=== PATIENT | male | born 1935 | race Two or more races ===

== ENCOUNTER 2019-06-05 06:30 | Emergency (ER) | payer BC ==
[~2019-06-05] VITALS: Ht 167.6 cm; Wt 81.6 kg
[2019-06-05 06:33] VITALS: BP 151/67
--- NOTE | 2019-06-05 06:33 | NUR ---
ED Nurse Note: Patient brought in by RA from [facility] c/o lower back pain S/P ground level fall from bed. Patient is moaning in pain. As per EMS, pt is taking eliquis 2.5mg BID. Denies LOC/ KO. Not in any distress.
--- NOTE | 2019-06-05 06:39 | NUR ---
ED Nurse Note: ERMD at bedside.
--- NOTE | 2019-06-05 06:41 | NUR ---
ED Nurse Note: IV line established. Blood and urine specimen collected and sent to lab.
[2019-06-05] MEDS ORDERED: MYRBETRIQ25 MG PO (06:42)
[2019-06-05] MEDS ORDERED: ZOCOR40 MG ORAL (06:42)
[2019-06-05] MEDS ORDERED: FOLGARD TABLET1 EAC1 PO (06:42)
[2019-06-05] MEDS ORDERED: ELIQUIS2.5 MG PO (06:42)
[2019-06-05] MEDS ORDERED: BUPROPION XL150 MG ORAL (06:42)
[2019-06-05] MEDS ORDERED: TRAZODONE HCL50 MG ORAL (06:42)
[2019-06-05] MEDS ORDERED: ESCITALOPRAM OX10 MG ORAL (06:42)
[2019-06-05] MEDS ORDERED: NIFEDIPINE ER90 M2 ORAL (06:42)
[2019-06-05] MEDS ORDERED: HYDRALAZINE HCL50 MG ORAL (06:42)
[2019-06-05] MEDS ORDERED: HYDRALAZINE HC100 MG ORAL (06:42)
[2019-06-05] MEDS ORDERED: Morphine Sulfate 2mg/ml Inj(IV/IM USE ONLY) IVP ONE (06:45)
[2019-06-05] MEDS ORDERED: Morphine Sulfate 4mg/ml Inj (IV USE ONLY) IVP ONE (07:00)
--- NOTE | 2019-06-05 07:09 | NUR ---
ED Nurse Note: Patient resting in bed, no s/s of acute distress.
--- NOTE | 2019-06-05 07:09 | NUR ---
HAND-OFF: Report given to Oumar GOULD. Endorsed plan of care.
[2019-06-05 07:12] LABS: BASOPHILS % (AUTO) 1.1 % (0.0-2.0); EOSINOPHILS % (AUTO) 1.8 % (0.0-3.0); HEMATOCRIT 31.2 % (42.0-52.0); HEMOGLOBIN 10.8 G/DL (14.2-18.0); LYMPHOCYTES % (AUTO) 12.8 % (20.0-45.0); MEAN CORPUSCULAR VOLUME 88 FL (80-99); MONOCYTES % (AUTO) 8.9 % (1.0-10.0); NEUTROPHILS % (AUTO) 75.4 % (45.0-75.0); PLATELET COUNT 189 K/UL (150-450); RED BLOOD COUNT 3.56 M/UL (4.70-6.10); RED CELL DISTRIBUTION WIDTH 12.3 % (11.6-14.8); WHITE BLOOD COUNT 6.8 K/UL (4.8-10.8)
[2019-06-05 07:15] LABS: ANION GAP 11 mmol/L (5-15); BLOOD UREA NITROGEN 39 mg/dL (7-18); CALCIUM 9.6 MG/DL (8.5-10.1); CARBON DIOXIDE 26 MMOL/L (21-32); CHLORIDE 107 MMOL/L (98-107); CREATININE 2.1 MG/DL (0.55-1.30); POTASSIUM 3.7 MMOL/L (3.5-5.1); SODIUM 143 MMOL/L (136-145)
[2019-06-05 07:18] LABS: INR 0.9 (0.9-1.1)
[2019-06-05 07:20] LABS: ALANINE AMINOTRANSFERASE 24 U/L (12-78); ALBUMIN 3.5 G/DL (3.4-5.0); ALBUMIN/GLOBULIN RATIO 1.2 (1.0-2.7); ALKALINE PHOSPHATASE 84 U/L (46-116); ASPARTATE AMINO TRANSFERASE 19 U/L (15-37); BILIRUBIN,TOTAL 0.5 MG/DL (0.2-1.0)
--- NOTE | 2019-06-05 08:11 | NUR ---
ED Nurse Note: Patient taken to CT
--- NOTE | 2019-06-05 08:40 | NUR ---
ED Nurse Note: Patient returned from CT
[2019-06-05 08:45] VITALS: BP 143/74
--- NOTE | 2019-06-05 09:12 | Diagnostic Imaging Report ---
EXAM: CT Lumbar Spine Without Intravenous Contrast CLINICAL HISTORY: FALL TECHNIQUE: Axial computed tomography images of the lumbar spine without intravenous contrast. CTDI is 21 mGy and DLP is 713 mGy-cm. One or more of the following dose reduction techniques were used: automated exposure control, adjustment of the mA and/or kV according to patient size, use of iterative reconstruction technique. COMPARISON: No relevant prior studies available. FINDINGS: Vertebrae: There is mild cortical lucency in the anterior vertebral body of T12 with mild loss of vertebral body height, suspicious for an acute 10% compression fracture of the inferior endplate. No additional fractures or malalignment is identified. If note is made of moderate sigmoid diverticulosis without diverticulitis. Discs/spinal canal/neural foramina: No acute findings. No spinal canal stenosis. Soft tissues: Unremarkable. IMPRESSION: Findings suspicious for an acute 10% inferior endplate compression fracture of T12. If indicated MRI may be useful for confirmation. No additional fractures malalignment or spinal stenosis identified.
--- NOTE | 2019-06-05 09:14 | Diagnostic Imaging Report ---
EXAM: CT Head Without Intravenous Contrast CLINICAL HISTORY: FALL TECHNIQUE: Axial computed tomography images of the head/brain without intravenous contrast. CTDI is 60 to mGy and DLP is 1394 mGy-cm. One or more of the following dose reduction techniques were used: automated exposure control, adjustment of the mA and/or kV according to patient size, use of iterative reconstruction technique. COMPARISON: No relevant prior studies available. FINDINGS: Brain: There is a chronic lacunar infarct in left basal ganglia. No acute infarcts identified. No hemorrhage. No significant white matter disease. Ventricles: Unremarkable. No ventriculomegaly. Bones/joints: Unremarkable. No acute fracture. Soft tissues: Unremarkable. Sinuses: Unremarkable as visualized. No acute sinusitis. Mastoid air cells: Unremarkable as visualized. No mastoid effusion. IMPRESSION: No acute findings in the head/brain.
--- NOTE | 2019-06-05 09:17 | Diagnostic Imaging Report ---
EXAM: CT Pelvis Without Intravenous Contrast CLINICAL HISTORY: FALL TECHNIQUE: Axial computed tomography images of the pelvis without intravenous contrast. CTDI is 7 to mGy and DLP is 540 mGy-cm. One or more of the following dose reduction techniques were used: automated exposure control, adjustment of the mA and/or kV according to patient size, use of iterative reconstruction technique. COMPARISON: No relevant prior studies available. FINDINGS: Bowel: Incidental note is made of mild sigmoid diverticulosis without diverticulitis. There is also mild constipation. No obstruction. Appendix: No findings to suggest acute appendicitis. Intraperitoneal space: Unremarkable. No free air. No significant fluid collection. Bladder: Unremarkable. No stones. Reproductive: Unremarkable as visualized. Bones/joints: No acute fracture. No dislocation. Soft tissues: Unremarkable. Lymph nodes: Unremarkable. No enlarged lymph nodes. IMPRESSION: 1. No evidence of pelvic fracture. 2. Mild constipation
--- NOTE | 2019-06-05 09:25 | NUR ---
ED Nurse Note: Dr. Smith at bedside
--- NOTE | 2019-06-05 09:36 | Emergency Room Report ---
History of Present Illness General Chief Complaint: Multiple Trauma/Fall Source: Patient, Medical Record Present Illness HPI 83-year-old male presents ED for evaluation. Brought in by EMS from senior care facility. Had a ground-level fall this morning. Landed on his back. Complaining of back and hip pain. Denies hitting his head or LOC. Is on Eliquis. Pain is 10 out of 10, sharp, nonradiating. No other aggravating relieving factors. Denies any other associated symptoms Allergies: Coded Allergies: No Known Allergies (Unverified , 06/05/19) Patient History Past Medical History: HTN Past Surgical History: none Pertinent Family History: none Social History: Denies: smoking, alcohol use, drug use Immunizations: UTD Reviewed Nursing Documentation: PMH: Agreed; PSxH: Agreed Nursing Documentation-PMH Hx Hypertension: Yes Review of Systems All Other Systems: negative except mentioned in HPI Physical Exam Vital Signs Date Time Temp Pulse Resp B/P (MAP) Pulse Ox O2 Delivery O2 Flow Rate FiO2 06/05/19 06:26 98.1 98 18 151/67 (95) 96 Room Air Sp02 EP Interpretation: reviewed, normal General Appearance: no apparent distress, alert, GCS 15, non-toxic Head: normocephalic, atraumatic Eyes: bilateral eye normal inspection, bilateral eye PERRL ENT: hearing grossly normal, normal pharynx, no angioedema, normal voice Neck: full range of motion, supple/symm/no masses Respiratory: chest non-tender, lungs clear, normal breath sounds, speaking full sentences Cardiovascular #1: regular rate, rhythm, no edema Cardiovascular #2: 2+ carotid (R), 2+ carotid (L), 2+ radial (R), 2+ radial (L) , 2+ dorsalis pedis (R), 2+ dorsalis pedis (L) Gastrointestinal: normal bowel sounds, non tender, soft, non-distended, no guarding, no rebound Rectal: deferred Genitourinary: normal inspection, vertebral tenderness Musculoskeletal: back normal, normal range of motion, gait/station normal, non- tender Neurologic: alert, motor strength/tone normal, oriented x3, sensory intact, responsive, speech normal Psychiatric: judgement/insight normal, memory normal, mood/affect normal, no suicidal/homicidal ideation Reflexes: 3+ bicep (R), 3+ bicep (L), 3+ tricep (R), 3+ tricep (L), 3+ knee (R) , 3+ knee (L) Skin: no rash Lymphatic: no adenopathy Medical Decision Making Diagnostic Impression: Primary Impression: Compression fracture of T12 vertebra Qualified Codes: S22.080A - Wedge compression fracture of t11-T12 vertebra, initial encounter for closed fracture Additional Impression: Fall Qualified Codes: W19.XXXA - Unspecified fall, initial encounter ER Course Hospital Course 83-year-old male presents with back pain status post fall Differential diagnosis includes-appendicitis, cholecystitis, small bowel obstruction, gastritis, Clinical course Patient placed on stretcher. After initial history and physical I ordered labs , pain medications and CTs Labs - no leukocytosis, BUN/Cr elevated, LFTs normal CT head and pelvis no acute process CT L-spine T12 copression fracture On reassessment symptoms improved. Pain resolved. Discussed findings with patient. I offered option for admission but patient states he would prefer to be discharged back to senior care facility. 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 Safe for discharge with close outpatient follow-up I feel this is a highly complex case requiring extensive working including EKG/ Rhythm strip, Xray/CT/US, Blood/urine lab work, repeat exams while in ED, and administration of strong opiates/narcotics for pain control, admission to hospital or close patient follow up. Diagnosis - compression fracture of T12, fall Stable and discharged to SNF. Followup with PMD/ortho. Return to ED if symptoms recur or worsen Labs Test 06/05/19 06:43 White Blood Count 6.8 K/UL (4.8-10.8) Red Blood Count 3.56 M/UL (4.70-6.10) Hemoglobin 10.8 G/DL (14.2-18.0) Hematocrit 31.2 % (42.0-52.0) Mean Corpuscular Volume 88 FL (80-99) Mean Corpuscular Hemoglobin 30.2 PG (27.0-31.0) Mean Corpuscular Hemoglobin Concent 34.5 G/DL (32.0-36.0) Red Cell Distribution Width 12.3 % (11.6-14.8) Platelet Count 189 K/UL (150-450) Mean Platelet Volume 6.7 FL (6.5-10.1) Neutrophils (%) (Auto) 75.4 % (45.0-75.0) Lymphocytes (%) (Auto) 12.8 % (20.0-45.0) Monocytes (%) (Auto) 8.9 % (1.0-10.0) Eosinophils (%) (Auto) 1.8 % (0.0-3.0) Basophils (%) (Auto) 1.1 % (0.0-2.0) Prothrombin Time 9.4 SEC (9.30-11.50) Prothromb Time International Ratio 0.9 (0.9-1.1) Activated Partial Thromboplast Time 27 SEC (23-33) Sodium Level 143 MMOL/L (136-145) Potassium Level 3.7 MMOL/L (3.5-5.1) Chloride Level 107 MMOL/L (98-107) Carbon Dioxide Level 26 MMOL/L (21-32) Anion Gap 11 mmol/L (5-15) Blood Urea Nitrogen 39 mg/dL (7-18) Creatinine 2.1 MG/DL (0.55-1.30) Estimat Glomerular Filtration Rate mL/min (>60) Glucose Level 90 MG/DL (74-106) Calcium Level 9.6 MG/DL (8.5-10.1) Total Bilirubin 0.5 MG/DL (0.2-1.0) Aspartate Amino Transf (AST/SGOT) 19 U/L (15-37) Alanine Aminotransferase (ALT/SGPT) 24 U/L (12-78) Alkaline Phosphatase 84 U/L (46-116) Total Protein 6.4 G/DL (6.4-8.2) Albumin 3.5 G/DL (3.4-5.0) Globulin 2.9 g/dL Albumin/Globulin Ratio 1.2 (1.0-2.7) CT/MRI/US Diagnostic Results CT/MRI/US Diagnostic Results #1: Imaging Test Ordered: CT head Impression No acute process CT/MRI/US Diagnostic Results #2: Imaging Test Ordered: CT L-spine Impression Vertebrae: There is mild cortical lucency in the anterior vertebral body of T12 with mild loss of vertebral body height, suspicious for an acute 10% compression fracture of the inferior endplate. No additional fractures or malalignment is identified. If note is made of moderate sigmoid diverticulosis without diverticulitis. Discs/spinal canal/neural foramina: No acute findings. No spinal canal stenosis. Soft tissues: Unremarkable. CT/MRI/US Diagnostic Results #3: Imaging Test Ordered: CT pelvis Impression No acute process Last Vital Signs Date Time Temp Pulse Resp B/P (MAP) Pulse Ox O2 Delivery O2 Flow Rate FiO2 06/05/19 08:45 98.0 77 18 143/74 100 Room Air Status: improved Disposition: XFER SNF Condition: Stable Scripts Lidocaine Patch* (Lidoderm Patch*) 1 Each Adh..patch 1 PATCH TOPIC DAILY, #7 PATCH 0 Refills Patch(es) may remain in place for up to 12 hours in any 24-hour period. Prov: Epi Smith MD 06/05/19 Acetaminophen With Codeine (T#3) (TYLENOL #3 TAB*) Y Tab 1 TAB ORAL Q8H PRN for For Pain for 3 Days, #12 TAB Prov: Epi Smith MD 06/05/19 Referrals: NON PHYSICIAN (PCP) Epi Smith MD Jun 05, 2019 09:36
[2019-06-05] MEDS ORDERED: LIDODERM700 M1 TOPIC (11:21)
[2019-06-05] MEDS ORDERED: ACETAMINOPHEN-1 EAC1 ORAL (11:21)
[2019-06-05 11:25] VITALS: BP 138/78
== END 2019-06-05 11:25 ==
LOC: EDBD 06:30 → EMR 07:32
DX: S22.080A Wedge compression fracture of T11-T12 vertebra, initial encounter for closed fracture (principal); W19.XXXA Unspecified fall, initial encounter; Y92.9 Unspecified place or not applicable; I10 Essential (primary) hypertension; Z79.01 Long term (current) use of anticoagulants
CPT/HCPCS: 36415; 70450; 72131; 72192; 80053; 85025; 85610; 85730; 96374; 99284; J2270

== ENCOUNTER 2019-08-06 01:50 | Inpatient (IN) | payer BC ==
[~2019-08-06] VITALS: Ht 167.6 cm; Wt 41.3 kg
[2019-08-06] VITALS (8 sets, daily range): BP systolic 137–155; BP diastolic 49–99
[~2019-08-06 01:50] MED LIST: ACETAMINOPHEN-1 EAC1 ORAL; BUPROPION XL150 MG ORAL; ELIQUIS2.5 MG PO; ESCITALOPRAM OX10 MG ORAL; FOLGARD TABLET1 EAC1 PO; HYDRALAZINE HC100 MG ORAL; HYDRALAZINE HCL50 MG ORAL; LIDODERM700 M1 TOPIC; MYRBETRIQ25 MG PO; NIFEDIPINE ER90 M2 ORAL; TRAZODONE HCL50 MG ORAL; ZOCOR40 MG ORAL
[2019-08-06] MEDS ORDERED: LORazepam Inj 2mg/ml 1ml IV ONE (02:00)
--- NOTE | 2019-08-06 02:00 | NUR ---
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 Pt appears anxious and restless at this time. Pt is aaox1 which is his baseline per EMS and breathing is labored. Pt placed on shelter monitor. Will continue to monitor.
--- NOTE | 2019-08-06 02:00 | NUR ---
ED Nurse Note: Per [facility] it is unknown if he hit his head, but no loss of consciousness was reported. Pt has abrasion to top of head and multiple bruises throughout extremities. Pt is able to move all extremities and has no complaints and does not grimace in pain.
--- NOTE | 2019-08-06 02:03 | Emergency Room Report ---
History of Present Illness General Chief Complaint: Multiple Trauma/Fall Source: Medical Record, EMS Present Illness HPI Disclaimer: Please note that this report is being documented using DRAGON technology. This can lead to erroneous entry secondary to incorrect interpretation by the dictating instrument. HPI: 83-year-old Portuguese-speaking male with a history of dementia, hypertension , hyperlipidemia and frequent falls presents for evaluation after a fall at his nursing facility. Apparently he has been having worsening falls over the past few weeks which are worse at night. EMS is unsure of the exact circumstances of today's fall. Unknown if there is head injury though there appears to be an abrasion over the top of his scalp. The patient is oriented to self only and can provide no significant history. He has no complaints. He has bruising over his upper extremities bilaterally but moving all extremities. He does not know why he is in the emergency department and has no complaints at this time. PMH: Dementia, hypertension, hyperlipidemia, frequent falls, CAD, strokes PSH: Reviewed documentation Allergies: Reviewed documentation Social Hx: Cannot obtain from patient COVID-19 risk:Contact w/high r: No COVID-19 risk:Travel to affect: No Has patient experienced spencer: No Allergies: Coded Allergies: No Known Allergies (Unverified , 06/05/19) Nursing Documentation-PMH Past Medical History: No History, Except For Hx Hypertension: Yes Review of Systems All Other Systems: limited - Due to dementia Physical Exam Vital Signs Date Time Temp Pulse Resp B/P (MAP) Pulse Ox O2 Delivery O2 Flow Rate FiO2 08/06/19 01:52 98.4 66 18 140/58 (85) 98 Room Air General: Awake, speaking nonsensically. Intermittent periods where he is lucid. No complaints. HEENT: Normocephalic, abrasion over the top of the scalp without hematoma or laceration. No tenderness or soft tissue swelling over the facial bones. EOMI. PERRLA. No septal hematoma. No malocclusion Neck: Supple, trachea midline. Arrives without cervical collar Chest Wall: No tenderness, no deformity, no crepitus CV: RRR. S1 and S2 normal. No murmur appreciated Resp: Normal work of breathing. No cough, wheezing or crackles appreciated Abd: Soft, nontender, nondistended Skin: Intact. Surgical scars over the torso are clean dry and intact. There are extensive bruising over the upper and lower extremities bilaterally. No skin breakdown MSK: Normal tone and bulk. No obvious deformity. Moving all extremities. No tenderness on palpation even over the areas of ecchymosis. Neuro: Awake, oriented to self only. Mostly nonsensical speech. Periods of lucency where he answers questions appropriately. Cannot provide any history. Medical Decision Making Diagnostic Impression: Primary Impression: Dehydration Additional Impressions: Falls frequently Anemia UTI (urinary tract infection) ER Course 83-year-old male presents for evaluation of frequent falls from a [facility] facility. He had 2 falls this evening unknown whether or not there was head injury. Patient appears to be on Eliquis according to his medication list. He is awake though oriented to self only. This may be his baseline as reported by EMS; will contact nursing facility for further history. Will obtain screening labs and send patient for noncontrast CT scan of the head. The injuries to the upper extremities appear old and are at different stages of healing. He does not appear to have any pain on palpation or manipulation of the extremities over the ecchymotic regions. Can advance work-up as needed. Patient is DNR with limited interventions only Laboratory Tests Test 08/06/19 02:00 08/06/19 02:55 White Blood Count 15.3 K/UL (4.8-10.8) H Red Blood Count 2.85 M/UL (4.70-6.10) L Hemoglobin 8.6 G/DL (14.2-18.0) L Hematocrit 25.1 % (42.0-52.0) L Mean Corpuscular Volume 88 FL (80-99) Mean Corpuscular Hemoglobin 30.2 PG (27.0-31.0) Mean Corpuscular Hemoglobin Concent 34.1 G/DL (32.0-36.0) Red Cell Distribution Width 13.9 % (11.6-14.8) Platelet Count 205 K/UL (150-450) Mean Platelet Volume 6.4 FL (6.5-10.1) L Neutrophils (%) (Auto) % (45.0-75.0) Lymphocytes (%) (Auto) % (20.0-45.0) Monocytes (%) (Auto) % (1.0-10.0) Eosinophils (%) (Auto) % (0.0-3.0) Basophils (%) (Auto) % (0.0-2.0) Differential Total Cells Counted 100 Neutrophils % (Manual) 93 % (45-75) H Lymphocytes % (Manual) 3 % (20-45) L Monocytes % (Manual) 4 % (1-10) Eosinophils % (Manual) 0 % (0-3) Basophils % (Manual) 0 % (0-2) Band Neutrophils 0 % (0-8) Platelet Estimate Adequate Platelet Morphology Normal Hypochromasia 2+ Anisocytosis 1+ Sodium Level 138 MMOL/L (136-145) Potassium Level 4.8 MMOL/L (3.5-5.1) Chloride Level 107 MMOL/L (98-107) Carbon Dioxide Level 19 MMOL/L (21-32) L Anion Gap 12 mmol/L (5-15) Blood Urea Nitrogen 54 mg/dL (7-18) H Creatinine 2.8 MG/DL (0.55-1.30) H Estimated Glomerular Filtration Rate 21.7 mL/min (>60) Glucose Level 115 MG/DL (74-106) H Calcium Level 9.4 MG/DL (8.5-10.1) Urine Color Pale yellow Urine Appearance Slightly cloudy Urine pH 5 (4.5-8.0) Urine Specific Badger 1.020 (1.005-1.035) Urine Protein 3+ (NEGATIVE) H Urine Glucose (UA) Negative (NEGATIVE) Urine Ketones 1+ (NEGATIVE) H Urine Blood 5+ (NEGATIVE) H Urine Nitrite Negative (NEGATIVE) Urine Bilirubin Negative (NEGATIVE) Urine Urobilinogen Normal MG/DL (0.0-1.0) Urine Leukocyte Esterase 1+ (NEGATIVE) H Urine RBC Tntc /HPF (0 - 0) H Urine WBC 5-10 /HPF (0 - 0) H Urine Squamous Epithelial Cells Occasional /LPF Urine Bacteria Occasional /HPF (NONE) Microbiology Date/Time Source Procedure Growth Status 08/06/19 04:45 Nasal Nares - Final Complete 08/06/19 04:45 Nasal Nares - Final Complete EKG Diagnostic Results EKG Time: 04:00 Rate: normal Rhythm: other - Atrial fibrillation ST Segments: no acute changes Other Impression Atrial fibrillation with wide QRS. No ST segment elevation noted. T wave inversions in the precordial leads. Rhythm Strip Diag. Results Rhythm Strip Time: 04:00 EP Interpretation: yes Rate: 70s Rhythm: no PVC's Chest X-Ray Diagnostic Results Chest X-Ray Diagnostic Results : Chest X-Ray Ordered: Yes # of Views/Limited/Complete: 1 View Indication: Other - URI EP Interpretation: Yes Interpretation: no consolidation, no effusion, no pneumothorax, other - Increased vascularity bilaterally Impression: No acute disease Electronically Signed by: Electronically signed by Dr. Checo Pierre CT/MRI/US Diagnostic Results CT/MRI/US Diagnostic Results : Impression Final Report EXAM: CT Head Without Intravenous Contrast CLINICAL HISTORY: INJ TECHNIQUE: Axial computed tomography images of the head/brain without intravenous contrast. CTDI is 53 mGy and DLP is 1179 mGy-cm. One or more of the following dose reduction techniques were used: automated exposure control, adjustment of the mA and/or kV according to patient size, use of iterative reconstruction technique. COMPARISON: 06/05/2019 FINDINGS: Brain: No hemorrhage, herniation, or mass effect. Chronic microvascular ischemic changes. Old lacunar infarct in the left periventricular white matter. Ventricles: No hydrocephalus. Age related cerebral volume loss. Bones/joints: Unremarkable. Soft tissues: Unremarkable. Sinuses: Unremarkable. Mastoid air cells: Clear. IMPRESSION: No acute hemorrhage, hydrocephalus, or mass effect. Radiologist: Alan Pa MD Electronically Signed: 08/06/19 02:42 Study ready at 02:41 and initial results transmitted at 02:42 Reevaluation Time: 03:50 Last Vital Signs Date Time Temp Pulse Resp B/P (MAP) Pulse Ox O2 Delivery O2 Flow Rate FiO2 08/06/19 01:52 98.4 66 18 140/58 (85) 98 Room Air Reevaluation Impression CT of the head does not show evidence of an acute injury or mass. Findings are consistent with chronic microvascular disease and an old lacunar infarct consistent with the patient's history. Labs show an elevation in his baseline creatinine and BUN consistent with mild dehydration. He will receive IV fluids. Discussed these findings with his PMD Dr. Reyes, who states he was also recently treated for an upper respiratory tract infection. Chest x-ray was obtained showing some increased vascularity bilaterally. Will start antibiotics for possible early urinary tract infection or occult pulmonary infection. Flu swab is pending. Patient is in stable condition. Will admit to Dr. Keller at his PMDs request Disposition: ADMITTED INPATIENT Condition: Serious Checo Pierre MD Aug 06, 2019 02:03
[2019-08-06 02:20] LABS: ANION GAP 12 mmol/L (5-15); BLOOD UREA NITROGEN 54 mg/dL (7-18); CALCIUM 9.4 MG/DL (8.5-10.1); CARBON DIOXIDE 19 MMOL/L (21-32); CHLORIDE 107 MMOL/L (98-107); CREATININE 2.8 MG/DL (0.55-1.30); POTASSIUM 4.8 MMOL/L (3.5-5.1); SODIUM 138 MMOL/L (136-145)
--- NOTE | 2019-08-06 02:20 | NUR ---
ED Nurse Note: Pt taken to CT.
[2019-08-06] MEDS ORDERED: VOLTAREN100 G1 TP (02:23)
[2019-08-06] MEDS ORDERED: LISINOPRIL20 MG ORAL (02:23)
[2019-08-06] MEDS ORDERED: PERIGUARD OINT100 GM TP (02:23)
[2019-08-06] MEDS ORDERED: CALCIUM 600 +1 EAC2 PO (02:23)
[2019-08-06] MEDS ORDERED: FLONASE1 SPRAYS NASAL (02:23)
[2019-08-06] MEDS ORDERED: SALONPAS PATCH1 EAC1 TP (02:23)
[2019-08-06] MEDS ORDERED: SENNA8.6 M2 PO (02:23)
[2019-08-06] MEDS ORDERED: VITAMIN B-12500 MC3 SL (02:23)
[2019-08-06] MEDS ORDERED: ADVAIR 500-501 EACH INH (02:23)
[2019-08-06] MEDS ORDERED: SERTRALINE HCL25 MG ORAL (02:23)
[2019-08-06] MEDS ORDERED: FUROSEMIDE20 M1 ORAL (02:23)
[2019-08-06] MEDS ORDERED: FAMOTIDINE20 MG ORAL (02:23)
[2019-08-06] MEDS ORDERED: ACETAMINOPHEN500 M3 ORAL (02:23)
[2019-08-06] MEDS ORDERED: ALBUTEROL2.5 MG/3 M INH (02:23)
[2019-08-06] MEDS ORDERED: ZOFRAN4 M3 ORAL (02:23)
[2019-08-06] MEDS ORDERED: STOOL SOFTENER250 MG PO (02:23)
[2019-08-06] MEDS ORDERED: MULTIVITAMINS1 EAC8 ORAL (02:23)
[2019-08-06] MEDS ORDERED: ASPIR 8181 MG ORAL (02:23)
[2019-08-06 02:39] LABS: HEMATOCRIT 25.1 % (42.0-52.0); HEMOGLOBIN 8.6 G/DL (14.2-18.0); MEAN CORPUSCULAR VOLUME 88 FL (80-99); PLATELET COUNT 205 K/UL (150-450); RED BLOOD COUNT 2.85 M/UL (4.70-6.10); RED CELL DISTRIBUTION WIDTH 13.9 % (11.6-14.8); WHITE BLOOD COUNT 15.3 K/UL (4.8-10.8)
--- NOTE | 2019-08-06 02:43 | Diagnostic Imaging Report ---
EXAM: CT Head Without Intravenous Contrast CLINICAL HISTORY: INJ TECHNIQUE: Axial computed tomography images of the head/brain without intravenous contrast. CTDI is 53 mGy and DLP is 1179 mGy-cm. One or more of the following dose reduction techniques were used: automated exposure control, adjustment of the mA and/or kV according to patient size, use of iterative reconstruction technique. COMPARISON: 06/05/2019 FINDINGS: Brain: No hemorrhage, herniation, or mass effect. Chronic microvascular ischemic changes. Old lacunar infarct in the left periventricular white matter. Ventricles: No hydrocephalus. Age related cerebral volume loss. Bones/joints: Unremarkable. Soft tissues: Unremarkable. Sinuses: Unremarkable. Mastoid air cells: Clear. IMPRESSION: No acute hemorrhage, hydrocephalus, or mass effect.
--- NOTE | 2019-08-06 02:50 | NUR ---
ED Nurse Note: Pt returned from CT.
--- NOTE | 2019-08-06 03:00 | NUR ---
ED Nurse Note: Pt is sleeping at this time and appears comfortable and not restless s/p receiving ativan per ERMD order. No acute distress noted. Will continue to monitor patient.
[2019-08-06 03:04] LABS: APPEARANCE,URINE SLIGHTLY CLOUDY; BILIRUBIN, URINE NEGATIVE (NEGATIVE); COLOR,URINE PALE YELLOW; GLUCOSE, URINE (UA) NEGATIVE (NEGATIVE); KETONES,URINE 1+ (NEGATIVE); LEUKOCYTE ESTERASE ,URINE 1+ (NEGATIVE); NITRITE,URINE NEGATIVE (NEGATIVE); PH,URINE 5 (4.5-8.0); PROTEIN,URINE 3+ (NEGATIVE); UROBILINOGEN,URINE NORMAL MG/DL (0.0-1.0)
--- NOTE | 2019-08-06 04:18 | Diagnostic Imaging Report ---
EXAM: XR Chest, 1 View CLINICAL HISTORY: Cough. TECHNIQUE: Frontal view of the chest. COMPARISON: None. FINDINGS: Lungs: Probable early pulmonary edema mid lower lung zones bilaterally. Subsegmental atelectasis at the left lung base. Pleural space: Small right pleural effusion. No pneumothorax. Heart: Cardiomegaly. Mediastinum: Unremarkable. Bones/joints: Sternotomy wires are noted in place and are intact. Osteopenia. IMPRESSION: Findings most suggestive of incipient congestive heart failure. Clinical correlation is advised.
[2019-08-06] MEDS ORDERED: cefTRIAXone 1 GM in NS 55 ML IVPB ONE (04:30)
--- NOTE | 2019-08-06 05:00 | NUR ---
ED Nurse Note: No acute distress noted. VSS. Pt is sleeping at this time with no signs of pain or being uncomfortable. No respiratory distress. Will continue to monitor pt.
--- NOTE | 2019-08-06 06:15 | NUR ---
ED Nurse Note: Report given to LUIS FERNANDO Lei.
--- NOTE | 2019-08-06 06:40 | NUR ---
ED Nurse Note: Pt is stable for transport to tele unit per ERMD. Pt is sleeping at this time with stable vital signs. No acute distress noted. Pt transported to unit via gurney, connected to monitor with 2 RNs. Pt belongings sent to floor with pt.
--- NOTE | 2019-08-06 06:45 | NUR ---
ED Nurse Note: Upon transferring pt to bed from [facility] on tele unit pt was woken up and became restless and agitated with labored breathing similar to presentation upon ED arrival. Pt placed on 2L oxygen via nc and oxygen saturation was 97%. Pt BP was 149/58. Pt was arousable to name. Pt appeared more relaxed after oxygen placement. No sign of acute distress upon leaving the floor after transferring pt. ERMD aware of pt status for entire duration of pt in ED and determined stable.
--- NOTE | 2019-08-06 08:05 | NUR ---
NURSE NOTES: Spoke to Dr. Jade, he ordered to change physician to Dr. Echavarria, order were fax and spoke james ER admitting.
[2019-08-06] MEDS ORDERED: Albuterol ud Inhalation HHN PRN (08:15)
[2019-08-06] MEDS ORDERED: Acetaminophen 500mg (ES) tab ORAL SCH (08:15)
[2019-08-06 08:54] LABS: HEMATOCRIT 25.3 % (42.0-52.0); HEMOGLOBIN 8.3 G/DL (14.2-18.0); MEAN CORPUSCULAR VOLUME 89 FL (80-99); PLATELET COUNT 146 K/UL (150-450); RED BLOOD COUNT 2.85 M/UL (4.70-6.10); RED CELL DISTRIBUTION WIDTH 14.3 % (11.6-14.8); WHITE BLOOD COUNT 9.5 K/UL (4.8-10.8)
[2019-08-06] MEDS ORDERED: Eliquis 2.5mg tablet ORAL SCH (09:00)
[2019-08-06 09:18] LABS: ANION GAP 13 mmol/L (5-15); BLOOD UREA NITROGEN 57 mg/dL (7-18); CALCIUM 8.9 MG/DL (8.5-10.1); CARBON DIOXIDE 20 MMOL/L (21-32); CHLORIDE 111 MMOL/L (98-107); CREATININE 2.6 MG/DL (0.55-1.30); POTASSIUM 4.2 MMOL/L (3.5-5.1); SODIUM 144 MMOL/L (136-145)
[2019-08-06 09:34] LABS: ALANINE AMINOTRANSFERASE 51 U/L (12-78); ALBUMIN 3.2 G/DL (3.4-5.0); ALBUMIN/GLOBULIN RATIO 1.2 (1.0-2.7); ALKALINE PHOSPHATASE 92 U/L (46-116); ASPARTATE AMINO TRANSFERASE 65 U/L (15-37); BILIRUBIN,TOTAL 0.4 MG/DL (0.2-1.0); CHOLESTEROL 94 MG/DL (< 200); CREATINE KINASE 497 U/L (26-308); FERRITIN 140 NG/ML (8-388); GAMMA GLUTAMYL TRANSPEPTIDASE 78 U/L (5-85); HDL CHOLESTEROL 56 MG/DL (40-60); PHOSPHORUS 4.8 MG/DL (2.5-4.9); TRIGLYCERIDES 38 MG/DL (30-150)
[2019-08-06 09:54] LABS: % IRON SATURATION 9 % (15-50); IRON 24 ug/dL (50-175); TOTAL IRON BINDING CAPACITY 281 ug/dL (250-450)
[2019-08-06] MEDS: D5NS 1,000 ML IV SCH (09:54)
[2019-08-06] MEDS: Pantoprazole Inj IVP SCH ×2 (09:54→21:32)
[2019-08-06] MEDS: Docusate 250mg cap ORAL SCH (09:54)
[2019-08-06] MEDS: Aspirin EC 81mg tab ORAL SCH (09:54)
--- NOTE | 2019-08-06 11:29 | Consultation ---
DATE OF CONSULTATION: 08/06/2019 PULMONARY CONSULTATION CONSULTING PHYSICIAN: Kimani Hahn M.D. HISTORY OF PRESENT ILLNESS: This is an 83-year-old male with history of hypertension, dementia, hyperlipidemia, who came to the hospital after a fall. He was noted to have a small abrasion on top of the scalp. The patient cannot provide a history. I have been asked to provide pulmonary consultation. PAST MEDICAL HISTORY: Dementia, hypertension, hyperlipidemia, frequent falls, CAD, CVA. PREVIOUS SURGERIES: None. ALLERGIES: None. HOME MEDICATIONS: Reviewed and reconciled in the chart. REVIEW OF SYSTEMS: Not obtainable. PHYSICAL EXAMINATION: GENERAL: Reveals a elderly male with small abrasion on his scalp. VITAL SIGNS: Blood pressure 140/60, heart rate is 84, respirations 18, O2 saturation 100% on room air. HEENT: Unremarkable. LUNGS: Clear breath sounds bilaterally. ABDOMEN: Soft. EXTREMITIES: There is no edema. NEUROLOGIC: Nonfocal. LABORATORY DATA: Lab testing shows normal CBC now with a hemoglobin 8.3, yesterday white count was 15.3. Chemistry is notable for creatinine 2.6. CK 497. Urinalysis shows hematuria. IMAGING STUDIES: The patient underwent a chest x-ray, which showed evidence for mild CHF with atelectasis, left lung base. IMPRESSION: 1. Pleural effusion, right side. 2. Atelectasis. 3. Pulmonary edema, questionable. 4. Hypertension. 5. Hyperlipidemia. 6. . DISCUSSION: Currently, the patient is saturating well on room air. We will not advocate any further diuresis. . We will follow as senior online marketing manager. Kimani Hahn M.D. DR: MERARY JOB#: [id number] CC:
--- NOTE | 2019-08-06 12:19 | Consultation ---
Consult Note Consult Note Mr. Marinelli is a patient in the [facility] that that I was called to assume the primary care . It appears that the patient was being taken care of by in the past so I assume the role of stitch bonding machine tender on this patient 83-year-old Swiss-speaking male with a history of dementia, hypertension, hyperlipidemia and frequent falls presents for evaluation after a fall at his nursing facility. Apparently he has been having worsening falls over the past few weeks which are worse at night. EMS is unsure of the exact circumstances of today's fall. Unknown if there is head injury though there appears to be an abrasion over the top of his scalp. The patient is oriented to self only and can provide no significant history. He has no complaints. He has bruising over his upper extremities bilaterally but moving all extremities. He does not know why he is in the emergency department and has no complaints at this time. PMH: Dementia, hypertension, hyperlipidemia, frequent falls, CAD, strokes Allergies: Reviewed documentation Social Hx: Cannot obtain from patient COVID-19 risk:Contact w/high r: No COVID-19 risk:Travel to affect: No Has patient experienced spencer: No Allergies: Coded Allergies: No Known Allergies (Unverified , 06/05/19) Patient examined. Discussed with RN. Patient is not a historian. Rashawn reviewed. . Assessment/Plan Frequent falls Acute renal failure with underlying dehydration Anemia, underlying etiology unclear UTI (urinary tract infection) Toxic metabolic encephalopathy We will keep n.p.o. until mental status improves ST evaluation Low IV hydration 2D echocardiogram Kidney ultrasound Monitor renal parameters Avoid nephrotoxic's Antibiotics for UTI Continue per consultants Juan Jade MD Aug 06, 2019 12:19
--- NOTE | 2019-08-06 13:15 | NUR ---
NURSE NOTES: Patient noted with Zero output on his condom catheter. Bladder distended and patient frowned when palpated. Patient encouraged to void but having difficulty,initially passed small amount of reddish urine with small clot then turned to tea colored with total of 5o cc urine output. Bladder scan performed and noted 330 ML or residual. Call out to Dr. Jade, awaiting call back. will follow
--- NOTE | 2019-08-06 13:26 | NUR ---
NURSE NOTES: Noted reddish urine with clots and turned to dark yellow, bladder scan was done and noted 330 ml of urine retention. Spoke to Dr. Jade and ordered to insert doshi catheter.
--- NOTE | 2019-08-06 13:47 | NUR ---
NURSE NOTES: Received report from LUIS FERNANDO Gautam. Patient is alert and oriented x 1. Patient is on nasal cannula with no respiratory distress noted. Patient has IV on right AC G-20 saline lock, that is patent and intact. Safety measures in place, bed in locked and lowest position, bed alarm is on, side rails up x 2. Will call Dr. Jade for admission orders. Addendum: 08/06/19 at 1351 by Gin Perez RN Late entry, patient received at 0730
--- NOTE | 2019-08-06 14:00 | NUR ---
NURSE NOTES: Trevino catheter was inserted, no resistance noted during the insertion. Drained dark yellow urine, well tolerated. Will continue to monitor urine output.
[2019-08-06] MEDS: HydrALAZINE 50mg tab ORAL SCH ×2 (14:30→21:30)
--- NOTE | 2019-08-06 15:55 | NUR ---
NURSE NOTES: Patient's urine output is still bloody, Dr. Echavarria made aware and received order to irrigate doshi catheter. 100 cc of sterile water used to irrigate patient's catheter, still draining bloody urine but no blood clots was noted.
--- NOTE | 2019-08-06 16:49 | NUR ---
NURSE NOTES: Received order from Dr. Echavarria to hold eliquis, and may do venous duplex scan. If venous duplex is negative, may have SCD's for DVT prophylaxis.
--- NOTE | 2019-08-06 19:32 | NUR ---
Received report from Gin Grover RN. Pt is in stable condition. Will continue to monitor.
[2019-08-06] MEDS: Sennosides 8.6mg tab ORAL SCH (21:30)
[2019-08-06] MEDS: Acetaminophen 500mg (ES) tab ORAL PRN (21:31)
[2019-08-06] MEDS: Tamsulosin 0.4mg cap ORAL SCH (21:31)
[2019-08-06] MEDS: TraZODone 50mg tab ORAL SCH (21:32)
[2019-08-06] MEDS ORDERED: Morphine Sulfate 2mg/ml Inj(IV/IM USE ONLY) IVP PRN (22:30)
[2019-08-07] VITALS: BP 155/69
[2019-08-07] MEDS: LORazepam Inj 2mg/ml 1ml IV PRN ×2 (01:07→20:01)
[2019-08-07 03:28] LABS: HEMATOCRIT 23.6 % (42.0-52.0); HEMOGLOBIN 7.9 G/DL (14.2-18.0); MEAN CORPUSCULAR VOLUME 89 FL (80-99); PLATELET COUNT 147 K/UL (150-450); RED BLOOD COUNT 2.65 M/UL (4.70-6.10); RED CELL DISTRIBUTION WIDTH 13.8 % (11.6-14.8); WHITE BLOOD COUNT 9.5 K/UL (4.8-10.8)
[2019-08-07 04:00] VITALS: BP 189/88
[2019-08-07] MEDS: D5NS 1,000 ML IV SCH ×2 (04:31→23:21)
[2019-08-07] MEDS: cefTRIAXone 1 GM in D5W 55 ML IVPB SCH (04:39)
[2019-08-07] MEDS: HydrALAZINE 50mg tab ORAL SCH ×4 (06:00→20:41)
--- NOTE | 2019-08-07 06:30 | NUR ---
NURSE NOTES: Pt BP is 192/90, pt is unable to tolerate PO meds (Hydralazine @ 0600), Pt given hydralzine via PIV as ordered. MD aware of pt intolerance to PO meds. Will continue to monitor.
[2019-08-07 07:11] LABS: BASOPHILS % (AUTO) 0.6 % (0.0-2.0); EOSINOPHILS % (AUTO) 0.3 % (0.0-3.0); HEMATOCRIT 24.4 % (42.0-52.0); LYMPHOCYTES % (AUTO) 4.5 % (20.0-45.0); MEAN CORPUSCULAR VOLUME 89 FL (80-99); MONOCYTES % (AUTO) 10.1 % (1.0-10.0); NEUTROPHILS % (AUTO) 84.5 % (45.0-75.0); PLATELET COUNT 144 K/UL (150-450); RED BLOOD COUNT 2.74 M/UL (4.70-6.10); RED CELL DISTRIBUTION WIDTH 14.1 % (11.6-14.8); WHITE BLOOD COUNT 9.3 K/UL (4.8-10.8)
--- NOTE | 2019-08-07 07:41 | NUR ---
NURSE NOTES: Received report from LUIS FERNANDO Oliver. Patient is asleep, alert and oriented x 1-2 Connected to nasal cannula at 2 Lpm with no respiratory distress noted at this time. Iv site on right AC G-20 saline lock, and IV site on right FA g-20 WITH RUNNING IVF of d5NS @ 50cc/hour. Patient resting comfortably on bed, patient is bed bound, safety measures in placed. Side rails up x 2, bed in locked and lowest position. Will continue plan of care.
--- NOTE | 2019-08-07 07:48 | NUR ---
HAND-OFF: Report given to Yi Francis RN. Pt in stable condition.
[2019-08-07 08:00] VITALS: BP 161/61
[2019-08-07] MEDS: Docusate 250mg cap ORAL SCH (09:00)
[2019-08-07] MEDS: Aspirin EC 81mg tab ORAL SCH (09:00)
[2019-08-07] MEDS: Pantoprazole Inj IVP SCH ×2 (09:13→20:42)
--- NOTE | 2019-08-07 10:42 | Pulmonology Progress Note ---
Assessment/Plan Assessment/Plan IMPRESSION: 1. Pleural effusion, right side. 2. Atelectasis. 3. Pulmonary edema, questionable. 4. Hypertension. 5. Hyperlipidemia. DISCUSSION: Currently, the patient is saturating well on room air or low flow O2. I will not advocate any further diuresis. I will follow as sonography technician. Kimani Hahn M.D. Subjective Interval Events: None new Constitutional: Reports: no symptoms HEENT: Repors: no symptoms Respiratory: Reports: no symptoms Cardiovascular: Reports: no symptoms Gastrointestinal/Abdominal: Reports: no symptoms Allergies: Coded Allergies: No Known Allergies (Unverified , 06/05/19) Objective Last 24 Hour Vital Signs Date Time Temp Pulse Resp B/P (MAP) Pulse Ox O2 Delivery O2 Flow Rate FiO2 08/07/19 09:00 2.0 08/07/19 09:00 Nasal Cannula 2.0 08/07/19 08:00 98.4 74 17 161/61 (94) 95 08/07/19 08:00 66 08/07/19 07:45 69 20 97 Nasal Cannula 2.0 28 08/07/19 07:40 97 Nasal Cannula 2.0 28 08/07/19 06:56 192/98 08/07/19 04:39 189/100 08/07/19 04:00 2.0 08/07/19 04:00 98.2 67 18 189/88 (121) 97 08/07/19 04:00 79 08/07/19 00:00 64 08/07/19 00:00 2.0 08/07/19 00:00 98.2 67 18 155/69 (97) 97 08/06/19 21:30 153/99 08/06/19 21:00 Room Air 08/06/19 20:18 97 Nasal Cannula 2.0 28 08/06/19 20:18 68 18 97 Nasal Cannula 2.0 28 08/06/19 20:00 96.6 67 18 153/99 (117) 97 08/06/19 20:00 2.0 08/06/19 20:00 65 08/06/19 17:41 71 150/68 08/06/19 16:00 62 08/06/19 16:00 2.0 08/06/19 16:00 97.4 71 18 150/68 (95) 97 08/06/19 15:00 150/68 (95) 08/06/19 14:30 174/89 08/06/19 13:06 Nasal Cannula 2.0 08/06/19 12:00 2.0 08/06/19 12:00 59 08/06/19 12:00 96.1 67 20 151/58 (89) 98 Intake and Output 08/06/19 08/07/19 19:00 07:00 Intake Total 1400 ml Output Total 1800 ml 800 ml Balance -400 ml -800 ml Intake Oral 1400 ml Output Urine Total 1800 ml 800 ml # Voids 3 # Bowel Movements 1 General Appearance: no acute distress HEENT: normocephalic Respiratory/Chest: chest wall non-tender Cardiovascular: normal peripheral pulses Abdomen: normal bowel sounds Microbiology Date/Time Source Procedure Growth Status 08/06/19 04:45 Nasal Nares - Final Complete 08/06/19 04:45 Nasal Nares - Final Complete 08/06/19 04:00 Rectum Received Laboratory Tests 08/06/19 13:50: Urine Random Sodium 79 08/07/19 02:50: White Blood Count 9.5, Red Blood Count 2.65L, Hemoglobin 7.9L, Hematocrit 23.6L , Mean Corpuscular Volume 89, Mean Corpuscular Hemoglobin 29.7, Mean Corpuscular Hemoglobin Concent 33.4, Red Cell Distribution Width 13.8, Platelet Count 147L, Mean Platelet Volume 6.3L, Neutrophils (%) (Auto) , Lymphocytes (%) (Auto) , Monocytes (%) (Auto) , Eosinophils (%) (Auto) , Basophils (%) (Auto) , Differential Total Cells Counted 100, Neutrophils % (Manual) 84H, Lymphocytes % (Manual) 8L, Monocytes % (Manual) 8, Eosinophils % (Manual) 0, Basophils % ( Manual) 0, Band Neutrophils 0, Platelet Estimate DecreasedL, Platelet Morphology Normal, Hypochromasia 1+ 08/07/19 05:50: White Blood Count 9.3, Red Blood Count 2.74L, Hemoglobin 8.0L, Hematocrit 24.4L , Mean Corpuscular Volume 89, Mean Corpuscular Hemoglobin 29.1, Mean Corpuscular Hemoglobin Concent 32.7, Red Cell Distribution Width 14.1, Platelet Count 144L, Mean Platelet Volume 6.1L, Neutrophils (%) (Auto) 84.5H, Lymphocytes (%) (Auto) 4.5L, Monocytes (%) (Auto) 10.1H, Eosinophils (%) (Auto) 0.3, Basophils (%) (Auto) 0.6 Current Medications Medications (Trade) Dose Ordered Sig/Kristine Route PRN Reason Start Time Stop Time Status Last Admin Dose Admin Acetaminophen (Tylenol) 500 mg Q6H PRN ORAL Mild Pain/Temp > 100.5 08/06/19 08:56 09/05/19 08:55 08/06/19 21:31 Albuterol Sulfate (Proventil) 2.5 mg Q4H PRN HHN Shortness of Breath 08/06/19 08:15 08/11/19 08:14 Aspirin (Ecotrin) 81 mg DAILY ORAL 08/06/19 09:00 09/20/19 08:59 08/06/19 09:54 Ceftriaxone Sodium 1 gm/ Dextrose 55 ml @ 110 mls/hr Q24H IVPB 08/07/19 05:00 08/14/19 04:59 08/07/19 04:39 Dextrose/Sodium Chloride 1,000 ml @ 50 mls/hr Q20H IV 08/06/19 08:15 09/05/19 08:14 08/07/19 04:31 Docusate Sodium (Colace) 250 mg DAILY ORAL 08/06/19 09:00 09/05/19 08:59 08/06/19 09:54 Escitalopram Oxalate (Lexapro) 5 mg DAILY ORAL 08/06/19 09:00 09/05/19 08:59 08/06/19 09:54 Hydralazine HCl (Apresoline) 10 mg Q4H PRN IV BP over 160 systolic 08/06/19 12:30 11/04/19 12:29 08/07/19 04:39 Hydralazine HCl (Apresoline) 50 mg EVERY 8 HOURS ORAL 08/06/19 14:00 11/04/19 13:59 08/07/19 06:56 Iron Sucrose 100 mg/Sodium Chloride 55 ml @ 200 mls/hr BEDTIME IV 08/06/19 21:00 08/15/19 21:17 08/06/19 21:46 Lorazepam (Ativan 2mg/ml 1ml) 1 mg Q4H PRN IV For Anxiety or agitation 08/06/19 22:30 08/13/19 22:29 08/07/19 01:07 Morphine Sulfate (Morphine Sulfate) 1 mg Q4HR PRN IVP Pain 08/06/19 22:30 08/13/19 22:29 08/06/19 23:01 Nifedipine (Procardia XL) 30 mg BID ORAL 08/06/19 18:00 09/05/19 17:59 08/06/19 17:41 Pantoprazole (Protonix) 40 mg EVERY 12 HOURS IVP 08/06/19 09:00 09/05/19 08:59 08/07/19 09:13 Sennosides (Senokot) 8.6 mg BEDTIME ORAL 08/06/19 21:00 09/05/19 20:59 08/06/19 21:30 Tamsulosin HCl (Flomax) 0.4 mg BEDTIME ORAL 08/06/19 21:00 09/05/19 20:59 08/06/19 21:31 Trazodone HCl (Desyrel) 50 mg BEDTIME ORAL 08/06/19 21:00 09/05/19 20:59 08/06/19 21:32 Kimani Hahn MD Aug 07, 2019 10:42
[2019-08-07] MEDS: Acetaminophen 500mg (ES) tab ORAL PRN (10:47)
--- NOTE | 2019-08-07 11:37 | Nephrology Progress Note ---
Assessment/Plan Problem List: (1) Renal failure (ARF), acute on chronic (2) Falls frequently (3) UTI (urinary tract infection) Assessment: and hematuria (4) Anemia (5) Dehydration (6) Encephalopathy due to metabolic factor or toxin Assessment Frequent falls Acute renal failure with underlying dehydration Anemia, underlying etiology unclear UTI (urinary tract infection) Toxic metabolic encephalopathy Plan We will keep n.p.o. until mental status improves ST evaluation Low IV hydration 2D echocardiogram Kidney ultrasound Monitor renal parameters Avoid nephrotoxic's Antibiotics for UTI Continue per consultants Subjective ROS Limited/Unobtainable: Yes Objective Objective Last 24 Hour Vital Signs Date Time Temp Pulse Resp B/P (MAP) Pulse Ox O2 Delivery O2 Flow Rate FiO2 08/07/19 09:00 2.0 08/07/19 09:00 Nasal Cannula 2.0 08/07/19 08:00 98.4 74 17 161/61 (94) 95 08/07/19 08:00 66 08/07/19 07:45 69 20 97 Nasal Cannula 2.0 28 08/07/19 07:40 97 Nasal Cannula 2.0 28 08/07/19 06:56 192/98 08/07/19 04:39 189/100 08/07/19 04:00 2.0 08/07/19 04:00 98.2 67 18 189/88 (121) 97 08/07/19 04:00 79 08/07/19 00:00 64 08/07/19 00:00 2.0 08/07/19 00:00 98.2 67 18 155/69 (97) 97 08/06/19 21:30 153/99 08/06/19 21:00 Room Air 08/06/19 20:18 97 Nasal Cannula 2.0 28 08/06/19 20:18 68 18 97 Nasal Cannula 2.0 28 08/06/19 20:00 96.6 67 18 153/99 (117) 97 08/06/19 20:00 2.0 08/06/19 20:00 65 08/06/19 17:41 71 150/68 08/06/19 16:00 62 08/06/19 16:00 2.0 08/06/19 16:00 97.4 71 18 150/68 (95) 97 08/06/19 15:00 150/68 (95) 08/06/19 14:30 174/89 3/21/20 13:06 Nasal Cannula 2.0 08/06/19 12:00 2.0 08/06/19 12:00 59 08/06/19 12:00 96.1 67 20 151/58 (89) 98 Intake and Output 08/06/19 08/07/19 19:00 07:00 Intake Total 1400 ml Output Total 1800 ml 800 ml Balance -400 ml -800 ml Intake Oral 1400 ml Output Urine Total 1800 ml 800 ml # Voids 3 # Bowel Movements 1 Current Medications Medications (Trade) Dose Ordered Sig/Kristine Route PRN Reason Start Time Stop Time Status Last Admin Dose Admin Acetaminophen (Tylenol) 500 mg Q6H PRN ORAL Mild Pain/Temp > 100.5 08/06/19 08:56 09/05/19 08:55 08/07/19 10:47 Albuterol Sulfate (Proventil) 2.5 mg Q4H PRN HHN Shortness of Breath 08/06/19 08:15 08/11/19 08:14 Aspirin (Ecotrin) 81 mg DAILY ORAL 08/06/19 09:00 09/20/19 08:59 08/06/19 09:54 Ceftriaxone Sodium 1 gm/ Dextrose 55 ml @ 110 mls/hr Q24H IVPB 08/07/19 05:00 08/14/19 04:59 08/07/19 04:39 Dextrose/Sodium Chloride 1,000 ml @ 50 mls/hr Q20H IV 08/06/19 08:15 09/05/19 08:14 08/07/19 04:31 Docusate Sodium (Colace) 250 mg DAILY ORAL 08/06/19 09:00 09/05/19 08:59 08/06/19 09:54 Escitalopram Oxalate (Lexapro) 5 mg DAILY ORAL 08/06/19 09:00 09/05/19 08:59 08/06/19 09:54 Hydralazine HCl (Apresoline) 10 mg Q4H PRN IV BP over 160 systolic 08/06/19 12:30 11/04/19 12:29 08/07/19 04:39 Hydralazine HCl (Apresoline) 50 mg EVERY 8 HOURS ORAL 08/06/19 14:00 11/04/19 13:59 08/07/19 06:56 Iron Sucrose 100 mg/Sodium Chloride 55 ml @ 200 mls/hr BEDTIME IV 08/06/19 21:00 08/15/19 21:17 08/06/19 21:46 Lorazepam (Ativan 2mg/ml 1ml) 1 mg Q4H PRN IV For Anxiety or agitation 08/06/19 22:30 08/13/19 22:29 08/07/19 01:07 Morphine Sulfate (Morphine Sulfate) 1 mg Q4HR PRN IVP Pain 08/06/19 22:30 08/13/19 22:29 08/06/19 23:01 Nifedipine (Procardia XL) 30 mg BID ORAL 08/06/19 18:00 09/05/19 17:59 08/06/19 17:41 Pantoprazole (Protonix) 40 mg EVERY 12 HOURS IVP 08/06/19 09:00 09/05/19 08:59 08/07/19 09:13 Sennosides (Senokot) 8.6 mg BEDTIME ORAL 08/06/19 21:00 09/05/19 20:59 08/06/19 21:30 Tamsulosin HCl (Flomax) 0.4 mg BEDTIME ORAL 08/06/19 21:00 09/05/19 20:59 08/06/19 21:31 Trazodone HCl (Desyrel) 50 mg BEDTIME ORAL 08/06/19 21:00 09/05/19 20:59 08/06/19 21:32 Laboratory Tests 08/06/19 13:50: Urine Random Sodium 79 08/07/19 02:50: White Blood Count 9.5, Red Blood Count 2.65L, Hemoglobin 7.9L, Hematocrit 23.6L , Mean Corpuscular Volume 89, Mean Corpuscular Hemoglobin 29.7, Mean Corpuscular Hemoglobin Concent 33.4, Red Cell Distribution Width 13.8, Platelet Count 147L, Mean Platelet Volume 6.3L, Neutrophils (%) (Auto) , Lymphocytes (%) (Auto) , Monocytes (%) (Auto) , Eosinophils (%) (Auto) , Basophils (%) (Auto) , Differential Total Cells Counted 100, Neutrophils % (Manual) 84H, Lymphocytes % (Manual) 8L, Monocytes % (Manual) 8, Eosinophils % (Manual) 0, Basophils % ( Manual) 0, Band Neutrophils 0, Platelet Estimate DecreasedL, Platelet Morphology Normal, Hypochromasia 1+ 08/07/19 05:50: White Blood Count 9.3, Red Blood Count 2.74L, Hemoglobin 8.0L, Hematocrit 24.4L , Mean Corpuscular Volume 89, Mean Corpuscular Hemoglobin 29.1, Mean Corpuscular Hemoglobin Concent 32.7, Red Cell Distribution Width 14.1, Platelet Count 144L, Mean Platelet Volume 6.1L, Neutrophils (%) (Auto) 84.5H, Lymphocytes (%) (Auto) 4.5L, Monocytes (%) (Auto) 10.1H, Eosinophils (%) (Auto) 0.3, Basophils (%) (Auto) 0.6 Height (Feet): 5 Height (Inches): 6.00 Weight (Pounds): 160 General Appearance: no apparent distress, lethargic, confused Cardiovascular: normal rate Respiratory/Chest: decreased breath sounds Abdomen: soft Juan Jade MD Aug 07, 2019 11:37
[2019-08-07 12:00] VITALS: BP 145/55
--- NOTE | 2019-08-07 12:30 | History and Physical Report ---
DATE OF ADMISSION: 08/06/2019 CHIEF COMPLAINT: Fall, acute renal failure, encephalopathy. HISTORY OF PRESENT ILLNESS: The patient is an 83-year-old male, known to me from the senior living facility. He previously resided at [facility] and was discharged from the [facility] and transferred to an assisted living. He apparently sustained a fall while at the assisted living, was transferred to the emergency room. On evaluation there, his head CT was negative for any type of bleed or stroke. He had evidence of acute renal failure and was hypertensive. His UA showed too numerous to count rbc's. He was also noted to be anemic. The patient is now admitted for further evaluation and care. PAST MEDICAL HISTORY: As above. PAST SURGICAL HISTORY: Unknown. CURRENT MEDICATIONS: Reconciled and reviewed. ALLERGIES: None. FAMILY HISTORY: None. SOCIAL HISTORY: There is no known history of tobacco, ethanol, or drugs. REVIEW OF SYSTEMS: From the patient is unobtainable as he is confused. PHYSICAL EXAMINATION: VITAL SIGNS: Temperature 96.4, pulse 67, respirations 20, and blood pressure 143/61. GENERAL: The patient is well-developed, no apparent distress. He is somewhat somnolent and withdrawn. He has opened his eyes, but is mostly nonverbal. HEENT: His pupils are equal, round, and reactive to light. Oropharynx clear. NECK: Supple. No adenopathy noted. No jugular venous distention. HEART: Regular rate and rhythm. LUNGS: Clear. ABDOMEN: Soft, nontender, nondistended. EXTREMITIES: Without clubbing, cyanosis, or edema. NEUROLOGIC: The patient is unable to comply with the neurologic exam. He does move his upper extremities and he does respond, but does not answer any questions. LABORATORY DATA: Sodium 138, potassium 4.8, BUN 54, creatinine 2.8. White count was 15, hemoglobin 8.6. UA showed too numerous to count rbc's. CT head was negative. Chest x-ray showed CHF. ASSESSMENT: This is an elderly male with a history of dementia, hypertension, hypertensive heart disease, admitted with acute renal failure and a possible fall versus syncopal episode. PLAN: 1. Cautious hydration. 2. Monitor volume status closely. 3. Empiric antibiotic therapy. 4. possible pneumonia. 5. Consider renal ultrasound if renal function does not improve. 6. We will try to obtain records from the assisted living. Iggy Echavarria M.D. DR: SALBADOR JOB#: [id number] CC:
--- NOTE | 2019-08-07 14:00 | NUR ---
NURSE NOTES: Patient kept on pulling his catheter out, also catheter has been draining bloody urine with blood clots. Secured order to Dr. Echavarria for restrains on both wrist.
--- NOTE | 2019-08-07 14:10 | NUR ---
NURSE NOTES: Drained almost 300 ml of bloody urine, bladder irrigation was done. Patient was pale looking, BP of 145/55. Informed Dr. Echavarria, ordered stat CBC. Will follow up.
--- NOTE | 2019-08-07 14:20 | NUR ---
NURSE NOTES: Trevino catheter was changed, bladder irrigation was done. Informed Dr. Echavarria, received an order for consult to Dr. Calzada. Urology cart prepared to omar.
[2019-08-07 15:00] LABS: HEMATOCRIT 23.3 % (42.0-52.0); HEMOGLOBIN 7.5 G/DL (14.2-18.0); MEAN CORPUSCULAR VOLUME 90 FL (80-99); PLATELET COUNT 168 K/UL (150-450); RED BLOOD COUNT 2.59 M/UL (4.70-6.10); RED CELL DISTRIBUTION WIDTH 14.3 % (11.6-14.8)
--- NOTE | 2019-08-07 15:05 | NUR ---
NURSE NOTES: Doshi catheter was replaced by Dr. Calzada, using [id number]-20. Ordered doshi catheter irrigation every 2 hours and PRN. Still drainging bloody urine with blood clots. Relayed CBC result to Dr. Echavarria.
[2019-08-07] MEDS ORDERED: Morphine Sulfate 2mg/ml Inj(IV/IM USE ONLY) IVP PRN (15:45)
[2019-08-07 16:00] VITALS: BP 161/78
--- NOTE | 2019-08-07 16:00 | NUR ---
NURSE NOTES: Hemoglobin level was 7.5 from 8.0. Received an order from Dr. Echavarria to trab Addendum: 08/07/19 at 1726 by Gin Perez RN transfuse 1 unit PRBC, called Nilda Vitor to get a consent for transfusion, he's patient's next of kin but just left a message and informed him about the procedure. Will follow-up.
--- NOTE | 2019-08-07 16:28 | NUR ---
NURSE NOTES: Spoke with Lucy of [facility] regarding patients POA Vitor Munguia. Per staff they only have one number of Mr. Munguia which is the same as the one we have on file. She Advised to call caregiver Brandt Rueda . Spoke with Brandt stated Mr. Munguia is out of town he said he will contact him and have him call [facility] as soon as possible. Mr. Rueda aware we needed POA for blood transfusion consent. Will follow.
--- NOTE | 2019-08-07 16:59 | NUR ---
NURSE NOTES: Dr. Salas on the floor doing rounds made aware patient unable to contact POA regarding Blood transfusion consent. stated may obtain consent from Patients caregiver.
--- NOTE | 2019-08-07 18:00 | NUR ---
NURSE NOTES: Patient is agitated and complaining of pain. Morphine 0.5 mg was given at 1530. Scanned the medication but wasn't able to scan it. Called pharmacy and spoke to Tricia to inform her about what happened.
[2019-08-07] MEDS: Morphine Sulfate 2mg/ml Inj(IV/IM USE ONLY) IVP PRN (18:06)
--- NOTE | 2019-08-07 18:45 | Consultation ---
DATE OF CONSULTATION: 08/07/2019 CONSULTING PHYSICIAN: Miki Calzada M.D. REFERRING PHYSICIAN: Iggy Echavarria M.D. REASON FOR CONSULTATION: For evaluation of hematuria. HISTORY OF PRESENT ILLNESS: This is an 83-year-old male who is a resident of a detention facility. He was admitted to the hospital because of fall and was noted to have acute kidney injury, encephalopathy. Trevino catheter was placed at the time of admission. Apparently, the patient was confused and he pulled on the catheter and gross hematuria was noted. Urology evaluation has been requested. I am not able to get any history from the patient. Most of the history was obtained from the chart. PAST MEDICAL HISTORY: Significant for above. Also history of coronary artery disease and hypertension and GERD. PAST SURGICAL HISTORY: Unknown. CURRENT MEDICATIONS: Here in the hospital, the patient is on Rocephin, lorazepam, Desyrel, Flomax, Senokot, Procardia, hydralazine, Naprosyn, Protonix, Colace, Lexapro, Proventil. Apparently, he was on Eliquis and Ecotrin, which has been stopped. ALLERGIES: No known drug allergies. SOCIAL HISTORY: Again, the patient lives in a [facility]. Smoking history is unknown. REVIEW OF SYSTEMS: Unable to obtain. FAMILY HISTORY: Unable to obtain. PHYSICAL EXAMINATION: GENERAL: Elderly male, confused. VITAL SIGNS: Temperature is 97.5, blood pressure is 160/88, pulse is 70, respirations are 18. HEENT: Normocephalic. NECK: Supple. ABDOMEN: Soft. GENITOURINARY: Reveals normal phallus. His Trevino is in place with grossly bloody urine. EXTREMITIES: No clubbing or cyanosis. LABORATORY DATA: Admission UA showed too numerous to count rbc's, 5 to 10 wbc's, 2+ protein. White count is 11.0, hemoglobin 7.5, platelets 168. BUN is 57, creatinine 2.6. I believe his baseline creatinine is closer to 2. DIAGNOSTIC IMAGING STUDIES: Reviewed. I do not see any renal imaging. IMPRESSION: 1. Gross hematuria, presumably secondary to Trevino trauma. 2. BPH. 3. Urinary retention. 4. Neurogenic bladder. 5. Pyuria. 6. Proteinuria. 7. Renal insufficiency, which appears to be acute on chronic. 8. Rule out urethral stricture. PLAN AND DISCUSSION: The patient was evaluated at the bedside. It appeared that the existing Trevino catheter was not in the bladder. I attempted to irrigate it, it was unsuccessful. I did attempt to push it back into the bladder and there was resistance and I believe it may have been held up at possibly stricture possibly of the prostatic median lobe. The catheter was removed. The urethra was gently dilated and I was able to pass a 20-Croatian coude catheter into the bladder. There was return of blood-tinged urine. I then hand irrigated the catheter with 500 mL of normal saline. The urine slowly cleared. There were minimal clots. I did not see any active bleeding. The above was discussed with the nursing staff. For now, I would leave the Trevino catheter indwelling. The nursing staff will hand irrigate it every few hours and p.r.n. as needed. Anticoagulation has already been held and he is to continue with Flomax as ordered. I will also add finasteride 5 mg daily. We will also check a renal ultrasound and the patient's renal function will need to be monitored. He is to also continue with antibiotics as ordered. Any other recommendations will be forthcoming. Thank you for this consultation. Miki Calzada M.D. DR: ROBERT JOB#: [id number] CC: Rodrigo Quezada M.D. ; FAX#: [phone]
--- NOTE | 2019-08-07 18:50 | NUR ---
NURSE NOTES: Started blood transfusion, verify the order with LUIS FERNANDO [place]. Hooked normal saline for flushing, monitored for adverse reaction. Will continue to monitor.
--- NOTE | 2019-08-07 19:26 | NUR ---
HAND-OFF: Report given to Danielle Mcmanus RN. Blood transfusion is going on, Patient is restless, plan of care endorsed.
--- NOTE | 2019-08-07 19:53 | NUR ---
Dr Echavarria was paged regarding patient's IRON for this evening. Iniquired whether or not he wants it given. Patient is receiving 1 unit PRBC at this time. Awaiting callback.
[2019-08-07 20:00] VITALS: BP 130/52
[2019-08-07] MEDS: Sennosides 8.6mg tab ORAL SCH (20:41)
[2019-08-07] MEDS: Tamsulosin 0.4mg cap ORAL SCH (20:42)
[2019-08-07] MEDS: TraZODone 50mg tab ORAL SCH (20:42)
--- NOTE | 2019-08-07 20:46 | NUR ---
Dr Echavarria ordered do not give Iron dose this evening.
--- NOTE | 2019-08-07 22:34 | NUR ---
ONE UNIT Blood finished transfusing at 21:50, no adverse reactions. Vital signs stable at 142/59, T 98.4, HR 65. RR 16. SpO2 97%. Blood bag was returned to the laboratory blood bank.
[2019-08-08] VITALS: BP 141/63
--- NOTE | 2019-08-08 02:44 | Progress Note ---
DATE: 08/07/2019 CARDIOLOGY PROGRESS NOTE SUBJECTIVE: The patient remains confused. Blood pressure parameters are increasing. He remains on IV fluid hydration. He has not been out of bed. Monitor reveals the possibility of atrial fibrillation, but more likely junctional rhythm with bifascicular block. PHYSICAL EXAMINATION: VITAL SIGNS: Blood pressure 161/78, heart rate 74, respiratory rate 18, and afebrile. LUNGS: Clear. CARDIAC: Regular rhythm and rate. Normal S1 and S2. A 1/6 systolic murmur at apex. ABDOMEN: Soft and nontender. EXTREMITIES: No edema. LABORATORY DATA: White count 11 and hemoglobin 7.5. Potassium 4.2, BUN 57, and creatinine 2.6. LDL cholesterol 29 and total cholesterol 94. TSH 1.4. B12 and folate normal. IMPRESSION: 1. Acute renal failure. 2. Hypovolemia and dehydration. 3. Recurring falls. 4. Valvular cardiomyopathy. 5. Acute on chronic diastolic congestive heart failure. 6. Junctional cardiac rhythm and paroxysmal atrial fibrillation. 7. 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 9. Hypertensive heart disease with labile blood pressure. PLAN: 1. EP evaluation. 2. Possible indication or assessment for pacemaker in view of advanced conduction system disease and recurring falls. 3. Dr. Reyes will assess. 4. Continue cautious hydration. 5. Continue titration of antihypertensives. 6. Monitoring orthostatics. 7. Avoid tight blood pressure control. Gamaliel Salas M.D. DR: TOLU JOB#: [id number] CC:
--- NOTE | 2019-08-08 03:15 | Consultation ---
DATE OF CONSULTATION: 08/06/2019 CARDIOLOGY CONSULTATION CONSULTING PHYSICIAN: Gamaliel Salas M.D. REQUESTING PHYSICIAN: Iggy Echavarria M.D. REASON FOR CONSULTATION: Abnormal electrocardiogram and cardiac rhythm in the setting of recurring falls. HISTORY OF PRESENT ILLNESS: This is an 83-year-old male with underlying dementia and valvular heart disease who has been having frequent falls over the past few weeks, presented following a fall earlier this morning. The patient has limited historical data available, but the patient was noted to have an abrasion at the top of his scalp. The patient has some bruising over his upper extremities. He is confused and only oriented to person, unable to give any other data. PAST MEDICAL HISTORY: 1. Cerebrovascular disease with dementia. 2. 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 3. Hyperlipidemia. 4. Paroxysmal atrial fibrillation. 5. Depressive disorder. 6. Coronary artery disease. 7. History of mitral valve repair. 8. Osteoarthritis. 9. Prostatic hypertrophy. 10. Cerebrovascular accident with cerebral artery occlusion. 11. Macular degeneration. 12. History of intestinal intussusception. 13. Compression fracture. 14. History of radius fracture. 15. Tachy-leilani syndrome. ALLERGIES: Include lactose. MEDICATIONS: Prior to admission, reviewed and reconciled. FAMILY HISTORY: Noncontributory. SOCIAL HISTORY: No record of smoking, alcohol, or substance abuse. Advanced directives, DNR. PHYSICAL EXAMINATION: VITAL SIGNS: Blood pressure 140/60, pulse 66, respirations 18, and afebrile. HEENT: Conjunctivae are pink. Oropharynx clear. NECK: Supple. No jugular venous distention. LUNGS: Clear breath sounds. CARDIAC: Regular rhythm and rate. Normal S1 and S2. A 1/6 systolic murmur at apex. ABDOMEN: Soft and nontender. EXTREMITIES: Without edema. LABORATORY DATA: White count 15, hemoglobin 8.6, and platelets 205,000. Sodium 138, potassium 4.8, bicarb 19, BUN 54, and creatinine 2.8. Urinalysis, too numerous to count red cells and 5 to [address] scan of the brain with no acute process. Chest x-ray with no acute process. EKG reveals a junctional rhythm with right bundle and left anterior superior hemiblock and occasional atrial premature beats. IMPRESSION: Recurring falls, likely multifactorial. The possibility of arrhythmias must be considered in view of his underlying structural heart disease. Other considerations include orthostasis and dehydration, mechanical etiology such as osteoarthritis and spinal stenosis and cerebrovascular limitations due to prior stroke. RECOMMENDATIONS: 1. Echocardiogram. 2. Cardiac monitoring. 3. Titrate cardiovascular regimen to optimize blood pressure parameters. 4. Hydrate cautiously. 5. No diuretics. 6. Check orthostatics. 7. Avoid anticoagulation in view of high risk of falls in this patient despite risk of cardioembolic events as well. 8. We will follow closely with you during this hospital course. Gamaliel Salas M.D. DR: Jg JOB#: [id number] CC:
[2019-08-08 04:00] VITALS: BP 148/60
[2019-08-08] MEDS: cefTRIAXone 1 GM in D5W 55 ML IVPB SCH (04:20)
[2019-08-08] MEDS: HydrALAZINE 50mg tab ORAL SCH ×3 (05:04→20:22)
[2019-08-08] MEDS: LORazepam Inj 2mg/ml 1ml IV PRN ×3 (05:06→19:32)
--- NOTE | 2019-08-08 06:49 | NUR ---
Patient running A Flutter on Telelmetry reading. EKG was done on patient and it showed Sinus Rhythm. Will endorse to tell the Physician this morning.
--- NOTE | 2019-08-08 07:05 | NUR ---
NURSE NOTES: Received report from Fortino/LUIS FERNANDO, Patient is awake, Lying semi-hampton's on bed, resting comfortably. On room 2L nasal canula, No acute distress/SOB noted. Breathing unlabored and even. French speaking, IV on Right FA And Right AC, intact, no bleeding or infiltration noted, D5NS running @50cc/hr. Trevino draining well to gravity. Bed in low position and locked, Bed alarm engaged, Side rails up x3, Call light within reach. Encouraged to use call light when needed. Will continue plan of care.
[2019-08-08 08:00] VITALS: BP 164/84
--- NOTE | 2019-08-08 08:59 | General Progress Note ---
Assessment/Plan Problem List: (1) CHF (congestive heart failure) ICD Codes: I50.9 - Heart failure, unspecified SNOMED: 06490846 (2) Renal failure (ARF), acute on chronic ICD Codes: N17.9 - Acute kidney failure, unspecified; N18.9 - Chronic kidney disease, unspecified SNOMED: 547553229 (3) Encephalopathy due to metabolic factor or toxin SNOMED: 655930472 (4) Gross hematuria ICD Codes: R31.0 - Gross hematuria SNOMED: 948860604 (5) Falls frequently ICD Codes: R29.6 - Repeated falls SNOMED: 090701858 (6) Dehydration ICD Codes: E86.0 - Dehydration SNOMED: 62846704 (7) UTI (urinary tract infection) ICD Codes: N39.0 - Urinary tract infection, site not specified SNOMED: 88133845 (8) Anemia ICD Codes: D64.9 - Anemia, unspecified SNOMED: 077039260 Status: stable, not improved Assessment/Plan: cont current rx repeat cxr o2 resp care iv abx anxiolytics IVF with caution doshi restraints for safety Subjective ROS Limited/Unobtainable: No Constitutional: Reports: malaise, weakness HEENT: Reports: no symptoms Cardiovascular: Reports: no symptoms Respiratory: Reports: cough, shortness of breath Gastrointestinal/Abdominal: Reports: no symptoms Genitourinary: Reports: no symptoms Neurologic/Psychiatric: Reports: anxiety Endocrine: Reports: no symptoms Hematologic/Lymphatic: Reports: anemia Allergies: Coded Allergies: No Known Allergies (Unverified , 06/05/19) Subjective no events. more alert. remains anxious and agitated, trying to get out of bed. no fevers or chills. on o2 and ivf. doshi replaced by . no bleeding Objective Last 24 Hour Vital Signs Date Time Temp Pulse Resp B/P (MAP) Pulse Ox O2 Delivery O2 Flow Rate FiO2 08/08/19 08:00 97.3 67 20 164/84 (110) 99 08/08/19 08:00 2.0 08/08/19 05:04 148/60 08/08/19 04:00 2.0 08/08/19 04:00 98.4 62 20 148/60 (89) 98 08/08/19 04:00 73 3/23/20 00:00 98.6 62 20 141/63 (89) 98 08/08/19 00:00 70 08/07/19 21:00 Nasal Cannula 2.0 08/07/19 20:41 161/78 08/07/19 20:00 2.0 08/07/19 20:00 98.5 80 20 130/52 (78) 98 08/07/19 19:54 78 18 98 Nasal Cannula 2.0 28 08/07/19 19:54 98 Nasal Cannula 2.0 28 08/07/19 18:07 74 161/78 08/07/19 16:00 2.0 08/07/19 16:00 98.1 80 20 161/78 (105) 98 08/07/19 16:00 74 08/07/19 14:46 160/88 08/07/19 12:00 97.5 70 18 145/55 (85) 96 08/07/19 12:00 2.0 08/07/19 12:00 67 08/07/19 09:00 2.0 08/07/19 09:00 Nasal Cannula 2.0 Intake and Output 08/07/19 08/08/19 19:00 07:00 Intake Total 50 ml Output Total 650 ml 500 ml Balance -600 ml -500 ml Intake Oral 50 ml Output Urine Total 650 ml 500 ml # Voids 1 Laboratory Tests 08/07/19 14:30: White Blood Count 11.0H, Red Blood Count 2.59L, Hemoglobin 7.5L, Hematocrit 23.3L, Mean Corpuscular Volume 90, Mean Corpuscular Hemoglobin 29.2, Mean Corpuscular Hemoglobin Concent 32.5, Red Cell Distribution Width 14.3, Platelet Count 168, Mean Platelet Volume 7.2, Neutrophils (%) (Auto) , Lymphocytes (%) ( Auto) , Monocytes (%) (Auto) , Eosinophils (%) (Auto) , Basophils (%) (Auto) , Differential Total Cells Counted 100, Neutrophils % (Manual) 84H, Lymphocytes % (Manual) 10L, Monocytes % (Manual) 6, Eosinophils % (Manual) 0, Basophils % ( Manual) 0, Band Neutrophils 0, Platelet Estimate Adequate, Platelet Morphology Normal, Red Blood Cell Morphology Normal Height (Feet): 5 Height (Inches): 6.00 Weight (Pounds): 160 General Appearance: WD/WN, alert, confused Neck: normal alignment, supple, normal inspection Cardiovascular: normal rate, regular rhythm Respiratory/Chest: chest wall non-tender, lungs clear, normal breath sounds, no respiratory distress, no accessory muscle use Abdomen: normal bowel sounds, non tender, soft, no organomegaly, no mass Edema: no edema noted Arm (L), no edema noted Arm (R), no edema noted Leg (L), no edema noted Leg (R), no edema noted Pedal (L), no edema noted Pedal (R), no edema noted Generalized Neurologic: alert, responsive, disoriented Iggy Echavarria MD Aug 08, 2019 08:59
--- NOTE | 2019-08-08 09:11 | Urology Progress Note ---
Assessment/Plan Status: stable, not improved Assessment/Plan: 1. Gross hematuria, presumably secondary to Doshi trauma. 2. BPH. 3. Urinary retention. 4. Neurogenic bladder. 5. Pyuria. 6. Proteinuria. 7. Renal insufficiency, which appears to be acute on chronic. 8. Rule out urethral stricture. monitor clinically maintain doshi, placed 08/06 hand irrigated and do PRN, minimal clots cont flomax and proscar abx as ordered off anticoagulation restraints cysto at some point voiding trial later d/w nursing staff Subjective Allergies: Coded Allergies: No Known Allergies (Unverified , 06/05/19) Subjective all noted, confused, nurses hand irrigated doshi Objective Last 24 Hour Vital Signs Date Time Temp Pulse Resp B/P (MAP) Pulse Ox O2 Delivery O2 Flow Rate FiO2 08/08/19 08:00 97.3 67 20 164/84 (110) 99 08/08/19 08:00 2.0 08/08/19 05:04 148/60 08/08/19 04:00 2.0 08/08/19 04:00 98.4 62 20 148/60 (89) 98 08/08/19 04:00 73 08/08/19 00:00 98.6 62 20 141/63 (89) 98 08/08/19 00:00 70 08/07/19 21:00 Nasal Cannula 2.0 08/07/19 20:41 161/78 08/07/19 20:00 2.0 08/07/19 20:00 98.5 80 20 130/52 (78) 98 08/07/19 19:54 78 18 98 Nasal Cannula 2.0 28 08/07/19 19:54 98 Nasal Cannula 2.0 28 08/07/19 18:07 74 161/78 08/07/19 16:00 2.0 08/07/19 16:00 98.1 80 20 161/78 (105) 98 08/07/19 16:00 74 08/07/19 14:46 160/88 08/07/19 12:00 97.5 70 18 145/55 (85) 96 08/07/19 12:00 2.0 08/07/19 12:00 67 Intake and Output 08/07/19 08/08/19 19:00 07:00 Intake Total 50 ml Output Total 650 ml 500 ml Balance -600 ml -500 ml Intake Oral 50 ml Output Urine Total 650 ml 500 ml # Voids 1 Microbiology Date/Time Source Procedure Growth Status 08/06/19 04:45 Nasal Nares - Final Complete 08/06/19 04:45 Nasal Nares - Final Complete 08/06/19 04:45 Rectum VRE Culture - Final NO VANCOMYCIN RESISTANT ENTEROCOCCUS ... Complete Current Medications Medications (Trade) Dose Ordered Sig/Kristine Route PRN Reason Start Time Stop Time Status Last Admin Dose Admin Acetaminophen (Tylenol) 500 mg Q6H PRN ORAL Mild Pain/Temp > 100.5 08/06/19 08:56 09/05/19 08:55 08/07/19 10:47 Albuterol Sulfate (Proventil) 2.5 mg Q4H PRN HHN Shortness of Breath 08/06/19 08:15 08/11/19 08:14 Ceftriaxone Sodium 1 gm/ Dextrose 55 ml @ 110 mls/hr Q24H IVPB 08/07/19 05:00 08/14/19 04:59 08/08/19 04:20 Dextrose/Sodium Chloride 1,000 ml @ 50 mls/hr Q20H IV 08/06/19 08:15 09/05/19 08:14 08/07/19 23:21 Docusate Sodium (Colace) 250 mg DAILY ORAL 08/06/19 09:00 09/05/19 08:59 08/06/19 09:54 Escitalopram Oxalate (Lexapro) 5 mg DAILY ORAL 08/06/19 09:00 09/05/19 08:59 08/06/19 09:54 Finasteride (Proscar) 5 mg DAILY ORAL 08/07/19 15:45 11/05/19 15:44 08/07/19 16:33 Hydralazine HCl (Apresoline) 10 mg Q4H PRN IV BP over 160 systolic 08/06/19 12:30 11/04/19 12:29 08/07/19 04:39 Hydralazine HCl (Apresoline) 50 mg EVERY 8 HOURS ORAL 08/06/19 14:00 11/04/19 13:59 08/08/19 05:04 Iron Sucrose 100 mg/Sodium Chloride 55 ml @ 200 mls/hr BEDTIME IV 08/06/19 21:00 3/30/20 21:17 08/06/19 21:46 Lorazepam (Ativan 2mg/ml 1ml) 1 mg Q4H PRN IV For Anxiety or agitation 08/06/19 22:30 08/13/19 22:29 08/08/19 05:06 Morphine Sulfate (Morphine Sulfate) 0.5 mg Q4HR PRN IVP Severe Pain (Pain Scale 7-10) 08/07/19 15:45 08/14/19 15:44 08/07/19 18:06 Nifedipine (Procardia XL) 30 mg BID ORAL 08/06/19 18:00 09/05/19 17:59 08/07/19 18:07 Pantoprazole (Protonix) 40 mg EVERY 12 HOURS IVP 08/06/19 09:00 09/05/19 08:59 08/07/19 20:42 Sennosides (Senokot) 8.6 mg BEDTIME ORAL 08/06/19 21:00 09/05/19 20:59 08/07/19 20:41 Tamsulosin HCl (Flomax) 0.4 mg BEDTIME ORAL 08/06/19 21:00 09/05/19 20:59 08/07/19 20:42 Trazodone HCl (Desyrel) 50 mg BEDTIME ORAL 08/06/19 21:00 09/05/19 20:59 08/07/19 20:42 Laboratory Tests 08/07/19 14:30: White Blood Count 11.0H, Red Blood Count 2.59L, Hemoglobin 7.5L, Hematocrit 23.3L, Mean Corpuscular Volume 90, Mean Corpuscular Hemoglobin 29.2, Mean Corpuscular Hemoglobin Concent 32.5, Red Cell Distribution Width 14.3, Platelet Count 168, Mean Platelet Volume 7.2, Neutrophils (%) (Auto) , Lymphocytes (%) ( Auto) , Monocytes (%) (Auto) , Eosinophils (%) (Auto) , Basophils (%) (Auto) , Differential Total Cells Counted 100, Neutrophils % (Manual) 84H, Lymphocytes % (Manual) 10L, Monocytes % (Manual) 6, Eosinophils % (Manual) 0, Basophils % ( Manual) 0, Band Neutrophils 0, Platelet Estimate Adequate, Platelet Morphology Normal, Red Blood Cell Morphology Normal Height (Feet): 5 Height (Inches): 6.00 Weight (Pounds): 160 Objective exam stable abdomen soft, doshi indwelling, urine denia/blood tinged Miki Calzada MD Aug 08, 2019 09:11
[2019-08-08] MEDS: Pantoprazole Inj IVP SCH ×2 (09:43→20:22)
[2019-08-08] MEDS: Docusate 250mg cap ORAL SCH (09:43)
--- NOTE | 2019-08-08 10:02 | NUR ---
*-* INSURANCE *-* ALL CLINICALS AND REVIEWS HAVE BEEN FAXED TO: [facility] FAX CLINICALS TO [phone]
--- NOTE | 2019-08-08 10:17 | Pulmonology Progress Note ---
Assessment/Plan Assessment/Plan IMPRESSION: 1. Pleural effusion, right side. 2. Atelectasis. 3. Pulmonary edema, questionable. 4. Hypertension. 5. Hyperlipidemia. DISCUSSION: Currently, the patient is saturating well on room air or low flow O2. I will not advocate any further diuresis. I will follow as breakfast manager. Kimani Hahn M.D. Subjective Interval Events: None new Constitutional: Reports: no symptoms HEENT: Repors: no symptoms Respiratory: Reports: no symptoms Gastrointestinal/Abdominal: Reports: no symptoms Allergies: Coded Allergies: No Known Allergies (Unverified , 06/05/19) Objective Last 24 Hour Vital Signs Date Time Temp Pulse Resp B/P (MAP) Pulse Ox O2 Delivery O2 Flow Rate FiO2 08/08/19 09:42 67 164/84 08/08/19 08:00 97.3 67 20 164/84 (110) 99 08/08/19 08:00 2.0 08/08/19 07:00 67 18 99 Nasal Cannula 2.0 28 08/08/19 07:00 99 Nasal Cannula 2.0 28 08/08/19 05:04 148/60 08/08/19 04:00 2.0 08/08/19 04:00 98.4 62 20 148/60 (89) 98 08/08/19 04:00 73 08/08/19 00:00 98.6 62 20 141/63 (89) 98 08/08/19 00:00 70 08/07/19 21:00 Nasal Cannula 2.0 08/07/19 20:41 161/78 08/07/19 20:00 2.0 08/07/19 20:00 98.5 80 20 130/52 (78) 98 08/07/19 19:54 78 18 98 Nasal Cannula 2.0 28 08/07/19 19:54 98 Nasal Cannula 2.0 28 08/07/19 18:07 74 161/78 08/07/19 16:00 2.0 08/07/19 16:00 98.1 80 20 161/78 (105) 98 08/07/19 16:00 74 08/07/19 14:46 160/88 08/07/19 12:00 97.5 70 18 145/55 (85) 96 08/07/19 12:00 2.0 08/07/19 12:00 67 Intake and Output 08/07/19 08/08/19 19:00 07:00 Intake Total 50 ml Output Total 650 ml 500 ml Balance -600 ml -500 ml Intake Oral 50 ml Output Urine Total 650 ml 500 ml # Voids 1 General Appearance: no acute distress HEENT: normocephalic Respiratory/Chest: chest wall non-tender Cardiovascular: normal peripheral pulses Microbiology Date/Time Source Procedure Growth Status 08/06/19 04:45 Nasal Nares - Final Complete 08/06/19 04:45 Nasal Nares - Final Complete 08/06/19 04:00 Nasal Nares MRSA Culture - Final NO METHICILLIN RESISTANT STAPH AUREUS... Complete 08/06/19 04:45 Rectum VRE Culture - Final NO VANCOMYCIN RESISTANT ENTEROCOCCUS ... Complete 08/06/19 04:00 Rectum - Final NO CARBAPENEM-RESISTANT ENTEROBACTERI... Complete Laboratory Tests 08/07/19 14:30: White Blood Count 11.0H, Red Blood Count 2.59L, Hemoglobin 7.5L, Hematocrit 23.3L, Mean Corpuscular Volume 90, Mean Corpuscular Hemoglobin 29.2, Mean Corpuscular Hemoglobin Concent 32.5, Red Cell Distribution Width 14.3, Platelet Count 168, Mean Platelet Volume 7.2, Neutrophils (%) (Auto) , Lymphocytes (%) ( Auto) , Monocytes (%) (Auto) , Eosinophils (%) (Auto) , Basophils (%) (Auto) , Differential Total Cells Counted 100, Neutrophils % (Manual) 84H, Lymphocytes % (Manual) 10L, Monocytes % (Manual) 6, Eosinophils % (Manual) 0, Basophils % ( Manual) 0, Band Neutrophils 0, Platelet Estimate Adequate, Platelet Morphology Normal, Red Blood Cell Morphology Normal Current Medications Medications (Trade) Dose Ordered Sig/Kristine Route PRN Reason Start Time Stop Time Status Last Admin Dose Admin Acetaminophen (Tylenol) 500 mg Q6H PRN ORAL Mild Pain/Temp > 100.5 08/06/19 08:56 09/05/19 08:55 08/07/19 10:47 Albuterol Sulfate (Proventil) 2.5 mg Q4H PRN HHN Shortness of Breath 08/06/19 08:15 08/11/19 08:14 Ceftriaxone Sodium 1 gm/ Dextrose 55 ml @ 110 mls/hr Q24H IVPB 08/07/19 05:00 08/14/19 04:59 08/08/19 04:20 Dextrose/Sodium Chloride 1,000 ml @ 50 mls/hr Q20H IV 08/06/19 08:15 09/05/19 08:14 08/07/19 23:21 Docusate Sodium (Colace) 250 mg DAILY ORAL 08/06/19 09:00 09/05/19 08:59 08/08/19 09:43 Escitalopram Oxalate (Lexapro) 5 mg DAILY ORAL 08/06/19 09:00 09/05/19 08:59 08/08/19 09:43 Finasteride (Proscar) 5 mg DAILY ORAL 08/07/19 15:45 11/05/19 15:44 08/08/19 09:44 Hydralazine HCl (Apresoline) 10 mg Q4H PRN IV BP over 160 systolic 08/06/19 12:30 11/04/19 12:29 08/07/19 04:39 Hydralazine HCl (Apresoline) 50 mg EVERY 8 HOURS ORAL 08/06/19 14:00 11/04/19 13:59 08/08/19 05:04 Iron Sucrose 100 mg/Sodium Chloride 55 ml @ 200 mls/hr BEDTIME IV 08/06/19 21:00 08/15/19 21:17 08/06/19 21:46 Lorazepam (Ativan 2mg/ml 1ml) 1 mg Q4H PRN IV For Anxiety or agitation 08/06/19 22:30 08/13/19 22:29 08/08/19 09:44 Morphine Sulfate (Morphine Sulfate) 0.5 mg Q4HR PRN IVP Severe Pain (Pain Scale 7-10) 08/07/19 15:45 08/14/19 15:44 08/07/19 18:06 Nifedipine (Procardia XL) 30 mg BID ORAL 08/06/19 18:00 09/05/19 17:59 08/08/19 09:42 Pantoprazole (Protonix) 40 mg EVERY 12 HOURS IVP 08/06/19 09:00 09/05/19 08:59 08/08/19 09:43 Sennosides (Senokot) 8.6 mg BEDTIME ORAL 08/06/19 21:00 09/05/19 20:59 08/07/19 20:41 Tamsulosin HCl (Flomax) 0.4 mg BEDTIME ORAL 08/06/19 21:00 09/05/19 20:59 08/07/19 20:42 Trazodone HCl (Desyrel) 50 mg BEDTIME ORAL 08/06/19 21:00 09/05/19 20:59 08/07/19 20:42 Kimani Hahn MD Aug 08, 2019 10:17
--- NOTE | 2019-08-08 11:07 | NUR ---
NOTES: REFERRED FOR SWALLOWING EVALUATION BY DR DENISE (PRIMARY DR TRISTAN), SEE FULL REPORT IN CARE ACTIVITY SECTION. DYSPHAGIA RISK FACTORS FOR THIS 83 Y.O.JAPANESE-SPEAKING MALE: ACUTE ISSUES: S/P FALL MULTIPLE TRAUMA, AMS (ENCEPHALOPATHY CONFUSED), HAS ABRASION TOP OF SCALP HEAD INJURY CT HEAD NEGATIVE BUT OLD CVA, DEHYDRATION, UTI, RENAL FAILURE, ANEMIA, OTHER RELEVANT MEDS: MORPHINE AND ATIVAN (TRYING TO GET OUT OF BED, PULLING OUT HEART AND LINES), ALBUTEROL (SOB). POSSIBLE PNA BUT LUNGS AND CXR CLEAR EXCEPT CHF AND SUBSEGMENTAL ATELECTASIS LEFT LUNG BASE. RESP RATE 18-20, FI02 28%, SPO2 98-99, 02 2 LITERS NC. 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 POLST - NO TUBE FEEDINGS AND DNR. AT SNF THEN WENT TO ASSISTED LIVING (? DIET TYPE/TEXTURE). HAS SAS BI DEVELOPER IN [facility], AND LEFT MESSAGE REGARDING TEMPORARY TUBE FEEDINGS. NOW NPO EXCEPT MEDS AND ICE CHIPS SINCE ADMIT (DAY 2-3 NPO). PER CARLA GOULD, THE PATIENT HAD DIFFICULTY SWALLOWING CRUSHED MEDS WITH APPLESAUCE. WHEN RN USED AN AUTO GLASS WORKER, THE PT DID SWALLOW W/O OVERT ASPIRATION. PATIENT WAS JUST GIVEN ATIVAN FOR AGITATION AND PULLING LINES/HEART. NOT ALERT FOR PO TRIALS. PATIENT HAS GOOD DENTITION AND SOME ABILITY TO PROTRUDE TONGUE BUT DIFFICULTY FOLLOWING ORAL COMMANDS. NO NEED FOR ORAL SUCTION. ABLE TO SPEAK SOME WORDS IN JAPANESE BUT HAS POOR SPEECH INTELLIGIBILITY. INITIAL IMPRESSIONS: HIGH RISK FOR POOR INTAKE DUE TO REDUCED ALERTNESS (GIVEN ATIVAN) AND SIGNIFICANT BEHAVIORAL DEFICITS (AGITATION) HIGH RISK FOR DYSPHAGIA AND SILENT ASPIRATION NO APPARENT S/S OF ASPIRATION WITH CRUSHED MEDS AND APPLESAUCE WITH RN BUT HAS SILENT ASPIRATION RISK. RECOMMENDATIONS: KEEP NPO (INCLUDES NO MEDS) CONSIDER NONORAL FEEDINGS (12 MONGOLIAN NGT) IF PATIENT'S SAS BI DEVELOPER AGREES TO TEMPORARY TUBE FEEDINGS (LEFT MESSAGE WITH SAS BI DEVELOPER) CONTINUE WITH ORAL CARE CONSIDER MODIFIED BARIUM SWALLOW STUDY (MBSS) IP OR OP IF D/C TO FURTHER ASSESS SWALLOW SKILLS, DETERMINE SILENT ASPIRATION/ETIOLOGY, AND TRIAL TX TECHNIQUES SKILLED DYSPHAGIA MANAGEMENT AND TX AND COG-COM EVAL/TX WILL REASSESS WHEN MORE ALERT EDUCATED AND TRAINED RNCARLA, IN POSTED ORAL CARE AND ASPIRATION PRECAUTIONS WHEN TUBE FEEDINGS ARE RUNNING. LEFT MESSAGE WITH DR DENISE
[2019-08-08 11:14] LABS: BASOPHILS % (AUTO) 0.5 % (0.0-2.0); EOSINOPHILS % (AUTO) 0.9 % (0.0-3.0); HEMATOCRIT 25.1 % (42.0-52.0); HEMOGLOBIN 8.4 G/DL (14.2-18.0); LYMPHOCYTES % (AUTO) 5.1 % (20.0-45.0); MEAN CORPUSCULAR VOLUME 88 FL (80-99); MONOCYTES % (AUTO) 9.7 % (1.0-10.0); NEUTROPHILS % (AUTO) 83.8 % (45.0-75.0); PLATELET COUNT 131 K/UL (150-450); RED BLOOD COUNT 2.86 M/UL (4.70-6.10); RED CELL DISTRIBUTION WIDTH 13.7 % (11.6-14.8)
[2019-08-08 11:42] LABS: ALANINE AMINOTRANSFERASE 41 U/L (12-78); ALBUMIN 2.7 G/DL (3.4-5.0); ALKALINE PHOSPHATASE 84 U/L (46-116); ANION GAP 14 mmol/L (5-15); ASPARTATE AMINO TRANSFERASE 33 U/L (15-37); BILIRUBIN,TOTAL 0.4 MG/DL (0.2-1.0); BLOOD UREA NITROGEN 38 mg/dL (7-18); CALCIUM 8.9 MG/DL (8.5-10.1); CARBON DIOXIDE 18 MMOL/L (21-32); CHLORIDE 116 MMOL/L (98-107); CREATININE 2.1 MG/DL (0.55-1.30); POTASSIUM 3.2 MMOL/L (3.5-5.1); SODIUM 148 MMOL/L (136-145)
[2019-08-08 12:00] VITALS: BP 175/65
--- NOTE | 2019-08-08 13:18 | Nephrology Progress Note ---
Assessment/Plan Problem List: (1) Renal failure (ARF), acute on chronic Assessment: Serum creatinine gradually decreasing (2) Falls frequently (3) UTI (urinary tract infection) Assessment: and hematuria (4) Anemia (5) Dehydration (6) Encephalopathy due to metabolic factor or toxin Assessment Frequent falls Acute renal failure with underlying dehydration Anemia, underlying etiology unclear UTI (urinary tract infection) Toxic metabolic encephalopathy Plan We will keep n.p.o. until mental status improves& ST evaluation results Low IV hydration 2D echocardiogram ejection fraction 60% Kidney ultrasound pending results Monitor renal parameters Avoid nephrotoxics Antibiotics for UTI Continue per consultants Subjective ROS Limited/Unobtainable: Yes Objective Objective Last 24 Hour Vital Signs Date Time Temp Pulse Resp B/P (MAP) Pulse Ox O2 Delivery O2 Flow Rate FiO2 08/08/19 09:42 67 164/84 08/08/19 09:00 Nasal Cannula 2.0 08/08/19 08:00 97.3 67 20 164/84 (110) 99 08/08/19 08:00 2.0 08/08/19 08:00 68 08/08/19 07:00 67 18 99 Nasal Cannula 2.0 28 08/08/19 07:00 99 Nasal Cannula 2.0 28 08/08/19 05:04 148/60 08/08/19 04:00 2.0 08/08/19 04:00 98.4 62 20 148/60 (89) 98 08/08/19 04:00 73 08/08/19 00:00 98.6 62 20 141/63 (89) 98 08/08/19 00:00 70 08/07/19 21:00 Nasal Cannula 2.0 08/07/19 20:41 161/78 08/07/19 20:00 2.0 08/07/19 20:00 98.5 80 20 130/52 (78) 98 08/07/19 19:54 78 18 98 Nasal Cannula 2.0 28 08/07/19 19:54 98 Nasal Cannula 2.0 28 08/07/19 18:07 74 161/78 08/07/19 16:00 2.0 08/07/19 16:00 98.1 80 20 161/78 (105) 98 08/07/19 16:00 74 08/07/19 14:46 160/88 Intake and Output 08/07/19 08/08/19 19:00 07:00 Intake Total 50 ml Output Total 650 ml 500 ml Balance -600 ml -500 ml Intake Oral 50 ml Output Urine Total 650 ml 500 ml # Voids 1 Current Medications Medications (Trade) Dose Ordered Sig/Kristine Route PRN Reason Start Time Stop Time Status Last Admin Dose Admin Acetaminophen (Tylenol) 500 mg Q6H PRN ORAL Mild Pain/Temp > 100.5 08/06/19 08:56 09/05/19 08:55 08/07/19 10:47 Albuterol Sulfate (Proventil) 2.5 mg Q4H PRN HHN Shortness of Breath 08/06/19 08:15 08/11/19 08:14 Ceftriaxone Sodium 1 gm/ Dextrose 55 ml @ 110 mls/hr Q24H IVPB 08/07/19 05:00 08/14/19 04:59 08/08/19 04:20 Dextrose/Sodium Chloride 1,000 ml @ 50 mls/hr Q20H IV 08/06/19 08:15 09/05/19 08:14 08/07/19 23:21 Docusate Sodium (Colace) 250 mg DAILY ORAL 08/06/19 09:00 09/05/19 08:59 08/08/19 09:43 Escitalopram Oxalate (Lexapro) 5 mg DAILY ORAL 08/06/19 09:00 09/05/19 08:59 08/08/19 09:43 Finasteride (Proscar) 5 mg DAILY ORAL 08/07/19 15:45 11/05/19 15:44 08/08/19 09:44 Hydralazine HCl (Apresoline) 10 mg Q4H PRN IV BP over 160 systolic 08/06/19 12:30 11/04/19 12:29 08/07/19 04:39 Hydralazine HCl (Apresoline) 50 mg EVERY 8 HOURS ORAL 08/06/19 14:00 11/04/19 13:59 08/08/19 05:04 Iron Sucrose 100 mg/Sodium Chloride 55 ml @ 200 mls/hr BEDTIME IV 08/06/19 21:00 08/15/19 21:17 08/06/19 21:46 Lorazepam (Ativan 2mg/ml 1ml) 1 mg Q4H PRN IV For Anxiety or agitation 08/06/19 22:30 08/13/19 22:29 08/08/19 09:44 Morphine Sulfate (Morphine Sulfate) 0.5 mg Q4HR PRN IVP Severe Pain (Pain Scale 7-10) 08/07/19 15:45 08/14/19 15:44 08/07/19 18:06 Nifedipine (Procardia XL) 30 mg BID ORAL 08/06/19 18:00 09/05/19 17:59 08/08/19 09:42 Pantoprazole (Protonix) 40 mg EVERY 12 HOURS IVP 08/06/19 09:00 09/05/19 08:59 08/08/19 09:43 Sennosides (Senokot) 8.6 mg BEDTIME ORAL 08/06/19 21:00 09/05/19 20:59 08/07/19 20:41 Tamsulosin HCl (Flomax) 0.4 mg BEDTIME ORAL 08/06/19 21:00 09/05/19 20:59 08/07/19 20:42 Trazodone HCl (Desyrel) 50 mg BEDTIME ORAL 08/06/19 21:00 09/05/19 20:59 08/07/19 20:42 Laboratory Tests 08/07/19 14:30: White Blood Count 11.0H, Red Blood Count 2.59L, Hemoglobin 7.5L, Hematocrit 23.3L, Mean Corpuscular Volume 90, Mean Corpuscular Hemoglobin 29.2, Mean Corpuscular Hemoglobin Concent 32.5, Red Cell Distribution Width 14.3, Platelet Count 168, Mean Platelet Volume 7.2, Neutrophils (%) (Auto) , Lymphocytes (%) ( Auto) , Monocytes (%) (Auto) , Eosinophils (%) (Auto) , Basophils (%) (Auto) , Differential Total Cells Counted 100, Neutrophils % (Manual) 84H, Lymphocytes % (Manual) 10L, Monocytes % (Manual) 6, Eosinophils % (Manual) 0, Basophils % ( Manual) 0, Band Neutrophils 0, Platelet Estimate Adequate, Platelet Morphology Normal, Red Blood Cell Morphology Normal 08/08/19 11:00: White Blood Count 9.0, Red Blood Count 2.86L, Hemoglobin 8.4L, Hematocrit 25.1L , Mean Corpuscular Volume 88, Mean Corpuscular Hemoglobin 29.4, Mean Corpuscular Hemoglobin Concent 33.5, Red Cell Distribution Width 13.7, Platelet Count 131L, Mean Platelet Volume 6.4L, Neutrophils (%) (Auto) 83.8H, Lymphocytes (%) (Auto) 5.1L, Monocytes (%) (Auto) 9.7, Eosinophils (%) (Auto) 0.9, Basophils (%) (Auto) 0.5, Sodium Level 148H, Potassium Level 3.2L, Chloride Level 116H, Carbon Dioxide Level 18L, Anion Gap 14, Blood Urea Nitrogen 38H, Creatinine 2.1H, Estimat Glomerular Filtration Rate 30.2, Glucose Level 108H, Calcium Level 8.9, Total Bilirubin 0.4, Aspartate Amino Transf (AST/ SGOT) 33, Alanine Aminotransferase (ALT/SGPT) 41, Alkaline Phosphatase 84, Pro-B -Type Natriuretic Peptide 94402A, Total Protein 5.3L, Albumin 2.7L, Globulin 2.6 , Albumin/Globulin Ratio 1.0 Height (Feet): 5 Height (Inches): 6.00 Weight (Pounds): 160 General Appearance: no apparent distress, lethargic Respiratory/Chest: decreased breath sounds Abdomen: soft Juan Jade MD Aug 08, 2019 13:18
--- NOTE | 2019-08-08 13:37 | Diagnostic Imaging Report ---
Indication: Dyspnea Comparison: 08/06/2019 A single view chest radiograph was obtained. Findings: Interstitial opacities with prominent pulmonary vascularity and mild cardiomegaly are noted. Hazy opacities partially obscuring the diaphragm demonstrated bilaterally. IMPRESSION: Suspicion of CHF although findings appear unchanged. Suspicion of small bilateral pleural effusions
--- NOTE | 2019-08-08 13:52 | NUR ---
RADIOLOGY DEPT., CHEST X-RAY DONE.-P.DYE
--- NOTE | 2019-08-08 14:44 | NUR ---
CASE MANAGEMENT:REVIEW 83 YR OLD MALE BIBA FROM [facility] CC; S/P FALL SI: DEHYDRATION. UTI. FREQUENT FALLS 98.4 66 18 140/58 98% ON RA WBC+15.3 H/H-8.6/25.1 BUN+54 CR+2.8 IS: 1L NS BOLUS IV ATIVAN CHEST XRAY CT HEAD : TO TELEMETRY 08/07/19 SI:H/H-7.5/23.3 IS: TRANSFUSE 1 UNIT PRBC'S : TELEMETRY DCP: [facility] 08/08/19 SI: RT SIDED PLEURAL EFFUSION AC/CHR RENAL FAILURE. HEMATURIA~ ANEMIA 97.3 67 20 164/84 99% ON 2L/NC H/H-8.4/25.1 PLT-131 NA+148 BUN+38 CR+2.1 IS: IV ROCEPHIN Q24 IV VENOFER QHS IVF@50/HR FLOMAX PO QHS PROCARDIA PO BID HYDRALAZINE PO Q8HRS IV PROTONIX Q12 IV ATIVAN Q4HRS PRN : TELEMETRY STATUS DCP: [facility]
--- NOTE | 2019-08-08 15:32 | NUR ---
NURSE NOTES:WOUND CARE NOTES:Pt presented on admission with multiple skin breakdown. Contusions R upper back and R flank. Non-blanching erythema with fluctuance L sacrum. Non-blanching erythema without fluctuance or induration marbella cleft and R buttocks. Pt has F/C in-situ and moderate amt of sanguineus exudate noted from meatus. Primary nurse in attendance and is aware. Both heels are boggy with non-blanching erythema.L Lower extremity slightly edematous and oleg pink in colour. No elevation in skin noted. No other skin concerns noted. Tx.Plan: Apply Moisture Barrier Paste to Sacrum,R and L Buttocks. Cover with Optifoam drsg. Changee very 3 days and prn Apply Cavilon Skin Barrier to Both heels. Cover each heel with Optifoam drsg. Change every 7 days and prn. Reposition at least every 2hours or as tolerated. Off-load heels with pillow.
[2019-08-08 15:51] VITALS: BP 149/56
--- NOTE | 2019-08-08 19:05 | NUR ---
HAND-OFF: Report given to Fortino/RN, Patient is in stable condition. Endorsed plan of care.
[2019-08-08] MEDS: D5NS 1,000 ML IV SCH (19:40)
--- NOTE | 2019-08-08 19:45 | Consultation ---
Consult Note Consult Note Cardiac EP Pt seen, examined and chart reviewed. Full note dictated #[id number] Luci Reyes MD Aug 08, 2019 19:45
[2019-08-08 20:00] VITALS: BP 154/64
[2019-08-08] MEDS: Tamsulosin 0.4mg cap ORAL SCH (20:22)
[2019-08-08] MEDS: Sennosides 8.6mg tab ORAL SCH (20:22)
[2019-08-08] MEDS: TraZODone 50mg tab ORAL SCH (20:22)
--- NOTE | 2019-08-08 21:15 | Consultation ---
DATE OF CONSULTATION: 08/08/2019 CARDIAC ELECTROPHYSIOLOGY CONSULTATION CONSULTING PHYSICIAN: Luci Reyes M.D. REASON FOR CONSULT: Abnormal cardiac rhythm in a patient with history of recurrent falls. HISTORY OF PRESENT ILLNESS: History is obtained primarily from the chart and treating providers as the patient is a limited historian due to dementia. The patient is an 83-year-old man with a history of valvular heart disease, previous mitral valve replacement (details currently unavailable), and dementia who was transferred from the convalescent facility following a fall on 08/06/2019. Details of the episode are not currently available, but per the notes he has been having frequent falls over the past few weeks. His past medical history is significant for hypertension. He suffered abrasions to his scalp and bruising of the upper extremities. A head CT done on admission did not show any intracranial bleed, hydrocephalus, or mass effect. He was admitted for further treatment. MEDICATIONS: Morphine p.r.n., Proscar 5 mg daily, ceftriaxone 1 g IV q.24 hours, Ativan p.r.n., trazodone 50 mg at bedtime, Flomax 0.4 mg at bedtime, nifedipine 30 mg p.o. b.i.d., hydralazine 50 mg q.8 hours and 10 mg IV q.4 hours p.r.n., pantoprazole 40 mg IV q.12 hours, Colace 250 mg daily, Lexapro 5 mg daily, Tylenol q.6 hours p.r.n., albuterol nebulizer p.r.n. ALLERGIES: No known drug allergies. PAST MEDICAL HISTORY: As noted above. Also history of hypertension, labile, history of hyperlipidemia, paroxysmal atrial fibrillation, coronary artery disease, osteoarthritis, and dementia. SOCIAL HISTORY: Per the chart, the patient has no history of tobacco, alcohol, or drug abuse. REVIEW OF SYSTEMS: Not obtainable from the patient or chart. PHYSICAL EXAMINATION: VITAL SIGNS: Blood pressure is 149/56, earlier today, 175/65, pulse 71 and regular, respirations 20, afebrile. GENERAL: Alert, elderly male, who was confused. Oriented to person only. HEENT: Normocephalic and atraumatic. Pupils are equal, round, and reactive to light. Oral mucosa are dry. NECK: Supple. There is elevation of the jugular venous pressure to the angle of the jaw. Carotid pulses are 2+ bilaterally. LUNGS: Bilateral rhonchi at bases. HEART: Regular S1 and S2 with a 2/6 systolic murmur at the lower left sternal border. No S3. ABDOMEN: Soft, nontender, and nondistended. No palpable mass. EXTREMITIES: No cyanosis, clubbing, or edema. LABORATORY DATA: Hemoglobin 8.4, hematocrit 25, white blood count 9000, platelets 131,000. Chemistries - sodium 148, potassium 3.2, chloride 116, bicarbonate 18, BUN 38, creatinine 2.1, glucose 108. TSH 1.4. IMAGING STUDIES: Chest x-ray shows borderline cardiomegaly, increased markings at the right lung base, possible early infiltrate. EKG shows a regular rhythm at 68 beats per minute with a right bundle-branch block without discernible P waves (EKG from 08/08/2019 4:07 a.m.). Telemetry strips from today at 16:12 show a regular rhythm with a bundle branch QRS configuration and possible P waves with a prolonged IL interval of 0.24. Echo (preliminary report) shows normal left ventricular systolic function with EF 60% to 65%. Mitral inflow pattern indicating restrictive pattern and elevated left atrial pressure. Moderate to severe tricuspid regurgitation and severe pulmonary hypertension with peak RV systolic pressure 93 mmHg. ASSESSMENT AND RECOMMENDATIONS: The patient is an 83-year-old man with a history of mitral valve disease, status post mitral valve repair versus replacement, paroxysmal atrial fibrillation, labile hypertension, hyperlipidemia, and dementia who was admitted following a fall versus syncope. He is being treated for acute on chronic diastolic heart failure and labile hypertension as per Dr. Salas. His cardiac rhythm appears to be junctional at times and sinus rhythm with first-degree AV block at times. There has been no bradycardia noted. The cause of his recurrent falls is uncertain. I would recommend continued telemetry monitoring. We would consider insert of a loop recorder to monitor the patient's rhythm long-term given the history of recurrent falls, which may be due to bradyarrhythmia or, less likely, tachyarrhythmia. We would also check orthostatic vital signs given his labile blood pressure, to rule out orthostatic hypotension contributing to his falls. Neurology evaluation can also be considered to assess gait and potential neurologic cause for his recurrent falls. Thank you for allowing me to see the patient in electrophysiology consultation. I will discuss these findings and recommendations further with you. Luci Reyes M.D. DR: MILENA JOB#: [id number] CC: JAISON
--- NOTE | 2019-08-08 22:26 | NUR ---
Dr Reyes was here to see the patient at start of shift. She has new order for Orthostatic Vital signs once per shift. I have added it to the nursing intervention.
[2019-08-09] VITALS (7 sets, daily range): BP systolic 138–171; BP diastolic 58–79
--- NOTE | 2019-08-09 03:44 | Progress Note ---
DATE: 08/08/2019 CARDIOLOGY PROGRESS NOTE SUBJECTIVE: EP consultation appreciated, concern over bradyarrhythmias due to underlying structural heart disease was noted. Plans for long-term monitoring of cardiac rhythm will be considered either by event recorder . Anxious and agitated at times. No shortness of breath noted. OBJECTIVE: VITAL SIGNS: Blood pressure is 130/52 to 164/84, heart rate 60 to 73, no pauses. The patient is afebrile, respiratory rate 18 to 20, oxygen saturation adequate. LUNGS: Diminished breath sounds. CARDIAC: Regular rhythm and rate. Normal S1 and S2. ABDOMEN: Soft. EXTREMITIES: No edema. LABORATORY DATA: White count 9 and hemoglobin 8.4. Sodium 148, potassium 3.2, BUN 38, and creatinine 2.1. Pro-natriuretic peptide 14,000. Echocardiogram revealed normal ejection fraction with moderate to severe tricuspid regurgitation, severe pulmonary hypertension. IMPRESSION: 1. Recurring falls. 2. Junctional rhythm, rule out bradyarrhythmias. 3. Valvular cardiomyopathy. 4. Severe pulmonary hypertension. 5. Labile hypertension. 6. Acute on chronic diastolic congestive heart failure. 7. Dehydration. 8. Hypernatremia. PLAN: 1. Free water replacement. 2. Titrate antihypertensive. 3. Reassess for diuresis once metabolic parameters corrected. 4. Avoid beta-eligio. Gamaliel Salas M.D. DR: ANDRE JOB#: [id number] CC:
[2019-08-09] MEDS: cefTRIAXone 1 GM in D5W 55 ML IVPB SCH (04:47)
[2019-08-09] MEDS: HydrALAZINE 50mg tab ORAL SCH ×3 (05:07→22:10)
[2019-08-09 07:21] LABS: BASOPHILS % (AUTO) 0.5 % (0.0-2.0); EOSINOPHILS % (AUTO) 2.3 % (0.0-3.0); HEMATOCRIT 23.5 % (42.0-52.0); HEMOGLOBIN 8.2 G/DL (14.2-18.0); LYMPHOCYTES % (AUTO) 5.9 % (20.0-45.0); MEAN CORPUSCULAR VOLUME 87 FL (80-99); MONOCYTES % (AUTO) 8.8 % (1.0-10.0); NEUTROPHILS % (AUTO) 82.5 % (45.0-75.0); PLATELET COUNT 138 K/UL (150-450); RED CELL DISTRIBUTION WIDTH 14.1 % (11.6-14.8); WHITE BLOOD COUNT 8.2 K/UL (4.8-10.8)
[2019-08-09 07:30] LABS: ALANINE AMINOTRANSFERASE 35 U/L (12-78); ALBUMIN 2.6 G/DL (3.4-5.0); ALKALINE PHOSPHATASE 89 U/L (46-116); ANION GAP 14 mmol/L (5-15); ASPARTATE AMINO TRANSFERASE 25 U/L (15-37); BILIRUBIN,TOTAL 0.4 MG/DL (0.2-1.0); BLOOD UREA NITROGEN 28 mg/dL (7-18); CARBON DIOXIDE 20 MMOL/L (21-32); CHLORIDE 117 MMOL/L (98-107); CREATININE 1.9 MG/DL (0.55-1.30); PHOSPHORUS 2.7 MG/DL (2.5-4.9); SODIUM 150 MMOL/L (136-145)
--- NOTE | 2019-08-09 07:32 | NUR ---
NURSE NOTES: Received report from Fortino/LUIS FERNANDO, Patient is awake, Lying semi-hampton's on bed, resting comfortably. On room 2L nasal canula, No acute distress/SOB noted. Breathing unlabored and even. Colombian speaking, IV on Right FA And Right hand, intact, no bleeding or infiltration noted, D5NS running @50cc/hr. Trevino draining well to gravity. Bed in low position and locked, Bed alarm engaged, Side rails up x3, Call light within reach. Encouraged to use call light when needed. Will continue plan of care.
--- NOTE | 2019-08-09 08:12 | NUR ---
NURSE NOTES: Patient is unable to stand up for Orthostatic V.S.
[2019-08-09] MEDS: Pantoprazole Inj IVP SCH ×2 (09:02→20:26)
[2019-08-09] MEDS: LORazepam Inj 2mg/ml 1ml IV PRN ×3 (09:02→20:43)
[2019-08-09] MEDS: Docusate 250mg cap ORAL SCH (09:03)
--- NOTE | 2019-08-09 09:19 | Pulmonology Progress Note ---
Assessment/Plan Assessment/Plan IMPRESSION: 1. Pleural effusion, right side. 2. Atelectasis. 3. Pulmonary edema, questionable. 4. Hypertension. 5. Hyperlipidemia. DISCUSSION: Currently, the patient is saturating well on room air or low flow O2. I will follow as meal temperer. Kimani Hahn M.D. Subjective Interval Events: None new Constitutional: Reports: no symptoms HEENT: Repors: no symptoms Respiratory: Reports: no symptoms Cardiovascular: Reports: no symptoms Gastrointestinal/Abdominal: Reports: no symptoms Genitourinary: Reports: no symptoms Allergies: Coded Allergies: No Known Allergies (Unverified , 06/05/19) Objective Last 24 Hour Vital Signs Date Time Temp Pulse Resp B/P (MAP) Pulse Ox O2 Delivery O2 Flow Rate FiO2 08/09/19 09:03 76 138/79 08/09/19 08:05 76 08/09/19 08:00 64 08/09/19 08:00 96.8 76 20 138/79 (98) 98 08/09/19 08:00 2.0 08/09/19 07:02 77 16 97 Nasal Cannula 2.0 28 08/09/19 07:02 97 Nasal Cannula 2.0 28 08/09/19 05:07 171/69 08/09/19 04:00 65 08/09/19 04:00 2.0 08/09/19 04:00 98.2 70 20 171/69 (103) 98 08/09/19 03:48 96 Nasal Cannula 2.0 28 08/09/19 03:48 75 16 96 Nasal Cannula 2.0 28 08/09/19 00:00 98.2 63 20 162/77 (105) 98 08/08/19 21:00 Nasal Cannula 2.0 08/08/19 20:22 156/79 08/08/19 20:00 97.7 74 20 154/64 (94) 98 08/08/19 20:00 2.0 08/08/19 20:00 68 08/08/19 17:22 75 149/56 08/08/19 16:00 75 08/08/19 16:00 2.0 08/08/19 15:54 2.0 08/08/19 15:51 96.4 71 20 149/56 (87) 98 08/08/19 13:56 175/65 08/08/19 13:53 175/65 08/08/19 12:00 97.2 65 20 175/65 (101) 98 08/08/19 12:00 2.0 08/08/19 12:00 65 08/08/19 09:42 67 164/84 Intake and Output 08/08/19 08/09/19 19:00 07:00 Output Total 700 ml 1200 ml Balance -700 ml -1200 ml Output Urine Total 700 ml 1200 ml General Appearance: no acute distress HEENT: normocephalic Respiratory/Chest: chest wall non-tender Cardiovascular: normal peripheral pulses Abdomen: normal bowel sounds Laboratory Tests 08/08/19 11:00: White Blood Count 9.0, Red Blood Count 2.86L, Hemoglobin 8.4L, Hematocrit 25.1L , Mean Corpuscular Volume 88, Mean Corpuscular Hemoglobin 29.4, Mean Corpuscular Hemoglobin Concent 33.5, Red Cell Distribution Width 13.7, Platelet Count 131L, Mean Platelet Volume 6.4L, Neutrophils (%) (Auto) 83.8H, Lymphocytes (%) (Auto) 5.1L, Monocytes (%) (Auto) 9.7, Eosinophils (%) (Auto) 0.9, Basophils (%) (Auto) 0.5, Sodium Level 148H, Potassium Level 3.2L, Chloride Level 116H, Carbon Dioxide Level 18L, Anion Gap 14, Blood Urea Nitrogen 38H, Creatinine 2.1H, Estimat Glomerular Filtration Rate 30.2, Glucose Level 108H, Calcium Level 8.9, Total Bilirubin 0.4, Aspartate Amino Transf (AST/ SGOT) 33, Alanine Aminotransferase (ALT/SGPT) 41, Alkaline Phosphatase 84, Pro-B -Type Natriuretic Peptide 15566P, Total Protein 5.3L, Albumin 2.7L, Globulin 2.6 , Albumin/Globulin Ratio 1.0 08/09/19 06:08: White Blood Count 8.2, Red Blood Count 2.70L, Hemoglobin 8.2L, Hematocrit 23.5L , Mean Corpuscular Volume 87, Mean Corpuscular Hemoglobin 30.2, Mean Corpuscular Hemoglobin Concent 34.8, Red Cell Distribution Width 14.1, Platelet Count 138L, Mean Platelet Volume 7.4, Neutrophils (%) (Auto) 82.5H, Lymphocytes (%) (Auto) 5.9L, Monocytes (%) (Auto) 8.8, Eosinophils (%) (Auto) 2.3, Basophils (%) (Auto) 0.5, Sodium Level 150H, Potassium Level 3.0L, Chloride Level 117H, Carbon Dioxide Level 20L, Anion Gap 14, Blood Urea Nitrogen 28H, Creatinine 1.9H, Estimat Glomerular Filtration Rate 33.9, Glucose Level 117H, Calcium Level 9.0, Total Bilirubin 0.4, Aspartate Amino Transf (AST/SGOT) 25, Alanine Aminotransferase (ALT/SGPT) 35, Alkaline Phosphatase 89, Pro-B-Type Natriuretic Peptide 85874O, Total Protein 5.3L, Albumin 2.6L, Globulin 2.7, Albumin/Globulin Ratio 1.0, Phosphorus Level 2.7, Magnesium Level 2.0, C- Reactive Protein, Quantitative 5.1H Current Medications Medications (Trade) Dose Ordered Sig/Kristine Route PRN Reason Start Time Stop Time Status Last Admin Dose Admin Acetaminophen (Tylenol) 500 mg Q6H PRN ORAL Mild Pain/Temp > 100.5 08/06/19 08:56 09/05/19 08:55 08/07/19 10:47 Albuterol Sulfate (Proventil) 2.5 mg Q4H PRN HHN Shortness of Breath 08/06/19 08:15 08/11/19 08:14 Ceftriaxone Sodium 1 gm/ Dextrose 55 ml @ 110 mls/hr Q24H IVPB 08/07/19 05:00 08/14/19 04:59 08/09/19 04:47 Dextrose 1,000 ml @ 75 mls/hr [id number] IV 08/09/19 09:00 09/08/19 08:59 08/09/19 09:03 Docusate Sodium (Colace) 250 mg DAILY ORAL 08/06/19 09:00 09/05/19 08:59 08/09/19 09:03 Escitalopram Oxalate (Lexapro) 5 mg DAILY ORAL 08/06/19 09:00 09/05/19 08:59 08/09/19 09:03 Finasteride (Proscar) 5 mg DAILY ORAL 08/07/19 15:45 11/05/19 15:44 08/09/19 09:03 Hydralazine HCl (Apresoline) 10 mg Q4H PRN IV BP over 160 systolic 08/06/19 12:30 11/04/19 12:29 08/08/19 13:56 Hydralazine HCl (Apresoline) 50 mg EVERY 8 HOURS ORAL 08/06/19 14:00 11/04/19 13:59 08/09/19 05:07 Iron Sucrose 100 mg/Sodium Chloride 55 ml @ 200 mls/hr BEDTIME IV 08/06/19 21:00 08/15/19 21:17 08/08/19 20:17 Lorazepam (Ativan 2mg/ml 1ml) 1 mg Q4H PRN IV For Anxiety or agitation 08/06/19 22:30 08/13/19 22:29 08/09/19 09:02 Morphine Sulfate (Morphine Sulfate) 0.5 mg Q4HR PRN IVP Severe Pain (Pain Scale 7-10) 08/07/19 15:45 08/14/19 15:44 08/07/19 18:06 Nifedipine (Procardia XL) 30 mg BID ORAL 08/06/19 18:00 09/05/19 17:59 08/09/19 09:03 Pantoprazole (Protonix) 40 mg EVERY 12 HOURS IVP 08/06/19 09:00 09/05/19 08:59 08/09/19 09:02 Sennosides (Senokot) 8.6 mg BEDTIME ORAL 08/06/19 21:00 09/05/19 20:59 08/08/19 20:22 Tamsulosin HCl (Flomax) 0.4 mg BEDTIME ORAL 08/06/19 21:00 09/05/19 20:59 08/08/19 20:22 Trazodone HCl (Desyrel) 50 mg BEDTIME ORAL 08/06/19 21:00 09/05/19 20:59 08/08/19 20:22 Kimani Hahn MD Aug 09, 2019 09:19
--- NOTE | 2019-08-09 10:31 | NUR ---
ST NOTES: UPDATES: [facility] - NO TUBE FEEDINGS AND DNR PER PATIENT. PER HIS URBAN SOCIOLOGIST FRIEND, URBAN SOCIOLOGIST CANNOT MAKE DECISIONS FOR HIM. HE SAID HIS PARTNER LATE LAST YEAR AND HE HAS BEEN AGITATED FOR 3 MONTHS (TAKING DIFFERENT PSYCH MEDS). PER DR HUDSON, DR MARTIN, PSYCHIATRIST TO SEE PATIENT. AT SNF THEN WENT TO ASSISTED LIVING (ON REGULAR TEXTURE DIET AND THIN LIQUIDS W/O SWALLOWING PROBLEMS PER URBAN SOCIOLOGIST). S: MORE ALERT BUT WILL CLOSE EYES WHEN NOT STIMULATED. SPEECH IS VERY DIFFICULT TO UNDERSTAND BUT WILL SAY SOME SHORT PHRASES THAT ARE OFF TOPIC. SPEECH RATE IS RAPID, VOICE LOUDNESS IS LOW AND ARTICULATION IS IMPRECISE MOST OF THE TIME. 10% INTELLIGIBLE. SPEAKS COMORAN AND SOME NEPALESE. NEUROLOGY DIRECTOR SPOKE TO HIM IN COMORAN. O/A: REASSESS OROMOTOR SKILLS: ONLY ABLE TO PROTRUDE TONGUE TO LOWER LIP AND WOULD FOLLOW ANY MORE ORAL COMMANDS. NEEDS ORAL AND DENTAL CARE, HAS WHITE COATING ON TONGUE AND PLAQUE ON HIS TEETH. REASSESS PO INTAKE: GIVEN THIN LIQUIDS VIA STRAW SEQUENTIAL SIPS, PATIENT TOOK A FEW SIPS AND HELD LIQUID IN HIS MOUTH FOR 10 SECONDS AND SPIT IT OUT AND COUGHED (FAILED 3 OZ BILL WATER SWALLOW SCREEN). GIVEN NECTAR THICK LIQUID TSP LEVEL, HE SWISHED IT IN HIS MOUTH AND SPIT IT OUT. GIVEN SIP OF NECTAR THICK LIQUID VIA CUP AND ONE SIP WITH STRAW, CUED TO SWALLOW (AND NOT SWITCH/SIP), SWALLOWED WITHIN 2 SECONDS, NO ORAL RESIDUE NO OVERT ASPIRATION. GIVEN PUREED, CHEWED ON BOLUS UNNECESSARILY FOR 6-8 SECONDS AND SWALLOWED W/O ORAL RESIDUE NOR OVERT ASPIRATION. (HOLD ON MASTICATED SOLID TRIALS SINCE HE TAKES TOO LONG WITH PUREED/APPLESAUCE). HAS SILENT ASPIRATION RISK DUE TO H/O DEMENTIA/CVA AND NEEDS TO BE FED HAS RISK FOR POOR INTAKE DUE TO COGNITIVE-BEHAVIORAL DEFICITS. PLAN: COMPLETE MODIFIED BARIUM SWALLOW STUDY MBSS TO FURTHER ASSESS SWALLOW, DETERMINE SILENT ASPIRATION RISK/ETIOLOGY, AND ATTEMPT TRIAL TREATMENT TECHNIQUES. PER DR HUDSON / CAMELIA RAMSEY WITH RECOMMENDATIONS OF DIET TYPE/TEXTURE AND MODIFIED BARIUM SWALLOW STUDY. SINCE [facility] STATES NO TUBE FEEDINGS, INITIATE LIQUIFIED PUREED LIKE NECTAR THICK SOUP CONSISTENCY WITH POSTED ASPIRATION AND REFLUX PRECAUTIONS AND ONE TO ONE FEEDING (TSP ONLY FOR SOUP AND SIP VIA CUP/STRAW WITH LIQUID). EDUCATED/TRAINED RN/INSIDE SALES RECRUITER IN ORAL CARE (BRUSH TEETH/TONGUE) AND ASPIRATION AND REFLUX PRECAUTIONS WITH MEALS. PER RD, THEY HAVE NOT ASSESSED PATIENT YET (CHECK THEIR NOTES IN NOTES OR CARE ACTIVITY SECTION FOR DIET TYPE AND HIGH CALORIE SUPPLEMENT)
--- NOTE | 2019-08-09 12:26 | Urology Progress Note ---
Assessment/Plan Status: stable, not improved Assessment/Plan: 1. Gross hematuria, presumably secondary to Doshi trauma. 2. BPH. 3. Urinary retention. 4. Neurogenic bladder. 5. Pyuria. 6. Proteinuria. 7. Renal insufficiency, which appears to be acute on chronic. 8. Rule out urethral stricture. monitor clinically maintain doshi, placed 08/06 hand irrigated and do PRN, minimal clots cont flomax and proscar abx as ordered off anticoagulation restraints cysto at some point voiding trial later d/w nursing staff Subjective Allergies: Coded Allergies: No Known Allergies (Unverified , 06/05/19) Subjective all noted, confused, nurses hand irrigated doshi Objective Last 24 Hour Vital Signs Date Time Temp Pulse Resp B/P (MAP) Pulse Ox O2 Delivery O2 Flow Rate FiO2 08/09/19 12:00 2.0 08/09/19 12:00 96.7 65 20 158/67 (97) 95 08/09/19 09:03 76 138/79 08/09/19 09:00 Nasal Cannula 2.0 08/09/19 08:05 76 08/09/19 08:00 64 08/09/19 08:00 96.8 76 20 138/79 (98) 98 08/09/19 08:00 2.0 08/09/19 08:00 71 08/09/19 07:02 77 16 97 Nasal Cannula 2.0 28 08/09/19 07:02 97 Nasal Cannula 2.0 28 08/09/19 05:07 171/69 08/09/19 04:00 65 08/09/19 04:00 2.0 08/09/19 04:00 98.2 70 20 171/69 (103) 98 08/09/19 03:48 96 Nasal Cannula 2.0 28 08/09/19 03:48 75 16 96 Nasal Cannula 2.0 28 08/09/19 00:00 98.2 63 20 162/77 (105) 98 08/08/19 21:00 Nasal Cannula 2.0 08/08/19 20:22 156/79 08/08/19 20:00 97.7 74 20 154/64 (94) 98 08/08/19 20:00 2.0 08/08/19 20:00 68 08/08/19 17:22 75 149/56 08/08/19 16:00 75 08/08/19 16:00 2.0 08/08/19 15:54 2.0 08/08/19 15:51 96.4 71 20 149/56 (87) 98 08/08/19 13:56 175/65 08/08/19 13:53 175/65 Intake and Output 08/08/19 08/09/19 19:00 07:00 Output Total 700 ml 1200 ml Balance -700 ml -1200 ml Output Urine Total 700 ml 1200 ml Microbiology Date/Time Source Procedure Growth Status 08/06/19 04:45 Nasal Nares - Final Complete 08/06/19 04:45 Nasal Nares - Final Complete 08/06/19 04:45 Rectum VRE Culture - Final NO VANCOMYCIN RESISTANT ENTEROCOCCUS ... Complete Current Medications Medications (Trade) Dose Ordered Sig/Kristine Route PRN Reason Start Time Stop Time Status Last Admin Dose Admin Acetaminophen (Tylenol) 500 mg Q6H PRN ORAL Mild Pain/Temp > 100.5 08/06/19 08:56 09/05/19 08:55 08/07/19 10:47 Albuterol Sulfate (Proventil) 2.5 mg Q4H PRN HHN Shortness of Breath 08/06/19 08:15 08/11/19 08:14 Ceftriaxone Sodium 1 gm/ Dextrose 55 ml @ 110 mls/hr Q24H IVPB 08/07/19 05:00 08/14/19 04:59 08/09/19 04:47 Dextrose 1,000 ml @ 75 mls/hr [id number] IV 08/09/19 09:00 09/08/19 08:59 08/09/19 09:03 Docusate Sodium (Colace) 250 mg DAILY ORAL 08/06/19 09:00 09/05/19 08:59 08/09/19 09:03 Escitalopram Oxalate (Lexapro) 5 mg DAILY ORAL 08/06/19 09:00 09/05/19 08:59 08/09/19 09:03 Finasteride (Proscar) 5 mg DAILY ORAL 08/07/19 15:45 11/05/19 15:44 08/09/19 09:03 Hydralazine HCl (Apresoline) 10 mg Q4H PRN IV BP over 160 systolic 08/06/19 12:30 11/04/19 12:29 08/08/19 13:56 Hydralazine HCl (Apresoline) 50 mg EVERY 8 HOURS ORAL 08/06/19 14:00 11/04/19 13:59 08/09/19 05:07 Iron Sucrose 100 mg/Sodium Chloride 55 ml @ 200 mls/hr BEDTIME IV 08/06/19 21:00 08/15/19 21:17 08/08/19 20:17 Lorazepam (Ativan 2mg/ml 1ml) 1 mg Q4H PRN IV For Anxiety or agitation 08/06/19 22:30 08/13/19 22:29 08/09/19 09:02 Morphine Sulfate (Morphine Sulfate) 0.5 mg Q4HR PRN IVP Severe Pain (Pain Scale 7-10) 08/07/19 15:45 08/14/19 15:44 08/07/19 18:06 Nifedipine (Procardia XL) 30 mg BID ORAL 08/06/19 18:00 09/05/19 17:59 08/09/19 09:03 Pantoprazole (Protonix) 40 mg EVERY 12 HOURS IVP 08/06/19 09:00 09/05/19 08:59 08/09/19 09:02 Sennosides (Senokot) 8.6 mg BEDTIME ORAL 08/06/19 21:00 09/05/19 20:59 08/08/19 20:22 Tamsulosin HCl (Flomax) 0.4 mg BEDTIME ORAL 08/06/19 21:00 09/05/19 20:59 08/08/19 20:22 Trazodone HCl (Desyrel) 50 mg BEDTIME ORAL 08/06/19 21:00 09/05/19 20:59 08/08/19 20:22 Laboratory Tests 08/09/19 06:08: White Blood Count 8.2, Red Blood Count 2.70L, Hemoglobin 8.2L, Hematocrit 23.5L , Mean Corpuscular Volume 87, Mean Corpuscular Hemoglobin 30.2, Mean Corpuscular Hemoglobin Concent 34.8, Red Cell Distribution Width 14.1, Platelet Count 138L, Mean Platelet Volume 7.4, Neutrophils (%) (Auto) 82.5H, Lymphocytes (%) (Auto) 5.9L, Monocytes (%) (Auto) 8.8, Eosinophils (%) (Auto) 2.3, Basophils (%) (Auto) 0.5, Sodium Level 150H, Potassium Level 3.0L, Chloride Level 117H, Carbon Dioxide Level 20L, Anion Gap 14, Blood Urea Nitrogen 28H, Creatinine 1.9H, Estimat Glomerular Filtration Rate 33.9, Glucose Level 117H, Calcium Level 9.0, Phosphorus Level 2.7, Magnesium Level 2.0, Total Bilirubin 0.4, Aspartate Amino Transf (AST/SGOT) 25, Alanine Aminotransferase (ALT/SGPT) 35, Alkaline Phosphatase 89, C-Reactive Protein, Quantitative 5.1H, Pro-B-Type Natriuretic Peptide 87955D, Total Protein 5.3L, Albumin 2.6L, Globulin 2.7, Albumin/Globulin Ratio 1.0 Height (Feet): 5 Height (Inches): 6.00 Weight (Pounds): 160 Objective exam stable abdomen soft, doshi indwelling, urine denia/blood tinged Miki Calzada MD Aug 09, 2019 12:26
--- NOTE | 2019-08-09 13:39 | Nephrology Progress Note ---
Assessment/Plan Problem List: (1) Renal failure (ARF), acute on chronic Assessment: Serum creatinine gradually decreasing (2) Falls frequently (3) UTI (urinary tract infection) Assessment: and hematuria (4) Anemia (5) Dehydration (6) Encephalopathy due to metabolic factor or toxin Assessment Frequent falls Acute renal failure with underlying dehydration Anemia, underlying etiology unclear UTI (urinary tract infection) Toxic metabolic encephalopathy Plan ST evaluation suggest tube feeding however patient's DPOA is against any tube feeding Correct electrolytes as needed Transfusion as needed Low IV hydration 2D echocardiogram ejection fraction 60% Kidney ultrasound pending results Monitor renal parameters Avoid nephrotoxics Antibiotics for UTI Continue per consultants Subjective ROS Limited/Unobtainable: No Constitutional: Reports: malaise, weakness, other - Nonverbal Objective Objective Last 24 Hour Vital Signs Date Time Temp Pulse Resp B/P (MAP) Pulse Ox O2 Delivery O2 Flow Rate FiO2 08/09/19 13:33 158/67 08/09/19 12:00 73 08/09/19 12:00 2.0 08/09/19 12:00 96.7 65 20 158/67 (97) 95 08/09/19 09:03 76 138/79 08/09/19 09:00 Nasal Cannula 2.0 08/09/19 08:05 76 08/09/19 08:00 64 08/09/19 08:00 96.8 76 20 138/79 (98) 98 08/09/19 08:00 2.0 08/09/19 08:00 71 08/09/19 07:02 77 16 97 Nasal Cannula 2.0 28 08/09/19 07:02 97 Nasal Cannula 2.0 28 08/09/19 05:07 171/69 08/09/19 04:00 65 08/09/19 04:00 2.0 08/09/19 04:00 98.2 70 20 171/69 (103) 98 08/09/19 03:48 96 Nasal Cannula 2.0 28 08/09/19 03:48 75 16 96 Nasal Cannula 2.0 28 08/09/19 00:00 98.2 63 20 162/77 (105) 98 08/08/19 21:00 Nasal Cannula 2.0 08/08/19 20:22 156/79 08/08/19 20:00 97.7 74 20 154/64 (94) 98 08/08/19 20:00 2.0 08/08/19 20:00 68 08/08/19 17:22 75 149/56 08/08/19 16:00 75 08/08/19 16:00 2.0 08/08/19 15:54 2.0 08/08/19 15:51 96.4 71 20 149/56 (87) 98 08/08/19 13:56 175/65 08/08/19 13:53 175/65 Intake and Output 08/08/19 08/09/19 19:00 07:00 Output Total 700 ml 1200 ml Balance -700 ml -1200 ml Output Urine Total 700 ml 1200 ml Current Medications Medications (Trade) Dose Ordered Sig/Kristine Route PRN Reason Start Time Stop Time Status Last Admin Dose Admin Acetaminophen (Tylenol) 500 mg Q6H PRN ORAL Mild Pain/Temp > 100.5 08/06/19 08:56 09/05/19 08:55 08/07/19 10:47 Albuterol Sulfate (Proventil) 2.5 mg Q4H PRN HHN Shortness of Breath 08/06/19 08:15 08/11/19 08:14 Ceftriaxone Sodium 1 gm/ Dextrose 55 ml @ 110 mls/hr Q24H IVPB 08/07/19 05:00 08/14/19 04:59 08/09/19 04:47 Dextrose 1,000 ml @ 75 mls/hr [id number] IV 08/09/19 09:00 09/08/19 08:59 08/09/19 09:03 Docusate Sodium (Colace) 250 mg DAILY ORAL 08/06/19 09:00 09/05/19 08:59 08/09/19 09:03 Escitalopram Oxalate (Lexapro) 5 mg DAILY ORAL 08/06/19 09:00 09/05/19 08:59 08/09/19 09:03 Finasteride (Proscar) 5 mg DAILY ORAL 08/07/19 15:45 11/05/19 15:44 08/09/19 09:03 Hydralazine HCl (Apresoline) 10 mg Q4H PRN IV BP over 160 systolic 08/06/19 12:30 11/04/19 12:29 08/08/19 13:56 Hydralazine HCl (Apresoline) 50 mg EVERY 8 HOURS ORAL 08/06/19 14:00 11/04/19 13:59 08/09/19 13:33 Iron Sucrose 100 mg/Sodium Chloride 55 ml @ 200 mls/hr BEDTIME IV 08/06/19 21:00 08/15/19 21:17 08/08/19 20:17 Lorazepam (Ativan 2mg/ml 1ml) 1 mg Q4H PRN IV For Anxiety or agitation 08/06/19 22:30 08/13/19 22:29 08/09/19 09:02 Morphine Sulfate (Morphine Sulfate) 0.5 mg Q4HR PRN IVP Severe Pain (Pain Scale 7-10) 08/07/19 15:45 08/14/19 15:44 08/07/19 18:06 Nifedipine (Procardia XL) 30 mg BID ORAL 08/06/19 18:00 09/05/19 17:59 08/09/19 09:03 Pantoprazole (Protonix) 40 mg EVERY 12 HOURS IVP 08/06/19 09:00 09/05/19 08:59 08/09/19 09:02 Sennosides (Senokot) 8.6 mg BEDTIME ORAL 08/06/19 21:00 09/05/19 20:59 08/08/19 20:22 Tamsulosin HCl (Flomax) 0.4 mg BEDTIME ORAL 08/06/19 21:00 09/05/19 20:59 08/08/19 20:22 Trazodone HCl (Desyrel) 50 mg BEDTIME ORAL 08/06/19 21:00 09/05/19 20:59 08/08/19 20:22 Laboratory Tests 08/09/19 06:08: White Blood Count 8.2, Red Blood Count 2.70L, Hemoglobin 8.2L, Hematocrit 23.5L , Mean Corpuscular Volume 87, Mean Corpuscular Hemoglobin 30.2, Mean Corpuscular Hemoglobin Concent 34.8, Red Cell Distribution Width 14.1, Platelet Count 138L, Mean Platelet Volume 7.4, Neutrophils (%) (Auto) 82.5H, Lymphocytes (%) (Auto) 5.9L, Monocytes (%) (Auto) 8.8, Eosinophils (%) (Auto) 2.3, Basophils (%) (Auto) 0.5, Sodium Level 150H, Potassium Level 3.0L, Chloride Level 117H, Carbon Dioxide Level 20L, Anion Gap 14, Blood Urea Nitrogen 28H, Creatinine 1.9H, Estimat Glomerular Filtration Rate 33.9, Glucose Level 117H, Calcium Level 9.0, Phosphorus Level 2.7, Magnesium Level 2.0, Total Bilirubin 0.4, Aspartate Amino Transf (AST/SGOT) 25, Alanine Aminotransferase (ALT/SGPT) 35, Alkaline Phosphatase 89, C-Reactive Protein, Quantitative 5.1H, Pro-B-Type Natriuretic Peptide 16740M, Total Protein 5.3L, Albumin 2.6L, Globulin 2.7, Albumin/Globulin Ratio 1.0 Height (Feet): 5 Height (Inches): 6.00 Weight (Pounds): 160 General Appearance: no apparent distress, other - Awake but not verbal Cardiovascular: normal rate Respiratory/Chest: decreased breath sounds Abdomen: soft Juan Jade MD Aug 09, 2019 13:39
--- NOTE | 2019-08-09 14:13 | NUR ---
CASE MANAGEMENT:REVIEW 08/09/19 SI: PLEURAL EFFUSION. GROSS HEMATURIA AC/CHR RENAL FAILURE. UTI. DEHYDRATION 96.7 65 20 158/67 95% ON 2L/NC H/H-8.2/23.5 NA+150 K-3.0 BUN+28 CR+1.9 IS: IVF@75/HR IV ROCEPHIN Q24 IV VENOFER QHS FLOMAX PO QHS HYDRALAZINE PO Q8HRS IV PROTONIX Q12 LEXAPRO PO QD : TELEMETRY STATUS DCP: FROM [facility]
--- NOTE | 2019-08-09 19:15 | NUR ---
NURSE NOTES: Received patient from Alisia RN. Patient in bed, on 2L NC, no signs of respiratory distress. Right forearm 24 gauge iv intact, patent, D5W infusing at 75ml/hr, in signs of infiltration, dressing dry and intact. Trevino catheter intact, patent, yellow output. Small amount of dried blood on tip of penis. Bed in low position, locked, bed alarm on, call light within reach, bilateral wrist restraints on for pulling at lines.
--- NOTE | 2019-08-09 19:20 | NUR ---
HAND-OFF: Report given to Aramis/RN, Patient is in stable condition. Endorsed plan of care.
--- NOTE | 2019-08-09 19:53 | NUR ---
NURSE NOTES: Spoke with caregiver and updated her on status of patient.
--- NOTE | 2019-08-09 20:00 | NUR ---
NURSE NOTES: irrigated doshi with sterile saline 50ml, no hematuria observed.
[2019-08-09] MEDS: Tamsulosin 0.4mg cap ORAL SCH (20:26)
[2019-08-09] MEDS: Sennosides 8.6mg tab ORAL SCH (20:26)
[2019-08-09] MEDS: TraZODone 50mg tab ORAL SCH (20:26)
--- NOTE | 2019-08-09 22:56 | NUR ---
NURSE NOTES: Irrigated doshi as ordered. Patient mumbling incoherently, when asked if he was in pain, patient stated "No."
--- NOTE | 2019-08-09 23:30 | Consultation ---
DATE OF CONSULTATION: 08/09/2019 CONSULTING PHYSICIAN: Loco Luu M.D. HISTORY OF PRESENT ILLNESS: This is an 83-year-old male with a history of depression and anxiety, who has been admitted to the hospital from [facility] after being treating the patient outside of the hospital at [facility] for depression. The patient is here for medical stabilization due to acute renal failure and encephalopathy. The patient is more confused than baseline. The patient has been agitated. Outside of the hospital, he has been on Lexapro and trazodone and been fairly stable. The patient has advance directives. He is unable to understand, process, or communicate rationally. He has waxing and waning consciousness, episodes of agitation, and on bilateral soft restraints. The patient lacks capacity to make decisions and has not been eating adequately. PAST PSYCHIATRIC HISTORY: Depression, anxiety, cognitive impairment. PAST MEDICAL HISTORY: Significant for anemia, CHF. ALLERGIES: No known drug allergies. SUBSTANCE ABUSE HISTORY: No known history of illicit drug use or alcohol. MENTAL STATUS EXAMINATION: The patient is opening eyes upon verbal stimuli. He is confused, disoriented, answers the questions, attempting to come out of bed, and is difficult to redirect. Mood is agitated. Affect is flat. Thought process is disorganized. Thought content, no suicidal or homicidal ideation. Positive for delusions. Insight and judgment is impaired. Cognition is impaired. memory, concentration, attention. ASSESSMENT: Fults I Acute encephalopathy. Major depressive disorder. Fults II Deferred. Fults III Altered mental status. Fults IV Low. Fults V 20. PLAN: 1. We will start the patient on Zyprexa 2.5 in the morning, 5 mg at bedtime. Discontinue the Lexapro. 2. Discontinue the trazodone. 3. The patient lacks capacity to make decision. The power of real estate associate attorney should be in place. Loco Luu M.D. DR: TONYA JOB#: [id number] CC:
--- NOTE | 2019-08-09 23:57 | NUR ---
NURSE NOTES: Patient saturating at 85-90 %. LOC at baseline. Breathing treatment administered. Saturation at 96% on 4L NC.
[2019-08-10] VITALS: BP 149/57
[2019-08-10] MEDS: LORazepam Inj 2mg/ml 1ml IV PRN (00:39)
--- NOTE | 2019-08-10 00:41 | NUR ---
NURSE NOTES: Patient still anxious, mumbling loudly, incoherently. Administered another dose of ativan 1mg ivp prn.
--- NOTE | 2019-08-10 01:40 | NUR ---
NURSE NOTES: Patient appears more calm. Titrated down to 2L NC, o2sat at 93%. Trevino catheter irrigated.
--- NOTE | 2019-08-10 02:41 | NUR ---
NURSE NOTES: Patient stopped talking, asleep, o2sat 97% on 2L NC.
--- NOTE | 2019-08-10 03:30 | Progress Note ---
DATE: 08/09/2019 CARDIOLOGY PROGRESS NOTE SUBJECTIVE: Monitored rhythm junctional. No pauses. No bradyarrhythmias. Blood pressure labile ____ high normal range predominantly. LUNGS: Clear. CARDIAC: ____. Normal S1 and S2. ABDOMEN: Soft. EXTREMITIES: No edema. LABORATORY DATA: White count 8.2, hemoglobin 8.2, and platelets 138,000. Sodium 150, potassium 3, bicarbonate 20, BUN 28, and creatinine 1.9. Pro-natriuretic peptide 14,000. Echocardiogram with normal ejection fraction and severe pulmonary hypertension. IMPRESSION: 1. Valvular cardiomyopathy. 2. Severe pulmonary hypertension. 3. Junctional heart rhythm. 4. History of mitral valve repair. 5. Frequent falls. 6. Concern remains over associated bradyarrhythmia. 7. Dehydration. 8. Hypernatremia. 9. Hypokalemia. 10. Metabolic acidosis. 11. Acute on chronic renal failure, improved. PLAN: 1. No diuretics. 2. Continue antimicrobials. 3. Cautious hydration with hypotonic fluids. 4. Iron replacement. 5. Titrate antihypertensives. 6. Replace potassium. 7. Recheck magnesium. 8. Outpatient Zio Patch to assess for arrhythmias. Gamaliel Salas M.D. DR: ANDRE JOB#: [id number] CC:
[2019-08-10 04:00] VITALS: BP 144/73
[2019-08-10] MEDS: cefTRIAXone 1 GM in D5W 55 ML IVPB SCH (05:23)
[2019-08-10] MEDS: HydrALAZINE 50mg tab ORAL SCH ×3 (05:23→21:31)
[2019-08-10 07:00] LABS: ALANINE AMINOTRANSFERASE 35 U/L (12-78); ALBUMIN 2.6 G/DL (3.4-5.0); ALKALINE PHOSPHATASE 88 U/L (46-116); ANION GAP 13 mmol/L (5-15); ASPARTATE AMINO TRANSFERASE 24 U/L (15-37); BILIRUBIN,TOTAL 0.5 MG/DL (0.2-1.0); BLOOD UREA NITROGEN 23 mg/dL (7-18); CALCIUM 8.9 MG/DL (8.5-10.1); CARBON DIOXIDE 19 MMOL/L (21-32); CHLORIDE 114 MMOL/L (98-107); CREATININE 1.8 MG/DL (0.55-1.30); POTASSIUM 3.2 MMOL/L (3.5-5.1); SODIUM 146 MMOL/L (136-145)
--- NOTE | 2019-08-10 07:29 | NUR ---
HAND-OFF: Report given to Chata GOULD.
[2019-08-10 08:00] VITALS: BP 140/70
--- NOTE | 2019-08-10 08:55 | NUR ---
RD ASSESSMENT & RECOMMENDATIONS SEE CARE ACTIVITY FOR COMPLETE ASSESSMENT DAILY ESTIMATED NEEDS: Needs based on Wound, 66.8kg 28-33 kcals/kg 9429-1285 total kcals 1.25-1.5 g protein/kg 84-100 g total protein 25-30 mL/kg 7134-4761 total fluid mLs NUTRITION DIAGNOSIS: Swallowing difficulty r/t dysphagia and ams as evidenced by s/p MARKETING SALES CONSULTANT eval, poor cognition, pt now on liquify puree texture diet w/ NTL. CURRENT DIET: Liquify puree NTL Regular PO DIET RECOMMENDATIONS: Maintain Regular diet, texture per MARKETING SALES CONSULTANT ADDITIONAL RECOMMENDATIONS: 1) Add Ensure TID w/ meals 2) Maintain calibrated bed scale wts EMR wt: 160# vs Bed scale wt: 147# 3) Monitor hydration status, maintain D5 as able 4) Wound care: Add ALEJANDRA BID as tolerated + Vit C 250mg daily
--- NOTE | 2019-08-10 09:15 | Urology Progress Note ---
Assessment/Plan Status: stable, not improved Assessment/Plan: 1. Gross hematuria, presumably secondary to Doshi trauma. 2. BPH. 3. Urinary retention. 4. Neurogenic bladder. 5. Pyuria. 6. Proteinuria. 7. Renal insufficiency, which appears to be acute on chronic. 8. Rule out urethral stricture. monitor clinically maintain doshi, placed 08/06 hand irrigated and do PRN, minimal clots cont flomax and proscar abx as ordered off anticoagulation, resume soon? restraints cysto at some point voiding trial later d/w nursing staff Subjective Allergies: Coded Allergies: No Known Allergies (Unverified , 06/05/19) Subjective all noted, confused, nurses hand irrigated doshi Objective Last 24 Hour Vital Signs Date Time Temp Pulse Resp B/P (MAP) Pulse Ox O2 Delivery O2 Flow Rate FiO2 08/10/19 05:23 144/73 08/10/19 04:00 66 08/10/19 04:00 97.5 70 20 144/73 (96) 95 08/10/19 04:00 2.0 08/10/19 00:00 66 08/10/19 00:00 4.0 08/10/19 00:00 98.2 64 20 149/57 (87) 90 08/09/19 22:10 145/61 08/09/19 22:05 70 145/61 (89) 08/09/19 21:00 Nasal Cannula 2.0 08/09/19 20:32 97.9 68 20 147/58 (87) 93 08/09/19 20:00 2.0 08/09/19 20:00 63 08/09/19 19:55 98 Nasal Cannula 2.0 28 08/09/19 19:55 72 16 98 Nasal Cannula 2.0 28 08/09/19 17:31 64 159/65 08/09/19 16:00 96.3 64 20 159/65 (96) 93 08/09/19 16:00 2.0 08/09/19 16:00 73 08/09/19 13:33 158/67 08/09/19 12:00 73 08/09/19 12:00 2.0 08/09/19 12:00 96.7 65 20 158/67 (97) 95 Intake and Output 08/09/19 08/10/19 19:00 07:00 Intake Total 440 ml 240 ml Output Total 650 ml 650 ml Balance -210 ml -410 ml Intake Oral 440 ml 240 ml Output Urine Total 650 ml 650 ml # Voids 2 # Bowel Movements 1 Microbiology Date/Time Source Procedure Growth Status 08/06/19 04:45 Nasal Nares - Final Complete 08/06/19 04:45 Nasal Nares - Final Complete 08/06/19 04:45 Rectum VRE Culture - Final NO VANCOMYCIN RESISTANT ENTEROCOCCUS ... Complete Current Medications Medications (Trade) Dose Ordered Sig/Kristine Route PRN Reason Start Time Stop Time Status Last Admin Dose Admin Acetaminophen (Tylenol) 500 mg Q6H PRN ORAL Mild Pain/Temp > 100.5 08/06/19 08:56 09/05/19 08:55 08/07/19 10:47 Albuterol Sulfate (Proventil) 2.5 mg Q4H PRN HHN Shortness of Breath 08/06/19 08:15 08/11/19 08:14 08/09/19 23:53 Ceftriaxone Sodium 1 gm/ Dextrose 55 ml @ 110 mls/hr Q24H IVPB 08/07/19 05:00 08/14/19 04:59 08/10/19 05:23 Dextrose 1,000 ml @ 75 mls/hr [id number] IV 08/09/19 09:00 09/08/19 08:59 08/09/19 22:18 Docusate Sodium (Colace) 250 mg DAILY ORAL 08/06/19 09:00 09/05/19 08:59 08/09/19 09:03 Finasteride (Proscar) 5 mg DAILY ORAL 08/07/19 15:45 11/05/19 15:44 08/09/19 09:03 Hydralazine HCl (Apresoline) 10 mg Q4H PRN IV BP over 160 systolic 08/06/19 12:30 11/04/19 12:29 08/08/19 13:56 Hydralazine HCl (Apresoline) 50 mg EVERY 8 HOURS ORAL 08/06/19 14:00 11/04/19 13:59 08/10/19 05:23 Iron Sucrose 100 mg/Sodium Chloride 55 ml @ 200 mls/hr BEDTIME IV 08/06/19 21:00 08/15/19 21:17 08/09/19 20:14 Lorazepam (Ativan 2mg/ml 1ml) 1 mg Q4H PRN IV For Anxiety or agitation 08/06/19 22:30 08/13/19 22:29 08/10/19 00:39 Morphine Sulfate (Morphine Sulfate) 0.5 mg Q4HR PRN IVP Severe Pain (Pain Scale 7-10) 08/07/19 15:45 08/14/19 15:44 08/07/19 18:06 Nifedipine (Procardia XL) 30 mg BID ORAL 08/06/19 18:00 09/05/19 17:59 08/09/19 17:31 Olanzapine (ZyPREXA) 2.5 mg DAILY ORAL 08/10/19 09:00 09/24/19 08:59 Olanzapine (ZyPREXA) 5 mg QHS ORAL 08/10/19 21:00 09/24/19 20:59 Pantoprazole (Protonix) 40 mg EVERY 12 HOURS IVP 08/06/19 09:00 09/05/19 08:59 08/09/19 20:26 Sennosides (Senokot) 8.6 mg BEDTIME ORAL 08/06/19 21:00 09/05/19 20:59 08/09/19 20:26 Tamsulosin HCl (Flomax) 0.4 mg BEDTIME ORAL 08/06/19 21:00 09/05/19 20:59 08/09/19 20:26 Laboratory Tests 08/10/19 04:28: Sodium Level 146H, Potassium Level 3.2L, Chloride Level 114H, Carbon Dioxide Level 19L, Anion Gap 13, Blood Urea Nitrogen 23H, Creatinine 1.8H, Estimat Glomerular Filtration Rate 36.1, Glucose Level 125H, Calcium Level 8.9, Total Bilirubin 0.5, Aspartate Amino Transf (AST/SGOT) 24, Alanine Aminotransferase ( ALT/SGPT) 35, Alkaline Phosphatase 88, Total Protein 5.3L, Albumin 2.6L, Globulin 2.7, Albumin/Globulin Ratio 1.0 Height (Feet): 5 Height (Inches): 6.00 Weight (Pounds): 147 Objective exam stable abdomen soft, doshi indwelling, urine denia/blood tinged Miki Calzada MD Aug 10, 2019 09:15
[2019-08-10] MEDS ORDERED: Varibar Nectar 240ml MC PRN (10:15)
[2019-08-10] MEDS ORDERED: Varibar Pudding 230ml MC PRN (10:15)
[2019-08-10] MEDS ORDERED: Varibar Honey 250ml MC PRN (10:15)
--- NOTE | 2019-08-10 10:16 | Pulmonology Progress Note ---
Assessment/Plan Assessment/Plan IMPRESSION: 1. Pleural effusion, right side. 2. Atelectasis. 3. Pulmonary edema, questionable. 4. Hypertension. 5. Hyperlipidemia. DISCUSSION: Currently, the patient is saturating well on room air or low flow O2. 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 no new recommendations Kimani Hahn M.D. Subjective Interval Events: none reported new Constitutional: Reports: no symptoms HEENT: Repors: no symptoms Respiratory: Reports: no symptoms Cardiovascular: Reports: no symptoms Gastrointestinal/Abdominal: Reports: no symptoms Allergies: Coded Allergies: No Known Allergies (Unverified , 06/05/19) Objective Last 24 Hour Vital Signs Date Time Temp Pulse Resp B/P (MAP) Pulse Ox O2 Delivery O2 Flow Rate FiO2 08/10/19 09:31 2.0 08/10/19 09:00 Nasal Cannula 2.0 08/10/19 08:00 97.5 70 20 140/70 (93) 95 08/10/19 08:00 67 08/10/19 05:23 144/73 08/10/19 04:00 66 08/10/19 04:00 97.5 70 20 144/73 (96) 95 08/10/19 04:00 2.0 08/10/19 00:00 66 08/10/19 00:00 4.0 08/10/19 00:00 98.2 64 20 149/57 (87) 90 08/09/19 22:10 145/61 08/09/19 22:05 70 145/61 (89) 08/09/19 21:00 Nasal Cannula 2.0 08/09/19 20:32 97.9 68 20 147/58 (87) 93 08/09/19 20:00 2.0 08/09/19 20:00 63 08/09/19 19:55 98 Nasal Cannula 2.0 28 08/09/19 19:55 72 16 98 Nasal Cannula 2.0 28 08/09/19 17:31 64 159/65 08/09/19 16:00 96.3 64 20 159/65 (96) 93 3/24/20 16:00 2.0 08/09/19 16:00 73 08/09/19 13:33 158/67 08/09/19 12:00 73 08/09/19 12:00 2.0 08/09/19 12:00 96.7 65 20 158/67 (97) 95 Intake and Output 08/09/19 08/10/19 19:00 07:00 Intake Total 440 ml 240 ml Output Total 650 ml 650 ml Balance -210 ml -410 ml Intake Oral 440 ml 240 ml Output Urine Total 650 ml 650 ml # Voids 2 # Bowel Movements 1 General Appearance: no acute distress HEENT: normocephalic Respiratory/Chest: chest wall non-tender Cardiovascular: normal peripheral pulses Abdomen: normal bowel sounds Laboratory Tests 08/10/19 04:28: Sodium Level 146H, Potassium Level 3.2L, Chloride Level 114H, Carbon Dioxide Level 19L, Anion Gap 13, Blood Urea Nitrogen 23H, Creatinine 1.8H, Estimat Glomerular Filtration Rate 36.1, Glucose Level 125H, Calcium Level 8.9, Total Bilirubin 0.5, Aspartate Amino Transf (AST/SGOT) 24, Alanine Aminotransferase ( ALT/SGPT) 35, Alkaline Phosphatase 88, Total Protein 5.3L, Albumin 2.6L, Globulin 2.7, Albumin/Globulin Ratio 1.0 Current Medications Medications (Trade) Dose Ordered Sig/Kristine Route PRN Reason Start Time Stop Time Status Last Admin Dose Admin Acetaminophen (Tylenol) 500 mg Q6H PRN ORAL Mild Pain/Temp > 100.5 08/06/19 08:56 09/05/19 08:55 08/07/19 10:47 Albuterol Sulfate (Proventil) 2.5 mg Q4H PRN HHN Shortness of Breath 08/06/19 08:15 08/11/19 08:14 08/09/19 23:53 Barium Sulfate (Varibar Honey) 250 ml NOW PRN MC RAD 08/10/19 10:15 08/13/19 10:06 Barium Sulfate (Varibar [place]) 240 ml NOW PRN MC RAD 08/10/19 10:15 08/13/19 10:06 Barium Sulfate (Varibar Pudding) 230 ml NOW PRN MC RAD 08/10/19 10:15 08/13/19 10:06 Ceftriaxone Sodium 1 gm/ Dextrose 55 ml @ 110 mls/hr Q24H IVPB 08/07/19 05:00 08/14/19 04:59 08/10/19 05:23 Dextrose 1,000 ml @ 75 mls/hr [id number] IV 08/09/19 09:00 09/08/19 08:59 08/09/19 22:18 Docusate Sodium (Colace) 250 mg DAILY ORAL 08/06/19 09:00 09/05/19 08:59 08/09/19 09:03 Finasteride (Proscar) 5 mg DAILY ORAL 08/07/19 15:45 11/05/19 15:44 08/09/19 09:03 Hydralazine HCl (Apresoline) 10 mg Q4H PRN IV BP over 160 systolic 08/06/19 12:30 11/04/19 12:29 08/08/19 13:56 Hydralazine HCl (Apresoline) 50 mg EVERY 8 HOURS ORAL 08/06/19 14:00 11/04/19 13:59 08/10/19 05:23 Iron Sucrose 100 mg/Sodium Chloride 55 ml @ 200 mls/hr BEDTIME IV 08/06/19 21:00 08/15/19 21:17 08/09/19 20:14 Lorazepam (Ativan 2mg/ml 1ml) 1 mg Q4H PRN IV For Anxiety or agitation 08/06/19 22:30 08/13/19 22:29 08/10/19 00:39 Morphine Sulfate (Morphine Sulfate) 0.5 mg Q4HR PRN IVP Severe Pain (Pain Scale 7-10) 08/07/19 15:45 08/14/19 15:44 08/07/19 18:06 Nifedipine (Procardia XL) 30 mg BID ORAL 08/06/19 18:00 09/05/19 17:59 08/09/19 17:31 Olanzapine (ZyPREXA) 2.5 mg DAILY ORAL 08/10/19 09:00 09/24/19 08:59 Olanzapine (ZyPREXA) 5 mg QHS ORAL 08/10/19 21:00 09/24/19 20:59 Pantoprazole (Protonix) 40 mg EVERY 12 HOURS IVP 08/06/19 09:00 09/05/19 08:59 08/09/19 20:26 Sennosides (Senokot) 8.6 mg BEDTIME ORAL 08/06/19 21:00 09/05/19 20:59 08/09/19 20:26 Tamsulosin HCl (Flomax) 0.4 mg BEDTIME ORAL 08/06/19 21:00 09/05/19 20:59 08/09/19 20:26 Kimani Hahn MD Aug 10, 2019 10:16
[2019-08-10] MEDS: Pantoprazole Inj IVP SCH ×2 (10:36→21:00)
[2019-08-10] MEDS: OLANZapine 2.5mg tab ORAL SCH (10:36)
[2019-08-10] MEDS: Docusate 250mg cap ORAL SCH (10:36)
[2019-08-10 12:00] VITALS: BP 145/51
--- NOTE | 2019-08-10 12:08 | NUR ---
CASE MANAGEMENT:REVIEW 08/10/19 SI: AC/CHR RENAL FAILURE. UTI. DEHYDRATION JUNCTIONAL HEART RHYTHM 97.5 70 20 140/70 95% ON 2L/NC BUN+23 CR+1.8 GLUCOSE+125 IS: ZYPREXA PO QHS IVF@75/HR IV ROCEPHIN Q24 IV VENOFER QHS FLOMAX PO QHS PROCARDIA XL PO BID HYDRALAZINE PO Q8HRS IV PROTONIX Q12 : TELEMETRY STATUS DCP: FROM [facility]
--- NOTE | 2019-08-10 12:23 | NUR ---
ST NOTE (VIDEO) COMPLETED MODIFIED BARIUM SWALLOW STUDY (MBSS), SEE FULL REPORT TO FOLLOW. 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 THIN LIQUIDS - NO ASPIRATION WITH TSP AND CUP (SIP) AUDIBLE TRACE ASPIRATION WITH SEQUENTIAL SIPS VIA STRAW AND WITH CHIN TUCK. NECTAR THICK LIQUIDS (TSP/CUP/SEQUENTIAL SIPS), HONEY THICK LIQUIDS (TSP), PUDDING (TSP), AND MASTICATED SOLIDS (1/2 BUTTER COOKIE AND 3 CC PUDDING) - NO ASPIRATION NOR SIGNIFICANT LARYNGEAL PENETRATION HIGH ASPIRATION/PENETRATION RISKS AND REDUCED SWALLOW EFFICIENCY DUE TO THE FOLLOWING COMPONENTS/DEFICITS: Oral Impairment oral sensory awareness/sensation (chews honey thick liquid and pudding) Lip Closure Tongue Control Bolus prep/mastication Bolus sanchez/lingual motion Oral residue and sensation Init. pharyngeal swallow Pharyngeal Impairment Laryngeal elevation (LE) Ant. hyoid excursion Epiglottic movement Late and incomplete laryngeal vestibule closure Pharyngeal stripping wave Pharyngoesophageal segment opening Tongue base retraction Pharyngeal residue Decreased pharyngeal sensation ESOPHAGEAL PHASE - GROSSLY FUNCTIONAL BUT LIMITED IN LATERAL VIEW TRIAL TX: BENEFITS INCONSISTENTLY WITH CHIN TUCK BUT REQUIRED MAX TACTILE CUES, EXTRA SWALLOW (OP RESIDUE), ONE SMALL SIP AT A TIME, MORE TIME, ALTERNATE SOLIDS WITH LIQUIDS. RECOMMENDATIONS: CONTINUE WITH CURRENT PUREED AND NECTAR THICK LIQUIDS USING UPDATED AND POSTED ASPIRATION AND REFLUX PRECAUTIONS WITH ONE TO ONE FEEDING. EDUCATED/TRAINED RN IN UPDATED PRECAUTION.
[2019-08-10] MEDS: Morphine Sulfate 2mg/ml Inj(IV/IM USE ONLY) IVP PRN (13:35)
--- NOTE | 2019-08-10 14:04 | NUR ---
*-* INSURANCE *-* ALL CLINICALS AND REVIEWS HAVE BEEN FAXED TO: [facility] FAX CLINICALS TO [phone]
--- NOTE | 2019-08-10 14:09 | Nephrology Progress Note ---
Assessment/Plan Problem List: (1) Renal failure (ARF), acute on chronic Assessment: Serum creatinine gradually decreasing (2) Falls frequently (3) UTI (urinary tract infection) Assessment: and hematuria (4) Anemia (5) Dehydration (6) Encephalopathy due to metabolic factor or toxin Assessment Frequent falls Acute renal failure with underlying dehydration Anemia, underlying etiology unclear UTI (urinary tract infection) Toxic metabolic encephalopathy Plan Clinically improving ST evaluation noted and discussed with speech therapist Correct electrolytes as needed Transfusion as needed Low IV hydration 2D echocardiogram ejection fraction 60% Kidney ultrasound pending results Monitor renal parameters Avoid nephrotoxics Antibiotics for UTI Continue per consultants Subjective ROS Limited/Unobtainable: No Constitutional: Reports: malaise, other - Appears more responsive and less agitated Objective Objective Last 24 Hour Vital Signs Date Time Temp Pulse Resp B/P (MAP) Pulse Ox O2 Delivery O2 Flow Rate FiO2 08/10/19 13:34 145/51 08/10/19 12:00 66 08/10/19 12:00 2.0 08/10/19 12:00 98.1 65 18 145/51 (82) 98 08/10/19 10:36 67 140/70 08/10/19 09:31 2.0 08/10/19 09:00 Nasal Cannula 2.0 08/10/19 08:00 97.5 70 20 140/70 (93) 95 08/10/19 08:00 67 08/10/19 07:00 67 16 95 Nasal Cannula 2.0 28 08/10/19 07:00 95 Nasal Cannula 2.0 28 08/10/19 05:23 144/73 08/10/19 04:00 66 08/10/19 04:00 97.5 70 20 144/73 (96) 95 08/10/19 04:00 2.0 08/10/19 00:00 66 08/10/19 00:00 4.0 08/10/19 00:00 98.2 64 20 149/57 (87) 90 08/09/19 22:10 145/61 08/09/19 22:05 70 145/61 (89) 08/09/19 21:00 Nasal Cannula 2.0 08/09/19 20:32 97.9 68 20 147/58 (87) 93 08/09/19 20:00 2.0 08/09/19 20:00 63 08/09/19 19:55 98 Nasal Cannula 2.0 28 08/09/19 19:55 72 16 98 Nasal Cannula 2.0 28 08/09/19 17:31 64 159/65 08/09/19 16:00 96.3 64 20 159/65 (96) 93 08/09/19 16:00 2.0 08/09/19 16:00 73 Intake and Output 08/09/19 08/10/19 19:00 07:00 Intake Total 440 ml 240 ml Output Total 650 ml 650 ml Balance -210 ml -410 ml Intake Oral 440 ml 240 ml Output Urine Total 650 ml 650 ml # Voids 2 # Bowel Movements 1 Laboratory Tests 08/10/19 04:28: Sodium Level 146H, Potassium Level 3.2L, Chloride Level 114H, Carbon Dioxide Level 19L, Anion Gap 13, Blood Urea Nitrogen 23H, Creatinine 1.8H, Estimat Glomerular Filtration Rate 36.1, Glucose Level 125H, Calcium Level 8.9, Total Bilirubin 0.5, Aspartate Amino Transf (AST/SGOT) 24, Alanine Aminotransferase ( ALT/SGPT) 35, Alkaline Phosphatase 88, Total Protein 5.3L, Albumin 2.6L, Globulin 2.7, Albumin/Globulin Ratio 1.0 Height (Feet): 5 Height (Inches): 6.00 Weight (Pounds): 147 General Appearance: no apparent distress Cardiovascular: normal rate Respiratory/Chest: decreased breath sounds Abdomen: soft Juan Jade MD Aug 10, 2019 14:09
--- NOTE | 2019-08-10 14:15 | General Progress Note ---
Assessment/Plan Problem List: (1) CHF (congestive heart failure) ICD Codes: I50.9 - Heart failure, unspecified SNOMED: 21392849 (2) Renal failure (ARF), acute on chronic ICD Codes: N17.9 - Acute kidney failure, unspecified; N18.9 - Chronic kidney disease, unspecified SNOMED: 904081511 (3) Encephalopathy due to metabolic factor or toxin SNOMED: 432791803 (4) Gross hematuria ICD Codes: R31.0 - Gross hematuria SNOMED: 382076674 (5) Falls frequently ICD Codes: R29.6 - Repeated falls SNOMED: 543723691 (6) Dehydration ICD Codes: E86.0 - Dehydration SNOMED: 04717955 (7) UTI (urinary tract infection) ICD Codes: N39.0 - Urinary tract infection, site not specified SNOMED: 95157592 (8) Anemia ICD Codes: D64.9 - Anemia, unspecified SNOMED: 000993697 Status: stable, not improved Assessment/Plan: cont current rx monitor cxr o2 resp care iv abx anxiolytics IVF with caution monitor renal fxn and lytes doshi restraints for safety Subjective ROS Limited/Unobtainable: No Constitutional: Reports: malaise, weakness HEENT: Reports: no symptoms Cardiovascular: Reports: no symptoms Respiratory: Reports: cough, shortness of breath Gastrointestinal/Abdominal: Reports: no symptoms Genitourinary: Reports: no symptoms Neurologic/Psychiatric: Reports: anxiety, emotional problems Endocrine: Reports: no symptoms Hematologic/Lymphatic: Reports: anemia Allergies: Coded Allergies: No Known Allergies (Unverified , 06/05/19) All Systems: reviewed and negative except above Subjective no events. more alert. remains anxious and agitated, trying to get out of bed. no fevers or chills. on o2 and hypotonic ivf. Na trending down no bleeding. h/h stable Objective Last 24 Hour Vital Signs Date Time Temp Pulse Resp B/P (MAP) Pulse Ox O2 Delivery O2 Flow Rate FiO2 08/10/19 14:07 98.1 08/10/19 13:34 145/51 08/10/19 12:00 66 08/10/19 12:00 2.0 08/10/19 12:00 98.1 65 18 145/51 (82) 98 08/10/19 10:36 67 140/70 08/10/19 09:31 2.0 08/10/19 09:00 Nasal Cannula 2.0 08/10/19 08:00 97.5 70 20 140/70 (93) 95 08/10/19 08:00 67 08/10/19 07:00 67 16 95 Nasal Cannula 2.0 28 08/10/19 07:00 95 Nasal Cannula 2.0 28 08/10/19 05:23 144/73 08/10/19 04:00 66 08/10/19 04:00 97.5 70 20 144/73 (96) 95 08/10/19 04:00 2.0 08/10/19 00:00 66 08/10/19 00:00 4.0 08/10/19 00:00 98.2 64 20 149/57 (87) 90 08/09/19 22:10 145/61 08/09/19 22:05 70 145/61 (89) 08/09/19 21:00 Nasal Cannula 2.0 08/09/19 20:32 97.9 68 20 147/58 (87) 93 08/09/19 20:00 2.0 08/09/19 20:00 63 08/09/19 19:55 98 Nasal Cannula 2.0 28 08/09/19 19:55 72 16 98 Nasal Cannula 2.0 28 08/09/19 17:31 64 159/65 08/09/19 16:00 96.3 64 20 159/65 (96) 93 08/09/19 16:00 2.0 08/09/19 16:00 73 Intake and Output 08/09/19 08/10/19 19:00 07:00 Intake Total 440 ml 240 ml Output Total 650 ml 650 ml Balance -210 ml -410 ml Intake Oral 440 ml 240 ml Output Urine Total 650 ml 650 ml # Voids 2 # Bowel Movements 1 Laboratory Tests 08/10/19 04:28: Sodium Level 146H, Potassium Level 3.2L, Chloride Level 114H, Carbon Dioxide Level 19L, Anion Gap 13, Blood Urea Nitrogen 23H, Creatinine 1.8H, Estimat Glomerular Filtration Rate 36.1, Glucose Level 125H, Calcium Level 8.9, Total Bilirubin 0.5, Aspartate Amino Transf (AST/SGOT) 24, Alanine Aminotransferase ( ALT/SGPT) 35, Alkaline Phosphatase 88, Total Protein 5.3L, Albumin 2.6L, Globulin 2.7, Albumin/Globulin Ratio 1.0 Height (Feet): 5 Height (Inches): 6.00 Weight (Pounds): 147 General Appearance: WD/WN, alert, confused Neck: supple Cardiovascular: regular rhythm Respiratory/Chest: rhonchi - bilaterally Abdomen: normal bowel sounds, non tender, soft, no organomegaly, no mass Edema: no edema noted Arm (L), no edema noted Arm (R), no edema noted Leg (L), no edema noted Leg (R), no edema noted Pedal (L), no edema noted Pedal (R), no edema noted 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
[2019-08-10 15:58] VITALS: BP 152/75
--- NOTE | 2019-08-10 19:20 | NUR ---
HAND-OFF: Report given to Wolfgang GOULD.
--- NOTE | 2019-08-10 19:22 | NUR ---
NURSE NOTES: Received pt from LUIS FERNANDO araujo. Pt is awake and resting in bed in no acute distress, with HOB elevated. Pt iv site intact and patent. Bed locked in lowest position, bed alarm on, call light within reach. Fall precautions active. Restraints on with 2 finger length space. Trevino catheter intact and patent. Will continue with plan of care.
[2019-08-10 20:00] VITALS: BP 157/60
[2019-08-10] MEDS: Tamsulosin 0.4mg cap ORAL SCH (21:00)
[2019-08-10] MEDS: Sennosides 8.6mg tab ORAL SCH (21:00)
--- NOTE | 2019-08-10 21:45 | Progress Note ---
DATE: 08/10/2019 SUBJECTIVE: The patient is able to answer the questions. The patient is confused and disoriented, in restraints. The patient was less agitated last night and was able to sleep. MENTAL STATUS EXAMINATION: The patient is asleep, arousable, confused, disoriented. Mood is anxious. Affect is flat. Thought process is concrete. Thought content, no suicidal or homicidal ideation. Cognition is impaired. ASSESSMENT: Acute encephalopathy. PLAN: Continue current psychotropic medications. Loco Luu M.D. DR: LETY JOB#: [id number] CC:
[2019-08-11] VITALS (7 sets, daily range): BP systolic 133–185; BP diastolic 57–87
--- NOTE | 2019-08-11 04:00 | Progress Note ---
DATE: 08/10/2019 CARDIOLOGY PROGRESS NOTE SUBJECTIVE: The patient still has episodes of agitation, anxiety, and confusion. He remains on nasal oxygen and IV fluids. Monitor reveals junctional rhythm. No pauses. PHYSICAL EXAMINATION: VITAL SIGNS: Blood pressure 157/60, heart rate 70, and respiratory rate 16. LUNGS: Bilateral breath sounds. No wheezes. CARDIAC: Regular rhythm and rate. Normal S1 and S2. A 1/6 systolic murmur at apex. ABDOMEN: Soft. EXTREMITIES: No edema. LABORATORY DATA: White count 8.2 and hemoglobin 8.2. Sodium 146, potassium 3.2, bicarb 19, BUN 23, and creatinine 1.8. IMPRESSION: 1. Valvular heart disease. 2. Mitral valve repair. 3. Junctional rhythm. 4. Conduction system disease with bifascicular block. 5. Hypokalemia. 6. Metabolic acidosis. 7. Acute renal failure, improved. 8. Dehydration. 9. Hypernatremia. 10. Moderate protein-calorie malnutrition. 11. Anemia. 12. Dementia with agitation. PLAN: 1. Continue cardiac monitoring. 2. Outpatient Zio Patch to assess for advanced conduction system disease that may be associated with the patient's falls. 3. Potassium replacement. 4. Check magnesium. 5. Hypotonic IV fluid hydration. 6. Iron replacement. 7. Monitor for further drop in hemoglobin and consider transfusion. 8. Titrate antihypertensive regimen based on clinical parameters. 9. Psychotropic therapy and psych followup. Gamaliel Salas M.D. DR: TOLU JOB#: [id number] CC:
[2019-08-11] MEDS: cefTRIAXone 1 GM in D5W 55 ML IVPB SCH (05:14)
[2019-08-11] MEDS: HydrALAZINE 50mg tab ORAL SCH ×3 (06:00→21:53)
--- NOTE | 2019-08-11 07:05 | NUR ---
HAND-OFF: Report given to LUIS FERNANDO Juárez.
--- NOTE | 2019-08-11 07:22 | NUR ---
NURSE NOTES: Received report from LUIS FERNANDO Magallanes. Pt awake, A/O x1, on 2L oxygen (97% O2 sat). No s/sx of acute distress. Pt on B soft wrist restraints, pulses are present. IV site intact and asymptomatic, running IVF at 75ml/hr. Bed on lowest position, call light within reach. Will continue plan of care.
--- NOTE | 2019-08-11 07:32 | General Progress Note ---
Assessment/Plan Problem List: (1) CHF (congestive heart failure) ICD Codes: I50.9 - Heart failure, unspecified SNOMED: 76630034 (2) Renal failure (ARF), acute on chronic ICD Codes: N17.9 - Acute kidney failure, unspecified; N18.9 - Chronic kidney disease, unspecified SNOMED: 694304538 (3) Encephalopathy due to metabolic factor or toxin SNOMED: 271613043 (4) Gross hematuria ICD Codes: R31.0 - Gross hematuria SNOMED: 413688748 (5) Falls frequently ICD Codes: R29.6 - Repeated falls SNOMED: 647427341 (6) Dehydration ICD Codes: E86.0 - Dehydration SNOMED: 92711498 (7) UTI (urinary tract infection) ICD Codes: N39.0 - Urinary tract infection, site not specified SNOMED: 44910107 (8) Anemia ICD Codes: D64.9 - Anemia, unspecified SNOMED: 097690625 Status: stable, progressing, not improved Assessment/Plan: cont current rx repeat cxr resp rx and o2 iv abx to cover for pna anxiolytics monitor renal fxn and lytes doshi restraints for safety Subjective ROS Limited/Unobtainable: No Constitutional: Reports: malaise, weakness HEENT: Reports: no symptoms Cardiovascular: Reports: no symptoms Respiratory: Reports: cough, shortness of breath Gastrointestinal/Abdominal: Reports: no symptoms Genitourinary: Reports: no symptoms Neurologic/Psychiatric: Reports: anxiety, emotional problems Endocrine: Reports: no symptoms Hematologic/Lymphatic: Reports: no symptoms Allergies: Coded Allergies: No Known Allergies (Unverified , 06/05/19) All Systems: reviewed and negative except above Subjective more hypoxic last night. desaturating on nasal cannula. placed on venti mask. alert. confused. mumbling. Objective Last 24 Hour Vital Signs Date Time Temp Pulse Resp B/P (MAP) Pulse Ox O2 Delivery O2 Flow Rate FiO2 08/11/19 06:00 175/84 08/11/19 04:59 154/87 (109) 08/11/19 04:00 2.0 08/11/19 04:00 54 08/11/19 04:00 97.7 54 16 185/75 (111) 100 08/11/19 03:37 182/75 08/11/19 00:00 72 08/11/19 00:00 99.7 72 16 142/80 (100) 99 08/10/19 21:31 159/63 08/10/19 21:00 Nasal Cannula 2.0 08/10/19 20:03 66 18 96 Venturi Mask 8.0 40 08/10/19 20:03 96 Venturi Mask 8.0 40 08/10/19 20:00 97.7 70 16 157/60 (92) 96 08/10/19 20:00 70 08/10/19 20:00 2.0 08/10/19 18:08 78 152/75 08/10/19 16:00 78 08/10/19 15:58 97.5 77 18 152/75 (100) 99 08/10/19 15:40 2.0 08/10/19 14:07 98.1 08/10/19 13:34 145/51 08/10/19 12:00 66 08/10/19 12:00 2.0 08/10/19 12:00 98.1 65 18 145/51 (82) 98 08/10/19 10:36 67 140/70 08/10/19 09:31 2.0 08/10/19 09:00 Nasal Cannula 2.0 08/10/19 08:00 97.5 70 20 140/70 (93) 95 08/10/19 08:00 67 Intake and Output 08/10/19 08/11/19 19:00 07:00 Intake Total 120 ml Output Total 2000 ml Balance -1880 ml Intake Oral 120 ml Output Urine Total 2000 ml # Voids 3 Height (Feet): 5 Height (Inches): 6.00 Weight (Pounds): 147 Objective General Appearance: WD/WN, alert, confused Neck: supple Cardiovascular: regular rhythm Respiratory/Chest: rhonchi - bilaterally Abdomen: normal bowel sounds, non tender, soft, no organomegaly, no mass Edema: no edema noted Arm (L), no edema noted Arm (R), no edema noted Leg (L), no edema noted Leg (R), no edema noted Pedal (L), no edema noted Pedal (R), no edema noted 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
--- NOTE | 2019-08-11 08:08 | Urology Progress Note ---
Assessment/Plan Status: stable, progressing, not improved Assessment/Plan: 1. Gross hematuria, presumably secondary to Doshi trauma. 2. BPH. 3. Urinary retention. 4. Neurogenic bladder. 5. Pyuria. 6. Proteinuria. 7. Renal insufficiency, which appears to be acute on chronic. 8. Rule out urethral stricture. monitor clinically maintain doshi, placed 08/06 hand irrigated and do PRN, minimal clots cont flomax and proscar abx as ordered off anticoagulation, resume soon? restraints cysto at some point voiding trial later, once pt more clinically stable d/w nursing staff Subjective Allergies: Coded Allergies: No Known Allergies (Unverified , 06/05/19) Subjective all noted, confused, nurses hand irrigated doshi Objective Last 24 Hour Vital Signs Date Time Temp Pulse Resp B/P (MAP) Pulse Ox O2 Delivery O2 Flow Rate FiO2 08/11/19 06:00 175/84 08/11/19 04:59 154/87 (109) 08/11/19 04:00 2.0 08/11/19 04:00 54 08/11/19 04:00 97.7 54 16 185/75 (111) 100 08/11/19 03:37 182/75 08/11/19 00:00 72 08/11/19 00:00 99.7 72 16 142/80 (100) 99 08/10/19 21:31 159/63 08/10/19 21:00 Nasal Cannula 2.0 08/10/19 20:03 66 18 96 Venturi Mask 8.0 40 08/10/19 20:03 96 Venturi Mask 8.0 40 08/10/19 20:00 97.7 70 16 157/60 (92) 96 08/10/19 20:00 70 08/10/19 20:00 2.0 08/10/19 18:08 78 152/75 08/10/19 16:00 78 08/10/19 15:58 97.5 77 18 152/75 (100) 99 08/10/19 15:40 2.0 08/10/19 14:07 98.1 08/10/19 13:34 145/51 08/10/19 12:00 66 08/10/19 12:00 2.0 08/10/19 12:00 98.1 65 18 145/51 (82) 98 08/10/19 10:36 67 140/70 08/10/19 09:31 2.0 08/10/19 09:00 Nasal Cannula 2.0 Intake and Output 08/10/19 08/11/19 19:00 07:00 Intake Total 120 ml Output Total 2000 ml Balance -1880 ml Intake Oral 120 ml Output Urine Total 2000 ml # Voids 3 Microbiology Date/Time Source Procedure Growth Status 08/06/19 04:45 Nasal Nares - Final Complete 08/06/19 04:45 Nasal Nares - Final Complete 08/06/19 04:45 Rectum VRE Culture - Final NO VANCOMYCIN RESISTANT ENTEROCOCCUS ... Complete Current Medications Medications (Trade) Dose Ordered Sig/Kristine Route PRN Reason Start Time Stop Time Status Last Admin Dose Admin Acetaminophen (Tylenol) 500 mg Q6H PRN ORAL Mild Pain/Temp > 100.5 08/06/19 08:56 09/05/19 08:55 08/07/19 10:47 Albuterol Sulfate (Proventil) 2.5 mg Q4H PRN HHN Shortness of Breath 08/06/19 08:15 08/11/19 08:14 08/09/19 23:53 Barium Sulfate (Varibar Honey) 250 ml NOW PRN MC RAD 08/10/19 10:15 08/13/19 10:06 Barium Sulfate (Varibar Pudding) 230 ml NOW PRN MC RAD 08/10/19 10:15 08/13/19 10:06 Ceftriaxone Sodium 1 gm/ Dextrose 55 ml @ 110 mls/hr Q24H IVPB 08/07/19 05:00 08/14/19 04:59 08/11/19 05:14 Dextrose 1,000 ml @ 75 mls/hr [id number] IV 08/09/19 09:00 09/08/19 08:59 08/11/19 01:00 Docusate Sodium (Colace) 250 mg DAILY ORAL 08/06/19 09:00 09/05/19 08:59 08/10/19 10:36 Finasteride (Proscar) 5 mg DAILY ORAL 08/07/19 15:45 11/05/19 15:44 08/10/19 10:36 Hydralazine HCl (Apresoline) 10 mg Q4H PRN IV BP over 160 systolic 08/06/19 12:30 11/04/19 12:29 08/11/19 03:37 Hydralazine HCl (Apresoline) 50 mg EVERY 8 HOURS ORAL 08/06/19 14:00 11/04/19 13:59 08/11/19 06:00 Iron Sucrose 100 mg/Sodium Chloride 55 ml @ 200 mls/hr BEDTIME IV 08/06/19 21:00 08/15/19 21:17 08/10/19 21:00 Lorazepam (Ativan 2mg/ml 1ml) 1 mg Q4H PRN IV For Anxiety or agitation 08/06/19 22:30 08/13/19 22:29 08/10/19 00:39 Morphine Sulfate (Morphine Sulfate) 0.5 mg Q4HR PRN IVP Severe Pain (Pain Scale 7-10) 08/07/19 15:45 08/14/19 15:44 08/10/19 13:35 Nifedipine (Procardia XL) 30 mg BID ORAL 08/06/19 18:00 09/05/19 17:59 08/10/19 18:08 Olanzapine (ZyPREXA) 2.5 mg DAILY ORAL 08/10/19 09:00 09/24/19 08:59 08/10/19 10:36 Olanzapine (ZyPREXA) 5 mg QHS ORAL 08/10/19 21:00 09/24/19 20:59 08/10/19 21:00 Pantoprazole (Protonix) 40 mg EVERY 12 HOURS IVP 08/06/19 09:00 09/05/19 08:59 08/10/19 21:00 Sennosides (Senokot) 8.6 mg BEDTIME ORAL 08/06/19 21:00 09/05/19 20:59 08/10/19 21:00 Tamsulosin HCl (Flomax) 0.4 mg BEDTIME ORAL 08/06/19 21:00 09/05/19 20:59 08/10/19 21:00 Height (Feet): 5 Height (Inches): 6.00 Weight (Pounds): 147 Objective exam stable abdomen soft, doshi indwelling, urine denia/blood tinged Miki Calzada MD Aug 11, 2019 08:08
[2019-08-11] MEDS: Pantoprazole Inj IVP SCH ×2 (09:18→20:48)
[2019-08-11] MEDS: OLANZapine 2.5mg tab ORAL SCH (09:18)
[2019-08-11] MEDS: Docusate 250mg cap ORAL SCH (09:18)
--- NOTE | 2019-08-11 09:31 | NUR ---
RADIOLOGY DEPT., CHEST X-RAY DONE.-P.DYE
[2019-08-11 09:36] LABS: BASOPHILS % (AUTO) 0.6 % (0.0-2.0); EOSINOPHILS % (AUTO) 1.8 % (0.0-3.0); HEMATOCRIT 25.2 % (42.0-52.0); HEMOGLOBIN 8.5 G/DL (14.2-18.0); LYMPHOCYTES % (AUTO) 5.4 % (20.0-45.0); MEAN CORPUSCULAR VOLUME 88 FL (80-99); MONOCYTES % (AUTO) 7.5 % (1.0-10.0); NEUTROPHILS % (AUTO) 84.8 % (45.0-75.0); PLATELET COUNT 153 K/UL (150-450); RED BLOOD COUNT 2.86 M/UL (4.70-6.10); WHITE BLOOD COUNT 8.4 K/UL (4.8-10.8)
[2019-08-11 09:39] LABS: ALANINE AMINOTRANSFERASE 28 U/L (12-78); ALBUMIN 2.5 G/DL (3.4-5.0); ALBUMIN/GLOBULIN RATIO 0.9 (1.0-2.7); ALKALINE PHOSPHATASE 95 U/L (46-116); ANION GAP 14 mmol/L (5-15); ASPARTATE AMINO TRANSFERASE 25 U/L (15-37); BILIRUBIN,TOTAL 0.5 MG/DL (0.2-1.0); BLOOD UREA NITROGEN 21 mg/dL (7-18); CALCIUM 8.2 MG/DL (8.5-10.1); CARBON DIOXIDE 19 MMOL/L (21-32); CHLORIDE 110 MMOL/L (98-107); CREATININE 1.7 MG/DL (0.55-1.30); POTASSIUM 3.2 MMOL/L (3.5-5.1); SODIUM 143 MMOL/L (136-145)
--- NOTE | 2019-08-11 09:54 | Pulmonology Progress Note ---
Assessment/Plan Assessment/Plan IMPRESSION: 1. Pleural effusions, small bilateral. 2. Atelectasis. 3. Pulmonary edema, questionable. 4. Hypertension. 5. Hyperlipidemia. DISCUSSION: Currently, the patient is saturating well on room air or low flow O2. 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 no new recommendations Kimani Hahn M.D. Subjective Interval Events: CXR better; no new complaints Constitutional: Reports: no symptoms HEENT: Repors: no symptoms Respiratory: Reports: no symptoms Cardiovascular: Reports: no symptoms Gastrointestinal/Abdominal: Reports: no symptoms Genitourinary: Reports: no symptoms Neurologic: Reports: no symptoms Allergies: Coded Allergies: No Known Allergies (Unverified , 06/05/19) Objective Last 24 Hour Vital Signs Date Time Temp Pulse Resp B/P (MAP) Pulse Ox O2 Delivery O2 Flow Rate FiO2 08/11/19 09:18 90 181/57 08/11/19 08:30 Venturi Mask 2.0 08/11/19 08:00 2.0 08/11/19 08:00 97.3 90 20 181/57 (98) 100 08/11/19 06:00 175/84 08/11/19 04:59 154/87 (109) 08/11/19 04:00 2.0 08/11/19 04:00 54 08/11/19 04:00 97.7 54 16 185/75 (111) 100 08/11/19 03:37 182/75 08/11/19 00:00 72 08/11/19 00:00 99.7 72 16 142/80 (100) 99 08/10/19 21:31 159/63 08/10/19 21:00 Nasal Cannula 2.0 08/10/19 20:03 66 18 96 Venturi Mask 8.0 40 08/10/19 20:03 96 Venturi Mask 8.0 40 08/10/19 20:00 97.7 70 16 157/60 (92) 96 08/10/19 20:00 70 08/10/19 20:00 2.0 08/10/19 18:08 78 152/75 08/10/19 16:00 78 08/10/19 15:58 97.5 77 18 152/75 (100) 99 08/10/19 15:40 2.0 08/10/19 14:07 98.1 08/10/19 13:34 145/51 08/10/19 12:00 66 08/10/19 12:00 2.0 08/10/19 12:00 98.1 65 18 145/51 (82) 98 08/10/19 10:36 67 140/70 Intake and Output 08/10/19 08/11/19 19:00 07:00 Intake Total 120 ml Output Total 2000 ml Balance -1880 ml Intake Oral 120 ml Output Urine Total 2000 ml # Voids 3 General Appearance: no acute distress HEENT: normocephalic Respiratory/Chest: chest wall non-tender Cardiovascular: normal peripheral pulses Abdomen: normal bowel sounds Laboratory Tests 08/11/19 08:35: White Blood Count 8.4, Red Blood Count 2.86L, Hemoglobin 8.5L, Hematocrit 25.2L , Mean Corpuscular Volume 88, Mean Corpuscular Hemoglobin 29.6, Mean Corpuscular Hemoglobin Concent 33.7, Red Cell Distribution Width 14.0, Platelet Count 153, Mean Platelet Volume 5.9L, Neutrophils (%) (Auto) 84.8H, Lymphocytes (%) (Auto) 5.4L, Monocytes (%) (Auto) 7.5, Eosinophils (%) (Auto) 1.8, Basophils (%) (Auto) 0.6, Sodium Level 143, Potassium Level 3.2L, Chloride Level 110H, Carbon Dioxide Level 19L, Anion Gap 14, Blood Urea Nitrogen 21H, Creatinine 1.7H, Estimat Glomerular Filtration Rate 38.6, Glucose Level 143H, Calcium Level 8.2L, Total Bilirubin 0.5, Aspartate Amino Transf (AST/SGOT) 25, Alanine Aminotransferase (ALT/SGPT) 28, Alkaline Phosphatase 95, Pro-B-Type Natriuretic Peptide 59980R, Total Protein 5.4L, Albumin 2.5L, Globulin 2.9, Albumin/Globulin Ratio 0.9L Current Medications Medications (Trade) Dose Ordered Sig/Kristine Route PRN Reason Start Time Stop Time Status Last Admin Dose Admin Acetaminophen (Tylenol) 500 mg Q6H PRN ORAL Mild Pain/Temp > 100.5 08/06/19 08:56 09/05/19 08:55 08/07/19 10:47 Barium Sulfate (Varibar Honey) 250 ml NOW PRN RAD 08/10/19 10:15 08/13/19 10:06 Barium Sulfate (Varibar Pudding) 230 ml NOW PRN RAD 08/10/19 10:15 08/13/19 10:06 Ceftriaxone Sodium 1 gm/ Dextrose 55 ml @ 110 mls/hr Q24H IVPB 08/07/19 05:00 08/14/19 04:59 08/11/19 05:14 Dextrose 1,000 ml @ 75 mls/hr [id number] IV 08/09/19 09:00 09/08/19 08:59 08/11/19 01:00 Docusate Sodium (Colace) 250 mg DAILY ORAL 08/06/19 09:00 09/05/19 08:59 08/11/19 09:18 Finasteride (Proscar) 5 mg DAILY ORAL 08/07/19 15:45 11/05/19 15:44 08/11/19 09:19 Hydralazine HCl (Apresoline) 10 mg Q4H PRN IV BP over 160 systolic 08/06/19 12:30 11/04/19 12:29 08/11/19 03:37 Hydralazine HCl (Apresoline) 50 mg EVERY 8 HOURS ORAL 08/06/19 14:00 11/04/19 13:59 08/11/19 06:00 Iron Sucrose 100 mg/Sodium Chloride 55 ml @ 200 mls/hr BEDTIME IV 08/06/19 21:00 08/15/19 21:17 08/10/19 21:00 Lorazepam (Ativan 2mg/ml 1ml) 1 mg Q4H PRN IV For Anxiety or agitation 08/06/19 22:30 08/13/19 22:29 08/10/19 00:39 Morphine Sulfate (Morphine Sulfate) 0.5 mg Q4HR PRN IVP Severe Pain (Pain Scale 7-10) 08/07/19 15:45 08/14/19 15:44 08/10/19 13:35 Nifedipine (Procardia XL) 30 mg BID ORAL 08/06/19 18:00 09/05/19 17:59 08/11/19 09:18 Olanzapine (ZyPREXA) 2.5 mg DAILY ORAL 08/10/19 09:00 09/24/19 08:59 08/11/19 09:18 Olanzapine (ZyPREXA) 5 mg QHS ORAL 08/10/19 21:00 09/24/19 20:59 08/10/19 21:00 Pantoprazole (Protonix) 40 mg EVERY 12 HOURS IVP 08/06/19 09:00 09/05/19 08:59 08/11/19 09:18 Sennosides (Senokot) 8.6 mg BEDTIME ORAL 08/06/19 21:00 09/05/19 20:59 08/10/19 21:00 Tamsulosin HCl (Flomax) 0.4 mg BEDTIME ORAL 08/06/19 21:00 09/05/19 20:59 08/10/19 21:00 Kimani Hahn MD Aug 11, 2019 09:54
--- NOTE | 2019-08-11 10:33 | Diagnostic Imaging Report ---
Indication: Dyspnea Comparison: 08/08/2019 A single view chest radiograph was obtained. Findings: There are bilateral pleural effusions present. Hazy opacities noted centrally in the perihilar regions. Pulmonary vascularity is prominent. The heart is enlarged. IMPRESSION: Slightly worse congestive heart failure. Bilateral pleural effusions
--- NOTE | 2019-08-11 10:52 | NUR ---
ST NOTES: SWALLOW STATUS: PATIENT IS ALERT BUT NOT ENOUGH FOR PO TRIALS. PER RNCORY, HE DESATURATED TO THE 80S LAST NIGHT AND NOW REQUIRES THE VENTURI-MASK 2 LITERS OF 02. PO INTAKE IS SLOWER AND HE NEEDS TO REST IF SOB (AT REST 20 BPM BUT MUST NOT GO ABOVE 24 BPM TO AVOID ASPIRATION RISK). GOALS MET FOR NEW STAFF (LUIS FERNANDO RAY) EDUCATED/TRAINED IN POSTED ASPIRATION AND REFLUX PRECAUTIONS. GOALS FOR INTAKE NOT CONSISTENTLY MET 0/60/100% DUE TO BREATHING ISSUES AND FATIGUE. REVIEWED MBSS IMAGES WITH RN AND COMPLETED REPORT. SEE LINK BELOW. PLAN: F/UP WITH PLAN OF CARE IN MBSS REPORT CONTINUE WITH LIQUFIED PUREED LIKE NECTAR THICK SOUP CONSISTENCY WITH UPDATED AND POSTED ASPIRATION/REFLUX PRECAUTIONS.
--- NOTE | 2019-08-11 10:56 | NUR ---
CASE MANAGEMENT:REVIEW 08/11/19 SI: AC/CHR RENAL FAILURE. UTI. DEHYDRATION JUNCTIONAL HEART RHYTHM EPISODES OF AGITATION 97.3 90 20 181/57 100% ON VENTURI MASK IS: ZYPREXA PO QHS IVF@75/HR IV ROCEPHIN Q24 IV VENOFER QHS FLOMAX PO QHS PROCARDIA XL PO BID HYDRALAZINE PO Q8HRS IV PROTONIX Q12 : TELEMETRY STATUS DCP: FROM [facility] PLAN: TITRATE OXYGEN OUTPATIENT ZIO PATCH TO ASSESS FOR ADVANCED CONDUCTION SYSTEM DISEASE
--- NOTE | 2019-08-11 11:31 | NUR ---
*-*INSURANCE*-* ALL AVAILABLE CLINICAL AND REVIEWS HAVE BEEN FAXED TO: DEE SALGUERO F: [phone]
--- NOTE | 2019-08-11 13:00 | NUR ---
NURSE NOTES: Reported potassium 3.[address] Echavarria also made aware.
--- NOTE | 2019-08-11 14:54 | Nephrology Progress Note ---
Assessment/Plan Problem List: (1) Renal failure (ARF), acute on chronic Assessment: Serum creatinine gradually decreasing (2) Falls frequently (3) UTI (urinary tract infection) Assessment: and hematuria (4) Anemia (5) Dehydration (6) Encephalopathy due to metabolic factor or toxin Assessment Frequent falls Acute renal failure with underlying dehydration Anemia, underlying etiology unclear UTI (urinary tract infection) Toxic metabolic encephalopathy Plan Clinically improving Speech therapy evaluation noted and discussed with speech therapist Correct electrolytes as needed Transfusion as needed Low IV hydration 2D echocardiogram ejection fraction 60% Kidney ultrasound pending results Monitor renal parameters Avoid nephrotoxics Antibiotics for UTI Continue per consultants Subjective ROS Limited/Unobtainable: No Constitutional: Reports: malaise, weakness Objective Objective Last 24 Hour Vital Signs Date Time Temp Pulse Resp B/P (MAP) Pulse Ox O2 Delivery O2 Flow Rate FiO2 08/11/19 13:24 142/59 08/11/19 12:00 97.7 70 18 142/59 (86) 93 08/11/19 12:00 2.0 08/11/19 11:46 70 08/11/19 09:18 90 181/57 08/11/19 08:30 Venturi Mask 2.0 08/11/19 08:00 2.0 08/11/19 08:00 97.3 90 20 181/57 (98) 100 08/11/19 07:53 91 08/11/19 06:00 175/84 08/11/19 04:59 154/87 (109) 08/11/19 04:00 2.0 08/11/19 04:00 54 08/11/19 04:00 97.7 54 16 185/75 (111) 100 08/11/19 03:37 182/75 08/11/19 00:00 72 08/11/19 00:00 99.7 72 16 142/80 (100) 99 08/10/19 21:31 159/63 08/10/19 21:00 Nasal Cannula 2.0 08/10/19 20:03 66 18 96 Venturi Mask 8.0 40 08/10/19 20:03 96 Venturi Mask 8.0 40 08/10/19 20:00 97.7 70 16 157/60 (92) 96 08/10/19 20:00 70 08/10/19 20:00 2.0 08/10/19 18:08 78 152/75 3/25/20 16:00 78 08/10/19 15:58 97.5 77 18 152/75 (100) 99 08/10/19 15:40 2.0 Intake and Output 08/10/19 08/11/19 19:00 07:00 Intake Total 120 ml Output Total 2000 ml Balance -1880 ml Intake Oral 120 ml Output Urine Total 2000 ml # Voids 3 Current Medications Medications (Trade) Dose Ordered Sig/Kristine Route PRN Reason Start Time Stop Time Status Last Admin Dose Admin Acetaminophen (Tylenol) 500 mg Q6H PRN ORAL Mild Pain/Temp > 100.5 08/06/19 08:56 09/05/19 08:55 08/07/19 10:47 Barium Sulfate (Varibar Honey) 250 ml NOW PRN RAD 08/10/19 10:15 08/13/19 10:06 Barium Sulfate (Varibar Pudding) 230 ml NOW PRN RAD 08/10/19 10:15 08/13/19 10:06 Ceftriaxone Sodium 1 gm/ Dextrose 55 ml @ 110 mls/hr Q24H IVPB 08/07/19 05:00 08/14/19 04:59 08/11/19 05:14 Docusate Sodium (Colace) 250 mg DAILY ORAL 08/06/19 09:00 09/05/19 08:59 08/11/19 09:18 Finasteride (Proscar) 5 mg DAILY ORAL 08/07/19 15:45 11/05/19 15:44 08/11/19 09:19 Furosemide (Lasix) 40 mg ONCE IV 08/11/19 13:30 08/11/19 15:00 08/11/19 13:36 Hydralazine HCl (Apresoline) 10 mg Q4H PRN IV BP over 160 systolic 08/06/19 12:30 11/04/19 12:29 08/11/19 03:37 Hydralazine HCl (Apresoline) 50 mg EVERY 8 HOURS ORAL 08/06/19 14:00 11/04/19 13:59 08/11/19 13:24 Iron Sucrose 100 mg/Sodium Chloride 55 ml @ 200 mls/hr BEDTIME IV 08/06/19 21:00 08/15/19 21:17 08/10/19 21:00 Lorazepam (Ativan 2mg/ml 1ml) 1 mg Q4H PRN IV For Anxiety or agitation 08/06/19 22:30 08/13/19 22:29 08/10/19 00:39 Morphine Sulfate (Morphine Sulfate) 0.5 mg Q4HR PRN IVP Severe Pain (Pain Scale 7-10) 08/07/19 15:45 08/14/19 15:44 08/10/19 13:35 Nifedipine (Procardia XL) 30 mg BID ORAL 08/06/19 18:00 09/05/19 17:59 08/11/19 09:18 Olanzapine (ZyPREXA) 2.5 mg DAILY ORAL 08/10/19 09:00 09/24/19 08:59 08/11/19 09:18 Olanzapine (ZyPREXA) 5 mg QHS ORAL 08/10/19 21:00 09/24/19 20:59 08/10/19 21:00 Pantoprazole (Protonix) 40 mg EVERY 12 HOURS IVP 08/06/19 09:00 09/05/19 08:59 08/11/19 09:18 Potassium Chloride (K-Dur) 30 meq ONCE ORAL 08/11/19 13:40 08/11/19 15:00 08/11/19 13:55 Sennosides (Senokot) 8.6 mg BEDTIME ORAL 08/06/19 21:00 09/05/19 20:59 08/10/19 21:00 Tamsulosin HCl (Flomax) 0.4 mg BEDTIME ORAL 08/06/19 21:00 09/05/19 20:59 08/10/19 21:00 Laboratory Tests 08/11/19 08:35: White Blood Count 8.4, Red Blood Count 2.86L, Hemoglobin 8.5L, Hematocrit 25.2L , Mean Corpuscular Volume 88, Mean Corpuscular Hemoglobin 29.6, Mean Corpuscular Hemoglobin Concent 33.7, Red Cell Distribution Width 14.0, Platelet Count 153, Mean Platelet Volume 5.9L, Neutrophils (%) (Auto) 84.8H, Lymphocytes (%) (Auto) 5.4L, Monocytes (%) (Auto) 7.5, Eosinophils (%) (Auto) 1.8, Basophils (%) (Auto) 0.6, Sodium Level 143, Potassium Level 3.2L, Chloride Level 110H, Carbon Dioxide Level 19L, Anion Gap 14, Blood Urea Nitrogen 21H, Creatinine 1.7H, Estimat Glomerular Filtration Rate 38.6, Glucose Level 143H, Calcium Level 8.2L, Total Bilirubin 0.5, Aspartate Amino Transf (AST/SGOT) 25, Alanine Aminotransferase (ALT/SGPT) 28, Alkaline Phosphatase 95, Pro-B-Type Natriuretic Peptide [id number], Total Protein 5.4L, Albumin 2.5L, Globulin 2.9, Albumin/Globulin Ratio 0.9L 08/11/19 12:30: Arterial Blood pH 7.506H, Arterial Blood Partial Pressure CO2 26.1L, Arterial Blood Partial Pressure O2 62.6L, Arterial Blood HCO3 20.2L, Arterial Blood Oxygen Saturation 92.1L, Arterial Blood Base Excess -2.2L, Solo Test Positive Height (Feet): 5 Height (Inches): 6.00 Weight (Pounds): 147 General Appearance: no apparent distress Cardiovascular: normal rate Respiratory/Chest: decreased breath sounds Objective No change Juan Jade MD Aug 11, 2019 14:54
--- NOTE | 2019-08-11 16:17 | NUR ---
INSURANCE CORRECTED FAX NUMBER F: [phone] REF# [id number] RECEIVED CALL FROM RANDA WITH [employer] STATING SHE HAD NOT RECIVED ANY CLINICALS AND THERE WAS A POSSIBILITY OF DENYING THIS STAY THIS [employer]ER FAXED ALL REVIEWS AND CLINICALS TO [employer]OVE FAX NUMBER. ALSO PROVIDED DR HUDSON'S NUMBER FOR [facility]
--- NOTE | 2019-08-11 19:20 | NUR ---
NURSE NOTES: Received pt and report from LUIS FERNANDO Ward. Observed pt resting in bed with both eyes open and watching television. Pt is A/O x1. front desk monitor is in placed. IV site intact, asymptomatic, and patent. Pt is on bilateral soft wrist restraints; pulses and sensations are present, no swelling noted, skin is intact. Bed is in the lowest position and locked. Call light and bedside table is within reach. No signs/symptoms of acute distress noted at this time. Will continue plan of care. Addendum: 08/12/19 at 0912 by Jayla Bo Mai, RN Received pt and report from LUIS FERNANDO Juárez
--- NOTE | 2019-08-11 19:31 | NUR ---
HAND-OFF: Report given to LUIS FERNANDO Sandoval. Pt in stable condition, endorsed plan of care.
[2019-08-11] MEDS: Tamsulosin 0.4mg cap ORAL SCH (20:48)
[2019-08-11] MEDS: Sennosides 8.6mg tab ORAL SCH (20:48)
[2019-08-11] MEDS ORDERED: TraZODone HCl 25 mg tablet ORAL SCH (21:00)
[2019-08-12] VITALS (7 sets, daily range): BP systolic 147–180; BP diastolic 63–80
--- NOTE | 2019-08-12 | NUR ---
NURSE NOTES: Spoke to Dr. Salas regarding downtime for [employer] from [phone]. Dr. Salas rescheduled time for Nitro bid and KDUR.
[2019-08-12] MEDS: HydrALAZINE 50mg tab ORAL SCH ×3 (06:44→22:43)
[2019-08-12 06:59] LABS: BASOPHILS % (AUTO) 0.8 % (0.0-2.0); EOSINOPHILS % (AUTO) 2.3 % (0.0-3.0); HEMATOCRIT 28.3 % (42.0-52.0); HEMOGLOBIN 9.6 G/DL (14.2-18.0); MEAN CORPUSCULAR VOLUME 88 FL (80-99); MONOCYTES % (AUTO) 8.4 % (1.0-10.0); NEUTROPHILS % (AUTO) 81.6 % (45.0-75.0); PLATELET COUNT 194 K/UL (150-450); RED CELL DISTRIBUTION WIDTH 14.7 % (11.6-14.8); WHITE BLOOD COUNT 9.4 K/UL (4.8-10.8)
[2019-08-12] MEDS: Nitroglycerin 2% oint pkt TOPIC SCH ×3 (07:24→16:31)
[2019-08-12 07:38] LABS: ALANINE AMINOTRANSFERASE 24 U/L (12-78); ALBUMIN/GLOBULIN RATIO 0.9 (1.0-2.7); ALKALINE PHOSPHATASE 108 U/L (46-116); ANION GAP 10 mmol/L (5-15); ASPARTATE AMINO TRANSFERASE 35 U/L (15-37); BILIRUBIN,TOTAL 0.7 MG/DL (0.2-1.0); BLOOD UREA NITROGEN 24 mg/dL (7-18); CALCIUM 9.5 MG/DL (8.5-10.1); CARBON DIOXIDE 26 MMOL/L (21-32); CHLORIDE 105 MMOL/L (98-107); PHOSPHORUS 2.5 MG/DL (2.5-4.9); POTASSIUM 3.1 MMOL/L (3.5-5.1); SODIUM 141 MMOL/L (136-145)
--- NOTE | 2019-08-12 08:00 | NUR ---
HAND-OFF: Report given to LUIS FERNANDO Loving. Plan of care endorsed.
--- NOTE | 2019-08-12 08:13 | Progress Note ---
DATE: 08/11/2019 SUBJECTIVE: The patient has been hypoxic on nasal cannula and desaturating. Now, he is on a Ventimask with better saturations noted. He remains confused. Monitored rhythm, junctional with no pauses or bradyarrhythmias. OBJECTIVE: VITAL SIGNS: Blood pressure labile 145/51 to 185/75, heart rate 54 to 80, respiratory rate 18 to 20. No fevers. LUNGS: Bilateral breath sounds with rhonchi. CARDIAC: Regular rhythm and rate. Normal S1, S2 with no new murmur. ABDOMEN: Soft. EXTREMITIES: No edema. LABORATORY DATA: White count 8.4, hemoglobin 8.5. ABG, 7.51, 26, 63. Sodium 143, potassium 3.2, bicarb 19, BUN 21, creatinine 1.7. Pro-natriuretic peptide 16,000. Chest x-ray reveals increased congestive heart failure and bilateral pleural effusions. IMPRESSION: 1. Acute on chronic systolic and diastolic congestive heart failure. 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 3. Junctional cardiac rhythm. 4. Valvular cardiomyopathy with regurgitation. 5. Dementia with agitation. 6. Hypoxia. 7. Pleural effusions. PLAN: 1. Additional diuresis, oxygenation. 2. Potassium replacement. 3. Cardiac monitoring. 4. Respiratory hygiene. 5. Aspiration precautions. 6. Remains high risk. Gamaliel Salas M.D. DR: BHARAT JOB#: [id number] CC:
[2019-08-12] MEDS: Docusate 250mg cap ORAL SCH (08:31)
[2019-08-12] MEDS: OLANZapine 2.5mg tab ORAL SCH (08:31)
[2019-08-12] MEDS: Pantoprazole Inj IVP SCH ×2 (08:32→22:28)
--- NOTE | 2019-08-12 09:14 | Urology Progress Note ---
Assessment/Plan Status: stable, progressing, not improved Assessment/Plan: 1. Gross hematuria, presumably secondary to Doshi trauma. 2. BPH. 3. Urinary retention. 4. Neurogenic bladder. 5. Pyuria. 6. Proteinuria. 7. Renal insufficiency, which appears to be acute on chronic. 8. Rule out urethral stricture. monitor clinically maintain doshi, placed 08/06 hand irrigated and do PRN, minimal clots cont flomax and proscar abx as ordered off anticoagulation, resume soon? restraints cysto at some point voiding trial later, once pt more clinically stable d/w nursing staff Subjective Allergies: Coded Allergies: No Known Allergies (Unverified , 06/05/19) Subjective all noted, confused, nurses hand irrigated doshi Objective Last 24 Hour Vital Signs Date Time Temp Pulse Resp B/P (MAP) Pulse Ox O2 Delivery O2 Flow Rate FiO2 08/12/19 08:36 176/68 08/12/19 08:31 90 176/68 08/12/19 08:00 96.8 79 20 176/68 (104) 96 90 08/12/19 07:24 158/69 08/12/19 06:44 161/74 08/12/19 06:00 76 161/74 (103) 08/12/19 04:00 2.0 08/12/19 04:00 97.2 70 20 180/80 (113) 98 08/12/19 04:00 67 08/12/19 00:00 98.1 75 20 158/73 (101) 96 08/12/19 00:00 2.0 08/12/19 00:00 61 08/11/19 21:53 152/65 08/11/19 21:00 Nasal Cannula 2.0 08/11/19 20:00 84 08/11/19 20:00 99.3 78 20 148/64 (92) 95 08/11/19 17:24 102 133/78 08/11/19 16:00 6.0 08/11/19 16:00 73 08/11/19 16:00 97.0 102 20 133/78 (96) 94 08/11/19 13:24 142/59 08/11/19 12:00 97.7 70 18 142/59 (86) 93 08/11/19 12:00 6.0 08/11/19 11:46 70 08/11/19 09:18 90 181/57 Intake and Output 08/11/19 08/12/19 19:00 07:00 Intake Total 120 ml 120 ml Output Total 1000 ml 1500 ml Balance -880 ml -1380 ml Intake Oral 120 ml 120 ml Output Urine Total 1000 ml 1500 ml Microbiology Date/Time Source Procedure Growth Status 08/06/19 04:45 Nasal Nares - Final Complete 08/06/19 04:45 Nasal Nares - Final Complete 08/06/19 04:45 Rectum VRE Culture - Final NO VANCOMYCIN RESISTANT ENTEROCOCCUS ... Complete Current Medications Medications (Trade) Dose Ordered Sig/Kristine Route PRN Reason Start Time Stop Time Status Last Admin Dose Admin Acetaminophen (Tylenol) 500 mg Q6H PRN ORAL Mild Pain/Temp > 100.5 08/06/19 08:56 09/05/19 08:55 08/07/19 10:47 Barium Sulfate (Varibar Honey) 250 ml NOW PRN MC RAD 08/10/19 10:15 08/13/19 10:06 Barium Sulfate (Varibar Pudding) 230 ml NOW PRN MC RAD 08/10/19 10:15 08/13/19 10:06 Ceftriaxone Sodium 1 gm/ Dextrose 55 ml @ 110 mls/hr Q24H IVPB 08/07/19 05:00 08/14/19 04:59 08/11/19 05:14 Docusate Sodium (Colace) 250 mg DAILY ORAL 08/06/19 09:00 09/05/19 08:59 08/12/19 08:31 Finasteride (Proscar) 5 mg DAILY ORAL 08/07/19 15:45 11/05/19 15:44 08/12/19 08:31 Furosemide (Lasix) 40 mg DAILY IV 08/12/19 02:25 09/11/19 02:24 Hydralazine HCl (Apresoline) 10 mg Q4H PRN IV BP over 160 systolic 08/06/19 12:30 11/04/19 12:29 08/12/19 08:36 Hydralazine HCl (Apresoline) 50 mg EVERY 8 HOURS ORAL 08/06/19 14:00 11/04/19 13:59 08/12/19 06:44 Iron Sucrose 100 mg/Sodium Chloride 55 ml @ 200 mls/hr BEDTIME IV 08/06/19 21:00 08/15/19 21:17 08/11/19 20:48 Lorazepam (Ativan 2mg/ml 1ml) 1 mg Q4H PRN IV For Anxiety or agitation 08/06/19 22:30 08/13/19 22:29 08/10/19 00:39 Morphine Sulfate (Morphine Sulfate) 0.5 mg Q4HR PRN IVP Severe Pain (Pain Scale 7-10) 08/07/19 15:45 08/14/19 15:44 08/10/19 13:35 Nifedipine (Procardia XL) 30 mg BID ORAL 08/06/19 18:00 09/05/19 17:59 08/12/19 08:31 Nitroglycerin (Nitro-Bid) 1 inch Q6HR@0600,1200,1800 TOPIC 08/12/19 07:00 09/11/19 06:59 08/12/19 07:24 Olanzapine (ZyPREXA) 2.5 mg DAILY ORAL 08/10/19 09:00 09/24/19 08:59 08/12/19 08:31 Olanzapine (ZyPREXA) 5 mg QHS ORAL 08/10/19 21:00 09/24/19 20:59 08/11/19 20:48 Pantoprazole (Protonix) 40 mg EVERY 12 HOURS IVP 08/06/19 09:00 09/05/19 08:59 08/12/19 08:32 Potassium Chloride (K-Dur) 20 meq DAILY ORAL 08/12/19 12:00 11/10/19 11:59 Sennosides (Senokot) 8.6 mg BEDTIME ORAL 08/06/19 21:00 09/05/19 20:59 08/11/19 20:48 Tamsulosin HCl (Flomax) 0.4 mg BEDTIME ORAL 08/06/19 21:00 09/05/19 20:59 08/11/19 20:48 Laboratory Tests 08/11/19 12:30: Arterial Blood pH 7.506H, Arterial Blood Partial Pressure CO2 26.1L, Arterial Blood Partial Pressure O2 62.6L, Arterial Blood HCO3 20.2L, Arterial Blood Oxygen Saturation 92.1L, Arterial Blood Base Excess -2.2L, Solo Test Positive 08/12/19 06:22: White Blood Count 9.4, Red Blood Count 3.20L, Hemoglobin 9.6L, Hematocrit 28.3L , Mean Corpuscular Volume 88, Mean Corpuscular Hemoglobin 30.0, Mean Corpuscular Hemoglobin Concent 33.9, Red Cell Distribution Width 14.7, Platelet Count 194, Mean Platelet Volume 6.1L, Neutrophils (%) (Auto) 81.6H, Lymphocytes (%) (Auto) 7.0L, Monocytes (%) (Auto) 8.4, Eosinophils (%) (Auto) 2.3, Basophils (%) (Auto) 0.8, Sodium Level 141, Potassium Level 3.1L, Chloride Level 105, Carbon Dioxide Level 26, Anion Gap 10, Blood Urea Nitrogen 24H, Creatinine 2.0H, Estimat Glomerular Filtration Rate 32.0, Glucose Level 97, Calcium Level 9.5, Phosphorus Level 2.5, Magnesium Level 1.8, Total Bilirubin 0.7, Aspartate Amino Transf (AST/SGOT) 35, Alanine Aminotransferase (ALT/SGPT) 24, Alkaline Phosphatase 108, C-Reactive Protein, Quantitative 5.3H, Pro-B-Type Natriuretic Peptide 64813O, Total Protein 6.2L, Albumin 3.0L, Globulin 3.2, Albumin/Globulin Ratio 0.9L Height (Feet): 5 Height (Inches): 6.00 Weight (Pounds): 147 Objective exam stable abdomen soft, doshi indwelling, urine denia/blood tinged Bamshad,Miki Perry MD Aug 12, 2019 09:14
--- NOTE | 2019-08-12 09:17 | NUR ---
NURSE NOTES: [facility] was down from [id number]. Any scheduled or PRN medications between those time were given by Raji paper charting. Raji package in pt's chart.
--- NOTE | 2019-08-12 09:32 | General Progress Note ---
Assessment/Plan Problem List: (1) CHF (congestive heart failure) ICD Codes: I50.9 - Heart failure, unspecified SNOMED: 72692932 (2) Renal failure (ARF), acute on chronic ICD Codes: N17.9 - Acute kidney failure, unspecified; N18.9 - Chronic kidney disease, unspecified SNOMED: 722623375 (3) Encephalopathy due to metabolic factor or toxin SNOMED: 151052990 (4) Gross hematuria ICD Codes: R31.0 - Gross hematuria SNOMED: 178964121 (5) Falls frequently ICD Codes: R29.6 - Repeated falls SNOMED: 709063811 (6) Dehydration ICD Codes: E86.0 - Dehydration SNOMED: 31124323 (7) UTI (urinary tract infection) ICD Codes: N39.0 - Urinary tract infection, site not specified SNOMED: 04537979 (8) Anemia ICD Codes: D64.9 - Anemia, unspecified SNOMED: 220495800 Status: stable, progressing, not improved Assessment/Plan: cont current rx monitor cxr resp rx and o2 iv abx to cover for pna diuresis monitor renal fxn and lytes replace k added catapress patch anxiolytics doshi restraints for safety Subjective ROS Limited/Unobtainable: No Constitutional: Reports: malaise, weakness HEENT: Reports: no symptoms Cardiovascular: Reports: chest pain Respiratory: Reports: shortness of breath, sputum Gastrointestinal/Abdominal: Reports: poor appetite, poor fluid intake Genitourinary: Reports: no symptoms Neurologic/Psychiatric: Reports: anxiety, depressed Endocrine: Reports: no symptoms Allergies: Coded Allergies: No Known Allergies (Unverified , 06/05/19) All Systems: reviewed and negative except above Subjective decreased sob today. on nasal cannula. occasional desaturates. low k noted. BP remains high. d/w staff Objective Last 24 Hour Vital Signs Date Time Temp Pulse Resp B/P (MAP) Pulse Ox O2 Delivery O2 Flow Rate FiO2 08/12/19 08:36 176/68 08/12/19 08:31 90 176/68 08/12/19 08:00 96.8 79 20 176/68 (104) 96 90 08/12/19 07:24 158/69 08/12/19 06:44 161/74 08/12/19 06:00 76 161/74 (103) 08/12/19 04:00 2.0 08/12/19 04:00 97.2 70 20 180/80 (113) 98 08/12/19 04:00 67 08/12/19 00:00 98.1 75 20 158/73 (101) 96 08/12/19 00:00 2.0 08/12/19 00:00 61 08/11/19 21:53 152/65 08/11/19 21:00 Nasal Cannula 2.0 08/11/19 20:00 84 08/11/19 20:00 99.3 78 20 148/64 (92) 95 08/11/19 17:24 102 133/78 08/11/19 16:00 6.0 08/11/19 16:00 73 08/11/19 16:00 97.0 102 20 133/78 (96) 94 08/11/19 13:24 142/59 08/11/19 12:00 97.7 70 18 142/59 (86) 93 08/11/19 12:00 6.0 08/11/19 11:46 70 Intake and Output 08/11/19 08/12/19 19:00 07:00 Intake Total 120 ml 120 ml Output Total 1000 ml 1500 ml Balance -880 ml -1380 ml Intake Oral 120 ml 120 ml Output Urine Total 1000 ml 1500 ml Laboratory Tests 08/11/19 12:30: Arterial Blood pH 7.506H, Arterial Blood Partial Pressure CO2 26.1L, Arterial Blood Partial Pressure O2 62.6L, Arterial Blood HCO3 20.2L, Arterial Blood Oxygen Saturation 92.1L, Arterial Blood Base Excess -2.2L, Solo Test Positive 08/12/19 06:22: White Blood Count 9.4, Red Blood Count 3.20L, Hemoglobin 9.6L, Hematocrit 28.3L , Mean Corpuscular Volume 88, Mean Corpuscular Hemoglobin 30.0, Mean Corpuscular Hemoglobin Concent 33.9, Red Cell Distribution Width 14.7, Platelet Count 194, Mean Platelet Volume 6.1L, Neutrophils (%) (Auto) 81.6H, Lymphocytes (%) (Auto) 7.0L, Monocytes (%) (Auto) 8.4, Eosinophils (%) (Auto) 2.3, Basophils (%) (Auto) 0.8, Sodium Level 141, Potassium Level 3.1L, Chloride Level 105, Carbon Dioxide Level 26, Anion Gap 10, Blood Urea Nitrogen 24H, Creatinine 2.0H, Estimat Glomerular Filtration Rate 32.0, Glucose Level 97, Calcium Level 9.5, Phosphorus Level 2.5, Magnesium Level 1.8, Total Bilirubin 0.7, Aspartate Amino Transf (AST/SGOT) 35, Alanine Aminotransferase (ALT/SGPT) 24, Alkaline Phosphatase 108, C-Reactive Protein, Quantitative 5.3H, Pro-B-Type Natriuretic Peptide 44719J, Total Protein 6.2L, Albumin 3.0L, Globulin 3.2, Albumin/Globulin Ratio 0.9L Height (Feet): 5 Height (Inches): 6.00 Weight (Pounds): 147 Objective General Appearance: WD/WN, alert, confused Neck: supple Cardiovascular: regular rhythm Respiratory/Chest: rhonchi - bilaterally Abdomen: normal bowel sounds, non tender, soft, no organomegaly, no mass Edema: no edema noted Arm (L), no edema noted Arm (R), no edema noted Leg (L), no edema noted Leg (R), no edema noted Pedal (L), no edema noted Pedal (R), no edema noted Generalized Neurologic: latin teacher II-XII grossly normal, alert, responsive Iggy Echavarria MD Aug 12, 2019 09:32
--- NOTE | 2019-08-12 10:25 | Pulmonology Progress Note ---
Assessment/Plan Assessment/Plan IMPRESSION: 1. Pleural effusions, small bilateral. 2. Atelectasis. 3. Pulmonary edema, questionable. 4. Hypertension. 5. Hyperlipidemia. DISCUSSION: Currently, the patient is saturating well on room air or low flow O2. I will follow as conference concierge. no new recommendations Kimani Hahn M.D. Subjective Interval Events: none new reported Constitutional: Reports: no symptoms HEENT: Repors: no symptoms Respiratory: Reports: no symptoms Cardiovascular: Reports: no symptoms Gastrointestinal/Abdominal: Reports: no symptoms Genitourinary: Reports: no symptoms Allergies: Coded Allergies: No Known Allergies (Unverified , 06/05/19) Objective Last 24 Hour Vital Signs Date Time Temp Pulse Resp B/P (MAP) Pulse Ox O2 Delivery O2 Flow Rate FiO2 08/12/19 09:00 2.0 08/12/19 09:00 Nasal Cannula 2.0 08/12/19 08:36 176/68 08/12/19 08:31 90 176/68 08/12/19 08:00 96.8 79 20 176/68 (104) 96 90 08/12/19 08:00 81 08/12/19 07:24 158/69 08/12/19 06:44 161/74 08/12/19 06:00 76 161/74 (103) 08/12/19 04:00 2.0 08/12/19 04:00 97.2 70 20 180/80 (113) 98 08/12/19 04:00 67 08/12/19 00:00 98.1 75 20 158/73 (101) 96 08/12/19 00:00 2.0 08/12/19 00:00 61 08/11/19 21:53 152/65 08/11/19 21:00 Nasal Cannula 2.0 08/11/19 20:00 84 08/11/19 20:00 99.3 78 20 148/64 (92) 95 08/11/19 17:24 102 133/78 08/11/19 16:00 6.0 08/11/19 16:00 73 08/11/19 16:00 97.0 102 20 133/78 (96) 94 08/11/19 13:24 142/59 08/11/19 12:00 97.7 70 18 142/59 (86) 93 08/11/19 12:00 6.0 08/11/19 11:46 70 Intake and Output 08/11/19 08/12/19 19:00 07:00 Intake Total 120 ml 120 ml Output Total 1000 ml 1500 ml Balance -880 ml -1380 ml Intake Oral 120 ml 120 ml Output Urine Total 1000 ml 1500 ml General Appearance: no acute distress HEENT: normocephalic Respiratory/Chest: chest wall non-tender Cardiovascular: normal peripheral pulses Abdomen: normal bowel sounds Laboratory Tests 08/11/19 12:30: Arterial Blood pH 7.506H, Arterial Blood Partial Pressure CO2 26.1L, Arterial Blood Partial Pressure O2 62.6L, Arterial Blood HCO3 20.2L, Arterial Blood Oxygen Saturation 92.1L, Arterial Blood Base Excess -2.2L, Solo Test Positive 08/12/19 06:22: White Blood Count 9.4, Red Blood Count 3.20L, Hemoglobin 9.6L, Hematocrit 28.3L , Mean Corpuscular Volume 88, Mean Corpuscular Hemoglobin 30.0, Mean Corpuscular Hemoglobin Concent 33.9, Red Cell Distribution Width 14.7, Platelet Count 194, Mean Platelet Volume 6.1L, Neutrophils (%) (Auto) 81.6H, Lymphocytes (%) (Auto) 7.0L, Monocytes (%) (Auto) 8.4, Eosinophils (%) (Auto) 2.3, Basophils (%) (Auto) 0.8, Sodium Level 141, Potassium Level 3.1L, Chloride Level 105, Carbon Dioxide Level 26, Anion Gap 10, Blood Urea Nitrogen 24H, Creatinine 2.0H, Estimat Glomerular Filtration Rate 32.0, Glucose Level 97, Calcium Level 9.5, Phosphorus Level 2.5, Magnesium Level 1.8, Total Bilirubin 0.7, Aspartate Amino Transf (AST/SGOT) 35, Alanine Aminotransferase (ALT/SGPT) 24, Alkaline Phosphatase 108, C-Reactive Protein, Quantitative 5.3H, Pro-B-Type Natriuretic Peptide 11849L, Total Protein 6.2L, Albumin 3.0L, Globulin 3.2, Albumin/Globulin Ratio 0.9L Current Medications Medications (Trade) Dose Ordered Sig/Kristine Route PRN Reason Start Time Stop Time Status Last Admin Dose Admin Acetaminophen (Tylenol) 500 mg Q6H PRN ORAL Mild Pain/Temp > 100.5 08/06/19 08:56 09/05/19 08:55 08/07/19 10:47 Barium Sulfate (Varibar Honey) 250 ml NOW PRN MC RAD 08/10/19 10:15 08/13/19 10:06 Barium Sulfate (Varibar Pudding) 230 ml NOW PRN MC RAD 08/10/19 10:15 08/13/19 10:06 Ceftriaxone Sodium 1 gm/ Dextrose 55 ml @ 110 mls/hr Q24H IVPB 08/07/19 05:00 08/14/19 04:59 08/11/19 05:14 Clonidine HCl (Catapres TTS-1) 1 patch QWEEK TDERMAL 08/12/19 10:00 11/10/19 09:59 Docusate Sodium (Colace) 250 mg DAILY ORAL 08/06/19 09:00 09/05/19 08:59 08/12/19 08:31 Finasteride (Proscar) 5 mg DAILY ORAL 08/07/19 15:45 11/05/19 15:44 08/12/19 08:31 Furosemide (Lasix) 40 mg DAILY IV 08/12/19 02:25 09/11/19 02:24 Hydralazine HCl (Apresoline) 10 mg Q4H PRN IV BP over 160 systolic 08/06/19 12:30 11/04/19 12:29 08/12/19 08:36 Hydralazine HCl (Apresoline) 50 mg EVERY 8 HOURS ORAL 08/06/19 14:00 11/04/19 13:59 08/12/19 06:44 Iron Sucrose 100 mg/Sodium Chloride 55 ml @ 200 mls/hr BEDTIME IV 08/06/19 21:00 08/15/19 21:17 08/11/19 20:48 Lorazepam (Ativan 2mg/ml 1ml) 1 mg Q4H PRN IV For Anxiety or agitation 08/06/19 22:30 08/13/19 22:29 08/10/19 00:39 Morphine Sulfate (Morphine Sulfate) 0.5 mg Q4HR PRN IVP Severe Pain (Pain Scale 7-10) 08/07/19 15:45 08/14/19 15:44 08/10/19 13:35 Nifedipine (Procardia XL) 30 mg BID ORAL 08/06/19 18:00 09/05/19 17:59 08/12/19 08:31 Nitroglycerin (Nitro-Bid) 1 inch Q6HR@0600,1200,1800 TOPIC 08/12/19 07:00 09/11/19 06:59 08/12/19 07:24 Olanzapine (ZyPREXA) 2.5 mg DAILY ORAL 08/10/19 09:00 09/24/19 08:59 08/12/19 08:31 Olanzapine (ZyPREXA) 5 mg QHS ORAL 08/10/19 21:00 09/24/19 20:59 08/11/19 20:48 Pantoprazole (Protonix) 40 mg EVERY 12 HOURS IVP 08/06/19 09:00 09/05/19 08:59 08/12/19 08:32 Potassium Chloride (K-Dur) 20 meq BID ORAL 08/12/19 10:15 11/10/19 11:59 Potassium Chloride (K-Dur) 40 meq ONCE ORAL 08/12/19 09:30 08/12/19 10:30 Sennosides (Senokot) 8.6 mg BEDTIME ORAL 08/06/19 21:00 09/05/19 20:59 08/11/19 20:48 Tamsulosin HCl (Flomax) 0.4 mg BEDTIME ORAL 08/06/19 21:00 09/05/19 20:59 08/11/19 20:48 Kimani Hahn MD Aug 12, 2019 10:25
--- NOTE | 2019-08-12 10:50 | NUR ---
CASE MANAGEMENT:REVIEW 08/12/19 SI: AC/CHR RENAL FAILURE. UTI. DEHYDRATION JUNCTIONAL HEART RHYTHM EPISODES OF AGITATION..BP REMAINS HIGH 97.2 70 20 180/80 98% ON 2L/NC H/H-9.6/28.3 K-3.1 BUN+24 CR+2.0 IS: K-DUR PO BID CLONIDINE PATCH QWEEK NITRO-BID 1" Q6HRS IV LASIX QD ZYPREXA PO QHS IV ROCEPHIN Q24 IV VENOFER QHS FLOMAX PO QHS PROCARDIA XL PO BID IV PROTONIX Q12 : TELEMETRY STATUS DCP: FROM [facility] PLAN: TITRATE OXYGEN OUTPATIENT ZIO PATCH TO ASSESS FOR ADVANCED CONDUCTION SYSTEM DISEASE RESTRAINTS FOR SAFETY CONTROL BLOOD PRESSURE
--- NOTE | 2019-08-12 13:14 | Psych Consult Progress Note ---
Psychiatry Progress Note Psychiatry Progress Note Subjective this is the late entry due to system being down last night 08/11/2019 Medications Current Medications Medications (Trade) Dose Ordered Sig/Kristine Route PRN Reason Start Time Stop Time Status Last Admin Dose Admin Acetaminophen (Tylenol) 500 mg Q6H PRN ORAL Mild Pain/Temp > 100.5 08/06/19 08:56 09/05/19 08:55 08/07/19 10:47 Barium Sulfate (Varibar Honey) 250 ml NOW PRN MC RAD 08/10/19 10:15 08/13/19 10:06 Barium Sulfate (Varibar Pudding) 230 ml NOW PRN MC RAD 08/10/19 10:15 08/13/19 10:06 Ceftriaxone Sodium 1 gm/ Dextrose 55 ml @ 110 mls/hr Q24H IVPB 08/07/19 05:00 08/14/19 04:59 08/11/19 05:14 Clonidine HCl (Catapres TTS-1) 1 patch QWEEK TDERMAL 08/12/19 10:00 11/10/19 09:59 08/12/19 11:07 Docusate Sodium (Colace) 250 mg DAILY ORAL 08/06/19 09:00 09/05/19 08:59 08/12/19 08:31 Finasteride (Proscar) 5 mg DAILY ORAL 08/07/19 15:45 11/05/19 15:44 08/12/19 08:31 Furosemide (Lasix) 40 mg DAILY IV 08/12/19 02:25 09/11/19 02:24 08/12/19 09:00 Hydralazine HCl (Apresoline) 10 mg Q4H PRN IV BP over 160 systolic 08/06/19 12:30 11/04/19 12:29 08/12/19 08:36 Hydralazine HCl (Apresoline) 50 mg EVERY 8 HOURS ORAL 08/06/19 14:00 11/04/19 13:59 08/12/19 06:44 Iron Sucrose 100 mg/Sodium Chloride 55 ml @ 200 mls/hr BEDTIME IV 08/06/19 21:00 08/15/19 21:17 08/11/19 20:48 Lorazepam (Ativan 2mg/ml 1ml) 1 mg Q4H PRN IV For Anxiety or agitation 08/06/19 22:30 08/13/19 22:29 08/10/19 00:39 Morphine Sulfate (Morphine Sulfate) 0.5 mg Q4HR PRN IVP Severe Pain (Pain Scale 7-10) 08/07/19 15:45 08/14/19 15:44 08/10/19 13:35 Nifedipine (Procardia XL) 30 mg BID ORAL 08/06/19 18:00 09/05/19 17:59 08/12/19 08:31 Nitroglycerin (Nitro-Bid) 1 inch Q6HR@0600,1200,1800 TOPIC 08/12/19 07:00 09/11/19 06:59 08/12/19 10:48 Olanzapine (ZyPREXA) 2.5 mg DAILY ORAL 08/10/19 09:00 09/24/19 08:59 08/12/19 08:31 Olanzapine (ZyPREXA) 5 mg QHS ORAL 08/10/19 21:00 09/24/19 20:59 08/11/19 20:48 Pantoprazole (Protonix) 40 mg EVERY 12 HOURS IVP 08/06/19 09:00 09/05/19 08:59 08/12/19 08:32 Potassium Chloride (K-Dur) 20 meq BID ORAL 08/12/19 10:15 11/10/19 11:59 08/12/19 10:49 Sennosides (Senokot) 8.6 mg BEDTIME ORAL 08/06/19 21:00 09/05/19 20:59 08/11/19 20:48 Tamsulosin HCl (Flomax) 0.4 mg BEDTIME ORAL 08/06/19 21:00 09/05/19 20:59 08/11/19 20:48 Neurological/Psychiatric: Reports: anxiety, depressed, emotional problems Allergies: Coded Allergies: No Known Allergies (Unverified , 06/05/19) Objective Data Height (Feet): 5 Height (Inches): 6.00 Weight (Pounds): 147 General Appearance: alert, moderate distress, agitated Behavior Mannerisms: poor eye contact Additional Comments: confused, Mood is anxious. Affect is flat. Thought process is concrete. Thought content, no suicidal or homicidal ideation. Cognition is impaired. ASSESSMENT: Acute encephalopathy. PLAN: Continue current psychotropic medications. d/w pattern puncher/Plan Status: stable, progressing, not improved Loco Luu MD Aug 12, 2019 13:14
--- NOTE | 2019-08-12 13:58 | Nephrology Progress Note ---
Assessment/Plan Problem List: (1) Renal failure (ARF), acute on chronic Assessment: Serum creatinine started rising again (2) Falls frequently (3) UTI (urinary tract infection) Assessment: and hematuria (4) Anemia (5) Dehydration (6) Encephalopathy due to metabolic factor or toxin Assessment Frequent falls Acute renal failure with underlying dehydration Anemia, underlying etiology unclear UTI (urinary tract infection) Toxic metabolic encephalopathy Plan Clinically improved Serum creatinine rising as the patient receiving Lasix Speech therapy evaluation noted and discussed with speech therapist Correct electrolytes as needed Transfusion as needed Low IV hydration 2D echocardiogram ejection fraction 60% Kidney ultrasound pending results Monitor renal parameters Avoid nephrotoxics Antibiotics for UTI Continue per consultants Subjective ROS Limited/Unobtainable: No Constitutional: Reports: malaise, weakness Objective Objective Last 24 Hour Vital Signs Date Time Temp Pulse Resp B/P (MAP) Pulse Ox O2 Delivery O2 Flow Rate FiO2 08/12/19 12:00 2.0 08/12/19 11:27 98.2 80 20 152/73 (99) 96 90 08/12/19 11:07 171/76 08/12/19 10:48 176/68 08/12/19 09:00 2.0 08/12/19 09:00 Nasal Cannula 2.0 08/12/19 08:36 176/68 08/12/19 08:31 90 176/68 08/12/19 08:00 96.8 79 20 176/68 (104) 96 90 08/12/19 08:00 81 08/12/19 07:24 158/69 08/12/19 06:44 161/74 08/12/19 06:00 76 161/74 (103) 08/12/19 04:00 2.0 08/12/19 04:00 97.2 70 20 180/80 (113) 98 08/12/19 04:00 67 08/12/19 00:00 98.1 75 20 158/73 (101) 96 08/12/19 00:00 2.0 08/12/19 00:00 61 08/11/19 21:53 152/65 08/11/19 21:00 Nasal Cannula 2.0 08/11/19 20:00 84 08/11/19 20:00 99.3 78 20 148/64 (92) 95 08/11/19 17:24 102 133/78 08/11/19 16:00 6.0 08/11/19 16:00 73 08/11/19 16:00 97.0 102 20 133/78 (96) 94 Intake and Output 08/11/19 08/12/19 19:00 07:00 Intake Total 120 ml 120 ml Output Total 1000 ml 1500 ml Balance -880 ml -1380 ml Intake Oral 120 ml 120 ml Output Urine Total 1000 ml 1500 ml Current Medications Medications (Trade) Dose Ordered Sig/Kristine Route PRN Reason Start Time Stop Time Status Last Admin Dose Admin Acetaminophen (Tylenol) 500 mg Q6H PRN ORAL Mild Pain/Temp > 100.5 08/06/19 08:56 09/05/19 08:55 08/07/19 10:47 Barium Sulfate (Varibar Honey) 250 ml NOW PRN MC RAD 08/10/19 10:15 08/13/19 10:06 Barium Sulfate (Varibar Pudding) 230 ml NOW PRN RAD 08/10/19 10:15 08/13/19 10:06 Ceftriaxone Sodium 1 gm/ Dextrose 55 ml @ 110 mls/hr Q24H IVPB 08/07/19 05:00 08/14/19 04:59 08/11/19 05:14 Clonidine HCl (Catapres TTS-1) 1 patch QWEEK TDERMAL 08/12/19 10:00 11/10/19 09:59 08/12/19 11:07 Docusate Sodium (Colace) 250 mg DAILY ORAL 08/06/19 09:00 09/05/19 08:59 08/12/19 08:31 Finasteride (Proscar) 5 mg DAILY ORAL 08/07/19 15:45 11/05/19 15:44 08/12/19 08:31 Furosemide (Lasix) 40 mg DAILY IV 08/12/19 02:25 09/11/19 02:24 08/12/19 09:00 Hydralazine HCl (Apresoline) 10 mg Q4H PRN IV BP over 160 systolic 08/06/19 12:30 11/04/19 12:29 08/12/19 08:36 Hydralazine HCl (Apresoline) 50 mg EVERY 8 HOURS ORAL 08/06/19 14:00 11/04/19 13:59 08/12/19 06:44 Iron Sucrose 100 mg/Sodium Chloride 55 ml @ 200 mls/hr BEDTIME IV 08/06/19 21:00 08/15/19 21:17 08/11/19 20:48 Lorazepam (Ativan 2mg/ml 1ml) 1 mg Q4H PRN IV For Anxiety or agitation 08/06/19 22:30 08/13/19 22:29 08/10/19 00:39 Morphine Sulfate (Morphine Sulfate) 0.5 mg Q4HR PRN IVP Severe Pain (Pain Scale 7-10) 08/07/19 15:45 08/14/19 15:44 08/10/19 13:35 Nifedipine (Procardia XL) 30 mg BID ORAL 08/06/19 18:00 09/05/19 17:59 08/12/19 08:31 Nitroglycerin (Nitro-Bid) 1 inch Q6HR@0600,1200,1800 TOPIC 08/12/19 07:00 09/11/19 06:59 08/12/19 10:48 Olanzapine (ZyPREXA) 2.5 mg DAILY ORAL 08/10/19 09:00 09/24/19 08:59 08/12/19 08:31 Olanzapine (ZyPREXA) 5 mg QHS ORAL 08/10/19 21:00 09/24/19 20:59 08/11/19 20:48 Pantoprazole (Protonix) 40 mg EVERY 12 HOURS IVP 08/06/19 09:00 09/05/19 08:59 08/12/19 08:32 Potassium Chloride (K-Dur) 20 meq BID ORAL 08/12/19 10:15 11/10/19 11:59 08/12/19 10:49 Sennosides (Senokot) 8.6 mg BEDTIME ORAL 08/06/19 21:00 09/05/19 20:59 08/11/19 20:48 Tamsulosin HCl (Flomax) 0.4 mg BEDTIME ORAL 08/06/19 21:00 09/05/19 20:59 08/11/19 20:48 Laboratory Tests 08/12/19 06:22: White Blood Count 9.4, Red Blood Count 3.20L, Hemoglobin 9.6L, Hematocrit 28.3L , Mean Corpuscular Volume 88, Mean Corpuscular Hemoglobin 30.0, Mean Corpuscular Hemoglobin Concent 33.9, Red Cell Distribution Width 14.7, Platelet Count 194, Mean Platelet Volume 6.1L, Neutrophils (%) (Auto) 81.6H, Lymphocytes (%) (Auto) 7.0L, Monocytes (%) (Auto) 8.4, Eosinophils (%) (Auto) 2.3, Basophils (%) (Auto) 0.8, Sodium Level 141, Potassium Level 3.1L, Chloride Level 105, Carbon Dioxide Level 26, Anion Gap 10, Blood Urea Nitrogen 24H, Creatinine 2.0H, Estimat Glomerular Filtration Rate 32.0, Glucose Level 97, Calcium Level 9.5, Phosphorus Level 2.5, Magnesium Level 1.8, Total Bilirubin 0.7, Aspartate Amino Transf (AST/SGOT) 35, Alanine Aminotransferase (ALT/SGPT) 24, Alkaline Phosphatase 108, C-Reactive Protein, Quantitative 5.3H, Pro-B-Type Natriuretic Peptide 78137O, Total Protein 6.2L, Albumin 3.0L, Globulin 3.2, Albumin/Globulin Ratio 0.9L Height (Feet): 5 Height (Inches): 6.00 Weight (Pounds): 147 General Appearance: no apparent distress Cardiovascular: normal rate Respiratory/Chest: decreased breath sounds Abdomen: soft Objective No change Juan Jade MD Aug 12, 2019 13:58
--- NOTE | 2019-08-12 14:10 | NUR ---
INSURANCE DENIAL [facility] IS DENYING THIS ENTIRE STAY DR HUDSON CALLED THEIR LOGGING CREW SUPERVISOR, DR CHAN T: [phone] FOR A PEER TO PEER PER DR HUDSON, LOGGING CREW SUPERVISOR STILL DENIED THIS HOSPITAL STAY WE WILL CONTINUE TO FAX CLINCALS DAILY CASE REF #[id number]
[2019-08-12] MEDS: LORazepam Inj 2mg/ml 1ml IV PRN (14:26)
--- NOTE | 2019-08-12 14:33 | NUR ---
*-*INSURANCE*-* CORRECTED FAX NUMBER DEE SALGUERO F: [phone] REF# [id number]
--- NOTE | 2019-08-12 15:42 | NUR ---
NURSE NOTES:WOUND CARE FOLLOW-UP NOTES:Pressure injury Sacrum,R and L gluteal cheeks resolving. Affected areas less erythematous. No areas of induration or fluctuance noted. R heel boggy with non-blanching erythema. L heel is boggy but now blanchable. Contusions R upper back and R flank as previously documented. No new skin concerns noted. Wound Tx. are effective and continued as ordered. All wound prevention protocols continued as care-planned.
--- NOTE | 2019-08-12 16:12 | Diagnostic Imaging Report ---
Indication: Dysphasia Technique: Fluoroscopic imaging provided for swallow evaluation performed by the speech pathology service. Patient was given various consistencies of barium and fluoroscopic imaging during swallow was performed in a lateral projection. Total fluoroscopy time: 307 seconds Total fluoroscopy dose: 7.11 mGy Total number fluoroscopic runs obtained: 13 IMPRESSION: Fluoroscopic imaging provided for swallow evaluation performed by the speech pathology service. Please see complete report from speech pathology for details.
--- NOTE | 2019-08-12 16:40 | NUR ---
PATIENT REFUSED TO TAKE HIS PO MEDICATIONS AT THIS TIME
--- NOTE | 2019-08-12 19:15 | NUR ---
NURSE NOTES: Received report from LUIS FERNANDO Loving. Patient is asleep lying semi-hampton's; resting comfortably. Arousable to shaking. No signs of acute distress or pain noted at this time. On 3L nasal cannula. AOx1; unable to make needs known. Checked IV site; patent and flushed. No erythema, bleeding, or infiltration noted. Trevino catheter draining well to gravity. Bed at lowest position, brakes on, siderails up x3. Call light within reach. Will continue to monitor.
[2019-08-12] MEDS: Sennosides 8.6mg tab ORAL SCH (22:28)
[2019-08-12] MEDS: Tamsulosin 0.4mg cap ORAL SCH (22:28)
[2019-08-12] MEDS: cefTRIAXone 1 GM in D5W 55 ML IVPB SCH (22:29)
--- NOTE | 2019-08-12 22:45 | Progress Note ---
DATE: 08/12/2019 CARDIOLOGY PROGRESS NOTE SUBJECTIVE: The patient has less shortness of breath. He occasionally desaturates on a nasal cannula. Blood pressure parameters remain high and labile at times. Monitored rhythm, junctional. PHYSICAL EXAMINATION: VITAL SIGNS: Blood pressure 173/66, heart rate 58, and respiratory rate 20. LUNGS: Few rhonchi. CARDIAC: Regular rhythm and rate. Normal S1 and S2. A 1/6 systolic murmur at apex. ABDOMEN: Soft. EXTREMITIES: Trace edema. LABORATORY AND DIAGNOSTIC DATA: Chest x-ray yesterday reveals increasing pleural effusions and congestive heart failure. His diuresis was advanced yesterday. White count 9.4 and hemoglobin 9.6. Potassium 3.1, BUN 24, and creatinine 2. Pro-natriuretic peptide 19,000. Magnesium 1.8. IMPRESSION: 1. Acute on chronic diastolic congestive heart failure. 2. Pleural effusions. 3. Acute on chronic renal failure. 4. Junctional rhythm. 5. Valvular cardiomyopathy. 6. Mitral valve regurgitation. 7. Toxic and metabolic encephalopathies. 8. Cardiac dysrhythmia. 9. . 10. Hypertensive heart disease with labile blood pressure. PLAN: 1. Diuresis with caution. 2. Monitor cardiorenal status and volume parameters. 3. Advance antihypertensives and antimicrobials. 4. Respiratory hygiene. 5. Cardiac monitoring. 6. No role for antiarrhythmics or pacer at this time. 7. We will follow. Gamaliel Salas M.D. DR: TOLU JOB#: [id number] CC:
--- NOTE | 2019-08-12 23:04 | Psych Consult Progress Note ---
Psychiatry Progress Note Psychiatry Progress Note Subjective the pt refuses some meds confused and episodes of agitation he still desats and not stable Medications Current Medications Medications (Trade) Dose Ordered Sig/Kristine Route PRN Reason Start Time Stop Time Status Last Admin Dose Admin Acetaminophen (Tylenol) 500 mg Q6H PRN ORAL Mild Pain/Temp > 100.5 08/06/19 08:56 09/05/19 08:55 08/07/19 10:47 Barium Sulfate (Varibar Honey) 250 ml NOW PRN MC RAD 08/10/19 10:15 08/13/19 10:06 Barium Sulfate (Varibar Pudding) 230 ml NOW PRN MC RAD 08/10/19 10:15 08/13/19 10:06 Ceftriaxone Sodium 1 gm/ Dextrose 55 ml @ 110 mls/hr Q24H IVPB 08/07/19 05:00 08/14/19 04:59 08/11/19 05:14 Clonidine HCl (Catapres TTS-1) 1 patch QWEEK TDERMAL 08/12/19 10:00 11/10/19 09:59 08/12/19 11:07 Docusate Sodium (Colace) 250 mg DAILY ORAL 08/06/19 09:00 09/05/19 08:59 08/12/19 08:31 Finasteride (Proscar) 5 mg DAILY ORAL 08/07/19 15:45 11/05/19 15:44 08/12/19 08:31 Furosemide (Lasix) 40 mg DAILY IV 08/12/19 02:25 09/11/19 02:24 08/12/19 09:00 Hydralazine HCl (Apresoline) 10 mg Q4H PRN IV BP over 160 systolic 08/06/19 12:30 11/04/19 12:29 08/12/19 14:33 Hydralazine HCl (Apresoline) 50 mg EVERY 8 HOURS ORAL 08/06/19 14:00 11/04/19 13:59 08/12/19 22:43 Iron Sucrose 100 mg/Sodium Chloride 55 ml @ 200 mls/hr BEDTIME IV 08/06/19 21:00 08/15/19 21:17 08/12/19 22:28 Lorazepam (Ativan 2mg/ml 1ml) 1 mg Q4H PRN IV For Anxiety or agitation 08/06/19 22:30 08/13/19 22:29 08/12/19 14:26 Morphine Sulfate (Morphine Sulfate) 0.5 mg Q4HR PRN IVP Severe Pain (Pain Scale 7-10) 08/07/19 15:45 08/14/19 15:44 08/10/19 13:35 Nifedipine (Procardia XL) 30 mg BID ORAL 08/06/19 18:00 09/05/19 17:59 08/12/19 08:31 Nitroglycerin (Nitro-Bid) 1 inch Q6HR@0600,1200,1800 TOPIC 08/12/19 07:00 09/11/19 06:59 08/12/19 16:31 Olanzapine (ZyPREXA) 2.5 mg DAILY ORAL 08/10/19 09:00 09/24/19 08:59 08/12/19 08:31 Olanzapine (ZyPREXA) 5 mg QHS ORAL 08/10/19 21:00 09/24/19 20:59 08/12/19 22:48 Pantoprazole (Protonix) 40 mg EVERY 12 HOURS IVP 08/06/19 09:00 09/05/19 08:59 08/12/19 22:28 Potassium Chloride (K-Dur) 20 meq BID ORAL 08/12/19 10:15 11/10/19 11:59 08/12/19 10:49 Sennosides (Senokot) 8.6 mg BEDTIME ORAL 08/06/19 21:00 09/05/19 20:59 08/12/19 22:28 Tamsulosin HCl (Flomax) 0.4 mg BEDTIME ORAL 08/06/19 21:00 09/05/19 20:59 08/12/19 22:28 Neurological/Psychiatric: Reports: anxiety, emotional problems Allergies: Coded Allergies: No Known Allergies (Unverified , 06/05/19) Objective Data Height (Feet): 5 Height (Inches): 6.00 Weight (Pounds): 147 General Appearance: WD/WN, no apparent distress, confused, agitated Appearance: no abnormalities noted Behavior Mannerisms: good eye contact Mental Status Exam - Affect: blunted Speech: clear Mental Status Exam - Thought P: confusion Assessment/Plan Problem List: (1) Encephalopathy due to metabolic factor or toxin SNOMED: [id number] Status: stable, progressing, not improved Assessment/Plan: no medication changes cont Loco Flores rn, MD Aug 12, 2019 23:04
[2019-08-13] VITALS: BP 157/76
[2019-08-13 04:00] VITALS: BP 166/66
[2019-08-13] MEDS: cefTRIAXone 1 GM in D5W 55 ML IVPB SCH (05:40)
[2019-08-13] MEDS: HydrALAZINE 50mg tab ORAL SCH ×3 (05:41→21:12)
[2019-08-13] MEDS: Nitroglycerin 2% oint pkt TOPIC SCH ×3 (05:41→18:00)
--- NOTE | 2019-08-13 06:00 | NUR ---
NURSE NOTES: Administered 0500 Rocephin 1gm IV dose as ordered. Per 7a-7p shift RN, 0500 dose of Rocephin 1gm IV medication was administered by 7p-7a RN on 08/12/2019.
--- NOTE | 2019-08-13 07:10 | NUR ---
HAND-OFF: Report given to LUIS FERNANDO Barbour. Patient is asleep lying semi-hampton's; resting comfortably. On 3L nasal cannula. Trevino catheter draining well to gravity. In stable condition.
[2019-08-13 07:33] LABS: BASOPHILS % (AUTO) 0.7 % (0.0-2.0); EOSINOPHILS % (AUTO) 3.7 % (0.0-3.0); HEMATOCRIT 25.9 % (42.0-52.0); HEMOGLOBIN 8.6 G/DL (14.2-18.0); LYMPHOCYTES % (AUTO) 6.9 % (20.0-45.0); MEAN CORPUSCULAR VOLUME 89 FL (80-99); MONOCYTES % (AUTO) 8.5 % (1.0-10.0); NEUTROPHILS % (AUTO) 80.2 % (45.0-75.0); PLATELET COUNT 205 K/UL (150-450); RED BLOOD COUNT 2.92 M/UL (4.70-6.10); RED CELL DISTRIBUTION WIDTH 14.6 % (11.6-14.8); WHITE BLOOD COUNT 8.7 K/UL (4.8-10.8)
[2019-08-13 07:51] LABS: ALANINE AMINOTRANSFERASE 20 U/L (12-78); ALBUMIN 2.4 G/DL (3.4-5.0); ALBUMIN/GLOBULIN RATIO 0.8 (1.0-2.7); ALKALINE PHOSPHATASE 93 U/L (46-116); ANION GAP 10 mmol/L (5-15); ASPARTATE AMINO TRANSFERASE 25 U/L (15-37); BILIRUBIN,TOTAL 0.6 MG/DL (0.2-1.0); BLOOD UREA NITROGEN 26 mg/dL (7-18); CALCIUM 8.9 MG/DL (8.5-10.1); CARBON DIOXIDE 27 MMOL/L (21-32); CHLORIDE 107 MMOL/L (98-107); CREATININE 2.1 MG/DL (0.55-1.30); POTASSIUM 3.2 MMOL/L (3.5-5.1); SODIUM 144 MMOL/L (136-145)
[2019-08-13 08:00] VITALS: BP 178/65
[2019-08-13] MEDS: Pantoprazole Inj IVP SCH ×2 (08:26→21:13)
[2019-08-13] MEDS: OLANZapine 2.5mg tab ORAL SCH (08:26)
[2019-08-13] MEDS: Docusate 250mg cap ORAL SCH (08:26)
--- NOTE | 2019-08-13 09:46 | Pulmonology Progress Note ---
Assessment/Plan Assessment/Plan IMPRESSION: 1. Pleural effusions, small bilateral. 2. Atelectasis. 3. Pulmonary edema, questionable. 4. Hypertension. 5. Hyperlipidemia. DISCUSSION: Currently, the patient is saturating well on room air or low flow O2. 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 no new recommendations Kimani Hahn M.D. Subjective Interval Events: None new Constitutional: Reports: no symptoms HEENT: Repors: no symptoms Respiratory: Reports: no symptoms Cardiovascular: Reports: no symptoms Gastrointestinal/Abdominal: Reports: no symptoms Allergies: Coded Allergies: No Known Allergies (Unverified , 06/05/19) Objective Last 24 Hour Vital Signs Date Time Temp Pulse Resp B/P (MAP) Pulse Ox O2 Delivery O2 Flow Rate FiO2 08/13/19 09:00 Nasal Cannula 3.0 08/13/19 08:26 178/65 08/13/19 08:26 61 178/65 08/13/19 08:00 61 08/13/19 08:00 98.1 61 19 178/65 (102) 100 08/13/19 08:00 3.0 08/13/19 07:00 67 18 98 Nasal Cannula 3.0 32 08/13/19 07:00 98 Nasal Cannula 3.0 32 08/13/19 05:41 166/66 08/13/19 05:41 166/66 08/13/19 04:00 98.7 67 19 166/66 (99) 100 08/13/19 04:00 61 08/13/19 04:00 3.0 08/13/19 00:00 98.8 69 19 157/76 (103) 98 08/13/19 00:00 3.0 08/13/19 00:00 58 08/12/19 22:43 147/63 08/12/19 21:00 Nasal Cannula 3.0 08/12/19 20:00 3.0 08/12/19 20:00 98.8 79 17 147/63 (91) 98 08/12/19 20:00 65 08/12/19 19:24 72 18 99 Nasal Cannula 3.0 32 08/12/19 19:24 99 Nasal Cannula 3.0 32 08/12/19 16:31 173/66 08/12/19 16:00 2.0 08/12/19 16:00 63 08/12/19 15:41 98.8 60 20 173/66 (101) 98 90 08/12/19 14:33 173/66 08/12/19 12:00 2.0 08/12/19 12:00 58 08/12/19 11:27 98.2 80 20 152/73 (99) 96 90 08/12/19 11:07 171/76 08/12/19 10:48 176/68 Intake and Output 08/12/19 08/13/19 19:00 07:00 Intake Total 110 ml Output Total 2700 ml 750 ml Balance -2700 ml -640 ml IV Total 110 ml Output Urine Total 2700 ml 750 ml General Appearance: no acute distress HEENT: normocephalic Respiratory/Chest: chest wall non-tender Cardiovascular: normal peripheral pulses Abdomen: normal bowel sounds Laboratory Tests 08/13/19 06:00: White Blood Count 8.7, Red Blood Count 2.92L, Hemoglobin 8.6L, Hematocrit 25.9L , Mean Corpuscular Volume 89, Mean Corpuscular Hemoglobin 29.5, Mean Corpuscular Hemoglobin Concent 33.2, Red Cell Distribution Width 14.6, Platelet Count 205, Mean Platelet Volume 6.1L, Neutrophils (%) (Auto) 80.2H, Lymphocytes (%) (Auto) 6.9L, Monocytes (%) (Auto) 8.5, Eosinophils (%) (Auto) 3.7H, Basophils (%) (Auto) 0.7, Sodium Level 144, Potassium Level 3.2L, Chloride Level 107, Carbon Dioxide Level 27, Anion Gap 10, Blood Urea Nitrogen 26H, Creatinine 2.1H, Estimat Glomerular Filtration Rate 30.2, Glucose Level 78, Calcium Level 8.9, Total Bilirubin 0.6, Aspartate Amino Transf (AST/SGOT) 25, Alanine Aminotransferase (ALT/SGPT) 20, Alkaline Phosphatase 93, Total Protein 5.3L, Albumin 2.4L, Globulin 2.9, Albumin/Globulin Ratio 0.8L Current Medications Medications (Trade) Dose Ordered Sig/Kristine Route PRN Reason Start Time Stop Time Status Last Admin Dose Admin Acetaminophen (Tylenol) 500 mg Q6H PRN ORAL Mild Pain/Temp > 100.5 08/06/19 08:56 09/05/19 08:55 08/07/19 10:47 Barium Sulfate (Varibar Honey) 250 ml NOW PRN MC RAD 08/10/19 10:15 08/13/19 10:06 Barium Sulfate (Varibar Pudding) 230 ml NOW PRN RAD 08/10/19 10:15 08/13/19 10:06 Ceftriaxone Sodium 1 gm/ Dextrose 55 ml @ 110 mls/hr Q24H IVPB 08/07/19 05:00 08/14/19 04:59 08/13/19 05:40 Clonidine HCl (Catapres TTS-1) 1 patch QWEEK TDERMAL 08/12/19 10:00 11/10/19 09:59 08/12/19 11:07 Docusate Sodium (Colace) 250 mg DAILY ORAL 08/06/19 09:00 09/05/19 08:59 08/13/19 08:26 Finasteride (Proscar) 5 mg DAILY ORAL 08/07/19 15:45 11/05/19 15:44 08/13/19 08:26 Furosemide (Lasix) 40 mg DAILY IV 08/12/19 02:25 09/11/19 02:24 08/13/19 08:26 Hydralazine HCl (Apresoline) 10 mg Q4H PRN IV BP over 160 systolic 08/06/19 12:30 11/04/19 12:29 08/13/19 08:26 Hydralazine HCl (Apresoline) 50 mg EVERY 8 HOURS ORAL 08/06/19 14:00 11/04/19 13:59 08/13/19 05:41 Iron Sucrose 100 mg/Sodium Chloride 55 ml @ 200 mls/hr BEDTIME IV 08/06/19 21:00 08/15/19 21:17 08/12/19 22:28 Lorazepam (Ativan 2mg/ml 1ml) 1 mg Q4H PRN IV For Anxiety or agitation 08/06/19 22:30 08/13/19 22:29 08/12/19 14:26 Morphine Sulfate (Morphine Sulfate) 0.5 mg Q4HR PRN IVP Severe Pain (Pain Scale 7-10) 08/07/19 15:45 08/14/19 15:44 08/10/19 13:35 Nifedipine (Procardia XL) 30 mg BID ORAL 08/06/19 18:00 09/05/19 17:59 08/13/19 08:26 Nitroglycerin (Nitro-Bid) 1 inch Q6HR@0600,1200,1800 TOPIC 08/12/19 07:00 09/11/19 06:59 08/13/19 05:41 Olanzapine (ZyPREXA) 2.5 mg DAILY ORAL 08/10/19 09:00 09/24/19 08:59 08/13/19 08:26 Olanzapine (ZyPREXA) 5 mg QHS ORAL 08/10/19 21:00 09/24/19 20:59 08/12/19 22:48 Pantoprazole (Protonix) 40 mg EVERY 12 HOURS IVP 08/06/19 09:00 09/05/19 08:59 08/13/19 08:26 Potassium Chloride 100 ml @ 100 mls/hr Q1HR IVPB 08/13/19 10:00 08/13/19 12:59 Potassium Chloride (K-Dur) 20 meq BID ORAL 08/12/19 10:15 11/10/19 11:59 08/13/19 09:09 Sennosides (Senokot) 8.6 mg BEDTIME ORAL 08/06/19 21:00 09/05/19 20:59 08/12/19 22:28 Sodium Chloride 300 ml @ 100 mls/hr Q3H IV 08/13/19 10:00 08/13/19 12:59 Tamsulosin HCl (Flomax) 0.4 mg BEDTIME ORAL 08/06/19 21:00 09/05/19 20:59 08/12/19 22:28 Kimani Hahn MD Aug 13, 2019 09:46
--- NOTE | 2019-08-13 09:55 | Urology Progress Note ---
Assessment/Plan Status: stable, progressing, not improved Assessment/Plan: 1. Gross hematuria, presumably secondary to Doshi trauma. 2. BPH. 3. Urinary retention. 4. Neurogenic bladder. 5. Pyuria. 6. Proteinuria. 7. Renal insufficiency, which appears to be acute on chronic. 8. Rule out urethral stricture. monitor clinically maintain doshi, placed 08/06 hand irrigated and do PRN, no clots cont flomax and proscar abx as ordered off anticoagulation, resume soon? restraints cysto at some point voiding trial later, once pt more clinically stable d/w nursing staff Subjective Allergies: Coded Allergies: No Known Allergies (Unverified , 06/05/19) Subjective all noted, confused Objective Last 24 Hour Vital Signs Date Time Temp Pulse Resp B/P (MAP) Pulse Ox O2 Delivery O2 Flow Rate FiO2 08/13/19 09:00 Nasal Cannula 3.0 08/13/19 08:26 178/65 08/13/19 08:26 61 178/65 08/13/19 08:00 61 08/13/19 08:00 98.1 61 19 178/65 (102) 100 08/13/19 08:00 3.0 08/13/19 07:00 67 18 98 Nasal Cannula 3.0 32 08/13/19 07:00 98 Nasal Cannula 3.0 32 08/13/19 05:41 166/66 08/13/19 05:41 166/66 08/13/19 04:00 98.7 67 19 166/66 (99) 100 08/13/19 04:00 61 08/13/19 04:00 3.0 08/13/19 00:00 98.8 69 19 157/76 (103) 98 08/13/19 00:00 3.0 08/13/19 00:00 58 08/12/19 22:43 147/63 08/12/19 21:00 Nasal Cannula 3.0 08/12/19 20:00 3.0 08/12/19 20:00 98.8 79 17 147/63 (91) 98 08/12/19 20:00 65 08/12/19 19:24 72 18 99 Nasal Cannula 3.0 32 08/12/19 19:24 99 Nasal Cannula 3.0 32 08/12/19 16:31 173/66 3/27/20 16:00 2.0 08/12/19 16:00 63 08/12/19 15:41 98.8 60 20 173/66 (101) 98 90 08/12/19 14:33 173/66 08/12/19 12:00 2.0 08/12/19 12:00 58 08/12/19 11:27 98.2 80 20 152/73 (99) 96 90 08/12/19 11:07 171/76 08/12/19 10:48 176/68 Intake and Output 08/12/19 08/13/19 19:00 07:00 Intake Total 110 ml Output Total 2700 ml 750 ml Balance -2700 ml -640 ml IV Total 110 ml Output Urine Total 2700 ml 750 ml Microbiology Date/Time Source Procedure Growth Status 08/06/19 04:45 Nasal Nares - Final Complete 08/06/19 04:45 Nasal Nares - Final Complete 08/06/19 04:45 Rectum VRE Culture - Final NO VANCOMYCIN RESISTANT ENTEROCOCCUS ... Complete Current Medications Medications (Trade) Dose Ordered Sig/Kristine Route PRN Reason Start Time Stop Time Status Last Admin Dose Admin Acetaminophen (Tylenol) 500 mg Q6H PRN ORAL Mild Pain/Temp > 100.5 08/06/19 08:56 09/05/19 08:55 08/07/19 10:47 Barium Sulfate (Varibar Honey) 250 ml NOW PRN MC RAD 08/10/19 10:15 08/13/19 10:06 Barium Sulfate (Varibar Pudding) 230 ml NOW PRN MC RAD 08/10/19 10:15 08/13/19 10:06 Ceftriaxone Sodium 1 gm/ Dextrose 55 ml @ 110 mls/hr Q24H IVPB 08/07/19 05:00 08/14/19 04:59 08/13/19 05:40 Clonidine HCl (Catapres TTS-1) 1 patch QWEEK TDERMAL 08/12/19 10:00 11/10/19 09:59 08/12/19 11:07 Docusate Sodium (Colace) 250 mg DAILY ORAL 08/06/19 09:00 09/05/19 08:59 08/13/19 08:26 Finasteride (Proscar) 5 mg DAILY ORAL 08/07/19 15:45 11/05/19 15:44 08/13/19 08:26 Furosemide (Lasix) 40 mg DAILY IV 08/12/19 02:25 09/11/19 02:24 08/13/19 08:26 Hydralazine HCl (Apresoline) 10 mg Q4H PRN IV BP over 160 systolic 08/06/19 12:30 11/04/19 12:29 08/13/19 08:26 Hydralazine HCl (Apresoline) 50 mg EVERY 8 HOURS ORAL 08/06/19 14:00 11/04/19 13:59 08/13/19 05:41 Iron Sucrose 100 mg/Sodium Chloride 55 ml @ 200 mls/hr BEDTIME IV 08/06/19 21:00 08/15/19 21:17 08/12/19 22:28 Lorazepam (Ativan 2mg/ml 1ml) 1 mg Q4H PRN IV For Anxiety or agitation 08/06/19 22:30 08/13/19 22:29 08/12/19 14:26 Morphine Sulfate (Morphine Sulfate) 0.5 mg Q4HR PRN IVP Severe Pain (Pain Scale 7-10) 08/07/19 15:45 08/14/19 15:44 08/10/19 13:35 Nifedipine (Procardia XL) 30 mg BID ORAL 08/06/19 18:00 09/05/19 17:59 08/13/19 08:26 Nitroglycerin (Nitro-Bid) 1 inch Q6HR@0600,1200,1800 TOPIC 08/12/19 07:00 09/11/19 06:59 08/13/19 05:41 Olanzapine (ZyPREXA) 2.5 mg DAILY ORAL 08/10/19 09:00 09/24/19 08:59 08/13/19 08:26 Olanzapine (ZyPREXA) 5 mg QHS ORAL 08/10/19 21:00 09/24/19 20:59 08/12/19 22:48 Pantoprazole (Protonix) 40 mg EVERY 12 HOURS IVP 08/06/19 09:00 09/05/19 08:59 08/13/19 08:26 Potassium Chloride 100 ml @ 100 mls/hr Q1HR IVPB 08/13/19 10:00 08/13/19 12:59 Potassium Chloride (K-Dur) 20 meq BID ORAL 3/27/20 10:15 11/10/19 11:59 08/13/19 09:09 Sennosides (Senokot) 8.6 mg BEDTIME ORAL 08/06/19 21:00 09/05/19 20:59 08/12/19 22:28 Sodium Chloride 300 ml @ 100 mls/hr Q3H IV 08/13/19 10:00 08/13/19 12:59 Tamsulosin HCl (Flomax) 0.4 mg BEDTIME ORAL 08/06/19 21:00 09/05/19 20:59 08/12/19 22:28 Laboratory Tests 08/13/19 06:00: White Blood Count 8.7, Red Blood Count 2.92L, Hemoglobin 8.6L, Hematocrit 25.9L , Mean Corpuscular Volume 89, Mean Corpuscular Hemoglobin 29.5, Mean Corpuscular Hemoglobin Concent 33.2, Red Cell Distribution Width 14.6, Platelet Count 205, Mean Platelet Volume 6.1L, Neutrophils (%) (Auto) 80.2H, Lymphocytes (%) (Auto) 6.9L, Monocytes (%) (Auto) 8.5, Eosinophils (%) (Auto) 3.7H, Basophils (%) (Auto) 0.7, Sodium Level 144, Potassium Level 3.2L, Chloride Level 107, Carbon Dioxide Level 27, Anion Gap 10, Blood Urea Nitrogen 26H, Creatinine 2.1H, Estimat Glomerular Filtration Rate 30.2, Glucose Level 78, Calcium Level 8.9, Total Bilirubin 0.6, Aspartate Amino Transf (AST/SGOT) 25, Alanine Aminotransferase (ALT/SGPT) 20, Alkaline Phosphatase 93, Total Protein 5.3L, Albumin 2.4L, Globulin 2.9, Albumin/Globulin Ratio 0.8L Height (Feet): 5 Height (Inches): 6.00 Weight (Pounds): 147 Objective exam stable abdomen soft, doshi indwelling, urine denia/blood tinged Bamshad,Miki Perry MD Aug 13, 2019 09:55
[2019-08-13] MEDS ORDERED: Sodium Chloride for KCL Premix X 3hrs IV SCH (10:00)
[2019-08-13 12:00] VITALS: BP 130/54
--- NOTE | 2019-08-13 12:14 | General Progress Note ---
Assessment/Plan Problem List: (1) CHF (congestive heart failure) ICD Codes: I50.9 - Heart failure, unspecified SNOMED: 70627315 (2) Renal failure (ARF), acute on chronic ICD Codes: N17.9 - Acute kidney failure, unspecified; N18.9 - Chronic kidney disease, unspecified SNOMED: 077384770 (3) Encephalopathy due to metabolic factor or toxin SNOMED: 650468618 (4) Gross hematuria ICD Codes: R31.0 - Gross hematuria SNOMED: 224544784 (5) Falls frequently ICD Codes: R29.6 - Repeated falls SNOMED: 140907831 (6) Dehydration ICD Codes: E86.0 - Dehydration SNOMED: 47255860 (7) UTI (urinary tract infection) ICD Codes: N39.0 - Urinary tract infection, site not specified SNOMED: 61068271 (8) Anemia ICD Codes: D64.9 - Anemia, unspecified SNOMED: 527340311 Status: stable, progressing, not improved Assessment/Plan: cont current rx monitor cxr resp rx and o2 iv abx to cover for pna diuresis monitor renal fxn and lytes added catapress patch anxiolytics doshi restraints for safety Subjective ROS Limited/Unobtainable: Yes Constitutional: Reports: malaise, weakness HEENT: Reports: no symptoms Cardiovascular: Reports: no symptoms Respiratory: Reports: cough, shortness of breath Gastrointestinal/Abdominal: Reports: difficulty swallowing Genitourinary: Reports: no symptoms Neurologic/Psychiatric: Reports: pre-existing deficit Endocrine: Reports: no symptoms Hematologic/Lymphatic: Reports: anemia Allergies: Coded Allergies: No Known Allergies (Unverified , 06/05/19) All Systems: reviewed and negative except above Subjective There have been no overnight events. Patient's breathing is stabilized and he is now on 3 L of nasal cannula. He remains confused and at times is mumbling incomprehensibly. He is on IV antibiotics and IV diuretic treatment. Chest x- ray 2 days ago showed worsening congestive heart failure. Objective Last 24 Hour Vital Signs Date Time Temp Pulse Resp B/P (MAP) Pulse Ox O2 Delivery O2 Flow Rate FiO2 08/13/19 09:00 Nasal Cannula 3.0 08/13/19 08:26 178/65 08/13/19 08:26 61 178/65 3/28/20 08:00 61 08/13/19 08:00 98.1 61 19 178/65 (102) 100 08/13/19 08:00 3.0 08/13/19 07:00 67 18 98 Nasal Cannula 3.0 32 08/13/19 07:00 98 Nasal Cannula 3.0 32 08/13/19 05:41 166/66 08/13/19 05:41 166/66 08/13/19 04:00 98.7 67 19 166/66 (99) 100 08/13/19 04:00 61 08/13/19 04:00 3.0 08/13/19 00:00 98.8 69 19 157/76 (103) 98 08/13/19 00:00 3.0 08/13/19 00:00 58 08/12/19 22:43 147/63 08/12/19 21:00 Nasal Cannula 3.0 08/12/19 20:00 3.0 08/12/19 20:00 98.8 79 17 147/63 (91) 98 08/12/19 20:00 65 08/12/19 19:24 72 18 99 Nasal Cannula 3.0 32 08/12/19 19:24 99 Nasal Cannula 3.0 32 08/12/19 16:31 173/66 08/12/19 16:00 2.0 08/12/19 16:00 63 08/12/19 15:41 98.8 60 20 173/66 (101) 98 90 08/12/19 14:33 173/66 Intake and Output 08/12/19 08/13/19 19:00 07:00 Intake Total 110 ml Output Total 2700 ml 750 ml Balance -2700 ml -640 ml IV Total 110 ml Output Urine Total 2700 ml 750 ml Laboratory Tests 08/13/19 06:00: White Blood Count 8.7, Red Blood Count 2.92L, Hemoglobin 8.6L, Hematocrit 25.9L , Mean Corpuscular Volume 89, Mean Corpuscular Hemoglobin 29.5, Mean Corpuscular Hemoglobin Concent 33.2, Red Cell Distribution Width 14.6, Platelet Count 205, Mean Platelet Volume 6.1L, Neutrophils (%) (Auto) 80.2H, Lymphocytes (%) (Auto) 6.9L, Monocytes (%) (Auto) 8.5, Eosinophils (%) (Auto) 3.7H, Basophils (%) (Auto) 0.7, Sodium Level 144, Potassium Level 3.2L, Chloride Level 107, Carbon Dioxide Level 27, Anion Gap 10, Blood Urea Nitrogen 26H, Creatinine 2.1H, Estimat Glomerular Filtration Rate 30.2, Glucose Level 78, Calcium Level 8.9, Total Bilirubin 0.6, Aspartate Amino Transf (AST/SGOT) 25, Alanine Aminotransferase (ALT/SGPT) 20, Alkaline Phosphatase 93, Total Protein 5.3L, Albumin 2.4L, Globulin 2.9, Albumin/Globulin Ratio 0.8L Height (Feet): 5 Height (Inches): 6.00 Weight (Pounds): 147 Objective General Appearance: WD/WN, alert, confused Neck: supple Cardiovascular: regular rhythm Respiratory/Chest: rhonchi - bilaterally Abdomen: normal bowel sounds, non tender, soft, no organomegaly, no mass Edema: no edema noted Arm (L), no edema noted Arm (R), no edema noted Leg (L), no edema noted Leg (R), no edema noted Pedal (L), no edema noted Pedal (R), no edema noted Generalized Neurologic: dopeman II-XII grossly normal, alert, responsive Iggy Echavarria MD Aug 13, 2019 12:14
[2019-08-13] MEDS: Morphine Sulfate 2mg/ml Inj(IV/IM USE ONLY) IVP PRN (12:16)
[2019-08-13] MEDS: LORazepam Inj 2mg/ml 1ml IV PRN (14:19)
--- NOTE | 2019-08-13 14:49 | Nephrology Progress Note ---
Assessment/Plan Problem List: (1) Renal failure (ARF), acute on chronic Assessment: Serum creatinine started rising again (2) Falls frequently (3) UTI (urinary tract infection) Assessment: and hematuria (4) Anemia (5) Dehydration (6) Encephalopathy due to metabolic factor or toxin Assessment Frequent falls Acute renal failure with underlying dehydration Anemia, underlying etiology unclear UTI (urinary tract infection) Toxic metabolic encephalopathy Plan Serum creatinine rising as the patient receiving Lasix Speech therapy evaluation noted and discussed with speech therapist Correct electrolytes as needed Transfusion as needed Low IV hydration 2D echocardiogram ejection fraction 60% Kidney ultrasound pending results Monitor renal parameters Avoid nephrotoxics Antibiotics for UTI Continue per consultants Subjective ROS Limited/Unobtainable: No Constitutional: Reports: malaise Objective Objective Last 24 Hour Vital Signs Date Time Temp Pulse Resp B/P (MAP) Pulse Ox O2 Delivery O2 Flow Rate FiO2 08/13/19 14:05 136/54 08/13/19 12:15 136/54 08/13/19 12:00 74 08/13/19 12:00 96.8 76 20 130/54 (79) 98 08/13/19 09:00 Nasal Cannula 3.0 08/13/19 08:26 178/65 08/13/19 08:26 61 178/65 08/13/19 08:00 61 08/13/19 08:00 98.1 61 19 178/65 (102) 100 08/13/19 08:00 3.0 08/13/19 07:00 67 18 98 Nasal Cannula 3.0 32 08/13/19 07:00 98 Nasal Cannula 3.0 32 08/13/19 05:41 166/66 08/13/19 05:41 166/66 08/13/19 04:00 98.7 67 19 166/66 (99) 100 08/13/19 04:00 61 08/13/19 04:00 3.0 08/13/19 00:00 98.8 69 19 157/76 (103) 98 08/13/19 00:00 3.0 08/13/19 00:00 58 08/12/19 22:43 147/63 08/12/19 21:00 Nasal Cannula 3.0 08/12/19 20:00 3.0 08/12/19 20:00 98.8 79 17 147/63 (91) 98 08/12/19 20:00 65 08/12/19 19:24 72 18 99 Nasal Cannula 3.0 32 08/12/19 19:24 99 Nasal Cannula 3.0 32 08/12/19 16:31 173/66 08/12/19 16:00 2.0 08/12/19 16:00 63 08/12/19 15:41 98.8 60 20 173/66 (101) 98 90 Intake and Output 08/12/19 08/13/19 19:00 07:00 Intake Total 110 ml Output Total 2700 ml 750 ml Balance -2700 ml -640 ml IV Total 110 ml Output Urine Total 2700 ml 750 ml Laboratory Tests 08/13/19 06:00: White Blood Count 8.7, Red Blood Count 2.92L, Hemoglobin 8.6L, Hematocrit 25.9L , Mean Corpuscular Volume 89, Mean Corpuscular Hemoglobin 29.5, Mean Corpuscular Hemoglobin Concent 33.2, Red Cell Distribution Width 14.6, Platelet Count 205, Mean Platelet Volume 6.1L, Neutrophils (%) (Auto) 80.2H, Lymphocytes (%) (Auto) 6.9L, Monocytes (%) (Auto) 8.5, Eosinophils (%) (Auto) 3.7H, Basophils (%) (Auto) 0.7, Sodium Level 144, Potassium Level 3.2L, Chloride Level 107, Carbon Dioxide Level 27, Anion Gap 10, Blood Urea Nitrogen 26H, Creatinine 2.1H, Estimat Glomerular Filtration Rate 30.2, Glucose Level 78, Calcium Level 8.9, Total Bilirubin 0.6, Aspartate Amino Transf (AST/SGOT) 25, Alanine Aminotransferase (ALT/SGPT) 20, Alkaline Phosphatase 93, Total Protein 5.3L, Albumin 2.4L, Globulin 2.9, Albumin/Globulin Ratio 0.8L Height (Feet): 5 Height (Inches): 6.00 Weight (Pounds): 147 General Appearance: agitated - mild Cardiovascular: normal rate Respiratory/Chest: decreased breath sounds Abdomen: soft Objective No change Juan Jade MD Aug 13, 2019 14:49
[2019-08-13 15:18] VITALS: BP 148/59
--- NOTE | 2019-08-13 19:35 | NUR ---
NURSE NOTES: Received report from LUIS FERNANDO Brown. Patient is awake lying semi-hampton's; resting comfortably. No signs of acute distress noted; denies pain at this time. On 3L nasal cannula. AOx1; able to make needs known to a limited degree. Primarily [place] speaking. Checked IV site; patent and flushed. No erythema, bleeding, or infiltration noted. Trevino catheter draining well to gravity. Bed at lowest position, brakes on, siderails up x3. Call light within reach. Will continue to monitor.
[2019-08-13 20:00] VITALS: BP 186/64
[2019-08-13] MEDS: Sennosides 8.6mg tab ORAL SCH (21:12)
[2019-08-13] MEDS: Tamsulosin 0.4mg cap ORAL SCH (21:12)
[2019-08-14] VITALS: BP 188/62
--- NOTE | 2019-08-14 03:00 | Progress Note ---
DATE: 08/13/2019 CARDIOLOGY PROGRESS NOTE SUBJECTIVE: The patient is saturating well on room air. No respiratory distress. Blood pressure parameters are still increasing and labile. Agitation is . OBJECTIVE: VITAL SIGNS: Blood pressure 186/64, pulse 67, respirations 20, and afebrile. Monitored rhythm junctional. LUNGS: Bilateral breath sounds. CARDIAC: Regular rhythm and rate. Normal S1, S2. ABDOMEN: Soft. EXTREMITIES: No edema. LABORATORY DATA: White count 8.7, hemoglobin 8.6. Potassium 3.2, BUN 26, creatinine 2.1. IMPRESSION: 1. Sddfd-[id number] renal failure with increase in creatinine following diuresis. 2. Recurring falls, likely multifactorial. 3. Conduction system disease with junctional rhythm. 4. Valvular cardiomyopathy with mitral valve repair. 5. Hypertensive heart disease with rising blood pressure range. PLAN: 1. Maintenance dose diuretic. 2. Currently, no role for pacemaker. 3. Outpatient Zio patch should be considered. 4. Advance antihypertensive and anti-failure regimen. Gamaliel Salas M.D. DR: BENITA JOB#: [id number] CC:
[2019-08-14 04:00] VITALS: BP 160/62
--- NOTE | 2019-08-14 04:00 | Progress Note ---
DATE: 08/06/2019 SUBJECTIVE: The patient is in bed. No acute distress noted. He is more manageable, less agitation. No new events. MENTAL STATUS EXAM: The patient is oriented to times and self. Mood is neutral to anxious. Affect is flat. Thought process, there is paucity of thought content. Thought content, no suicidal ideation. ASSESSMENT: Dementia with behavior disturbance. PLAN: 1. Zyprexa 2.5 mg and 5 mg at bedtime 2. Discussed with the nurse. Loco Luu M.D. DR: Twyla JOB#: [id number] CC: JAISON
--- NOTE | 2019-08-14 04:19 | NUR ---
NURSE NOTES: Patient is awake lying semi-hampton's, restless and mumbling words relentlessly, but in no acute distress or pain noted at this time. Trevino catheter draining well to gravity.
[2019-08-14] MEDS: HydrALAZINE 50mg tab ORAL SCH ×2 (06:31→14:00)
[2019-08-14] MEDS: Nitroglycerin 2% oint pkt TOPIC SCH ×3 (06:31→18:19)
--- NOTE | 2019-08-14 07:16 | NUR ---
HAND-OFF: Report given to LUIS FERNANDO Brown. Patient is awake lying semi-hampton's, still restless. In stable condition otherwise. Trevino catheter draining well to gravity.
[2019-08-14] MEDS ORDERED: Pneumococcal Vaccine 25mcg/0.5ml IM ONE (07:45)
[2019-08-14 07:59] VITALS: BP 178/64
[2019-08-14] MEDS: Docusate 250mg cap ORAL SCH (08:21)
[2019-08-14] MEDS: OLANZapine 2.5mg tab ORAL SCH (08:22)
[2019-08-14] MEDS: Pantoprazole Inj IVP SCH ×2 (08:23→22:52)
[2019-08-14 08:28] LABS: ALANINE AMINOTRANSFERASE 21 U/L (12-78); ALBUMIN 2.5 G/DL (3.4-5.0); ALBUMIN/GLOBULIN RATIO 0.8 (1.0-2.7); ALKALINE PHOSPHATASE 95 U/L (46-116); ANION GAP 14 mmol/L (5-15); ASPARTATE AMINO TRANSFERASE 27 U/L (15-37); BILIRUBIN,TOTAL 0.6 MG/DL (0.2-1.0); BLOOD UREA NITROGEN 30 mg/dL (7-18); CALCIUM 9.5 MG/DL (8.5-10.1); CARBON DIOXIDE 25 MMOL/L (21-32); CHLORIDE 107 MMOL/L (98-107); CREATININE 2.1 MG/DL (0.55-1.30); POTASSIUM 3.7 MMOL/L (3.5-5.1); SODIUM 146 MMOL/L (136-145)
[2019-08-14] MEDS: LORazepam Inj 2mg/ml 1ml IV PRN (09:54)
--- NOTE | 2019-08-14 11:00 | Nephrology Progress Note ---
Assessment/Plan Problem List: (1) Renal failure (ARF), acute on chronic Assessment: Serum creatinine started rising again (2) Falls frequently (3) UTI (urinary tract infection) Assessment: and hematuria (4) Anemia (5) Dehydration (6) Encephalopathy due to metabolic factor or toxin Assessment Frequent falls Acute renal failure with underlying dehydration Anemia, underlying etiology unclear UTI (urinary tract infection) Toxic metabolic encephalopathy Plan Serum creatinine rising as the patient receiving Lasix Speech therapy evaluation noted and discussed with speech therapist Correct electrolytes as needed Transfusion as needed Low IV hydration 2D echocardiogram ejection fraction 60% Kidney ultrasound pending results Monitor renal parameters Avoid nephrotoxics Antibiotics for UTI Continue per consultants Subjective ROS Limited/Unobtainable: No Constitutional: Reports: malaise, weakness Objective Objective Last 24 Hour Vital Signs Date Time Temp Pulse Resp B/P (MAP) Pulse Ox O2 Delivery O2 Flow Rate FiO2 08/14/19 08:22 65 178/64 08/14/19 07:59 97.9 65 20 178/64 (102) 96 08/14/19 07:00 96 Nasal Cannula 2.0 28 08/14/19 07:00 65 18 96 Nasal Cannula 2.0 28 08/14/19 06:31 160/62 08/14/19 06:31 160/62 08/14/19 04:00 97.0 78 22 160/62 (94) 100 08/14/19 04:00 68 08/14/19 01:40 188/62 08/14/19 00:00 97.5 70 19 188/62 (104) 97 08/14/19 00:00 62 08/13/19 21:12 186/64 08/13/19 21:00 Nasal Cannula 2.0 08/13/19 20:00 97.5 67 20 186/64 (104) 91 08/13/19 20:00 69 08/13/19 18:00 148/59 08/13/19 18:00 59 148/59 08/13/19 16:00 59 08/13/19 15:18 97.9 63 20 148/59 (88) 98 08/13/19 14:05 136/54 08/13/19 12:15 136/54 08/13/19 12:00 74 08/13/19 12:00 96.8 76 20 130/54 (79) 98 Intake and Output 08/13/19 08/14/19 19:00 07:00 Intake Total 170 ml 295 ml Output Total 500 ml 1200 ml Balance -330 ml -905 ml Intake Oral 170 ml 240 ml IV Total 55 ml Output Urine Total 500 ml 1200 ml Laboratory Tests 08/14/19 06:25: Sodium Level 146H, Potassium Level 3.7, Chloride Level 107, Carbon Dioxide Level 25, Anion Gap 14, Blood Urea Nitrogen 30H, Creatinine 2.1H, Estimat Glomerular Filtration Rate 30.2, Glucose Level 72L, Calcium Level 9.5, Total Bilirubin 0.6, Aspartate Amino Transf (AST/SGOT) 27, Alanine Aminotransferase ( ALT/SGPT) 21, Alkaline Phosphatase 95, Total Protein 5.5L, Albumin 2.5L, Globulin 3.0, Albumin/Globulin Ratio 0.8L Height (Feet): 5 Height (Inches): 6.00 Weight (Pounds): 160 General Appearance: no apparent distress, confused Respiratory/Chest: decreased breath sounds Abdomen: soft Objective No change Juan Jade MD Aug 14, 2019 11:00
--- NOTE | 2019-08-14 11:21 | Urology Progress Note ---
Assessment/Plan Status: stable, progressing, not improved Assessment/Plan: 1. Gross hematuria, presumably secondary to Doshi trauma. 2. BPH. 3. Urinary retention. 4. Neurogenic bladder. 5. Pyuria. 6. Proteinuria. 7. Renal insufficiency, which appears to be acute on chronic. 8. Rule out urethral stricture. monitor clinically maintain doshi, placed 08/06 hand irrigated and do PRN, no clots cont flomax and proscar s/p abx off anticoagulation, resume soon? restraints cysto at some point voiding trial later, once pt more clinically stable Subjective Allergies: Coded Allergies: No Known Allergies (Unverified , 06/05/19) Subjective all noted, confused Objective Last 24 Hour Vital Signs Date Time Temp Pulse Resp B/P (MAP) Pulse Ox O2 Delivery O2 Flow Rate FiO2 08/14/19 09:00 Nasal Cannula 2.0 08/14/19 08:22 65 178/64 08/14/19 08:00 66 08/14/19 07:59 97.9 65 20 178/64 (102) 96 08/14/19 07:00 96 Nasal Cannula 2.0 28 08/14/19 07:00 65 18 96 Nasal Cannula 2.0 28 08/14/19 06:31 160/62 08/14/19 06:31 160/62 08/14/19 04:00 97.0 78 22 160/62 (94) 100 08/14/19 04:00 68 08/14/19 01:40 188/62 08/14/19 00:00 97.5 70 19 188/62 (104) 97 08/14/19 00:00 62 08/13/19 21:12 186/64 08/13/19 21:00 Nasal Cannula 2.0 08/13/19 20:00 97.5 67 20 186/64 (104) 91 08/13/19 20:00 69 08/13/19 18:00 148/59 08/13/19 18:00 59 148/59 08/13/19 16:00 59 08/13/19 15:18 97.9 63 20 148/59 (88) 98 08/13/19 14:05 136/54 08/13/19 12:15 136/54 08/13/19 12:00 74 08/13/19 12:00 96.8 76 20 130/54 (79) 98 Intake and Output 08/13/19 08/14/19 19:00 07:00 Intake Total 170 ml 295 ml Output Total 500 ml 1200 ml Balance -330 ml -905 ml Intake Oral 170 ml 240 ml IV Total 55 ml Output Urine Total 500 ml 1200 ml Microbiology Date/Time Source Procedure Growth Status 08/06/19 04:45 Nasal Nares - Final Complete 08/06/19 04:45 Nasal Nares - Final Complete 08/06/19 04:45 Rectum VRE Culture - Final NO VANCOMYCIN RESISTANT ENTEROCOCCUS ... Complete Current Medications Medications (Trade) Dose Ordered Sig/Kristine Route PRN Reason Start Time Stop Time Status Last Admin Dose Admin Acetaminophen (Tylenol) 500 mg Q6H PRN ORAL Mild Pain/Temp > 100.5 08/06/19 08:56 09/05/19 08:55 08/07/19 10:47 Clonidine HCl (Catapres TTS-1) 1 patch QWEEK TDERMAL 08/12/19 10:00 11/10/19 09:59 08/12/19 11:07 Docusate Sodium (Colace) 250 mg DAILY ORAL 08/06/19 09:00 09/05/19 08:59 08/14/19 08:21 Finasteride (Proscar) 5 mg DAILY ORAL 08/07/19 15:45 11/05/19 15:44 08/14/19 08:22 Furosemide (Lasix) 40 mg DAILY IV 08/12/19 02:25 09/11/19 02:24 08/14/19 08:23 Hydralazine HCl (Apresoline) 10 mg Q4H PRN IV BP over 160 systolic 08/06/19 12:30 11/04/19 12:29 08/14/19 01:40 Hydralazine HCl (Apresoline) 50 mg EVERY 8 HOURS ORAL 08/06/19 14:00 11/04/19 13:59 08/14/19 06:31 Iron Sucrose 100 mg/Sodium Chloride 55 ml @ 200 mls/hr BEDTIME IV 08/06/19 21:00 08/15/19 21:17 08/13/19 21:13 Lorazepam (Ativan 2mg/ml 1ml) 1 mg Q4H PRN IV For Anxiety or agitation 08/14/19 07:15 08/21/19 07:14 08/14/19 09:54 Morphine Sulfate (Morphine Sulfate) 0.5 mg Q4HR PRN IVP Severe Pain (Pain Scale 7-10) 08/07/19 15:45 08/14/19 15:44 08/13/19 12:16 Nifedipine (Procardia XL) 30 mg BID ORAL 08/06/19 18:00 09/05/19 17:59 08/14/19 08:22 Nitroglycerin (Nitro-Bid) 1 inch Q6HR@0600,1200,1800 TOPIC 08/12/19 07:00 09/11/19 06:59 08/14/19 06:31 Olanzapine (ZyPREXA) 2.5 mg DAILY ORAL 08/10/19 09:00 09/24/19 08:59 08/14/19 08:22 Olanzapine (ZyPREXA) 5 mg QHS ORAL 08/10/19 21:00 09/24/19 20:59 08/13/19 21:12 Pantoprazole (Protonix) 40 mg EVERY 12 HOURS IVP 08/06/19 09:00 09/05/19 08:59 08/14/19 08:23 Potassium Chloride (K-Dur) 20 meq BID ORAL 08/12/19 10:15 11/10/19 11:59 08/14/19 08:22 Sennosides (Senokot) 8.6 mg BEDTIME ORAL 08/06/19 21:00 09/05/19 20:59 08/13/19 21:12 Tamsulosin HCl (Flomax) 0.4 mg BEDTIME ORAL 08/06/19 21:00 09/05/19 20:59 08/13/19 21:12 Laboratory Tests 08/14/19 06:25: Sodium Level 146H, Potassium Level 3.7, Chloride Level 107, Carbon Dioxide Level 25, Anion Gap 14, Blood Urea Nitrogen 30H, Creatinine 2.1H, Estimat Glomerular Filtration Rate 30.2, Glucose Level 72L, Calcium Level 9.5, Total Bilirubin 0.6, Aspartate Amino Transf (AST/SGOT) 27, Alanine Aminotransferase ( ALT/SGPT) 21, Alkaline Phosphatase 95, Total Protein 5.5L, Albumin 2.5L, Globulin 3.0, Albumin/Globulin Ratio 0.8L Height (Feet): 5 Height (Inches): 6.00 Weight (Pounds): 160 Objective exam stable abdomen soft, doshi indwelling, urine denia/blood tinged Miki Calzada MD Aug 14, 2019 11:21
--- NOTE | 2019-08-14 11:57 | Pulmonology Progress Note ---
Assessment/Plan Assessment/Plan IMPRESSION: 1. Pleural effusions, small bilateral. 2. Atelectasis. 3. Pulmonary edema, questionable. 4. Hypertension. 5. Hyperlipidemia. DISCUSSION: Currently, the patient is saturating well on room air or low flow O2. I will follow as manager financial. no new recommendations Kimani Hahn M.D. Subjective Interval Events: None new Constitutional: Reports: no symptoms HEENT: Repors: no symptoms Respiratory: Reports: no symptoms Cardiovascular: Reports: no symptoms Gastrointestinal/Abdominal: Reports: no symptoms Allergies: Coded Allergies: No Known Allergies (Unverified , 06/05/19) Objective Last 24 Hour Vital Signs Date Time Temp Pulse Resp B/P (MAP) Pulse Ox O2 Delivery O2 Flow Rate FiO2 08/14/19 09:00 Nasal Cannula 2.0 08/14/19 08:22 65 178/64 08/14/19 08:00 66 08/14/19 07:59 97.9 65 20 178/64 (102) 96 08/14/19 07:00 96 Nasal Cannula 2.0 28 08/14/19 07:00 65 18 96 Nasal Cannula 2.0 28 08/14/19 06:31 160/62 08/14/19 06:31 160/62 08/14/19 04:00 97.0 78 22 160/62 (94) 100 08/14/19 04:00 68 08/14/19 01:40 188/62 08/14/19 00:00 97.5 70 19 188/62 (104) 97 08/14/19 00:00 62 08/13/19 21:12 186/64 08/13/19 21:00 Nasal Cannula 2.0 08/13/19 20:00 97.5 67 20 186/64 (104) 91 08/13/19 20:00 69 08/13/19 18:00 148/59 08/13/19 18:00 59 148/59 08/13/19 16:00 59 08/13/19 15:18 97.9 63 20 148/59 (88) 98 08/13/19 14:05 136/54 08/13/19 12:15 136/54 08/13/19 12:00 74 08/13/19 12:00 96.8 76 20 130/54 (79) 98 Intake and Output 08/13/19 08/14/19 19:00 07:00 Intake Total 170 ml 295 ml Output Total 500 ml 1200 ml Balance -330 ml -905 ml Intake Oral 170 ml 240 ml IV Total 55 ml Output Urine Total 500 ml 1200 ml General Appearance: no acute distress HEENT: normocephalic Respiratory/Chest: chest wall non-tender Cardiovascular: normal peripheral pulses Laboratory Tests 08/14/19 06:25: Sodium Level 146H, Potassium Level 3.7, Chloride Level 107, Carbon Dioxide Level 25, Anion Gap 14, Blood Urea Nitrogen 30H, Creatinine 2.1H, Estimat Glomerular Filtration Rate 30.2, Glucose Level 72L, Calcium Level 9.5, Total Bilirubin 0.6, Aspartate Amino Transf (AST/SGOT) 27, Alanine Aminotransferase ( ALT/SGPT) 21, Alkaline Phosphatase 95, Total Protein 5.5L, Albumin 2.5L, Globulin 3.0, Albumin/Globulin Ratio 0.8L Current Medications Medications (Trade) Dose Ordered Sig/Kristine Route PRN Reason Start Time Stop Time Status Last Admin Dose Admin Acetaminophen (Tylenol) 500 mg Q6H PRN ORAL Mild Pain/Temp > 100.5 08/06/19 08:56 09/05/19 08:55 08/07/19 10:47 Clonidine HCl (Catapres TTS-1) 1 patch QWEEK TDERMAL 08/12/19 10:00 11/10/19 09:59 08/12/19 11:07 Docusate Sodium (Colace) 250 mg DAILY ORAL 08/06/19 09:00 09/05/19 08:59 08/14/19 08:21 Finasteride (Proscar) 5 mg DAILY ORAL 08/07/19 15:45 11/05/19 15:44 08/14/19 08:22 Furosemide (Lasix) 40 mg DAILY IV 08/12/19 02:25 09/11/19 02:24 08/14/19 08:23 Hydralazine HCl (Apresoline) 10 mg Q4H PRN IV BP over 160 systolic 08/06/19 12:30 11/04/19 12:29 08/14/19 01:40 Hydralazine HCl (Apresoline) 50 mg EVERY 8 HOURS ORAL 08/06/19 14:00 11/04/19 13:59 08/14/19 06:31 Iron Sucrose 100 mg/Sodium Chloride 55 ml @ 200 mls/hr BEDTIME IV 08/06/19 21:00 08/15/19 21:17 08/13/19 21:13 Lorazepam (Ativan 2mg/ml 1ml) 1 mg Q4H PRN IV For Anxiety or agitation 08/14/19 07:15 08/21/19 07:14 08/14/19 09:54 Morphine Sulfate (Morphine Sulfate) 0.5 mg Q4HR PRN IVP Severe Pain (Pain Scale 7-10) 08/07/19 15:45 08/14/19 15:44 08/13/19 12:16 Nifedipine (Procardia XL) 30 mg BID ORAL 08/06/19 18:00 09/05/19 17:59 08/14/19 08:22 Nitroglycerin (Nitro-Bid) 1 inch Q6HR@0600,1200,1800 TOPIC 08/12/19 07:00 09/11/19 06:59 08/14/19 06:31 Olanzapine (ZyPREXA) 2.5 mg DAILY ORAL 08/10/19 09:00 09/24/19 08:59 08/14/19 08:22 Olanzapine (ZyPREXA) 5 mg QHS ORAL 08/10/19 21:00 09/24/19 20:59 08/13/19 21:12 Pantoprazole (Protonix) 40 mg EVERY 12 HOURS IVP 08/06/19 09:00 09/05/19 08:59 08/14/19 08:23 Potassium Chloride (K-Dur) 20 meq BID ORAL 08/12/19 10:15 11/10/19 11:59 08/14/19 08:22 Sennosides (Senokot) 8.6 mg BEDTIME ORAL 08/06/19 21:00 09/05/19 20:59 08/13/19 21:12 Tamsulosin HCl (Flomax) 0.4 mg BEDTIME ORAL 08/06/19 21:00 09/05/19 20:59 08/13/19 21:12 Kimani Hahn MD Aug 14, 2019 11:57
[2019-08-14 12:00] VITALS: BP 127/53
--- NOTE | 2019-08-14 12:35 | General Progress Note ---
Assessment/Plan Problem List: (1) CHF (congestive heart failure) ICD Codes: I50.9 - Heart failure, unspecified SNOMED: 34955227 (2) Renal failure (ARF), acute on chronic ICD Codes: N17.9 - Acute kidney failure, unspecified; N18.9 - Chronic kidney disease, unspecified SNOMED: 636222244 (3) Encephalopathy due to metabolic factor or toxin SNOMED: 682804621 (4) Gross hematuria ICD Codes: R31.0 - Gross hematuria SNOMED: 789871513 (5) Falls frequently ICD Codes: R29.6 - Repeated falls SNOMED: 367541419 (6) Dehydration ICD Codes: E86.0 - Dehydration SNOMED: 05855494 (7) UTI (urinary tract infection) ICD Codes: N39.0 - Urinary tract infection, site not specified SNOMED: 89851367 (8) Anemia ICD Codes: D64.9 - Anemia, unspecified SNOMED: 042908527 Status: stable, progressing, not improved Assessment/Plan: cont current rx monitor cxr resp rx and o2 abx diuresis monitor renal fxn and lytes bp rx anxiolytics doshi restraints for safety dc planning Subjective ROS Limited/Unobtainable: No Constitutional: Reports: malaise, weakness HEENT: Reports: no symptoms Cardiovascular: Reports: no symptoms Respiratory: Reports: cough, shortness of breath Gastrointestinal/Abdominal: Reports: poor appetite Genitourinary: Reports: no symptoms Neurologic/Psychiatric: Reports: anxiety, emotional problems, pre-existing deficit Endocrine: Reports: no symptoms Hematologic/Lymphatic: Reports: anemia Allergies: Coded Allergies: No Known Allergies (Unverified , 06/05/19) All Systems: reviewed and negative except above Subjective There were no overnight events. Patient's oxygen saturations are better. He is currently on 1 L nasal cannula. There are no reports of any congestion fevers or chills. He remains restrained because he tries to pull out his IV line and get out of bed. The patient remains confused and is frequently mumbling incomprehensible words. Objective Last 24 Hour Vital Signs Date Time Temp Pulse Resp B/P (MAP) Pulse Ox O2 Delivery O2 Flow Rate FiO2 08/14/19 12:00 97.3 65 20 127/53 (77) 08/14/19 09:00 Nasal Cannula 2.0 08/14/19 08:22 65 178/64 08/14/19 08:00 66 08/14/19 07:59 97.9 65 20 178/64 (102) 96 08/14/19 07:00 96 Nasal Cannula 2.0 28 08/14/19 07:00 65 18 96 Nasal Cannula 2.0 28 08/14/19 06:31 160/62 08/14/19 06:31 160/62 08/14/19 04:00 97.0 78 22 160/62 (94) 100 08/14/19 04:00 68 08/14/19 01:40 188/62 08/14/19 00:00 97.5 70 19 188/62 (104) 97 08/14/19 00:00 62 08/13/19 21:12 186/64 08/13/19 21:00 Nasal Cannula 2.0 08/13/19 20:00 97.5 67 20 186/64 (104) 91 08/13/19 20:00 69 08/13/19 18:00 148/59 08/13/19 18:00 59 148/59 08/13/19 16:00 59 08/13/19 15:18 97.9 63 20 148/59 (88) 98 08/13/19 14:05 136/54 Intake and Output 08/13/19 08/14/19 19:00 07:00 Intake Total 170 ml 295 ml Output Total 500 ml 1200 ml Balance -330 ml -905 ml Intake Oral 170 ml 240 ml IV Total 55 ml Output Urine Total 500 ml 1200 ml Laboratory Tests 08/14/19 06:25: Sodium Level 146H, Potassium Level 3.7, Chloride Level 107, Carbon Dioxide Level 25, Anion Gap 14, Blood Urea Nitrogen 30H, Creatinine 2.1H, Estimat Glomerular Filtration Rate 30.2, Glucose Level 72L, Calcium Level 9.5, Total Bilirubin 0.6, Aspartate Amino Transf (AST/SGOT) 27, Alanine Aminotransferase ( ALT/SGPT) 21, Alkaline Phosphatase 95, Total Protein 5.5L, Albumin 2.5L, Globulin 3.0, Albumin/Globulin Ratio 0.8L Height (Feet): 5 Height (Inches): 6.00 Weight (Pounds): 160 Objective General Appearance: WD/WN, alert, confused Neck: supple Cardiovascular: regular rhythm Respiratory/Chest: rhonchi - bilaterally Abdomen: normal bowel sounds, non tender, soft, no organomegaly, no mass Edema: no edema noted Arm (L), no edema noted Arm (R), no edema noted Leg (L), no edema noted Leg (R), no edema noted Pedal (L), no edema noted Pedal (R), no edema noted Generalized Neurologic: bin piler II-XII grossly normal, alert, responsive Iggy Echavarria MD Aug 14, 2019 12:35
[2019-08-14 16:00] VITALS: BP 151/58
[2019-08-14] MEDS ORDERED: D5W 275ml ONE (17:43)
[2019-08-14] MEDS ORDERED: Tubing IV Secondary IV ONE (17:43)
[2019-08-14] MEDS ORDERED: NS 275ml ONE (17:43)
--- NOTE | 2019-08-14 19:28 | NUR ---
NURSE NOTES: Received report from LUIS FERNANDO Brown. Patient is awake lying semi-hampton's; resting comfortably. No signs of acute distress noted; denies pain at this time. On 2L nasal cannula. AOx1; able to make needs known to a limited degree. Primarily Mongolian speaking. Checked IV site; patent and flushed. No erythema, bleeding, or infiltration noted. Trevino catheter draining well to gravity. Bed at lowest position, brakes on, siderails up x3. Call light within reach. Will continue to monitor.
[2019-08-14 20:00] VITALS: BP 150/63
[2019-08-14] MEDS: Sennosides 8.6mg tab ORAL SCH (22:51)
[2019-08-14] MEDS: Tamsulosin 0.4mg cap ORAL SCH (22:55)
--- NOTE | 2019-08-14 22:59 | Progress Note ---
DATE: 08/14/2019 CARDIOLOGY PROGRESS NOTE SUBJECTIVE: The patient remains on nasal oxygen. Confused and agitated at times. Blood pressure remains labile. Monitored rhythm junctional. No pauses. OBJECTIVE: VITAL SIGNS: Blood pressure 178/64, pulse 65, respirations 18 to 22. He is afebrile. LUNGS: Good breath sounds. No wheezing. HEART: Regular rhythm and rate. Normal S1, S2. A 1/6 systolic murmur at apex. ABDOMEN: Soft. EXTREMITIES: No edema. LABORATORY DATA: Sodium is 146, potassium 3.7, bicarb 25, BUN 30, and creatinine 2.1. Albumin 2.5. IMPRESSION: 1. Dehydration. 2. Hypernatremia. 3. Free water deficit. 4. Junctional rhythm. 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 6. No witnessed bradycardic episodes on cardiac monitoring for almost 5 days. 7. Pulmonary hypertension. 8. Degenerative valve disease. 9. Hypertension, labile. PLAN: 1. Free water replacement. 2. Continue titration of antihypertensives. 3. Discontinue clonidine due to potential for bradyarrhythmias. Gamaliel Salas M.D. DR: CATE JOB#: [id number] CC:
[2019-08-14] MEDS ORDERED: HydrALAZINE 50mg tab ORAL SCH (23:00)
--- NOTE | 2019-08-14 23:08 | NUR ---
NURSE NOTES: 2100 medications given at 2146.
[2019-08-15] VITALS: BP 154/61
[2019-08-15 04:00] VITALS: BP 148/73
--- NOTE | 2019-08-15 04:54 | NUR ---
NURSE NOTES: Patient is asleep lying semi-hampton's, resting comfortably. No signs of acute distress or pain noted at this time. Trevino catheter draining well to gravity.
[2019-08-15] MEDS: Nitroglycerin 2% oint pkt TOPIC SCH ×3 (06:29→17:44)
[2019-08-15] MEDS: HydrALAZINE 50mg tab ORAL SCH ×3 (06:29→22:00)
--- NOTE | 2019-08-15 07:33 | NUR ---
HAND-OFF: Report given to LUIS FERNANDO Brown. Patient is awake lying semi-hampton's; restless. In stable condition otherwise. Trevino catheter draining to gravity.
--- NOTE | 2019-08-15 07:52 | General Progress Note ---
Assessment/Plan Problem List: (1) CHF (congestive heart failure) ICD Codes: I50.9 - Heart failure, unspecified SNOMED: 40816341 (2) Renal failure (ARF), acute on chronic ICD Codes: N17.9 - Acute kidney failure, unspecified; N18.9 - Chronic kidney disease, unspecified SNOMED: 117043509 (3) Encephalopathy due to metabolic factor or toxin SNOMED: 550219043 (4) Gross hematuria ICD Codes: R31.0 - Gross hematuria SNOMED: 988397444 (5) Falls frequently ICD Codes: R29.6 - Repeated falls SNOMED: 164817422 (6) Dehydration ICD Codes: E86.0 - Dehydration SNOMED: 22156508 (7) UTI (urinary tract infection) ICD Codes: N39.0 - Urinary tract infection, site not specified SNOMED: 86123007 (8) Anemia ICD Codes: D64.9 - Anemia, unspecified SNOMED: 979606917 Status: stable, progressing, not improved Assessment/Plan: cont current rx monitor cxr resp rx and o2 abx monitor renal fxn and lytes bp rx anxiolytics doshi restraints for safety dc planning Subjective ROS Limited/Unobtainable: No Constitutional: Reports: malaise, weakness HEENT: Reports: no symptoms Cardiovascular: Reports: no symptoms Respiratory: Reports: shortness of breath Gastrointestinal/Abdominal: Reports: no symptoms Genitourinary: Reports: no symptoms Neurologic/Psychiatric: Reports: anxiety, emotional problems, pre-existing deficit Endocrine: Reports: no symptoms Hematologic/Lymphatic: Reports: no symptoms Allergies: Coded Allergies: No Known Allergies (Unverified , 06/05/19) All Systems: reviewed and negative except above Subjective There were no overnight events. Patient's oxygen saturations are better. He is currently on 1 L nasal cannula. There are no reports of any congestion fevers or chills. He remains restrained. The patient remains confused. Objective Last 24 Hour Vital Signs Date Time Temp Pulse Resp B/P (MAP) Pulse Ox O2 Delivery O2 Flow Rate FiO2 08/15/19 06:29 148/73 08/15/19 06:29 148/73 08/15/19 04:00 97.6 58 18 148/73 (98) 96 08/15/19 04:00 59 08/15/19 00:00 61 08/15/19 00:00 97.0 61 18 154/61 (92) 96 08/14/19 23:07 150/63 08/14/19 21:00 Nasal Cannula 1.0 08/14/19 20:00 96.6 66 16 150/63 (92) 98 08/14/19 20:00 70 08/14/19 18:19 151/58 08/14/19 18:19 69 151/58 08/14/19 16:00 69 08/14/19 16:00 98.1 66 20 151/58 (89) 96 08/14/19 14:00 127/53 08/14/19 12:00 97.3 65 20 127/53 (77) 08/14/19 12:00 127/53 08/14/19 12:00 64 08/14/19 09:00 Nasal Cannula 2.0 08/14/19 08:22 65 178/64 08/14/19 08:00 66 08/14/19 07:59 97.9 65 20 178/64 (102) 96 Intake and Output 08/14/19 08/15/19 19:00 07:00 Intake Total 300 ml 55 ml Output Total 750 ml 900 ml Balance -450 ml -845 ml Intake Oral 300 ml IV Total 55 ml Output Urine Total 750 ml 900 ml # Voids 2 Height (Feet): 5 Height (Inches): 6.00 Weight (Pounds): 160 Objective General Appearance: WD/WN, alert, confused Neck: supple Cardiovascular: regular rhythm Respiratory/Chest: rhonchi - bilaterally Abdomen: normal bowel sounds, non tender, soft, no organomegaly, no mass Edema: no edema noted Arm (L), no edema noted Arm (R), no edema noted Leg (L), no edema noted Leg (R), no edema noted Pedal (L), no edema noted Pedal (R), no edema noted Generalized Neurologic: chrome plater II-XII grossly normal, alert, responsive Iggy Echavarria MD Aug 15, 2019 07:52
[2019-08-15 08:00] VITALS: BP 184/69
--- NOTE | 2019-08-15 08:27 | Urology Progress Note ---
Assessment/Plan Status: stable, progressing, not improved Assessment/Plan: 1. Gross hematuria, presumably secondary to Doshi trauma. 2. BPH. 3. Urinary retention. 4. Neurogenic bladder. 5. Pyuria. 6. Proteinuria. 7. Renal insufficiency, which appears to be acute on chronic. 8. Rule out urethral stricture. monitor clinically maintain doshi, placed 08/06 hand irrigated and do PRN, no clots cont flomax and proscar s/p abx off anticoagulation, resume soon? restraints cysto at some point voiding trial later, once pt more clinically stable d/w Dr. Echavarria Subjective Allergies: Coded Allergies: No Known Allergies (Unverified , 06/05/19) Subjective all noted, confused Objective Last 24 Hour Vital Signs Date Time Temp Pulse Resp B/P (MAP) Pulse Ox O2 Delivery O2 Flow Rate FiO2 08/15/19 08:00 98.4 59 20 184/69 (107) 95 08/15/19 06:29 148/73 08/15/19 06:29 148/73 08/15/19 04:00 97.6 58 18 148/73 (98) 96 08/15/19 04:00 59 08/15/19 00:00 61 08/15/19 00:00 97.0 61 18 154/61 (92) 96 08/14/19 23:07 150/63 08/14/19 21:00 Nasal Cannula 1.0 08/14/19 20:00 96.6 66 16 150/63 (92) 98 08/14/19 20:00 70 08/14/19 18:19 151/58 08/14/19 18:19 69 151/58 08/14/19 16:00 69 08/14/19 16:00 98.1 66 20 151/58 (89) 96 08/14/19 14:00 127/53 08/14/19 12:00 97.3 65 20 127/53 (77) 08/14/19 12:00 127/53 08/14/19 12:00 64 08/14/19 09:00 Nasal Cannula 2.0 Intake and Output 08/14/19 08/15/19 19:00 07:00 Intake Total 300 ml 55 ml Output Total 750 ml 900 ml Balance -450 ml -845 ml Intake Oral 300 ml IV Total 55 ml Output Urine Total 750 ml 900 ml # Voids 2 Microbiology Date/Time Source Procedure Growth Status 08/06/19 04:45 Nasal Nares - Final Complete 08/06/19 04:45 Nasal Nares - Final Complete 08/06/19 04:45 Rectum VRE Culture - Final NO VANCOMYCIN RESISTANT ENTEROCOCCUS ... Complete Current Medications Medications (Trade) Dose Ordered Sig/Kristine Route PRN Reason Start Time Stop Time Status Last Admin Dose Admin Acetaminophen (Tylenol) 500 mg Q6H PRN ORAL Mild Pain/Temp > 100.5 08/06/19 08:56 09/05/19 08:55 08/07/19 10:47 Docusate Sodium (Colace) 250 mg DAILY ORAL 08/06/19 09:00 09/05/19 08:59 08/14/19 08:21 Finasteride (Proscar) 5 mg DAILY ORAL 08/07/19 15:45 11/05/19 15:44 08/14/19 08:22 Furosemide (Lasix) 40 mg DAILY IV 08/12/19 02:25 09/11/19 02:24 08/14/19 08:23 Hydralazine HCl (Apresoline) 10 mg Q4H PRN IV BP over 160 systolic 08/06/19 12:30 11/04/19 12:29 08/14/19 01:40 Hydralazine HCl (Apresoline) 75 mg EVERY 8 HOURS ORAL 08/15/19 06:00 11/13/19 05:59 08/15/19 06:29 Iron Sucrose 100 mg/Sodium Chloride 55 ml @ 200 mls/hr BEDTIME IV 08/06/19 21:00 08/15/19 21:17 08/14/19 22:50 Lorazepam (Ativan 2mg/ml 1ml) 1 mg Q4H PRN IV For Anxiety or agitation 08/14/19 07:15 08/21/19 07:14 08/14/19 09:54 Nifedipine (Procardia XL) 30 mg BID ORAL 08/06/19 18:00 09/05/19 17:59 08/14/19 18:19 Nitroglycerin (Nitro-Bid) 1 inch Q6HR@0600,1200,1800 TOPIC 08/12/19 07:00 09/11/19 06:59 08/15/19 06:29 Olanzapine (ZyPREXA) 2.5 mg DAILY ORAL 08/10/19 09:00 09/24/19 08:59 08/14/19 08:22 Olanzapine (ZyPREXA) 5 mg QHS ORAL 08/10/19 21:00 09/24/19 20:59 08/14/19 22:54 Pantoprazole (Protonix) 40 mg EVERY 12 HOURS IVP 08/06/19 09:00 09/05/19 08:59 08/14/19 22:52 Potassium Chloride (K-Dur) 20 meq BID ORAL 08/12/19 10:15 11/10/19 11:59 08/14/19 18:19 Sennosides (Senokot) 8.6 mg BEDTIME ORAL 08/06/19 21:00 09/05/19 20:59 08/14/19 22:51 Tamsulosin HCl (Flomax) 0.4 mg BEDTIME ORAL 08/06/19 21:00 09/05/19 20:59 08/14/19 22:55 Height (Feet): 5 Height (Inches): 6.00 Weight (Pounds): 160 Objective exam stable abdomen soft, doshi indwelling, urine denia/blood tinged Bamshad,Miki Perry MD Aug 15, 2019 08:26
[2019-08-15] MEDS: Docusate 250mg cap ORAL SCH (08:48)
[2019-08-15] MEDS: OLANZapine 2.5mg tab ORAL SCH (08:48)
[2019-08-15] MEDS: Pantoprazole Inj IVP SCH ×2 (08:48→21:58)
[2019-08-15 09:01] LABS: BASOPHILS % (AUTO) 0.8 % (0.0-2.0); EOSINOPHILS % (AUTO) 4.6 % (0.0-3.0); HEMATOCRIT 26.9 % (42.0-52.0); LYMPHOCYTES % (AUTO) 9.5 % (20.0-45.0); MEAN CORPUSCULAR VOLUME 88 FL (80-99); MONOCYTES % (AUTO) 11.7 % (1.0-10.0); NEUTROPHILS % (AUTO) 73.4 % (45.0-75.0); PLATELET COUNT 238 K/UL (150-450); RED BLOOD COUNT 3.05 M/UL (4.70-6.10); RED CELL DISTRIBUTION WIDTH 15.1 % (11.6-14.8); WHITE BLOOD COUNT 6.5 K/UL (4.8-10.8)
[2019-08-15 09:37] LABS: ALANINE AMINOTRANSFERASE 20 U/L (12-78); ALBUMIN 2.5 G/DL (3.4-5.0); ALBUMIN/GLOBULIN RATIO 0.8 (1.0-2.7); ALKALINE PHOSPHATASE 98 U/L (46-116); ANION GAP 11 mmol/L (5-15); ASPARTATE AMINO TRANSFERASE 27 U/L (15-37); BILIRUBIN,TOTAL 0.7 MG/DL (0.2-1.0); BLOOD UREA NITROGEN 27 mg/dL (7-18); CALCIUM 9.1 MG/DL (8.5-10.1); CARBON DIOXIDE 27 MMOL/L (21-32); CHLORIDE 106 MMOL/L (98-107); CREATININE 2.2 MG/DL (0.55-1.30); POTASSIUM 3.5 MMOL/L (3.5-5.1); SODIUM 144 MMOL/L (136-145)
--- NOTE | 2019-08-15 11:06 | Pulmonology Progress Note ---
Assessment/Plan Assessment/Plan IMPRESSION: 1. Pleural effusions, small bilateral. 2. Atelectasis. 3. Pulmonary edema, questionable. 4. Hypertension. 5. Hyperlipidemia. DISCUSSION: Currently, the patient is saturating well on room air or low flow O2. I will follow as validation software facilitator. no new recommendations Kimani Hahn M.D. Subjective Interval Events: None new Constitutional: Reports: no symptoms HEENT: Repors: no symptoms Respiratory: Reports: no symptoms Cardiovascular: Reports: no symptoms Allergies: Coded Allergies: No Known Allergies (Unverified , 06/05/19) Objective Last 24 Hour Vital Signs Date Time Temp Pulse Resp B/P (MAP) Pulse Ox O2 Delivery O2 Flow Rate FiO2 08/15/19 08:48 59 184/69 08/15/19 08:00 98.4 59 20 184/69 (107) 95 08/15/19 06:29 148/73 08/15/19 06:29 148/73 08/15/19 04:00 97.6 58 18 148/73 (98) 96 08/15/19 04:00 59 08/15/19 00:00 61 08/15/19 00:00 97.0 61 18 154/61 (92) 96 08/14/19 23:07 150/63 08/14/19 21:00 Nasal Cannula 1.0 08/14/19 20:00 96.6 66 16 150/63 (92) 98 08/14/19 20:00 70 08/14/19 18:19 151/58 08/14/19 18:19 69 151/58 08/14/19 16:00 69 08/14/19 16:00 98.1 66 20 151/58 (89) 96 08/14/19 14:00 127/53 08/14/19 12:00 97.3 65 20 127/53 (77) 08/14/19 12:00 127/53 08/14/19 12:00 64 Intake and Output 08/14/19 08/15/19 19:00 07:00 Intake Total 300 ml 55 ml Output Total 750 ml 900 ml Balance -450 ml -845 ml Intake Oral 300 ml IV Total 55 ml Output Urine Total 750 ml 900 ml # Voids 2 General Appearance: no acute distress HEENT: normocephalic Respiratory/Chest: chest wall non-tender, lungs clear Cardiovascular: normal peripheral pulses Abdomen: normal bowel sounds Laboratory Tests 08/15/19 08:30: White Blood Count 6.5, Red Blood Count 3.05L, Hemoglobin 9.0L, Hematocrit 26.9L , Mean Corpuscular Volume 88, Mean Corpuscular Hemoglobin 29.5, Mean Corpuscular Hemoglobin Concent 33.4, Red Cell Distribution Width 15.1H, Platelet Count 238, Mean Platelet Volume 5.4L, Neutrophils (%) (Auto) 73.4, Lymphocytes (%) (Auto) 9.5L, Monocytes (%) (Auto) 11.7H, Eosinophils (%) (Auto) 4.6H, Basophils (%) (Auto) 0.8, Sodium Level 144, Potassium Level 3.5, Chloride Level 106, Carbon Dioxide Level 27, Anion Gap 11, Blood Urea Nitrogen 27H, Creatinine 2.2H, Estimat Glomerular Filtration Rate 28.7, Glucose Level 107H, Calcium Level 9.1, Total Bilirubin 0.7, Aspartate Amino Transf (AST/SGOT) 27, Alanine Aminotransferase (ALT/SGPT) 20, Alkaline Phosphatase 98, Total Protein 5.5L, Albumin 2.5L, Globulin 3.0, Albumin/Globulin Ratio 0.8L Current Medications Medications (Trade) Dose Ordered Sig/Kristine Route PRN Reason Start Time Stop Time Status Last Admin Dose Admin Acetaminophen (Tylenol) 500 mg Q6H PRN ORAL Mild Pain/Temp > 100.5 08/06/19 08:56 09/05/19 08:55 08/07/19 10:47 Docusate Sodium (Colace) 250 mg DAILY ORAL 08/06/19 09:00 09/05/19 08:59 08/15/19 08:48 Finasteride (Proscar) 5 mg DAILY ORAL 08/07/19 15:45 11/05/19 15:44 08/15/19 08:47 Furosemide (Lasix) 40 mg DAILY IV 08/12/19 02:25 09/11/19 02:24 08/15/19 08:48 Hydralazine HCl (Apresoline) 10 mg Q4H PRN IV BP over 160 systolic 08/06/19 12:30 11/04/19 12:29 08/14/19 01:40 Hydralazine HCl (Apresoline) 75 mg EVERY 8 HOURS ORAL 08/15/19 06:00 11/13/19 05:59 08/15/19 06:29 Iron Sucrose 100 mg/Sodium Chloride 55 ml @ 200 mls/hr BEDTIME IV 08/06/19 21:00 08/15/19 21:17 08/14/19 22:50 Lorazepam (Ativan 2mg/ml 1ml) 1 mg Q4H PRN IV For Anxiety or agitation 08/14/19 07:15 08/21/19 07:14 08/14/19 09:54 Nifedipine (Procardia XL) 30 mg BID ORAL 08/06/19 18:00 09/05/19 17:59 08/15/19 08:48 Nitroglycerin (Nitro-Bid) 1 inch Q6HR@0600,1200,1800 TOPIC 08/12/19 07:00 09/11/19 06:59 08/15/19 06:29 Olanzapine (ZyPREXA) 2.5 mg DAILY ORAL 08/10/19 09:00 09/24/19 08:59 08/15/19 08:48 Olanzapine (ZyPREXA) 5 mg QHS ORAL 08/10/19 21:00 09/24/19 20:59 08/14/19 22:54 Pantoprazole (Protonix) 40 mg EVERY 12 HOURS IVP 08/06/19 09:00 09/05/19 08:59 08/15/19 08:48 Potassium Chloride (K-Dur) 20 meq BID ORAL 08/12/19 10:15 11/10/19 11:59 08/15/19 08:47 Sennosides (Senokot) 8.6 mg BEDTIME ORAL 08/06/19 21:00 09/05/19 20:59 08/14/19 22:51 Tamsulosin HCl (Flomax) 0.4 mg BEDTIME ORAL 08/06/19 21:00 09/05/19 20:59 08/14/19 22:55 Kimani Hahn MD Aug 15, 2019 11:05
--- NOTE | 2019-08-15 11:15 | NUR ---
*-*DISCHARGE PLANNING*-* PATIENT HAS BEEN REFERRED BACK TO: [facility] P: [phone] F: [phone] WATING FOR ACCEPTANCE
--- NOTE | 2019-08-15 11:23 | Nephrology Progress Note ---
Assessment/Plan Problem List: (1) Renal failure (ARF), acute on chronic Assessment: Serum creatinine started rising again (2) Falls frequently (3) UTI (urinary tract infection) Assessment: and hematuria (4) Anemia (5) Dehydration (6) Encephalopathy due to metabolic factor or toxin Assessment Frequent falls Acute renal failure with underlying dehydration Anemia, underlying etiology unclear UTI (urinary tract infection) Toxic metabolic encephalopathy Plan Serum creatinine rising as the patient receiving Lasix Speech therapy evaluation noted and discussed with speech therapist Correct electrolytes as needed Transfusion as needed Low IV hydration 2D echocardiogram ejection fraction 60% Kidney ultrasound pending results Monitor renal parameters Avoid nephrotoxics Antibiotics for UTI Continue per consultants Subjective ROS Limited/Unobtainable: No Objective Objective Last 24 Hour Vital Signs Date Time Temp Pulse Resp B/P (MAP) Pulse Ox O2 Delivery O2 Flow Rate FiO2 08/15/19 08:48 59 184/69 08/15/19 08:00 98.4 59 20 184/69 (107) 95 08/15/19 06:29 148/73 08/15/19 06:29 148/73 08/15/19 04:00 97.6 58 18 148/73 (98) 96 08/15/19 04:00 59 08/15/19 00:00 61 08/15/19 00:00 97.0 61 18 154/61 (92) 96 08/14/19 23:07 150/63 08/14/19 21:00 Nasal Cannula 1.0 08/14/19 20:00 96.6 66 16 150/63 (92) 98 08/14/19 20:00 70 08/14/19 18:19 151/58 08/14/19 18:19 69 151/58 08/14/19 16:00 69 08/14/19 16:00 98.1 66 20 151/58 (89) 96 08/14/19 14:00 127/53 08/14/19 12:00 97.3 65 20 127/53 (77) 08/14/19 12:00 127/53 08/14/19 12:00 64 Intake and Output 08/14/19 08/15/19 19:00 07:00 Intake Total 300 ml 55 ml Output Total 750 ml 900 ml Balance -450 ml -845 ml Intake Oral 300 ml IV Total 55 ml Output Urine Total 750 ml 900 ml # Voids 2 Laboratory Tests 08/15/19 08:30: White Blood Count 6.5, Red Blood Count 3.05L, Hemoglobin 9.0L, Hematocrit 26.9L , Mean Corpuscular Volume 88, Mean Corpuscular Hemoglobin 29.5, Mean Corpuscular Hemoglobin Concent 33.4, Red Cell Distribution Width 15.1H, Platelet Count 238, Mean Platelet Volume 5.4L, Neutrophils (%) (Auto) 73.4, Lymphocytes (%) (Auto) 9.5L, Monocytes (%) (Auto) 11.7H, Eosinophils (%) (Auto) 4.6H, Basophils (%) (Auto) 0.8, Sodium Level 144, Potassium Level 3.5, Chloride Level 106, Carbon Dioxide Level 27, Anion Gap 11, Blood Urea Nitrogen 27H, Creatinine 2.2H, Estimat Glomerular Filtration Rate 28.7, Glucose Level 107H, Calcium Level 9.1, Total Bilirubin 0.7, Aspartate Amino Transf (AST/SGOT) 27, Alanine Aminotransferase (ALT/SGPT) 20, Alkaline Phosphatase 98, Total Protein 5.5L, Albumin 2.5L, Globulin 3.0, Albumin/Globulin Ratio 0.8L Height (Feet): 5 Height (Inches): 6.00 Weight (Pounds): 160 General Appearance: no apparent distress, confused Cardiovascular: bradycardia Respiratory/Chest: decreased breath sounds Abdomen: soft Objective No change Juan Jade MD Aug 15, 2019 11:23
[2019-08-15 12:00] VITALS: BP 148/81
--- NOTE | 2019-08-15 13:26 | NUR ---
WEEKLY SWALLOW/SPEECH SUMMARY: PATIENT SEEN FOR DYSPHAGIA, SEE SWALLOW EVAL AND MODIFIED BARIUM SWALLOW STUDY (MBSS) REPORTS. PATIENT ALERT BUT CONFUSED. TALKING WHEN ALONE AND WITH CAREER DEVELOPMENT MANAGER PRESENT. REPEATING AGUA IN [facility]HARIC FOR WATER AND SAYING "JEVON". GIVEN NECTAR THICK LIQUIDS (NTL) VIA TSP, SWALLOWS W/IN 2 SECONDS AND SWALLOWS W/O OVERT ASPIRATION. WHEN GIVEN SIP VIA CUP OF NTL, THE PATIENT TOOK 2 SECONDS TO SWALLOW AND COUGHED AFTER THE SWALLOW. WILL CHANGE HIM TO TSP ONLY FOR NOW. PATIENT CONSISTENTLY CUED NOT TO TALK AND HE FOLLOWED DIRECTIONS MOST OF THE TIME. EDUCATED/TRAINED RN (BOBBY IN POSTED PRECAUTIONS) PLAN: CONTINUE WITH PLAN OF CARE IN MBSS REPORT CONTINUE WITH LIQUIFIED PUREED LIKE NECTAR THICK SOUP CONSISTENCY TSP ONLY AND POSTED ASPIRATION PRECAUTIONS.
--- NOTE | 2019-08-15 13:42 | NUR ---
DISCHARGE PLANNING UPDATE PATIENT UNABLE TO RETURN TO [facility] ASSISTED LIVING DR TRISTAN OCONNOR PATIENT REFERRED TO SNF SIDE OF [facility] THIS TELEPHOTO ENGINEER SPOKE WITH TRISTA AT [facility] ~ SNF AND PER TRISTA THEY DO NOT HAVE ANY BEDS AVAILABLE
--- NOTE | 2019-08-15 14:00 | NUR ---
CASE MANAGEMENT:REVIEW 08/15/19 SI: AC/CHR RENAL FAILURE. UTI. DEHYDRATION JUNCTIONAL HEART RHYTHM 98.4 59 20 184/69 95% ON 1L/NC IS: HYDRALAZINE PO Q8 K-DUR PO BID NITRO BID 1" Q6HRS IV LASIX QD ZYPREXA PO QHS IV LASIX QD IV VENOFER QHS FLOMAX PO QHS PROCARDIA XL PO BID IV PROTONIX Q12 : TELEMETRY STATUS DCP: FROM [facility] INSURANCE DENIAL [facility] IS DENYING THIS ENTIRE STAY DR HUDSON SPOKE WITH [facility]ANDELIER MAKER, DR CHAN T: [phone] FOR A PEER TO PEER PER DR HUDSON, [facility] STILL DENIED THIS HOSPITAL STAY WE WILL CONTINUE TO FAX CLINCALS DAILY AND PROVIDE SAFE AND APPROPRIATE CARE FOR THIS PATIENT CASE REF #[id number] PLAN: PATIENT IS FROM [facility] BUT CANNOT RETURN AT THIS TIME PATIENT REQUIRES SNF PLACEMENT. WILL NEED [facility] APPROVAL FOR SNF PLACEMENT. LEFT M FOR NCM JOSE ALEJANDRO T: [phone] MAINTAIN HEART CATH FOR URINARY RETENTION
[2019-08-15] MEDS: LORazepam Inj 2mg/ml 1ml IV PRN (14:06)
--- NOTE | 2019-08-15 14:16 | NUR ---
*-*INSURANCE*-* UPDATED CLINICALS AND REVIEWS HAVE BEEN FAXED TO: [facility] F: [phone] REF# [id number]
--- NOTE | 2019-08-15 14:20 | NUR ---
*-*DISCHARGE PLANNING*-* SPOKE WITH TRISTA AT [facility] ~ SNF AND PER TRISTA THEY DO NOT HAVE ANY BEDS AVAILABLE Addendum: 08/15/19 at 1425 by ELIDA BERG *-*DISCHARGE PLANNING*-* PATIENT HAS BEEN RE[facility]ED [facility]: [facility] P: [phone] F: [phone] WAITING FOR ACCEPTANCE
[2019-08-15 16:00] VITALS: BP 157/71
[2019-08-15 20:00] VITALS: BP 158/55
[2019-08-15] MEDS: Tamsulosin 0.4mg cap ORAL SCH (22:00)
[2019-08-15] MEDS: Sennosides 8.6mg tab ORAL SCH (22:01)
--- NOTE | 2019-08-15 23:12 | NUR ---
NURSE NOTES: Received patient in bed, transfer from telemetry floor, patient is transported via bed, no acute distress noted or reported, patient has bilateral wrist restraints on, IV site is clean dry, intact. Patient has a Trevino catheter 16 fr draining bright red colored urine, MD is aware. Patient is alert x1, confused and disoriented, call light is within reach, bed lowered, locked, alarm is on, belongings list verified. Will continue to monitor for comfort and safety.
--- NOTE | 2019-08-15 23:12 | NUR ---
NURSE NOTES: [facility] 210[facility] ([facility] PATIENT WAS TRANSFERRED VIA BED SAFELY. NO ACUTE DISTRESS, WITH BILATERAL SOFT RESTRAINTS. F/C IN PLACE DRAINING RED TINGED URINE, WILLARD AWARE PER ENDORSEMENT TO ME FROM KHANH ROSALES. I ENDORSED TO ADOLFO GOULD THERE IS AN ORDER FOR REMOVAL AT [address] LAMAR. ENDORSED THE REPORT AND PLAN OF CARE TO ADOLFO GOULD.
--- NOTE | 2019-08-15 23:20 | NUR ---
ALL ORDERS HAVE BEEN TRANSFERRED TO MED/SURG STATUS.
--- NOTE | 2019-08-15 23:29 | Progress Note ---
DATE: 08/15/2019 SUBJECTIVE: The patient is in bed. No behavior issues noted. The patient is responding to internal stimuli. No combative behaviors. He is having a prolonged conversation with his sister in Greenlandic. The patient is confused and disoriented. MENTAL STATUS EXAMINATION: The patient is alert, awake, and disoriented. Mood is neutral. Affect is flat. Thought process, there is a paucity of thought content. Thought content, no suicidal or homicidal ideation. Cognition is impaired. Insight and judgment is impaired. ASSESSMENT: 1. Dementia. 2. Psychotic disorder. PLAN: 1. We will DC the Zyprexa. 2. Start the patient on risperidone. 3. Continue to follow and readjust the medications. Loco Luu M.D. DR: MELLISA JOB#: [id number] CC: JAISON
[2019-08-16] VITALS: BP 144/50
[2019-08-16] MEDS ORDERED: LORazepam Inj 2mg/ml 1ml IV PRN (03:15)
--- NOTE | 2019-08-16 03:15 | Progress Note ---
DATE: 08/15/2019 CARDIOLOGY PROGRESS NOTE SUBJECTIVE: The patient remains confused with agitation at times. Oxygen requirements are decreasing. He has required restraints for safety due to fall risk. Monitored rhythm remains with junctional rhythm. No pauses or bradycardic episodes. OBJECTIVE: VITAL SIGNS: Blood pressure 148/73, pulse 58, respirations 18, and afebrile. LUNGS: Bilateral breath sounds. No wheezing. HEART: Regular rhythm and rate. Normal S1, S2. There is 1/6 systolic apical murmur. ABDOMEN: Soft. EXTREMITIES: No edema. LABORATORY DATA: White count is 6, hemoglobin 9. Sodium 144, potassium 3.5, bicarb 27, BUN 27, creatinine 2.2. Albumin 2.5. 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 3. Acute on chronic diastolic congestive heart failure. 4. Acute renal failure with dehydration and hypernatremia, improved. 5. Anemia of chronic kidney disease. 6. Recurring falls, multifactorial. 7. No signs of advanced conduction system disease and bradyarrhythmia at this time. PLAN: 1. Maintain adequate free water intake. 2. Titrate antihypertensives. 3. Maintenance dose diuretic therapy at this time. 4. Consider decreasing regimen. Gamaliel Salas M.D. DR: BENITA JOB#: [id number] CC:
[2019-08-16 04:00] VITALS: BP 160/56
[2019-08-16] MEDS: Nitroglycerin 2% oint pkt TOPIC SCH ×3 (05:56→18:15)
[2019-08-16] MEDS: HydrALAZINE 50mg tab ORAL SCH ×3 (05:56→21:22)
--- NOTE | 2019-08-16 07:16 | NUR ---
HAND-OFF: Report given to Jake GOULD.Endorsed that Trevino catether was removed per MD order.
--- NOTE | 2019-08-16 07:17 | NUR ---
NURSE NOTES: Report received from Marcy GOULD. Patient is currently asleep laying supine in bed. Endorsed that patient is confused at baseline and alert and oriented x 1. Patient noted to have bilateral soft wrist restraints due to patient pulling at lines and being combative. No edema noted in hands bilaterally. Pulses present bilaterally. No order renewal needed at this time. Endorsed that doshi catheter was removed earlier this morning per MD orders. Will check for patient to void. 22 baldomero IV noted in right forearm. Patient noted to be a high fall risk due to confusion, unsteady gait, and history of falls. animal assistant made aware. Bed locked, in lowest position, and alarmed, will continue to follow plan of care.
[2019-08-16 08:00] VITALS: BP 174/54
--- NOTE | 2019-08-16 08:24 | NUR ---
NURSE NOTES: Preformed bladder scan per orders of Doctor Elsi. Patient noted to be incontinent or urine. Urine appears to be a light pink yellow color. Bladder scan showed 0 cc.
[2019-08-16] MEDS: Pantoprazole Inj IVP SCH ×2 (08:30→20:32)
[2019-08-16] MEDS: Docusate 250mg cap ORAL SCH (08:32)
--- NOTE | 2019-08-16 09:51 | NUR ---
*-*DISCHARGE PLANNING*-* PATIENT HAS BEEN REFERRED TO [facility] P: [phone]. SPOKE WITH [facility] WHO STATED , THEY ARE NOT ABLE TO ACCEPT PATIENT UPON DISCHARGE.
--- NOTE | 2019-08-16 09:53 | NUR ---
*-*DISCHARGE PLANNING*-* PAT[facility] P: [phone] F: [phone] & [facility] P: [phone] F: [phone] CLINICALS FAXED--[facility] FOR ACCEPTANCE
--- NOTE | 2019-08-16 10:17 | NUR ---
P.T Note: P.T evaluation completed and treatment initiated. Please refer to P.T evaluation for full report. Pt received in supine. Alert, O x to self and place, confused however follows simple one step commands thru verbal and external cues. No c/o pain nor indication of discomfort. Pt is significantly weak and deconditioned. Pt currently require MAX A X 1 to turn/roll and complete supine to/from sitting. Pt was able to sit at the EOB with BUE holding onto the bed rails with marked trunk deviation towards the L side. Pt was able to initiate sit to/from standing however not able to fully stand despite MAX A x 1 due to weakness. Pt will benefit from skilled P.T services to improve his strength, balance and activity tolerance to increases his mobility independence and safety towards return to PLOF. Recommend SNF for further rehab intervention. Thank you for this referral.
--- NOTE | 2019-08-16 10:38 | NUR ---
*-*DISCHARGE PLANNING*-* SPOKE WITH KARL FROM [facility], WHO STATED THEY CANNOT ACCEPT PATIENT. FACILITY NOT CONTRACTED WITH [facility]. CASE MANGER NOTIFIED.
--- NOTE | 2019-08-16 10:47 | Pulmonology Progress Note ---
Assessment/Plan Assessment/Plan IMPRESSION: 1. Pleural effusions, small bilateral. 2. Atelectasis. 3. Pulmonary edema, questionable. 4. Hypertension. 5. Hyperlipidemia. DISCUSSION: Currently, the patient is saturating well on room air or low flow O2. I will follow as ware carrier. no new recommendations Kimani Hahn M.D. Subjective Interval Events: None new Constitutional: Reports: no symptoms HEENT: Repors: no symptoms Respiratory: Reports: no symptoms Cardiovascular: Reports: no symptoms Gastrointestinal/Abdominal: Reports: no symptoms Allergies: Coded Allergies: No Known Allergies (Unverified , 06/05/19) Objective Last 24 Hour Vital Signs Date Time Temp Pulse Resp B/P (MAP) Pulse Ox O2 Delivery O2 Flow Rate FiO2 08/16/19 09:00 Nasal Cannula 2.0 08/16/19 08:31 53 179/55 08/16/19 08:00 97.8 53 18 174/54 (94) 99 08/16/19 05:56 160/75 08/16/19 05:56 160/75 08/16/19 04:00 97.9 57 22 160/56 (90) 95 08/16/19 00:00 97.7 59 24 144/50 (81) 96 08/15/19 22:00 158/55 08/15/19 21:00 Nasal Cannula 2.0 08/15/19 20:00 98.0 61 20 158/55 (89) 96 08/15/19 17:44 184/69 08/15/19 17:44 59 164/69 08/15/19 16:00 98.4 68 20 157/71 (99) 96 08/15/19 14:05 184/69 08/15/19 12:00 184/69 08/15/19 12:00 97.6 65 18 148/81 (103) 97 Intake and Output 08/15/19 08/16/19 19:00 07:00 Intake Total 240 ml Output Total 800 ml Balance -560 ml Intake Oral 240 ml Output Urine Total 800 ml # Voids 1 General Appearance: no acute distress HEENT: normocephalic Respiratory/Chest: chest wall non-tender, lungs clear Cardiovascular: normal peripheral pulses Abdomen: normal bowel sounds Current Medications Medications (Trade) Dose Ordered Sig/Kristine Route PRN Reason Start Time Stop Time Status Last Admin Dose Admin Acetaminophen (Tylenol) 500 mg Q6H PRN ORAL Mild Pain/Temp > 100.5 08/16/19 03:00 09/05/19 08:55 Docusate Sodium (Colace) 250 mg DAILY ORAL 08/16/19 09:00 09/05/19 08:59 08/16/19 08:32 Finasteride (Proscar) 5 mg DAILY ORAL 08/16/19 09:00 11/05/19 15:44 08/16/19 08:31 Furosemide (Lasix) 20 mg DAILY ORAL 08/16/19 09:00 09/15/19 08:59 08/16/19 08:30 Hydralazine HCl (Apresoline) 75 mg EVERY 8 HOURS ORAL 08/16/19 06:00 11/13/19 05:59 08/16/19 05:56 Lorazepam (Ativan 2mg/ml 1ml) 1 mg Q4H PRN IV For Anxiety or agitation 08/16/19 03:15 08/21/19 07:14 Nifedipine (Procardia XL) 30 mg BID ORAL 08/16/19 09:00 09/05/19 17:59 08/16/19 08:31 Nitroglycerin (Nitro-Bid) 1 inch Q6HR@0600,1200,1800 TOPIC 08/16/19 06:00 09/11/19 06:59 08/16/19 05:56 Pantoprazole (Protonix) 40 mg EVERY 12 HOURS IVP 08/16/19 09:00 09/05/19 08:59 08/16/19 08:30 Potassium Chloride (K-Dur) 20 meq DAILY ORAL 08/16/19 09:00 11/14/19 08:59 08/16/19 08:32 Risperidone (RisperDAL) 2 mg BEDTIME ORAL 08/16/19 21:00 09/29/19 20:59 Sennosides (Senokot) 8.6 mg BEDTIME ORAL 08/16/19 21:00 09/05/19 20:59 Tamsulosin HCl (Flomax) 0.4 mg BEDTIME ORAL 08/16/19 21:00 09/05/19 20:59 Kimani Hahn MD Aug 16, 2019 10:47
--- NOTE | 2019-08-16 11:08 | Nephrology Progress Note ---
Assessment/Plan Problem List: (1) Renal failure (ARF), acute on chronic Assessment: Serum creatinine started rising again (2) Falls frequently (3) UTI (urinary tract infection) Assessment: and hematuria (4) Anemia (5) Dehydration (6) Encephalopathy due to metabolic factor or toxin Assessment Frequent falls Acute renal failure with underlying dehydration Anemia, underlying etiology unclear UTI (urinary tract infection) Toxic metabolic encephalopathy Plan No lab drawn today Speech therapy evaluation noted and discussed with speech therapist Correct electrolytes as needed Transfusion as needed Low IV hydration 2D echocardiogram ejection fraction 60% Kidney ultrasound pending results Monitor renal parameters Avoid nephrotoxics Antibiotics for UTI Continue per consultants Subjective ROS Limited/Unobtainable: No Constitutional: Reports: malaise Objective Objective Last 24 Hour Vital Signs Date Time Temp Pulse Resp B/P (MAP) Pulse Ox O2 Delivery O2 Flow Rate FiO2 08/16/19 09:00 Nasal Cannula 2.0 08/16/19 08:31 53 179/55 08/16/19 08:00 97.8 53 18 174/54 (94) 99 08/16/19 05:56 160/75 08/16/19 05:56 160/75 08/16/19 04:00 97.9 57 22 160/56 (90) 95 08/16/19 00:00 97.7 59 24 144/50 (81) 96 08/15/19 22:00 158/55 08/15/19 21:00 Nasal Cannula 2.0 08/15/19 20:00 98.0 61 20 158/55 (89) 96 08/15/19 17:44 184/69 08/15/19 17:44 59 164/69 08/15/19 16:00 98.4 68 20 157/71 (99) 96 08/15/19 14:05 184/69 08/15/19 12:00 184/69 08/15/19 12:00 97.6 65 18 148/81 (103) 97 Intake and Output 08/15/19 08/16/19 19:00 07:00 Intake Total 240 ml Output Total 800 ml Balance -560 ml Intake Oral 240 ml Output Urine Total 800 ml # Voids 1 No labs drawn today Height (Feet): 5 Height (Inches): 6.00 Weight (Pounds): 160 General Appearance: no apparent distress, confused Cardiovascular: bradycardia Respiratory/Chest: decreased breath sounds Abdomen: soft Objective No change Fouladian,Juan MD Aug 16, 2019 11:08
--- NOTE | 2019-08-16 11:51 | NUR ---
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 CURRENT DIET: Liquify puree NTL Regular PO DIET RECOMMENDATIONS: Maintain Regular diet, texture per WE[employer] PUBLISHER ADDITIONAL RECOMMENDATIONS: 1) Add Ensure TID w/ meals 2) Maintain calibrated bed scale wts EMR wt: 160# vs Bed scale wt: 147#-> bed now reads 109.8# 3) Monitor hydration status, rec D5 w/ variable intake and to prevent hypoglycemia 4) Wound care: Add ALEJANDRA BID as tolerated + Vit C 250mg daily
[2019-08-16 12:00] VITALS: BP 128/50
--- NOTE | 2019-08-16 13:01 | Urology Progress Note ---
Assessment/Plan Status: stable, progressing, not improved Assessment/Plan: 1. Gross hematuria, presumably secondary to Doshi trauma. 2. BPH. 3. Urinary retention. 4. Neurogenic bladder. 5. Pyuria. 6. Proteinuria. 7. Renal insufficiency, which appears to be acute on chronic. 8. Rule out urethral stricture. monitor clinically doshi removed cont flomax and proscar s/p abx off anticoagulation, resume soon? restraints cysto at some point monitor PVR and reinsert doshi PRN d/w Dr. Echavarria Subjective Allergies: Coded Allergies: No Known Allergies (Unverified , 06/05/19) Subjective all noted, confused, doshi removed AM, voided a bit Objective Last 24 Hour Vital Signs Date Time Temp Pulse Resp B/P (MAP) Pulse Ox O2 Delivery O2 Flow Rate FiO2 08/16/19 12:00 98.0 63 18 128/50 (76) 96 08/16/19 11:45 179/55 08/16/19 09:00 Nasal Cannula 2.0 08/16/19 08:31 53 179/55 08/16/19 08:00 97.8 53 18 174/54 (94) 99 08/16/19 05:56 160/75 08/16/19 05:56 160/75 08/16/19 04:00 97.9 57 22 160/56 (90) 95 08/16/19 00:00 97.7 59 24 144/50 (81) 96 08/15/19 22:00 158/55 08/15/19 21:00 Nasal Cannula 2.0 08/15/19 20:00 98.0 61 20 158/55 (89) 96 08/15/19 17:44 184/69 08/15/19 17:44 59 164/69 08/15/19 16:00 98.4 68 20 157/71 (99) 96 08/15/19 14:05 184/69 Intake and Output 08/15/19 08/16/19 19:00 07:00 Intake Total 240 ml Output Total 800 ml Balance -560 ml Intake Oral 240 ml Output Urine Total 800 ml # Voids 1 Microbiology Date/Time Source Procedure Growth Status 08/06/19 04:45 Nasal Nares - Final Complete 08/06/19 04:45 Nasal Nares - Final Complete 08/06/19 04:45 Rectum VRE Culture - Final NO VANCOMYCIN RESISTANT ENTEROCOCCUS ... Complete Current Medications Medications (Trade) Dose Ordered Sig/Kristine Route PRN Reason Start Time Stop Time Status Last Admin Dose Admin Acetaminophen (Tylenol) 500 mg Q6H PRN ORAL Mild Pain/Temp > 100.5 08/16/19 03:00 09/05/19 08:55 Docusate Sodium (Colace) 250 mg DAILY ORAL 08/16/19 09:00 09/05/19 08:59 08/16/19 08:32 Finasteride (Proscar) 5 mg DAILY ORAL 08/16/19 09:00 11/05/19 15:44 08/16/19 08:31 Furosemide (Lasix) 20 mg DAILY ORAL 08/16/19 09:00 09/15/19 08:59 08/16/19 08:30 Hydralazine HCl (Apresoline) 75 mg EVERY 8 HOURS ORAL 08/16/19 06:00 11/13/19 05:59 08/16/19 05:56 Lorazepam (Ativan 2mg/ml 1ml) 1 mg Q4H PRN IV For Anxiety or agitation 08/16/19 03:15 08/21/19 07:14 Nifedipine (Procardia XL) 30 mg BID ORAL 08/16/19 09:00 09/05/19 17:59 08/16/19 08:31 Nitroglycerin (Nitro-Bid) 1 inch Q6HR@0600,1200,1800 TOPIC 08/16/19 06:00 09/11/19 06:59 08/16/19 11:45 Pantoprazole (Protonix) 40 mg EVERY 12 HOURS IVP 08/16/19 09:00 09/05/19 08:59 08/16/19 08:30 Potassium Chloride (K-Dur) 20 meq DAILY ORAL 08/16/19 09:00 11/14/19 08:59 08/16/19 08:32 Risperidone (RisperDAL) 2 mg BEDTIME ORAL 08/16/19 21:00 09/29/19 20:59 Sennosides (Senokot) 8.6 mg BEDTIME ORAL 08/16/19 21:00 09/05/19 20:59 Tamsulosin HCl (Flomax) 0.4 mg BEDTIME ORAL 08/16/19 21:00 09/05/19 20:59 Height (Feet): 5 Height (Inches): 6.00 Weight (Pounds): 160 Objective exam stable abdomen soft, doshi indwelling, urine denia/blood tinged Miki Calzada MD Aug 16, 2019 13:01
--- NOTE | 2019-08-16 13:12 | NUR ---
*-*DISCHARGE PLANNING*-* SPOKE WITH JULIA FROM [facility] P: [phone], WHO STATED THEY HAVE NO MALE BEDS AVAILABLE AT THIS TIME. AEROPHYSICS ENGINEER AWARE AND DISCHARGE PLAN IF TO FOLLOW PATIENT UPON DISCHARGE.
--- NOTE | 2019-08-16 13:31 | NUR ---
SWALLOW STATUS: PATIENT IS ALERT BUT CONFUSED. HE IS TALKING CONTINUOUSLY IN [place] MORE THAN [place] EVEN WITH FOOD/LIQUID IN HIS MOUTH WHICH CAUSES HIM TO HAVE A HIGHER RISK FOR ASPIRATION. GIVEN TSP NECTAR THICK LIQUIDS, TOLERATES W/O OVERT ASPIRATION WHEN IT IS ON THE THICKER SIDE. WHEN GIVEN GLUCERNA (NECTAR THICK BUT SLIGHTLY THINNER), THE PATIENT WILL COUGH AFTER THE SWALLOW. HIS OROPHARYNGEAL TRANSIT TIMES VARY FROM 2 TO 5 SECONDS SO HIS UZMA'S APPLE NEEDS TO BE PALPATED TO KNOW WHEN HE SWALLOWS. HE IS RESPONSIVE TO CUES TO SWALLOW IN [place] AND ALSO NEEDS CUES TO OPEN HIS MOUTH. GOALS NOT MET FOR INTAKE SINCE IT IS HIGHLY VARIABLE (AND CONSISTENTLY VERY SLOW) REFUSED TO 25/50/90% EDUCATED/TRAINED ELECTRICAL INSTRUMENT TECHNICIAN BEN IN POSTED ASPIRATION PRECAUTIONS AND SWALLOWING STRATEGIES. PLAN DOWNGRADE HIS DIET TO LIQUIFIED PUREED LIKE HONEY THICK SOUP AND GIVE ONLY HONEY THICK LIQUIDS FOR NOW TSP AT A TIME USING POSTED PRECAUTIONS AND ONE TO ONE FEEDING. PUSH GLUCERNA HIGH CALORIE SUPPLEMENTS IF POOR INTAKE OF MEALS CONTINUE WITH PLAN OF CARE IN MOD BARIUM SWALLOW STUDY REPORT
--- NOTE | 2019-08-16 14:04 | NUR ---
*-*INSURANCE*-* UPDATED CLINICALS AND REVIEWS HAVE BEEN FAXED TO: [facility] F: [phone] REF# [id number]
--- NOTE | 2019-08-16 14:05 | NUR ---
*-*INSURANCE*-* DISCHARGE SUMMARY CLINICALS AND REVIEWS HAVE BEEN FAXED TO: [facility] F: [phone] REF# [id number] Addendum: 08/16/19 at 1406 by CHERYL FITZGERALD CM NO DISCHARGE SUMMARY IN THE SYSTEM TO FAX
--- NOTE | 2019-08-16 15:04 | NUR ---
*-*DISCHARGE PLANNING*-* PATIENT IS FROM [facility] BUT UNABLE TO RETURN D/T NO LONGER BEING INDEPENDENT. PATIENT REFERRED TO [facility] SN[facility]~ SPOKE WITH [facility], NO BED AVAILABLE. PATIENT REFERRED TO [facility]~ SPOKE WITH [facility], THEY ARE UNABLE TO ACCEPT. PATIENT REFERRED TO [facility]~ SPOKE WITH JULIA, NO BEDS AVAILABLE. PATIENT REFERRED TO [facility]~ SPOKE WITH ED, NO BEDS AVAILABLE MANAGER NURSING LIV UPDATED OF THE ABOVE
--- NOTE | 2019-08-16 15:13 | General Progress Note ---
Assessment/Plan Problem List: (1) CHF (congestive heart failure) ICD Codes: I50.9 - Heart failure, unspecified SNOMED: 62425212 (2) Renal failure (ARF), acute on chronic ICD Codes: N17.9 - Acute kidney failure, unspecified; N18.9 - Chronic kidney disease, unspecified SNOMED: 080550744 (3) Encephalopathy due to metabolic factor or toxin SNOMED: 536533371 (4) Gross hematuria ICD Codes: R31.0 - Gross hematuria SNOMED: 638597187 (5) Falls frequently ICD Codes: R29.6 - Repeated falls SNOMED: 999855993 (6) Dehydration ICD Codes: E86.0 - Dehydration SNOMED: 05561634 (7) UTI (urinary tract infection) ICD Codes: N39.0 - Urinary tract infection, site not specified SNOMED: 06549657 (8) Anemia ICD Codes: D64.9 - Anemia, unspecified SNOMED: 563686008 Status: stable, progressing, not improved Assessment/Plan: cont current rx monitor cxr resp rx and o2 abx monitor renal fxn and lytes repeat labs tomorrow bp rx anxiolytics doshi restraints for safety dc planning Subjective ROS Limited/Unobtainable: Yes Constitutional: Reports: malaise, weakness HEENT: Reports: no symptoms Cardiovascular: Reports: no symptoms Respiratory: Reports: no symptoms Gastrointestinal/Abdominal: Reports: difficulty swallowing, poor appetite, poor fluid intake Genitourinary: Reports: no symptoms Neurologic/Psychiatric: Reports: anxiety, pre-existing deficit Endocrine: Reports: no symptoms Hematologic/Lymphatic: Reports: anemia Allergies: Coded Allergies: No Known Allergies (Unverified , 06/05/19) All Systems: reviewed and negative except above Subjective There were no overnight events. Patient's oxygen saturations are better. He is currently on 1 L nasal cannula. There are no reports of any congestion fevers or chills. He remains restrained. The patient remains confused. There were no labs noted today. Patient despite confusion remains mostly cooperative with care. Staff has been unable to remove restraints because patient continues to try to get out of bed and pull out his IV lines. Objective Last 24 Hour Vital Signs Date Time Temp Pulse Resp B/P (MAP) Pulse Ox O2 Delivery O2 Flow Rate FiO2 08/16/19 13:32 128/50 08/16/19 12:00 98.0 63 18 128/50 (76) 96 08/16/19 11:45 179/55 08/16/19 09:00 Nasal Cannula 2.0 08/16/19 08:31 53 179/55 08/16/19 08:00 97.8 53 18 174/54 (94) 99 08/16/19 05:56 160/75 08/16/19 05:56 160/75 08/16/19 04:00 97.9 57 22 160/56 (90) 95 08/16/19 00:00 97.7 59 24 144/50 (81) 96 08/15/19 22:00 158/55 08/15/19 21:00 Nasal Cannula 2.0 08/15/19 20:00 98.0 61 20 158/55 (89) 96 08/15/19 17:44 184/69 08/15/19 17:44 59 164/69 08/15/19 16:00 98.4 68 20 157/71 (99) 96 Intake and Output 08/15/19 08/16/19 19:00 07:00 Intake Total 240 ml Output Total 800 ml Balance -560 ml Intake Oral 240 ml Output Urine Total 800 ml # Voids 1 Height (Feet): 5 Height (Inches): 6.00 Weight (Pounds): 160 Objective General Appearance: WD/WN, alert, confused Neck: supple Cardiovascular: regular rhythm Respiratory/Chest: rhonchi - bilaterally Abdomen: normal bowel sounds, non tender, soft, no organomegaly, no mass Edema: no edema noted Arm (L), no edema noted Arm (R), no edema noted Leg (L), no edema noted Leg (R), no edema noted Pedal (L), no edema noted Pedal (R), no edema noted Generalized Neurologic: ekg monitor II-XII grossly normal, alert, responsive Iggy Echavarria MD Aug 16, 2019 15:13
--- NOTE | 2019-08-16 15:17 | NUR ---
CASE MANAGEMENT: REVIEW SI;AC/CHR RENAL FAILURE. ENCEPHALOPATHY. GROSS HEMATURIA. UTI. CHF. 98.0 53 18 179/55 96% 2L NC NO LABS IS;LASIX PO QD K-DUR PO QD HYDRALAZINE PO Q8 HRS NITRO-BID TOP Q6 HRS PROCARDIA PO BID MED SURG STATUS DCP;SNF PLACEMENT UPON ACCEPTANCE FROM [facility] (UNABLE TO RETURN TO ASSISTED LIVING LEVEL OF CARE)
[2019-08-16 16:00] VITALS: BP 134/60
--- NOTE | 2019-08-16 19:20 | NUR ---
HAND-OFF: Report given to Rigoberto GOULD. Addendum: 08/16/19 at 1922 by Jake Bedolla RN Wrong patient. Report given to Ted GOULD. Endorsed that patient is a high fall risk due to confusion and weakness. Endorsed that patient is currently on restraints and that an order renewal is required tomorrow. Patient in stable condition at this time.
--- NOTE | 2019-08-16 19:31 | NUR ---
NURSE NOTES: Patient awake but drowsy. Alert to name only. Breathing unlabored on 1L O2 via NC. Denies pain or discomfort. Speaks Greenlandic. IV noted on right forearm intact and saline locked. Bilateral soft restraints noted intact for patient safety with pulses present, skin intact, and warm to touch. Bed placed at the lowest with HOB elevated, alarm on, brake on, and siderails up for safety. Call light placed within reach. Will continue to monitor.
[2019-08-16 20:00] VITALS: BP 168/78
[2019-08-16] MEDS: Sennosides 8.6mg tab ORAL SCH (20:32)
[2019-08-16] MEDS: Tamsulosin 0.4mg cap ORAL SCH (20:32)
--- NOTE | 2019-08-16 23:29 | Progress Note ---
DATE: 08/16/2019 CARDIOLOGY PROGRESS NOTE SUBJECTIVE: The patient still has some episodes of agitation and unsafe behavior. He is trying to get out of bed and requires restraints as a result. He has not had any distress from the respiratory standpoint noted. OBJECTIVE: VITAL SIGNS: Blood pressure ranging from 144/51 to 174/54, heart rate 53 to 68, respiratory rate 20, and afebrile. LUNGS: Bilateral breath sounds. No wheezing. CARDIAC: Regular rhythm and rate. Normal S1 and S2. A 1/6 systolic murmur at lower left sternal border. ABDOMEN: Soft. EXTREMITIES: No edema. LABORATORY DATA: No new labs today. IMPRESSION: 1. Junctional rhythm, no significant bradyarrhythmia. 2. Hypertensive heart disease. 3. Acute on chronic kidney injury. 4. Severe pulmonary hypertension. 5. Frequent falls. 6. Toxic and metabolic encephalopathies. 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 10. Hypertensive heart disease with high normal blood pressure range. PLAN: 1. No indication for pacemaker. 2. Orthostatic risk precludes tighten blood pressure control and over diuresis. 3. Maintenance dose diuretic therapy being titrated. 4. Antihypertensive regimen being titrated. 5. We will recheck laboratory studies to assess electrolytes. 6. Multiple comorbidities and advanced age make this is a very high risk patient. Gamaliel Salas M.D. DR: ANDRE JOB#: [id number] CC:
[2019-08-17] VITALS: BP 147/67
--- NOTE | 2019-08-17 | Progress Note ---
DATE: 08/06/2019 SUBJECTIVE: The patient is a Yi speaking male. The patient is is calm and more cooperative. Able to say his name. He is less agitated and more manageable. The patient is awaiting for placement. MENTAL STATUS EXAMINATION: Alert and oriented times self. Mood is neutral. Affect is flat. Thought process is concrete. Thought content, no suicidal or homicidal ideation noted. Cognition is intact. Insight and judgment fair. ASSESSMENT: Stable. PLAN: 1. We will continue current medications. 2. Provide the patient with reality orientation and supportive therapy. Loco Luu M.D. DR: EDWIN JOB#: [id number] CC:
[2019-08-17 04:00] VITALS: BP 159/77
[2019-08-17] MEDS: Nitroglycerin 2% oint pkt TOPIC SCH ×3 (05:23→17:47)
[2019-08-17] MEDS: HydrALAZINE 50mg tab ORAL SCH ×3 (05:23→21:10)
--- NOTE | 2019-08-17 06:34 | NUR ---
NURSE NOTES: Provided proper incontinence care throughout the shift. Provided oral care. No bowel movement during the shift. Will continue to monitor.
[2019-08-17 06:38] LABS: BASOPHILS % (AUTO) 1.3 % (0.0-2.0); EOSINOPHILS % (AUTO) 3.9 % (0.0-3.0); HEMATOCRIT 30.7 % (42.0-52.0); HEMOGLOBIN 10.1 G/DL (14.2-18.0); LYMPHOCYTES % (AUTO) 11.2 % (20.0-45.0); MEAN CORPUSCULAR VOLUME 91 FL (80-99); MONOCYTES % (AUTO) 9.8 % (1.0-10.0); NEUTROPHILS % (AUTO) 73.8 % (45.0-75.0); PLATELET COUNT 240 K/UL (150-450); RED BLOOD COUNT 3.39 M/UL (4.70-6.10); RED CELL DISTRIBUTION WIDTH 15.2 % (11.6-14.8); WHITE BLOOD COUNT 5.6 K/UL (4.8-10.8)
[2019-08-17 07:27] LABS: ALANINE AMINOTRANSFERASE 20 U/L (12-78); ALBUMIN/GLOBULIN RATIO 0.9 (1.0-2.7); ALKALINE PHOSPHATASE 115 U/L (46-116); ANION GAP 9 mmol/L (5-15); ASPARTATE AMINO TRANSFERASE 26 U/L (15-37); BILIRUBIN,TOTAL 0.6 MG/DL (0.2-1.0); BLOOD UREA NITROGEN 31 mg/dL (7-18); CALCIUM 9.8 MG/DL (8.5-10.1); CARBON DIOXIDE 29 MMOL/L (21-32); CHLORIDE 109 MMOL/L (98-107); CREATININE 2.4 MG/DL (0.55-1.30); POTASSIUM 3.8 MMOL/L (3.5-5.1); SODIUM 147 MMOL/L (136-145)
--- NOTE | 2019-08-17 07:30 | NUR ---
HAND-OFF: Report given to LUIS FERNANDO Ribeiro. Plan of care endorsed.
--- NOTE | 2019-08-17 07:42 | NUR ---
NURSE NOTES: Received patient in bed asleep. O2 via nasal cannula in place. IV lines intact. Bilateral soft wrist restraints on, peripheral pulses palpable, no skin issues notes on site, skin warm to touch. HOB elevated. Bed locked in lowest position. Call light within reach. Will continue plan of care.
[2019-08-17 08:00] VITALS: BP 162/66
--- NOTE | 2019-08-17 08:46 | Pulmonology Progress Note ---
Assessment/Plan Assessment/Plan IMPRESSION: 1. Pleural effusions, small bilateral. 2. Atelectasis. 3. Pulmonary edema, questionable. 4. Hypertension. 5. Hyperlipidemia. DISCUSSION: The patient is saturating well on room air or low flow O2. 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 no new recommendations Kimani Hahn M.D. Subjective Interval Events: None new Constitutional: Reports: no symptoms HEENT: Repors: no symptoms Respiratory: Reports: no symptoms Cardiovascular: Reports: no symptoms Allergies: Coded Allergies: No Known Allergies (Unverified , 06/05/19) Objective Last 24 Hour Vital Signs Date Time Temp Pulse Resp B/P (MAP) Pulse Ox O2 Delivery O2 Flow Rate FiO2 08/17/19 05:23 174/69 08/17/19 05:23 174/69 08/17/19 04:00 98.2 69 20 159/77 (104) 97 08/17/19 00:00 97.9 68 20 147/67 (93) 96 08/16/19 21:22 147/53 08/16/19 21:00 Nasal Cannula 1.0 08/16/19 20:00 98.0 73 21 168/78 (108) 97 08/16/19 18:15 134/60 08/16/19 18:15 60 134/60 08/16/19 16:00 98.0 60 18 134/60 (84) 96 08/16/19 13:32 128/50 08/16/19 12:00 98.0 63 18 128/50 (76) 96 08/16/19 11:45 179/55 08/16/19 09:00 Nasal Cannula 2.0 Intake and Output 08/16/19 08/17/19 19:00 07:00 Intake Total 640 ml Balance 640 ml Intake Oral 640 ml # Voids 6 4 General Appearance: no acute distress HEENT: normocephalic Respiratory/Chest: chest wall non-tender Cardiovascular: normal peripheral pulses Abdomen: normal bowel sounds Laboratory Tests 08/17/19 05:43: White Blood Count 5.6, Red Blood Count 3.39L, Hemoglobin 10.1L, Hematocrit 30.7L , Mean Corpuscular Volume 91, Mean Corpuscular Hemoglobin 29.9, Mean Corpuscular Hemoglobin Concent 33.0, Red Cell Distribution Width 15.2H, Platelet Count 240, Mean Platelet Volume 6.0L, Neutrophils (%) (Auto) 73.8, Lymphocytes (%) (Auto) 11.2L, Monocytes (%) (Auto) 9.8, Eosinophils (%) (Auto) 3.9H, Basophils (%) (Auto) 1.3, Sodium Level 147H, Potassium Level 3.8, Chloride Level 109H, Carbon Dioxide Level 29, Anion Gap 9, Blood Urea Nitrogen 31H, Creatinine 2.4H, Estimat Glomerular Filtration Rate 25.9, Glucose Level 109H, Calcium Level 9.8, Magnesium Level 2.2, Total Bilirubin 0.6, Aspartate Amino Transf (AST/SGOT) 26, Alanine Aminotransferase (ALT/SGPT) 20, Alkaline Phosphatase 115, Pro-B-Type Natriuretic Peptide 5982H, Total Protein 6.3L, Albumin 3.0L, Globulin 3.3, Albumin/Globulin Ratio 0.9L Current Medications Medications (Trade) Dose Ordered Sig/Kristine Route PRN Reason Start Time Stop Time Status Last Admin Dose Admin Acetaminophen (Tylenol) 500 mg Q6H PRN ORAL Mild Pain/Temp > 100.5 08/16/19 03:00 09/05/19 08:55 Docusate Sodium (Colace) 250 mg DAILY ORAL 08/16/19 09:00 09/05/19 08:59 08/16/19 08:32 Finasteride (Proscar) 5 mg DAILY ORAL 08/16/19 09:00 11/05/19 15:44 08/16/19 08:31 Furosemide (Lasix) 20 mg DAILY ORAL 08/16/19 09:00 09/15/19 08:59 08/16/19 08:30 Hydralazine HCl (Apresoline) 75 mg EVERY 8 HOURS ORAL 08/16/19 06:00 11/13/19 05:59 08/17/19 05:23 Lorazepam (Ativan 2mg/ml 1ml) 1 mg Q4H PRN IV For Anxiety or agitation 08/16/19 03:15 08/21/19 07:14 08/16/19 15:55 Nifedipine (Procardia XL) 30 mg BID ORAL 08/16/19 09:00 09/05/19 17:59 08/16/19 18:15 Nitroglycerin (Nitro-Bid) 1 inch Q6HR@0600,1200,1800 TOPIC 08/16/19 06:00 09/11/19 06:59 08/17/19 05:23 Pantoprazole (Protonix) 40 mg EVERY 12 HOURS IVP 08/16/19 09:00 09/05/19 08:59 08/16/19 20:32 Potassium Chloride (K-Dur) 20 meq DAILY ORAL 08/16/19 09:00 11/14/19 08:59 08/16/19 08:32 Risperidone (RisperDAL) 2 mg BEDTIME ORAL 08/16/19 21:00 09/29/19 20:59 08/16/19 20:32 Sennosides (Senokot) 8.6 mg BEDTIME ORAL 08/16/19 21:00 09/05/19 20:59 08/16/19 20:32 Tamsulosin HCl (Flomax) 0.4 mg BEDTIME ORAL 08/16/19 21:00 09/05/19 20:59 08/16/19 20:32 Kimani Hahn MD Aug 17, 2019 08:46
[2019-08-17] MEDS: Docusate 250mg cap ORAL SCH (09:05)
[2019-08-17] MEDS: Pantoprazole Inj IVP SCH ×2 (09:05→21:09)
--- NOTE | 2019-08-17 09:27 | General Progress Note ---
Assessment/Plan Problem List: (1) CHF (congestive heart failure) ICD Codes: I50.9 - Heart failure, unspecified SNOMED: 36188596 (2) Renal failure (ARF), acute on chronic ICD Codes: N17.9 - Acute kidney failure, unspecified; N18.9 - Chronic kidney disease, unspecified SNOMED: 312445857 (3) Encephalopathy due to metabolic factor or toxin SNOMED: 344358643 (4) Gross hematuria ICD Codes: R31.0 - Gross hematuria SNOMED: 581574981 (5) Falls frequently ICD Codes: R29.6 - Repeated falls SNOMED: 118860299 (6) Dehydration ICD Codes: E86.0 - Dehydration SNOMED: 22838086 (7) UTI (urinary tract infection) ICD Codes: N39.0 - Urinary tract infection, site not specified SNOMED: 06514347 (8) Anemia ICD Codes: D64.9 - Anemia, unspecified SNOMED: 428647359 Status: stable, progressing, not improved Assessment/Plan: We will try to remove restraints. Psychiatric follow-up regarding patient's anxiolytics. Will discontinue patient's Lasix as his creatinine is worsening. Nurses have been asked to encourage patient to drink more fluids. Repeat labs in the morning. Monitor sodium level and creatinine. Discharge planning in progress. According to case therapist placement is been difficult to find. Subjective ROS Limited/Unobtainable: No Constitutional: Reports: malaise, weakness HEENT: Reports: no symptoms Cardiovascular: Reports: no symptoms Respiratory: Reports: no symptoms Gastrointestinal/Abdominal: Reports: difficulty swallowing, poor fluid intake Genitourinary: Reports: no symptoms Neurologic/Psychiatric: Reports: anxiety, pre-existing deficit Endocrine: Reports: no symptoms Hematologic/Lymphatic: Reports: no symptoms Allergies: Coded Allergies: No Known Allergies (Unverified , 06/05/19) All Systems: reviewed and negative except above Subjective There have been no overnight events. Patient remains confused and anxious. He requires restraints as he continues to try to get out of bed and pull out his IVs. P.o. intake has been very labile. Labs are noted for worsening creatinine today. Also his sodium is trending up. Objective Last 24 Hour Vital Signs Date Time Temp Pulse Resp B/P (MAP) Pulse Ox O2 Delivery O2 Flow Rate FiO2 08/17/19 09:05 67 162/66 08/17/19 08:00 97.1 67 19 162/66 (98) 98 08/17/19 05:23 174/69 08/17/19 05:23 174/69 08/17/19 04:00 98.2 69 20 159/77 (104) 97 08/17/19 00:00 97.9 68 20 147/67 (93) 96 08/16/19 21:22 147/53 08/16/19 21:00 Nasal Cannula 1.0 08/16/19 20:00 98.0 73 21 168/78 (108) 97 08/16/19 18:15 134/60 08/16/19 18:15 60 134/60 08/16/19 16:00 98.0 60 18 134/60 (84) 96 08/16/19 13:32 128/50 08/16/19 12:00 98.0 63 18 128/50 (76) 96 08/16/19 11:45 179/55 Intake and Output 08/16/19 08/17/19 18:59 06:59 Intake Total 640 ml Balance 640 ml Intake Oral 640 ml # Voids 6 4 Laboratory Tests 08/17/19 05:43: White Blood Count 5.6, Red Blood Count 3.39L, Hemoglobin 10.1L, Hematocrit 30.7L , Mean Corpuscular Volume 91, Mean Corpuscular Hemoglobin 29.9, Mean Corpuscular Hemoglobin Concent 33.0, Red Cell Distribution Width 15.2H, Platelet Count 240, Mean Platelet Volume 6.0L, Neutrophils (%) (Auto) 73.8, Lymphocytes (%) (Auto) 11.2L, Monocytes (%) (Auto) 9.8, Eosinophils (%) (Auto) 3.9H, Basophils (%) (Auto) 1.3, Sodium Level 147H, Potassium Level 3.8, Chloride Level 109H, Carbon Dioxide Level 29, Anion Gap 9, Blood Urea Nitrogen 31H, Creatinine 2.4H, Estimat Glomerular Filtration Rate 25.9, Glucose Level 109H, Calcium Level 9.8, Magnesium Level 2.2, Total Bilirubin 0.6, Aspartate Amino Transf (AST/SGOT) 26, Alanine Aminotransferase (ALT/SGPT) 20, Alkaline Phosphatase 115, Pro-B-Type Natriuretic Peptide 5982H, Total Protein 6.3L, Albumin 3.0L, Globulin 3.3, Albumin/Globulin Ratio 0.9L Height (Feet): 5 Height (Inches): 6.00 Weight (Pounds): 110 Objective General Appearance: WD/WN, alert, confused Neck: supple Cardiovascular: regular rhythm Respiratory/Chest: rhonchi - bilaterally Abdomen: normal bowel sounds, non tender, soft, no organomegaly, no mass Edema: no edema noted Arm (L), no edema noted Arm (R), no edema noted Leg (L), no edema noted Leg (R), no edema noted Pedal (L), no edema noted Pedal (R), no edema noted 

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
--- NOTE | 2019-08-17 11:39 | NUR ---
*-*INSURANCE*-* UPDATED CLINICALS AND REVIEWS HAVE BEEN FAXED TO: DEE SALGUERO F: [phone] REF# [id number]
--- NOTE | 2019-08-17 11:40 | Nephrology Progress Note ---
Assessment/Plan Problem List: (1) Renal failure (ARF), acute on chronic Assessment: Serum creatinine started rising again (2) Falls frequently (3) UTI (urinary tract infection) Assessment: and hematuria (4) Anemia (5) Dehydration (6) Encephalopathy due to metabolic factor or toxin Assessment Frequent falls Acute renal failure with underlying dehydration Anemia, underlying etiology unclear UTI (urinary tract infection) Toxic metabolic encephalopathy Plan Today's labs reviewed Speech therapy evaluation noted and discussed with speech therapist Correct electrolytes as needed Transfusion as needed Low IV hydration 2D echocardiogram ejection fraction 60% Kidney ultrasound pending results Monitor renal parameters Avoid nephrotoxics Antibiotics for UTI Continue per consultants Subjective ROS Limited/Unobtainable: Yes Objective Objective Last 24 Hour Vital Signs Date Time Temp Pulse Resp B/P (MAP) Pulse Ox O2 Delivery O2 Flow Rate FiO2 08/17/19 09:05 67 162/66 08/17/19 09:00 Nasal Cannula 1.0 08/17/19 08:00 97.1 67 19 162/66 (98) 98 08/17/19 05:23 174/69 08/17/19 05:23 174/69 08/17/19 04:00 98.2 69 20 159/77 (104) 97 08/17/19 00:00 97.9 68 20 147/67 (93) 96 08/16/19 21:22 147/53 08/16/19 21:00 Nasal Cannula 1.0 08/16/19 20:00 98.0 73 21 168/78 (108) 97 08/16/19 18:15 134/60 08/16/19 18:15 60 134/60 08/16/19 16:00 98.0 60 18 134/60 (84) 96 08/16/19 13:32 128/50 08/16/19 12:00 98.0 63 18 128/50 (76) 96 08/16/19 11:45 179/55 Intake and Output 08/16/19 08/17/19 19:00 07:00 Intake Total 640 ml Balance 640 ml Intake Oral 640 ml # Voids 6 4 Laboratory Tests 08/17/19 05:43: White Blood Count 5.6, Red Blood Count 3.39L, Hemoglobin 10.1L, Hematocrit 30.7L , Mean Corpuscular Volume 91, Mean Corpuscular Hemoglobin 29.9, Mean Corpuscular Hemoglobin Concent 33.0, Red Cell Distribution Width 15.2H, Platelet Count 240, Mean Platelet Volume 6.0L, Neutrophils (%) (Auto) 73.8, Lymphocytes (%) (Auto) 11.2L, Monocytes (%) (Auto) 9.8, Eosinophils (%) (Auto) 3.9H, Basophils (%) (Auto) 1.3, Sodium Level 147H, Potassium Level 3.8, Chloride Level 109H, Carbon Dioxide Level 29, Anion Gap 9, Blood Urea Nitrogen 31H, Creatinine 2.4H, Estimat Glomerular Filtration Rate 25.9, Glucose Level 109H, Calcium Level 9.8, Magnesium Level 2.2, Total Bilirubin 0.6, Aspartate Amino Transf (AST/SGOT) 26, Alanine Aminotransferase (ALT/SGPT) 20, Alkaline Phosphatase 115, Pro-B-Type Natriuretic Peptide 5982H, Total Protein 6.3L, Albumin 3.0L, Globulin 3.3, Albumin/Globulin Ratio 0.9L Height (Feet): 5 Height (Inches): 6.00 Weight (Pounds): 110 General Appearance: confused, mild distress Cardiovascular: normal rate Respiratory/Chest: decreased breath sounds Abdomen: soft Genitourinary/Rectal: other - Trevino is out Objective No change Juan Jade MD Aug 17, 2019 11:39
--- NOTE | 2019-08-17 11:54 | NUR ---
CASE MANAGEMENT:REVIEW SI;AC/CHR RENAL FAILURE. CHF. UTI. ANEMIA. ENCEPHALOPATHY. 98.1 69 20 174/69 96% 1L NC NA 147 BUN 31 CR 2.4 BNP 5982 ALB 3.0 IS;LASIX PO QD NITRO-BID TOP Q6 HRS K-DUR PO QD PROTONIX IV BID FLOMAX PO HANSON RISPERDAL PO HS PROSCAR PO QD MED SURG STATUS DCP;SNF PLACEMENT UPON ACCEPTANCE
[2019-08-17 12:00] VITALS: BP 125/52
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
[2019-08-17 16:00] VITALS: BP 152/60
--- NOTE | 2019-08-17 16:02 | NUR ---
*-*INSURANCE*-* UPDATED CLINICALS AND REVIEWS HAVE BEEN FAXED TO: DEE SALGUERO F: [phone] REF# [id number]
--- NOTE | 2019-08-17 19:20 | NUR ---
NURSE NOTES: Received patient in bed. Awake, Alert x1. Denies pain at this time. Bilateral soft wrist restraints in place, hands are warm and normal color for ethnicity. IV site in Right wrist and Left wrist intact. Patient is a high fall risk, TRAFFIC CONTROLLER CABLE and CN informed. Patient placed close to nurses station, Patient oriented to room and use of call light with return demonstration. Bed alarm on high sensitivity, bed at the lowest position, bed locked, call light in reach.
--- NOTE | 2019-08-17 19:30 | NUR ---
HAND-OFF: Report given to
[2019-08-17 20:00] VITALS: BP 124/57
--- NOTE | 2019-08-17 20:00 | NUR ---
NURSE NOTES: Dr. Luu ordered to d/c restraints and monitor for pulling of the IV. Addendum: 08/18/19 at 0412 by Jef Hanna RN Obtained order to d/c restraints from Dr. Luu at 199908/17/2019.
--- NOTE | 2019-08-17 20:00 | NUR ---
NURSE NOTES: Received patient in no apparent distress. A&OX1, confusion. NC 1L on. IV sites are patent and intact. Bed in lowest position. Call light within reach. Will continue to monitor.
[2019-08-17] MEDS: Tamsulosin 0.4mg cap ORAL SCH (21:09)
[2019-08-17] MEDS: Sennosides 8.6mg tab ORAL SCH (21:09)
--- NOTE | 2019-08-17 22:00 | Progress Note ---
DATE: 08/17/2019 CARDIOLOGY PROGRESS NOTE SUBJECTIVE: The patient has confusion, anxiety and requires restraints for safety. This has limited his discharge options at this time. Blood pressure parameters labile. Mood is felt to be partly responsible for these blood pressure readings. PHYSICAL EXAMINATION: VITAL SIGNS: Blood pressure 162/66, pulse 67, respiratory rate 19, and afebrile. LUNGS: Clear. CARDIAC: Regular rhythm and rate. Normal S1 and S2 with a 2/6 early systolic murmur at lower left sternal border. ABDOMEN: Soft and nontender. EXTREMITIES: No edema. LABORATORY DATA: White count 5.6, hemoglobin 10.1. Pro-natriuretic peptide has decreased to 5900. BUN 31 and creatinine 2.4. Sodium 147, potassium 3.8, bicarb 29. IMPRESSION: 1. Acute on chronic diastolic congestive heart failure. 2. Pulmonary hypertension. 3. Mod-severe mitral insufficiency 4. Acute on chronic renal failure. 5. Dehydration. 6. Hyponatremia. 7. Junctional rhythm. 8. Conduction system disease of the heart. 9. Valvular cardiomyopathy with mitral valve replacement. PLAN: 1. The patient will need to remain with high range BUN and creatinine due to propensity for heart failure. In addition blood pressure parameters needs to be kept on the higher side due to aortic valve stenosis which is undertaking especially with his advanced age. 2. Hold additional diuresis today. Free water replacement. 3. Attempt to manage mood disorder. 4. Optimize blood pressure parameters. Gamaliel Salas M.D. DR: Lexii JOB#: [id number] CC: JAISON
--- NOTE | 2019-08-17 23:26 | Psych Consult Progress Note ---
Psychiatry Progress Note Psychiatry Progress Note Subjective the pt is calmer today still has agitation Medications Current Medications Medications (Trade) Dose Ordered Sig/Kristine Route PRN Reason Start Time Stop Time Status Last Admin Dose Admin Acetaminophen (Tylenol) 500 mg Q6H PRN ORAL Mild Pain/Temp > 100.5 08/16/19 03:00 09/05/19 08:55 Docusate Sodium (Colace) 250 mg DAILY ORAL 08/16/19 09:00 09/05/19 08:59 08/17/19 09:05 Finasteride (Proscar) 5 mg DAILY ORAL 08/16/19 09:00 11/05/19 15:44 08/17/19 09:05 Hydralazine HCl (Apresoline) 75 mg EVERY 8 HOURS ORAL 08/16/19 06:00 11/13/19 05:59 08/17/19 21:10 Lorazepam (Ativan 2mg/ml 1ml) 1 mg Q4H PRN IV For Anxiety or agitation 08/16/19 03:15 08/21/19 07:14 08/16/19 15:55 Nifedipine (Procardia XL) 30 mg BID ORAL 08/16/19 09:00 09/05/19 17:59 08/17/19 17:47 Nitroglycerin (Nitro-Bid) 1 inch Q6HR@0600,1200,1800 TOPIC 08/16/19 06:00 09/11/19 06:59 08/17/19 17:47 Pantoprazole (Protonix) 40 mg EVERY 12 HOURS IVP 08/16/19 09:00 09/05/19 08:59 08/17/19 21:09 Risperidone (RisperDAL) 2 mg BEDTIME ORAL 08/16/19 21:00 09/29/19 20:59 08/17/19 21:10 Sennosides (Senokot) 8.6 mg BEDTIME ORAL 08/16/19 21:00 09/05/19 20:59 08/17/19 21:09 Tamsulosin HCl (Flomax) 0.4 mg BEDTIME ORAL 08/16/19 21:00 09/05/19 20:59 08/17/19 21:09 Neurological/Psychiatric: Reports: anxiety, depressed, emotional problems Allergies: Coded Allergies: No Known Allergies (Unverified , 06/05/19) Objective Data Height (Feet): 5 Height (Inches): 6.00 Weight (Pounds): 110 General Appearance: WD/WN, alert, confused, agitated Appearance: no abnormalities noted Behavior Mannerisms: poor eye contact Mental Status Exam - Affect: constricted Mental Status Exam - Mood: agitated Speech: clear Mental Status Exam - Suicidal: not present Additional Comments: alert, awake, and disoriented. Mood is neutral. Affect is flat. Thought process, there is a paucity of thought content. Thought content, no suicidal or homicidal ideation. Cognition is impaired. Insight and judgment is impaired. Assessment/Plan Problem List: (1) Encephalopathy due to metabolic factor or toxin SNOMED: 371517225 Status: stable, progressing, not improved Assessment/Plan: ASSESSMENT: 1. Dementia. 2. Psychotic disorder. PLAN: 1. lexapro 2. risperidone. 3. Continue to follow and readjust the medications. Loco Luu MD Aug 17, 2019 23:26
[2019-08-18] VITALS: BP 149/59
--- NOTE | 2019-08-18 | NUR ---
NURSE NOTES: Nitro-Bid on the right chest was removed and wiped.
[2019-08-18 04:00] VITALS: BP 156/67
[2019-08-18] MEDS: Nitroglycerin 2% oint pkt TOPIC SCH ×3 (05:51→18:07)
[2019-08-18] MEDS: HydrALAZINE 50mg tab ORAL SCH ×3 (05:52→21:04)
[2019-08-18 06:28] LABS: ANION GAP 11 mmol/L (5-15); BLOOD UREA NITROGEN 37 mg/dL (7-18); CALCIUM 9.7 MG/DL (8.5-10.1); CARBON DIOXIDE 26 MMOL/L (21-32); CHLORIDE 113 MMOL/L (98-107); CREATININE 2.6 MG/DL (0.55-1.30); POTASSIUM 3.8 MMOL/L (3.5-5.1); SODIUM 150 MMOL/L (136-145)
--- NOTE | 2019-08-18 07:42 | NUR ---
HAND-OFF: Report given to Gema GOULD.
--- NOTE | 2019-08-18 07:50 | NUR ---
NURSE NOTES: Received patient in bed asleep. O2 via nasal cannula in place. No SOB or acute distress. IV lines intact. HOB elevated. Bed locked in lowest position, alarm on. Call light within reach. Will continue frequent rounding and plan of care.
[2019-08-18 08:00] VITALS: BP 166/61
[2019-08-18] MEDS: Docusate 250mg cap ORAL SCH (08:28)
[2019-08-18] MEDS: Pantoprazole Inj IVP SCH (08:29)
--- NOTE | 2019-08-18 09:23 | General Progress Note ---
Assessment/Plan Problem List: (1) CHF (congestive heart failure) ICD Codes: I50.9 - Heart failure, unspecified SNOMED: 22009302 (2) Renal failure (ARF), acute on chronic ICD Codes: N17.9 - Acute kidney failure, unspecified; N18.9 - Chronic kidney disease, unspecified SNOMED: 750580494 (3) Encephalopathy due to metabolic factor or toxin SNOMED: 778377828 (4) Gross hematuria ICD Codes: R31.0 - Gross hematuria SNOMED: 149752266 (5) Falls frequently ICD Codes: R29.6 - Repeated falls SNOMED: 385305066 (6) Dehydration ICD Codes: E86.0 - Dehydration SNOMED: 44005822 (7) UTI (urinary tract infection) ICD Codes: N39.0 - Urinary tract infection, site not specified SNOMED: 36234200 (8) Anemia ICD Codes: D64.9 - Anemia, unspecified SNOMED: 480972073 Status: stable, progressing, not improved Assessment/Plan: We will try to remove restraints. Psychiatric follow-up regarding patient's anxiolytics. add hypotonic ivf. Nurses have been asked to encourage patient to drink more fluids. Repeat labs in the morning. Monitor sodium level and creatinine. Discharge planning in progress. According to disability case manager placement is been difficult to find. Subjective ROS Limited/Unobtainable: No Constitutional: Reports: malaise, weakness HEENT: Reports: no symptoms Cardiovascular: Reports: no symptoms Respiratory: Reports: cough Gastrointestinal/Abdominal: Reports: difficulty swallowing Genitourinary: Reports: no symptoms Neurologic/Psychiatric: Reports: anxiety, pre-existing deficit Endocrine: Reports: no symptoms Hematologic/Lymphatic: Reports: anemia Allergies: Coded Allergies: No Known Allergies (Unverified , 06/05/19) All Systems: reviewed and negative except above Subjective Patient remained stable. He is awake but confused. This appears to be his baseline. His blood pressure remains high and his sodium level is still trending up. P.o. intake remains poor. Patient continues on bilateral wrist restraints. He continues to try to get out of bed unassisted and is a high fall risk. Objective Last 24 Hour Vital Signs Date Time Temp Pulse Resp B/P (MAP) Pulse Ox O2 Delivery O2 Flow Rate FiO2 08/18/19 08:28 73 166/61 08/18/19 08:00 97.6 73 20 166/61 (96) 97 08/18/19 05:52 156/67 08/18/19 05:51 156/67 08/18/19 04:00 98.9 91 20 156/67 (96) 95 08/18/19 00:00 98.5 91 20 149/59 (89) 97 08/17/19 21:10 124/57 08/17/19 21:00 Nasal Cannula 1.0 08/17/19 20:00 98.4 79 20 124/57 (79) 96 08/17/19 17:47 152/60 08/17/19 17:47 90 152/60 08/17/19 16:00 97.8 90 20 152/60 (90) 98 08/17/19 13:50 125/52 08/17/19 12:48 125/52 08/17/19 12:00 97.8 80 19 125/52 (76) 96 Intake and Output 08/17/19 08/18/19 19:00 07:00 Intake Total 240 ml 60 ml Balance 240 ml 60 ml Intake Oral 240 ml 60 ml # Voids 3 2 # Bowel Movements 1 Laboratory Tests 08/18/19 04:44: Sodium Level 150H, Potassium Level 3.8, Chloride Level 113H, Carbon Dioxide Level 26, Anion Gap 11, Blood Urea Nitrogen 37H, Creatinine 2.6H, Estimat Glomerular Filtration Rate 23.6, Glucose Level 100, Calcium Level 9.7 Height (Feet): 5 Height (Inches): 6.00 Weight (Pounds): 110 Objective General Appearance: WD/WN, alert, confused Neck: supple Cardiovascular: regular rhythm Respiratory/Chest: rhonchi - bilaterally Abdomen: normal bowel sounds, non tender, soft, no organomegaly, no mass Edema: no edema noted Arm (L), no edema noted Arm (R), no edema noted Leg (L), no edema noted Leg (R), no edema noted Pedal (L), no edema noted Pedal (R), no edema noted Generalized Neurologic: artificial foliage arranger II-XII grossly normal, alert, responsive Iggy Echavarria MD Aug 18, 2019 09:23
--- NOTE | 2019-08-18 09:26 | NUR ---
AUTHORIZATION MANAGER NOTE CALL RECEIVED FROM RALPH WITH JL SALGUERO IN RE TO PRIOR AUTHORIZATION. PATIENTS INSURANCE REQUESTING A PEER TO PEER WITH REQUEST FOR DR HUDSON TO CALL [phone] REF# [id number]. DR HUDSON INFORMED. Addendum: 08/18/19 at 1041 by LIV SOSA LVN LVN DR HUDSON INFORMED THIS CM THAT PHONE NUMBER PROVIDED IS FOR CUSTOMER SERVICE. CALL BACK MADE TO [phone]. S/W YARELIS WHO PROVIDED ALTERNATE NUMBER FOR PEER TO PEER OF [phone]. DR HUDSON REQUESTS FOR DEE SALGUERO MD TO CALL HIM. YARELIS INFORMED. CONFIRMED THAT INSURANCE MD WILL CONTACT DR HUDSON AT 1300 PM FOR PEER TO PEER. DR HUDSON INFORMED.
--- NOTE | 2019-08-18 10:47 | NUR ---
NURSE NOTES: IV left wrist removed. Inserted IV right forearm 22g, asymptomatic, intact, and patent, running D5 at 100cc/hr. Will continue to monitor. Addendum: 08/19/19 at 0300 by Yossi Maldonado RN Entered with incorrect time. Correct time of note = 2247 hours.
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
--- NOTE | 2019-08-18 11:08 | NUR ---
*-*INSURANCE*-* UPDATED CLINICALS AND REVIEWS HAVE BEEN FAXED TO: DEE SALGUERO F: [phone] REF# [id number]
--- NOTE | 2019-08-18 11:53 | Pulmonology Progress Note ---
Assessment/Plan Assessment/Plan IMPRESSION: 1. Pleural effusions, small bilateral. 2. Atelectasis. 3. Pulmonary edema, questionable. 4. Hypertension. 5. Hyperlipidemia. DISCUSSION: The patient is saturating well on room air or low flow O2. I will follow as cell liner. no new recommendations Kimani Hahn M.D. Subjective Interval Events: None new Constitutional: Reports: no symptoms HEENT: Repors: no symptoms Respiratory: Reports: no symptoms Cardiovascular: Reports: no symptoms Allergies: Coded Allergies: No Known Allergies (Unverified , 06/05/19) Objective Last 24 Hour Vital Signs Date Time Temp Pulse Resp B/P (MAP) Pulse Ox O2 Delivery O2 Flow Rate FiO2 08/18/19 08:28 73 166/61 08/18/19 08:00 97.6 73 20 166/61 (96) 97 08/18/19 05:52 156/67 08/18/19 05:51 156/67 08/18/19 04:00 98.9 91 20 156/67 (96) 95 08/18/19 00:00 98.5 91 20 149/59 (89) 97 08/17/19 21:10 124/57 08/17/19 21:00 Nasal Cannula 1.0 08/17/19 20:00 98.4 79 20 124/57 (79) 96 08/17/19 17:47 152/60 08/17/19 17:47 90 152/60 08/17/19 16:00 97.8 90 20 152/60 (90) 98 08/17/19 13:50 125/52 08/17/19 12:48 125/52 08/17/19 12:00 97.8 80 19 125/52 (76) 96 Intake and Output 08/17/19 08/18/19 19:00 07:00 Intake Total 240 ml 60 ml Balance 240 ml 60 ml Intake Oral 240 ml 60 ml # Voids 3 2 # Bowel Movements 1 General Appearance: no acute distress HEENT: normocephalic Respiratory/Chest: chest wall non-tender, lungs clear Cardiovascular: normal peripheral pulses Abdomen: normal bowel sounds Laboratory Tests 08/18/19 04:44: Sodium Level 150H, Potassium Level 3.8, Chloride Level 113H, Carbon Dioxide Level 26, Anion Gap 11, Blood Urea Nitrogen 37H, Creatinine 2.6H, Estimat Glomerular Filtration Rate 23.6, Glucose Level 100, Calcium Level 9.7 Current Medications Medications (Trade) Dose Ordered Sig/Kristine Route PRN Reason Start Time Stop Time Status Last Admin Dose Admin Acetaminophen (Tylenol) 500 mg Q6H PRN ORAL Mild Pain/Temp > 100.5 08/16/19 03:00 09/05/19 08:55 Dextrose 1,000 ml @ 75 mls/hr [id number] IV 08/18/19 09:30 09/17/19 09:29 08/18/19 09:39 Docusate Sodium (Colace) 250 mg DAILY ORAL 08/16/19 09:00 09/05/19 08:59 08/18/19 08:28 Escitalopram Oxalate (Lexapro) 10 mg DAILY ORAL 08/18/19 09:00 09/17/19 08:59 08/18/19 08:28 Finasteride (Proscar) 5 mg DAILY ORAL 08/16/19 09:00 11/05/19 15:44 08/18/19 08:28 Hydralazine HCl (Apresoline) 75 mg EVERY 8 HOURS ORAL 08/16/19 06:00 11/13/19 05:59 08/18/19 05:52 Lorazepam (Ativan 2mg/ml 1ml) 1 mg Q4H PRN IV For Anxiety or agitation 08/16/19 03:15 08/21/19 07:14 08/16/19 15:55 Lorazepam (Ativan) 0.5 mg TIDPRN ORAL 08/17/19 23:30 08/24/19 23:29 UNV Nifedipine (Procardia XL) 30 mg BID ORAL 08/16/19 09:00 09/05/19 17:59 08/18/19 08:28 Nitroglycerin (Nitro-Bid) 1 inch Q6HR@0600,1200,1800 TOPIC 08/16/19 06:00 09/11/19 06:59 08/18/19 05:51 Pantoprazole (Protonix) 40 mg EVERY 12 HOURS IVP 08/16/19 09:00 09/05/19 08:59 08/18/19 08:29 Risperidone (RisperDAL) 2 mg BEDTIME ORAL 08/16/19 21:00 09/29/19 20:59 08/17/19 21:10 Sennosides (Senokot) 8.6 mg BEDTIME ORAL 08/16/19 21:00 09/05/19 20:59 08/17/19 21:09 Tamsulosin HCl (Flomax) 0.4 mg BEDTIME ORAL 08/16/19 21:00 09/05/19 20:59 08/17/19 21:09 Kimani Hahn MD Aug 18, 2019 11:53
[2019-08-18 12:00] VITALS: BP 128/70
--- NOTE | 2019-08-18 12:15 | NUR ---
NURSE NOTES: Patient back on floor, asleep. EGD findings showed gastritis as endorsed by Tarah GOULD. Addendum: 08/18/19 at 1556 by Gema Rm RN Wrong charting. Meant for another patient.
--- NOTE | 2019-08-18 12:36 | NUR ---
CASE MANAGEMENT:REVIEW SI;PLEURAL EFFUSIONS. PULMONARY EDEMA. HTN. AC/CHR RENAL FAILURE. ENCEPHALOPATHY. UTI. ANEMIA. 98.9 61 20 166/61 95% 2L NC NA 150 BUN 37 CR 2.6 IS;IVF D5 @ 75 ML/HR PROTONIX IV Q12 HRS JUDRALAZINE PO Q8 HRS FLOMAX PO HS PROSCAR PO QD MED SURG STATUS DCP;SNF PLACEMENT UPON ACCEPTANCE FROM [facility] (UNABLE TO RETURN TO ASSISTED LIVING LEVEL OF CARE)
--- NOTE | 2019-08-18 12:48 | NUR ---
RD ASSESSMENT & RECOMMENDATIONS SEE CARE ACTIVITY FOR COMPLETE ASSESSMENT DAILY ESTIMATED NEEDS: Needs based on Wound, 66.8kg 28-33 kcals/kg 3301-6098 total kcals 1.25-1.5 g protein/kg 84-100 g total protein 25-30 mL/kg 8122-5551 total fluid mLs NUTRITION DIAGNOSIS: Swallowing difficulty r/t dysphagia and ams as evidenced by s/p CYCLE CONSULTANT eval, poor cognition, pt on liquify puree texture diet w/ HTL, poor po intake. CURRENT DIET: Liquify puree HTL Regular PO DIET RECOMMENDATIONS: Maintain Regular diet, texture per CYCLE CONSULTANT ADDITIONAL RECOMMENDATIONS: 1) Add Ensure TID w/ meals 2) Maintain calibrated bed scale wts EMR wt: 160# vs Bed scale wt: 147#-> bed now reads 109.8# 3) Monitor hydration status, rec D5 w/ variable intake and to prevent hypoglycemia 4) Wound care: Add ALEJANDRA BID as tolerated + Vit C 250mg daily
[2019-08-18] MEDS: LORazepam 0.5mg tab ORAL SCH ×2 (13:00→18:06)
--- NOTE | 2019-08-18 13:17 | Nephrology Progress Note ---
Assessment/Plan Problem List: (1) Renal failure (ARF), acute on chronic Assessment: Serum creatinine started rising again (2) Falls frequently (3) UTI (urinary tract infection) Assessment: and hematuria (4) Anemia (5) Dehydration (6) Encephalopathy due to metabolic factor or toxin Assessment Frequent falls Acute renal failure with underlying dehydration Anemia, underlying etiology unclear UTI (urinary tract infection) Toxic metabolic encephalopathy Plan Today's labs reviewed serum creatinine rising Increase Flomax to twice daily Correct electrolytes as needed Transfusion as needed Low IV hydration 2D echocardiogram ejection fraction 60% Kidney ultrasound pending results Monitor renal parameters Avoid nephrotoxics Antibiotics for UTI Continue per consultants Subjective ROS Limited/Unobtainable: No Constitutional: Reports: malaise, weakness, other - Sedated Objective Objective Last 24 Hour Vital Signs Date Time Temp Pulse Resp B/P (MAP) Pulse Ox O2 Delivery O2 Flow Rate FiO2 08/18/19 12:00 98.1 67 19 128/70 (89) 97 08/18/19 09:00 Nasal Cannula 1.0 08/18/19 08:28 73 166/61 08/18/19 08:00 97.6 73 20 166/61 (96) 97 08/18/19 05:52 156/67 08/18/19 05:51 156/67 08/18/19 04:00 98.9 91 20 156/67 (96) 95 08/18/19 00:00 98.5 91 20 149/59 (89) 97 08/17/19 21:10 124/57 08/17/19 21:00 Nasal Cannula 1.0 08/17/19 20:00 98.4 79 20 124/57 (79) 96 08/17/19 17:47 152/60 08/17/19 17:47 90 152/60 08/17/19 16:00 97.8 90 20 152/60 (90) 98 08/17/19 13:50 125/52 Intake and Output 08/17/19 08/18/19 19:00 07:00 Intake Total 240 ml 60 ml Balance 240 ml 60 ml Intake Oral 240 ml 60 ml # Voids 3 2 # Bowel Movements 1 Laboratory Tests 08/18/19 04:44: Sodium Level 150H, Potassium Level 3.8, Chloride Level 113H, Carbon Dioxide Level 26, Anion Gap 11, Blood Urea Nitrogen 37H, Creatinine 2.6H, Estimat Glomerular Filtration Rate 23.6, Glucose Level 100, Calcium Level 9.7 Height (Feet): 5 Height (Inches): 6.00 Weight (Pounds): 110 General Appearance: no apparent distress, lethargic Cardiovascular: normal rate Respiratory/Chest: decreased breath sounds Abdomen: soft Objective No change Juan Jade MD Aug 18, 2019 13:17
--- NOTE | 2019-08-18 15:57 | NUR ---
NURSE NOTES: Patient observed to be calm and cooperative today. No untoward behaviors observed.
[2019-08-18 16:00] VITALS: BP 138/54
[2019-08-18] MEDS: Tamsulosin 0.4mg cap ORAL SCH (18:06)
--- NOTE | 2019-08-18 18:15 | Progress Note ---
DATE: 08/18/2019 CARDIOLOGY PROGRESS NOTE SUBJECTIVE: The patient is awake, confused. Blood pressure parameters are high at times, but overall improved today. Intake remains poor. He remains a fall risk. PHYSICAL EXAMINATION: VITAL SIGNS: Blood pressure 128/70, earlier 166/61; heart rate 67; respiratory rate 19; afebrile. LUNGS: Clear. CARDIAC: Regular. Normal S1, S2. 2/6 early systolic murmur at lower left sternal border. ABDOMEN: Soft, nontender. EXTREMITIES: No edema. LABORATORY DATA: Sodium 150, potassium 3.8, bicarb 26, BUN 37, creatinine 2.6. IMPRESSION: 1. Metabolic encephalopathy. 2. Junctional rhythm. 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 4. Mitral valve replacement and valvular cardiomyopathy. 5. Acute on chronic diastolic congestive heart failure, clinically compensated. 6. Dehydration. 7. Hypernatremia. 8. Hyperchloremia. 9. Acute on chronic renal failure. 10. Severe pulmonary hypertension. PLAN: 1. The patient needs additional IV fluids. 2. Diuresis should be held. 3. Antihypertensives have been titrated. Gamaliel Salas M.D. DR: BHARAT JOB#: [id number] CC:
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
--- NOTE | 2019-08-18 19:18 | Psych Consult Progress Note ---
Psychiatry Progress Note Psychiatry Progress Note Subjective the pt is more cooperative and calmer. the pt is confused off restraints. Medications Current Medications Medications (Trade) Dose Ordered Sig/Kristine Route PRN Reason Start Time Stop Time Status Last Admin Dose Admin Acetaminophen (Tylenol) 500 mg Q6H PRN ORAL Mild Pain/Temp > 100.5 08/16/19 03:00 09/05/19 08:55 Dextrose 1,000 ml @ 100 mls/hr Q10H IV 08/18/19 17:45 09/17/19 17:44 08/18/19 18:06 Docusate Sodium (Colace) 250 mg DAILY ORAL 08/16/19 09:00 09/05/19 08:59 08/18/19 08:28 Escitalopram Oxalate (Lexapro) 10 mg DAILY ORAL 08/18/19 09:00 09/17/19 08:59 08/18/19 08:28 Finasteride (Proscar) 5 mg DAILY ORAL 08/16/19 09:00 11/05/19 15:44 08/18/19 08:28 Hydralazine HCl (Apresoline) 75 mg EVERY 8 HOURS ORAL 08/16/19 06:00 11/13/19 05:59 08/18/19 13:19 Lorazepam (Ativan 2mg/ml 1ml) 1 mg Q4H PRN IV For Anxiety or agitation 08/16/19 03:15 08/21/19 07:14 08/16/19 15:55 Lorazepam (Ativan) 0.5 mg TID ORAL 08/18/19 13:00 08/25/19 12:59 08/18/19 18:06 Nifedipine (Procardia XL) 30 mg BID ORAL 08/16/19 09:00 09/05/19 17:59 08/18/19 18:07 Nitroglycerin (Nitro-Bid) 1 inch Q6HR@0600,1200,1800 TOPIC 08/16/19 06:00 09/11/19 06:59 08/18/19 18:07 Pantoprazole (Protonix) 40 mg DAILY IVP 08/19/19 09:00 09/05/19 08:59 Risperidone (RisperDAL) 2 mg BEDTIME ORAL 08/16/19 21:00 09/29/19 20:59 08/17/19 21:10 Sennosides (Senokot) 8.6 mg BEDTIME ORAL 08/16/19 21:00 09/05/19 20:59 08/17/19 21:09 Tamsulosin HCl (Flomax) 0.4 mg BID ORAL 08/18/19 18:00 09/05/19 20:59 08/18/19 18:06 Allergies: Coded Allergies: No Known Allergies (Unverified , 06/05/19) Objective Data Height (Feet): 5 Height (Inches): 6.00 Weight (Pounds): 110 General Appearance: WD/WN, no apparent distress, alert, confused Appearance: no abnormalities noted Behavior Mannerisms: poor eye contact Mental Status Exam - Affect: blunted Mental Status Exam - Mood: anxious Speech: clear Mental Status Exam - Thought P: confusion, disorganized Mental Status Exam - Suicidal: not present Assessment/Plan Problem List: (1) Encephalopathy due to metabolic factor or toxin Assessment & Plan: 2. Psychotic disorder. SNOMED: 198792553 Status: stable, progressing, not improved Assessment/Plan: PLAN: 1. lexapro 2. risperidone. 3. Continue to follow and readjust the medications. Loco Luu MD Aug 18, 2019 19:18
--- NOTE | 2019-08-18 19:37 | NUR ---
HAND-OFF: Report given to yolanda. Endorsed high fall risk status.
--- NOTE | 2019-08-18 19:40 | NUR ---
NURSE NOTES: Pt. received from LUIS FERNANDO Ribeiro. Pt. sleeping in bed, with 1L NC, no indications of respiratory distress, no indications of pain. IV left wrist 22g, intact, running D5 at 100cc/hr. Bed is low and locked, side rails x3 up, bed alarm active, and call light in reach. Pt. endorsed as fall risk, safety measures in place and will continue to monitor.
[2019-08-18 20:00] VITALS: BP 131/58
[2019-08-18] MEDS: Sennosides 8.6mg tab ORAL SCH (21:04)
[2019-08-18] MEDS: Acetaminophen 500mg (ES) tab ORAL PRN (22:28)
[2019-08-19] VITALS: BP 131/62
[2019-08-19 04:00] VITALS: BP 130/50
--- NOTE | 2019-08-19 05:00 | NUR ---
NURSE NOTES: Pt. provided perineal care and beddings changed. Pt. cooperative with reassurance, non-violent at this time. Pt. removing NC throughout night and constantly reapplied. Will continue to monitor.
[2019-08-19] MEDS ORDERED: Milk of Magnesia 30ml Ud ORAL PRN (05:45)
[2019-08-19] MEDS: HydrALAZINE 50mg tab ORAL SCH ×4 (06:09→22:00)
[2019-08-19] MEDS: Nitroglycerin 2% oint pkt TOPIC SCH ×3 (06:09→18:01)
--- NOTE | 2019-08-19 07:15 | NUR ---
HAND-OFF: Report given to LUIS FERNANDO Saldana.
[2019-08-19 07:19] LABS: ANION GAP 7 mmol/L (5-15); BLOOD UREA NITROGEN 32 mg/dL (7-18); CALCIUM 9.4 MG/DL (8.5-10.1); CARBON DIOXIDE 28 MMOL/L (21-32); CHLORIDE 108 MMOL/L (98-107); CREATININE 2.4 MG/DL (0.55-1.30); POTASSIUM 3.2 MMOL/L (3.5-5.1); SODIUM 143 MMOL/L (136-145)
--- NOTE | 2019-08-19 07:20 | NUR ---
NURSE NOTES: Received report from LUIS FERNANDO Sy. Patient in bed, A&Ox1. On room air, no signs of distress or labored breathing. IV intact, patent, and infusing IV fluids. Bed in lowest position with side rails up x3. Will continue with plan of care.
[2019-08-19 07:24] LABS: BASOPHILS % (AUTO) 0.6 % (0.0-2.0); EOSINOPHILS % (AUTO) 4.5 % (0.0-3.0); HEMATOCRIT 28.5 % (42.0-52.0); HEMOGLOBIN 9.4 G/DL (14.2-18.0); MEAN CORPUSCULAR VOLUME 90 FL (80-99); MONOCYTES % (AUTO) 7.9 % (1.0-10.0); NEUTROPHILS % (AUTO) 79.1 % (45.0-75.0); PLATELET COUNT 223 K/UL (150-450); RED BLOOD COUNT 3.18 M/UL (4.70-6.10); RED CELL DISTRIBUTION WIDTH 14.9 % (11.6-14.8); WHITE BLOOD COUNT 6.6 K/UL (4.8-10.8)
--- NOTE | 2019-08-19 07:30 | General Progress Note ---
Assessment/Plan Problem List: (1) CHF (congestive heart failure) ICD Codes: I50.9 - Heart failure, unspecified SNOMED: 03354126 (2) Renal failure (ARF), acute on chronic ICD Codes: N17.9 - Acute kidney failure, unspecified; N18.9 - Chronic kidney disease, unspecified SNOMED: 142898056 (3) Encephalopathy due to metabolic factor or toxin SNOMED: 212881652 (4) Gross hematuria ICD Codes: R31.0 - Gross hematuria SNOMED: 379946018 (5) Falls frequently ICD Codes: R29.6 - Repeated falls SNOMED: 555319823 (6) Dehydration ICD Codes: E86.0 - Dehydration SNOMED: 65388287 (7) UTI (urinary tract infection) ICD Codes: N39.0 - Urinary tract infection, site not specified SNOMED: 76552725 (8) Anemia ICD Codes: D64.9 - Anemia, unspecified SNOMED: 971064110 Status: stable, progressing, not improved Assessment/Plan: off restraints. cardiac rx check room air o2 sat pt/ot dc planning to snf once bed found at accepting snf Subjective ROS Limited/Unobtainable: No Constitutional: Reports: malaise, weakness HEENT: Reports: no symptoms Cardiovascular: Reports: no symptoms Respiratory: Reports: no symptoms Gastrointestinal/Abdominal: Reports: no symptoms Genitourinary: Reports: no symptoms Neurologic/Psychiatric: Reports: anxiety, emotional problems Endocrine: Reports: no symptoms Hematologic/Lymphatic: Reports: no symptoms Allergies: Coded Allergies: No Known Allergies (Unverified , 06/05/19) All Systems: reviewed and negative except above Subjective no events. better this morning. more cooperative with care. pulls of o2. Rn is going to check room air o2 sat. restraints removed. answers simple questions and follows commands. Objective Last 24 Hour Vital Signs Date Time Temp Pulse Resp B/P (MAP) Pulse Ox O2 Delivery O2 Flow Rate FiO2 08/19/19 06:09 130/60 08/19/19 06:09 130/60 08/19/19 04:00 98.5 71 18 130/50 (76) 95 08/19/19 00:00 98.7 75 18 131/62 (85) 95 08/18/19 21:04 131/58 08/18/19 21:00 Nasal Cannula 1.0 08/18/19 20:00 98.4 70 18 131/58 (82) 95 08/18/19 18:07 138/54 08/18/19 18:07 83 138/54 08/18/19 16:00 98.0 83 20 138/54 (82) 97 08/18/19 13:19 128/70 08/18/19 13:19 128/70 08/18/19 12:00 98.1 67 19 128/70 (89) 97 08/18/19 09:00 Nasal Cannula 1.0 08/18/19 08:28 73 166/61 08/18/19 08:00 97.6 73 20 166/61 (96) 97 Intake and Output 08/18/19 08/19/19 19:00 07:00 Intake Total 360 ml 725 ml Balance 360 ml 725 ml Intake Oral 360 ml IV Total 725 ml # Voids 3 2 # Bowel Movements 1 Laboratory Tests 08/19/19 06:20: White Blood Count [Pending], Red Blood Count [Pending], Hemoglobin [Pending], Hematocrit [Pending], Mean Corpuscular Volume [Pending], Mean Corpuscular Hemoglobin [Pending], Mean Corpuscular Hemoglobin Concent [Pending], Red Cell Distribution Width [Pending], Platelet Count [Pending], Mean Platelet Volume [ Pending], Neutrophils (%) (Auto) [Pending], Lymphocytes (%) (Auto) [Pending], Monocytes (%) (Auto) [Pending], Eosinophils (%) (Auto) [Pending], Basophils (%) (Auto) [Pending], Sodium Level 143, Potassium Level 3.2L, Chloride Level 108H, Carbon Dioxide Level 28, Anion Gap 7, Blood Urea Nitrogen 32H, Creatinine 2.4H, Estimat Glomerular Filtration Rate 25.9, Glucose Level 141H, Calcium Level 9.4, Magnesium Level [Pending] Height (Feet): 5 Height (Inches): 6.00 Weight (Pounds): 110 Objective General Appearance: WD/WN, alert, confused Neck: supple Cardiovascular: regular rhythm Respiratory/Chest: rhonchi - bilaterally Abdomen: normal bowel sounds, non tender, soft, no organomegaly, no mass Edema: no edema noted Arm (L), no edema noted Arm (R), no edema noted Leg (L), no edema noted Leg (R), no edema noted Pedal (L), no edema noted Pedal (R), no edema noted Generalized Neurologic: brake lining finisher II-XII grossly normal, alert, responsive Iggy Echavarria MD Aug 19, 2019 07:30
[2019-08-19 08:00] VITALS: BP 162/59
[2019-08-19] MEDS: Tamsulosin 0.4mg cap ORAL SCH ×3 (09:00→18:00)
[2019-08-19] MEDS: LORazepam 0.5mg tab ORAL SCH ×4 (09:00→17:55)
[2019-08-19] MEDS: Docusate 250mg cap ORAL SCH ×2 (09:00→09:07)
[2019-08-19] MEDS: Pantoprazole Inj IVP SCH (09:10)
--- NOTE | 2019-08-19 09:30 | NUR ---
NURSE NOTES: Patient refused to take morning medications. RN attempted to educate to no avail. Patient became combative. Charge nurse aware.
--- NOTE | 2019-08-19 09:56 | NUR ---
OPTICAL INSTRUMENT ASSEMBLER NOTE VOICEMAIL RECEIVED FROM SUSAN AT [facility] WITH REQUEST TO CALL BACK IN RE TO PLACEMENT CALL MADE TO SUSAN AT [phone]. NO ANSWER. LEFT VM. Addendum: 08/19/19 at 1505 by LIV SOSA LVN LVN CALL BACK RECEIVED FROM SUSAN AT [facility]. PER SUSAN, WILL FAX LIST OF CONTRACTED SNF'S TO REFER PATIENT. WILL FOLLOW UP.
--- NOTE | 2019-08-19 10:22 | Nephrology Progress Note ---
Assessment/Plan Problem List: (1) Renal failure (ARF), acute on chronic Assessment: Serum creatinine started rising again (2) Falls frequently (3) UTI (urinary tract infection) Assessment: and hematuria (4) Anemia (5) Dehydration (6) Encephalopathy due to metabolic factor or toxin Assessment Frequent falls Acute renal failure with underlying dehydration Anemia, underlying etiology unclear UTI (urinary tract infection) Toxic metabolic encephalopathy Plan Today's labs reviewed serum creatinine stabilizing Potassium supplement Increase Flomax to twice daily Correct electrolytes as needed Transfusion as needed Low IV hydration 2D echocardiogram ejection fraction 60% Kidney ultrasound pending results Monitor renal parameters Avoid nephrotoxics Antibiotics for UTI Continue per consultants Subjective ROS Limited/Unobtainable: No Constitutional: Reports: malaise, weakness Objective Objective Last 24 Hour Vital Signs Date Time Temp Pulse Resp B/P (MAP) Pulse Ox O2 Delivery O2 Flow Rate FiO2 08/19/19 08:00 98.0 55 17 162/59 (93) 98 08/19/19 06:09 130/60 08/19/19 06:09 130/60 08/19/19 04:00 98.5 71 18 130/50 (76) 95 08/19/19 00:00 98.7 75 18 131/62 (85) 95 08/18/19 21:04 131/58 08/18/19 21:00 Nasal Cannula 1.0 08/18/19 20:00 98.4 70 18 131/58 (82) 95 08/18/19 18:07 138/54 08/18/19 18:07 83 138/54 08/18/19 16:00 98.0 83 20 138/54 (82) 97 08/18/19 13:19 128/70 08/18/19 13:19 128/70 08/18/19 12:00 98.1 67 19 128/70 (89) 97 Intake and Output 08/18/19 08/19/19 19:00 07:00 Intake Total 360 ml 725 ml Balance 360 ml 725 ml Intake Oral 360 ml IV Total 725 ml # Voids 3 2 # Bowel Movements 1 Laboratory Tests 08/19/19 06:20: White Blood Count 6.6, Red Blood Count 3.18L, Hemoglobin 9.4L, Hematocrit 28.5L , Mean Corpuscular Volume 90, Mean Corpuscular Hemoglobin 29.7, Mean Corpuscular Hemoglobin Concent 33.1, Red Cell Distribution Width 14.9H, Platelet Count 223, Mean Platelet Volume 5.8L, Neutrophils (%) (Auto) 79.1H, Lymphocytes (%) (Auto) 8.0L, Monocytes (%) (Auto) 7.9, Eosinophils (%) (Auto) 4.5H, Basophils (%) (Auto) 0.6, Sodium Level 143, Potassium Level 3.2L, Chloride Level 108H, Carbon Dioxide Level 28, Anion Gap 7, Blood Urea Nitrogen 32H, Creatinine 2.4H, Estimat Glomerular Filtration Rate 25.9, Glucose Level 141H, Calcium Level 9.4, Magnesium Level 2.1 Height (Feet): 5 Height (Inches): 6.00 Weight (Pounds): 110 General Appearance: no apparent distress, lethargic Cardiovascular: normal rate Respiratory/Chest: decreased breath sounds Abdomen: soft, distended Objective No change Juan Jade MD Aug 19, 2019 10:22
--- NOTE | 2019-08-19 10:23 | Pulmonology Progress Note ---
Assessment/Plan Assessment/Plan IMPRESSION: 1. Pleural effusions, small bilateral. 2. Atelectasis. 3. Pulmonary edema, questionable. 4. Hypertension. 5. Hyperlipidemia. DISCUSSION: The patient is saturating well on room air or low flow O2. 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 no new recommendations Kimani Hahn M.D. Subjective Interval Events: None new Constitutional: Reports: no symptoms HEENT: Repors: no symptoms Respiratory: Reports: no symptoms Cardiovascular: Reports: no symptoms Allergies: Coded Allergies: No Known Allergies (Unverified , 06/05/19) Objective Last 24 Hour Vital Signs Date Time Temp Pulse Resp B/P (MAP) Pulse Ox O2 Delivery O2 Flow Rate FiO2 08/19/19 08:00 98.0 55 17 162/59 (93) 98 08/19/19 06:09 130/60 08/19/19 06:09 130/60 08/19/19 04:00 98.5 71 18 130/50 (76) 95 08/19/19 00:00 98.7 75 18 131/62 (85) 95 08/18/19 21:04 131/58 08/18/19 21:00 Nasal Cannula 1.0 08/18/19 20:00 98.4 70 18 131/58 (82) 95 08/18/19 18:07 138/54 08/18/19 18:07 83 138/54 08/18/19 16:00 98.0 83 20 138/54 (82) 97 08/18/19 13:19 128/70 08/18/19 13:19 128/70 08/18/19 12:00 98.1 67 19 128/70 (89) 97 Intake and Output 08/18/19 08/19/19 19:00 07:00 Intake Total 360 ml 725 ml Balance 360 ml 725 ml Intake Oral 360 ml IV Total 725 ml # Voids 3 2 # Bowel Movements 1 General Appearance: no acute distress HEENT: normocephalic Respiratory/Chest: chest wall non-tender Cardiovascular: normal peripheral pulses Laboratory Tests 08/19/19 06:20: White Blood Count 6.6, Red Blood Count 3.18L, Hemoglobin 9.4L, Hematocrit 28.5L , Mean Corpuscular Volume 90, Mean Corpuscular Hemoglobin 29.7, Mean Corpuscular Hemoglobin Concent 33.1, Red Cell Distribution Width 14.9H, Platelet Count 223, Mean Platelet Volume 5.8L, Neutrophils (%) (Auto) 79.1H, Lymphocytes (%) (Auto) 8.0L, Monocytes (%) (Auto) 7.9, Eosinophils (%) (Auto) 4.5H, Basophils (%) (Auto) 0.6, Sodium Level 143, Potassium Level 3.2L, Chloride Level 108H, Carbon Dioxide Level 28, Anion Gap 7, Blood Urea Nitrogen 32H, Creatinine 2.4H, Estimat Glomerular Filtration Rate 25.9, Glucose Level 141H, Calcium Level 9.4, Magnesium Level 2.1 Current Medications Medications (Trade) Dose Ordered Sig/Kristine Route PRN Reason Start Time Stop Time Status Last Admin Dose Admin Acetaminophen (Tylenol) 500 mg Q6H PRN ORAL Mild Pain/Temp > 100.5 08/16/19 03:00 09/05/19 08:55 08/18/19 22:28 Dextrose 1,000 ml @ 100 mls/hr Q10H IV 08/18/19 17:45 09/17/19 17:44 08/19/19 04:03 Docusate Sodium (Colace) 250 mg DAILY ORAL 08/16/19 09:00 09/05/19 08:59 08/18/19 08:28 Escitalopram Oxalate (Lexapro) 10 mg DAILY ORAL 08/18/19 09:00 09/17/19 08:59 08/18/19 08:28 Finasteride (Proscar) 5 mg DAILY ORAL 08/16/19 09:00 11/05/19 15:44 08/18/19 08:28 Hydralazine HCl (Apresoline) 75 mg EVERY 8 HOURS ORAL 08/16/19 06:00 11/13/19 05:59 08/19/19 06:09 Lorazepam (Ativan 2mg/ml 1ml) 1 mg Q4H PRN IV For Anxiety or agitation 08/16/19 03:15 08/21/19 07:14 08/16/19 15:55 Lorazepam (Ativan) 0.5 mg TID ORAL 08/18/19 13:00 08/25/19 12:59 08/18/19 18:06 Magnesium Hydroxide (Mom) 30 ml TIDPRN PRN ORAL Constipation 08/19/19 05:45 09/18/19 05:44 Nifedipine (Procardia XL) 30 mg BID ORAL 08/16/19 09:00 09/05/19 17:59 08/18/19 18:07 Nitroglycerin (Nitro-Bid) 1 inch Q6HR@0600,1200,1800 TOPIC 08/16/19 06:00 09/11/19 06:59 08/19/19 06:09 Pantoprazole (Protonix) 40 mg DAILY IVP 08/19/19 09:00 09/05/19 08:59 08/19/19 09:10 Potassium Chloride 100 ml @ 100 mls/hr Q1HR IVPB 08/19/19 10:15 08/19/19 11:59 Risperidone (RisperDAL) 2 mg BEDTIME ORAL 08/16/19 21:00 09/29/19 20:59 08/18/19 21:04 Sennosides (Senokot) 8.6 mg BEDTIME ORAL 08/16/19 21:00 09/05/19 20:59 08/18/19 21:04 Tamsulosin HCl (Flomax) 0.4 mg BID ORAL 08/18/19 18:00 09/05/19 20:59 08/18/19 18:06 Kimani Hahn MD Aug 19, 2019 10:23
--- NOTE | 2019-08-19 11:29 | NUR ---
*-*INSURANCE*-* UPDATED CLINICALS AND REVIEWS HAVE BEEN FAXED TO: D[facility] F: [phone] REF# [id number]
[2019-08-19 12:00] VITALS: BP 157/61
--- NOTE | 2019-08-19 13:39 | Urology Progress Note ---
Assessment/Plan Status: stable, progressing, not improved Assessment/Plan: 1. Gross hematuria, presumably secondary to Doshi trauma. 2. BPH. 3. Urinary retention. 4. Neurogenic bladder. 5. Pyuria. 6. Proteinuria. 7. Renal insufficiency, which appears to be acute on chronic. 8. Rule out urethral stricture. monitor clinically doshi removed cont flomax and proscar s/p abx off anticoagulation, resume soon? restraints PRN cysto at some point monitor PVR and reinsert doshi PRN Subjective Allergies: Coded Allergies: No Known Allergies (Unverified , 06/05/19) Subjective all noted, confused, doshi out, incontinent, urine reported clearing pt refused some meds Objective Last 24 Hour Vital Signs Date Time Temp Pulse Resp B/P (MAP) Pulse Ox O2 Delivery O2 Flow Rate FiO2 08/19/19 11:46 162/59 08/19/19 09:00 Room Air 08/19/19 08:00 98.0 55 17 162/59 (93) 98 08/19/19 06:09 130/60 08/19/19 06:09 130/60 08/19/19 04:00 98.5 71 18 130/50 (76) 95 08/19/19 00:00 98.7 75 18 131/62 (85) 95 08/18/19 21:04 131/58 08/18/19 21:00 Nasal Cannula 1.0 08/18/19 20:00 98.4 70 18 131/58 (82) 95 08/18/19 18:07 138/54 08/18/19 18:07 83 138/54 08/18/19 16:00 98.0 83 20 138/54 (82) 97 Intake and Output 08/18/19 08/19/19 19:00 07:00 Intake Total 360 ml 825 ml Balance 360 ml 825 ml Intake Oral 360 ml IV Total 825 ml # Voids 3 2 # Bowel Movements 1 Microbiology Date/Time Source Procedure Growth Status 08/06/19 04:45 Nasal Nares - Final Complete 08/06/19 04:45 Nasal Nares - Final Complete 08/06/19 04:45 Rectum VRE Culture - Final NO VANCOMYCIN RESISTANT ENTEROCOCCUS ... Complete Current Medications Medications (Trade) Dose Ordered Sig/Kristine Route PRN Reason Start Time Stop Time Status Last Admin Dose Admin Acetaminophen (Tylenol) 500 mg Q6H PRN ORAL Mild Pain/Temp > 100.5 08/16/19 03:00 09/05/19 08:55 08/18/19 22:28 Dextrose 1,000 ml @ 100 mls/hr Q10H IV 08/18/19 17:45 09/17/19 17:44 08/19/19 04:03 Docusate Sodium (Colace) 250 mg DAILY ORAL 08/16/19 09:00 09/05/19 08:59 08/18/19 08:28 Escitalopram Oxalate (Lexapro) 10 mg DAILY ORAL 08/18/19 09:00 09/17/19 08:59 08/18/19 08:28 Finasteride (Proscar) 5 mg DAILY ORAL 08/16/19 09:00 11/05/19 15:44 08/18/19 08:28 Hydralazine HCl (Apresoline) 75 mg EVERY 8 HOURS ORAL 08/16/19 06:00 11/13/19 05:59 08/19/19 06:09 Lorazepam (Ativan 2mg/ml 1ml) 1 mg Q4H PRN IV For Anxiety or agitation 08/16/19 03:15 08/21/19 07:14 08/16/19 15:55 Lorazepam (Ativan) 0.5 mg TID ORAL 08/18/19 13:00 08/25/19 12:59 08/18/19 18:06 Magnesium Hydroxide (Mom) 30 ml TIDPRN PRN ORAL Constipation 08/19/19 05:45 09/18/19 05:44 Nifedipine (Procardia XL) 30 mg BID ORAL 08/16/19 09:00 09/05/19 17:59 08/18/19 18:07 Nitroglycerin (Nitro-Bid) 1 inch Q6HR@0600,1200,1800 TOPIC 08/16/19 06:00 09/11/19 06:59 08/19/19 11:46 Pantoprazole (Protonix) 40 mg DAILY IVP 08/19/19 09:00 09/05/19 08:59 08/19/19 09:10 Risperidone (RisperDAL) 2 mg BEDTIME ORAL 08/16/19 21:00 09/29/19 20:59 08/18/19 21:04 Sennosides (Senokot) 8.6 mg BEDTIME ORAL 08/16/19 21:00 09/05/19 20:59 08/18/19 21:04 Tamsulosin HCl (Flomax) 0.4 mg BID ORAL 08/18/19 18:00 09/05/19 20:59 08/18/19 18:06 Laboratory Tests 08/19/19 06:20: White Blood Count 6.6, Red Blood Count 3.18L, Hemoglobin 9.4L, Hematocrit 28.5L , Mean Corpuscular Volume 90, Mean Corpuscular Hemoglobin 29.7, Mean Corpuscular Hemoglobin Concent 33.1, Red Cell Distribution Width 14.9H, Platelet Count 223, Mean Platelet Volume 5.8L, Neutrophils (%) (Auto) 79.1H, Lymphocytes (%) (Auto) 8.0L, Monocytes (%) (Auto) 7.9, Eosinophils (%) (Auto) 4.5H, Basophils (%) (Auto) 0.6, Sodium Level 143, Potassium Level 3.2L, Chloride Level 108H, Carbon Dioxide Level 28, Anion Gap 7, Blood Urea Nitrogen 32H, Creatinine 2.4H, Estimat Glomerular Filtration Rate 25.9, Glucose Level 141H, Calcium Level 9.4, Magnesium Level 2.1 Height (Feet): 5 Height (Inches): 6.00 Weight (Pounds): 110 Objective exam stable abdomen soft MumtazshMiki morrow MD Aug 19, 2019 13:39
--- NOTE | 2019-08-19 14:15 | NUR ---
P.T. NOTES S/P: APPROACHED PATIENT IN THE PM. OK W/RN TO WORK W/PATIENT TODAY. HOWEVER PATIENT DECLINED P.T. TX. PATIENT STATED, IN PERSIAN, "NO, NADA." PATIENT DEFIANTLY REFUSING P.T. SERVICE @ THIS TIME. NOTIFIED RN. OF PATIENT'S STATUS. WILL F/U NEXT TX. TIME AND CONT WITH P.T. PLAN. RSABADO.
--- NOTE | 2019-08-19 15:12 | NUR ---
CASE MANAGEMENT:REVIEW SI;AC/CHR RENAL FAILURE. ENCEPHALOPATHY. UTI. ANEMIA. 98.7 55 18 162/59 95% ON RA H/H 9.4/28.5 K+ 3.2 BUN 32 CR 2.4 IS;K-CL IV ATIVAN PO TID RISPERDAL PO HS FLOMAX PO BID PROTONIX IV QD MED SURG STATUS DCP;FROM [facility] NURSING HOME PLAN;SNF PLACEMENT SUSAN @ [facility] AWARE OF SNF NEED PATIENT HAS BEEN REFERRED TO; [facility]
[2019-08-19 16:00] VITALS: BP 165/65
--- NOTE | 2019-08-19 19:05 | NUR ---
NURSE NOTES: Pt. received from LUIS FERNANDO Saldana. Pt. sleeping in bed, on room air, breathing is even and unlabored, no indications of pain at this time. IV right FA 22g, intact, with D5W 100cc/hr. Bed is low and locked, side rails x3 up, bed alarm active, and call light in reach. Pt. endorsed as fall risk, safety measures in place and will continue to monitor.
--- NOTE | 2019-08-19 19:09 | NUR ---
HAND-OFF: Report given to LUIS FERNANDO Sy.
[2019-08-19 20:00] VITALS: BP 150/56
[2019-08-19] MEDS: Sennosides 8.6mg tab ORAL SCH ×2 (21:19→21:30)
--- NOTE | 2019-08-19 21:30 | NUR ---
NURSE NOTES: Attempted to administer 2100 and 2200 medications crushed in apple sauce. Pt. pocketing and eventually spitting medication out, refusing to take. Pt. is non-compliant and non-combative at this time. Attempted to educate the pt. but pt. is confused, AAOx1 to self, and unable to verbalize understanding despite education on risks. Charge nurse is aware, will continue to monitor.
--- NOTE | 2019-08-19 21:42 | Psych Consult Progress Note ---
Psychiatry Progress Note Psychiatry Progress Note Medications Current Medications Medications (Trade) Dose Ordered Sig/Kristine Route PRN Reason Start Time Stop Time Status Last Admin Dose Admin Acetaminophen (Tylenol) 500 mg Q6H PRN ORAL Mild Pain/Temp > 100.5 08/16/19 03:00 09/05/19 08:55 08/18/19 22:28 Dextrose 1,000 ml @ 100 mls/hr Q10H IV 08/18/19 17:45 09/17/19 17:44 08/19/19 14:35 Docusate Sodium (Colace) 250 mg DAILY ORAL 08/16/19 09:00 09/05/19 08:59 08/18/19 08:28 Escitalopram Oxalate (Lexapro) 10 mg DAILY ORAL 08/18/19 09:00 09/17/19 08:59 08/18/19 08:28 Finasteride (Proscar) 5 mg DAILY ORAL 08/16/19 09:00 11/05/19 15:44 08/18/19 08:28 Hydralazine HCl (Apresoline) 75 mg EVERY 8 HOURS ORAL 08/16/19 06:00 11/13/19 05:59 08/19/19 21:20 Lorazepam (Ativan 2mg/ml 1ml) 1 mg Q4H PRN IV For Anxiety or agitation 08/16/19 03:15 08/21/19 07:14 08/16/19 15:55 Lorazepam (Ativan) 0.5 mg TID ORAL 08/18/19 13:00 08/25/19 12:59 08/18/19 18:06 Magnesium Hydroxide (Mom) 30 ml TIDPRN PRN ORAL Constipation 08/19/19 05:45 09/18/19 05:44 Nifedipine (Procardia XL) 30 mg BID ORAL 08/16/19 09:00 09/05/19 17:59 08/19/19 18:00 Nitroglycerin (Nitro-Bid) 1 inch Q6HR@0600,1200,1800 TOPIC 08/16/19 06:00 09/11/19 06:59 08/19/19 18:01 Pantoprazole (Protonix) 40 mg DAILY IVP 08/19/19 09:00 09/05/19 08:59 08/19/19 09:10 Risperidone (RisperDAL) 2 mg BEDTIME ORAL 08/16/19 21:00 09/29/19 20:59 08/19/19 21:18 Sennosides (Senokot) 8.6 mg BEDTIME ORAL 08/16/19 21:00 09/05/19 20:59 08/19/19 21:19 Tamsulosin HCl (Flomax) 0.4 mg BID ORAL 08/18/19 18:00 09/05/19 20:59 08/19/19 18:00 Allergies: Coded Allergies: No Known Allergies (Unverified , 06/05/19) Objective Data Height (Feet): 5 Height (Inches): 6.00 Weight (Pounds): 110 Assessment/Plan Problem List: (1) Encephalopathy due to metabolic factor or toxin Assessment & Plan: 2. Psychotic disorder. SNOMED: 177854887 Status: stable, progressing, not improved Assessment/Plan: PLAN: 1. lexapro 2. risperidone. 3. Continue to follow and readjust the medications. Loco Luu MD Aug 19, 2019 21:42
[2019-08-20] VITALS (7 sets, daily range): BP systolic 122–168; BP diastolic 45–93
--- NOTE | 2019-08-20 02:14 | Progress Note ---
DATE: 08/19/2019 CARDIOLOGY PROGRESS NOTE SUBJECTIVE: The patient is still more cooperative with care. Following commands and accepting therapies from staff. Monitored rhythm junctional. No bradycardic episodes. OBJECTIVE: VITAL SIGNS: Blood pressure 130/60, pulse 70, respiratory rate 18. LUNGS: Clear. CARDIAC: Regular rhythm and rate. Normal S1 and S2 with a 1/6 systolic apical murmur. ABDOMEN: Soft. EXTREMITIES: No edema. LABORATORY DATA: White count 6.6 and hemoglobin 9.4. Potassium 3.2, BUN 32, creatinine 2.4, and magnesium 2.1. IMPRESSION: 1. Hypokalemia. 2. Acute on chronic diastolic congestive heart failure. 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 4. Pulmonary hypertension. 5. Status post mitral valve replacement. 6. Metabolic encephalopathy. 7. Recovered dehydration and hypernatremia. PLANS: 1. Discontinue IV fluids. 2. Hold diuretics. 3. Maintain antihypertensives. 4. Replace potassium as needed. Gamaliel Salas M.D. DR: ANDRE JOB#: [id number] CC:
--- NOTE | 2019-08-20 03:50 | NUR ---
NURSE NOTES: Pt.'s wound dressings changed: sacral, bilateral heels. Wound pictures taken, pt. tolerated well and able to assist in positioning. Will continue to monitor.
[2019-08-20] MEDS: HydrALAZINE 50mg tab ORAL SCH ×3 (06:16→21:03)
[2019-08-20] MEDS: Nitroglycerin 2% oint pkt TOPIC SCH ×3 (06:16→18:00)
--- NOTE | 2019-08-20 07:28 | NUR ---
NURSE NOTES: Received report from LUIS FERNANDO Sy. Patient sleeping. IV intact, patent, and saline locked. Bed in lowest position with call light in reach. Side rails up x3. Will continue with plan of care.
--- NOTE | 2019-08-20 07:30 | NUR ---
HAND-OFF: Report given to LUIS FERNANDO Saldana.
[2019-08-20] MEDS: LORazepam 0.5mg tab ORAL SCH ×3 (09:00→18:00)
[2019-08-20] MEDS: Docusate 250mg cap ORAL SCH (10:08)
[2019-08-20] MEDS: Tamsulosin 0.4mg cap ORAL SCH ×2 (10:08→18:00)
[2019-08-20] MEDS: Pantoprazole Inj IVP SCH (10:08)
[2019-08-20] MEDS ORDERED: Tubing IV Secondary IV ONE ×2 (10:15→10:34)
--- NOTE | 2019-08-20 10:23 | Nephrology Progress Note ---
Assessment/Plan Problem List: (1) Renal failure (ARF), acute on chronic Assessment: Serum creatinine started rising again (2) Falls frequently (3) UTI (urinary tract infection) Assessment: and hematuria (4) Anemia (5) Dehydration (6) Encephalopathy due to metabolic factor or toxin Assessment Frequent falls Acute renal failure with underlying dehydration Anemia, underlying etiology unclear UTI (urinary tract infection) Toxic metabolic encephalopathy Plan Will check lab tomorrow Increase Flomax to twice daily Correct electrolytes as needed Transfusion as needed Low IV hydration 2D echocardiogram ejection fraction 60% Kidney ultrasound pending results Monitor renal parameters Avoid nephrotoxics Antibiotics for UTI Continue per consultants Subjective ROS Limited/Unobtainable: No Constitutional: Reports: malaise Objective Objective Last 24 Hour Vital Signs Date Time Temp Pulse Resp B/P (MAP) Pulse Ox O2 Delivery O2 Flow Rate FiO2 08/20/19 10:08 65 168/93 08/20/19 08:00 97.8 65 17 168/93 (118) 98 08/20/19 06:16 149/54 08/20/19 06:16 149/54 08/20/19 04:00 98.6 90 20 149/54 (85) 94 08/20/19 00:00 98.4 86 20 130/80 (97) 94 08/19/19 21:00 Room Air 08/19/19 20:00 98.0 83 18 150/56 (87) 95 08/19/19 18:01 165/65 08/19/19 18:00 79 165/65 08/19/19 16:00 98.7 79 18 165/65 (98) 96 08/19/19 14:35 157/61 08/19/19 12:00 98.3 65 19 157/61 (93) 97 08/19/19 11:46 162/59 Intake and Output 08/19/19 08/20/19 19:00 07:00 Intake Total 900 ml 700 ml Balance 900 ml 700 ml IV Total 900 ml 500 ml Other 200 ml # Voids 2 # Bowel Movements 1 No labs drawn today Height (Feet): 5 Height (Inches): 6.00 Weight (Pounds): 110 General Appearance: no apparent distress Respiratory/Chest: decreased breath sounds Abdomen: soft Objective No change Juan Jade MD Aug 20, 2019 10:23
--- NOTE | 2019-08-20 11:24 | General Progress Note ---
Assessment/Plan Problem List: (1) CHF (congestive heart failure) ICD Codes: I50.9 - Heart failure, unspecified SNOMED: 04572800 (2) Renal failure (ARF), acute on chronic ICD Codes: N17.9 - Acute kidney failure, unspecified; N18.9 - Chronic kidney disease, unspecified SNOMED: 392184313 (3) Encephalopathy due to metabolic factor or toxin SNOMED: 168871212 (4) Gross hematuria ICD Codes: R31.0 - Gross hematuria SNOMED: 268758806 (5) Falls frequently ICD Codes: R29.6 - Repeated falls SNOMED: 401141252 (6) Dehydration ICD Codes: E86.0 - Dehydration SNOMED: 46064444 (7) UTI (urinary tract infection) ICD Codes: N39.0 - Urinary tract infection, site not specified SNOMED: 23355461 (8) Anemia ICD Codes: D64.9 - Anemia, unspecified SNOMED: 733327679 Status: stable, progressing, not improved Assessment/Plan: off restraints. cardiac rx check room air o2 sat pt/ot dc planning to snf once bed found at accepting snf Subjective ROS Limited/Unobtainable: No Constitutional: Reports: malaise, weakness HEENT: Reports: no symptoms Cardiovascular: Reports: no symptoms Respiratory: Reports: no symptoms Gastrointestinal/Abdominal: Reports: no symptoms Neurologic/Psychiatric: Reports: anxiety Endocrine: Reports: no symptoms Hematologic/Lymphatic: Reports: anemia Allergies: Coded Allergies: No Known Allergies (Unverified , 06/05/19) All Systems: reviewed and negative except above Subjective no events. better this morning. more cooperative with care. pulls of o2. Rn is going to check room air o2 sat. restraints removed. Objective Last 24 Hour Vital Signs Date Time Temp Pulse Resp B/P (MAP) Pulse Ox O2 Delivery O2 Flow Rate FiO2 08/20/19 10:08 65 168/93 08/20/19 08:00 97.8 65 17 168/93 (118) 98 08/20/19 06:16 149/54 08/20/19 06:16 149/54 08/20/19 04:00 98.6 90 20 149/54 (85) 94 08/20/19 00:00 98.4 86 20 130/80 (97) 94 08/19/19 21:00 Room Air 08/19/19 20:00 98.0 83 18 150/56 (87) 95 08/19/19 18:01 165/65 08/19/19 18:00 79 165/65 08/19/19 16:00 98.7 79 18 165/65 (98) 96 08/19/19 14:35 157/61 08/19/19 12:00 98.3 65 19 157/61 (93) 97 08/19/19 11:46 162/59 Intake and Output 08/19/19 08/20/19 19:00 07:00 Intake Total 900 ml 700 ml Balance 900 ml 700 ml IV Total 900 ml 500 ml Other 200 ml # Voids 2 # Bowel Movements 1 Height (Feet): 5 Height (Inches): 6.00 Weight (Pounds): 110 Objective General Appearance: WD/WN, alert, confused Neck: supple Cardiovascular: regular rhythm Respiratory/Chest: rhonchi - bilaterally Abdomen: normal bowel sounds, non tender, soft, no organomegaly, no mass Edema: no edema noted Arm (L), no edema noted Arm (R), no edema noted Leg (L), no edema noted Leg (R), no edema noted Pedal (L), no edema noted Pedal (R), no edema noted Generalized Neurologic: beam dyer recessed vat II-XII grossly normal, alert, responsive Iggy Echavarria MD Aug 20, 2019 11:24
--- NOTE | 2019-08-20 11:45 | Urology Progress Note ---
Assessment/Plan Status: stable, progressing, not improved Assessment/Plan: 1. Gross hematuria, presumably secondary to Doshi trauma. 2. BPH. 3. Urinary retention. 4. Neurogenic bladder. 5. Pyuria. 6. Proteinuria. 7. Renal insufficiency, which appears to be acute on chronic. 8. Rule out urethral stricture. monitor clinically doshi removed cont flomax and proscar s/p abx off anticoagulation, resume soon? restraints PRN cysto at some point monitor PVR and reinsert doshi PRN Subjective Allergies: Coded Allergies: No Known Allergies (Unverified , 06/05/19) Subjective all noted, confused, doshi out, incontinent, urine reported clearing Objective Last 24 Hour Vital Signs Date Time Temp Pulse Resp B/P (MAP) Pulse Ox O2 Delivery O2 Flow Rate FiO2 08/20/19 10:08 65 168/93 08/20/19 09:00 Room Air 08/20/19 08:00 97.8 65 17 168/93 (118) 98 08/20/19 06:16 149/54 08/20/19 06:16 149/54 08/20/19 04:00 98.6 90 20 149/54 (85) 94 08/20/19 00:00 98.4 86 20 130/80 (97) 94 08/19/19 21:00 Room Air 08/19/19 20:00 98.0 83 18 150/56 (87) 95 08/19/19 18:01 165/65 08/19/19 18:00 79 165/65 08/19/19 16:00 98.7 79 18 165/65 (98) 96 08/19/19 14:35 157/61 08/19/19 12:00 98.3 65 19 157/61 (93) 97 08/19/19 11:46 162/59 Intake and Output 08/19/19 08/20/19 19:00 07:00 Intake Total 900 ml 700 ml Balance 900 ml 700 ml IV Total 900 ml 500 ml Other 200 ml # Voids 2 # Bowel Movements 1 Microbiology Date/Time Source Procedure Growth Status 08/06/19 04:45 Nasal Nares - Final Complete 08/06/19 04:45 Nasal Nares - Final Complete 08/06/19 04:45 Rectum VRE Culture - Final NO VANCOMYCIN RESISTANT ENTEROCOCCUS ... Complete Current Medications Medications (Trade) Dose Ordered Sig/Kristine Route PRN Reason Start Time Stop Time Status Last Admin Dose Admin Acetaminophen (Tylenol) 500 mg Q6H PRN ORAL Mild Pain/Temp > 100.5 08/16/19 03:00 09/05/19 08:55 08/18/19 22:28 Docusate Sodium (Colace) 250 mg DAILY ORAL 08/16/19 09:00 09/05/19 08:59 08/20/19 10:08 Escitalopram Oxalate (Lexapro) 10 mg DAILY ORAL 08/18/19 09:00 09/17/19 08:59 08/20/19 10:08 Finasteride (Proscar) 5 mg DAILY ORAL 08/16/19 09:00 11/05/19 15:44 08/20/19 10:08 Hydralazine HCl (Apresoline) 75 mg EVERY 8 HOURS ORAL 08/16/19 06:00 11/13/19 05:59 08/20/19 06:16 Lorazepam (Ativan 2mg/ml 1ml) 1 mg Q4H PRN IV For Anxiety or agitation 08/16/19 03:15 08/21/19 07:14 08/16/19 15:55 Lorazepam (Ativan) 0.5 mg TID ORAL 08/18/19 13:00 08/25/19 12:59 08/18/19 18:06 Magnesium Hydroxide (Mom) 30 ml TIDPRN PRN ORAL Constipation 08/19/19 05:45 09/18/19 05:44 Nifedipine (Procardia XL) 30 mg BID ORAL 08/16/19 09:00 09/05/19 17:59 08/20/19 10:08 Nitroglycerin (Nitro-Bid) 1 inch Q6HR@0600,1200,1800 TOPIC 08/16/19 06:00 09/11/19 06:59 08/20/19 06:16 Pantoprazole (Protonix) 40 mg DAILY IVP 08/19/19 09:00 09/05/19 08:59 08/20/19 10:08 Risperidone (RisperDAL) 2 mg BEDTIME ORAL 08/16/19 21:00 09/29/19 20:59 08/18/19 21:04 Sennosides (Senokot) 8.6 mg BEDTIME ORAL 08/16/19 21:00 09/05/19 20:59 08/18/19 21:04 Tamsulosin HCl (Flomax) 0.4 mg BID ORAL 08/18/19 18:00 09/05/19 20:59 08/20/19 10:08 Height (Feet): 5 Height (Inches): 6.00 Weight (Pounds): 110 Objective exam stable abdomen soft Miki Calzada MD Aug 20, 2019 11:45
--- NOTE | 2019-08-20 11:59 | Pulmonology Progress Note ---
Assessment/Plan Assessment/Plan IMPRESSION: 1. Pleural effusions, small bilateral. 2. Atelectasis. 3. Pulmonary edema, questionable. 4. Hypertension. 5. Hyperlipidemia. DISCUSSION: The patient is saturating well on room air or low flow O2. 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 no new recommendations Kimani Hahn M.D. Subjective Interval Events: None new Constitutional: Reports: no symptoms HEENT: Repors: no symptoms Respiratory: Reports: no symptoms Cardiovascular: Reports: no symptoms Gastrointestinal/Abdominal: Reports: no symptoms Genitourinary: Reports: no symptoms Allergies: Coded Allergies: No Known Allergies (Unverified , 06/05/19) Objective Last 24 Hour Vital Signs Date Time Temp Pulse Resp B/P (MAP) Pulse Ox O2 Delivery O2 Flow Rate FiO2 08/20/19 10:08 65 168/93 08/20/19 09:00 Room Air 08/20/19 08:00 97.8 65 17 168/93 (118) 98 08/20/19 06:16 149/54 08/20/19 06:16 149/54 08/20/19 04:00 98.6 90 20 149/54 (85) 94 08/20/19 00:00 98.4 86 20 130/80 (97) 94 08/19/19 21:00 Room Air 08/19/19 20:00 98.0 83 18 150/56 (87) 95 08/19/19 18:01 165/65 08/19/19 18:00 79 165/65 08/19/19 16:00 98.7 79 18 165/65 (98) 96 08/19/19 14:35 157/61 08/19/19 12:00 98.3 65 19 157/61 (93) 97 Intake and Output 08/19/19 08/20/19 19:00 07:00 Intake Total 900 ml 700 ml Balance 900 ml 700 ml IV Total 900 ml 500 ml Other 200 ml # Voids 2 # Bowel Movements 1 General Appearance: no acute distress HEENT: normocephalic Respiratory/Chest: chest wall non-tender Cardiovascular: normal peripheral pulses, normal rate Abdomen: normal bowel sounds Current Medications Medications (Trade) Dose Ordered Sig/Kristine Route PRN Reason Start Time Stop Time Status Last Admin Dose Admin Acetaminophen (Tylenol) 500 mg Q6H PRN ORAL Mild Pain/Temp > 100.5 08/16/19 03:00 09/05/19 08:55 08/18/19 22:28 Docusate Sodium (Colace) 250 mg DAILY ORAL 08/16/19 09:00 09/05/19 08:59 08/20/19 10:08 Escitalopram Oxalate (Lexapro) 10 mg DAILY ORAL 08/18/19 09:00 09/17/19 08:59 08/20/19 10:08 Finasteride (Proscar) 5 mg DAILY ORAL 08/16/19 09:00 11/05/19 15:44 08/20/19 10:08 Hydralazine HCl (Apresoline) 75 mg EVERY 8 HOURS ORAL 08/16/19 06:00 11/13/19 05:59 08/20/19 06:16 Lorazepam (Ativan 2mg/ml 1ml) 1 mg Q4H PRN IV For Anxiety or agitation 08/16/19 03:15 08/21/19 07:14 08/16/19 15:55 Lorazepam (Ativan) 0.5 mg TID ORAL 08/18/19 13:00 08/25/19 12:59 08/18/19 18:06 Magnesium Hydroxide (Mom) 30 ml TIDPRN PRN ORAL Constipation 08/19/19 05:45 09/18/19 05:44 Nifedipine (Procardia XL) 30 mg BID ORAL 08/16/19 09:00 09/05/19 17:59 08/20/19 10:08 Nitroglycerin (Nitro-Bid) 1 inch Q6HR@0600,1200,1800 TOPIC 08/16/19 06:00 09/11/19 06:59 08/20/19 06:16 Pantoprazole (Protonix) 40 mg DAILY IVP 08/19/19 09:00 09/05/19 08:59 08/20/19 10:08 Risperidone (RisperDAL) 2 mg BEDTIME ORAL 08/16/19 21:00 09/29/19 20:59 08/18/19 21:04 Sennosides (Senokot) 8.6 mg BEDTIME ORAL 08/16/19 21:00 09/05/19 20:59 08/18/19 21:04 Tamsulosin HCl (Flomax) 0.4 mg BID ORAL 08/18/19 18:00 09/05/19 20:59 08/20/19 10:08 Kimani Hahn MD Aug 20, 2019 11:59
--- NOTE | 2019-08-20 19:20 | NUR ---
HAND-OFF: Report given to LUIS FERNANDO Beavers. Rounds done.
--- NOTE | 2019-08-20 19:30 | NUR ---
NURSE NOTES: Received report from LUIS FERNANDO Saldana. AAO x 1, on room air. Pt confused and fall risk. IV site intact and patent. Fall and aspiration precaution maintained. No acute distress noted. Bed locked, lowest position, alarm on, side rails up, call light within reach. Will continue to monitor.
--- NOTE | 2019-08-20 20:30 | Progress Note ---
DATE: 08/20/2019 CARDIOLOGY PROGRESS NOTE SUBJECTIVE: The patient is more cooperative with care. Restraints have been removed. No respiratory distress. OBJECTIVE: VITAL SIGNS: Blood pressure 168/93, heart rate 65, respiratory rate 17, and afebrile. LUNGS: Bilateral breath sounds. CARDIAC: Regular rhythm and rate. Normal S1, S2. A 1/6 systolic murmur at apex. ABDOMEN: Soft, nontender. EXTREMITIES: No edema. IMPRESSION: 1. Metabolic and toxic encephalopathy. 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 4. Acute on chronic diastolic congestive heart failure. 5. Junctional rhythm with no signs of bradyarrhythmias. 6. Hypertensive heart disease. 7. Severe pulmonary hypertension. PLAN: 1. Recheck laboratory studies. 2. Off IV fluids and diuretics for now. 3. Titrate cardiovascular regimen based on clinical parameters. 4. May need to advance antihypertensive regimen further. We will follow. Gamaliel Salas M.D. DR: Jose JOB#: [id number] CC:
[2019-08-20] MEDS: Sennosides 8.6mg tab ORAL SCH (21:04)
[2019-08-21] VITALS (7 sets, daily range): BP systolic 103–158; BP diastolic 40–65
[2019-08-21] MEDS: HydrALAZINE 50mg tab ORAL SCH ×3 (05:05→21:13)
[2019-08-21] MEDS: Nitroglycerin 2% oint pkt TOPIC SCH ×3 (05:05→17:59)
[2019-08-21 07:05] LABS: BASOPHILS % (AUTO) 0.8 % (0.0-2.0); EOSINOPHILS % (AUTO) 4.2 % (0.0-3.0); HEMOGLOBIN 9.9 G/DL (14.2-18.0); LYMPHOCYTES % (AUTO) 9.5 % (20.0-45.0); MEAN CORPUSCULAR VOLUME 89 FL (80-99); MONOCYTES % (AUTO) 7.1 % (1.0-10.0); NEUTROPHILS % (AUTO) 78.4 % (45.0-75.0); PLATELET COUNT 240 K/UL (150-450); RED BLOOD COUNT 3.36 M/UL (4.70-6.10); WHITE BLOOD COUNT 5.7 K/UL (4.8-10.8)
--- NOTE | 2019-08-21 07:13 | NUR ---
HAND-OFF: Report given to LUIS FERNANDO Saldana.
--- NOTE | 2019-08-21 07:22 | NUR ---
NURSE NOTES: Received report from LUIS FERNANDO Beavers. Patient sleeping. On room air, no signs of distress or labored breathing. IV intact, patent, and saline locked. Bed in lowest position with side rails up x3 and bed alarm on. Will continue with plan of care.
[2019-08-21 08:15] LABS: ALANINE AMINOTRANSFERASE 24 U/L (12-78); ALBUMIN 2.6 G/DL (3.4-5.0); ALBUMIN/GLOBULIN RATIO 0.8 (1.0-2.7); ALKALINE PHOSPHATASE 122 U/L (46-116); ANION GAP 9 mmol/L (5-15); ASPARTATE AMINO TRANSFERASE 27 U/L (15-37); BILIRUBIN,TOTAL 0.4 MG/DL (0.2-1.0); BLOOD UREA NITROGEN 31 mg/dL (7-18); CALCIUM 9.5 MG/DL (8.5-10.1); CARBON DIOXIDE 25 MMOL/L (21-32); CHLORIDE 106 MMOL/L (98-107); CREATININE 2.2 MG/DL (0.55-1.30); PHOSPHORUS 2.9 MG/DL (2.5-4.9); POTASSIUM 3.8 MMOL/L (3.5-5.1); SODIUM 140 MMOL/L (136-145)
[2019-08-21] MEDS: LORazepam 0.5mg tab ORAL SCH ×3 (09:00→17:59)
[2019-08-21] MEDS: Docusate 250mg cap ORAL SCH (09:00)
--- NOTE | 2019-08-21 09:04 | General Progress Note ---
Assessment/Plan Problem List: (1) CHF (congestive heart failure) ICD Codes: I50.9 - Heart failure, unspecified SNOMED: 79829845 (2) Renal failure (ARF), acute on chronic ICD Codes: N17.9 - Acute kidney failure, unspecified; N18.9 - Chronic kidney disease, unspecified SNOMED: 386493577 (3) Encephalopathy due to metabolic factor or toxin SNOMED: 585559873 (4) Gross hematuria ICD Codes: R31.0 - Gross hematuria SNOMED: 061249074 (5) Falls frequently ICD Codes: R29.6 - Repeated falls SNOMED: 936307437 (6) Dehydration ICD Codes: E86.0 - Dehydration SNOMED: 62340691 (7) UTI (urinary tract infection) ICD Codes: N39.0 - Urinary tract infection, site not specified SNOMED: 20822328 (8) Anemia ICD Codes: D64.9 - Anemia, unspecified SNOMED: 867556159 Status: stable, progressing, not improved Assessment/Plan: off restraints. cardiac rx check room air o2 sat pt/ot dc planning to snf once bed found at accepting snf Subjective ROS Limited/Unobtainable: No Constitutional: Reports: malaise, weakness HEENT: Reports: no symptoms Cardiovascular: Reports: no symptoms Respiratory: Reports: no symptoms Gastrointestinal/Abdominal: Reports: no symptoms Genitourinary: Reports: no symptoms Neurologic/Psychiatric: Reports: no symptoms Endocrine: Reports: no symptoms Hematologic/Lymphatic: Reports: no symptoms Allergies: Coded Allergies: No Known Allergies (Unverified , 06/05/19) All Systems: reviewed and negative except above Subjective no events. overall less confused. no cp/sob. more alert. more cooperative. still confused. seems at baseline. labs reviewed Objective Last 24 Hour Vital Signs Date Time Temp Pulse Resp B/P (MAP) Pulse Ox O2 Delivery O2 Flow Rate FiO2 08/21/19 05:05 103/65 08/21/19 05:05 103/65 08/21/19 03:51 97.1 66 20 103/65 (78) 95 08/20/19 23:57 97.5 69 20 132/51 (78) 92 08/20/19 21:03 135/75 08/20/19 21:00 Room Air 08/20/19 20:00 97.0 62 18 122/45 (70) 99 4/4/20 18:00 131/63 08/20/19 18:00 79 131/63 08/20/19 16:00 98.4 79 18 131/63 (85) 99 08/20/19 12:58 134/59 08/20/19 12:00 97.6 73 17 134/59 (84) 98 08/20/19 10:08 65 168/93 Intake and Output 08/20/19 08/21/19 19:00 07:00 # Voids 2 2 # Bowel Movements 4 Laboratory Tests 08/21/19 05:55: White Blood Count 5.7, Red Blood Count 3.36L, Hemoglobin 9.9L, Hematocrit 30.0L , Mean Corpuscular Volume 89, Mean Corpuscular Hemoglobin 29.6, Mean Corpuscular Hemoglobin Concent 33.2, Red Cell Distribution Width 14.0, Platelet Count 240, Mean Platelet Volume 7.2, Neutrophils (%) (Auto) 78.4H, Lymphocytes ( %) (Auto) 9.5L, Monocytes (%) (Auto) 7.1, Eosinophils (%) (Auto) 4.2H, Basophils (%) (Auto) 0.8, Sodium Level 140, Potassium Level 3.8, Chloride Level 106, Carbon Dioxide Level 25, Anion Gap 9, Blood Urea Nitrogen 31H, Creatinine 2.2H, Estimat Glomerular Filtration Rate 28.7, Glucose Level 100, Calcium Level 9.5, Phosphorus Level 2.9, Magnesium Level 2.1, Total Bilirubin 0.4, Aspartate Amino Transf (AST/SGOT) 27, Alanine Aminotransferase (ALT/SGPT) 24, Alkaline Phosphatase 122H, C-Reactive Protein, Quantitative 1.7H, Pro-B-Type Natriuretic Peptide 4850H, Total Protein 5.7L, Albumin 2.6L, Globulin 3.1, Albumin/Globulin Ratio 0.8L Height (Feet): 5 Height (Inches): 6.00 Weight (Pounds): 110 Objective General Appearance: WD/WN, alert, confused Neck: supple Cardiovascular: regular rhythm Respiratory/Chest: rhonchi - bilaterally Abdomen: normal bowel sounds, non tender, soft, no organomegaly, no mass Edema: no edema noted Arm (L), no edema noted Arm (R), no edema noted Leg (L), no edema noted Leg (R), no edema noted Pedal (L), no edema noted Pedal (R), no edema noted 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
--- NOTE | 2019-08-21 09:49 | Urology Progress Note ---
Assessment/Plan Status: stable, progressing, not improved Assessment/Plan: 1. Gross hematuria, presumably secondary to Doshi trauma. 2. BPH. 3. Urinary retention. 4. Neurogenic bladder. 5. Pyuria. 6. Proteinuria. 7. Renal insufficiency, which appears to be acute on chronic. 8. Rule out urethral stricture. monitor clinically doshi removed cont flomax and proscar s/p abx off anticoagulation, resume soon? restraints PRN cysto at some point monitor PVR and reinsert doshi PRN renal imaging Subjective Allergies: Coded Allergies: No Known Allergies (Unverified , 06/05/19) Subjective all noted, confused, doshi out, incontinent, urine reported clearing Objective Last 24 Hour Vital Signs Date Time Temp Pulse Resp B/P (MAP) Pulse Ox O2 Delivery O2 Flow Rate FiO2 08/21/19 05:05 103/65 08/21/19 05:05 103/65 08/21/19 03:51 97.1 66 20 103/65 (78) 95 08/20/19 23:57 97.5 69 20 132/51 (78) 92 08/20/19 21:03 135/75 08/20/19 21:00 Room Air 08/20/19 20:00 97.0 62 18 122/45 (70) 99 08/20/19 18:00 131/63 08/20/19 18:00 79 131/63 08/20/19 16:00 98.4 79 18 131/63 (85) 99 08/20/19 12:58 134/59 08/20/19 12:00 97.6 73 17 134/59 (84) 98 08/20/19 10:08 65 168/93 Intake and Output 08/20/19 08/21/19 19:00 07:00 # Voids 2 2 # Bowel Movements 4 Microbiology Date/Time Source Procedure Growth Status 08/06/19 04:45 Nasal Nares - Final Complete 08/06/19 04:45 Nasal Nares - Final Complete 08/06/19 04:45 Rectum VRE Culture - Final NO VANCOMYCIN RESISTANT ENTEROCOCCUS ... Complete Current Medications Medications (Trade) Dose Ordered Sig/Kristine Route PRN Reason Start Time Stop Time Status Last Admin Dose Admin Acetaminophen (Tylenol) 500 mg Q6H PRN ORAL Mild Pain/Temp > 100.5 08/16/19 03:00 09/05/19 08:55 08/18/19 22:28 Docusate Sodium (Colace) 250 mg DAILY ORAL 08/16/19 09:00 09/05/19 08:59 08/20/19 10:08 Escitalopram Oxalate (Lexapro) 10 mg DAILY ORAL 08/18/19 09:00 09/17/19 08:59 08/20/19 10:08 Finasteride (Proscar) 5 mg DAILY ORAL 08/16/19 09:00 11/05/19 15:44 08/20/19 10:08 Hydralazine HCl (Apresoline) 75 mg EVERY 8 HOURS ORAL 08/16/19 06:00 11/13/19 05:59 08/20/19 21:03 Lorazepam (Ativan) 0.5 mg TID ORAL 08/18/19 13:00 08/25/19 12:59 08/20/19 18:00 Magnesium Hydroxide (Mom) 30 ml TIDPRN PRN ORAL Constipation 08/19/19 05:45 09/18/19 05:44 Nifedipine (Procardia XL) 30 mg BID ORAL 08/16/19 09:00 09/05/19 17:59 08/20/19 18:00 Nitroglycerin (Nitro-Bid) 1 inch Q6HR@0600,1200,1800 TOPIC 08/16/19 06:00 09/11/19 06:59 08/20/19 18:00 Pantoprazole (Protonix) 40 mg DAILY IVP 08/19/19 09:00 09/05/19 08:59 08/20/19 10:08 Risperidone (RisperDAL) 2 mg BEDTIME ORAL 08/16/19 21:00 09/29/19 20:59 08/20/19 21:04 Sennosides (Senokot) 8.6 mg BEDTIME ORAL 08/16/19 21:00 09/05/19 20:59 08/20/19 21:04 Tamsulosin HCl (Flomax) 0.4 mg BID ORAL 08/18/19 18:00 09/05/19 20:59 08/20/19 18:00 Laboratory Tests 08/21/19 05:55: White Blood Count 5.7, Red Blood Count 3.36L, Hemoglobin 9.9L, Hematocrit 30.0L , Mean Corpuscular Volume 89, Mean Corpuscular Hemoglobin 29.6, Mean Corpuscular Hemoglobin Concent 33.2, Red Cell Distribution Width 14.0, Platelet Count 240, Mean Platelet Volume 7.2, Neutrophils (%) (Auto) 78.4H, Lymphocytes ( %) (Auto) 9.5L, Monocytes (%) (Auto) 7.1, Eosinophils (%) (Auto) 4.2H, Basophils (%) (Auto) 0.8, Sodium Level 140, Potassium Level 3.8, Chloride Level 106, Carbon Dioxide Level 25, Anion Gap 9, Blood Urea Nitrogen 31H, Creatinine 2.2H, Estimat Glomerular Filtration Rate 28.7, Glucose Level 100, Calcium Level 9.5, Phosphorus Level 2.9, Magnesium Level 2.1, Total Bilirubin 0.4, Aspartate Amino Transf (AST/SGOT) 27, Alanine Aminotransferase (ALT/SGPT) 24, Alkaline Phosphatase 122H, C-Reactive Protein, Quantitative 1.7H, Pro-B-Type Natriuretic Peptide 4850H, Total Protein 5.7L, Albumin 2.6L, Globulin 3.1, Albumin/Globulin Ratio 0.8L Height (Feet): 5 Height (Inches): 6.00 Weight (Pounds): 110 Objective exam stable abdomen soft Bamshad,Miki Perry MD Aug 21, 2019 09:49
[2019-08-21] MEDS: Tamsulosin 0.4mg cap ORAL SCH ×2 (10:20→17:59)
[2019-08-21] MEDS: Pantoprazole Inj IVP SCH (10:20)
--- NOTE | 2019-08-21 10:23 | Nephrology Progress Note ---
Assessment/Plan Problem List: (1) Renal failure (ARF), acute on chronic Assessment: Serum creatinine stabilizing (2) Falls frequently (3) UTI (urinary tract infection) Assessment: and hematuria (4) Anemia (5) Dehydration (6) Encephalopathy due to metabolic factor or toxin Assessment Frequent falls Acute renal failure with underlying dehydration Anemia, underlying etiology unclear UTI (urinary tract infection) Toxic metabolic encephalopathy Plan Labs reviewed Increase Flomax to twice daily Correct electrolytes as needed Transfusion as needed Low IV hydration 2D echocardiogram ejection fraction 60% Kidney ultrasound pending results Monitor renal parameters Avoid nephrotoxics Antibiotics for UTI Continue per consultants Subjective ROS Limited/Unobtainable: No Constitutional: Reports: malaise, weakness Objective Objective Last 24 Hour Vital Signs Date Time Temp Pulse Resp B/P (MAP) Pulse Ox O2 Delivery O2 Flow Rate FiO2 08/21/19 10:21 85 158/61 08/21/19 10:10 99 08/21/19 08:00 97.0 85 20 158/61 (93) 90 08/21/19 05:05 103/65 08/21/19 05:05 103/65 08/21/19 03:51 97.1 66 20 103/65 (78) 95 08/20/19 23:57 97.5 69 20 132/51 (78) 92 08/20/19 21:03 135/75 08/20/19 21:00 Room Air 08/20/19 20:00 97.0 62 18 122/45 (70) 99 08/20/19 18:00 131/63 08/20/19 18:00 79 131/63 08/20/19 16:00 98.4 79 18 131/63 (85) 99 08/20/19 12:58 134/59 08/20/19 12:00 97.6 73 17 134/59 (84) 98 Intake and Output 08/20/19 08/21/19 19:00 07:00 # Voids 2 2 # Bowel Movements 4 Laboratory Tests 08/21/19 05:55: White Blood Count 5.7, Red Blood Count 3.36L, Hemoglobin 9.9L, Hematocrit 30.0L , Mean Corpuscular Volume 89, Mean Corpuscular Hemoglobin 29.6, Mean Corpuscular Hemoglobin Concent 33.2, Red Cell Distribution Width 14.0, Platelet Count 240, Mean Platelet Volume 7.2, Neutrophils (%) (Auto) 78.4H, Lymphocytes ( %) (Auto) 9.5L, Monocytes (%) (Auto) 7.1, Eosinophils (%) (Auto) 4.2H, Basophils (%) (Auto) 0.8, Sodium Level 140, Potassium Level 3.8, Chloride Level 106, Carbon Dioxide Level 25, Anion Gap 9, Blood Urea Nitrogen 31H, Creatinine 2.2H, Estimat Glomerular Filtration Rate 28.7, Glucose Level 100, Calcium Level 9.5, Phosphorus Level 2.9, Magnesium Level 2.1, Total Bilirubin 0.4, Aspartate Amino Transf (AST/SGOT) 27, Alanine Aminotransferase (ALT/SGPT) 24, Alkaline Phosphatase 122H, C-Reactive Protein, Quantitative 1.7H, Pro-B-Type Natriuretic Peptide 4850H, Total Protein 5.7L, Albumin 2.6L, Globulin 3.1, Albumin/Globulin Ratio 0.8L Height (Feet): 5 Height (Inches): 6.00 Weight (Pounds): 110 Cardiovascular: normal rate Respiratory/Chest: decreased breath sounds Abdomen: soft Objective No change Juan Jade MD Aug 21, 2019 10:23
--- NOTE | 2019-08-21 11:49 | Pulmonology Progress Note ---
Assessment/Plan Assessment/Plan IMPRESSION: 1. Pleural effusions, small bilateral. 2. Atelectasis. 3. Pulmonary edema, questionable. 4. Hypertension. 5. Hyperlipidemia. DISCUSSION: The patient is saturating well on room air or low flow O2. 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 no new recommendations Kimani Hahn M.D. Subjective Interval Events: None new Constitutional: Reports: no symptoms HEENT: Repors: no symptoms Respiratory: Reports: no symptoms Cardiovascular: Reports: no symptoms Gastrointestinal/Abdominal: Reports: no symptoms Allergies: Coded Allergies: No Known Allergies (Unverified , 06/05/19) Objective Last 24 Hour Vital Signs Date Time Temp Pulse Resp B/P (MAP) Pulse Ox O2 Delivery O2 Flow Rate FiO2 08/21/19 10:21 85 158/61 08/21/19 10:10 99 08/21/19 08:00 97.0 85 20 158/61 (93) 90 08/21/19 05:05 103/65 08/21/19 05:05 103/65 08/21/19 03:51 97.1 66 20 103/65 (78) 95 08/20/19 23:57 97.5 69 20 132/51 (78) 92 08/20/19 21:03 135/75 08/20/19 21:00 Room Air 08/20/19 20:00 97.0 62 18 122/45 (70) 99 08/20/19 18:00 131/63 08/20/19 18:00 79 131/63 08/20/19 16:00 98.4 79 18 131/63 (85) 99 08/20/19 12:58 134/59 08/20/19 12:00 97.6 73 17 134/59 (84) 98 Intake and Output 08/20/19 08/21/19 19:00 07:00 # Voids 2 2 # Bowel Movements 4 General Appearance: no acute distress HEENT: normocephalic Respiratory/Chest: chest wall non-tender Cardiovascular: normal peripheral pulses Abdomen: normal bowel sounds Laboratory Tests 08/21/19 05:55: White Blood Count 5.7, Red Blood Count 3.36L, Hemoglobin 9.9L, Hematocrit 30.0L , Mean Corpuscular Volume 89, Mean Corpuscular Hemoglobin 29.6, Mean Corpuscular Hemoglobin Concent 33.2, Red Cell Distribution Width 14.0, Platelet Count 240, Mean Platelet Volume 7.2, Neutrophils (%) (Auto) 78.4H, Lymphocytes ( %) (Auto) 9.5L, Monocytes (%) (Auto) 7.1, Eosinophils (%) (Auto) 4.2H, Basophils (%) (Auto) 0.8, Sodium Level 140, Potassium Level 3.8, Chloride Level 106, Carbon Dioxide Level 25, Anion Gap 9, Blood Urea Nitrogen 31H, Creatinine 2.2H, Estimat Glomerular Filtration Rate 28.7, Glucose Level 100, Calcium Level 9.5, Phosphorus Level 2.9, Magnesium Level 2.1, Total Bilirubin 0.4, Aspartate Amino Transf (AST/SGOT) 27, Alanine Aminotransferase (ALT/SGPT) 24, Alkaline Phosphatase 122H, C-Reactive Protein, Quantitative 1.7H, Pro-B-Type Natriuretic Peptide 4850H, Total Protein 5.7L, Albumin 2.6L, Globulin 3.1, Albumin/Globulin Ratio 0.8L Current Medications Medications (Trade) Dose Ordered Sig/Kristine Route PRN Reason Start Time Stop Time Status Last Admin Dose Admin Acetaminophen (Tylenol) 500 mg Q6H PRN ORAL Mild Pain/Temp > 100.5 08/16/19 03:00 09/05/19 08:55 08/18/19 22:28 Docusate Sodium (Colace) 250 mg DAILY ORAL 08/16/19 09:00 09/05/19 08:59 08/20/19 10:08 Escitalopram Oxalate (Lexapro) 10 mg DAILY ORAL 08/18/19 09:00 09/17/19 08:59 08/21/19 10:21 Finasteride (Proscar) 5 mg DAILY ORAL 08/16/19 09:00 11/05/19 15:44 08/21/19 10:21 Hydralazine HCl (Apresoline) 75 mg EVERY 8 HOURS ORAL 08/16/19 06:00 11/13/19 05:59 08/20/19 21:03 Lorazepam (Ativan) 0.5 mg TID ORAL 08/18/19 13:00 08/25/19 12:59 08/20/19 18:00 Magnesium Hydroxide (Mom) 30 ml TIDPRN PRN ORAL Constipation 08/19/19 05:45 09/18/19 05:44 Nifedipine (Procardia XL) 30 mg BID ORAL 08/16/19 09:00 09/05/19 17:59 08/21/19 10:21 Nitroglycerin (Nitro-Bid) 1 inch Q6HR@0600,1200,1800 TOPIC 08/16/19 06:00 09/11/19 06:59 08/20/19 18:00 Pantoprazole (Protonix) 40 mg DAILY IVP 08/19/19 09:00 09/05/19 08:59 08/21/19 10:20 Risperidone (RisperDAL) 2 mg BEDTIME ORAL 08/16/19 21:00 09/29/19 20:59 08/20/19 21:04 Sennosides (Senokot) 8.6 mg BEDTIME ORAL 08/16/19 21:00 09/05/19 20:59 08/20/19 21:04 Tamsulosin HCl (Flomax) 0.4 mg BID ORAL 08/18/19 18:00 09/05/19 20:59 08/21/19 10:20 Kimani Hahn MD Aug 21, 2019 11:49
--- NOTE | 2019-08-21 14:22 | NUR ---
NURSE NOTES: Spoke with Valerie of [facility] concerning discharge of patient. Valerie stated any admissions back to facility would be handled by Arabella from case management on Thursday. Charge nurse aware.
--- NOTE | 2019-08-21 16:55 | NUR ---
TRANSFER TO FLOOR: Patient transferred to [facility]. Report given to LUIS FERNANDO Luna. Rounds done, patient stable.
--- NOTE | 2019-08-21 17:01 | NUR ---
NURSE NOTES: Patient arrived to unit at 1650 via bed from [facility]. Received report from Shana RN. Patient is alert to self only on arrival, no acute distress noted, patient does not appear to be in any pain. RFA IV intact, locked. SCD's on. Condom catheter in place. Patient's belongings accounted for. Fall and aspiration precautions maintained. Side rails upx3, bed low and locked, bed alarm armed, call light within reach.
--- NOTE | 2019-08-21 19:32 | NUR ---
HAND-OFF: Report given to Ave GOULD.
--- NOTE | 2019-08-21 19:34 | NUR ---
NURSE NOTES: Report received from LUIS FERNANDO Luna. Patient is in bed asleep and comfortable. Bed is in low and locked position. Bed alarm on and side rails up x3. Fall precautions implemented. Will continue to monitor.
[2019-08-21] MEDS: Sennosides 8.6mg tab ORAL SCH (21:03)
--- NOTE | 2019-08-21 21:23 | NUR ---
NURSE NOTES: BP was initially low around 103/58. Rechecked in right arm and it was around 150 SBP. Rechecked in L arm BP was 141/45. HR 70. Patient does not show any distress. Repositioned patient and linens changed. Will monitor throughout shift.
[2019-08-22] VITALS: BP 156/60
--- NOTE | 2019-08-22 01:30 | Progress Note ---
DATE: 08/21/2019 SUBJECTIVE: Patient is doing better, calm, manageable. Patient is not having any behavior issues. MENTAL STATUS EXAMINATION: Alert, oriented times self. Mood is neutral. Affect is flat. Thought process, there is a paucity of thought content. Thought content, no suicidal or homicidal ideation. Cognition is impaired. Insight and judgment impaired. ASSESSMENT: 1. Major depressive disorder. 2. Anxiety disorder. PLAN: 1. Continue Lexapro. 2. Continue the Ativan 0.5 t.i.d. 3. Risperidone 2 mg at bedtime. 4. Continue to follow and readjust the medications. Loco Luu M.D. DR: TONYA JOB#: [id number] CC:
--- NOTE | 2019-08-22 03:15 | Progress Note ---
DATE: 08/21/2019 ADDENDUM OBJECTIVE: VITAL SIGNS: Blood pressure 103/65, pulse 66, respirations 20, afebrile, more alert, interactive, less confusion, compliant with medications. Oxygen saturation on room air is 92% to 99%. LUNGS: Bilateral breath sounds. Regular rhythm and rate. Normal S1, S2. A 1/6 systolic murmur at base. ABDOMEN: Soft. EXTREMITIES: No edema. IMPRESSION: 1. Valvular cardiomyopathy, junctional cardiac rhythm. No symptomatic bradycardias. 2. Severe pulmonary hypertension due to chronic heart failure. PLAN: 1. Continue on current cardiovascular regimen with an optimal afterload reduction. 2. Avoid tighter blood pressure control due to risk of orthostasis and falls, no current indication for pacemaker. 3. Elevated natriuretic peptide assays due to chronically elevated right heart pressures. No additional diuresis is needed at this time. Gamaliel Salas M.D. DR: JANY JOB#: [id number] CC:
[2019-08-22 04:00] VITALS: BP 130/47
[2019-08-22] MEDS: Nitroglycerin 2% oint pkt TOPIC SCH ×3 (05:07→18:00)
[2019-08-22] MEDS: HydrALAZINE 50mg tab ORAL SCH ×3 (05:08→21:55)
--- NOTE | 2019-08-22 07:44 | NUR ---
HAND-OFF: Report given to LUIS FERNANDO Llamas. Patient stable..
--- NOTE | 2019-08-22 07:45 | NUR ---
NURSE NOTES: Patient is in bed awake and talking to himself. Stable. Breathing is even and unlabored. Patient appears agitated but shows no s/s of distress. Patient is in bed in locked and lowest position with bed alarm on and call light within reach. All safety precautions provided. WIll continue to monitor.
[2019-08-22] MEDS: Tamsulosin 0.4mg cap ORAL SCH ×3 (08:13→17:47)
[2019-08-22] MEDS: Pantoprazole Inj IVP SCH ×2 (08:13→09:00)
[2019-08-22] MEDS: Docusate 250mg cap ORAL SCH ×2 (08:13→09:00)
[2019-08-22] MEDS: LORazepam 0.5mg tab ORAL SCH (08:14)
[2019-08-22] MEDS: LORazepam Inj 2mg/ml 1ml IM SCH ×4 (09:00→21:00)
--- NOTE | 2019-08-22 10:10 | Urology Progress Note ---
Assessment/Plan Status: stable, progressing, not improved Assessment/Plan: 1. Gross hematuria, presumably secondary to Doshi trauma. 2. BPH. 3. Urinary retention. 4. Neurogenic bladder. 5. Pyuria. 6. Proteinuria. 7. Renal insufficiency, which appears to be acute on chronic. 8. Rule out urethral stricture. monitor clinically doshi removed cont flomax and proscar s/p abx off anticoagulation, resume soon? restraints PRN cysto at some point monitor PVR and reinsert doshi PRN renal imaging Subjective Allergies: Coded Allergies: No Known Allergies (Unverified , 06/05/19) Subjective all noted, confused, doshi out, incontinent, urine reported clearing Objective Last 24 Hour Vital Signs Date Time Temp Pulse Resp B/P (MAP) Pulse Ox O2 Delivery O2 Flow Rate FiO2 08/22/19 05:08 133/50 08/22/19 05:07 133/50 08/22/19 04:00 98.9 65 18 130/47 (74) 97 08/22/19 00:00 99.5 76 17 156/60 (92) 94 08/21/19 21:13 141/45 08/21/19 21:00 Room Air 08/21/19 20:00 98.1 77 17 103/58 (73) 96 08/21/19 17:59 146/50 08/21/19 17:59 86 146/50 08/21/19 17:14 86 146/50 (82) 08/21/19 16:00 97.7 74 19 133/49 (77) 96 08/21/19 13:16 118/40 08/21/19 12:45 97.2 63 18 118/40 (66) 97 08/21/19 12:00 118/40 08/21/19 10:21 85 158/61 Intake and Output 08/21/19 08/22/19 19:00 07:00 Output Total 250 ml Balance -250 ml Output Urine Total 250 ml Microbiology Date/Time Source Procedure Growth Status 08/06/19 04:45 Nasal Nares - Final Complete 08/06/19 04:45 Nasal Nares - Final Complete 08/06/19 04:45 Rectum VRE Culture - Final NO VANCOMYCIN RESISTANT ENTEROCOCCUS ... Complete Current Medications Medications (Trade) Dose Ordered Sig/Kristine Route PRN Reason Start Time Stop Time Status Last Admin Dose Admin Acetaminophen (Tylenol) 500 mg Q6H PRN ORAL Mild Pain/Temp > 100.5 08/16/19 03:00 09/05/19 08:55 08/18/19 22:28 Docusate Sodium (Colace) 250 mg DAILY ORAL 08/16/19 09:00 09/05/19 08:59 08/22/19 08:13 Escitalopram Oxalate (Lexapro) 10 mg DAILY ORAL 08/18/19 09:00 09/17/19 08:59 08/22/19 08:13 Finasteride (Proscar) 5 mg DAILY ORAL 08/16/19 09:00 11/05/19 15:44 08/22/19 08:13 Hydralazine HCl (Apresoline) 75 mg EVERY 8 HOURS ORAL 08/16/19 06:00 11/13/19 05:59 08/22/19 05:08 Lorazepam (Ativan 2mg/ml 1ml) 0.5 mg QID IM 08/22/19 09:00 08/29/19 08:59 Magnesium Hydroxide (Mom) 30 ml TIDPRN PRN ORAL Constipation 08/19/19 05:45 09/18/19 05:44 Nifedipine (Procardia XL) 30 mg BID ORAL 08/16/19 09:00 09/05/19 17:59 08/21/19 17:59 Nitroglycerin (Nitro-Bid) 1 inch Q6HR@0600,1200,1800 TOPIC 08/16/19 06:00 09/11/19 06:59 08/22/19 05:07 Pantoprazole (Protonix) 40 mg DAILY IVP 08/19/19 09:00 09/05/19 08:59 08/22/19 08:13 Risperidone (RisperDAL) 2 mg BEDTIME ORAL 08/16/19 21:00 09/29/19 20:59 08/21/19 21:03 Sennosides (Senokot) 8.6 mg BEDTIME ORAL 08/16/19 21:00 09/05/19 20:59 08/21/19 21:03 Tamsulosin HCl (Flomax) 0.4 mg BID ORAL 08/18/19 18:00 09/05/19 20:59 08/22/19 08:13 Height (Feet): 5 Height (Inches): 6.00 Weight (Pounds): 110 Objective exam stable abdomen soft Miki Calzada MD Aug 22, 2019 10:10
--- NOTE | 2019-08-22 10:22 | Nephrology Progress Note ---
Assessment/Plan Problem List: (1) Renal failure (ARF), acute on chronic Assessment: Serum creatinine stabilizing (2) Falls frequently (3) UTI (urinary tract infection) Assessment: and hematuria (4) Anemia (5) Dehydration (6) Encephalopathy due to metabolic factor or toxin Assessment Frequent falls Acute renal failure with underlying dehydration Anemia, underlying etiology unclear UTI (urinary tract infection) Toxic metabolic encephalopathy Plan Will order labs for tomorrow Increase Flomax to twice daily Correct electrolytes as needed Transfusion as needed 2D echocardiogram ejection fraction 60% Kidney ultrasound pending results Monitor renal parameters Avoid nephrotoxics Antibiotics for UTI Continue per consultants Subjective ROS Limited/Unobtainable: No Constitutional: Reports: malaise, weakness Objective Objective Last 24 Hour Vital Signs Date Time Temp Pulse Resp B/P (MAP) Pulse Ox O2 Delivery O2 Flow Rate FiO2 08/22/19 05:08 133/50 08/22/19 05:07 133/50 08/22/19 04:00 98.9 65 18 130/47 (74) 97 08/22/19 00:00 99.5 76 17 156/60 (92) 94 08/21/19 21:13 141/45 08/21/19 21:00 Room Air 08/21/19 20:00 98.1 77 17 103/58 (73) 96 08/21/19 17:59 146/50 08/21/19 17:59 86 146/50 08/21/19 17:14 86 146/50 (82) 08/21/19 16:00 97.7 74 19 133/49 (77) 96 08/21/19 13:16 118/40 08/21/19 12:45 97.2 63 18 118/40 (66) 97 08/21/19 12:00 118/40 Intake and Output 08/21/19 08/22/19 19:00 07:00 Output Total 250 ml Balance -250 ml Output Urine Total 250 ml No blood work for today Height (Feet): 5 Height (Inches): 6.00 Weight (Pounds): 110 General Appearance: no apparent distress Objective No change Juan Jade MD Aug 22, 2019 10:22
--- NOTE | 2019-08-22 10:52 | NUR ---
CASE MANAGEMENT:REVIEW 08/20/19 SI: AC/CHR RENAL FAILURE. ENCEPHALOPATHY. UTI. ANEMIA. SMALL LINDA PLEURAL EFFUSION . PULMONARY EDEMA 97.8 65 17 163/93 98% ON RA IS:K-CL IV HYDRALAZINE PO Q8HR ATIVAN PO TID RISPERDAL PO HS FLOMAX PO BID PROTONIX IV QD \: 3MED SURG STATUS DCP: FROM [facility] CASE MANAGEMENT:REVIEW 08/21/19 SI: AC/CHR RENAL FAILURE. ENCEPHALOPATHY. UTI. ANEMIA. 97.0 85 20 158/61 90% ON RA H/H 9.9/30.0 BUN 31 CREAT 2.2 ALKP 122 BNP 4850 IS:K-CL IV HYDRALAZINE PO Q8HR ATIVAN PO TID RISPERDAL PO HS FLOMAX PO BID PROTONIX IV QD \: 3MED SURG STATUS CASE MANAGEMENT:REVIEW 08/22/19 SI: AC/CHR RENAL FAILURE. ENCEPHALOPATHY. UTI. ANEMIA. 99.5 76 17 156/60 94% ON RA IS:K-CL IV HYDRALAZINE PO Q8HR ATIVAN PO TID RISPERDAL PO HS FLOMAX PO BID PROTONIX IV QD \: 3MED SURG STATUS DCP: FROM [facility] PLAN: PLACEMENT NEEDED PATIENT HAS BEEN REFERRED TO: FOLLOW UP ON [facility] SPOKE WITH SUSAN FROM [facility] [employer] SHE WILL FAX CONTRACTED FACILITY LIST
--- NOTE | 2019-08-22 10:56 | Pulmonology Progress Note ---
Assessment/Plan Assessment/Plan IMPRESSION: 1. Pleural effusions, small bilateral. 2. Atelectasis. 3. Pulmonary edema, questionable. 4. Hypertension. 5. Hyperlipidemia. DISCUSSION: The patient is saturating well on room air or low flow O2. 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 no new recommendations Kimani Hahn M.D. Subjective Interval Events: None new Constitutional: Reports: no symptoms HEENT: Repors: no symptoms Respiratory: Reports: no symptoms Cardiovascular: Reports: no symptoms Gastrointestinal/Abdominal: Reports: no symptoms Allergies: Coded Allergies: No Known Allergies (Unverified , 06/05/19) Objective Last 24 Hour Vital Signs Date Time Temp Pulse Resp B/P (MAP) Pulse Ox O2 Delivery O2 Flow Rate FiO2 08/22/19 05:08 133/50 08/22/19 05:07 133/50 08/22/19 04:00 98.9 65 18 130/47 (74) 97 08/22/19 00:00 99.5 76 17 156/60 (92) 94 08/21/19 21:13 141/45 08/21/19 21:00 Room Air 08/21/19 20:00 98.1 77 17 103/58 (73) 96 08/21/19 17:59 146/50 08/21/19 17:59 86 146/50 08/21/19 17:14 86 146/50 (82) 08/21/19 16:00 97.7 74 19 133/49 (77) 96 08/21/19 13:16 118/40 08/21/19 12:45 97.2 63 18 118/40 (66) 97 08/21/19 12:00 118/40 Intake and Output 08/21/19 08/22/19 19:00 07:00 Output Total 250 ml Balance -250 ml Output Urine Total 250 ml General Appearance: no acute distress HEENT: normocephalic Respiratory/Chest: chest wall non-tender, lungs clear Cardiovascular: normal peripheral pulses Abdomen: normal bowel sounds Current Medications Medications (Trade) Dose Ordered Sig/Kristine Route PRN Reason Start Time Stop Time Status Last Admin Dose Admin Acetaminophen (Tylenol) 500 mg Q6H PRN ORAL Mild Pain/Temp > 100.5 08/16/19 03:00 09/05/19 08:55 08/18/19 22:28 Docusate Sodium (Colace) 250 mg DAILY ORAL 08/16/19 09:00 09/05/19 08:59 08/22/19 08:13 Escitalopram Oxalate (Lexapro) 10 mg DAILY ORAL 08/18/19 09:00 09/17/19 08:59 08/22/19 08:13 Finasteride (Proscar) 5 mg DAILY ORAL 08/16/19 09:00 11/05/19 15:44 08/22/19 08:13 Hydralazine HCl (Apresoline) 75 mg EVERY 8 HOURS ORAL 08/16/19 06:00 11/13/19 05:59 08/22/19 05:08 Lorazepam (Ativan 2mg/ml 1ml) 0.5 mg QID IM 08/22/19 09:00 08/29/19 08:59 Magnesium Hydroxide (Mom) 30 ml TIDPRN PRN ORAL Constipation 08/19/19 05:45 09/18/19 05:44 Nifedipine (Procardia XL) 30 mg BID ORAL 08/16/19 09:00 09/05/19 17:59 08/21/19 17:59 Nitroglycerin (Nitro-Bid) 1 inch Q6HR@0600,1200,1800 TOPIC 08/16/19 06:00 09/11/19 06:59 08/22/19 05:07 Pantoprazole (Protonix) 40 mg DAILY IVP 08/19/19 09:00 09/05/19 08:59 08/22/19 08:13 Risperidone (RisperDAL) 2 mg BEDTIME ORAL 08/16/19 21:00 09/29/19 20:59 08/21/19 21:03 Sennosides (Senokot) 8.6 mg BEDTIME ORAL 08/16/19 21:00 09/05/19 20:59 08/21/19 21:03 Tamsulosin HCl (Flomax) 0.4 mg BID ORAL 08/18/19 18:00 09/05/19 20:59 08/22/19 08:13 Kimani Hahn MD Aug 22, 2019 10:56
--- NOTE | 2019-08-22 11:08 | General Progress Note ---
Assessment/Plan Problem List: (1) CHF (congestive heart failure) ICD Codes: I50.9 - Heart failure, unspecified SNOMED: 21593540 (2) Renal failure (ARF), acute on chronic ICD Codes: N17.9 - Acute kidney failure, unspecified; N18.9 - Chronic kidney disease, unspecified SNOMED: 735890723 (3) Encephalopathy due to metabolic factor or toxin SNOMED: 503489290 (4) Gross hematuria ICD Codes: R31.0 - Gross hematuria SNOMED: 105518710 (5) Falls frequently ICD Codes: R29.6 - Repeated falls SNOMED: 668786342 (6) Dehydration ICD Codes: E86.0 - Dehydration SNOMED: 47421703 (7) UTI (urinary tract infection) ICD Codes: N39.0 - Urinary tract infection, site not specified SNOMED: 94173943 (8) Anemia ICD Codes: D64.9 - Anemia, unspecified SNOMED: 408475921 Status: stable, progressing, not improved Assessment/Plan: off restraints. cardiac rx check room air o2 sat pt/ot dc planning to snf once bed found at accepting snf Subjective ROS Limited/Unobtainable: Yes Constitutional: Reports: malaise, weakness HEENT: Reports: no symptoms Cardiovascular: Reports: no symptoms Respiratory: Reports: no symptoms Gastrointestinal/Abdominal: Reports: no symptoms Genitourinary: Reports: no symptoms Neurologic/Psychiatric: Reports: anxiety Endocrine: Reports: no symptoms Hematologic/Lymphatic: Reports: no symptoms Allergies: Coded Allergies: No Known Allergies (Unverified , 06/05/19) All Systems: reviewed and negative except above Subjective no events. overall less confused. no cp/sob. more alert. more cooperative. still confused. seems at baseline. labs reviewed Objective Last 24 Hour Vital Signs Date Time Temp Pulse Resp B/P (MAP) Pulse Ox O2 Delivery O2 Flow Rate FiO2 08/22/19 09:00 Room Air 08/22/19 05:08 133/50 08/22/19 05:07 133/50 08/22/19 04:00 98.9 65 18 130/47 (74) 97 08/22/19 00:00 99.5 76 17 156/60 (92) 94 08/21/19 21:13 141/45 08/21/19 21:00 Room Air 08/21/19 20:00 98.1 77 17 103/58 (73) 96 08/21/19 17:59 146/50 08/21/19 17:59 86 146/50 08/21/19 17:14 86 146/50 (82) 08/21/19 16:00 97.7 74 19 133/49 (77) 96 08/21/19 13:16 118/40 08/21/19 12:45 97.2 63 18 118/40 (66) 97 08/21/19 12:00 118/40 Intake and Output 08/21/19 08/22/19 19:00 07:00 Output Total 250 ml Balance -250 ml Output Urine Total 250 ml Height (Feet): 5 Height (Inches): 6.00 Weight (Pounds): 110 Objective General Appearance: WD/WN, alert, confused Neck: supple Cardiovascular: regular rhythm Respiratory/Chest: rhonchi - bilaterally Abdomen: normal bowel sounds, non tender, soft, no organomegaly, no mass Edema: no edema noted Arm (L), no edema noted Arm (R), no edema noted Leg (L), no edema noted Leg (R), no edema noted Pedal (L), no edema noted Pedal (R), no edema noted Generalized 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
--- NOTE | 2019-08-22 11:31 | NUR ---
CASE MANAGEMENT NOTE SPOKE TO SUSAN FROM [facility] [phone] SUSAN IS SENDING A CONTRACTED FACILITY LIST PLACEMENT NEEDED PATIENT REQUIRING SKILLED NEED
--- NOTE | 2019-08-22 12:52 | NUR ---
*-*INSURANCE*-* UPDATED CLINICALS AND REVIEWS HAVE BEEN FAXED TO: DEE SALGUERO F: [phone] REF# [id number]
--- NOTE | 2019-08-22 13:23 | NUR ---
RD ASSESSMENT & RECOMMENDATIONS SEE CARE ACTIVITY FOR COMPLETE ASSESSMENT DAILY ESTIMATED NEEDS: Needs based on Wound, 66.8kg 28-33 kcals/kg 2475-7711 total kcals 1.25-1.5 g protein/kg 84-100 g total protein 25-30 mL/kg 1561-6538 total fluid mLs NUTRITION DIAGNOSIS: Swallowing difficulty r/t dysphagia and ams as evidenced by s/p NEEDLEMAKER eval, poor cognition, pt on liquify puree texture diet w/ HTL, poor po intake. CURRENT DIET: Liquify puree NTL Regular PO DIET RECOMMENDATIONS: Maintain Regular diet, texture per NEEDLEMAKER ADDITIONAL RECOMMENDATIONS: 1) Add Ensure TID w/ meals 2) Maintain calibrated bed scale wts EMR wt: 160# vs Bed scale wt: 147#-> bed now reads 109.8# 3) Monitor hydration status, rec D5 w/ poor- variable intake and to prevent hypoglycemia 4) Wound care: Add ALEJANDRA BID as tolerated + Vit C 250mg daily
--- NOTE | 2019-08-22 13:51 | NUR ---
ST NOTES: WEEKLY SWALLOW/SPEECH THERAPY SUMMARY: PATIENT SEEN FOR DYSPHAGIA, SEE SWALLOW EVAL AND MOD BARIUM SWALLOW STUDY (MBSS) REPORTS. GOALS MET FOR NEW STAFF (LUIS FERNANDO DORANTES) EDUCATED/TRAINED IN POSTED ASPIRATION PRECAUTIONS. GOALS NOT MET IN PRIOR DAYS (REFUSED X5 OR 25%) BUT TOOK 90% OF LIQUIFIED PUREED LIKE NECTAR THICK SOUP DIET W/O OVERT ASPIRATION PER RN. PER RN, WHEN THE PATIENT TOOK HIS CRUSHED MEDS WITH APPLESAUCE, HE CRACKED THE PLASTIC SPOON INTO 4 PIECES. CONSIDER METAL OR COATED SPOON INSTEAD OF PLASTIC. WHEN SUPERVISOR COLD ROLLING GAVE PATIENT PO TRIALS WITH PUREED TSP SHE ASKED HIM NOT TO BREAK PLASTIC SPOON AND HE COMPLIED. SWALLOWED AFTER 8 SECONDS (CHEWED BOLUS UNNECESSARILY LIKELY ORAL AWARENESS/SENSATION PROBLEMS) AND COUGHED AFTER THE SWALLOW. NO ORAL RESIDUE. GIVEN NECTAR THICK LIQUIDS TSP AND CUP, SWALLOWED AFTER 6 SECONDS WITH FAIR HYOLARYNGEAL EXCURSION, NO ORAL RESIDUE NO OVERT ASPIRATION. PLAN: CONTINUE WITH CURRENT DIET/LIQUIDS WITH POSTED ASPIRATION PRECAUTIONS SINCE TOO SLOW WITH PUREED BOLUSES. SEND AND ENCOURAGE INTAKE OF HIGH CALORIE SUPPLEMENTS SINCE INTAKE FOR MEALS IS INCONSISTENT. Addendum: 08/22/19 at 1412 by RAFAEL ALVARADO SUPERVISOR COLD ROLLING ADDENDUM: PER RN, PATIENT IS NOT GETTING ENSURE ENLIVE (REC BY SAMIR) SO ST CALLED KITCHEN TO SEND SINCE PT HAD POOR INTAKE MANY TIMES. WILL ALSO UPGRADE TO NECTAR THICK LIQUIDS.
--- NOTE | 2019-08-22 15:27 | NUR ---
*-*DISCHARGE PLANNING*-* PATIENT HAS BEEN REFERRED TO: [facility] P: [phone] [facility] P: [phone] [facility] P: [phone] [facility] P: [phone] ~~~~~~~~~~WATING FOR ACCEPTANCE~~~
--- NOTE | 2019-08-22 19:46 | NUR ---
HAND-OFF: Report given to Kellee GOULD. patient is stable.
--- NOTE | 2019-08-22 19:47 | NUR ---
NURSE NOTES: Received report from LUIS FERNANDO Llamas. Patient in bed, agitated. Bed in low position, locked, side rails up x3, fall precautions implemented. Bed alarm on. No IV access, aware per AM RN report. will continue to monitor.
[2019-08-22 20:00] VITALS: BP 159/50
[2019-08-22] MEDS: Sennosides 8.6mg tab ORAL SCH (21:50)
[2019-08-22 21:55] VITALS: BP 107/72
--- NOTE | 2019-08-22 22:39 | Psych Consult Progress Note ---
Psychiatry Progress Note Psychiatry Progress Note Subjective the pt was anxious today Medications Current Medications Medications (Trade) Dose Ordered Sig/Kristine Route PRN Reason Start Time Stop Time Status Last Admin Dose Admin Acetaminophen (Tylenol) 500 mg Q6H PRN ORAL Mild Pain/Temp > 100.5 08/16/19 03:00 09/05/19 08:55 08/18/19 22:28 Docusate Sodium (Colace) 250 mg DAILY ORAL 08/16/19 09:00 09/05/19 08:59 08/20/19 10:08 Escitalopram Oxalate (Lexapro) 10 mg DAILY ORAL 08/18/19 09:00 09/17/19 08:59 08/21/19 10:21 Finasteride (Proscar) 5 mg DAILY ORAL 08/16/19 09:00 11/05/19 15:44 08/21/19 10:21 Hydralazine HCl (Apresoline) 75 mg EVERY 8 HOURS ORAL 08/16/19 06:00 11/13/19 05:59 08/22/19 21:55 Lorazepam (Ativan 2mg/ml 1ml) 0.5 mg QID IM 08/22/19 09:00 08/29/19 08:59 08/22/19 19:52 Magnesium Hydroxide (Mom) 30 ml TIDPRN PRN ORAL Constipation 08/19/19 05:45 09/18/19 05:44 Nifedipine (Procardia XL) 30 mg BID ORAL 08/16/19 09:00 09/05/19 17:59 08/21/19 17:59 Nitroglycerin (Nitro-Bid) 1 inch Q6HR@0600,1200,1800 TOPIC 08/16/19 06:00 09/11/19 06:59 08/22/19 05:07 Pantoprazole (Protonix) 40 mg DAILY IVP 08/19/19 09:00 09/05/19 08:59 08/21/19 10:20 Risperidone (RisperDAL) 2 mg BEDTIME ORAL 08/16/19 21:00 09/29/19 20:59 08/22/19 21:50 Sennosides (Senokot) 8.6 mg BEDTIME ORAL 08/16/19 21:00 09/05/19 20:59 08/22/19 21:50 Tamsulosin HCl (Flomax) 0.4 mg BID ORAL 08/18/19 18:00 09/05/19 20:59 08/22/19 17:47 Neurological/Psychiatric: Reports: anxiety, depressed, emotional problems Allergies: Coded Allergies: No Known Allergies (Unverified , 06/05/19) Objective Data Height (Feet): 5 Height (Inches): 6.00 Weight (Pounds): 110 General Appearance: alert Additional Comments: alert, awake, and disoriented. Mood is neutral. Affect is flat. Thought process, there is a paucity of thought content. Thought content, no suicidal or homicidal ideation. Cognition is impaired. Insight and judgment is impaired. ASSESSMENT: 1. Dementia. 2. Psychotic disorder. PLAN: 1. risperidone. 3. Continue to follow and readjust the medications. Assessment/Plan Problem List: (1) Encephalopathy due to metabolic factor or toxin Assessment & Plan: 2. Psychotic disorder. SNOMED: 815093977 Status: stable, progressing, not improved Assessment/Plan: PLAN: 1. lexapro 2. risperidone. 3. Continue to follow and readjust the medications. Loco Luu MD Aug 22, 2019 22:39
--- NOTE | 2019-08-23 03:15 | Progress Note ---
DATE: 08/22/2019 CARDIOLOGY PROGRESS NOTE SUBJECTIVE: Confusion is decreased. Patient is more alert, interactive. PHYSICAL EXAMINATION: VITAL SIGNS: Blood pressure 133/50, heart rate 65, respirations 18. LUNGS: Clear with good breath sounds. CARDIAC: Regular rhythm and rate. Normal S1, S2. A 1/6 systolic murmur at apex. ABDOMEN: Soft, nontender. EXTREMITIES: No edema. IMPRESSION: 1. Valvular cardiomyopathy. 2. Mitral regurgitation, status post valve replacement. 3. Junctional rhythm. 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 5. Severe pulmonary hypertension. 6. Acute on chronic diastolic congestive heart failure, now compensated. PLAN: Stable from cardiovascular standpoint on current medication regimen. Await disposition to long-term facility. Gamaliel Salas M.D. DR: LUISA JOB#: [id number] CC:
[2019-08-23] MEDS: HydrALAZINE 50mg tab ORAL SCH ×3 (06:00→22:26)
--- NOTE | 2019-08-23 06:00 | NUR ---
NURSE NOTES: Patient slept soundly most of the night. Was incontinent of urine x2, condom cath replaced x2. Patient alert to name only, speaks Bahamian with nurse fairly clearly. Bed in low position, locked, side rails up x3, bed alarm on. Will continue to monitor.
[2019-08-23 06:34] LABS: BASOPHILS % (AUTO) 1.1 % (0.0-2.0); HEMATOCRIT 28.1 % (42.0-52.0); HEMOGLOBIN 9.5 G/DL (14.2-18.0); LYMPHOCYTES % (AUTO) 14.1 % (20.0-45.0); MEAN CORPUSCULAR VOLUME 88 FL (80-99); MONOCYTES % (AUTO) 9.8 % (1.0-10.0); NEUTROPHILS % (AUTO) 70.1 % (45.0-75.0); PLATELET COUNT 221 K/UL (150-450); RED BLOOD COUNT 3.18 M/UL (4.70-6.10); RED CELL DISTRIBUTION WIDTH 14.4 % (11.6-14.8); WHITE BLOOD COUNT 4.7 K/UL (4.8-10.8)
[2019-08-23] MEDS: Nitroglycerin 2% oint pkt TOPIC SCH ×3 (06:35→17:32)
[2019-08-23 06:59] LABS: ALANINE AMINOTRANSFERASE 30 U/L (12-78); ALBUMIN 2.5 G/DL (3.4-5.0); ALBUMIN/GLOBULIN RATIO 0.8 (1.0-2.7); ALKALINE PHOSPHATASE 128 U/L (46-116); ANION GAP 8 mmol/L (5-15); ASPARTATE AMINO TRANSFERASE 34 U/L (15-37); BILIRUBIN,TOTAL 0.3 MG/DL (0.2-1.0); BLOOD UREA NITROGEN 34 mg/dL (7-18); CALCIUM 9.8 MG/DL (8.5-10.1); CARBON DIOXIDE 26 MMOL/L (21-32); CHLORIDE 108 MMOL/L (98-107); CREATININE 1.9 MG/DL (0.55-1.30); PHOSPHORUS 2.7 MG/DL (2.5-4.9); POTASSIUM 3.4 MMOL/L (3.5-5.1); SODIUM 142 MMOL/L (136-145)
--- NOTE | 2019-08-23 07:30 | NUR ---
NURSE NOTES: Patient is in bed asleep. Stable. No visible signs of distress noted. Breathing is even and unlabored. Patient is in bed in locked and lowest position with call light within reach. All safety measures provided. Bed alarm on. Will continue to monitor.
--- NOTE | 2019-08-23 07:35 | NUR ---
HAND-OFF: Report given to LUIS FERNANDO Llamas and LUIS FERNANDO Roberts. Patient sleeping.
--- NOTE | 2019-08-23 07:48 | NUR ---
NURSE NOTES: Pt is in bed, sleeping. Breathing on room air, no respiratory distress noted. No s/s of pain or discomfort noted. Fall precaution in place. Bed in low and locked position, Bed alarm is on, and side rails two up. call light within reach. will do frequent rounds and continue to monitor the pt.
[2019-08-23 08:00] VITALS: BP 145/52
--- NOTE | 2019-08-23 08:56 | Urology Progress Note ---
Assessment/Plan Status: stable, progressing, not improved Assessment/Plan: 1. Gross hematuria, presumably secondary to Doshi trauma. 2. BPH. 3. Urinary retention. 4. Neurogenic bladder. 5. Pyuria. 6. Proteinuria. 7. Renal insufficiency, which appears to be acute on chronic. 8. Rule out urethral stricture. monitor clinically doshi removed cont flomax and proscar s/p abx off anticoagulation, resume soon? restraints PRN cysto at some point monitor PVR and reinsert dosih PRN renal imaging Subjective Allergies: Coded Allergies: No Known Allergies (Unverified , 06/05/19) Subjective all noted, confused, doshi out, incontinent, urine reported clearing Objective Last 24 Hour Vital Signs Date Time Temp Pulse Resp B/P (MAP) Pulse Ox O2 Delivery O2 Flow Rate FiO2 08/23/19 08:00 97.8 63 18 145/52 (83) 100 08/23/19 06:35 144/54 08/23/19 06:00 144/52 08/22/19 21:55 107/72 08/22/19 21:55 60 107/72 (84) 08/22/19 21:00 Room Air 08/22/19 20:00 97.4 59 18 159/50 (86) 98 08/22/19 09:00 Room Air Intake and Output 08/22/19 08/23/19 19:00 07:00 Intake Total 120 ml Output Total 400 ml Balance -280 ml Intake Oral 120 ml Output Urine Total 400 ml # Voids 2 Microbiology Date/Time Source Procedure Growth Status 08/06/19 04:45 Nasal Nares - Final Complete 08/06/19 04:45 Nasal Nares - Final Complete 08/06/19 04:45 Rectum VRE Culture - Final NO VANCOMYCIN RESISTANT ENTEROCOCCUS ... Complete Current Medications Medications (Trade) Dose Ordered Sig/Kristine Route PRN Reason Start Time Stop Time Status Last Admin Dose Admin Acetaminophen (Tylenol) 500 mg Q6H PRN ORAL Mild Pain/Temp > 100.5 08/16/19 03:00 09/05/19 08:55 08/18/19 22:28 Docusate Sodium (Colace) 250 mg DAILY ORAL 08/16/19 09:00 09/05/19 08:59 08/20/19 10:08 Escitalopram Oxalate (Lexapro) 10 mg DAILY ORAL 08/18/19 09:00 09/17/19 08:59 08/21/19 10:21 Finasteride (Proscar) 5 mg DAILY ORAL 08/16/19 09:00 11/05/19 15:44 08/21/19 10:21 Hydralazine HCl (Apresoline) 75 mg EVERY 8 HOURS ORAL 08/16/19 06:00 11/13/19 05:59 08/22/19 21:55 Lorazepam (Ativan 2mg/ml 1ml) 0.5 mg QID IM 08/22/19 09:00 08/29/19 08:59 08/22/19 19:52 Magnesium Hydroxide (Mom) 30 ml TIDPRN PRN ORAL Constipation 08/19/19 05:45 09/18/19 05:44 Nifedipine (Procardia XL) 30 mg BID ORAL 08/16/19 09:00 09/05/19 17:59 08/21/19 17:59 Nitroglycerin (Nitro-Bid) 1 inch Q6HR@0600,1200,1800 TOPIC 08/16/19 06:00 09/11/19 06:59 08/23/19 06:35 Pantoprazole (Protonix) 40 mg DAILY IVP 08/19/19 09:00 09/05/19 08:59 08/21/19 10:20 Risperidone (RisperDAL) 2 mg BEDTIME ORAL 08/16/19 21:00 09/29/19 20:59 08/22/19 21:50 Sennosides (Senokot) 8.6 mg BEDTIME ORAL 08/16/19 21:00 09/05/19 20:59 08/22/19 21:50 Tamsulosin HCl (Flomax) 0.4 mg BID ORAL 08/18/19 18:00 09/05/19 20:59 08/22/19 17:47 Laboratory Tests 08/23/19 04:55: White Blood Count 4.7L, Red Blood Count 3.18L, Hemoglobin 9.5L, Hematocrit 28.1L , Mean Corpuscular Volume 88, Mean Corpuscular Hemoglobin 29.9, Mean Corpuscular Hemoglobin Concent 33.8, Red Cell Distribution Width 14.4, Platelet Count 221, Mean Platelet Volume 7.0, Neutrophils (%) (Auto) 70.1, Lymphocytes (% ) (Auto) 14.1L, Monocytes (%) (Auto) 9.8, Eosinophils (%) (Auto) 5.0H, Basophils (%) (Auto) 1.1, Sodium Level 142, Potassium Level 3.4L, Chloride Level 108H, Carbon Dioxide Level 26, Anion Gap 8, Blood Urea Nitrogen 34H, Creatinine 1.9H, Estimat Glomerular Filtration Rate 33.9, Glucose Level 103, Calcium Level 9.8, Phosphorus Level 2.7, Magnesium Level 2.2, Total Bilirubin 0.3, Aspartate Amino Transf (AST/SGOT) 34, Alanine Aminotransferase (ALT/SGPT) 30, Alkaline Phosphatase 128H, Total Protein 5.7L, Albumin 2.5L, Globulin 3.2, Albumin/Globulin Ratio 0.8L Height (Feet): 5 Height (Inches): 6.00 Weight (Pounds): 110 Objective exam stable abdomen soft MumtazshMiki morrow MD Aug 23, 2019 08:56
[2019-08-23] MEDS: Pantoprazole Inj IVP SCH ×2 (09:00→09:08)
[2019-08-23] MEDS: Tamsulosin 0.4mg cap ORAL SCH ×2 (09:07→17:32)
[2019-08-23] MEDS: Docusate 250mg cap ORAL SCH (09:08)
[2019-08-23] MEDS: LORazepam Inj 2mg/ml 1ml IM SCH ×4 (09:08→21:53)
--- NOTE | 2019-08-23 10:39 | Pulmonology Progress Note ---
Assessment/Plan Assessment/Plan IMPRESSION: 1. Pleural effusions, small bilateral. 2. Atelectasis. 3. Pulmonary edema, questionable. 4. Hypertension. 5. Hyperlipidemia. DISCUSSION: The patient is saturating well on room air or low flow O2. 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 No new recommendations Kimani Hahn M.D. Subjective Interval Events: None new Constitutional: Reports: no symptoms HEENT: Repors: no symptoms Respiratory: Reports: no symptoms Cardiovascular: Reports: no symptoms Allergies: Coded Allergies: No Known Allergies (Unverified , 06/05/19) Objective Last 24 Hour Vital Signs Date Time Temp Pulse Resp B/P (MAP) Pulse Ox O2 Delivery O2 Flow Rate FiO2 08/23/19 09:07 63 145/52 08/23/19 09:00 Room Air 08/23/19 08:00 97.8 63 18 145/52 (83) 100 08/23/19 06:35 144/54 08/23/19 06:00 144/52 08/22/19 21:55 107/72 08/22/19 21:55 60 107/72 (84) 08/22/19 21:00 Room Air 08/22/19 20:00 97.4 59 18 159/50 (86) 98 Intake and Output 08/22/19 08/23/19 19:00 07:00 Intake Total 120 ml Output Total 400 ml Balance -280 ml Intake Oral 120 ml Output Urine Total 400 ml # Voids 2 General Appearance: no acute distress HEENT: normocephalic Respiratory/Chest: chest wall non-tender, normal breath sounds Cardiovascular: normal peripheral pulses Abdomen: normal bowel sounds Laboratory Tests 08/23/19 04:55: White Blood Count 4.7L, Red Blood Count 3.18L, Hemoglobin 9.5L, Hematocrit 28.1L , Mean Corpuscular Volume 88, Mean Corpuscular Hemoglobin 29.9, Mean Corpuscular Hemoglobin Concent 33.8, Red Cell Distribution Width 14.4, Platelet Count 221, Mean Platelet Volume 7.0, Neutrophils (%) (Auto) 70.1, Lymphocytes (% ) (Auto) 14.1L, Monocytes (%) (Auto) 9.8, Eosinophils (%) (Auto) 5.0H, Basophils (%) (Auto) 1.1, Sodium Level 142, Potassium Level 3.4L, Chloride Level 108H, Carbon Dioxide Level 26, Anion Gap 8, Blood Urea Nitrogen 34H, Creatinine 1.9H, Estimat Glomerular Filtration Rate 33.9, Glucose Level 103, Calcium Level 9.8, Phosphorus Level 2.7, Magnesium Level 2.2, Total Bilirubin 0.3, Aspartate Amino Transf (AST/SGOT) 34, Alanine Aminotransferase (ALT/SGPT) 30, Alkaline Phosphatase 128H, Total Protein 5.7L, Albumin 2.5L, Globulin 3.2, Albumin/Globulin Ratio 0.8L Current Medications Medications (Trade) Dose Ordered Sig/Kristine Route PRN Reason Start Time Stop Time Status Last Admin Dose Admin Acetaminophen (Tylenol) 500 mg Q6H PRN ORAL Mild Pain/Temp > 100.5 08/16/19 03:00 09/05/19 08:55 08/18/19 22:28 Docusate Sodium (Colace) 250 mg DAILY ORAL 08/16/19 09:00 09/05/19 08:59 08/23/19 09:08 Escitalopram Oxalate (Lexapro) 10 mg DAILY ORAL 08/18/19 09:00 09/17/19 08:59 08/23/19 09:07 Finasteride (Proscar) 5 mg DAILY ORAL 08/16/19 09:00 11/05/19 15:44 08/23/19 09:08 Hydralazine HCl (Apresoline) 75 mg EVERY 8 HOURS ORAL 08/16/19 06:00 11/13/19 05:59 08/22/19 21:55 Lorazepam (Ativan 2mg/ml 1ml) 0.5 mg QID IM 08/22/19 09:00 08/29/19 08:59 08/23/19 09:08 Magnesium Hydroxide (Mom) 30 ml TIDPRN PRN ORAL Constipation 08/19/19 05:45 09/18/19 05:44 Nifedipine (Procardia XL) 30 mg BID ORAL 08/16/19 09:00 09/05/19 17:59 08/23/19 09:07 Nitroglycerin (Nitro-Bid) 1 inch Q6HR@0600,1200,1800 TOPIC 08/16/19 06:00 09/11/19 06:59 08/23/19 06:35 Pantoprazole (Protonix) 40 mg DAILY IVP 08/19/19 09:00 09/05/19 08:59 08/21/19 10:20 Risperidone (RisperDAL) 2 mg BEDTIME ORAL 08/16/19 21:00 09/29/19 20:59 08/22/19 21:50 Sennosides (Senokot) 8.6 mg BEDTIME ORAL 08/16/19 21:00 09/05/19 20:59 08/22/19 21:50 Tamsulosin HCl (Flomax) 0.4 mg BID ORAL 08/18/19 18:00 09/05/19 20:59 08/23/19 09:07 Kimani Hahn MD Aug 23, 2019 10:39
[2019-08-23 12:40] VITALS: BP 127/41
--- NOTE | 2019-08-23 12:52 | NUR ---
*-*INSURANCE*-* UPDATED CLINICALS AND REVIEWS HAVE BEEN FAXED TO: [facility] F: [phone] REF# [id number]
--- NOTE | 2019-08-23 12:56 | NUR ---
*-*DISCHARGE PLANNING*-* CLINICALS HAVE BEEN FAXED TO: [facility] P: [phone] NO BEDS AVAILABLE [facility] P: [phone] UNABLE TO SERVICE PATIENT [facility] P: [phone] UNABLE TO ACCEPT PATIENT [facility] P: [phone] NO BEDS AVAILABLE ~~~~~ALL ABOVE ARE UNABLE TO SERVICE THE PATIENT~~~~~~~~~~~~~~~~~
--- NOTE | 2019-08-23 13:03 | Nephrology Progress Note ---
Assessment/Plan Problem List: (1) Renal failure (ARF), acute on chronic Assessment: Serum creatinine stabilizing (2) Falls frequently (3) UTI (urinary tract infection) Assessment: and hematuria (4) Anemia (5) Dehydration (6) Encephalopathy due to metabolic factor or toxin Assessment Frequent falls Acute renal failure with underlying dehydration Anemia, underlying etiology unclear UTI (urinary tract infection) Toxic metabolic encephalopathy Plan Oral potassium supplement today Will order labs for tomorrow Increase Flomax to twice daily Correct electrolytes as needed Transfusion as needed 2D echocardiogram ejection fraction 60% Kidney ultrasound pending results Monitor renal parameters Avoid nephrotoxics Antibiotics for UTI Continue per consultants Subjective ROS Limited/Unobtainable: No Constitutional: Reports: malaise Objective Objective Last 24 Hour Vital Signs Date Time Temp Pulse Resp B/P (MAP) Pulse Ox O2 Delivery O2 Flow Rate FiO2 08/23/19 09:07 63 145/52 08/23/19 09:00 Room Air 08/23/19 08:00 97.8 63 18 145/52 (83) 100 08/23/19 06:35 144/54 08/23/19 06:00 144/52 08/22/19 21:55 107/72 08/22/19 21:55 60 107/72 (84) 08/22/19 21:00 Room Air 08/22/19 20:00 97.4 59 18 159/50 (86) 98 Intake and Output 08/22/19 08/23/19 19:00 07:00 Intake Total 120 ml Output Total 400 ml Balance -280 ml Intake Oral 120 ml Output Urine Total 400 ml # Voids 2 Current Medications Medications (Trade) Dose Ordered Sig/Kristine Route PRN Reason Start Time Stop Time Status Last Admin Dose Admin Acetaminophen (Tylenol) 500 mg Q6H PRN ORAL Mild Pain/Temp > 100.5 08/16/19 03:00 09/05/19 08:55 08/18/19 22:28 Docusate Sodium (Colace) 250 mg DAILY ORAL 08/16/19 09:00 09/05/19 08:59 08/23/19 09:08 Escitalopram Oxalate (Lexapro) 10 mg DAILY ORAL 08/18/19 09:00 09/17/19 08:59 08/23/19 09:07 Finasteride (Proscar) 5 mg DAILY ORAL 08/16/19 09:00 11/05/19 15:44 08/23/19 09:08 Hydralazine HCl (Apresoline) 75 mg EVERY 8 HOURS ORAL 08/16/19 06:00 11/13/19 05:59 08/22/19 21:55 Lorazepam (Ativan 2mg/ml 1ml) 0.5 mg QID IM 08/22/19 09:00 08/29/19 08:59 08/23/19 12:51 Magnesium Hydroxide (Mom) 30 ml TIDPRN PRN ORAL Constipation 08/19/19 05:45 09/18/19 05:44 Nifedipine (Procardia XL) 30 mg BID ORAL 08/16/19 09:00 09/05/19 17:59 08/23/19 09:07 Nitroglycerin (Nitro-Bid) 1 inch Q6HR@0600,1200,1800 TOPIC 08/16/19 06:00 09/11/19 06:59 08/23/19 06:35 Pantoprazole (Protonix) 40 mg DAILY IVP 08/19/19 09:00 09/05/19 08:59 08/21/19 10:20 Potassium Chloride (K-Dur) 20 meq TWICE A DAY ORAL 08/23/19 13:00 11/21/19 12:59 UNV Risperidone (RisperDAL) 2 mg BEDTIME ORAL 08/16/19 21:00 09/29/19 20:59 08/22/19 21:50 Sennosides (Senokot) 8.6 mg BEDTIME ORAL 08/16/19 21:00 09/05/19 20:59 08/22/19 21:50 Tamsulosin HCl (Flomax) 0.4 mg BID ORAL 08/18/19 18:00 09/05/19 20:59 08/23/19 09:07 Laboratory Tests 08/23/19 04:55: White Blood Count 4.7L, Red Blood Count 3.18L, Hemoglobin 9.5L, Hematocrit 28.1L , Mean Corpuscular Volume 88, Mean Corpuscular Hemoglobin 29.9, Mean Corpuscular Hemoglobin Concent 33.8, Red Cell Distribution Width 14.4, Platelet Count 221, Mean Platelet Volume 7.0, Neutrophils (%) (Auto) 70.1, Lymphocytes (% ) (Auto) 14.1L, Monocytes (%) (Auto) 9.8, Eosinophils (%) (Auto) 5.0H, Basophils (%) (Auto) 1.1, Sodium Level 142, Potassium Level 3.4L, Chloride Level 108H, Carbon Dioxide Level 26, Anion Gap 8, Blood Urea Nitrogen 34H, Creatinine 1.9H, Estimat Glomerular Filtration Rate 33.9, Glucose Level 103, Calcium Level 9.8, Phosphorus Level 2.7, Magnesium Level 2.2, Total Bilirubin 0.3, Aspartate Amino Transf (AST/SGOT) 34, Alanine Aminotransferase (ALT/SGPT) 30, Alkaline Phosphatase 128H, Total Protein 5.7L, Albumin 2.5L, Globulin 3.2, Albumin/Globulin Ratio 0.8L Height (Feet): 5 Height (Inches): 6.00 Weight (Pounds): 110 General Appearance: no apparent distress Cardiovascular: normal rate Respiratory/Chest: decreased breath sounds Abdomen: soft Objective No change Juan Jade MD Aug 23, 2019 13:03
--- NOTE | 2019-08-23 13:46 | NUR ---
CASE MANAGEMENT:REVIEW 08/23/19 SI: PULMONARY EDEMA . BILATERAL PLEURAL EFFUSION. AC/CHR RENAL FAILURE. ENCEPHALOPATHY. UTI. ANEMIA. GROSS HEMATURIA 97.4 68 18 127/41 97% ON RA H/H 9.5/28.1 K+ 3.4 CL-108 BUN 34 CREAT 1.9 ALKP 128 IS:PROSCAR PO QD PROCARDIA XL PO BID FLOMAX PO BID NITRO-BID RISPERDAL PO QHS SENOKOT PO QHS HYDRALAZINE PO Q8HR IV PROTONIX QS \: 3MED SURG STATUS [facility]: [facility] PLACEMENT NEEDED PATIENT HAS BEEN REFERRED TO: ALL HAVE DECLINED: [facility] SAUD DAVIS FROM [facility] [employer] SHE WILL FAX CONTRACTED FACILITY LIST
--- NOTE | 2019-08-23 15:57 | General Progress Note ---
Assessment/Plan Problem List: (1) CHF (congestive heart failure) ICD Codes: I50.9 - Heart failure, unspecified SNOMED: 66456130 (2) Renal failure (ARF), acute on chronic ICD Codes: N17.9 - Acute kidney failure, unspecified; N18.9 - Chronic kidney disease, unspecified SNOMED: 604296002 (3) Encephalopathy due to metabolic factor or toxin SNOMED: 369702451 (4) Gross hematuria ICD Codes: R31.0 - Gross hematuria SNOMED: 374713351 (5) Falls frequently ICD Codes: R29.6 - Repeated falls SNOMED: 207656057 (6) Dehydration ICD Codes: E86.0 - Dehydration SNOMED: 67741690 (7) UTI (urinary tract infection) ICD Codes: N39.0 - Urinary tract infection, site not specified SNOMED: 62888783 (8) Anemia ICD Codes: D64.9 - Anemia, unspecified SNOMED: 145574163 Status: stable, progressing, not improved Assessment/Plan: off restraints. cardiac rx check room air o2 sat pt/ot dc planning to snf once bed found at accepting snf Subjective ROS Limited/Unobtainable: Yes Constitutional: Reports: malaise, weakness HEENT: Reports: no symptoms Cardiovascular: Reports: no symptoms Respiratory: Reports: no symptoms Gastrointestinal/Abdominal: Reports: no symptoms Genitourinary: Reports: no symptoms Neurologic/Psychiatric: Reports: pre-existing deficit Endocrine: Reports: no symptoms Hematologic/Lymphatic: Reports: no symptoms Allergies: Coded Allergies: No Known Allergies (Unverified , 06/05/19) All Systems: reviewed and negative except above Subjective no events. overall less confused. no cp/sob. more alert. more cooperative. still confused. seems at baseline. labs reviewed Objective Last 24 Hour Vital Signs Date Time Temp Pulse Resp B/P (MAP) Pulse Ox O2 Delivery O2 Flow Rate FiO2 08/23/19 14:00 109/54 08/23/19 12:40 97.4 68 18 127/41 (69) 97 08/23/19 12:00 109/54 08/23/19 09:07 63 145/52 08/23/19 09:00 Room Air 08/23/19 08:00 97.8 63 18 145/52 (83) 100 08/23/19 06:35 144/54 08/23/19 06:00 144/52 08/22/19 21:55 107/72 08/22/19 21:55 60 107/72 (84) 08/22/19 21:00 Room Air 08/22/19 20:00 97.4 59 18 159/50 (86) 98 Intake and Output 08/22/19 08/23/19 19:00 07:00 Intake Total 120 ml Output Total 400 ml Balance -280 ml Intake Oral 120 ml Output Urine Total 400 ml # Voids 2 Laboratory Tests 08/23/19 04:55: White Blood Count 4.7L, Red Blood Count 3.18L, Hemoglobin 9.5L, Hematocrit 28.1L , Mean Corpuscular Volume 88, Mean Corpuscular Hemoglobin 29.9, Mean Corpuscular Hemoglobin Concent 33.8, Red Cell Distribution Width 14.4, Platelet Count 221, Mean Platelet Volume 7.0, Neutrophils (%) (Auto) 70.1, Lymphocytes (% ) (Auto) 14.1L, Monocytes (%) (Auto) 9.8, Eosinophils (%) (Auto) 5.0H, Basophils (%) (Auto) 1.1, Sodium Level 142, Potassium Level 3.4L, Chloride Level 108H, Carbon Dioxide Level 26, Anion Gap 8, Blood Urea Nitrogen 34H, Creatinine 1.9H, Estimat Glomerular Filtration Rate 33.9, Glucose Level 103, Calcium Level 9.8, Phosphorus Level 2.7, Magnesium Level 2.2, Total Bilirubin 0.3, Aspartate Amino Transf (AST/SGOT) 34, Alanine Aminotransferase (ALT/SGPT) 30, Alkaline Phosphatase 128H, Total Protein 5.7L, Albumin 2.5L, Globulin 3.2, Albumin/Globulin Ratio 0.8L Height (Feet): 5 Height (Inches): 6.00 Weight (Pounds): 110 Objective General Appearance: WD/WN, alert, confused Neck: supple Cardiovascular: regular rhythm Respiratory/Chest: rhonchi - bilaterally Abdomen: normal bowel sounds, non tender, soft, no organomegaly, no mass Edema: no edema noted Arm (L), no edema noted Arm (R), no edema noted Leg (L), no edema noted Leg (R), no edema noted Pedal (L), no edema noted Pedal (R), no edema noted Generalized Neurologic: patient account representative II-XII grossly normal, alert, responsive Iggy Echavarria MD Aug 23, 2019 15:57
[2019-08-23 16:15] VITALS: BP 133/54
--- NOTE | 2019-08-23 19:25 | NUR ---
HAND-OFF: Report given to LUIS FERNANDO Ma.Endorsed about high fall status to oncoming shift. fall precaution is in place.
--- NOTE | 2019-08-23 19:25 | NUR ---
NURSE NOTES: Received report from LUIS FENRANDO Llamas. Pt is sleeping, lying supine; comfortably resting. Pt is calm and comfortable. No signs of acute distress noted. AOx1; able to make needs known. No IV site noted; MD aware and is ok. No erythema, bleeding, or infiltration noted. Bed at lowest position. Brakes on. Siderails up x2. Call light within reach. Will continue to monitor.
[2019-08-23 20:00] VITALS: BP 108/46
[2019-08-23] MEDS: Sennosides 8.6mg tab ORAL SCH (20:31)
--- NOTE | 2019-08-23 23:04 | Psych Consult Progress Note ---
Psychiatry Progress Note Psychiatry Progress Note Subjective the pt is improved still confused more oriented knows his name Medications Current Medications Medications (Trade) Dose Ordered Sig/Kristine Route PRN Reason Start Time Stop Time Status Last Admin Dose Admin Acetaminophen (Tylenol) 500 mg Q6H PRN ORAL Mild Pain/Temp > 100.5 08/16/19 03:00 09/05/19 08:55 08/18/19 22:28 Docusate Sodium (Colace) 250 mg DAILY ORAL 08/16/19 09:00 09/05/19 08:59 08/23/19 09:08 Escitalopram Oxalate (Lexapro) 10 mg DAILY ORAL 08/18/19 09:00 09/17/19 08:59 08/23/19 09:07 Finasteride (Proscar) 5 mg DAILY ORAL 08/16/19 09:00 11/05/19 15:44 08/23/19 09:08 Hydralazine HCl (Apresoline) 75 mg EVERY 8 HOURS ORAL 08/16/19 06:00 11/13/19 05:59 08/23/19 22:26 Lorazepam (Ativan 2mg/ml 1ml) 0.5 mg QID IM 08/22/19 09:00 08/29/19 08:59 08/23/19 21:53 Magnesium Hydroxide (Mom) 30 ml TIDPRN PRN ORAL Constipation 08/19/19 05:45 09/18/19 05:44 Nifedipine (Procardia XL) 30 mg BID ORAL 08/16/19 09:00 09/05/19 17:59 08/23/19 17:32 Nitroglycerin (Nitro-Bid) 1 inch Q6HR@0600,1200,1800 TOPIC 08/16/19 06:00 09/11/19 06:59 08/23/19 17:32 Pantoprazole (Protonix) 40 mg DAILY IVP 08/19/19 09:00 09/05/19 08:59 08/21/19 10:20 Potassium Chloride (K-Dur) 20 meq TWICE A DAY ORAL 08/23/19 13:02 11/21/19 13:01 08/23/19 17:31 Risperidone (RisperDAL) 2 mg BEDTIME ORAL 08/16/19 21:00 09/29/19 20:59 08/23/19 20:31 Sennosides (Senokot) 8.6 mg BEDTIME ORAL 08/16/19 21:00 09/05/19 20:59 08/23/19 20:31 Tamsulosin HCl (Flomax) 0.4 mg BID ORAL 08/18/19 18:00 09/05/19 20:59 08/23/19 17:32 Allergies: Coded Allergies: No Known Allergies (Unverified , 06/05/19) Objective Data Height (Feet): 5 Height (Inches): 6.00 Weight (Pounds): 110 General Appearance: WD/WN, no apparent distress, alert, confused Appearance: no abnormalities noted Behavior Mannerisms: good eye contact Mental Status Exam - Thought P: confusion, disorganized Mental Status Exam - Suicidal: not present Assessment/Plan Problem List: (1) Encephalopathy due to metabolic factor or toxin Assessment & Plan: 2. Psychotic disorder. SNOMED: 179814323 Status: stable, progressing, not improved Assessment/Plan: PLAN: 1. lexapro 2. risperidone. 3. dec Loco Wilson MD Aug 23, 2019 23:04
[2019-08-24] VITALS: BP 132/51
--- NOTE | 2019-08-24 01:14 | Progress Note ---
DATE: 08/23/2019 CARDIOLOGY PROGRESS NOTE SUBJECTIVE: The patient continues to improve with regard to behavioral issues. He is cooperative with staff. Less confused and agitated. PHYSICAL EXAMINATION: VITAL SIGNS: Blood pressure 127/41, heart rate 68, respirations 18. LUNGS: Bilateral breath sounds. CARDIAC: Regular rhythm and rate. Normal S1, S2. A 1/6 systolic murmur at base. ABDOMEN: Soft. EXTREMITIES: No edema. LABORATORY DATA: White count 4.7, hemoglobin 9.5. Potassium 3.4, BUN 34, creatinine 1.9, albumin 2.5. IMPRESSION: 1. Valvular cardiomyopathy. 2. Mitral regurgitation with valve replacement. 3. Junctional rhythm that is stable. 4. 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 5. Severe pulmonary hypertension. 6. Acute on chronic diastolic congestive heart failure, clinically compensated. 7. Acute on chronic renal failure, improved. 8. Hypokalemia. PLAN: 1. Continue to hold diuretics. 2. Replace potassium. 3. Monitor volume status and cardiorenal function. 4. Optimize medications while the patient await disposition to a longterm facility. 5. Check magnesium level. Gamaliel Salas M.D. DR: LUISA JOB#: [id number] CC:
[2019-08-24 04:00] VITALS: BP 150/57
[2019-08-24 05:23] LABS: EOSINOPHILS % (AUTO) 5.9 % (0.0-3.0); HEMATOCRIT 28.3 % (42.0-52.0); HEMOGLOBIN 9.4 G/DL (14.2-18.0); LYMPHOCYTES % (AUTO) 15.7 % (20.0-45.0); MEAN CORPUSCULAR VOLUME 88 FL (80-99); MONOCYTES % (AUTO) 9.6 % (1.0-10.0); NEUTROPHILS % (AUTO) 67.8 % (45.0-75.0); PLATELET COUNT 233 K/UL (150-450); RED BLOOD COUNT 3.22 M/UL (4.70-6.10); WHITE BLOOD COUNT 4.6 K/UL (4.8-10.8)
[2019-08-24] MEDS: Nitroglycerin 2% oint pkt TOPIC SCH ×3 (05:35→18:01)
[2019-08-24] MEDS: HydrALAZINE 50mg tab ORAL SCH ×3 (05:35→21:43)
[2019-08-24 05:53] LABS: ALANINE AMINOTRANSFERASE 26 U/L (12-78); ALBUMIN 2.7 G/DL (3.4-5.0); ALBUMIN/GLOBULIN RATIO 0.9 (1.0-2.7); ALKALINE PHOSPHATASE 124 U/L (46-116); ANION GAP 8 mmol/L (5-15); ASPARTATE AMINO TRANSFERASE 28 U/L (15-37); BILIRUBIN,TOTAL 0.4 MG/DL (0.2-1.0); BLOOD UREA NITROGEN 32 mg/dL (7-18); CALCIUM 9.6 MG/DL (8.5-10.1); CARBON DIOXIDE 26 MMOL/L (21-32); CHLORIDE 110 MMOL/L (98-107); CREATININE 1.8 MG/DL (0.55-1.30); POTASSIUM 3.7 MMOL/L (3.5-5.1); SODIUM 144 MMOL/L (136-145)
--- NOTE | 2019-08-24 07:08 | NUR ---
HAND-OFF: Report given to LUIS FERNANDO Roberts. Pt is sleeping and in stable condition. Plan of care endorsed.
--- NOTE | 2019-08-24 07:20 | NUR ---
NURSE NOTES: Pt is in bed, asleep. Breathing on room air, no respiratory distress noted. No s/s of pain or discomfort noted. Fall precaution in place. Bed in low and locked position, Bed alarm is on, and side rails two up. call light within reach. will do frequent rounds and continue to monitor the pt.
[2019-08-24 08:30] VITALS: BP 154/58
[2019-08-24] MEDS: LORazepam Inj 2mg/ml 1ml IM SCH ×3 (09:00→18:01)
[2019-08-24] MEDS: Pantoprazole Inj IVP SCH (09:00)
--- NOTE | 2019-08-24 09:08 | NUR ---
CASE MANAGEMENT:Discharge CM REACHED OUT TO [facility] ADMISSIONS DEPARTMENT PATIENT WAS PREVIOUSLY DENIED DUE TO NO BEDS CM INFORMED DR. TRISTAN MOORE WILL FOLLOW UP WITH ADMISSIONS DEPARTMENT Addendum: 08/24/19 at 0914 by MARCUS OBRIEN LVN NO INSTRUCTIONS GIVEN TO CM FROM TO REFER TO OTHER FACILITIES AT THIS TIME Addendum: 08/24/19 at 0940 by MARCUS OBRIEN LVN CM SPOKE WITH SHARON FROM ADMISSIONS DEPATMENT FACILITY MUST ISOLATE PATIENTS THAT ARE RETURNING BACK TO FACILITIES PATIENT MEMORY CARE ROOM IS NOT A PRIVATE ROOM PATIENT IS NOW REQUIRING SKILLED NEED NEW PLACEMENT IS NEEDED FOR DISCHARGE CONTRACTED FACILITY LIST OBTAINED FROM SUSAN MOORE T:[phone]
[2019-08-24] MEDS: Docusate 250mg cap ORAL SCH (09:26)
[2019-08-24] MEDS: Tamsulosin 0.4mg cap ORAL SCH ×2 (09:26→18:00)
--- NOTE | 2019-08-24 09:40 | NUR ---
CASE MANAGEMENT:REVIEW 08/24/19 SI: METABOLIC VS TOXIC ENCEPHALOPATHY PULMONARY EDEMA . BILATERAL PLEURAL EFFUSION. AC/CHR RENAL FAILURE. UTI. ANEMIA. GROSS HEMATURIA 97.5 66 20 154/58 97% ON RA BNP 4133 H/H 9.4/28.3 WBC 4.6 K+ 3.4 CL-110 BUN 32 CREAT 1.8 URIC ACID 7.6 ALKP 124 T. PROTEIN 5.8 ALBUMIN 2.7 IS:PROSCAR PO QD K-DUR PO BID PROCARDIA XL PO BID FLOMAX PO BID NITRO-BID SENOKOT PO QHS HYDRALAZINE PO Q8HR IV PROTONIX QS RISPERDAL PO QHS \: 3MED SURG STATUS DCP: PATIENT IS REQUIRING SKILLED NEED AT THIS TIME; NO BED AVAILABLE TO ACCOMMODATE DUE TO COVID-19 CRISIS; FACILITY REQUIRES THAT RETURNING PATIENT BE ISOLATED FOR 14 DAY PRIOR WHEN RETURN, BUT AGAIN AT THIS TIME NO AVAILABLE BEDS AT [facility]. CM WILL INFORM MD AND REFER PER MD REQUEST PLAN: DC CRITICAL POWER TECHNICIAN REFERRING PATIENT TO CONTRACTED FACILITIES MONITOR LABS MED ADJUSTMENT PER NEPHRO: KIDNEY US PENDING RESULTS
--- NOTE | 2019-08-24 10:33 | NUR ---
NURSE NOTES: Hold scheduled scheduled Lorazem Im @ 0900, pt is sedated.
--- NOTE | 2019-08-24 11:00 | Pulmonology Progress Note ---
Assessment/Plan Assessment/Plan IMPRESSION: 1. Pleural effusions, small bilateral. 2. Atelectasis. 3. Pulmonary edema, questionable. 4. Hypertension. 5. Hyperlipidemia. DISCUSSION: The patient is saturating well on room air or low flow O2. I will follow as chief lock operator. No new recommendations Kimani Hahn M.D. Subjective Interval Events: None new Constitutional: Reports: no symptoms HEENT: Repors: no symptoms Respiratory: Reports: no symptoms Cardiovascular: Reports: no symptoms Gastrointestinal/Abdominal: Reports: no symptoms Allergies: Coded Allergies: No Known Allergies (Unverified , 06/05/19) Objective Last 24 Hour Vital Signs Date Time Temp Pulse Resp B/P (MAP) Pulse Ox O2 Delivery O2 Flow Rate FiO2 08/24/19 09:26 66 154/58 08/24/19 09:00 Room Air 08/24/19 08:30 97.5 66 20 154/58 (90) 97 08/24/19 05:35 150/57 08/24/19 05:35 150/57 08/24/19 04:00 96.5 64 20 150/57 (88) 98 08/24/19 00:00 96.9 70 18 132/51 (78) 97 08/23/19 22:26 132/51 08/23/19 21:00 Room Air 08/23/19 20:00 96.9 73 20 108/46 (66) 99 08/23/19 17:32 142/53 08/23/19 17:32 62 142/53 08/23/19 16:15 97.6 62 18 133/54 (80) 97 08/23/19 14:00 109/54 08/23/19 12:40 97.4 68 18 127/41 (69) 97 08/23/19 12:00 109/54 Intake and Output 08/23/19 08/24/19 19:00 07:00 Intake Total 100 ml Output Total 125 ml Balance -25 ml Intake Oral 100 ml Output Urine Total 125 ml # Voids 4 General Appearance: no acute distress HEENT: normocephalic Respiratory/Chest: chest wall non-tender, lungs clear Cardiovascular: normal peripheral pulses Abdomen: normal bowel sounds Laboratory Tests 08/24/19 05:05: White Blood Count 4.6L, Red Blood Count 3.22L, Hemoglobin 9.4L, Hematocrit 28.3L , Mean Corpuscular Volume 88, Mean Corpuscular Hemoglobin 29.4, Mean Corpuscular Hemoglobin Concent 33.4, Red Cell Distribution Width 14.0, Platelet Count 233, Mean Platelet Volume 5.6L, Neutrophils (%) (Auto) 67.8, Lymphocytes ( %) (Auto) 15.7L, Monocytes (%) (Auto) 9.6, Eosinophils (%) (Auto) 5.9H, Basophils (%) (Auto) 1.0, Sodium Level 144, Potassium Level 3.7, Chloride Level 110H, Carbon Dioxide Level 26, Anion Gap 8, Blood Urea Nitrogen 32H, Creatinine 1.8H, Estimat Glomerular Filtration Rate 36.1, Glucose Level 106, Uric Acid 7.6H , Calcium Level 9.6, Magnesium Level 2.1, Total Bilirubin 0.4, Aspartate Amino Transf (AST/SGOT) 28, Alanine Aminotransferase (ALT/SGPT) 26, Alkaline Phosphatase 124H, Pro-B-Type Natriuretic Peptide 4133H, Total Protein 5.8L, Albumin 2.7L, Globulin 3.1, Albumin/Globulin Ratio 0.9L Current Medications Medications (Trade) Dose Ordered Sig/Kristine Route PRN Reason Start Time Stop Time Status Last Admin Dose Admin Acetaminophen (Tylenol) 500 mg Q6H PRN ORAL Mild Pain/Temp > 100.5 08/16/19 03:00 09/05/19 08:55 08/18/19 22:28 Docusate Sodium (Colace) 250 mg DAILY ORAL 08/16/19 09:00 09/05/19 08:59 08/24/19 09:26 Escitalopram Oxalate (Lexapro) 10 mg DAILY ORAL 08/18/19 09:00 09/17/19 08:59 08/24/19 09:26 Finasteride (Proscar) 5 mg DAILY ORAL 08/16/19 09:00 11/05/19 15:44 08/24/19 09:26 Hydralazine HCl (Apresoline) 75 mg EVERY 8 HOURS ORAL 08/16/19 06:00 11/13/19 05:59 08/24/19 05:35 Lorazepam (Ativan 2mg/ml 1ml) 0.5 mg TID IM 08/24/19 09:00 08/31/19 08:59 Magnesium Hydroxide (Mom) 30 ml TIDPRN PRN ORAL Constipation 08/19/19 05:45 09/18/19 05:44 Nifedipine (Procardia XL) 30 mg BID ORAL 08/16/19 09:00 09/05/19 17:59 08/24/19 09:26 Nitroglycerin (Nitro-Bid) 1 inch Q6HR@0600,1200,1800 TOPIC 08/16/19 06:00 09/11/19 06:59 08/24/19 05:35 Pantoprazole (Protonix) 40 mg DAILY IVP 08/19/19 09:00 09/05/19 08:59 08/21/19 10:20 Potassium Chloride (K-Dur) 20 meq TWICE A DAY ORAL 08/23/19 13:02 11/21/19 13:01 08/24/19 09:26 Risperidone (RisperDAL) 2 mg BEDTIME ORAL 08/16/19 21:00 09/29/19 20:59 08/23/19 20:31 Sennosides (Senokot) 8.6 mg BEDTIME ORAL 08/16/19 21:00 09/05/19 20:59 08/23/19 20:31 Tamsulosin HCl (Flomax) 0.4 mg BID ORAL 08/18/19 18:00 09/05/19 20:59 08/24/19 09:26 Kimani Hahn MD Aug 24, 2019 11:00
--- NOTE | 2019-08-24 11:06 | Urology Progress Note ---
Assessment/Plan Status: stable, progressing, not improved Assessment/Plan: 1. Gross hematuria, presumably secondary to Doshi trauma. 2. BPH. 3. Urinary retention. 4. Neurogenic bladder. 5. Pyuria. 6. Proteinuria. 7. Renal insufficiency, which appears to be acute on chronic. 8. Rule out urethral stricture. monitor clinically doshi removed cont flomax and proscar s/p abx off anticoagulation, resume? restraints PRN cysto at some point monitor PVR and reinsert doshi PRN renal imaging Subjective Allergies: Coded Allergies: No Known Allergies (Unverified , 06/05/19) Subjective all noted, confused, doshi out, incontinent, condom cath Objective Last 24 Hour Vital Signs Date Time Temp Pulse Resp B/P (MAP) Pulse Ox O2 Delivery O2 Flow Rate FiO2 08/24/19 09:26 66 154/58 08/24/19 09:00 Room Air 08/24/19 08:30 97.5 66 20 154/58 (90) 97 08/24/19 05:35 150/57 08/24/19 05:35 150/57 08/24/19 04:00 96.5 64 20 150/57 (88) 98 08/24/19 00:00 96.9 70 18 132/51 (78) 97 08/23/19 22:26 132/51 08/23/19 21:00 Room Air 08/23/19 20:00 96.9 73 20 108/46 (66) 99 08/23/19 17:32 142/53 08/23/19 17:32 62 142/53 08/23/19 16:15 97.6 62 18 133/54 (80) 97 08/23/19 14:00 109/54 08/23/19 12:40 97.4 68 18 127/41 (69) 97 08/23/19 12:00 109/54 Intake and Output 08/23/19 08/24/19 19:00 07:00 Intake Total 100 ml Output Total 125 ml Balance -25 ml Intake Oral 100 ml Output Urine Total 125 ml # Voids 4 Microbiology Date/Time Source Procedure Growth Status 08/06/19 04:45 Nasal Nares - Final Complete 08/06/19 04:45 Nasal Nares - Final Complete 08/06/19 04:45 Rectum VRE Culture - Final NO VANCOMYCIN RESISTANT ENTEROCOCCUS ... Complete Current Medications Medications (Trade) Dose Ordered Sig/Kristine Route PRN Reason Start Time Stop Time Status Last Admin Dose Admin Acetaminophen (Tylenol) 500 mg Q6H PRN ORAL Mild Pain/Temp > 100.5 08/16/19 03:00 09/05/19 08:55 08/18/19 22:28 Docusate Sodium (Colace) 250 mg DAILY ORAL 08/16/19 09:00 09/05/19 08:59 08/24/19 09:26 Escitalopram Oxalate (Lexapro) 10 mg DAILY ORAL 08/18/19 09:00 09/17/19 08:59 08/24/19 09:26 Finasteride (Proscar) 5 mg DAILY ORAL 08/16/19 09:00 11/05/19 15:44 08/24/19 09:26 Hydralazine HCl (Apresoline) 75 mg EVERY 8 HOURS ORAL 08/16/19 06:00 11/13/19 05:59 08/24/19 05:35 Lorazepam (Ativan 2mg/ml 1ml) 0.5 mg TID IM 08/24/19 09:00 08/31/19 08:59 Magnesium Hydroxide (Mom) 30 ml TIDPRN PRN ORAL Constipation 08/19/19 05:45 09/18/19 05:44 Nifedipine (Procardia XL) 30 mg BID ORAL 08/16/19 09:00 09/05/19 17:59 08/24/19 09:26 Nitroglycerin (Nitro-Bid) 1 inch Q6HR@0600,1200,1800 TOPIC 08/16/19 06:00 09/11/19 06:59 08/24/19 05:35 Pantoprazole (Protonix) 40 mg DAILY IVP 08/19/19 09:00 09/05/19 08:59 08/21/19 10:20 Potassium Chloride (K-Dur) 20 meq TWICE A DAY ORAL 08/23/19 13:02 11/21/19 13:01 08/24/19 09:26 Risperidone (RisperDAL) 2 mg BEDTIME ORAL 08/16/19 21:00 09/29/19 20:59 08/23/19 20:31 Sennosides (Senokot) 8.6 mg BEDTIME ORAL 08/16/19 21:00 09/05/19 20:59 08/23/19 20:31 Tamsulosin HCl (Flomax) 0.4 mg BID ORAL 08/18/19 18:00 09/05/19 20:59 08/24/19 09:26 Laboratory Tests 08/24/19 05:05: White Blood Count 4.6L, Red Blood Count 3.22L, Hemoglobin 9.4L, Hematocrit 28.3L , Mean Corpuscular Volume 88, Mean Corpuscular Hemoglobin 29.4, Mean Corpuscular Hemoglobin Concent 33.4, Red Cell Distribution Width 14.0, Platelet Count 233, Mean Platelet Volume 5.6L, Neutrophils (%) (Auto) 67.8, Lymphocytes ( %) (Auto) 15.7L, Monocytes (%) (Auto) 9.6, Eosinophils (%) (Auto) 5.9H, Basophils (%) (Auto) 1.0, Sodium Level 144, Potassium Level 3.7, Chloride Level 110H, Carbon Dioxide Level 26, Anion Gap 8, Blood Urea Nitrogen 32H, Creatinine 1.8H, Estimat Glomerular Filtration Rate 36.1, Glucose Level 106, Uric Acid 7.6H , Calcium Level 9.6, Magnesium Level 2.1, Total Bilirubin 0.4, Aspartate Amino Transf (AST/SGOT) 28, Alanine Aminotransferase (ALT/SGPT) 26, Alkaline Phosphatase 124H, Pro-B-Type Natriuretic Peptide 4133H, Total Protein 5.8L, Albumin 2.7L, Globulin 3.1, Albumin/Globulin Ratio 0.9L Height (Feet): 5 Height (Inches): 6.00 Weight (Pounds): 105 Objective exam stable abdomen soft urine grossly yellow Bamshad,Miki Perry MD Aug 24, 2019 11:06
--- NOTE | 2019-08-24 11:22 | Nephrology Progress Note ---
Assessment/Plan Problem List: (1) Renal failure (ARF), acute on chronic Assessment: Serum creatinine stabilizing (2) Falls frequently (3) UTI (urinary tract infection) Assessment: and hematuria (4) Anemia (5) Dehydration (6) Encephalopathy due to metabolic factor or toxin Assessment Frequent falls Acute renal failure with underlying dehydration Anemia, underlying etiology unclear UTI (urinary tract infection) Toxic metabolic encephalopathy Plan P.o. intake variable Oral potassium supplement today previously: Increase Flomax to twice daily Correct electrolytes as needed Transfusion as needed 2D echocardiogram ejection fraction 60% Kidney ultrasound pending results Monitor renal parameters Avoid nephrotoxics Antibiotics for UTI Continue per consultants Subjective ROS Limited/Unobtainable: No Constitutional: Reports: malaise, weakness Objective Objective Last 24 Hour Vital Signs Date Time Temp Pulse Resp B/P (MAP) Pulse Ox O2 Delivery O2 Flow Rate FiO2 08/24/19 09:26 66 154/58 08/24/19 09:00 Room Air 08/24/19 08:30 97.5 66 20 154/58 (90) 97 08/24/19 05:35 150/57 08/24/19 05:35 150/57 08/24/19 04:00 96.5 64 20 150/57 (88) 98 08/24/19 00:00 96.9 70 18 132/51 (78) 97 08/23/19 22:26 132/51 08/23/19 21:00 Room Air 08/23/19 20:00 96.9 73 20 108/46 (66) 99 08/23/19 17:32 142/53 08/23/19 17:32 62 142/53 08/23/19 16:15 97.6 62 18 133/54 (80) 97 08/23/19 14:00 109/54 08/23/19 12:40 97.4 68 18 127/41 (69) 97 08/23/19 12:00 109/54 Intake and Output 08/23/19 08/24/19 19:00 07:00 Intake Total 100 ml Output Total 125 ml Balance -25 ml Intake Oral 100 ml Output Urine Total 125 ml # Voids 4 Laboratory Tests 08/24/19 05:05: White Blood Count 4.6L, Red Blood Count 3.22L, Hemoglobin 9.4L, Hematocrit 28.3L , Mean Corpuscular Volume 88, Mean Corpuscular Hemoglobin 29.4, Mean Corpuscular Hemoglobin Concent 33.4, Red Cell Distribution Width 14.0, Platelet Count 233, Mean Platelet Volume 5.6L, Neutrophils (%) (Auto) 67.8, Lymphocytes ( %) (Auto) 15.7L, Monocytes (%) (Auto) 9.6, Eosinophils (%) (Auto) 5.9H, Basophils (%) (Auto) 1.0, Sodium Level 144, Potassium Level 3.7, Chloride Level 110H, Carbon Dioxide Level 26, Anion Gap 8, Blood Urea Nitrogen 32H, Creatinine 1.8H, Estimat Glomerular Filtration Rate 36.1, Glucose Level 106, Uric Acid 7.6H , Calcium Level 9.6, Magnesium Level 2.1, Total Bilirubin 0.4, Aspartate Amino Transf (AST/SGOT) 28, Alanine Aminotransferase (ALT/SGPT) 26, Alkaline Phosphatase 124H, Pro-B-Type Natriuretic Peptide 4133H, Total Protein 5.8L, Albumin 2.7L, Globulin 3.1, Albumin/Globulin Ratio 0.9L Height (Feet): 5 Height (Inches): 6.00 Weight (Pounds): 105 General Appearance: no apparent distress Objective No change Juan Jade MD Aug 24, 2019 11:22
[2019-08-24 11:52] VITALS: BP 104/62
--- NOTE | 2019-08-24 13:12 | NUR ---
P.T Weekly Progress Notes: late entry 08/23/19 Pt being seen this past of skilled P.T services. Tx consisted of ADL/functional mobility training,thera ex, NMRE for balance and gait training. Pt has been more awake and participative this last few P.T sessions. Pt currently requires MIN-MOD A x 1 for bed mobilities and MIN-MAX A x 1 for transfer depending on activity tolerance and participation level. Pt was able to ambulate 4-5 tiny steps with MOD A X 1 using the FWW the from the last P.T session. Will continue with POC and progression of activity. Recommend SNF for further rehab intervention at [facility].
--- NOTE | 2019-08-24 14:16 | NUR ---
ST NOTES: SWALLOW STATUS D/C PLAN UPDATES PER FOREST PATHOLOGY ASSOCIATE PROFESSOR: DCP: PATIENT IS REQUIRING SKILLED NEED AT THIS TIME; NO BED AVAILABLE TO ACCOMMODATE DUE TO COVID-19 CRISIS; FACILITY REQUIRES THAT RETURNING PATIENT BE ISOLATED FOR 14 DAY PRIOR WHEN RETURN, BUT AGAIN AT THIS TIME NO AVAILABLE BEDS AT [facility]. SEEN FOR DYSPHAGIA, NOT ALERT FOR PO TRIALS. PER RN, PATIENT INTAKE IS VARIABLY POOR 25% BUT NO OVERT S/S OF ASPIRATION. GOALS FOR INTAKE NOT CONSISTENTLY MET IT FLUCTUATES BETWEEN 25/50/100% ON THE LIQUIFIED PUREED LIKE NECTAR THICK LIQUID SOUP DIET TSP ONLY. PER RN, ENSURE ENLIVE, HIGH CALORIE SUPPLEMENT IS NOT BEING SENT UP. ST CALLED THE KITCHEN AND ASKED THEM TO SEND UP ENSURE TID. NEW STAFF (LUIS FERNANDO LINDSEY) EDUCATED/TRAINED IN POSTED PRECAUTIONS. PLAN: F/UP WITH PLAN OF CARE IN SWALLOW EVAL AND MBSS (VIDEO) REPORTS
--- NOTE | 2019-08-24 14:17 | NUR ---
*-*DISCHARGE PLANNING*-* PATIENT HAS BEEN REFERRED TO: [facility] P:[phone] F:[phone] [facility] P: [phone] F: [phone] [facility] P: [phone] F: [phone] [facility] P: [phone] F: [phone] [facility] P: [phone] F: [phone] [facility] P: [phone] F: [phone] [facility] P: [phone] F: [phone] [facility] P: [phone] F: [phone] [facility] P: [phone] F: [phone] [facility] P: [phone] F: [phone] ~~~~CLINICALS FAXED
--- NOTE | 2019-08-24 15:21 | NUR ---
NURSE NOTES: pt ate 25%. breakfast,50% lunch and drink ensure 100%.
--- NOTE | 2019-08-24 15:35 | NUR ---
*-*INSURANCE*-* UPDATED CLINICALS AND REVIEWS HAVE BEEN FAXED TO: DEE SAL[facility] F: [phone] REF# [id number]
[2019-08-24 16:11] VITALS: BP 110/61
--- NOTE | 2019-08-24 19:24 | NUR ---
NURSE NOTES: Received report from LUIS FERNANDO Esposito. Pt is awake, lying semi-hampton's; comfortably resting. No signs of acute distress noted. Pt is a little agitated, dishelved, and a little drowsy. Pt found dirty and unkempt with condom catheter out and gown unworn. AOx1; unable to make needs known. No IV site noted; MD aware and okay with it. No erythema, bleeding, or infiltration noted. Bed at lowest position. Brakes on. Siderails up x3. Call light within reach. Will continue to monitor.
--- NOTE | 2019-08-24 19:36 | NUR ---
HAND-OFF: Report given to LUIS FERNANDO Ma.Endorsed about high fall status to oncoming shift. fall precaution is in place.
--- NOTE | 2019-08-24 19:58 | General Progress Note ---
Assessment/Plan Problem List: (1) CHF (congestive heart failure) ICD Codes: I50.9 - Heart failure, unspecified SNOMED: 46648845 (2) Renal failure (ARF), acute on chronic ICD Codes: N17.9 - Acute kidney failure, unspecified; N18.9 - Chronic kidney disease, unspecified SNOMED: 735781868 (3) Encephalopathy due to metabolic factor or toxin SNOMED: 953115510 (4) Gross hematuria ICD Codes: R31.0 - Gross hematuria SNOMED: 367247111 (5) Falls frequently ICD Codes: R29.6 - Repeated falls SNOMED: 946405371 (6) Dehydration ICD Codes: E86.0 - Dehydration SNOMED: 89865176 (7) UTI (urinary tract infection) ICD Codes: N39.0 - Urinary tract infection, site not specified SNOMED: 07625833 (8) Anemia ICD Codes: D64.9 - Anemia, unspecified SNOMED: 865017935 Status: stable, progressing, not improved Assessment/Plan: off restraints. cardiac rx check room air o2 sat pt/ot dc planning to snf once bed found at accepting snf Subjective ROS Limited/Unobtainable: Yes Constitutional: Reports: malaise, weakness HEENT: Reports: no symptoms Cardiovascular: Reports: no symptoms Respiratory: Reports: cough Gastrointestinal/Abdominal: Reports: no symptoms Genitourinary: Reports: no symptoms Neurologic/Psychiatric: Reports: no symptoms Endocrine: Reports: no symptoms Hematologic/Lymphatic: Reports: no symptoms Allergies: Coded Allergies: No Known Allergies (Unverified , 06/05/19) All Systems: reviewed and negative except above Subjective There have been no significant overnight changes. Patient remains confused and is mumbling incomprehensibly. He is been cooperative with care and noncombative. Case management has had a difficult time finding placement. Objective Last 24 Hour Vital Signs Date Time Temp Pulse Resp B/P (MAP) Pulse Ox O2 Delivery O2 Flow Rate FiO2 08/24/19 18:01 133/62 08/24/19 18:01 63 133/62 08/24/19 16:11 97.2 65 20 110/61 (77) 97 08/24/19 14:00 101/56 08/24/19 12:00 100/63 08/24/19 11:52 97.8 70 20 104/62 (76) 96 08/24/19 09:26 66 154/58 08/24/19 09:00 Room Air 08/24/19 08:30 97.5 66 20 154/58 (90) 97 08/24/19 05:35 150/57 08/24/19 05:35 150/57 08/24/19 04:00 96.5 64 20 150/57 (88) 98 08/24/19 00:00 96.9 70 18 132/51 (78) 97 08/23/19 22:26 132/51 08/23/19 21:00 Room Air 08/23/19 20:00 96.9 73 20 108/46 (66) 99 Intake and Output 08/23/19 08/24/19 19:00 07:00 Intake Total 100 ml Output Total 125 ml Balance -25 ml Intake Oral 100 ml Output Urine Total 125 ml # Voids 4 Laboratory Tests 08/24/19 05:05: White Blood Count 4.6L, Red Blood Count 3.22L, Hemoglobin 9.4L, Hematocrit 28.3L , Mean Corpuscular Volume 88, Mean Corpuscular Hemoglobin 29.4, Mean Corpuscular Hemoglobin Concent 33.4, Red Cell Distribution Width 14.0, Platelet Count 233, Mean Platelet Volume 5.6L, Neutrophils (%) (Auto) 67.8, Lymphocytes ( %) (Auto) 15.7L, Monocytes (%) (Auto) 9.6, Eosinophils (%) (Auto) 5.9H, Basophils (%) (Auto) 1.0, Sodium Level 144, Potassium Level 3.7, Chloride Level 110H, Carbon Dioxide Level 26, Anion Gap 8, Blood Urea Nitrogen 32H, Creatinine 1.8H, Estimat Glomerular Filtration Rate 36.1, Glucose Level 106, Uric Acid 7.6H , Calcium Level 9.6, Magnesium Level 2.1, Total Bilirubin 0.4, Aspartate Amino Transf (AST/SGOT) 28, Alanine Aminotransferase (ALT/SGPT) 26, Alkaline Phosphatase 124H, Pro-B-Type Natriuretic Peptide 4133H, Total Protein 5.8L, Albumin 2.7L, Globulin 3.1, Albumin/Globulin Ratio 0.9L Height (Feet): 5 Height (Inches): 6.00 Weight (Pounds): 105 Objective General Appearance: WD/WN, alert, confused Neck: supple Cardiovascular: regular rhythm Respiratory/Chest: rhonchi - bilaterally Abdomen: normal bowel sounds, non tender, soft, no organomegaly, no mass Edema: no edema noted Arm (L), no edema noted Arm (R), no edema noted Leg (L), no edema noted Leg (R), no edema noted Pedal (L), no edema noted Pedal (R), no edema noted Generalized Neurologic: bridge tender II-XII grossly normal, alert, responsive Iggy Echavarria MD Aug 24, 2019 19:58
[2019-08-24 20:00] VITALS: BP 118/57
[2019-08-24] MEDS: Sennosides 8.6mg tab ORAL SCH (21:43)
--- NOTE | 2019-08-24 22:32 | Psych Consult Progress Note ---
Psychiatry Progress Note Psychiatry Progress Note Medications Current Medications Medications (Trade) Dose Ordered Sig/Kristine Route PRN Reason Start Time Stop Time Status Last Admin Dose Admin Acetaminophen (Tylenol) 500 mg Q6H PRN ORAL Mild Pain/Temp > 100.5 08/16/19 03:00 09/05/19 08:55 08/18/19 22:28 Docusate Sodium (Colace) 250 mg DAILY ORAL 08/16/19 09:00 09/05/19 08:59 08/24/19 09:26 Escitalopram Oxalate (Lexapro) 10 mg DAILY ORAL 08/18/19 09:00 09/17/19 08:59 08/24/19 09:26 Finasteride (Proscar) 5 mg DAILY ORAL 08/16/19 09:00 11/05/19 15:44 08/24/19 09:26 Hydralazine HCl (Apresoline) 75 mg EVERY 8 HOURS ORAL 08/16/19 06:00 11/13/19 05:59 08/24/19 21:43 Lorazepam (Ativan 2mg/ml 1ml) 0.5 mg TID IM 08/24/19 09:00 08/31/19 08:59 08/24/19 18:01 Magnesium Hydroxide (Mom) 30 ml TIDPRN PRN ORAL Constipation 08/19/19 05:45 09/18/19 05:44 Nifedipine (Procardia XL) 30 mg BID ORAL 08/16/19 09:00 09/05/19 17:59 08/24/19 18:01 Nitroglycerin (Nitro-Bid) 1 inch Q6HR@0600,1200,1800 TOPIC 08/16/19 06:00 09/11/19 06:59 08/24/19 18:01 Pantoprazole (Protonix) 40 mg DAILY IVP 08/19/19 09:00 09/05/19 08:59 08/21/19 10:20 Potassium Chloride (K-Dur) 20 meq TWICE A DAY ORAL 08/23/19 13:02 11/21/19 13:01 08/24/19 18:02 Risperidone (RisperDAL) 2 mg BEDTIME ORAL 08/16/19 21:00 09/29/19 20:59 08/24/19 21:43 Sennosides (Senokot) 8.6 mg BEDTIME ORAL 08/16/19 21:00 09/05/19 20:59 08/24/19 21:43 Tamsulosin HCl (Flomax) 0.4 mg BID ORAL 08/18/19 18:00 09/05/19 20:59 08/24/19 18:00 Allergies: Coded Allergies: No Known Allergies (Unverified , 06/05/19) Objective Data Height (Feet): 5 Height (Inches): 6.00 Weight (Pounds): 105 Assessment/Plan Problem List: (1) Encephalopathy due to metabolic factor or toxin Assessment & Plan: 2. Psychotic disorder. SNOMED: 850260958 Status: stable, progressing, not improved Assessment/Plan: PLAN: 1. lexapro 2. risperidone. 3. dec Loco Wilson MD Aug 24, 2019 22:32
[2019-08-25] VITALS: BP 98/55
--- NOTE | 2019-08-25 02:45 | Progress Note ---
DATE: 08/24/2019 CARDIOLOGY PROGRESS NOTE SUBJECTIVE: Patient remains confused. PHYSICAL EXAMINATION: VITAL SIGNS: Blood pressure 110/50, heart rate 65, respirations 20, afebrile, oxygen saturation adequate on room air. LUNGS: Good breath sounds. CARDIAC: Regular rhythm and rate. Normal S1, S2. A 2/6 systolic murmur at apex. ABDOMEN: Soft, nontender. EXTREMITIES: With trace edema. LABORATORY DATA: White count 4.6, hemoglobin 9.4. Natriuretic peptide 4100. BUN 32, creatinine 1.8. IMPRESSION: 1. Hemodynamically improved with acute on chronic diastolic congestive heart failure, better compensated and renal function stabilizing. 2. Patient has advanced valvular heart disease with severe pulmonary hypertension and underlying conduction system disease with junctional rhythm. PLAN: 1. Continue current cardiovascular regimen. 2. Recheck chest x-ray. 3. Reassess maintenance dose diuretic. 4. Discharge planning. Gamaliel Salas M.D. DR: LUISA JOB#: [id number] CC:
[2019-08-25 04:00] VITALS: BP 171/60
[2019-08-25] MEDS: HydrALAZINE 50mg tab ORAL SCH ×3 (05:53→21:21)
[2019-08-25] MEDS: Nitroglycerin 2% oint pkt TOPIC SCH ×3 (05:53→17:31)
--- NOTE | 2019-08-25 07:05 | NUR ---
HAND-OFF: Report given to LUIS FERNANDO Roberts. Pt is sleeping and in stable condition. Plan of care endorsed.
--- NOTE | 2019-08-25 07:19 | NUR ---
NURSE NOTES: Pt is in bed, asleep. No s/s of pain or discomfort noted. Fall precaution in place. Bed in low and locked position, Bed alarm is on, and side rails two up. call light within reach. will do frequent rounds and continue to monitor the pt.
[2019-08-25 08:33] VITALS: BP 155/57
--- NOTE | 2019-08-25 08:40 | Urology Progress Note ---
Assessment/Plan Status: stable, progressing, not improved Assessment/Plan: 1. Gross hematuria, presumably secondary to Doshi trauma. 2. BPH. 3. Urinary retention. 4. Neurogenic bladder. 5. Pyuria. 6. Proteinuria. 7. Renal insufficiency, which appears to be acute on chronic. 8. Rule out urethral stricture. monitor clinically doshi removed cont flomax and proscar s/p abx off anticoagulation, resume? restraints PRN cysto at some point monitor PVR and reinsert doshi PRN renal imaging Subjective Allergies: Coded Allergies: No Known Allergies (Unverified , 06/05/19) Subjective all noted, confused, doshi out, incontinent, condom cath Objective Last 24 Hour Vital Signs Date Time Temp Pulse Resp B/P (MAP) Pulse Ox O2 Delivery O2 Flow Rate FiO2 08/25/19 08:33 97.2 64 18 155/57 (89) 99 08/25/19 05:53 171/60 08/25/19 05:53 171/60 08/25/19 04:00 96.7 77 20 171/60 (97) 95 08/25/19 00:00 97.9 83 18 98/55 (69) 98 08/24/19 21:43 138/72 08/24/19 21:00 Room Air 08/24/19 20:00 98.2 82 16 118/57 (77) 97 08/24/19 18:01 133/62 08/24/19 18:01 63 133/62 08/24/19 16:11 97.2 65 20 110/61 (77) 97 08/24/19 14:00 101/56 08/24/19 12:00 100/63 08/24/19 11:52 97.8 70 20 104/62 (76) 96 08/24/19 09:26 66 154/58 08/24/19 09:00 Room Air Intake and Output 08/24/19 08/25/19 19:00 07:00 Intake Total 420 ml 474 ml Output Total 450 ml 100 ml Balance -30 ml 374 ml Intake Oral 420 ml 474 ml Output Urine Total 450 ml 100 ml Microbiology Date/Time Source Procedure Growth Status 08/06/19 04:45 Nasal Nares - Final Complete 08/06/19 04:45 Nasal Nares - Final Complete 08/06/19 04:45 Rectum VRE Culture - Final NO VANCOMYCIN RESISTANT ENTEROCOCCUS ... Complete Current Medications Medications (Trade) Dose Ordered Sig/Kristine Route PRN Reason Start Time Stop Time Status Last Admin Dose Admin Acetaminophen (Tylenol) 500 mg Q6H PRN ORAL Mild Pain/Temp > 100.5 08/16/19 03:00 09/05/19 08:55 08/18/19 22:28 Docusate Sodium (Colace) 250 mg DAILY ORAL 08/16/19 09:00 09/05/19 08:59 08/24/19 09:26 Escitalopram Oxalate (Lexapro) 10 mg DAILY ORAL 08/18/19 09:00 09/17/19 08:59 08/24/19 09:26 Finasteride (Proscar) 5 mg DAILY ORAL 08/16/19 09:00 11/05/19 15:44 08/24/19 09:26 Hydralazine HCl (Apresoline) 75 mg EVERY 8 HOURS ORAL 08/16/19 06:00 11/13/19 05:59 08/25/19 05:53 Lorazepam (Ativan 2mg/ml 1ml) 0.5 mg TID IM 08/24/19 09:00 08/31/19 08:59 08/24/19 18:01 Magnesium Hydroxide (Mom) 30 ml TIDPRN PRN ORAL Constipation 08/19/19 05:45 09/18/19 05:44 Nifedipine (Procardia XL) 30 mg BID ORAL 08/16/19 09:00 09/05/19 17:59 08/24/19 18:01 Nitroglycerin (Nitro-Bid) 1 inch Q6HR@0600,1200,1800 TOPIC 08/16/19 06:00 09/11/19 06:59 08/25/19 05:53 Pantoprazole (Protonix) 40 mg DAILY IVP 08/19/19 09:00 09/05/19 08:59 08/21/19 10:20 Potassium Chloride (K-Dur) 20 meq TWICE A DAY ORAL 08/23/19 13:02 11/21/19 13:01 08/24/19 18:02 Risperidone (RisperDAL) 2 mg BEDTIME ORAL 08/16/19 21:00 09/29/19 20:59 08/24/19 21:43 Sennosides (Senokot) 8.6 mg BEDTIME ORAL 08/16/19 21:00 09/05/19 20:59 08/24/19 21:43 Tamsulosin HCl (Flomax) 0.4 mg BID ORAL 08/18/19 18:00 09/05/19 20:59 08/24/19 18:00 Height (Feet): 5 Height (Inches): 6.00 Weight (Pounds): 105 Objective exam stable abdomen soft urine grossly yellow Bamshad,Miki Perry MD Aug 25, 2019 08:40
[2019-08-25] MEDS: Pantoprazole Inj IVP SCH (09:00)
[2019-08-25] MEDS: Docusate 250mg cap ORAL SCH (09:01)
[2019-08-25] MEDS: Tamsulosin 0.4mg cap ORAL SCH ×2 (09:02→17:30)
[2019-08-25] MEDS: LORazepam Inj 2mg/ml 1ml IM SCH ×3 (09:02→18:00)
--- NOTE | 2019-08-25 09:17 | Diagnostic Imaging Report ---
Indication: Chest pain Technique: One view of the chest Comparison: 08/11/2019 Findings: Previously demonstrated bilateral pleural effusions are no longer evident. There is questionable hazy airspace disease in the left perihilar region and right infrahilar region. Heart size is normal. Impression: Since 08/11/2019, interim improvement of previously demonstrated bilateral parenchymal disease, with some residual Previously demonstrated pleural effusions have markedly improved or resolved
--- NOTE | 2019-08-25 10:22 | General Progress Note ---
Assessment/Plan Problem List: (1) CHF (congestive heart failure) ICD Codes: I50.9 - Heart failure, unspecified SNOMED: 63784307 (2) Renal failure (ARF), acute on chronic ICD Codes: N17.9 - Acute kidney failure, unspecified; N18.9 - Chronic kidney disease, unspecified SNOMED: 782934179 (3) Encephalopathy due to metabolic factor or toxin SNOMED: 540023407 (4) Gross hematuria ICD Codes: R31.0 - Gross hematuria SNOMED: 799949925 (5) Falls frequently ICD Codes: R29.6 - Repeated falls SNOMED: 226198549 (6) Dehydration ICD Codes: E86.0 - Dehydration SNOMED: 33629634 (7) UTI (urinary tract infection) ICD Codes: N39.0 - Urinary tract infection, site not specified SNOMED: 10893999 (8) Anemia ICD Codes: D64.9 - Anemia, unspecified SNOMED: 232162010 Status: stable, progressing, not improved Assessment/Plan: off restraints. cardiac rx check room air o2 sat pt/ot high risk for falls. hold anticoag for now dc planning to snf once bed found at accepting snf Subjective ROS Limited/Unobtainable: No Constitutional: Reports: malaise, weakness HEENT: Reports: no symptoms Cardiovascular: Reports: no symptoms Respiratory: Reports: no symptoms Gastrointestinal/Abdominal: Reports: no symptoms Genitourinary: Reports: no symptoms Neurologic/Psychiatric: Reports: anxiety, emotional problems Endocrine: Reports: no symptoms Hematologic/Lymphatic: Reports: no symptoms Allergies: Coded Allergies: No Known Allergies (Unverified , 06/05/19) All Systems: reviewed and negative except above Subjective There have been no significant overnight changes. Patient remains confused and is mumbling incomprehensibly. lying sideways in the bed. He is been cooperative with care and noncombative. Case management has had a difficult time finding placement. Objective Last 24 Hour Vital Signs Date Time Temp Pulse Resp B/P (MAP) Pulse Ox O2 Delivery O2 Flow Rate FiO2 08/25/19 09:01 64 155/57 08/25/19 08:33 97.2 64 18 155/57 (89) 99 08/25/19 05:53 171/60 08/25/19 05:53 171/60 08/25/19 04:00 96.7 77 20 171/60 (97) 95 08/25/19 00:00 97.9 83 18 98/55 (69) 98 08/24/19 21:43 138/72 08/24/19 21:00 Room Air 08/24/19 20:00 98.2 82 16 118/57 (77) 97 08/24/19 18:01 133/62 08/24/19 18:01 63 133/62 08/24/19 16:11 97.2 65 20 110/61 (77) 97 08/24/19 14:00 101/56 08/24/19 12:00 100/63 08/24/19 11:52 97.8 70 20 104/62 (76) 96 Intake and Output 08/24/19 08/25/19 19:00 07:00 Intake Total 420 ml 474 ml Output Total 450 ml 100 ml Balance -30 ml 374 ml Intake Oral 420 ml 474 ml Output Urine Total 450 ml 100 ml Height (Feet): 5 Height (Inches): 6.00 Weight (Pounds): 105 Objective General Appearance: WD/WN, alert, confused Neck: supple Cardiovascular: regular rhythm Respiratory/Chest: rhonchi - bilaterally Abdomen: normal bowel sounds, non tender, soft, no organomegaly, no mass Edema: no edema noted Arm (L), no edema noted Arm (R), no edema noted Leg (L), no edema noted Leg (R), no edema noted Pedal (L), no edema noted Pedal (R), no edema noted Generalized Neurologic: tie up worker II-XII grossly normal, alert, responsive Iggy Echavarria MD Aug 25, 2019 10:22
--- NOTE | 2019-08-25 10:31 | Pulmonology Progress Note ---
Assessment/Plan Assessment/Plan IMPRESSION: 1. Pleural effusions, small bilateral. 2. Atelectasis. 3. Pulmonary edema, questionable. 4. Hypertension. 5. Hyperlipidemia. DISCUSSION: The patient is saturating well on room air or low flow O2. I will follow as cathodic protection technician. No new recommendations Kimani Hahn M.D. Subjective Interval Events: None new Constitutional: Reports: no symptoms HEENT: Repors: no symptoms Respiratory: Reports: no symptoms Cardiovascular: Reports: no symptoms Allergies: Coded Allergies: No Known Allergies (Unverified , 06/05/19) Objective Last 24 Hour Vital Signs Date Time Temp Pulse Resp B/P (MAP) Pulse Ox O2 Delivery O2 Flow Rate FiO2 08/25/19 09:01 64 155/57 08/25/19 08:33 97.2 64 18 155/57 (89) 99 08/25/19 05:53 171/60 08/25/19 05:53 171/60 08/25/19 04:00 96.7 77 20 171/60 (97) 95 08/25/19 00:00 97.9 83 18 98/55 (69) 98 08/24/19 21:43 138/72 08/24/19 21:00 Room Air 08/24/19 20:00 98.2 82 16 118/57 (77) 97 08/24/19 18:01 133/62 08/24/19 18:01 63 133/62 08/24/19 16:11 97.2 65 20 110/61 (77) 97 08/24/19 14:00 101/56 08/24/19 12:00 100/63 08/24/19 11:52 97.8 70 20 104/62 (76) 96 Intake and Output 08/24/19 08/25/19 19:00 07:00 Intake Total 420 ml 474 ml Output Total 450 ml 100 ml Balance -30 ml 374 ml Intake Oral 420 ml 474 ml Output Urine Total 450 ml 100 ml General Appearance: no acute distress HEENT: normocephalic Respiratory/Chest: chest wall non-tender, lungs clear Cardiovascular: normal peripheral pulses Abdomen: normal bowel sounds Current Medications Medications (Trade) Dose Ordered Sig/Kristine Route PRN Reason Start Time Stop Time Status Last Admin Dose Admin Acetaminophen (Tylenol) 500 mg Q6H PRN ORAL Mild Pain/Temp > 100.5 08/16/19 03:00 09/05/19 08:55 08/18/19 22:28 Docusate Sodium (Colace) 250 mg DAILY ORAL 08/16/19 09:00 09/05/19 08:59 08/25/19 09:01 Escitalopram Oxalate (Lexapro) 10 mg DAILY ORAL 08/18/19 09:00 09/17/19 08:59 08/25/19 09:01 Finasteride (Proscar) 5 mg DAILY ORAL 08/16/19 09:00 11/05/19 15:44 08/25/19 09:01 Hydralazine HCl (Apresoline) 75 mg EVERY 8 HOURS ORAL 08/16/19 06:00 11/13/19 05:59 08/25/19 05:53 Lorazepam (Ativan 2mg/ml 1ml) 0.5 mg TID IM 08/24/19 09:00 08/31/19 08:59 08/25/19 09:02 Magnesium Hydroxide (Mom) 30 ml TIDPRN PRN ORAL Constipation 08/19/19 05:45 09/18/19 05:44 Nifedipine (Procardia XL) 30 mg BID ORAL 08/16/19 09:00 09/05/19 17:59 08/25/19 09:01 Nitroglycerin (Nitro-Bid) 1 inch Q6HR@0600,1200,1800 TOPIC 08/16/19 06:00 09/11/19 06:59 08/25/19 05:53 Pantoprazole (Protonix) 40 mg DAILY IVP 08/19/19 09:00 09/05/19 08:59 08/21/19 10:20 Potassium Chloride (K-Dur) 20 meq TWICE A DAY ORAL 08/23/19 13:02 11/21/19 13:01 08/25/19 09:01 Risperidone (RisperDAL) 2 mg BEDTIME ORAL 08/16/19 21:00 09/29/19 20:59 08/24/19 21:43 Sennosides (Senokot) 8.6 mg BEDTIME ORAL 08/16/19 21:00 09/05/19 20:59 08/24/19 21:43 Tamsulosin HCl (Flomax) 0.4 mg BID ORAL 08/18/19 18:00 09/05/19 20:59 08/25/19 09:02 Kimani Hahn MD Aug 25, 2019 10:31
--- NOTE | 2019-08-25 11:10 | NUR ---
*-*DISCHARGE PLANNING*-* PATIENT HAS BEEN REFERRED TO: [facility] P:[phone] ~~s/w AYESHA, STATED NO BED AVAILABLE [facility] P: [phone] ~~S/W KINGSLEY, STATED NO BEDS AT THIS TIME [facility] P: [phone] S/W NATIVIDAD, IN A MEETING AND TO CALL BACK AROUND 11:50AM [facility] P: [phone] S/W ANUP, NOT ACCEPTING BEDS DUE TO COVID 19 AT THEIR FACILITY [facility] P: [phone] S/W MARCIAL, NO BEDS AVAILABLE [facility] P: [phone] PLACED MULTIPLE CALLS AND LEFT VOICEMAIL [facility] P: [phone] S/W HIRO, CANNOT ACCOMMODATE PATIENT DUE TO THE BEHAVIOR [facility] P: [phone] S/W JULIA NO BED [facility] P: [phone] PLACED 5 CALLS, NO ANSWER [facility] P: [phone] S/W NICA, NO BED AT THE MOMENT ~~~~~~~~~~~~~~INCOME TAX CONSULTANT WILL CONTINUE TO REFER PATIENT TO LIST OF 10 SNF's~~~~~~~~~~~~
[2019-08-25 12:10] VITALS: BP 97/57
--- NOTE | 2019-08-25 13:54 | Nephrology Progress Note ---
Assessment/Plan Problem List: (1) Renal failure (ARF), acute on chronic Assessment: Serum creatinine stabilizing (2) Falls frequently (3) UTI (urinary tract infection) Assessment: and hematuria (4) Anemia (5) Dehydration (6) Encephalopathy due to metabolic factor or toxin Assessment Frequent falls Acute renal failure with underlying dehydration Anemia, underlying etiology unclear UTI (urinary tract infection) Toxic metabolic encephalopathy Plan P.o. intake variable Oral potassium supplement today Check labs tomorrow Discharge planning in process previously: Increase Flomax to twice daily Correct electrolytes as needed Transfusion as needed 2D echocardiogram ejection fraction 60% Kidney ultrasound pending results Monitor renal parameters Avoid nephrotoxics Antibiotics for UTI Continue per consultants Subjective ROS Limited/Unobtainable: No Constitutional: Reports: malaise Objective Objective Last 24 Hour Vital Signs Date Time Temp Pulse Resp B/P (MAP) Pulse Ox O2 Delivery O2 Flow Rate FiO2 08/25/19 12:10 97.0 73 20 97/57 (70) 97 08/25/19 12:00 97/57 08/25/19 09:01 64 155/57 08/25/19 09:00 Room Air 08/25/19 08:33 97.2 64 18 155/57 (89) 99 08/25/19 05:53 171/60 08/25/19 05:53 171/60 08/25/19 04:00 96.7 77 20 171/60 (97) 95 08/25/19 00:00 97.9 83 18 98/55 (69) 98 08/24/19 21:43 138/72 08/24/19 21:00 Room Air 08/24/19 20:00 98.2 82 16 118/57 (77) 97 08/24/19 18:01 133/62 08/24/19 18:01 63 133/62 08/24/19 16:11 97.2 65 20 110/61 (77) 97 08/24/19 14:00 101/56 Intake and Output 08/24/19 08/25/19 19:00 07:00 Intake Total 420 ml 474 ml Output Total 450 ml 100 ml Balance -30 ml 374 ml Intake Oral 420 ml 474 ml Output Urine Total 450 ml 100 ml No labs drawn today Height (Feet): 5 Height (Inches): 6.00 Weight (Pounds): 105 General Appearance: no apparent distress Cardiovascular: normal rate Respiratory/Chest: lungs clear Abdomen: soft Objective No change Juan Jade MD Aug 25, 2019 13:54
--- NOTE | 2019-08-25 14:29 | NUR ---
NURSE NOTES:Hold scheduled Hydralazine 50mg PO @ 0200 due to BP 96/61.
--- NOTE | 2019-08-25 14:30 | NUR ---
*-*DISCHARGE PLANNING*-* PATIENT HAS BEEN REFERRED TO: [facility] P:[phone] [facility] P: [phone] [facility] P: [phone] [facility] P: [phone] [facility] P:[phone] [facility] P: [phone] [facility] P: [phone] [facility] P: [phone] [facility] P: [phone] [facility] P: [phone] Addendum: 08/25/19 at 1656 by ELIDA BERG CM *-*DISCHARGE PLANNING*-* [facility] P: S/W SABINE, NOT ACCEPTING PATIENTS AT THE MOMENT [facility] P: [phone] S/W RANDA UNABLE TO ACCEPT PATIENT [facility] P: [phone] S/W KERWIN, NO BEDS AVAILABLE [facility] P: [phone] S/W RUTH, NO BEDS AVAILABLE AT THIS TIME [facility] P:[phone] S/W KRISTOFER FROM ADMINISTRATION, WHO SAID TO CALL BACK IN 10 MINS, PLACED ANOTHER CALL 10 MINS LATER AND KRISTOFER IS NO LONGER IN THE BUILDING. [facility] P: [phone] S/W KRISTOFER, NOT TAKING ANY PATIENT AT THE MOMENT [facility] P: [phone] S/W HORACIO, NO BEDS AVAILABLE AT THIS TIME [facility] P: [phone] NO RESPONSE [facility] P: [phone] PLACED MULTIPLE CALLS, NO ANSWER [facility] P: [phone] S/W RONY, NOT ACCEPTING PATIENTS AT THIS TIME
--- NOTE | 2019-08-25 14:41 | NUR ---
*-*INSURANCE*-* UPDATED CLINICALS AND REVIEWS HAVE BEEN FAXED TO: DEE SALGUERO F: [phone] REF# [id number]
--- NOTE | 2019-08-25 14:45 | NUR ---
ST NOTES: SWALLOW STATUS: PATIENT SEEN FOR DYSPHAGIA, NOT ALERT FOR TRIAL TX NOR PO TRIALS AND UPGRADES. PER RNJOANA, INTAKE IS VARIABLE BUT SLOW AND WOULD BENEFIT FROM STAYING ON THE LIQUIFIED PUREED LIKE NECTAR THICK SOUP CONSISTENCY. THE PATIENT IS RECEPTIVE AND MORE SUCCESSFUL WITH TAKING HIGH CALORIE SUPPLEMENTS (ENSURE ENLIVE). RN EDUCATED/TRAINED IN POSTED ASPIRATION PRECAUTIONS. GOALS FOR INTAKE ARE NOT CONSISTENTLY MET FOR MEALS 25 MOSTLY AND SOMETIMES 50%; HOWEVER, STAFF IS TRYING TO ENCOURAGE INTAKE OF HIS HIGH CALORIE DRINKS. PLAN: CONTINUE WITH PLAN OF CARE IN SWALLOW EVAL AND MOD BARIUM SWALLOW STUDY REPORTS. PER RN, THE PATIENT MAY D/C SOON THERE IS A BED AT A PARTICULAR SNF
--- NOTE | 2019-08-25 15:37 | NUR ---
CASE MANAGEMENT:REVIEW 08/25/19 SI: METABOLIC VS TOXIC ENCEPHALOPATHY PULMONARY EDEMA . BILATERAL PLEURAL EFFUSION. AC/CHR RENAL FAILURE. UTI. ANEMIA. GROSS HEMATURIA 97.0 73 20 97/57 97% ON RA IS:PROSCAR PO QD K-DUR PO BID PROCARDIA XL PO BID FLOMAX PO BID NITRO-BID SENOKOT PO QHS HYDRALAZINE PO Q8HR IV PROTONIX QS RISPERDAL PO QHS CHEST [id number] demonstrated pleural effusions have markedly improved \: 3MED SURG STATUS DCP: PATIENT IS REQUIRING SKILLED NEED AT THIS TIME; NO BED AVAILABLE TO ACCOMMODATE DUE TO COVID-19 CRISIS; FACILITY REQUIRES THAT RETURNING PATIENT BE ISOLATED FOR 14 DAY PRIOR WHEN RETURN, BUT AGAIN AT THIS TIME NO AVAILABLE BEDS AT [facility]. PLAN: DC SCRAP SORTER REFERRING PATIENT TO CONTRACTED FACILITIES
[2019-08-25 16:00] VITALS: BP 128/52
--- NOTE | 2019-08-25 19:20 | NUR ---
NURSE NOTES: Received report from Laureen GOULD. Rounding is done with outgoing nurse. Patient is in bed, aseep. No s/s of pain or any discomfort noted at this time. Fall precaution in place. No IV site noted and aware. Bed is on alarm, lacked, and lowest position. Call light within reach. Will continue to monitor.
--- NOTE | 2019-08-25 19:45 | NUR ---
HAND-OFF: Report given to LUIS FERNANDO Rosas.Endorsed about high fall status to oncoming shift. fall precaution is in place.
[2019-08-25 20:00] VITALS: BP 129/41
[2019-08-25] MEDS: Sennosides 8.6mg tab ORAL SCH (21:20)
--- NOTE | 2019-08-25 22:59 | Progress Note ---
DATE: 08/25/2019 SUBJECTIVE: Patient was responding to internal stimuli, more agitated today. Off restraints. Patient is awaiting placement. MENTAL STATUS EXAMINATION: Patient is alert, oriented to self. Mood is anxious. Affect is flat. Thought process is concrete. Thought content, no suicidal or homicidal ideation. Cognition is impaired. Insight and judgment is impaired. ASSESSMENT: Psychotic disorder. PLAN: 1. Continue the Ativan. 2. Risperidone 1 mg in the morning and 2 mg at bedtime. 3. Discussed with the nurse. Loco Luu M.D. DR: TONYA JOB#: [id number] CC:
[2019-08-26] VITALS: BP 113/54
--- NOTE | 2019-08-26 02:30 | Progress Note ---
DATE: 08/25/2019 SUBJECTIVE: Confused. Still requiring close care to avoid fall risk. PHYSICAL EXAMINATION: VITAL SIGNS: Blood pressure 155/57, heart rate 64, respiratory rate 18. He is afebrile. LUNGS: Clear. CARDIAC: Regular. Normal S1, S2. 1/6 systolic murmur. ABDOMEN: Soft. There is no edema. LABORATORY AND DIAGNOSTIC DATA: Chest x-ray today revealed near resolution of pleural effusions and marked improvement in parenchymal disease. IMPRESSION: 1. Junctional rhythm. 2. Conduction system disease. 3. Valvular heart disease. 4. Pulmonary hypertension. PLAN: No need for diuresis. The patient has improved with regard to cardiovascular parameters and renal functions. Off diuretics. We will continue to fine-tune cardiovascular regimen, pending placement. Gamaliel Salas M.D. DR: Meagan JOB#: [id number] CC:
[2019-08-26 04:00] VITALS: BP 148/60
[2019-08-26] MEDS: Nitroglycerin 2% oint pkt TOPIC SCH ×3 (05:05→17:15)
[2019-08-26] MEDS: HydrALAZINE 50mg tab ORAL SCH ×3 (05:06→22:36)
[2019-08-26 06:50] LABS: BASOPHILS % (AUTO) 0.9 % (0.0-2.0); EOSINOPHILS % (AUTO) 4.4 % (0.0-3.0); HEMATOCRIT 28.7 % (42.0-52.0); HEMOGLOBIN 9.4 G/DL (14.2-18.0); LYMPHOCYTES % (AUTO) 13.9 % (20.0-45.0); MEAN CORPUSCULAR VOLUME 89 FL (80-99); MONOCYTES % (AUTO) 11.5 % (1.0-10.0); NEUTROPHILS % (AUTO) 69.3 % (45.0-75.0); PLATELET COUNT 235 K/UL (150-450); RED CELL DISTRIBUTION WIDTH 14.2 % (11.6-14.8); WHITE BLOOD COUNT 3.7 K/UL (4.8-10.8)
--- NOTE | 2019-08-26 07:29 | NUR ---
HAND-OFF: Report given to Muriel GOULD. Patient in stable condition.
--- NOTE | 2019-08-26 07:30 | NUR ---
NURSE NOTES: Patient is in bed awake and restless. Unable to follow commands. Patient is repeating words and not making sense. Stable. No distress noted, breathing is even and unlabored. All safety measures provided. Patient is in bed in locked and lowest position with call light within reach and bed alarm on with side rails up. Will continue to monitor.
[2019-08-26 07:40] LABS: ALANINE AMINOTRANSFERASE 26 U/L (12-78); ALBUMIN 2.7 G/DL (3.4-5.0); ALBUMIN/GLOBULIN RATIO 0.9 (1.0-2.7); ALKALINE PHOSPHATASE 128 U/L (46-116); ANION GAP 8 mmol/L (5-15); ASPARTATE AMINO TRANSFERASE 28 U/L (15-37); BILIRUBIN,TOTAL 0.3 MG/DL (0.2-1.0); BLOOD UREA NITROGEN 34 mg/dL (7-18); CALCIUM 10.1 MG/DL (8.5-10.1); CARBON DIOXIDE 26 MMOL/L (21-32); CHLORIDE 114 MMOL/L (98-107); PHOSPHORUS 2.4 MG/DL (2.5-4.9); POTASSIUM 4.1 MMOL/L (3.5-5.1); SODIUM 148 MMOL/L (136-145)
[2019-08-26 08:00] VITALS: BP 120/53
--- NOTE | 2019-08-26 08:00 | NUR ---
NURSE NOTES: Patient was fed breakfast, 50% breakfast eaten, no difficulty swallowing noted.
[2019-08-26] MEDS: Docusate 250mg cap ORAL SCH (08:20)
[2019-08-26] MEDS: LORazepam Inj 2mg/ml 1ml IM SCH ×3 (08:20→17:15)
[2019-08-26] MEDS: Tamsulosin 0.4mg cap ORAL SCH ×2 (08:21→17:15)
--- NOTE | 2019-08-26 08:52 | Urology Progress Note ---
Assessment/Plan Status: stable, progressing, not improved Assessment/Plan: 1. Gross hematuria, presumably secondary to Doshi trauma. 2. BPH. 3. Urinary retention. 4. Neurogenic bladder. 5. Pyuria. 6. Proteinuria. 7. Renal insufficiency, which appears to be acute on chronic. 8. Rule out urethral stricture. monitor clinically doshi removed cont flomax and proscar s/p abx off anticoagulation, resume? restraints PRN cysto at some point monitor PVR and reinsert doshi PRN renal imaging? Subjective Allergies: Coded Allergies: No Known Allergies (Unverified , 06/05/19) Subjective all noted, confused, doshi out, incontinent, condom cath Objective Last 24 Hour Vital Signs Date Time Temp Pulse Resp B/P (MAP) Pulse Ox O2 Delivery O2 Flow Rate FiO2 08/26/19 08:20 66 120/53 08/26/19 08:05 Room Air 08/26/19 08:00 97.6 66 120/53 (75) 97 08/26/19 05:06 134/61 08/26/19 05:05 134/61 08/26/19 04:00 97.4 79 19 148/60 (89) 96 08/26/19 00:00 96.8 64 18 113/54 (73) 98 08/25/19 21:21 111/53 08/25/19 21:00 Room Air 08/25/19 20:00 97.4 64 18 129/41 (70) 97 08/25/19 17:31 131/56 08/25/19 17:30 69 131/56 08/25/19 16:00 97.4 72 18 128/52 (77) 97 08/25/19 14:00 96/61 08/25/19 12:10 97.0 73 20 97/57 (70) 97 08/25/19 12:00 97/57 08/25/19 09:01 64 155/57 08/25/19 09:00 Room Air Intake and Output 08/25/19 08/26/19 19:00 07:00 Intake Total 540 ml 200 ml Output Total 4 ml 1 ml Balance 536 ml 199 ml Intake Oral 540 ml 200 ml Output Urine Total 4 ml 1 ml Microbiology Date/Time Source Procedure Growth Status 08/06/19 04:45 Nasal Nares - Final Complete 08/06/19 04:45 Nasal Nares - Final Complete 08/06/19 04:45 Rectum VRE Culture - Final NO VANCOMYCIN RESISTANT ENTEROCOCCUS ... Complete Current Medications Medications (Trade) Dose Ordered Sig/Kristine Route PRN Reason Start Time Stop Time Status Last Admin Dose Admin Acetaminophen (Tylenol) 500 mg Q6H PRN ORAL Mild Pain/Temp > 100.5 08/16/19 03:00 09/05/19 08:55 08/18/19 22:28 Docusate Sodium (Colace) 250 mg DAILY ORAL 08/16/19 09:00 09/05/19 08:59 08/26/19 08:20 Escitalopram Oxalate (Lexapro) 10 mg DAILY ORAL 08/18/19 09:00 09/17/19 08:59 08/26/19 08:20 Finasteride (Proscar) 5 mg DAILY ORAL 08/16/19 09:00 11/05/19 15:44 08/26/19 08:20 Hydralazine HCl (Apresoline) 50 mg EVERY 8 HOURS ORAL 08/26/19 06:00 11/24/19 05:59 08/26/19 05:06 Lorazepam (Ativan 2mg/ml 1ml) 0.5 mg TID IM 08/24/19 09:00 08/31/19 08:59 08/26/19 08:20 Magnesium Hydroxide (Mom) 30 ml TIDPRN PRN ORAL Constipation 08/19/19 05:45 09/18/19 05:44 Nifedipine (Procardia XL) 30 mg BID ORAL 08/16/19 09:00 09/05/19 17:59 08/26/19 08:20 Nitroglycerin (Nitro-Bid) 1 inch Q6HR@0600,1200,1800 TOPIC 08/16/19 06:00 09/11/19 06:59 08/26/19 05:05 Pantoprazole (Protonix) 40 mg DAILY ORAL 08/26/19 09:00 09/25/19 08:59 08/26/19 08:20 Potassium Chloride (K-Dur) 20 meq TWICE A DAY ORAL 08/23/19 13:02 11/21/19 13:01 08/26/19 08:21 Risperidone (RisperDAL) 1 mg DAILY ORAL 08/25/19 16:00 10/09/19 15:59 08/26/19 08:20 Risperidone (RisperDAL) 2 mg BEDTIME ORAL 08/16/19 21:00 09/29/19 20:59 08/25/19 21:20 Sennosides (Senokot) 8.6 mg BEDTIME ORAL 08/16/19 21:00 09/05/19 20:59 08/25/19 21:20 Tamsulosin HCl (Flomax) 0.4 mg BID ORAL 08/18/19 18:00 09/05/19 20:59 08/26/19 08:21 Laboratory Tests 08/26/19 04:50: White Blood Count 3.7L, Red Blood Count 3.20L, Hemoglobin 9.4L, Hematocrit 28.7L , Mean Corpuscular Volume 89, Mean Corpuscular Hemoglobin 29.3, Mean Corpuscular Hemoglobin Concent 32.7, Red Cell Distribution Width 14.2, Platelet Count 235, Mean Platelet Volume 6.5, Neutrophils (%) (Auto) 69.3, Lymphocytes (% ) (Auto) 13.9L, Monocytes (%) (Auto) 11.5H, Eosinophils (%) (Auto) 4.4H, Basophils (%) (Auto) 0.9, Sodium Level 148H, Potassium Level 4.1, Chloride Level 114H, Carbon Dioxide Level 26, Anion Gap 8, Blood Urea Nitrogen 34H, Creatinine 2.0H, Estimat Glomerular Filtration Rate 32.0, Glucose Level 116H, Calcium Level 10.1, Phosphorus Level 2.4L, Magnesium Level 2.2, Total Bilirubin 0.3, Aspartate Amino Transf (AST/SGOT) 28, Alanine Aminotransferase (ALT/SGPT) 26, Alkaline Phosphatase 128H, Pro-B-Type Natriuretic Peptide 4479H, Total Protein 5.8L, Albumin 2.7L, Globulin 3.1, Albumin/Globulin Ratio 0.9L Height (Feet): 5 Height (Inches): 6.00 Weight (Pounds): 105 Objective exam stable abdomen soft urine grossly yellow Bamshad,Miki Perry MD Aug 26, 2019 08:52
--- NOTE | 2019-08-26 09:27 | NUR ---
CASE MANAGEMENT:REVIEW 08/26/19 SI:FREQUENT FALLS . METABOLIC VS TOXIC ENCEPHALOPATHY . PULMONARY EDEMA . BILATERAL PLEURAL EFFUSION. AC/CHR RENAL FAILURE. UTI. ANEMIA. GROSS HEMATURIA 97.4 79 19 148/60 96% ON RA BNP 4479 WBC 3.7 H/H 9.4/28.7 NA+ 148 CL-114 BUN 34 CREAT 2.0 PHOS 2.4 ALKP 128 IS:PROSCAR PO QD K-DUR PO BID PROCARDIA XL PO BID FLOMAX PO BID NITRO-BID SENOKOT PO QHS HYDRALAZINE PO Q8HR IV PROTONIX QD RISPERDAL PO QHS NITRO-BID \: 3MED SURG STATUS DCP: PATIENT IS REQUIRING SKILLED NEED AT THIS TIME; NO BED AVAILABLE TO ACCOMMODATE DUE TO COVID-19 CRISIS; FACILITY REQUIRES THAT RETURNING PATIENT BE ISOLATED FOR 14 DAY PRIOR WHEN RETURN, BUT AGAIN AT THIS TIME NO AVAILABLE BEDS AT [facility]. PLAN: DC ROOM SERVICE RUNNER REFERRING PATIENT TO CONTRACTED FACILITIES WBC DECREASING CONFUSED INCONTINENT- CONDOM CATH
--- NOTE | 2019-08-26 09:39 | NUR ---
CASE MANAGEMENT NOTE [facility] [phone] PLACEMENT NEEDED PATIENT REQUIRING SKILLED NEED UNABLE TO PLACE DUE TO PANDEMIC
--- NOTE | 2019-08-26 10:36 | NUR ---
*-*DISCHARGE PLANNING*-* PATIENT HAS BEEN REFERRED TO: [facility] P: [phone] [facility] P: [phone] [facility] P: [phone] [facility] [place] P: [phone] [facility]: [phone] [facility] P: [phone] [facility] P: [phone] [facility] P: [phone] [facility] P: [phone] [facility] P: [phone] [facility] P: [phone] ~~~~CLINICALS FAXED~~~~~~~~~~~~
--- NOTE | 2019-08-26 10:42 | General Progress Note ---
Assessment/Plan Problem List: (1) CHF (congestive heart failure) ICD Codes: I50.9 - Heart failure, unspecified SNOMED: 12132656 (2) Renal failure (ARF), acute on chronic ICD Codes: N17.9 - Acute kidney failure, unspecified; N18.9 - Chronic kidney disease, unspecified SNOMED: 788746560 (3) Encephalopathy due to metabolic factor or toxin SNOMED: 844479133 (4) Gross hematuria ICD Codes: R31.0 - Gross hematuria SNOMED: 913056914 (5) Falls frequently ICD Codes: R29.6 - Repeated falls SNOMED: 188534337 (6) Dehydration ICD Codes: E86.0 - Dehydration SNOMED: 93879182 (7) UTI (urinary tract infection) ICD Codes: N39.0 - Urinary tract infection, site not specified SNOMED: 62327450 (8) Anemia ICD Codes: D64.9 - Anemia, unspecified SNOMED: 859947234 Status: stable, progressing, not improved Assessment/Plan: off restraints. cardiac rx check room air o2 sat pt/ot high risk for falls. hold anticoag for now monitor Na. encourage fluids dc planning to snf once bed found at accepting snf Subjective ROS Limited/Unobtainable: No Constitutional: Reports: malaise, weakness HEENT: Reports: no symptoms Cardiovascular: Reports: no symptoms Respiratory: Reports: no symptoms Gastrointestinal/Abdominal: Reports: no symptoms Genitourinary: Reports: no symptoms Neurologic/Psychiatric: Reports: anxiety, emotional problems, pre-existing deficit Endocrine: Reports: no symptoms Hematologic/Lymphatic: Reports: no symptoms Allergies: Coded Allergies: No Known Allergies (Unverified , 06/05/19) All Systems: reviewed and negative except above Subjective There have been no significant overnight changes. Patient remains confused and is mumbling incomprehensibly. lying sideways in the bed. He is been cooperative with care and noncombative. pulled out iv. Na up. Case management has had a difficult time finding placement. Objective Last 24 Hour Vital Signs Date Time Temp Pulse Resp B/P (MAP) Pulse Ox O2 Delivery O2 Flow Rate FiO2 08/26/19 08:20 66 120/53 08/26/19 08:05 Room Air 08/26/19 08:00 97.6 66 120/53 (75) 97 08/26/19 05:06 134/61 08/26/19 05:05 134/61 08/26/19 04:00 97.4 79 19 148/60 (89) 96 08/26/19 00:00 96.8 64 18 113/54 (73) 98 08/25/19 21:21 111/53 08/25/19 21:00 Room Air 08/25/19 20:00 97.4 64 18 129/41 (70) 97 08/25/19 17:31 131/56 08/25/19 17:30 69 131/56 08/25/19 16:00 97.4 72 18 128/52 (77) 97 08/25/19 14:00 96/61 08/25/19 12:10 97.0 73 20 97/57 (70) 97 08/25/19 12:00 97/57 Intake and Output 08/25/19 08/26/19 19:00 07:00 Intake Total 540 ml 200 ml Output Total 4 ml 1 ml Balance 536 ml 199 ml Intake Oral 540 ml 200 ml Output Urine Total 4 ml 1 ml Laboratory Tests 08/26/19 04:50: White Blood Count 3.7L, Red Blood Count 3.20L, Hemoglobin 9.4L, Hematocrit 28.7L , Mean Corpuscular Volume 89, Mean Corpuscular Hemoglobin 29.3, Mean Corpuscular Hemoglobin Concent 32.7, Red Cell Distribution Width 14.2, Platelet Count 235, Mean Platelet Volume 6.5, Neutrophils (%) (Auto) 69.3, Lymphocytes (% ) (Auto) 13.9L, Monocytes (%) (Auto) 11.5H, Eosinophils (%) (Auto) 4.4H, Basophils (%) (Auto) 0.9, Sodium Level 148H, Potassium Level 4.1, Chloride Level 114H, Carbon Dioxide Level 26, Anion Gap 8, Blood Urea Nitrogen 34H, Creatinine 2.0H, Estimat Glomerular Filtration Rate 32.0, Glucose Level 116H, Calcium Level 10.1, Phosphorus Level 2.4L, Magnesium Level 2.2, Total Bilirubin 0.3, Aspartate Amino Transf (AST/SGOT) 28, Alanine Aminotransferase (ALT/SGPT) 26, Alkaline Phosphatase 128H, Pro-B-Type Natriuretic Peptide 4479H, Total Protein 5.8L, Albumin 2.7L, Globulin 3.1, Albumin/Globulin Ratio 0.9L Height (Feet): 5 Height (Inches): 6.00 Weight (Pounds): 105 Objective General Appearance: WD/WN, alert, confused Neck: supple Cardiovascular: regular rhythm Respiratory/Chest: rhonchi - bilaterally Abdomen: normal bowel sounds, non tender, soft, no organomegaly, no mass Edema: no edema noted Arm (L), no edema noted Arm (R), no edema noted Leg (L), no edema noted Leg (R), no edema noted Pedal (L), no edema noted Pedal (R), no edema noted Generalized 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
--- NOTE | 2019-08-26 11:02 | Pulmonology Progress Note ---
Assessment/Plan Assessment/Plan IMPRESSION: 1. Pleural effusions, small bilateral. 2. Atelectasis. 3. Pulmonary edema, questionable. 4. Hypertension. 5. Hyperlipidemia. DISCUSSION: The patient is saturating well on room air or low flow O2. I will follow as air traffic controller center. No new recommendations Kimani Hahn M.D. Subjective Interval Events: None new Constitutional: Reports: no symptoms HEENT: Repors: no symptoms Respiratory: Reports: no symptoms Cardiovascular: Reports: no symptoms Gastrointestinal/Abdominal: Reports: no symptoms Allergies: Coded Allergies: No Known Allergies (Unverified , 06/05/19) Objective Last 24 Hour Vital Signs Date Time Temp Pulse Resp B/P (MAP) Pulse Ox O2 Delivery O2 Flow Rate FiO2 08/26/19 08:20 66 120/53 08/26/19 08:05 Room Air 08/26/19 08:00 97.6 66 120/53 (75) 97 08/26/19 05:06 134/61 08/26/19 05:05 134/61 08/26/19 04:00 97.4 79 19 148/60 (89) 96 08/26/19 00:00 96.8 64 18 113/54 (73) 98 08/25/19 21:21 111/53 08/25/19 21:00 Room Air 08/25/19 20:00 97.4 64 18 129/41 (70) 97 08/25/19 17:31 131/56 08/25/19 17:30 69 131/56 08/25/19 16:00 97.4 72 18 128/52 (77) 97 08/25/19 14:00 96/61 08/25/19 12:10 97.0 73 20 97/57 (70) 97 08/25/19 12:00 97/57 Intake and Output 08/25/19 08/26/19 19:00 07:00 Intake Total 540 ml 200 ml Output Total 4 ml 1 ml Balance 536 ml 199 ml Intake Oral 540 ml 200 ml Output Urine Total 4 ml 1 ml General Appearance: no acute distress HEENT: normocephalic Respiratory/Chest: chest wall non-tender Cardiovascular: normal peripheral pulses Abdomen: normal bowel sounds Laboratory Tests 08/26/19 04:50: White Blood Count 3.7L, Red Blood Count 3.20L, Hemoglobin 9.4L, Hematocrit 28.7L , Mean Corpuscular Volume 89, Mean Corpuscular Hemoglobin 29.3, Mean Corpuscular Hemoglobin Concent 32.7, Red Cell Distribution Width 14.2, Platelet Count 235, Mean Platelet Volume 6.5, Neutrophils (%) (Auto) 69.3, Lymphocytes (% ) (Auto) 13.9L, Monocytes (%) (Auto) 11.5H, Eosinophils (%) (Auto) 4.4H, Basophils (%) (Auto) 0.9, Sodium Level 148H, Potassium Level 4.1, Chloride Level 114H, Carbon Dioxide Level 26, Anion Gap 8, Blood Urea Nitrogen 34H, Creatinine 2.0H, Estimat Glomerular Filtration Rate 32.0, Glucose Level 116H, Calcium Level 10.1, Phosphorus Level 2.4L, Magnesium Level 2.2, Total Bilirubin 0.3, Aspartate Amino Transf (AST/SGOT) 28, Alanine Aminotransferase (ALT/SGPT) 26, Alkaline Phosphatase 128H, Pro-B-Type Natriuretic Peptide 4479H, Total Protein 5.8L, Albumin 2.7L, Globulin 3.1, Albumin/Globulin Ratio 0.9L Current Medications Medications (Trade) Dose Ordered Sig/Kristine Route PRN Reason Start Time Stop Time Status Last Admin Dose Admin Acetaminophen (Tylenol) 500 mg Q6H PRN ORAL Mild Pain/Temp > 100.5 08/16/19 03:00 09/05/19 08:55 08/18/19 22:28 Docusate Sodium (Colace) 250 mg DAILY ORAL 08/16/19 09:00 09/05/19 08:59 08/26/19 08:20 Escitalopram Oxalate (Lexapro) 10 mg DAILY ORAL 08/18/19 09:00 09/17/19 08:59 08/26/19 08:20 Finasteride (Proscar) 5 mg DAILY ORAL 08/16/19 09:00 11/05/19 15:44 08/26/19 08:20 Hydralazine HCl (Apresoline) 50 mg EVERY 8 HOURS ORAL 08/26/19 06:00 11/24/19 05:59 08/26/19 05:06 Lorazepam (Ativan 2mg/ml 1ml) 0.5 mg TID IM 08/24/19 09:00 08/31/19 08:59 08/26/19 08:20 Magnesium Hydroxide (Mom) 30 ml TIDPRN PRN ORAL Constipation 08/19/19 05:45 09/18/19 05:44 Nifedipine (Procardia XL) 30 mg BID ORAL 08/16/19 09:00 09/05/19 17:59 08/26/19 08:20 Nitroglycerin (Nitro-Bid) 1 inch Q6HR@0600,1200,1800 TOPIC 08/16/19 06:00 09/11/19 06:59 08/26/19 05:05 Pantoprazole (Protonix) 40 mg DAILY ORAL 08/26/19 09:00 09/25/19 08:59 08/26/19 08:20 Potassium Chloride (K-Dur) 20 meq TWICE A DAY ORAL 08/23/19 13:02 11/21/19 13:01 08/26/19 08:21 Risperidone (RisperDAL) 1 mg DAILY ORAL 08/25/19 16:00 10/09/19 15:59 08/26/19 08:20 Risperidone (RisperDAL) 2 mg BEDTIME ORAL 08/16/19 21:00 09/29/19 20:59 08/25/19 21:20 Sennosides (Senokot) 8.6 mg BEDTIME ORAL 08/16/19 21:00 09/05/19 20:59 08/25/19 21:20 Tamsulosin HCl (Flomax) 0.4 mg BID ORAL 08/18/19 18:00 09/05/19 20:59 08/26/19 08:21 Kimani Hahn MD Aug 26, 2019 11:02
--- NOTE | 2019-08-26 11:56 | Nephrology Progress Note ---
Assessment/Plan Problem List: (1) Renal failure (ARF), acute on chronic Assessment: Serum creatinine stabilizing (2) Falls frequently (3) UTI (urinary tract infection) Assessment: and hematuria (4) Anemia (5) Dehydration (6) Encephalopathy due to metabolic factor or toxin Assessment Frequent falls Acute renal failure with underlying dehydration Anemia, underlying etiology unclear UTI (urinary tract infection) Toxic metabolic encephalopathy Plan P.o. intake variable Oral potassium supplement today Check labs tomorrow Discharge planning in process previously: Increase Flomax to twice daily Correct electrolytes as needed Transfusion as needed 2D echocardiogram ejection fraction 60% Kidney ultrasound pending results Monitor renal parameters Avoid nephrotoxics Antibiotics for UTI Continue per consultants Subjective ROS Limited/Unobtainable: No Constitutional: Reports: malaise, weakness Objective Objective Last 24 Hour Vital Signs Date Time Temp Pulse Resp B/P (MAP) Pulse Ox O2 Delivery O2 Flow Rate FiO2 08/26/19 08:20 66 120/53 08/26/19 08:05 Room Air 08/26/19 08:00 97.6 66 120/53 (75) 97 08/26/19 05:06 134/61 08/26/19 05:05 134/61 08/26/19 04:00 97.4 79 19 148/60 (89) 96 08/26/19 00:00 96.8 64 18 113/54 (73) 98 08/25/19 21:21 111/53 08/25/19 21:00 Room Air 08/25/19 20:00 97.4 64 18 129/41 (70) 97 08/25/19 17:31 131/56 08/25/19 17:30 69 131/56 08/25/19 16:00 97.4 72 18 128/52 (77) 97 08/25/19 14:00 96/61 08/25/19 12:10 97.0 73 20 97/57 (70) 97 08/25/19 12:00 97/57 Intake and Output 08/25/19 08/26/19 19:00 07:00 Intake Total 540 ml 200 ml Output Total 4 ml 1 ml Balance 536 ml 199 ml Intake Oral 540 ml 200 ml Output Urine Total 4 ml 1 ml Laboratory Tests 08/26/19 04:50: White Blood Count 3.7L, Red Blood Count 3.20L, Hemoglobin 9.4L, Hematocrit 28.7L , Mean Corpuscular Volume 89, Mean Corpuscular Hemoglobin 29.3, Mean Corpuscular Hemoglobin Concent 32.7, Red Cell Distribution Width 14.2, Platelet Count 235, Mean Platelet Volume 6.5, Neutrophils (%) (Auto) 69.3, Lymphocytes (% ) (Auto) 13.9L, Monocytes (%) (Auto) 11.5H, Eosinophils (%) (Auto) 4.4H, Basophils (%) (Auto) 0.9, Sodium Level 148H, Potassium Level 4.1, Chloride Level 114H, Carbon Dioxide Level 26, Anion Gap 8, Blood Urea Nitrogen 34H, Creatinine 2.0H, Estimat Glomerular Filtration Rate 32.0, Glucose Level 116H, Calcium Level 10.1, Phosphorus Level 2.4L, Magnesium Level 2.2, Total Bilirubin 0.3, Aspartate Amino Transf (AST/SGOT) 28, Alanine Aminotransferase (ALT/SGPT) 26, Alkaline Phosphatase 128H, Pro-B-Type Natriuretic Peptide 4479H, Total Protein 5.8L, Albumin 2.7L, Globulin 3.1, Albumin/Globulin Ratio 0.9L Height (Feet): 5 Height (Inches): 6.00 Weight (Pounds): 105 General Appearance: no apparent distress Cardiovascular: normal rate Respiratory/Chest: decreased breath sounds Abdomen: soft Objective No change Juan Jade MD Aug 26, 2019 11:56
[2019-08-26 12:00] VITALS: BP 133/54
--- NOTE | 2019-08-26 12:49 | NUR ---
*-*INSURANCE*-* UPDATED CLINICALS AND REVIEWS HAVE BEEN FAXED TO: DEE SALGUERO F: [phone] REF# [id number]
--- NOTE | 2019-08-26 13:08 | NUR ---
P.T Note: P.T evaluation completed and tx initiated. Please refer to P.T evaluation for full report. Pt is alert, O x 4 , no c/o pain however presented generalized weakness compromising his balance and safety in performing his ADL/ functional mobilities. Pt able to perform bed mobilities w/o physical assist however needed MIN/CGA X 1 to transfer from OOB to chair/recliner. Pt ambulated with very unsteady gait for 100 ft and required the use of FWW, CGA x 1 and constant redirections for safe maneuvering of FWW during transitional movement/directional shifting. Skilled P.T service is warranted to improved strength and and mobility independence towards return to PLOF. Addendum: 08/26/19 at 1318 by CONY JAMESON PT PLEASE DISREGARD ABOVE P.T NOTES: WRONG PATIENT/WRONG ENTRY!
--- NOTE | 2019-08-26 14:39 | NUR ---
DISCHARGE PLANNING: RECEIVED A MESSAGE FROM RAMÍREZ RICHMOND ( AND KAREN) OF PATIENT MR. RICHMOND RECEIVED CM MESSAGE REGARDING PLACEMENT MR RICHMOND EXPLAINED THAT THE FACILITY CONFIRMED THAT PATIENT BED IS STILL SECURE CALL [facility] TO CONFIRM; BUT NO ANSWER Addendum: 08/26/19 at 1536 by MARCUS OBRIEN LVN SECURE BED WILL BE DETERMINED BY FACILITY ON THURSDAY CM WILL CONTACT [facility] THURSDAY
--- NOTE | 2019-08-26 19:19 | NUR ---
HAND-OFF: Report given to Kellee GOULD. patient is stable.
--- NOTE | 2019-08-26 19:20 | NUR ---
NURSE NOTES: Received report from LUIS FERNANDO Llamas. Condition stable, sleeping in bed. Bed in low position, locked, side rails up x3 and alarm on. Call light within reach. Patient in room close to nurses' station. Fall precautions implemented. No IV access, aware per AM nurse report.
[2019-08-26 20:00] VITALS: BP 127/55
--- NOTE | 2019-08-26 20:00 | NUR ---
NURSE NOTES: Attempted to start IV, unable to do so. Placed dressing.
[2019-08-26] MEDS: Sennosides 8.6mg tab ORAL SCH (20:19)
--- NOTE | 2019-08-26 20:48 | Psych Consult Progress Note ---
Psychiatry Progress Note Psychiatry Progress Note Medications Current Medications Medications (Trade) Dose Ordered Sig/Kristine Route PRN Reason Start Time Stop Time Status Last Admin Dose Admin Acetaminophen (Tylenol) 500 mg Q6H PRN ORAL Mild Pain/Temp > 100.5 08/16/19 03:00 09/05/19 08:55 08/18/19 22:28 Docusate Sodium (Colace) 250 mg DAILY ORAL 08/16/19 09:00 09/05/19 08:59 08/26/19 08:20 Escitalopram Oxalate (Lexapro) 10 mg DAILY ORAL 08/18/19 09:00 09/17/19 08:59 08/26/19 08:20 Finasteride (Proscar) 5 mg DAILY ORAL 08/16/19 09:00 11/05/19 15:44 08/26/19 08:20 Hydralazine HCl (Apresoline) 50 mg EVERY 8 HOURS ORAL 08/26/19 06:00 11/24/19 05:59 08/26/19 05:06 Lorazepam (Ativan 2mg/ml 1ml) 0.5 mg TID IM 08/24/19 09:00 08/31/19 08:59 08/26/19 17:15 Magnesium Hydroxide (Mom) 30 ml TIDPRN PRN ORAL Constipation 08/19/19 05:45 09/18/19 05:44 Nifedipine (Procardia XL) 30 mg BID ORAL 08/16/19 09:00 09/05/19 17:59 08/26/19 17:16 Nitroglycerin (Nitro-Bid) 1 inch Q6HR@0600,1200,1800 TOPIC 08/16/19 06:00 09/11/19 06:59 08/26/19 17:15 Pantoprazole (Protonix) 40 mg DAILY ORAL 08/26/19 09:00 09/25/19 08:59 08/26/19 08:20 Potassium Chloride (K-Dur) 20 meq TWICE A DAY ORAL 08/23/19 13:02 11/21/19 13:01 08/26/19 17:15 Risperidone (RisperDAL) 1 mg DAILY ORAL 08/25/19 16:00 10/09/19 15:59 08/26/19 08:20 Risperidone (RisperDAL) 2 mg BEDTIME ORAL 08/16/19 21:00 09/29/19 20:59 08/26/19 20:19 Sennosides (Senokot) 8.6 mg BEDTIME ORAL 08/16/19 21:00 09/05/19 20:59 08/26/19 20:19 Sodium Chloride 1,000 ml @ 100 mls/hr Q10H IV 08/26/19 19:00 09/25/19 18:59 Tamsulosin HCl (Flomax) 0.4 mg BID ORAL 08/18/19 18:00 09/05/19 20:59 08/26/19 17:15 Allergies: Coded Allergies: No Known Allergies (Unverified , 06/05/19) Objective Data Height (Feet): 5 Height (Inches): 6.00 Weight (Pounds): 105 Assessment/Plan Problem List: (1) Encephalopathy due to metabolic factor or toxin Assessment & Plan: 2. Psychotic disorder. SNOMED: 185197046 Status: stable, progressing, not improved Assessment/Plan: PLAN: 1. lexapro 2. risperidone. 3. dec Loco Wilson MD Aug 26, 2019 20:48
[2019-08-26 22:00] VITALS: BP 145/56
--- NOTE | 2019-08-26 22:00 | NUR ---
NURSE NOTES: IV access obtained by LUIS FERNANDO Mcguire on RFA, gauge #22. IVF started as ordered.
[2019-08-27] VITALS: BP 144/55
--- NOTE | 2019-08-27 01:00 | Progress Note ---
DATE: 08/26/2019 SUBJECTIVE: The patient remains confused but in no distress. Cooperative with staff. PHYSICAL EXAMINATION: VITAL SIGNS: Blood pressure 120/53, pulse 66, respiratory rate 18. LUNGS: Good breath sounds. No wheezing. CARDIAC: Regular rhythm and rate. Normal S1 and S2 with a 1/6 systolic apical murmur. ABDOMEN: Soft. EXTREMITIES: Trace edema. LABORATORY AND DIAGNOSTIC DATA: White count 3.7, hemoglobin 9.4. BUN 34, creatinine 2, sodium 148, potassium 4.1. Pro natriuretic peptide remains unchanged at 4400. IMPRESSION: 1. Dehydration. 2. Hypernatremia. 3. Hyperchloremia. 4. Chronic kidney disease, creatinine now at baseline. 5. Acute on chronic diastolic congestive heart failure, clinically compensated. 6. valvular cardiomyopathy. 7. Severe pulmonary hypertension. 8. Status post mitral valve replacement. PLAN: 1. Free water replacement by IV route. 2. Maintain and titrate current anti-failure and antihypertensive regimen. 3. Taper psych therapy as able. 4. Discharge planning. Gamaliel Salas M.D. DR: Lexii JOB#: [id number] CC:
--- NOTE | 2019-08-27 02:48 | NUR ---
NURSE NOTES: Sleeping quietly.
[2019-08-27 05:00] VITALS: BP 145/76
[2019-08-27] MEDS: Nitroglycerin 2% oint pkt TOPIC SCH ×3 (05:38→17:03)
[2019-08-27] MEDS: HydrALAZINE 50mg tab ORAL SCH ×4 (05:38→22:00)
--- NOTE | 2019-08-27 05:56 | NUR ---
RD ASSESSMENT & RECOMMENDATIONS SEE CARE ACTIVITY FOR COMPLETE ASSESSMENT DAILY ESTIMATED NEEDS: Needs based on Wound, 66.8kg 28-33 kcals/kg 6757-2039 total kcals 1.25-1.5 g protein/kg 84-100 g total protein 25-30 mL/kg 9044-9781 total fluid mLs NUTRITION DIAGNOSIS: Swallowing difficulty r/t dysphagia and ams as evidenced by s/p [employer] eval, poor cognition, pt on liquify puree texture diet w/ HTL, w/ variable intake. CURRENT DIET: Liquify puree NTL Regular PO DIET RECOMMENDATIONS: Maintain Regular diet, texture per [employer] ADDITIONAL RECOMMENDATIONS: 1) Ensure Enlive TID w/ meals (350kcal/20g prot per bottle) 2) Maintain calibrated bed scale wts EMR wt: 160# vs Bed scale wt: 147#-> bed now reads 109.8# 3) Monitor hydration status, rec D5 w/ poor- variable intake and to prevent hypoglycemia, Na elevated 4) Wound care: MVI 1 tab QD + Vit C 250mg QD 5) Monitor lytes, replete as needed (low Phos)
[2019-08-27 07:03] LABS: BASOPHILS % (AUTO) 0.7 % (0.0-2.0); EOSINOPHILS % (AUTO) 3.6 % (0.0-3.0); HEMATOCRIT 28.9 % (42.0-52.0); HEMOGLOBIN 9.6 G/DL (14.2-18.0); LYMPHOCYTES % (AUTO) 9.8 % (20.0-45.0); MEAN CORPUSCULAR VOLUME 89 FL (80-99); MONOCYTES % (AUTO) 6.6 % (1.0-10.0); NEUTROPHILS % (AUTO) 79.3 % (45.0-75.0); PLATELET COUNT 210 K/UL (150-450); RED BLOOD COUNT 3.24 M/UL (4.70-6.10); RED CELL DISTRIBUTION WIDTH 14.3 % (11.6-14.8); WHITE BLOOD COUNT 5.6 K/UL (4.8-10.8)
--- NOTE | 2019-08-27 07:20 | NUR ---
HAND-OFF: Report given to LUIS FERNANDO Llamas. Patient sleeping quietly.
--- NOTE | 2019-08-27 07:30 | NUR ---
NURSE NOTES: Patient is in bed awake and restless. Mumbling incomprehensible words repeatedly. Patient in bed in locked and lowest position with call light within reach and call light within reach. All safety measures provided. Will continue to monitor.
[2019-08-27] MEDS: Docusate 250mg cap ORAL SCH (09:00)
[2019-08-27] MEDS: LORazepam Inj 2mg/ml 1ml IM SCH ×4 (09:00→17:03)
[2019-08-27 09:30] LABS: ALANINE AMINOTRANSFERASE 26 U/L (12-78); ALBUMIN 2.8 G/DL (3.4-5.0); ALBUMIN/GLOBULIN RATIO 0.8 (1.0-2.7); ALKALINE PHOSPHATASE 133 U/L (46-116); ANION GAP 9 mmol/L (5-15); ASPARTATE AMINO TRANSFERASE 28 U/L (15-37); BILIRUBIN,TOTAL 0.3 MG/DL (0.2-1.0); BLOOD UREA NITROGEN 33 mg/dL (7-18); CALCIUM 10.4 MG/DL (8.5-10.1); CARBON DIOXIDE 23 MMOL/L (21-32); CHLORIDE 111 MMOL/L (98-107); CREATININE 1.8 MG/DL (0.55-1.30); POTASSIUM 4.9 MMOL/L (3.5-5.1); SODIUM 143 MMOL/L (136-145)
--- NOTE | 2019-08-27 10:41 | Urology Progress Note ---
Assessment/Plan Status: stable, progressing, not improved Assessment/Plan: 1. Gross hematuria hx, presumably secondary to Doshi trauma, resolved. 2. BPH. 3. Urinary retention. 4. Neurogenic bladder. 5. Pyuria. 6. Proteinuria. 7. Renal insufficiency, which appears to be acute on chronic. 8. Rule out urethral stricture. monitor clinically doshi out, voiding/incontinent cont flomax and proscar s/p abx off anticoagulation, resume? restraints PRN cysto at some point monitor PVR and reinsert doshi PRN renal imaging? Subjective Allergies: Coded Allergies: No Known Allergies (Unverified , 06/05/19) Subjective all noted, confused, doshi out, incontinent, condom cath Objective Last 24 Hour Vital Signs Date Time Temp Pulse Resp B/P (MAP) Pulse Ox O2 Delivery O2 Flow Rate FiO2 08/27/19 08:53 Room Air 08/27/19 05:38 145/76 08/27/19 05:38 145/76 08/27/19 05:00 97.2 86 20 145/76 (99) 97 08/27/19 00:00 97.2 64 18 144/55 (84) 98 08/26/19 22:36 145/58 08/26/19 22:00 62 145/56 (85) 08/26/19 21:00 Room Air 08/26/19 20:00 97.0 72 16 127/55 (79) 97 08/26/19 17:16 79 180/66 08/26/19 17:15 180/66 08/26/19 12:39 133/54 08/26/19 12:00 97.3 66 133/54 (80) 95 Intake and Output 08/26/19 08/27/19 19:00 07:00 Intake Total 920 ml Balance 920 ml Intake Oral 120 ml IV Total 800 ml # Voids 3 1 Microbiology Date/Time Source Procedure Growth Status 08/06/19 04:45 Nasal Nares - Final Complete 08/06/19 04:45 Nasal Nares - Final Complete 08/06/19 04:45 Rectum VRE Culture - Final NO VANCOMYCIN RESISTANT ENTEROCOCCUS ... Complete Current Medications Medications (Trade) Dose Ordered Sig/Kristine Route PRN Reason Start Time Stop Time Status Last Admin Dose Admin Acetaminophen (Tylenol) 500 mg Q6H PRN ORAL Mild Pain/Temp > 100.5 08/16/19 03:00 09/05/19 08:55 08/18/19 22:28 Docusate Sodium (Colace) 250 mg DAILY ORAL 08/16/19 09:00 09/05/19 08:59 08/26/19 08:20 Escitalopram Oxalate (Lexapro) 10 mg DAILY ORAL 08/18/19 09:00 09/17/19 08:59 08/26/19 08:20 Finasteride (Proscar) 5 mg DAILY ORAL 08/16/19 09:00 11/05/19 15:44 08/26/19 08:20 Hydralazine HCl (Apresoline) 50 mg EVERY 8 HOURS ORAL 08/26/19 06:00 11/24/19 05:59 08/27/19 05:38 Lorazepam (Ativan 2mg/ml 1ml) 0.5 mg TID IM 08/24/19 09:00 08/31/19 08:59 08/26/19 17:15 Magnesium Hydroxide (Mom) 30 ml TIDPRN PRN ORAL Constipation 08/19/19 05:45 09/18/19 05:44 Nifedipine (Procardia XL) 30 mg BID ORAL 08/16/19 09:00 09/05/19 17:59 08/26/19 17:16 Nitroglycerin (Nitro-Bid) 1 inch Q6HR@0600,1200,1800 TOPIC 08/16/19 06:00 09/11/19 06:59 08/27/19 05:38 Pantoprazole (Protonix) 40 mg DAILY ORAL 08/26/19 09:00 09/25/19 08:59 08/26/19 08:20 Potassium Chloride (K-Dur) 20 meq TWICE A DAY ORAL 08/23/19 13:02 11/21/19 13:01 08/26/19 17:15 Risperidone (RisperDAL) 1 mg DAILY ORAL 08/25/19 16:00 10/09/19 15:59 08/26/19 08:20 Risperidone (RisperDAL) 2 mg BEDTIME ORAL 08/16/19 21:00 09/29/19 20:59 08/26/19 20:19 Sennosides (Senokot) 8.6 mg BEDTIME ORAL 08/16/19 21:00 09/05/19 20:59 08/26/19 20:19 Sodium Chloride 1,000 ml @ 100 mls/hr Q10H IV 08/26/19 19:00 09/25/19 18:59 08/26/19 22:00 Tamsulosin HCl (Flomax) 0.4 mg BID ORAL 08/18/19 18:00 09/05/19 20:59 08/26/19 17:15 Laboratory Tests 08/27/19 04:50: White Blood Count 5.6#, Red Blood Count 3.24L, Hemoglobin 9.6L, Hematocrit 28.9L , Mean Corpuscular Volume 89, Mean Corpuscular Hemoglobin 29.6, Mean Corpuscular Hemoglobin Concent 33.2, Red Cell Distribution Width 14.3, Platelet Count 210, Mean Platelet Volume 6.0L, Neutrophils (%) (Auto) 79.3H, Lymphocytes (%) (Auto) 9.8L, Monocytes (%) (Auto) 6.6, Eosinophils (%) (Auto) 3.6H, Basophils (%) (Auto) 0.7, Sodium Level 143, Potassium Level 4.9, Chloride Level 111H, Carbon Dioxide Level 23, Anion Gap 9, Blood Urea Nitrogen 33H, Creatinine 1.8H, Estimat Glomerular Filtration Rate 36.1, Glucose Level 87, Calcium Level 10.4H, Magnesium Level 2.1, Total Bilirubin 0.3, Aspartate Amino Transf (AST/ SGOT) 28, Alanine Aminotransferase (ALT/SGPT) 26, Alkaline Phosphatase 133H, Total Protein 6.1L, Albumin 2.8L, Globulin 3.3, Albumin/Globulin Ratio 0.8L Height (Feet): 5 Height (Inches): 6.00 Weight (Pounds): 105 Objective exam stable abdomen soft urine grossly yellow Bamshad,Miki Perry MD Aug 27, 2019 10:41
[2019-08-27] MEDS: Tamsulosin 0.4mg cap ORAL SCH ×2 (10:57→17:04)
--- NOTE | 2019-08-27 11:47 | Pulmonology Progress Note ---
Assessment/Plan Assessment/Plan IMPRESSION: 1. Pleural effusions, small bilateral. 2. Atelectasis. 3. Pulmonary edema, questionable. 4. Hypertension. 5. Hyperlipidemia. DISCUSSION: The patient is saturating well on room air or low flow O2. I will follow as traffic controller cable. No new recommendations Kimani Hahn M.D. Subjective Interval Events: None new Constitutional: Reports: no symptoms HEENT: Repors: no symptoms Respiratory: Reports: no symptoms Cardiovascular: Reports: no symptoms Gastrointestinal/Abdominal: Reports: no symptoms Allergies: Coded Allergies: No Known Allergies (Unverified , 06/05/19) Objective Last 24 Hour Vital Signs Date Time Temp Pulse Resp B/P (MAP) Pulse Ox O2 Delivery O2 Flow Rate FiO2 08/27/19 08:53 Room Air 08/27/19 05:38 145/76 08/27/19 05:38 145/76 08/27/19 05:00 97.2 86 20 145/76 (99) 97 08/27/19 00:00 97.2 64 18 144/55 (84) 98 08/26/19 22:36 145/58 08/26/19 22:00 62 145/56 (85) 08/26/19 21:00 Room Air 08/26/19 20:00 97.0 72 16 127/55 (79) 97 08/26/19 17:16 79 180/66 08/26/19 17:15 180/66 08/26/19 12:39 133/54 08/26/19 12:00 97.3 66 133/54 (80) 95 Intake and Output 08/26/19 08/27/19 19:00 07:00 Intake Total 920 ml Balance 920 ml Intake Oral 120 ml IV Total 800 ml # Voids 3 1 General Appearance: no acute distress HEENT: normocephalic Respiratory/Chest: chest wall non-tender Cardiovascular: normal peripheral pulses Abdomen: normal bowel sounds Laboratory Tests 08/27/19 04:50: White Blood Count 5.6#, Red Blood Count 3.24L, Hemoglobin 9.6L, Hematocrit 28.9L , Mean Corpuscular Volume 89, Mean Corpuscular Hemoglobin 29.6, Mean Corpuscular Hemoglobin Concent 33.2, Red Cell Distribution Width 14.3, Platelet Count 210, Mean Platelet Volume 6.0L, Neutrophils (%) (Auto) 79.3H, Lymphocytes (%) (Auto) 9.8L, Monocytes (%) (Auto) 6.6, Eosinophils (%) (Auto) 3.6H, Basophils (%) (Auto) 0.7, Sodium Level 143, Potassium Level 4.9, Chloride Level 111H, Carbon Dioxide Level 23, Anion Gap 9, Blood Urea Nitrogen 33H, Creatinine 1.8H, Estimat Glomerular Filtration Rate 36.1, Glucose Level 87, Calcium Level 10.4H, Magnesium Level 2.1, Total Bilirubin 0.3, Aspartate Amino Transf (AST/ SGOT) 28, Alanine Aminotransferase (ALT/SGPT) 26, Alkaline Phosphatase 133H, Total Protein 6.1L, Albumin 2.8L, Globulin 3.3, Albumin/Globulin Ratio 0.8L Current Medications Medications (Trade) Dose Ordered Sig/Kristine Route PRN Reason Start Time Stop Time Status Last Admin Dose Admin Acetaminophen (Tylenol) 500 mg Q6H PRN ORAL Mild Pain/Temp > 100.5 08/16/19 03:00 09/05/19 08:55 08/18/19 22:28 Docusate Sodium (Colace) 250 mg DAILY ORAL 08/16/19 09:00 09/05/19 08:59 08/26/19 08:20 Escitalopram Oxalate (Lexapro) 10 mg DAILY ORAL 08/18/19 09:00 09/17/19 08:59 08/27/19 10:56 Finasteride (Proscar) 5 mg DAILY ORAL 08/16/19 09:00 11/05/19 15:44 08/27/19 10:57 Hydralazine HCl (Apresoline) 50 mg EVERY 8 HOURS ORAL 08/26/19 06:00 11/24/19 05:59 08/27/19 05:38 Lorazepam (Ativan 2mg/ml 1ml) 0.5 mg TID IM 08/24/19 09:00 08/31/19 08:59 08/26/19 17:15 Magnesium Hydroxide (Mom) 30 ml TIDPRN PRN ORAL Constipation 08/19/19 05:45 09/18/19 05:44 Nifedipine (Procardia XL) 30 mg BID ORAL 08/16/19 09:00 09/05/19 17:59 08/26/19 17:16 Nitroglycerin (Nitro-Bid) 1 inch Q6HR@0600,1200,1800 TOPIC 08/16/19 06:00 09/11/19 06:59 08/27/19 05:38 Pantoprazole (Protonix) 40 mg DAILY ORAL 08/26/19 09:00 09/25/19 08:59 08/27/19 10:57 Potassium Chloride (K-Dur) 20 meq TWICE A DAY ORAL 08/23/19 13:02 11/21/19 13:01 08/27/19 10:57 Risperidone (RisperDAL) 1 mg DAILY ORAL 08/25/19 16:00 10/09/19 15:59 08/27/19 10:56 Risperidone (RisperDAL) 2 mg BEDTIME ORAL 08/16/19 21:00 09/29/19 20:59 08/26/19 20:19 Sennosides (Senokot) 8.6 mg BEDTIME ORAL 08/16/19 21:00 09/05/19 20:59 08/26/19 20:19 Sodium Chloride 1,000 ml @ 100 mls/hr Q10H IV 08/26/19 19:00 09/25/19 18:59 08/26/19 22:00 Tamsulosin HCl (Flomax) 0.4 mg BID ORAL 08/18/19 18:00 09/05/19 20:59 08/27/19 10:57 Kimani Hahn MD Aug 27, 2019 11:47
--- NOTE | 2019-08-27 11:55 | Nephrology Progress Note ---
Assessment/Plan Problem List: (1) Renal failure (ARF), acute on chronic Assessment: Serum creatinine stabilizing (2) Falls frequently (3) UTI (urinary tract infection) Assessment: and hematuria (4) Anemia (5) Dehydration (6) Encephalopathy due to metabolic factor or toxin Assessment Frequent falls Acute renal failure with underlying dehydration Anemia, underlying etiology unclear UTI (urinary tract infection) Toxic metabolic encephalopathy Plan P.o. intake variable Oral potassium supplement today Check labs tomorrow Discharge planning in process previously: Increase Flomax to twice daily Correct electrolytes as needed Transfusion as needed 2D echocardiogram ejection fraction 60% Kidney ultrasound pending results Monitor renal parameters Avoid nephrotoxics Antibiotics for UTI Continue per consultants Subjective ROS Limited/Unobtainable: No Constitutional: Reports: malaise, weakness Objective Objective Last 24 Hour Vital Signs Date Time Temp Pulse Resp B/P (MAP) Pulse Ox O2 Delivery O2 Flow Rate FiO2 08/27/19 08:53 Room Air 08/27/19 05:38 145/76 08/27/19 05:38 145/76 08/27/19 05:00 97.2 86 20 145/76 (99) 97 08/27/19 00:00 97.2 64 18 144/55 (84) 98 08/26/19 22:36 145/58 08/26/19 22:00 62 145/56 (85) 08/26/19 21:00 Room Air 08/26/19 20:00 97.0 72 16 127/55 (79) 97 08/26/19 17:16 79 180/66 08/26/19 17:15 180/66 08/26/19 12:39 133/54 08/26/19 12:00 97.3 66 133/54 (80) 95 Intake and Output 08/26/19 08/27/19 19:00 07:00 Intake Total 920 ml Balance 920 ml Intake Oral 120 ml IV Total 800 ml # Voids 3 1 Current Medications Medications (Trade) Dose Ordered Sig/Kristine Route PRN Reason Start Time Stop Time Status Last Admin Dose Admin Acetaminophen (Tylenol) 500 mg Q6H PRN ORAL Mild Pain/Temp > 100.5 08/16/19 03:00 09/05/19 08:55 08/18/19 22:28 Docusate Sodium (Colace) 250 mg DAILY ORAL 08/16/19 09:00 09/05/19 08:59 08/26/19 08:20 Escitalopram Oxalate (Lexapro) 10 mg DAILY ORAL 08/18/19 09:00 09/17/19 08:59 08/27/19 10:56 Finasteride (Proscar) 5 mg DAILY ORAL 08/16/19 09:00 11/05/19 15:44 08/27/19 10:57 Hydralazine HCl (Apresoline) 50 mg EVERY 8 HOURS ORAL 08/26/19 06:00 11/24/19 05:59 08/27/19 05:38 Lorazepam (Ativan 2mg/ml 1ml) 0.5 mg TID IM 08/24/19 09:00 08/31/19 08:59 08/26/19 17:15 Magnesium Hydroxide (Mom) 30 ml TIDPRN PRN ORAL Constipation 08/19/19 05:45 09/18/19 05:44 Nifedipine (Procardia XL) 30 mg BID ORAL 08/16/19 09:00 09/05/19 17:59 08/26/19 17:16 Nitroglycerin (Nitro-Bid) 1 inch Q6HR@0600,1200,1800 TOPIC 08/16/19 06:00 09/11/19 06:59 08/27/19 05:38 Pantoprazole (Protonix) 40 mg DAILY ORAL 08/26/19 09:00 09/25/19 08:59 08/27/19 10:57 Potassium Chloride (K-Dur) 20 meq TWICE A DAY ORAL 08/23/19 13:02 11/21/19 13:01 08/27/19 10:57 Risperidone (RisperDAL) 1 mg DAILY ORAL 08/25/19 16:00 10/09/19 15:59 08/27/19 10:56 Risperidone (RisperDAL) 2 mg BEDTIME ORAL 08/16/19 21:00 09/29/19 20:59 08/26/19 20:19 Sennosides (Senokot) 8.6 mg BEDTIME ORAL 08/16/19 21:00 09/05/19 20:59 08/26/19 20:19 Sodium Chloride 1,000 ml @ 100 mls/hr Q10H IV 08/26/19 19:00 09/25/19 18:59 08/26/19 22:00 Tamsulosin HCl (Flomax) 0.4 mg BID ORAL 08/18/19 18:00 09/05/19 20:59 08/27/19 10:57 Laboratory Tests 08/27/19 04:50: White Blood Count 5.6#, Red Blood Count 3.24L, Hemoglobin 9.6L, Hematocrit 28.9L , Mean Corpuscular Volume 89, Mean Corpuscular Hemoglobin 29.6, Mean Corpuscular Hemoglobin Concent 33.2, Red Cell Distribution Width 14.3, Platelet Count 210, Mean Platelet Volume 6.0L, Neutrophils (%) (Auto) 79.3H, Lymphocytes (%) (Auto) 9.8L, Monocytes (%) (Auto) 6.6, Eosinophils (%) (Auto) 3.6H, Basophils (%) (Auto) 0.7, Sodium Level 143, Potassium Level 4.9, Chloride Level 111H, Carbon Dioxide Level 23, Anion Gap 9, Blood Urea Nitrogen 33H, Creatinine 1.8H, Estimat Glomerular Filtration Rate 36.1, Glucose Level 87, Calcium Level 10.4H, Magnesium Level 2.1, Total Bilirubin 0.3, Aspartate Amino Transf (AST/ SGOT) 28, Alanine Aminotransferase (ALT/SGPT) 26, Alkaline Phosphatase 133H, Total Protein 6.1L, Albumin 2.8L, Globulin 3.3, Albumin/Globulin Ratio 0.8L Height (Feet): 5 Height (Inches): 6.00 Weight (Pounds): 105 General Appearance: no apparent distress Objective No change Juan Jade MD Aug 27, 2019 11:55
--- NOTE | 2019-08-27 12:14 | General Progress Note ---
Assessment/Plan Problem List: (1) CHF (congestive heart failure) ICD Codes: I50.9 - Heart failure, unspecified SNOMED: 49832330 (2) Renal failure (ARF), acute on chronic ICD Codes: N17.9 - Acute kidney failure, unspecified; N18.9 - Chronic kidney disease, unspecified SNOMED: 818821700 (3) Encephalopathy due to metabolic factor or toxin SNOMED: 123746559 (4) Gross hematuria ICD Codes: R31.0 - Gross hematuria SNOMED: 677265055 (5) Falls frequently ICD Codes: R29.6 - Repeated falls SNOMED: 150780347 (6) Dehydration ICD Codes: E86.0 - Dehydration SNOMED: 99751559 (7) UTI (urinary tract infection) ICD Codes: N39.0 - Urinary tract infection, site not specified SNOMED: 80025816 (8) Anemia ICD Codes: D64.9 - Anemia, unspecified SNOMED: 132968143 Status: stable, progressing, not improved Assessment/Plan: off restraints. cardiac rx check room air o2 sat pt/ot high risk for falls. hold anticoag for now monitor Na. encourage fluids dc planning to snf once bed found at accepting snf Subjective ROS Limited/Unobtainable: No Constitutional: Reports: malaise, weakness HEENT: Reports: no symptoms Cardiovascular: Reports: no symptoms Respiratory: Reports: no symptoms Gastrointestinal/Abdominal: Reports: no symptoms Genitourinary: Reports: no symptoms Neurologic/Psychiatric: Reports: anxiety, emotional problems, pre-existing deficit Endocrine: Reports: no symptoms Hematologic/Lymphatic: Reports: anemia Allergies: Coded Allergies: No Known Allergies (Unverified , 06/05/19) All Systems: reviewed and negative except above Subjective There have been no significant overnight changes. Patient remains confused and is mumbling incomprehensibly. has not been cooperative. pulled out iv. Na up. Case management has had a difficult time finding placement. Objective Last 24 Hour Vital Signs Date Time Temp Pulse Resp B/P (MAP) Pulse Ox O2 Delivery O2 Flow Rate FiO2 08/27/19 08:53 Room Air 08/27/19 05:38 145/76 08/27/19 05:38 145/76 08/27/19 05:00 97.2 86 20 145/76 (99) 97 08/27/19 00:00 97.2 64 18 144/55 (84) 98 08/26/19 22:36 145/58 08/26/19 22:00 62 145/56 (85) 08/26/19 21:00 Room Air 08/26/19 20:00 97.0 72 16 127/55 (79) 97 08/26/19 17:16 79 180/66 08/26/19 17:15 180/66 08/26/19 12:39 133/54 Intake and Output 08/26/19 08/27/19 19:00 07:00 Intake Total 920 ml Balance 920 ml Intake Oral 120 ml IV Total 800 ml # Voids 3 1 Laboratory Tests 08/27/19 04:50: White Blood Count 5.6#, Red Blood Count 3.24L, Hemoglobin 9.6L, Hematocrit 28.9L , Mean Corpuscular Volume 89, Mean Corpuscular Hemoglobin 29.6, Mean Corpuscular Hemoglobin Concent 33.2, Red Cell Distribution Width 14.3, Platelet Count 210, Mean Platelet Volume 6.0L, Neutrophils (%) (Auto) 79.3H, Lymphocytes (%) (Auto) 9.8L, Monocytes (%) (Auto) 6.6, Eosinophils (%) (Auto) 3.6H, Basophils (%) (Auto) 0.7, Sodium Level 143, Potassium Level 4.9, Chloride Level 111H, Carbon Dioxide Level 23, Anion Gap 9, Blood Urea Nitrogen 33H, Creatinine 1.8H, Estimat Glomerular Filtration Rate 36.1, Glucose Level 87, Calcium Level 10.4H, Magnesium Level 2.1, Total Bilirubin 0.3, Aspartate Amino Transf (AST/ SGOT) 28, Alanine Aminotransferase (ALT/SGPT) 26, Alkaline Phosphatase 133H, Total Protein 6.1L, Albumin 2.8L, Globulin 3.3, Albumin/Globulin Ratio 0.8L 08/27/19 06:56: Phosphorus Level [Pending] Height (Feet): 5 Height (Inches): 6.00 Weight (Pounds): 105 Objective General Appearance: WD/WN, alert, confused Neck: supple Cardiovascular: regular rhythm Respiratory/Chest: rhonchi - bilaterally Abdomen: normal bowel sounds, non tender, soft, no organomegaly, no mass Edema: no edema noted Arm (L), no edema noted Arm (R), no edema noted Leg (L), no edema noted Leg (R), no edema noted Pedal (L), no edema noted Pedal (R), no edema noted 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
[2019-08-27 13:47] VITALS: BP 193/79
[2019-08-27 16:00] VITALS: BP 139/79
[2019-08-27] MEDS ORDERED: 1/2 NS 1000ml IV ONE (16:49)
--- NOTE | 2019-08-27 19:05 | NUR ---
NURSE NOTES: Received report from LUIS FERNANDO Llamas. Pt is sleeping, comfortably resting. No signs of acute distress noted. Pt is calm and comfortable. Easily arousable. AOx1; confused. Checked IV site, line, and rate; patent and running. No erythema, bleeding, or infiltration noted. Condom cath noted; patent and draining. Bed at lowest position. Bed alarm on. Brakes on. Siderails up x3. Call light within reach. Will continue to monitor. Addendum: 08/29/19 at 0400 by Jeremie Remy RN *Not easily arousable. But responds to light and strong pain stimulus.
--- NOTE | 2019-08-27 19:32 | NUR ---
HAND-OFF: Report given to Guerline GOULD. patient is stable.
[2019-08-27] MEDS: Sennosides 8.6mg tab ORAL SCH ×2 (21:00→21:53)
--- NOTE | 2019-08-27 23:44 | Psych Consult Progress Note ---
Psychiatry Progress Note Psychiatry Progress Note Subjective he is better still restless in the mornings. dec AH Medications Current Medications Medications (Trade) Dose Ordered Sig/Kristine Route PRN Reason Start Time Stop Time Status Last Admin Dose Admin Acetaminophen (Tylenol) 500 mg Q6H PRN ORAL Mild Pain/Temp > 100.5 08/16/19 03:00 09/05/19 08:55 08/18/19 22:28 Docusate Sodium (Colace) 250 mg DAILY ORAL 08/16/19 09:00 09/05/19 08:59 08/26/19 08:20 Escitalopram Oxalate (Lexapro) 10 mg DAILY ORAL 08/18/19 09:00 09/17/19 08:59 08/27/19 10:56 Finasteride (Proscar) 5 mg DAILY ORAL 08/16/19 09:00 11/05/19 15:44 08/27/19 10:57 Hydralazine HCl (Apresoline) 50 mg EVERY 8 HOURS ORAL 08/26/19 06:00 11/24/19 05:59 08/27/19 05:38 Lorazepam (Ativan 2mg/ml 1ml) 0.5 mg TID IM 08/24/19 09:00 08/31/19 08:59 08/27/19 17:03 Magnesium Hydroxide (Mom) 30 ml TIDPRN PRN ORAL Constipation 08/19/19 05:45 09/18/19 05:44 Nifedipine (Procardia XL) 30 mg BID ORAL 08/16/19 09:00 09/05/19 17:59 08/27/19 17:03 Nitroglycerin (Nitro-Bid) 1 inch Q6HR@0600,1200,1800 TOPIC 08/16/19 06:00 09/11/19 06:59 08/27/19 17:03 Pantoprazole (Protonix) 40 mg DAILY ORAL 08/26/19 09:00 09/25/19 08:59 08/27/19 10:57 Potassium Chloride (K-Dur) 20 meq TWICE A DAY ORAL 08/23/19 13:02 11/21/19 13:01 08/27/19 17:04 Risperidone (RisperDAL) 1 mg DAILY ORAL 08/25/19 16:00 10/09/19 15:59 08/27/19 10:56 Risperidone (RisperDAL) 2 mg BEDTIME ORAL 08/16/19 21:00 09/29/19 20:59 08/27/19 21:52 Sennosides (Senokot) 8.6 mg BEDTIME ORAL 08/16/19 21:00 09/05/19 20:59 08/26/19 20:19 Sodium Chloride 1,000 ml @ 100 mls/hr Q10H IV 08/26/19 19:00 09/25/19 18:59 08/27/19 17:04 Tamsulosin HCl (Flomax) 0.4 mg BID ORAL 08/18/19 18:00 09/05/19 20:59 08/27/19 17:04 Allergies: Coded Allergies: No Known Allergies (Unverified , 06/05/19) Objective Data Height (Feet): 5 Height (Inches): 6.00 Weight (Pounds): 105 General Appearance: no apparent distress, alert, confused Behavior Mannerisms: poor eye contact Mental Status Exam - Affect: constricted Mental Status Exam - Thought C: delusions (specify) Perceptual Disturbances: auditory Mental Status Exam - Suicidal: not present Assessment/Plan Problem List: (1) Encephalopathy due to metabolic factor or toxin Assessment & Plan: 2. Psychotic disorder. SNOMED: 950455745 Status: stable, progressing, not improved Assessment/Plan: PLAN: 1. lexapro 2. risperidone. 3. dec Loco Wilson MD Aug 27, 2019 23:44
[2019-08-28] VITALS (8 sets, daily range): BP systolic 141–193; BP diastolic 53–79
[2019-08-28] MEDS: Acetaminophen 500mg (ES) tab ORAL PRN (01:40)
--- NOTE | 2019-08-28 02:00 | NUR ---
NURSE NOTES: Pt has a fever of 100.6 but pt is very drowsy and unable to take PO medication at this time. RN gave ice packs instead and removed his blanket to cool pt down. Will continue to monitor.
--- NOTE | 2019-08-28 03:15 | Progress Note ---
DATE: 08/27/2019 CARDIOLOGY PROGRESS NOTE SUBJECTIVE: The patient is confused, but more cooperative. At times, he is pulling out IVs and refusing medications. OBJECTIVE: VITAL SIGNS: Blood pressure 145/76, pulse 86, respirations 20, afebrile. No loss of consciousness noted. LUNGS: Bilateral breath sounds. No rales. CARDIAC: Irregular rhythm and rate. Normal S1, S2. A 1/6 systolic murmur at apex. ABDOMEN: Soft. EXTREMITIES: No edema. LABORATORY DATA: White count 5.6, hemoglobin 9.6. Sodium is 143, potassium 4.9, bicarb 23. BUN 33, creatinine 1.8. Phosphorus 2.4. Magnesium 2.1. Albumin 2.8. IMPRESSION: 1. Junctional bradycardic rhythm, stable. 2. Hemodynamically significant bradycardia. 3. 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 4. Severe pulmonary hypertension. 5. Hypophosphatemia. 6. Hypovolemia and dehydration. 7. Dehydration and hypernatremia, corrected. PLAN: 1. Taper intravenous fluids to maintenance dose. 2. Continue current antihypertensives with titration. 3. Phosphorus replacement. Gamaliel Salas M.D. DR: JANY JOB#: [id number] CC:
[2019-08-28] MEDS: HydrALAZINE 50mg tab ORAL SCH ×2 (05:00→14:00)
[2019-08-28] MEDS: Nitroglycerin 2% oint pkt TOPIC SCH ×2 (05:00→12:37)
--- NOTE | 2019-08-28 06:40 | NUR ---
NURSE NOTES: MD made aware that pt was heavily sedated the entire night and that pt was not able to take PO medications for fever and blood pressure. Received new orders from MD. Orders read back and carried out. See orders for details.
--- NOTE | 2019-08-28 07:30 | NUR ---
NURSE NOTES: WALKING ROUNDS DONE WITH NIGHT RN. PATIENT AWAKE IN BED. FOLLOWING SIMPLE COMMANDS. SPEAKING MOH[place]K AND BURMESE. REPOSITIONED IN BED. DISCUSSED PLAN OF CARE FOR THE DAY. UNABLE TO VERBALIZED UNDERSTANDING. NEEDS MET AT THIS TIME. BED IN LOW AND LOCKED POSITION. CALL LIGHT WITHIN REACH. BED ALARM ACTIVATED.
--- NOTE | 2019-08-28 07:54 | NUR ---
HAND-OFF: Report given to LUIS FERNANDO Way. Pt is sleeping and in stable condition. Plan of care endorsed.
--- NOTE | 2019-08-28 08:04 | Diagnostic Imaging Report ---
EXAM: CT Head Without Intravenous Contrast CLINICAL HISTORY: ALOC TECHNIQUE: Axial computed tomography images of the head/brain without intravenous contrast. CTDI is 53.4 mGy and DLP is 1125.7 mGy-cm. One or more of the following dose reduction techniques were used: automated exposure control, adjustment of the mA and/or kV according to patient size, use of iterative reconstruction technique. Coronal reformatted images were created and reviewed. COMPARISON: CT Head 08/06/19 FINDINGS: Brain: Left medial temporal volume loss. 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 Chronic small vessel ischemic change. No hemorrhage. No mass effect or edema. No evolving territorial infarction. Ventricles: Unremarkable. No ventriculomegaly. Bones/joints: Unremarkable. No acute fracture. Soft tissues: Unremarkable. Sinuses: Mild mucosal thickening of the ethmoid air cells. No acute sinusitis. Mastoid air cells: Unremarkable as visualized. No mastoid effusion. Orbits: Bilateral lens replacements. IMPRESSION: Left medial temporal volume loss. 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 Chronic small vessel ischemic change. No acute intracranial abnormality.
--- NOTE | 2019-08-28 08:20 | NUR ---
NURSE NOTES: PATIENT RETURNED FROM CT SCAN VIA BED; ASLEEP. BED PLACED IN LOW AND LOCKED POSITION. CALL LIGHT WITHIN REACH. BED ALARM RE-ACTIVATED.
[2019-08-28 08:43] LABS: BASOPHILS % (AUTO) 0.6 % (0.0-2.0); EOSINOPHILS % (AUTO) 0.1 % (0.0-3.0); HEMATOCRIT 27.8 % (42.0-52.0); HEMOGLOBIN 9.4 G/DL (14.2-18.0); LYMPHOCYTES % (AUTO) 7.6 % (20.0-45.0); MEAN CORPUSCULAR VOLUME 89 FL (80-99); NEUTROPHILS % (AUTO) 83.7 % (45.0-75.0); PLATELET COUNT 193 K/UL (150-450); RED BLOOD COUNT 3.13 M/UL (4.70-6.10); RED CELL DISTRIBUTION WIDTH 14.3 % (11.6-14.8); WHITE BLOOD COUNT 7.1 K/UL (4.8-10.8)
[2019-08-28 08:57] LABS: ANION GAP 10 mmol/L (5-15); BLOOD UREA NITROGEN 30 mg/dL (7-18); CALCIUM 9.9 MG/DL (8.5-10.1); CARBON DIOXIDE 21 MMOL/L (21-32); CHLORIDE 106 MMOL/L (98-107); CREATININE 1.7 MG/DL (0.55-1.30); POTASSIUM 4.5 MMOL/L (3.5-5.1); SODIUM 137 MMOL/L (136-145)
[2019-08-28] MEDS: Tamsulosin 0.4mg cap ORAL SCH ×2 (09:00→18:00)
[2019-08-28] MEDS: Docusate 250mg cap ORAL SCH (09:00)
[2019-08-28 09:01] LABS: ALANINE AMINOTRANSFERASE 21 U/L (12-78); ALBUMIN 2.6 G/DL (3.4-5.0); ALBUMIN/GLOBULIN RATIO 0.8 (1.0-2.7); ALKALINE PHOSPHATASE 127 U/L (46-116); ASPARTATE AMINO TRANSFERASE 25 U/L (15-37); BILIRUBIN,TOTAL 0.4 MG/DL (0.2-1.0)
--- NOTE | 2019-08-28 09:08 | General Progress Note ---
Assessment/Plan Problem List: (1) CHF (congestive heart failure) ICD Codes: I50.9 - Heart failure, unspecified SNOMED: 45453160 (2) Renal failure (ARF), acute on chronic ICD Codes: N17.9 - Acute kidney failure, unspecified; N18.9 - Chronic kidney disease, unspecified SNOMED: 284776134 (3) Encephalopathy due to metabolic factor or toxin SNOMED: 465150004 (4) Gross hematuria ICD Codes: R31.0 - Gross hematuria SNOMED: 806187612 (5) Falls frequently ICD Codes: R29.6 - Repeated falls SNOMED: 440359823 (6) Dehydration ICD Codes: E86.0 - Dehydration SNOMED: 85630850 (7) UTI (urinary tract infection) ICD Codes: N39.0 - Urinary tract infection, site not specified SNOMED: 03050547 (8) Anemia ICD Codes: D64.9 - Anemia, unspecified SNOMED: 108091590 Status: stable, progressing, not improved Assessment/Plan: off restraints. cardiac rx check room air o2 sat pt/ot dc ativan high risk for falls. hold anticoag for now monitor Na. encourage fluids dc planning to snf once bed found at accepting snf Subjective ROS Limited/Unobtainable: Yes Constitutional: Reports: malaise, weakness HEENT: Reports: no symptoms Cardiovascular: Reports: no symptoms Respiratory: Reports: no symptoms Gastrointestinal/Abdominal: Reports: poor appetite Genitourinary: Reports: no symptoms Neurologic/Psychiatric: Reports: anxiety, pre-existing deficit Endocrine: Reports: no symptoms Hematologic/Lymphatic: Reports: anemia Allergies: Coded Allergies: No Known Allergies (Unverified , 06/05/19) All Systems: reviewed and negative except above Subjective poorly responsive this am. unable to arouse earlier. Did receive ativan last night. head ct neg. opens eyes Objective Last 24 Hour Vital Signs Date Time Temp Pulse Resp B/P (MAP) Pulse Ox O2 Delivery O2 Flow Rate FiO2 08/28/19 08:00 99.3 75 18 168/53 (91) 97 08/28/19 06:30 168/69 (102) 08/28/19 05:00 180/70 08/28/19 05:00 180/70 08/28/19 04:00 98.8 89 20 180/60 (100) 96 08/28/19 00:00 100.6 87 18 160/67 (98) 97 08/27/19 22:00 122/69 08/27/19 21:00 Room Air 08/27/19 17:03 139/79 08/27/19 17:03 94 139/79 08/27/19 16:00 97.9 94 19 139/79 (99) 98 Intake and Output 08/27/19 08/28/19 19:00 07:00 Intake Total 50 ml Output Total 850 ml Balance -800 ml Intake Oral 50 ml Output Urine Total 850 ml Laboratory Tests 08/28/19 08:30: White Blood Count 7.1, Red Blood Count 3.13L, Hemoglobin 9.4L, Hematocrit 27.8L , Mean Corpuscular Volume 89, Mean Corpuscular Hemoglobin 30.2, Mean Corpuscular Hemoglobin Concent 34.0, Red Cell Distribution Width 14.3, Platelet Count 193, Mean Platelet Volume 6.3L, Neutrophils (%) (Auto) 83.7H, Lymphocytes (%) (Auto) 7.6L, Monocytes (%) (Auto) 8.0, Eosinophils (%) (Auto) 0.1, Basophils (%) (Auto) 0.6, Sodium Level [Pending], Potassium Level [Pending], Chloride Level [Pending], Carbon Dioxide Level [Pending], Blood Urea Nitrogen [ Pending], Creatinine [Pending], Estimat Glomerular Filtration Rate [Pending], Glucose Level [Pending], Calcium Level [Pending], Total Bilirubin [Pending], Aspartate Amino Transf (AST/SGOT) [Pending], Alanine Aminotransferase (ALT/SGPT ) [Pending], Alkaline Phosphatase [Pending], Total Protein [Pending], Albumin [ Pending], Globulin [Pending] Height (Feet): 5 Height (Inches): 6.00 Weight (Pounds): 105 Objective General Appearance: WD/WN, alert, confused Neck: supple Cardiovascular: regular rhythm Respiratory/Chest: rhonchi - bilaterally Abdomen: normal bowel sounds, non tender, soft, no organomegaly, no mass Edema: no edema noted Arm (L), no edema noted Arm (R), no edema noted Leg (L), no edema noted Leg (R), no edema noted Pedal (L), no edema noted Pedal (R), no edema noted 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
--- NOTE | 2019-08-28 10:17 | Urology Progress Note ---
Assessment/Plan Status: stable, progressing, not improved Assessment/Plan: 1. Gross hematuria hx, presumably secondary to Doshi trauma, resolved. 2. BPH. 3. Urinary retention. 4. Neurogenic bladder. 5. Pyuria. 6. Proteinuria. 7. Renal insufficiency, which appears to be acute on chronic. 8. Rule out urethral stricture. monitor clinically doshi out, voiding/incontinent cont flomax and proscar s/p abx off anticoagulation, resume? restraints PRN cysto at some point monitor PVR and reinsert doshi PRN renal imaging? Subjective Allergies: Coded Allergies: No Known Allergies (Unverified , 06/05/19) Subjective all noted, confused, doshi out, incontinent, condom cath Objective Last 24 Hour Vital Signs Date Time Temp Pulse Resp B/P (MAP) Pulse Ox O2 Delivery O2 Flow Rate FiO2 08/28/19 08:00 99.3 75 18 168/53 (91) 97 08/28/19 06:30 168/69 (102) 08/28/19 05:00 180/70 08/28/19 05:00 180/70 08/28/19 04:00 98.8 89 20 180/60 (100) 96 08/28/19 00:00 100.6 87 18 160/67 (98) 97 08/27/19 22:00 122/69 08/27/19 21:00 Room Air 08/27/19 17:03 139/79 08/27/19 17:03 94 139/79 08/27/19 16:00 97.9 94 19 139/79 (99) 98 Intake and Output 08/27/19 08/28/19 19:00 07:00 Intake Total 50 ml Output Total 850 ml Balance -800 ml Intake Oral 50 ml Output Urine Total 850 ml Microbiology Date/Time Source Procedure Growth Status 08/06/19 04:45 Nasal Nares - Final Complete 08/06/19 04:45 Nasal Nares - Final Complete 08/06/19 04:45 Rectum VRE Culture - Final NO VANCOMYCIN RESISTANT ENTEROCOCCUS ... Complete Current Medications Medications (Trade) Dose Ordered Sig/Kristine Route PRN Reason Start Time Stop Time Status Last Admin Dose Admin Acetaminophen (Tylenol) 500 mg Q6H PRN ORAL Mild Pain/Temp > 100.5 08/16/19 03:00 09/05/19 08:55 08/18/19 22:28 Docusate Sodium (Colace) 250 mg DAILY ORAL 08/16/19 09:00 09/05/19 08:59 08/26/19 08:20 Escitalopram Oxalate (Lexapro) 10 mg DAILY ORAL 08/18/19 09:00 09/17/19 08:59 08/27/19 10:56 Finasteride (Proscar) 5 mg DAILY ORAL 08/16/19 09:00 11/05/19 15:44 08/27/19 10:57 Hydralazine HCl (Apresoline) 50 mg EVERY 8 HOURS ORAL 08/26/19 06:00 11/24/19 05:59 08/28/19 05:00 Magnesium Hydroxide (Mom) 30 ml TIDPRN PRN ORAL Constipation 08/19/19 05:45 09/18/19 05:44 Nifedipine (Procardia XL) 30 mg BID ORAL 08/16/19 09:00 09/05/19 17:59 08/27/19 17:03 Nitroglycerin (Nitro-Bid) 1 inch Q6HR@0600,1200,1800 TOPIC 08/16/19 06:00 09/11/19 06:59 08/28/19 05:00 Pantoprazole (Protonix) 40 mg DAILY ORAL 08/26/19 09:00 09/25/19 08:59 08/27/19 10:57 Risperidone (RisperDAL) 1 mg DAILY ORAL 08/25/19 16:00 10/09/19 15:59 08/27/19 10:56 Risperidone (RisperDAL) 2 mg BEDTIME ORAL 08/16/19 21:00 09/29/19 20:59 08/26/19 20:19 Sennosides (Senokot) 8.6 mg BEDTIME ORAL 08/16/19 21:00 09/05/19 20:59 08/26/19 20:19 Sodium Chloride 1,000 ml @ 50 mls/hr Q20H IV 08/28/19 00:30 09/27/19 00:29 08/28/19 01:40 Tamsulosin HCl (Flomax) 0.4 mg BID ORAL 08/18/19 18:00 09/05/19 20:59 08/27/19 17:04 Laboratory Tests 08/28/19 08:30: White Blood Count 7.1, Red Blood Count 3.13L, Hemoglobin 9.4L, Hematocrit 27.8L , Mean Corpuscular Volume 89, Mean Corpuscular Hemoglobin 30.2, Mean Corpuscular Hemoglobin Concent 34.0, Red Cell Distribution Width 14.3, Platelet Count 193, Mean Platelet Volume 6.3L, Neutrophils (%) (Auto) 83.7H, Lymphocytes (%) (Auto) 7.6L, Monocytes (%) (Auto) 8.0, Eosinophils (%) (Auto) 0.1, Basophils (%) (Auto) 0.6, Sodium Level 137, Potassium Level 4.5, Chloride Level 106, Carbon Dioxide Level 21, Anion Gap 10, Blood Urea Nitrogen 30H, Creatinine 1.7H, Estimat Glomerular Filtration Rate 38.6, Glucose Level 92, Calcium Level 9.9, Total Bilirubin 0.4, Aspartate Amino Transf (AST/SGOT) 25, Alanine Aminotransferase (ALT/SGPT) 21, Alkaline Phosphatase 127H, Total Protein 5.9L, Albumin 2.6L, Globulin 3.3, Albumin/Globulin Ratio 0.8L Height (Feet): 5 Height (Inches): 6.00 Weight (Pounds): 105 Objective exam stable abdomen soft urine grossly yellow Bamshad,Miki Perry MD Aug 28, 2019 10:17
--- NOTE | 2019-08-28 10:50 | Pulmonology Progress Note ---
Assessment/Plan Assessment/Plan IMPRESSION: 1. Pleural effusions, small bilateral. 2. Atelectasis. 3. Pulmonary edema, questionable. 4. Hypertension. 5. Hyperlipidemia. DISCUSSION: The patient is saturating well on room air or low flow O2. I will follow as balance assembler. No new recommendations Kimani Hahn M.D. Subjective Interval Events: None new Constitutional: Reports: no symptoms HEENT: Repors: no symptoms Respiratory: Reports: no symptoms Cardiovascular: Reports: no symptoms Gastrointestinal/Abdominal: Reports: no symptoms Allergies: Coded Allergies: No Known Allergies (Unverified , 06/05/19) Objective Last 24 Hour Vital Signs Date Time Temp Pulse Resp B/P (MAP) Pulse Ox O2 Delivery O2 Flow Rate FiO2 08/28/19 08:00 99.3 75 18 168/53 (91) 97 08/28/19 06:30 168/69 (102) 08/28/19 05:00 180/70 08/28/19 05:00 180/70 08/28/19 04:00 98.8 89 20 180/60 (100) 96 08/28/19 00:00 100.6 87 18 160/67 (98) 97 08/27/19 22:00 122/69 08/27/19 21:00 Room Air 08/27/19 17:03 139/79 08/27/19 17:03 94 139/79 08/27/19 16:00 97.9 94 19 139/79 (99) 98 Intake and Output 08/27/19 08/28/19 19:00 07:00 Intake Total 50 ml Output Total 850 ml Balance -800 ml Intake Oral 50 ml Output Urine Total 850 ml General Appearance: no acute distress HEENT: normocephalic Respiratory/Chest: chest wall non-tender Cardiovascular: normal peripheral pulses Abdomen: normal bowel sounds Laboratory Tests 08/28/19 08:30: White Blood Count 7.1, Red Blood Count 3.13L, Hemoglobin 9.4L, Hematocrit 27.8L , Mean Corpuscular Volume 89, Mean Corpuscular Hemoglobin 30.2, Mean Corpuscular Hemoglobin Concent 34.0, Red Cell Distribution Width 14.3, Platelet Count 193, Mean Platelet Volume 6.3L, Neutrophils (%) (Auto) 83.7H, Lymphocytes (%) (Auto) 7.6L, Monocytes (%) (Auto) 8.0, Eosinophils (%) (Auto) 0.1, Basophils (%) (Auto) 0.6, Sodium Level 137, Potassium Level 4.5, Chloride Level 106, Carbon Dioxide Level 21, Anion Gap 10, Blood Urea Nitrogen 30H, Creatinine 1.7H, Estimat Glomerular Filtration Rate 38.6, Glucose Level 92, Calcium Level 9.9, Total Bilirubin 0.4, Aspartate Amino Transf (AST/SGOT) 25, Alanine Aminotransferase (ALT/SGPT) 21, Alkaline Phosphatase 127H, Total Protein 5.9L, Albumin 2.6L, Globulin 3.3, Albumin/Globulin Ratio 0.8L Current Medications Medications (Trade) Dose Ordered Sig/Kristine Route PRN Reason Start Time Stop Time Status Last Admin Dose Admin Acetaminophen (Tylenol) 500 mg Q6H PRN ORAL Mild Pain/Temp > 100.5 08/16/19 03:00 09/05/19 08:55 08/18/19 22:28 Docusate Sodium (Colace) 250 mg DAILY ORAL 08/16/19 09:00 09/05/19 08:59 08/26/19 08:20 Escitalopram Oxalate (Lexapro) 10 mg DAILY ORAL 08/18/19 09:00 09/17/19 08:59 08/27/19 10:56 Finasteride (Proscar) 5 mg DAILY ORAL 08/16/19 09:00 11/05/19 15:44 08/27/19 10:57 Hydralazine HCl (Apresoline) 50 mg EVERY 8 HOURS ORAL 08/26/19 06:00 11/24/19 05:59 08/28/19 05:00 Magnesium Hydroxide (Mom) 30 ml TIDPRN PRN ORAL Constipation 08/19/19 05:45 09/18/19 05:44 Nifedipine (Procardia XL) 30 mg BID ORAL 08/16/19 09:00 09/05/19 17:59 08/27/19 17:03 Nitroglycerin (Nitro-Bid) 1 inch Q6HR@0600,1200,1800 TOPIC 08/16/19 06:00 09/11/19 06:59 08/28/19 05:00 Pantoprazole (Protonix) 40 mg DAILY ORAL 08/26/19 09:00 09/25/19 08:59 08/27/19 10:57 Risperidone (RisperDAL) 1 mg DAILY ORAL 08/25/19 16:00 10/09/19 15:59 08/27/19 10:56 Risperidone (RisperDAL) 2 mg BEDTIME ORAL 08/16/19 21:00 09/29/19 20:59 08/26/19 20:19 Sennosides (Senokot) 8.6 mg BEDTIME ORAL 08/16/19 21:00 09/05/19 20:59 08/26/19 20:19 Sodium Chloride 1,000 ml @ 50 mls/hr Q20H IV 08/28/19 00:30 09/27/19 00:29 08/28/19 01:40 Tamsulosin HCl (Flomax) 0.4 mg BID ORAL 08/18/19 18:00 09/05/19 20:59 08/27/19 17:04 Kimani Hahn MD Aug 28, 2019 10:49
--- NOTE | 2019-08-28 12:45 | NUR ---
NURSE NOTES: PLACED CALL TO DR. HUDSON CONCERNING PT.'S VITALS AND MENTAL STATUS.T 100.4-AXILLARY/BP 186/57 /HR 64 SPO2 98% RA RR 21. PATIENT MORE AROUSABLE THAN EARLIER THIS A.M. ABLE TO ANSWER SIMPLE QUESTIONS SUCH "ARE YOU SLEEPY?" RESPONDED YES. UNABLE TO GIVE AM MEDS VIA PO. NEW ORDERS RECEIVED. WILL RE-EVALUATE BP AFTER NITRO PASTE GIVEN SCHEDULED. BED IN LOW AND LOCKED POSITION. REPOSITIONED Q2H. BED ALARM REMAINS ACTIVATED. CALL LIGHT WITHIN REACH.
[2019-08-28 12:53] LABS: APPEARANCE,URINE CLEAR; BILIRUBIN, URINE NEGATIVE (NEGATIVE); COLOR,URINE PALE YELLOW; GLUCOSE, URINE (UA) NEGATIVE (NEGATIVE); KETONES,URINE 1+ (NEGATIVE); LEUKOCYTE ESTERASE ,URINE NEGATIVE (NEGATIVE); NITRITE,URINE NEGATIVE (NEGATIVE); PH,URINE 6.5 (4.5-8.0); PROTEIN,URINE 3+ (NEGATIVE); UROBILINOGEN,URINE NORMAL MG/DL (0.0-1.0)
--- NOTE | 2019-08-28 13:15 | Nephrology Progress Note ---
Assessment/Plan Problem List: (1) Renal failure (ARF), acute on chronic Assessment: Serum creatinine stabilizing (2) Falls frequently (3) UTI (urinary tract infection) Assessment: and hematuria (4) Anemia (5) Dehydration (6) Encephalopathy due to metabolic factor or toxin Assessment Frequent falls Acute renal failure with underlying dehydration Anemia, underlying etiology unclear UTI (urinary tract infection) Toxic metabolic encephalopathy Plan P.o. intake variable Oral potassium supplement today Check labs tomorrow Discharge planning in process previously: Increase Flomax to twice daily Correct electrolytes as needed Transfusion as needed 2D echocardiogram ejection fraction 60% Kidney ultrasound pending results Monitor renal parameters Avoid nephrotoxics Antibiotics for UTI Continue per consultants Subjective ROS Limited/Unobtainable: No Constitutional: Reports: malaise, weakness Objective Objective Last 24 Hour Vital Signs Date Time Temp Pulse Resp B/P (MAP) Pulse Ox O2 Delivery O2 Flow Rate FiO2 08/28/19 12:37 186/57 08/28/19 12:00 100.4 64 21 186/57 (100) 98 08/28/19 09:00 Room Air 08/28/19 08:00 99.3 75 18 168/53 (91) 97 08/28/19 06:30 168/69 (102) 08/28/19 05:00 180/70 08/28/19 05:00 180/70 08/28/19 04:00 98.8 89 20 180/60 (100) 96 08/28/19 00:00 100.6 87 18 160/67 (98) 97 08/27/19 22:00 122/69 08/27/19 21:00 Room Air 08/27/19 17:03 139/79 08/27/19 17:03 94 139/79 08/27/19 16:00 97.9 94 19 139/79 (99) 98 Intake and Output 08/27/19 08/28/19 19:00 07:00 Intake Total 50 ml Output Total 850 ml Balance -800 ml Intake Oral 50 ml Output Urine Total 850 ml Laboratory Tests 08/28/19 08:30: White Blood Count 7.1, Red Blood Count 3.13L, Hemoglobin 9.4L, Hematocrit 27.8L , Mean Corpuscular Volume 89, Mean Corpuscular Hemoglobin 30.2, Mean Corpuscular Hemoglobin Concent 34.0, Red Cell Distribution Width 14.3, Platelet Count 193, Mean Platelet Volume 6.3L, Neutrophils (%) (Auto) 83.7H, Lymphocytes (%) (Auto) 7.6L, Monocytes (%) (Auto) 8.0, Eosinophils (%) (Auto) 0.1, Basophils (%) (Auto) 0.6, Sodium Level 137, Potassium Level 4.5, Chloride Level 106, Carbon Dioxide Level 21, Anion Gap 10, Blood Urea Nitrogen 30H, Creatinine 1.7H, Estimat Glomerular Filtration Rate 38.6, Glucose Level 92, Calcium Level 9.9, Total Bilirubin 0.4, Aspartate Amino Transf (AST/SGOT) 25, Alanine Aminotransferase (ALT/SGPT) 21, Alkaline Phosphatase 127H, Total Protein 5.9L, Albumin 2.6L, Globulin 3.3, Albumin/Globulin Ratio 0.8L 08/28/19 12:31: Urine Color [Pending], Urine Appearance [Pending], Urine pH [Pending], Urine Specific Abbott [Pending], Urine Protein [Pending], Urine Glucose (UA) [Pending ], Urine Ketones [Pending], Urine Blood [Pending], Urine Nitrite [Pending], Urine Bilirubin [Pending], Urine Urobilinogen [Pending], Urine Leukocyte Esterase [Pending], Urine RBC [Pending], Urine WBC [Pending], Urine Squamous Epithelial Cells [Pending], Urine Bacteria [Pending] Height (Feet): 5 Height (Inches): 6.00 Weight (Pounds): 105 General Appearance: no apparent distress Objective No change Juan Jade MD Aug 28, 2019 13:15
--- NOTE | 2019-08-28 13:26 | Diagnostic Imaging Report ---
EXAM: XR Chest, 1 View CLINICAL HISTORY: FATIGUE TECHNIQUE: Frontal view of the chest. COMPARISON: Chest radiograph on 08/25/2019 FINDINGS: Hardware: None. Lungs/pleura: Slightly increased patchy opacity throughout the lung, most prominent throughout the left mid and lower lung and right lower lung. Possible trace bilateral pleural effusions. Heart/mediastinum: Stable borderline size of the cardiac silhouette. Atherosclerotic calcifications of the aorta. Median sternotomy changes. Soft tissues: Unremarkable. Bones: No acute fracture. Degenerative changes of the acromioclavicular joints and spine. Upper abdomen: Normal. IMPRESSION: Slightly increased patchy opacity throughout the lung, most prominent throughout the left mid and lower lung and right lower lung which may represent infectious/inflammatory process and/or pulmonary edema. Possible trace bilateral pleural effusions.
--- NOTE | 2019-08-28 13:47 | NUR ---
NURSE NOTES: VTIALS RE-CHECKED: T 100.4 AX BP 193/79 HR 84 RR 18 SPO2 97% RA. PT. MORE AROUSABLE BUT UNABLE TO TAKE PO. DR. HUDSON NOTIFIED. TRANSFER ORDERED PLACED. CHARGE NURSE NOTIFIED; NURSING CARDROOM PLASTIC CARD GRADER NOTIFIED. PATIENT WILL BE TRANSFERRED TO TELEMETRY. AWAITING ROOM #.
--- NOTE | 2019-08-28 14:48 | NUR ---
PT Note Was advised by RN to hold physical therapy today due to change in condition. Will check again in AM.
--- NOTE | 2019-08-28 17:45 | NUR ---
NURSE NOTES: PATIENT TRANSFERRED TO TELEMETRY VIA BED. PATIENT AOX1. RAMBLING WORDS. REPORT GIVEN TO LIEN GOULD. BELONGINGS ACCOUNTED FOR.
[2019-08-28] MEDS ORDERED: Acetaminophen 500mg (ES) tab ORAL PRN (18:30)
--- NOTE | 2019-08-28 19:50 | NUR ---
NURSE NOTES: Received pt and report from LUIS FERNANDO Caputo. Observed pt resting in bed with both eyes closed; arousable to voice and light shake. Pt is A/Ox1. radiation monitor is in placed; pt is A. Fib. IV site intact, asymptomatic, and patent. Bed is in the lowest position and locked. Call light and bedside table is within reach. No signs/symptoms of acute distress noted at this time. Will continue plan of care.
--- NOTE | 2019-08-28 20:04 | NUR ---
HAND-OFF: Report given to Salena Rosas RN. Patient in supine position, awake but eyes closed, talking in Icelandic, confused, pulling on EKG 5-lead wires, on room air, condom cath in place, side rails up x 3, bed in lowest position, call light within reach, right wrist 22 gauge IV patent, wrapped with Kerlix. Addendum: 08/28/19 at 2018 by FAYE FERRER RN Error: Report given to Lori Garnica RN.
[2019-08-28] MEDS: Sennosides 8.6mg tab ORAL SCH (21:14)
[2019-08-29] VITALS: BP 152/57
[2019-08-29 04:00] VITALS: BP 144/79
--- NOTE | 2019-08-29 04:45 | Progress Note ---
DATE: 08/28/2019 CARDIOLOGY PROGRESS NOTE SUBJECTIVE: The patient remains poorly responsive. Lorazepam was given for agitation at times. OBJECTIVE: VITAL SIGNS: Blood pressure 168/53, pulse 75, respirations 18, temperature max 100.6. LUNGS: Bilateral breath sounds. No wheezing. CARDIAC: Regular rhythm and rate. Normal S1 and S2. 2/6 systolic murmur at apex. ABDOMEN: Soft. EXTREMITIES: No edema. LABORATORY DATA: Chest x-ray, patchy opacity in all lung [place]. White count 7 and hemoglobin 9.4. Potassium 4.5, BUN 30, and creatinine 1.7. Albumin 2.6. 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 3. Asymptomatic junctional rhythm. 4. Hypertensive heart disease with labile blood pressure. 5. Dehydration and hypernatremia corrected. 6. Hypovolemia, improved. PLAN: 1. Discontinue intravenous fluids. 2. Encourage oral intake. 3. Consider advancing antihypertensive therapy if clinical blood pressure parameters remain elevated. Gamaliel Salas M.D. DR: ANDRE JOB#: [id number] CC:
[2019-08-29] MEDS: Nitroglycerin 2% oint pkt TOPIC SCH ×3 (05:29→18:00)
[2019-08-29] MEDS ORDERED: Milk of Magnesia 30ml Ud ORAL PRN (05:45)
[2019-08-29 08:00] VITALS: BP 161/69
--- NOTE | 2019-08-29 08:00 | NUR ---
NURSE NOTES: Received report from LUIS FERNANDO Brizuela. Observed pt sleeping in bed, breathing even and unlabored in RA. No s/sx of acute distress/pain. Bed on lowest position, call light within reach. Will continue plan of care.
--- NOTE | 2019-08-29 08:02 | General Progress Note ---
Assessment/Plan Problem List: (1) CHF (congestive heart failure) ICD Codes: I50.9 - Heart failure, unspecified SNOMED: 57065511 (2) Renal failure (ARF), acute on chronic ICD Codes: N17.9 - Acute kidney failure, unspecified; N18.9 - Chronic kidney disease, unspecified SNOMED: 181973196 (3) Encephalopathy due to metabolic factor or toxin SNOMED: 399043285 (4) Gross hematuria ICD Codes: R31.0 - Gross hematuria SNOMED: 847689417 (5) Falls frequently ICD Codes: R29.6 - Repeated falls SNOMED: 406845088 (6) Dehydration ICD Codes: E86.0 - Dehydration SNOMED: 10349226 (7) UTI (urinary tract infection) ICD Codes: N39.0 - Urinary tract infection, site not specified SNOMED: 08936140 (8) Anemia ICD Codes: D64.9 - Anemia, unspecified SNOMED: 938052138 Status: stable, progressing, not improved Assessment/Plan: off restraints. cardiac rx check room air o2 sat pt/ot dc ativan high risk for falls. hold anticoag for now monitor Na. encourage fluids dc planning to snf once bed found at accepting snf Subjective ROS Limited/Unobtainable: No Constitutional: Reports: malaise, weakness HEENT: Reports: no symptoms Cardiovascular: Reports: no symptoms Respiratory: Reports: no symptoms Gastrointestinal/Abdominal: Reports: difficulty swallowing Genitourinary: Reports: no symptoms Neurologic/Psychiatric: Reports: depressed Endocrine: Reports: no symptoms Hematologic/Lymphatic: Reports: anemia Allergies: Coded Allergies: No Known Allergies (Unverified , 06/05/19) All Systems: reviewed and negative except above Subjective transferred to [facility] pt was too lethargic to take oral bp meds. IV could not be given on the floor. more alert today. anxiolytics held Objective Last 24 Hour Vital Signs Date Time Temp Pulse Resp B/P (MAP) Pulse Ox O2 Delivery O2 Flow Rate FiO2 08/29/19 05:29 154/59 08/29/19 04:00 97.7 90 19 144/79 (100) 97 08/29/19 04:00 74 08/29/19 00:00 97.4 84 20 152/57 (88) 98 08/29/19 00:00 89 08/28/19 21:00 Room Air 08/28/19 20:00 97.1 91 19 141/66 (91) 97 08/28/19 20:00 87 08/28/19 18:28 193/77 08/28/19 18:00 85 182/79 08/28/19 16:00 100.6 85 18 182/79 (113) 94 08/28/19 13:45 101.0 84 18 193/79 (117) 97 08/28/19 12:37 186/57 08/28/19 12:00 100.4 64 21 186/57 (100) 98 08/28/19 09:00 Room Air Intake and Output 08/28/19 08/29/19 19:00 07:00 Intake Total 350 ml Output Total 300 ml 375 ml Balance 50 ml -375 ml IV Total 350 ml Output Urine Total 300 ml 375 ml Laboratory Tests 08/28/19 08:30: White Blood Count 7.1, Red Blood Count 3.13L, Hemoglobin 9.4L, Hematocrit 27.8L , Mean Corpuscular Volume 89, Mean Corpuscular Hemoglobin 30.2, Mean Corpuscular Hemoglobin Concent 34.0, Red Cell Distribution Width 14.3, Platelet Count 193, Mean Platelet Volume 6.3L, Neutrophils (%) (Auto) 83.7H, Lymphocytes (%) (Auto) 7.6L, Monocytes (%) (Auto) 8.0, Eosinophils (%) (Auto) 0.1, Basophils (%) (Auto) 0.6, Sodium Level 137, Potassium Level 4.5, Chloride Level 106, Carbon Dioxide Level 21, Anion Gap 10, Blood Urea Nitrogen 30H, Creatinine 1.7H, Estimat Glomerular Filtration Rate 38.6, Glucose Level 92, Calcium Level 9.9, Total Bilirubin 0.4, Aspartate Amino Transf (AST/SGOT) 25, Alanine Aminotransferase (ALT/SGPT) 21, Alkaline Phosphatase 127H, Total Protein 5.9L, Albumin 2.6L, Globulin 3.3, Albumin/Globulin Ratio 0.8L 08/28/19 12:31: Urine Color Pale yellow, Urine Appearance Clear, Urine pH 6.5, Urine Specific Ruffin 1.010, Urine Protein 3+H, Urine Glucose (UA) Negative, Urine Ketones 1+H , Urine Blood Negative, Urine Nitrite Negative, Urine Bilirubin Negative, Urine Urobilinogen Normal, Urine Leukocyte Esterase Negative, Urine RBC 0, Urine WBC 0 -2, Urine Squamous Epithelial Cells Occasional, Urine Bacteria Occasional Height (Feet): 5 Height (Inches): 6.00 Weight (Pounds): 105 Objective General Appearance: WD/WN, alert, confused Neck: supple Cardiovascular: regular rhythm Respiratory/Chest: rhonchi - bilaterally Abdomen: normal bowel sounds, non tender, soft, no organomegaly, no mass Edema: no edema noted Arm (L), no edema noted Arm (R), no edema noted Leg (L), no edema noted Leg (R), no edema noted Pedal (L), no edema noted Pedal (R), no edema noted 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
--- NOTE | 2019-08-29 08:20 | NUR ---
HAND-OFF: Report given to LUIS FERNANDO Brizuela. Plan of care endorsed.
[2019-08-29] MEDS: Docusate 250mg cap ORAL SCH (08:47)
[2019-08-29] MEDS: Tamsulosin 0.4mg cap ORAL SCH ×2 (08:48→18:00)
--- NOTE | 2019-08-29 08:51 | Urology Progress Note ---
Assessment/Plan Status: stable, progressing, not improved Assessment/Plan: 1. Gross hematuria hx, presumably secondary to Doshi trauma, resolved. 2. BPH. 3. Urinary retention. 4. Neurogenic bladder. 5. Pyuria. 6. Proteinuria. 7. Renal insufficiency, which appears to be acute on chronic. 8. Rule out urethral stricture. monitor clinically doshi out, voiding/incontinent cont flomax and proscar s/p abx off anticoagulation, resume? restraints PRN cysto at some point monitor PVR and reinsert doshi PRN renal imaging? Subjective Allergies: Coded Allergies: No Known Allergies (Unverified , 06/05/19) Subjective all noted, confused, doshi out, incontinent, condom cath Objective Last 24 Hour Vital Signs Date Time Temp Pulse Resp B/P (MAP) Pulse Ox O2 Delivery O2 Flow Rate FiO2 08/29/19 08:00 97.3 53 18 161/69 (99) 97 08/29/19 05:29 154/59 08/29/19 04:00 97.7 90 19 144/79 (100) 97 08/29/19 04:00 74 08/29/19 00:00 97.4 84 20 152/57 (88) 98 08/29/19 00:00 89 08/28/19 21:00 Room Air 08/28/19 20:00 97.1 91 19 141/66 (91) 97 08/28/19 20:00 87 08/28/19 18:28 193/77 08/28/19 18:00 85 182/79 08/28/19 16:00 100.6 85 18 182/79 (113) 94 08/28/19 13:45 101.0 84 18 193/79 (117) 97 08/28/19 12:37 186/57 08/28/19 12:00 100.4 64 21 186/57 (100) 98 08/28/19 09:00 Room Air Intake and Output 08/28/19 08/29/19 19:00 07:00 Intake Total 350 ml Output Total 300 ml 375 ml Balance 50 ml -375 ml IV Total 350 ml Output Urine Total 300 ml 375 ml Microbiology Date/Time Source Procedure Growth Status 08/06/19 04:45 Nasal Nares - Final Complete 08/06/19 04:45 Nasal Nares - Final Complete 08/28/19 12:31 Indwelling Cath Urine Culture - Preliminary Gram Negative Bacillus 1 Resulted 08/06/19 04:45 Rectum VRE Culture - Final NO VANCOMYCIN RESISTANT ENTEROCOCCUS ... Complete Current Medications Medications (Trade) Dose Ordered Sig/Kristine Route PRN Reason Start Time Stop Time Status Last Admin Dose Admin Acetaminophen (Tylenol) 500 mg Q6H PRN ORAL MILD/TEMP 08/28/19 18:30 09/05/19 18:29 Docusate Sodium (Colace) 250 mg DAILY ORAL 08/29/19 09:00 09/05/19 08:59 Escitalopram Oxalate (Lexapro) 10 mg DAILY ORAL 08/29/19 09:00 09/17/19 08:59 Finasteride (Proscar) 5 mg DAILY ORAL 08/29/19 09:00 11/05/19 15:44 Hydralazine HCl (Apresoline) 10 mg Q8H PRN IV For High Blood Pressure 08/28/19 18:15 11/26/19 18:14 08/28/19 18:28 Magnesium Hydroxide (Mom) 30 ml TIDPRN PRN ORAL Constipation 08/29/19 05:45 09/18/19 05:44 Nifedipine (Procardia XL) 30 mg BID ORAL 08/29/19 09:00 09/05/19 17:59 Nitroglycerin (Nitro-Bid) 1 inch Q6HR@0600,1200,1800 TOPIC 08/29/19 06:00 09/11/19 06:59 08/29/19 05:29 Pantoprazole (Protonix) 40 mg DAILY ORAL 08/29/19 09:00 09/25/19 08:59 Risperidone (RisperDAL) 1 mg DAILY ORAL 08/29/19 09:00 10/09/19 15:59 Risperidone (RisperDAL) 2 mg BEDTIME ORAL 08/28/19 21:00 09/29/19 20:59 08/28/19 21:14 Sennosides (Senokot) 8.6 mg BEDTIME ORAL 08/28/19 21:00 09/05/19 20:59 08/28/19 21:14 Tamsulosin HCl (Flomax) 0.4 mg BID ORAL 08/29/19 09:00 09/05/19 20:59 Laboratory Tests 08/28/19 12:31: Urine Color Pale yellow, Urine Appearance Clear, Urine pH 6.5, Urine Specific [place] 1.010, Urine Protein 3+H, Urine Glucose (UA) Negative, Urine Ketones 1+H , Urine Blood Negative, Urine Nitrite Negative, Urine Bilirubin Negative, Urine Urobilinogen Normal, Urine Leukocyte Esterase Negative, Urine RBC 0, Urine WBC 0 -2, Urine Squamous Epithelial Cells Occasional, Urine Bacteria Occasional Height (Feet): 5 Height (Inches): 6.00 Weight (Pounds): 105 Objective exam stable abdomen soft urine grossly yellow Bamshad,Miki Perry MD Aug 29, 2019 08:50
--- NOTE | 2019-08-29 10:33 | Pulmonology Progress Note ---
Assessment/Plan Assessment/Plan IMPRESSION: 1. Pleural effusions, small bilateral. 2. Atelectasis. 3. Pulmonary edema, questionable. 4. Hypertension. 5. Hyperlipidemia. DISCUSSION: The patient is saturating well on room air or low flow O2. 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 No new recommendations Kimani Hahn M.D. Subjective Interval Events: None new Constitutional: Reports: no symptoms HEENT: Repors: no symptoms Respiratory: Reports: no symptoms Cardiovascular: Reports: no symptoms Allergies: Coded Allergies: No Known Allergies (Unverified , 06/05/19) Objective Last 24 Hour Vital Signs Date Time Temp Pulse Resp B/P (MAP) Pulse Ox O2 Delivery O2 Flow Rate FiO2 08/29/19 08:48 69 161/69 08/29/19 08:00 97.3 69 18 161/69 (99) 97 08/29/19 05:29 154/59 08/29/19 04:00 97.7 90 19 144/79 (100) 97 08/29/19 04:00 74 08/29/19 00:00 97.4 84 20 152/57 (88) 98 08/29/19 00:00 89 08/28/19 21:00 Room Air 08/28/19 20:00 97.1 91 19 141/66 (91) 97 08/28/19 20:00 87 08/28/19 18:28 193/77 08/28/19 18:00 85 182/79 08/28/19 16:00 100.6 85 18 182/79 (113) 94 08/28/19 13:45 101.0 84 18 193/79 (117) 97 08/28/19 12:37 186/57 08/28/19 12:00 100.4 64 21 186/57 (100) 98 Intake and Output 08/28/19 08/29/19 19:00 07:00 Intake Total 350 ml Output Total 300 ml 375 ml Balance 50 ml -375 ml IV Total 350 ml Output Urine Total 300 ml 375 ml General Appearance: no acute distress HEENT: normocephalic Respiratory/Chest: chest wall non-tender Cardiovascular: normal peripheral pulses Microbiology Date/Time Source Procedure Growth Status 08/28/19 12:31 Indwelling Cath Urine Culture - Preliminary Gram Negative Bacillus 1 Resulted Laboratory Tests 08/28/19 12:31: Urine Color Pale yellow, Urine Appearance Clear, Urine pH 6.5, Urine Specific [place] 1.010, Urine Protein 3+H, Urine Glucose (UA) Negative, Urine Ketones 1+H , Urine Blood Negative, Urine Nitrite Negative, Urine Bilirubin Negative, Urine Urobilinogen Normal, Urine Leukocyte Esterase Negative, Urine RBC 0, Urine WBC 0 -2, Urine Squamous Epithelial Cells Occasional, Urine Bacteria Occasional Current Medications Medications (Trade) Dose Ordered Sig/Kristine Route PRN Reason Start Time Stop Time Status Last Admin Dose Admin Acetaminophen (Tylenol) 500 mg Q6H PRN ORAL MILD/TEMP 08/28/19 18:30 09/05/19 18:29 Docusate Sodium (Colace) 250 mg DAILY ORAL 08/29/19 09:00 09/05/19 08:59 08/29/19 08:47 Escitalopram Oxalate (Lexapro) 10 mg DAILY ORAL 08/29/19 09:00 09/17/19 08:59 08/29/19 08:48 Finasteride (Proscar) 5 mg DAILY ORAL 08/29/19 09:00 11/05/19 15:44 08/29/19 08:47 Hydralazine HCl (Apresoline) 10 mg Q8H PRN IV For High Blood Pressure 08/28/19 18:15 11/26/19 18:14 08/28/19 18:28 Magnesium Hydroxide (Mom) 30 ml TIDPRN PRN ORAL Constipation 08/29/19 05:45 09/18/19 05:44 Nifedipine (Procardia XL) 30 mg BID ORAL 08/29/19 09:00 09/05/19 17:59 08/29/19 08:48 Nitroglycerin (Nitro-Bid) 1 inch Q6HR@0600,1200,1800 TOPIC 08/29/19 06:00 09/11/19 06:59 08/29/19 05:29 Pantoprazole (Protonix) 40 mg DAILY ORAL 08/29/19 09:00 09/25/19 08:59 08/29/19 08:48 Risperidone (RisperDAL) 1 mg DAILY ORAL 08/29/19 09:00 10/09/19 15:59 08/29/19 08:49 Risperidone (RisperDAL) 2 mg BEDTIME ORAL 08/28/19 21:00 09/29/19 20:59 08/28/19 21:14 Sennosides (Senokot) 8.6 mg BEDTIME ORAL 08/28/19 21:00 09/05/19 20:59 08/28/19 21:14 Tamsulosin HCl (Flomax) 0.4 mg BID ORAL 08/29/19 09:00 09/05/19 20:59 08/29/19 08:48 Kimani Hahn MD Aug 29, 2019 10:33
[2019-08-29 12:00] VITALS: BP 127/55
--- NOTE | 2019-08-29 13:10 | NUR ---
CASE MANAGEMENT:REVIEW 08/27/19 SI:FREQUENT FALLS . METABOLIC VS TOXIC ENCEPHALOPATHY . PULMONARY EDEMA . BILATERAL PLEURAL EFFUSION. AC/CHR RENAL FAILURE. UTI. ANEMIA. GROSS HEMATURIA 101.0 84 18 193/79 97% ON RA H/H 9.6/28.9 CL-111 BUN 33 CREAT 1.8 CA+ 10.4 ALKP 133 PHOS 2.4 IS:PROSCAR PO QD K-DUR PO BID FLOMAX PO BID NITRO-BID SENOKOT PO QHS NORVASC PO QD HYDRALAZINE PO Q8HR/PRN IV PROTONIX QD RISPERDAL PO QHS/QD NITRO-BID Q6HR \: 3E MED SURG UNIT DCP: PATIENT IS REQUIRING SKILLED NEED AT THIS TIME; NO BED AVAILABLE TO ACCOMMODATE DUE TO COVID-19 CRISIS; FACILITY REQUIRES THAT RETURNING PATIENT BE ISOLATED FOR 14 DAY PRIOR WHEN RETURN, BUT AGAIN AT THIS TIME NO AVAILABLE BEDS AT [facility]. 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 METABOLIC VS TOXIC ENCEPHALOPATHY . PULMONARY EDEMA . BILATERAL PLEURAL EFFUSION. AC/CHR RENAL FAILURE. UTI. ANEMIA. GROSS HEMATURIA 101.3 84 193/79 97% ON RA H/H 9.4/27.8 BUN 30 CREAT 1.7 CA+ 10.4 ALKP 127 IS:PROSCAR PO QD K-DUR PO BID FLOMAX PO BID NITRO-BID SENOKOT PO QHS NORVASC PO QD HYDRALAZINE PO Q8HR/PRN IV PROTONIX QD RISPERDAL PO QHS/QD NITRO-BID Q6HR \: TRANSFER TO [facility] FOR HIGH BLOOD PRESSURE DCP: [facility] PLAN: CONTROL BP CONTROL FEVERS CASE MANAGEMENT:REVIEW 08/29/19 SI:FREQUENT FALLS . METABOLIC VS TOXIC ENCEPHALOPATHY . PULMONARY EDEMA . BILATERAL PLEURAL EFFUSION. AC/CHR RENAL FAILURE. UTI. ANEMIA. GROSS HEMATURIA 97.3 69 18 161/69 97% ON RA IS:PROSCAR PO QD K-DUR PO BID FLOMAX PO BID NITRO-BID SENOKOT PO QHS NORVASC PO QD HYDRALAZINE PO Q8HR/PRN IV PROTONIX QD RISPERDAL PO QHS/QD NITRO-BID Q6HR \: TRANSFER TO [facility] FOR HIGH BLOOD PRESSURE DCP: [facility] WHEN MEDICALLY CLEARED PLAN: CONTROL BP CONTROL FEVERS START ON OXYGEN THERAPY DC IVF AND ENCOURAGE ORAL INTAKE
--- NOTE | 2019-08-29 13:24 | NUR ---
DISCHARGE SWALLOW/SPEECH THERAPY SUMMARY: PATIENT NOW ON 3 . SEEN FOR DYSPHAGIA, SEE SWALLOW EVALUATION AND MODIFIED BARIUM SWALLOW STUDY (MBSS) REPORT. GOALS FOR INTAKE HIGHLY VARIABLE (0/10/25/100%) WITH LIQUIFIED PUREED LIKE NECTAR THICK SOUP DIET NO THIN LIQUIDS TSP LEVEL WITH OTHER ASPIRATION PRECAUTIONS. GOALS MET FOR NEW STAFF (LUIS FERNANDO RAY, NO [employer] CAPTAIN AVAILABLE) EDUCATED/TRAINED IN POSTED PRECAUTIONS. PO TRIALS GIVEN WITH HIGH CALORIE SUPPLEMENT (NECTAR THICK LIQUIDS) VIA TSP. SWALLOWS AFTER 3 SECONDS WITH FAIR HYOLARYNGEAL EXCURSION, NO ORAL RESIDUE NOR OVERT ASPIRATION 10/10 TIMES. GIVEN SIP OF NECTAR THICK LIQUIDS SIP VIA CUP, AFTER SWISHING THE LIQUID IN HIS MOUTH OR CHEWING IT UNNECESSARILY, HE SWALLOWS AFTER 6 SECONDS WITH FAIR HYOLARYNGEAL EXCURSION, NO ORAL RESIDUE NOR OVERT ASPIRATION (5/5 TIMES). GETS SOB FROM BASELINE OF 18-20 BPM TO 24 OR 26 BPM. AFTER 2 MIN REST, BACK TO BASELINE OF 20 BPM. HIGHER RESP RATE ABOVE 24 BPM MAKES HIM AT HIGHER RISK OF ASPIRATION. PATIENT ALSO AT RISK FOR INHALING INSTEAD OF EXHALING WITH SWALLOWING WHEN RESP RATE IS RAPID AND INCOORDINATED. PATIENT WAS CUED NOT TO TALK THROUGHOUT PO TRIALS. HE WILL TALK SAYING INTELLIGIBLE AND SOME UNINTELLIGIBLE WORDS EVEN WHEN NO ONE IS IN THE ROOM. POOR FOLLOWING COMMANDS AND ANSWERING SIMPLE YES/NO QUESTIONS WHICH MAKES HIM A POOR CANDIDATE FOR DYSPHAGIA TX. PLAN: CONTINUE WITH CURRENT DIET/LIQUIDS USING POSTED PRECAUTIONS. CONTINUE WITH PLAN OF CARE IN MODIFIED BARIUM SWALLOW STUDY REPORT
--- NOTE | 2019-08-29 13:25 | Nephrology Progress Note ---
Assessment/Plan Problem List: (1) Renal failure (ARF), acute on chronic Assessment: Serum creatinine stabilizing (2) Falls frequently (3) UTI (urinary tract infection) Assessment: and hematuria (4) Anemia (5) Dehydration (6) Encephalopathy due to metabolic factor or toxin Assessment Frequent falls Acute renal failure with underlying dehydration Anemia, underlying etiology unclear UTI (urinary tract infection) Toxic metabolic encephalopathy Plan P.o. intake variable Oral potassium supplement today Check labs tomorrow Discharge planning in process previously: Increase Flomax to twice daily Correct electrolytes as needed Transfusion as needed 2D echocardiogram ejection fraction 60% Kidney ultrasound pending results Monitor renal parameters Avoid nephrotoxics Antibiotics for UTI Continue per consultants Subjective ROS Limited/Unobtainable: No Constitutional: Reports: malaise Objective Objective Last 24 Hour Vital Signs Date Time Temp Pulse Resp B/P (MAP) Pulse Ox O2 Delivery O2 Flow Rate FiO2 08/29/19 12:46 127/55 08/29/19 12:45 72 127/55 08/29/19 12:00 97.0 72 20 127/55 (79) 96 08/29/19 09:00 Room Air 08/29/19 08:48 69 161/69 08/29/19 08:00 97.3 69 18 161/69 (99) 97 08/29/19 07:43 68 08/29/19 05:29 154/59 08/29/19 04:00 97.7 90 19 144/79 (100) 97 08/29/19 04:00 74 08/29/19 00:00 97.4 84 20 152/57 (88) 98 08/29/19 00:00 89 08/28/19 21:00 Room Air 08/28/19 20:00 97.1 91 19 141/66 (91) 97 08/28/19 20:00 87 08/28/19 18:28 193/77 08/28/19 18:00 85 182/79 08/28/19 16:00 100.6 85 18 182/79 (113) 94 08/28/19 13:45 101.0 84 18 193/79 (117) 97 Intake and Output 08/28/19 08/29/19 19:00 07:00 Intake Total 350 ml Output Total 300 ml 375 ml Balance 50 ml -375 ml IV Total 350 ml Output Urine Total 300 ml 375 ml no labs drawn today Height (Feet): 5 Height (Inches): 6.00 Weight (Pounds): 105 General Appearance: no apparent distress, lethargic Cardiovascular: normal rate Respiratory/Chest: decreased breath sounds Abdomen: soft Objective No change Juan Jade MD Aug 29, 2019 13:25
--- NOTE | 2019-08-29 13:49 | NUR ---
*-*INSURANCE*-* UPDATED CLINICALS AND REVIEWS HAVE BEEN FAXED TO: DEE SALGUERO F: [phone] REF# [id number]
[2019-08-29 16:00] VITALS: BP 124/61
--- NOTE | 2019-08-29 19:35 | NUR ---
NURSE NOTES: Observed pt sleeping in bed, breathing even and unlabored on RA. No s/sx of acute distress/pain. Bed in lowest position, call light within reach. Will continue plan of care.
[2019-08-29 20:00] VITALS: BP 123/54
--- NOTE | 2019-08-29 20:27 | NUR ---
HAND-OFF: Report given to LUIS FERNANDO Brady. Pt in stable condition, endorsed plan of care.
[2019-08-29] MEDS: Sennosides 8.6mg tab ORAL SCH (21:00)
[2019-08-30] VITALS: BP 152/54
[2019-08-30 04:33] VITALS: BP 143/72
--- NOTE | 2019-08-30 06:14 | Progress Note ---
DATE: 08/29/2019 SUBJECTIVE: The patient is doing better, calmer, more manageable, in bed. No behavior issues noted. MENTAL STATUS EXAMINATION: The patient is alert and oriented times self and place. Mood is neutral. Affect is flat. Thought process is concrete. Thought content, no suicidal or homicidal ideation. ASSESSMENT: Stable. PLAN: We will continue current medications. Loco Luu M.D. DR: Ingrid JOB#: [id number] CC:
[2019-08-30] MEDS: Nitroglycerin 2% oint pkt TOPIC SCH ×3 (06:29→17:25)
--- NOTE | 2019-08-30 07:32 | NUR ---
HAND-OFF: Report given to Yi Herndon RN.
--- NOTE | 2019-08-30 08:20 | NUR ---
NURSE NOTES: Received patient from Joaquim Nunez. Patient is resting comfortably in bed. NO signs and symptoms of pain or distress. VSS. Fall/Aspuartaion precautions in place. condom cath intact draining denia urine. Call gaona within patients reach will follow.
[2019-08-30 08:24] VITALS: BP 138/59
--- NOTE | 2019-08-30 08:26 | Urology Progress Note ---
Assessment/Plan Status: stable, progressing, not improved Assessment/Plan: 1. Gross hematuria hx, presumably secondary to Doshi trauma, resolved. 2. BPH. 3. Urinary retention. 4. Neurogenic bladder. 5. Pyuria. 6. Proteinuria. 7. Renal insufficiency, which appears to be acute on chronic. 8. Rule out urethral stricture. monitor clinically doshi out, voiding/incontinent cont flomax and proscar s/p abx off anticoagulation, resume? restraints PRN cysto at some point monitor PVR and reinsert doshi PRN renal imaging? Subjective Allergies: Coded Allergies: No Known Allergies (Unverified , 06/05/19) Subjective all noted, confused, doshi out, incontinent, condom cath Objective Last 24 Hour Vital Signs Date Time Temp Pulse Resp B/P (MAP) Pulse Ox O2 Delivery O2 Flow Rate FiO2 08/30/19 08:24 97.8 67 20 138/59 (85) 97 08/30/19 06:29 143/72 08/30/19 04:33 99.3 81 24 143/72 (95) 97 08/30/19 03:41 78 08/30/19 00:00 99.6 79 26 152/54 (86) 96 08/29/19 23:30 73 08/29/19 21:00 Room Air 08/29/19 20:00 99.7 77 16 123/54 (77) 96 08/29/19 20:00 71 08/29/19 18:00 124/61 08/29/19 16:00 99.3 79 18 124/61 (82) 97 08/29/19 15:08 76 08/29/19 12:46 127/55 08/29/19 12:45 72 127/55 08/29/19 12:00 66 08/29/19 12:00 97.0 72 20 127/55 (79) 96 08/29/19 09:00 Room Air 08/29/19 08:48 69 161/69 Intake and Output 08/29/19 08/30/19 19:00 07:00 Intake Total 360 ml Balance 360 ml Intake Oral 360 ml # Voids 3 Microbiology Date/Time Source Procedure Growth Status 08/06/19 04:45 Nasal Nares - Final Complete 08/06/19 04:45 Nasal Nares - Final Complete 08/28/19 12:31 Indwelling Cath Urine Culture - Preliminary Pseudomonas Aeruginosa Gram Negative Bacillus 1 Resulted 08/06/19 04:45 Rectum VRE Culture - Final NO VANCOMYCIN RESISTANT ENTEROCOCCUS ... Complete Current Medications Medications (Trade) Dose Ordered Sig/Kristine Route PRN Reason Start Time Stop Time Status Last Admin Dose Admin Acetaminophen (Tylenol) 500 mg Q6H PRN ORAL MILD/TEMP 08/28/19 18:30 09/05/19 18:29 Amlodipine Besylate (Norvasc) 10 mg DAILY ORAL 08/29/19 11:45 09/28/19 11:44 08/29/19 12:45 Docusate Sodium (Colace) 250 mg DAILY ORAL 08/29/19 09:00 09/05/19 08:59 08/29/19 08:47 Escitalopram Oxalate (Lexapro) 10 mg DAILY ORAL 08/29/19 09:00 09/17/19 08:59 08/29/19 08:48 Finasteride (Proscar) 5 mg DAILY ORAL 08/29/19 09:00 11/05/19 15:44 08/29/19 08:47 Hydralazine HCl (Apresoline) 10 mg Q8H PRN IV For High Blood Pressure 08/28/19 18:15 11/26/19 18:14 08/28/19 18:28 Magnesium Hydroxide (Mom) 30 ml TIDPRN PRN ORAL Constipation 08/29/19 05:45 09/18/19 05:44 Nitroglycerin (Nitro-Bid) 1 inch Q6HR@0600,1200,1800 TOPIC 08/29/19 06:00 09/11/19 06:59 08/30/19 06:29 Pantoprazole (Protonix) 40 mg DAILY ORAL 08/29/19 09:00 09/25/19 08:59 08/29/19 08:48 Risperidone (RisperDAL) 1 mg DAILY ORAL 08/29/19 09:00 10/09/19 15:59 08/29/19 08:49 Risperidone (RisperDAL) 2 mg BEDTIME ORAL 08/28/19 21:00 09/29/19 20:59 08/28/19 21:14 Sennosides (Senokot) 8.6 mg BEDTIME ORAL 08/28/19 21:00 09/05/19 20:59 08/28/19 21:14 Tamsulosin HCl (Flomax) 0.4 mg BID ORAL 08/29/19 09:00 09/05/19 20:59 08/29/19 18:00 Height (Feet): 5 Height (Inches): 6.00 Weight (Pounds): 105 Objective exam stable abdomen soft urine grossly yellow Bamshad,Miki Perry MD Aug 30, 2019 08:26
--- NOTE | 2019-08-30 08:44 | NUR ---
CASE MANAGEMENT:REVIEW 08/30/19 SI:FREQUENT FALLS . METABOLIC VS TOXIC ENCEPHALOPATHY . PULMONARY EDEMA . BILATERAL PLEURAL EFFUSION. AC/CHR RENAL FAILURE. UTI. ANEMIA. GROSS HEMATURIA 99.6 79 26 152/54 96% ON RA IS:PROSCAR PO QD K-DUR PO BID FLOMAX PO BID NITRO-BID [place] PO QHS NORVASC PO QD IV PROTONIX QD RISPERDAL PO QHS/QD NITRO-BID Q6HR HYDRALAZINE PO Q8HR/PRN \: TRANSFER TO [facility] FOR HIGH BLOOD PRESSURE DCP: [facility] WHEN MEDICALLY CLEARED PLAN: CONTROL BP CONTROL FEVERS START ON OXYGEN THERAPY DC IVF AND ENCOURAGE ORAL INTAKE COVID-19 TEST- PENDING
[2019-08-30] MEDS: Tamsulosin 0.4mg cap ORAL SCH ×2 (08:47→17:25)
[2019-08-30] MEDS: Docusate 250mg cap ORAL SCH (08:47)
--- NOTE | 2019-08-30 09:16 | NUR ---
PT Note Patient has been transferred to telemetry. Will need a new order to resume physical therapy.
--- NOTE | 2019-08-30 10:06 | NUR ---
HAND-OFF: Report given to Joaquim Heller. PLan of care endorsed.
--- NOTE | 2019-08-30 10:45 | Progress Note ---
DATE: 08/29/2019 CARDIOLOGY PROGRESS NOTE SUBJECTIVE: The patient has not been able to take oral medications. IV therapy has been given. He remains lethargic, has been recommended for a pureed diet. Medications have been adjusted to be able to be crushed. Monitored rhythm junctional. OBJECTIVE: VITAL SIGNS: Blood pressure 124/61 with heart rate 79 and respiratory rate 18, T-max is 99.7. LUNGS: Bilateral breath sounds. Few rhonchi. CARDIAC: Regular rhythm and rate. Normal S1, S2. A 1/6 systolic murmur at lower left sternal border. ABDOMEN: Soft. EXTREMITIES: No edema. IMPRESSION: 1. Metabolic and toxic encephalopathies. 2. Junctional rhythm. 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 4. No clinical signs of acute congestive heart failure. 5. Hypertensive heart disease with labile blood pressures, now improved. 6. Dysphagia. PLAN: As outlined above. Therapeutic regimen has been adjusted and we will continue to be titrated to optimize hemodynamic parameters. Gamaliel Salas M.D. DR: SONJA JOB#: [id number] CC:
--- NOTE | 2019-08-30 11:31 | Pulmonology Progress Note ---
Assessment/Plan Assessment/Plan IMPRESSION: 1. Pleural effusions, small bilateral. 2. Atelectasis. 3. Pulmonary edema, questionable. 4. Hypertension. 5. Hyperlipidemia. DISCUSSION: The patient is saturating well on room air or low flow O2. I will follow as backer up. No new recommendations Kimani Hahn M.D. Subjective Interval Events: None new Constitutional: Reports: no symptoms HEENT: Repors: no symptoms Respiratory: Reports: no symptoms Cardiovascular: Reports: no symptoms Gastrointestinal/Abdominal: Reports: no symptoms Allergies: Coded Allergies: No Known Allergies (Unverified , 06/05/19) Objective Last 24 Hour Vital Signs Date Time Temp Pulse Resp B/P (MAP) Pulse Ox O2 Delivery O2 Flow Rate FiO2 08/30/19 09:00 Room Air 08/30/19 08:46 67 138/59 08/30/19 08:24 97.8 67 20 138/59 (85) 97 08/30/19 08:00 65 08/30/19 06:29 143/72 08/30/19 04:33 99.3 81 24 143/72 (95) 97 08/30/19 03:41 78 08/30/19 00:00 99.6 79 26 152/54 (86) 96 08/29/19 23:30 73 08/29/19 21:00 Room Air 08/29/19 20:00 99.7 77 16 123/54 (77) 96 08/29/19 20:00 71 08/29/19 18:00 124/61 08/29/19 16:00 99.3 79 18 124/61 (82) 97 08/29/19 15:08 76 08/29/19 12:46 127/55 08/29/19 12:45 72 127/55 08/29/19 12:00 66 08/29/19 12:00 97.0 72 20 127/55 (79) 96 Intake and Output 08/29/19 08/30/19 19:00 07:00 Intake Total 360 ml Balance 360 ml Intake Oral 360 ml # Voids 3 General Appearance: no acute distress HEENT: normocephalic Respiratory/Chest: chest wall non-tender, lungs clear Cardiovascular: normal peripheral pulses Abdomen: normal bowel sounds Microbiology Date/Time Source Procedure Growth Status 08/28/19 12:31 Indwelling Cath Urine Culture - Preliminary Pseudomonas Aeruginosa Gram Negative Bacillus 1 Resulted Current Medications Medications (Trade) Dose Ordered Sig/Kristine Route PRN Reason Start Time Stop Time Status Last Admin Dose Admin Acetaminophen (Tylenol) 500 mg Q6H PRN ORAL MILD/TEMP 08/28/19 18:30 09/05/19 18:29 Amlodipine Besylate (Norvasc) 10 mg DAILY ORAL 08/29/19 11:45 09/28/19 11:44 08/30/19 08:46 Docusate Sodium (Colace) 250 mg DAILY ORAL 08/29/19 09:00 09/05/19 08:59 08/30/19 08:47 Escitalopram Oxalate (Lexapro) 10 mg DAILY ORAL 08/29/19 09:00 09/17/19 08:59 08/30/19 08:46 Finasteride (Proscar) 5 mg DAILY ORAL 08/29/19 09:00 11/05/19 15:44 08/30/19 08:46 Hydralazine HCl (Apresoline) 10 mg Q8H PRN IV For High Blood Pressure 08/28/19 18:15 11/26/19 18:14 08/28/19 18:28 Magnesium Hydroxide (Mom) 30 ml TIDPRN PRN ORAL Constipation 08/29/19 05:45 09/18/19 05:44 Nitroglycerin (Nitro-Bid) 1 inch Q6HR@0600,1200,1800 TOPIC 08/29/19 06:00 09/11/19 06:59 08/30/19 06:29 Pantoprazole (Protonix) 40 mg DAILY ORAL 08/29/19 09:00 09/25/19 08:59 08/30/19 08:46 Risperidone (RisperDAL) 1 mg DAILY ORAL 08/29/19 09:00 10/09/19 15:59 08/30/19 08:47 Risperidone (RisperDAL) 2 mg BEDTIME ORAL 08/28/19 21:00 09/29/19 20:59 08/28/19 21:14 Sennosides (Senokot) 8.6 mg BEDTIME ORAL 08/28/19 21:00 09/05/19 20:59 08/28/19 21:14 Tamsulosin HCl (Flomax) 0.4 mg BID ORAL 08/29/19 09:00 09/05/19 20:59 08/30/19 08:47 Kimani Hahn MD Aug 30, 2019 11:31
[2019-08-30 12:00] VITALS: BP 120/53
--- NOTE | 2019-08-30 12:02 | NUR ---
*-*INSURANCE*-* UPDATED CLINICALS AND REVIEWS HAVE BEEN FAXED TO: DEE SALGUERO F: [phone] REF# [id number]
--- NOTE | 2019-08-30 12:27 | General Progress Note ---
Assessment/Plan Problem List: (1) CHF (congestive heart failure) ICD Codes: I50.9 - Heart failure, unspecified SNOMED: 97294458 (2) Renal failure (ARF), acute on chronic ICD Codes: N17.9 - Acute kidney failure, unspecified; N18.9 - Chronic kidney disease, unspecified SNOMED: 764610860 (3) Encephalopathy due to metabolic factor or toxin SNOMED: 707149079 (4) Gross hematuria ICD Codes: R31.0 - Gross hematuria SNOMED: 611589559 (5) Falls frequently ICD Codes: R29.6 - Repeated falls SNOMED: 614851242 (6) Dehydration ICD Codes: E86.0 - Dehydration SNOMED: 59117250 (7) UTI (urinary tract infection) ICD Codes: N39.0 - Urinary tract infection, site not specified SNOMED: 93241769 (8) Anemia ICD Codes: D64.9 - Anemia, unspecified SNOMED: 605014270 Status: stable, progressing, not improved Assessment/Plan: off restraints. cardiac rx prn anxiolytics- try to avoid due to excessive sedation pt/ot high risk for falls. hold anticoag for now monitor Na. encourage fluids dc planning to snf once bed found at accepting snf Subjective ROS Limited/Unobtainable: No Constitutional: Reports: malaise, weakness HEENT: Reports: no symptoms Cardiovascular: Reports: no symptoms Respiratory: Reports: cough Gastrointestinal/Abdominal: Reports: no symptoms Genitourinary: Reports: no symptoms Neurologic/Psychiatric: Reports: anxiety, emotional problems Endocrine: Reports: no symptoms Hematologic/Lymphatic: Reports: no symptoms Allergies: Coded Allergies: No Known Allergies (Unverified , 06/05/19) All Systems: reviewed and negative except above Subjective no events. stable. bp better controlled. no sob. very confused at baseline. no nausea or vomiting. no falls. Objective Last 24 Hour Vital Signs Date Time Temp Pulse Resp B/P (MAP) Pulse Ox O2 Delivery O2 Flow Rate FiO2 08/30/19 11:47 142/61 08/30/19 09:00 Room Air 08/30/19 08:46 67 138/59 08/30/19 08:24 97.8 67 20 138/59 (85) 97 08/30/19 08:00 65 08/30/19 06:29 143/72 08/30/19 04:33 99.3 81 24 143/72 (95) 97 08/30/19 03:41 78 08/30/19 00:00 99.6 79 26 152/54 (86) 96 08/29/19 23:30 73 08/29/19 21:00 Room Air 08/29/19 20:00 99.7 77 16 123/54 (77) 96 08/29/19 20:00 71 08/29/19 18:00 124/61 08/29/19 16:00 99.3 79 18 124/61 (82) 97 08/29/19 15:08 76 08/29/19 12:46 127/55 08/29/19 12:45 72 127/55 Intake and Output 08/29/19 08/30/19 19:00 07:00 Intake Total 360 ml Balance 360 ml Intake Oral 360 ml # Voids 3 Height (Feet): 5 Height (Inches): 6.00 Weight (Pounds): 105 Objective General Appearance: WD/WN, alert, confused Neck: supple Cardiovascular: regular rhythm Respiratory/Chest: rhonchi - bilaterally Abdomen: normal bowel sounds, non tender, soft, no organomegaly, no mass Edema: no edema noted Arm (L), no edema noted Arm (R), no edema noted Leg (L), no edema noted Leg (R), no edema noted Pedal (L), no edema noted Pedal (R), no edema noted Generalized Neurologic: director peoplesoft II-XII grossly normal, alert, responsive Iggy Echavarria MD Aug 30, 2019 12:27
[2019-08-30 15:32] VITALS: BP 118/58
--- NOTE | 2019-08-30 16:56 | NUR ---
DISCHARGE SWALLOW AND SPEECH THERAPY SUMMARY: PATIENT SEEN FOR DYSPHAGIA, SEE SWALLOW STUDY AND MOD BARIUM SWALLOW STUDY. GOALS MET FOR STAFF (LUIS FERNANDO LIGHT AND KIM SANTOS) EDUCATED/TRAINED IN ASP PRECAUTIONS. PER DANIELLE ALVAREZ, PT NOW COUGHS WITH NECTAR THICK LIQUIDS TSP LEVEL AND HOLD LIQUID IN HIS MOUTH. ST GIVE PT PO TRIALS OF HONEY THICK LIQUIDS TSP AMOUNTS, CHEWED BOLUS UNNECESSARILY FOR 10 SECONDS OR MORE (LIKELY DUE TO ORAL AWARENESS/SENSATION DEFICITS), SWALLOWED WITH FAIR HYOLARYNGEAL EXCURSION, NO ORAL RESIDUE NO OVERT ASPIRATION (10/10 TIMES). PT NEEDED CONSISTENT CUES NOT TO TALK DURING PO INTAKE. HIS SPEECH IS REPETITIVE AND DIFFICULT TO UNDERSTAND. HE ALSO IS CONFUSED AND TALKS WHEN NO ONE IS IN THE ROOM. GOALS NOT MET FOR INTAKE 10-25% ON THE LIQUIFIED PUREED LIKE NECTAR THICK SOUP CONSISTENCY WITH NECTAR THICK LIQUIDS FOR ORAL GRAT AND QUALITY OF LIFE PURPOSES. PER POLST BY PT AND CONFIRMED BY HIS COREMAKING SUPERVISOR FRIEND, THE PATIENT DOES NOT WANT TUBE FEEDINGS. PLAN: WILL D/C FROM SKILLED ST SERVICES AT THIS TIME. CONTINUE WITH PO INTAKE BUT WILL DOWNGRADE TO LIQUIFIED PUREED HONEY THICK SOUP CONSISTENCY (TSP ONLY) WITH HONEY THICK LIQUIDS AND FOLLOWING POSTED ASPIRATION PRECAUTIONS AND ONE TO ONE FEEDING. ENCOURAGE INTAKE OF HIGH CALORIE SUPPLEMENT. CONTINUE WITH ORAL CARE IF PT IS RECEPTIVE. D/W LUIS FERNANDO AND KIM
--- NOTE | 2019-08-30 18:51 | Nephrology Progress Note ---
Assessment/Plan Problem List: (1) Renal failure (ARF), acute on chronic Assessment: Serum creatinine stabilizing (2) Falls frequently (3) UTI (urinary tract infection) Assessment: and hematuria (4) Anemia (5) Dehydration (6) Encephalopathy due to metabolic factor or toxin Assessment Frequent falls Acute renal failure with underlying dehydration Anemia, underlying etiology unclear UTI (urinary tract infection) Toxic metabolic encephalopathy Plan No labs drawn today P.o. intake variable Oral potassium supplement as needed Check labs tomorrow Discharge planning in process previously: Increase Flomax to twice daily Correct electrolytes as needed Transfusion as needed 2D echocardiogram ejection fraction 60% Kidney ultrasound pending results Monitor renal parameters Avoid nephrotoxics Antibiotics for UTI Continue per consultants Subjective ROS Limited/Unobtainable: No Constitutional: Reports: malaise, weakness Objective Objective Last 24 Hour Vital Signs Date Time Temp Pulse Resp B/P (MAP) Pulse Ox O2 Delivery O2 Flow Rate FiO2 08/30/19 17:25 118/58 08/30/19 16:00 57 08/30/19 15:32 97.9 68 20 118/58 (78) 97 08/30/19 12:00 68 08/30/19 12:00 97.9 71 20 120/53 (75) 97 08/30/19 11:47 142/61 08/30/19 09:00 Room Air 08/30/19 08:46 67 138/59 08/30/19 08:24 97.8 67 20 138/59 (85) 97 08/30/19 08:00 65 08/30/19 06:29 143/72 08/30/19 04:33 99.3 81 24 143/72 (95) 97 08/30/19 03:41 78 08/30/19 00:00 99.6 79 26 152/54 (86) 96 08/29/19 23:30 73 08/29/19 21:00 Room Air 08/29/19 20:00 99.7 77 16 123/54 (77) 96 08/29/19 20:00 71 Intake and Output 08/29/19 08/30/19 19:00 07:00 Intake Total 360 ml Balance 360 ml Intake Oral 360 ml # Voids 3 Current Medications Medications (Trade) Dose Ordered Sig/Kristine Route PRN Reason Start Time Stop Time Status Last Admin Dose Admin Acetaminophen (Tylenol) 500 mg Q6H PRN ORAL MILD/TEMP 08/28/19 18:30 09/05/19 18:29 Amlodipine Besylate (Norvasc) 10 mg DAILY ORAL 08/29/19 11:45 09/28/19 11:44 08/30/19 08:46 Docusate Sodium (Colace) 250 mg DAILY ORAL 08/29/19 09:00 09/05/19 08:59 08/30/19 08:47 Escitalopram Oxalate (Lexapro) 10 mg DAILY ORAL 08/29/19 09:00 09/17/19 08:59 08/30/19 08:46 Finasteride (Proscar) 5 mg DAILY ORAL 08/29/19 09:00 11/05/19 15:44 08/30/19 08:46 Hydralazine HCl (Apresoline) 10 mg Q8H PRN IV For High Blood Pressure 08/28/19 18:15 11/26/19 18:14 08/28/19 18:28 Magnesium Hydroxide (Mom) 30 ml TIDPRN PRN ORAL Constipation 08/29/19 05:45 09/18/19 05:44 Nitroglycerin (Nitro-Bid) 1 inch Q6HR@0600,1200,1800 TOPIC 08/29/19 06:00 09/11/19 06:59 08/30/19 17:25 Pantoprazole (Protonix) 40 mg DAILY ORAL 08/29/19 09:00 09/25/19 08:59 08/30/19 08:46 Risperidone (RisperDAL) 1 mg DAILY ORAL 08/29/19 09:00 10/09/19 15:59 08/30/19 08:47 Risperidone (RisperDAL) 2 mg BEDTIME ORAL 08/28/19 21:00 09/29/19 20:59 08/28/19 21:14 Sennosides (Senokot) 8.6 mg BEDTIME ORAL 08/28/19 21:00 09/05/19 20:59 08/28/19 21:14 Tamsulosin HCl (Flomax) 0.4 mg BID ORAL 08/29/19 09:00 09/05/19 20:59 08/30/19 17:25 Height (Feet): 5 Height (Inches): 6.00 Weight (Pounds): 105 General Appearance: no apparent distress, lethargic Objective No change Juan Jade MD Aug 30, 2019 18:51
[2019-08-30 20:00] VITALS: BP 149/69
--- NOTE | 2019-08-30 20:07 | NUR ---
HAND-OFF: Report given to LUIS FERNANDO Bess.
[2019-08-31] VITALS (7 sets, daily range): BP systolic 120–151; BP diastolic 54–69
[2019-08-31] MEDS: Sennosides 8.6mg tab ORAL SCH ×2 (00:26→21:44)
[2019-08-31] MEDS ORDERED: Cefepime HCl 1 GM in D5W 55 ML IVPB SCH (03:00)
[2019-08-31] MEDS: Nitroglycerin 2% oint pkt TOPIC SCH ×3 (06:00→18:04)
[2019-08-31 06:17] LABS: BASOPHILS % (AUTO) 0.4 % (0.0-2.0); EOSINOPHILS % (AUTO) 1.2 % (0.0-3.0); HEMATOCRIT 26.4 % (42.0-52.0); HEMOGLOBIN 9.2 G/DL (14.2-18.0); LYMPHOCYTES % (AUTO) 14.7 % (20.0-45.0); MEAN CORPUSCULAR VOLUME 86 FL (80-99); MONOCYTES % (AUTO) 9.2 % (1.0-10.0); NEUTROPHILS % (AUTO) 74.6 % (45.0-75.0); PLATELET COUNT 170 K/UL (150-450); RED BLOOD COUNT 3.07 M/UL (4.70-6.10); RED CELL DISTRIBUTION WIDTH 13.4 % (11.6-14.8); WHITE BLOOD COUNT 4.2 K/UL (4.8-10.8)
[2019-08-31 07:00] LABS: ALANINE AMINOTRANSFERASE 30 U/L (12-78); ALBUMIN 2.2 G/DL (3.4-5.0); ALBUMIN/GLOBULIN RATIO 0.6 (1.0-2.7); ALKALINE PHOSPHATASE 112 U/L (46-116); ANION GAP 13 mmol/L (5-15); ASPARTATE AMINO TRANSFERASE 36 U/L (15-37); BILIRUBIN,TOTAL 0.4 MG/DL (0.2-1.0); BLOOD UREA NITROGEN 37 mg/dL (7-18); CALCIUM 9.8 MG/DL (8.5-10.1); CARBON DIOXIDE 22 MMOL/L (21-32); CHLORIDE 111 MMOL/L (98-107); CREATININE 1.8 MG/DL (0.55-1.30); PHOSPHORUS 2.4 MG/DL (2.5-4.9); POTASSIUM 3.6 MMOL/L (3.5-5.1); SODIUM 146 MMOL/L (136-145)
--- NOTE | 2019-08-31 07:00 | Progress Note ---
DATE: 08/30/2019 CARDIOLOGY PROGRESS NOTE SUBJECTIVE: The patient has no distress, confusion is intermittent. Blood pressure parameters significantly improved. Heart rate in the 60 and 70 range. No significant bradycardia or pauses noted for over two weeks of hospitalization and monitoring earlier in the hospital today. OBJECTIVE: LUNGS: Bilateral breath sounds. No wheezes. HEART: Regular rhythm and rate. Normal S1, S2. ABDOMEN: Soft. EXTREMITIES: No edema. LABORATORY DATA: Labs pending. Urine is positive for Pseudomonas. IMPRESSION: 1. Encephalopathy. 2. Pseudomonas urinary tract infection. 3. Hypertensive heart disease. 4. Chronic diastolic congestive heart failure. 5. Pulmonary hypertension. 6. Valvular cardiomyopathy. 7. Junctional cardiac rhythm of no hemodynamic consequences . PLAN: 1. Maintain current cardiovascular regimen. 2. IV antimicrobials added for urinary infection. Gamaliel Salas M.D. DR: Lexii JOB#: [id number] CC:
--- NOTE | 2019-08-31 07:28 | NUR ---
NURSE NOTES: Received patient from LUIS FERNANDO Rodgers. Patient is resting comfortably in bed. No signs and symptoms of pain or distress noted. Fall/Aspiration precautions in place. condom cath intact draining denia urine. Call light is within reach. Will continue with the plan of care.
[2019-08-31] MEDS: Tamsulosin 0.4mg cap ORAL SCH ×2 (08:04→18:04)
[2019-08-31] MEDS: Docusate 250mg cap ORAL SCH (08:05)
--- NOTE | 2019-08-31 09:21 | NUR ---
CASE MANAGEMENT:REVIEW 08/31/19 SI:FREQUENT FALLS . METABOLIC VS TOXIC ENCEPHALOPATHY . BILATERAL PLEURAL EFFUSION. PULMONARY EDEMA . AC/CHR RENAL FAILURE. UTI. ANEMIA. GROSS HEMATURIA 97.3 57 20 120/54 98% ON RA H/H 9.2/26.4 WBC 4.2 NA+146 CL-111 BUN 37 CREAT 1.8 PHOS 2.4 C REC PROT 7.7 BNP 4283 ALB 2.2 IS:CEFEPIME Q24HR PROSCAR PO QD K-DUR PO BID FLOMAX PO BID NITRO-BID [place] PO QHS NORVASC PO QD IV PROTONIX QD RISPERDAL PO QHS/QD NITRO-BID Q6HR HYDRALAZINE PO Q8HR/PRN \:2E TELE UNIT DCP: [facility] PLAN: COVID-19 TEST- PENDING START ON IV ABX WBC DECREASE SLIGHT IMPROVEMENT IN URINE CULTURE SPEECH THERAPY/SWALLOWING TRAINING COMPLETE START ON REG DIET
--- NOTE | 2019-08-31 09:25 | Urology Progress Note ---
Assessment/Plan Status: stable, progressing, not improved Assessment/Plan: 1. Gross hematuria hx, presumably secondary to Doshi trauma, resolved. 2. BPH. 3. Urinary retention. 4. Neurogenic bladder. 5. Pyuria. 6. Proteinuria. 7. Renal insufficiency, which appears to be acute on chronic. 8. Rule out urethral stricture. monitor clinically doshi out, voiding/incontinent cont flomax and proscar on abx off anticoagulation, resume? restraints PRN cysto at some point monitor PVR and reinsert doshi PRN renal imaging? Subjective Allergies: Coded Allergies: No Known Allergies (Unverified , 06/05/19) Subjective all noted, confused, doshi out, incontinent, condom cath Objective Last 24 Hour Vital Signs Date Time Temp Pulse Resp B/P (MAP) Pulse Ox O2 Delivery O2 Flow Rate FiO2 08/31/19 08:06 57 120/54 08/31/19 08:00 97.3 57 20 120/54 (76) 98 08/31/19 08:00 57 08/31/19 07:13 97.3 62 21 149/69 (95) 100 08/31/19 06:00 122/54 08/31/19 04:00 97.9 58 19 122/54 (76) 100 08/31/19 04:00 59 08/31/19 00:00 67 08/31/19 00:00 98.2 62 24 151/62 (91) 100 08/30/19 21:00 Room Air 08/30/19 20:00 97.3 62 21 149/69 (95) 100 08/30/19 20:00 65 08/30/19 17:25 118/58 08/30/19 16:00 57 08/30/19 15:32 97.9 68 20 118/58 (78) 97 08/30/19 12:00 68 08/30/19 12:00 97.9 71 20 120/53 (75) 97 08/30/19 11:47 142/61 Intake and Output 08/30/19 08/31/19 19:00 07:00 Intake Total 680 ml 520 ml Output Total 1150 ml 650 ml Balance -470 ml -130 ml Intake Oral 680 ml 320 ml Other 200 ml Output Urine Total 1150 ml 650 ml # Voids 1 1 # Bowel Movements 1 1 Microbiology Date/Time Source Procedure Growth Status 08/06/19 04:45 Nasal Nares - Final Complete 08/06/19 04:45 Nasal Nares - Final Complete 08/28/19 12:31 Indwelling Cath Urine Culture - Final Pseudomonas Aeruginosa Raoultella Planticola Complete 08/06/19 04:45 Rectum VRE Culture - Final NO VANCOMYCIN RESISTANT ENTEROCOCCUS ... Complete Current Medications Medications (Trade) Dose Ordered Sig/Kristine Route PRN Reason Start Time Stop Time Status Last Admin Dose Admin Acetaminophen (Tylenol) 500 mg Q6H PRN ORAL MILD/TEMP 08/28/19 18:30 09/05/19 18:29 Amlodipine Besylate (Norvasc) 10 mg DAILY ORAL 08/29/19 11:45 09/28/19 11:44 08/31/19 08:06 Cefepime HCl 1 gm/ Dextrose 55 ml @ 110 mls/hr Q24H IVPB 08/31/19 03:00 09/07/19 02:59 08/31/19 03:00 Docusate Sodium (Colace) 250 mg DAILY ORAL 08/29/19 09:00 09/05/19 08:59 08/31/19 08:05 Escitalopram Oxalate (Lexapro) 10 mg DAILY ORAL 08/29/19 09:00 09/17/19 08:59 08/31/19 08:05 Finasteride (Proscar) 5 mg DAILY ORAL 08/29/19 09:00 11/05/19 15:44 08/31/19 08:04 Hydralazine HCl (Apresoline) 10 mg Q8H PRN IV For High Blood Pressure 08/28/19 18:15 11/26/19 18:14 08/28/19 18:28 Magnesium Hydroxide (Mom) 30 ml TIDPRN PRN ORAL Constipation 08/29/19 05:45 09/18/19 05:44 Nitroglycerin (Nitro-Bid) 1 inch Q6HR@0600,1200,1800 TOPIC 08/29/19 06:00 09/11/19 06:59 08/31/19 06:00 Pantoprazole (Protonix) 40 mg DAILY ORAL 08/29/19 09:00 09/25/19 08:59 08/31/19 08:05 Risperidone (RisperDAL) 1 mg DAILY ORAL 08/29/19 09:00 10/09/19 15:59 08/31/19 08:05 Risperidone (RisperDAL) 2 mg BEDTIME ORAL 08/28/19 21:00 09/29/19 20:59 08/31/19 00:26 Sennosides (Senokot) 8.6 mg BEDTIME ORAL 08/28/19 21:00 09/05/19 20:59 08/31/19 00:26 Tamsulosin HCl (Flomax) 0.4 mg BID ORAL 08/29/19 09:00 09/05/19 20:59 08/31/19 08:04 Laboratory Tests 08/31/19 05:20: White Blood Count 4.2L, Red Blood Count 3.07L, Hemoglobin 9.2L, Hematocrit 26.4L , Mean Corpuscular Volume 86, Mean Corpuscular Hemoglobin 30.0, Mean Corpuscular Hemoglobin Concent 34.8, Red Cell Distribution Width 13.4, Platelet Count 170, Mean Platelet Volume 6.2L, Neutrophils (%) (Auto) 74.6, Lymphocytes ( %) (Auto) 14.7L, Monocytes (%) (Auto) 9.2, Eosinophils (%) (Auto) 1.2, Basophils (%) (Auto) 0.4, Sodium Level 146H, Potassium Level 3.6, Chloride Level 111H, Carbon Dioxide Level 22, Anion Gap 13, Blood Urea Nitrogen 37H, Creatinine 1.8H, Estimat Glomerular Filtration Rate 36.1, Glucose Level 104, Uric Acid 6.9, Calcium Level 9.8, Phosphorus Level 2.4L, Magnesium Level 2.3, Total Bilirubin 0.4, Aspartate Amino Transf (AST/SGOT) 36, Alanine Aminotransferase (ALT/SGPT) 30, Alkaline Phosphatase 112, C-Reactive Protein, Quantitative 7.7H, Pro-B-Type Natriuretic Peptide 4283H, Total Protein 5.6L, Albumin 2.2L, Globulin 3.4, Albumin/Globulin Ratio 0.6L Height (Feet): 5 Height (Inches): 6.00 Weight (Pounds): 107 Objective exam stable abdomen soft urine grossly yellow Bamshad,Miki Perry MD Aug 31, 2019 09:25
--- NOTE | 2019-08-31 11:11 | NUR ---
*-*INSURANCE*-* UPDATED CLINICALS AND REVIEWS FROM THE [facility] HAVE BEEN RE-FAXED TO: [facility] F: [phone] REF# [id number]
--- NOTE | 2019-08-31 11:14 | Pulmonology Progress Note ---
Assessment/Plan Assessment/Plan IMPRESSION: 1. Pleural effusions, small bilateral. 2. Atelectasis. 3. Pulmonary edema, questionable. 4. Hypertension. 5. Hyperlipidemia. DISCUSSION: The patient is saturating well on room air or low flow O2. I will follow as measuring machine tender. No new recommendations Kimani Hahn M.D. Subjective Interval Events: None new Constitutional: Reports: no symptoms HEENT: Repors: no symptoms Respiratory: Reports: no symptoms Cardiovascular: Reports: no symptoms Gastrointestinal/Abdominal: Reports: no symptoms Allergies: Coded Allergies: No Known Allergies (Unverified , 06/05/19) Objective Last 24 Hour Vital Signs Date Time Temp Pulse Resp B/P (MAP) Pulse Ox O2 Delivery O2 Flow Rate FiO2 08/31/19 09:00 Room Air 08/31/19 08:06 57 120/54 08/31/19 08:00 97.3 57 20 120/54 (76) 98 08/31/19 08:00 57 08/31/19 07:13 97.3 62 21 149/69 (95) 100 08/31/19 06:00 122/54 08/31/19 04:00 97.9 58 19 122/54 (76) 100 08/31/19 04:00 59 08/31/19 00:00 67 08/31/19 00:00 98.2 62 24 151/62 (91) 100 08/30/19 21:00 Room Air 08/30/19 20:00 97.3 62 21 149/69 (95) 100 08/30/19 20:00 65 08/30/19 17:25 118/58 08/30/19 16:00 57 08/30/19 15:32 97.9 68 20 118/58 (78) 97 08/30/19 12:00 68 08/30/19 12:00 97.9 71 20 120/53 (75) 97 08/30/19 11:47 142/61 Intake and Output 08/30/19 08/31/19 19:00 07:00 Intake Total 680 ml 520 ml Output Total 1150 ml 650 ml Balance -470 ml -130 ml Intake Oral 680 ml 320 ml Other 200 ml Output Urine Total 1150 ml 650 ml # Voids 1 1 # Bowel Movements 1 1 General Appearance: no acute distress HEENT: normocephalic Respiratory/Chest: chest wall non-tender Cardiovascular: normal peripheral pulses Abdomen: normal bowel sounds Microbiology Date/Time Source Procedure Growth Status 08/28/19 12:31 Indwelling Cath Urine Culture - Final Pseudomonas Aeruginosa Raoultella Planticola Complete Laboratory Tests 08/31/19 05:20: White Blood Count 4.2L, Red Blood Count 3.07L, Hemoglobin 9.2L, Hematocrit 26.4L , Mean Corpuscular Volume 86, Mean Corpuscular Hemoglobin 30.0, Mean Corpuscular Hemoglobin Concent 34.8, Red Cell Distribution Width 13.4, Platelet Count 170, Mean Platelet Volume 6.2L, Neutrophils (%) (Auto) 74.6, Lymphocytes ( %) (Auto) 14.7L, Monocytes (%) (Auto) 9.2, Eosinophils (%) (Auto) 1.2, Basophils (%) (Auto) 0.4, Sodium Level 146H, Potassium Level 3.6, Chloride Level 111H, Carbon Dioxide Level 22, Anion Gap 13, Blood Urea Nitrogen 37H, Creatinine 1.8H, Estimat Glomerular Filtration Rate 36.1, Glucose Level 104, Uric Acid 6.9, Calcium Level 9.8, Phosphorus Level 2.4L, Magnesium Level 2.3, Total Bilirubin 0.4, Aspartate Amino Transf (AST/SGOT) 36, Alanine Aminotransferase (ALT/SGPT) 30, Alkaline Phosphatase 112, C-Reactive Protein, Quantitative 7.7H, Pro-B-Type Natriuretic Peptide 4283H, Total Protein 5.6L, Albumin 2.2L, Globulin 3.4, Albumin/Globulin Ratio 0.6L Current Medications Medications (Trade) Dose Ordered Sig/Kristine Route PRN Reason Start Time Stop Time Status Last Admin Dose Admin Acetaminophen (Tylenol) 500 mg Q6H PRN ORAL MILD/TEMP 08/28/19 18:30 09/05/19 18:29 Amlodipine Besylate (Norvasc) 10 mg DAILY ORAL 08/29/19 11:45 09/28/19 11:44 08/31/19 08:06 Cefepime HCl 1 gm/ Dextrose 55 ml @ 110 mls/hr Q24H IVPB 08/31/19 03:00 09/07/19 02:59 08/31/19 03:00 Docusate Sodium (Colace) 250 mg DAILY ORAL 08/29/19 09:00 09/05/19 08:59 08/31/19 08:05 Escitalopram Oxalate (Lexapro) 10 mg DAILY ORAL 08/29/19 09:00 09/17/19 08:59 08/31/19 08:05 Finasteride (Proscar) 5 mg DAILY ORAL 08/29/19 09:00 11/05/19 15:44 08/31/19 08:04 Hydralazine HCl (Apresoline) 10 mg Q8H PRN IV For High Blood Pressure 08/28/19 18:15 11/26/19 18:14 08/28/19 18:28 Magnesium Hydroxide (Mom) 30 ml TIDPRN PRN ORAL Constipation 08/29/19 05:45 09/18/19 05:44 Nitroglycerin (Nitro-Bid) 1 inch Q6HR@0600,1200,1800 TOPIC 08/29/19 06:00 09/11/19 06:59 08/31/19 06:00 Pantoprazole (Protonix) 40 mg DAILY ORAL 08/29/19 09:00 09/25/19 08:59 08/31/19 08:05 Risperidone (RisperDAL) 1 mg DAILY ORAL 08/29/19 09:00 10/09/19 15:59 08/31/19 08:05 Risperidone (RisperDAL) 2 mg BEDTIME ORAL 08/28/19 21:00 09/29/19 20:59 08/31/19 00:26 Sennosides (Senokot) 8.6 mg BEDTIME ORAL 08/28/19 21:00 09/05/19 20:59 08/31/19 00:26 Tamsulosin HCl (Flomax) 0.4 mg BID ORAL 08/29/19 09:00 09/05/19 20:59 08/31/19 08:04 Kimani Hahn MD Aug 31, 2019 11:14
--- NOTE | 2019-08-31 11:53 | Nephrology Progress Note ---
Assessment/Plan Problem List: (1) Renal failure (ARF), acute on chronic Assessment: Serum creatinine stabilizing (2) Falls frequently (3) UTI (urinary tract infection) Assessment: and hematuria (4) Anemia (5) Dehydration (6) Encephalopathy due to metabolic factor or toxin Assessment Frequent falls Acute renal failure with underlying dehydration Anemia, underlying etiology unclear UTI (urinary tract infection) Toxic metabolic encephalopathy Plan P.o. intake variable Oral potassium supplement as needed Discharge planning in process previously: Increase Flomax to twice daily Correct electrolytes as needed Transfusion as needed 2D echocardiogram ejection fraction 60% Kidney ultrasound pending results Monitor renal parameters Avoid nephrotoxics Antibiotics for UTI Continue per consultants Subjective ROS Limited/Unobtainable: No Constitutional: Reports: malaise, weakness Objective Objective Last 24 Hour Vital Signs Date Time Temp Pulse Resp B/P (MAP) Pulse Ox O2 Delivery O2 Flow Rate FiO2 08/31/19 09:00 Room Air 08/31/19 08:06 57 120/54 08/31/19 08:00 97.3 57 20 120/54 (76) 98 08/31/19 08:00 57 08/31/19 07:13 97.3 62 21 149/69 (95) 100 08/31/19 06:00 122/54 08/31/19 04:00 97.9 58 19 122/54 (76) 100 08/31/19 04:00 59 08/31/19 00:00 67 08/31/19 00:00 98.2 62 24 151/62 (91) 100 08/30/19 21:00 Room Air 08/30/19 20:00 97.3 62 21 149/69 (95) 100 08/30/19 20:00 65 08/30/19 17:25 118/58 08/30/19 16:00 57 08/30/19 15:32 97.9 68 20 118/58 (78) 97 08/30/19 12:00 68 08/30/19 12:00 97.9 71 20 120/53 (75) 97 Intake and Output 08/30/19 08/31/19 19:00 07:00 Intake Total 680 ml 520 ml Output Total 1150 ml 650 ml Balance -470 ml -130 ml Intake Oral 680 ml 320 ml Other 200 ml Output Urine Total 1150 ml 650 ml # Voids 1 1 # Bowel Movements 1 1 Laboratory Tests 08/31/19 05:20: White Blood Count 4.2L, Red Blood Count 3.07L, Hemoglobin 9.2L, Hematocrit 26.4L , Mean Corpuscular Volume 86, Mean Corpuscular Hemoglobin 30.0, Mean Corpuscular Hemoglobin Concent 34.8, Red Cell Distribution Width 13.4, Platelet Count 170, Mean Platelet Volume 6.2L, Neutrophils (%) (Auto) 74.6, Lymphocytes ( %) (Auto) 14.7L, Monocytes (%) (Auto) 9.2, Eosinophils (%) (Auto) 1.2, Basophils (%) (Auto) 0.4, Sodium Level 146H, Potassium Level 3.6, Chloride Level 111H, Carbon Dioxide Level 22, Anion Gap 13, Blood Urea Nitrogen 37H, Creatinine 1.8H, Estimat Glomerular Filtration Rate 36.1, Glucose Level 104, Uric Acid 6.9, Calcium Level 9.8, Phosphorus Level 2.4L, Magnesium Level 2.3, Total Bilirubin 0.4, Aspartate Amino Transf (AST/SGOT) 36, Alanine Aminotransferase (ALT/SGPT) 30, Alkaline Phosphatase 112, C-Reactive Protein, Quantitative 7.7H, Pro-B-Type Natriuretic Peptide 4283H, Total Protein 5.6L, Albumin 2.2L, Globulin 3.4, Albumin/Globulin Ratio 0.6L Height (Feet): 5 Height (Inches): 6.00 Weight (Pounds): 107 General Appearance: no apparent distress, lethargic Cardiovascular: bradycardia Respiratory/Chest: decreased breath sounds Abdomen: soft Objective No change Juan Jade MD Aug 31, 2019 11:53
[2019-08-31] MEDS ORDERED: Phospha 250 Neutral tab ORAL SCH (12:30)
--- NOTE | 2019-08-31 13:06 | General Progress Note ---
Assessment/Plan Problem List: (1) CHF (congestive heart failure) ICD Codes: I50.9 - Heart failure, unspecified SNOMED: 31530050 (2) Renal failure (ARF), acute on chronic ICD Codes: N17.9 - Acute kidney failure, unspecified; N18.9 - Chronic kidney disease, unspecified SNOMED: 309657918 (3) Encephalopathy due to metabolic factor or toxin SNOMED: 813485719 (4) Gross hematuria ICD Codes: R31.0 - Gross hematuria SNOMED: 105651746 (5) Falls frequently ICD Codes: R29.6 - Repeated falls SNOMED: 265841369 (6) Dehydration ICD Codes: E86.0 - Dehydration SNOMED: 36255831 (7) UTI (urinary tract infection) ICD Codes: N39.0 - Urinary tract infection, site not specified SNOMED: 30157478 (8) Anemia ICD Codes: D64.9 - Anemia, unspecified SNOMED: 301041719 Status: stable, progressing, not improved Assessment/Plan: Antibiotics adjusted. Levaquin added. Fluids. Repeat BMP tomorrow. Monitor sodium level. Anxiolytics as needed. Continue blood pressure treatment. Avoid aggressive blood pressure control due to fall risk. DVT and stress ulcer prophylaxis. Discharge planning to nursing home facility. Subjective ROS Limited/Unobtainable: Yes Constitutional: Reports: malaise, weakness HEENT: Reports: no symptoms Cardiovascular: Reports: no symptoms Respiratory: Reports: cough, shortness of breath Gastrointestinal/Abdominal: Reports: no symptoms Genitourinary: Reports: no symptoms Neurologic/Psychiatric: Reports: pre-existing deficit Endocrine: Reports: no symptoms Hematologic/Lymphatic: Reports: no symptoms Allergies: Coded Allergies: No Known Allergies (Unverified , 06/05/19) All Systems: reviewed and negative except above Subjective There have been no overnight events. Patient remains confused but is mostly cooperative with care. Urine cultures none. Labs reviewed. Sodium level trending up. P.o. intake remains labile. No falls noted. Blood pressure is much better controlled. Objective Last 24 Hour Vital Signs Date Time Temp Pulse Resp B/P (MAP) Pulse Ox O2 Delivery O2 Flow Rate FiO2 08/31/19 09:00 Room Air 08/31/19 08:06 57 120/54 08/31/19 08:00 97.3 57 20 120/54 (76) 98 08/31/19 08:00 57 08/31/19 07:13 97.3 62 21 149/69 (95) 100 08/31/19 06:00 122/54 08/31/19 04:00 97.9 58 19 122/54 (76) 100 08/31/19 04:00 59 08/31/19 00:00 67 08/31/19 00:00 98.2 62 24 151/62 (91) 100 08/30/19 21:00 Room Air 08/30/19 20:00 97.3 62 21 149/69 (95) 100 08/30/19 20:00 65 08/30/19 17:25 118/58 08/30/19 16:00 57 08/30/19 15:32 97.9 68 20 118/58 (78) 97 Intake and Output 08/30/19 08/31/19 19:00 07:00 Intake Total 680 ml 520 ml Output Total 1150 ml 650 ml Balance -470 ml -130 ml Intake Oral 680 ml 320 ml Other 200 ml Output Urine Total 1150 ml 650 ml # Voids 1 1 # Bowel Movements 1 1 Laboratory Tests 08/31/19 05:20: White Blood Count 4.2L, Red Blood Count 3.07L, Hemoglobin 9.2L, Hematocrit 26.4L , Mean Corpuscular Volume 86, Mean Corpuscular Hemoglobin 30.0, Mean Corpuscular Hemoglobin Concent 34.8, Red Cell Distribution Width 13.4, Platelet Count 170, Mean Platelet Volume 6.2L, Neutrophils (%) (Auto) 74.6, Lymphocytes ( %) (Auto) 14.7L, Monocytes (%) (Auto) 9.2, Eosinophils (%) (Auto) 1.2, Basophils (%) (Auto) 0.4, Sodium Level 146H, Potassium Level 3.6, Chloride Level 111H, Carbon Dioxide Level 22, Anion Gap 13, Blood Urea Nitrogen 37H, Creatinine 1.8H, Estimat Glomerular Filtration Rate 36.1, Glucose Level 104, Uric Acid 6.9, Calcium Level 9.8, Phosphorus Level 2.4L, Magnesium Level 2.3, Total Bilirubin 0.4, Aspartate Amino Transf (AST/SGOT) 36, Alanine Aminotransferase (ALT/SGPT) 30, Alkaline Phosphatase 112, C-Reactive Protein, Quantitative 7.7H, Pro-B-Type Natriuretic Peptide 4283H, Total Protein 5.6L, Albumin 2.2L, Globulin 3.4, Albumin/Globulin Ratio 0.6L Height (Feet): 5 Height (Inches): 6.00 Weight (Pounds): 107 Objective General Appearance: WD/WN, alert, confused Neck: supple Cardiovascular: regular rhythm Respiratory/Chest: rhonchi - bilaterally Abdomen: normal bowel sounds, non tender, soft, no organomegaly, no mass Edema: no edema noted Arm (L), no edema noted Arm (R), no edema noted Leg (L), no edema noted Leg (R), no edema noted Pedal (L), no edema noted Pedal (R), no edema noted Generalized Neurologic: quick service technician II-XII grossly normal, alert, responsive Iggy Echavarria MD Aug 31, 2019 13:06
[2019-08-31] MEDS ORDERED: Levofloxacin 500mg tab ORAL SCH (13:15)
--- NOTE | 2019-08-31 15:09 | NUR ---
P.T Weekly Progress Notes: S: Pt denied c/o pain O: Order to resume P.T received. Pt seen seen bedside. Pt is alert , confused however was able to state his name, place but not current time. Pt able to follow simple commands appropriately. Pt currently require MOD A X 1 on Bed Mobilities, Pt able to initiate sit to/from stand transition however not able to fully stand despite MAX A. Pt able to sit unassisted provided that BUE support are holding onto the bed rails. A: Pt is limited by generalized weakness and poor activity tolerance affecting overall functional mobility performance. P: Pt will continue to benefit from skilled P.T services to increase his strength, activity tolerance and balance to increase mobility independence and safety. Recommend SNF for further rehab intervention.
--- NOTE | 2019-08-31 15:28 | Diagnostic Imaging Report ---
Indication: Shortness of breath Technique: XRAY Chest 1v Comparison: 08/28/2019 Findings: Heart size and mediastinal contours are stable. Again there is evidence of prior surgery with median sternotomy. Atherosclerotic calcifications again noted in the aorta. Perihilar airspace opacities are again noted, slightly increased in the medial left base compared to prior. No significant pleural effusion. No pneumothorax. Osseous structures stable. Impression: Persistent perihilar opacities, slightly increased in the medial left base compared to prior exam.
--- NOTE | 2019-08-31 19:28 | NUR ---
HAND-OFF: Report given to LUIS FERNANDO Rodgers. Patient is in stable condition.
--- NOTE | 2019-08-31 19:30 | NUR ---
Report received from Janette Nurse. CXR done, results pending. LenoreT worked with pt today. Cont. to turn Q 2h
--- NOTE | 2019-08-31 22:24 | NUR ---
Lab test positive for Covid 19. Implementing Covid 19 protocols per hospital policy.
--- NOTE | 2019-08-31 23:15 | NUR ---
Message left with Dr. Echavarria concerning positive Covid results. Standing by for possible orders.
--- NOTE | 2019-08-31 23:28 | Psych Consult Progress Note ---
Psychiatry Progress Note Psychiatry Progress Note Subjective the pt is more manageable and has had no agitation. confused. Medications Current Medications Medications (Trade) Dose Ordered Sig/Kristine Route PRN Reason Start Time Stop Time Status Last Admin Dose Admin Acetaminophen (Tylenol) 500 mg Q6H PRN ORAL MILD/TEMP 08/28/19 18:30 09/05/19 18:29 Amlodipine Besylate (Norvasc) 10 mg DAILY ORAL 08/29/19 11:45 09/28/19 11:44 08/31/19 08:06 Docusate Sodium (Colace) 250 mg DAILY ORAL 08/29/19 09:00 09/05/19 08:59 08/31/19 08:05 Escitalopram Oxalate (Lexapro) 10 mg DAILY ORAL 08/29/19 09:00 09/17/19 08:59 08/31/19 08:05 Finasteride (Proscar) 5 mg DAILY ORAL 08/29/19 09:00 11/05/19 15:44 08/31/19 08:04 Hydralazine HCl (Apresoline) 10 mg Q8H PRN IV For High Blood Pressure 08/28/19 18:15 11/26/19 18:14 08/28/19 18:28 Levofloxacin (Levaquin) 250 mg DAILY ORAL 09/01/19 09:00 09/08/19 08:59 Magnesium Hydroxide (Mom) 30 ml TIDPRN PRN ORAL Constipation 08/29/19 05:45 09/18/19 05:44 Nitroglycerin (Nitro-Bid) 1 inch Q6HR@0600,1200,1800 TOPIC 08/29/19 06:00 09/11/19 06:59 08/31/19 18:04 Pantoprazole (Protonix) 40 mg DAILY ORAL 08/29/19 09:00 09/25/19 08:59 08/31/19 08:05 Risperidone (RisperDAL) 1 mg DAILY ORAL 08/29/19 09:00 10/09/19 15:59 08/31/19 08:05 Risperidone (RisperDAL) 2 mg BEDTIME ORAL 08/28/19 21:00 09/29/19 20:59 08/31/19 21:44 Sennosides (Senokot) 8.6 mg BEDTIME ORAL 08/28/19 21:00 09/05/19 20:59 08/31/19 21:44 Tamsulosin HCl (Flomax) 0.4 mg BID ORAL 08/29/19 09:00 09/05/19 20:59 08/31/19 18:04 Allergies: Coded Allergies: No Known Allergies (Unverified , 06/05/19) Objective Data Height (Feet): 5 Height (Inches): 6.00 Weight (Pounds): 107 General Appearance: WD/WN, no apparent distress, alert, confused Additional Comments: Alert, confused, disoriented. Mood is neutral. Affect is flat. Thought process, there is a paucity of thought content. Cognition is impaired. Assessment/Plan Problem List: (1) Encephalopathy due to metabolic factor or toxin Assessment & Plan: 2. Psychotic disorder. SNOMED: 382867908 Status: stable, progressing, not improved Assessment/Plan: PLAN: 1. lexapro 2. risperidone. 3. Loco Ortiz rn, MD Aug 31, 2019 23:28
[2019-09-01] VITALS: BP 149/67
[2019-09-01 04:00] VITALS: BP 137/56
[2019-09-01] MEDS: Nitroglycerin 2% oint pkt TOPIC SCH ×3 (06:00→17:39)
[2019-09-01 06:50] LABS: ANION GAP 13 mmol/L (5-15); BLOOD UREA NITROGEN 34 mg/dL (7-18); CALCIUM 9.2 MG/DL (8.5-10.1); CARBON DIOXIDE 22 MMOL/L (21-32); CHLORIDE 113 MMOL/L (98-107); CREATININE 1.8 MG/DL (0.55-1.30); POTASSIUM 3.4 MMOL/L (3.5-5.1); SODIUM 148 MMOL/L (136-145)
--- NOTE | 2019-09-01 07:00 | Progress Note ---
DATE: 08/31/2019 CARDIOLOGY PROGRESS NOTE SUBJECTIVE: The patient continues to have some congestion. Chest x-ray revealed increasing left lobe opacity. Viral swab is now positive for COVID-19. Oxygen saturation is adequate on room air. PHYSICAL EXAMINATION: LUNGS: Few rhonchi. CARDIAC: Regular rhythm and rate. Normal S1, S2. A 1/6 systolic apical murmur. EXTREMITIES: No edema. IMPRESSION: 1. COVID-19 pneumonia. 2. Urinary tract infection with Pseudomonas. 3. 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 PLAN: Consider hydroxychloroquine therapy alone. Avoid adding azithromycin to decrease risk of cardiac toxicity. We will discuss with the primary care physician. Isolation precautions are in place. Would use alternate to quinolone as well. Maintain current anti-failure regimen without change. Gamaliel Salas M.D. DR: SONJA JOB#: [id number] CC:
--- NOTE | 2019-09-01 07:50 | NUR ---
NURSE NOTES: Received patient from LUIS FERNANDO Rodgers. Patient is resting comfortably in bed. No signs and symptoms of pain or distress noted. Fall/Aspiration precautions in place. condom cath intact draining denia urine. Patient is positive for covi9-19, all precautions taken. Call light is within reach. Will continue with the plan of care.
[2019-09-01 08:00] VITALS: BP 144/61
[2019-09-01] MEDS ORDERED: Hydroxychloroquine Fact Sheet MISC ONE (08:00)
[2019-09-01 08:07] LABS: ALANINE AMINOTRANSFERASE 36 U/L (12-78); ALBUMIN 2.2 G/DL (3.4-5.0); ALKALINE PHOSPHATASE 112 U/L (46-116); ASPARTATE AMINO TRANSFERASE 41 U/L (15-37); BILIRUBIN,DIRECT 0.1 MG/DL (0.0-0.3); BILIRUBIN,TOTAL 0.2 MG/DL (0.2-1.0); PHOSPHORUS 2.6 MG/DL (2.5-4.9)
[2019-09-01] MEDS: Docusate 250mg cap ORAL SCH (08:22)
[2019-09-01] MEDS: Hydroxychloroquine 400mg tab ORAL SCH ×2 (08:22→17:39)
[2019-09-01] MEDS: Tamsulosin 0.4mg cap ORAL SCH ×2 (08:23→17:39)
--- NOTE | 2019-09-01 08:37 | Urology Progress Note ---
Assessment/Plan Status: stable, progressing, not improved Assessment/Plan: 1. Gross hematuria hx, presumably secondary to Doshi trauma, resolved. 2. BPH. 3. Urinary retention. 4. Neurogenic bladder. 5. Pyuria. 6. Proteinuria. 7. Renal insufficiency, which appears to be acute on chronic. 8. Rule out urethral stricture. monitor clinically doshi out, voiding/incontinent cont flomax and proscar on abx off anticoagulation, resume? restraints PRN cysto at some point monitor PVR and reinsert doshi PRN renal imaging? COVID (+) Subjective Allergies: Coded Allergies: No Known Allergies (Unverified , 06/05/19) Subjective all noted, confused, doshi out, incontinent, condom cath Objective Last 24 Hour Vital Signs Date Time Temp Pulse Resp B/P (MAP) Pulse Ox O2 Delivery O2 Flow Rate FiO2 09/01/19 08:27 61 144/61 09/01/19 06:00 137/56 09/01/19 04:00 97.5 55 18 137/56 (83) 97 09/01/19 04:00 55 09/01/19 00:00 97.7 65 149/67 (94) 09/01/19 00:00 68 08/31/19 21:00 Room Air 08/31/19 20:00 97.4 63 18 147/58 (87) 97 08/31/19 18:04 130/56 08/31/19 16:00 97.9 67 20 130/56 (80) 96 08/31/19 16:00 67 08/31/19 14:00 129/59 08/31/19 12:00 59 08/31/19 12:00 97.7 59 20 129/59 (82) 96 08/31/19 09:00 Room Air Intake and Output 08/31/19 09/01/19 19:00 07:00 Intake Total 710 ml Output Total 400 ml 375 ml Balance 310 ml -375 ml Intake Oral 710 ml Output Urine Total 400 ml 375 ml # Voids 2 # Bowel Movements 1 Microbiology Date/Time Source Procedure Growth Status 08/30/19 11:03 Nasopharynx Coronavirus COVID-19 PCR ([facility]) - Final Complete 08/28/19 12:31 Indwelling Cath Urine Culture - Final Pseudomonas Aeruginosa Raoultella Planticola Complete 08/06/19 04:45 Rectum VRE Culture - Final NO VANCOMYCIN RESISTANT ENTEROCOCCUS ... Complete Current Medications Medications (Trade) Dose Ordered Sig/Kristine Route PRN Reason Start Time Stop Time Status Last Admin Dose Admin Acetaminophen (Tylenol) 500 mg Q6H PRN ORAL MILD/TEMP 08/28/19 18:30 09/05/19 18:29 Amlodipine Besylate (Norvasc) 10 mg DAILY ORAL 08/29/19 11:45 09/28/19 11:44 09/01/19 08:27 Dextrose 1,000 ml @ 100 mls/hr Q10H IV 09/01/19 07:45 09/01/19 17:44 09/01/19 07:49 Docusate Sodium (Colace) 250 mg DAILY ORAL 08/29/19 09:00 09/05/19 08:59 09/01/19 08:22 Escitalopram Oxalate (Lexapro) 10 mg DAILY ORAL 08/29/19 09:00 09/17/19 08:59 09/01/19 08:21 Finasteride (Proscar) 5 mg DAILY ORAL 08/29/19 09:00 11/05/19 15:44 09/01/19 08:22 Hydralazine HCl (Apresoline) 10 mg Q8H PRN IV For High Blood Pressure 08/28/19 18:15 11/26/19 18:14 08/28/19 18:28 Hydroxychloroquine Sulfate (Plaquenil) 200 mg BID ORAL 09/02/19 09:00 09/05/19 18:01 Hydroxychloroquine Sulfate (Plaquenil) 400 mg BID ORAL 09/01/19 09:00 09/01/19 18:01 09/01/19 08:22 Levofloxacin (Levaquin) 250 mg DAILY ORAL 09/01/19 09:00 09/08/19 08:59 09/01/19 08:21 Magnesium Hydroxide (Mom) 30 ml TIDPRN PRN ORAL Constipation 08/29/19 05:45 09/18/19 05:44 Nitroglycerin (Nitro-Bid) 1 inch Q6HR@0600,1200,1800 TOPIC 08/29/19 06:00 09/11/19 06:59 09/01/19 06:00 Pantoprazole (Protonix) 40 mg DAILY ORAL 08/29/19 09:00 09/25/19 08:59 09/01/19 08:22 Risperidone (RisperDAL) 1 mg DAILY ORAL 08/29/19 09:00 10/09/19 15:59 09/01/19 08:21 Risperidone (RisperDAL) 2 mg BEDTIME ORAL 08/28/19 21:00 09/29/19 20:59 08/31/19 21:44 Sennosides (Senokot) 8.6 mg BEDTIME ORAL 08/28/19 21:00 09/05/19 20:59 08/31/19 21:44 Tamsulosin HCl (Flomax) 0.4 mg BID ORAL 08/29/19 09:00 09/05/19 20:59 09/01/19 08:23 Laboratory Tests 09/01/19 06:10: Sodium Level 148H, Potassium Level 3.4L, Chloride Level 113H, Carbon Dioxide Level 22, Anion Gap 13, Blood Urea Nitrogen 34H, Creatinine 1.8H, Estimat Glomerular Filtration Rate 36.1, Glucose Level 104, Calcium Level 9.2, Phosphorus Level 2.6, Magnesium Level 2.0, Total Bilirubin 0.2, Direct Bilirubin 0.1, Aspartate Amino Transf (AST/SGOT) 41H, Alanine Aminotransferase ( ALT/SGPT) 36, Alkaline Phosphatase 112, Total Protein 5.7L, Albumin 2.2L Height (Feet): 5 Height (Inches): 6.00 Weight (Pounds): 107 Objective exam stable abdomen soft urine grossly yellow Bamshad,Miki Perry MD Sep 01, 2019 08:37
--- NOTE | 2019-09-01 08:46 | NUR ---
CASE MANAGEMENT:REVIEW 09/01/19 SI:NOW COVID-19 (+) . METABOLIC VS TOXIC ENCEPHALOPATHY . BILATERAL PLEURAL EFFUSION. PULMONARY EDEMA . AC/CHR RENAL FAILURE. UTI PSEUDOMONAS A 97.5 55 18 137/56 97% ON RA NA+ 148 K+3.4 CL-113 BUN 34 CREAT 1.8 T.PROTEIN 5.7 ALBUMIN 2.2 IS:IV D5@100ML/HR X1 PLAQUENIL PO BID LEVAQUIN PO QD PROSCAR PO QD FLOMAX PO BID [place] PO QHS NORVASC PO QD PROTONIX PO QD RISPERDAL PO QD NITRO-BID Q6HR HYDRALAZINE PO Q8HR/PRN 08/31/19 CHEST X-RAY- slightly increased in the medial left base compared to prior \:2E TELE UNIT DCP: [facility] PLAN: SPEECH THERAPY/SWALLOWING TRAINING COMPLETE START ON REG DIET STOP IV ABX SWITCH TO LEVAQUIN PO DQ START ON PLAQUENIL PO BID COVID-19 TEST (+)
--- NOTE | 2019-09-01 09:55 | Nephrology Progress Note ---
Assessment/Plan Problem List: (1) Renal failure (ARF), acute on chronic Assessment: Serum creatinine stabilizing (2) Falls frequently (3) UTI (urinary tract infection) Assessment: and hematuria (4) Anemia (5) Dehydration (6) Encephalopathy due to metabolic factor or toxin Assessment Frequent falls Acute renal failure with underlying dehydration Anemia, underlying etiology unclear UTI (urinary tract infection) Toxic metabolic encephalopathy Plan Patient not called COVID-19 positive Start D5W for hypernatremia P.o. intake variable Oral potassium supplement as needed Discharge planning in process previously: Increase Flomax to twice daily Correct electrolytes as needed Transfusion as needed 2D echocardiogram ejection fraction 60% Kidney ultrasound pending results Monitor renal parameters Avoid nephrotoxics Antibiotics for UTI Continue per consultants Subjective ROS Limited/Unobtainable: No Constitutional: Reports: malaise Objective Objective Last 24 Hour Vital Signs Date Time Temp Pulse Resp B/P (MAP) Pulse Ox O2 Delivery O2 Flow Rate FiO2 09/01/19 09:00 Room Air 09/01/19 08:27 61 144/61 09/01/19 08:00 98.1 71 18 144/61 (88) 98 09/01/19 08:00 71 09/01/19 06:00 137/56 09/01/19 04:00 97.5 55 18 137/56 (83) 97 09/01/19 04:00 55 09/01/19 00:00 97.7 65 149/67 (94) 09/01/19 00:00 68 08/31/19 21:00 Room Air 08/31/19 20:00 97.4 63 18 147/58 (87) 97 08/31/19 18:04 130/56 08/31/19 16:00 97.9 67 20 130/56 (80) 96 08/31/19 16:00 67 08/31/19 14:00 129/59 08/31/19 12:00 59 08/31/19 12:00 97.7 59 20 129/59 (82) 96 Intake and Output 08/31/19 09/01/19 19:00 07:00 Intake Total 710 ml Output Total 400 ml 375 ml Balance 310 ml -375 ml Intake Oral 710 ml Output Urine Total 400 ml 375 ml # Voids 2 # Bowel Movements 1 Laboratory Tests 09/01/19 06:10: Sodium Level 148H, Potassium Level 3.4L, Chloride Level 113H, Carbon Dioxide Level 22, Anion Gap 13, Blood Urea Nitrogen 34H, Creatinine 1.8H, Estimat Glomerular Filtration Rate 36.1, Glucose Level 104, Calcium Level 9.2, Phosphorus Level 2.6, Magnesium Level 2.0, Total Bilirubin 0.2, Direct Bilirubin 0.1, Aspartate Amino Transf (AST/SGOT) 41H, Alanine Aminotransferase ( ALT/SGPT) 36, Alkaline Phosphatase 112, Total Protein 5.7L, Albumin 2.2L Height (Feet): 5 Height (Inches): 6.00 Weight (Pounds): 107 General Appearance: no apparent distress Objective No change Juan Jade MD Sep 01, 2019 09:55
--- NOTE | 2019-09-01 11:06 | Pulmonology Progress Note ---
Assessment/Plan Assessment/Plan IMPRESSION: 1. Pleural effusions, small bilateral. 2. Atelectasis. 3. Pulmonary edema, questionable. 4. Hypertension. 5. Hyperlipidemia. 6. positive COVID 19 7. UTI DISCUSSION: The patient is saturating well on room air or low flow O2. I will follow as child therapist. No new recommendations Kimani Hahn M.D. Subjective Interval Events: None new; now COVID 19 + Constitutional: Reports: no symptoms HEENT: Repors: no symptoms Respiratory: Reports: no symptoms Cardiovascular: Reports: no symptoms Gastrointestinal/Abdominal: Reports: no symptoms Allergies: Coded Allergies: No Known Allergies (Unverified , 06/05/19) Objective Last 24 Hour Vital Signs Date Time Temp Pulse Resp B/P (MAP) Pulse Ox O2 Delivery O2 Flow Rate FiO2 09/01/19 09:00 Room Air 09/01/19 08:27 61 144/61 09/01/19 08:00 98.1 71 18 144/61 (88) 98 09/01/19 08:00 71 09/01/19 06:00 137/56 09/01/19 04:00 97.5 55 18 137/56 (83) 97 09/01/19 04:00 55 09/01/19 00:00 97.7 65 149/67 (94) 09/01/19 00:00 68 08/31/19 21:00 Room Air 08/31/19 20:00 97.4 63 18 147/58 (87) 97 08/31/19 18:04 130/56 08/31/19 16:00 97.9 67 20 130/56 (80) 96 08/31/19 16:00 67 08/31/19 14:00 129/59 08/31/19 12:00 59 08/31/19 12:00 97.7 59 20 129/59 (82) 96 Intake and Output 08/31/19 09/01/19 19:00 07:00 Intake Total 710 ml Output Total 400 ml 375 ml Balance 310 ml -375 ml Intake Oral 710 ml Output Urine Total 400 ml 375 ml # Voids 2 # Bowel Movements 1 General Appearance: no acute distress HEENT: normocephalic Respiratory/Chest: chest wall non-tender, lungs clear Cardiovascular: normal peripheral pulses, regular rhythm Abdomen: normal bowel sounds Microbiology Date/Time Source Procedure Growth Status 08/30/19 11:03 Nasopharynx Coronavirus COVID-19 PCR ([facility]) - Final Complete Laboratory Tests 09/01/19 06:10: Sodium Level 148H, Potassium Level 3.4L, Chloride Level 113H, Carbon Dioxide Level 22, Anion Gap 13, Blood Urea Nitrogen 34H, Creatinine 1.8H, Estimat Glomerular Filtration Rate 36.1, Glucose Level 104, Calcium Level 9.2, Phosphorus Level 2.6, Magnesium Level 2.0, Total Bilirubin 0.2, Direct Bilirubin 0.1, Aspartate Amino Transf (AST/SGOT) 41H, Alanine Aminotransferase ( ALT/SGPT) 36, Alkaline Phosphatase 112, Total Protein 5.7L, Albumin 2.2L Current Medications Medications (Trade) Dose Ordered Sig/Kristine Route PRN Reason Start Time Stop Time Status Last Admin Dose Admin Acetaminophen (Tylenol) 500 mg Q6H PRN ORAL MILD/TEMP 08/28/19 18:30 09/05/19 18:29 Amlodipine Besylate (Norvasc) 10 mg DAILY ORAL 08/29/19 11:45 09/28/19 11:44 09/01/19 08:27 Dextrose 1,000 ml @ 100 mls/hr Q10H IV 09/01/19 07:45 09/01/19 17:44 09/01/19 07:49 Docusate Sodium (Colace) 250 mg DAILY ORAL 08/29/19 09:00 09/05/19 08:59 09/01/19 08:22 Escitalopram Oxalate (Lexapro) 10 mg DAILY ORAL 08/29/19 09:00 09/17/19 08:59 09/01/19 08:21 Finasteride (Proscar) 5 mg DAILY ORAL 08/29/19 09:00 11/05/19 15:44 09/01/19 08:22 Hydralazine HCl (Apresoline) 10 mg Q8H PRN IV For High Blood Pressure 08/28/19 18:15 11/26/19 18:14 08/28/19 18:28 Hydroxychloroquine Sulfate (Plaquenil) 200 mg BID ORAL 09/02/19 09:00 09/05/19 18:01 Hydroxychloroquine Sulfate (Plaquenil) 400 mg BID ORAL 09/01/19 09:00 09/01/19 18:01 09/01/19 08:22 Levofloxacin (Levaquin) 250 mg DAILY ORAL 09/01/19 09:00 09/08/19 08:59 09/01/19 08:21 Magnesium Hydroxide (Mom) 30 ml TIDPRN PRN ORAL Constipation 08/29/19 05:45 09/18/19 05:44 Nitroglycerin (Nitro-Bid) 1 inch Q6HR@0600,1200,1800 TOPIC 08/29/19 06:00 09/11/19 06:59 09/01/19 06:00 Pantoprazole (Protonix) 40 mg DAILY ORAL 08/29/19 09:00 09/25/19 08:59 09/01/19 08:22 Risperidone (RisperDAL) 1 mg DAILY ORAL 08/29/19 09:00 10/09/19 15:59 09/01/19 08:21 Risperidone (RisperDAL) 2 mg BEDTIME ORAL 08/28/19 21:00 09/29/19 20:59 08/31/19 21:44 Sennosides (Senokot) 8.6 mg BEDTIME ORAL 08/28/19 21:00 09/05/19 20:59 08/31/19 21:44 Tamsulosin HCl (Flomax) 0.4 mg BID ORAL 08/29/19 09:00 09/05/19 20:59 09/01/19 08:23 Kimani Hahn MD Sep 01, 2019 11:06
--- NOTE | 2019-09-01 11:39 | NUR ---
*-*INSURANCE*-* UPDATED CLINICALS AND REVIEWS FROM THE [facility] HAVE BEEN RE-FAXED TO: DEE [facility] F: [phone] REF# [id number] Addendum: 09/02/19 at 1010 by CHERYL FITZGERALD *-* INSURANCE AUTH *-* RECIEVED A CALL FROM [employer] WITH AUTH: AUTHORIZED 08/05-08/30/2019 AUTH# [id number] CM:ELIDIA P: [phone]
[2019-09-01 12:00] VITALS: BP 143/53
--- NOTE | 2019-09-01 13:09 | NUR ---
P.T Note: It is not imperative or essential to see pt in this setting at this time as pt is COVID (+) however recommend P.T follow up when cleared at DC planning to assess needs. Thank you. Addendum: 09/01/19 at 1432 by CONY JAMESON PT THE ABOVE P.T NOTE IS A WRONG ENTRY. PLEASE DISREGARD. WILL CONTINUE TO SEE PATIENT 3-5X/WK FOR STRENGTHENING UNTIL DC. THANK YOU.
--- NOTE | 2019-09-01 13:44 | General Progress Note ---
Assessment/Plan Problem List: (1) CHF (congestive heart failure) ICD Codes: I50.9 - Heart failure, unspecified SNOMED: 84397357 (2) Renal failure (ARF), acute on chronic ICD Codes: N17.9 - Acute kidney failure, unspecified; N18.9 - Chronic kidney disease, unspecified SNOMED: 806084989 (3) Encephalopathy due to metabolic factor or toxin SNOMED: 036917789 (4) Gross hematuria ICD Codes: R31.0 - Gross hematuria SNOMED: 858004277 (5) Falls frequently ICD Codes: R29.6 - Repeated falls SNOMED: 702773661 (6) Dehydration ICD Codes: E86.0 - Dehydration SNOMED: 05202649 (7) UTI (urinary tract infection) ICD Codes: N39.0 - Urinary tract infection, site not specified SNOMED: 49913128 (8) Anemia ICD Codes: D64.9 - Anemia, unspecified SNOMED: 973853362 Status: stable, progressing, not improved Assessment/Plan: Antibiotics adjusted. Levaquin added. id follow up re:covid 19 + test Fluids. Repeat BMP tomorrow. Monitor sodium level. Anxiolytics as needed. Continue blood pressure treatment. Avoid aggressive blood pressure control due to fall risk. DVT and stress ulcer prophylaxis. [facility] to [facility]. Subjective ROS Limited/Unobtainable: No Constitutional: Reports: malaise, weakness HEENT: Reports: no symptoms Cardiovascular: Reports: no symptoms Respiratory: Reports: no symptoms Gastrointestinal/Abdominal: Reports: no symptoms Genitourinary: Reports: no symptoms Neurologic/Psychiatric: Reports: pre-existing deficit Endocrine: Reports: no symptoms Hematologic/Lymphatic: Reports: no symptoms Allergies: Coded Allergies: No Known Allergies (Unverified , 06/05/19) All Systems: reviewed and negative except above Subjective There have been no overnight events. Patient remains confused but is mostly cooperative with care. Urine cultures none. Labs reviewed. Sodium level trending up. P.o. intake remains labile. No falls noted. Blood pressure is much better controlled. covid 19 positive. Objective Last 24 Hour Vital Signs Date Time Temp Pulse Resp B/P (MAP) Pulse Ox O2 Delivery O2 Flow Rate FiO2 09/01/19 13:26 143/53 09/01/19 12:00 97.9 71 20 143/53 (83) 99 09/01/19 12:00 71 09/01/19 09:00 Room Air 09/01/19 08:27 61 144/61 09/01/19 08:00 98.1 71 18 144/61 (88) 98 09/01/19 08:00 71 09/01/19 06:00 137/56 09/01/19 04:00 97.5 55 18 137/56 (83) 97 09/01/19 04:00 55 09/01/19 00:00 97.7 65 149/67 (94) 09/01/19 00:00 68 08/31/19 21:00 Room Air 08/31/19 20:00 97.4 63 18 147/58 (87) 97 08/31/19 18:04 130/56 08/31/19 16:00 97.9 67 20 130/56 (80) 96 08/31/19 16:00 67 08/31/19 14:00 129/59 Intake and Output 08/31/19 09/01/19 19:00 07:00 Intake Total 710 ml Output Total 400 ml 375 ml Balance 310 ml -375 ml Intake Oral 710 ml Output Urine Total 400 ml 375 ml # Voids 2 # Bowel Movements 1 Laboratory Tests 09/01/19 06:10: Sodium Level 148H, Potassium Level 3.4L, Chloride Level 113H, Carbon Dioxide Level 22, Anion Gap 13, Blood Urea Nitrogen 34H, Creatinine 1.8H, Estimat Glomerular Filtration Rate 36.1, Glucose Level 104, Calcium Level 9.2, Phosphorus Level 2.6, Magnesium Level 2.0, Total Bilirubin 0.2, Direct Bilirubin 0.1, Aspartate Amino Transf (AST/SGOT) 41H, Alanine Aminotransferase ( ALT/SGPT) 36, Alkaline Phosphatase 112, Total Protein 5.7L, Albumin 2.2L Height (Feet): 5 Height (Inches): 6.00 Weight (Pounds): 107 Objective General Appearance: WD/WN, alert, confused Neck: supple Cardiovascular: regular rhythm Respiratory/Chest: rhonchi - bilaterally Abdomen: normal bowel sounds, non tender, soft, no organomegaly, no mass Edema: no edema noted Arm (L), no edema noted Arm (R), no edema noted Leg (L), no edema noted Leg (R), no edema noted Pedal (L), no edema noted Pedal (R), no edema noted Generalized Neurologic: can washer II-XII grossly normal, alert, responsive Iggy Echavarria MD Sep 01, 2019 13:44
[2019-09-01 16:00] VITALS: BP 134/60
--- NOTE | 2019-09-01 16:20 | NUR ---
NURSE NOTES: THE SECOND COVID-19 SPECIMEN COLLECTED AND SENT TO LAB
--- NOTE | 2019-09-01 19:16 | NUR ---
HAND-OFF: Report given to LUIS FERNANDO Magallanes.
--- NOTE | 2019-09-01 19:17 | NUR ---
Received pt from Joaquim Gonzalez. Pt is awake and resting in bed in no acute distress with HOB elevated tolerating RA with no distress. IV site intact. Bed locked in lowest position bed alarm on, call light within reach. Will continue with plan of care.
[2019-09-01 20:00] VITALS: BP 120/43
[2019-09-01] MEDS: Sennosides 8.6mg tab ORAL SCH (21:37)
[2019-09-02] VITALS: BP 123/46
[2019-09-02] MEDS: D5W w/KCl 20mEq 1,000 ML IV SCH ×3 (01:00→18:03)
[2019-09-02 04:00] VITALS: BP 137/59
[2019-09-02] MEDS: Nitroglycerin 2% oint pkt TOPIC SCH ×3 (06:12→17:52)
[2019-09-02 06:52] LABS: HEMATOCRIT 25.8 % (42.0-52.0); HEMOGLOBIN 8.7 G/DL (14.2-18.0); MEAN CORPUSCULAR VOLUME 86 FL (80-99); PLATELET COUNT 150 K/UL (150-450); RED BLOOD COUNT 2.99 M/UL (4.70-6.10); WHITE BLOOD COUNT 3.3 K/UL (4.8-10.8)
--- NOTE | 2019-09-02 07:03 | NUR ---
NURSE NOTES: Received patient from LUIS FERNANDO Magallanes. Patient is resting comfortably in bed. No signs and symptoms of pain or distress noted. Fall/Aspiration precautions in place. condom cath intact draining denia urine. Patient is positive for covid-19, all precautions taken. Call light is within reach. Will continue with the plan of care.
--- NOTE | 2019-09-02 07:09 | NUR ---
HAND-OFF: Report given to LUIS FERNANDO Gonzalez. Pt is resting in bed in no acute distress with HOB elevated. Bed locked in lowest positio bed alarm [facility] specialist light within reach. Endorsed plan of care.
[2019-09-02 07:15] LABS: ANION GAP 9 mmol/L (5-15); BLOOD UREA NITROGEN 30 mg/dL (7-18); CALCIUM 9.4 MG/DL (8.5-10.1); CARBON DIOXIDE 23 MMOL/L (21-32); CHLORIDE 107 MMOL/L (98-107); CREATININE 1.9 MG/DL (0.55-1.30); POTASSIUM 3.5 MMOL/L (3.5-5.1); SODIUM 139 MMOL/L (136-145)
[2019-09-02 08:00] VITALS: BP 121/96
--- NOTE | 2019-09-02 08:21 | NUR ---
RD ASSESSMENT & RECOMMENDATIONS SEE CARE ACTIVITY FOR COMPLETE ASSESSMENT DAILY ESTIMATED NEEDS: Needs based on Wound, 66.8kg 28-33 kcals/kg 4187-1357 total kcals 1.25-1.5 g protein/kg 84-100 g total protein 25-30 mL/kg 6013-8860 total fluid mLs NUTRITION DIAGNOSIS: Swallowing difficulty r/t dysphagia and ams as evidenced by s/p [facility] eval, poor cognition, pt on liquify puree texture diet w/ HTL, w/ variable intake. CURRENT DIET: Liquify puree HTL Regular PO DIET RECOMMENDATIONS: Maintain Regular diet, texture per [facility] ADDITIONAL RECOMMENDATIONS: 1) Ensure Enlive TID w/ meals (350kcal/20g prot per bottle) 2) Maintain calibrated bed scale wts EMR wt: 160# vs Bed scale wt: 147#-> bed now reads 109.8# 3) Consider D5 IVF (vs 1/2 NS running currently)- Na elevated to prevent hypoglycemia given poor/variable PO 4) Wound care: MVI 1 tab QD + Vit C 250mg QD+ Jacob BID 5) Monitor lytes, replete as needed
--- NOTE | 2019-09-02 08:44 | Progress Note ---
DATE: 09/01/2019 SUBJECTIVE: The patient was noted to be COVI positive yesterday. No hypoxia. OBJECTIVE: VITAL SIGNS: Blood pressure 143/53, pulse 71, respirations 20. LUNGS: Bilateral breath sounds, rhonchi. CARDIAC: Regular rhythm and rate. Normal S., S.. ABDOMEN: Soft. EXTREMITIES: Trace edema. Monitor unchanged. LABORATORY DATA: Sodium 148, potassium 3.4, BUN 34, creatinine 1.8, and albumin 2.2. IMPRESSION: 1. COVI-19 pneumonia, dehydration, hyponatremia, hypokalemia. 2. Acute kidney injury. 3. Severe protein-calorie malnutrition. 4. Valvular cardiomyopathy. 5. Pulmonary hypertension. 6. Acute and chronic diastolic congestive heart failure. PLAN: 1. Monitor cardiovascular parameters on hydroxychloroquine, replace potassium, monitor and replace free water. 2. Respiratory hygiene. 3. Remains at high risk due to multiorgan system failure and underlying cardiomyopathy. Gamaliel Salas M.D. DR: MAXIMINO JOB#: [id number] CC:
--- NOTE | 2019-09-02 08:44 | Progress Note ---
DATE: 09/01/2019 SUBJECTIVE: The patient is doing better, calm and manageable. Less agitated today. MENTAL STATUS EXAMINATION: Awake. Disoriented. Mood is neutral to anxious. Affect is flat. Thought process concrete PLAN: Continue to follow and readjust the medications. Loco Luu M.D. DR: Tonya JOB#: [id number] CC: JAISON
[2019-09-02] MEDS: Docusate 250mg cap ORAL SCH (08:49)
[2019-09-02] MEDS: Tamsulosin 0.4mg cap ORAL SCH ×2 (08:49→17:52)
--- NOTE | 2019-09-02 10:16 | Nephrology Progress Note ---
Assessment/Plan Problem List: (1) Renal failure (ARF), acute on chronic Assessment: Serum creatinine stabilizing (2) Falls frequently (3) UTI (urinary tract infection) Assessment: and hematuria (4) Anemia (5) Dehydration (6) Encephalopathy due to metabolic factor or toxin Assessment Frequent falls Acute renal failure with underlying dehydration Anemia, underlying etiology unclear UTI (urinary tract infection) Toxic metabolic encephalopathy Plan Patient now COVID-19 positive Start D5W for hypernatremia P.o. intake variable Oral potassium supplement as needed Discharge planning in process previously: Increase Flomax to twice daily Correct electrolytes as needed Transfusion as needed 2D echocardiogram ejection fraction 60% Kidney ultrasound pending results Monitor renal parameters Avoid nephrotoxics Antibiotics for UTI Continue per consultants Subjective ROS Limited/Unobtainable: No Constitutional: Reports: malaise, weakness Objective Objective Last 24 Hour Vital Signs Date Time Temp Pulse Resp B/P (MAP) Pulse Ox O2 Delivery O2 Flow Rate FiO2 09/02/19 08:51 52 121/96 09/02/19 08:41 Room Air 09/02/19 08:00 57 09/02/19 08:00 97.9 52 20 121/96 (104) 97 09/02/19 06:12 121/73 09/02/19 04:00 53 09/02/19 04:00 97.7 53 19 137/59 (85) 97 09/02/19 00:00 59 09/02/19 00:00 98.1 58 17 123/46 (71) 98 09/01/19 21:00 Room Air 09/01/19 20:00 98.2 62 18 120/43 (68) 97 09/01/19 20:00 62 09/01/19 17:39 134/60 09/01/19 16:00 71 09/01/19 16:00 97.6 71 20 134/60 (84) 97 09/01/19 13:26 143/53 09/01/19 12:00 97.9 71 20 143/53 (83) 99 09/01/19 12:00 71 Intake and Output 09/01/19 09/02/19 19:00 07:00 Intake Total 324 ml Output Total 400 ml Balance -76 ml Intake Oral 324 ml Output Urine Total 400 ml # Voids 1 2 # Bowel Movements 1 1 Laboratory Tests 09/02/19 06:02: White Blood Count 3.3L, Red Blood Count 2.99L, Hemoglobin 8.7L, Hematocrit 25.8L , Mean Corpuscular Volume 86, Mean Corpuscular Hemoglobin 29.0, Mean Corpuscular Hemoglobin Concent 33.6, Red Cell Distribution Width 13.0, Platelet Count 150, Mean Platelet Volume 6.3L, Neutrophils (%) (Auto) , Lymphocytes (%) ( Auto) , Monocytes (%) (Auto) , Eosinophils (%) (Auto) , Basophils (%) (Auto) , Differential Total Cells Counted 100, Neutrophils % (Manual) 69, Lymphocytes % ( Manual) 23, Monocytes % (Manual) 7, Eosinophils % (Manual) 0, Basophils % ( Manual) 1, Band Neutrophils 0, Platelet Estimate Adequate, Platelet Morphology Normal, Red Blood Cell Morphology Normal, Sodium Level 139, Potassium Level 3.5 , Chloride Level 107, Carbon Dioxide Level 23, Anion Gap 9, Blood Urea Nitrogen 30H, Creatinine 1.9H, Estimat Glomerular Filtration Rate 33.9, Glucose Level 99 , Calcium Level 9.4, Magnesium Level 1.9 Height (Feet): 5 Height (Inches): 6.00 Weight (Pounds): 107 General Appearance: no apparent distress Objective No change Juan Jade MD Sep 02, 2019 10:16
--- NOTE | 2019-09-02 10:24 | NUR ---
*-*INSURANCE*-* UPDATED CLINICALS AND REVIEWS HAVE BEEN FACXED TO: DEE ARAGON:GLENIS P: [phone] F: [phone] REF# [id number]
--- NOTE | 2019-09-02 10:27 | Pulmonology Progress Note ---
Assessment/Plan Assessment/Plan IMPRESSION: 1. Pleural effusions, small bilateral. 2. Atelectasis. 3. Pulmonary edema, questionable. 4. Hypertension. 5. Hyperlipidemia. 6. positive COVID 19 7. UTI DISCUSSION: The patient is saturating well on room air today. 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 No new recommendations Kimani Hahn M.D. Subjective Interval Events: None new Constitutional: Reports: no symptoms HEENT: Repors: no symptoms Respiratory: Reports: no symptoms Cardiovascular: Reports: no symptoms Gastrointestinal/Abdominal: Reports: no symptoms Genitourinary: Reports: no symptoms Allergies: Coded Allergies: No Known Allergies (Unverified , 06/05/19) Objective Last 24 Hour Vital Signs Date Time Temp Pulse Resp B/P (MAP) Pulse Ox O2 Delivery O2 Flow Rate FiO2 09/02/19 08:51 52 121/96 09/02/19 08:41 Room Air 09/02/19 08:00 57 09/02/19 08:00 97.9 52 20 121/96 (104) 97 09/02/19 06:12 121/73 09/02/19 04:00 53 09/02/19 04:00 97.7 53 19 137/59 (85) 97 09/02/19 00:00 59 09/02/19 00:00 98.1 58 17 123/46 (71) 98 09/01/19 21:00 Room Air 09/01/19 20:00 98.2 62 18 120/43 (68) 97 09/01/19 20:00 62 09/01/19 17:39 134/60 09/01/19 16:00 71 09/01/19 16:00 97.6 71 20 134/60 (84) 97 09/01/19 13:26 143/53 09/01/19 12:00 97.9 71 20 143/53 (83) 99 09/01/19 12:00 71 Intake and Output 09/01/19 09/02/19 19:00 07:00 Intake Total 324 ml Output Total 400 ml Balance -76 ml Intake Oral 324 ml Output Urine Total 400 ml # Voids 1 2 # Bowel Movements 1 1 General Appearance: no acute distress HEENT: normocephalic Respiratory/Chest: chest wall non-tender Cardiovascular: normal peripheral pulses Abdomen: normal bowel sounds Microbiology Date/Time Source Procedure Growth Status 08/30/19 11:03 Nasopharynx Coronavirus COVID-19 PCR ([facility]) - Final Complete Laboratory Tests 09/02/19 06:02: White Blood Count 3.3L, Red Blood Count 2.99L, Hemoglobin 8.7L, Hematocrit 25.8L , Mean Corpuscular Volume 86, Mean Corpuscular Hemoglobin 29.0, Mean Corpuscular Hemoglobin Concent 33.6, Red Cell Distribution Width 13.0, Platelet Count 150, Mean Platelet Volume 6.3L, Neutrophils (%) (Auto) , Lymphocytes (%) ( Auto) , Monocytes (%) (Auto) , Eosinophils (%) (Auto) , Basophils (%) (Auto) , Differential Total Cells Counted 100, Neutrophils % (Manual) 69, Lymphocytes % ( Manual) 23, Monocytes % (Manual) 7, Eosinophils % (Manual) 0, Basophils % ( Manual) 1, Band Neutrophils 0, Platelet Estimate Adequate, Platelet Morphology Normal, Red Blood Cell Morphology Normal, Sodium Level 139, Potassium Level 3.5 , Chloride Level 107, Carbon Dioxide Level 23, Anion Gap 9, Blood Urea Nitrogen 30H, Creatinine 1.9H, Estimat Glomerular Filtration Rate 33.9, Glucose Level 99 , Calcium Level 9.4, Magnesium Level 1.9 Current Medications Medications (Trade) Dose Ordered Sig/Kristine Route PRN Reason Start Time Stop Time Status Last Admin Dose Admin Acetaminophen (Tylenol) 500 mg Q6H PRN ORAL MILD/TEMP 08/28/19 18:30 09/05/19 18:29 Amlodipine Besylate (Norvasc) 10 mg DAILY ORAL 08/29/19 11:45 09/28/19 11:44 09/02/19 08:51 Dextrose/ Electrolytes 1,000 ml @ 100 mls/hr Q10H IV 09/02/19 01:00 10/02/19 00:59 09/02/19 01:00 Docusate Sodium (Colace) 250 mg DAILY ORAL 08/29/19 09:00 09/05/19 08:59 09/02/19 08:49 Escitalopram Oxalate (Lexapro) 10 mg DAILY ORAL 08/29/19 09:00 09/17/19 08:59 09/02/19 08:49 Finasteride (Proscar) 5 mg DAILY ORAL 08/29/19 09:00 11/05/19 15:44 09/02/19 08:50 Hydralazine HCl (Apresoline) 10 mg Q8H PRN IV For High Blood Pressure 08/28/19 18:15 11/26/19 18:14 08/28/19 18:28 Hydroxychloroquine Sulfate (Plaquenil) 200 mg BID ORAL 09/02/19 09:00 09/05/19 18:01 09/02/19 08:50 Levofloxacin (Levaquin) 250 mg DAILY ORAL 09/01/19 09:00 09/08/19 08:59 09/02/19 08:50 Magnesium Hydroxide (Mom) 30 ml TIDPRN PRN ORAL Constipation 08/29/19 05:45 09/18/19 05:44 Nitroglycerin (Nitro-Bid) 1 inch Q6HR@0600,1200,1800 TOPIC 08/29/19 06:00 09/11/19 06:59 09/02/19 06:12 Pantoprazole (Protonix) 40 mg DAILY ORAL 08/29/19 09:00 09/25/19 08:59 09/02/19 08:49 Risperidone (RisperDAL) 1 mg DAILY ORAL 08/29/19 09:00 10/09/19 15:59 09/02/19 08:50 Risperidone (RisperDAL) 2 mg BEDTIME ORAL 08/28/19 21:00 09/29/19 20:59 09/01/19 21:37 Sennosides (Senokot) 8.6 mg BEDTIME ORAL 08/28/19 21:00 09/05/19 20:59 09/01/19 21:37 Tamsulosin HCl (Flomax) 0.4 mg BID ORAL 08/29/19 09:00 09/05/19 20:59 09/02/19 08:49 Kimani Hahn MD Sep 02, 2019 10:27
--- NOTE | 2019-09-02 11:16 | NUR ---
CASE MANAGEMENT:REVIEW 09/02/19 SI:NOW COVID-19 (+) . METABOLIC VS TOXIC ENCEPHALOPATHY . BILATERAL PLEURAL EFFUSION. PULMONARY EDEMA . AC/CHR RENAL FAILURE. UTI PSEUDOMONAS A 97.9 52 20 121/96 97% ON RA WBC 3.3 H/H 8.7/25.8 BUN 30 CREAT 1.9 IS:IV D5@100ML/HR X1 PLAQUENIL PO BID X8 DOSES LEVAQUIN PO QD PROSCAR PO QD FLOMAX PO BID [place] PO QHS NORVASC PO QD PROTONIX PO QD RISPERDAL PO QD NITRO-BID Q6HR HYDRALAZINE PO Q8HR/PRN \:2E TELE UNIT DCP: [facility] PLAN: SPEECH THERAPY/SWALLOWING TRAINING COMPLETE START ON REG DIET COVID-19 TEST (+) SECOND COVID-19 -PENDING CONTINUE PT THERAPY - DETERMINE IF PATIENT WILL RETURN SKILLED OR INDEPENDENTLY
[2019-09-02 12:00] VITALS: BP 112/63
--- NOTE | 2019-09-02 13:39 | General Progress Note ---
Assessment/Plan Problem List: (1) CHF (congestive heart failure) ICD Codes: I50.9 - Heart failure, unspecified SNOMED: 34218627 (2) Renal failure (ARF), acute on chronic ICD Codes: N17.9 - Acute kidney failure, unspecified; N18.9 - Chronic kidney disease, unspecified SNOMED: 692547119 (3) Encephalopathy due to metabolic factor or toxin SNOMED: 621901142 (4) Gross hematuria ICD Codes: R31.0 - Gross hematuria SNOMED: 764515081 (5) Falls frequently ICD Codes: R29.6 - Repeated falls SNOMED: 874060155 (6) Dehydration ICD Codes: E86.0 - Dehydration SNOMED: 92476107 (7) UTI (urinary tract infection) ICD Codes: N39.0 - Urinary tract infection, site not specified SNOMED: 18680070 (8) Anemia ICD Codes: D64.9 - Anemia, unspecified SNOMED: 920335814 Status: stable, progressing, not improved Assessment/Plan: o2 as needed id follow up re:covid 19 + test Fluids. Repeat BMP tomorrow. Monitor sodium level. Anxiolytics as needed. Continue blood pressure treatment. Avoid aggressive blood pressure control due to fall risk. DVT and stress ulcer prophylaxis. [facility] for now Subjective ROS Limited/Unobtainable: Yes Constitutional: Reports: malaise, weakness HEENT: Reports: no symptoms Cardiovascular: Reports: no symptoms Respiratory: Reports: cough Gastrointestinal/Abdominal: Reports: no symptoms Genitourinary: Reports: no symptoms Neurologic/Psychiatric: Reports: pre-existing deficit Endocrine: Reports: no symptoms Hematologic/Lymphatic: Reports: anemia Allergies: Coded Allergies: No Known Allergies (Unverified , 06/05/19) All Systems: reviewed and negative except above Subjective There have been no significant overnight changes. Noted to be COVID 19+ minimal cough. No fevers or chills. No chest pain or shortness of breath. Remains confused and agitated at baseline. Discussed with ID and nephrology. Objective Last 24 Hour Vital Signs Date Time Temp Pulse Resp B/P (MAP) Pulse Ox O2 Delivery O2 Flow Rate FiO2 09/02/19 12:00 112/63 09/02/19 12:00 68 09/02/19 12:00 97.7 68 20 112/63 (79) 97 09/02/19 08:51 52 121/96 09/02/19 08:41 Room Air 09/02/19 08:00 57 09/02/19 08:00 97.9 52 20 121/96 (104) 97 09/02/19 06:12 121/73 09/02/19 04:00 53 09/02/19 04:00 97.7 53 19 137/59 (85) 97 09/02/19 00:00 59 09/02/19 00:00 98.1 58 17 123/46 (71) 98 09/01/19 21:00 Room Air 09/01/19 20:00 98.2 62 18 120/43 (68) 97 09/01/19 20:00 62 09/01/19 17:39 134/60 09/01/19 16:00 71 09/01/19 16:00 97.6 71 20 134/60 (84) 97 Intake and Output 09/01/19 09/02/19 19:00 07:00 Intake Total 324 ml Output Total 400 ml Balance -76 ml Intake Oral 324 ml Output Urine Total 400 ml # Voids 1 2 # Bowel Movements 1 1 Laboratory Tests 09/02/19 06:02: White Blood Count 3.3L, Red Blood Count 2.99L, Hemoglobin 8.7L, Hematocrit 25.8L , Mean Corpuscular Volume 86, Mean Corpuscular Hemoglobin 29.0, Mean Corpuscular Hemoglobin Concent 33.6, Red Cell Distribution Width 13.0, Platelet Count 150, Mean Platelet Volume 6.3L, Neutrophils (%) (Auto) , Lymphocytes (%) ( Auto) , Monocytes (%) (Auto) , Eosinophils (%) (Auto) , Basophils (%) (Auto) , Differential Total Cells Counted 100, Neutrophils % (Manual) 69, Lymphocytes % ( Manual) 23, Monocytes % (Manual) 7, Eosinophils % (Manual) 0, Basophils % ( Manual) 1, Band Neutrophils 0, Platelet Estimate Adequate, Platelet Morphology Normal, Red Blood Cell Morphology Normal, Sodium Level 139, Potassium Level 3.5 , Chloride Level 107, Carbon Dioxide Level 23, Anion Gap 9, Blood Urea Nitrogen 30H, Creatinine 1.9H, Estimat Glomerular Filtration Rate 33.9, Glucose Level 99 , Calcium Level 9.4, Magnesium Level 1.9 Height (Feet): 5 Height (Inches): 6.00 Weight (Pounds): 107 Objective General Appearance: WD/WN, alert, confused Neck: supple Cardiovascular: regular rhythm Respiratory/Chest: rhonchi - bilaterally Abdomen: normal bowel sounds, non tender, soft, no organomegaly, no mass Edema: no edema noted Arm (L), no edema noted Arm (R), no edema noted Leg (L), no edema noted Leg (R), no edema noted Pedal (L), no edema noted Pedal (R), no edema noted 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
--- NOTE | 2019-09-02 13:45 | Consultation ---
DATE OF CONSULTATION: 09/02/2019 INFECTIOUS DISEASES CONSULTATION CONSULTING PHYSICIAN: Gonzalez Stephens M.D. REFERRING PHYSICIAN: Iggy Echavarria M.D. REASON FOR CONSULTATION: COVID-19 pneumonia. HISTORY OF PRESENTING ILLNESS: This is an 83-year-old gentleman, who was transferred from a senior care facility with hypertension and acute renal failure. He was now found to have COVID-19 pneumonia and an Infectious Diseases consultation has been obtained for antibiotics. PAST MEDICAL HISTORY: 1. Hypertension. 2. Renal failure. SOCIAL HISTORY: Unknown. FAMILY HISTORY: Unknown. REVIEW OF SYSTEMS: Unable to obtain currently. MEDICATIONS: As an inpatient, he is on hydroxychloroquine, Levaquin, amlodipine, docusate, Lexapro, Proscar, Protonix, Risperdal, Flomax, nitroglycerin, milk of magnesia, senna, Tylenol, hydralazine. ALLERGIES: No known drug allergies. PHYSICAL EXAMINATION: VITAL SIGNS: Temperature of 97.9, T-max of 98.2, pulse of 52, respiratory rate 20, blood pressure 121/96, O2 saturation of 97%. Examination deferred due to COVID-19. LABORATORY AND DIAGNOSTIC DATA: White count 3.3, hemoglobin 8.7, hematocrit 25.8, MCV 86, platelet count 150,000, neutrophils of 69%. Sodium 139, potassium 3.5, chloride 107, bicarb 23, BUN 30, creatinine 1.9, glucose 99, calcium 9.4. Total bilirubin 0.2. AST 41, ALT 36, alkaline phosphatase 112. Total protein 5.7, albumin 2.2. UA is showing 0 to 2 white cells. On , COVID-19 swab was positive. Urine cultures from 08/28/2019 growing Pseudomonas and Raoultella; Pseudomonas is Levaquin susceptible, Raoultella is Levaquin susceptible, both are piperacillin, tazobactam susceptible. Chest x-ray showing persistent perihilar opacities, slightly increased in the medial left base. ASSESSMENT: This is an 83-year-old gentleman with history of hypertension and renal failure, who came in and was found to have: 1. COVID-19 pneumonia. 2. Pseudomonas and Raoultella urinary tract infection. 3. Renal failure. PLAN: 1. Continue hydroxychloroquine three more days. 2. Continue Levaquin four more days. 3. Continue isolation. 4. We will follow the patient clinically. I would like to thank, Dr. Echavarria for this consultation. Willarduntluis antonio Stephens M.D. DR: IZA JOB#: [id number] CC: Iggy Echavarria M.D.
[2019-09-02 16:00] VITALS: BP 123/63
--- NOTE | 2019-09-02 18:22 | Urology Progress Note ---
Assessment/Plan Status: stable, progressing, not improved Assessment/Plan: 1. Gross hematuria hx, presumably secondary to Doshi trauma, resolved. 2. BPH. 3. Urinary retention. 4. Neurogenic bladder. 5. Pyuria. 6. Proteinuria. 7. Renal insufficiency, which appears to be acute on chronic. 8. Rule out urethral stricture. monitor clinically doshi out, voiding/incontinent cont flomax and proscar on abx off anticoagulation, resume? restraints PRN cysto at some point monitor PVR and reinsert doshi PRN renal imaging? COVID (+) Subjective Allergies: Coded Allergies: No Known Allergies (Unverified , 06/05/19) Subjective all noted, confused, doshi out, incontinent, condom cath Objective Last 24 Hour Vital Signs Date Time Temp Pulse Resp B/P (MAP) Pulse Ox O2 Delivery O2 Flow Rate FiO2 09/02/19 17:52 123/63 09/02/19 16:00 98.1 67 20 123/63 (83) 97 09/02/19 16:00 67 09/02/19 12:00 112/63 09/02/19 12:00 68 09/02/19 12:00 97.7 68 20 112/63 (79) 97 09/02/19 08:51 52 121/96 09/02/19 08:41 Room Air 09/02/19 08:00 57 09/02/19 08:00 97.9 52 20 121/96 (104) 97 09/02/19 06:12 121/73 09/02/19 04:00 53 09/02/19 04:00 97.7 53 19 137/59 (85) 97 09/02/19 00:00 59 09/02/19 00:00 98.1 58 17 123/46 (71) 98 09/01/19 21:00 Room Air 09/01/19 20:00 98.2 62 18 120/43 (68) 97 09/01/19 20:00 62 Intake and Output 09/01/19 09/02/19 19:00 07:00 Intake Total 324 ml Output Total 400 ml Balance -76 ml Intake Oral 324 ml Output Urine Total 400 ml # Voids 1 2 # Bowel Movements 1 1 Microbiology Date/Time Source Procedure Growth Status 08/30/19 11:03 Nasopharynx Coronavirus COVID-19 PCR (JOSÉ LUIS) - Final Complete 08/28/19 12:31 Indwelling Cath Urine Culture - Final Pseudomonas Aeruginosa Raoultella Planticola Complete 08/06/19 04:45 Rectum VRE Culture - Final NO VANCOMYCIN RESISTANT ENTEROCOCCUS ... Complete Current Medications Medications (Trade) Dose Ordered Sig/Kristine Route PRN Reason Start Time Stop Time Status Last Admin Dose Admin Acetaminophen (Tylenol) 500 mg Q6H PRN ORAL MILD/TEMP 08/28/19 18:30 09/05/19 18:29 Amlodipine Besylate (Norvasc) 10 mg DAILY ORAL 09/03/19 09:00 09/28/19 08:59 Dextrose/ Electrolytes 1,000 ml @ 100 mls/hr Q10H IV 09/02/19 01:00 10/02/19 00:59 09/02/19 18:03 Docusate Sodium (Colace) 250 mg DAILY ORAL 08/29/19 09:00 09/05/19 08:59 09/02/19 08:49 Escitalopram Oxalate (Lexapro) 10 mg DAILY ORAL 08/29/19 09:00 09/17/19 08:59 09/02/19 08:49 Finasteride (Proscar) 5 mg DAILY ORAL 08/29/19 09:00 11/05/19 15:44 09/02/19 08:50 Hydralazine HCl (Apresoline) 10 mg Q8H PRN IV For High Blood Pressure 08/28/19 18:15 11/26/19 18:14 08/28/19 18:28 Hydroxychloroquine Sulfate (Plaquenil) 200 mg BID ORAL 09/02/19 09:00 09/05/19 18:01 09/02/19 17:51 Levofloxacin (Levaquin) 250 mg DAILY ORAL 09/01/19 09:00 09/08/19 08:59 09/02/19 08:50 Magnesium Hydroxide (Mom) 30 ml TIDPRN PRN ORAL Constipation 08/29/19 05:45 09/18/19 05:44 Nitroglycerin (Nitro-Bid) 1 inch Q6HR@0600,1200,1800 TOPIC 08/29/19 06:00 09/11/19 06:59 09/02/19 17:52 Pantoprazole (Protonix) 40 mg DAILY ORAL 08/29/19 09:00 09/25/19 08:59 09/02/19 08:49 Risperidone (RisperDAL) 1 mg DAILY ORAL 08/29/19 09:00 10/09/19 15:59 09/02/19 08:50 Risperidone (RisperDAL) 2 mg BEDTIME ORAL 08/28/19 21:00 09/29/19 20:59 09/01/19 21:37 Sennosides (Senokot) 8.6 mg BEDTIME ORAL 08/28/19 21:00 09/05/19 20:59 09/01/19 21:37 Tamsulosin HCl (Flomax) 0.4 mg BID ORAL 08/29/19 09:00 09/05/19 20:59 09/02/19 17:52 Laboratory Tests 09/02/19 06:02: White Blood Count 3.3L, Red Blood Count 2.99L, Hemoglobin 8.7L, Hematocrit 25.8L , Mean Corpuscular Volume 86, Mean Corpuscular Hemoglobin 29.0, Mean Corpuscular Hemoglobin Concent 33.6, Red Cell Distribution Width 13.0, Platelet Count 150, Mean Platelet Volume 6.3L, Neutrophils (%) (Auto) , Lymphocytes (%) ( Auto) , Monocytes (%) (Auto) , Eosinophils (%) (Auto) , Basophils (%) (Auto) , Differential Total Cells Counted 100, Neutrophils % (Manual) 69, Lymphocytes % ( Manual) 23, Monocytes % (Manual) 7, Eosinophils % (Manual) 0, Basophils % ( Manual) 1, Band Neutrophils 0, Platelet Estimate Adequate, Platelet Morphology Normal, Red Blood Cell Morphology Normal, Sodium Level 139, Potassium Level 3.5 , Chloride Level 107, Carbon Dioxide Level 23, Anion Gap 9, Blood Urea Nitrogen 30H, Creatinine 1.9H, Estimat Glomerular Filtration Rate 33.9, Glucose Level 99 , Calcium Level 9.4, Magnesium Level 1.9 Height (Feet): 5 Height (Inches): 6.00 Weight (Pounds): 107 Objective exam stable abdomen soft urine grossly yellow Bamshad,Miki Perry MD Sep 02, 2019 18:22
--- NOTE | 2019-09-02 19:12 | NUR ---
HAND-OFF: Report given to Niru.Endorsed the plan of care. Patient is in stable condition.
[2019-09-02 20:00] VITALS: BP 141/61
--- NOTE | 2019-09-02 20:00 | NUR ---
NURSE NOTES: RECEIVED PATIENT LYING IN BED, AWAKE, ALERT/ORIENTED TO SELF, REALITY ORIENTATION DURING ASSESSMENT, REQUIRE FREQUENT INTERVENTIONS , DROPLET ISOLATION ONGOING - NO SIGNS AND SYMPTOMS OF ACUTE CARDIO RESPIRATORY DISTRESS/SHORTNESS OF BREATH, NO EDEMA NOTED, CONTINUE ON SUPERVISOR CAB. TOLERATING IV FLUIDS D5W 20K AT 100ML/HR, NO REDNESS/SWELLING NOTED TO SITE. ABDOMEN SOFT/NON DISTENDED/BOWEL SOUNDS AUDIBLE, NO REPORT OF N/V/D. REPOSITIONED FOR COMFORT/PRESSURE RELIEF, TOLERATED WELL. BED IN LOWEST POSITION FOR SAFETY, SIDE RAILS UP X3, BED ALARM ACTIVATED. FREQUENT ROUNDING FOR SAFETY/NEEDS. CONTINUE WITH CURRENT PLAN OF CARE. NAD.
[2019-09-02] MEDS: Sennosides 8.6mg tab ORAL SCH (20:27)
[2019-09-03] VITALS: BP 149/68
[2019-09-03 04:00] VITALS: BP 142/53
[2019-09-03] MEDS: D5W w/KCl 20mEq 1,000 ML IV SCH (05:00)
--- NOTE | 2019-09-03 05:00 | Progress Note ---
DATE: 09/02/2019 CARDIOLOGY PROGRESS NOTE SUBJECTIVE: The patient is COVID-19 positive and was started on hydroxychloroquine. QTc interval remains less than 500 milliseconds. Monitor with junctional rhythm. OBJECTIVE: VITAL SIGNS: Blood pressure 112/63, heart rate 68, respiratory rate 20. LUNGS: Bilateral breath sounds. Rhonchi. CARDIAC: Regular rhythm and rate. Normal S1, S2. A 1/6 systolic apical murmur. ABDOMEN: Soft. EXTREMITIES: No edema. LABORATORY DATA: White count 3.3, hemoglobin 8.7, platelets 150,000. Sodium 139, potassium 3.5, bicarb 23, BUN 30, creatinine 1.9. Magnesium 1.9. IMPRESSION: 1. COVID-19 pneumonia. 2. Pulmonary hypertension. 3. Valvular cardiomyopathy. 4. Acute on chronic diastolic congestive heart failure. 5. Junctional rhythm with bradyarrhythmia. 6. Hypertensive heart disease. 7. 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 PLAN: 1. Continue current cardiovascular regimen. 2. Monitor QTc interval. 3. Potassium replacement. 4. Free water replacement. 5. Protein supplement as tolerated. 6. Nasal oxygen. 7. Follow up chest radiograph. 8. Monitor hemoglobin. Transfuse as needed. Rodrigo Frost JOB#: [id number] CC:
[2019-09-03] MEDS: Nitroglycerin 2% oint pkt TOPIC SCH ×3 (05:49→17:18)
--- NOTE | 2019-09-03 05:53 | NUR ---
NURSE NOTES: RESTED WELL, NO SIGNIFICANT CHANGE OF CONDITION NOTED THROUGHOUT THE NIGHT. SAFETY MAINTAINED. NAD.
--- NOTE | 2019-09-03 07:26 | NUR ---
HAND-OFF: Report given to LUIS FERNANDO [place].
[2019-09-03 08:00] VITALS: BP 102/63
--- NOTE | 2019-09-03 08:00 | NUR ---
NURSE NOTES: Received patient from Philippe Lei. Patient is awake, Tamazight speaking. Able to respond to simple questions appropriately. PEREZ with weakness. No complain of pain or discomfort at this time. VSS. Fall and aspiration precautions in place. Call gaona within patients reached and encouraged to use when assistance needed. Droplet precautions in placed and will maintain all throughout this shift. Will assumed care and attend to patients needs. Will continue plan of care.
[2019-09-03] MEDS: Docusate 250mg cap ORAL SCH (08:46)
[2019-09-03] MEDS: Tamsulosin 0.4mg cap ORAL SCH ×2 (08:47→17:18)
--- NOTE | 2019-09-03 10:14 | Infectious Diseases Prog Note ---
Assessment/Plan Assessment/Plan antibiotics : hydroxychloroquine A 1. COVID 19 pneumonia test + on 4.14.20, 4.16.20 2. Pseudomonas and Raoultella urinary tract infection. 3. Renal failure. 4. hypertension 5. cardiomyopathy P 1. Continue hydroxychloroquine 2 more days. 2. Continue Levaquin 3 more days. 3. Continue isolation Subjective ROS Limited/Unobtainable: Yes Allergies: Coded Allergies: No Known Allergies (Unverified , 06/05/19) Objective Vital Signs Last 24 Hour Vital Signs Date Time Temp Pulse Resp B/P (MAP) Pulse Ox O2 Delivery O2 Flow Rate FiO2 09/03/19 08:00 60 09/03/19 08:00 98.3 108 20 102/63 (76) 97 09/03/19 05:49 142/67 09/03/19 04:00 45 09/03/19 04:00 98.1 75 20 142/53 (82) 95 09/03/19 04:00 Room Air 09/03/19 00:00 54 09/03/19 00:00 Room Air 09/03/19 00:00 98.3 54 20 149/68 (95) 99 09/02/19 21:00 Room Air 09/02/19 20:00 97.9 58 20 141/61 (87) 99 09/02/19 20:00 59 09/02/19 17:52 123/63 09/02/19 16:00 98.1 67 20 123/63 (83) 97 09/02/19 16:00 67 09/02/19 12:00 112/63 09/02/19 12:00 68 09/02/19 12:00 97.7 68 20 112/63 (79) 97 Height (Feet): 5 Height (Inches): 6.00 Weight (Pounds): 107 Microbiology Date/Time Source Procedure Growth Status 09/01/19 16:15 Nasopharynx Coronavirus COVID-19 PCR (JOSÉ LUIS) - Final Complete Current Medications Medications (Trade) Dose Ordered Sig/Kristine Route PRN Reason Start Time Stop Time Status Last Admin Dose Admin Acetaminophen (Tylenol) 500 mg Q6H PRN ORAL MILD/TEMP 08/28/19 18:30 09/05/19 18:29 Amlodipine Besylate (Norvasc) 10 mg DAILY ORAL 09/03/19 09:00 5/13/20 08:59 Dextrose/ Electrolytes 1,000 ml @ 100 mls/hr Q10H IV 09/02/19 01:00 10/02/19 00:59 09/03/19 05:00 Docusate Sodium (Colace) 250 mg DAILY ORAL 08/29/19 09:00 09/05/19 08:59 09/03/19 08:46 Escitalopram Oxalate (Lexapro) 10 mg DAILY ORAL 08/29/19 09:00 09/17/19 08:59 09/03/19 08:48 Finasteride (Proscar) 5 mg DAILY ORAL 08/29/19 09:00 11/05/19 15:44 09/03/19 08:47 Hydralazine HCl (Apresoline) 10 mg Q8H PRN IV For High Blood Pressure 08/28/19 18:15 11/26/19 18:14 08/28/19 18:28 Hydroxychloroquine Sulfate (Plaquenil) 200 mg BID ORAL 09/02/19 09:00 09/05/19 18:01 09/03/19 08:47 Levofloxacin (Levaquin) 250 mg DAILY ORAL 09/01/19 09:00 09/08/19 08:59 09/03/19 08:48 Magnesium Hydroxide (Mom) 30 ml TIDPRN PRN ORAL Constipation 08/29/19 05:45 09/18/19 05:44 Nitroglycerin (Nitro-Bid) 1 inch Q6HR@0600,1200,1800 TOPIC 08/29/19 06:00 09/11/19 06:59 09/03/19 05:49 Pantoprazole (Protonix) 40 mg DAILY ORAL 08/29/19 09:00 09/25/19 08:59 09/03/19 08:47 Risperidone (RisperDAL) 1 mg DAILY ORAL 08/29/19 09:00 10/09/19 15:59 09/03/19 08:48 Risperidone (RisperDAL) 2 mg BEDTIME ORAL 08/28/19 21:00 09/29/19 20:59 09/02/19 20:27 Sennosides (Senokot) 8.6 mg BEDTIME ORAL 08/28/19 21:00 09/05/19 20:59 09/02/19 20:27 Tamsulosin HCl (Flomax) 0.4 mg BID ORAL 08/29/19 09:00 09/05/19 20:59 09/03/19 08:47 Gonzalez Stephens MD Sep 03, 2019 10:14
--- NOTE | 2019-09-03 10:18 | NUR ---
NURSE NOTES: Dr. Stephens made aware patients 2nd Covid swab is positive. no new orders received.
--- NOTE | 2019-09-03 10:48 | Urology Progress Note ---
Assessment/Plan Status: stable, progressing, not improved Assessment/Plan: 1. Gross hematuria hx, presumably secondary to Doshi trauma, resolved. 2. BPH. 3. Urinary retention. 4. Neurogenic bladder. 5. Pyuria. 6. Proteinuria. 7. Renal insufficiency, which appears to be acute on chronic. 8. Rule out urethral stricture. monitor clinically doshi out, voiding/incontinent cont flomax and proscar on abx off anticoagulation, resume? restraints PRN cysto at some point monitor PVR and reinsert doshi PRN renal imaging? COVID (+) Subjective Allergies: Coded Allergies: No Known Allergies (Unverified , 06/05/19) Subjective all noted, confused, doshi out, incontinent, condom cath Objective Last 24 Hour Vital Signs Date Time Temp Pulse Resp B/P (MAP) Pulse Ox O2 Delivery O2 Flow Rate FiO2 09/03/19 09:00 Room Air 09/03/19 08:00 60 09/03/19 08:00 98.3 108 20 102/63 (76) 97 09/03/19 05:49 142/67 09/03/19 04:00 45 09/03/19 04:00 98.1 75 20 142/53 (82) 95 09/03/19 04:00 Room Air 09/03/19 00:00 54 09/03/19 00:00 Room Air 09/03/19 00:00 98.3 54 20 149/68 (95) 99 09/02/19 21:00 Room Air 09/02/19 20:00 97.9 58 20 141/61 (87) 99 09/02/19 20:00 59 09/02/19 17:52 123/63 09/02/19 16:00 98.1 67 20 123/63 (83) 97 09/02/19 16:00 67 09/02/19 12:00 112/63 09/02/19 12:00 68 09/02/19 12:00 97.7 68 20 112/63 (79) 97 Intake and Output 09/02/19 09/03/19 19:00 07:00 Intake Total 1120 ml Output Total 200 ml Balance 920 ml Intake Oral 120 ml IV Total 1000 ml Output Urine Total 200 ml # Voids 3 Microbiology Date/Time Source Procedure Growth Status 09/01/19 16:15 Nasopharynx Coronavirus COVID-19 PCR (JOSÉ LUIS) - Final Complete 08/28/19 12:31 Indwelling Cath Urine Culture - Final Pseudomonas Aeruginosa Raoultella Planticola Complete 08/06/19 04:45 Rectum VRE Culture - Final NO VANCOMYCIN RESISTANT ENTEROCOCCUS ... Complete Current Medications Medications (Trade) Dose Ordered Sig/Kristine Route PRN Reason Start Time Stop Time Status Last Admin Dose Admin Acetaminophen (Tylenol) 500 mg Q6H PRN ORAL MILD/TEMP 08/28/19 18:30 09/05/19 18:29 Amlodipine Besylate (Norvasc) 10 mg DAILY ORAL 09/03/19 09:00 09/28/19 08:59 Dextrose/ Electrolytes 1,000 ml @ 100 mls/hr Q10H IV 09/02/19 01:00 10/02/19 00:59 09/03/19 05:00 Docusate Sodium (Colace) 250 mg DAILY ORAL 08/29/19 09:00 09/05/19 08:59 09/03/19 08:46 Escitalopram Oxalate (Lexapro) 10 mg DAILY ORAL 08/29/19 09:00 09/17/19 08:59 09/03/19 08:48 Finasteride (Proscar) 5 mg DAILY ORAL 08/29/19 09:00 11/05/19 15:44 09/03/19 08:47 Hydralazine HCl (Apresoline) 10 mg Q8H PRN IV For High Blood Pressure 08/28/19 18:15 11/26/19 18:14 08/28/19 18:28 Hydroxychloroquine Sulfate (Plaquenil) 200 mg BID ORAL 09/02/19 09:00 09/05/19 18:01 09/03/19 08:47 Levofloxacin (Levaquin) 250 mg DAILY ORAL 09/01/19 09:00 09/08/19 08:59 09/03/19 08:48 Magnesium Hydroxide (Mom) 30 ml TIDPRN PRN ORAL Constipation 08/29/19 05:45 09/18/19 05:44 Nitroglycerin (Nitro-Bid) 1 inch Q6HR@0600,1200,1800 TOPIC 08/29/19 06:00 09/11/19 06:59 09/03/19 05:49 Pantoprazole (Protonix) 40 mg DAILY ORAL 08/29/19 09:00 09/25/19 08:59 09/03/19 08:47 Risperidone (RisperDAL) 1 mg DAILY ORAL 08/29/19 09:00 10/09/19 15:59 09/03/19 08:48 Risperidone (RisperDAL) 2 mg BEDTIME ORAL 08/28/19 21:00 09/29/19 20:59 09/02/19 20:27 Sennosides (Senokot) 8.6 mg BEDTIME ORAL 08/28/19 21:00 09/05/19 20:59 09/02/19 20:27 Tamsulosin HCl (Flomax) 0.4 mg BID ORAL 08/29/19 09:00 09/05/19 20:59 09/03/19 08:47 Height (Feet): 5 Height (Inches): 6.00 Weight (Pounds): 107 Objective exam stable abdomen soft urine grossly yellow Bamshad,Miki Perry MD Sep 03, 2019 10:48
[2019-09-03 11:34] VITALS: BP 141/58
--- NOTE | 2019-09-03 12:04 | Nephrology Progress Note ---
Assessment/Plan Problem List: (1) Renal failure (ARF), acute on chronic Assessment: Serum creatinine stabilizing (2) Falls frequently (3) UTI (urinary tract infection) Assessment: and hematuria (4) Anemia (5) Dehydration (6) Encephalopathy due to metabolic factor or toxin Assessment Frequent falls Acute renal failure with underlying dehydration Anemia, underlying etiology unclear UTI (urinary tract infection) Toxic metabolic encephalopathy Plan Patient now COVID-19 positive Start D5W for hypernatremia P.o. intake variable Oral potassium supplement as needed Discharge planning in process previously: Increase Flomax to twice daily Correct electrolytes as needed Transfusion as needed 2D echocardiogram ejection fraction 60% Kidney ultrasound pending results Monitor renal parameters Avoid nephrotoxics Antibiotics for UTI Continue per consultants Subjective ROS Limited/Unobtainable: No Constitutional: Reports: malaise, weakness Objective Objective Last 24 Hour Vital Signs Date Time Temp Pulse Resp B/P (MAP) Pulse Ox O2 Delivery O2 Flow Rate FiO2 09/03/19 11:34 97.3 62 18 141/58 (85) 98 09/03/19 09:00 Room Air 09/03/19 08:00 60 09/03/19 08:00 98.3 108 20 102/63 (76) 97 09/03/19 05:49 142/67 09/03/19 04:00 45 09/03/19 04:00 98.1 75 20 142/53 (82) 95 09/03/19 04:00 Room Air 09/03/19 00:00 54 09/03/19 00:00 Room Air 09/03/19 00:00 98.3 54 20 149/68 (95) 99 09/02/19 21:00 Room Air 09/02/19 20:00 97.9 58 20 141/61 (87) 99 09/02/19 20:00 59 09/02/19 17:52 123/63 09/02/19 16:00 98.1 67 20 123/63 (83) 97 09/02/19 16:00 67 Intake and Output 09/02/19 09/03/19 19:00 07:00 Intake Total 1120 ml Output Total 200 ml Balance 920 ml Intake Oral 120 ml IV Total 1000 ml Output Urine Total 200 ml # Voids 3 No labs drawn today Height (Feet): 5 Height (Inches): 6.00 Weight (Pounds): 107 General Appearance: no apparent distress Objective No change Juan Jade MD Sep 03, 2019 12:04
--- NOTE | 2019-09-03 12:36 | Pulmonology Progress Note ---
Assessment/Plan Assessment/Plan IMPRESSION: 1. Pleural effusions, small bilateral. 2. Atelectasis. 3. Pulmonary edema, questionable. 4. Hypertension. 5. Hyperlipidemia. 6. positive COVID 19 7. UTI DISCUSSION: The patient is saturating well on room air I will follow as personal service representative. No new recommendations Kimani Hahn M.D. Subjective Interval Events: None new Constitutional: Reports: no symptoms HEENT: Repors: no symptoms Respiratory: Reports: no symptoms Cardiovascular: Reports: no symptoms Gastrointestinal/Abdominal: Reports: no symptoms Genitourinary: Reports: no symptoms Allergies: Coded Allergies: No Known Allergies (Unverified , 06/05/19) Objective Last 24 Hour Vital Signs Date Time Temp Pulse Resp B/P (MAP) Pulse Ox O2 Delivery O2 Flow Rate FiO2 09/03/19 12:11 141/58 09/03/19 11:34 97.3 62 18 141/58 (85) 98 09/03/19 09:00 Room Air 09/03/19 08:00 60 09/03/19 08:00 98.3 108 20 102/63 (76) 97 09/03/19 05:49 142/67 09/03/19 04:00 45 09/03/19 04:00 98.1 75 20 142/53 (82) 95 09/03/19 04:00 Room Air 09/03/19 00:00 54 09/03/19 00:00 Room Air 09/03/19 00:00 98.3 54 20 149/68 (95) 99 09/02/19 21:00 Room Air 09/02/19 20:00 97.9 58 20 141/61 (87) 99 09/02/19 20:00 59 09/02/19 17:52 123/63 09/02/19 16:00 98.1 67 20 123/63 (83) 97 09/02/19 16:00 67 Intake and Output 09/02/19 09/03/19 19:00 07:00 Intake Total 1120 ml Output Total 200 ml Balance 920 ml Intake Oral 120 ml IV Total 1000 ml Output Urine Total 200 ml # Voids 3 General Appearance: no acute distress HEENT: normocephalic Respiratory/Chest: chest wall non-tender Cardiovascular: normal peripheral pulses Abdomen: normal bowel sounds Microbiology Date/Time Source Procedure Growth Status 09/01/19 16:15 Nasopharynx Coronavirus COVID-19 PCR (JOSÉ LUIS) - Final Complete Current Medications Medications (Trade) Dose Ordered Sig/Kristine Route PRN Reason Start Time Stop Time Status Last Admin Dose Admin Acetaminophen (Tylenol) 500 mg Q6H PRN ORAL MILD/TEMP 08/28/19 18:30 09/05/19 18:29 Amlodipine Besylate (Norvasc) 10 mg DAILY ORAL 09/03/19 09:00 09/28/19 08:59 Dextrose/ Electrolytes 1,000 ml @ 100 mls/hr Q10H IV 09/02/19 01:00 10/02/19 00:59 09/03/19 05:00 Docusate Sodium (Colace) 250 mg DAILY ORAL 08/29/19 09:00 09/05/19 08:59 09/03/19 08:46 Escitalopram Oxalate (Lexapro) 10 mg DAILY ORAL 08/29/19 09:00 09/17/19 08:59 09/03/19 08:48 Finasteride (Proscar) 5 mg DAILY ORAL 08/29/19 09:00 11/05/19 15:44 09/03/19 08:47 Hydralazine HCl (Apresoline) 10 mg Q8H PRN IV For High Blood Pressure 08/28/19 18:15 11/26/19 18:14 08/28/19 18:28 Hydroxychloroquine Sulfate (Plaquenil) 200 mg BID ORAL 09/02/19 09:00 09/05/19 18:01 09/03/19 08:47 Levofloxacin (Levaquin) 250 mg DAILY ORAL 09/01/19 09:00 09/08/19 08:59 09/03/19 08:48 Magnesium Hydroxide (Mom) 30 ml TIDPRN PRN ORAL Constipation 08/29/19 05:45 09/18/19 05:44 Nitroglycerin (Nitro-Bid) 1 inch Q6HR@0600,1200,1800 TOPIC 08/29/19 06:00 09/11/19 06:59 09/03/19 12:11 Pantoprazole (Protonix) 40 mg DAILY ORAL 08/29/19 09:00 09/25/19 08:59 09/03/19 08:47 Risperidone (RisperDAL) 1 mg DAILY ORAL 08/29/19 09:00 10/09/19 15:59 09/03/19 08:48 Risperidone (RisperDAL) 2 mg BEDTIME ORAL 08/28/19 21:00 09/29/19 20:59 09/02/19 20:27 Sennosides (Senokot) 8.6 mg BEDTIME ORAL 08/28/19 21:00 09/05/19 20:59 09/02/19 20:27 Tamsulosin HCl (Flomax) 0.4 mg BID ORAL 08/29/19 09:00 09/05/19 20:59 09/03/19 08:47 Kimani Hahn MD Sep 03, 2019 12:36
--- NOTE | 2019-09-03 13:02 | General Progress Note ---
Assessment/Plan Problem List: (1) CHF (congestive heart failure) ICD Codes: I50.9 - Heart failure, unspecified SNOMED: 98022965 (2) Renal failure (ARF), acute on chronic ICD Codes: N17.9 - Acute kidney failure, unspecified; N18.9 - Chronic kidney disease, unspecified SNOMED: 822129003 (3) Encephalopathy due to metabolic factor or toxin SNOMED: 804369435 (4) Gross hematuria ICD Codes: R31.0 - Gross hematuria SNOMED: 877043211 (5) Falls frequently ICD Codes: R29.6 - Repeated falls SNOMED: 128329649 (6) Dehydration ICD Codes: E86.0 - Dehydration SNOMED: 20084320 (7) UTI (urinary tract infection) ICD Codes: N39.0 - Urinary tract infection, site not specified SNOMED: 45005982 (8) Anemia ICD Codes: D64.9 - Anemia, unspecified SNOMED: 368104284 Status: stable, progressing, not improved Assessment/Plan: o2 as needed Hydroxychloroquine treatment per ID recommendations for COVID-19 Fluids. monitor labs Anxiolytics as needed. Continue blood pressure treatment. Avoid aggressive blood pressure control due to fall risk. DVT and stress ulcer prophylaxis. Discharge planning to custodial facility on hold for now Subjective ROS Limited/Unobtainable: Yes Constitutional: Reports: malaise, weakness HEENT: Reports: no symptoms Cardiovascular: Reports: no symptoms Respiratory: Reports: cough Gastrointestinal/Abdominal: Reports: poor appetite, poor fluid intake Genitourinary: Reports: no symptoms Neurologic/Psychiatric: Reports: depressed Endocrine: Reports: no symptoms Hematologic/Lymphatic: Reports: no symptoms Allergies: Coded Allergies: No Known Allergies (Unverified , 06/05/19) All Systems: reviewed and negative except above Subjective There have been no overnight events. Patient remains confused. Currently on treatment with hydroxychloroquine. Poor p.o. intake. No fevers noted. Labs reviewed. Objective Last 24 Hour Vital Signs Date Time Temp Pulse Resp B/P (MAP) Pulse Ox O2 Delivery O2 Flow Rate FiO2 09/03/19 12:11 141/58 09/03/19 11:34 97.3 62 18 141/58 (85) 98 09/03/19 09:00 Room Air 09/03/19 08:00 60 09/03/19 08:00 98.3 108 20 102/63 (76) 97 09/03/19 05:49 142/67 09/03/19 04:00 45 09/03/19 04:00 98.1 75 20 142/53 (82) 95 09/03/19 04:00 Room Air 09/03/19 00:00 54 09/03/19 00:00 Room Air 09/03/19 00:00 98.3 54 20 149/68 (95) 99 09/02/19 21:00 Room Air 09/02/19 20:00 97.9 58 20 141/61 (87) 99 09/02/19 20:00 59 09/02/19 17:52 123/63 09/02/19 16:00 98.1 67 20 123/63 (83) 97 09/02/19 16:00 67 Intake and Output 09/02/19 09/03/19 19:00 07:00 Intake Total 1120 ml Output Total 200 ml Balance 920 ml Intake Oral 120 ml IV Total 1000 ml Output Urine Total 200 ml # Voids 3 Height (Feet): 5 Height (Inches): 6.00 Weight (Pounds): 107 Objective General Appearance: WD/WN, alert, confused Neck: supple Cardiovascular: regular rhythm Respiratory/Chest: rhonchi - bilaterally Abdomen: normal bowel sounds, non tender, soft, no organomegaly, no mass Edema: no edema noted Arm (L), no edema noted Arm (R), no edema noted Leg (L), no edema noted Leg (R), no edema noted Pedal (L), no edema noted Pedal (R), no edema noted Generalized Neurologic: jackspooler II-XII grossly normal, alert, responsive Iggy Echavarria MD Sep 03, 2019 13:02
[2019-09-03 16:00] VITALS: BP 131/54
--- NOTE | 2019-09-03 19:18 | NUR ---
HAND-OFF: Report given to Joaquim Vieyra. Patient stable plain of care endorsed.
--- NOTE | 2019-09-03 19:50 | NUR ---
NURSE NOTES: Received pt from LUIS FERNANDO [place]. Pt awake, alert, and talkative. Bed in lowest position. Call light within reach. Will continue to monitor.
[2019-09-03 20:00] VITALS: BP 131/49
[2019-09-03] MEDS: Sennosides 8.6mg tab ORAL SCH (21:00)
[2019-09-04] VITALS (7 sets, daily range): BP systolic 95–185; BP diastolic 39–75
--- NOTE | 2019-09-04 01:59 | Progress Note ---
DATE: 09/03/2019 SUBJECTIVE: The patient is COVID-19, in bed, has episodes of cough, manageable, has anxiety. MENTAL STATUS EXAMINATION: Confused and disoriented. Mood is anxious. Affect is flat. Thought process is concrete. Thought content, no suicidal or homicidal ideation. Cognition is impaired. Insight and judgment, impaired. ASSESSMENT: 1. Dementia with behavior disturbance. 2. Psychotic disorder. 3. COVID-19, on hydroxychloroquine for COVID treatment, therefore, we will discontinue all psychotropic medications including Lexapro and risperidone as it may increase the risk of QT prolongation. 4. We will consider benzodiazepine if the behavior is returned. 5. Discussed with the primary team. Loco Luu M.D. DR: Ingrid JOB#: [id number] CC:
--- NOTE | 2019-09-04 04:29 | Progress Note ---
DATE: 09/03/2019 SUBJECTIVE: The patient is on day 2 of hydroxychloroquine therapy with COVID-19 pneumonia noted. Monitored rhythm, junctional. OBJECTIVE: VITALS: Blood pressure 141/58, pulse 62, respirations 18. No QTc prolongation noted today. LUNGS: Bilateral breath sounds. Rhonchi rare. CARDIAC: Regular rhythm and rate. Normal S1, S2. ABDOMEN: Soft. EXTREMITIES: Trace edema. Moderate confusion. IMPRESSION: 1. COVID-19 pneumonia. 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 4. Hypertensive heart disease. 5. Valvular cardiomyopathy. 6. Severe pulmonary hypertension. 7. Dementia with agitation and psychosis. PLAN: 1. Discussed with psychiatrist. Discontinuation of Risperdal planned while on hydroxychloroquine due to increased risk of cardiac arrhythmias and QT prolongation. 2. May need p.r.n. doses of benzodiazepines for agitation. We will continue to monitor closely both clinical and telemetry observation and adjustment of therapies accordingly. Gamaliel Salas M.D. DR: Tyree JOB#: [id number] CC:
[2019-09-04] MEDS: Nitroglycerin 2% oint pkt TOPIC SCH ×3 (06:00→17:19)
--- NOTE | 2019-09-04 07:48 | NUR ---
HAND-OFF: Report given to LUIS FERNANDO [place]. Pt stable.
--- NOTE | 2019-09-04 08:05 | NUR ---
NURSE NOTES: Received patient from Joaquim Vieyra. Patient is awake, confused but verbally responsive. Open eyes to voice follow simple commands. No complain of pain or discomfort at this time. Right forearm 22 gauge IV saline lock. Fall/Aspirations precautions in place. Call gaona within patients reached. Condom catheter draining yellow urine. Contact/droplet precautions in place. Will continue plan of care.
[2019-09-04] MEDS: Docusate 250mg cap ORAL SCH (09:07)
[2019-09-04] MEDS: Tamsulosin 0.4mg cap ORAL SCH ×2 (09:07→17:18)
--- NOTE | 2019-09-04 09:11 | Nephrology Progress Note ---
Assessment/Plan Problem List: (1) Renal failure (ARF), acute on chronic Assessment: Serum creatinine stabilizing (2) Falls frequently (3) UTI (urinary tract infection) Assessment: and hematuria (4) Anemia (5) Dehydration (6) Encephalopathy due to metabolic factor or toxin Assessment Frequent falls Acute renal failure with underlying dehydration Anemia, underlying etiology unclear UTI (urinary tract infection) Toxic metabolic encephalopathy Plan Patient now COVID-19 positive Start D5W for hypernatremia P.o. intake variable Oral potassium supplement as needed Discharge planning in process previously: Increase Flomax to twice daily Correct electrolytes as needed Transfusion as needed 2D echocardiogram ejection fraction 60% Kidney ultrasound pending results Monitor renal parameters Avoid nephrotoxics Antibiotics for UTI Continue per consultants Subjective ROS Limited/Unobtainable: No Constitutional: Reports: malaise, weakness Objective Objective Last 24 Hour Vital Signs Date Time Temp Pulse Resp B/P (MAP) Pulse Ox O2 Delivery O2 Flow Rate FiO2 09/04/19 08:00 97.8 59 18 128/55 (79) 96 09/04/19 06:00 147/53 09/04/19 05:45 147/53 (84) 09/04/19 04:00 47 09/04/19 04:00 98.2 72 18 185/72 (109) 96 09/04/19 00:00 48 09/04/19 00:00 97.6 51 16 95/39 (57) 96 09/03/19 21:00 Room Air 09/03/19 20:00 97.9 57 18 131/49 (76) 97 09/03/19 17:18 131/54 09/03/19 16:00 97.6 79 20 131/54 (79) 98 09/03/19 16:00 71 09/03/19 12:11 141/58 09/03/19 12:00 56 09/03/19 11:34 97.3 62 18 141/58 (85) 98 Intake and Output 09/03/19 09/04/19 19:00 07:00 Output Total 700 ml Balance -700 ml Output Urine Total 700 ml Today's labs pending Height (Feet): 5 Height (Inches): 6.00 Weight (Pounds): 107 General Appearance: no apparent distress Respiratory/Chest: decreased breath sounds Abdomen: soft Objective No change Juan Jade MD Sep 04, 2019 09:11
--- NOTE | 2019-09-04 09:43 | General Progress Note ---
Assessment/Plan Problem List: (1) CHF (congestive heart failure) ICD Codes: I50.9 - Heart failure, unspecified SNOMED: 30531281 (2) Renal failure (ARF), acute on chronic ICD Codes: N17.9 - Acute kidney failure, unspecified; N18.9 - Chronic kidney disease, unspecified SNOMED: 355173664 (3) Encephalopathy due to metabolic factor or toxin SNOMED: 044225652 (4) Gross hematuria ICD Codes: R31.0 - Gross hematuria SNOMED: 526026323 (5) Falls frequently ICD Codes: R29.6 - Repeated falls SNOMED: 681991402 (6) Dehydration ICD Codes: E86.0 - Dehydration SNOMED: 86400107 (7) UTI (urinary tract infection) ICD Codes: N39.0 - Urinary tract infection, site not specified SNOMED: 08324100 (8) Anemia ICD Codes: D64.9 - Anemia, unspecified SNOMED: 723646172 Status: stable, progressing, not improved Assessment/Plan: o2 as needed. currently stable on room air. Hydroxychloroquine treatment per ID recommendations for COVID-19 Fluids. monitor labs Anxiolytics as needed. Continue blood pressure treatment. DVT and stress ulcer prophylaxis. [facility] on [facility] for now Subjective ROS Limited/Unobtainable: Yes Constitutional: Reports: malaise, weakness HEENT: Reports: no symptoms Cardiovascular: Reports: no symptoms Respiratory: Reports: no symptoms Gastrointestinal/Abdominal: Reports: poor appetite, poor fluid intake Genitourinary: Reports: no symptoms Neurologic/Psychiatric: Reports: anxiety, emotional problems, pre-existing deficit Endocrine: Reports: no symptoms Hematologic/Lymphatic: Reports: anemia Allergies: Coded Allergies: No Known Allergies (Unverified , 06/05/19) All Systems: reviewed and negative except above Subjective There have been no overnight events. Patient remains confused at baseline. Currently on treatment with hydroxychloroquine. o2 sats stable on room air. Poor p.o. intake. No fevers noted. Labs pending Objective Last 24 Hour Vital Signs Date Time Temp Pulse Resp B/P (MAP) Pulse Ox O2 Delivery O2 Flow Rate FiO2 09/04/19 09:00 59 128/55 09/04/19 08:00 97.8 59 18 128/55 (79) 96 4/19/20 06:00 147/53 09/04/19 05:45 147/53 (84) 09/04/19 04:00 47 09/04/19 04:00 98.2 72 18 185/72 (109) 96 09/04/19 00:00 48 09/04/19 00:00 97.6 51 16 95/39 (57) 96 09/03/19 21:00 Room Air 09/03/19 20:00 97.9 57 18 131/49 (76) 97 09/03/19 17:18 131/54 09/03/19 16:00 97.6 79 20 131/54 (79) 98 09/03/19 16:00 71 09/03/19 12:11 141/58 09/03/19 12:00 56 09/03/19 11:34 97.3 62 18 141/58 (85) 98 Intake and Output 09/03/19 09/04/19 19:00 07:00 Output Total 700 ml Balance -700 ml Output Urine Total 700 ml Height (Feet): 5 Height (Inches): 6.00 Weight (Pounds): 107 Objective General Appearance: WD/WN, alert, confused Neck: supple Cardiovascular: regular rhythm Respiratory/Chest: rhonchi - bilaterally Abdomen: normal bowel sounds, non tender, soft, no organomegaly, no mass Edema: no edema noted Arm (L), no edema noted Arm (R), no edema noted Leg (L), no edema noted Leg (R), no edema noted Pedal (L), no edema noted Pedal (R), no edema noted Generalized Neurologic: institute scientist II-XII grossly normal, alert, responsive Iggy Echavarria MD Sep 04, 2019 09:43
--- NOTE | 2019-09-04 10:12 | Pulmonology Progress Note ---
Assessment/Plan Assessment/Plan IMPRESSION: 1. Pleural effusions, small bilateral. 2. Atelectasis. 3. Pulmonary edema, questionable. 4. Hypertension. 5. Hyperlipidemia. 6. positive COVID 19 7. UTI DISCUSSION: The patient is saturating well on room air I will follow as siebel solution architect. No new recommendations Kimani Hahn M.D. Subjective Interval Events: None new Constitutional: Reports: no symptoms HEENT: Repors: no symptoms Respiratory: Reports: no symptoms Cardiovascular: Reports: no symptoms Allergies: Coded Allergies: No Known Allergies (Unverified , 06/05/19) Objective Last 24 Hour Vital Signs Date Time Temp Pulse Resp B/P (MAP) Pulse Ox O2 Delivery O2 Flow Rate FiO2 09/04/19 09:00 59 128/55 09/04/19 08:00 97.8 59 18 128/55 (79) 96 09/04/19 06:00 147/53 09/04/19 05:45 147/53 (84) 09/04/19 04:00 47 09/04/19 04:00 98.2 72 18 185/72 (109) 96 09/04/19 00:00 48 09/04/19 00:00 97.6 51 16 95/39 (57) 96 09/03/19 21:00 Room Air 09/03/19 20:00 97.9 57 18 131/49 (76) 97 09/03/19 17:18 131/54 09/03/19 16:00 97.6 79 20 131/54 (79) 98 09/03/19 16:00 71 09/03/19 12:11 141/58 09/03/19 12:00 56 09/03/19 11:34 97.3 62 18 141/58 (85) 98 Intake and Output 09/03/19 09/04/19 19:00 07:00 Output Total 700 ml Balance -700 ml Output Urine Total 700 ml General Appearance: no acute distress HEENT: normocephalic Respiratory/Chest: chest wall non-tender Cardiovascular: normal peripheral pulses Abdomen: normal bowel sounds Microbiology Date/Time Source Procedure Growth Status 09/01/19 16:15 Nasopharynx Coronavirus COVID-19 PCR ([facility]) - Final Complete Current Medications Medications (Trade) Dose Ordered Sig/Kristine Route PRN Reason Start Time Stop Time Status Last Admin Dose Admin Acetaminophen (Tylenol) 500 mg Q6H PRN ORAL MILD/TEMP 08/28/19 18:30 09/05/19 18:29 Amlodipine Besylate (Norvasc) 10 mg DAILY ORAL 09/03/19 09:00 09/28/19 08:59 Docusate Sodium (Colace) 250 mg DAILY ORAL 08/29/19 09:00 09/05/19 08:59 09/04/19 09:07 Finasteride (Proscar) 5 mg DAILY ORAL 08/29/19 09:00 11/05/19 15:44 09/04/19 09:07 Hydralazine HCl (Apresoline) 10 mg Q8H PRN IV For High Blood Pressure 08/28/19 18:15 11/26/19 18:14 08/28/19 18:28 Hydroxychloroquine Sulfate (Plaquenil) 200 mg BID ORAL 09/02/19 09:00 09/05/19 18:01 09/04/19 09:08 Levofloxacin (Levaquin) 250 mg DAILY ORAL 09/01/19 09:00 09/08/19 08:59 09/04/19 09:07 Magnesium Hydroxide (Mom) 30 ml TIDPRN PRN ORAL Constipation 08/29/19 05:45 09/18/19 05:44 Nitroglycerin (Nitro-Bid) 1 inch Q6HR@0600,1200,1800 TOPIC 08/29/19 06:00 09/11/19 06:59 09/04/19 06:00 Pantoprazole (Protonix) 40 mg DAILY ORAL 08/29/19 09:00 09/25/19 08:59 09/04/19 09:07 Sennosides (Senokot) 8.6 mg BEDTIME ORAL 08/28/19 21:00 09/05/19 20:59 09/02/19 20:27 Tamsulosin HCl (Flomax) 0.4 mg BID ORAL 08/29/19 09:00 09/05/19 20:59 09/04/19 09:07 Kimani Hahn MD Sep 04, 2019 10:12
--- NOTE | 2019-09-04 10:38 | Urology Progress Note ---
Assessment/Plan Status: stable, progressing, not improved Assessment/Plan: 1. Gross hematuria hx, presumably secondary to Doshi trauma, resolved. 2. BPH. 3. Urinary retention. 4. Neurogenic bladder. 5. Pyuria. 6. Proteinuria. 7. Renal insufficiency, which appears to be acute on chronic. 8. Rule out urethral stricture. monitor clinically doshi out, voiding/incontinent cont flomax and proscar on abx off anticoagulation, resume? restraints PRN cysto at some point monitor PVR and reinsert doshi PRN renal imaging? COVID (+) Subjective Allergies: Coded Allergies: No Known Allergies (Unverified , 06/05/19) Subjective all noted, confused, doshi out, incontinent, condom cath Objective Last 24 Hour Vital Signs Date Time Temp Pulse Resp B/P (MAP) Pulse Ox O2 Delivery O2 Flow Rate FiO2 09/04/19 09:00 59 128/55 09/04/19 09:00 Room Air 09/04/19 08:00 50 09/04/19 08:00 97.8 59 18 128/55 (79) 96 09/04/19 06:00 147/53 09/04/19 05:45 147/53 (84) 09/04/19 04:00 47 09/04/19 04:00 98.2 72 18 185/72 (109) 96 09/04/19 00:00 48 09/04/19 00:00 97.6 51 16 95/39 (57) 96 09/03/19 21:00 Room Air 09/03/19 20:00 97.9 57 18 131/49 (76) 97 09/03/19 17:18 131/54 09/03/19 16:00 97.6 79 20 131/54 (79) 98 09/03/19 16:00 71 09/03/19 12:11 141/58 09/03/19 12:00 56 09/03/19 11:34 97.3 62 18 141/58 (85) 98 Intake and Output 09/03/19 09/04/19 19:00 07:00 Output Total 700 ml Balance -700 ml Output Urine Total 700 ml Microbiology Date/Time Source Procedure Growth Status 09/01/19 16:15 Nasopharynx Coronavirus COVID-19 PCR ([facility]) - Final Complete 08/28/19 12:31 Indwelling Cath Urine Culture - Final Pseudomonas Aeruginosa Raoultella Planticola Complete 08/06/19 04:45 Rectum VRE Culture - Final NO VANCOMYCIN RESISTANT ENTEROCOCCUS ... Complete Current Medications Medications (Trade) Dose Ordered Sig/Kristine Route PRN Reason Start Time Stop Time Status Last Admin Dose Admin Acetaminophen (Tylenol) 500 mg Q6H PRN ORAL MILD/TEMP 08/28/19 18:30 09/05/19 18:29 Amlodipine Besylate (Norvasc) 10 mg DAILY ORAL 09/03/19 09:00 09/28/19 08:59 Docusate Sodium (Colace) 250 mg DAILY ORAL 08/29/19 09:00 09/05/19 08:59 09/04/19 09:07 Finasteride (Proscar) 5 mg DAILY ORAL 08/29/19 09:00 11/05/19 15:44 09/04/19 09:07 Hydralazine HCl (Apresoline) 10 mg Q8H PRN IV For High Blood Pressure 08/28/19 18:15 11/26/19 18:14 08/28/19 18:28 Hydroxychloroquine Sulfate (Plaquenil) 200 mg BID ORAL 09/02/19 09:00 09/05/19 18:01 09/04/19 09:08 Levofloxacin (Levaquin) 250 mg DAILY ORAL 09/01/19 09:00 09/08/19 08:59 09/04/19 09:07 Magnesium Hydroxide (Mom) 30 ml TIDPRN PRN ORAL Constipation 08/29/19 05:45 09/18/19 05:44 Nitroglycerin (Nitro-Bid) 1 inch Q6HR@0600,1200,1800 TOPIC 08/29/19 06:00 09/11/19 06:59 09/04/19 06:00 Pantoprazole (Protonix) 40 mg DAILY ORAL 08/29/19 09:00 09/25/19 08:59 09/04/19 09:07 Sennosides (Senokot) 8.6 mg BEDTIME ORAL 08/28/19 21:00 09/05/19 20:59 09/02/19 20:27 Tamsulosin HCl (Flomax) 0.4 mg BID ORAL 08/29/19 09:00 09/05/19 20:59 09/04/19 09:07 Laboratory Tests 09/04/19 09:57: Sodium Level [Pending], Potassium Level [Pending], Chloride Level [Pending], Carbon Dioxide Level [Pending], Blood Urea Nitrogen [Pending], Creatinine [ Pending], Estimat Glomerular Filtration Rate [Pending], Glucose Level [Pending] , Calcium Level [Pending] Height (Feet): 5 Height (Inches): 6.00 Weight (Pounds): 107 Objective exam stable abdomen soft urine grossly yellow Miki Calzada MD Sep 04, 2019 10:38
[2019-09-04 10:50] LABS: ANION GAP 11 mmol/L (5-15); BLOOD UREA NITROGEN 24 mg/dL (7-18); CALCIUM 9.4 MG/DL (8.5-10.1); CARBON DIOXIDE 22 MMOL/L (21-32); CHLORIDE 110 MMOL/L (98-107); CREATININE 1.8 MG/DL (0.55-1.30); SODIUM 143 MMOL/L (136-145)
--- NOTE | 2019-09-04 19:15 | NUR ---
NURSE NOTES: Received report from LUIS FERNANDO [place]. Patient is awake, lying in semi hampton's; resting comfortably. A/Ox1. Primarily Macedonian speaking. Denies pain at this time. No signs of acute distress noted. Checked IV site and flushed. No erythema, bleeding or infiltration noted. Bed at lowest position, brakes on, bed alarm on, siderailsx3. Call light within reach. Will continue to monitor.
--- NOTE | 2019-09-04 19:34 | NUR ---
HAND-OFF: Report given to Joaquim Castillo. Plan of care endorsed.
[2019-09-04] MEDS: Sennosides 8.6mg tab ORAL SCH (20:16)
[2019-09-05] VITALS: BP 158/61
--- NOTE | 2019-09-05 01:22 | NUR ---
NURSE NOTES: Resting throughout the night. No significant change of condition noted. Will continue to monitor.
--- NOTE | 2019-09-05 02:30 | Progress Note ---
SUBJECTIVE: The patient in isolation for COVID-19. The patient has anxiety, however, manageable. All the psychotropic medications have been stopped due to acute interaction with the hydroxychloroquine manageable. MENTAL STATUS EXAMINATION: Awake, confused. Mood is anxious. Affect is flat. Thought process, there is a paucity of thought content. Thought content, no suicidal ideation. Cognition is impaired. ASSESSMENT: Stable. PLAN: Continue to monitor symptoms. Loco Luu M.D. DR: JOSE DE JESUS JOB#: [id number] CC:
[2019-09-05 04:00] VITALS: BP 129/89
[2019-09-05] MEDS: Nitroglycerin 2% oint pkt TOPIC SCH ×3 (05:34→18:12)
[2019-09-05 06:13] LABS: HEMATOCRIT 26.2 % (42.0-52.0); HEMOGLOBIN 8.9 G/DL (14.2-18.0); MEAN CORPUSCULAR VOLUME 85 FL (80-99); PLATELET COUNT 151 K/UL (150-450); RED CELL DISTRIBUTION WIDTH 12.4 % (11.6-14.8); WHITE BLOOD COUNT 3.4 K/UL (4.8-10.8)
[2019-09-05 06:30] LABS: ALANINE AMINOTRANSFERASE 38 U/L (12-78); ALBUMIN 2.3 G/DL (3.4-5.0); ALBUMIN/GLOBULIN RATIO 0.7 (1.0-2.7); ALKALINE PHOSPHATASE 121 U/L (46-116); ANION GAP 11 mmol/L (5-15); ASPARTATE AMINO TRANSFERASE 39 U/L (15-37); BILIRUBIN,TOTAL 0.2 MG/DL (0.2-1.0); BLOOD UREA NITROGEN 22 mg/dL (7-18); CALCIUM 9.4 MG/DL (8.5-10.1); CARBON DIOXIDE 22 MMOL/L (21-32); CHLORIDE 111 MMOL/L (98-107); CREATININE 1.7 MG/DL (0.55-1.30); PHOSPHORUS 2.2 MG/DL (2.5-4.9); POTASSIUM 3.7 MMOL/L (3.5-5.1); SODIUM 144 MMOL/L (136-145)
--- NOTE | 2019-09-05 06:45 | Progress Note ---
DATE: 09/04/2019 CARDIOLOGY PROGRESS NOTE SUBJECTIVE: The patient remains on hydroxychloroquine therapy. He is not hypoxic. He has poor oral intake. Monitored rhythm, with episodes of bradycardia and junctional rhythm. OBJECTIVE: VITAL SIGNS: Blood pressure 128/55, heart rate 69, respiratory rate 18. LUNGS: Bilateral breath sounds. CARDIAC: Regular rhythm and rate. Normal S1, S2. ABDOMEN: Soft. EXTREMITIES: Trace edema. LABORATORY DATA: Sodium 143, potassium 4, bicarb 22, BUN 24, creatinine 1.8. IMPRESSION: 1. COVID-19 pneumonia. 2. Bradyarrhythmia. 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 4. Severe pulmonary hypertension. 5. Mitral valve regurgitation and cardiomyopathy. PLAN: 1. Monitor QTc interval. 2. Cautious use of hydroxychloroquine. 3. Recheck chest radiograph. 4. Cautious use of amlodipine. 5. Recheck thyroid function. Gamaliel Salas M.D. DR: Jose JOB#: [id number] CC:
--- NOTE | 2019-09-05 07:00 | NUR ---
HAND-OFF: Report given to LUIS FERNANDO Nunn. Plan of care endorsed.
--- NOTE | 2019-09-05 07:10 | NUR ---
NURSE NOTES: handoff received from LUIS FERNANDO Castillo. Patient received awake and alert and resting in bed, no acute signs of distress noted. Patient has IV site clean dry and intact, saline locked. Bed in the low and locked position with call light within reach. Patient on contact and droplet precaution for Covid. Patient on room air. will continue to monitor patient.
--- NOTE | 2019-09-05 07:20 | NUR ---
NURSE NOTES: Handoff received from Anna GOULD. Patient received trying to get out of bed, No tele monitor on as PM shift stated he keeps pulling it off. Patient is agitated and confused and will not listen to verbal intervention to stay in bed. Patient is on room air, IV site clean dry and intact, no fluids running as PM shift stated he keeps pulling out IV. Addendum: 09/05/19 at 0757 by Edouard Adame RN CHARTED ON WRONG PATIENT
--- NOTE | 2019-09-05 07:50 | NUR ---
NURSE NOTES: contacted Dr Macias as patient constantly trying to get out of bed and not keeping tele monitor off. ordered transfer to [facility], discontinue IV fluids ordered 20mg IV solumedrol daily and PT/OT order. PT order already placed previously. Addendum: 09/05/19 at 0757 by Edouard Adame RN CHARTED ON WRONG PATIENT
[2019-09-05 08:00] VITALS: BP 157/83
[2019-09-05] MEDS: Tamsulosin 0.4mg cap ORAL SCH ×2 (08:56→18:12)
[2019-09-05] MEDS ORDERED: Solu-MEDROL 40mg Inj IVP SCH (09:00)
--- NOTE | 2019-09-05 09:00 | General Progress Note ---
Assessment/Plan Problem List: (1) CHF (congestive heart failure) ICD Codes: I50.9 - Heart failure, unspecified SNOMED: 89710493 (2) Renal failure (ARF), acute on chronic ICD Codes: N17.9 - Acute kidney failure, unspecified; N18.9 - Chronic kidney disease, unspecified SNOMED: 620363962 (3) Encephalopathy due to metabolic factor or toxin SNOMED: 116913916 (4) Gross hematuria ICD Codes: R31.0 - Gross hematuria SNOMED: 308913542 (5) Falls frequently ICD Codes: R29.6 - Repeated falls SNOMED: 054344371 (6) Dehydration ICD Codes: E86.0 - Dehydration SNOMED: 77400377 (7) UTI (urinary tract infection) ICD Codes: N39.0 - Urinary tract infection, site not specified SNOMED: 69888256 (8) Anemia ICD Codes: D64.9 - Anemia, unspecified SNOMED: 566244992 Status: stable, progressing, not improved Assessment/Plan: o2 as needed. currently stable on room air. fall precautions. Hydroxychloroquine treatment per ID recommendations for COVID-19 Fluids dcd. encourage pos. monitor labs Anxiolytics as needed. Continue blood pressure treatment. DVT and stress ulcer prophylaxis. Discharge planning to custodial facility on hold for now Subjective ROS Limited/Unobtainable: No Constitutional: Reports: malaise, weakness HEENT: Reports: no symptoms Cardiovascular: Reports: no symptoms Respiratory: Reports: no symptoms Gastrointestinal/Abdominal: Reports: no symptoms Genitourinary: Reports: no symptoms Neurologic/Psychiatric: Reports: anxiety, emotional problems, pre-existing deficit Endocrine: Reports: no symptoms Hematologic/Lymphatic: Reports: no symptoms Allergies: Coded Allergies: No Known Allergies (Unverified , 06/05/19) All Systems: reviewed and negative except above Subjective There have been no overnight events. Patient remains confused at baseline. per staff getting out of bed unassisted. Currently on treatment with hydroxychloroquine. o2 sats stable on room air. Poor p.o. intake. No fevers noted. Objective Last 24 Hour Vital Signs Date Time Temp Pulse Resp B/P (MAP) Pulse Ox O2 Delivery O2 Flow Rate FiO2 09/05/19 08:00 97.8 78 18 157/83 (107) 98 4/20/20 05:34 129/89 09/05/19 04:00 97.8 66 19 129/89 (102) 99 09/05/19 04:00 68 09/05/19 00:00 70 09/05/19 00:00 97.6 62 20 158/61 (93) 98 09/04/19 21:00 Room Air 09/04/19 20:39 165/75 09/04/19 20:00 66 09/04/19 20:00 97.0 71 18 165/75 (105) 97 09/04/19 17:19 124/65 09/04/19 16:00 98.3 76 18 124/65 (84) 97 09/04/19 16:00 73 09/04/19 12:52 125/70 09/04/19 12:00 97.9 61 17 125/70 (88) 97 09/04/19 12:00 81 09/04/19 09:00 59 128/55 09/04/19 09:00 Room Air Intake and Output 09/04/19 09/05/19 19:00 07:00 Intake Total 600 ml Balance 600 ml Intake Oral 600 ml # Voids 3 2 # Bowel Movements 1 Laboratory Tests 09/04/19 09:57: Sodium Level 143, Potassium Level 4.0, Chloride Level 110H, Carbon Dioxide Level 22, Anion Gap 11, Blood Urea Nitrogen 24H, Creatinine 1.8H, Estimat Glomerular Filtration Rate 36.1, Glucose Level 96, Calcium Level 9.4 09/05/19 05:30: Sodium Level 144, Potassium Level 3.7, Chloride Level 111H, Carbon Dioxide Level 22, Anion Gap 11, Blood Urea Nitrogen 22H, Creatinine 1.7H, Estimat Glomerular Filtration Rate 38.6, Glucose Level 89, Calcium Level 9.4, White Blood Count 3.4L, Red Blood Count 3.10L, Hemoglobin 8.9L, Hematocrit 26.2L, Mean Corpuscular Volume 85, Mean Corpuscular Hemoglobin 28.8, Mean Corpuscular Hemoglobin Concent 34.1, Red Cell Distribution Width 12.4, Platelet Count 151, Mean Platelet Volume 6.2L, Neutrophils (%) (Auto) , Lymphocytes (%) (Auto) , Monocytes (%) (Auto) , Eosinophils (%) (Auto) , Basophils (%) (Auto) , Differential Total Cells Counted 100, Neutrophils % (Manual) 81H, Lymphocytes % (Manual) 11L, Monocytes % (Manual) 7, Eosinophils % (Manual) 1, Basophils % ( Manual) 0, Band Neutrophils 0, Platelet Estimate Adequate, Platelet Morphology Normal, Hypochromasia 2+, Anisocytosis 1+, D-Dimer 4.02H, Uric Acid 5.6, Phosphorus Level 2.2L, Magnesium Level 1.8, Total Bilirubin 0.2, Aspartate Amino Transf (AST/SGOT) 39H, Alanine Aminotransferase (ALT/SGPT) 38, Alkaline Phosphatase 121H, Lactate Dehydrogenase 171, Pro-B-Type Natriuretic Peptide 5915H, Total Protein 5.7L, Albumin 2.3L, Globulin 3.4, Albumin/Globulin Ratio 0.7L, Thyroid Stimulating Hormone (TSH) 1.985 Height (Feet): 5 Height (Inches): 6.00 Weight (Pounds): 107 Objective General Appearance: WD/WN, alert, confused Neck: supple Cardiovascular: regular rhythm Respiratory/Chest: rhonchi - bilaterally Abdomen: normal bowel sounds, non tender, soft, no organomegaly, no mass Edema: no edema noted Arm (L), no edema noted Arm (R), no edema noted Leg (L), no edema noted Leg (R), no edema noted Pedal (L), no edema noted Pedal (R), no edema noted Generalized Neurologic: 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
[2019-09-05] MEDS: Phospha 250 Neutral tab ORAL SCH ×3 (09:14→18:11)
--- NOTE | 2019-09-05 10:21 | Pulmonology Progress Note ---
Assessment/Plan Assessment/Plan IMPRESSION: 1. Pleural effusions, small bilateral. 2. Atelectasis. 3. Pulmonary edema, questionable. 4. Hypertension. 5. Hyperlipidemia. 6. positive COVID 19 7. UTI DISCUSSION: The patient is saturating well on room air I will follow as geographic information system surveyor. No new recommendations Kimani Hahn M.D. Subjective Interval Events: None new Constitutional: Reports: no symptoms HEENT: Repors: no symptoms Respiratory: Reports: no symptoms Allergies: Coded Allergies: No Known Allergies (Unverified , 06/05/19) Objective Last 24 Hour Vital Signs Date Time Temp Pulse Resp B/P (MAP) Pulse Ox O2 Delivery O2 Flow Rate FiO2 09/05/19 09:00 Room Air 09/05/19 08:56 78 157/83 09/05/19 08:00 97.8 78 18 157/83 (107) 98 09/05/19 05:34 129/89 09/05/19 04:00 97.8 66 19 129/89 (102) 99 09/05/19 04:00 68 09/05/19 00:00 70 09/05/19 00:00 97.6 62 20 158/61 (93) 98 09/04/19 21:00 Room Air 09/04/19 20:39 165/75 09/04/19 20:00 66 09/04/19 20:00 97.0 71 18 165/75 (105) 97 09/04/19 17:19 124/65 09/04/19 16:00 98.3 76 18 124/65 (84) 97 09/04/19 16:00 73 09/04/19 12:52 125/70 09/04/19 12:00 97.9 61 17 125/70 (88) 97 09/04/19 12:00 81 Intake and Output 09/04/19 09/05/19 19:00 07:00 Intake Total 600 ml Balance 600 ml Intake Oral 600 ml # Voids 3 2 # Bowel Movements 1 General Appearance: no acute distress HEENT: normocephalic Respiratory/Chest: chest wall non-tender Cardiovascular: normal peripheral pulses Laboratory Tests 09/05/19 05:30: White Blood Count 3.4L, Red Blood Count 3.10L, Hemoglobin 8.9L, Hematocrit 26.2L , Mean Corpuscular Volume 85, Mean Corpuscular Hemoglobin 28.8, Mean Corpuscular Hemoglobin Concent 34.1, Red Cell Distribution Width 12.4, Platelet Count 151, Mean Platelet Volume 6.2L, Neutrophils (%) (Auto) , Lymphocytes (%) ( Auto) , Monocytes (%) (Auto) , Eosinophils (%) (Auto) , Basophils (%) (Auto) , Differential Total Cells Counted 100, Neutrophils % (Manual) 81H, Lymphocytes % (Manual) 11L, Monocytes % (Manual) 7, Eosinophils % (Manual) 1, Basophils % ( Manual) 0, Band Neutrophils 0, Platelet Estimate Adequate, Platelet Morphology Normal, Hypochromasia 2+, Anisocytosis 1+, D-Dimer 4.02H, Sodium Level 144, Potassium Level 3.7, Chloride Level 111H, Carbon Dioxide Level 22, Anion Gap 11 , Blood Urea Nitrogen 22H, Creatinine 1.7H, Estimat Glomerular Filtration Rate 38.6, Glucose Level 89, Uric Acid 5.6, Calcium Level 9.4, Phosphorus Level 2.2L , Magnesium Level 1.8, Total Bilirubin 0.2, Aspartate Amino Transf (AST/SGOT) 39H, Alanine Aminotransferase (ALT/SGPT) 38, Alkaline Phosphatase 121H, Lactate Dehydrogenase 171, Pro-B-Type Natriuretic Peptide 5915H, Total Protein 5.7L, Albumin 2.3L, Globulin 3.4, Albumin/Globulin Ratio 0.7L, Thyroid Stimulating Hormone (TSH) 1.985 Current Medications Medications (Trade) Dose Ordered Sig/Kristine Route PRN Reason Start Time Stop Time Status Last Admin Dose Admin Acetaminophen (Tylenol) 500 mg Q6H PRN ORAL MILD/TEMP 08/28/19 18:30 09/05/19 18:29 Amlodipine Besylate (Norvasc) 10 mg DAILY ORAL 09/03/19 09:00 09/28/19 08:59 09/05/19 08:56 Finasteride (Proscar) 5 mg DAILY ORAL 08/29/19 09:00 11/05/19 15:44 09/05/19 08:56 Hydralazine HCl (Apresoline) 10 mg Q8H PRN IV For High Blood Pressure 08/28/19 18:15 11/26/19 18:14 09/04/19 20:39 Hydroxychloroquine Sulfate (Plaquenil) 200 mg BID ORAL 09/02/19 09:00 09/05/19 18:01 09/05/19 08:55 Levofloxacin (Levaquin) 250 mg DAILY ORAL 09/01/19 09:00 09/08/19 08:59 09/05/19 08:55 Magnesium Hydroxide (Mom) 30 ml TIDPRN PRN ORAL Constipation 08/29/19 05:45 09/18/19 05:44 Nitroglycerin (Nitro-Bid) 1 inch Q6HR@0600,1200,1800 TOPIC 08/29/19 06:00 09/11/19 06:59 09/05/19 05:34 Pantoprazole (Protonix) 40 mg DAILY ORAL 08/29/19 09:00 09/25/19 08:59 09/05/19 08:55 Phosphorus (Phospha 250 Neutral) 250 mg THREE TIMES A DAY ORAL 09/05/19 09:00 10/05/19 08:59 09/05/19 09:14 Sennosides (Senokot) 8.6 mg BEDTIME ORAL 08/28/19 21:00 09/05/19 20:59 09/04/19 20:16 Tamsulosin HCl (Flomax) 0.4 mg BID ORAL 08/29/19 09:00 09/05/19 20:59 09/05/19 08:56 Kimani Hahn MD Sep 05, 2019 10:21
--- NOTE | 2019-09-05 10:33 | Infectious Diseases Prog Note ---
Assessment/Plan Assessment/Plan antibiotics : hydroxychloroquine A 1. COVID 19 pneumonia test + on 08.29.20, 4.16.20 2. Pseudomonas and Raoultella urinary tract infection. 3. Renal failure. 4. hypertension 5. cardiomyopathy P 1. d/c hydroxychloroquine 2. Continue Levaquin 1 more day 3. Continue isolation Subjective Constitutional: Denies: fever, chills Respiratory: Denies: shortness of breath, dry cough Gastrointestinal/Abdominal: Denies: nausea, vomiting, diarrhea Musculoskeletal: Denies: pain Allergies: Coded Allergies: No Known Allergies (Unverified , 06/05/19) Objective Vital Signs Last 24 Hour Vital Signs Date Time Temp Pulse Resp B/P (MAP) Pulse Ox O2 Delivery O2 Flow Rate FiO2 09/05/19 09:00 Room Air 09/05/19 08:56 78 157/83 09/05/19 08:00 97.8 78 18 157/83 (107) 98 09/05/19 05:34 129/89 09/05/19 04:00 97.8 66 19 129/89 (102) 99 09/05/19 04:00 68 09/05/19 00:00 70 09/05/19 00:00 97.6 62 20 158/61 (93) 98 09/04/19 21:00 Room Air 09/04/19 20:39 165/75 09/04/19 20:00 66 09/04/19 20:00 97.0 71 18 165/75 (105) 97 09/04/19 17:19 124/65 09/04/19 16:00 98.3 76 18 124/65 (84) 97 09/04/19 16:00 73 09/04/19 12:52 125/70 09/04/19 12:00 97.9 61 17 125/70 (88) 97 09/04/19 12:00 81 Height (Feet): 5 Height (Inches): 6.00 Weight (Pounds): 107 Laboratory Tests Test 09/05/19 05:30 White Blood Count 3.4 K/UL (4.8-10.8) L Red Blood Count 3.10 M/UL (4.70-6.10) L Hemoglobin 8.9 G/DL (14.2-18.0) L Hematocrit 26.2 % (42.0-52.0) L Mean Corpuscular Volume 85 FL (80-99) Mean Corpuscular Hemoglobin 28.8 PG (27.0-31.0) Mean Corpuscular Hemoglobin Concent 34.1 G/DL (32.0-36.0) Red Cell Distribution Width 12.4 % (11.6-14.8) Platelet Count 151 K/UL (150-450) Mean Platelet Volume 6.2 FL (6.5-10.1) L Neutrophils (%) (Auto) % (45.0-75.0) Lymphocytes (%) (Auto) % (20.0-45.0) Monocytes (%) (Auto) % (1.0-10.0) Eosinophils (%) (Auto) % (0.0-3.0) Basophils (%) (Auto) % (0.0-2.0) Differential Total Cells Counted 100 Neutrophils % (Manual) 81 % (45-75) H Lymphocytes % (Manual) 11 % (20-45) L Monocytes % (Manual) 7 % (1-10) Eosinophils % (Manual) 1 % (0-3) Basophils % (Manual) 0 % (0-2) Band Neutrophils 0 % (0-8) Platelet Estimate Adequate Platelet Morphology Normal Hypochromasia 2+ Anisocytosis 1+ D-Dimer 4.02 mg/L FEU (0.00-0.49) H Sodium Level 144 MMOL/L (136-145) Potassium Level 3.7 MMOL/L (3.5-5.1) Chloride Level 111 MMOL/L (98-107) H Carbon Dioxide Level 22 MMOL/L (21-32) Anion Gap 11 mmol/L (5-15) Blood Urea Nitrogen 22 mg/dL (7-18) H Creatinine 1.7 MG/DL (0.55-1.30) H Estimat Glomerular Filtration Rate 38.6 mL/min (>60) Glucose Level 89 MG/DL (74-106) Uric Acid 5.6 MG/DL (2.6-7.2) Calcium Level 9.4 MG/DL (8.5-10.1) Phosphorus Level 2.2 MG/DL (2.5-4.9) L Magnesium Level 1.8 MG/DL (1.8-2.4) Total Bilirubin 0.2 MG/DL (0.2-1.0) Aspartate Amino Transf (AST/SGOT) 39 U/L (15-37) H Alanine Aminotransferase (ALT/SGPT) 38 U/L (12-78) Alkaline Phosphatase 121 U/L (46-116) H Lactate Dehydrogenase 171 U/L (81-234) Pro-B-Type Natriuretic Peptide 5915 pg/mL (0-125) H Total Protein 5.7 G/DL (6.4-8.2) L Albumin 2.3 G/DL (3.4-5.0) L Globulin 3.4 g/dL Albumin/Globulin Ratio 0.7 (1.0-2.7) L Thyroid Stimulating Hormone (TSH) 1.985 uiU/mL (0.358-3.740) Current Medications Medications (Trade) Dose Ordered Sig/Kristine Route PRN Reason Start Time Stop Time Status Last Admin Dose Admin Acetaminophen (Tylenol) 500 mg Q6H PRN ORAL MILD/TEMP 08/28/19 18:30 09/05/19 18:29 Amlodipine Besylate (Norvasc) 10 mg DAILY ORAL 09/03/19 09:00 09/28/19 08:59 09/05/19 08:56 Finasteride (Proscar) 5 mg DAILY ORAL 08/29/19 09:00 11/05/19 15:44 09/05/19 08:56 Hydralazine HCl (Apresoline) 10 mg Q8H PRN IV For High Blood Pressure 08/28/19 18:15 11/26/19 18:14 09/04/19 20:39 Hydroxychloroquine Sulfate (Plaquenil) 200 mg BID ORAL 09/02/19 09:00 09/05/19 18:01 09/05/19 08:55 Levofloxacin (Levaquin) 250 mg DAILY ORAL 09/01/19 09:00 09/08/19 08:59 09/05/19 08:55 Magnesium Hydroxide (Mom) 30 ml TIDPRN PRN ORAL Constipation 08/29/19 05:45 09/18/19 05:44 Nitroglycerin (Nitro-Bid) 1 inch Q6HR@0600,1200,1800 TOPIC 08/29/19 06:00 09/11/19 06:59 09/05/19 05:34 Pantoprazole (Protonix) 40 mg DAILY ORAL 08/29/19 09:00 09/25/19 08:59 09/05/19 08:55 Phosphorus (Phospha 250 Neutral) 250 mg THREE TIMES A DAY ORAL 09/05/19 09:00 10/05/19 08:59 09/05/19 09:14 Sennosides (Senokot) 8.6 mg BEDTIME ORAL 08/28/19 21:00 09/05/19 20:59 09/04/19 20:16 Tamsulosin HCl (Flomax) 0.4 mg BID ORAL 08/29/19 09:00 09/05/19 20:59 09/05/19 08:56 Gonzalez Stephens MD Sep 05, 2019 10:33
--- NOTE | 2019-09-05 11:03 | NUR ---
CASE MANAGEMENT:REVIEW 09/03/19 SI:NOW COVID-19 (+) . METABOLIC VS TOXIC ENCEPHALOPATHY . BILATERAL PLEURAL EFFUSION. PULMONARY EDEMA . AC/CHR RENAL FAILURE. UTI PSEUDOMONAS A 98.3 108 20 102/63 97% ON RA IS:PLAQUENIL PO BID X8 DOSES LEVAQUIN PO QD PHOSPHA NEUTRAL PO TID PROSCAR PO QD FLOMAX PO BID NORVASC PO QD PROTONIX PO QD RISPERDAL PO QD NITRO-BID Q6HR [place] PO QHS HYDRALAZINE PO Q8HR/PRN \:2E TELE UNIT DCP: [facility] PLAN: COVID-19 TEST (+) SECOND COVID-19 -(+) CONTINUE PT THERAPY - DETERMINE IF PATIENT WILL RETURN SKILLED OR INDEPENDENTLY CASE MANAGEMENT:REVIEW 09/04/19 SI:NOW COVID-19 (+)(+) . METABOLIC VS TOXIC ENCEPHALOPATHY . BILATERAL PLEURAL EFFUSION. PULMONARY EDEMA . AC/CHR RENAL FAILURE. UTI PSEUDOMONAS A 97.0 71 18 165/75 97% ON RA BUN 24 CREAT 1.8 IS:PLAQUENIL PO BID X8 DOSES LEVAQUIN PO QD PHOSPHA NEUTRAL PO TID PROSCAR PO QD FLOMAX PO BID NORVASC PO QD PROTONIX PO QD RISPERDAL PO QD NITRO-BID Q6HR [place] PO QHS HYDRALAZINE PO Q8HR/PRN \:2E TELE UNIT DCP: [facility] PLAN: CONTINUE PT THERAPY - DETERMINE IF PATIENT WILL RETURN SKILLED OR INDEPENDENTLY CASE MANAGEMENT:REVIEW 09/05/19 SI:NOW COVID-19 (+)(+) . METABOLIC VS TOXIC ENCEPHALOPATHY . BILATERAL PLEURAL EFFUSION. PULMONARY EDEMA . AC/CHR RENAL FAILURE. UTI PSEUDOMONAS A 97.8 78 18 157/83 93% ON RA D-DIMER 4.02 WBC 3.4 H/H 8.9/26.2 PHOS 2.2 BNP 5915 BUN/CREAT 22/1.7 ALBUMIN 2.3 IS:PLAQUENIL PO BID X8 DOSES LEVAQUIN PO QD PHOSPHA NEUTRAL PO TID PROSCAR PO QD FLOMAX PO BID NORVASC PO QD PROTONIX PO QD RISPERDAL PO QD NITRO-BID Q6HR [place] PO QHS HYDRALAZINE PO Q8HR/PRN \:2E TELE UNIT DCP: [facility] PLAN: CONTINUE PT THERAPY - Pt continues to require hand over hand techniques for proper hand placement and sequencing to improve ease of mobility. Patient had difficulty clearing his buttocks off the bed.
--- NOTE | 2019-09-05 11:50 | Nephrology Progress Note ---
Assessment/Plan Problem List: (1) Renal failure (ARF), acute on chronic Assessment: Serum creatinine stabilizing (2) Falls frequently (3) UTI (urinary tract infection) Assessment: and hematuria (4) Anemia (5) Dehydration (6) Encephalopathy due to metabolic factor or toxin Assessment Frequent falls Acute renal failure with underlying dehydration Anemia, underlying etiology unclear UTI (urinary tract infection) Toxic metabolic encephalopathy Plan Patient now COVID-19 positive Start D5W for hypernatremia P.o. intake variable Oral potassium supplement as needed Discharge planning in process previously: Increase Flomax to twice daily Correct electrolytes as needed Transfusion as needed 2D echocardiogram ejection fraction 60% Kidney ultrasound pending results Monitor renal parameters Avoid nephrotoxics Antibiotics for UTI Continue per consultants Subjective ROS Limited/Unobtainable: No Constitutional: Reports: malaise, weakness Objective Objective Last 24 Hour Vital Signs Date Time Temp Pulse Resp B/P (MAP) Pulse Ox O2 Delivery O2 Flow Rate FiO2 09/05/19 09:00 Room Air 09/05/19 08:56 78 157/83 09/05/19 08:00 68 09/05/19 08:00 97.8 78 18 157/83 (107) 98 09/05/19 05:34 129/89 09/05/19 04:00 97.8 66 19 129/89 (102) 99 09/05/19 04:00 68 09/05/19 00:00 70 09/05/19 00:00 97.6 62 20 158/61 (93) 98 09/04/19 21:00 Room Air 09/04/19 20:39 165/75 09/04/19 20:00 66 09/04/19 20:00 97.0 71 18 165/75 (105) 97 09/04/19 17:19 124/65 09/04/19 16:00 98.3 76 18 124/65 (84) 97 09/04/19 16:00 73 09/04/19 12:52 125/70 09/04/19 12:00 97.9 61 17 125/70 (88) 97 09/04/19 12:00 81 Intake and Output 09/04/19 09/05/19 19:00 07:00 Intake Total 600 ml Balance 600 ml Intake Oral 600 ml # Voids 3 2 # Bowel Movements 1 Laboratory Tests 09/05/19 05:30: White Blood Count 3.4L, Red Blood Count 3.10L, Hemoglobin 8.9L, Hematocrit 26.2L , Mean Corpuscular Volume 85, Mean Corpuscular Hemoglobin 28.8, Mean Corpuscular Hemoglobin Concent 34.1, Red Cell Distribution Width 12.4, Platelet Count 151, Mean Platelet Volume 6.2L, Neutrophils (%) (Auto) , Lymphocytes (%) ( Auto) , Monocytes (%) (Auto) , Eosinophils (%) (Auto) , Basophils (%) (Auto) , Differential Total Cells Counted 100, Neutrophils % (Manual) 81H, Lymphocytes % (Manual) 11L, Monocytes % (Manual) 7, Eosinophils % (Manual) 1, Basophils % ( Manual) 0, Band Neutrophils 0, Platelet Estimate Adequate, Platelet Morphology Normal, Hypochromasia 2+, Anisocytosis 1+, D-Dimer 4.02H, Sodium Level 144, Potassium Level 3.7, Chloride Level 111H, Carbon Dioxide Level 22, Anion Gap 11 , Blood Urea Nitrogen 22H, Creatinine 1.7H, Estimat Glomerular Filtration Rate 38.6, Glucose Level 89, Uric Acid 5.6, Calcium Level 9.4, Phosphorus Level 2.2L , Magnesium Level 1.8, Total Bilirubin 0.2, Aspartate Amino Transf (AST/SGOT) 39H, Alanine Aminotransferase (ALT/SGPT) 38, Alkaline Phosphatase 121H, Lactate Dehydrogenase 171, Pro-B-Type Natriuretic Peptide 5915H, Total Protein 5.7L, Albumin 2.3L, Globulin 3.4, Albumin/Globulin Ratio 0.7L, Thyroid Stimulating Hormone (TSH) 1.985 Height (Feet): 5 Height (Inches): 6.00 Weight (Pounds): 107 General Appearance: no apparent distress Cardiovascular: normal rate Respiratory/Chest: decreased breath sounds Abdomen: soft Objective No change Juan Jade MD Sep 05, 2019 11:50
[2019-09-05 12:00] VITALS: BP 154/71
--- NOTE | 2019-09-05 13:28 | Urology Progress Note ---
Assessment/Plan Status: stable, progressing, not improved Assessment/Plan: 1. Gross hematuria hx, presumably secondary to Doshi trauma, resolved. 2. BPH. 3. Urinary retention. 4. Neurogenic bladder. 5. Pyuria?UTI/colonized. 6. Proteinuria. 7. Renal insufficiency, which appears to be acute on chronic. 8. Rule out urethral stricture. monitor clinically doshi out, voiding/incontinent cont flomax and proscar on abx off anticoagulation, resume? restraints PRN cysto at some point monitor PVR and reinsert doshi PRN renal imaging? COVID (+) Subjective Allergies: Coded Allergies: No Known Allergies (Unverified , 06/05/19) Subjective all noted, confused, doshi out, incontinent, condom cath Objective Last 24 Hour Vital Signs Date Time Temp Pulse Resp B/P (MAP) Pulse Ox O2 Delivery O2 Flow Rate FiO2 09/05/19 12:46 154/71 09/05/19 12:00 98.2 66 20 154/71 (98) 95 09/05/19 09:00 Room Air 09/05/19 08:56 78 157/83 09/05/19 08:00 68 09/05/19 08:00 97.8 78 18 157/83 (107) 98 09/05/19 05:34 129/89 09/05/19 04:00 97.8 66 19 129/89 (102) 99 09/05/19 04:00 68 09/05/19 00:00 70 09/05/19 00:00 97.6 62 20 158/61 (93) 98 09/04/19 21:00 Room Air 09/04/19 20:39 165/75 09/04/19 20:00 66 09/04/19 20:00 97.0 71 18 165/75 (105) 97 09/04/19 17:19 124/65 09/04/19 16:00 98.3 76 18 124/65 (84) 97 09/04/19 16:00 73 Intake and Output 09/04/19 09/05/19 19:00 07:00 Intake Total 600 ml Balance 600 ml Intake Oral 600 ml # Voids 3 2 # Bowel Movements 1 Microbiology Date/Time Source Procedure Growth Status 09/01/19 16:15 Nasopharynx Coronavirus COVID-19 PCR (JOS[facility] LU[facility]) - Final Complete 08/28/19 12:31 Indwelling Cath Urine Culture - Final Pseudomonas Aeruginosa Raoultella [place] Complete 08/06/19 04:45 Rectum VRE Culture - Final NO VANCOMYCIN RESISTANT ENTEROCOCCUS ... Complete Current Medications Medications (Trade) Dose Ordered Sig/Kristine Route PRN Reason Start Time Stop Time Status Last Admin Dose Admin Acetaminophen (Tylenol) 500 mg Q6H PRN ORAL MILD/TEMP 08/28/19 18:30 09/05/19 18:29 Amlodipine Besylate (Norvasc) 10 mg DAILY ORAL 09/03/19 09:00 09/28/19 08:59 09/05/19 08:56 Finasteride (Proscar) 5 mg DAILY ORAL 08/29/19 09:00 11/05/19 15:44 09/05/19 08:56 Hydralazine HCl (Apresoline) 10 mg Q8H PRN IV For High Blood Pressure 08/28/19 18:15 11/26/19 18:14 09/04/19 20:39 Hydroxychloroquine Sulfate (Plaquenil) 200 mg BID ORAL 09/02/19 09:00 09/05/19 18:01 09/05/19 08:55 Levofloxacin (Levaquin) 250 mg DAILY ORAL 09/01/19 09:00 09/08/19 08:59 09/05/19 08:55 Magnesium Hydroxide (Mom) 30 ml TIDPRN PRN ORAL Constipation 08/29/19 05:45 09/18/19 05:44 Nitroglycerin (Nitro-Bid) 1 inch Q6HR@0600,1200,1800 TOPIC 08/29/19 06:00 09/11/19 06:59 09/05/19 12:46 Pantoprazole (Protonix) 40 mg DAILY ORAL 08/29/19 09:00 09/25/19 08:59 09/05/19 08:55 Phosphorus (Phospha 250 Neutral) 250 mg THREE TIMES A DAY ORAL 09/05/19 09:00 10/05/19 08:59 09/05/19 12:47 Sennosides (Senokot) 8.6 mg BEDTIME ORAL 08/28/19 21:00 09/05/19 20:59 09/04/19 20:16 Tamsulosin HCl (Flomax) 0.4 mg BID ORAL 08/29/19 09:00 09/05/19 20:59 09/05/19 08:56 Laboratory Tests 09/05/19 05:30: White Blood Count 3.4L, Red Blood Count 3.10L, Hemoglobin 8.9L, Hematocrit 26.2L , Mean Corpuscular Volume 85, Mean Corpuscular Hemoglobin 28.8, Mean Corpuscular Hemoglobin Concent 34.1, Red Cell Distribution Width 12.4, Platelet Count 151, Mean Platelet Volume 6.2L, Neutrophils (%) (Auto) , Lymphocytes (%) ( Auto) , Monocytes (%) (Auto) , Eosinophils (%) (Auto) , Basophils (%) (Auto) , Differential Total Cells Counted 100, Neutrophils % (Manual) 81H, Lymphocytes % (Manual) 11L, Monocytes % (Manual) 7, Eosinophils % (Manual) 1, Basophils % ( Manual) 0, Band Neutrophils 0, Platelet Estimate Adequate, Platelet Morphology Normal, Hypochromasia 2+, Anisocytosis 1+, D-Dimer 4.02H, Sodium Level 144, Potassium Level 3.7, Chloride Level 111H, Carbon Dioxide Level 22, Anion Gap 11 , Blood Urea Nitrogen 22H, Creatinine 1.7H, Estimat Glomerular Filtration Rate 38.6, Glucose Level 89, Uric Acid 5.6, Calcium Level 9.4, Phosphorus Level 2.2L , Magnesium Level 1.8, Total Bilirubin 0.2, Aspartate Amino Transf (AST/SGOT) 39H, Alanine Aminotransferase (ALT/SGPT) 38, Alkaline Phosphatase 121H, Lactate Dehydrogenase 171, Pro-B-Type Natriuretic Peptide 5915H, Total Protein 5.7L, Albumin 2.3L, Globulin 3.4, Albumin/Globulin Ratio 0.7L, Thyroid Stimulating Hormone (TSH) 1.985 Height (Feet): 5 Height (Inches): 6.00 Weight (Pounds): 107 Objective exam stable abdomen soft urine grossly yellow Bamshad,Miik Perry MD Sep 05, 2019 13:28
--- NOTE | 2019-09-05 14:52 | NUR ---
*-*INSURANCE*-* UPDATED CLINICALS AND REVIEWS HAVE BEEN FACXED TO: DEE ARAGON:GLENIS P: [phone] F: [phone] REF# [id number]
[2019-09-05 16:00] VITALS: BP 157/89
--- NOTE | 2019-09-05 19:33 | NUR ---
HAND-OFF: Report given to LUIS FERNANDO danielle.Endorsed that patient has a sacral DTI and that there are no current wound care orders yet. Wound care consult placed and optifoam placed on sacrum.
--- NOTE | 2019-09-05 19:50 | NUR ---
NURSE NOTES: Received pt from LUIS FERNANDO Nunn. Pt awake, alert, and talkative. Bed in lowest position. Call light within reach. Will continue to monitor.
[2019-09-05 20:00] VITALS: BP 173/69
[2019-09-06] VITALS: BP 177/73
--- NOTE | 2019-09-06 03:30 | Progress Note ---
DATE: 08/06/2019 HISTORY OF PRESENT ILLNESS: The patient is agitated constantly coming out of the bed and is removing the monitors. Difficult to manage. Poor cognition. All the psychotropic medication have been discontinued due to the patient being on hydroxychloroquine, strong medication that would not affect on her QT prolongation with the mood stabilizers or Ativan. We will start the patient on Depakote to manage her behavior issues. will discuss with the cardiology on the case. Loco Luu M.D. DR: Yulissa JOB#: [id number] CC: JAISON
[2019-09-06 04:00] VITALS: BP 159/62
[2019-09-06] MEDS: Nitroglycerin 2% oint pkt TOPIC SCH ×3 (05:24→17:12)
--- NOTE | 2019-09-06 07:00 | NUR ---
NURSE NOTES: handoff received from LUIS FERNANDO Vieyra. Patient received awake and alert and resting in bed, no acute signs of distress noted. Patient has IV site clean dry and intact, saline locked. Bed in the low and locked position with call light within reach. Patient on contact and droplet precaution for Covid. Patient on room air. Patient has condom cath patient and draining. will continue to monitor patient.
--- NOTE | 2019-09-06 07:11 | NUR ---
HAND-OFF: Report given to LUIS FERNANDO Nunn. Pt stable.
[2019-09-06 08:00] VITALS: BP 145/70
--- NOTE | 2019-09-06 08:45 | Progress Note ---
DATE: 09/05/2019 CARDIOLOGY PROGRESS NOTE SUBJECTIVE: The patient has completed treatment with hydroxychloroquine today x5 days. No cardiac toxicity or complications noted. Monitored rhythm junctional with episodes of atrial fibrillation. OBJECTIVE: VITAL SIGNS: Blood pressure 157/89, pulse 61, respirations 20. LUNGS: Coarse breath sounds, rhonchi. CARDIAC: Regular rhythm and rate. Normal S1, S2. ABDOMEN: Soft. EXTREMITIES: Trace edema. No change in review of systems from initial assessment. LABORATORY DATA: White count 3.4, hemoglobin 8.9. Sodium 144, potassium 3.7, bicarb 22, BUN 22, creatinine 1.7, phosphorus 2.2. Pro-natriuretic peptide is 5900. IMPRESSION: 1. COVID-19 pneumonia, status post hydroxychloroquine therapy with no cardiac toxicity. 2. Hypertensive heart disease with elevated blood pressure. 3. Valvular cardiomyopathy. 4. 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 PLAN: Advance antihypertensive therapy. Periodic diuresis based on clinical parameters. Cardiac monitoring. Await clearance of COVID-19. Gamaliel Salas M.D. DR: SONJA JOB#: [id number] CC:
--- NOTE | 2019-09-06 08:57 | NUR ---
CASE MANAGEMENT:REVIEW 09/06/19 SI:CONTROLLED RATE JUNCTIONAL RHYTHM 80'S/ ATRIAL FIBRILLATION COVID-19 (+)(+) . METABOLIC VS TOXIC ENCEPHALOPATHY . BILATERAL PLEURAL EFFUSION. PULMONARY EDEMA . AC/CHR RENAL FAILURE. UTI PSEUDOMONAS A 97.9 65 18 177/73 97% ON RA IS:LEVAQUIN PO QD PHOSPHA NEUTRAL PO TID PROSCAR PO QD FLOMAX PO BID NORVASC PO QD PROTONIX PO QD DEPAKOTE PO BID NITRO-BID Q6HR HYDRALAZINE PO TID \:2E TELE UNIT DCP: [facility] PLAN: D-DIMER ELEVATION 09/04 CONTINUE PT THERAPY IV HYDROXYCHLOROQUINE START ON DEPAKOTE DC PLANNING
[2019-09-06] MEDS: Phospha 250 Neutral tab ORAL SCH ×3 (09:15→17:12)
[2019-09-06] MEDS: HydrALAZINE 25mg tab ORAL SCH ×3 (09:16→17:12)
--- NOTE | 2019-09-06 09:17 | NUR ---
DISCHARGE PLANNING: PATIENT UPDATED INFORMATION SENT TO [facility] T:[phone] F:[phone] SPOKE TO ARGIN ABOUT BED STATUS; CURRENTLY NO BEDS
--- NOTE | 2019-09-06 09:31 | NUR ---
RD ASSESSMENT & RECOMMENDATIONS SEE CARE ACTIVITY FOR COMPLETE ASSESSMENT DAILY ESTIMATED NEEDS: Needs based on Wound, 66.8kg 28-33 kcals/kg 5811-2001 total kcals 1.25-1.5 g protein/kg 84-100 g total protein 25-30 mL/kg 1124-2531 total fluid mLs NUTRITION DIAGNOSIS: Swallowing difficulty r/t dysphagia and ams as evidenced by s/p [employer] eval, poor cognition, pt on liquify puree texture diet w/ HTL, now with improved intake. CURRENT DIET: Liquify puree HTL Regular PO DIET RECOMMENDATIONS: Maintain Regular diet, texture per [employer] ADDITIONAL RECOMMENDATIONS: 1) Ensure Enlive TID w/ meals (350kcal/20g prot per bottle) 2) Maintain calibrated bed scale wts EMR wt: 160# vs Bed scale wt: 147#-> bed now reads 109.8# 3) Consider D5 IVF (vs 1/2 NS running currently)- Na elevated to prevent hypoglycemia given poor/variable PO 4) Wound care: MVI 1 tab QD + Vit C 250mg QD+ Jacob BID 5) Monitor lytes, replete as needed
--- NOTE | 2019-09-06 10:34 | General Progress Note ---
Assessment/Plan Problem List: (1) CHF (congestive heart failure) ICD Codes: I50.9 - Heart failure, unspecified SNOMED: 23093832 (2) Renal failure (ARF), acute on chronic ICD Codes: N17.9 - Acute kidney failure, unspecified; N18.9 - Chronic kidney disease, unspecified SNOMED: 977433360 (3) Encephalopathy due to metabolic factor or toxin SNOMED: 743681663 (4) Gross hematuria ICD Codes: R31.0 - Gross hematuria SNOMED: 352731778 (5) Falls frequently ICD Codes: R29.6 - Repeated falls SNOMED: 551591821 (6) Dehydration ICD Codes: E86.0 - Dehydration SNOMED: 44894743 (7) UTI (urinary tract infection) ICD Codes: N39.0 - Urinary tract infection, site not specified SNOMED: 64000305 (8) Anemia ICD Codes: D64.9 - Anemia, unspecified SNOMED: 963007394 Status: stable, progressing, not improved Assessment/Plan: o2 as needed. currently stable on room air. fall precautions. Encourage pos. monitor labs. IVF as needed Anxiolytics as needed. Continue blood pressure treatment. DVT and stress ulcer prophylaxis. [facility] for now. will need 2 neg covid tests. Subjective ROS Limited/Unobtainable: No Constitutional: Reports: malaise, weakness HEENT: Reports: no symptoms Cardiovascular: Reports: no symptoms Respiratory: Reports: cough, shortness of breath Gastrointestinal/Abdominal: Reports: poor appetite, poor fluid intake Genitourinary: Reports: no symptoms Neurologic/Psychiatric: Reports: anxiety, emotional problems, pre-existing deficit Endocrine: Reports: no symptoms Hematologic/Lymphatic: Reports: anemia Allergies: Coded Allergies: No Known Allergies (Unverified , 06/05/19) All Systems: reviewed and negative except above Subjective There have been no overnight events. Patient remains confused at baseline. per staff getting out of bed unassisted. completed treatment with hydroxychloroquine. o2 sats stable on room air. Poor p.o. intake. No fevers noted. Objective Last 24 Hour Vital Signs Date Time Temp Pulse Resp B/P (MAP) Pulse Ox O2 Delivery O2 Flow Rate FiO2 09/06/19 09:16 145/70 09/06/19 09:16 77 145/70 09/06/19 09:00 Room Air 09/06/19 08:00 96.9 77 18 145/70 (95) 98 09/06/19 05:24 159/62 09/06/19 04:00 83 09/06/19 04:00 97.9 65 18 159/62 (94) 97 09/06/19 00:00 66 09/06/19 00:00 97.2 70 18 177/73 (107) 98 09/05/19 23:35 173/69 09/05/19 21:00 Room Air 09/05/19 20:00 97.5 69 19 173/69 (103) 100 09/05/19 20:00 69 09/05/19 18:12 157/89 09/05/19 16:00 61 09/05/19 16:00 97.7 68 20 157/89 (111) 96 09/05/19 12:46 154/71 09/05/19 12:00 98.2 66 20 154/71 (98) 95 09/05/19 12:00 69 Intake and Output 09/05/19 09/06/19 19:00 07:00 Intake Total 960 ml Balance 960 ml Intake Oral 960 ml # Voids 2 2 # Bowel Movements 2 Height (Feet): 5 Height (Inches): 6.00 Weight (Pounds): 107 Objective General Appearance: WD/WN, alert, confused Neck: supple Cardiovascular: regular rhythm Respiratory/Chest: rhonchi - bilaterally Abdomen: normal bowel sounds, non tender, soft, no organomegaly, no mass Edema: no edema noted Arm (L), no edema noted Arm (R), no edema noted Leg (L), no edema noted Leg (R), no edema noted Pedal (L), no edema noted Pedal (R), no edema noted Generalized Neurologic: periodontal assistant II-XII grossly normal, alert, responsive Iggy Echavarria MD Sep 06, 2019 10:34
--- NOTE | 2019-09-06 10:49 | Infectious Diseases Prog Note ---
Assessment/Plan Assessment/Plan antibiotics : levoquin A 1. COVID 19 pneumonia test + on 4.14.20, 4.16.20 2. Pseudomonas and Raoultella urinary tract infection s/p rx 3. Renal failure. 4. hypertension 5. cardiomyopathy P 1. d/c Levaquin 2. will follow up cultures 3. Continue isolation Subjective ROS Limited/Unobtainable: Yes Allergies: Coded Allergies: No Known Allergies (Unverified , 06/05/19) Objective Vital Signs Last 24 Hour Vital Signs Date Time Temp Pulse Resp B/P (MAP) Pulse Ox O2 Delivery O2 Flow Rate FiO2 09/06/19 09:16 145/70 09/06/19 09:16 77 145/70 09/06/19 09:00 Room Air 09/06/19 08:00 96.9 77 18 145/70 (95) 98 09/06/19 05:24 159/62 09/06/19 04:00 83 09/06/19 04:00 97.9 65 18 159/62 (94) 97 09/06/19 00:00 66 09/06/19 00:00 97.2 70 18 177/73 (107) 98 09/05/19 23:35 173/69 09/05/19 21:00 Room Air 09/05/19 20:00 97.5 69 19 173/69 (103) 100 09/05/19 20:00 69 09/05/19 18:12 157/89 09/05/19 16:00 61 09/05/19 16:00 97.7 68 20 157/89 (111) 96 09/05/19 12:46 154/71 09/05/19 12:00 98.2 66 20 154/71 (98) 95 09/05/19 12:00 69 Height (Feet): 5 Height (Inches): 6.00 Weight (Pounds): 107 Current Medications Medications (Trade) Dose Ordered Sig/Kristine Route PRN Reason Start Time Stop Time Status Last Admin Dose Admin Amlodipine Besylate (Norvasc) 10 mg DAILY ORAL 09/03/19 09:00 09/28/19 08:59 09/06/19 09:16 Divalproex Sodium (Depakote) 250 mg EVERY 12 HOURS ORAL 09/06/19 09:00 10/21/19 08:59 09/06/19 09:16 Finasteride (Proscar) 5 mg DAILY ORAL 08/29/19 09:00 11/05/19 15:44 09/06/19 09:16 Hydralazine HCl (Apresoline) 10 mg Q8H PRN IV For High Blood Pressure 08/28/19 18:15 11/26/19 18:14 09/05/19 23:35 Hydralazine HCl (Apresoline) 25 mg TID ORAL 09/06/19 09:00 12/05/19 08:59 09/06/19 09:16 Levofloxacin (Levaquin) 250 mg DAILY ORAL 09/01/19 09:00 09/08/19 08:59 09/06/19 09:16 Magnesium Hydroxide (Mom) 30 ml TIDPRN PRN ORAL Constipation 08/29/19 05:45 09/18/19 05:44 Nitroglycerin (Nitro-Bid) 1 inch Q6HR@0600,1200,1800 TOPIC 08/29/19 06:00 09/11/19 06:59 09/06/19 05:24 Pantoprazole (Protonix) 40 mg DAILY ORAL 08/29/19 09:00 09/25/19 08:59 09/06/19 09:16 Phosphorus (Phospha 250 Neutral) 250 mg THREE TIMES A DAY ORAL 09/05/19 09:00 10/05/19 08:59 09/06/19 09:15 Gonzalez Stephens MD Sep 06, 2019 10:49
--- NOTE | 2019-09-06 10:58 | Nephrology Progress Note ---
Assessment/Plan Problem List: (1) Renal failure (ARF), acute on chronic Assessment: Serum creatinine stabilizing (2) Falls frequently (3) UTI (urinary tract infection) Assessment: and hematuria (4) Anemia (5) Dehydration (6) Encephalopathy due to metabolic factor or toxin Assessment Frequent falls Acute renal failure with underlying dehydration Anemia, underlying etiology unclear UTI (urinary tract infection) Toxic metabolic encephalopathy Plan Patient now COVID-19 positive Start D5W for hypernatremia P.o. intake variable Oral potassium supplement as needed Discharge planning in process previously: Increase Flomax to twice daily Correct electrolytes as needed Transfusion as needed 2D echocardiogram ejection fraction 60% Kidney ultrasound pending results Monitor renal parameters Avoid nephrotoxics Antibiotics for UTI Continue per consultants Subjective ROS Limited/Unobtainable: No Objective Objective Last 24 Hour Vital Signs Date Time Temp Pulse Resp B/P (MAP) Pulse Ox O2 Delivery O2 Flow Rate FiO2 09/06/19 09:16 145/70 09/06/19 09:16 77 145/70 09/06/19 09:00 Room Air 09/06/19 08:00 96.9 77 18 145/70 (95) 98 09/06/19 08:00 83 09/06/19 05:24 159/62 09/06/19 04:00 83 09/06/19 04:00 97.9 65 18 159/62 (94) 97 09/06/19 00:00 66 09/06/19 00:00 97.2 70 18 177/73 (107) 98 09/05/19 23:35 173/69 09/05/19 21:00 Room Air 09/05/19 20:00 97.5 69 19 173/69 (103) 100 09/05/19 20:00 69 09/05/19 18:12 157/89 09/05/19 16:00 61 09/05/19 16:00 97.7 68 20 157/89 (111) 96 09/05/19 12:46 154/71 09/05/19 12:00 98.2 66 20 154/71 (98) 95 09/05/19 12:00 69 Intake and Output 09/05/19 09/06/19 19:00 07:00 Intake Total 960 ml Balance 960 ml Intake Oral 960 ml # Voids 2 2 # Bowel Movements 2 No labs drawn today Height (Feet): 5 Height (Inches): 6.00 Weight (Pounds): 107 General Appearance: no apparent distress Cardiovascular: normal rate Respiratory/Chest: decreased breath sounds Abdomen: soft Objective No change Juan Jade MD Sep 06, 2019 10:58
--- NOTE | 2019-09-06 11:04 | Pulmonology Progress Note ---
Assessment/Plan Assessment/Plan IMPRESSION: 1. Pleural effusions, small bilateral. 2. Atelectasis. 3. Pulmonary edema, questionable. 4. Hypertension. 5. Hyperlipidemia. 6. positive COVID 19 7. UTI DISCUSSION: The patient is saturating well on room air I will follow as trainman. No new recommendations Kimani Hahn M.D. Subjective Interval Events: None new reported Constitutional: Reports: no symptoms HEENT: Repors: no symptoms Respiratory: Reports: no symptoms Cardiovascular: Reports: no symptoms Gastrointestinal/Abdominal: Reports: no symptoms Genitourinary: Reports: no symptoms Allergies: Coded Allergies: No Known Allergies (Unverified , 06/05/19) Objective Last 24 Hour Vital Signs Date Time Temp Pulse Resp B/P (MAP) Pulse Ox O2 Delivery O2 Flow Rate FiO2 09/06/19 09:16 145/70 09/06/19 09:16 77 145/70 09/06/19 09:00 Room Air 09/06/19 08:00 96.9 77 18 145/70 (95) 98 09/06/19 08:00 83 09/06/19 05:24 159/62 09/06/19 04:00 83 09/06/19 04:00 97.9 65 18 159/62 (94) 97 09/06/19 00:00 66 09/06/19 00:00 97.2 70 18 177/73 (107) 98 09/05/19 23:35 173/69 09/05/19 21:00 Room Air 09/05/19 20:00 97.5 69 19 173/69 (103) 100 09/05/19 20:00 69 09/05/19 18:12 157/89 09/05/19 16:00 61 09/05/19 16:00 97.7 68 20 157/89 (111) 96 09/05/19 12:46 154/71 09/05/19 12:00 98.2 66 20 154/71 (98) 95 09/05/19 12:00 69 Intake and Output 09/05/19 09/06/19 19:00 07:00 Intake Total 960 ml Balance 960 ml Intake Oral 960 ml # Voids 2 2 # Bowel Movements 2 General Appearance: no acute distress HEENT: normocephalic Respiratory/Chest: chest wall non-tender, lungs clear Cardiovascular: normal peripheral pulses Abdomen: normal bowel sounds Current Medications Medications (Trade) Dose Ordered Sig/Kristine Route PRN Reason Start Time Stop Time Status Last Admin Dose Admin Amlodipine Besylate (Norvasc) 10 mg DAILY ORAL 09/03/19 09:00 09/28/19 08:59 09/06/19 09:16 Divalproex Sodium (Depakote) 250 mg EVERY 12 HOURS ORAL 09/06/19 09:00 10/21/19 08:59 09/06/19 09:16 Finasteride (Proscar) 5 mg DAILY ORAL 08/29/19 09:00 11/05/19 15:44 09/06/19 09:16 Hydralazine HCl (Apresoline) 10 mg Q8H PRN IV For High Blood Pressure 08/28/19 18:15 11/26/19 18:14 09/05/19 23:35 Hydralazine HCl (Apresoline) 25 mg TID ORAL 09/06/19 09:00 12/05/19 08:59 09/06/19 09:16 Magnesium Hydroxide (Mom) 30 ml TIDPRN PRN ORAL Constipation 08/29/19 05:45 09/18/19 05:44 Nitroglycerin (Nitro-Bid) 1 inch Q6HR@0600,1200,1800 TOPIC 08/29/19 06:00 09/11/19 06:59 09/06/19 05:24 Pantoprazole (Protonix) 40 mg DAILY ORAL 08/29/19 09:00 09/25/19 08:59 09/06/19 09:16 Phosphorus (Phospha 250 Neutral) 250 mg THREE TIMES A DAY ORAL 09/05/19 09:00 10/05/19 08:59 09/06/19 09:15 Kimani Hahn MD Sep 06, 2019 11:04
--- NOTE | 2019-09-06 11:16 | Urology Progress Note ---
Assessment/Plan Status: stable, progressing, not improved Assessment/Plan: 1. Gross hematuria hx, presumably secondary to Doshi trauma, resolved. 2. BPH. 3. Urinary retention. 4. Neurogenic bladder. 5. Pyuria?UTI/colonized. 6. Proteinuria. 7. Renal insufficiency, which appears to be acute on chronic. 8. Rule out urethral stricture. monitor clinically doshi out, voiding/incontinent on proscar flomax was held? resume s/p abx off anticoagulation, resume? restraints PRN cysto at some point monitor PVR and reinsert doshi PRN renal imaging? COVID (+) Subjective Allergies: Coded Allergies: No Known Allergies (Unverified , 06/05/19) Subjective all noted, confused, doshi out, incontinent, condom cath Objective Last 24 Hour Vital Signs Date Time Temp Pulse Resp B/P (MAP) Pulse Ox O2 Delivery O2 Flow Rate FiO2 09/06/19 09:16 145/70 09/06/19 09:16 77 145/70 09/06/19 09:00 Room Air 09/06/19 08:00 96.9 77 18 145/70 (95) 98 09/06/19 08:00 83 09/06/19 05:24 159/62 09/06/19 04:00 83 09/06/19 04:00 97.9 65 18 159/62 (94) 97 09/06/19 00:00 66 09/06/19 00:00 97.2 70 18 177/73 (107) 98 09/05/19 23:35 173/69 09/05/19 21:00 Room Air 09/05/19 20:00 97.5 69 19 173/69 (103) 100 09/05/19 20:00 69 09/05/19 18:12 157/89 09/05/19 16:00 61 09/05/19 16:00 97.7 68 20 157/89 (111) 96 09/05/19 12:46 154/71 09/05/19 12:00 98.2 66 20 154/71 (98) 95 09/05/19 12:00 69 Intake and Output 09/05/19 09/06/19 19:00 07:00 Intake Total 960 ml Balance 960 ml Intake Oral 960 ml # Voids 2 2 # Bowel Movements 2 Microbiology Date/Time Source Procedure Growth Status 09/01/19 16:15 Nasopharynx Coronavirus COVID-19 PCR (JOSÉ LUIS) - Final Complete 08/28/19 12:31 Indwelling Cath Urine Culture - Final Pseudomonas Aeruginosa Raoultella [place] Complete 08/06/19 04:45 Rectum VRE Culture - Final NO VANCOMYCIN RESISTANT ENTEROCOCCUS ... Complete Current Medications Medications (Trade) Dose Ordered Sig/Kristine Route PRN Reason Start Time Stop Time Status Last Admin Dose Admin Amlodipine Besylate (Norvasc) 10 mg DAILY ORAL 09/03/19 09:00 09/28/19 08:59 09/06/19 09:16 Divalproex Sodium (Depakote) 250 mg EVERY 12 HOURS ORAL 09/06/19 09:00 10/21/19 08:59 09/06/19 09:16 Finasteride (Proscar) 5 mg DAILY ORAL 08/29/19 09:00 11/05/19 15:44 09/06/19 09:16 Hydralazine HCl (Apresoline) 10 mg Q8H PRN IV For High Blood Pressure 08/28/19 18:15 11/26/19 18:14 09/05/19 23:35 Hydralazine HCl (Apresoline) 25 mg TID ORAL 09/06/19 09:00 12/05/19 08:59 09/06/19 09:16 Magnesium Hydroxide (Mom) 30 ml TIDPRN PRN ORAL Constipation 08/29/19 05:45 09/18/19 05:44 Nitroglycerin (Nitro-Bid) 1 inch Q6HR@0600,1200,1800 TOPIC 08/29/19 06:00 09/11/19 06:59 09/06/19 05:24 Pantoprazole (Protonix) 40 mg DAILY ORAL 08/29/19 09:00 09/25/19 08:59 09/06/19 09:16 Phosphorus (Phospha 250 Neutral) 250 mg THREE TIMES A DAY ORAL 09/05/19 09:00 10/05/19 08:59 09/06/19 09:15 Height (Feet): 5 Height (Inches): 6.00 Weight (Pounds): 107 Objective exam stable abdomen soft urine grossly yellow MumtazshMiki morrow MD Sep 06, 2019 11:16
[2019-09-06 12:00] VITALS: BP 148/72
--- NOTE | 2019-09-06 14:20 | NUR ---
NURSE NOTES: Placed optifoam on bilateral heels twice, patient moving around in bed, optifoam and socks keep coming off the patient. Patient confused and unable to understand importance of optifoam to prevent skin breakdown/ pressure injuries. Sacral Optifoam remains in place.
--- NOTE | 2019-09-06 15:36 | NUR ---
NURSE NOTES:WOUND CARE FOLLOW-UP NOTES:Pt presented on admission with multiple pressure injuries which were resolving. 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 Base of injury is purple with maroon borders . Surrounding non-blanching erythema to R and Gluteal cheeks. Scrotum is erythematous. R and L heels are boggy but each area blanchable. Tx.Plan:Apply Moisture Barrier Paste to Sacrum. Cover with Optifoam drsg. Change every 3 days and prn. Apply Moisture Barrier Paste to bilat groin and scrotum with each incontinence care. Apply Cavilon Skin Barrier to both heels. Cover each heel with Optifoam drsg. Change every 7 days and prn. Reposition at least every 2hours or as tolerated. Off-load heels with pillow. APM/MEI Mattress overlay.
[2019-09-06 16:00] VITALS: BP 140/74
--- NOTE | 2019-09-06 19:28 | NUR ---
HAND-OFF: Report given to LUIS FERNANDO Vieyra..
--- NOTE | 2019-09-06 19:50 | NUR ---
NURSE NOTES: Received pt from LUIS FERNANDO Nunn. Pt awake, alert, and talkative. Bed in lowest position. Call light within reach. Will continue to monitor.
[2019-09-06 20:00] VITALS: BP 157/83
[2019-09-06] MEDS: Tamsulosin 0.4mg cap ORAL SCH (21:06)
--- NOTE | 2019-09-06 22:44 | NUR ---
NURSE NOTES: Called and left a message with Dr. Luu regarding pts order for depakote. She requested that the order be changed to a regular depakote so that it can be crushed. Will input order and will continue to monitor.
--- NOTE | 2019-09-06 22:59 | Progress Note ---
DATE: 09/06/2019 SUBJECTIVE: The patient is calmer, more manageable today, less agitated on Depakote. The patient was talkative today. MENTAL STATUS EXAMINATION: Confused, disoriented. Mood is less anxious. Affect is flat. Thought process is concrete. Thought content, no suicidal or homicidal ideation. Cognition is intact. Insight and judgment is non-existent. ASSESSMENT: Dementia with behavior disturbance. PLAN: Continue the Depakote. Loco Luu M.D. DR: Sherin JOB#: [id number] CC:
[2019-09-07] VITALS: BP 154/71
[2019-09-07 04:00] VITALS: BP 149/83
[2019-09-07] MEDS: Nitroglycerin 2% oint pkt TOPIC SCH ×3 (06:24→17:05)
--- NOTE | 2019-09-07 07:30 | Progress Note ---
DATE: 09/06/2019 CARDIOLOGY PROGRESS NOTE SUBJECTIVE: The patient remains confused, respiratory hygiene, status post hydroxychloroquine therapy for COVID-19 pneumonia. PHYSICAL EXAMINATION: VITAL SIGNS: Blood pressure 145/70, pulse 77, respirations 18. Monitor atrial fibrillation. LUNGS: Bilateral breath sounds. Few rhonchi. CARDIAC: Irregularly irregular rhythm. Normal S1, S2. ABDOMEN: Soft. EXTREMITIES: Trace edema. IMPRESSION: 1. COVID-19 pneumonia. 2. Paroxysmal atrial fibrillation. 3. Severe pulmonary hypertension. 4. Valvular cardiomyopathy. 5. Hypertensive heart disease. 6. Sinus node disease with bradycardia. PLAN: Restart Eliquis for cardioembolic prophylaxis. Continue titration of anti-failure and antihypertensive regimen. Monitor electrolytes and correct accordingly. Continue cardiac monitoring. Gamaliel Salas M.D. DR: SONJA JOB#: [id number] CC:
--- NOTE | 2019-09-07 07:44 | NUR ---
NURSE NOTES: Received patient from LUIS FERNANDO Vieyra. Patient is resting comfortably in bed. No signs and symptoms of pain or distress noted. Fall/Aspiration precautions in place. Patient is positive for covi9-19, all precautions taken. Call light is within reach. Will continue with the plan of care.
[2019-09-07 08:00] VITALS: BP 144/65
--- NOTE | 2019-09-07 08:26 | NUR ---
HAND-OFF: Report given to LUIS FERNANDO Heller. Pt stable.
[2019-09-07] MEDS: HydrALAZINE 25mg tab ORAL SCH ×3 (08:35→17:05)
[2019-09-07] MEDS: Phospha 250 Neutral tab ORAL SCH ×3 (08:35→17:05)
[2019-09-07] MEDS: Eliquis 2.5mg tablet ORAL SCH ×2 (08:36→20:27)
--- NOTE | 2019-09-07 09:01 | NUR ---
CASE MANAGEMENT:REVIEW 09/07/19 SI:CONTROLLED RATE JUNCTIONAL RHYTHM / ATRIAL FIBRILLATION COVID-19 (+)(+) . METABOLIC VS TOXIC ENCEPHALOPATHY . BILATERAL PLEURAL EFFUSION. PULMONARY EDEMA . AC/CHR RENAL FAILURE. UTI PSEUDOMONAS A 97.9 94 18 149/83 97% ON RA IS:LEVAQUIN PO QD PHOSPHA NEUTRAL PO TID PROSCAR PO QD FLOMAX PO BID NORVASC PO QD PROTONIX PO QD DEPAKOTE PO BID NITRO-BID Q6HR HYDRALAZINE PO TID \:2E TELE UNIT DCP: [facility] Plan: Patient participates in ADLs Patient demonstrates appropriate motor behavior Patient verbalizes/ understanding of causative factors when known Physical therapy treatment continue
--- NOTE | 2019-09-07 09:43 | General Progress Note ---
Assessment/Plan Problem List: (1) CHF (congestive heart failure) ICD Codes: I50.9 - Heart failure, unspecified SNOMED: 90148765 (2) Renal failure (ARF), acute on chronic ICD Codes: N17.9 - Acute kidney failure, unspecified; N18.9 - Chronic kidney disease, unspecified SNOMED: 402017094 (3) Encephalopathy due to metabolic factor or toxin SNOMED: 300286912 (4) Gross hematuria ICD Codes: R31.0 - Gross hematuria SNOMED: 044277182 (5) Falls frequently ICD Codes: R29.6 - Repeated falls SNOMED: 899329262 (6) Dehydration ICD Codes: E86.0 - Dehydration SNOMED: 49151117 (7) UTI (urinary tract infection) ICD Codes: N39.0 - Urinary tract infection, site not specified SNOMED: 42930253 (8) Anemia ICD Codes: D64.9 - Anemia, unspecified SNOMED: 567587642 Status: stable, progressing, not improved Assessment/Plan: o2 as needed. currently stable on room air. fall precautions. repeat cxr Encourage pos. monitor labs. IVF as needed Anxiolytics as needed. Continue blood pressure treatment. DVT and stress ulcer prophylaxis. Discharge planning to [facility] facility on hold for now. will need 2 neg covid tests. Subjective ROS Limited/Unobtainable: Yes Constitutional: Reports: malaise, weakness HEENT: Reports: no symptoms Cardiovascular: Reports: no symptoms Respiratory: Reports: no symptoms Gastrointestinal/Abdominal: Reports: no symptoms Genitourinary: Reports: no symptoms Neurologic/Psychiatric: Reports: anxiety, emotional problems, pre-existing deficit Endocrine: Reports: no symptoms Hematologic/Lymphatic: Reports: anemia Allergies: Coded Allergies: No Known Allergies (Unverified , 06/05/19) All Systems: reviewed and negative except above Subjective There have been no overnight events. Patient remains confused at baseline. per staff getting out of bed unassisted. completed treatment with hydroxychloroquine. o2 sats stable on room air. Poor p.o. intake. No fevers noted. no recent cxr. Objective Last 24 Hour Vital Signs Date Time Temp Pulse Resp B/P (MAP) Pulse Ox O2 Delivery O2 Flow Rate FiO2 09/07/19 08:36 96 144/65 09/07/19 08:35 144/65 09/07/19 06:24 149/83 09/07/19 04:00 94 09/07/19 04:00 97.9 68 18 149/83 (105) 97 09/07/19 00:00 98.2 66 18 154/71 (98) 97 09/07/19 00:00 87 09/06/19 21:00 Room Air 09/06/19 20:00 97.8 78 18 157/83 (107) 98 09/06/19 17:12 140/74 09/06/19 17:12 140/74 09/06/19 16:00 98.0 72 17 140/74 (96) 99 09/06/19 14:00 79 09/06/19 13:25 148/72 09/06/19 13:24 148/72 09/06/19 12:00 83 09/06/19 12:00 97.1 74 18 148/72 (97) 98 Intake and Output 09/06/19 09/07/19 19:00 07:00 Intake Total 840 ml Output Total 350 ml Balance 840 ml -350 ml Intake Oral 840 ml Output Urine Total 350 ml # Voids 3 # Bowel Movements 1 Height (Feet): 5 Height (Inches): 6.00 Weight (Pounds): 107 Objective General Appearance: WD/WN, alert, confused Neck: supple Cardiovascular: regular rhythm Respiratory/Chest: rhonchi - bilaterally Abdomen: normal bowel sounds, non tender, soft, no organomegaly, no mass Edema: no edema noted Arm (L), no edema noted Arm (R), no edema noted Leg (L), no edema noted Leg (R), no edema noted Pedal (L), no edema noted Pedal (R), no edema noted Generalized 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
--- NOTE | 2019-09-07 09:57 | Infectious Diseases Prog Note ---
Assessment/Plan Assessment/Plan antibiotics : none A 1. COVID 19 pneumonia test + on 4.14.20, 4.16.20 2. Pseudomonas and Raoultella urinary tract infection s/p rx 3. Renal failure. 4. hypertension 5. cardiomyopathy P 1. observe off antibiotics 2. will follow up cultures 3. Continue isolation Subjective Constitutional: Denies: fever, chills Respiratory: Denies: shortness of breath, dry cough Gastrointestinal/Abdominal: Denies: nausea, vomiting, diarrhea Musculoskeletal: Denies: pain Allergies: Coded Allergies: No Known Allergies (Unverified , 06/05/19) Objective Vital Signs Last 24 Hour Vital Signs Date Time Temp Pulse Resp B/P (MAP) Pulse Ox O2 Delivery O2 Flow Rate FiO2 09/07/19 08:36 96 144/65 09/07/19 08:35 144/65 09/07/19 06:24 149/83 09/07/19 04:00 94 09/07/19 04:00 97.9 68 18 149/83 (105) 97 09/07/19 00:00 98.2 66 18 154/71 (98) 97 09/07/19 00:00 87 09/06/19 21:00 Room Air 09/06/19 20:00 97.8 78 18 157/83 (107) 98 09/06/19 17:12 140/74 09/06/19 17:12 140/74 09/06/19 16:00 98.0 72 17 140/74 (96) 99 09/06/19 14:00 79 09/06/19 13:25 148/72 09/06/19 13:24 148/72 09/06/19 12:00 83 09/06/19 12:00 97.1 74 18 148/72 (97) 98 Height (Feet): 5 Height (Inches): 6.00 Weight (Pounds): 107 Current Medications Medications (Trade) Dose Ordered Sig/Kristine Route PRN Reason Start Time Stop Time Status Last Admin Dose Admin Amlodipine Besylate (Norvasc) 10 mg DAILY ORAL 09/03/19 09:00 09/28/19 08:59 09/07/19 08:36 Apixaban (Eliquis) 2.5 mg BID@0900,2100 ORAL 09/07/19 09:00 12/06/19 08:59 09/07/19 08:36 Divalproex Sodium (Depakote) 250 mg EVERY 12 HOURS ORAL 09/06/19 09:00 10/21/19 08:59 09/07/19 08:37 Finasteride (Proscar) 5 mg DAILY ORAL 08/29/19 09:00 11/05/19 15:44 09/07/19 08:36 Hydralazine HCl (Apresoline) 10 mg Q8H PRN IV For High Blood Pressure 08/28/19 18:15 11/26/19 18:14 09/05/19 23:35 Hydralazine HCl (Apresoline) 25 mg TID ORAL 09/06/19 09:00 12/05/19 08:59 09/07/19 08:35 Magnesium Hydroxide (Mom) 30 ml TIDPRN PRN ORAL Constipation 08/29/19 05:45 09/18/19 05:44 Nitroglycerin (Nitro-Bid) 1 inch Q6HR@0600,1200,1800 TOPIC 08/29/19 06:00 09/11/19 06:59 09/07/19 06:24 Pantoprazole (Protonix) 40 mg DAILY ORAL 08/29/19 09:00 09/25/19 08:59 09/07/19 08:35 Phosphorus (Phospha 250 Neutral) 250 mg THREE TIMES A DAY ORAL 09/05/19 09:00 10/05/19 08:59 09/07/19 08:35 Tamsulosin HCl (Flomax) 0.4 mg BEDTIME ORAL 09/06/19 21:00 10/06/19 20:59 09/06/19 21:06 Gonzalez Stephens MD Sep 07, 2019 09:57
--- NOTE | 2019-09-07 10:36 | Pulmonology Progress Note ---
Assessment/Plan Assessment/Plan IMPRESSION: 1. Pleural effusions, small bilateral. 2. Atelectasis. 3. Pulmonary edema, questionable. 4. Hypertension. 5. Hyperlipidemia. 6. positive COVID 19 7. 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 No new recommendations Kimani Hahn M.D. Subjective ROS Limited/Unobtainable: Yes Interval Events: None new reported Constitutional: Denies: fever, chills HEENT: Repors: no symptoms Respiratory: Reports: no symptoms Cardiovascular: Reports: no symptoms Gastrointestinal/Abdominal: Denies: nausea, vomiting, diarrhea Genitourinary: Reports: no symptoms Neurologic: Reports: no symptoms Musculoskeletal: Denies: pain Allergies: Coded Allergies: No Known Allergies (Unverified , 06/05/19) All Systems: reviewed and negative except above Objective Last 24 Hour Vital Signs Date Time Temp Pulse Resp B/P (MAP) Pulse Ox O2 Delivery O2 Flow Rate FiO2 09/07/19 09:00 Room Air 09/07/19 08:36 96 144/65 09/07/19 08:35 144/65 09/07/19 08:00 97.4 76 20 144/65 (91) 95 09/07/19 08:00 76 09/07/19 06:24 149/83 09/07/19 04:00 94 09/07/19 04:00 97.9 68 18 149/83 (105) 97 09/07/19 00:00 98.2 66 18 154/71 (98) 97 09/07/19 00:00 87 09/06/19 21:00 Room Air 09/06/19 20:00 97.8 78 18 157/83 (107) 98 09/06/19 17:12 140/74 09/06/19 17:12 140/74 09/06/19 16:00 98.0 72 17 140/74 (96) 99 09/06/19 14:00 79 09/06/19 13:25 148/72 09/06/19 13:24 148/72 09/06/19 12:00 83 09/06/19 12:00 97.1 74 18 148/72 (97) 98 Intake and Output 09/06/19 09/07/19 19:00 07:00 Intake Total 840 ml Output Total 350 ml Balance 840 ml -350 ml Intake Oral 840 ml Output Urine Total 350 ml # Voids 3 # Bowel Movements 1 General Appearance: no acute distress HEENT: normocephalic Respiratory/Chest: chest wall non-tender, lungs clear Cardiovascular: normal peripheral pulses Abdomen: normal bowel sounds Current Medications Medications (Trade) Dose Ordered Sig/Kristine Route PRN Reason Start Time Stop Time Status Last Admin Dose Admin Amlodipine Besylate (Norvasc) 10 mg DAILY ORAL 09/03/19 09:00 09/28/19 08:59 09/07/19 08:36 Apixaban (Eliquis) 2.5 mg BID@0900,2100 ORAL 09/07/19 09:00 12/06/19 08:59 09/07/19 08:36 Divalproex Sodium (Depakote) 250 mg EVERY 12 HOURS ORAL 09/06/19 09:00 10/21/19 08:59 09/07/19 08:37 Finasteride (Proscar) 5 mg DAILY ORAL 08/29/19 09:00 11/05/19 15:44 09/07/19 08:36 Hydralazine HCl (Apresoline) 10 mg Q8H PRN IV For High Blood Pressure 08/28/19 18:15 11/26/19 18:14 09/05/19 23:35 Hydralazine HCl (Apresoline) 25 mg TID ORAL 09/06/19 09:00 12/05/19 08:59 09/07/19 08:35 Magnesium Hydroxide (Mom) 30 ml TIDPRN PRN ORAL Constipation 08/29/19 05:45 09/18/19 05:44 Nitroglycerin (Nitro-Bid) 1 inch Q6HR@0600,1200,1800 TOPIC 08/29/19 06:00 09/11/19 06:59 09/07/19 06:24 Pantoprazole (Protonix) 40 mg DAILY ORAL 08/29/19 09:00 09/25/19 08:59 09/07/19 08:35 Phosphorus (Phospha 250 Neutral) 250 mg THREE TIMES A DAY ORAL 09/05/19 09:00 10/05/19 08:59 09/07/19 08:35 Tamsulosin HCl (Flomax) 0.4 mg BEDTIME ORAL 09/06/19 21:00 10/06/19 20:59 09/06/19 21:06 Kimani Hahn MD Sep 07, 2019 10:36
--- NOTE | 2019-09-07 10:55 | NUR ---
RADIOLOGY DEPT., CHEST X-RAY DONE.-P.DYE
--- NOTE | 2019-09-07 11:31 | Urology Progress Note ---
Assessment/Plan Status: stable, progressing, not improved Assessment/Plan: 1. Gross hematuria hx, presumably secondary to Doshi trauma, resolved. 2. BPH. 3. Urinary retention. 4. Neurogenic bladder. 5. Pyuria?UTI/colonized. 6. Proteinuria. 7. Renal insufficiency, which appears to be acute on chronic. 8. Rule out urethral stricture. monitor clinically doshi out, voiding/incontinent on proscar flomax was held? resume s/p abx off anticoagulation, resume? restraints PRN cysto at some point monitor PVR and reinsert doshi PRN renal imaging? COVID (+) Subjective Allergies: Coded Allergies: No Known Allergies (Unverified , 06/05/19) Subjective all noted, confused, doshi out, incontinent, condom cath Objective Last 24 Hour Vital Signs Date Time Temp Pulse Resp B/P (MAP) Pulse Ox O2 Delivery O2 Flow Rate FiO2 09/07/19 09:00 Room Air 09/07/19 08:36 96 144/65 09/07/19 08:35 144/65 09/07/19 08:00 97.4 76 20 144/65 (91) 95 09/07/19 08:00 76 09/07/19 06:24 149/83 09/07/19 04:00 94 09/07/19 04:00 97.9 68 18 149/83 (105) 97 09/07/19 00:00 98.2 66 18 154/71 (98) 97 09/07/19 00:00 87 09/06/19 21:00 Room Air 09/06/19 20:00 97.8 78 18 157/83 (107) 98 09/06/19 17:12 140/74 09/06/19 17:12 140/74 09/06/19 16:00 98.0 72 17 140/74 (96) 99 09/06/19 14:00 79 09/06/19 13:25 148/72 09/06/19 13:24 148/72 09/06/19 12:00 83 09/06/19 12:00 97.1 74 18 148/72 (97) 98 Intake and Output 09/06/19 09/07/19 19:00 07:00 Intake Total 840 ml Output Total 350 ml Balance 840 ml -350 ml Intake Oral 840 ml Output Urine Total 350 ml # Voids 3 # Bowel Movements 1 Microbiology Date/Time Source Procedure Growth Status 09/01/19 16:15 Nasopharynx Coronavirus COVID-19 PCR ([facility]) - Final Complete 08/28/19 12:31 Indwelling Cath Urine Culture - Final Pseudomonas Aeruginosa Raoultella Planticola Complete 08/06/19 04:45 Rectum VRE Culture - Final NO VANCOMYCIN RESISTANT ENTEROCOCCUS ... Complete Current Medications Medications (Trade) Dose Ordered Sig/Kristine Route PRN Reason Start Time Stop Time Status Last Admin Dose Admin Amlodipine Besylate (Norvasc) 10 mg DAILY ORAL 09/03/19 09:00 09/28/19 08:59 09/07/19 08:36 Apixaban (Eliquis) 2.5 mg BID@0900,2100 ORAL 09/07/19 09:00 12/06/19 08:59 09/07/19 08:36 Divalproex Sodium (Depakote) 250 mg EVERY 12 HOURS ORAL 09/06/19 09:00 10/21/19 08:59 09/07/19 08:37 Finasteride (Proscar) 5 mg DAILY ORAL 08/29/19 09:00 11/05/19 15:44 09/07/19 08:36 Hydralazine HCl (Apresoline) 10 mg Q8H PRN IV For High Blood Pressure 08/28/19 18:15 11/26/19 18:14 09/05/19 23:35 Hydralazine HCl (Apresoline) 25 mg TID ORAL 09/06/19 09:00 12/05/19 08:59 09/07/19 08:35 Magnesium Hydroxide (Mom) 30 ml TIDPRN PRN ORAL Constipation 08/29/19 05:45 09/18/19 05:44 Nitroglycerin (Nitro-Bid) 1 inch Q6HR@0600,1200,1800 TOPIC 08/29/19 06:00 09/11/19 06:59 09/07/19 06:24 Pantoprazole (Protonix) 40 mg DAILY ORAL 08/29/19 09:00 09/25/19 08:59 09/07/19 08:35 Phosphorus (Phospha 250 Neutral) 250 mg THREE TIMES A DAY ORAL 09/05/19 09:00 10/05/19 08:59 09/07/19 08:35 Tamsulosin HCl (Flomax) 0.4 mg BEDTIME ORAL 09/06/19 21:00 10/06/19 20:59 09/06/19 21:06 Height (Feet): 5 Height (Inches): 6.00 Weight (Pounds): 107 Objective exam stable abdomen soft urine grossly yellow MumtazshMiki morrow MD Sep 07, 2019 11:31
--- NOTE | 2019-09-07 11:59 | Diagnostic Imaging Report ---
Indication: Cough Technique: One view of the chest Comparison: 08/11/2019 Findings: There is hazy right infrahilar infiltrate. Nodular parenchymal opacities are seen in the left lung base. Previously demonstrated pleural effusions are no longer evident. Previously demonstrated bilateral perihilar infiltrates are no longer evident. The heart size is normal. Impression: Hazy right infrahilar infiltrate and nodular left basilar opacities. Findings may represent pneumonia versus pulmonary edema. Previously demonstrated perihilar edema and bilateral pleural effusions are no longer evident
[2019-09-07 12:00] VITALS: BP 135/60
--- NOTE | 2019-09-07 12:14 | NUR ---
*-*INSURANCE*-* UPDATED CLINICALS AND REVIEWS HAVE BEEN FACXED TO: DEE ARAGON:GLENIS P: [phone] F: [phone] REF# [id number]
--- NOTE | 2019-09-07 13:07 | Nephrology Progress Note ---
Assessment/Plan Problem List: (1) Renal failure (ARF), acute on chronic Assessment: Serum creatinine stabilizing (2) Falls frequently (3) UTI (urinary tract infection) Assessment: and hematuria (4) Anemia (5) Dehydration (6) Encephalopathy due to metabolic factor or toxin Assessment Frequent falls Acute renal failure with underlying dehydration Anemia, underlying etiology unclear UTI (urinary tract infection) Toxic metabolic encephalopathy Plan Patient now COVID-19 positive Start D5W for hypernatremia as needed P.o. intake variable Oral potassium supplement as needed Discharge planning in process previously: Increase Flomax to twice daily Correct electrolytes as needed Transfusion as needed 2D echocardiogram ejection fraction 60% Kidney ultrasound pending results Monitor renal parameters Avoid nephrotoxics Antibiotics for UTI Continue per consultants Subjective ROS Limited/Unobtainable: No Constitutional: Reports: malaise, weakness Objective Objective Last 24 Hour Vital Signs Date Time Temp Pulse Resp B/P (MAP) Pulse Ox O2 Delivery O2 Flow Rate FiO2 09/07/19 12:43 135/60 09/07/19 12:42 135/60 09/07/19 09:00 Room Air 09/07/19 08:36 96 144/65 09/07/19 08:35 144/65 09/07/19 08:00 97.4 76 20 144/65 (91) 95 09/07/19 08:00 76 09/07/19 06:24 149/83 09/07/19 04:00 94 09/07/19 04:00 97.9 68 18 149/83 (105) 97 09/07/19 00:00 98.2 66 18 154/71 (98) 97 09/07/19 00:00 87 09/06/19 21:00 Room Air 09/06/19 20:00 97.8 78 18 157/83 (107) 98 09/06/19 17:12 140/74 09/06/19 17:12 140/74 09/06/19 16:00 98.0 72 17 140/74 (96) 99 09/06/19 14:00 79 09/06/19 13:25 148/72 09/06/19 13:24 148/72 Intake and Output 09/06/19 09/07/19 19:00 07:00 Intake Total 840 ml Output Total 350 ml Balance 840 ml -350 ml Intake Oral 840 ml Output Urine Total 350 ml # Voids 3 # Bowel Movements 1 Height (Feet): 5 Height (Inches): 6.00 Weight (Pounds): 107 General Appearance: no apparent distress Respiratory/Chest: decreased breath sounds Abdomen: soft Objective No change Juan Jade MD Sep 07, 2019 13:07
[2019-09-07 16:37] VITALS: BP 140/64
--- NOTE | 2019-09-07 19:31 | NUR ---
HAND-OFF: Report given to Azalia GOULD. Patient is in stable condition.
[2019-09-07 20:00] VITALS: BP 175/63
--- NOTE | 2019-09-07 20:14 | NUR ---
NURSE NOTES: cHANGED DEPAKOTE 250 TO VALPROIC ACID LIQUID 250 PER PHARMACY AND [facility] ORDER SINCE TAB CANT BE CRUSHED. WILL CONTINUE TO MONITOR
[2019-09-07] MEDS: Valproic Acid 250mg/5ml Liquid NG SCH (20:27)
[2019-09-07] MEDS: Tamsulosin 0.4mg cap ORAL SCH (20:28)
[2019-09-08] VITALS: BP 170/70
--- NOTE | 2019-09-08 00:29 | Progress Note ---
DATE: 09/07/2019 SUBJECTIVE: The patient is doing well and saturating well. Decreased agitation, confused, manageable on Depakote, more talkative. MENTAL STATUS EXAMINATION: Alert, confused, disoriented. Mood is neutral. No behavior issues. Affect is flat. Thought process is concrete. Thought content, there is a paucity of thought content. Cognition is impaired. Insight and judgment, impaired. ASSESSMENT: Dementia with behavior disturbance. PLAN: 1. Continue the low dose of Depakote. 2. Discussed with the nurse. Loco Luu M.D. DR: SHRUTHI JOB#: [id number] CC:
[2019-09-08 04:00] VITALS: BP 156/67
--- NOTE | 2019-09-08 05:00 | Progress Note ---
DATE: 09/07/2019 CARDIOLOGY PROGRESS NOTE SUBJECTIVE: The patient remains with atrial fibrillation, rate controlled. PHYSICAL EXAMINATION: VITAL SIGNS: Blood pressure 135/60, pulse 76, respirations 20. LUNGS: Bilateral breath sounds. Rhonchi. CARDIAC: Irregularly irregular rhythm. Normal S1, S2. ABDOMEN: Soft. EXTREMITIES: No edema. IMPRESSION: 1. COVID-19 pneumonia. 2. Pleural effusions. 3. Acute and chronic diastolic congestive heart failure. 4. Valvular cardiomyopathy. 5. Pulmonary hypertension. 6. Paroxysmal atrial fibrillation. 7. Episodes of junctional rhythm. 8. Hypertensive heart disease. 9. Status post hydroxychloroquine therapy with no complications. PLAN: Full anticoagulation. Titrate anti-failure regimen. Respiratory therapy. Await clearance of COVID-19 for discharge. Gamaliel Salas M.D. DR: SONJA JOB#: [id number] CC:
[2019-09-08] MEDS: Nitroglycerin 2% oint pkt TOPIC SCH ×3 (06:00→17:37)
[2019-09-08 07:24] LABS: EOSINOPHILS % (AUTO) 0.5 % (0.0-3.0); HEMATOCRIT 27.2 % (42.0-52.0); HEMOGLOBIN 9.4 G/DL (14.2-18.0); LYMPHOCYTES % (AUTO) 12.7 % (20.0-45.0); MEAN CORPUSCULAR VOLUME 85 FL (80-99); MONOCYTES % (AUTO) 9.8 % (1.0-10.0); PLATELET COUNT 173 K/UL (150-450); RED BLOOD COUNT 3.21 M/UL (4.70-6.10); RED CELL DISTRIBUTION WIDTH 12.7 % (11.6-14.8); WHITE BLOOD COUNT 4.8 K/UL (4.8-10.8)
--- NOTE | 2019-09-08 07:26 | NUR ---
HAND-OFF: Report given to LUIS FERNANDO [place]. Pt stable.
[2019-09-08 07:54] LABS: ALANINE AMINOTRANSFERASE 32 U/L (12-78); ALBUMIN 2.4 G/DL (3.4-5.0); ALBUMIN/GLOBULIN RATIO 0.7 (1.0-2.7); ALKALINE PHOSPHATASE 116 U/L (46-116); ANION GAP 13 mmol/L (5-15); ASPARTATE AMINO TRANSFERASE 37 U/L (15-37); BILIRUBIN,TOTAL 0.4 MG/DL (0.2-1.0); BLOOD UREA NITROGEN 26 mg/dL (7-18); CALCIUM 9.4 MG/DL (8.5-10.1); CARBON DIOXIDE 23 MMOL/L (21-32); CHLORIDE 107 MMOL/L (98-107); CREATININE 1.7 MG/DL (0.55-1.30); PHOSPHORUS 3.8 MG/DL (2.5-4.9); POTASSIUM 3.2 MMOL/L (3.5-5.1); SODIUM 143 MMOL/L (136-145)
[2019-09-08 08:00] VITALS: BP 130/78
--- NOTE | 2019-09-08 08:00 | NUR ---
NURSE NOTES: Received patient Joaquim Vieyra. Patiet is awake, confused. Follow simple commands. able to move all extremities well. NO complain of pain or discomfort at this time. Fall/Aspiration precautions in place. encouraged to use call gaona for assistance. Will continue latanya of care.
--- NOTE | 2019-09-08 08:42 | General Progress Note ---
Assessment/Plan Problem List: (1) CHF (congestive heart failure) ICD Codes: I50.9 - Heart failure, unspecified SNOMED: 40615471 (2) Renal failure (ARF), acute on chronic ICD Codes: N17.9 - Acute kidney failure, unspecified; N18.9 - Chronic kidney disease, unspecified SNOMED: 977053135 (3) Encephalopathy due to metabolic factor or toxin SNOMED: 955314030 (4) Gross hematuria ICD Codes: R31.0 - Gross hematuria SNOMED: 440984681 (5) Falls frequently ICD Codes: R29.6 - Repeated falls SNOMED: 532053665 (6) Dehydration ICD Codes: E86.0 - Dehydration SNOMED: 55232639 (7) UTI (urinary tract infection) ICD Codes: N39.0 - Urinary tract infection, site not specified SNOMED: 88338770 (8) Anemia ICD Codes: D64.9 - Anemia, unspecified SNOMED: 196827735 Status: stable, progressing, not improved Assessment/Plan: o2 as needed. currently stable on room air. fall precautions. repeat cxr reviewed- +infiltrates and nodular opacities Encourage pos. monitor labs. IVF as needed Anxiolytics as needed. Continue blood pressure treatment. DVT and stress ulcer prophylaxis. [facility] on [facility] for now. will need 2 neg covid tests. Subjective ROS Limited/Unobtainable: Yes Constitutional: Reports: malaise, weakness HEENT: Reports: no symptoms Cardiovascular: Reports: no symptoms Respiratory: Reports: no symptoms Gastrointestinal/Abdominal: Reports: poor appetite, poor fluid intake Genitourinary: Reports: no symptoms Neurologic/Psychiatric: Reports: anxiety, emotional problems, pre-existing deficit Endocrine: Reports: no symptoms Hematologic/Lymphatic: Reports: anemia Allergies: Coded Allergies: No Known Allergies (Unverified , 06/05/19) All Systems: reviewed and negative except above Subjective There have been no overnight events. Patient remains confused at baseline. per staff getting out of bed unassisted. completed treatment with hydroxychloroquine. o2 sats stable on room air. Poor p.o. intake. No fevers noted. no recent cxr. psych and cards noted. Objective Last 24 Hour Vital Signs Date Time Temp Pulse Resp B/P (MAP) Pulse Ox O2 Delivery O2 Flow Rate FiO2 09/08/19 08:00 96.8 102 19 130/78 (95) 96 09/08/19 06:00 170/70 09/08/19 04:00 98.1 81 22 156/67 (96) 96 09/08/19 04:00 76 09/08/19 00:00 76 09/08/19 00:00 98.1 84 21 170/70 (103) 95 09/07/19 23:21 175/63 09/07/19 21:00 Room Air 09/07/19 20:00 80 09/07/19 20:00 98.2 79 23 175/63 (100) 95 09/07/19 17:05 140/64 09/07/19 17:05 140/64 09/07/19 16:37 97.7 86 18 140/64 (89) 95 09/07/19 16:00 68 09/07/19 12:43 135/60 09/07/19 12:42 135/60 09/07/19 12:00 97.5 79 18 135/60 (85) 96 09/07/19 12:00 79 09/07/19 09:00 Room Air Intake and Output 09/07/19 09/08/19 19:00 07:00 Intake Total 360 ml Balance 360 ml Intake Oral 360 ml # Voids 3 3 Laboratory Tests 09/08/19 06:09: White Blood Count 4.8, Red Blood Count 3.21L, Hemoglobin 9.4L, Hematocrit 27.2L , Mean Corpuscular Volume 85, Mean Corpuscular Hemoglobin 29.3, Mean Corpuscular Hemoglobin Concent 34.6, Red Cell Distribution Width 12.7, Platelet Count 173, Mean Platelet Volume 6.3L, Neutrophils (%) (Auto) 76.0H, Lymphocytes (%) (Auto) 12.7L, Monocytes (%) (Auto) 9.8, Eosinophils (%) (Auto) 0.5, Basophils (%) (Auto) 1.0, Sodium Level 143, Potassium Level 3.2L, Chloride Level 107, Carbon Dioxide Level 23, Anion Gap 13, Blood Urea Nitrogen 26H, Creatinine 1.7H, Estimat Glomerular Filtration Rate 38.6, Glucose Level 71L, Calcium Level 9.4, Phosphorus Level 3.8, Magnesium Level 1.8, Total Bilirubin 0.4, Aspartate Amino Transf (AST/SGOT) 37, Alanine Aminotransferase (ALT/SGPT) 32, Alkaline Phosphatase 116, C-Reactive Protein, Quantitative 7.2H, Pro-B-Type Natriuretic Peptide 9950H, Total Protein 6.0L, Albumin 2.4L, Globulin 3.6, Albumin/Globulin Ratio 0.7L Height (Feet): 5 Height (Inches): 6.00 Weight (Pounds): 107 Objective General Appearance: WD/WN, alert, confused Neck: supple Cardiovascular: regular rhythm Respiratory/Chest: rhonchi - bilaterally Abdomen: normal bowel sounds, non tender, soft, no organomegaly, no mass Edema: no edema noted Arm (L), no edema noted Arm (R), no edema noted Leg (L), no edema noted Leg (R), no edema noted Pedal (L), no edema noted Pedal (R), no edema noted Generalized Neurologic: surgery aid II-XII grossly normal, alert, responsive Iggy Echavarria MD Sep 08, 2019 08:42
[2019-09-08] MEDS: Eliquis 2.5mg tablet ORAL SCH ×2 (08:50→20:57)
[2019-09-08] MEDS: HydrALAZINE 25mg tab ORAL SCH ×3 (08:50→17:37)
[2019-09-08] MEDS: Phospha 250 Neutral tab ORAL SCH (08:50)
[2019-09-08] MEDS: Valproic Acid 250mg/5ml Liquid NG SCH ×2 (08:50→20:57)
--- NOTE | 2019-09-08 11:13 | Urology Progress Note ---
Assessment/Plan Status: stable, progressing, not improved Assessment/Plan: 1. Gross hematuria hx, presumably secondary to Doshi trauma, resolved. 2. BPH. 3. Urinary retention. 4. Neurogenic bladder. 5. Pyuria?UTI/colonized. 6. Proteinuria. 7. Renal insufficiency, which appears to be acute on chronic. 8. Rule out urethral stricture. monitor clinically doshi out, voiding/incontinent on proscar flomax was held? resume s/p abx off anticoagulation, resume? restraints PRN cysto at some point monitor PVR and reinsert doshi PRN renal imaging? COVID (+) Subjective Allergies: Coded Allergies: No Known Allergies (Unverified , 06/05/19) Subjective all noted, confused, doshi out, incontinent, condom cath Objective Last 24 Hour Vital Signs Date Time Temp Pulse Resp B/P (MAP) Pulse Ox O2 Delivery O2 Flow Rate FiO2 09/08/19 09:00 Room Air 09/08/19 08:50 130/78 09/08/19 08:50 102 130/78 09/08/19 08:00 96.8 102 19 130/78 (95) 96 09/08/19 08:00 70 09/08/19 06:00 170/70 09/08/19 04:00 98.1 81 22 156/67 (96) 96 09/08/19 04:00 76 09/08/19 00:00 76 09/08/19 00:00 98.1 84 21 170/70 (103) 95 09/07/19 23:21 175/63 09/07/19 21:00 Room Air 09/07/19 20:00 80 09/07/19 20:00 98.2 79 23 175/63 (100) 95 09/07/19 17:05 140/64 09/07/19 17:05 140/64 09/07/19 16:37 97.7 86 18 140/64 (89) 95 09/07/19 16:00 68 09/07/19 12:43 135/60 09/07/19 12:42 135/60 09/07/19 12:00 97.5 79 18 135/60 (85) 96 09/07/19 12:00 79 Intake and Output 09/07/19 09/08/19 19:00 07:00 Intake Total 360 ml Balance 360 ml Intake Oral 360 ml # Voids 3 3 Microbiology Date/Time Source Procedure Growth Status 09/01/19 16:15 Nasopharynx Coronavirus COVID-19 PCR ([facility]) - Final Complete 08/28/19 12:31 Indwelling Cath Urine Culture - Final Pseudomonas Aeruginosa Raoultella Planticola Complete 08/06/19 04:45 Rectum VRE Culture - Final NO VANCOMYCIN RESISTANT ENTEROCOCCUS ... Complete Current Medications Medications (Trade) Dose Ordered Sig/Kristine Route PRN Reason Start Time Stop Time Status Last Admin Dose Admin Amlodipine Besylate (Norvasc) 10 mg DAILY ORAL 09/03/19 09:00 09/28/19 08:59 09/08/19 08:50 Apixaban (Eliquis) 2.5 mg BID@0900,2100 ORAL 09/07/19 09:00 12/06/19 08:59 09/08/19 08:50 Finasteride (Proscar) 5 mg DAILY ORAL 08/29/19 09:00 11/05/19 15:44 09/08/19 08:50 Hydralazine HCl (Apresoline) 10 mg Q8H PRN IV For High Blood Pressure 08/28/19 18:15 11/26/19 18:14 09/07/19 23:21 Hydralazine HCl (Apresoline) 25 mg TID ORAL 09/06/19 09:00 12/05/19 08:59 09/08/19 08:50 Magnesium Hydroxide (Mom) 30 ml TIDPRN PRN ORAL Constipation 08/29/19 05:45 09/18/19 05:44 Nitroglycerin (Nitro-Bid) 1 inch Q6HR@0600,1200,1800 TOPIC 08/29/19 06:00 09/11/19 06:59 09/08/19 06:00 Pantoprazole (Protonix) 40 mg DAILY ORAL 08/29/19 09:00 09/25/19 08:59 09/08/19 08:50 Phosphorus (Phospha 250 Neutral) 250 mg THREE TIMES A DAY ORAL 09/05/19 09:00 10/05/19 08:59 09/08/19 08:50 Tamsulosin HCl (Flomax) 0.4 mg BEDTIME ORAL 09/06/19 21:00 10/06/19 20:59 09/07/19 20:28 Valproic Acid (Depakene) 250 mg EVERY 12 HOURS NG 09/07/19 21:00 10/22/19 20:59 09/08/19 08:50 Laboratory Tests 09/08/19 06:09: White Blood Count 4.8, Red Blood Count 3.21L, Hemoglobin 9.4L, Hematocrit 27.2L , Mean Corpuscular Volume 85, Mean Corpuscular Hemoglobin 29.3, Mean Corpuscular Hemoglobin Concent 34.6, Red Cell Distribution Width 12.7, Platelet Count 173, Mean Platelet Volume 6.3L, Neutrophils (%) (Auto) 76.0H, Lymphocytes (%) (Auto) 12.7L, Monocytes (%) (Auto) 9.8, Eosinophils (%) (Auto) 0.5, Basophils (%) (Auto) 1.0, Sodium Level 143, Potassium Level 3.2L, Chloride Level 107, Carbon Dioxide Level 23, Anion Gap 13, Blood Urea Nitrogen 26H, Creatinine 1.7H, Estimat Glomerular Filtration Rate 38.6, Glucose Level 71L, Calcium Level 9.4, Phosphorus Level 3.8, Magnesium Level 1.8, Total Bilirubin 0.4, Aspartate Amino Transf (AST/SGOT) 37, Alanine Aminotransferase (ALT/SGPT) 32, Alkaline Phosphatase 116, C-Reactive Protein, Quantitative 7.2H, Pro-B-Type Natriuretic Peptide 9950H, Total Protein 6.0L, Albumin 2.4L, Globulin 3.6, Albumin/Globulin Ratio 0.7L Height (Feet): 5 Height (Inches): 6.00 Weight (Pounds): 107 Objective exam stable abdomen soft urine grossly yellow Bamshad,Miki Perry MD Sep 08, 2019 11:13
--- NOTE | 2019-09-08 11:46 | Infectious Diseases Prog Note ---
Assessment/Plan Assessment/Plan A 1. COVID 19 pneumonia test + on 4.14.20, 4.16.20 2. Pseudomonas and Raoultella urinary tract infection s/p rx 3. Renal failure. 4. hypertension 5. cardiomyopathy P 1. observe off antibiotics 2. will follow up cultures 3. Continue isolation Subjective ROS Limited/Unobtainable: Yes Constitutional: Denies: fever Allergies: Coded Allergies: No Known Allergies (Unverified , 06/05/19) Objective Vital Signs Last 24 Hour Vital Signs Date Time Temp Pulse Resp B/P (MAP) Pulse Ox O2 Delivery O2 Flow Rate FiO2 09/08/19 09:00 Room Air 09/08/19 08:50 130/78 09/08/19 08:50 102 130/78 09/08/19 08:00 96.8 102 19 130/78 (95) 96 09/08/19 08:00 70 09/08/19 06:00 170/70 09/08/19 04:00 98.1 81 22 156/67 (96) 96 09/08/19 04:00 76 09/08/19 00:00 76 09/08/19 00:00 98.1 84 21 170/70 (103) 95 09/07/19 23:21 175/63 09/07/19 21:00 Room Air 09/07/19 20:00 80 09/07/19 20:00 98.2 79 23 175/63 (100) 95 09/07/19 17:05 140/64 09/07/19 17:05 140/64 09/07/19 16:37 97.7 86 18 140/64 (89) 95 09/07/19 16:00 68 09/07/19 12:43 135/60 09/07/19 12:42 135/60 09/07/19 12:00 97.5 79 18 135/60 (85) 96 09/07/19 12:00 79 Height (Feet): 5 Height (Inches): 6.00 Weight (Pounds): 107 General Appearance: no acute distress HEENT: mucous membranes moist Respiratory/Chest: other - on room air Cardiovascular: tachycardia Abdomen: soft, non tender Extremities: no edema Neurologic/Psychiatric: other - sleeping Laboratory Tests Test 09/08/19 06:09 White Blood Count 4.8 K/UL (4.8-10.8) Red Blood Count 3.21 M/UL (4.70-6.10) L Hemoglobin 9.4 G/DL (14.2-18.0) L Hematocrit 27.2 % (42.0-52.0) L Mean Corpuscular Volume 85 FL (80-99) Mean Corpuscular Hemoglobin 29.3 PG (27.0-31.0) Mean Corpuscular Hemoglobin Concent 34.6 G/DL (32.0-36.0) Red Cell Distribution Width 12.7 % (11.6-14.8) Platelet Count 173 K/UL (150-450) Mean Platelet Volume 6.3 FL (6.5-10.1) L Neutrophils (%) (Auto) 76.0 % (45.0-75.0) H Lymphocytes (%) (Auto) 12.7 % (20.0-45.0) L Monocytes (%) (Auto) 9.8 % (1.0-10.0) Eosinophils (%) (Auto) 0.5 % (0.0-3.0) Basophils (%) (Auto) 1.0 % (0.0-2.0) Sodium Level 143 MMOL/L (136-145) Potassium Level 3.2 MMOL/L (3.5-5.1) L Chloride Level 107 MMOL/L (98-107) Carbon Dioxide Level 23 MMOL/L (21-32) Anion Gap 13 mmol/L (5-15) Blood Urea Nitrogen 26 mg/dL (7-18) H Creatinine 1.7 MG/DL (0.55-1.30) H Estimat Glomerular Filtration Rate 38.6 mL/min (>60) Glucose Level 71 MG/DL (74-106) L Calcium Level 9.4 MG/DL (8.5-10.1) Phosphorus Level 3.8 MG/DL (2.5-4.9) Magnesium Level 1.8 MG/DL (1.8-2.4) Total Bilirubin 0.4 MG/DL (0.2-1.0) Aspartate Amino Transf (AST/SGOT) 37 U/L (15-37) Alanine Aminotransferase (ALT/SGPT) 32 U/L (12-78) Alkaline Phosphatase 116 U/L (46-116) C-Reactive Protein, Quantitative 7.2 mg/dL (0.00-0.90) H Pro-B-Type Natriuretic Peptide 9950 pg/mL (0-125) H Total Protein 6.0 G/DL (6.4-8.2) L Albumin 2.4 G/DL (3.4-5.0) L Globulin 3.6 g/dL Albumin/Globulin Ratio 0.7 (1.0-2.7) L Current Medications Medications (Trade) Dose Ordered Sig/Kristine Route PRN Reason Start Time Stop Time Status Last Admin Dose Admin Amlodipine Besylate (Norvasc) 10 mg DAILY ORAL 09/03/19 09:00 09/28/19 08:59 09/08/19 08:50 Apixaban (Eliquis) 2.5 mg BID@0900,2100 ORAL 09/07/19 09:00 12/06/19 08:59 09/08/19 08:50 Finasteride (Proscar) 5 mg DAILY ORAL 08/29/19 09:00 11/05/19 15:44 09/08/19 08:50 Hydralazine HCl (Apresoline) 10 mg Q8H PRN IV For High Blood Pressure 08/28/19 18:15 11/26/19 18:14 09/07/19 23:21 Hydralazine HCl (Apresoline) 25 mg TID ORAL 09/06/19 09:00 12/05/19 08:59 09/08/19 08:50 Magnesium Hydroxide (Mom) 30 ml TIDPRN PRN ORAL Constipation 08/29/19 05:45 09/18/19 05:44 Nitroglycerin (Nitro-Bid) 1 inch Q6HR@0600,1200,1800 TOPIC 08/29/19 06:00 09/11/19 06:59 09/08/19 06:00 Pantoprazole (Protonix) 40 mg DAILY ORAL 08/29/19 09:00 09/25/19 08:59 09/08/19 08:50 Phosphorus (Phospha 250 Neutral) 250 mg THREE TIMES A DAY ORAL 09/05/19 09:00 10/05/19 08:59 09/08/19 08:50 Tamsulosin HCl (Flomax) 0.4 mg BEDTIME ORAL 09/06/19 21:00 10/06/19 20:59 09/07/19 20:28 Valproic Acid (Depakene) 250 mg EVERY 12 HOURS NG 09/07/19 21:00 10/22/19 20:59 09/08/19 08:50 Cr Mauro MD Sep 08, 2019 11:45
--- NOTE | 2019-09-08 11:46 | Nephrology Progress Note ---
Assessment/Plan Problem List: (1) Renal failure (ARF), acute on chronic Assessment: Serum creatinine stabilizing (2) Falls frequently (3) UTI (urinary tract infection) Assessment: and hematuria (4) Anemia (5) Dehydration (6) Encephalopathy due to metabolic factor or toxin Assessment Frequent falls Acute renal failure with underlying dehydration Anemia, underlying etiology unclear UTI (urinary tract infection) Toxic metabolic encephalopathy Plan Patient now COVID-19 positive Start D5W for hypernatremia as needed P.o. intake variable Oral potassium supplement as needed Discharge planning in process previously: Increase Flomax to twice daily Correct electrolytes as needed Transfusion as needed 2D echocardiogram ejection fraction 60% Kidney ultrasound pending results Monitor renal parameters Avoid nephrotoxics Antibiotics for UTI Continue per consultants Subjective ROS Limited/Unobtainable: No Constitutional: Reports: malaise, weakness Objective Objective Last 24 Hour Vital Signs Date Time Temp Pulse Resp B/P (MAP) Pulse Ox O2 Delivery O2 Flow Rate FiO2 09/08/19 09:00 Room Air 09/08/19 08:50 130/78 09/08/19 08:50 102 130/78 09/08/19 08:00 96.8 102 19 130/78 (95) 96 09/08/19 08:00 70 09/08/19 06:00 170/70 09/08/19 04:00 98.1 81 22 156/67 (96) 96 09/08/19 04:00 76 09/08/19 00:00 76 09/08/19 00:00 98.1 84 21 170/70 (103) 95 09/07/19 23:21 175/63 09/07/19 21:00 Room Air 09/07/19 20:00 80 09/07/19 20:00 98.2 79 23 175/63 (100) 95 09/07/19 17:05 140/64 09/07/19 17:05 140/64 09/07/19 16:37 97.7 86 18 140/64 (89) 95 09/07/19 16:00 68 09/07/19 12:43 135/60 09/07/19 12:42 135/60 09/07/19 12:00 97.5 79 18 135/60 (85) 96 09/07/19 12:00 79 Intake and Output 09/07/19 09/08/19 19:00 07:00 Intake Total 360 ml Balance 360 ml Intake Oral 360 ml # Voids 3 3 Laboratory Tests 09/08/19 06:09: White Blood Count 4.8, Red Blood Count 3.21L, Hemoglobin 9.4L, Hematocrit 27.2L , Mean Corpuscular Volume 85, Mean Corpuscular Hemoglobin 29.3, Mean Corpuscular Hemoglobin Concent 34.6, Red Cell Distribution Width 12.7, Platelet Count 173, Mean Platelet Volume 6.3L, Neutrophils (%) (Auto) 76.0H, Lymphocytes (%) (Auto) 12.7L, Monocytes (%) (Auto) 9.8, Eosinophils (%) (Auto) 0.5, Basophils (%) (Auto) 1.0, Sodium Level 143, Potassium Level 3.2L, Chloride Level 107, Carbon Dioxide Level 23, Anion Gap 13, Blood Urea Nitrogen 26H, Creatinine 1.7H, Estimat Glomerular Filtration Rate 38.6, Glucose Level 71L, Calcium Level 9.4, Phosphorus Level 3.8, Magnesium Level 1.8, Total Bilirubin 0.4, Aspartate Amino Transf (AST/SGOT) 37, Alanine Aminotransferase (ALT/SGPT) 32, Alkaline Phosphatase 116, C-Reactive Protein, Quantitative 7.2H, Pro-B-Type Natriuretic Peptide 9950H, Total Protein 6.0L, Albumin 2.4L, Globulin 3.6, Albumin/Globulin Ratio 0.7L Height (Feet): 5 Height (Inches): 6.00 Weight (Pounds): 107 General Appearance: no apparent distress, lethargic Respiratory/Chest: decreased breath sounds Abdomen: soft Objective No change Juan Jade MD Sep 08, 2019 11:46
[2019-09-08 11:58] VITALS: BP 129/56
--- NOTE | 2019-09-08 13:27 | NUR ---
*-*INSURANCE*-* UPDATED CLINICALS AND REVIEWS HAVE BEEN FACXED TO: DEE ARAGON:GLENIS P: [phone] F: [phone] REF# [id number]
--- NOTE | 2019-09-08 13:40 | Pulmonology Progress Note ---
Assessment/Plan Assessment/Plan IMPRESSION: 1. Pleural effusions, small bilateral. 2. Atelectasis. 3. Pulmonary edema, questionable. 4. Hypertension. 5. Hyperlipidemia. 6. positive COVID 19 7. UTI DISCUSSION: The patient is saturating well on room air I will follow as helpdesk analyst. No new recommendations Kimani Hahn M.D. Subjective ROS Limited/Unobtainable: No Interval Events: None new reported Constitutional: Denies: fever HEENT: Repors: no symptoms Respiratory: Reports: no symptoms Cardiovascular: Reports: no symptoms Gastrointestinal/Abdominal: Denies: nausea, vomiting, diarrhea Genitourinary: Reports: no symptoms Neurologic: Reports: no symptoms Musculoskeletal: Denies: pain Allergies: Coded Allergies: No Known Allergies (Unverified , 06/05/19) All Systems: reviewed and negative except above Objective Last 24 Hour Vital Signs Date Time Temp Pulse Resp B/P (MAP) Pulse Ox O2 Delivery O2 Flow Rate FiO2 09/08/19 13:22 129/56 09/08/19 12:00 129/56 09/08/19 11:58 97.6 77 20 129/56 (80) 98 09/08/19 09:00 Room Air 09/08/19 08:50 130/78 09/08/19 08:50 102 130/78 09/08/19 08:00 96.8 102 19 130/78 (95) 96 09/08/19 08:00 70 09/08/19 06:00 170/70 09/08/19 04:00 98.1 81 22 156/67 (96) 96 09/08/19 04:00 76 09/08/19 00:00 76 09/08/19 00:00 98.1 84 21 170/70 (103) 95 09/07/19 23:21 175/63 09/07/19 21:00 Room Air 09/07/19 20:00 80 09/07/19 20:00 98.2 79 23 175/63 (100) 95 09/07/19 17:05 140/64 09/07/19 17:05 140/64 09/07/19 16:37 97.7 86 18 140/64 (89) 95 09/07/19 16:00 68 Intake and Output 09/07/19 09/08/19 19:00 07:00 Intake Total 360 ml Balance 360 ml Intake Oral 360 ml # Voids 3 3 General Appearance: no acute distress HEENT: mucous membranes moist Respiratory/Chest: chest wall non-tender, lungs clear Cardiovascular: normal peripheral pulses Abdomen: soft, non tender Extremities: no edema Neurologic/Psychiatric: other - sleeping Laboratory Tests 09/08/19 06:09: White Blood Count 4.8, Red Blood Count 3.21L, Hemoglobin 9.4L, Hematocrit 27.2L , Mean Corpuscular Volume 85, Mean Corpuscular Hemoglobin 29.3, Mean Corpuscular Hemoglobin Concent 34.6, Red Cell Distribution Width 12.7, Platelet Count 173, Mean Platelet Volume 6.3L, Neutrophils (%) (Auto) 76.0H, Lymphocytes (%) (Auto) 12.7L, Monocytes (%) (Auto) 9.8, Eosinophils (%) (Auto) 0.5, Basophils (%) (Auto) 1.0, Sodium Level 143, Potassium Level 3.2L, Chloride Level 107, Carbon Dioxide Level 23, Anion Gap 13, Blood Urea Nitrogen 26H, Creatinine 1.7H, Estimat Glomerular Filtration Rate 38.6, Glucose Level 71L, Calcium Level 9.4, Phosphorus Level 3.8, Magnesium Level 1.8, Total Bilirubin 0.4, Aspartate Amino Transf (AST/SGOT) 37, Alanine Aminotransferase (ALT/SGPT) 32, Alkaline Phosphatase 116, C-Reactive Protein, Quantitative 7.2H, Pro-B-Type Natriuretic Peptide 9950H, Total Protein 6.0L, Albumin 2.4L, Globulin 3.6, Albumin/Globulin Ratio 0.7L Current Medications Medications (Trade) Dose Ordered Sig/Kristine Route PRN Reason Start Time Stop Time Status Last Admin Dose Admin Amlodipine Besylate (Norvasc) 10 mg DAILY ORAL 09/03/19 09:00 09/28/19 08:59 09/08/19 08:50 Apixaban (Eliquis) 2.5 mg BID@0900,2100 ORAL 09/07/19 09:00 12/06/19 08:59 09/08/19 08:50 Finasteride (Proscar) 5 mg DAILY ORAL 08/29/19 09:00 11/05/19 15:44 09/08/19 08:50 Hydralazine HCl (Apresoline) 10 mg Q8H PRN IV For High Blood Pressure 08/28/19 18:15 11/26/19 18:14 09/07/19 23:21 Hydralazine HCl (Apresoline) 25 mg TID ORAL 09/06/19 09:00 12/05/19 08:59 09/08/19 13:22 Magnesium Hydroxide (Mom) 30 ml TIDPRN PRN ORAL Constipation 08/29/19 05:45 09/18/19 05:44 Nitroglycerin (Nitro-Bid) 1 inch Q6HR@0600,1200,1800 TOPIC 08/29/19 06:00 09/11/19 06:59 09/08/19 12:00 Pantoprazole (Protonix) 40 mg DAILY ORAL 08/29/19 09:00 09/25/19 08:59 09/08/19 08:50 Potassium Chloride (K-Dur) 20 meq TWICE A DAY ORAL 09/08/19 11:45 12/07/19 11:44 09/08/19 12:01 Tamsulosin HCl (Flomax) 0.4 mg BEDTIME ORAL 09/06/19 21:00 10/06/19 20:59 09/07/19 20:28 Valproic Acid (Depakene) 250 mg EVERY 12 HOURS NG 09/07/19 21:00 10/22/19 20:59 09/08/19 08:50 Kimani Hahn MD Sep 08, 2019 13:40
[2019-09-08 16:00] VITALS: BP 112/63
--- NOTE | 2019-09-08 19:33 | NUR ---
HAND-OFF: Report given to Joaquim Magallanes. Plan of care endorsed.
--- NOTE | 2019-09-08 19:34 | NUR ---
NURSE NOTES: received pt from LUIS FERNANDO [place]. Pt is awake and confused. Pt with HOB elevated. Pt with no c/o acute distress or pain. Iv site intact. Bed locked in lowest position, bed alarm on. Will continue with plan of care.
[2019-09-08 20:00] VITALS: BP 129/41
[2019-09-08] MEDS: Tamsulosin 0.4mg cap ORAL SCH (20:56)
[2019-09-09] VITALS: BP 133/66
[2019-09-09 04:00] VITALS: BP 139/68
--- NOTE | 2019-09-09 04:45 | Progress Note ---
DATE: 09/08/2019 SUBJECTIVE: The patient in bed, no acute distress noted. The patient was agitated earlier today. ASSESSMENT: Dementia with behavior disturbance. PLAN: Valproic acid 250 mg twice a day. Loco Luu M.D. DR: Ingrid JOB#: [id number] CC:
[2019-09-09] MEDS: Nitroglycerin 2% oint pkt TOPIC SCH ×2 (06:10→12:30)
--- NOTE | 2019-09-09 07:28 | NUR ---
HAND-OFF: Report given to LUIS FERNANDO Nunez. Pt is resting in bed with HOB elevated to high fowlers. iv site intact. Bed locked in lowest position bed alarm personal health coach light within reach. Endorsed plan of care.
[2019-09-09 07:58] VITALS: BP 119/81
--- NOTE | 2019-09-09 08:11 | NUR ---
NURSE NOTES: Pt in room, in low position, no sheet on, confused but acknowledges that he wants breakfast, Ox1 name only, iv intact, vitals WNL, pt on room air, no s/s of distress or sob noted, last CV swab taken on and waiting on results. No pain noted or verbalized. Hungarian speaker
--- NOTE | 2019-09-09 08:14 | General Progress Note ---
Assessment/Plan Problem List: (1) CHF (congestive heart failure) ICD Codes: I50.9 - Heart failure, unspecified SNOMED: 23915859 (2) Renal failure (ARF), acute on chronic ICD Codes: N17.9 - Acute kidney failure, unspecified; N18.9 - Chronic kidney disease, unspecified SNOMED: 056453345 (3) Encephalopathy due to metabolic factor or toxin SNOMED: 951314413 (4) Gross hematuria ICD Codes: R31.0 - Gross hematuria SNOMED: 913730742 (5) Falls frequently ICD Codes: R29.6 - Repeated falls SNOMED: 506796334 (6) Dehydration ICD Codes: E86.0 - Dehydration SNOMED: 00279335 (7) UTI (urinary tract infection) ICD Codes: N39.0 - Urinary tract infection, site not specified SNOMED: 40803062 (8) Anemia ICD Codes: D64.9 - Anemia, unspecified SNOMED: 169703419 Status: stable, progressing, not improved Assessment/Plan: o2 as needed. currently stable on room air. fall precautions. monitor cxr Encourage pos. monitor labs. IVF as needed Anxiolytics as needed. Continue blood pressure treatment. DVT and stress ulcer prophylaxis. monitor labs/lytes replace as needed. [facility] on [facility] for now. will need 2 neg covid tests. Subjective ROS Limited/Unobtainable: Yes Constitutional: Reports: malaise, weakness HEENT: Reports: no symptoms Cardiovascular: Reports: no symptoms Respiratory: Reports: no symptoms Gastrointestinal/Abdominal: Reports: poor appetite, poor fluid intake Genitourinary: Reports: no symptoms Neurologic/Psychiatric: Reports: anxiety, pre-existing deficit Endocrine: Reports: no symptoms Hematologic/Lymphatic: Reports: no symptoms Allergies: Coded Allergies: No Known Allergies (Unverified , 06/05/19) All Systems: reviewed and negative except above Subjective There have been no overnight events. Patient remains confused at baseline. per staff getting out of bed unassisted. completed treatment with hydroxychloroquine. o2 sats stable on room air. Poor p.o. intake. No fevers noted. no recent cxr. psych and cards noted. still covid pcr positive. Objective Last 24 Hour Vital Signs Date Time Temp Pulse Resp B/P (MAP) Pulse Ox O2 Delivery O2 Flow Rate FiO2 09/09/19 07:58 98.1 74 19 119/81 (94) 98 09/09/19 07:42 Room Air 09/09/19 06:10 135/62 09/09/19 04:00 97.4 72 18 139/68 (91) 97 09/09/19 00:00 97.8 73 18 133/66 (88) 98 09/08/19 21:00 Room Air 09/08/19 20:00 97.6 78 18 129/41 (70) 97 09/08/19 17:37 112/63 09/08/19 17:37 112/63 09/08/19 16:00 98.6 81 19 112/63 (79) 96 09/08/19 13:22 129/56 09/08/19 12:00 129/56 09/08/19 12:00 76 09/08/19 11:58 97.6 77 20 129/56 (80) 98 09/08/19 09:00 Room Air 09/08/19 08:50 130/78 09/08/19 08:50 102 130/78 Intake and Output 09/08/19 09/09/19 19:00 07:00 Output Total 400 ml Balance -400 ml Output Urine Total 400 ml # Voids 2 4 Height (Feet): 5 Height (Inches): 6.00 Weight (Pounds): 107 Objective General Appearance: WD/WN, alert, confused Neck: supple Cardiovascular: regular rhythm Respiratory/Chest: rhonchi - bilaterally Abdomen: normal bowel sounds, non tender, soft, no organomegaly, no mass Edema: no edema noted Arm (L), no edema noted Arm (R), no edema noted Leg (L), no edema noted Leg (R), no edema noted Pedal (L), no edema noted Pedal (R), no edema noted 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
[2019-09-09] MEDS: HydrALAZINE 25mg tab ORAL SCH ×3 (08:38→18:55)
[2019-09-09] MEDS: Eliquis 2.5mg tablet ORAL SCH ×2 (08:39→20:35)
[2019-09-09] MEDS: Valproic Acid 250mg/5ml Liquid NG SCH ×2 (08:40→20:35)
--- NOTE | 2019-09-09 09:15 | Progress Note ---
DATE: 09/09/2019 CARDIOLOGY PROGRESS NOTE SUBJECTIVE: The patient is confused, gets out of bed without assist and wonders. No respiratory distress on room air and saturating 96%. PHYSICAL EXAMINATION: VITAL SIGNS: Blood pressure 130/78 to 170/70, pulse 76 to 102, afebrile, respiratory rate 19 to 22. Monitor atrial fibrillation, rate is controlled. LUNGS: Few rhonchi. HEART: . ABDOMEN: Soft. EXTREMITIES: No edema. LABORATORY DATA: White count 4.8, hemoglobin 9.4. Sodium 143, potassium 3.2, BUN 26, creatinine 1.7, bicarb 23. Pro-natriuretic peptide has increased to 9900. Albumin 2.4. IMPRESSION: 1. Paroxysmal atrial fibrillation. 2. Valvular cardiomyopathy. 3. Pulmonary hypertension. 4. Acute on chronic diastolic congestive heart failure. 5. COVID-19 pneumonia status post treatment with hydroxychloroquine. 6. Hypertensive heart disease. PLAN: 1. COVID-19 swab. 2. Continue full anticoagulation for cardioembolic prophylaxis. 3. Optimize anti-failure regimen. 4. Replace potassium. 5. Followup electrolytes. Gamaliel Salas M.D. DR: Lexii JOB#: [id number] CC:
--- NOTE | 2019-09-09 10:37 | NUR ---
*-*INSURANCE*-* UPDATED CLINICALS AND REVIEWS HAVE BEEN FACXED TO: DEE ARAGON:GLENIS P: [phone] F: [phone] REF# [id number]
--- NOTE | 2019-09-09 10:43 | Urology Progress Note ---
Assessment/Plan Status: stable, progressing, not improved Assessment/Plan: 1. Gross hematuria hx, presumably secondary to Doshi trauma, resolved. 2. BPH. 3. Urinary retention. 4. Neurogenic bladder. 5. Pyuria?UTI/colonized. 6. Proteinuria. 7. Renal insufficiency, which appears to be acute on chronic. 8. Rule out urethral stricture. monitor clinically doshi out, voiding/incontinent on proscar flomax was held? resume s/p abx off anticoagulation, resume? restraints PRN cysto at some point monitor PVR and reinsert doshi PRN renal imaging? COVID (+) Subjective Allergies: Coded Allergies: No Known Allergies (Unverified , 06/05/19) Subjective all noted, confused, doshi out, incontinent, condom cath Objective Last 24 Hour Vital Signs Date Time Temp Pulse Resp B/P (MAP) Pulse Ox O2 Delivery O2 Flow Rate FiO2 09/09/19 08:39 74 119/81 09/09/19 08:38 119/81 09/09/19 07:58 98.1 74 19 119/81 (94) 98 09/09/19 07:42 Room Air 09/09/19 06:10 135/62 09/09/19 04:00 97.4 72 18 139/68 (91) 97 09/09/19 00:00 97.8 73 18 133/66 (88) 98 09/08/19 21:00 Room Air 09/08/19 20:00 97.6 78 18 129/41 (70) 97 09/08/19 17:37 112/63 09/08/19 17:37 112/63 09/08/19 16:00 98.6 81 19 112/63 (79) 96 09/08/19 13:22 129/56 09/08/19 12:00 129/56 09/08/19 12:00 76 09/08/19 11:58 97.6 77 20 129/56 (80) 98 Intake and Output 09/08/19 09/09/19 19:00 07:00 Output Total 400 ml Balance -400 ml Output Urine Total 400 ml # Voids 2 4 Microbiology Date/Time Source Procedure Growth Status 09/01/19 16:15 Nasopharynx Coronavirus COVID-19 PCR ([facility]) - Final Complete 08/28/19 12:31 Indwelling Cath Urine Culture - Final Pseudomonas Aeruginosa Raoultella Pl[place] Complete 08/06/19 04:45 Rectum VRE Culture - Final NO VANCOMYCIN RESISTANT ENTEROCOCCUS ... Complete Current Medications Medications (Trade) Dose Ordered Sig/Kristine Route PRN Reason Start Time Stop Time Status Last Admin Dose Admin Amlodipine Besylate (Norvasc) 10 mg DAILY ORAL 09/03/19 09:00 09/28/19 08:59 09/09/19 08:39 Apixaban (Eliquis) 2.5 mg BID@0900,2100 ORAL 09/07/19 09:00 12/06/19 08:59 09/09/19 08:39 Escitalopram Oxalate (Lexapro) 5 mg DAILY ORAL 09/09/19 09:00 10/09/19 08:59 09/09/19 08:38 Finasteride (Proscar) 5 mg DAILY ORAL 08/29/19 09:00 11/05/19 15:44 09/09/19 08:39 Hydralazine HCl (Apresoline) 25 mg TID ORAL 09/06/19 09:00 12/05/19 08:59 09/09/19 08:38 Magnesium Hydroxide (Mom) 30 ml TIDPRN PRN ORAL Constipation 08/29/19 05:45 09/18/19 05:44 Nitroglycerin (Nitro-Bid) 1 inch Q6HR@0600,1200,1800 TOPIC 08/29/19 06:00 09/11/19 06:59 09/09/19 06:10 Pantoprazole (Protonix) 40 mg DAILY ORAL 08/29/19 09:00 09/25/19 08:59 09/09/19 08:38 Potassium Chloride (K-Dur) 20 meq TWICE A DAY ORAL 09/08/19 11:45 12/07/19 11:44 09/09/19 08:40 Tamsulosin HCl (Flomax) 0.4 mg BEDTIME ORAL 09/06/19 21:00 10/06/19 20:59 09/08/19 20:56 Trazodone HCl (Desyrel) 25 mg BEDTIME ORAL 09/09/19 21:00 10/09/19 20:59 Valproic Acid (Depakene) 250 mg EVERY 12 HOURS NG 09/07/19 21:00 10/22/19 20:59 09/09/19 08:40 Height (Feet): 5 Height (Inches): 6.00 Weight (Pounds): 107 Objective exam stable abdomen soft urine grossly yellow Mumtazshodalys,Miki Perry MD Sep 09, 2019 10:43
--- NOTE | 2019-09-09 10:46 | Infectious Diseases Prog Note ---
Assessment/Plan Assessment/Plan antibiotics : none A 1. COVID 19 pneumonia test + on 4.14.20, 4.16.20 2. Pseudomonas and Raoultella urinary tract infection s/p rx 3. Renal failure. 4. hypertension 5. cardiomyopathy P 1. observe off antibiotics 2. will follow up cultures 3. Continue isolation Subjective ROS Limited/Unobtainable: Yes Allergies: Coded Allergies: No Known Allergies (Unverified , 06/05/19) Objective Vital Signs Last 24 Hour Vital Signs Date Time Temp Pulse Resp B/P (MAP) Pulse Ox O2 Delivery O2 Flow Rate FiO2 09/09/19 08:39 74 119/81 09/09/19 08:38 119/81 09/09/19 07:58 98.1 74 19 119/81 (94) 98 09/09/19 07:42 Room Air 09/09/19 06:10 135/62 09/09/19 04:00 97.4 72 18 139/68 (91) 97 09/09/19 00:00 97.8 73 18 133/66 (88) 98 09/08/19 21:00 Room Air 09/08/19 20:00 97.6 78 18 129/41 (70) 97 09/08/19 17:37 112/63 09/08/19 17:37 112/63 09/08/19 16:00 98.6 81 19 112/63 (79) 96 09/08/19 13:22 129/56 09/08/19 12:00 129/56 09/08/19 12:00 76 09/08/19 11:58 97.6 77 20 129/56 (80) 98 Height (Feet): 5 Height (Inches): 6.00 Weight (Pounds): 107 Current Medications Medications (Trade) Dose Ordered Sig/Kristine Route PRN Reason Start Time Stop Time Status Last Admin Dose Admin Amlodipine Besylate (Norvasc) 10 mg DAILY ORAL 09/03/19 09:00 09/28/19 08:59 09/09/19 08:39 Apixaban (Eliquis) 2.5 mg BID@0900,2100 ORAL 09/07/19 09:00 12/06/19 08:59 09/09/19 08:39 Escitalopram Oxalate (Lexapro) 5 mg DAILY ORAL 09/09/19 09:00 10/09/19 08:59 09/09/19 08:38 Finasteride (Proscar) 5 mg DAILY ORAL 08/29/19 09:00 11/05/19 15:44 09/09/19 08:39 Hydralazine HCl (Apresoline) 25 mg TID ORAL 09/06/19 09:00 12/05/19 08:59 09/09/19 08:38 Magnesium Hydroxide (Mom) 30 ml TIDPRN PRN ORAL Constipation 08/29/19 05:45 09/18/19 05:44 Nitroglycerin (Nitro-Bid) 1 inch Q6HR@0600,1200,1800 TOPIC 08/29/19 06:00 09/11/19 06:59 09/09/19 06:10 Pantoprazole (Protonix) 40 mg DAILY ORAL 08/29/19 09:00 09/25/19 08:59 09/09/19 08:38 Potassium Chloride (K-Dur) 20 meq TWICE A DAY ORAL 09/08/19 11:45 12/07/19 11:44 09/09/19 08:40 Tamsulosin HCl (Flomax) 0.4 mg BEDTIME ORAL 09/06/19 21:00 10/06/19 20:59 09/08/19 20:56 Trazodone HCl (Desyrel) 25 mg BEDTIME ORAL 09/09/19 21:00 10/09/19 20:59 Valproic Acid (Depakene) 250 mg EVERY 12 HOURS NG 09/07/19 21:00 10/22/19 20:59 09/09/19 08:40 Gonzalez Stephens MD Sep 09, 2019 10:46
--- NOTE | 2019-09-09 11:07 | Pulmonology Progress Note ---
Assessment/Plan Assessment/Plan IMPRESSION: 1. Pleural effusions, small bilateral. 2. Atelectasis. 3. Pulmonary edema, questionable. 4. Hypertension. 5. Hyperlipidemia. 6. positive COVID 19 7. 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 No new recommendations Kimani Hahn M.D. Subjective ROS Limited/Unobtainable: Yes Interval Events: None new reported Constitutional: Denies: fever HEENT: Repors: no symptoms Respiratory: Reports: no symptoms Cardiovascular: Reports: no symptoms Gastrointestinal/Abdominal: Denies: nausea, vomiting, diarrhea Genitourinary: Reports: no symptoms Neurologic: Reports: no symptoms Musculoskeletal: Denies: pain Allergies: Coded Allergies: No Known Allergies (Unverified , 06/05/19) All Systems: reviewed and negative except above Objective Last 24 Hour Vital Signs Date Time Temp Pulse Resp B/P (MAP) Pulse Ox O2 Delivery O2 Flow Rate FiO2 09/09/19 08:39 74 119/81 09/09/19 08:38 119/81 09/09/19 07:58 98.1 74 19 119/81 (94) 98 09/09/19 07:42 Room Air 09/09/19 06:10 135/62 09/09/19 04:00 97.4 72 18 139/68 (91) 97 09/09/19 00:00 97.8 73 18 133/66 (88) 98 09/08/19 21:00 Room Air 09/08/19 20:00 97.6 78 18 129/41 (70) 97 09/08/19 17:37 112/63 09/08/19 17:37 112/63 09/08/19 16:00 98.6 81 19 112/63 (79) 96 09/08/19 13:22 129/56 09/08/19 12:00 129/56 09/08/19 12:00 76 09/08/19 11:58 97.6 77 20 129/56 (80) 98 Intake and Output 09/08/19 09/09/19 19:00 07:00 Output Total 400 ml Balance -400 ml Output Urine Total 400 ml # Voids 2 4 General Appearance: no acute distress HEENT: mucous membranes moist Respiratory/Chest: chest wall non-tender, lungs clear Cardiovascular: normal peripheral pulses Abdomen: soft, non tender Extremities: no edema Neurologic/Psychiatric: other - sleeping Current Medications Medications (Trade) Dose Ordered Sig/Kristine Route PRN Reason Start Time Stop Time Status Last Admin Dose Admin Amlodipine Besylate (Norvasc) 10 mg DAILY ORAL 09/03/19 09:00 09/28/19 08:59 09/09/19 08:39 Apixaban (Eliquis) 2.5 mg BID@0900,2100 ORAL 09/07/19 09:00 12/06/19 08:59 09/09/19 08:39 Escitalopram Oxalate (Lexapro) 5 mg DAILY ORAL 09/09/19 09:00 10/09/19 08:59 09/09/19 08:38 Finasteride (Proscar) 5 mg DAILY ORAL 08/29/19 09:00 11/05/19 15:44 09/09/19 08:39 Hydralazine HCl (Apresoline) 25 mg TID ORAL 09/06/19 09:00 12/05/19 08:59 09/09/19 08:38 Magnesium Hydroxide (Mom) 30 ml TIDPRN PRN ORAL Constipation 08/29/19 05:45 09/18/19 05:44 Nitroglycerin (Nitro-Bid) 1 inch Q6HR@0600,1200,1800 TOPIC 08/29/19 06:00 09/11/19 06:59 09/09/19 06:10 Pantoprazole (Protonix) 40 mg DAILY ORAL 08/29/19 09:00 09/25/19 08:59 09/09/19 08:38 Potassium Chloride (K-Dur) 20 meq TWICE A DAY ORAL 09/08/19 11:45 12/07/19 11:44 09/09/19 08:40 Tamsulosin HCl (Flomax) 0.4 mg BEDTIME ORAL 09/06/19 21:00 10/06/19 20:59 09/08/19 20:56 Trazodone HCl (Desyrel) 25 mg BEDTIME ORAL 09/09/19 21:00 10/09/19 20:59 Valproic Acid (Depakene) 250 mg EVERY 12 HOURS NG 09/07/19 21:00 10/22/19 20:59 09/09/19 08:40 Kimani Hahn MD Sep 09, 2019 11:07
--- NOTE | 2019-09-09 11:50 | Nephrology Progress Note ---
Assessment/Plan Problem List: (1) Renal failure (ARF), acute on chronic Assessment: Serum creatinine stabilizing (2) Falls frequently (3) UTI (urinary tract infection) Assessment: and hematuria (4) Anemia (5) Dehydration (6) Encephalopathy due to metabolic factor or toxin Assessment Frequent falls Acute renal failure with underlying dehydration Anemia, underlying etiology unclear UTI (urinary tract infection) Toxic metabolic encephalopathy Plan Patient now COVID-19 positive Start D5W for hypernatremia as needed P.o. intake variable Oral potassium supplement as needed Discharge planning in process previously: Increase Flomax to twice daily Correct electrolytes as needed Transfusion as needed 2D echocardiogram ejection fraction 60% Kidney ultrasound pending results Monitor renal parameters Avoid nephrotoxics Antibiotics for UTI Continue per consultants Subjective ROS Limited/Unobtainable: No Constitutional: Reports: malaise, weakness Objective Objective Last 24 Hour Vital Signs Date Time Temp Pulse Resp B/P (MAP) Pulse Ox O2 Delivery O2 Flow Rate FiO2 09/09/19 08:39 74 119/81 09/09/19 08:38 119/81 09/09/19 07:58 98.1 74 19 119/81 (94) 98 09/09/19 07:42 Room Air 09/09/19 06:10 135/62 09/09/19 04:00 97.4 72 18 139/68 (91) 97 09/09/19 00:00 97.8 73 18 133/66 (88) 98 09/08/19 21:00 Room Air 09/08/19 20:00 97.6 78 18 129/41 (70) 97 09/08/19 17:37 112/63 09/08/19 17:37 112/63 09/08/19 16:00 98.6 81 19 112/63 (79) 96 09/08/19 13:22 129/56 09/08/19 12:00 129/56 09/08/19 12:00 76 09/08/19 11:58 97.6 77 20 129/56 (80) 98 Intake and Output 09/08/19 09/09/19 19:00 07:00 Output Total 400 ml Balance -400 ml Output Urine Total 400 ml # Voids 2 4 Height (Feet): 5 Height (Inches): 6.00 Weight (Pounds): 107 General Appearance: no apparent distress Respiratory/Chest: decreased breath sounds Abdomen: soft Objective No change Fouladian,Juan MD Sep 09, 2019 11:50
--- NOTE | 2019-09-09 11:56 | NUR ---
CASE MANAGEMENT:REVIEW 09/09/19 SI: COVID 19 PNEUMONIA 98.1 74 19 119/81 98% ON RA H/H-9.4/27.2 K-3.2 BUN+26 CR+1.7 BNP+9950 IS: LEXAPRO PO QD K-DUR PO BID DEPAKENE PO Q12 ELIQUIS PO BID FLOMAX PO QHS HYDRALAZINE PO TID NORVASC PO QD PROSCAR PO QD PROTONIX PO QD NITRO BID 1" Q6HRS : TELEMETRY STATUS DCP: [facility] PLAN: DOWNGRADE TO MED/SURG F/U ON PENDING COVID 19 RESULTS....RE-TESTED 09/07/19
[2019-09-09 12:00] VITALS: BP 120/67
--- NOTE | 2019-09-09 12:05 | NUR ---
PT notes: still with other discipline; will follow up later if time permits.
--- NOTE | 2019-09-09 12:51 | NUR ---
NURSE NOTES: RECEIVED REPORT AND PATIENT FROM LUIS FERNANDO SALDIVAR IN TELEMETRY. PATIENT A&OX1, CONFUSED. ON ROOM AIR, NO SIGNS OF DISTRESS OR LABORED BREATHING. IV INTACT, PATENT, AND SALINE LOCKED. BED IN LOWEST POSITION WITH HOB ELEVATED. BED ALARM ON. BELONGINGS LIST SIGNED. WILL CONTINUE WITH PLAN OF CARE.
[2019-09-09] MEDS ORDERED: Milk of Magnesia 30ml Ud ORAL PRN (13:00)
--- NOTE | 2019-09-09 13:01 | NUR ---
HAND-OFF: Report given to Rufina GOULD, endorsed pt behavior and fall risk, bed alarm on when transfer was completed. Prior clothing had to be thrown away due to urine contamination.
--- NOTE | 2019-09-09 14:41 | Consultation ---
History of Present Illness General Date patient seen: Sep 09, 2019 Reason for Hospitalization: Multiple Trauma/Fall Present Illness HPI 83M with multiple medical comorbidities presented for above prior and has been admitted for some time now under medical care and management. doing well initially and came in with resolving pressure injuries but recently noted to develop DTI. surgery called to evaluate and assist with care. patient seen, chart reviewed, patient examined. Allergies: Coded Allergies: No Known Allergies (Unverified , 06/05/19) COVID-19 Screening Contact w/high risk pt: No Recent Travel to affected area: No Experienced COVID-19 symptoms?: No Medication History Scheduled Acetaminophen* (Acetaminophen Extra Strength*), 500 MG ORAL Q6H, (Reported) Aspirin* (Aspir 81*), 81 MG ORAL DAILY, (Reported) Bupropion Xl* (Bupropion Xl*), 150 MG ORAL Q24H, (Reported) Diclofenac Sodium (Voltaren), 100 GM TP BID, (Reported) Docusate Sodium (Stool Softener), 250 MG PO DAILY, (Reported) Escitalopram Oxalate (Escitalopram Oxalate*), 5 MG ORAL DAILY, (Reported) Famotidine* (Pepcid 20mg tablet*), 20 MG ORAL TWICE A DAY, (Reported) Fluticasone Propionate (Fluticasone Propionate), 1 SPRAY NASAL DAILY, (Reported) Fluticasone/Salmeterol (Advair 500-50 Diskus), 1 PUFF INH EVERY 12 HOURS, ( Reported) Furosemide* (Lasix*), 20 MG ORAL DAILY, (Reported) Hydralazine Hcl* (Hydralazine Hcl*), 50 MG ORAL EVERY 8 HOURS, (Reported) Hydralazine Hcl* (Hydralazine Hcl*), 150 MG ORAL EVERY 8 HOURS, (Reported) Lidocaine Patch* (Lidoderm Patch*), 1 PATCH TOPIC DAILY Lisinopril (Lisinopril*), 20 MG ORAL DAILY, (Reported) Multivitamin With Minerals (Multivitamins With Minerals*), 1 TAB ORAL DAILY, ( Reported) Nifedipine Er* (Nifedipine Er*), 90 MG ORAL DAILY, (Reported) Sennosides (Senna), 8.6 MG PO BEDTIME, (Reported) Sertraline Hcl* (Sertraline Hcl*), 25 MG ORAL BEDTIME, (Reported) Simvastatin (Zocor), 40 MG ORAL BEDTIME, (Reported) Trazodone Hcl* (Desyrel*), 50 MG ORAL BEDTIME, (Reported) Scheduled PRN Acetaminophen With Codeine (T#3) (Tylenol #3 Tab*), 1 TAB ORAL Q8H PRN for For Pain Albuterol Sulfate* (Albuterol Sulfate Hhn*), 3 ML INH Q4H PRN for Shortness of Breath, (Reported) Ondansetron* (Zofran*), 4 MG ORAL Q6H PRN for Nausea & Vomiting, (Reported) Miscellaneous Medications Apixaban (Eliquis), 2.5 MG PO, (Reported) Calcium Carbonate/Vitamin D3 (Calcium 600 + Vit D 200 Tablet), 1 EACH PO, ( Reported) Cyanocobalamin (Vitamin B-12) (Vitamin B-12), 500 MCG SL, (Reported) Methyl Salicylate/Menthol (Salonpas Patch), 1 EACH TP, (Reported) Mirabegron (Myrbetriq), 25 MG PO, (Reported) Vit A/Vitamin D3/E/Aloe V/Znox (Periguard Ointment), 100 GM TP, (Reported) Vit D3/Folic Acid/B2/B6/B12 (Folgard Tablet), 1,000 UNITS PO, (Reported) Patient History Limited by: age, medical condition History Provided By: Medical Record Healthcare decision maker Resuscitation status Do Not Resuscitate Advanced Directive on File Past Medical/Surgical History Past Medical/Surgical History: (1) Dehydration (2) Anemia (3) UTI (urinary tract infection) (4) Falls frequently (5) Renal failure (ARF), acute on chronic (6) Encephalopathy due to metabolic factor or toxin (7) CHF (congestive heart failure) (8) Gross hematuria (9) Malnutrition (10) Severe protein-calorie malnutrition (11) Deep tissue injury Review of Systems Review of Symptoms General ROS: no weight loss or fever Psychological ROS: no depression or mood changes, no memory loss Ophthalmic ROS: no visual changes or eye irritation ENT ROS: no nasal congestion, hearing loss, dizziness Allergy and Immunology ROS: no allergic symptoms or urticaria Hematological and Lymphatic ROS: no swollen glands, unusual bleeding or bruising Endocrine ROS: no polyuria, polydipsia, weight changes, temperature intolerance Respiratory ROS: no cough, shortness of breath, or wheezing Cardiovascular ROS: no chest pain or dyspnea on exertion Gastrointestinal ROS: denies abdominal pain, bright red blood in stool. Musculoskeletal ROS: no myalgias or arthralgias Neurological ROS: no TIA or stroke symptoms Dermatological ROS: no new or changing skin lesions, rashes or pruritis Physical Exam Physical Exam General appearance: alert, cooperative, no distress, appears stated age Head: Normocephalic, without obvious abnormality, atraumatic Eyes: conjunctivae/corneas clear. PERRL, EOM's intact. Fundi benign Throat: Lips, mucosa, and tongue normal. Teeth and gums normal Neck: supple, symmetrical, trachea midline, no adenopathy, thyroid: not enlarged, symmetric, no tenderness/mass/nodules, no carotid bruit and no JVD Lungs: clear to auscultation bilaterally Heart: regular rate and rhythm, S1, S2 normal, no murmur, click, rub or gallop Abdomen: soft, non-tender. Bowel sounds normal. No masses, no organomegaly Extremities: extremities normal, atraumatic, no cyanosis or edema Pulses: 2+ and symmetric Skin: Skin color, texture, turgor normal. No rashes or lesions Neurologic: Grossly normal Last 24 Hour Vital Signs Date Time Temp Pulse Resp B/P (MAP) Pulse Ox O2 Delivery O2 Flow Rate FiO2 09/09/19 12:30 120/67 09/09/19 12:00 96.7 81 18 120/67 (84) 97 09/09/19 08:39 74 119/81 09/09/19 08:38 119/81 09/09/19 07:58 98.1 74 19 119/81 (94) 98 09/09/19 07:42 Room Air 09/09/19 06:10 135/62 09/09/19 04:00 97.4 72 18 139/68 (91) 97 09/09/19 00:00 97.8 73 18 133/66 (88) 98 09/08/19 21:00 Room Air 09/08/19 20:00 97.6 78 18 129/41 (70) 97 09/08/19 17:37 112/63 09/08/19 17:37 112/63 09/08/19 16:00 98.6 81 19 112/63 (79) 96 Intake and Output 09/08/19 09/09/19 19:00 07:00 Output Total 400 ml Balance -400 ml Output Urine Total 400 ml # Voids 2 4 Height (Feet): 5 Height (Inches): 6.00 Weight (Pounds): 107 Medications Current Medications Medications (Trade) Dose Ordered Sig/Kristine Route PRN Reason Start Time Stop Time Status Last Admin Dose Admin Amlodipine Besylate (Norvasc) 10 mg DAILY ORAL 09/10/19 09:00 09/28/19 08:59 Apixaban (Eliquis) 2.5 mg BID@0900,2100 ORAL 09/09/19 21:00 12/06/19 08:59 Escitalopram Oxalate (Lexapro) 5 mg DAILY ORAL 09/10/19 09:00 10/09/19 08:59 Finasteride (Proscar) 5 mg DAILY ORAL 09/10/19 09:00 11/05/19 15:44 Hydralazine HCl (Apresoline) 25 mg TID ORAL 09/09/19 13:00 12/05/19 08:59 Magnesium Hydroxide (Mom) 30 ml TIDPRN PRN ORAL Constipation 09/09/19 13:00 10/09/19 12:59 Nitroglycerin (Nitro-Bid) 1 inch Q6HR@0600,1200,1800 TOPIC 09/09/19 18:00 09/11/19 06:59 Pantoprazole (Protonix) 40 mg DAILY ORAL 09/10/19 09:00 09/25/19 08:59 Potassium Chloride (K-Dur) 20 meq TWICE A DAY ORAL 09/09/19 18:00 12/07/19 11:44 Tamsulosin HCl (Flomax) 0.4 mg BEDTIME ORAL 09/09/19 21:00 10/06/19 20:59 Trazodone HCl (Desyrel) 25 mg BEDTIME ORAL 09/09/19 21:00 10/09/19 20:59 Valproic Acid (Depakene) 250 mg EVERY 12 HOURS NG 09/09/19 21:00 10/22/19 20:59 Assessment/Plan Problem List: (1) Dehydration ICD Codes: E86.0 - Dehydration SNOMED: 26890732 (2) Anemia ICD Codes: D64.9 - Anemia, unspecified SNOMED: 188656949 (3) UTI (urinary tract infection) ICD Codes: N39.0 - Urinary tract infection, site not specified SNOMED: 60241618 (4) Falls frequently ICD Codes: R29.6 - Repeated falls SNOMED: 745565884 (5) Renal failure (ARF), acute on chronic ICD Codes: N17.9 - Acute kidney failure, unspecified; N18.9 - Chronic kidney disease, unspecified SNOMED: 164408232 (6) Encephalopathy due to metabolic factor or toxin SNOMED: 982936158 (7) CHF (congestive heart failure) ICD Codes: I50.9 - Heart failure, unspecified SNOMED: 29845000 (8) Gross hematuria ICD Codes: R31.0 - Gross hematuria SNOMED: 950782496 (9) Deep tissue injury Assessment & Plan: Pt presented on admission with multiple pressure injuries which were resolving. 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 Base of injury is purple with maroon borders . Surrounding non-blanching erythema to R and Gluteal cheeks. Scrotum is erythematous. R and L heels are boggy but each area blanchable. Tx.Plan: Apply Moisture Barrier Paste to Sacrum. Cover with Optifoam drsg. Change every 3 days and prn. Apply Moisture Barrier Paste to bilat groin and scrotum with each incontinence care. Apply Cavilon Skin Barrier to both heels. Cover each heel with Optifoam drsg. Change every 7 days and prn. Reposition at least every 2hours or as tolerated. Off-load heels with pillow. APM/MEI Mattress overlay. ICD Codes: T14.8XXA - Other injury of unspecified body region, initial encounter SNOMED: 889680150 (10) Malnutrition Assessment & Plan: DAILY ESTIMATED NEEDS: Needs based on Wound, 66.8kg 28-33 kcals/kg 5040-4292 total kcals 1.25-1.5 g protein/kg 84-100 g total protein 25-30 mL/kg 6173-4597 total fluid mLs NUTRITION DIAGNOSIS: Swallowing difficulty r/t dysphagia and ams as evidenced by s/p ANIMAL KEEPER eval, poor cognition, pt on liquify puree texture diet w/ HTL, now with improved intake. CURRENT DIET: Liquify puree HTL Regular PO DIET RECOMMENDATIONS: Maintain Regular diet, texture per ANIMAL KEEPER ADDITIONAL RECOMMENDATIONS: 1) Ensure Enlive TID w/ meals (350kcal/20g prot per bottle) 2) Maintain calibrated bed scale wts EMR wt: 160# vs Bed scale wt: 147#-> bed now reads 109.8# 3) Consider D5 IVF (vs 1/2 NS running currently)- Na elevated to prevent hypoglycemia given poor/variable PO 4) Wound care: MVI 1 tab QD + Vit C 250mg QD+ Jacob BID 5) Monitor lytes, replete as needed ICD Codes: E46 - Unspecified protein-calorie malnutrition SNOMED: 61892549 (11) Severe protein-calorie malnutrition ICD Codes: E43 - Unspecified severe protein-calorie malnutrition SNOMED: 256984173, 048964917, [id number] Sai Aaron Sep 09, 2019 14:41
[2019-09-09 16:00] VITALS: BP 153/84
[2019-09-09] MEDS ORDERED: Nitroglycerin 2% oint pkt TOPIC SCH (18:00)
--- NOTE | 2019-09-09 19:20 | NUR ---
NURSE NOTES: Received report from LUIS FERNANDO Saldana. AAO x1, confused, high fall risk, restless, moving a lot, on room air. IV intact. Isolation maintained. No acute distress noted. Bed locked, lowest position, alarm on, side rails up, call light within reach.
--- NOTE | 2019-09-09 19:58 | NUR ---
HAND-OFF: Report given to LUIS FERNANDO Beavers.
[2019-09-09 20:00] VITALS: BP 146/59
[2019-09-09] MEDS: Tamsulosin 0.4mg cap ORAL SCH (20:35)
[2019-09-09] MEDS: TraZODone HCl 25 mg tablet ORAL SCH (20:35)
[2019-09-09] MEDS ORDERED: TraZODone HCl 25 mg tablet ORAL SCH (21:00)
--- NOTE | 2019-09-09 22:34 | NUR ---
NURSE NOTES: Pt has fever 100F noted. Pt restless, high fall risk, and moving a lot. Received order from Dr. Echavarria Tylenol 650 mg po prn q4hr, ativan 1mg iv q4hr prn anxiety
[2019-09-09] MEDS: Acetaminophen 650mg/20.3ml ORAL PRN (22:42)
[2019-09-09] MEDS: LORazepam Inj 2mg/ml 1ml IV PRN (22:42)
[2019-09-10] VITALS: BP 141/58
[2019-09-10 04:00] VITALS: BP 145/67
[2019-09-10 04:39] LABS: BASOPHILS % (AUTO) 1.3 % (0.0-2.0); HEMATOCRIT 25.8 % (42.0-52.0); HEMOGLOBIN 8.7 G/DL (14.2-18.0); LYMPHOCYTES % (AUTO) 18.3 % (20.0-45.0); MEAN CORPUSCULAR VOLUME 85 FL (80-99); MONOCYTES % (AUTO) 11.2 % (1.0-10.0); NEUTROPHILS % (AUTO) 67.1 % (45.0-75.0); PLATELET COUNT 187 K/UL (150-450); RED BLOOD COUNT 3.03 M/UL (4.70-6.10); RED CELL DISTRIBUTION WIDTH 12.9 % (11.6-14.8); WHITE BLOOD COUNT 3.8 K/UL (4.8-10.8)
--- NOTE | 2019-09-10 04:59 | Progress Note ---
DATE: 09/09/2019 CARDIOLOGY PROGRESS NOTE SUBJECTIVE: No new events, baseline mentation, adequate oxygenation on room air. PHYSICAL EXAMINATION: VITAL SIGNS: Blood pressure 119/81, pulse 74, respiratory rate 19. LUNGS: Good breath sounds. No wheezing. HEART: Irregularly irregular rhythm. Normal S1, S2. A 1/6 systolic apical murmur. ABDOMEN: Soft. EXTREMITIES: No edema. IMPRESSION: 1. COVID-19 pneumonia. 2. Hypokalemia. 3. Paroxysmal atrial fibrillation . 4. Conduction system disease with junctional rhythm. 5. Valvular cardiomyopathy with mitral valve replacement. 6. Severe pulmonary hypertension with elevated natriuretic peptide essay. 7. Moderate to severe protein-calorie malnutrition. PLAN: 1. Isolation precautions. 2. Full anticoagulation. 3. Recheck laboratory studies. 4. Maintenance diuresis. 5. Titrate anti-failure and antihypertensive regimen. Gamaliel Salas M.D. DR: Lexii JOB#: [id number] CC:
[2019-09-10 05:11] LABS: ANION GAP 9 mmol/L (5-15); BLOOD UREA NITROGEN 37 mg/dL (7-18); CALCIUM 9.3 MG/DL (8.5-10.1); CARBON DIOXIDE 27 MMOL/L (21-32); CHLORIDE 112 MMOL/L (98-107); CREATININE 1.9 MG/DL (0.55-1.30); POTASSIUM 3.5 MMOL/L (3.5-5.1); SODIUM 148 MMOL/L (136-145)
--- NOTE | 2019-09-10 07:29 | NUR ---
HAND-OFF: Report given to LUIS FERNANDO Saldana.
--- NOTE | 2019-09-10 07:30 | NUR ---
NURSE NOTES: Received report from LUIS FERNANDO Beavers. Patient in bed. On room air, no signs of distress or labored breathing. IV intact, patent, and saline locked. Bed in lowest position with bed alarm on. Will continue with plan of care.
[2019-09-10 08:00] VITALS: BP 158/68
[2019-09-10 09:23] LABS: ALANINE AMINOTRANSFERASE 51 U/L (12-78); ALBUMIN 2.4 G/DL (3.4-5.0); ALKALINE PHOSPHATASE 111 U/L (46-116); ASPARTATE AMINO TRANSFERASE 71 U/L (15-37); BILIRUBIN,DIRECT 0.1 MG/DL (0.0-0.3); BILIRUBIN,TOTAL 0.3 MG/DL (0.2-1.0); PHOSPHORUS 2.8 MG/DL (2.5-4.9)
--- NOTE | 2019-09-10 09:38 | Nephrology Progress Note ---
Assessment/Plan Problem List: (1) Renal failure (ARF), acute on chronic Assessment: Serum creatinine stabilizing (2) Falls frequently (3) UTI (urinary tract infection) Assessment: and hematuria (4) Anemia (5) Dehydration (6) Encephalopathy due to metabolic factor or toxin Assessment Frequent falls Acute renal failure with underlying dehydration Anemia, underlying etiology unclear UTI (urinary tract infection) Toxic metabolic encephalopathy Plan Serum creatinine overall stable vacillating between 1.7- to 2 Patient now COVID-19 positive Start D5W for hypernatremia as needed P.o. intake variable Oral potassium supplement as needed Discharge planning in process previously: Increase Flomax to twice daily Correct electrolytes as needed Transfusion as needed 2D echocardiogram ejection fraction 60% Kidney ultrasound pending results Monitor renal parameters Avoid nephrotoxics Antibiotics for UTI Continue per consultants Subjective ROS Limited/Unobtainable: No Constitutional: Reports: malaise, weakness Objective Objective Last 24 Hour Vital Signs Date Time Temp Pulse Resp B/P (MAP) Pulse Ox O2 Delivery O2 Flow Rate FiO2 09/10/19 04:00 97.3 67 20 145/67 (93) 94 09/10/19 00:00 98.1 76 20 141/58 (85) 93 09/09/19 23:12 98.1 09/09/19 21:00 Room Air 09/09/19 20:00 100.0 83 22 146/59 (88) 94 09/09/19 18:55 153/84 09/09/19 18:55 153/84 09/09/19 16:00 96.3 75 20 153/84 (107) 96 09/09/19 12:30 120/67 09/09/19 12:00 96.7 81 18 120/67 (84) 97 Intake and Output 09/09/19 09/10/19 19:00 07:00 # Voids 3 3 # Bowel Movements 1 Laboratory Tests 09/10/19 03:40: White Blood Count 3.8L, Red Blood Count 3.03L, Hemoglobin 8.7L, Hematocrit 25.8L , Mean Corpuscular Volume 85, Mean Corpuscular Hemoglobin 28.9, Mean Corpuscular Hemoglobin Concent 33.9, Red Cell Distribution Width 12.9, Platelet Count 187, Mean Platelet Volume 6.4L, Neutrophils (%) (Auto) 67.1, Lymphocytes ( %) (Auto) 18.3L, Monocytes (%) (Auto) 11.2H, Eosinophils (%) (Auto) 2.0, Basophils (%) (Auto) 1.3, Sodium Level 148H, Potassium Level 3.5, Chloride Level 112H, Carbon Dioxide Level 27, Anion Gap 9, Blood Urea Nitrogen 37H, Creatinine 1.9H, Estimat Glomerular Filtration Rate 33.9, Glucose Level 96, Calcium Level 9.3, Phosphorus Level 2.8, Magnesium Level 1.9, Total Bilirubin 0.3, Direct Bilirubin 0.1, Aspartate Amino Transf (AST/SGOT) 71H, Alanine Aminotransferase (ALT/SGPT) 51, Alkaline Phosphatase 111, Pro-B-Type Natriuretic Peptide 9075H, Total Protein 5.8L, Albumin 2.4L Height (Feet): 5 Height (Inches): 6.00 Weight (Pounds): 107 General Appearance: no apparent distress, lethargic Cardiovascular: normal rate Objective No change Juan Jade MD Sep 10, 2019 09:37
[2019-09-10] MEDS: Eliquis 2.5mg tablet ORAL SCH ×2 (10:37→22:03)
[2019-09-10] MEDS: Valproic Acid 250mg/5ml Liquid NG SCH ×2 (10:38→22:03)
[2019-09-10] MEDS: Ascorbic Acid 500mg tab ORAL SCH (10:39)
[2019-09-10] MEDS: Imdur 30mg tab ORAL SCH (10:39)
[2019-09-10] MEDS: HydrALAZINE 25mg tab ORAL SCH ×3 (10:40→17:39)
--- NOTE | 2019-09-10 11:34 | Urology Progress Note ---
Assessment/Plan Status: stable, progressing, not improved Assessment/Plan: 1. Gross hematuria hx, presumably secondary to Doshi trauma, resolved. 2. BPH. 3. Urinary retention. 4. Neurogenic bladder. 5. Pyuria?UTI/colonized. 6. Proteinuria. 7. Renal insufficiency, which appears to be acute on chronic. 8. Rule out urethral stricture. monitor clinically doshi out, voiding/incontinent on proscar and flomax s/p abx restraints PRN cysto at some point monitor PVR and reinsert doshi PRN renal imaging? COVID (+) Eliquis resumed monitor for bleeding Subjective Allergies: Coded Allergies: No Known Allergies (Unverified , 06/05/19) Subjective all noted, confused, doshi out, incontinent, condom cath Objective Last 24 Hour Vital Signs Date Time Temp Pulse Resp B/P (MAP) Pulse Ox O2 Delivery O2 Flow Rate FiO2 09/10/19 10:40 158/68 09/10/19 10:39 158/68 09/10/19 10:39 65 158/68 09/10/19 08:00 97.7 65 20 158/68 (98) 99 09/10/19 04:00 97.3 67 20 145/67 (93) 94 09/10/19 00:00 98.1 76 20 141/58 (85) 93 09/09/19 23:12 98.1 09/09/19 21:00 Room Air 09/09/19 20:00 100.0 83 22 146/59 (88) 94 09/09/19 18:55 153/84 09/09/19 18:55 153/84 09/09/19 16:00 96.3 75 20 153/84 (107) 96 09/09/19 12:30 120/67 09/09/19 12:00 96.7 81 18 120/67 (84) 97 Intake and Output 09/09/19 09/10/19 19:00 07:00 # Voids 3 3 # Bowel Movements 1 Microbiology Date/Time Source Procedure Growth Status 09/07/19 19:00 Nasopharynx Coronavirus COVID-19 PCR (JOSÉ LUIS) - Final Complete 08/28/19 12:31 Indwelling Cath Urine Culture - Final Pseudomonas Aeruginosa Raoultella Planticola Complete 08/06/19 04:45 Rectum VRE Culture - Final NO VANCOMYCIN RESISTANT ENTEROCOCCUS ... Complete Current Medications Medications (Trade) Dose Ordered Sig/Kristine Route PRN Reason Start Time Stop Time Status Last Admin Dose Admin Acetaminophen (Tylenol) 650 mg Q4H PRN ORAL Fever 09/09/19 22:30 10/09/19 22:29 09/09/19 22:42 Amlodipine Besylate (Norvasc) 10 mg DAILY ORAL 09/10/19 09:00 09/28/19 08:59 09/10/19 10:39 Apixaban (Eliquis) 2.5 mg BID@0900,2100 ORAL 09/09/19 21:00 12/06/19 08:59 09/10/19 10:37 Ascorbic Acid (Vitamin C) 250 mg DAILY ORAL 09/10/19 09:00 10/10/19 08:59 09/10/19 10:39 Escitalopram Oxalate (Lexapro) 5 mg DAILY ORAL 09/10/19 09:00 10/09/19 08:59 09/10/19 10:37 Famotidine (Pepcid) 20 mg DAILY ORAL 09/10/19 09:00 12/09/19 08:59 09/10/19 10:37 Finasteride (Proscar) 5 mg DAILY ORAL 09/10/19 09:00 11/05/19 15:44 09/10/19 10:40 Hydralazine HCl (Apresoline) 25 mg TID ORAL 09/09/19 13:00 12/05/19 08:59 09/10/19 10:40 Isosorbide Mononitrate (Imdur) 30 mg DAILY ORAL 09/10/19 09:00 10/10/19 08:59 09/10/19 10:39 Lorazepam (Ativan 2mg/ml 1ml) 1 mg Q4H PRN IV For Anxiety 09/09/19 22:30 09/16/19 22:29 09/09/19 22:42 Magnesium Hydroxide (Mom) 30 ml TIDPRN PRN ORAL Constipation 09/09/19 13:00 10/09/19 12:59 Multivitamins (Multivitamins) 1 tab DAILY ORAL 09/10/19 09:00 10/10/19 08:59 09/10/19 10:38 Potassium Chloride (K-Dur) 20 meq TWICE A DAY ORAL 09/09/19 18:00 12/07/19 11:44 09/10/19 10:40 Tamsulosin HCl (Flomax) 0.4 mg BEDTIME ORAL 09/09/19 21:00 10/06/19 20:59 09/09/19 20:35 Trazodone HCl (Desyrel) 25 mg BEDTIME ORAL 09/09/19 21:00 10/09/19 20:59 09/09/19 20:35 Valproic Acid (Depakene) 250 mg EVERY 12 HOURS NG 09/09/19 21:00 10/22/19 20:59 09/10/19 10:38 Laboratory Tests 09/10/19 03:40: White Blood Count 3.8L, Red Blood Count 3.03L, Hemoglobin 8.7L, Hematocrit 25.8L , Mean Corpuscular Volume 85, Mean Corpuscular Hemoglobin 28.9, Mean Corpuscular Hemoglobin Concent 33.9, Red Cell Distribution Width 12.9, Platelet Count 187, Mean Platelet Volume 6.4L, Neutrophils (%) (Auto) 67.1, Lymphocytes ( %) (Auto) 18.3L, Monocytes (%) (Auto) 11.2H, Eosinophils (%) (Auto) 2.0, Basophils (%) (Auto) 1.3, Sodium Level 148H, Potassium Level 3.5, Chloride Level 112H, Carbon Dioxide Level 27, Anion Gap 9, Blood Urea Nitrogen 37H, Creatinine 1.9H, Estimat Glomerular Filtration Rate 33.9, Glucose Level 96, Calcium Level 9.3, Phosphorus Level 2.8, Magnesium Level 1.9, Total Bilirubin 0.3, Direct Bilirubin 0.1, Aspartate Amino Transf (AST/SGOT) 71H, Alanine Aminotransferase (ALT/SGPT) 51, Alkaline Phosphatase 111, Pro-B-Type Natriuretic Peptide 9075H, Total Protein 5.8L, Albumin 2.4L Height (Feet): 5 Height (Inches): 6.00 Weight (Pounds): 107 Objective exam stable abdomen soft urine grossly yellow Bamshad,Miki Perry MD Sep 10, 2019 11:34
--- NOTE | 2019-09-10 11:41 | General Progress Note ---
Assessment/Plan Problem List: (1) CHF (congestive heart failure) ICD Codes: I50.9 - Heart failure, unspecified SNOMED: 94861868 (2) Renal failure (ARF), acute on chronic ICD Codes: N17.9 - Acute kidney failure, unspecified; N18.9 - Chronic kidney disease, unspecified SNOMED: 802275647 (3) Encephalopathy due to metabolic factor or toxin SNOMED: 133802364 (4) Gross hematuria ICD Codes: R31.0 - Gross hematuria SNOMED: 491890995 (5) Falls frequently ICD Codes: R29.6 - Repeated falls SNOMED: 455470319 (6) Dehydration ICD Codes: E86.0 - Dehydration SNOMED: 02523693 (7) UTI (urinary tract infection) ICD Codes: N39.0 - Urinary tract infection, site not specified SNOMED: 62146874 (8) Anemia ICD Codes: D64.9 - Anemia, unspecified SNOMED: 115684963 Status: stable, progressing, not improved Assessment/Plan: o2 as needed. currently stable on room air. fall precautions. monitor cxr Encourage pos. monitor labs. IVF as needed Anxiolytics as needed. Continue blood pressure treatment. DVT and stress ulcer prophylaxis. monitor labs/lytes replace as needed. Discharge planning to halfway facility on hold for now. will need 2 neg covid tests. Subjective ROS Limited/Unobtainable: Yes Constitutional: Reports: no symptoms HEENT: Reports: no symptoms Cardiovascular: Reports: no symptoms Respiratory: Reports: no symptoms Gastrointestinal/Abdominal: Reports: no symptoms Genitourinary: Reports: no symptoms Neurologic/Psychiatric: Reports: anxiety Endocrine: Reports: no symptoms Hematologic/Lymphatic: Reports: anemia Allergies: Coded Allergies: No Known Allergies (Unverified , 06/05/19) All Systems: reviewed and negative except above Subjective No overnight events. Patient remains intermittently agitated and uncooperative with care. Continues to get out of bed unassisted. Required Ativan for agitation. Was noted to be screaming and anxious last night. COVID-19 PCR on September 06 is still positive. Patient remains asymptomatic without fevers chills or cough. Still with abnormal chest x-ray Objective Last 24 Hour Vital Signs Date Time Temp Pulse Resp B/P (MAP) Pulse Ox O2 Delivery O2 Flow Rate FiO2 09/10/19 10:40 158/68 09/10/19 10:39 158/68 09/10/19 10:39 65 158/68 09/10/19 08:00 97.7 65 20 158/68 (98) 99 09/10/19 04:00 97.3 67 20 145/67 (93) 94 09/10/19 00:00 98.1 76 20 141/58 (85) 93 09/09/19 23:12 98.1 09/09/19 21:00 Room Air 09/09/19 20:00 100.0 83 22 146/59 (88) 94 09/09/19 18:55 153/84 09/09/19 18:55 153/84 09/09/19 16:00 96.3 75 20 153/84 (107) 96 09/09/19 12:30 120/67 09/09/19 12:00 96.7 81 18 120/67 (84) 97 Intake and Output 09/09/19 09/10/19 19:00 07:00 # Voids 3 3 # Bowel Movements 1 Laboratory Tests 09/10/19 03:40: White Blood Count 3.8L, Red Blood Count 3.03L, Hemoglobin 8.7L, Hematocrit 25.8L , Mean Corpuscular Volume 85, Mean Corpuscular Hemoglobin 28.9, Mean Corpuscular Hemoglobin Concent 33.9, Red Cell Distribution Width 12.9, Platelet Count 187, Mean Platelet Volume 6.4L, Neutrophils (%) (Auto) 67.1, Lymphocytes ( %) (Auto) 18.3L, Monocytes (%) (Auto) 11.2H, Eosinophils (%) (Auto) 2.0, Basophils (%) (Auto) 1.3, Sodium Level 148H, Potassium Level 3.5, Chloride Level 112H, Carbon Dioxide Level 27, Anion Gap 9, Blood Urea Nitrogen 37H, Creatinine 1.9H, Estimat Glomerular Filtration Rate 33.9, Glucose Level 96, Calcium Level 9.3, Phosphorus Level 2.8, Magnesium Level 1.9, Total Bilirubin 0.3, Direct Bilirubin 0.1, Aspartate Amino Transf (AST/SGOT) 71H, Alanine Aminotransferase (ALT/SGPT) 51, Alkaline Phosphatase 111, Pro-B-Type Natriuretic Peptide 9075H, Total Protein 5.8L, Albumin 2.4L Height (Feet): 5 Height (Inches): 6.00 Weight (Pounds): 107 Objective General Appearance: WD/WN, alert, confused Neck: supple Cardiovascular: regular rhythm Respiratory/Chest: rhonchi - bilaterally Abdomen: normal bowel sounds, non tender, soft, no organomegaly, no mass Edema: no edema noted Arm (L), no edema noted Arm (R), no edema noted Leg (L), no edema noted Leg (R), no edema noted Pedal (L), no edema noted Pedal (R), no edema noted Generalized Neurologic: air director II-XII grossly normal, alert, responsive Iggy Echavarria MD Sep 10, 2019 11:41
--- NOTE | 2019-09-10 11:43 | Pulmonology Progress Note ---
Assessment/Plan Assessment/Plan IMPRESSION: 1. Pleural effusions, small bilateral. 2. Atelectasis. 3. Pulmonary edema, questionable. 4. Hypertension. 5. Hyperlipidemia. 6. positive COVID 19 7. UTI DISCUSSION: The patient is saturating well on room air I will follow as auricular detoxification specialist. No new recommendations Kimani Hahn M.D. Subjective ROS Limited/Unobtainable: Yes Interval Events: None new reported Constitutional: Denies: fever HEENT: Repors: no symptoms Respiratory: Reports: no symptoms Cardiovascular: Reports: no symptoms Gastrointestinal/Abdominal: Denies: nausea, vomiting, diarrhea Genitourinary: Reports: no symptoms Neurologic: Reports: no symptoms Musculoskeletal: Denies: pain Allergies: Coded Allergies: No Known Allergies (Unverified , 06/05/19) All Systems: reviewed and negative except above Objective Last 24 Hour Vital Signs Date Time Temp Pulse Resp B/P (MAP) Pulse Ox O2 Delivery O2 Flow Rate FiO2 09/10/19 10:40 158/68 09/10/19 10:39 158/68 09/10/19 10:39 65 158/68 09/10/19 08:00 97.7 65 20 158/68 (98) 99 09/10/19 04:00 97.3 67 20 145/67 (93) 94 09/10/19 00:00 98.1 76 20 141/58 (85) 93 09/09/19 23:12 98.1 09/09/19 21:00 Room Air 09/09/19 20:00 100.0 83 22 146/59 (88) 94 09/09/19 18:55 153/84 09/09/19 18:55 153/84 09/09/19 16:00 96.3 75 20 153/84 (107) 96 09/09/19 12:30 120/67 09/09/19 12:00 96.7 81 18 120/67 (84) 97 Intake and Output 09/09/19 09/10/19 19:00 07:00 # Voids 3 3 # Bowel Movements 1 General Appearance: no acute distress HEENT: mucous membranes moist Respiratory/Chest: chest wall non-tender, lungs clear Cardiovascular: normal peripheral pulses Abdomen: soft, non tender Extremities: no edema Neurologic/Psychiatric: other - sleeping Microbiology Date/Time Source Procedure Growth Status 09/07/19 19:00 Nasopharynx Coronavirus COVID-19 PCR ([facility]) - Final Complete Laboratory Tests 09/10/19 03:40: White Blood Count 3.8L, Red Blood Count 3.03L, Hemoglobin 8.7L, Hematocrit 25.8L , Mean Corpuscular Volume 85, Mean Corpuscular Hemoglobin 28.9, Mean Corpuscular Hemoglobin Concent 33.9, Red Cell Distribution Width 12.9, Platelet Count 187, Mean Platelet Volume 6.4L, Neutrophils (%) (Auto) 67.1, Lymphocytes ( %) (Auto) 18.3L, Monocytes (%) (Auto) 11.2H, Eosinophils (%) (Auto) 2.0, Basophils (%) (Auto) 1.3, Sodium Level 148H, Potassium Level 3.5, Chloride Level 112H, Carbon Dioxide Level 27, Anion Gap 9, Blood Urea Nitrogen 37H, Creatinine 1.9H, Estimat Glomerular Filtration Rate 33.9, Glucose Level 96, Calcium Level 9.3, Phosphorus Level 2.8, Magnesium Level 1.9, Total Bilirubin 0.3, Direct Bilirubin 0.1, Aspartate Amino Transf (AST/SGOT) 71H, Alanine Aminotransferase (ALT/SGPT) 51, Alkaline Phosphatase 111, Pro-B-Type Natriuretic Peptide 9075H, Total Protein 5.8L, Albumin 2.4L Current Medications Medications (Trade) Dose Ordered Sig/Kristine Route PRN Reason Start Time Stop Time Status Last Admin Dose Admin Acetaminophen (Tylenol) 650 mg Q4H PRN ORAL Fever 09/09/19 22:30 10/09/19 22:29 09/09/19 22:42 Amlodipine Besylate (Norvasc) 10 mg DAILY ORAL 09/10/19 09:00 09/28/19 08:59 09/10/19 10:39 Apixaban (Eliquis) 2.5 mg BID@0900,2100 ORAL 09/09/19 21:00 12/06/19 08:59 09/10/19 10:37 Ascorbic Acid (Vitamin C) 250 mg DAILY ORAL 09/10/19 09:00 10/10/19 08:59 09/10/19 10:39 Escitalopram Oxalate (Lexapro) 5 mg DAILY ORAL 09/10/19 09:00 10/09/19 08:59 09/10/19 10:37 Famotidine (Pepcid) 20 mg DAILY ORAL 09/10/19 09:00 12/09/19 08:59 09/10/19 10:37 Finasteride (Proscar) 5 mg DAILY ORAL 09/10/19 09:00 11/05/19 15:44 09/10/19 10:40 Hydralazine HCl (Apresoline) 25 mg TID ORAL 09/09/19 13:00 12/05/19 08:59 09/10/19 10:40 Isosorbide Mononitrate (Imdur) 30 mg DAILY ORAL 09/10/19 09:00 10/10/19 08:59 09/10/19 10:39 Lorazepam (Ativan 2mg/ml 1ml) 1 mg Q4H PRN IV For Anxiety 09/09/19 22:30 09/16/19 22:29 09/09/19 22:42 Magnesium Hydroxide (Mom) 30 ml TIDPRN PRN ORAL Constipation 09/09/19 13:00 10/09/19 12:59 Multivitamins (Multivitamins) 1 tab DAILY ORAL 09/10/19 09:00 10/10/19 08:59 09/10/19 10:38 Potassium Chloride (K-Dur) 20 meq TWICE A DAY ORAL 09/09/19 18:00 12/07/19 11:44 09/10/19 10:40 Tamsulosin HCl (Flomax) 0.4 mg BEDTIME ORAL 09/09/19 21:00 10/06/19 20:59 09/09/19 20:35 Trazodone HCl (Desyrel) 25 mg BEDTIME ORAL 09/09/19 21:00 10/09/19 20:59 09/09/19 20:35 Valproic Acid (Depakene) 250 mg EVERY 12 HOURS NG 09/09/19 21:00 10/22/19 20:59 09/10/19 10:38 Kimani Hahn MD Sep 10, 2019 11:43
[2019-09-10 12:00] VITALS: BP 135/60
--- NOTE | 2019-09-10 15:20 | NUR ---
P.T. NOTES S/P: U/A TO TREAT PATIENT SECONDARY TO NO PPE. NO GOWNS AVAILABLE. RN STATED, "WE HAVE A GOWN SHORTAGE. WE ARE RATIONING." WILL F/U NEXT TX. TIME AND CONT WITH P.T. PLAN. RSABADO.
[2019-09-10 16:00] VITALS: BP 127/67
--- NOTE | 2019-09-10 19:41 | Surgery Progress Note ---
Surgery Progress Note Subjective Additional Comments labs reviewed comfortable exam stable Objective Last 24 Hour Vital Signs Date Time Temp Pulse Resp B/P (MAP) Pulse Ox O2 Delivery O2 Flow Rate FiO2 09/10/19 17:39 127/67 09/10/19 16:00 97.7 82 20 127/67 (87) 98 09/10/19 12:00 97.5 83 20 135/60 (85) 96 09/10/19 10:40 158/68 09/10/19 10:39 158/68 09/10/19 10:39 65 158/68 09/10/19 08:00 97.7 65 20 158/68 (98) 99 09/10/19 04:00 97.3 67 20 145/67 (93) 94 09/10/19 00:00 98.1 76 20 141/58 (85) 93 09/09/19 23:12 98.1 09/09/19 21:00 Room Air 09/09/19 20:00 100.0 83 22 146/59 (88) 94 I&O Intake and Output 09/09/19 09/10/19 18:59 06:59 # Voids 3 3 # Bowel Movements 1 Dressing: other Wound: other Drains: other Cardiovascular: RSR Respiratory: decreased breath sounds Abdomen: soft, non-tender, present bowel sounds Extremities: no tenderness, no cyanosis Laboratory Tests Test 09/10/19 03:40 White Blood Count 3.8 K/UL (4.8-10.8) L Red Blood Count 3.03 M/UL (4.70-6.10) L Hemoglobin 8.7 G/DL (14.2-18.0) L Hematocrit 25.8 % (42.0-52.0) L Mean Corpuscular Volume 85 FL (80-99) Mean Corpuscular Hemoglobin 28.9 PG (27.0-31.0) Mean Corpuscular Hemoglobin Concent 33.9 G/DL (32.0-36.0) Red Cell Distribution Width 12.9 % (11.6-14.8) Platelet Count 187 K/UL (150-450) Mean Platelet Volume 6.4 FL (6.5-10.1) L Neutrophils (%) (Auto) 67.1 % (45.0-75.0) Lymphocytes (%) (Auto) 18.3 % (20.0-45.0) L Monocytes (%) (Auto) 11.2 % (1.0-10.0) H Eosinophils (%) (Auto) 2.0 % (0.0-3.0) Basophils (%) (Auto) 1.3 % (0.0-2.0) Sodium Level 148 MMOL/L (136-145) H Potassium Level 3.5 MMOL/L (3.5-5.1) Chloride Level 112 MMOL/L (98-107) H Carbon Dioxide Level 27 MMOL/L (21-32) Anion Gap 9 mmol/L (5-15) Blood Urea Nitrogen 37 mg/dL (7-18) H Creatinine 1.9 MG/DL (0.55-1.30) H Estimat Glomerular Filtration Rate 33.9 mL/min (>60) Glucose Level 96 MG/DL (74-106) Calcium Level 9.3 MG/DL (8.5-10.1) Phosphorus Level 2.8 MG/DL (2.5-4.9) Magnesium Level 1.9 MG/DL (1.8-2.4) Total Bilirubin 0.3 MG/DL (0.2-1.0) Direct Bilirubin 0.1 MG/DL (0.0-0.3) Aspartate Amino Transf (AST/SGOT) 71 U/L (15-37) H Alanine Aminotransferase (ALT/SGPT) 51 U/L (12-78) Alkaline Phosphatase 111 U/L (46-116) Pro-B-Type Natriuretic Peptide 9075 pg/mL (0-125) H Total Protein 5.8 G/DL (6.4-8.2) L Albumin 2.4 G/DL (3.4-5.0) L Plan Problems: (1) Dehydration (2) Anemia (3) UTI (urinary tract infection) (4) Falls frequently (5) Renal failure (ARF), acute on chronic (6) Encephalopathy due to metabolic factor or toxin (7) CHF (congestive heart failure) (8) Gross hematuria (9) Deep tissue injury Assessment & Plan: Pt presented on admission with multiple pressure injuries which were resolving. 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 Base of injury is purple with maroon borders . Surrounding non-blanching erythema to R and Gluteal cheeks. Scrotum is erythematous. R and L heels are boggy but each area blanchable. Tx.Plan: Apply Moisture Barrier Paste to Sacrum. Cover with Optifoam drsg. Change every 3 days and prn. Apply Moisture Barrier Paste to bilat groin and scrotum with each incontinence care. Apply Cavilon Skin Barrier to both heels. Cover each heel with Optifoam drsg. Change every 7 days and prn. Reposition at least every 2hours or as tolerated. Off-load heels with pillow. APM/MEI Mattress overlay. (10) Malnutrition Assessment & Plan: DAILY ESTIMATED NEEDS: Needs based on Wound, 66.8kg 28-33 kcals/kg 6910-6548 total kcals 1.25-1.5 g protein/kg 84-100 g total protein 25-30 mL/kg 5956-6349 total fluid mLs NUTRITION DIAGNOSIS: Swallowing difficulty r/t dysphagia and ams as evidenced by s/p DIRECTOR OF [employer] COUNSELING [employer] eval, poor cognition, pt on liquify puree texture diet w/ HTL, now with improved intake. CURRENT DIET: Liquify puree HTL Regular PO DIET RECOMMENDATIONS: Maintain Regular diet, texture per DIRECTOR OF GROUP COUNSELING [employer]GRAM ADDITIONAL RECOMMENDATIONS: 1) Ensure Enlive TID w/ meals (350kcal/20g prot per bottle) 2) Maintain calibrated bed scale wts EMR wt: 160# vs Bed scale wt: 147#-> bed now reads 109.8# 3) Consider D5 IVF (vs 1/2 NS running currently)- Na elevated to prevent hypoglycemia given poor/variable PO 4) Wound care: MVI 1 tab QD + Vit C 250mg QD+ Jacob BID 5) Monitor lytes, replete as needed (11) Severe protein-calorie malnutrition Sai Aaron Sep 10, 2019 19:41
--- NOTE | 2019-09-10 19:52 | NUR ---
HAND-OFF: Report given to LUIS FERNANDO Villatoro.
--- NOTE | 2019-09-10 19:55 | NUR ---
NURSE NOTES: Patient is in bed, awake and confused. On room air, no signs of distress or SOB. IV intact and patent. Bed locked and in lowest position with bed alarm on. Will continue with plan of care.
[2019-09-10 20:00] VITALS: BP 145/72
--- NOTE | 2019-09-10 21:00 | Progress Note ---
DATE: 09/09/2019 SUBJECTIVE: The patient is in bed. The patient is calmer and manageable, saturating well on room air, no acute distress noted, at times is agitated. MENTAL STATUS EXAMINATION: Alert, more talkative. Mood is neutral. Affect is flat. Thought process, there is a paucity of thought content. Thought content, no suicidal, homicidal ideation. ASSESSMENT: Stable. PLAN: Continue Depakote. Loco Luu M.D. DR: JOSE DE JESUS JOB#: [id number] CC:
[2019-09-10] MEDS: TraZODone HCl 25 mg tablet ORAL SCH (22:03)
[2019-09-10] MEDS: Tamsulosin 0.4mg cap ORAL SCH (22:04)
--- NOTE | 2019-09-10 22:22 | Psych Consult Progress Note ---
Psychiatry Progress Note Psychiatry Progress Note Medications Current Medications Medications (Trade) Dose Ordered Sig/Kristine Route PRN Reason Start Time Stop Time Status Last Admin Dose Admin Acetaminophen (Tylenol) 650 mg Q4H PRN ORAL Fever 09/09/19 22:30 10/09/19 22:29 09/09/19 22:42 Amlodipine Besylate (Norvasc) 10 mg DAILY ORAL 09/10/19 09:00 09/28/19 08:59 09/10/19 10:39 Apixaban (Eliquis) 2.5 mg BID@0900,2100 ORAL 09/09/19 21:00 12/06/19 08:59 09/10/19 22:03 Ascorbic Acid (Vitamin C) 250 mg DAILY ORAL 09/10/19 09:00 10/10/19 08:59 09/10/19 10:39 Escitalopram Oxalate (Lexapro) 5 mg DAILY ORAL 09/10/19 09:00 10/09/19 08:59 09/10/19 10:37 Famotidine (Pepcid) 20 mg DAILY ORAL 09/10/19 09:00 12/09/19 08:59 09/10/19 10:37 Finasteride (Proscar) 5 mg DAILY ORAL 09/10/19 09:00 11/05/19 15:44 09/10/19 10:40 Hydralazine HCl (Apresoline) 25 mg TID ORAL 09/09/19 13:00 12/05/19 08:59 09/10/19 17:39 Isosorbide Mononitrate (Imdur) 30 mg DAILY ORAL 09/10/19 09:00 10/10/19 08:59 09/10/19 10:39 Lorazepam (Ativan 2mg/ml 1ml) 1 mg Q4H PRN IV For Anxiety 09/09/19 22:30 09/16/19 22:29 09/09/19 22:42 Magnesium Hydroxide (Mom) 30 ml TIDPRN PRN ORAL Constipation 09/09/19 13:00 10/09/19 12:59 Multivitamins (Multivitamins) 1 tab DAILY ORAL 09/10/19 09:00 10/10/19 08:59 09/10/19 10:38 Potassium Chloride (K-Dur) 20 meq TWICE A DAY ORAL 09/09/19 18:00 12/07/19 11:44 09/10/19 17:39 Tamsulosin HCl (Flomax) 0.4 mg BEDTIME ORAL 09/09/19 21:00 10/06/19 20:59 09/10/19 22:04 Trazodone HCl (Desyrel) 25 mg BEDTIME ORAL 09/09/19 21:00 10/09/19 20:59 09/10/19 22:03 Valproic Acid (Depakene) 250 mg EVERY 12 HOURS NG 09/09/19 21:00 10/22/19 20:59 09/10/19 22:03 Allergies: Coded Allergies: No Known Allergies (Unverified , 06/05/19) Objective Data Height (Feet): 5 Height (Inches): 6.00 Weight (Pounds): 107 Assessment/Plan Problem List: (1) Encephalopathy due to metabolic factor or toxin Assessment & Plan: 2. Psychotic disorder. SNOMED: 208326797 Status: stable, progressing, not improved Assessment/Plan: PLAN: 1. lexapro 2. risperidone. 3. Loco Ortiz rn, MD Sep 10, 2019 22:22
[2019-09-11] VITALS: BP 129/70
[2019-09-11 04:00] VITALS: BP 152/71
[2019-09-11 08:00] VITALS: BP 141/72
[2019-09-11] MEDS: HydrALAZINE 25mg tab ORAL SCH ×3 (08:30→21:31)
[2019-09-11] MEDS: Ascorbic Acid 500mg tab ORAL SCH (08:30)
[2019-09-11] MEDS: Eliquis 2.5mg tablet ORAL SCH ×2 (08:30→21:31)
[2019-09-11] MEDS: Imdur 30mg tab ORAL SCH (08:31)
[2019-09-11] MEDS: Valproic Acid 250mg/5ml Liquid NG SCH ×2 (08:39→21:34)
--- NOTE | 2019-09-11 10:01 | General Progress Note ---
Assessment/Plan Problem List: (1) CHF (congestive heart failure) ICD Codes: I50.9 - Heart failure, unspecified SNOMED: 20678814 (2) Renal failure (ARF), acute on chronic ICD Codes: N17.9 - Acute kidney failure, unspecified; N18.9 - Chronic kidney disease, unspecified SNOMED: 644664479 (3) Encephalopathy due to metabolic factor or toxin SNOMED: 291358251 (4) Gross hematuria ICD Codes: R31.0 - Gross hematuria SNOMED: 954516719 (5) Falls frequently ICD Codes: R29.6 - Repeated falls SNOMED: 050811842 (6) Dehydration ICD Codes: E86.0 - Dehydration SNOMED: 65476234 (7) UTI (urinary tract infection) ICD Codes: N39.0 - Urinary tract infection, site not specified SNOMED: 80718851 (8) Anemia ICD Codes: D64.9 - Anemia, unspecified SNOMED: 951971638 Status: stable, progressing, not improved Assessment/Plan: o2 as needed. currently stable on room air. fall precautions. monitor cxr Encourage pos. monitor labs. IVF as needed Anxiolytics as needed. Continue blood pressure treatment. DVT and stress ulcer prophylaxis. monitor labs/lytes replace as needed. [facility]. will need 2 neg covid tests. Subjective ROS Limited/Unobtainable: No Constitutional: Reports: malaise, weakness HEENT: Reports: no symptoms Cardiovascular: Reports: no symptoms Respiratory: Reports: no symptoms Gastrointestinal/Abdominal: Reports: no symptoms Genitourinary: Reports: no symptoms Neurologic/Psychiatric: Reports: anxiety, emotional problems, pre-existing deficit Endocrine: Reports: no symptoms Hematologic/Lymphatic: Reports: anemia Allergies: Coded Allergies: No Known Allergies (Unverified , 06/05/19) All Systems: reviewed and negative except above Subjective No overnight events. Patient remains intermittently agitated and uncooperative with care. Continues to get out of bed unassisted. did not require any anxiolytics last night. COVID-19 PCR on September 06 is still positive. Patient remains asymptomatic without fevers chills or cough. Still with abnormal chest x-ray Objective Last 24 Hour Vital Signs Date Time Temp Pulse Resp B/P (MAP) Pulse Ox O2 Delivery O2 Flow Rate FiO2 09/11/19 09:00 Room Air 09/11/19 08:31 141/72 09/11/19 08:30 141/72 09/11/19 08:30 68 141/72 09/11/19 08:00 98.7 91 19 141/72 (95) 98 09/11/19 04:00 97.7 69 24 152/71 (98) 98 09/11/19 00:00 98.1 88 22 129/70 (89) 94 09/10/19 21:00 Room Air 09/10/19 20:00 97.7 93 24 145/72 (96) 93 09/10/19 17:39 127/67 09/10/19 16:00 97.7 82 20 127/67 (87) 98 09/10/19 12:00 97.5 83 20 135/60 (85) 96 09/10/19 10:40 158/68 09/10/19 10:39 158/68 09/10/19 10:39 65 158/68 Intake and Output 09/10/19 09/11/19 19:00 07:00 Intake Total 480 ml Balance 480 ml Intake Oral 480 ml # Voids 4 3 Height (Feet): 5 Height (Inches): 6.00 Weight (Pounds): 107 Objective General Appearance: WD/WN, alert, confused Neck: supple Cardiovascular: regular rhythm Respiratory/Chest: rhonchi - bilaterally Abdomen: normal bowel sounds, non tender, soft, no organomegaly, no mass Edema: no edema noted Arm (L), no edema noted Arm (R), no edema noted Leg (L), no edema noted Leg (R), no edema noted Pedal (L), no edema noted Pedal (R), no edema noted Generalized Neurologic: host/hostess head II-XII grossly normal, alert, responsive Iggy Echavarria MD Sep 11, 2019 10:01
--- NOTE | 2019-09-11 10:09 | Urology Progress Note ---
Assessment/Plan Status: stable, progressing, not improved Assessment/Plan: 1. Gross hematuria hx, presumably secondary to Doshi trauma, resolved. 2. BPH. 3. Urinary retention. 4. Neurogenic bladder. 5. Pyuria?UTI/colonized. 6. Proteinuria. 7. Renal insufficiency, which appears to be acute on chronic. 8. Rule out urethral stricture. monitor clinically doshi out, voiding/incontinent on proscar and flomax s/p abx restraints PRN cysto at some point monitor PVR and reinsert doshi PRN renal imaging? COVID (+) Eliquis resumed monitor for bleeding Subjective Allergies: Coded Allergies: No Known Allergies (Unverified , 06/05/19) Subjective all noted, confused, doshi out, incontinent, condom cath Objective Last 24 Hour Vital Signs Date Time Temp Pulse Resp B/P (MAP) Pulse Ox O2 Delivery O2 Flow Rate FiO2 09/11/19 09:00 Room Air 09/11/19 08:31 141/72 09/11/19 08:30 141/72 09/11/19 08:30 68 141/72 09/11/19 08:00 98.7 91 19 141/72 (95) 98 09/11/19 04:00 97.7 69 24 152/71 (98) 98 09/11/19 00:00 98.1 88 22 129/70 (89) 94 09/10/19 21:00 Room Air 09/10/19 20:00 97.7 93 24 145/72 (96) 93 09/10/19 17:39 127/67 09/10/19 16:00 97.7 82 20 127/67 (87) 98 09/10/19 12:00 97.5 83 20 135/60 (85) 96 09/10/19 10:40 158/68 09/10/19 10:39 158/68 09/10/19 10:39 65 158/68 Intake and Output 09/10/19 09/11/19 19:00 07:00 Intake Total 480 ml Balance 480 ml Intake Oral 480 ml # Voids 4 3 Microbiology Date/Time Source Procedure Growth Status 09/07/19 19:00 Nasopharynx Coronavirus COVID-19 PCR ([facility]OS[facility]) - Final Complete 08/28/19 12:31 Indwelling Cath Urine Culture - Final Pseudomonas Aeruginosa Raoultella Planticola Complete 08/06/19 04:45 Rectum VRE Culture - Final NO VANCOMYCIN RESISTANT ENTEROCOCCUS ... Complete Current Medications Medications (Trade) Dose Ordered Sig/Kristine Route PRN Reason Start Time Stop Time Status Last Admin Dose Admin Acetaminophen (Tylenol) 650 mg Q4H PRN ORAL Fever 09/09/19 22:30 10/09/19 22:29 09/09/19 22:42 Amlodipine Besylate (Norvasc) 10 mg DAILY ORAL 09/10/19 09:00 09/28/19 08:59 09/11/19 08:30 Apixaban (Eliquis) 2.5 mg BID@0900,2100 ORAL 09/09/19 21:00 12/06/19 08:59 09/11/19 08:30 Ascorbic Acid (Vitamin C) 250 mg DAILY ORAL 09/10/19 09:00 10/10/19 08:59 09/11/19 08:30 Escitalopram Oxalate (Lexapro) 5 mg DAILY ORAL 09/10/19 09:00 10/09/19 08:59 09/11/19 08:30 Famotidine (Pepcid) 20 mg DAILY ORAL 09/10/19 09:00 12/09/19 08:59 09/11/19 08:30 Finasteride (Proscar) 5 mg DAILY ORAL 09/10/19 09:00 11/05/19 15:44 09/11/19 08:30 Hydralazine HCl (Apresoline) 25 mg TID ORAL 09/09/19 13:00 12/05/19 08:59 09/11/19 08:30 Isosorbide Mononitrate (Imdur) 30 mg DAILY ORAL 09/10/19 09:00 10/10/19 08:59 09/11/19 08:31 Lorazepam (Ativan 2mg/ml 1ml) 1 mg Q4H PRN IV For Anxiety 09/09/19 22:30 09/16/19 22:29 09/09/19 22:42 Magnesium Hydroxide (Mom) 30 ml TIDPRN PRN ORAL Constipation 09/09/19 13:00 10/09/19 12:59 Multivitamins (Multivitamins) 1 tab DAILY ORAL 09/10/19 09:00 10/10/19 08:59 09/11/19 08:30 Potassium Chloride (K-Dur) 20 meq TWICE A DAY ORAL 09/09/19 18:00 12/07/19 11:44 09/11/19 08:31 Tamsulosin HCl (Flomax) 0.4 mg BEDTIME ORAL 09/09/19 21:00 10/06/19 20:59 09/10/19 22:04 Trazodone HCl (Desyrel) 25 mg BEDTIME ORAL 09/09/19 21:00 10/09/19 20:59 09/10/19 22:03 Valproic Acid (Depakene) 250 mg EVERY 12 HOURS NG 09/09/19 21:00 10/22/19 20:59 09/10/19 22:03 Height (Feet): 5 Height (Inches): 6.00 Weight (Pounds): 107 Objective exam stable abdomen soft urine grossly yellow Bamshad,Miki Perry MD Sep 11, 2019 10:09
[2019-09-11 12:00] VITALS: BP 132/68
--- NOTE | 2019-09-11 12:24 | Pulmonology Progress Note ---
Assessment/Plan Assessment/Plan IMPRESSION: 1. Pleural effusions, small bilateral. 2. Atelectasis. 3. Pulmonary edema, questionable. 4. Hypertension. 5. Hyperlipidemia. 6. positive COVID 19 7. 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 No new recommendations Kimani Hahn M.D. Subjective ROS Limited/Unobtainable: No Interval Events: None new reported Constitutional: Denies: fever HEENT: Repors: no symptoms Respiratory: Reports: no symptoms Cardiovascular: Reports: no symptoms Gastrointestinal/Abdominal: Denies: nausea, vomiting, diarrhea Genitourinary: Reports: no symptoms Neurologic: Reports: no symptoms Musculoskeletal: Denies: pain Allergies: Coded Allergies: No Known Allergies (Unverified , 06/05/19) All Systems: reviewed and negative except above Objective Last 24 Hour Vital Signs Date Time Temp Pulse Resp B/P (MAP) Pulse Ox O2 Delivery O2 Flow Rate FiO2 09/11/19 09:00 Room Air 09/11/19 08:31 141/72 09/11/19 08:30 141/72 09/11/19 08:30 68 141/72 09/11/19 08:00 98.7 91 19 141/72 (95) 98 09/11/19 04:00 97.7 69 24 152/71 (98) 98 09/11/19 00:00 98.1 88 22 129/70 (89) 94 09/10/19 21:00 Room Air 09/10/19 20:00 97.7 93 24 145/72 (96) 93 09/10/19 17:39 127/67 09/10/19 16:00 97.7 82 20 127/67 (87) 98 Intake and Output 09/10/19 09/11/19 19:00 07:00 Intake Total 480 ml Balance 480 ml Intake Oral 480 ml # Voids 4 3 General Appearance: no acute distress HEENT: mucous membranes moist Respiratory/Chest: chest wall non-tender, lungs clear Cardiovascular: normal peripheral pulses Abdomen: soft, non tender Extremities: no edema Neurologic/Psychiatric: other - sleeping Current Medications Medications (Trade) Dose Ordered Sig/Kristine Route PRN Reason Start Time Stop Time Status Last Admin Dose Admin Acetaminophen (Tylenol) 650 mg Q4H PRN ORAL Fever 09/09/19 22:30 10/09/19 22:29 09/09/19 22:42 Amlodipine Besylate (Norvasc) 10 mg DAILY ORAL 09/10/19 09:00 09/28/19 08:59 09/11/19 08:30 Apixaban (Eliquis) 2.5 mg BID@0900,2100 ORAL 09/09/19 21:00 12/06/19 08:59 09/11/19 08:30 Ascorbic Acid (Vitamin C) 250 mg DAILY ORAL 09/10/19 09:00 10/10/19 08:59 09/11/19 08:30 Escitalopram Oxalate (Lexapro) 5 mg DAILY ORAL 09/10/19 09:00 10/09/19 08:59 09/11/19 08:30 Famotidine (Pepcid) 20 mg DAILY ORAL 09/10/19 09:00 12/09/19 08:59 09/11/19 08:30 Finasteride (Proscar) 5 mg DAILY ORAL 09/10/19 09:00 11/05/19 15:44 09/11/19 08:30 Hydralazine HCl (Apresoline) 25 mg TID ORAL 09/09/19 13:00 12/05/19 08:59 09/11/19 08:30 Isosorbide Mononitrate (Imdur) 30 mg DAILY ORAL 09/10/19 09:00 10/10/19 08:59 09/11/19 08:31 Lorazepam (Ativan 2mg/ml 1ml) 1 mg Q4H PRN IV For Anxiety 09/09/19 22:30 09/16/19 22:29 09/09/19 22:42 Magnesium Hydroxide (Mom) 30 ml TIDPRN PRN ORAL Constipation 09/09/19 13:00 10/09/19 12:59 Multivitamins (Multivitamins) 1 tab DAILY ORAL 09/10/19 09:00 10/10/19 08:59 09/11/19 08:30 Potassium Chloride (K-Dur) 20 meq TWICE A DAY ORAL 09/09/19 18:00 12/07/19 11:44 09/11/19 08:31 Tamsulosin HCl (Flomax) 0.4 mg BEDTIME ORAL 09/09/19 21:00 10/06/19 20:59 09/10/19 22:04 Trazodone HCl (Desyrel) 25 mg BEDTIME ORAL 09/09/19 21:00 10/09/19 20:59 09/10/19 22:03 Valproic Acid (Depakene) 250 mg EVERY 12 HOURS NG 09/09/19 21:00 10/22/19 20:59 09/10/19 22:03 Kimani Hahn MD Sep 11, 2019 12:24
--- NOTE | 2019-09-11 13:02 | NUR ---
HAND-OFF: Report given to LUIS FERNANDO Freitas.
--- NOTE | 2019-09-11 13:30 | Infectious Diseases Prog Note ---
Assessment/Plan Assessment/Plan A 1. COVID 19 pneumonia test + on 4.14.20, 4.16.20, 09/06 2. Pseudomonas and Raoultella urinary tract infection s/p rx 3. Renal failure. 4. hypertension 5. cardiomyopathy P 1. observe off antibiotics 2. will follow up COVID test 3. Continue isolation Subjective ROS Limited/Unobtainable: Yes Allergies: Coded Allergies: No Known Allergies (Unverified , 06/05/19) Objective Vital Signs Last 24 Hour Vital Signs Date Time Temp Pulse Resp B/P (MAP) Pulse Ox O2 Delivery O2 Flow Rate FiO2 09/11/19 12:42 132/68 09/11/19 12:00 98.5 78 12 132/68 (89) 95 09/11/19 09:00 Room Air 09/11/19 08:31 141/72 09/11/19 08:30 141/72 09/11/19 08:30 68 141/72 09/11/19 08:00 98.7 91 19 141/72 (95) 98 09/11/19 04:00 97.7 69 24 152/71 (98) 98 09/11/19 00:00 98.1 88 22 129/70 (89) 94 09/10/19 21:00 Room Air 09/10/19 20:00 97.7 93 24 145/72 (96) 93 09/10/19 17:39 127/67 09/10/19 16:00 97.7 82 20 127/67 (87) 98 Height (Feet): 5 Height (Inches): 6.00 Weight (Pounds): 107 General Appearance: no acute distress, cachetic HEENT: mucous membranes moist Cardiovascular: normal rate Abdomen: soft, non tender Extremities: no edema Neurologic/Psychiatric: disoriented Current Medications Medications (Trade) Dose Ordered Sig/Kristine Route PRN Reason Start Time Stop Time Status Last Admin Dose Admin Acetaminophen (Tylenol) 650 mg Q4H PRN ORAL Fever 09/09/19 22:30 10/09/19 22:29 09/09/19 22:42 Amlodipine Besylate (Norvasc) 10 mg DAILY ORAL 09/10/19 09:00 09/28/19 08:59 09/11/19 08:30 Apixaban (Eliquis) 2.5 mg BID@0900,2100 ORAL 09/09/19 21:00 12/06/19 08:59 09/11/19 08:30 Ascorbic Acid (Vitamin C) 250 mg DAILY ORAL 09/10/19 09:00 10/10/19 08:59 09/11/19 08:30 Escitalopram Oxalate (Lexapro) 5 mg DAILY ORAL 09/10/19 09:00 10/09/19 08:59 09/11/19 08:30 Famotidine (Pepcid) 20 mg DAILY ORAL 09/10/19 09:00 12/09/19 08:59 09/11/19 08:30 Finasteride (Proscar) 5 mg DAILY ORAL 09/10/19 09:00 11/05/19 15:44 09/11/19 08:30 Hydralazine HCl (Apresoline) 25 mg TID ORAL 09/09/19 13:00 12/05/19 08:59 09/11/19 12:42 Isosorbide Mononitrate (Imdur) 30 mg DAILY ORAL 09/10/19 09:00 10/10/19 08:59 09/11/19 08:31 Lorazepam (Ativan 2mg/ml 1ml) 1 mg Q4H PRN IV For Anxiety 09/09/19 22:30 09/16/19 22:29 09/09/19 22:42 Magnesium Hydroxide (Mom) 30 ml TIDPRN PRN ORAL Constipation 09/09/19 13:00 10/09/19 12:59 Multivitamins (Multivitamins) 1 tab DAILY ORAL 09/10/19 09:00 10/10/19 08:59 09/11/19 08:30 Potassium Chloride (K-Dur) 20 meq TWICE A DAY ORAL 09/09/19 18:00 12/07/19 11:44 09/11/19 08:31 Tamsulosin HCl (Flomax) 0.4 mg BEDTIME ORAL 09/09/19 21:00 10/06/19 20:59 09/10/19 22:04 Trazodone HCl (Desyrel) 25 mg BEDTIME ORAL 09/09/19 21:00 10/09/19 20:59 09/10/19 22:03 Valproic Acid (Depakene) 250 mg EVERY 12 HOURS NG 09/09/19 21:00 10/22/19 20:59 09/10/19 22:03 Cr Mauro MD Sep 11, 2019 13:30
--- NOTE | 2019-09-11 13:41 | Nephrology Progress Note ---
Assessment/Plan Problem List: (1) Renal failure (ARF), acute on chronic Assessment: Serum creatinine stabilizing (2) Falls frequently (3) UTI (urinary tract infection) Assessment: and hematuria (4) Anemia (5) Dehydration (6) Encephalopathy due to metabolic factor or toxin Assessment Frequent falls Acute renal failure with underlying dehydration Anemia, underlying etiology unclear UTI (urinary tract infection) Toxic metabolic encephalopathy Plan Serum creatinine overall stable vacillating between 1.7- to 2 Patient now COVID-19 positive Start D5W for hypernatremia as needed P.o. intake variable Oral potassium supplement as needed previously: Increase Flomax to twice daily Correct electrolytes as needed Transfusion as needed 2D echocardiogram ejection fraction 60% Kidney ultrasound pending results Monitor renal parameters Avoid nephrotoxics Antibiotics for UTI Continue per consultants Subjective ROS Limited/Unobtainable: No Constitutional: Reports: malaise, weakness Objective Objective Last 24 Hour Vital Signs Date Time Temp Pulse Resp B/P (MAP) Pulse Ox O2 Delivery O2 Flow Rate FiO2 09/11/19 12:42 132/68 09/11/19 12:00 98.5 78 12 132/68 (89) 95 09/11/19 09:00 Room Air 09/11/19 08:31 141/72 09/11/19 08:30 141/72 09/11/19 08:30 68 141/72 09/11/19 08:00 98.7 91 19 141/72 (95) 98 09/11/19 04:00 97.7 69 24 152/71 (98) 98 09/11/19 00:00 98.1 88 22 129/70 (89) 94 09/10/19 21:00 Room Air 09/10/19 20:00 97.7 93 24 145/72 (96) 93 09/10/19 17:39 127/67 09/10/19 16:00 97.7 82 20 127/67 (87) 98 Intake and Output 09/10/19 09/11/19 19:00 07:00 Intake Total 480 ml Balance 480 ml Intake Oral 480 ml # Voids 4 3 Height (Feet): 5 Height (Inches): 6.00 Weight (Pounds): 107 General Appearance: no apparent distress Cardiovascular: normal rate Respiratory/Chest: decreased breath sounds Objective No change Juan Jade MD Sep 11, 2019 13:41
--- NOTE | 2019-09-11 19:10 | NUR ---
NURSE NOTES: RECEIVED REPORT FROM CHARGE NURSE. PATIENT IS AWAKE, AAOX1, ON ROOM AIR, NO ACUTE DISTRESS NOTED. WOUND DRESSINGS INTACT AND DRY. IV ON RIGHT ARM IS INTACT AND PATENT. BED IS LOCKED AND LOW, BED ALARMS NOTED. SIDE RAILS UPX2 AND CALL LIGHT IS WITHIN REACH. WILL CONTINUE TO MONITOR.
--- NOTE | 2019-09-11 19:30 | NUR ---
NURSE NOTES: 1800 WAS NOT GIVEN, CONSULTED WITH PHARMACY AND WAS INFORMED THAT IT WAS OK TO GIVE WITH 2100 MEDS.
[2019-09-11 20:00] VITALS: BP 171/60
--- NOTE | 2019-09-11 21:29 | Progress Note ---
DATE: 09/10/2019 CARDIOLOGY PROGRESS NOTE SUBJECTIVE: The patient with episodes of agitation and confusion. He still has positive COVID-19 swab. Monitor with atrial fibrillation. PHYSICAL EXAMINATION: VITAL SIGNS: Blood pressure 158/68, pulse 65, respiratory rate 20, and afebrile. LUNGS: Bilateral breath sounds. No wheezing. HEART: Irregularly irregular rhythm. Normal S1, S2. ABDOMEN: Soft. EXTREMITIES: No edema. LABORATORY DATA: White count 3.8, hemoglobin 8.7. Sodium 148, potassium 3.5, BUN 37, creatinine 1.9. Pro natriuretic peptide 9000. Albumin 2.4. IMPRESSION: 1. COVID-19 pneumonia. 2. Dehydration. 3. 4. Metabolic encephalopathy. 5. Toxic encephalopathy. 6. Paroxysmal atrial fibrillation. 7. Acute on chronic diastolic congestive heart failure. 8. Mitral valve replacement with regurgitation. 9. Pulmonary hypertension. PLAN: 1. Check laboratory studies as needed. 2. Free water replacement. 3. Encourage fluid intake. 4. Titrate antihypertensives. 5. Anticoagulation for cardioembolic prophylaxis. Gamaliel Salas M.D. DR: Lexii JOB#: [id number] CC:
[2019-09-11] MEDS: TraZODone HCl 25 mg tablet ORAL SCH (21:31)
[2019-09-11] MEDS: Tamsulosin 0.4mg cap ORAL SCH (21:31)
--- NOTE | 2019-09-11 22:00 | Progress Note ---
DATE: 09/11/2019 CARDIOLOGY PROGRESS NOTE SUBJECTIVE: The patient remains with unchanged condition, still with episodes of anxiety and agitation, still on isolation for COVID-19 pneumonia. Monitored rhythm atrial fibrillation, rate controlled. PHYSICAL EXAMINATION: VITAL SIGNS: Blood pressure 132/68, pulse 78, respiratory rate 12, afebrile. LUNGS: Few rhonchi. CARDIAC: Irregularly irregular rhythm. Normal S1 and S2. A 1/6 systolic apical murmur. ABDOMEN: Soft. EXTREMITIES: There is no edema. IMPRESSION: 1. Metabolic and toxic encephalopathy. 2. COVID-19 pneumonia. 3. Mitral valve repair with regurgitation. 4. Pulmonary hypertension. 5. Hypertensive heart disease with improved blood pressure today. 6. Acute on chronic diastolic congestive heart failure. 7. Dehydration. 8. . PLAN: 1. Recheck laboratory studies. 2. Optimize cardiovascular regimen based on clinical parameters. 3. Encourage fluid intake. 4. May need resumption of IV fluids. 5. Await clearance of COVID-19. 6. Continue full anticoagulation for cardioembolic prophylaxis. Gamaliel Salas M.D. DR: Lexii JOB#: [id number] CC:
--- NOTE | 2019-09-11 22:07 | Surgery Progress Note ---
Surgery Progress Note Subjective Additional Comments no acute events labs reviewed micro noted exam stable Objective Last 24 Hour Vital Signs Date Time Temp Pulse Resp B/P (MAP) Pulse Ox O2 Delivery O2 Flow Rate FiO2 09/11/19 21:31 171/60 09/11/19 20:00 97.2 65 22 171/60 (97) 98 09/11/19 12:42 132/68 09/11/19 12:00 98.5 78 12 132/68 (89) 95 09/11/19 09:00 Room Air 09/11/19 08:31 141/72 09/11/19 08:30 141/72 09/11/19 08:30 68 141/72 09/11/19 08:00 98.7 91 19 141/72 (95) 98 09/11/19 04:00 97.7 69 24 152/71 (98) 98 09/11/19 00:00 98.1 88 22 129/70 (89) 94 I&O Intake and Output 09/10/19 09/11/19 19:00 07:00 Intake Total 480 ml Balance 480 ml Intake Oral 480 ml # Voids 4 3 Dressing: other Wound: other Drains: other Cardiovascular: RSR Respiratory: decreased breath sounds Abdomen: soft, non-tender, present bowel sounds Extremities: no tenderness, no cyanosis Plan Problems: (1) Dehydration (2) Anemia (3) UTI (urinary tract infection) (4) Falls frequently (5) Renal failure (ARF), acute on chronic (6) Encephalopathy due to metabolic factor or toxin (7) CHF (congestive heart failure) (8) Gross hematuria (9) Deep tissue injury Assessment & Plan: Pt presented on admission with multiple pressure injuries which were resolving. 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 Base of injury is purple with maroon borders . Surrounding non-blanching erythema to R and Gluteal cheeks. Scrotum is erythematous. R and L heels are boggy but each area blanchable. Tx.Plan: Apply Moisture Barrier Paste to Sacrum. Cover with Optifoam drsg. Change every 3 days and prn. Apply Moisture Barrier Paste to bilat groin and scrotum with each incontinence care. Apply Cavilon Skin Barrier to both heels. Cover each heel with Optifoam drsg. Change every 7 days and prn. Reposition at least every 2hours or as tolerated. Off-load heels with pillow. APM/MEI Mattress overlay. (10) Malnutrition Assessment & Plan: DAILY ESTIMATED NEEDS: Needs based on Wound, 66.8kg 28-33 kcals/kg 0517-4377 total kcals 1.25-1.5 g protein/kg 84-100 g total protein 25-30 mL/kg 7694-3887 total fluid mLs NUTRITION DIAGNOSIS: Swallowing difficulty r/t dysphagia and ams as evidenced by s/p CHILDREN'S MINISTER eval, poor cognition, pt on liquify puree texture diet w/ HTL, now with improved intake. CURRENT DIET: Liquify puree HTL Regular PO DIET RECOMMENDATIONS: Maintain Regular diet, texture per CHILDREN'S MINISTER ADDITIONAL RECOMMENDATIONS: 1) Ensure Enlive TID w/ meals (350kcal/20g prot per bottle) 2) Maintain calibrated bed scale wts EMR wt: 160# vs Bed scale wt: 147#-> bed now reads 109.8# 3) Consider D5 IVF (vs 1/2 NS running currently)- Na elevated to prevent hypoglycemia given poor/variable PO 4) Wound care: MVI 1 tab QD + Vit C 250mg QD+ Jacob BID 5) Monitor lytes, replete as needed (11) Severe protein-calorie malnutrition Sai Aaron Sep 11, 2019 22:07
[2019-09-12] VITALS: BP 163/71
[2019-09-12 04:00] VITALS: BP 158/69
--- NOTE | 2019-09-12 07:36 | NUR ---
HAND-OFF: Report given to LUIS FERNANDO Galeas. Patient is in stable condition. Endorsed plan of care.
[2019-09-12 08:00] VITALS: BP 164/71
[2019-09-12 08:05] LABS: HEMATOCRIT 30.7 % (42.0-52.0); HEMOGLOBIN 10.6 G/DL (14.2-18.0); MEAN CORPUSCULAR VOLUME 86 FL (80-99); PLATELET COUNT 196 K/UL (150-450); RED BLOOD COUNT 3.56 M/UL (4.70-6.10); RED CELL DISTRIBUTION WIDTH 13.1 % (11.6-14.8); WHITE BLOOD COUNT 5.1 K/UL (4.8-10.8)
[2019-09-12 08:22] LABS: ALANINE AMINOTRANSFERASE 33 U/L (12-78); ALBUMIN 2.7 G/DL (3.4-5.0); ALBUMIN/GLOBULIN RATIO 0.7 (1.0-2.7); ALKALINE PHOSPHATASE 109 U/L (46-116); ANION GAP 12 mmol/L (5-15); ASPARTATE AMINO TRANSFERASE 42 U/L (15-37); BILIRUBIN,TOTAL 0.4 MG/DL (0.2-1.0); BLOOD UREA NITROGEN 33 mg/dL (7-18); CALCIUM 10.2 MG/DL (8.5-10.1); CARBON DIOXIDE 24 MMOL/L (21-32); CHLORIDE 116 MMOL/L (98-107); CREATININE 1.9 MG/DL (0.55-1.30); LACTATE DEHYDROGENASE 328 U/L (81-234); PHOSPHORUS 2.5 MG/DL (2.5-4.9); POTASSIUM 4.6 MMOL/L (3.5-5.1); SODIUM 152 MMOL/L (136-145)
--- NOTE | 2019-09-12 08:47 | NUR ---
NURSE NOTES: received report from Samreen,RN. patient in bed. alert. confused. verbally responsive. limited communication d/t impaired cognition. no respiratory distress on room air. no facial grimacing. IV on right fore arm saline lock. intact. contact+droplet isolation d/t positive covid19. bed in the lowest position and locked. call light within reach. will continue to provide plan of care.
[2019-09-12] MEDS: HydrALAZINE 25mg tab ORAL SCH (08:57)
[2019-09-12] MEDS: Ascorbic Acid 500mg tab ORAL SCH (08:57)
[2019-09-12] MEDS: Eliquis 2.5mg tablet ORAL SCH ×2 (08:57→20:43)
[2019-09-12] MEDS: Imdur 30mg tab ORAL SCH (08:57)
[2019-09-12] MEDS: Valproic Acid 250mg/5ml Liquid NG SCH ×2 (08:58→20:43)
--- NOTE | 2019-09-12 09:15 | General Progress Note ---
Assessment/Plan Problem List: (1) CHF (congestive heart failure) ICD Codes: I50.9 - Heart failure, unspecified SNOMED: 09402011 (2) Renal failure (ARF), acute on chronic ICD Codes: N17.9 - Acute kidney failure, unspecified; N18.9 - Chronic kidney disease, unspecified SNOMED: 874072934 (3) Encephalopathy due to metabolic factor or toxin SNOMED: 186744779 (4) Gross hematuria ICD Codes: R31.0 - Gross hematuria SNOMED: 623159366 (5) Falls frequently ICD Codes: R29.6 - Repeated falls SNOMED: 579786881 (6) Dehydration ICD Codes: E86.0 - Dehydration SNOMED: 53842790 (7) UTI (urinary tract infection) ICD Codes: N39.0 - Urinary tract infection, site not specified SNOMED: 43024136 (8) Anemia ICD Codes: D64.9 - Anemia, unspecified SNOMED: 622140603 Status: stable, progressing, not improved Assessment/Plan: o2 as needed. currently stable on room air. fall precautions. monitor cxr Encourage pos. monitor labs. hypotonic ivf resumed due to increased Na. will repeat labs tomorrow Anxiolytics as needed. Continue blood pressure treatment. DVT and stress ulcer prophylaxis. Discharge planning to [facility] facility on hold for now. will need 2 neg covid tests. Subjective ROS Limited/Unobtainable: Yes Constitutional: Reports: malaise, weakness HEENT: Reports: no symptoms Cardiovascular: Reports: no symptoms Respiratory: Reports: no symptoms Gastrointestinal/Abdominal: Reports: poor fluid intake Genitourinary: Reports: no symptoms Neurologic/Psychiatric: Reports: anxiety, emotional problems, pre-existing deficit Endocrine: Reports: no symptoms Hematologic/Lymphatic: Reports: anemia Allergies: Coded Allergies: No Known Allergies (Unverified , 06/05/19) All Systems: reviewed and negative except above Subjective No overnight events. Patient remains intermittently agitated. mostly cooperative with care. Continues to get out of bed unassisted. did not require any anxiolytics last night. COVID-19 PCR on September 06 is still positive. Patient remains asymptomatic without fevers chills or cough. Na trending up. Objective Last 24 Hour Vital Signs Date Time Temp Pulse Resp B/P (MAP) Pulse Ox O2 Delivery O2 Flow Rate FiO2 09/12/19 08:57 164/71 09/12/19 08:57 164/71 09/12/19 08:57 67 164/71 09/12/19 08:00 97.8 67 17 164/71 (102) 98 09/12/19 04:00 97.4 76 22 158/69 (98) 99 09/12/19 00:00 97.8 74 22 163/71 (101) 98 09/11/19 21:31 171/60 09/11/19 21:00 Room Air 09/11/19 20:00 97.2 65 22 171/60 (97) 98 09/11/19 12:42 132/68 09/11/19 12:00 98.5 78 12 132/68 (89) 95 Intake and Output 09/11/19 09/12/19 19:00 07:00 Intake Total 400 ml Balance 400 ml Other 400 ml # Voids 2 Laboratory Tests 09/12/19 05:00: White Blood Count 5.1, Red Blood Count 3.56L, Hemoglobin 10.6L, Hematocrit 30.7L , Mean Corpuscular Volume 86, Mean Corpuscular Hemoglobin 29.7, Mean Corpuscular Hemoglobin Concent 34.4, Red Cell Distribution Width 13.1, Platelet Count 196, Mean Platelet Volume 6.5, Neutrophils (%) (Auto) , Lymphocytes (%) ( Auto) , Monocytes (%) (Auto) , Eosinophils (%) (Auto) , Basophils (%) (Auto) , Neutrophils % (Manual) [Pending], Lymphocytes % (Manual) [Pending], Platelet Estimate [Pending], Platelet Morphology [Pending], Sodium Level 152H, Potassium Level 4.6, Chloride Level 116H, Carbon Dioxide Level 24, Anion Gap 12, Blood Urea Nitrogen 33H, Creatinine 1.9H, Estimat Glomerular Filtration Rate 33.9, Glucose Level 82, Uric Acid 6.5, Calcium Level 10.2H, Phosphorus Level 2.5, Magnesium Level 2.3, Total Bilirubin 0.4, Aspartate Amino Transf (AST/SGOT) 42H , Alanine Aminotransferase (ALT/SGPT) 33, Alkaline Phosphatase 109, Lactate Dehydrogenase 328H, C-Reactive Protein, Quantitative 4.6H, Total Protein 6.8, Albumin 2.7L, Globulin 4.1, Albumin/Globulin Ratio 0.7L Height (Feet): 5 Height (Inches): 6.00 Weight (Pounds): 107 Objective General Appearance: WD/WN, alert, confused Neck: supple Cardiovascular: regular rhythm Respiratory/Chest: rhonchi - bilaterally Abdomen: normal bowel sounds, non tender, soft, no organomegaly, no mass Edema: no edema noted Arm (L), no edema noted Arm (R), no edema noted Leg (L), no edema noted Leg (R), no edema noted Pedal (L), no edema noted Pedal (R), no edema noted Generalized Neurologic: contract associate II-XII grossly normal, alert, responsive Iggy Echavarria MD Sep 12, 2019 09:15
--- NOTE | 2019-09-12 10:36 | NUR ---
RD ASSESSMENT & RECOMMENDATIONS SEE CARE ACTIVITY FOR COMPLETE ASSESSMENT DAILY ESTIMATED NEEDS: Needs based on Wound, 66.8kg 28-33 kcals/kg 8439-2816 total kcals 1.25-1.5 g protein/kg 84-100 g total protein 25-30 mL/kg 5197-6594 total fluid mLs NUTRITION DIAGNOSIS: Swallowing difficulty r/t dysphagia and ams as evidenced by s/p [employer] eval, poor cognition, pt on liquify puree texture diet w/ HTL, now with variable intake. CURRENT DIET: Liquify puree HTL Regular PO DIET RECOMMENDATIONS: Maintain Regular diet, texture per [employer] ADDITIONAL RECOMMENDATIONS: 1) Ensure Enlive TID w/ meals (350kcal/20g prot per bottle) 2) Maintain calibrated bed scale wts EMR wt: 160# vs Bed scale wt: 147#-> bed now reads 109.8# 3) Consider D5 IVF Na, BUN, Creat trending up and to prevent hypoglycemia given poor/variable PO 4) Wound care: MVI 1 tab QD + Vit C 250mg QD+ Jacob BID 5) Monitor lytes, replete as needed 6) Consult RD if non oral feeds are part of POC
[2019-09-12] MEDS: LORazepam Inj 2mg/ml 1ml IV PRN ×2 (11:18→20:43)
--- NOTE | 2019-09-12 11:20 | NUR ---
NURSE NOTES: patient is agitated. ripped off IV. taking off clothing. trying to get out from bed. Administered IV ativan 1mg/0.5ml PRN as ordered.
--- NOTE | 2019-09-12 11:29 | Infectious Diseases Prog Note ---
Assessment/Plan Assessment/Plan antibiotics : none A 1. COVID 19 pneumonia test + on 4.14.20, 4.16.20, 4.22.20 2. Pseudomonas and Raoultella urinary tract infection s/p rx 3. Renal failure. 4. hypertension 5. cardiomyopathy P 1. observe off antibiotics 2. will follow up cultures 3. Continue isolation Subjective ROS Limited/Unobtainable: Yes Allergies: Coded Allergies: No Known Allergies (Unverified , 06/05/19) Objective Vital Signs Last 24 Hour Vital Signs Date Time Temp Pulse Resp B/P (MAP) Pulse Ox O2 Delivery O2 Flow Rate FiO2 09/12/19 09:00 Room Air 09/12/19 08:57 164/71 09/12/19 08:57 164/71 09/12/19 08:57 67 164/71 09/12/19 08:00 97.8 67 17 164/71 (102) 98 09/12/19 04:00 97.4 76 22 158/69 (98) 99 09/12/19 00:00 97.8 74 22 163/71 (101) 98 09/11/19 21:31 171/60 09/11/19 21:00 Room Air 09/11/19 20:00 97.2 65 22 171/60 (97) 98 09/11/19 12:42 132/68 09/11/19 12:00 98.5 78 12 132/68 (89) 95 Height (Feet): 5 Height (Inches): 6.00 Weight (Pounds): 107 Laboratory Tests Test 09/12/19 05:00 White Blood Count 5.1 K/UL (4.8-10.8) Red Blood Count 3.56 M/UL (4.70-6.10) L Hemoglobin 10.6 G/DL (14.2-18.0) L Hematocrit 30.7 % (42.0-52.0) L Mean Corpuscular Volume 86 FL (80-99) Mean Corpuscular Hemoglobin 29.7 PG (27.0-31.0) Mean Corpuscular Hemoglobin Concent 34.4 G/DL (32.0-36.0) Red Cell Distribution Width 13.1 % (11.6-14.8) Platelet Count 196 K/UL (150-450) Mean Platelet Volume 6.5 FL (6.5-10.1) Neutrophils (%) (Auto) % (45.0-75.0) Lymphocytes (%) (Auto) % (20.0-45.0) Monocytes (%) (Auto) % (1.0-10.0) Eosinophils (%) (Auto) % (0.0-3.0) Basophils (%) (Auto) % (0.0-2.0) Differential Total Cells Counted 100 Neutrophils % (Manual) 75 % (45-75) Lymphocytes % (Manual) 21 % (20-45) Monocytes % (Manual) 3 % (1-10) Eosinophils % (Manual) 1 % (0-3) Basophils % (Manual) 0 % (0-2) Band Neutrophils 0 % (0-8) Platelet Estimate Adequate Platelet Morphology Normal Red Blood Cell Morphology Normal Sodium Level 152 MMOL/L (136-145) H Potassium Level 4.6 MMOL/L (3.5-5.1) Chloride Level 116 MMOL/L (98-107) H Carbon Dioxide Level 24 MMOL/L (21-32) Anion Gap 12 mmol/L (5-15) Blood Urea Nitrogen 33 mg/dL (7-18) H Creatinine 1.9 MG/DL (0.55-1.30) H Estimat Glomerular Filtration Rate 33.9 mL/min (>60) Glucose Level 82 MG/DL (74-106) Uric Acid 6.5 MG/DL (2.6-7.2) Calcium Level 10.2 MG/DL (8.5-10.1) H Phosphorus Level 2.5 MG/DL (2.5-4.9) Magnesium Level 2.3 MG/DL (1.8-2.4) Total Bilirubin 0.4 MG/DL (0.2-1.0) Aspartate Amino Transf (AST/SGOT) 42 U/L (15-37) H Alanine Aminotransferase (ALT/SGPT) 33 U/L (12-78) Alkaline Phosphatase 109 U/L (46-116) Lactate Dehydrogenase 328 U/L (81-234) H C-Reactive Protein, Quantitative 4.6 mg/dL (0.00-0.90) H Total Protein 6.8 G/DL (6.4-8.2) Albumin 2.7 G/DL (3.4-5.0) L Globulin 4.1 g/dL Albumin/Globulin Ratio 0.7 (1.0-2.7) L Current Medications Medications (Trade) Dose Ordered Sig/Kristine Route PRN Reason Start Time Stop Time Status Last Admin Dose Admin Acetaminophen (Tylenol) 650 mg Q4H PRN ORAL Fever 09/09/19 22:30 10/09/19 22:29 09/09/19 22:42 Amlodipine Besylate (Norvasc) 10 mg DAILY ORAL 09/10/19 09:00 09/28/19 08:59 09/12/19 08:57 Apixaban (Eliquis) 2.5 mg BID@0900,2100 ORAL 09/09/19 21:00 12/06/19 08:59 09/12/19 08:57 Ascorbic Acid (Vitamin C) 250 mg DAILY ORAL 09/10/19 09:00 10/10/19 08:59 09/12/19 08:57 Dextrose 1,000 ml @ 75 mls/hr [id number] IV 09/12/19 09:15 10/12/19 09:14 09/12/19 09:15 Escitalopram Oxalate (Lexapro) 5 mg DAILY ORAL 09/10/19 09:00 10/09/19 08:59 09/12/19 08:57 Famotidine (Pepcid) 20 mg DAILY ORAL 09/10/19 09:00 12/09/19 08:59 09/12/19 08:57 Finasteride (Proscar) 5 mg DAILY ORAL 09/10/19 09:00 11/05/19 15:44 09/12/19 08:57 Hydralazine HCl (Apresoline) 25 mg TID ORAL 09/09/19 13:00 12/05/19 08:59 09/12/19 08:57 Isosorbide Mononitrate (Imdur) 30 mg DAILY ORAL 09/10/19 09:00 10/10/19 08:59 09/12/19 08:57 Lorazepam (Ativan 2mg/ml 1ml) 1 mg Q4H PRN IV For Anxiety 09/09/19 22:30 09/16/19 22:29 09/12/19 11:18 Magnesium Hydroxide (Mom) 30 ml TIDPRN PRN ORAL Constipation 09/09/19 13:00 10/09/19 12:59 Multivitamins (Multivitamins) 1 tab DAILY ORAL 09/10/19 09:00 10/10/19 08:59 09/12/19 08:57 Tamsulosin HCl (Flomax) 0.4 mg BEDTIME ORAL 09/09/19 21:00 10/06/19 20:59 09/11/19 21:31 Trazodone HCl (Desyrel) 25 mg BEDTIME ORAL 09/09/19 21:00 10/09/19 20:59 09/11/19 21:31 Valproic Acid (Depakene) 250 mg EVERY 12 HOURS NG 09/09/19 21:00 10/22/19 20:59 09/12/19 08:58 Gonzalez Stephens MD Sep 12, 2019 11:29
--- NOTE | 2019-09-12 11:49 | Pulmonology Progress Note ---
Assessment/Plan Assessment/Plan IMPRESSION: 1. Pleural effusions, small bilateral. 2. Atelectasis. 3. Pulmonary edema, questionable. 4. Hypertension. 5. Hyperlipidemia. 6. positive COVID 19 7. 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 No new recommendations Kimani Hahn M.D. Subjective ROS Limited/Unobtainable: Yes Interval Events: None new reported Constitutional: Denies: fever HEENT: Repors: no symptoms Respiratory: Reports: no symptoms Cardiovascular: Reports: no symptoms Gastrointestinal/Abdominal: Denies: nausea, vomiting, diarrhea Genitourinary: Reports: no symptoms Neurologic: Reports: no symptoms Musculoskeletal: Denies: pain Allergies: Coded Allergies: No Known Allergies (Unverified , 06/05/19) All Systems: reviewed and negative except above Objective Last 24 Hour Vital Signs Date Time Temp Pulse Resp B/P (MAP) Pulse Ox O2 Delivery O2 Flow Rate FiO2 09/12/19 09:00 Room Air 09/12/19 08:57 164/71 09/12/19 08:57 164/71 09/12/19 08:57 67 164/71 09/12/19 08:00 97.8 67 17 164/71 (102) 98 09/12/19 04:00 97.4 76 22 158/69 (98) 99 09/12/19 00:00 97.8 74 22 163/71 (101) 98 09/11/19 21:31 171/60 09/11/19 21:00 Room Air 09/11/19 20:00 97.2 65 22 171/60 (97) 98 09/11/19 12:42 132/68 09/11/19 12:00 98.5 78 12 132/68 (89) 95 Intake and Output 09/11/19 09/12/19 19:00 07:00 Intake Total 400 ml Balance 400 ml Other 400 ml # Voids 2 General Appearance: no acute distress, cachetic HEENT: mucous membranes moist Respiratory/Chest: chest wall non-tender, lungs clear Cardiovascular: normal peripheral pulses Abdomen: soft, non tender Extremities: no edema Neurologic/Psychiatric: disoriented Laboratory Tests 09/12/19 05:00: White Blood Count 5.1, Red Blood Count 3.56L, Hemoglobin 10.6L, Hematocrit 30.7L , Mean Corpuscular Volume 86, Mean Corpuscular Hemoglobin 29.7, Mean Corpuscular Hemoglobin Concent 34.4, Red Cell Distribution Width 13.1, Platelet Count 196, Mean Platelet Volume 6.5, Neutrophils (%) (Auto) , Lymphocytes (%) ( Auto) , Monocytes (%) (Auto) , Eosinophils (%) (Auto) , Basophils (%) (Auto) , Differential Total Cells Counted 100, Neutrophils % (Manual) 75, Lymphocytes % ( Manual) 21, Monocytes % (Manual) 3, Eosinophils % (Manual) 1, Basophils % ( Manual) 0, Band Neutrophils 0, Platelet Estimate Adequate, Platelet Morphology Normal, Red Blood Cell Morphology Normal, Sodium Level 152H, Potassium Level 4.6 , Chloride Level 116H, Carbon Dioxide Level 24, Anion Gap 12, Blood Urea Nitrogen 33H, Creatinine 1.9H, Estimat Glomerular Filtration Rate 33.9, Glucose Level 82, Uric Acid 6.5, Calcium Level 10.2H, Phosphorus Level 2.5, Magnesium Level 2.3, Total Bilirubin 0.4, Aspartate Amino Transf (AST/SGOT) 42H, Alanine Aminotransferase (ALT/SGPT) 33, Alkaline Phosphatase 109, Lactate Dehydrogenase 328H, C-Reactive Protein, Quantitative 4.6H, Total Protein 6.8, Albumin 2.7L, Globulin 4.1, Albumin/Globulin Ratio 0.7L Current Medications Medications (Trade) Dose Ordered Sig/Kristine Route PRN Reason Start Time Stop Time Status Last Admin Dose Admin Acetaminophen (Tylenol) 650 mg Q4H PRN ORAL Fever 09/09/19 22:30 10/09/19 22:29 09/09/19 22:42 Amlodipine Besylate (Norvasc) 10 mg DAILY ORAL 09/10/19 09:00 09/28/19 08:59 09/12/19 08:57 Apixaban (Eliquis) 2.5 mg BID@0900,2100 ORAL 09/09/19 21:00 12/06/19 08:59 09/12/19 08:57 Ascorbic Acid (Vitamin C) 250 mg DAILY ORAL 09/10/19 09:00 10/10/19 08:59 09/12/19 08:57 Dextrose 1,000 ml @ 75 mls/hr [id number] IV 09/12/19 09:15 10/12/19 09:14 09/12/19 09:15 Escitalopram Oxalate (Lexapro) 5 mg DAILY ORAL 09/10/19 09:00 10/09/19 08:59 09/12/19 08:57 Famotidine (Pepcid) 20 mg DAILY ORAL 09/10/19 09:00 12/09/19 08:59 09/12/19 08:57 Finasteride (Proscar) 5 mg DAILY ORAL 09/10/19 09:00 11/05/19 15:44 09/12/19 08:57 Hydralazine HCl (Apresoline) 25 mg TID ORAL 09/09/19 13:00 12/05/19 08:59 09/12/19 08:57 Isosorbide Mononitrate (Imdur) 30 mg DAILY ORAL 09/10/19 09:00 10/10/19 08:59 09/12/19 08:57 Lorazepam (Ativan 2mg/ml 1ml) 1 mg Q4H PRN IV For Anxiety 09/09/19 22:30 09/16/19 22:29 09/12/19 11:18 Magnesium Hydroxide (Mom) 30 ml TIDPRN PRN ORAL Constipation 09/09/19 13:00 10/09/19 12:59 Multivitamins (Multivitamins) 1 tab DAILY ORAL 09/10/19 09:00 10/10/19 08:59 09/12/19 08:57 Tamsulosin HCl (Flomax) 0.4 mg BEDTIME ORAL 09/09/19 21:00 10/06/19 20:59 09/11/19 21:31 Trazodone HCl (Desyrel) 25 mg BEDTIME ORAL 09/09/19 21:00 10/09/19 20:59 09/11/19 21:31 Valproic Acid (Depakene) 250 mg EVERY 12 HOURS NG 09/09/19 21:00 10/22/19 20:59 09/12/19 08:58 Kimani Hahn MD Sep 12, 2019 11:49
--- NOTE | 2019-09-12 11:54 | NUR ---
NURSE NOTES: patient is calm now s/p Ativan IVP 1mg. getting IV D5w@75/hr.
--- NOTE | 2019-09-12 11:56 | Nephrology Progress Note ---
Assessment/Plan Problem List: (1) Renal failure (ARF), acute on chronic Assessment: Serum creatinine stabilizing (2) Falls frequently (3) UTI (urinary tract infection) Assessment: and hematuria (4) Anemia (5) Dehydration (6) Encephalopathy due to metabolic factor or toxin (7) Hypercalcemia Assessment Frequent falls Acute renal failure with underlying dehydration Anemia, underlying etiology unclear UTI (urinary tract infection) Toxic metabolic encephalopathy Plan Serum creatinine overall stable vacillating between 1.7- to 2 Watch serum calcium, start calcitonin nasal spray for hypercalcemia Increase hydralazine dose for better blood pressure control Patient now COVID-19 positive Start D5W for hypernatremia as needed P.o. intake variable Oral potassium supplement as needed previously: Increase Flomax to twice daily Correct electrolytes as needed Transfusion as needed 2D echocardiogram ejection fraction 60% Kidney ultrasound pending results Monitor renal parameters Avoid nephrotoxics Antibiotics for UTI Continue per consultants Subjective ROS Limited/Unobtainable: No Constitutional: Reports: malaise, weakness Objective Objective Last 24 Hour Vital Signs Date Time Temp Pulse Resp B/P (MAP) Pulse Ox O2 Delivery O2 Flow Rate FiO2 09/12/19 09:00 Room Air 09/12/19 08:57 164/71 09/12/19 08:57 164/71 09/12/19 08:57 67 164/71 09/12/19 08:00 97.8 67 17 164/71 (102) 98 09/12/19 04:00 97.4 76 22 158/69 (98) 99 09/12/19 00:00 97.8 74 22 163/71 (101) 98 09/11/19 21:31 171/60 09/11/19 21:00 Room Air 09/11/19 20:00 97.2 65 22 171/60 (97) 98 09/11/19 12:42 132/68 09/11/19 12:00 98.5 78 12 132/68 (89) 95 Intake and Output 09/11/19 09/12/19 19:00 07:00 Intake Total 400 ml Balance 400 ml Other 400 ml # Voids 2 Laboratory Tests 09/12/19 05:00: White Blood Count 5.1, Red Blood Count 3.56L, Hemoglobin 10.6L, Hematocrit 30.7L , Mean Corpuscular Volume 86, Mean Corpuscular Hemoglobin 29.7, Mean Corpuscular Hemoglobin Concent 34.4, Red Cell Distribution Width 13.1, Platelet Count 196, Mean Platelet Volume 6.5, Neutrophils (%) (Auto) , Lymphocytes (%) ( Auto) , Monocytes (%) (Auto) , Eosinophils (%) (Auto) , Basophils (%) (Auto) , Differential Total Cells Counted 100, Neutrophils % (Manual) 75, Lymphocytes % ( Manual) 21, Monocytes % (Manual) 3, Eosinophils % (Manual) 1, Basophils % ( Manual) 0, Band Neutrophils 0, Platelet Estimate Adequate, Platelet Morphology Normal, Red Blood Cell Morphology Normal, Sodium Level 152H, Potassium Level 4.6 , Chloride Level 116H, Carbon Dioxide Level 24, Anion Gap 12, Blood Urea Nitrogen 33H, Creatinine 1.9H, Estimat Glomerular Filtration Rate 33.9, Glucose Level 82, Uric Acid 6.5, Calcium Level 10.2H, Phosphorus Level 2.5, Magnesium Level 2.3, Total Bilirubin 0.4, Aspartate Amino Transf (AST/SGOT) 42H, Alanine Aminotransferase (ALT/SGPT) 33, Alkaline Phosphatase 109, Lactate Dehydrogenase 328H, C-Reactive Protein, Quantitative 4.6H, Total Protein 6.8, Albumin 2.7L, Globulin 4.1, Albumin/Globulin Ratio 0.7L Height (Feet): 5 Height (Inches): 6.00 Weight (Pounds): 107 General Appearance: no apparent distress Cardiovascular: normal rate Respiratory/Chest: decreased breath sounds Abdomen: soft Objective No change Juan Jade MD Sep 12, 2019 11:56
[2019-09-12 12:00] VITALS: BP 97/46
[2019-09-12] MEDS: Tamsulosin 0.4mg cap ORAL SCH ×2 (12:08→17:35)
--- NOTE | 2019-09-12 12:09 | Urology Progress Note ---
Assessment/Plan Status: stable, progressing, not improved Assessment/Plan: 1. Gross hematuria hx, presumably secondary to Doshi trauma, resolved. 2. BPH. 3. Urinary retention. 4. Neurogenic bladder. 5. Pyuria?UTI/colonized. 6. Proteinuria. 7. Renal insufficiency, which appears to be acute on chronic. 8. Rule out urethral stricture. monitor clinically doshi out, voiding/incontinent on proscar and flomax s/p abx restraints PRN cysto at some point monitor PVR and reinsert doshi PRN renal imaging? COVID (+) Eliquis resumed monitor for bleeding Subjective Allergies: Coded Allergies: No Known Allergies (Unverified , 06/05/19) Subjective all noted, confused, doshi out, incontinent, condom cath Objective Last 24 Hour Vital Signs Date Time Temp Pulse Resp B/P (MAP) Pulse Ox O2 Delivery O2 Flow Rate FiO2 09/12/19 09:00 Room Air 09/12/19 08:57 164/71 09/12/19 08:57 164/71 09/12/19 08:57 67 164/71 09/12/19 08:00 97.8 67 17 164/71 (102) 98 09/12/19 04:00 97.4 76 22 158/69 (98) 99 09/12/19 00:00 97.8 74 22 163/71 (101) 98 09/11/19 21:31 171/60 09/11/19 21:00 Room Air 09/11/19 20:00 97.2 65 22 171/60 (97) 98 09/11/19 12:42 132/68 Intake and Output 09/11/19 09/12/19 19:00 07:00 Intake Total 400 ml Balance 400 ml Other 400 ml # Voids 2 Microbiology Date/Time Source Procedure Growth Status 09/07/19 19:00 Nasopharynx Coronavirus COVID-19 PCR ([facility]) - Final Complete 08/28/19 12:31 Indwelling Cath Urine Culture - Final Pseudomonas Aeruginosa Raoultella [place] Complete 08/06/19 04:45 Rectum VRE Culture - Final NO VANCOMYCIN RESISTANT ENTEROCOCCUS ... Complete Current Medications Medications (Trade) Dose Ordered Sig/Kristine Route PRN Reason Start Time Stop Time Status Last Admin Dose Admin Acetaminophen (Tylenol) 650 mg Q4H PRN ORAL Fever 09/09/19 22:30 10/09/19 22:29 09/09/19 22:42 Amlodipine Besylate (Norvasc) 10 mg DAILY ORAL 09/10/19 09:00 09/28/19 08:59 09/12/19 08:57 Apixaban (Eliquis) 2.5 mg BID@0900,2100 ORAL 09/09/19 21:00 12/06/19 08:59 09/12/19 08:57 Ascorbic Acid (Vitamin C) 250 mg DAILY ORAL 09/10/19 09:00 10/10/19 08:59 09/12/19 08:57 Calcitonin [place] (Miacalcin) 1 sprays DAILY NASAL 09/12/19 13:00 12/11/19 12:59 Dextrose 1,000 ml @ 75 mls/hr [id number] IV 09/12/19 09:15 10/12/19 09:14 09/12/19 09:15 Escitalopram Oxalate (Lexapro) 5 mg DAILY ORAL 09/10/19 09:00 10/09/19 08:59 09/12/19 08:57 Famotidine (Pepcid) 20 mg DAILY ORAL 09/10/19 09:00 12/09/19 08:59 09/12/19 08:57 Finasteride (Proscar) 5 mg DAILY ORAL 09/10/19 09:00 11/05/19 15:44 09/12/19 08:57 Hydralazine HCl (Apresoline) 50 mg Q8HR ORAL 09/12/19 14:00 12/05/19 08:59 Isosorbide Mononitrate (Imdur) 30 mg DAILY ORAL 09/10/19 09:00 10/10/19 08:59 09/12/19 08:57 Lorazepam (Ativan 2mg/ml 1ml) 1 mg Q4H PRN IV For Anxiety 09/09/19 22:30 09/16/19 22:29 09/12/19 11:18 Magnesium Hydroxide (Mom) 30 ml TIDPRN PRN ORAL Constipation 09/09/19 13:00 10/09/19 12:59 Multivitamins (Multivitamins) 1 tab DAILY ORAL 09/10/19 09:00 10/10/19 08:59 09/12/19 08:57 Tamsulosin HCl (Flomax) 0.4 mg BEDTIME ORAL 09/09/19 21:00 09/12/19 18:00 09/11/19 21:31 Tamsulosin HCl (Flomax) 0.4 mg BID ORAL 09/12/19 12:00 10/06/19 20:59 09/12/19 12:08 Trazodone HCl (Desyrel) 25 mg BEDTIME ORAL 09/09/19 21:00 10/09/19 20:59 09/11/19 21:31 Valproic Acid (Depakene) 250 mg EVERY 12 HOURS NG 09/09/19 21:00 10/22/19 20:59 09/12/19 08:58 Laboratory Tests 09/12/19 05:00: White Blood Count 5.1, Red Blood Count 3.56L, Hemoglobin 10.6L, Hematocrit 30.7L , Mean Corpuscular Volume 86, Mean Corpuscular Hemoglobin 29.7, Mean Corpuscular Hemoglobin Concent 34.4, Red Cell Distribution Width 13.1, Platelet Count 196, Mean Platelet Volume 6.5, Neutrophils (%) (Auto) , Lymphocytes (%) ( Auto) , Monocytes (%) (Auto) , Eosinophils (%) (Auto) , Basophils (%) (Auto) , Differential Total Cells Counted 100, Neutrophils % (Manual) 75, Lymphocytes % ( Manual) 21, Monocytes % (Manual) 3, Eosinophils % (Manual) 1, Basophils % ( Manual) 0, Band Neutrophils 0, Platelet Estimate Adequate, Platelet Morphology Normal, Red Blood Cell Morphology Normal, Sodium Level 152H, Potassium Level 4.6 , Chloride Level 116H, Carbon Dioxide Level 24, Anion Gap 12, Blood Urea Nitrogen 33H, Creatinine 1.9H, Estimat Glomerular Filtration Rate 33.9, Glucose Level 82, Uric Acid 6.5, Calcium Level 10.2H, Phosphorus Level 2.5, Magnesium Level 2.3, Total Bilirubin 0.4, Aspartate Amino Transf (AST/SGOT) 42H, Alanine Aminotransferase (ALT/SGPT) 33, Alkaline Phosphatase 109, Lactate Dehydrogenase 328H, C-Reactive Protein, Quantitative 4.6H, Total Protein 6.8, Albumin 2.7L, Globulin 4.1, Albumin/Globulin Ratio 0.7L Height (Feet): 5 Height (Inches): 6.00 Weight (Pounds): 107 Objective exam stable abdomen soft urine grossly yellow Miki Calzada MD Sep 12, 2019 12:09
[2019-09-12] MEDS ORDERED: HydrALAZINE 25mg tab ORAL SCH (14:00)
--- NOTE | 2019-09-12 15:16 | NUR ---
*-*INSURANCE*-* UPDATED CLINICALS AND REVIEWS HAVE BEEN FACXED TO: DEE ARAGON:GLENIS P: [phone] F: [phone] REF# [id number]
[2019-09-12 16:00] VITALS: BP 98/47
--- NOTE | 2019-09-12 16:39 | Surgery Progress Note ---
Surgery Progress Note Subjective Symptoms: improved, tolerating diet, voiding well, passing flatus Objective Last 24 Hour Vital Signs Date Time Temp Pulse Resp B/P (MAP) Pulse Ox O2 Delivery O2 Flow Rate FiO2 09/12/19 16:00 98.3 64 18 98/47 (64) 99 09/12/19 14:00 97/46 09/12/19 12:00 98.2 69 17 97/46 (63) 98 09/12/19 09:00 Room Air 09/12/19 08:57 164/71 09/12/19 08:57 164/71 09/12/19 08:57 67 164/71 09/12/19 08:00 97.8 67 17 164/71 (102) 98 09/12/19 04:00 97.4 76 22 158/69 (98) 99 09/12/19 00:00 97.8 74 22 163/71 (101) 98 09/11/19 21:31 171/60 09/11/19 21:00 Room Air 09/11/19 20:00 97.2 65 22 171/60 (97) 98 I&O Intake and Output 09/11/19 09/12/19 19:00 07:00 Intake Total 400 ml Balance 400 ml Other 400 ml # Voids 2 Dressing: dry Wound: clean Cardiovascular: RSR Respiratory: clear Abdomen: soft, non-tender, present bowel sounds Extremities: no tenderness, no cyanosis Laboratory Tests Test 09/12/19 05:00 White Blood Count 5.1 K/UL (4.8-10.8) Red Blood Count 3.56 M/UL (4.70-6.10) L Hemoglobin 10.6 G/DL (14.2-18.0) L Hematocrit 30.7 % (42.0-52.0) L Mean Corpuscular Volume 86 FL (80-99) Mean Corpuscular Hemoglobin 29.7 PG (27.0-31.0) Mean Corpuscular Hemoglobin Concent 34.4 G/DL (32.0-36.0) Red Cell Distribution Width 13.1 % (11.6-14.8) Platelet Count 196 K/UL (150-450) Mean Platelet Volume 6.5 FL (6.5-10.1) Neutrophils (%) (Auto) % (45.0-75.0) Lymphocytes (%) (Auto) % (20.0-45.0) Monocytes (%) (Auto) % (1.0-10.0) Eosinophils (%) (Auto) % (0.0-3.0) Basophils (%) (Auto) % (0.0-2.0) Differential Total Cells Counted 100 Neutrophils % (Manual) 75 % (45-75) Lymphocytes % (Manual) 21 % (20-45) Monocytes % (Manual) 3 % (1-10) Eosinophils % (Manual) 1 % (0-3) Basophils % (Manual) 0 % (0-2) Band Neutrophils 0 % (0-8) Platelet Estimate Adequate Platelet Morphology Normal Red Blood Cell Morphology Normal Sodium Level 152 MMOL/L (136-145) H Potassium Level 4.6 MMOL/L (3.5-5.1) Chloride Level 116 MMOL/L (98-107) H Carbon Dioxide Level 24 MMOL/L (21-32) Anion Gap 12 mmol/L (5-15) Blood Urea Nitrogen 33 mg/dL (7-18) H Creatinine 1.9 MG/DL (0.55-1.30) H Estimat Glomerular Filtration Rate 33.9 mL/min (>60) Glucose Level 82 MG/DL (74-106) Uric Acid 6.5 MG/DL (2.6-7.2) Calcium Level 10.2 MG/DL (8.5-10.1) H Phosphorus Level 2.5 MG/DL (2.5-4.9) Magnesium Level 2.3 MG/DL (1.8-2.4) Total Bilirubin 0.4 MG/DL (0.2-1.0) Aspartate Amino Transf (AST/SGOT) 42 U/L (15-37) H Alanine Aminotransferase (ALT/SGPT) 33 U/L (12-78) Alkaline Phosphatase 109 U/L (46-116) Lactate Dehydrogenase 328 U/L (81-234) H C-Reactive Protein, Quantitative 4.6 mg/dL (0.00-0.90) H Total Protein 6.8 G/DL (6.4-8.2) Albumin 2.7 G/DL (3.4-5.0) L Globulin 4.1 g/dL Albumin/Globulin Ratio 0.7 (1.0-2.7) L Plan Problems: (1) Dehydration (2) Anemia (3) UTI (urinary tract infection) (4) Falls frequently (5) Renal failure (ARF), acute on chronic (6) Encephalopathy due to metabolic factor or toxin (7) CHF (congestive heart failure) (8) Gross hematuria (9) Deep tissue injury Assessment & Plan: Pt presented on admission with multiple pressure injuries which were resolving. 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 Base of injury is purple with maroon borders . Surrounding non-blanching erythema to R and Gluteal cheeks. Scrotum is erythematous. R and L heels are boggy but each area blanchable. Tx.Plan: Apply Moisture Barrier Paste to Sacrum. Cover with Optifoam drsg. Change every 3 days and prn. Apply Moisture Barrier Paste to bilat groin and scrotum with each incontinence care. Apply Cavilon Skin Barrier to both heels. Cover each heel with Optifoam drsg. Change every 7 days and prn. Reposition at least every 2hours or as tolerated. Off-load heels with pillow. APM/MEI Mattress overlay. (10) Malnutrition Assessment & Plan: DAILY ESTIMATED NEEDS: Needs based on Wound, 66.8kg 28-33 kcals/kg 1506-4667 total kcals 1.25-1.5 g protein/kg 84-100 g total protein 25-30 mL/kg 1277-0984 total fluid mLs NUTRITION DIAGNOSIS: Swallowing difficulty r/t dysphagia and ams as evidenced by s/p TOP TILE DECORATOR eval, poor cognition, pt on liquify puree texture diet w/ HTL, now with improved intake. CURRENT DIET: Liquify puree HTL Regular PO DIET RECOMMENDATIONS: Maintain Regular diet, texture per TOP TILE DECORATOR ADDITIONAL RECOMMENDATIONS: 1) Ensure Enlive TID w/ meals (350kcal/20g prot per bottle) 2) Maintain calibrated bed scale wts EMR wt: 160# vs Bed scale wt: 147#-> bed now reads 109.8# 3) Consider D5 IVF (vs 1/2 NS running currently)- Na elevated to prevent hypoglycemia given poor/variable PO 4) Wound care: MVI 1 tab QD + Vit C 250mg QD+ Jacob BID 5) Monitor lytes, replete as needed (11) Severe protein-calorie malnutrition Sai Aaron Sep 12, 2019 16:39
--- NOTE | 2019-09-12 19:15 | NUR ---
HAND-OFF: Report given to LUIS FERNANDO Buck.
[2019-09-12 20:00] VITALS: BP 160/59
--- NOTE | 2019-09-12 20:00 | NUR ---
NURSE NOTES: Patient received in bed, perpendicular on the bed. Patient is repositioned and linens changed. Bed is locked in low posiotion, bed alarm on sensitive scale. Patient appears restless and anxious, rolling around the bed and yelling, will medicate for restlessness. Will monitor and continue plan of care.
[2019-09-12] MEDS: TraZODone HCl 25 mg tablet ORAL SCH (20:43)
[2019-09-12] MEDS: HydrALAZINE 50mg tab ORAL SCH (21:28)
[2019-09-13] VITALS: BP 141/60
--- NOTE | 2019-09-13 00:30 | Progress Note ---
DATE: 09/12/2019 SUBJECTIVE: The patient is cooperative with care overall but still has some episodes of agitation, remains COVID-19 PCR positive. He has no fever, chills, cough but oral intake remains poor. Monitor remains atrial fibrillation, rate controlled. OBJECTIVE: VITAL SIGNS: Blood pressure 164/71, heart rate 67, respiratory rate 17, afebrile. LUNGS: No wheezing, good breath sounds. CARDIAC: Irregularly irregular rhythm. A 1/6 systolic murmur at apex. ABDOMEN: Soft. EXTREMITIES: No edema. LABORATORY AND DIAGNOSTIC DATA: White count 5.1, hemoglobin 10.6. Sodium 152, potassium 4.6, chloride 116, BUN 33, creatinine 1.9, bicarb 24, calcium 10.2. Albumin 2.7. IMPRESSION: 1. Dehydration. 2. Hypernatremia. 3. Hyperchloremia. 4. Acute on chronic renal failure. 5. Hypercalcemia. 6. Moderate protein-calorie malnutrition. 7. Metabolic acidosis. 8. COVID-19 pneumonia. 9. Paroxysmal atrial fibrillation. 10. 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 11. Hypertensive heart disease. 12. Chronic diastolic congestive heart failure. PLAN: 1. Check ionized calcium. 2. Continue cardiac monitoring. 3. Hypotonic IV fluids to be increased. 4. Continue cardioembolic prophylaxis with apixaban. 5. May need to advance antihypertensive regimen. Gamaliel Salas M.D. DR: Lexii JOB#: [id number] CC:
--- NOTE | 2019-09-13 01:29 | Progress Note ---
DATE: 09/12/2019 HISTORY OF PRESENT ILLNESS: The patient is in bed. He has episodes of anxiety, on Depakote. Dr. Echavarria has ordered Lexapro and Ativan over the weekend as well as trazodone. The patient is more manageable today. MENTAL STATUS EXAMINATION: Alert and oriented to times and self. Mood is neutral. Affect is flat. Thought process is concrete. Thought content, no suicidal, homicidal ideation. Cognition is impaired. Insight and judgment, fair. ASSESSMENT: 1. Dementia. 2. Acute encephalopathy, improving. PLAN: We will discuss the medication with Dr. Echavarria as now he is on multiple psychotropic medications. Loco Luu M.D. DR: Ingrid JOB#: [id number] CC:
[2019-09-13 04:00] VITALS: BP 151/61
[2019-09-13] MEDS: LORazepam Inj 2mg/ml 1ml IV PRN (04:26)
[2019-09-13] MEDS: HydrALAZINE 50mg tab ORAL SCH ×3 (04:37→21:10)
[2019-09-13 06:40] LABS: BASOPHILS % (AUTO) 1.2 % (0.0-2.0); EOSINOPHILS % (AUTO) 1.8 % (0.0-3.0); HEMATOCRIT 27.3 % (42.0-52.0); HEMOGLOBIN 9.1 G/DL (14.2-18.0); LYMPHOCYTES % (AUTO) 13.5 % (20.0-45.0); MEAN CORPUSCULAR VOLUME 87 FL (80-99); MONOCYTES % (AUTO) 6.4 % (1.0-10.0); NEUTROPHILS % (AUTO) 77.2 % (45.0-75.0); PLATELET COUNT 200 K/UL (150-450); RED BLOOD COUNT 3.13 M/UL (4.70-6.10); WHITE BLOOD COUNT 6.3 K/UL (4.8-10.8)
--- NOTE | 2019-09-13 06:58 | NUR ---
NURSE NOTES: Patient cleaned and dressing changed on sacrum.
[2019-09-13 07:26] LABS: ANION GAP 9 mmol/L (5-15); BLOOD UREA NITROGEN 28 mg/dL (7-18); CALCIUM 9.3 MG/DL (8.5-10.1); CARBON DIOXIDE 26 MMOL/L (21-32); CHLORIDE 114 MMOL/L (98-107); CREATININE 1.8 MG/DL (0.55-1.30); POTASSIUM 3.7 MMOL/L (3.5-5.1); SODIUM 149 MMOL/L (136-145)
[2019-09-13 07:27] LABS: ALANINE AMINOTRANSFERASE 34 U/L (12-78); ALBUMIN 2.4 G/DL (3.4-5.0); ALBUMIN/GLOBULIN RATIO 0.6 (1.0-2.7); ALKALINE PHOSPHATASE 95 U/L (46-116); ANION GAP 8 mmol/L (5-15); ASPARTATE AMINO TRANSFERASE 23 U/L (15-37); BILIRUBIN,TOTAL 0.4 MG/DL (0.2-1.0); BLOOD UREA NITROGEN 28 mg/dL (7-18); CALCIUM 9.1 MG/DL (8.5-10.1); CARBON DIOXIDE 27 MMOL/L (21-32); CHLORIDE 114 MMOL/L (98-107); CREATININE 1.8 MG/DL (0.55-1.30); PHOSPHORUS 2.4 MG/DL (2.5-4.9); POTASSIUM 3.6 MMOL/L (3.5-5.1); SODIUM 149 MMOL/L (136-145)
--- NOTE | 2019-09-13 07:35 | NUR ---
HAND-OFF: Report given to Contreras GOULD. Endorsed high fall risk. Patient asleep and calm at this time.
--- NOTE | 2019-09-13 07:41 | NUR ---
NURSE NOTES: patient is in the bed asleep. respiration even and non-labored. skin is warm and dry to touch. No facial grimace for pain and discomfort. bed in locked position for fall precaution. call light is placed within reach, will continue to monitor.
[2019-09-13 08:00] VITALS: BP 136/49
[2019-09-13] MEDS: Eliquis 2.5mg tablet ORAL SCH ×2 (09:00→21:09)
[2019-09-13] MEDS: Valproic Acid 250mg/5ml Liquid NG SCH ×2 (09:00→21:09)
[2019-09-13] MEDS: Tamsulosin 0.4mg cap ORAL SCH ×2 (09:00→18:00)
[2019-09-13] MEDS: Ascorbic Acid 500mg tab ORAL SCH (09:00)
[2019-09-13] MEDS: Imdur 30mg tab ORAL SCH (09:00)
--- NOTE | 2019-09-13 10:06 | General Progress Note ---
Assessment/Plan Problem List: (1) CHF (congestive heart failure) ICD Codes: I50.9 - Heart failure, unspecified SNOMED: 49878053 (2) Renal failure (ARF), acute on chronic ICD Codes: N17.9 - Acute kidney failure, unspecified; N18.9 - Chronic kidney disease, unspecified SNOMED: 399315875 (3) Encephalopathy due to metabolic factor or toxin SNOMED: 688224698 (4) Gross hematuria ICD Codes: R31.0 - Gross hematuria SNOMED: 277148724 (5) Falls frequently ICD Codes: R29.6 - Repeated falls SNOMED: 808304251 (6) Dehydration ICD Codes: E86.0 - Dehydration SNOMED: 41003723 (7) UTI (urinary tract infection) ICD Codes: N39.0 - Urinary tract infection, site not specified SNOMED: 79691206 (8) Anemia ICD Codes: D64.9 - Anemia, unspecified SNOMED: 552051971 Status: stable, progressing, not improved Assessment/Plan: o2 as needed. currently stable on room air. fall precautions. monitor cxr Encourage pos. monitor labs. hypotonic ivf resumed due to increased Na. will repeat labs tomorrow Anxiolytics as needed. Continue blood pressure treatment. DVT and stress ulcer prophylaxis. Discharge planning to nursing home facility on hold for now. will need 2 neg covid tests. Subjective ROS Limited/Unobtainable: No Constitutional: Reports: malaise, weakness HEENT: Reports: no symptoms Cardiovascular: Reports: no symptoms Respiratory: Reports: cough, shortness of breath Gastrointestinal/Abdominal: Reports: no symptoms Genitourinary: Reports: no symptoms Neurologic/Psychiatric: Reports: anxiety, emotional problems, pre-existing deficit Endocrine: Reports: no symptoms Hematologic/Lymphatic: Reports: no symptoms Allergies: Coded Allergies: No Known Allergies (Unverified , 06/05/19) All Systems: reviewed and negative except above Subjective No overnight events. Patient remains intermittently agitated. mostly cooperative with care. Continues to get out of bed unassisted. did not require any anxiolytics last night. COVID-19 PCR on September 06 is still positive. Patient remains asymptomatic without fevers chills or cough. Na trending up. poor fluid intake. Objective Last 24 Hour Vital Signs Date Time Temp Pulse Resp B/P (MAP) Pulse Ox O2 Delivery O2 Flow Rate FiO2 09/13/19 08:00 98.0 64 16 136/49 (78) 97 09/13/19 04:00 97.8 62 18 151/61 (91) 98 09/13/19 00:00 97.6 66 18 141/60 (87) 98 09/12/19 21:28 160/59 09/12/19 21:00 Room Air 09/12/19 20:00 97.9 71 18 160/59 (92) 100 09/12/19 16:00 98.3 64 18 98/47 (64) 99 09/12/19 14:00 97/46 09/12/19 12:00 98.2 69 17 97/46 (63) 98 Intake and Output 09/12/19 09/13/19 19:00 07:00 Intake Total 675 ml 1200 ml Balance 675 ml 1200 ml Intake Oral 100 ml IV Total 675 ml 1100 ml # Voids 4 Laboratory Tests 09/13/19 03:40: White Blood Count 6.3, Red Blood Count 3.13L, Hemoglobin 9.1L, Hematocrit 27.3L , Mean Corpuscular Volume 87, Mean Corpuscular Hemoglobin 29.1, Mean Corpuscular Hemoglobin Concent 33.3, Red Cell Distribution Width 13.0, Platelet Count 200, Mean Platelet Volume 5.0L, Neutrophils (%) (Auto) 77.2H, Lymphocytes (%) (Auto) 13.5L, Monocytes (%) (Auto) 6.4, Eosinophils (%) (Auto) 1.8, Basophils (%) (Auto) 1.2, Sodium Level 149H, Potassium Level 3.7, Chloride Level 114H, Carbon Dioxide Level 26, Anion Gap 9, Blood Urea Nitrogen 28H, Creatinine 1.8H, Estimat Glomerular Filtration Rate 36.1, Glucose Level 113H, Uric Acid 6.2, Calcium Level 9.3, Ionized Calcium (Measured) 1.26, Phosphorus Level 2.4L, Magnesium Level 2.1, Total Bilirubin 0.4, Aspartate Amino Transf ( AST/SGOT) 23, Alanine Aminotransferase (ALT/SGPT) 34, Alkaline Phosphatase 95, C -Reactive Protein, Quantitative 2.2H, Total Protein 6.1L, Albumin 2.4L, Globulin 3.7, Albumin/Globulin Ratio 0.6L Height (Feet): 5 Height (Inches): 6.00 Weight (Pounds): 107 Objective General Appearance: WD/WN, alert, confused Neck: supple Cardiovascular: regular rhythm Respiratory/Chest: rhonchi - bilaterally Abdomen: normal bowel sounds, non tender, soft, no organomegaly, no mass Edema: no edema noted Arm (L), no edema noted Arm (R), no edema noted Leg (L), no edema noted Leg (R), no edema noted Pedal (L), no edema noted Pedal (R), no edema noted Generalized Neurologic: body technician II-XII grossly normal, alert, responsive Iggy Echavarria MD Sep 13, 2019 10:06
--- NOTE | 2019-09-13 11:01 | Infectious Diseases Prog Note ---
Assessment/Plan Assessment/Plan antibiotics : none A 1. COVID 19 pneumonia test + on 4.14.20, 4.16.20, 4.22.20 2. Pseudomonas and Raoultella urinary tract infection s/p rx 3. Renal failure. 4. hypertension 5. cardiomyopathy P 1. observe off antibiotics 2. will follow up cultures 3. Continue isolation Subjective ROS Limited/Unobtainable: Yes Allergies: Coded Allergies: No Known Allergies (Unverified , 06/05/19) Objective Vital Signs Last 24 Hour Vital Signs Date Time Temp Pulse Resp B/P (MAP) Pulse Ox O2 Delivery O2 Flow Rate FiO2 09/13/19 10:44 136/49 09/13/19 09:00 136/49 09/13/19 09:00 64 136/49 09/13/19 08:00 98.0 64 16 136/49 (78) 97 09/13/19 04:00 97.8 62 18 151/61 (91) 98 09/13/19 00:00 97.6 66 18 141/60 (87) 98 09/12/19 21:28 160/59 09/12/19 21:00 Room Air 09/12/19 20:00 97.9 71 18 160/59 (92) 100 09/12/19 16:00 98.3 64 18 98/47 (64) 99 09/12/19 14:00 97/46 09/12/19 12:00 98.2 69 17 97/46 (63) 98 Height (Feet): 5 Height (Inches): 6.00 Weight (Pounds): 107 Laboratory Tests Test 09/13/19 03:40 White Blood Count 6.3 K/UL (4.8-10.8) Red Blood Count 3.13 M/UL (4.70-6.10) L Hemoglobin 9.1 G/DL (14.2-18.0) L Hematocrit 27.3 % (42.0-52.0) L Mean Corpuscular Volume 87 FL (80-99) Mean Corpuscular Hemoglobin 29.1 PG (27.0-31.0) Mean Corpuscular Hemoglobin Concent 33.3 G/DL (32.0-36.0) Red Cell Distribution Width 13.0 % (11.6-14.8) Platelet Count 200 K/UL (150-450) Mean Platelet Volume 5.0 FL (6.5-10.1) L Neutrophils (%) (Auto) 77.2 % (45.0-75.0) H Lymphocytes (%) (Auto) 13.5 % (20.0-45.0) L Monocytes (%) (Auto) 6.4 % (1.0-10.0) Eosinophils (%) (Auto) 1.8 % (0.0-3.0) Basophils (%) (Auto) 1.2 % (0.0-2.0) Sodium Level 149 MMOL/L (136-145) H Potassium Level 3.7 MMOL/L (3.5-5.1) Chloride Level 114 MMOL/L (98-107) H Carbon Dioxide Level 26 MMOL/L (21-32) Anion Gap 9 mmol/L (5-15) Blood Urea Nitrogen 28 mg/dL (7-18) H Creatinine 1.8 MG/DL (0.55-1.30) H Estimat Glomerular Filtration Rate 36.1 mL/min (>60) Glucose Level 113 MG/DL (74-106) H Uric Acid 6.2 MG/DL (2.6-7.2) Calcium Level 9.3 MG/DL (8.5-10.1) Ionized Calcium (Measured) 1.26 mmol/L (1.10-1.35) Phosphorus Level 2.4 MG/DL (2.5-4.9) L Magnesium Level 2.1 MG/DL (1.8-2.4) Total Bilirubin 0.4 MG/DL (0.2-1.0) Aspartate Amino Transf (AST/SGOT) 23 U/L (15-37) Alanine Aminotransferase (ALT/SGPT) 34 U/L (12-78) Alkaline Phosphatase 95 U/L (46-116) C-Reactive Protein, Quantitative 2.2 mg/dL (0.00-0.90) H Total Protein 6.1 G/DL (6.4-8.2) L Albumin 2.4 G/DL (3.4-5.0) L Globulin 3.7 g/dL Albumin/Globulin Ratio 0.6 (1.0-2.7) L Current Medications Medications (Trade) Dose Ordered Sig/Kristine Route PRN Reason Start Time Stop Time Status Last Admin Dose Admin Acetaminophen (Tylenol) 650 mg Q4H PRN ORAL Fever 09/09/19 22:30 10/09/19 22:29 09/09/19 22:42 Amlodipine Besylate (Norvasc) 10 mg DAILY ORAL 09/10/19 09:00 09/28/19 08:59 09/13/19 09:00 Apixaban (Eliquis) 2.5 mg BID@0900,2100 ORAL 09/09/19 21:00 12/06/19 08:59 09/13/19 09:00 Ascorbic Acid (Vitamin C) 250 mg DAILY ORAL 09/10/19 09:00 10/10/19 08:59 09/13/19 09:00 Calcitonin [place] (Miacalcin) 1 sprays DAILY NASAL 09/12/19 13:00 12/11/19 12:59 09/13/19 09:00 Dextrose 1,000 ml @ 100 mls/hr Q10H IV 09/12/19 21:31 10/12/19 21:30 09/13/19 07:31 Escitalopram Oxalate (Lexapro) 5 mg DAILY ORAL 09/10/19 09:00 10/09/19 08:59 09/13/19 09:00 Famotidine (Pepcid) 20 mg DAILY ORAL 09/10/19 09:00 12/09/19 08:59 09/13/19 09:00 Finasteride (Proscar) 5 mg DAILY ORAL 09/10/19 09:00 11/05/19 15:44 09/13/19 09:00 Hydralazine HCl (Apresoline) 50 mg Q8HR ORAL 09/12/19 22:00 12/11/19 21:59 09/13/19 10:44 Isosorbide Mononitrate (Imdur) 30 mg DAILY ORAL 09/10/19 09:00 10/10/19 08:59 09/13/19 09:00 Lorazepam (Ativan 2mg/ml 1ml) 1 mg Q4H PRN IV For Anxiety 09/09/19 22:30 09/16/19 22:29 09/13/19 04:26 Magnesium Hydroxide (Mom) 30 ml TIDPRN PRN ORAL Constipation 09/09/19 13:00 10/09/19 12:59 Multivitamins (Multivitamins) 1 tab DAILY ORAL 09/10/19 09:00 10/10/19 08:59 09/13/19 09:00 Tamsulosin HCl (Flomax) 0.4 mg BID ORAL 09/12/19 12:00 10/06/19 20:59 09/13/19 09:00 Trazodone HCl (Desyrel) 25 mg BEDTIME ORAL 09/09/19 21:00 10/09/19 20:59 09/12/19 20:43 Valproic Acid (Depakene) 250 mg EVERY 12 HOURS NG 09/09/19 21:00 10/22/19 20:59 09/13/19 09:00 Gonzalez Stephens MD Sep 13, 2019 11:01
--- NOTE | 2019-09-13 11:30 | NUR ---
CASE MANAGEMENT:NOTE CM WILL ATTEMPT TO OBTAIN A BED AT [facility] [place] T:[phone] PATIENT HAS BEEN WITHOUT FEVER FOR THREE DAYS STILL TESTING POSITIVE Addendum: 09/13/19 at 1657 by MARCUS OBRIEN LVN UNABLE TO ACCEPT UNTIL COVID-19 NEGATIVE
--- NOTE | 2019-09-13 11:41 | Pulmonology Progress Note ---
Assessment/Plan Assessment/Plan IMPRESSION: 1. Pleural effusions, small bilateral. 2. Atelectasis. 3. Pulmonary edema, questionable. 4. Hypertension. 5. Hyperlipidemia. 6. positive COVID 19 7. 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 No new recommendations Kimani Hahn M.D. Subjective ROS Limited/Unobtainable: Yes Interval Events: None new reported Constitutional: Denies: fever HEENT: Repors: no symptoms Respiratory: Reports: no symptoms Cardiovascular: Reports: no symptoms Gastrointestinal/Abdominal: Denies: nausea, vomiting, diarrhea Genitourinary: Reports: no symptoms Neurologic: Reports: no symptoms Musculoskeletal: Denies: pain Allergies: Coded Allergies: No Known Allergies (Unverified , 06/05/19) All Systems: reviewed and negative except above Objective Last 24 Hour Vital Signs Date Time Temp Pulse Resp B/P (MAP) Pulse Ox O2 Delivery O2 Flow Rate FiO2 09/13/19 10:44 136/49 09/13/19 09:00 136/49 09/13/19 09:00 64 136/49 09/13/19 08:00 98.0 64 16 136/49 (78) 97 09/13/19 04:00 97.8 62 18 151/61 (91) 98 09/13/19 00:00 97.6 66 18 141/60 (87) 98 09/12/19 21:28 160/59 09/12/19 21:00 Room Air 09/12/19 20:00 97.9 71 18 160/59 (92) 100 09/12/19 16:00 98.3 64 18 98/47 (64) 99 09/12/19 14:00 97/46 09/12/19 12:00 98.2 69 17 97/46 (63) 98 Intake and Output 09/12/19 09/13/19 19:00 07:00 Intake Total 675 ml 1200 ml Balance 675 ml 1200 ml Intake Oral 100 ml IV Total 675 ml 1100 ml # Voids 4 General Appearance: no acute distress, cachetic HEENT: mucous membranes moist Respiratory/Chest: chest wall non-tender, lungs clear Cardiovascular: normal peripheral pulses Abdomen: soft, non tender Extremities: no edema Neurologic/Psychiatric: disoriented Laboratory Tests 09/13/19 03:40: White Blood Count 6.3, Red Blood Count 3.13L, Hemoglobin 9.1L, Hematocrit 27.3L , Mean Corpuscular Volume 87, Mean Corpuscular Hemoglobin 29.1, Mean Corpuscular Hemoglobin Concent 33.3, Red Cell Distribution Width 13.0, Platelet Count 200, Mean Platelet Volume 5.0L, Neutrophils (%) (Auto) 77.2H, Lymphocytes (%) (Auto) 13.5L, Monocytes (%) (Auto) 6.4, Eosinophils (%) (Auto) 1.8, Basophils (%) (Auto) 1.2, Sodium Level 149H, Potassium Level 3.7, Chloride Level 114H, Carbon Dioxide Level 26, Anion Gap 9, Blood Urea Nitrogen 28H, Creatinine 1.8H, Estimat Glomerular Filtration Rate 36.1, Glucose Level 113H, Uric Acid 6.2, Calcium Level 9.3, Ionized Calcium (Measured) 1.26, Phosphorus Level 2.4L, Magnesium Level 2.1, Total Bilirubin 0.4, Aspartate Amino Transf ( AST/SGOT) 23, Alanine Aminotransferase (ALT/SGPT) 34, Alkaline Phosphatase 95, C -Reactive Protein, Quantitative 2.2H, Total Protein 6.1L, Albumin 2.4L, Globulin 3.7, Albumin/Globulin Ratio 0.6L Current Medications Medications (Trade) Dose Ordered Sig/Kristine Route PRN Reason Start Time Stop Time Status Last Admin Dose Admin Acetaminophen (Tylenol) 650 mg Q4H PRN ORAL Fever 09/09/19 22:30 10/09/19 22:29 09/09/19 22:42 Amlodipine Besylate (Norvasc) 10 mg DAILY ORAL 09/10/19 09:00 09/28/19 08:59 09/13/19 09:00 Apixaban (Eliquis) 2.5 mg BID@0900,2100 ORAL 09/09/19 21:00 12/06/19 08:59 09/13/19 09:00 Ascorbic Acid (Vitamin C) 250 mg DAILY ORAL 09/10/19 09:00 10/10/19 08:59 09/13/19 09:00 Calcitonin [place] (Miacalcin) 1 sprays DAILY NASAL 09/12/19 13:00 12/11/19 12:59 09/13/19 09:00 Dextrose 1,000 ml @ 100 mls/hr Q10H IV 09/12/19 21:31 10/12/19 21:30 09/13/19 07:31 Escitalopram Oxalate (Lexapro) 5 mg DAILY ORAL 09/10/19 09:00 10/09/19 08:59 09/13/19 09:00 Famotidine (Pepcid) 20 mg DAILY ORAL 09/10/19 09:00 12/09/19 08:59 09/13/19 09:00 Finasteride (Proscar) 5 mg DAILY ORAL 09/10/19 09:00 11/05/19 15:44 09/13/19 09:00 Hydralazine HCl (Apresoline) 50 mg Q8HR ORAL 09/12/19 22:00 12/11/19 21:59 09/13/19 10:44 Isosorbide Mononitrate (Imdur) 30 mg DAILY ORAL 09/10/19 09:00 10/10/19 08:59 09/13/19 09:00 Lorazepam (Ativan 2mg/ml 1ml) 1 mg Q4H PRN IV For Anxiety 09/09/19 22:30 09/16/19 22:29 09/13/19 04:26 Magnesium Hydroxide (Mom) 30 ml TIDPRN PRN ORAL Constipation 09/09/19 13:00 10/09/19 12:59 Multivitamins (Multivitamins) 1 tab DAILY ORAL 09/10/19 09:00 10/10/19 08:59 09/13/19 09:00 Tamsulosin HCl (Flomax) 0.4 mg BID ORAL 09/12/19 12:00 10/06/19 20:59 09/13/19 09:00 Trazodone HCl (Desyrel) 25 mg BEDTIME ORAL 09/09/19 21:00 10/09/19 20:59 09/12/19 20:43 Valproic Acid (Depakene) 250 mg EVERY 12 HOURS NG 09/09/19 21:00 10/22/19 20:59 09/13/19 09:00 Kimani Hahn MD Sep 13, 2019 11:41
--- NOTE | 2019-09-13 11:55 | NUR ---
*-*INSURANCE*-* UPDATED CLINICALS AND REVIEWS HAVE BEEN FACXED TO: DEE ARAGON:GLENIS P: [phone] F: [phone] REF# [id number]
[2019-09-13 12:00] VITALS: BP 139/45
--- NOTE | 2019-09-13 12:27 | Urology Progress Note ---
Assessment/Plan Status: stable, progressing, not improved Assessment/Plan: 1. Gross hematuria hx, presumably secondary to Doshi trauma, resolved. 2. BPH. 3. Urinary retention. 4. Neurogenic bladder. 5. Pyuria?UTI/colonized. 6. Proteinuria. 7. Renal insufficiency, which appears to be acute on chronic. 8. Rule out urethral stricture. monitor clinically doshi out, voiding/incontinent on proscar and flomax s/p abx restraints PRN cysto at some point monitor PVR and reinsert doshi PRN renal imaging? COVID (+) Eliquis resumed monitor for bleeding Subjective Allergies: Coded Allergies: No Known Allergies (Unverified , 06/05/19) Subjective all noted, confused, doshi out, incontinent, condom cath Objective Last 24 Hour Vital Signs Date Time Temp Pulse Resp B/P (MAP) Pulse Ox O2 Delivery O2 Flow Rate FiO2 09/13/19 12:00 98.3 70 17 139/45 (76) 96 09/13/19 10:44 136/49 09/13/19 09:00 Room Air 09/13/19 09:00 136/49 09/13/19 09:00 64 136/49 09/13/19 08:00 98.0 64 16 136/49 (78) 97 09/13/19 04:00 97.8 62 18 151/61 (91) 98 09/13/19 00:00 97.6 66 18 141/60 (87) 98 09/12/19 21:28 160/59 09/12/19 21:00 Room Air 09/12/19 20:00 97.9 71 18 160/59 (92) 100 09/12/19 16:00 98.3 64 18 98/47 (64) 99 09/12/19 14:00 97/46 Intake and Output 09/12/19 09/13/19 18:59 06:59 Intake Total 675 ml 1200 ml Balance 675 ml 1200 ml Intake Oral 100 ml IV Total 675 ml 1100 ml # Voids 4 Microbiology Date/Time Source Procedure Growth Status 09/07/19 19:00 Nasopharynx Coronavirus COVID-19 PCR ([facility]OS[facility]) - Final Complete 08/28/19 12:31 Indwelling Cath Urine Culture - Final Pseudomonas Aeruginosa Raoultella [place] Complete 08/06/19 04:45 Rectum VRE Culture - Final NO VANCOMYCIN RESISTANT ENTEROCOCCUS ... Complete Current Medications Medications (Trade) Dose Ordered Sig/Kristine Route PRN Reason Start Time Stop Time Status Last Admin Dose Admin Acetaminophen (Tylenol) 650 mg Q4H PRN ORAL Fever 09/09/19 22:30 10/09/19 22:29 09/09/19 22:42 Amlodipine Besylate (Norvasc) 10 mg DAILY ORAL 09/10/19 09:00 09/28/19 08:59 09/13/19 09:00 Apixaban (Eliquis) 2.5 mg BID@0900,2100 ORAL 09/09/19 21:00 12/06/19 08:59 09/13/19 09:00 Ascorbic Acid (Vitamin C) 250 mg DAILY ORAL 09/10/19 09:00 10/10/19 08:59 09/13/19 09:00 Calcitonin [place] (Miacalcin) 1 sprays DAILY NASAL 09/12/19 13:00 12/11/19 12:59 09/13/19 09:00 Dextrose 1,000 ml @ 100 mls/hr Q10H IV 09/12/19 21:31 10/12/19 21:30 09/13/19 07:31 Escitalopram Oxalate (Lexapro) 5 mg DAILY ORAL 09/10/19 09:00 10/09/19 08:59 09/13/19 09:00 Famotidine (Pepcid) 20 mg DAILY ORAL 09/10/19 09:00 12/09/19 08:59 09/13/19 09:00 Finasteride (Proscar) 5 mg DAILY ORAL 09/10/19 09:00 11/05/19 15:44 09/13/19 09:00 Hydralazine HCl (Apresoline) 50 mg Q8HR ORAL 09/12/19 22:00 12/11/19 21:59 09/13/19 10:44 Isosorbide Mononitrate (Imdur) 30 mg DAILY ORAL 09/10/19 09:00 10/10/19 08:59 09/13/19 09:00 Lorazepam (Ativan 2mg/ml 1ml) 1 mg Q4H PRN IV For Anxiety 09/09/19 22:30 09/16/19 22:29 09/13/19 04:26 Magnesium Hydroxide (Mom) 30 ml TIDPRN PRN ORAL Constipation 09/09/19 13:00 10/09/19 12:59 Multivitamins (Multivitamins) 1 tab DAILY ORAL 09/10/19 09:00 10/10/19 08:59 09/13/19 09:00 Tamsulosin HCl (Flomax) 0.4 mg BID ORAL 09/12/19 12:00 10/06/19 20:59 09/13/19 09:00 Trazodone HCl (Desyrel) 25 mg BEDTIME ORAL 09/09/19 21:00 10/09/19 20:59 09/12/19 20:43 Valproic Acid (Depakene) 250 mg EVERY 12 HOURS NG 09/09/19 21:00 10/22/19 20:59 09/13/19 09:00 Laboratory Tests 09/13/19 03:40: White Blood Count 6.3, Red Blood Count 3.13L, Hemoglobin 9.1L, Hematocrit 27.3L , Mean Corpuscular Volume 87, Mean Corpuscular Hemoglobin 29.1, Mean Corpuscular Hemoglobin Concent 33.3, Red Cell Distribution Width 13.0, Platelet Count 200, Mean Platelet Volume 5.0L, Neutrophils (%) (Auto) 77.2H, Lymphocytes (%) (Auto) 13.5L, Monocytes (%) (Auto) 6.4, Eosinophils (%) (Auto) 1.8, Basophils (%) (Auto) 1.2, Sodium Level 149H, Potassium Level 3.7, Chloride Level 114H, Carbon Dioxide Level 26, Anion Gap 9, Blood Urea Nitrogen 28H, Creatinine 1.8H, Estimat Glomerular Filtration Rate 36.1, Glucose Level 113H, Uric Acid 6.2, Calcium Level 9.3, Ionized Calcium (Measured) 1.26, Phosphorus Level 2.4L, Magnesium Level 2.1, Total Bilirubin 0.4, Aspartate Amino Transf ( AST/SGOT) 23, Alanine Aminotransferase (ALT/SGPT) 34, Alkaline Phosphatase 95, C -Reactive Protein, Quantitative 2.2H, Total Protein 6.1L, Albumin 2.4L, Globulin 3.7, Albumin/Globulin Ratio 0.6L Height (Feet): 5 Height (Inches): 6.00 Weight (Pounds): 107 Objective exam stable abdomen soft urine grossly yellow Bamshad,Miki Orlando MD Sep 13, 2019 12:27
--- NOTE | 2019-09-13 12:57 | Surgery Progress Note ---
Surgery Progress Note Subjective Additional Comments labs noted micro reviewed no acute events dnr/dni Objective Last 24 Hour Vital Signs Date Time Temp Pulse Resp B/P (MAP) Pulse Ox O2 Delivery O2 Flow Rate FiO2 09/13/19 12:00 98.3 70 17 139/45 (76) 96 09/13/19 10:44 136/49 09/13/19 09:00 Room Air 09/13/19 09:00 136/49 09/13/19 09:00 64 136/49 09/13/19 08:00 98.0 64 16 136/49 (78) 97 09/13/19 04:00 97.8 62 18 151/61 (91) 98 09/13/19 00:00 97.6 66 18 141/60 (87) 98 09/12/19 21:28 160/59 09/12/19 21:00 Room Air 09/12/19 20:00 97.9 71 18 160/59 (92) 100 09/12/19 16:00 98.3 64 18 98/47 (64) 99 09/12/19 14:00 97/46 I&O Intake and Output 09/12/19 09/13/19 19:00 07:00 Intake Total 675 ml 1200 ml Balance 675 ml 1200 ml Intake Oral 100 ml IV Total 675 ml 1100 ml # Voids 4 Dressing: other Wound: other Drains: other Cardiovascular: RSR Respiratory: decreased breath sounds Abdomen: soft, non-tender, present bowel sounds Extremities: no tenderness, no cyanosis Laboratory Tests Test 09/13/19 03:40 White Blood Count 6.3 K/UL (4.8-10.8) Red Blood Count 3.13 M/UL (4.70-6.10) L Hemoglobin 9.1 G/DL (14.2-18.0) L Hematocrit 27.3 % (42.0-52.0) L Mean Corpuscular Volume 87 FL (80-99) Mean Corpuscular Hemoglobin 29.1 PG (27.0-31.0) Mean Corpuscular Hemoglobin Concent 33.3 G/DL (32.0-36.0) Red Cell Distribution Width 13.0 % (11.6-14.8) Platelet Count 200 K/UL (150-450) Mean Platelet Volume 5.0 FL (6.5-10.1) L Neutrophils (%) (Auto) 77.2 % (45.0-75.0) H Lymphocytes (%) (Auto) 13.5 % (20.0-45.0) L Monocytes (%) (Auto) 6.4 % (1.0-10.0) Eosinophils (%) (Auto) 1.8 % (0.0-3.0) Basophils (%) (Auto) 1.2 % (0.0-2.0) Sodium Level 149 MMOL/L (136-145) H Potassium Level 3.7 MMOL/L (3.5-5.1) Chloride Level 114 MMOL/L (98-107) H Carbon Dioxide Level 26 MMOL/L (21-32) Anion Gap 9 mmol/L (5-15) Blood Urea Nitrogen 28 mg/dL (7-18) H Creatinine 1.8 MG/DL (0.55-1.30) H Estimat Glomerular Filtration Rate 36.1 mL/min (>60) Glucose Level 113 MG/DL (74-106) H Uric Acid 6.2 MG/DL (2.6-7.2) Calcium Level 9.3 MG/DL (8.5-10.1) Ionized Calcium (Measured) 1.26 mmol/L (1.10-1.35) Phosphorus Level 2.4 MG/DL (2.5-4.9) L Magnesium Level 2.1 MG/DL (1.8-2.4) Total Bilirubin 0.4 MG/DL (0.2-1.0) Aspartate Amino Transf (AST/SGOT) 23 U/L (15-37) Alanine Aminotransferase (ALT/SGPT) 34 U/L (12-78) Alkaline Phosphatase 95 U/L (46-116) C-Reactive Protein, Quantitative 2.2 mg/dL (0.00-0.90) H Total Protein 6.1 G/DL (6.4-8.2) L Albumin 2.4 G/DL (3.4-5.0) L Globulin 3.7 g/dL Albumin/Globulin Ratio 0.6 (1.0-2.7) L Plan Problems: (1) Dehydration (2) Anemia (3) UTI (urinary tract infection) (4) Falls frequently (5) Renal failure (ARF), acute on chronic (6) Encephalopathy due to metabolic factor or toxin (7) CHF (congestive heart failure) (8) Gross hematuria (9) Deep tissue injury Assessment & Plan: Pt presented on admission with multiple pressure injuries which were resolving. 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 Base of injury is purple with maroon borders . Surrounding non-blanching erythema to R and Gluteal cheeks. Scrotum is erythematous. R and L heels are boggy but each area blanchable. Tx.Plan: Apply Moisture Barrier Paste to Sacrum. Cover with Optifoam drsg. Change every 3 days and prn. Apply Moisture Barrier Paste to bilat groin and scrotum with each incontinence care. Apply Cavilon Skin Barrier to both heels. Cover each heel with Optifoam drsg. Change every 7 days and prn. Reposition at least every 2hours or as tolerated. Off-load heels with pillow. APM/MEI Mattress overlay. (10) Malnutrition Assessment & Plan: DAILY ESTIMATED NEEDS: Needs based on Wound, 66.8kg 28-33 kcals/kg 3327-2176 total kcals 1.25-1.5 g protein/kg 84-100 g total protein 25-30 mL/kg 4513-4567 total fluid mLs NUTRITION DIAGNOSIS: Swallowing difficulty r/t dysphagia and ams as evidenced by s/p [employer] eval, poor cognition, pt on liquify puree texture diet w/ HTL, now with improved intake. CURRENT DIET: Liquify puree HTL Regular PO DIET RECOMMENDATIONS: Maintain Regular diet, texture per [employer] ADDITIONAL RECOMMENDATIONS: 1) Ensure Enlive TID w/ meals (350kcal/20g prot per bottle) 2) Maintain calibrated bed scale wts EMR wt: 160# vs Bed scale wt: 147#-> bed now reads 109.8# 3) Consider D5 IVF (vs 1/2 NS running currently)- Na elevated to prevent hypoglycemia given poor/variable PO 4) Wound care: MVI 1 tab QD + Vit C 250mg QD+ Jacob BID 5) Monitor lytes, replete as needed (11) Severe protein-calorie malnutrition Sai Aaron Sep 13, 2019 12:57
--- NOTE | 2019-09-13 14:14 | Nephrology Progress Note ---
Assessment/Plan Problem List: (1) Renal failure (ARF), acute on chronic Assessment: Serum creatinine stabilizing (2) Falls frequently (3) UTI (urinary tract infection) Assessment: and hematuria (4) Anemia (5) Dehydration (6) Encephalopathy due to metabolic factor or toxin (7) Hypercalcemia Assessment Frequent falls Acute renal failure with underlying dehydration Anemia, underlying etiology unclear UTI (urinary tract infection) Toxic metabolic encephalopathy Plan Serum creatinine overall stable vacillating between 1.7- to 2 Watch serum calcium, start calcitonin nasal spray for hypercalcemia Increase hydralazine dose for better blood pressure control Patient now COVID-19 positive Start D5W for hypernatremia as needed P.o. intake variable Oral potassium supplement as needed previously: Increase Flomax to twice daily Correct electrolytes as needed Transfusion as needed 2D echocardiogram ejection fraction 60% Kidney ultrasound pending results Monitor renal parameters Avoid nephrotoxics Antibiotics for UTI Continue per consultants Subjective ROS Limited/Unobtainable: No Constitutional: Reports: malaise, weakness Objective Objective Last 24 Hour Vital Signs Date Time Temp Pulse Resp B/P (MAP) Pulse Ox O2 Delivery O2 Flow Rate FiO2 09/13/19 12:00 98.3 70 17 139/45 (76) 96 09/13/19 10:44 136/49 09/13/19 09:00 Room Air 09/13/19 09:00 136/49 09/13/19 09:00 64 136/49 09/13/19 08:00 98.0 64 16 136/49 (78) 97 09/13/19 04:00 97.8 62 18 151/61 (91) 98 09/13/19 00:00 97.6 66 18 141/60 (87) 98 09/12/19 21:28 160/59 09/12/19 21:00 Room Air 09/12/19 20:00 97.9 71 18 160/59 (92) 100 09/12/19 16:00 98.3 64 18 98/47 (64) 99 Intake and Output 09/12/19 09/13/19 19:00 07:00 Intake Total 675 ml 1200 ml Balance 675 ml 1200 ml Intake Oral 100 ml IV Total 675 ml 1100 ml # Voids 4 Current Medications Medications (Trade) Dose Ordered Sig/Kristine Route PRN Reason Start Time Stop Time Status Last Admin Dose Admin Acetaminophen (Tylenol) 650 mg Q4H PRN ORAL Fever 4/24/20 22:30 10/09/19 22:29 09/09/19 22:42 Amlodipine Besylate (Norvasc) 10 mg DAILY ORAL 09/10/19 09:00 09/28/19 08:59 09/13/19 09:00 Apixaban (Eliquis) 2.5 mg BID@0900,2100 ORAL 09/09/19 21:00 12/06/19 08:59 09/13/19 09:00 Ascorbic Acid (Vitamin C) 250 mg DAILY ORAL 09/10/19 09:00 10/10/19 08:59 09/13/19 09:00 Calcitonin [place] (Miacalcin) 1 sprays DAILY NASAL 09/12/19 13:00 12/11/19 12:59 09/13/19 09:00 Dextrose 1,000 ml @ 100 mls/hr Q10H IV 09/12/19 21:31 10/12/19 21:30 09/13/19 07:31 Escitalopram Oxalate (Lexapro) 5 mg DAILY ORAL 09/10/19 09:00 10/09/19 08:59 09/13/19 09:00 Famotidine (Pepcid) 20 mg DAILY ORAL 09/10/19 09:00 12/09/19 08:59 09/13/19 09:00 Finasteride (Proscar) 5 mg DAILY ORAL 09/10/19 09:00 11/05/19 15:44 09/13/19 09:00 Hydralazine HCl (Apresoline) 50 mg Q8HR ORAL 09/12/19 22:00 12/11/19 21:59 09/13/19 10:44 Isosorbide Mononitrate (Imdur) 30 mg DAILY ORAL 09/10/19 09:00 10/10/19 08:59 09/13/19 09:00 Lorazepam (Ativan 2mg/ml 1ml) 1 mg Q4H PRN IV For Anxiety 09/09/19 22:30 09/16/19 22:29 09/13/19 04:26 Magnesium Hydroxide (Mom) 30 ml TIDPRN PRN ORAL Constipation 09/09/19 13:00 10/09/19 12:59 Multivitamins (Multivitamins) 1 tab DAILY ORAL 09/10/19 09:00 10/10/19 08:59 09/13/19 09:00 Tamsulosin HCl (Flomax) 0.4 mg BID ORAL 09/12/19 12:00 10/06/19 20:59 09/13/19 09:00 Trazodone HCl (Desyrel) 25 mg BEDTIME ORAL 09/09/19 21:00 10/09/19 20:59 09/12/19 20:43 Valproic Acid (Depakene) 250 mg EVERY 12 HOURS NG 09/09/19 21:00 10/22/19 20:59 09/13/19 09:00 Laboratory Tests 09/13/19 03:40: White Blood Count 6.3, Red Blood Count 3.13L, Hemoglobin 9.1L, Hematocrit 27.3L , Mean Corpuscular Volume 87, Mean Corpuscular Hemoglobin 29.1, Mean Corpuscular Hemoglobin Concent 33.3, Red Cell Distribution Width 13.0, Platelet Count 200, Mean Platelet Volume 5.0L, Neutrophils (%) (Auto) 77.2H, Lymphocytes (%) (Auto) 13.5L, Monocytes (%) (Auto) 6.4, Eosinophils (%) (Auto) 1.8, Basophils (%) (Auto) 1.2, Sodium Level 149H, Potassium Level 3.7, Chloride Level 114H, Carbon Dioxide Level 26, Anion Gap 9, Blood Urea Nitrogen 28H, Creatinine 1.8H, Estimat Glomerular Filtration Rate 36.1, Glucose Level 113H, Uric Acid 6.2, Calcium Level 9.3, Ionized Calcium (Measured) 1.26, Phosphorus Level 2.4L, Magnesium Level 2.1, Total Bilirubin 0.4, Aspartate Amino Transf ( AST/SGOT) 23, Alanine Aminotransferase (ALT/SGPT) 34, Alkaline Phosphatase 95, C -Reactive Protein, Quantitative 2.2H, Total Protein 6.1L, Albumin 2.4L, Globulin 3.7, Albumin/Globulin Ratio 0.6L Height (Feet): 5 Height (Inches): 6.00 Weight (Pounds): 107 General Appearance: no apparent distress Cardiovascular: normal rate Respiratory/Chest: decreased breath sounds Abdomen: distended Objective No change Juan Jade MD Sep 13, 2019 14:14
[2019-09-13 16:30] VITALS: BP 142/57
--- NOTE | 2019-09-13 16:57 | NUR ---
CASE MANAGEMENT:REVIEW 09/10/19 SI: COVID 19 PNEUMONIA 97.5 83 20 135/60 96% ON RA H/H-9.4/27.2 K-3.2 BUN+26 CR+1.7 BNP+9950 WBC 3.8 H/H 8.7/25.8 AST 71 ALBUMIN 2.4 IS: LEXAPRO PO QD K-DUR PO BID DEPAKENE PO Q12 ELIQUIS PO BID FLOMAX PO QHS HYDRALAZINE PO TID NORVASC PO QD PROSCAR PO QD PROTONIX PO QD NITRO BID 1" Q6HRS : 4E MED SURG STATUS DCP: [facility] CASE MANAGEMENT:REVIEW 09/11/19 SI: COVID 19 PNEUMONIA 98.5 78 12 132/68 95% ON RA ABG: pH 7.506 pCO2 26.1 pO2 62.6 HCO3 20.2 O2 SAT 92.1 IS: LEXAPRO PO QD K-DUR PO BID DEPAKENE PO Q12 ELIQUIS PO BID FLOMAX PO QHS HYDRALAZINE PO TID NORVASC PO QD PROSCAR PO QD PROTONIX PO QD NITRO BID 1" Q6HRS : 4E MED SURG STATUS DCP: [facility] CASE MANAGEMENT:REVIEW 09/12/19 SI: COVID 19 PNEUMONIA 98.2 69 17 97/46 98% ON RA NA+ 152 CL-116 BUN 33 CREAT 1.9 CA+10.2 LDH 328 C-REC PRO 4.6 ALB 2.7 IS: LEXAPRO PO QD K-DUR PO BID DEPAKENE PO Q12 ELIQUIS PO BID FLOMAX PO QHS HYDRALAZINE PO TID NORVASC PO QD PROSCAR PO QD PROTONIX PO QD NITRO BID 1" Q6HRS : 4E MED SURG STATUS DCP: [facility] CASE MANAGEMENT:REVIEW 09/13/19 SI: COVID 19 PNEUMONIA 98.0 64 16 136/49 97% ON RA NA+ 149 CL-114 BUN/CREAT 28/1.8 PHOS 2.4 ALB 2.4 H/H 9.1/27.3 IS: LEXAPRO PO QD K-DUR PO BID DEPAKENE PO Q12 ELIQUIS PO BID FLOMAX PO QHS HYDRALAZINE PO TID NORVASC PO QD PROSCAR PO QD PROTONIX PO QD NITRO BID 1" Q6HRS : 4E MED SURG STATUS DCP: [facility] PLAN: REACHED OUT TO [facility]- UNABLE TO ACCEPT DUE TO (+) COVID-19 REPEAT COVID-19
--- NOTE | 2019-09-13 19:23 | NUR ---
HAND-OFF: Report given to Yossi.
--- NOTE | 2019-09-13 19:28 | NUR ---
NURSE NOTES: Pt. received from LUIS FERNANDO Chairez. Pt. AAOx1, on room air, breathing is even and unlabored, no indications of pain at this time. IV L FA 22g asymptomatic, intact, and patent; D5W at 100cc/hr. Bed is low and locked, side rails x3 up, bed alarm active, and call light in reach. Will continue to monitor.
[2019-09-13 20:00] VITALS: BP 149/49
[2019-09-13] MEDS: TraZODone HCl 25 mg tablet ORAL SCH (21:10)
[2019-09-14] VITALS: BP 160/59
[2019-09-14 04:00] VITALS: BP 93/75
--- NOTE | 2019-09-14 05:14 | Progress Note ---
DATE: 09/13/2019 CARDIOLOGY PROGRESS NOTE SUBJECTIVE: Patient remains episodically agitated, but usually cooperative. He has not been on any additional angiolytic drugs over the past 24 hours. No fevers or chills. No shortness of breath. Monitored rhythm, atrial fibrillation, rate controlled. PHYSICAL EXAMINATION: VITAL SIGNS: Blood pressure 136/49, heart rate 64, respirations 16, afebrile, room air oxygen saturation 97 to 100%. LUNGS: Few rhonchi. CARDIAC: Irregularly irregular rhythm. A 1/6 systolic apical murmur changed. ABDOMEN: Soft. EXTREMITIES: Trace edema. LABORATORY DATA: White count 6.3, hemoglobin 9.1, platelets 200. Sodium 149, potassium 3.7, chloride 114, BUN 28, creatinine 1.8. Ionized calcium is 1.26. IMPRESSION: 1. Dehydration. 2. Hypernatremia. 3. Hyperchloremia. 4. Acute on chronic renal failure, improved. 5. Normal ionized calcium levels. 6. Hypophosphatemia, on replacement. 7. Valvular cardiomyopathy. 8. Mitral regurgitation. 9. Pulmonary hypertension. 10. Atrial fibrillation. 11. 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 12. COVID-19 infection and pneumonia. 13. Hypoxia, resolved. PLAN: 1. Await clearance of virus for discharge. 2. Maintain current cardiovascular regimen without change. 3. Hypotonic IV fluid hydration until free water deficit corrected. Gamaliel Salas M.D. DR: LUISA JOB#: [id number] CC:
[2019-09-14] MEDS: HydrALAZINE 50mg tab ORAL SCH ×3 (06:27→21:22)
--- NOTE | 2019-09-14 07:15 | NUR ---
HAND-OFF: Report given to LUIS FERNANDO Zaidi.
[2019-09-14 08:00] VITALS: BP 151/80
--- NOTE | 2019-09-14 08:08 | NUR ---
NURSE NOTES: Patient alert x2, confused; on room air, no sing of distress and shortness of breath; no sing of chest pain; IV Left For-Arm fluid is running; side rails up x2, breaks engaged, bed at lowest position, bed alarm on; call light within reach; will keep monitoring.
[2019-09-14] MEDS: Eliquis 2.5mg tablet ORAL SCH ×2 (09:17→21:22)
[2019-09-14] MEDS: Tamsulosin 0.4mg cap ORAL SCH ×2 (09:17→17:16)
[2019-09-14] MEDS: Imdur 30mg tab ORAL SCH (09:18)
[2019-09-14] MEDS: Valproic Acid 250mg/5ml Liquid NG SCH ×2 (09:18→21:21)
[2019-09-14] MEDS: Ascorbic Acid 500mg tab ORAL SCH (09:19)
--- NOTE | 2019-09-14 10:07 | Pulmonology Progress Note ---
Assessment/Plan Assessment/Plan IMPRESSION: 1. Pleural effusions, small bilateral. 2. Atelectasis. 3. Pulmonary edema, questionable. 4. Hypertension. 5. Hyperlipidemia. 6. positive COVID 19 7. UTI DISCUSSION: The patient is saturating well on room air I will follow as counter professional. No new recommendations Kimani Hahn M.D. Subjective ROS Limited/Unobtainable: No Interval Events: None new reported Constitutional: Denies: fever HEENT: Repors: no symptoms Respiratory: Reports: no symptoms Cardiovascular: Reports: no symptoms Gastrointestinal/Abdominal: Denies: nausea, vomiting, diarrhea Genitourinary: Reports: no symptoms Neurologic: Reports: no symptoms Musculoskeletal: Denies: pain Allergies: Coded Allergies: No Known Allergies (Unverified , 06/05/19) All Systems: reviewed and negative except above Objective Last 24 Hour Vital Signs Date Time Temp Pulse Resp B/P (MAP) Pulse Ox O2 Delivery O2 Flow Rate FiO2 09/14/19 09:19 66 151/80 09/14/19 09:18 151/80 09/14/19 08:00 98.1 66 20 151/80 (103) 96 09/14/19 06:27 171/70 09/14/19 04:00 98.9 87 20 93/75 (81) 93 09/14/19 00:00 99.6 88 19 160/59 (92) 93 09/13/19 21:10 149/49 09/13/19 21:00 Room Air 09/13/19 20:00 98.3 80 19 149/49 (82) 90 09/13/19 16:30 98.5 72 18 142/57 (85) 98 09/13/19 12:00 98.3 70 17 139/45 (76) 96 09/13/19 10:44 136/49 Intake and Output 09/13/19 09/14/19 19:00 07:00 # Voids 2 2 General Appearance: no acute distress, cachetic HEENT: mucous membranes moist Respiratory/Chest: chest wall non-tender, lungs clear Cardiovascular: normal peripheral pulses Abdomen: soft, non tender Extremities: no edema Neurologic/Psychiatric: disoriented Microbiology Date/Time Source Procedure Growth Status 09/12/19 11:30 Nasopharynx Coronavirus COVID-19 PCR (JOSÉ LUIS) - Final Complete Current Medications Medications (Trade) Dose Ordered Sig/Kristine Route PRN Reason Start Time Stop Time Status Last Admin Dose Admin Acetaminophen (Tylenol) 650 mg Q4H PRN ORAL Fever 09/09/19 22:30 10/09/19 22:29 09/09/19 22:42 Amlodipine Besylate (Norvasc) 10 mg DAILY ORAL 09/10/19 09:00 09/28/19 08:59 09/14/19 09:19 Apixaban (Eliquis) 2.5 mg BID@0900,2100 ORAL 09/09/19 21:00 12/06/19 08:59 09/14/19 09:17 Ascorbic Acid (Vitamin C) 250 mg DAILY ORAL 09/10/19 09:00 10/10/19 08:59 09/14/19 09:19 Calcitonin [place] (Miacalcin) 1 sprays DAILY NASAL 09/12/19 13:00 12/11/19 12:59 09/14/19 09:28 Dextrose 1,000 ml @ 100 mls/hr Q10H IV 09/12/19 21:31 10/12/19 21:30 09/14/19 04:29 Escitalopram Oxalate (Lexapro) 5 mg DAILY ORAL 09/10/19 09:00 10/09/19 08:59 09/14/19 09:18 Famotidine (Pepcid) 20 mg DAILY ORAL 09/10/19 09:00 12/09/19 08:59 09/14/19 09:19 Finasteride (Proscar) 5 mg DAILY ORAL 09/10/19 09:00 11/05/19 15:44 09/14/19 09:17 Hydralazine HCl (Apresoline) 50 mg Q8HR ORAL 09/12/19 22:00 12/11/19 21:59 09/14/19 06:27 Isosorbide Mononitrate (Imdur) 30 mg DAILY ORAL 09/10/19 09:00 10/10/19 08:59 09/14/19 09:18 Lorazepam (Ativan 2mg/ml 1ml) 1 mg Q4H PRN IV For Anxiety 09/09/19 22:30 09/16/19 22:29 09/13/19 04:26 Magnesium Hydroxide (Mom) 30 ml TIDPRN PRN ORAL Constipation 09/09/19 13:00 10/09/19 12:59 Multivitamins (Multivitamins) 1 tab DAILY ORAL 09/10/19 09:00 10/10/19 08:59 09/14/19 09:17 Tamsulosin HCl (Flomax) 0.4 mg BID ORAL 09/12/19 12:00 10/06/19 20:59 09/14/19 09:17 Trazodone HCl (Desyrel) 25 mg BEDTIME ORAL 09/09/19 21:00 10/09/19 20:59 09/13/19 21:10 Valproic Acid (Depakene) 250 mg EVERY 12 HOURS NG 09/09/19 21:00 10/22/19 20:59 09/14/19 09:18 Kimani Hahn MD Sep 14, 2019 10:07
--- NOTE | 2019-09-14 10:34 | Infectious Diseases Prog Note ---
Assessment/Plan Assessment/Plan antibiotics : none A 1. COVID 19 pneumonia test + on 4.14.20, 4.16.20, 4.22.20, 4.27.20 2. Pseudomonas and Raoultella urinary tract infection s/p rx 3. Renal failure. 4. hypertension 5. cardiomyopathy P 1. observe off antibiotics 2. will follow up cultures 3. Continue isolation Subjective ROS Limited/Unobtainable: Yes Allergies: Coded Allergies: No Known Allergies (Unverified , 06/05/19) Objective Vital Signs Last 24 Hour Vital Signs Date Time Temp Pulse Resp B/P (MAP) Pulse Ox O2 Delivery O2 Flow Rate FiO2 09/14/19 09:19 66 151/80 09/14/19 09:18 151/80 09/14/19 08:00 98.1 66 20 151/80 (103) 96 09/14/19 06:27 171/70 09/14/19 04:00 98.9 87 20 93/75 (81) 93 09/14/19 00:00 99.6 88 19 160/59 (92) 93 09/13/19 21:10 149/49 09/13/19 21:00 Room Air 09/13/19 20:00 98.3 80 19 149/49 (82) 90 09/13/19 16:30 98.5 72 18 142/57 (85) 98 09/13/19 12:00 98.3 70 17 139/45 (76) 96 09/13/19 10:44 136/49 Height (Feet): 5 Height (Inches): 6.00 Weight (Pounds): 89 Microbiology Date/Time Source Procedure Growth Status 09/12/19 11:30 Nasopharynx Coronavirus COVID-19 PCR (JOSÉ LUIS) - Final Complete Current Medications Medications (Trade) Dose Ordered Sig/Kristine Route PRN Reason Start Time Stop Time Status Last Admin Dose Admin Acetaminophen (Tylenol) 650 mg Q4H PRN ORAL Fever 09/09/19 22:30 10/09/19 22:29 09/09/19 22:42 Amlodipine Besylate (Norvasc) 10 mg DAILY ORAL 09/10/19 09:00 09/28/19 08:59 09/14/19 09:19 Apixaban (Eliquis) 2.5 mg BID@0900,2100 ORAL 09/09/19 21:00 12/06/19 08:59 09/14/19 09:17 Ascorbic Acid (Vitamin C) 250 mg DAILY ORAL 09/10/19 09:00 10/10/19 08:59 09/14/19 09:19 Calcitonin [place] (Miacalcin) 1 sprays DAILY NASAL 09/12/19 13:00 12/11/19 12:59 09/14/19 09:28 Dextrose 1,000 ml @ 100 mls/hr Q10H IV 09/12/19 21:31 10/12/19 21:30 09/14/19 04:29 Escitalopram Oxalate (Lexapro) 5 mg DAILY ORAL 09/10/19 09:00 10/09/19 08:59 09/14/19 09:18 Famotidine (Pepcid) 20 mg DAILY ORAL 09/10/19 09:00 12/09/19 08:59 09/14/19 09:19 Finasteride (Proscar) 5 mg DAILY ORAL 09/10/19 09:00 11/05/19 15:44 09/14/19 09:17 Hydralazine HCl (Apresoline) 50 mg Q8HR ORAL 09/12/19 22:00 12/11/19 21:59 09/14/19 06:27 Isosorbide Mononitrate (Imdur) 30 mg DAILY ORAL 09/10/19 09:00 10/10/19 08:59 09/14/19 09:18 Lorazepam (Ativan 2mg/ml 1ml) 1 mg Q4H PRN IV For Anxiety 09/09/19 22:30 09/16/19 22:29 09/13/19 04:26 Magnesium Hydroxide (Mom) 30 ml TIDPRN PRN ORAL Constipation 09/09/19 13:00 10/09/19 12:59 Multivitamins (Multivitamins) 1 tab DAILY ORAL 09/10/19 09:00 10/10/19 08:59 09/14/19 09:17 Tamsulosin HCl (Flomax) 0.4 mg BID ORAL 09/12/19 12:00 10/06/19 20:59 09/14/19 09:17 Trazodone HCl (Desyrel) 25 mg BEDTIME ORAL 09/09/19 21:00 10/09/19 20:59 09/13/19 21:10 Valproic Acid (Depakene) 250 mg EVERY 12 HOURS NG 09/09/19 21:00 10/22/19 20:59 09/14/19 09:18 Gonzalez Stephens MD Sep 14, 2019 10:34
--- NOTE | 2019-09-14 11:41 | Urology Progress Note ---
Assessment/Plan Status: stable, progressing, not improved Assessment/Plan: 1. Gross hematuria hx, presumably secondary to Doshi trauma, resolved. 2. BPH. 3. Urinary retention. 4. Neurogenic bladder. 5. Pyuria?UTI/colonized. 6. Proteinuria. 7. Renal insufficiency, which appears to be acute on chronic. 8. Rule out urethral stricture. monitor clinically doshi out, voiding/incontinent on proscar and flomax s/p abx restraints PRN cysto at some point monitor PVR and reinsert doshi PRN renal imaging? COVID (+) Eliquis resumed monitor for bleeding Subjective Allergies: Coded Allergies: No Known Allergies (Unverified , 06/05/19) Subjective all noted, confused, doshi out, incontinent, condom cath Objective Last 24 Hour Vital Signs Date Time Temp Pulse Resp B/P (MAP) Pulse Ox O2 Delivery O2 Flow Rate FiO2 09/14/19 09:19 66 151/80 09/14/19 09:18 151/80 09/14/19 09:00 Room Air 09/14/19 08:00 98.1 66 20 151/80 (103) 96 09/14/19 06:27 171/70 09/14/19 04:00 98.9 87 20 93/75 (81) 93 09/14/19 00:00 99.6 88 19 160/59 (92) 93 09/13/19 21:10 149/49 09/13/19 21:00 Room Air 09/13/19 20:00 98.3 80 19 149/49 (82) 90 09/13/19 16:30 98.5 72 18 142/57 (85) 98 09/13/19 12:00 98.3 70 17 139/45 (76) 96 Intake and Output 09/13/19 09/14/19 19:00 07:00 # Voids 2 2 Microbiology Date/Time Source Procedure Growth Status 09/12/19 11:30 Nasopharynx Coronavirus COVID-19 PCR (JOSÉ LUIS) - Final Complete 08/28/19 12:31 Indwelling Cath Urine Culture - Final Pseudomonas Aeruginosa Raoultella [place] Complete 08/06/19 04:45 Rectum VRE Culture - Final NO VANCOMYCIN RESISTANT ENTEROCOCCUS ... Complete Current Medications Medications (Trade) Dose Ordered Sig/Kristine Route PRN Reason Start Time Stop Time Status Last Admin Dose Admin Acetaminophen (Tylenol) 650 mg Q4H PRN ORAL Fever 09/09/19 22:30 10/09/19 22:29 09/09/19 22:42 Amlodipine Besylate (Norvasc) 10 mg DAILY ORAL 09/10/19 09:00 09/28/19 08:59 09/14/19 09:19 Apixaban (Eliquis) 2.5 mg BID@0900,2100 ORAL 09/09/19 21:00 12/06/19 08:59 09/14/19 09:17 Ascorbic Acid (Vitamin C) 250 mg DAILY ORAL 09/10/19 09:00 10/10/19 08:59 09/14/19 09:19 Calcitonin [place] (Miacalcin) 1 sprays DAILY NASAL 09/12/19 13:00 12/11/19 12:59 09/14/19 09:28 Dextrose 1,000 ml @ 100 mls/hr Q10H IV 09/12/19 21:31 10/12/19 21:30 09/14/19 04:29 Escitalopram Oxalate (Lexapro) 5 mg DAILY ORAL 09/10/19 09:00 10/09/19 08:59 09/14/19 09:18 Famotidine (Pepcid) 20 mg DAILY ORAL 09/10/19 09:00 12/09/19 08:59 09/14/19 09:19 Finasteride (Proscar) 5 mg DAILY ORAL 09/10/19 09:00 11/05/19 15:44 09/14/19 09:17 Hydralazine HCl (Apresoline) 50 mg Q8HR ORAL 09/12/19 22:00 12/11/19 21:59 09/14/19 06:27 Isosorbide Mononitrate (Imdur) 30 mg DAILY ORAL 09/10/19 09:00 10/10/19 08:59 09/14/19 09:18 Lorazepam (Ativan 2mg/ml 1ml) 1 mg Q4H PRN IV For Anxiety 09/09/19 22:30 09/16/19 22:29 09/13/19 04:26 Magnesium Hydroxide (Mom) 30 ml TIDPRN PRN ORAL Constipation 09/09/19 13:00 10/09/19 12:59 Multivitamins (Multivitamins) 1 tab DAILY ORAL 09/10/19 09:00 10/10/19 08:59 09/14/19 09:17 Tamsulosin HCl (Flomax) 0.4 mg BID ORAL 09/12/19 12:00 10/06/19 20:59 09/14/19 09:17 Trazodone HCl (Desyrel) 25 mg BEDTIME ORAL 09/09/19 21:00 10/09/19 20:59 09/13/19 21:10 Valproic Acid (Depakene) 250 mg EVERY 12 HOURS NG 09/09/19 21:00 10/22/19 20:59 09/14/19 09:18 Height (Feet): 5 Height (Inches): 6.00 Weight (Pounds): 89 Objective exam stable abdomen soft urine grossly yellow Bamshad,Miki Perry MD Sep 14, 2019 11:41
[2019-09-14 12:00] VITALS: BP 149/62
--- NOTE | 2019-09-14 14:30 | NUR ---
NURSE NOTES: Per MD Echavarria order, COVID-19 swap done; waiting for result;
--- NOTE | 2019-09-14 14:32 | Surgery Progress Note ---
Surgery Progress Note Subjective Additional Comments doing well comfortable micro reviewed again Objective Last 24 Hour Vital Signs Date Time Temp Pulse Resp B/P (MAP) Pulse Ox O2 Delivery O2 Flow Rate FiO2 09/14/19 12:47 149/62 09/14/19 09:19 66 151/80 09/14/19 09:18 151/80 09/14/19 09:00 Room Air 09/14/19 08:00 98.1 66 20 151/80 (103) 96 09/14/19 06:27 171/70 09/14/19 04:00 98.9 87 20 93/75 (81) 93 09/14/19 00:00 99.6 88 19 160/59 (92) 93 09/13/19 21:10 149/49 09/13/19 21:00 Room Air 09/13/19 20:00 98.3 80 19 149/49 (82) 90 09/13/19 16:30 98.5 72 18 142/57 (85) 98 I&O Intake and Output 09/13/19 09/14/19 19:00 07:00 # Voids 2 2 Dressing: other Wound: other Drains: other Cardiovascular: RSR Respiratory: decreased breath sounds Abdomen: soft, non-tender, present bowel sounds Extremities: no cyanosis Plan Problems: (1) Dehydration (2) Anemia (3) UTI (urinary tract infection) (4) Falls frequently (5) Renal failure (ARF), acute on chronic (6) Encephalopathy due to metabolic factor or toxin (7) CHF (congestive heart failure) (8) Gross hematuria (9) Deep tissue injury Assessment & Plan: Pt presented on admission with multiple pressure injuries which were resolving. 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 Base of injury is purple with maroon borders . Surrounding non-blanching erythema to R and Gluteal cheeks. Scrotum is erythematous. R and L heels are boggy but each area blanchable. Tx.Plan: Apply Moisture Barrier Paste to Sacrum. Cover with Optifoam drsg. Change every 3 days and prn. Apply Moisture Barrier Paste to bilat groin and scrotum with each incontinence care. Apply Cavilon Skin Barrier to both heels. Cover each heel with Optifoam drsg. Change every 7 days and prn. Reposition at least every 2hours or as tolerated. Off-load heels with pillow. APM/MEI Mattress overlay. (10) Malnutrition Assessment & Plan: DAILY ESTIMATED NEEDS: Needs based on Wound, 66.8kg 28-33 kcals/kg 3476-3345 total kcals 1.25-1.5 g protein/kg 84-100 g total protein 25-30 mL/kg 2693-6775 total fluid mLs NUTRITION DIAGNOSIS: Swallowing difficulty r/t dysphagia and ams as evidenced by s/p [employer] eval, poor cognition, pt on liquify puree texture diet w/ HTL, now with improved intake. CURRENT DIET: Liquify puree HTL Regular PO DIET RECOMMENDATIONS: Maintain Regular diet, texture per [employer] ADDITIONAL RECOMMENDATIONS: 1) Ensure Enlive TID w/ meals (350kcal/20g prot per bottle) 2) Maintain calibrated bed scale wts EMR wt: 160# vs Bed scale wt: 147#-> bed now reads 109.8# 3) Consider D5 IVF (vs 1/2 NS running currently)- Na elevated to prevent hypoglycemia given poor/variable PO 4) Wound care: MVI 1 tab QD + Vit C 250mg QD+ Jacob BID 5) Monitor lytes, replete as needed (11) Severe protein-calorie malnutrition Sai Aaron Sep 14, 2019 14:32
--- NOTE | 2019-09-14 15:08 | NUR ---
*-*INSURANCE*-* UPDATED CLINICALS AND REVIEWS HAVE BEEN FACXED TO: DEE ARAGON:GLENIS P: [phone] F: [phone] REF# [id number]
[2019-09-14 16:00] VITALS: BP 146/58
--- NOTE | 2019-09-14 16:50 | General Progress Note ---
Assessment/Plan Problem List: (1) CHF (congestive heart failure) ICD Codes: I50.9 - Heart failure, unspecified SNOMED: 81962239 (2) Renal failure (ARF), acute on chronic ICD Codes: N17.9 - Acute kidney failure, unspecified; N18.9 - Chronic kidney disease, unspecified SNOMED: 847789112 (3) Encephalopathy due to metabolic factor or toxin SNOMED: 030738934 (4) Gross hematuria ICD Codes: R31.0 - Gross hematuria SNOMED: 866397723 (5) Falls frequently ICD Codes: R29.6 - Repeated falls SNOMED: 102421359 (6) Dehydration ICD Codes: E86.0 - Dehydration SNOMED: 57160683 (7) UTI (urinary tract infection) ICD Codes: N39.0 - Urinary tract infection, site not specified SNOMED: 01414642 (8) Anemia ICD Codes: D64.9 - Anemia, unspecified SNOMED: 239577972 Status: stable, progressing, not improved Assessment/Plan: o2 as needed. currently stable on room air. fall precautions. monitor cxr Encourage pos. monitor labs. will repeat labs tomorrow Anxiolytics as needed. Continue blood pressure treatment. DVT and stress ulcer prophylaxis. Discharge planning to [facility] facility on hold for now. will need 2 neg covid tests. Subjective ROS Limited/Unobtainable: Yes Constitutional: Reports: malaise, weakness HEENT: Reports: no symptoms Cardiovascular: Reports: no symptoms Respiratory: Reports: no symptoms Gastrointestinal/Abdominal: Reports: poor fluid intake Genitourinary: Reports: no symptoms Neurologic/Psychiatric: Reports: anxiety, emotional problems, pre-existing deficit Endocrine: Reports: no symptoms Hematologic/Lymphatic: Reports: anemia Allergies: Coded Allergies: No Known Allergies (Unverified , 06/05/19) All Systems: reviewed and negative except above Subjective No overnight events. Patient remains intermittently agitated. mostly cooperative with care. Continues to get out of bed unassisted. did not require any anxiolytics last night. COVID-19 PCR on September 11 is still positive. Patient remains asymptomatic without fevers chills or cough. Na trending up. poor fluid intake. Objective Last 24 Hour Vital Signs Date Time Temp Pulse Resp B/P (MAP) Pulse Ox O2 Delivery O2 Flow Rate FiO2 09/14/19 12:47 149/62 09/14/19 12:00 97.3 80 20 149/62 (91) 96 09/14/19 09:19 66 151/80 09/14/19 09:18 151/80 09/14/19 09:00 Room Air 09/14/19 08:00 98.1 66 20 151/80 (103) 96 09/14/19 06:27 171/70 09/14/19 04:00 98.9 87 20 93/75 (81) 93 09/14/19 00:00 99.6 88 19 160/59 (92) 93 09/13/19 21:10 149/49 09/13/19 21:00 Room Air 09/13/19 20:00 98.3 80 19 149/49 (82) 90 Intake and Output 09/13/19 09/14/19 19:00 07:00 # Voids 2 2 Height (Feet): 5 Height (Inches): 6.00 Weight (Pounds): 89 Objective General Appearance: WD/WN, alert, confused Neck: supple Cardiovascular: regular rhythm Respiratory/Chest: rhonchi - bilaterally Abdomen: normal bowel sounds, non tender, soft, no organomegaly, no mass Edema: no edema noted Arm (L), no edema noted Arm (R), no edema noted Leg (L), no edema noted Leg (R), no edema noted Pedal (L), no edema noted Pedal (R), no edema noted 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
--- NOTE | 2019-09-14 16:51 | NUR ---
CASE MANAGEMENT:REVIEW 09/14/19 SI: COVID 19 PNEUMONIA 99.6 88 19 160/59 93% ON RA COVID-19- IN PROCESS IS: IV D5@100ML/HR LEXAPRO PO QD K-DUR PO BID DEPAKENE PO Q12 ELIQUIS PO BID FLOMAX PO QHS HYDRALAZINE PO TID NORVASC PO QD PROSCAR PO QD PROTONIX PO QD NITRO BID 1" Q6HRS : 4E MED SURG STATUS DCP: [facility] PLAN: REACHED OUT TO [facility]- UNABLE TO ACCEPT DUE TO (+) COVID-19 REPEAT COVID-19
--- NOTE | 2019-09-14 19:28 | NUR ---
HAND-OFF: Report given to LUIS FERNANDO Luna.
--- NOTE | 2019-09-14 19:30 | NUR ---
NURSE NOTES: Received patient in no apparent distress. A&OX1, confused. Noticed patient removed IV. Bed in lowest position. Call light within reach. Will continue to monitor.
[2019-09-14 20:00] VITALS: BP 151/57
[2019-09-14] MEDS: TraZODone HCl 25 mg tablet ORAL SCH (21:22)
[2019-09-15] VITALS: BP 134/51
--- NOTE | 2019-09-15 00:15 | Progress Note ---
DATE: 09/14/2019 SUBJECTIVE: Patient is much calmer. Manageable on . No behavior issues at this time. Has some episodes of anxiety. He is awaiting placement. MENTAL STATUS EXAMINATION: Patient is alert, disoriented. Mood is neutral. Affect is flat. Thought process is concrete. Thought content, no suicidal or homicidal ideation. Cognition is impaired. Insight and judgment is impaired. ASSESSMENT: Stable. PLAN: 1. Continue current care. 2. Discussed with nurse. Loco Luu M.D. DR: TONYA JOB#: [id number] CC:
--- NOTE | 2019-09-15 02:14 | Progress Note ---
DATE: 09/14/2019 CARDIOLOGY PROGRESS NOTE SUBJECTIVE: Patient remains cooperative. Occasionally wants to get out of bed unassisted. As a result, restraints are placed for safety. His most recent COVID-19 PCR on 09/12/2019 was positive. He remains without hypoxia, fever, chills, or cough. His oral intake remains poor. PHYSICAL EXAMINATION: VITAL SIGNS: Blood pressure 151/57, heart rate 72, respirations 20, afebrile. LUNGS: Bilateral breath sounds with no wheezing or rales. CARDIAC: Irregularly irregular rhythm. Normal S1, S2. A 1/6 systolic apical murmur. ABDOMEN: Soft. EXTREMITIES: No edema. LABORATORY DATA: No new laboratories available. IMPRESSION: 1. COVID-19 pneumonia. 2. Valvular cardiomyopathy. 3. Mitral regurgitation. 4. Pulmonary hypertension. 5. Paroxysmal atrial fibrillation. 6. 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 7. Acute on chronic kidney disease, improved. 8. Dehydration. 9. Hypernatremia. 10. Hyperchloremia. 11. Metabolic and toxic encephalopathies. PLAN: 1. Continue anticoagulation for cardioembolic prophylaxis. 2. Encourage oral intake. 3. Hypotonic IV fluids. 4. Recheck laboratory studies. 5. Titrate anti-failure and antihypertensive regimen. 6. Unable to discharge due to ongoing viral shedding. 7. Remains high risk. Gamaliel Salas M.D. DR: LUISA JOB#: [id number] CC:
[2019-09-15 04:00] VITALS: BP 137/55
[2019-09-15] MEDS: HydrALAZINE 50mg tab ORAL SCH ×3 (05:47→21:27)
[2019-09-15 06:47] LABS: ANION GAP 8 mmol/L (5-15); BLOOD UREA NITROGEN 32 mg/dL (7-18); CARBON DIOXIDE 26 MMOL/L (21-32); CHLORIDE 101 MMOL/L (98-107); CREATININE 1.6 MG/DL (0.55-1.30); POTASSIUM 3.5 MMOL/L (3.5-5.1); SODIUM 135 MMOL/L (136-145)
--- NOTE | 2019-09-15 07:19 | NUR ---
HAND-OFF: Report given to Dyan GOULD.
--- NOTE | 2019-09-15 07:20 | NUR ---
NURSE NOTES: Patient awake, non-verbal, confused; on room air, no sing of distress and shortness of breath; IV Left-Upper arm fluid running; dressing on sacral dry and intact; side rails up x2, breaks engaged, bed at lowest position, bed alarm on; call light within reach; will keep monitoring.
[2019-09-15 08:00] VITALS: BP 148/61
--- NOTE | 2019-09-15 08:57 | General Progress Note ---
Assessment/Plan Problem List: (1) CHF (congestive heart failure) ICD Codes: I50.9 - Heart failure, unspecified SNOMED: 58961133 (2) Renal failure (ARF), acute on chronic ICD Codes: N17.9 - Acute kidney failure, unspecified; N18.9 - Chronic kidney disease, unspecified SNOMED: 053808397 (3) Encephalopathy due to metabolic factor or toxin SNOMED: 098303829 (4) Gross hematuria ICD Codes: R31.0 - Gross hematuria SNOMED: 543065794 (5) Falls frequently ICD Codes: R29.6 - Repeated falls SNOMED: 289974251 (6) Dehydration ICD Codes: E86.0 - Dehydration SNOMED: 15154138 (7) UTI (urinary tract infection) ICD Codes: N39.0 - Urinary tract infection, site not specified SNOMED: 24922624 (8) Anemia ICD Codes: D64.9 - Anemia, unspecified SNOMED: 154538371 Status: stable, progressing, not improved Assessment/Plan: o2 as needed. currently stable on room air. fall precautions. monitor cxr Encourage pos. monitor labs. replace k Anxiolytics as needed. Continue blood pressure treatment. DVT and stress ulcer prophylaxis. Discharge planning to assisted facility on hold for now. will need 2 neg covid tests. Subjective ROS Limited/Unobtainable: Yes Constitutional: Reports: malaise, weakness HEENT: Reports: no symptoms Cardiovascular: Reports: no symptoms Respiratory: Reports: no symptoms Gastrointestinal/Abdominal: Reports: poor appetite, poor fluid intake Genitourinary: Reports: no symptoms Neurologic/Psychiatric: Reports: anxiety, emotional problems, pre-existing deficit Endocrine: Reports: no symptoms Hematologic/Lymphatic: Reports: no symptoms Allergies: Coded Allergies: No Known Allergies (Unverified , 06/05/19) All Systems: reviewed and negative except above Subjective No overnight events. Patient remains intermittently agitated. mostly cooperative with care. Continues to get out of bed unassisted. did not require any anxiolytics last night. COVID-19 PCR on September 11 is still positive. Patient remains asymptomatic without fevers chills or cough. Na trending up. poor fluid intake. Objective Last 24 Hour Vital Signs Date Time Temp Pulse Resp B/P (MAP) Pulse Ox O2 Delivery O2 Flow Rate FiO2 09/15/19 08:00 97.8 62 18 148/61 (90) 98 09/15/19 05:47 137/55 09/15/19 04:00 97.9 63 18 137/55 (82) 98 09/15/19 00:00 98.1 72 18 134/51 (78) 94 09/14/19 21:22 151/57 09/14/19 21:00 Room Air 09/14/19 20:00 98.2 72 20 151/57 (88) 97 09/14/19 16:00 97.8 71 20 146/58 (87) 98 09/14/19 12:47 149/62 09/14/19 12:00 97.3 80 20 149/62 (91) 96 09/14/19 09:19 66 151/80 09/14/19 09:18 151/80 09/14/19 09:00 Room Air Intake and Output 09/14/19 09/15/19 19:00 07:00 Intake Total 1080 ml 1100 ml Balance 1080 ml 1100 ml Intake Oral 480 ml IV Total 600 ml 1100 ml # Voids 3 2 Laboratory Tests 09/15/19 04:00: Sodium Level 135L, Potassium Level 3.5, Chloride Level 101, Carbon Dioxide Level 26, Anion Gap 8, Blood Urea Nitrogen 32H, Creatinine 1.6H, Estimat Glomerular Filtration Rate 41.4, Glucose Level 90, Uric Acid 4.7, Calcium Level 10.0, Magnesium Level 2.0, Pro-B-Type Natriuretic Peptide 6139H 09/15/19 04:08: Phosphorus Level [Pending] Height (Feet): 5 Height (Inches): 6.00 Weight (Pounds): 89 Objective General Appearance: WD/WN, alert, confused Neck: supple Cardiovascular: regular rhythm Respiratory/Chest: rhonchi - bilaterally Abdomen: normal bowel sounds, non tender, soft, no organomegaly, no mass Edema: no edema noted Arm (L), no edema noted Arm (R), no edema noted Leg (L), no edema noted Leg (R), no edema noted Pedal (L), no edema noted Pedal (R), no edema noted 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
[2019-09-15] MEDS: Ascorbic Acid 500mg tab ORAL SCH (09:22)
[2019-09-15] MEDS: Valproic Acid 250mg/5ml Liquid NG SCH ×2 (09:22→21:26)
[2019-09-15] MEDS: Imdur 30mg tab ORAL SCH (09:23)
[2019-09-15] MEDS: Eliquis 2.5mg tablet ORAL SCH ×2 (09:23→21:27)
[2019-09-15] MEDS: Tamsulosin 0.4mg cap ORAL SCH ×2 (09:23→17:27)
--- NOTE | 2019-09-15 10:01 | Urology Progress Note ---
Assessment/Plan Status: stable, progressing, not improved Assessment/Plan: 1. Gross hematuria hx, presumably secondary to Doshi trauma, resolved. 2. BPH. 3. Urinary retention. 4. Neurogenic bladder. 5. Pyuria?UTI/colonized. 6. Proteinuria. 7. Renal insufficiency, which appears to be acute on chronic. 8. Rule out urethral stricture. monitor clinically doshi out, voiding/incontinent on proscar and flomax s/p abx restraints PRN cysto at some point monitor PVR and reinsert doshi PRN renal imaging? COVID (+) Eliquis resumed monitor for bleeding Subjective Allergies: Coded Allergies: No Known Allergies (Unverified , 06/05/19) Subjective all noted, confused, doshi out, incontinent, condom cath Objective Last 24 Hour Vital Signs Date Time Temp Pulse Resp B/P (MAP) Pulse Ox O2 Delivery O2 Flow Rate FiO2 09/15/19 09:23 148/61 09/15/19 09:23 62 148/61 09/15/19 08:00 97.8 62 18 148/61 (90) 98 09/15/19 05:47 137/55 09/15/19 04:00 97.9 63 18 137/55 (82) 98 09/15/19 00:00 98.1 72 18 134/51 (78) 94 09/14/19 21:22 151/57 09/14/19 21:00 Room Air 09/14/19 20:00 98.2 72 20 151/57 (88) 97 09/14/19 16:00 97.8 71 20 146/58 (87) 98 09/14/19 12:47 149/62 09/14/19 12:00 97.3 80 20 149/62 (91) 96 Intake and Output 09/14/19 09/15/19 18:59 06:59 Intake Total 1080 ml 1100 ml Balance 1080 ml 1100 ml Intake Oral 480 ml IV Total 600 ml 1100 ml # Voids 3 2 Microbiology Date/Time Source Procedure Growth Status 09/12/19 11:30 Nasopharynx Coronavirus COVID-19 PCR (JOSÉ LUIS) - Final Complete 08/28/19 12:31 Indwelling Cath Urine Culture - Final Pseudomonas Aeruginosa Raoultella Planticola Complete 08/06/19 04:45 Rectum VRE Culture - Final NO VANCOMYCIN RESISTANT ENTEROCOCCUS ... Complete Current Medications Medications (Trade) Dose Ordered Sig/Kristine Route PRN Reason Start Time Stop Time Status Last Admin Dose Admin Acetaminophen (Tylenol) 650 mg Q4H PRN ORAL Fever 09/09/19 22:30 10/09/19 22:29 09/09/19 22:42 Amlodipine Besylate (Norvasc) 10 mg DAILY ORAL 09/10/19 09:00 09/28/19 08:59 09/15/19 09:23 Apixaban (Eliquis) 2.5 mg BID@0900,2100 ORAL 09/09/19 21:00 12/06/19 08:59 09/15/19 09:23 Ascorbic Acid (Vitamin C) 250 mg DAILY ORAL 09/10/19 09:00 10/10/19 08:59 09/15/19 09:22 Calcitonin [place] (Miacalcin) 1 sprays DAILY NASAL 09/12/19 13:00 12/11/19 12:59 09/15/19 09:28 Dextrose 1,000 ml @ 100 mls/hr Q10H IV 09/12/19 21:31 10/12/19 21:30 09/15/19 09:28 Escitalopram Oxalate (Lexapro) 5 mg DAILY ORAL 09/10/19 09:00 10/09/19 08:59 09/15/19 09:22 Famotidine (Pepcid) 20 mg DAILY ORAL 09/10/19 09:00 12/09/19 08:59 09/15/19 09:22 Finasteride (Proscar) 5 mg DAILY ORAL 09/10/19 09:00 11/05/19 15:44 09/15/19 09:22 Hydralazine HCl (Apresoline) 50 mg Q8HR ORAL 09/12/19 22:00 12/11/19 21:59 09/15/19 05:47 Isosorbide Mononitrate (Imdur) 30 mg DAILY ORAL 09/10/19 09:00 10/10/19 08:59 09/15/19 09:23 Lorazepam (Ativan 2mg/ml 1ml) 1 mg Q4H PRN IV For Anxiety 09/09/19 22:30 09/16/19 22:29 09/13/19 04:26 Magnesium Hydroxide (Mom) 30 ml TIDPRN PRN ORAL Constipation 09/09/19 13:00 10/09/19 12:59 Multivitamins (Multivitamins) 1 tab DAILY ORAL 09/10/19 09:00 10/10/19 08:59 09/15/19 09:23 Potassium Chloride (K-Dur) 20 meq ONCE ORAL 09/15/19 09:00 09/15/19 10:00 09/15/19 09:23 Tamsulosin HCl (Flomax) 0.4 mg BID ORAL 09/12/19 12:00 10/06/19 20:59 09/15/19 09:23 Trazodone HCl (Desyrel) 25 mg BEDTIME ORAL 09/09/19 21:00 10/09/19 20:59 09/14/19 21:22 Valproic Acid (Depakene) 250 mg EVERY 12 HOURS NG 09/09/19 21:00 10/22/19 20:59 09/15/19 09:22 Laboratory Tests 09/15/19 04:00: Sodium Level 135L, Potassium Level 3.5, Chloride Level 101, Carbon Dioxide Level 26, Anion Gap 8, Blood Urea Nitrogen 32H, Creatinine 1.6H, Estimat Glomerular Filtration Rate 41.4, Glucose Level 90, Uric Acid 4.7, Calcium Level 10.0, Magnesium Level 2.0, Pro-B-Type Natriuretic Peptide 6139H 09/15/19 04:08: Phosphorus Level 3.0 Height (Feet): 5 Height (Inches): 6.00 Weight (Pounds): 89 Objective exam stable abdomen soft urine grossly yellow Miki Calzada MD Sep 15, 2019 10:01
--- NOTE | 2019-09-15 11:52 | NUR ---
*-*INSURANCE*-* UPDATED CLINICALS AND REVIEWS HAVE BEEN FACXED TO: [facility] ARAGON:GLENIS P: [phone] F: [phone] REF# [id number]
[2019-09-15 12:00] VITALS: BP 139/65
--- NOTE | 2019-09-15 12:15 | Pulmonology Progress Note ---
Assessment/Plan Assessment/Plan IMPRESSION: 1. Pleural effusions, small bilateral. 2. Atelectasis. 3. Pulmonary edema, questionable. 4. Hypertension. 5. Hyperlipidemia. 6. positive COVID 19 7. 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 No new recommendations Kimani Hahn M.D. Subjective ROS Limited/Unobtainable: Yes Interval Events: None new reported Constitutional: Denies: fever HEENT: Repors: no symptoms Respiratory: Reports: no symptoms Cardiovascular: Reports: no symptoms Gastrointestinal/Abdominal: Denies: nausea, vomiting, diarrhea Genitourinary: Reports: no symptoms; Denies: dysuria, hematuria, frequency, nocturia, urgency, other Neurologic: Reports: no symptoms Musculoskeletal: Denies: no symptoms, pain, swelling, stiffness, other Allergies: Coded Allergies: No Known Allergies (Unverified , 06/05/19) All Systems: reviewed and negative except above Objective Last 24 Hour Vital Signs Date Time Temp Pulse Resp B/P (MAP) Pulse Ox O2 Delivery O2 Flow Rate FiO2 09/15/19 09:23 148/61 09/15/19 09:23 62 148/61 09/15/19 09:00 Room Air 09/15/19 08:00 97.8 62 18 148/61 (90) 98 09/15/19 05:47 137/55 09/15/19 04:00 97.9 63 18 137/55 (82) 98 09/15/19 00:00 98.1 72 18 134/51 (78) 94 09/14/19 21:22 151/57 09/14/19 21:00 Room Air 09/14/19 20:00 98.2 72 20 151/57 (88) 97 09/14/19 16:00 97.8 71 20 146/58 (87) 98 09/14/19 12:47 149/62 Intake and Output 09/14/19 09/15/19 19:00 07:00 Intake Total 1080 ml 1100 ml Balance 1080 ml 1100 ml Intake Oral 480 ml IV Total 600 ml 1100 ml # Voids 3 2 General Appearance: no acute distress, cachetic HEENT: mucous membranes moist Respiratory/Chest: chest wall non-tender, lungs clear Cardiovascular: normal peripheral pulses Abdomen: soft, non tender Extremities: no edema Neurologic/Psychiatric: disoriented Laboratory Tests 09/15/19 04:00: Sodium Level 135L, Potassium Level 3.5, Chloride Level 101, Carbon Dioxide Level 26, Anion Gap 8, Blood Urea Nitrogen 32H, Creatinine 1.6H, Estimat Glomerular Filtration Rate 41.4, Glucose Level 90, Uric Acid 4.7, Calcium Level 10.0, Magnesium Level 2.0, Pro-B-Type Natriuretic Peptide 6139H 09/15/19 04:08: Phosphorus Level 3.0 Current Medications Medications (Trade) Dose Ordered Sig/Kristine Route PRN Reason Start Time Stop Time Status Last Admin Dose Admin Acetaminophen (Tylenol) 650 mg Q4H PRN ORAL Fever 09/09/19 22:30 10/09/19 22:29 09/09/19 22:42 Amlodipine Besylate (Norvasc) 10 mg DAILY ORAL 09/10/19 09:00 09/28/19 08:59 09/15/19 09:23 Apixaban (Eliquis) 2.5 mg BID@0900,2100 ORAL 09/09/19 21:00 12/06/19 08:59 09/15/19 09:23 Ascorbic Acid (Vitamin C) 250 mg DAILY ORAL 09/10/19 09:00 10/10/19 08:59 09/15/19 09:22 Calcitonin [place] (Miacalcin) 1 sprays DAILY NASAL 09/12/19 13:00 12/11/19 12:59 09/15/19 09:28 Dextrose 1,000 ml @ 100 mls/hr Q10H IV 09/12/19 21:31 10/12/19 21:30 09/15/19 09:28 Escitalopram Oxalate (Lexapro) 5 mg DAILY ORAL 09/10/19 09:00 10/09/19 08:59 09/15/19 09:22 Famotidine (Pepcid) 20 mg DAILY ORAL 09/10/19 09:00 12/09/19 08:59 09/15/19 09:22 Finasteride (Proscar) 5 mg DAILY ORAL 09/10/19 09:00 11/05/19 15:44 09/15/19 09:22 Hydralazine HCl (Apresoline) 50 mg Q8HR ORAL 09/12/19 22:00 12/11/19 21:59 09/15/19 05:47 Isosorbide Mononitrate (Imdur) 30 mg DAILY ORAL 09/10/19 09:00 10/10/19 08:59 09/15/19 09:23 Lorazepam (Ativan 2mg/ml 1ml) 1 mg Q4H PRN IV For Anxiety 09/09/19 22:30 09/16/19 22:29 09/13/19 04:26 Magnesium Hydroxide (Mom) 30 ml TIDPRN PRN ORAL Constipation 09/09/19 13:00 10/09/19 12:59 Multivitamins (Multivitamins) 1 tab DAILY ORAL 09/10/19 09:00 10/10/19 08:59 09/15/19 09:23 Tamsulosin HCl (Flomax) 0.4 mg BID ORAL 09/12/19 12:00 10/06/19 20:59 09/15/19 09:23 Trazodone HCl (Desyrel) 25 mg BEDTIME ORAL 09/09/19 21:00 10/09/19 20:59 09/14/19 21:22 Valproic Acid (Depakene) 250 mg EVERY 12 HOURS NG 09/09/19 21:00 10/22/19 20:59 09/15/19 09:22 Kimani Hahn MD Sep 15, 2019 12:15
--- NOTE | 2019-09-15 12:41 | Nephrology Progress Note ---
Assessment/Plan Problem List: (1) Renal failure (ARF), acute on chronic Assessment: Serum creatinine stabilizing (2) Falls frequently (3) UTI (urinary tract infection) Assessment: and hematuria (4) Anemia (5) Dehydration (6) Encephalopathy due to metabolic factor or toxin (7) Hypercalcemia Assessment Frequent falls Acute renal failure with underlying dehydration Anemia, underlying etiology unclear UTI (urinary tract infection) Toxic metabolic encephalopathy Plan Serum creatinine overall stable vacillating between 1.7- to 2 Watch serum calcium, start calcitonin nasal spray for hypercalcemia Increase hydralazine dose for better blood pressure control Patient now COVID-19 positive Start D5W for hypernatremia as needed P.o. intake variable Oral potassium supplement as needed previously: Increase Flomax to twice daily Correct electrolytes as needed Transfusion as needed 2D echocardiogram ejection fraction 60% Kidney ultrasound pending results Monitor renal parameters Avoid nephrotoxics Antibiotics for UTI Continue per consultants Subjective ROS Limited/Unobtainable: No Constitutional: Reports: malaise Objective Objective Last 24 Hour Vital Signs Date Time Temp Pulse Resp B/P (MAP) Pulse Ox O2 Delivery O2 Flow Rate FiO2 09/15/19 12:00 98.2 65 18 139/65 (89) 98 09/15/19 09:23 148/61 09/15/19 09:23 62 148/61 09/15/19 09:00 Room Air 09/15/19 08:00 97.8 62 18 148/61 (90) 98 09/15/19 05:47 137/55 09/15/19 04:00 97.9 63 18 137/55 (82) 98 09/15/19 00:00 98.1 72 18 134/51 (78) 94 09/14/19 21:22 151/57 09/14/19 21:00 Room Air 09/14/19 20:00 98.2 72 20 151/57 (88) 97 09/14/19 16:00 97.8 71 20 146/58 (87) 98 09/14/19 12:47 149/62 Intake and Output 09/14/19 09/15/19 19:00 07:00 Intake Total 1080 ml 1100 ml Balance 1080 ml 1100 ml Intake Oral 480 ml IV Total 600 ml 1100 ml # Voids 3 2 Laboratory Tests 09/15/19 04:00: Sodium Level 135L, Potassium Level 3.5, Chloride Level 101, Carbon Dioxide Level 26, Anion Gap 8, Blood Urea Nitrogen 32H, Creatinine 1.6H, Estimat Glomerular Filtration Rate 41.4, Glucose Level 90, Uric Acid 4.7, Calcium Level 10.0, Magnesium Level 2.0, Pro-B-Type Natriuretic Peptide 6139H 09/15/19 04:08: Phosphorus Level 3.0 Height (Feet): 5 Height (Inches): 6.00 Weight (Pounds): 89 General Appearance: no apparent distress Cardiovascular: normal rate Respiratory/Chest: decreased breath sounds Abdomen: distended Objective No change Juan Jade MD Sep 15, 2019 12:41
--- NOTE | 2019-09-15 13:10 | Infectious Diseases Prog Note ---
Assessment/Plan Assessment/Plan A 1. COVID 19 pneumonia test + on 4.14.20, 4.16.20, 09/06 2. Pseudomonas and Raoultella urinary tract infection s/p rx 3. Renal failure. 4. hypertension 5. cardiomyopathy P 1. observe off antibiotics 2. will follow up COVID test 3. Continue isolation Subjective ROS Limited/Unobtainable: Yes Allergies: Coded Allergies: No Known Allergies (Unverified , 06/05/19) Objective Vital Signs Last 24 Hour Vital Signs Date Time Temp Pulse Resp B/P (MAP) Pulse Ox O2 Delivery O2 Flow Rate FiO2 09/15/19 13:00 139/65 09/15/19 12:00 98.2 65 18 139/65 (89) 98 09/15/19 09:23 148/61 09/15/19 09:23 62 148/61 09/15/19 09:00 Room Air 09/15/19 08:00 97.8 62 18 148/61 (90) 98 09/15/19 05:47 137/55 09/15/19 04:00 97.9 63 18 137/55 (82) 98 09/15/19 00:00 98.1 72 18 134/51 (78) 94 09/14/19 21:22 151/57 09/14/19 21:00 Room Air 09/14/19 20:00 98.2 72 20 151/57 (88) 97 09/14/19 16:00 97.8 71 20 146/58 (87) 98 Height (Feet): 5 Height (Inches): 6.00 Weight (Pounds): 89 General Appearance: no acute distress HEENT: mucous membranes moist Respiratory/Chest: lungs clear Cardiovascular: normal rate Abdomen: soft, non tender Extremities: no edema Laboratory Tests Test 09/15/19 04:00 09/15/19 04:08 Sodium Level 135 MMOL/L (136-145) L Potassium Level 3.5 MMOL/L (3.5-5.1) Chloride Level 101 MMOL/L (98-107) Carbon Dioxide Level 26 MMOL/L (21-32) Anion Gap 8 mmol/L (5-15) Blood Urea Nitrogen 32 mg/dL (7-18) H Creatinine 1.6 MG/DL (0.55-1.30) H Estimat Glomerular Filtration Rate 41.4 mL/min (>60) Glucose Level 90 MG/DL (74-106) Uric Acid 4.7 MG/DL (2.6-7.2) Calcium Level 10.0 MG/DL (8.5-10.1) Magnesium Level 2.0 MG/DL (1.8-2.4) Pro-B-Type Natriuretic Peptide 6139 pg/mL (0-125) H Phosphorus Level 3.0 MG/DL (2.5-4.9) Current Medications Medications (Trade) Dose Ordered Sig/Kristine Route PRN Reason Start Time Stop Time Status Last Admin Dose Admin Acetaminophen (Tylenol) 650 mg Q4H PRN ORAL Fever 09/09/19 22:30 10/09/19 22:29 09/09/19 22:42 Amlodipine Besylate (Norvasc) 10 mg DAILY ORAL 09/10/19 09:00 09/28/19 08:59 09/15/19 09:23 Apixaban (Eliquis) 2.5 mg BID@0900,2100 ORAL 09/09/19 21:00 12/06/19 08:59 09/15/19 09:23 Ascorbic Acid (Vitamin C) 250 mg DAILY ORAL 09/10/19 09:00 10/10/19 08:59 09/15/19 09:22 Calcitonin [place] (Miacalcin) 1 sprays DAILY NASAL 09/12/19 13:00 12/11/19 12:59 09/15/19 09:28 Dextrose 1,000 ml @ 100 mls/hr Q10H IV 09/12/19 21:31 10/12/19 21:30 09/15/19 09:28 Escitalopram Oxalate (Lexapro) 5 mg DAILY ORAL 09/10/19 09:00 10/09/19 08:59 09/15/19 09:22 Famotidine (Pepcid) 20 mg DAILY ORAL 09/10/19 09:00 12/09/19 08:59 09/15/19 09:22 Finasteride (Proscar) 5 mg DAILY ORAL 09/10/19 09:00 11/05/19 15:44 09/15/19 09:22 Hydralazine HCl (Apresoline) 50 mg Q8HR ORAL 09/12/19 22:00 12/11/19 21:59 09/15/19 13:00 Isosorbide Mononitrate (Imdur) 30 mg DAILY ORAL 09/10/19 09:00 10/10/19 08:59 09/15/19 09:23 Lorazepam (Ativan 2mg/ml 1ml) 1 mg Q4H PRN IV For Anxiety 09/09/19 22:30 09/16/19 22:29 09/13/19 04:26 Magnesium Hydroxide (Mom) 30 ml TIDPRN PRN ORAL Constipation 09/09/19 13:00 10/09/19 12:59 Multivitamins (Multivitamins) 1 tab DAILY ORAL 09/10/19 09:00 10/10/19 08:59 09/15/19 09:23 Tamsulosin HCl (Flomax) 0.4 mg BID ORAL 09/12/19 12:00 10/06/19 20:59 09/15/19 09:23 Trazodone HCl (Desyrel) 25 mg BEDTIME ORAL 09/09/19 21:00 10/09/19 20:59 09/14/19 21:22 Valproic Acid (Depakene) 250 mg EVERY 12 HOURS NG 09/09/19 21:00 10/22/19 20:59 09/15/19 09:22 Cr Mauro MD Sep 15, 2019 13:10
--- NOTE | 2019-09-15 13:21 | NUR ---
*-*DISCHARGE PLANNING*-* PATIENT HAS BEEN REFERRED TO: [facility] P: [phone] S/W [facility], NOT ACCEPTING, ON BED LOCK & ANKITA CHANDLER P: [phone] S/W [facility], WAITING TO RECEIVE REFERRAL.
--- NOTE | 2019-09-15 14:25 | NUR ---
P.T Weekly Progress Notes: Pt was being seen for skilled P.T services for the past 1 month. Pt responded poorly during the course of therapy. Progressed has been limited by medical and cognitive issues resulting to resistance and poor carry over of instructions to perform mobility tasks. Pt remained MAX A for Bed mobilities and Total Assist for transfer mobilities. Pt was able to sit with MOD support at the EOB however unable stand. Overall poor activity tolerance. Progress has plateaued and pt no longer benefiting from skilled P.TY services at this time. Recommend DC to rn long term care SNF for total care. Addendum: 09/15/19 at 1434 by CONY JAMESON PT P.T Weekly Progress Notes: Pt was being seen for skilled P.T services for the past 1 month. Pt responded poorly during the course of therapy. Progressed has been limited by medical and cognitive issues resulting to resistance and poor carry over of instructions to perform mobility tasks. Pt remained MAX A for Bed mobilities and Total Assist for transfer mobilities. Pt was able to sit with MOD support at the EOB however unable stand. Overall poor activity tolerance. Progress has plateaued and pt no longer benefiting from skilled P.TY services at this time. Recommend DC to rn long term care SNF for total care. DC P.T services.
[2019-09-15 16:00] VITALS: BP 131/60
--- NOTE | 2019-09-15 16:58 | Surgery Progress Note ---
Surgery Progress Note Subjective Additional Comments no acute events labs noted stable Objective Last 24 Hour Vital Signs Date Time Temp Pulse Resp B/P (MAP) Pulse Ox O2 Delivery O2 Flow Rate FiO2 09/15/19 16:00 97.9 60 18 131/60 (83) 97 09/15/19 13:00 139/65 09/15/19 12:00 98.2 65 18 139/65 (89) 98 09/15/19 09:23 148/61 09/15/19 09:23 62 148/61 09/15/19 09:00 Room Air 09/15/19 08:00 97.8 62 18 148/61 (90) 98 09/15/19 05:47 137/55 09/15/19 04:00 97.9 63 18 137/55 (82) 98 09/15/19 00:00 98.1 72 18 134/51 (78) 94 09/14/19 21:22 151/57 09/14/19 21:00 Room Air 09/14/19 20:00 98.2 72 20 151/57 (88) 97 I&O Intake and Output 09/14/19 09/15/19 19:00 07:00 Intake Total 1080 ml 1100 ml Balance 1080 ml 1100 ml Intake Oral 480 ml IV Total 600 ml 1100 ml # Voids 3 2 Dressing: other Wound: other Drains: other Cardiovascular: RSR Respiratory: decreased breath sounds Abdomen: soft, non-tender, present bowel sounds Extremities: no tenderness, no cyanosis Laboratory Tests Test 09/15/19 04:00 09/15/19 04:08 Sodium Level 135 MMOL/L (136-145) L Potassium Level 3.5 MMOL/L (3.5-5.1) Chloride Level 101 MMOL/L (98-107) Carbon Dioxide Level 26 MMOL/L (21-32) Anion Gap 8 mmol/L (5-15) Blood Urea Nitrogen 32 mg/dL (7-18) H Creatinine 1.6 MG/DL (0.55-1.30) H Estimat Glomerular Filtration Rate 41.4 mL/min (>60) Glucose Level 90 MG/DL (74-106) Uric Acid 4.7 MG/DL (2.6-7.2) Calcium Level 10.0 MG/DL (8.5-10.1) Magnesium Level 2.0 MG/DL (1.8-2.4) Pro-B-Type Natriuretic Peptide 6139 pg/mL (0-125) H Phosphorus Level 3.0 MG/DL (2.5-4.9) Plan Problems: (1) Dehydration (2) Anemia (3) UTI (urinary tract infection) (4) Falls frequently (5) Renal failure (ARF), acute on chronic (6) Encephalopathy due to metabolic factor or toxin (7) CHF (congestive heart failure) (8) Gross hematuria (9) Deep tissue injury Assessment & Plan: Pt presented on admission with multiple pressure injuries which were resolving. 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 Base of injury is purple with maroon borders . Surrounding non-blanching erythema to R and Gluteal cheeks. Scrotum is erythematous. R and L heels are boggy but each area blanchable. Tx.Plan: Apply Moisture Barrier Paste to Sacrum. Cover with Optifoam drsg. Change every 3 days and prn. Apply Moisture Barrier Paste to bilat groin and scrotum with each incontinence care. Apply Cavilon Skin Barrier to both heels. Cover each heel with Optifoam drsg. Change every 7 days and prn. Reposition at least every 2hours or as tolerated. Off-load heels with pillow. APM/MEI Mattress overlay. (10) Malnutrition Assessment & Plan: DAILY ESTIMATED NEEDS: Needs based on Wound, 66.8kg 28-33 kcals/kg 4559-5277 total kcals 1.25-1.5 g protein/kg 84-100 g total protein 25-30 mL/kg 4468-6689 total fluid mLs NUTRITION DIAGNOSIS: Swallowing difficulty r/t dysphagia and ams as evidenced by s/p [employer] eval, poor cognition, pt on liquify puree texture diet w/ HTL, now with improved intake. CURRENT DIET: Liquify puree HTL Regular PO DIET RECOMMENDATIONS: Maintain Regular diet, texture per [employer] ADDITIONAL RECOMMENDATIONS: 1) Ensure Enlive TID w/ meals (350kcal/20g prot per bottle) 2) Maintain calibrated bed scale wts EMR wt: 160# vs Bed scale wt: 147#-> bed now reads 109.8# 3) Consider D5 IVF (vs 1/2 NS running currently)- Na elevated to prevent hypoglycemia given poor/variable PO 4) Wound care: MVI 1 tab QD + Vit C 250mg QD+ Jacob BID 5) Monitor lytes, replete as needed (11) Severe protein-calorie malnutrition Sai Aaron Sep 15, 2019 16:57
[2019-09-15] MEDS: LORazepam Inj 2mg/ml 1ml IV PRN (18:23)
--- NOTE | 2019-09-15 19:23 | NUR ---
HAND-OFF: Report given to LUIS FERNANDO Luna.
--- NOTE | 2019-09-15 19:30 | NUR ---
NURSE NOTES: Received patient in no apparent distress. A&OX1, confused. IV site patent and intact. Bed in lowest position. Call light within reach. Will continue to monitor.
[2019-09-15 20:00] VITALS: BP 113/55
[2019-09-15] MEDS: TraZODone HCl 25 mg tablet ORAL SCH (21:27)
[2019-09-16] VITALS: BP 96/63
--- NOTE | 2019-09-16 00:45 | Progress Note ---
DATE: 09/15/2019 SUBJECTIVE: The patient is in bed. No behavior issues noted. Today calmer, manageable. The patient is improving. MENTAL STATUS EXAMINATION: Alert and disoriented. Mood is neutral. Affect is flat. Thought process is concrete. Thought content, no suicidal or homicidal ideation. Cognition is impaired. ASSESSMENT: 1. Dementia. 2. Metabolic encephalopathy, improved. PLAN: Continue Depakote. Loco Luu M.D. DR: Ingrid JOB#: [id number] CC:
[2019-09-16 04:00] VITALS: BP 127/69
--- NOTE | 2019-09-16 04:59 | Progress Note ---
DATE: 09/15/2019 CARDIOLOGY PROGRESS NOTE SUBJECTIVE: No new events. Cooperative with care. No fevers or chills. No cough or shortness of breath. PHYSICAL EXAMINATION: VITAL SIGNS: Blood pressure 148/61, pulse 62, respirations 18, afebrile. LUNGS: Clear breath sounds. CARDIAC: Irregularly irregular. Normal S1, S2. A 1/6 systolic murmur at apex. ABDOMEN: soft. EXTREMITIES: No edema. LABORATORY DATA: Phosphorus is 3, magnesium is 2, potassium 3.5, uric acid 4.7. Pro-natriuretic peptide 6139, decreasing. IMPRESSION: 1. COVID-19 pneumonia. 2. Chronic kidney disease. 3. Hypertensive heart disease. 4. Mitral valve regurgitation, status post repair. 5. Pulmonary hypertension. 6. Paroxysmal atrial fibrillation with underlying conduction system disease. PLAN: 1. We will maintain current cardiovascular regimen. 2. Monitor electrolytes closely. 3. Replace potassium as needed. 4. Await clearance of virus before discharge can be initiated. Gamaliel Salas M.D. DR: KELLY JOB#: [id number] CC:
[2019-09-16] MEDS: HydrALAZINE 50mg tab ORAL SCH ×3 (05:26→21:52)
--- NOTE | 2019-09-16 07:30 | NUR ---
HAND-OFF: Report given to Adal GOULD.
--- NOTE | 2019-09-16 07:33 | NUR ---
NURSE NOTES: received report from LUIS FERNANDO Marcus. patient in bed. disoriented. verbally responsive. no respiratory distress noted.on room air. no pain at this time. IV on MAKENNA running D5w@100/hr. bed in the lowest position and locked. call light within reach. alarm on. contacta and droplet precaution d/t covid positive. pending result anther test on 09/14/19. will continue to provide plan of care.
[2019-09-16 08:00] VITALS: BP 128/58
--- NOTE | 2019-09-16 08:04 | General Progress Note ---
Assessment/Plan Problem List: (1) CHF (congestive heart failure) ICD Codes: I50.9 - Heart failure, unspecified SNOMED: 59154907 (2) Renal failure (ARF), acute on chronic ICD Codes: N17.9 - Acute kidney failure, unspecified; N18.9 - Chronic kidney disease, unspecified SNOMED: 023993226 (3) Encephalopathy due to metabolic factor or toxin SNOMED: 815829375 (4) Gross hematuria ICD Codes: R31.0 - Gross hematuria SNOMED: 472073906 (5) Falls frequently ICD Codes: R29.6 - Repeated falls SNOMED: 811090454 (6) Dehydration ICD Codes: E86.0 - Dehydration SNOMED: 64110609 (7) UTI (urinary tract infection) ICD Codes: N39.0 - Urinary tract infection, site not specified SNOMED: 56621110 (8) Anemia ICD Codes: D64.9 - Anemia, unspecified SNOMED: 558513250 Status: stable, progressing, not improved Assessment/Plan: o2 as needed. currently stable on room air. fall precautions. monitor cxr Encourage pos. monitor labs. decrease ivf repeat bmp today monitor Na Anxiolytics as needed. Continue blood pressure treatment. DVT and stress ulcer prophylaxis. [facility] on [facility] for now. will need 2 neg covid tests. Subjective ROS Limited/Unobtainable: Yes Constitutional: Reports: malaise, weakness HEENT: Reports: no symptoms Cardiovascular: Reports: no symptoms Respiratory: Reports: no symptoms Gastrointestinal/Abdominal: Reports: poor appetite, poor fluid intake Genitourinary: Reports: no symptoms Neurologic/Psychiatric: Reports: anxiety, emotional problems Endocrine: Reports: no symptoms Hematologic/Lymphatic: Reports: anemia Allergies: Coded Allergies: No Known Allergies (Unverified , 06/05/19) All Systems: reviewed and negative except above Subjective no events. remains confused and anxious. on ivf. decreased NA yesterday. no fevers. no cough or sob. poor po intake Objective Last 24 Hour Vital Signs Date Time Temp Pulse Resp B/P (MAP) Pulse Ox O2 Delivery O2 Flow Rate FiO2 09/16/19 05:26 127/69 09/16/19 04:00 97.8 87 20 127/69 (88) 95 09/16/19 00:00 97.5 65 20 96/63 (74) 97 09/15/19 21:27 113/55 09/15/19 21:00 Room Air 09/15/19 20:00 97.7 64 20 113/55 (74) 96 09/15/19 16:00 97.9 60 18 131/60 (83) 97 09/15/19 13:00 139/65 09/15/19 12:00 98.2 65 18 139/65 (89) 98 09/15/19 09:23 148/61 09/15/19 09:23 62 148/61 09/15/19 09:00 Room Air Intake and Output 09/15/19 09/16/19 19:00 07:00 Intake Total 1420 ml 900 ml Output Total 400 ml 900 ml Balance 1020 ml 0 ml Intake Oral 220 ml IV Total 1200 ml 900 ml Output Urine Total 400 ml 900 ml # Voids 1 Height (Feet): 5 Height (Inches): 6.00 Weight (Pounds): 89 Objective General Appearance: WD/WN, alert, confused Neck: supple Cardiovascular: regular rhythm Respiratory/Chest: rhonchi - bilaterally Abdomen: normal bowel sounds, non tender, soft, no organomegaly, no mass Edema: no edema noted Arm (L), no edema noted Arm (R), no edema noted Leg (L), no edema noted Leg (R), no edema noted Pedal (L), no edema noted Pedal (R), no edema noted Generalized Neurologic: evs tech II-XII grossly normal, alert, responsive Iggy Echavarria MD September 16, 2019 08:04
[2019-09-16] MEDS: Ascorbic Acid 500mg tab ORAL SCH (08:42)
[2019-09-16] MEDS: Imdur 30mg tab ORAL SCH (08:42)
[2019-09-16] MEDS: Valproic Acid 250mg/5ml Liquid NG SCH ×2 (08:42→20:46)
[2019-09-16] MEDS: Tamsulosin 0.4mg cap ORAL SCH ×2 (08:43→17:57)
[2019-09-16] MEDS: Eliquis 2.5mg tablet ORAL SCH ×2 (08:43→20:46)
[2019-09-16 09:26] LABS: ANION GAP 8 mmol/L (5-15); BLOOD UREA NITROGEN 26 mg/dL (7-18); CARBON DIOXIDE 24 MMOL/L (21-32); CHLORIDE 97 MMOL/L (98-107); CREATININE 1.3 MG/DL (0.55-1.30); POTASSIUM 3.3 MMOL/L (3.5-5.1); SODIUM 129 MMOL/L (136-145)
--- NOTE | 2019-09-16 09:51 | NUR ---
NURSE NOTES: sodium 129, potassium 3.[address] Echavarria and received order dc fluid d5w@50, Give K-dur 40meq PO once. order noted and carried out.
--- NOTE | 2019-09-16 10:56 | Infectious Diseases Prog Note ---
Assessment/Plan Assessment/Plan antibiotics : none A 1. COVID 19 pneumonia test + on 4.14.20, 4.16.20, 4.22.20, 4.27.20 2. Pseudomonas and Raoultella urinary tract infection s/p rx 3. Renal failure. 4. hypertension 5. cardiomyopathy P 1. observe off antibiotics 2. will follow up cultures 3. Continue isolation Subjective ROS Limited/Unobtainable: Yes Allergies: Coded Allergies: No Known Allergies (Unverified , 06/05/19) Objective Vital Signs Last 24 Hour Vital Signs Date Time Temp Pulse Resp B/P (MAP) Pulse Ox O2 Delivery O2 Flow Rate FiO2 09/16/19 09:00 Room Air 09/16/19 08:43 72 128/58 09/16/19 08:42 128/58 09/16/19 08:00 97.5 72 19 128/58 (81) 100 09/16/19 05:26 127/69 09/16/19 04:00 97.8 87 20 127/69 (88) 95 09/16/19 00:00 97.5 65 20 96/63 (74) 97 09/15/19 21:27 113/55 09/15/19 21:00 Room Air 09/15/19 20:00 97.7 64 20 113/55 (74) 96 09/15/19 16:00 97.9 60 18 131/60 (83) 97 09/15/19 13:00 139/65 09/15/19 12:00 98.2 65 18 139/65 (89) 98 Height (Feet): 5 Height (Inches): 6.00 Weight (Pounds): 89 Laboratory Tests Test 09/16/19 09:05 Sodium Level 129 MMOL/L (136-145) L Potassium Level 3.3 MMOL/L (3.5-5.1) L Chloride Level 97 MMOL/L (98-107) L Carbon Dioxide Level 24 MMOL/L (21-32) Anion Gap 8 mmol/L (5-15) Blood Urea Nitrogen 26 mg/dL (7-18) H Creatinine 1.3 MG/DL (0.55-1.30) Estimat Glomerular Filtration Rate 52.6 mL/min (>60) Glucose Level 129 MG/DL (74-106) H Calcium Level 9.0 MG/DL (8.5-10.1) Current Medications Medications (Trade) Dose Ordered Sig/Kristine Route PRN Reason Start Time Stop Time Status Last Admin Dose Admin Acetaminophen (Tylenol) 650 mg Q4H PRN ORAL Fever 09/09/19 22:30 10/09/19 22:29 09/09/19 22:42 Amlodipine Besylate (Norvasc) 10 mg DAILY ORAL 09/10/19 09:00 09/28/19 08:59 09/16/19 08:43 Apixaban (Eliquis) 2.5 mg BID@0900,2100 ORAL 09/09/19 21:00 12/06/19 08:59 09/16/19 08:43 Ascorbic Acid (Vitamin C) 250 mg DAILY ORAL 09/10/19 09:00 10/10/19 08:59 09/16/19 08:42 Calcitonin [place] (Miacalcin) 1 sprays DAILY NASAL 09/12/19 13:00 12/11/19 12:59 09/16/19 08:43 Escitalopram Oxalate (Lexapro) 5 mg DAILY ORAL 09/10/19 09:00 10/09/19 08:59 09/16/19 08:42 Famotidine (Pepcid) 20 mg DAILY ORAL 09/10/19 09:00 12/09/19 08:59 09/16/19 08:42 Finasteride (Proscar) 5 mg DAILY ORAL 09/10/19 09:00 11/05/19 15:44 09/16/19 08:43 Hydralazine HCl (Apresoline) 50 mg Q8HR ORAL 09/12/19 22:00 12/11/19 21:59 09/16/19 05:26 Isosorbide Mononitrate (Imdur) 30 mg DAILY ORAL 09/10/19 09:00 10/10/19 08:59 09/16/19 08:42 Lorazepam (Ativan 2mg/ml 1ml) 1 mg Q4H PRN IV For Anxiety 09/09/19 22:30 09/16/19 22:29 09/15/19 18:23 Magnesium Hydroxide (Mom) 30 ml TIDPRN PRN ORAL Constipation 09/09/19 13:00 10/09/19 12:59 Multivitamins (Multivitamins) 1 tab DAILY ORAL 09/10/19 09:00 10/10/19 08:59 09/16/19 08:43 Potassium Chloride (K-Dur) 40 meq ONCE ORAL 09/16/19 10:00 09/16/19 11:00 09/16/19 10:09 Tamsulosin HCl (Flomax) 0.4 mg BID ORAL 09/12/19 12:00 10/06/19 20:59 09/16/19 08:43 Trazodone HCl (Desyrel) 25 mg BEDTIME ORAL 09/09/19 21:00 10/09/19 20:59 09/15/19 21:27 Valproic Acid (Depakene) 250 mg EVERY 12 HOURS NG 09/09/19 21:00 10/22/19 20:59 09/16/19 08:42 Gonzalez Stephens MD September 16, 2019 10:56
--- NOTE | 2019-09-16 11:12 | NUR ---
*-*INSURANCE*-* UPDATED CLINICALS AND REVIEWS HAVE BEEN FACXED TO: [facility]EN[facility] P: [phone] F: [phone] REF# [id number]
--- NOTE | 2019-09-16 11:35 | Pulmonology Progress Note ---
Assessment/Plan Assessment/Plan IMPRESSION: 1. Pleural effusions, small bilateral. 2. Atelectasis. 3. Pulmonary edema, questionable. 4. Hypertension. 5. Hyperlipidemia. 6. positive COVID 19 7. UTI DISCUSSION: The patient is saturating well on room air I will follow as roustabout crew. No new recommendations Kimani Hahn M.D. Subjective ROS Limited/Unobtainable: Yes Interval Events: None new reported Constitutional: Denies: fever HEENT: Repors: no symptoms Respiratory: Reports: no symptoms Cardiovascular: Reports: no symptoms Gastrointestinal/Abdominal: Denies: nausea, vomiting, diarrhea Genitourinary: Reports: no symptoms; Denies: dysuria, hematuria, frequency, nocturia, urgency, other Neurologic: Reports: no symptoms Musculoskeletal: Denies: no symptoms, pain, swelling, stiffness, other Allergies: Coded Allergies: No Known Allergies (Unverified , 06/05/19) All Systems: reviewed and negative except above Objective Last 24 Hour Vital Signs Date Time Temp Pulse Resp B/P (MAP) Pulse Ox O2 Delivery O2 Flow Rate FiO2 09/16/19 09:00 Room Air 09/16/19 08:43 72 128/58 09/16/19 08:42 128/58 09/16/19 08:00 97.5 72 19 128/58 (81) 100 09/16/19 05:26 127/69 09/16/19 04:00 97.8 87 20 127/69 (88) 95 09/16/19 00:00 97.5 65 20 96/63 (74) 97 09/15/19 21:27 113/55 09/15/19 21:00 Room Air 09/15/19 20:00 97.7 64 20 113/55 (74) 96 09/15/19 16:00 97.9 60 18 131/60 (83) 97 09/15/19 13:00 139/65 09/15/19 12:00 98.2 65 18 139/65 (89) 98 Intake and Output 09/15/19 09/16/19 19:00 07:00 Intake Total 1420 ml 900 ml Output Total 400 ml 900 ml Balance 1020 ml 0 ml Intake Oral 220 ml IV Total 1200 ml 900 ml Output Urine Total 400 ml 900 ml # Voids 1 General Appearance: no acute distress HEENT: mucous membranes moist Respiratory/Chest: chest wall non-tender, lungs clear Cardiovascular: normal peripheral pulses Abdomen: soft, non tender Extremities: no edema Neurologic/Psychiatric: disoriented Laboratory Tests 09/16/19 09:05: Sodium Level 129L, Potassium Level 3.3L, Chloride Level 97L, Carbon Dioxide Level 24, Anion Gap 8, Blood Urea Nitrogen 26H, Creatinine 1.3, Estimat Glomerular Filtration Rate 52.6, Glucose Level 129H, Calcium Level 9.0 Current Medications Medications (Trade) Dose Ordered Sig/Kristine Route PRN Reason Start Time Stop Time Status Last Admin Dose Admin Acetaminophen (Tylenol) 650 mg Q4H PRN ORAL Fever 09/09/19 22:30 10/09/19 22:29 09/09/19 22:42 Amlodipine Besylate (Norvasc) 10 mg DAILY ORAL 09/10/19 09:00 09/28/19 08:59 09/16/19 08:43 Apixaban (Eliquis) 2.5 mg BID@0900,2100 ORAL 09/09/19 21:00 12/06/19 08:59 09/16/19 08:43 Ascorbic Acid (Vitamin C) 250 mg DAILY ORAL 09/10/19 09:00 10/10/19 08:59 09/16/19 08:42 Calcitonin [place] (Miacalcin) 1 sprays DAILY NASAL 09/12/19 13:00 12/11/19 12:59 09/16/19 08:43 Escitalopram Oxalate (Lexapro) 5 mg DAILY ORAL 09/10/19 09:00 10/09/19 08:59 09/16/19 08:42 Famotidine (Pepcid) 20 mg DAILY ORAL 09/10/19 09:00 12/09/19 08:59 09/16/19 08:42 Finasteride (Proscar) 5 mg DAILY ORAL 09/10/19 09:00 11/05/19 15:44 09/16/19 08:43 Hydralazine HCl (Apresoline) 50 mg Q8HR ORAL 09/12/19 22:00 12/11/19 21:59 09/16/19 05:26 Isosorbide Mononitrate (Imdur) 30 mg DAILY ORAL 09/10/19 09:00 10/10/19 08:59 09/16/19 08:42 Lorazepam (Ativan 2mg/ml 1ml) 1 mg Q4H PRN IV For Anxiety 09/09/19 22:30 09/16/19 22:29 09/15/19 18:23 Magnesium Hydroxide (Mom) 30 ml TIDPRN PRN ORAL Constipation 09/09/19 13:00 10/09/19 12:59 Multivitamins (Multivitamins) 1 tab DAILY ORAL 09/10/19 09:00 10/10/19 08:59 09/16/19 08:43 Tamsulosin HCl (Flomax) 0.4 mg BID ORAL 09/12/19 12:00 10/06/19 20:59 09/16/19 08:43 Trazodone HCl (Desyrel) 25 mg BEDTIME ORAL 09/09/19 21:00 10/09/19 20:59 09/15/19 21:27 Valproic Acid (Depakene) 250 mg EVERY 12 HOURS NG 09/09/19 21:00 10/22/19 20:59 09/16/19 08:42 Kimani Hahn MD September 16, 2019 11:35
--- NOTE | 2019-09-16 11:39 | Surgery Progress Note ---
Surgery Progress Note Subjective Additional Comments no acute events Objective Last 24 Hour Vital Signs Date Time Temp Pulse Resp B/P (MAP) Pulse Ox O2 Delivery O2 Flow Rate FiO2 09/16/19 09:00 Room Air 09/16/19 08:43 72 128/58 09/16/19 08:42 128/58 09/16/19 08:00 97.5 72 19 128/58 (81) 100 09/16/19 05:26 127/69 09/16/19 04:00 97.8 87 20 127/69 (88) 95 09/16/19 00:00 97.5 65 20 96/63 (74) 97 09/15/19 21:27 113/55 09/15/19 21:00 Room Air 09/15/19 20:00 97.7 64 20 113/55 (74) 96 09/15/19 16:00 97.9 60 18 131/60 (83) 97 09/15/19 13:00 139/65 09/15/19 12:00 98.2 65 18 139/65 (89) 98 I&O Intake and Output 09/15/19 09/16/19 19:00 07:00 Intake Total 1420 ml 900 ml Output Total 400 ml 900 ml Balance 1020 ml 0 ml Intake Oral 220 ml IV Total 1200 ml 900 ml Output Urine Total 400 ml 900 ml # Voids 1 Dressing: other Wound: other Drains: other Cardiovascular: RSR Respiratory: decreased breath sounds Abdomen: soft, present bowel sounds, non-distended Extremities: no tenderness, no cyanosis Laboratory Tests Test 09/16/19 09:05 Sodium Level 129 MMOL/L (136-145) L Potassium Level 3.3 MMOL/L (3.5-5.1) L Chloride Level 97 MMOL/L (98-107) L Carbon Dioxide Level 24 MMOL/L (21-32) Anion Gap 8 mmol/L (5-15) Blood Urea Nitrogen 26 mg/dL (7-18) H Creatinine 1.3 MG/DL (0.55-1.30) Estimat Glomerular Filtration Rate 52.6 mL/min (>60) Glucose Level 129 MG/DL (74-106) H Calcium Level 9.0 MG/DL (8.5-10.1) Plan Problems: (1) Dehydration (2) Anemia (3) UTI (urinary tract infection) (4) Falls frequently (5) Renal failure (ARF), acute on chronic (6) Encephalopathy due to metabolic factor or toxin (7) CHF (congestive heart failure) (8) Gross hematuria (9) Deep tissue injury Assessment & Plan: Pt presented on admission with multiple pressure injuries which were resolving. 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 Base of injury is purple with maroon borders . Surrounding non-blanching erythema to R and Gluteal cheeks. Scrotum is erythematous. R and L heels are boggy but each area blanchable. Tx.Plan: Apply Moisture Barrier Paste to Sacrum. Cover with Optifoam drsg. Change every 3 days and prn. Apply Moisture Barrier Paste to bilat groin and scrotum with each incontinence care. Apply Cavilon Skin Barrier to both heels. Cover each heel with Optifoam drsg. Change every 7 days and prn. Reposition at least every 2hours or as tolerated. Off-load heels with pillow. APM/MEI Mattress overlay. (10) Malnutrition Assessment & Plan: DAILY ESTIMATED NEEDS: Needs based on Wound, 66.8kg 28-33 kcals/kg 3595-5923 total kcals 1.25-1.5 g protein/kg 84-100 g total protein 25-30 mL/kg 6528-7550 total fluid mLs NUTRITION DIAGNOSIS: Swallowing difficulty r/t dysphagia and ams as evidenced by s/p MATRIX BATH ATTENDANT eval, poor cognition, pt on liquify puree texture diet w/ HTL, now with improved intake. CURRENT DIET: Liquify puree HTL Regular PO DIET RECOMMENDATIONS: Maintain Regular diet, texture per MATRIX BATH ATTENDANT ADDITIONAL RECOMMENDATIONS: 1) Ensure Enlive TID w/ meals (350kcal/20g prot per bottle) 2) Maintain calibrated bed scale wts EMR wt: 160# vs Bed scale wt: 147#-> bed now reads 109.8# 3) Consider D5 IVF (vs 1/2 NS running currently)- Na elevated to prevent hypoglycemia given poor/variable PO 4) Wound care: MVI 1 tab QD + Vit C 250mg QD+ Jacob BID 5) Monitor lytes, replete as needed (11) Severe protein-calorie malnutrition Sai Aaron September 16, 2019 11:39
[2019-09-16 12:00] VITALS: BP 121/57
--- NOTE | 2019-09-16 12:25 | Nephrology Progress Note ---
Assessment/Plan Problem List: (1) Renal failure (ARF), acute on chronic Assessment: Serum creatinine stabilizing (2) Falls frequently (3) UTI (urinary tract infection) Assessment: and hematuria (4) Anemia (5) Dehydration (6) Encephalopathy due to metabolic factor or toxin (7) Hypercalcemia Assessment Frequent falls Acute renal failure with underlying dehydration Anemia, underlying etiology unclear UTI (urinary tract infection) Toxic metabolic encephalopathy Plan Trial of 3% saline 250 cc for hyponatremia Serum creatinine overall stable, it is down to 1.3 Watch serum calcium, start calcitonin nasal spray for hypercalcemia Increase hydralazine dose for better blood pressure control Patient now COVID-19 positive Start D5W for hypernatremia as needed P.o. intake variable Oral potassium supplement as needed previously: Increase Flomax to twice daily Correct electrolytes as needed Transfusion as needed 2D echocardiogram ejection fraction 60% Kidney ultrasound pending results Monitor renal parameters Avoid nephrotoxics Antibiotics for UTI Continue per consultants Subjective ROS Limited/Unobtainable: No Constitutional: Reports: malaise Objective Objective Last 24 Hour Vital Signs Date Time Temp Pulse Resp B/P (MAP) Pulse Ox O2 Delivery O2 Flow Rate FiO2 09/16/19 09:00 Room Air 09/16/19 08:43 72 128/58 09/16/19 08:42 128/58 09/16/19 08:00 97.5 72 19 128/58 (81) 100 09/16/19 05:26 127/69 09/16/19 04:00 97.8 87 20 127/69 (88) 95 09/16/19 00:00 97.5 65 20 96/63 (74) 97 09/15/19 21:27 113/55 09/15/19 21:00 Room Air 09/15/19 20:00 97.7 64 20 113/55 (74) 96 09/15/19 16:00 97.9 60 18 131/60 (83) 97 09/15/19 13:00 139/65 Intake and Output 09/15/19 09/16/19 19:00 07:00 Intake Total 1420 ml 900 ml Output Total 400 ml 900 ml Balance 1020 ml 0 ml Intake Oral 220 ml IV Total 1200 ml 900 ml Output Urine Total 400 ml 900 ml # Voids 1 Laboratory Tests 09/16/19 09:05: Sodium Level 129L, Potassium Level 3.3L, Chloride Level 97L, Carbon Dioxide Level 24, Anion Gap 8, Blood Urea Nitrogen 26H, Creatinine 1.3, Estimat Glomerular Filtration Rate 52.6, Glucose Level 129H, Calcium Level 9.0 Height (Feet): 5 Height (Inches): 6.00 Weight (Pounds): 89 General Appearance: no apparent distress, lethargic Cardiovascular: normal rate Respiratory/Chest: decreased breath sounds Abdomen: soft Objective No change Juan Jade MD September 16, 2019 12:25
[2019-09-16 13:15] LABS: ALANINE AMINOTRANSFERASE 19 U/L (12-78); ALBUMIN 2.1 G/DL (3.4-5.0); ALKALINE PHOSPHATASE 89 U/L (46-116); ASPARTATE AMINO TRANSFERASE 25 U/L (15-37); BILIRUBIN,DIRECT 0.1 MG/DL (0.0-0.3); BILIRUBIN,TOTAL 0.3 MG/DL (0.2-1.0)
[2019-09-16] MEDS ORDERED: NaCl 3% 500ml 250 ML IV ONE (14:00)
--- NOTE | 2019-09-16 14:15 | NUR ---
CASE MANAGEMENT:REVIEW 09/15/19 SI: COVID 19 PNEUMONIA 98.2 65 18 139/65 98% ON RA H/H 9.1.3 NA+ 129 K+ 3.3 CL-97 BG 129 IS: IV NS@ 30ML/HR LEXAPRO PO QD K-DUR PO X1 DEPAKENE PO BID ELIQUIS PO BID FLOMAX PO QHS NORVASC PO QD IMDUR PO QD HYDRALAZINE PO TID PROSCAR PO QD PROTONIX PO QD NITRO BID 1" Q6HRS : 4E MED SURG STATUS DCP: [facility] SNF PLAN: REACHED OUT TO [facility]- UNABLE TO ACCEPT DUE TO (+) COVID-19 REPEAT COVID-19 -09/13 COVID-19 + (09/12/19)
--- NOTE | 2019-09-16 14:21 | NUR ---
CASE MANAGEMENT:REVIEW 09/15/19 SI: COVID 19 PNEUMONIA 98.2 65 18 139/65 98% ON RA NA+ 135 BUN 32 CREAT 1.6 BNP 6139 IS: IV NS@ 30ML/HR IV D5 BOLUS X1 LEXAPRO PO QD DEPAKENE PO BID ELIQUIS PO BID FLOMAX PO QHS NORVASC PO QD IMDUR PO QD HYDRALAZINE PO TID PROSCAR PO QD PROTONIX PO QD NITRO BID 1" Q6HRS : 4E MED SURG STATUS DCP: [facility] SNF PLAN: REACHED OUT TO [facility]- UNABLE TO ACCEPT DUE TO (+) COVID-19 REPEAT COVID-19 -09/13 COVID-19 + (09/12/19) CASE MANAGEMENT:REVIEW 09/16/19 SI: COVID 19 PNEUMONIA 97.5 72 19 128/58 100% ON RA NA+ 129 K+ 3.3 CL-97 BG 129 IS: K-DUR PO X1 IV D5 @50ML/HR X1 IV NS@ 30ML/HR LEXAPRO PO QD K-DUR PO X1 DEPAKENE PO BID ELIQUIS PO BID FLOMAX PO QHS NORVASC PO QD IMDUR PO QD HYDRALAZINE PO TID PROSCAR PO QD PROTONIX PO QD NITRO BID 1" Q6HRS : 4E MED SURG STATUS DCP: [facility] SNF PLAN: REPEAT COVID-19 -09/13 COVID-19 + (09/12/19) PT DISCHARGE SERVICES-Overall poor activity tolerance. Progress has plateaued and pt no longer benefiting from skilled
--- NOTE | 2019-09-16 14:21 | Urology Progress Note ---
Assessment/Plan Status: stable, progressing, not improved Assessment/Plan: 1. Gross hematuria hx, presumably secondary to Doshi trauma, resolved. 2. BPH. 3. Urinary retention. 4. Neurogenic bladder. 5. Pyuria?UTI/colonized. 6. Proteinuria. 7. Renal insufficiency, which appears to be acute on chronic. 8. Rule out urethral stricture. monitor clinically doshi out, voiding/incontinent on proscar and flomax s/p abx restraints PRN cysto at some point monitor PVR and reinsert doshi PRN renal imaging? COVID (+) Eliquis resumed monitor for bleeding Subjective Allergies: Coded Allergies: No Known Allergies (Unverified , 06/05/19) Subjective all noted, confused, doshi out, incontinent, condom cath Objective Last 24 Hour Vital Signs Date Time Temp Pulse Resp B/P (MAP) Pulse Ox O2 Delivery O2 Flow Rate FiO2 09/16/19 14:14 121/57 09/16/19 12:00 97.9 76 18 121/57 (78) 95 09/16/19 09:00 Room Air 09/16/19 08:43 72 128/58 09/16/19 08:42 128/58 09/16/19 08:00 97.5 72 19 128/58 (81) 100 09/16/19 05:26 127/69 09/16/19 04:00 97.8 87 20 127/69 (88) 95 09/16/19 00:00 97.5 65 20 96/63 (74) 97 09/15/19 21:27 113/55 09/15/19 21:00 Room Air 09/15/19 20:00 97.7 64 20 113/55 (74) 96 09/15/19 16:00 97.9 60 18 131/60 (83) 97 Intake and Output 09/15/19 09/16/19 19:00 07:00 Intake Total 1420 ml 900 ml Output Total 400 ml 900 ml Balance 1020 ml 0 ml Intake Oral 220 ml IV Total 1200 ml 900 ml Output Urine Total 400 ml 900 ml # Voids 1 Microbiology Date/Time Source Procedure Growth Status 09/12/19 11:30 Nasopharynx Coronavirus COVID-19 PCR (JOSÉ LUIS) - Final Complete 08/28/19 12:31 Indwelling Cath Urine Culture - Final Pseudomonas Aeruginosa Raoultella Planticola Complete 08/06/19 04:45 Rectum VRE Culture - Final NO VANCOMYCIN RESISTANT ENTEROCOCCUS ... Complete Current Medications Medications (Trade) Dose Ordered Sig/Kristine Route PRN Reason Start Time Stop Time Status Last Admin Dose Admin Acetaminophen (Tylenol) 650 mg Q4H PRN ORAL Fever 09/09/19 22:30 10/09/19 22:29 09/09/19 22:42 Amlodipine Besylate (Norvasc) 10 mg DAILY ORAL 09/10/19 09:00 09/28/19 08:59 09/16/19 08:43 Apixaban (Eliquis) 2.5 mg BID@0900,2100 ORAL 09/09/19 21:00 12/06/19 08:59 09/16/19 08:43 Ascorbic Acid (Vitamin C) 250 mg DAILY ORAL 09/10/19 09:00 10/10/19 08:59 09/16/19 08:42 Calcitonin [place] (Miacalcin) 1 sprays DAILY NASAL 09/12/19 13:00 12/11/19 12:59 09/16/19 08:43 Escitalopram Oxalate (Lexapro) 5 mg DAILY ORAL 09/10/19 09:00 10/09/19 08:59 09/16/19 08:42 Famotidine (Pepcid) 20 mg DAILY ORAL 09/10/19 09:00 12/09/19 08:59 09/16/19 08:42 Finasteride (Proscar) 5 mg DAILY ORAL 09/10/19 09:00 11/05/19 15:44 09/16/19 08:43 Hydralazine HCl (Apresoline) 50 mg Q8HR ORAL 09/12/19 22:00 12/11/19 21:59 09/16/19 14:14 Isosorbide Mononitrate (Imdur) 30 mg DAILY ORAL 09/10/19 09:00 10/10/19 08:59 09/16/19 08:42 Lorazepam (Ativan 2mg/ml 1ml) 1 mg Q4H PRN IV For Anxiety 09/09/19 22:30 09/16/19 22:29 09/15/19 18:23 Magnesium Hydroxide (Mom) 30 ml TIDPRN PRN ORAL Constipation 09/09/19 13:00 10/09/19 12:59 Multivitamins (Multivitamins) 1 tab DAILY ORAL 09/10/19 09:00 10/10/19 08:59 09/16/19 08:43 Sodium Chloride 250 ml @ 30 mls/hr ONCE ONCE IV 09/16/19 14:00 09/16/19 22:19 09/16/19 14:14 Tamsulosin HCl (Flomax) 0.4 mg BID ORAL 09/12/19 12:00 10/06/19 20:59 09/16/19 08:43 Trazodone HCl (Desyrel) 25 mg BEDTIME ORAL 09/09/19 21:00 10/09/19 20:59 09/15/19 21:27 Valproic Acid (Depakene) 250 mg EVERY 12 HOURS NG 09/09/19 21:00 10/22/19 20:59 09/16/19 08:42 Laboratory Tests 09/16/19 04:05: Phosphorus Level 3.0, Magnesium Level 1.9, Total Bilirubin 0.3, Direct Bilirubin 0.1, Aspartate Amino Transf (AST/SGOT) 25, Alanine Aminotransferase ( ALT/SGPT) 19, Alkaline Phosphatase 89, Total Protein 6.1L, Albumin 2.1L 09/16/19 09:05: Sodium Level 129L, Potassium Level 3.3L, Chloride Level 97L, Carbon Dioxide Level 24, Anion Gap 8, Blood Urea Nitrogen 26H, Creatinine 1.3, Estimat Glomerular Filtration Rate 52.6, Glucose Level 129H, Calcium Level 9.0 Height (Feet): 5 Height (Inches): 6.00 Weight (Pounds): 89 Objective exam stable abdomen soft urine grossly yellow Bamshad,Miki Perry MD September 16, 2019 14:21
[2019-09-16] MEDS: LORazepam Inj 2mg/ml 1ml IV PRN (15:18)
[2019-09-16 16:00] VITALS: BP 133/86
--- NOTE | 2019-09-16 16:31 | NUR ---
*-*DISCHARGE PLANNING*-* PATIENT HAS BEEN REFERRED TO: [facility] P: [phone] S/W ROSIE, WILL CALL BACK AFTER REVIEW [facility] P: [phone] S/W ROSIE, WILL CALL BACK AFTER REVIEW [facility] P:[phone] S/W JABIER, ADMISSIONS NOT AVAILABLE [facility] P: [phone] S/W CLIVE, ADMISSION NOT AVAILABLE Addendum: 09/19/19 at 1222 by ELIDA BERG CM [facility] P: [phone] S/W MALLORY, DECLINED, ONLY ACCEPTING [facility]19 PATIENTS [facility] P: [phone] S/W DOMI, NOT ACCEPTING ANY PATIENTS [facility] P:[phone] S/W JOSE, NOT COVERED W/ PATIENTS INSURANCE [facility] P: [phone] ADMISSION NOT AVAILABLE
--- NOTE | 2019-09-16 19:27 | NUR ---
HAND-OFF: Report given to LUIS FERNANDO yu.
--- NOTE | 2019-09-16 19:30 | NUR ---
NURSE NOTES: Patient in bed, confused, on room air, no SOB noted. With IV access on left upper arm. Safety measures rendered. Will continue plan of care.
[2019-09-16 20:00] VITALS: BP 95/53
[2019-09-16] MEDS: TraZODone HCl 25 mg tablet ORAL SCH (20:46)
--- NOTE | 2019-09-16 23:00 | Progress Note ---
DATE: 09/16/2019 CARDIOLOGY PROGRESS NOTE SUBJECTIVE: The patient is without any change in status. Still without cough, shortness of breath, or hypoxia. He remains afebrile. OBJECTIVE: VITAL SIGNS: Blood pressure 96/53 to 131/60, heart rate in the 60s. NECK: Jugular venous pressure is normal. LUNGS: With clear breath sounds. CARDIAC: Irregularly irregular. Normal S1, S2. A 1/6 systolic murmur at apex. ABDOMEN: Soft. EXTREMITIES: No edema. LABORATORY DATA: Sodium 129, potassium 3.3, bicarb 24, BUN 26, creatinine 1.3. IMPRESSION: 1. Hyponatremia. 2. Chronic kidney disease. 3. Acute on chronic diastolic congestive heart failure. 4. Valvular cardiomyopathy. 5. COVID-19 pneumonia. 6. Metabolic and toxic encephalopathy. PLAN: 1. A 3% saline. 2. Potassium repletion. 3. Reassess for diuresis. 4. Continue anticoagulation for cardioembolic prophylaxis. 5. Continue titration of anti-failure and antihypertensive regimen based on clinical parameters. 6. Await clearance of COVID-19 for discharge. Gamaliel Salas M.D. DR: Jose JOB#: [id number] CC:
[2019-09-17] VITALS: BP 98/50
[2019-09-17 04:00] VITALS: BP 101/67
[2019-09-17] MEDS: HydrALAZINE 50mg tab ORAL SCH ×3 (06:00→22:26)
--- NOTE | 2019-09-17 06:36 | NUR ---
RD ASSESSMENT & RECOMMENDATIONS SEE CARE ACTIVITY FOR COMPLETE ASSESSMENT DAILY ESTIMATED NEEDS: Needs based on Wound, 66.8kg 28-33 kcals/kg 7048-2986 total kcals 1.25-1.5 g protein/kg 84-100 g total protein 25-30 mL/kg 4419-4902 total fluid mLs NUTRITION DIAGNOSIS: Swallowing difficulty r/t dysphagia and ams as evidenced by s/p CAGE FIGHTER eval, poor cognition, pt on liquify puree texture diet w/ HTL, now with poor/variable intake. CURRENT DIET: Liquify puree HTL Regular PO DIET RECOMMENDATIONS: Maintain Regular diet, texture per CAGE FIGHTER ADDITIONAL RECOMMENDATIONS: 1) Ensure Enlive TID w/ meals (350kcal/20g prot per bottle) 2) RECALIBRATE BEDSCALE WT: BIG DISCREPENCY IN WTS initial EMR wt: 160# vs Bed scale wt: 147#-> EMR wt now reads 88.8# 3) CONSIDER APPETITE STIMULANT- prolonged poor PO 4) Rec daily bowel regimen: last recorded BM on 09/08, monitor BM closely 4) Wound care: MVI 1 tab QD + Vit C 250mg QD+ Jacob BID 5) Monitor lytes, replete as needed
--- NOTE | 2019-09-17 07:12 | NUR ---
HAND-OFF: Report given to LUIS FERNANDO Candelaria.
--- NOTE | 2019-09-17 07:46 | NUR ---
NURSE NOTES: Report received from Rigoberto GOULD. Patient seen on rounds, asleep, not in distress, tolerating room air. DNR/DNI. PIV on left upper arm patent and intact. Condom catheter secure and draining well. Dressings on sacrum and bilateral heels intact. Bed low and locked, siderails up x2, zone alarms on 1, will continue to monitor.
[2019-09-17 08:00] VITALS: BP 117/50
--- NOTE | 2019-09-17 08:57 | Pulmonology Progress Note ---
Assessment/Plan Assessment/Plan IMPRESSION: 1. Pleural effusions, small bilateral. 2. Atelectasis. 3. Pulmonary edema, questionable. 4. Hypertension. 5. Hyperlipidemia. 6. positive COVID 19 7. UTI DISCUSSION: The patient is saturating well on room air I will follow as dictating machine typist. No new recommendations Kimani Hahn M.D. Subjective ROS Limited/Unobtainable: No Interval Events: None new reported Constitutional: Denies: fever HEENT: Repors: no symptoms Respiratory: Reports: no symptoms Cardiovascular: Reports: no symptoms Gastrointestinal/Abdominal: Denies: nausea, vomiting, diarrhea Genitourinary: Reports: no symptoms; Denies: dysuria, hematuria, frequency, nocturia, urgency, other Neurologic: Reports: no symptoms Musculoskeletal: Denies: no symptoms, pain, swelling, stiffness, other Allergies: Coded Allergies: No Known Allergies (Unverified , 06/05/19) All Systems: reviewed and negative except above Objective Last 24 Hour Vital Signs Date Time Temp Pulse Resp B/P (MAP) Pulse Ox O2 Delivery O2 Flow Rate FiO2 09/17/19 08:00 98.5 60 18 117/50 (72) 98 09/17/19 06:00 101/67 09/17/19 04:00 97.8 67 20 101/67 (78) 96 09/17/19 00:00 98.2 65 20 98/50 (66) 98 09/16/19 21:52 95/53 09/16/19 21:00 Room Air 09/16/19 20:00 98.0 68 20 95/53 (67) 96 09/16/19 16:00 97.9 74 17 133/86 (102) 96 09/16/19 14:14 121/57 09/16/19 12:00 97.9 76 18 121/57 (78) 95 09/16/19 09:00 Room Air Intake and Output 09/16/19 09/17/19 19:00 07:00 Intake Total 120 ml Output Total 350 ml 420 ml Balance -230 ml -420 ml IV Total 120 ml Output Urine Total 350 ml 420 ml # Voids 1 General Appearance: no acute distress HEENT: mucous membranes moist Respiratory/Chest: chest wall non-tender, lungs clear Cardiovascular: normal peripheral pulses Abdomen: soft, non tender Extremities: no edema Neurologic/Psychiatric: disoriented Laboratory Tests 09/16/19 09:05: Sodium Level 129L, Potassium Level 3.3L, Chloride Level 97L, Carbon Dioxide Level 24, Anion Gap 8, Blood Urea Nitrogen 26H, Creatinine 1.3, Estimat Glomerular Filtration Rate 52.6, Glucose Level 129H, Calcium Level 9.0 Current Medications Medications (Trade) Dose Ordered Sig/Kristine Route PRN Reason Start Time Stop Time Status Last Admin Dose Admin Acetaminophen (Tylenol) 650 mg Q4H PRN ORAL Fever 09/09/19 22:30 10/09/19 22:29 09/09/19 22:42 Amlodipine Besylate (Norvasc) 10 mg DAILY ORAL 09/10/19 09:00 09/28/19 08:59 09/16/19 08:43 Apixaban (Eliquis) 2.5 mg BID@0900,2100 ORAL 09/09/19 21:00 12/06/19 08:59 09/16/19 20:46 Ascorbic Acid (Vitamin C) 250 mg DAILY ORAL 09/10/19 09:00 10/10/19 08:59 09/16/19 08:42 Calcitonin [place] (Miacalcin) 1 sprays DAILY NASAL 09/12/19 13:00 12/11/19 12:59 09/16/19 08:43 Escitalopram Oxalate (Lexapro) 5 mg DAILY ORAL 09/10/19 09:00 10/09/19 08:59 09/16/19 08:42 Famotidine (Pepcid) 20 mg DAILY ORAL 09/10/19 09:00 12/09/19 08:59 09/16/19 08:42 Finasteride (Proscar) 5 mg DAILY ORAL 09/10/19 09:00 11/05/19 15:44 09/16/19 08:43 Hydralazine HCl (Apresoline) 50 mg Q8HR ORAL 09/12/19 22:00 12/11/19 21:59 09/16/19 14:14 Isosorbide Mononitrate (Imdur) 30 mg DAILY ORAL 09/10/19 09:00 10/10/19 08:59 09/16/19 08:42 Magnesium Hydroxide (Mom) 30 ml TIDPRN PRN ORAL Constipation 09/09/19 13:00 10/09/19 12:59 Multivitamins (Multivitamins) 1 tab DAILY ORAL 09/10/19 09:00 10/10/19 08:59 09/16/19 08:43 Tamsulosin HCl (Flomax) 0.4 mg BID ORAL 09/12/19 12:00 10/06/19 20:59 09/16/19 17:57 Trazodone HCl (Desyrel) 25 mg BEDTIME ORAL 09/09/19 21:00 10/09/19 20:59 09/16/19 20:46 Valproic Acid (Depakene) 250 mg EVERY 12 HOURS NG 09/09/19 21:00 10/22/19 20:59 09/16/19 20:46 Kimani Hahn MD September 17, 2019 08:57
[2019-09-17] MEDS: Tamsulosin 0.4mg cap ORAL SCH ×2 (09:15→17:15)
[2019-09-17] MEDS: Ascorbic Acid 500mg tab ORAL SCH (09:15)
[2019-09-17] MEDS: Eliquis 2.5mg tablet ORAL SCH ×2 (09:16→20:46)
[2019-09-17] MEDS: Imdur 30mg tab ORAL SCH (09:16)
[2019-09-17] MEDS: Valproic Acid 250mg/5ml Liquid NG SCH ×2 (09:17→20:46)
--- NOTE | 2019-09-17 10:04 | NUR ---
NURSE NOTES: MD Dr. Echavarria informed of Covid swab results which were negative from 09/13. Received orders to maintain patient on droplet isolation precautions.
--- NOTE | 2019-09-17 10:04 | Urology Progress Note ---
Assessment/Plan Status: stable, progressing, not improved Assessment/Plan: 1. Gross hematuria hx, presumably secondary to Doshi trauma, resolved. 2. BPH. 3. Urinary retention. 4. Neurogenic bladder. 5. Pyuria?UTI/colonized. 6. Proteinuria. 7. Renal insufficiency, which appears to be acute on chronic. 8. Rule out urethral stricture. monitor clinically doshi out, voiding/incontinent on proscar and flomax s/p abx restraints PRN cysto at some point monitor PVR and reinsert doshi PRN renal imaging? COVID (+) hx Eliquis resumed monitor for bleeding Subjective Allergies: Coded Allergies: No Known Allergies (Unverified , 06/05/19) Subjective all noted, confused, doshi out, incontinent, condom cath Objective Last 24 Hour Vital Signs Date Time Temp Pulse Resp B/P (MAP) Pulse Ox O2 Delivery O2 Flow Rate FiO2 09/17/19 09:17 60 117/50 09/17/19 09:16 117/50 09/17/19 08:00 98.5 60 18 117/50 (72) 98 09/17/19 06:00 101/67 09/17/19 04:00 97.8 67 20 101/67 (78) 96 09/17/19 00:00 98.2 65 20 98/50 (66) 98 09/16/19 21:52 95/53 09/16/19 21:00 Room Air 09/16/19 20:00 98.0 68 20 95/53 (67) 96 09/16/19 16:00 97.9 74 17 133/86 (102) 96 09/16/19 14:14 121/57 09/16/19 12:00 97.9 76 18 121/57 (78) 95 Intake and Output 09/16/19 09/17/19 19:00 07:00 Intake Total 120 ml Output Total 350 ml 420 ml Balance -230 ml -420 ml IV Total 120 ml Output Urine Total 350 ml 420 ml # Voids 1 Microbiology Date/Time Source Procedure Growth Status 09/14/19 12:55 Nasopharynx Coronavirus COVID-19 PCR (JOSÉ LUIS) - Final Complete 08/28/19 12:31 Indwelling Cath Urine Culture - Final Pseudomonas Aeruginosa Raoultella Planticola Complete 08/06/19 04:45 Rectum VRE Culture - Final NO VANCOMYCIN RESISTANT ENTEROCOCCUS ... Complete Current Medications Medications (Trade) Dose Ordered Sig/Kristine Route PRN Reason Start Time Stop Time Status Last Admin Dose Admin Acetaminophen (Tylenol) 650 mg Q4H PRN ORAL Fever 09/09/19 22:30 10/09/19 22:29 09/09/19 22:42 Amlodipine Besylate (Norvasc) 10 mg DAILY ORAL 09/10/19 09:00 09/28/19 08:59 09/17/19 09:17 Apixaban (Eliquis) 2.5 mg BID@0900,2100 ORAL 09/09/19 21:00 12/06/19 08:59 09/17/19 09:16 Ascorbic Acid (Vitamin C) 250 mg DAILY ORAL 09/10/19 09:00 10/10/19 08:59 09/17/19 09:15 Calcitonin [place] (Miacalcin) 1 sprays DAILY NASAL 09/12/19 13:00 12/11/19 12:59 09/17/19 09:17 Escitalopram Oxalate (Lexapro) 5 mg DAILY ORAL 09/10/19 09:00 10/09/19 08:59 09/17/19 09:15 Famotidine (Pepcid) 20 mg DAILY ORAL 09/10/19 09:00 12/09/19 08:59 09/17/19 09:15 Finasteride (Proscar) 5 mg DAILY ORAL 09/10/19 09:00 11/05/19 15:44 09/17/19 09:15 Hydralazine HCl (Apresoline) 50 mg Q8HR ORAL 09/12/19 22:00 12/11/19 21:59 09/16/19 14:14 Isosorbide Mononitrate (Imdur) 30 mg DAILY ORAL 09/10/19 09:00 10/10/19 08:59 09/17/19 09:16 Magnesium Hydroxide (Mom) 30 ml TIDPRN PRN ORAL Constipation 09/09/19 13:00 10/09/19 12:59 Multivitamins (Multivitamins) 1 tab DAILY ORAL 09/10/19 09:00 10/10/19 08:59 09/17/19 09:15 Tamsulosin HCl (Flomax) 0.4 mg BID ORAL 09/12/19 12:00 5/21/20 20:59 09/17/19 09:15 Trazodone HCl (Desyrel) 25 mg BEDTIME ORAL 09/09/19 21:00 10/09/19 20:59 09/16/19 20:46 Valproic Acid (Depakene) 250 mg EVERY 12 HOURS NG 09/09/19 21:00 10/22/19 20:59 09/17/19 09:17 Height (Feet): 5 Height (Inches): 6.00 Weight (Pounds): 89 Objective exam stable abdomen soft urine grossly yellow Bamshad,Miki Perry MD September 17, 2019 10:04
--- NOTE | 2019-09-17 10:41 | General Progress Note ---
Assessment/Plan Problem List: (1) CHF (congestive heart failure) ICD Codes: I50.9 - Heart failure, unspecified SNOMED: 88284091 (2) Renal failure (ARF), acute on chronic ICD Codes: N17.9 - Acute kidney failure, unspecified; N18.9 - Chronic kidney disease, unspecified SNOMED: 115454584 (3) Encephalopathy due to metabolic factor or toxin SNOMED: 915494977 (4) Gross hematuria ICD Codes: R31.0 - Gross hematuria SNOMED: 226670965 (5) Falls frequently ICD Codes: R29.6 - Repeated falls SNOMED: 687792968 (6) Dehydration ICD Codes: E86.0 - Dehydration SNOMED: 39125387 (7) UTI (urinary tract infection) ICD Codes: N39.0 - Urinary tract infection, site not specified SNOMED: 06327208 (8) Anemia ICD Codes: D64.9 - Anemia, unspecified SNOMED: 794746036 Status: stable, progressing, not improved Assessment/Plan: o2 as needed. currently stable on room air. fall precautions. monitor cxr Encourage pos. monitor labs. ivf dcd yesterday repeat bmp today monitor Na Anxiolytics as needed. Continue blood pressure treatment. DVT and stress ulcer prophylaxis. [facility] to [facility] on hold for now. will need 2 neg covid tests. Subjective ROS Limited/Unobtainable: Yes Constitutional: Reports: malaise, weakness HEENT: Reports: no symptoms Cardiovascular: Reports: no symptoms Respiratory: Reports: no symptoms Gastrointestinal/Abdominal: Reports: no symptoms Genitourinary: Reports: no symptoms Neurologic/Psychiatric: Reports: anxiety, pre-existing deficit Endocrine: Reports: no symptoms Hematologic/Lymphatic: Reports: no symptoms Allergies: Coded Allergies: No Known Allergies (Unverified , 06/05/19) All Systems: reviewed and negative except above Subjective No overnight events. Remains confused and agitated at times. Sodium down to 29 yesterday. Hypotonic IV fluids discontinued yesterday. COVID-19 PCR negative. No fevers chills or cough noted. P.o. intake remains poor. Objective Last 24 Hour Vital Signs Date Time Temp Pulse Resp B/P (MAP) Pulse Ox O2 Delivery O2 Flow Rate FiO2 09/17/19 09:17 60 117/50 09/17/19 09:16 117/50 09/17/19 09:00 Room Air 09/17/19 08:00 98.5 60 18 117/50 (72) 98 09/17/19 06:00 101/67 09/17/19 04:00 97.8 67 20 101/67 (78) 96 09/17/19 00:00 98.2 65 20 98/50 (66) 98 09/16/19 21:52 95/53 09/16/19 21:00 Room Air 09/16/19 20:00 98.0 68 20 95/53 (67) 96 09/16/19 16:00 97.9 74 17 133/86 (102) 96 09/16/19 14:14 121/57 09/16/19 12:00 97.9 76 18 121/57 (78) 95 Intake and Output 09/16/19 09/17/19 19:00 07:00 Intake Total 120 ml Output Total 350 ml 420 ml Balance -230 ml -420 ml IV Total 120 ml Output Urine Total 350 ml 420 ml # Voids 1 Height (Feet): 5 Height (Inches): 6.00 Weight (Pounds): 89 Objective General Appearance: WD/WN, alert, confused Neck: supple Cardiovascular: regular rhythm Respiratory/Chest: rhonchi - bilaterally Abdomen: normal bowel sounds, non tender, soft, no organomegaly, no mass Edema: no edema noted Arm (L), no edema noted Arm (R), no edema noted Leg (L), no edema noted Leg (R), no edema noted Pedal (L), no edema noted Pedal (R), no edema noted 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
--- NOTE | 2019-09-17 10:56 | Surgery Progress Note ---
Surgery Progress Note Subjective Additional Comments no acute events comfortable appearing labs noted exam stable Objective Last 24 Hour Vital Signs Date Time Temp Pulse Resp B/P (MAP) Pulse Ox O2 Delivery O2 Flow Rate FiO2 09/17/19 09:17 60 117/50 09/17/19 09:16 117/50 09/17/19 09:00 Room Air 09/17/19 08:00 98.5 60 18 117/50 (72) 98 09/17/19 06:00 101/67 09/17/19 04:00 97.8 67 20 101/67 (78) 96 09/17/19 00:00 98.2 65 20 98/50 (66) 98 09/16/19 21:52 95/53 09/16/19 21:00 Room Air 09/16/19 20:00 98.0 68 20 95/53 (67) 96 09/16/19 16:00 97.9 74 17 133/86 (102) 96 09/16/19 14:14 121/57 09/16/19 12:00 97.9 76 18 121/57 (78) 95 I&O Intake and Output 09/16/19 09/17/19 19:00 07:00 Intake Total 120 ml Output Total 350 ml 420 ml Balance -230 ml -420 ml IV Total 120 ml Output Urine Total 350 ml 420 ml # Voids 1 Dressing: other Wound: other Drains: other Cardiovascular: RSR Respiratory: decreased breath sounds Abdomen: soft, non-tender, present bowel sounds Extremities: no cyanosis Plan Problems: (1) Dehydration (2) Anemia (3) UTI (urinary tract infection) (4) Falls frequently (5) Renal failure (ARF), acute on chronic (6) Encephalopathy due to metabolic factor or toxin (7) CHF (congestive heart failure) (8) Gross hematuria (9) Deep tissue injury Assessment & Plan: Pt presented on admission with multiple pressure injuries which were resolving. 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 Base of injury is purple with maroon borders . Surrounding non-blanching erythema to R and Gluteal cheeks. Scrotum is erythematous. R and L heels are boggy but each area blanchable. Tx.Plan: Apply Moisture Barrier Paste to Sacrum. Cover with Optifoam drsg. Change every 3 days and prn. Apply Moisture Barrier Paste to bilat groin and scrotum with each incontinence care. Apply Cavilon Skin Barrier to both heels. Cover each heel with Optifoam drsg. Change every 7 days and prn. Reposition at least every 2hours or as tolerated. Off-load heels with pillow. APM/MEI Mattress overlay. (10) Malnutrition Assessment & Plan: DAILY ESTIMATED NEEDS: Needs based on Wound, 66.8kg 28-33 kcals/kg 8202-4803 total kcals 1.25-1.5 g protein/kg 84-100 g total protein 25-30 mL/kg 4735-9283 total fluid mLs NUTRITION DIAGNOSIS: Swallowing difficulty r/t dysphagia and ams as evidenced by s/p [employer] eval, poor cognition, pt on liquify puree texture diet w/ HTL, now with improved intake. CURRENT DIET: Liquify puree HTL Regular PO DIET RECOMMENDATIONS: Maintain Regular diet, texture per [employer] ADDITIONAL RECOMMENDATIONS: 1) Ensure Enlive TID w/ meals (350kcal/20g prot per bottle) 2) Maintain calibrated bed scale wts EMR wt: 160# vs Bed scale wt: 147#-> bed now reads 109.8# 3) Consider D5 IVF (vs 1/2 NS running currently)- Na elevated to prevent hypoglycemia given poor/variable PO 4) Wound care: MVI 1 tab QD + Vit C 250mg QD+ Jacob BID 5) Monitor lytes, replete as needed (11) Severe protein-calorie malnutrition Additional Comments pending two negative covid for d/c Sai Aaron September 17, 2019 10:56
[2019-09-17 12:00] VITALS: BP 118/59
[2019-09-17 12:32] LABS: ANION GAP 7 mmol/L (5-15); BLOOD UREA NITROGEN 27 mg/dL (7-18); CALCIUM 9.4 MG/DL (8.5-10.1); CARBON DIOXIDE 24 MMOL/L (21-32); CHLORIDE 104 MMOL/L (98-107); CREATININE 1.5 MG/DL (0.55-1.30); POTASSIUM 4.3 MMOL/L (3.5-5.1); SODIUM 134 MMOL/L (136-145)
--- NOTE | 2019-09-17 14:32 | Nephrology Progress Note ---
Assessment/Plan Problem List: (1) Renal failure (ARF), acute on chronic Assessment: Serum creatinine stabilizing (2) Falls frequently (3) UTI (urinary tract infection) Assessment: and hematuria (4) Anemia (5) Dehydration (6) Encephalopathy due to metabolic factor or toxin (7) Hypercalcemia Assessment Frequent falls Acute renal failure with underlying dehydration Anemia, underlying etiology unclear UTI (urinary tract infection) Toxic metabolic encephalopathy Plan Trial of 3% saline 250 cc for hyponatremia raised serum sodium from 1 29-1 34 Serum creatinine overall stable, it is 1.5 today Watch serum calcium, start calcitonin nasal spray for hypercalcemia Increase hydralazine dose for better blood pressure control Patient now COVID-19 positive Start D5W for hypernatremia as needed P.o. intake variable Oral potassium supplement as needed previously: Increase Flomax to twice daily Correct electrolytes as needed Transfusion as needed 2D echocardiogram ejection fraction 60% Kidney ultrasound pending results Monitor renal parameters Avoid nephrotoxics Antibiotics for UTI Continue per consultants Subjective ROS Limited/Unobtainable: No Objective Objective Last 24 Hour Vital Signs Date Time Temp Pulse Resp B/P (MAP) Pulse Ox O2 Delivery O2 Flow Rate FiO2 09/17/19 13:44 118/59 09/17/19 12:00 97.8 63 19 118/59 (78) 98 09/17/19 09:17 60 117/50 09/17/19 09:16 117/50 09/17/19 09:00 Room Air 09/17/19 08:00 98.5 60 18 117/50 (72) 98 09/17/19 06:00 101/67 09/17/19 04:00 97.8 67 20 101/67 (78) 96 09/17/19 00:00 98.2 65 20 98/50 (66) 98 09/16/19 21:52 95/53 09/16/19 21:00 Room Air 09/16/19 20:00 98.0 68 20 95/53 (67) 96 09/16/19 16:00 97.9 74 17 133/86 (102) 96 Intake and Output 09/16/19 09/17/19 19:00 07:00 Intake Total 120 ml Output Total 350 ml 420 ml Balance -230 ml -420 ml IV Total 120 ml Output Urine Total 350 ml 420 ml # Voids 1 Laboratory Tests 09/17/19 11:20: Sodium Level 134L, Potassium Level 4.3, Chloride Level 104, Carbon Dioxide Level 24, Anion Gap 7, Blood Urea Nitrogen 27H, Creatinine 1.5H, Estimat Glomerular Filtration Rate 44.6, Glucose Level 105, Calcium Level 9.4 Height (Feet): 5 Height (Inches): 6.00 Weight (Pounds): 89 General Appearance: no apparent distress, lethargic Objective No change Juan Jade MD September 17, 2019 14:32
[2019-09-17 14:43] LABS: ALANINE AMINOTRANSFERASE 19 U/L (12-78); ALBUMIN 1.9 G/DL (3.4-5.0); ALKALINE PHOSPHATASE 88 U/L (46-116); ASPARTATE AMINO TRANSFERASE 49 U/L (15-37); BILIRUBIN,DIRECT < 0.1 MG/DL (0.0-0.3); BILIRUBIN,TOTAL 0.3 MG/DL (0.2-1.0)
[2019-09-17 16:00] VITALS: BP 118/51
--- NOTE | 2019-09-17 18:16 | NUR ---
NURSE NOTES: Optifoam applied to bilateral heels for pressure injury prevention.
--- NOTE | 2019-09-17 19:32 | NUR ---
HAND-OFF: Report given to Marcy GOULD.
--- NOTE | 2019-09-17 19:46 | NUR ---
NURSE NOTES: Received patient in bed, awake, confused, disoriented, [place] speaking only, on room air, noted with poor appetite, IV site is clean dry and intact, condom cath is on, secured, draining well. Fall risk and aspiration precautions are in place, call light is within reach, bed is lowered, locked, alarm is on, will continue to monitor for comfort and safety.
[2019-09-17 20:00] VITALS: BP 147/75
[2019-09-17] MEDS: TraZODone HCl 25 mg tablet ORAL SCH (20:46)
[2019-09-18] VITALS: BP 137/52
--- NOTE | 2019-09-18 01:00 | Progress Note ---
DATE: 09/17/2019 CARDIOLOGY PROGRESS NOTE SUBJECTIVE: Status improving steadily. PCI, COVID-19 #1 following acute infection is negative. OBJECTIVE: VITAL SIGNS: Afebrile, blood pressure 117/50, pulse 60, respirations 18, and room air oxygen 96% saturation. LUNGS: Good breath sounds. CARDIAC: Irregularly irregular rhythm. Normal S1 and S2. ABDOMEN: Soft. EXTREMITIES: No edema. LABORATORY DATA: Sodium 134, potassium 4.3, BUN 27, creatinine 1.5. Albumin 1.9. Magnesium 2.0. IMPRESSION: 1. Hyponatremia, improved. 2. Acute on chronic kidney injury, persisting. 3. Severe protein-calorie malnutrition, persisting. 4. Valvular cardiomyopathy with mitral valve regurgitation, status post repair, clinically compensated. 5. Acute on chronic diastolic congestive heart failure, clinically compensated. 6. Paroxysmal atrial fibrillation with underlying conduction system disease and rate control at this time. PLAN OF CARE: 1. Continue to observe off additional IV fluids. 2. Monitor volume status and cardiorenal function closely. 3. Titrate antihypertensive and anti-failure drugs based on clinical parameters. 4. Await 2 successive COVID-19 ____ negative before discharge can be initiated. Gamaliel Salas M.D. DR: ANDRE JOB#: [id number] CC:
[2019-09-18 04:00] VITALS: BP 138/54
[2019-09-18] MEDS: HydrALAZINE 50mg tab ORAL SCH ×3 (06:05→21:17)
--- NOTE | 2019-09-18 07:21 | NUR ---
HAND-OFF: Report given to Teagan GOULD.
[2019-09-18 08:00] VITALS: BP 160/55
--- NOTE | 2019-09-18 08:34 | General Progress Note ---
Assessment/Plan Problem List: (1) CHF (congestive heart failure) ICD Codes: I50.9 - Heart failure, unspecified SNOMED: 27567436 (2) Renal failure (ARF), acute on chronic ICD Codes: N17.9 - Acute kidney failure, unspecified; N18.9 - Chronic kidney disease, unspecified SNOMED: 898656313 (3) Encephalopathy due to metabolic factor or toxin SNOMED: 702147277 (4) Gross hematuria ICD Codes: R31.0 - Gross hematuria SNOMED: 883272541 (5) Falls frequently ICD Codes: R29.6 - Repeated falls SNOMED: 854139363 (6) Dehydration ICD Codes: E86.0 - Dehydration SNOMED: 93499868 (7) UTI (urinary tract infection) ICD Codes: N39.0 - Urinary tract infection, site not specified SNOMED: 32356449 (8) Anemia ICD Codes: D64.9 - Anemia, unspecified SNOMED: 165920223 Status: stable, progressing, not improved Assessment/Plan: o2 as needed. currently stable on room air. fall precautions. monitor cxr Encourage pos. monitor labs. monitor bmp and lytes Anxiolytics as needed. Continue blood pressure treatment. DVT and stress ulcer prophylaxis. Discharge planning to detention facility on hold for now. will need 2 neg covid tests. Subjective ROS Limited/Unobtainable: Yes Constitutional: Reports: malaise, weakness HEENT: Reports: no symptoms Cardiovascular: Reports: no symptoms Respiratory: Reports: no symptoms Gastrointestinal/Abdominal: Reports: poor appetite, poor fluid intake Genitourinary: Reports: no symptoms Neurologic/Psychiatric: Reports: anxiety, emotional problems, pre-existing deficit Endocrine: Reports: no symptoms Hematologic/Lymphatic: Reports: anemia Allergies: Coded Allergies: No Known Allergies (Unverified , 06/05/19) All Systems: reviewed and negative except above Subjective No overnight events. Remains confused and agitated at times. COVID-19 PCR negative. No fevers chills or cough noted. P.o. intake remains poor. Objective Last 24 Hour Vital Signs Date Time Temp Pulse Resp B/P (MAP) Pulse Ox O2 Delivery O2 Flow Rate FiO2 09/18/19 06:05 135/78 09/18/19 04:00 98.9 89 20 138/54 (82) 98 5/3/20 00:00 99.0 87 22 137/52 (80) 94 09/17/19 22:26 138/74 09/17/19 21:35 Room Air 09/17/19 20:00 98.7 98 20 147/75 (99) 95 09/17/19 16:00 98.1 59 17 118/51 (73) 98 09/17/19 13:44 118/59 09/17/19 12:00 97.8 63 19 118/59 (78) 98 09/17/19 09:17 60 117/50 09/17/19 09:16 117/50 09/17/19 09:00 Room Air Intake and Output 09/17/19 09/18/19 19:00 07:00 Intake Total 100 ml Balance 100 ml Intake Oral 100 ml Laboratory Tests 09/17/19 11:20: Sodium Level 134L, Potassium Level 4.3, Chloride Level 104, Carbon Dioxide Level 24, Anion Gap 7, Blood Urea Nitrogen 27H, Creatinine 1.5H, Estimat Glomerular Filtration Rate 44.6, Glucose Level 105, Calcium Level 9.4, Phosphorus Level 3.0, Magnesium Level 2.0, Total Bilirubin 0.3, Direct Bilirubin < 0.1, Aspartate Amino Transf (AST/SGOT) 49H, Alanine Aminotransferase (ALT/SGPT) 19, Alkaline Phosphatase 88, Total Protein 5.9L, Albumin 1.9L Height (Feet): 5 Height (Inches): 6.00 Weight (Pounds): 89 Objective General Appearance: WD/WN, alert, confused Neck: supple Cardiovascular: regular rhythm Respiratory/Chest: rhonchi - bilaterally Abdomen: normal bowel sounds, non tender, soft, no organomegaly, no mass Edema: no edema noted Arm (L), no edema noted Arm (R), no edema noted Leg (L), no edema noted Leg (R), no edema noted Pedal (L), no edema noted Pedal (R), no edema noted 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
[2019-09-18] MEDS: Eliquis 2.5mg tablet ORAL SCH ×2 (09:03→21:18)
[2019-09-18] MEDS: Valproic Acid 250mg/5ml Liquid NG SCH ×2 (09:03→21:18)
[2019-09-18] MEDS: Tamsulosin 0.4mg cap ORAL SCH ×2 (09:03→18:00)
[2019-09-18] MEDS: Ascorbic Acid 500mg tab ORAL SCH (09:05)
[2019-09-18] MEDS: Imdur 30mg tab ORAL SCH (09:06)
--- NOTE | 2019-09-18 10:23 | Urology Progress Note ---
Assessment/Plan Status: stable, progressing, not improved Assessment/Plan: 1. Gross hematuria hx, presumably secondary to Doshi trauma, resolved. 2. BPH. 3. Urinary retention. 4. Neurogenic bladder. 5. Pyuria?UTI/colonized. 6. Proteinuria. 7. Renal insufficiency, which appears to be acute on chronic. 8. Rule out urethral stricture. monitor clinically doshi out, voiding/incontinent on proscar and flomax s/p abx restraints PRN cysto at some point monitor PVR and reinsert doshi PRN renal imaging? COVID (+) hx Eliquis resumed monitor for bleeding Subjective Allergies: Coded Allergies: No Known Allergies (Unverified , 06/05/19) Subjective all noted, confused, doshi out, incontinent, condom cath Objective Last 24 Hour Vital Signs Date Time Temp Pulse Resp B/P (MAP) Pulse Ox O2 Delivery O2 Flow Rate FiO2 09/18/19 09:06 160/55 09/18/19 09:05 96 160/55 09/18/19 09:00 Room Air 09/18/19 08:00 99.8 96 20 160/55 (90) 96 09/18/19 06:05 135/78 09/18/19 04:00 98.9 89 20 138/54 (82) 98 09/18/19 00:00 99.0 87 22 137/52 (80) 94 09/17/19 22:26 138/74 09/17/19 21:35 Room Air 09/17/19 20:00 98.7 98 20 147/75 (99) 95 09/17/19 16:00 98.1 59 17 118/51 (73) 98 09/17/19 13:44 118/59 09/17/19 12:00 97.8 63 19 118/59 (78) 98 Intake and Output 09/17/19 09/18/19 19:00 07:00 Intake Total 100 ml Balance 100 ml Intake Oral 100 ml Microbiology Date/Time Source Procedure Growth Status 09/14/19 12:55 Nasopharynx Coronavirus COVID-19 PCR ([facility]) - Final Complete 08/28/19 12:31 Indwelling Cath Urine Culture - Final Pseudomonas Aeruginosa Raoultella [place] Complete 08/06/19 04:45 Rectum VRE Culture - Final NO VANCOMYCIN RESISTANT ENTEROCOCCUS ... Complete Current Medications Medications (Trade) Dose Ordered Sig/Kristine Route PRN Reason Start Time Stop Time Status Last Admin Dose Admin Acetaminophen (Tylenol) 650 mg Q4H PRN ORAL Fever 09/09/19 22:30 10/09/19 22:29 09/09/19 22:42 Amlodipine Besylate (Norvasc) 10 mg DAILY ORAL 09/10/19 09:00 09/28/19 08:59 09/18/19 09:05 Apixaban (Eliquis) 2.5 mg BID@0900,2100 ORAL 09/09/19 21:00 12/06/19 08:59 09/18/19 09:03 Ascorbic Acid (Vitamin C) 250 mg DAILY ORAL 09/10/19 09:00 10/10/19 08:59 09/18/19 09:05 Calcitonin [place] (Miacalcin) 1 sprays DAILY NASAL 09/12/19 13:00 12/11/19 12:59 09/18/19 09:03 Escitalopram Oxalate (Lexapro) 5 mg DAILY ORAL 09/10/19 09:00 10/09/19 08:59 09/18/19 09:04 Famotidine (Pepcid) 20 mg DAILY ORAL 09/10/19 09:00 12/09/19 08:59 09/18/19 09:05 Finasteride (Proscar) 5 mg DAILY ORAL 09/10/19 09:00 11/05/19 15:44 09/18/19 09:05 Hydralazine HCl (Apresoline) 50 mg Q8HR ORAL 09/12/19 22:00 12/11/19 21:59 09/18/19 06:05 Isosorbide Mononitrate (Imdur) 30 mg DAILY ORAL 09/10/19 09:00 10/10/19 08:59 09/18/19 09:06 Magnesium Hydroxide (Mom) 30 ml TIDPRN PRN ORAL Constipation 09/09/19 13:00 10/09/19 12:59 Multivitamins (Multivitamins) 1 tab DAILY ORAL 09/10/19 09:00 10/10/19 08:59 09/18/19 09:06 Tamsulosin HCl (Flomax) 0.4 mg BID ORAL 09/12/19 12:00 10/06/19 20:59 09/18/19 09:03 Trazodone HCl (Desyrel) 25 mg BEDTIME ORAL 09/09/19 21:00 10/09/19 20:59 09/17/19 20:46 Valproic Acid (Depakene) 250 mg EVERY 12 HOURS NG 09/09/19 21:00 10/22/19 20:59 09/18/19 09:03 Laboratory Tests 09/17/19 11:20: Sodium Level 134L, Potassium Level 4.3, Chloride Level 104, Carbon Dioxide Level 24, Anion Gap 7, Blood Urea Nitrogen 27H, Creatinine 1.5H, Estimat Glomerular Filtration Rate 44.6, Glucose Level 105, Calcium Level 9.4, Phosphorus Level 3.0, Magnesium Level 2.0, Total Bilirubin 0.3, Direct Bilirubin < 0.1, Aspartate Amino Transf (AST/SGOT) 49H, Alanine Aminotransferase (ALT/SGPT) 19, Alkaline Phosphatase 88, Total Protein 5.9L, Albumin 1.9L Height (Feet): 5 Height (Inches): 6.00 Weight (Pounds): 89 Objective exam stable abdomen soft urine grossly yellow Bamshad,Miki Perry MD September 18, 2019 10:23
--- NOTE | 2019-09-18 10:52 | Nephrology Progress Note ---
Assessment/Plan Problem List: (1) Renal failure (ARF), acute on chronic Assessment: Serum creatinine stabilizing (2) Falls frequently (3) UTI (urinary tract infection) Assessment: and hematuria (4) Anemia (5) Dehydration (6) Encephalopathy due to metabolic factor or toxin (7) Hypercalcemia Assessment Frequent falls Acute renal failure with underlying dehydration Anemia, underlying etiology unclear UTI (urinary tract infection) Toxic metabolic encephalopathy Plan 1 dose of Aredia for hypercalcemia Trial of 3% saline 250 cc for hyponatremia raised serum sodium from 129- to 134 Serum creatinine overall stable, it is 1.5 today Watch serum calcium, start calcitonin nasal spray for hypercalcemia Increase hydralazine dose for better blood pressure control Patient now COVID-19 positive Start D5W for hypernatremia as needed P.o. intake variable Oral potassium supplement as needed previously: Increase Flomax to twice daily Correct electrolytes as needed Transfusion as needed 2D echocardiogram ejection fraction 60% Kidney ultrasound pending results Monitor renal parameters Avoid nephrotoxics Antibiotics for UTI Continue per consultants Subjective ROS Limited/Unobtainable: No Constitutional: Reports: malaise, weakness Objective Objective Last 24 Hour Vital Signs Date Time Temp Pulse Resp B/P (MAP) Pulse Ox O2 Delivery O2 Flow Rate FiO2 09/18/19 09:06 160/55 09/18/19 09:05 96 160/55 09/18/19 09:00 Room Air 09/18/19 08:00 99.8 96 20 160/55 (90) 96 09/18/19 06:05 135/78 09/18/19 04:00 98.9 89 20 138/54 (82) 98 09/18/19 00:00 99.0 87 22 137/52 (80) 94 09/17/19 22:26 138/74 09/17/19 21:35 Room Air 09/17/19 20:00 98.7 98 20 147/75 (99) 95 09/17/19 16:00 98.1 59 17 118/51 (73) 98 09/17/19 13:44 118/59 09/17/19 12:00 97.8 63 19 118/59 (78) 98 Intake and Output 09/17/19 09/18/19 19:00 07:00 Intake Total 100 ml Balance 100 ml Intake Oral 100 ml Laboratory Tests 09/17/19 11:20: Sodium Level 134L, Potassium Level 4.3, Chloride Level 104, Carbon Dioxide Level 24, Anion Gap 7, Blood Urea Nitrogen 27H, Creatinine 1.5H, Estimat Glomerular Filtration Rate 44.6, Glucose Level 105, Calcium Level 9.4, Phosphorus Level 3.0, Magnesium Level 2.0, Total Bilirubin 0.3, Direct Bilirubin < 0.1, Aspartate Amino Transf (AST/SGOT) 49H, Alanine Aminotransferase (ALT/SGPT) 19, Alkaline Phosphatase 88, Total Protein 5.9L, Albumin 1.9L Height (Feet): 5 Height (Inches): 6.00 Weight (Pounds): 89 General Appearance: no apparent distress, lethargic Cardiovascular: tachycardia Respiratory/Chest: decreased breath sounds Abdomen: soft Objective No change Juan Jade MD September 18, 2019 10:52
[2019-09-18 12:00] VITALS: BP 162/63
[2019-09-18] MEDS ORDERED: Pamidronate Disodium Inj 60 MG in Sodium Chloride 550 ML IVPB SCH (12:00)
--- NOTE | 2019-09-18 13:18 | Infectious Diseases Prog Note ---
Assessment/Plan Assessment/Plan A 1. COVID 19 pneumonia Positive on 4.14.20, 4.16.20, 09/06, 09/11 Negative on 09/13 2. Pseudomonas and Raoultella urinary tract infection s/p rx 3. Renal failure. 4. hypertension 5. cardiomyopathy P 1. CXR 2. will follow up COVID test 3. Continue isolation Subjective ROS Limited/Unobtainable: Yes Constitutional: Reports: fever, anorexia, other - T=100.1 Respiratory: Reports: dry cough Allergies: Coded Allergies: No Known Allergies (Unverified , 06/05/19) Objective Vital Signs Last 24 Hour Vital Signs Date Time Temp Pulse Resp B/P (MAP) Pulse Ox O2 Delivery O2 Flow Rate FiO2 09/18/19 13:12 162/63 09/18/19 12:00 100.1 95 20 162/63 (96) 96 09/18/19 09:06 160/55 09/18/19 09:05 96 160/55 09/18/19 09:00 Room Air 09/18/19 08:00 99.8 96 20 160/55 (90) 96 09/18/19 06:05 135/78 09/18/19 04:00 98.9 89 20 138/54 (82) 98 09/18/19 00:00 99.0 87 22 137/52 (80) 94 09/17/19 22:26 138/74 09/17/19 21:35 Room Air 09/17/19 20:00 98.7 98 20 147/75 (99) 95 09/17/19 16:00 98.1 59 17 118/51 (73) 98 09/17/19 13:44 118/59 Height (Feet): 5 Height (Inches): 6.00 Weight (Pounds): 89 General Appearance: cachetic HEENT: mucous membranes moist Cardiovascular: normal rate Abdomen: soft, non tender Extremities: no edema Current Medications Medications (Trade) Dose Ordered Sig/Kristine Route PRN Reason Start Time Stop Time Status Last Admin Dose Admin Acetaminophen (Tylenol) 650 mg Q4H PRN ORAL Fever 09/09/19 22:30 10/09/19 22:29 09/09/19 22:42 Amlodipine Besylate (Norvasc) 10 mg DAILY ORAL 09/10/19 09:00 09/28/19 08:59 09/18/19 09:05 Apixaban (Eliquis) 2.5 mg BID@0900,2100 ORAL 09/09/19 21:00 12/06/19 08:59 09/18/19 09:03 Ascorbic Acid (Vitamin C) 250 mg DAILY ORAL 09/10/19 09:00 10/10/19 08:59 09/18/19 09:05 Calcitonin [place] (Miacalcin) 1 sprays DAILY NASAL 09/12/19 13:00 12/11/19 12:59 09/18/19 09:03 Escitalopram Oxalate (Lexapro) 5 mg DAILY ORAL 09/10/19 09:00 10/09/19 08:59 09/18/19 09:04 Famotidine (Pepcid) 20 mg DAILY ORAL 09/10/19 09:00 12/09/19 08:59 09/18/19 09:05 Finasteride (Proscar) 5 mg DAILY ORAL 09/10/19 09:00 11/05/19 15:44 09/18/19 09:05 Hydralazine HCl (Apresoline) 50 mg Q8HR ORAL 09/12/19 22:00 12/11/19 21:59 09/18/19 13:12 Isosorbide Mononitrate (Imdur) 30 mg DAILY ORAL 09/10/19 09:00 10/10/19 08:59 09/18/19 09:06 Magnesium Hydroxide (Mom) 30 ml TIDPRN PRN ORAL Constipation 09/09/19 13:00 10/09/19 12:59 09/18/19 13:12 Multivitamins (Multivitamins) 1 tab DAILY ORAL 09/10/19 09:00 10/10/19 08:59 09/18/19 09:06 Pamidronate Disodium 60 mg/ Sodium Chloride 550 ml @ 137.5 mls/ hr ONCE IVPB 09/18/19 12:00 09/18/19 14:00 09/18/19 12:11 Tamsulosin HCl (Flomax) 0.4 mg BID ORAL 09/12/19 12:00 10/06/19 20:59 09/18/19 09:03 Trazodone HCl (Desyrel) 25 mg BEDTIME ORAL 09/09/19 21:00 10/09/19 20:59 09/17/19 20:46 Valproic Acid (Depakene) 250 mg EVERY 12 HOURS NG 09/09/19 21:00 10/22/19 20:59 09/18/19 09:03 Cr Mauro MD September 18, 2019 13:17
--- NOTE | 2019-09-18 16:51 | NUR ---
NURSE NOTES: Patient no BM since 09/09. MOM given today and ineffective. Notified Dr. Echavarria. Received orders to start Dulcolax 1 supp per rectum PRN QD for constipation if MOM not effective. Orders noted and carried out.
[2019-09-18 16:55] VITALS: BP 151/57
--- NOTE | 2019-09-18 17:16 | Pulmonology Progress Note ---
Assessment/Plan Assessment/Plan IMPRESSION: 1. Pleural effusions, small bilateral. 2. Atelectasis. 3. Pulmonary edema, questionable. 4. Hypertension. 5. Hyperlipidemia. 6. positive COVID 19 7. UTI DISCUSSION: The patient is saturating well on room air I will follow as tire wrapper. No new recommendations Kimani Hahn M.D. Subjective ROS Limited/Unobtainable: Yes Interval Events: None new reported Constitutional: Reports: fever, anorexia, other - T=100.1 HEENT: Repors: no symptoms Respiratory: Reports: no symptoms Cardiovascular: Reports: no symptoms Gastrointestinal/Abdominal: Denies: nausea, vomiting, diarrhea Genitourinary: Reports: no symptoms; Denies: dysuria, hematuria, frequency, nocturia, urgency, other Neurologic: Reports: no symptoms Musculoskeletal: Denies: no symptoms, pain, swelling, stiffness, other Allergies: Coded Allergies: No Known Allergies (Unverified , 06/05/19) All Systems: reviewed and negative except above Objective Last 24 Hour Vital Signs Date Time Temp Pulse Resp B/P (MAP) Pulse Ox O2 Delivery O2 Flow Rate FiO2 09/18/19 16:55 99.1 92 20 151/57 (88) 95 09/18/19 13:12 162/63 09/18/19 12:00 100.1 95 20 162/63 (96) 96 09/18/19 09:06 160/55 09/18/19 09:05 96 160/55 09/18/19 09:00 Room Air 09/18/19 08:00 99.8 96 20 160/55 (90) 96 09/18/19 06:05 135/78 09/18/19 04:00 98.9 89 20 138/54 (82) 98 09/18/19 00:00 99.0 87 22 137/52 (80) 94 09/17/19 22:26 138/74 09/17/19 21:35 Room Air 09/17/19 20:00 98.7 98 20 147/75 (99) 95 Intake and Output 09/17/19 09/18/19 19:00 07:00 Intake Total 100 ml Balance 100 ml Intake Oral 100 ml General Appearance: cachetic HEENT: mucous membranes moist Respiratory/Chest: chest wall non-tender, lungs clear Cardiovascular: normal peripheral pulses Abdomen: soft, non tender Extremities: no edema Neurologic/Psychiatric: disoriented Current Medications Medications (Trade) Dose Ordered Sig/Kristine Route PRN Reason Start Time Stop Time Status Last Admin Dose Admin Acetaminophen (Tylenol) 650 mg Q4H PRN ORAL Fever 09/09/19 22:30 10/09/19 22:29 09/09/19 22:42 Amlodipine Besylate (Norvasc) 10 mg DAILY ORAL 09/10/19 09:00 09/28/19 08:59 09/18/19 09:05 Apixaban (Eliquis) 2.5 mg BID@0900,2100 ORAL 09/09/19 21:00 12/06/19 08:59 09/18/19 09:03 Ascorbic Acid (Vitamin C) 250 mg DAILY ORAL 09/10/19 09:00 10/10/19 08:59 09/18/19 09:05 Bisacodyl (Dulcolax) 10 mg DAILYPRN PRN RECTAL Constipation 09/18/19 17:00 12/17/19 16:59 Calcitonin [place] (Miacalcin) 1 sprays DAILY NASAL 09/12/19 13:00 12/11/19 12:59 09/18/19 09:03 Escitalopram Oxalate (Lexapro) 5 mg DAILY ORAL 09/10/19 09:00 10/09/19 08:59 09/18/19 09:04 Famotidine (Pepcid) 20 mg DAILY ORAL 09/10/19 09:00 12/09/19 08:59 09/18/19 09:05 Finasteride (Proscar) 5 mg DAILY ORAL 09/10/19 09:00 11/05/19 15:44 09/18/19 09:05 Hydralazine HCl (Apresoline) 50 mg Q8HR ORAL 09/12/19 22:00 12/11/19 21:59 09/18/19 13:12 Isosorbide Mononitrate (Imdur) 30 mg DAILY ORAL 09/10/19 09:00 10/10/19 08:59 09/18/19 09:06 Magnesium Hydroxide (Mom) 30 ml TIDPRN PRN ORAL Constipation 09/09/19 13:00 10/09/19 12:59 09/18/19 13:12 Multivitamins (Multivitamins) 1 tab DAILY ORAL 09/10/19 09:00 10/10/19 08:59 09/18/19 09:06 Tamsulosin HCl (Flomax) 0.4 mg BID ORAL 09/12/19 12:00 10/06/19 20:59 09/18/19 09:03 Trazodone HCl (Desyrel) 25 mg BEDTIME ORAL 09/09/19 21:00 10/09/19 20:59 09/17/19 20:46 Valproic Acid (Depakene) 250 mg EVERY 12 HOURS NG 09/09/19 21:00 10/22/19 20:59 09/18/19 09:03 Kimani Hahn MD September 18, 2019 17:16
[2019-09-18] MEDS: Acetaminophen 650mg/20.3ml ORAL PRN ×2 (17:31→21:19)
--- NOTE | 2019-09-18 18:43 | NUR ---
NURSE NOTES: Confirmed with Jeff from labs, covid swab specimen from today 09/17 received.
--- NOTE | 2019-09-18 19:42 | NUR ---
HAND-OFF: Report given to LUIS FERNANDO Buck. Addendum: 09/18/19 at 4 by Teagan Bergeron RN Endorsed that Covid swab was collected today.
[2019-09-18 20:00] VITALS: BP 155/61
--- NOTE | 2019-09-18 20:00 | NUR ---
NURSE NOTES: Patient received in bed, contracted in position. in room air, no signs of acute distress, repeatingly yelling "yes" but no acute distress noted. Noted with elevated temp, will re-check and administer tylenol as needed. Cooling measures to be applied. Will continue to monitor.
[2019-09-18] MEDS: TraZODone HCl 25 mg tablet ORAL SCH (21:17)
--- NOTE | 2019-09-18 21:35 | Surgery Progress Note ---
Surgery Progress Note Subjective Additional Comments no acute events labs stable exam unchanged Objective Last 24 Hour Vital Signs Date Time Temp Pulse Resp B/P (MAP) Pulse Ox O2 Delivery O2 Flow Rate FiO2 09/18/19 21:17 155/61 09/18/19 18:01 99.1 09/18/19 16:55 99.9 92 20 151/57 (88) 95 09/18/19 13:12 162/63 09/18/19 12:00 100.1 95 20 162/63 (96) 96 09/18/19 09:06 160/55 09/18/19 09:05 96 160/55 09/18/19 09:00 Room Air 09/18/19 08:00 99.8 96 20 160/55 (90) 96 09/18/19 06:05 135/78 09/18/19 04:00 98.9 89 20 138/54 (82) 98 09/18/19 00:00 99.0 87 22 137/52 (80) 94 09/17/19 22:26 138/74 I&O Intake and Output 09/17/19 09/18/19 19:00 07:00 Intake Total 100 ml Balance 100 ml Intake Oral 100 ml Dressing: other Wound: other Drains: other Cardiovascular: RSR Respiratory: decreased breath sounds Abdomen: soft, non-tender, present bowel sounds Extremities: no cyanosis Plan Problems: (1) Dehydration (2) Anemia (3) UTI (urinary tract infection) (4) Falls frequently (5) Renal failure (ARF), acute on chronic (6) Encephalopathy due to metabolic factor or toxin (7) CHF (congestive heart failure) (8) Gross hematuria (9) Deep tissue injury Assessment & Plan: Pt presented on admission with multiple pressure injuries which were resolving. 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 Base of injury is purple with maroon borders . Surrounding non-blanching erythema to R and Gluteal cheeks. Scrotum is erythematous. R and L heels are boggy but each area blanchable. Tx.Plan: Apply Moisture Barrier Paste to Sacrum. Cover with Optifoam drsg. Change every 3 days and prn. Apply Moisture Barrier Paste to bilat groin and scrotum with each incontinence care. Apply Cavilon Skin Barrier to both heels. Cover each heel with Optifoam drsg. Change every 7 days and prn. Reposition at least every 2hours or as tolerated. Off-load heels with pillow. APM/MEI Mattress overlay. (10) Malnutrition Assessment & Plan: DAILY ESTIMATED NEEDS: Needs based on Wound, 66.8kg 28-33 kcals/kg 9867-1297 total kcals 1.25-1.5 g protein/kg 84-100 g total protein 25-30 mL/kg 9815-4400 total fluid mLs NUTRITION DIAGNOSIS: Swallowing difficulty r/t dysphagia and ams as evidenced by s/p RETREAD MOLD OPERATOR eval, poor cognition, pt on liquify puree texture diet w/ HTL, now with improved intake. CURRENT DIET: Liquify puree HTL Regular PO DIET RECOMMENDATIONS: Maintain Regular diet, texture per RETREAD MOLD OPERATOR ADDITIONAL RECOMMENDATIONS: 1) Ensure Enlive TID w/ meals (350kcal/20g prot per bottle) 2) Maintain calibrated bed scale wts EMR wt: 160# vs Bed scale wt: 147#-> bed now reads 109.8# 3) Consider D5 IVF (vs 1/2 NS running currently)- Na elevated to prevent hypoglycemia given poor/variable PO 4) Wound care: MVI 1 tab QD + Vit C 250mg QD+ Jacob BID 5) Monitor lytes, replete as needed (11) Severe protein-calorie malnutrition Sai Aaron September 18, 2019 21:35
[2019-09-19] VITALS: BP 150/59
[2019-09-19 04:00] VITALS: BP 156/69
[2019-09-19 04:07] LABS: BASOPHILS % (AUTO) 1.8 % (0.0-2.0); HEMATOCRIT 24.9 % (42.0-52.0); HEMOGLOBIN 8.5 G/DL (14.2-18.0); LYMPHOCYTES % (AUTO) 12.5 % (20.0-45.0); MEAN CORPUSCULAR VOLUME 84 FL (80-99); MONOCYTES % (AUTO) 13.9 % (1.0-10.0); NEUTROPHILS % (AUTO) 71.8 % (45.0-75.0); PLATELET COUNT 276 K/UL (150-450); RED BLOOD COUNT 2.95 M/UL (4.70-6.10); RED CELL DISTRIBUTION WIDTH 12.9 % (11.6-14.8); WHITE BLOOD COUNT 8.1 K/UL (4.8-10.8)
[2019-09-19 04:18] LABS: PHOSPHORUS 2.3 MG/DL (2.5-4.9)
[2019-09-19 04:25] LABS: ALBUMIN 1.9 G/DL (3.4-5.0); ALBUMIN/GLOBULIN RATIO 0.4 (1.0-2.7); ALKALINE PHOSPHATASE 89 U/L (46-116); ANION GAP 5 mmol/L (5-15); ASPARTATE AMINO TRANSFERASE 49 U/L (15-37); BILIRUBIN,TOTAL 0.3 MG/DL (0.2-1.0); BLOOD UREA NITROGEN 31 mg/dL (7-18); CALCIUM 9.7 MG/DL (8.5-10.1); CARBON DIOXIDE 27 MMOL/L (21-32); CHLORIDE 110 MMOL/L (98-107); CREATININE 1.7 MG/DL (0.55-1.30); SODIUM 142 MMOL/L (136-145)
[2019-09-19 04:39] LABS: ALANINE AMINOTRANSFERASE 25 U/L (12-78)
[2019-09-19] MEDS: HydrALAZINE 50mg tab ORAL SCH ×3 (05:51→21:10)
--- NOTE | 2019-09-19 07:22 | NUR ---
HAND-OFF: Report given to Teagan GOULD.
--- NOTE | 2019-09-19 07:29 | NUR ---
NURSE NOTES: Report received from Heber GOULD. Patient seen on rounds, asleep, not in distress, tolerating room air. DNR/DNI. Nurse reports fever overnight. PIV on left upper arm patent and intact. Condom catheter secure and draining well. Dressings on sacrum and bilateral heels intact. Bed low and locked, siderails up x2, zone alarms on 1, will continue to monitor.
[2019-09-19 08:00] VITALS: BP 145/59
[2019-09-19] MEDS: Valproic Acid 250mg/5ml Liquid NG SCH ×2 (08:34→21:09)
[2019-09-19] MEDS: Ascorbic Acid 500mg tab ORAL SCH (08:35)
[2019-09-19] MEDS: Eliquis 2.5mg tablet ORAL SCH ×2 (08:36→21:10)
[2019-09-19] MEDS: Tamsulosin 0.4mg cap ORAL SCH ×2 (08:36→18:04)
[2019-09-19] MEDS: Imdur 30mg tab ORAL SCH (08:37)
--- NOTE | 2019-09-19 09:15 | Progress Note ---
DATE: 09/18/2019 SUBJECTIVE: The patient is in bed, in soft restraints for some time, has episodes of agitation. Still requires to be on psychotropic medication. At times, he is agitated and attempts to come out of bed and needs redirection. MENTAL STATUS EXAMINATION: Alert and oriented times self, place. Mood is agitated. Affect is flat. Thought process is concrete. Thought content, no suicidal or homicidal ideation. Cognition is impaired. Insight and judgment is impaired. ASSESSMENT: Dementia with behavior disturbance. PLAN: 1. Depakote 250 b.i.d. 2. Discussed with the nurse. Loco Luu M.D. DR: Sherin JOB#: [id number] CC:
--- NOTE | 2019-09-19 09:24 | Diagnostic Imaging Report ---
Indication: Cough Technique: One view of the chest Comparison: 09/07/2019 Findings: Some reticular opacities at left lung base and right infrahilar region are similar to the prior exam, may represent persistent infiltrate or chronic scarring. Triangular opacity in the cardiac apex on the left may representing overlapping soft tissue shadow. No new infiltrates. Impression: Bilateral basilar reticular opacities, similar to prior exam of 09/07/2019, may reflect residual infiltrate versus chronic scarring. No new infiltrates or significant interim change
--- NOTE | 2019-09-19 10:38 | Nephrology Progress Note ---
Assessment/Plan Problem List: (1) Renal failure (ARF), acute on chronic Assessment: Serum creatinine stabilizing (2) Falls frequently (3) UTI (urinary tract infection) Assessment: and hematuria (4) Anemia (5) Dehydration (6) Encephalopathy due to metabolic factor or toxin (7) Hypercalcemia Assessment Frequent falls Acute renal failure with underlying dehydration Anemia, underlying etiology unclear UTI (urinary tract infection) Toxic metabolic encephalopathy Plan Serum creatinine is creeping up Will try 1 L of half-normal saline 1 dose of Aredia for hypercalcemia was given before We will monitor calcium and phosphorus Previously Trial of 3% saline 250 cc for hyponatremia raised serum sodium from 129- to 134 Serum creatinine overall stable, it is 1.5 today Watch serum calcium, start calcitonin nasal spray for hypercalcemia Increase hydralazine dose for better blood pressure control Patient now COVID-19 positive Start D5W for hypernatremia as needed P.o. intake variable Oral potassium supplement as needed previously: Increase Flomax to twice daily Correct electrolytes as needed Transfusion as needed 2D echocardiogram ejection fraction 60% Kidney ultrasound pending results Monitor renal parameters Avoid nephrotoxics Antibiotics for UTI Continue per consultants Subjective ROS Limited/Unobtainable: No Constitutional: Reports: malaise, weakness Objective Objective Last 24 Hour Vital Signs Date Time Temp Pulse Resp B/P (MAP) Pulse Ox O2 Delivery O2 Flow Rate FiO2 09/19/19 09:00 Room Air 09/19/19 08:37 156/69 09/19/19 08:37 91 156/69 09/19/19 08:00 98.6 94 20 145/59 (87) 94 09/19/19 05:51 156/69 09/19/19 04:00 98.3 91 20 156/69 (98) 94 09/19/19 00:00 98.9 90 20 150/59 (89) 93 09/18/19 21:49 98.9 09/18/19 21:17 155/61 09/18/19 21:00 Room Air 09/18/19 20:00 101.0 94 20 155/61 (92) 97 09/18/19 16:55 99.9 92 20 151/57 (88) 95 09/18/19 13:12 162/63 09/18/19 12:00 100.1 95 20 162/63 (96) 96 Intake and Output 09/18/19 09/19/19 19:00 07:00 Intake Total 550.0 ml 100 ml Output Total 1200 ml 250 ml Balance -650.0 ml -150 ml Intake Oral 100 ml IV Total 550.0 ml Output Urine Total 1200 ml 250 ml # Bowel Movements 1 Laboratory Tests 09/19/19 03:50: White Blood Count 8.1, Red Blood Count 2.95L, Hemoglobin 8.5L, Hematocrit 24.9L , Mean Corpuscular Volume 84, Mean Corpuscular Hemoglobin 28.7, Mean Corpuscular Hemoglobin Concent 34.1, Red Cell Distribution Width 12.9, Platelet Count 276, Mean Platelet Volume 5.1L, Neutrophils (%) (Auto) 71.8, Lymphocytes ( %) (Auto) 12.5L, Monocytes (%) (Auto) 13.9H, Eosinophils (%) (Auto) 0.0, Basophils (%) (Auto) 1.8, Sodium Level 142, Potassium Level 4.0, Chloride Level 110H, Carbon Dioxide Level 27, Anion Gap 5, Blood Urea Nitrogen 31H, Creatinine 1.7H, Estimat Glomerular Filtration Rate 38.6, Glucose Level 108H, Uric Acid 5.9 , Calcium Level 9.7, Phosphorus Level 2.3L, Magnesium Level 2.5H, Total Bilirubin 0.3, Aspartate Amino Transf (AST/SGOT) 49H, Alanine Aminotransferase ( ALT/SGPT) 25, Alkaline Phosphatase 89, Total Protein 6.2L, Albumin 1.9L, Globulin 4.3, Albumin/Globulin Ratio 0.4L Height (Feet): 5 Height (Inches): 6.00 Weight (Pounds): 89 General Appearance: no apparent distress Cardiovascular: tachycardia Respiratory/Chest: decreased breath sounds Abdomen: distended Objective No change Juan Jade MD September 19, 2019 10:38
[2019-09-19] MEDS ORDERED: Phospha 250 Neutral tab ORAL SCH (10:45)
--- NOTE | 2019-09-19 11:09 | Infectious Diseases Prog Note ---
Assessment/Plan Assessment/Plan antibiotics : none A 1. COVID 19 pneumonia test + on 4.14.20, 4.16.20, 4.22.20, 4.27.20 test negative 4.29.20 2. Pseudomonas and Raoultella urinary tract infection s/p rx 3. Renal failure. 4. hypertension 5. cardiomyopathy 6. fever P 1. Ua and urine culture 2. observe off antibiotics 3. will follow up cultures 4. Continue isolation Subjective ROS Limited/Unobtainable: Yes Allergies: Coded Allergies: No Known Allergies (Unverified , 06/05/19) Objective Vital Signs Last 24 Hour Vital Signs Date Time Temp Pulse Resp B/P (MAP) Pulse Ox O2 Delivery O2 Flow Rate FiO2 09/19/19 09:00 Room Air 09/19/19 08:37 156/69 09/19/19 08:37 91 156/69 09/19/19 08:00 98.6 94 20 145/59 (87) 94 09/19/19 05:51 156/69 09/19/19 04:00 98.3 91 20 156/69 (98) 94 09/19/19 00:00 98.9 90 20 150/59 (89) 93 09/18/19 21:49 98.9 09/18/19 21:17 155/61 09/18/19 21:00 Room Air 09/18/19 20:00 101.0 94 20 155/61 (92) 97 09/18/19 16:55 99.9 92 20 151/57 (88) 95 09/18/19 13:12 162/63 09/18/19 12:00 100.1 95 20 162/63 (96) 96 Height (Feet): 5 Height (Inches): 6.00 Weight (Pounds): 89 Laboratory Tests Test 09/19/19 03:50 White Blood Count 8.1 K/UL (4.8-10.8) Red Blood Count 2.95 M/UL (4.70-6.10) L Hemoglobin 8.5 G/DL (14.2-18.0) L Hematocrit 24.9 % (42.0-52.0) L Mean Corpuscular Volume 84 FL (80-99) Mean Corpuscular Hemoglobin 28.7 PG (27.0-31.0) Mean Corpuscular Hemoglobin Concent 34.1 G/DL (32.0-36.0) Red Cell Distribution Width 12.9 % (11.6-14.8) Platelet Count 276 K/UL (150-450) Mean Platelet Volume 5.1 FL (6.5-10.1) L Neutrophils (%) (Auto) 71.8 % (45.0-75.0) Lymphocytes (%) (Auto) 12.5 % (20.0-45.0) L Monocytes (%) (Auto) 13.9 % (1.0-10.0) H Eosinophils (%) (Auto) 0.0 % (0.0-3.0) Basophils (%) (Auto) 1.8 % (0.0-2.0) Sodium Level 142 MMOL/L (136-145) Potassium Level 4.0 MMOL/L (3.5-5.1) Chloride Level 110 MMOL/L (98-107) H Carbon Dioxide Level 27 MMOL/L (21-32) Anion Gap 5 mmol/L (5-15) Blood Urea Nitrogen 31 mg/dL (7-18) H Creatinine 1.7 MG/DL (0.55-1.30) H Estimat Glomerular Filtration Rate 38.6 mL/min (>60) Glucose Level 108 MG/DL (74-106) H Uric Acid 5.9 MG/DL (2.6-7.2) Calcium Level 9.7 MG/DL (8.5-10.1) Phosphorus Level 2.3 MG/DL (2.5-4.9) L Magnesium Level 2.5 MG/DL (1.8-2.4) H Total Bilirubin 0.3 MG/DL (0.2-1.0) Aspartate Amino Transf (AST/SGOT) 49 U/L (15-37) H Alanine Aminotransferase (ALT/SGPT) 25 U/L (12-78) Alkaline Phosphatase 89 U/L (46-116) Total Protein 6.2 G/DL (6.4-8.2) L Albumin 1.9 G/DL (3.4-5.0) L Globulin 4.3 g/dL Albumin/Globulin Ratio 0.4 (1.0-2.7) L Current Medications Medications (Trade) Dose Ordered Sig/Kristine Route PRN Reason Start Time Stop Time Status Last Admin Dose Admin Acetaminophen (Tylenol) 650 mg Q4H PRN ORAL Fever 09/09/19 22:30 10/09/19 22:29 09/18/19 21:19 Amlodipine Besylate (Norvasc) 10 mg DAILY ORAL 09/10/19 09:00 09/28/19 08:59 09/19/19 08:37 Apixaban (Eliquis) 2.5 mg BID@0900,2100 ORAL 09/09/19 21:00 12/06/19 08:59 09/19/19 08:36 Ascorbic Acid (Vitamin C) 250 mg DAILY ORAL 09/10/19 09:00 10/10/19 08:59 09/19/19 08:35 Bisacodyl (Dulcolax) 10 mg DAILYPRN PRN RECTAL Constipation 09/18/19 17:00 12/17/19 16:59 Calcitonin [place] (Miacalcin) 1 sprays DAILY NASAL 09/12/19 13:00 12/11/19 12:59 09/19/19 08:34 Escitalopram Oxalate (Lexapro) 5 mg DAILY ORAL 09/10/19 09:00 10/09/19 08:59 09/19/19 08:36 Famotidine (Pepcid) 20 mg DAILY ORAL 09/10/19 09:00 12/09/19 08:59 09/19/19 08:36 Finasteride (Proscar) 5 mg DAILY ORAL 09/10/19 09:00 11/05/19 15:44 09/19/19 08:36 Hydralazine HCl (Apresoline) 50 mg Q8HR ORAL 09/12/19 22:00 12/11/19 21:59 09/19/19 05:51 Isosorbide Mononitrate (Imdur) 30 mg DAILY ORAL 09/10/19 09:00 10/10/19 08:59 09/19/19 08:37 Multivitamins (Multivitamins) 1 tab DAILY ORAL 09/10/19 09:00 10/10/19 08:59 09/19/19 08:36 Phosphorus (Phospha 250 Neutral) 500 mg ONCE ORAL 09/19/19 10:45 09/19/19 12:00 09/19/19 10:54 Sodium Chloride 1,000 ml @ 100 mls/hr Q10H IV 09/19/19 10:45 09/19/19 20:44 09/19/19 10:52 Tamsulosin HCl (Flomax) 0.4 mg BID ORAL 09/12/19 12:00 10/06/19 20:59 09/19/19 08:36 Trazodone HCl (Desyrel) 25 mg BEDTIME ORAL 09/09/19 21:00 10/09/19 20:59 09/18/19 21:17 Valproic Acid (Depakene) 250 mg EVERY 12 HOURS NG 09/09/19 21:00 10/22/19 20:59 09/19/19 08:34 Gonzalez Stephens MD September 19, 2019 11:09
--- NOTE | 2019-09-19 11:54 | Pulmonology Progress Note ---
Assessment/Plan Assessment/Plan IMPRESSION: 1. Pleural effusions, small bilateral. 2. Atelectasis. 3. Pulmonary edema, questionable. 4. Hypertension. 5. Hyperlipidemia. 6. positive COVID 19 7. 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 No new recommendations Kimani Hahn M.D. Subjective ROS Limited/Unobtainable: Yes Interval Events: None new reported Constitutional: Reports: fever, anorexia, other - T=100.1 HEENT: Repors: no symptoms Respiratory: Reports: no symptoms Cardiovascular: Reports: no symptoms Gastrointestinal/Abdominal: Denies: nausea, vomiting, diarrhea Genitourinary: Reports: no symptoms; Denies: dysuria, hematuria, frequency, nocturia, urgency, other Neurologic: Reports: no symptoms Musculoskeletal: Denies: no symptoms, pain, swelling, stiffness, other Allergies: Coded Allergies: No Known Allergies (Unverified , 06/05/19) All Systems: reviewed and negative except above Objective Last 24 Hour Vital Signs Date Time Temp Pulse Resp B/P (MAP) Pulse Ox O2 Delivery O2 Flow Rate FiO2 09/19/19 09:00 Room Air 09/19/19 08:37 156/69 09/19/19 08:37 91 156/69 09/19/19 08:00 98.6 94 20 145/59 (87) 94 09/19/19 05:51 156/69 09/19/19 04:00 98.3 91 20 156/69 (98) 94 09/19/19 00:00 98.9 90 20 150/59 (89) 93 09/18/19 21:49 98.9 09/18/19 21:17 155/61 09/18/19 21:00 Room Air 09/18/19 20:00 101.0 94 20 155/61 (92) 97 09/18/19 16:55 99.9 92 20 151/57 (88) 95 09/18/19 13:12 162/63 09/18/19 12:00 100.1 95 20 162/63 (96) 96 Intake and Output 09/18/19 09/19/19 19:00 07:00 Intake Total 550.0 ml 100 ml Output Total 1200 ml 250 ml Balance -650.0 ml -150 ml Intake Oral 100 ml IV Total 550.0 ml Output Urine Total 1200 ml 250 ml # Bowel Movements 1 General Appearance: cachetic HEENT: mucous membranes moist Respiratory/Chest: chest wall non-tender, lungs clear Cardiovascular: normal peripheral pulses Abdomen: soft, non tender Extremities: no edema Neurologic/Psychiatric: disoriented Laboratory Tests 09/19/19 03:50: White Blood Count 8.1, Red Blood Count 2.95L, Hemoglobin 8.5L, Hematocrit 24.9L , Mean Corpuscular Volume 84, Mean Corpuscular Hemoglobin 28.7, Mean Corpuscular Hemoglobin Concent 34.1, Red Cell Distribution Width 12.9, Platelet Count 276, Mean Platelet Volume 5.1L, Neutrophils (%) (Auto) 71.8, Lymphocytes ( %) (Auto) 12.5L, Monocytes (%) (Auto) 13.9H, Eosinophils (%) (Auto) 0.0, Basophils (%) (Auto) 1.8, Sodium Level 142, Potassium Level 4.0, Chloride Level 110H, Carbon Dioxide Level 27, Anion Gap 5, Blood Urea Nitrogen 31H, Creatinine 1.7H, Estimat Glomerular Filtration Rate 38.6, Glucose Level 108H, Uric Acid 5.9 , Calcium Level 9.7, Phosphorus Level 2.3L, Magnesium Level 2.5H, Total Bilirubin 0.3, Aspartate Amino Transf (AST/SGOT) 49H, Alanine Aminotransferase ( ALT/SGPT) 25, Alkaline Phosphatase 89, Total Protein 6.2L, Albumin 1.9L, Globulin 4.3, Albumin/Globulin Ratio 0.4L Current Medications Medications (Trade) Dose Ordered Sig/Kristine Route PRN Reason Start Time Stop Time Status Last Admin Dose Admin Acetaminophen (Tylenol) 650 mg Q4H PRN ORAL Fever 09/09/19 22:30 10/09/19 22:29 09/18/19 21:19 Amlodipine Besylate (Norvasc) 10 mg DAILY ORAL 09/10/19 09:00 09/28/19 08:59 09/19/19 08:37 Apixaban (Eliquis) 2.5 mg BID@0900,2100 ORAL 09/09/19 21:00 12/06/19 08:59 09/19/19 08:36 Ascorbic Acid (Vitamin C) 250 mg DAILY ORAL 09/10/19 09:00 10/10/19 08:59 09/19/19 08:35 Bisacodyl (Dulcolax) 10 mg DAILYPRN PRN RECTAL Constipation 09/18/19 17:00 12/17/19 16:59 Calcitonin [place] (Miacalcin) 1 sprays DAILY NASAL 09/12/19 13:00 12/11/19 12:59 09/19/19 08:34 Escitalopram Oxalate (Lexapro) 5 mg DAILY ORAL 09/10/19 09:00 10/09/19 08:59 09/19/19 08:36 Famotidine (Pepcid) 20 mg DAILY ORAL 09/10/19 09:00 12/09/19 08:59 09/19/19 08:36 Finasteride (Proscar) 5 mg DAILY ORAL 09/10/19 09:00 11/05/19 15:44 09/19/19 08:36 Hydralazine HCl (Apresoline) 50 mg Q8HR ORAL 09/12/19 22:00 12/11/19 21:59 09/19/19 05:51 Isosorbide Mononitrate (Imdur) 30 mg DAILY ORAL 09/10/19 09:00 10/10/19 08:59 09/19/19 08:37 Multivitamins (Multivitamins) 1 tab DAILY ORAL 09/10/19 09:00 10/10/19 08:59 09/19/19 08:36 Phosphorus (Phospha 250 Neutral) 500 mg ONCE ORAL 09/19/19 10:45 09/19/19 12:00 09/19/19 10:54 Sodium Chloride 1,000 ml @ 100 mls/hr Q10H IV 09/19/19 10:45 09/19/19 20:44 09/19/19 10:52 Tamsulosin HCl (Flomax) 0.4 mg BID ORAL 09/12/19 12:00 10/06/19 20:59 09/19/19 08:36 Trazodone HCl (Desyrel) 25 mg BEDTIME ORAL 09/09/19 21:00 10/09/19 20:59 09/18/19 21:17 Valproic Acid (Depakene) 250 mg EVERY 12 HOURS NG 09/09/19 21:00 10/22/19 20:59 09/19/19 08:34 Kimani Hahn MD September 19, 2019 11:54
[2019-09-19 12:00] VITALS: BP 117/42
--- NOTE | 2019-09-19 12:22 | NUR ---
*-*DISCHARGE PLANNING*-* PATIENT HAS BEEN REFERRED TO: DIAZ VASQUEZ P: [phone] F: [phone] ~~~~~~~~~~~~~~CLINICALS FAXED~~~~~~~~~~~~~~~
[2019-09-19 12:28] LABS: APPEARANCE,URINE SLIGHTLY CLOUDY; BILIRUBIN, URINE NEGATIVE (NEGATIVE); GLUCOSE, URINE (UA) NEGATIVE (NEGATIVE); KETONES,URINE NEGATIVE (NEGATIVE); LEUKOCYTE ESTERASE ,URINE NEGATIVE (NEGATIVE); NITRITE,URINE NEGATIVE (NEGATIVE); PH,URINE 6 (4.5-8.0); PROTEIN,URINE 3+ (NEGATIVE); UROBILINOGEN,URINE NORMAL MG/DL (0.0-1.0)
[2019-09-19 12:32] LABS: COLOR,URINE YELLOW
--- NOTE | 2019-09-19 12:33 | NUR ---
CASE MANAGEMENT:REVIEW 09/17/19 SI: COVID 19 NEGATIVE X1 . PNEUMONIA 98.5 60 18 117/50 98% ON RA NA+ 134 BUN/CREAT 27/1.5 ALBUMIN 1.9 IS: IV NS@ 30ML/HR LEXAPRO PO QD K-DUR PO X1 DEPAKENE PO BID ELIQUIS PO BID FLOMAX PO QHS NORVASC PO QD IMDUR PO QD HYDRALAZINE PO TID MIACALCIN NASAL QD PROSCAR PO QD PROTONIX PO QD NITRO BID 1" Q6HRS : 4E MED SURG STATUS DCP: [facility] PLAN: REPEAT COVID-19 -09/13 NOT DETECTED COVID-19 + (09/12/19) NO RECORDED FEVERS CASE MANAGEMENT:REVIEW 09/18/19 SI: COVID 19 PNEUMONIA 101.0 94 20 155/61 97% ON RA NO LABS TODAY IS: IV NS@ 30ML/HR LEXAPRO PO QD K-DUR PO X1 DEPAKENE PO BID ELIQUIS PO BID FLOMAX PO QHS NORVASC PO QD IMDUR PO QD HYDRALAZINE PO TID MIACALCIN NASAL QD PROSCAR PO QD PROTONIX PO QD NITRO BID 1" Q6HRS : 4E MED SURG STATUS DCP: [facility] PLAN: REPEAT COVID-19-09/17 REPEAT COVID-19 -09/13 NOT DETECTED COVID-19 + (09/12/19) SPIKING FEVERS AGAIN CONTROL FEVERS UA AND CULTURES ORDERED CASE MANAGEMENT:REVIEW 09/19/19 SI: NOW COVID 19 X1 . SMALL BILATERAL PLEURAL EFFUSION . ATELECTASIS . PNEUMONIA 98.6 94 20 145/59 94% ON RA H/H 8.5/24.9 CL- 110 BUN/CREAT 31/1.7 PHOS 2.3 MG 2.5 ALB 1.9 IS: PHOSPHA NEUTRAL PO X1 IV NS@ 100ML/HR X1 LEXAPRO PO QD DEPAKENE NG BID ELIQUIS PO BID FLOMAX PO BID NORVASC PO QD IMDUR PO QD HYDRALAZINE PO TID MIACALCIN NASAL QD PROSCAR PO QD PROTONIX PO QD NITRO BID 1" Q6HRS CHEST X-RAY- Bilateral basilar reticular opacities, similar to prior exam of 09/07/2019, may reflect residual infiltrate versus chronic scarring. : 4E MED SURG STATUS DCP: [facility] PLAN: CREATININE SLOWLY INCREASING - IVF BOLUS GIVEN OBSERVE ON AND RESTRAINTS AGITATION MEDICATION ADJUSTED REPEAT COVID-19-09/17-PENDING REPEAT COVID-19 -09/13 NOT DETECTED COVID-19 + (09/12/19) SPIKING FEVERS AGAIN CONTROL FEVERS UA- PENDING
--- NOTE | 2019-09-19 14:21 | NUR ---
*-*INSURANCE*-* UPDATED CLINICALS AND REVIEWS HAVE BEEN FACXED TO: DEE ARAGON:GLENIS P: [phone] F: [phone] REF# [id number]
--- NOTE | 2019-09-19 15:01 | Surgery Progress Note ---
Surgery Progress Note Subjective Additional Comments no acute events resting comfortable Objective Last 24 Hour Vital Signs Date Time Temp Pulse Resp B/P (MAP) Pulse Ox O2 Delivery O2 Flow Rate FiO2 09/19/19 13:28 117/42 09/19/19 12:00 97.4 80 18 117/42 (67) 96 09/19/19 09:00 Room Air 09/19/19 08:37 156/69 09/19/19 08:37 91 156/69 09/19/19 08:00 98.6 94 20 145/59 (87) 94 09/19/19 05:51 156/69 09/19/19 04:00 98.3 91 20 156/69 (98) 94 09/19/19 00:00 98.9 90 20 150/59 (89) 93 09/18/19 21:49 98.9 09/18/19 21:17 155/61 09/18/19 21:00 Room Air 09/18/19 20:00 101.0 94 20 155/61 (92) 97 09/18/19 16:55 99.9 92 20 151/57 (88) 95 I&O Intake and Output 09/18/19 09/19/19 19:00 07:00 Intake Total 550.0 ml 100 ml Output Total 1200 ml 250 ml Balance -650.0 ml -150 ml Intake Oral 100 ml IV Total 550.0 ml Output Urine Total 1200 ml 250 ml # Bowel Movements 1 Dressing: other Wound: other Cardiovascular: RSR Respiratory: decreased breath sounds Abdomen: soft, non-tender, present bowel sounds Extremities: no cyanosis Laboratory Tests Test 09/19/19 03:50 09/19/19 11:25 White Blood Count 8.1 K/UL (4.8-10.8) Red Blood Count 2.95 M/UL (4.70-6.10) L Hemoglobin 8.5 G/DL (14.2-18.0) L Hematocrit 24.9 % (42.0-52.0) L Mean Corpuscular Volume 84 FL (80-99) Mean Corpuscular Hemoglobin 28.7 PG (27.0-31.0) Mean Corpuscular Hemoglobin Concent 34.1 G/DL (32.0-36.0) Red Cell Distribution Width 12.9 % (11.6-14.8) Platelet Count 276 K/UL (150-450) Mean Platelet Volume 5.1 FL (6.5-10.1) L Neutrophils (%) (Auto) 71.8 % (45.0-75.0) Lymphocytes (%) (Auto) 12.5 % (20.0-45.0) L Monocytes (%) (Auto) 13.9 % (1.0-10.0) H Eosinophils (%) (Auto) 0.0 % (0.0-3.0) Basophils (%) (Auto) 1.8 % (0.0-2.0) Sodium Level 142 MMOL/L (136-145) Potassium Level 4.0 MMOL/L (3.5-5.1) Chloride Level 110 MMOL/L (98-107) H Carbon Dioxide Level 27 MMOL/L (21-32) Anion Gap 5 mmol/L (5-15) Blood Urea Nitrogen 31 mg/dL (7-18) H Creatinine 1.7 MG/DL (0.55-1.30) H Estimat Glomerular Filtration Rate 38.6 mL/min (>60) Glucose Level 108 MG/DL (74-106) H Uric Acid 5.9 MG/DL (2.6-7.2) Calcium Level 9.7 MG/DL (8.5-10.1) Phosphorus Level 2.3 MG/DL (2.5-4.9) L Magnesium Level 2.5 MG/DL (1.8-2.4) H Total Bilirubin 0.3 MG/DL (0.2-1.0) Aspartate Amino Transf (AST/SGOT) 49 U/L (15-37) H Alanine Aminotransferase (ALT/SGPT) 25 U/L (12-78) Alkaline Phosphatase 89 U/L (46-116) Total Protein 6.2 G/DL (6.4-8.2) L Albumin 1.9 G/DL (3.4-5.0) L Globulin 4.3 g/dL Albumin/Globulin Ratio 0.4 (1.0-2.7) L Urine Color Yellow Urine Appearance Slightly cloudy Urine pH 6 (4.5-8.0) Urine Specific [place] 1.015 (1.005-1.035) Urine Protein 3+ (NEGATIVE) H Urine Glucose (UA) Negative (NEGATIVE) Urine Ketones Negative (NEGATIVE) Urine Blood 1+ (NEGATIVE) H Urine Nitrite Negative (NEGATIVE) Urine Bilirubin Negative (NEGATIVE) Urine Urobilinogen Normal MG/DL (0.0-1.0) Urine Leukocyte Esterase Negative (NEGATIVE) Urine RBC 2-4 /HPF (0 - 0) H Urine WBC 0-2 /HPF (0 - 0) Urine Squamous Epithelial Cells Occasional /LPF Urine Amorphous Sediment Many /LPF (NONE) H Urine Bacteria Occasional /HPF (NONE) Plan Problems: (1) Dehydration (2) Anemia (3) UTI (urinary tract infection) (4) Falls frequently (5) Renal failure (ARF), acute on chronic (6) Encephalopathy due to metabolic factor or toxin (7) CHF (congestive heart failure) (8) Gross hematuria (9) Deep tissue injury Assessment & Plan: Pt presented on admission with multiple pressure injuries which were resolving. 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 Base of injury is purple with maroon borders . Surrounding non-blanching erythema to R and Gluteal cheeks. Scrotum is erythematous. R and L heels are boggy but each area blanchable. Tx.Plan: Apply Moisture Barrier Paste to Sacrum. Cover with Optifoam drsg. Change every 3 days and prn. Apply Moisture Barrier Paste to bilat groin and scrotum with each incontinence care. Apply Cavilon Skin Barrier to both heels. Cover each heel with Optifoam drsg. Change every 7 days and prn. Reposition at least every 2hours or as tolerated. Off-load heels with pillow. APM/MEI Mattress overlay. (10) Malnutrition Assessment & Plan: DAILY ESTIMATED NEEDS: Needs based on Wound, 66.8kg 28-33 kcals/kg 5436-7615 total kcals 1.25-1.5 g protein/kg 84-100 g total protein 25-30 mL/kg 7644-1172 total fluid mLs NUTRITION DIAGNOSIS: Swallowing difficulty r/t dysphagia and ams as evidenced by s/p CAREER DEVELOPER eval, poor cognition, pt on liquify puree texture diet w/ HTL, now with improved intake. CURRENT DIET: Liquify puree HTL Regular PO DIET RECOMMENDATIONS: Maintain Regular diet, texture per CAREER DEVELOPER ADDITIONAL RECOMMENDATIONS: 1) Ensure Enlive TID w/ meals (350kcal/20g prot per bottle) 2) Maintain calibrated bed scale wts EMR wt: 160# vs Bed scale wt: 147#-> bed now reads 109.8# 3) Consider D5 IVF (vs 1/2 NS running currently)- Na elevated to prevent hypoglycemia given poor/variable PO 4) Wound care: MVI 1 tab QD + Vit C 250mg QD+ Jacob BID 5) Monitor lytes, replete as needed (11) Severe protein-calorie malnutrition Sai Aaron September 19, 2019 15:01
--- NOTE | 2019-09-19 15:58 | General Progress Note ---
Assessment/Plan Problem List: (1) CHF (congestive heart failure) ICD Codes: I50.9 - Heart failure, unspecified SNOMED: 90860704 (2) Renal failure (ARF), acute on chronic ICD Codes: N17.9 - Acute kidney failure, unspecified; N18.9 - Chronic kidney disease, unspecified SNOMED: 943620132 (3) Encephalopathy due to metabolic factor or toxin SNOMED: 244358308 (4) Gross hematuria ICD Codes: R31.0 - Gross hematuria SNOMED: 736558266 (5) Falls frequently ICD Codes: R29.6 - Repeated falls SNOMED: 630996764 (6) Dehydration ICD Codes: E86.0 - Dehydration SNOMED: 68791543 (7) UTI (urinary tract infection) ICD Codes: N39.0 - Urinary tract infection, site not specified SNOMED: 33258621 (8) Anemia ICD Codes: D64.9 - Anemia, unspecified SNOMED: 547745181 Status: stable, progressing, not improved Assessment/Plan: o2 as needed. currently stable on room air. fall precautions. monitor cxr Encourage pos. monitor labs. monitor bmp and lytes Anxiolytics as needed. Continue blood pressure treatment. DVT and stress ulcer prophylaxis. Discharge planning to [facility] facility on hold for now. will need 2 neg covid tests. Subjective ROS Limited/Unobtainable: Yes Constitutional: Reports: malaise, weakness HEENT: Reports: no symptoms Cardiovascular: Reports: no symptoms Respiratory: Reports: no symptoms Gastrointestinal/Abdominal: Reports: no symptoms Genitourinary: Reports: no symptoms Neurologic/Psychiatric: Reports: no symptoms Endocrine: Reports: no symptoms Hematologic/Lymphatic: Reports: anemia Allergies: Coded Allergies: No Known Allergies (Unverified , 06/05/19) All Systems: reviewed and negative except above Subjective No overnight events. Remains confused and agitated at times. COVID-19 PCR negative x 1. No fevers chills or cough noted. P.o. intake remains poor. labs reviewed. Objective Last 24 Hour Vital Signs Date Time Temp Pulse Resp B/P (MAP) Pulse Ox O2 Delivery O2 Flow Rate FiO2 09/19/19 13:28 117/42 09/19/19 12:00 97.4 80 18 117/42 (67) 96 09/19/19 09:00 Room Air 09/19/19 08:37 156/69 09/19/19 08:37 91 156/69 09/19/19 08:00 98.6 94 20 145/59 (87) 94 09/19/19 05:51 156/69 09/19/19 04:00 98.3 91 20 156/69 (98) 94 09/19/19 00:00 98.9 90 20 150/59 (89) 93 09/18/19 21:49 98.9 09/18/19 21:17 155/61 09/18/19 21:00 Room Air 09/18/19 20:00 101.0 94 20 155/61 (92) 97 09/18/19 16:55 99.9 92 20 151/57 (88) 95 Intake and Output 09/18/19 09/19/19 19:00 07:00 Intake Total 550.0 ml 100 ml Output Total 1200 ml 250 ml Balance -650.0 ml -150 ml Intake Oral 100 ml IV Total 550.0 ml Output Urine Total 1200 ml 250 ml # Bowel Movements 1 Laboratory Tests 09/19/19 03:50: White Blood Count 8.1, Red Blood Count 2.95L, Hemoglobin 8.5L, Hematocrit 24.9L , Mean Corpuscular Volume 84, Mean Corpuscular Hemoglobin 28.7, Mean Corpuscular Hemoglobin Concent 34.1, Red Cell Distribution Width 12.9, Platelet Count 276, Mean Platelet Volume 5.1L, Neutrophils (%) (Auto) 71.8, Lymphocytes ( %) (Auto) 12.5L, Monocytes (%) (Auto) 13.9H, Eosinophils (%) (Auto) 0.0, Basophils (%) (Auto) 1.8, Sodium Level 142, Potassium Level 4.0, Chloride Level 110H, Carbon Dioxide Level 27, Anion Gap 5, Blood Urea Nitrogen 31H, Creatinine 1.7H, Estimat Glomerular Filtration Rate 38.6, Glucose Level 108H, Uric Acid 5.9 , Calcium Level 9.7, Phosphorus Level 2.3L, Magnesium Level 2.5H, Total Bilirubin 0.3, Aspartate Amino Transf (AST/SGOT) 49H, Alanine Aminotransferase ( ALT/SGPT) 25, Alkaline Phosphatase 89, Total Protein 6.2L, Albumin 1.9L, Globulin 4.3, Albumin/Globulin Ratio 0.4L 09/19/19 11:25: Urine Color Yellow, Urine Appearance Slightly cloudy, Urine pH 6, Urine Specific [place] 1.015, Urine Protein 3+H, Urine Glucose (UA) Negative, Urine Ketones Negative, Urine Blood 1+H, Urine Nitrite Negative, Urine Bilirubin Negative, Urine Urobilinogen Normal, Urine Leukocyte Esterase Negative, Urine RBC 2-4H, Urine WBC 0-2, Urine Squamous Epithelial Cells Occasional, Urine Amorphous Sediment ManyH, Urine Bacteria Occasional Height (Feet): 5 Height (Inches): 6.00 Weight (Pounds): 89 Objective General Appearance: WD/WN, alert, confused Neck: supple Cardiovascular: regular rhythm Respiratory/Chest: rhonchi - bilaterally Abdomen: normal bowel sounds, non tender, soft, no organomegaly, no mass Edema: no edema noted Arm (L), no edema noted Arm (R), no edema noted Leg (L), no edema noted Leg (R), no edema noted Pedal (L), no edema noted Pedal (R), no edema noted Generalized Neurologic: lpn medical assistant II-XII grossly normal, alert, responsive Iggy Echavarria MD September 19, 2019 15:58
[2019-09-19 16:00] VITALS: BP 121/53
--- NOTE | 2019-09-19 16:15 | NUR ---
*-*DISCHARGE PLANNING*-* PATIENT HAS BEEN REFERRED TO: [facility] P: [phone] PLACED MULTIPLE CALLS, THROUGHOUT THE DAY, NO ANSWER, NO RESPONSE
--- NOTE | 2019-09-19 17:40 | Urology Progress Note ---
Assessment/Plan Status: stable, progressing, not improved Assessment/Plan: 1. Gross hematuria hx, presumably secondary to Doshi trauma, resolved. 2. BPH. 3. Urinary retention. 4. Neurogenic bladder. 5. Pyuria?UTI/colonized. 6. Proteinuria. 7. Renal insufficiency, which appears to be acute on chronic. 8. Rule out urethral stricture. monitor clinically doshi out, voiding/incontinent on proscar and flomax s/p abx restraints PRN cysto at some point monitor PVR and reinsert doshi PRN renal imaging? COVID (+) hx Eliquis resumed monitor for bleeding Subjective Allergies: Coded Allergies: No Known Allergies (Unverified , 06/05/19) Subjective all noted, confused, doshi out, incontinent, condom cath Objective Last 24 Hour Vital Signs Date Time Temp Pulse Resp B/P (MAP) Pulse Ox O2 Delivery O2 Flow Rate FiO2 09/19/19 16:00 98.3 75 18 121/53 (75) 96 09/19/19 13:28 117/42 09/19/19 12:00 97.4 80 18 117/42 (67) 96 09/19/19 09:00 Room Air 09/19/19 08:37 156/69 09/19/19 08:37 91 156/69 09/19/19 08:00 98.6 94 20 145/59 (87) 94 09/19/19 05:51 156/69 09/19/19 04:00 98.3 91 20 156/69 (98) 94 09/19/19 00:00 98.9 90 20 150/59 (89) 93 09/18/19 21:49 98.9 09/18/19 21:17 155/61 09/18/19 21:00 Room Air 09/18/19 20:00 101.0 94 20 155/61 (92) 97 Intake and Output 09/18/19 09/19/19 19:00 07:00 Intake Total 550.0 ml 100 ml Output Total 1200 ml 250 ml Balance -650.0 ml -150 ml Intake Oral 100 ml IV Total 550.0 ml Output Urine Total 1200 ml 250 ml # Bowel Movements 1 Microbiology Date/Time Source Procedure Growth Status 09/14/19 12:55 Nasopharynx Coronavirus COVID-19 PCR ([facility]OS[facility]) - Final Complete 08/28/19 12:31 Indwelling Cath Urine Culture - Final Pseudomonas Aeruginosa Raoultella [place] Complete 08/06/19 04:45 Rectum VRE Culture - Final NO VANCOMYCIN RESISTANT ENTEROCOCCUS ... Complete Current Medications Medications (Trade) Dose Ordered Sig/Kristine Route PRN Reason Start Time Stop Time Status Last Admin Dose Admin Acetaminophen (Tylenol) 650 mg Q4H PRN ORAL Fever 09/09/19 22:30 10/09/19 22:29 09/18/19 21:19 Amlodipine Besylate (Norvasc) 10 mg DAILY ORAL 09/10/19 09:00 09/28/19 08:59 09/19/19 08:37 Apixaban (Eliquis) 2.5 mg BID@0900,2100 ORAL 09/09/19 21:00 12/06/19 08:59 09/19/19 08:36 Ascorbic Acid (Vitamin C) 250 mg DAILY ORAL 09/10/19 09:00 10/10/19 08:59 09/19/19 08:35 Bisacodyl (Dulcolax) 10 mg DAILYPRN PRN RECTAL Constipation 09/18/19 17:00 12/17/19 16:59 Calcitonin [place] (Miacalcin) 1 sprays DAILY NASAL 09/12/19 13:00 12/11/19 12:59 09/19/19 08:34 Escitalopram Oxalate (Lexapro) 5 mg DAILY ORAL 09/10/19 09:00 10/09/19 08:59 09/19/19 08:36 Famotidine (Pepcid) 20 mg DAILY ORAL 09/10/19 09:00 12/09/19 08:59 09/19/19 08:36 Finasteride (Proscar) 5 mg DAILY ORAL 09/10/19 09:00 11/05/19 15:44 09/19/19 08:36 Hydralazine HCl (Apresoline) 50 mg Q8HR ORAL 09/12/19 22:00 12/11/19 21:59 09/19/19 05:51 Isosorbide Mononitrate (Imdur) 30 mg DAILY ORAL 09/10/19 09:00 10/10/19 08:59 09/19/19 08:37 Multivitamins (Multivitamins) 1 tab DAILY ORAL 09/10/19 09:00 10/10/19 08:59 09/19/19 08:36 Sodium Chloride 1,000 ml @ 100 mls/hr Q10H IV 09/19/19 10:45 09/19/19 20:44 09/19/19 10:52 Tamsulosin HCl (Flomax) 0.4 mg BID ORAL 09/12/19 12:00 10/06/19 20:59 09/19/19 08:36 Trazodone HCl (Desyrel) 25 mg BEDTIME ORAL 09/09/19 21:00 10/09/19 20:59 09/18/19 21:17 Valproic Acid (Depakene) 250 mg EVERY 12 HOURS NG 09/09/19 21:00 10/22/19 20:59 09/19/19 08:34 Laboratory Tests 09/19/19 03:50: White Blood Count 8.1, Red Blood Count 2.95L, Hemoglobin 8.5L, Hematocrit 24.9L , Mean Corpuscular Volume 84, Mean Corpuscular Hemoglobin 28.7, Mean Corpuscular Hemoglobin Concent 34.1, Red Cell Distribution Width 12.9, Platelet Count 276, Mean Platelet Volume 5.1L, Neutrophils (%) (Auto) 71.8, Lymphocytes ( %) (Auto) 12.5L, Monocytes (%) (Auto) 13.9H, Eosinophils (%) (Auto) 0.0, Basophils (%) (Auto) 1.8, Sodium Level 142, Potassium Level 4.0, Chloride Level 110H, Carbon Dioxide Level 27, Anion Gap 5, Blood Urea Nitrogen 31H, Creatinine 1.7H, Estimat Glomerular Filtration Rate 38.6, Glucose Level 108H, Uric Acid 5.9 , Calcium Level 9.7, Phosphorus Level 2.3L, Magnesium Level 2.5H, Total Bilirubin 0.3, Aspartate Amino Transf (AST/SGOT) 49H, Alanine Aminotransferase ( ALT/SGPT) 25, Alkaline Phosphatase 89, Total Protein 6.2L, Albumin 1.9L, Globulin 4.3, Albumin/Globulin Ratio 0.4L 09/19/19 11:25: Urine Color Yellow, Urine Appearance Slightly cloudy, Urine pH 6, Urine Specific [place] 1.015, Urine Protein 3+H, Urine Glucose (UA) Negative, Urine Ketones Negative, Urine Blood 1+H, Urine Nitrite Negative, Urine Bilirubin Negative, Urine Urobilinogen Normal, Urine Leukocyte Esterase Negative, Urine RBC 2-4H, Urine WBC 0-2, Urine Squamous Epithelial Cells Occasional, Urine Amorphous Sediment ManyH, Urine Bacteria Occasional Height (Feet): 5 Height (Inches): 6.00 Weight (Pounds): 89 Objective exam stable abdomen soft urine grossly yellow Miki Calzada MD September 19, 2019 17:40
--- NOTE | 2019-09-19 19:16 | NUR ---
HAND-OFF: Report given to Rigoberto GOULD.
--- NOTE | 2019-09-19 19:30 | NUR ---
NURSE NOTES: Patient in bed, on room air, no SOB noted, no complaint of pain. Safety measures rendered. Will continue plan of care.
[2019-09-19 20:00] VITALS: BP 116/66
[2019-09-19] MEDS: TraZODone HCl 25 mg tablet ORAL SCH (21:10)
--- NOTE | 2019-09-19 22:29 | Progress Note ---
DATE: 09/18/2019 CARDIOLOGY PROGRESS NOTE LATE ENTRY SUBJECTIVE: The patient is saturating well but having temperatures up to 100.1, oxygen saturation 96% on room air. PHYSICAL EXAMINATION: VITAL SIGNS: Blood pressure 137/52 to 162/63, monitored rhythm, atrial fibrillation. LUNGS: Bilateral breath sounds. Few rhonchi. CARDIAC: Irregularly irregular rhythm. Normal S1 and S2. A 2/6 systolic apical murmur unchanged. ABDOMEN: Soft. EXTREMITIES: No edema. LABORATORY DATA: No new laboratories today. IMPRESSION: 1. COVID-19 pneumonia. 2. Valvular cardiomyopathy. 3. Paroxysmal atrial fibrillation. 4. Recurring fevers. PLAN: 1. Recheck urinalysis. 2. Continue respiratory hygiene. 3. Titrate antihypertensives and anti-failure regimen. 4. Cardioembolic prophylaxis on board with apixaban. 5. Blood cultures to be obtained for the fever spikes above 100.3. Gamaliel Salas M.D. DR: Lexii JOB#: [id number] CC:
--- NOTE | 2019-09-19 22:29 | Progress Note ---
DATE: 09/19/2019 CARDIOLOGY PROGRESS NOTE SUBJECTIVE: The patient has no new complaints. There is no evidence of respiratory distress, oxygen saturations remain adequate on room air. The patient's repeat chest radiograph reveals slight improvement in prior infiltrative process. PHYSICAL EXAMINATION: VITAL SIGNS: temperature 101 max last night at 8 p.m. Blood pressure now 156/69, pulse 91, respiratory rate 20. Monitor, rhythm irregular. LUNGS: Bilateral breath sounds. Few rhonchi. CARDIAC: Irregularly irregular rhythm. Normal S1, S2. ABDOMEN: Soft. EXTREMITIES: No edema. LABORATORY AND DIAGNOSTIC DATA: Urinalysis with 2 to 4 red cells, 0 to 2 white cells. Sodium 142, potassium 4, bicarb 27, BUN 31, creatinine 1.7. Magnesium 2.5 and phosphorus 2.2. Albumin 1.9. White count is 8.1, hemoglobin 8.5. IMPRESSION: 1. COVID-19 pneumonia, recovering. 2. Hypoxia, resolved. 3. Recurring fever last night raises concern, source not clear. 4. Valvular cardiomyopathy . 5. Compensated congestive heart failure. 6. Conduction system disease with paroxysmal atrial fibrillation, rate controlled. PLAN: 1. Fever work up. 2. Continue current cardiovascular regimen. 3. Increased risk for endocarditis. If positive blood cultures, we will need to address further by transesophageal echocardiogram, possibly. 4. Medication regimen reviewed and reconciled, we will follow. Gamaliel Salas M.D. DR: Lexii JOB#: [id number] CC:
[2019-09-20] VITALS: BP 131/62
--- NOTE | 2019-09-20 01:14 | Progress Note ---
DATE: 09/19/2019 SUBJECTIVE: The patient is in bed, confused, disoriented. Continues to have episodes of agitation. Awaiting placement, per nurse he is manageable. MENTAL STATUS EXAMINATION: Alert and disoriented. Mood is neutral. Affect is flat. Thought process is concrete. Thought content, no suicidal or homicidal ideation. Cognition is impaired. Insight and judgment, impaired. ASSESSMENT: Dementia with behavior disturbance. PLAN: DC the citalopram, Depakote 250 mg b.i.d., continue trazodone. Continue to follow and readjust the medications. Loco Luu M.D. DR: Ingrid JOB#: [id number] CC:
[2019-09-20 04:00] VITALS: BP 143/54
[2019-09-20] MEDS: HydrALAZINE 50mg tab ORAL SCH ×3 (05:43→21:01)
[2019-09-20 06:48] LABS: BASOPHILS % (AUTO) 0.9 % (0.0-2.0); EOSINOPHILS % (AUTO) 0.5 % (0.0-3.0); HEMATOCRIT 24.5 % (42.0-52.0); HEMOGLOBIN 8.3 G/DL (14.2-18.0); LYMPHOCYTES % (AUTO) 11.7 % (20.0-45.0); MEAN CORPUSCULAR VOLUME 86 FL (80-99); MONOCYTES % (AUTO) 10.9 % (1.0-10.0); PLATELET COUNT 256 K/UL (150-450); RED BLOOD COUNT 2.85 M/UL (4.70-6.10); WHITE BLOOD COUNT 7.5 K/UL (4.8-10.8)
--- NOTE | 2019-09-20 07:35 | NUR ---
NURSE NOTES: Patient is awake, no acute sign of distress noted. Breathing is unlabored on room air, dressings are intact on LINDA heels and sacrum. IV on right upper arm is patent and running fluids as ordered. Bed is low and locked, side rails up x2, call light is within reach.
[2019-09-20 07:48] LABS: ALANINE AMINOTRANSFERASE 24 U/L (12-78); ALBUMIN 1.9 G/DL (3.4-5.0); ALBUMIN/GLOBULIN RATIO 0.5 (1.0-2.7); ALKALINE PHOSPHATASE 79 U/L (46-116); ANION GAP 8 mmol/L (5-15); ASPARTATE AMINO TRANSFERASE 44 U/L (15-37); BILIRUBIN,TOTAL 0.3 MG/DL (0.2-1.0); BLOOD UREA NITROGEN 36 mg/dL (7-18); CALCIUM 9.7 MG/DL (8.5-10.1); CARBON DIOXIDE 27 MMOL/L (21-32); CHLORIDE 110 MMOL/L (98-107); CREATININE 1.7 MG/DL (0.55-1.30); PHOSPHORUS 2.5 MG/DL (2.5-4.9); POTASSIUM 3.9 MMOL/L (3.5-5.1); SODIUM 145 MMOL/L (136-145)
[2019-09-20 08:00] VITALS: BP 143/58
[2019-09-20] MEDS: Valproic Acid 250mg/5ml Liquid NG SCH ×2 (09:45→21:01)
[2019-09-20] MEDS: Imdur 30mg tab ORAL SCH (09:46)
[2019-09-20] MEDS: Eliquis 2.5mg tablet ORAL SCH ×2 (09:46→21:01)
[2019-09-20] MEDS: Ascorbic Acid 500mg tab ORAL SCH (09:47)
[2019-09-20] MEDS: Tamsulosin 0.4mg cap ORAL SCH ×2 (09:47→18:02)
--- NOTE | 2019-09-20 10:05 | NUR ---
RD ASSESSMENT & RECOMMENDATIONS SEE CARE ACTIVITY FOR COMPLETE ASSESSMENT DAILY ESTIMATED NEEDS: Needs based on Wound, 66.8kg 28-33 kcals/kg 5618-1797 total kcals 1.25-1.5 g protein/kg 84-100 g total protein 25-30 mL/kg 0888-3061 total fluid mLs NUTRITION DIAGNOSIS: Swallowing difficulty r/t dysphagia and ams as evidenced by s/p HEALTH INFORMATION MANAGER eval, poor cognition, pt on liquify puree texture diet w/ HTL, now with poor/variable intake. CURRENT DIET: Liquify puree HTL Regular PO DIET RECOMMENDATIONS: Maintain Regular diet, texture per HEALTH INFORMATION MANAGER ADDITIONAL RECOMMENDATIONS: 1) Ensure Enlive TID w/ meals (350kcal/20g prot per bottle) 2) RECALIBRATE BEDSCALE WT: BIG DISCREPANCY IN WTS initial EMR wt: 160# vs Bed scale wt: 147#-> EMR wt now reads 88.8# 3) CONSIDER APPETITE STIMULANT- prolonged poor PO 4) Rec daily bowel regimen: now w/ bm / 4) Wound care: MVI 1 tab QD + Vit C 250mg QD+ Jacob BID 5) Monitor lytes, hydration status, replete as needed
--- NOTE | 2019-09-20 10:52 | Infectious Diseases Prog Note ---
Assessment/Plan Assessment/Plan antibiotics : none A 1. COVID 19 pneumonia test + on 4.14.20, 4.16.20, 4.22.20, 4.27.20, 5.3.20 test negative 4.29.20 2. Pseudomonas and Raoultella urinary tract infection s/p rx 3. Renal failure. 4. hypertension 5. cardiomyopathy P 1. observe off antibiotics 2. will follow up cultures 3. Continue isolation Subjective ROS Limited/Unobtainable: Yes Allergies: Coded Allergies: No Known Allergies (Unverified , 06/05/19) Objective Vital Signs Last 24 Hour Vital Signs Date Time Temp Pulse Resp B/P (MAP) Pulse Ox O2 Delivery O2 Flow Rate FiO2 09/20/19 09:46 143/58 09/20/19 09:46 82 143/58 09/20/19 08:00 98.7 82 18 143/58 (86) 97 09/20/19 04:00 98.0 75 20 143/54 (83) 97 09/20/19 00:00 98.3 84 20 131/62 (85) 95 09/19/19 21:00 Room Air 09/19/19 20:00 98.8 84 20 116/66 (83) 96 09/19/19 16:00 98.3 75 18 121/53 (75) 96 09/19/19 13:28 117/42 09/19/19 12:00 97.4 80 18 117/42 (67) 96 Height (Feet): 5 Height (Inches): 6.00 Weight (Pounds): 89 Microbiology Date/Time Source Procedure Growth Status 09/18/19 16:15 Nasopharynx Coronavirus COVID-19 PCR ([facility]) - Final Complete Laboratory Tests Test 09/19/19 11:25 09/20/19 04:20 Urine Color Yellow Urine Appearance Slightly cloudy Urine pH 6 (4.5-8.0) Urine Specific [place] 1.015 (1.005-1.035) Urine Protein 3+ (NEGATIVE) H Urine Glucose (UA) Negative (NEGATIVE) Urine Ketones Negative (NEGATIVE) Urine Blood 1+ (NEGATIVE) H Urine Nitrite Negative (NEGATIVE) Urine Bilirubin Negative (NEGATIVE) Urine Urobilinogen Normal MG/DL (0.0-1.0) Urine Leukocyte Esterase Negative (NEGATIVE) Urine RBC 2-4 /HPF (0 - 0) H Urine WBC 0-2 /HPF (0 - 0) Urine Squamous Epithelial Cells Occasional /LPF Urine Amorphous Sediment Many /LPF (NONE) H Urine Bacteria Occasional /HPF (NONE) White Blood Count 7.5 K/UL (4.8-10.8) Red Blood Count 2.85 M/UL (4.70-6.10) L Hemoglobin 8.3 G/DL (14.2-18.0) L Hematocrit 24.5 % (42.0-52.0) L Mean Corpuscular Volume 86 FL (80-99) Mean Corpuscular Hemoglobin 29.2 PG (27.0-31.0) Mean Corpuscular Hemoglobin Concent 33.9 G/DL (32.0-36.0) Red Cell Distribution Width 13.0 % (11.6-14.8) Platelet Count 256 K/UL (150-450) Mean Platelet Volume 4.4 FL (6.5-10.1) L Neutrophils (%) (Auto) 76.0 % (45.0-75.0) H Lymphocytes (%) (Auto) 11.7 % (20.0-45.0) L Monocytes (%) (Auto) 10.9 % (1.0-10.0) H Eosinophils (%) (Auto) 0.5 % (0.0-3.0) Basophils (%) (Auto) 0.9 % (0.0-2.0) Sodium Level 145 MMOL/L (136-145) Potassium Level 3.9 MMOL/L (3.5-5.1) Chloride Level 110 MMOL/L (98-107) H Carbon Dioxide Level 27 MMOL/L (21-32) Anion Gap 8 mmol/L (5-15) Blood Urea Nitrogen 36 mg/dL (7-18) H Creatinine 1.7 MG/DL (0.55-1.30) H Estimat Glomerular Filtration Rate 38.6 mL/min (>60) Glucose Level 73 MG/DL (74-106) L Uric Acid 6.3 MG/DL (2.6-7.2) Calcium Level 9.7 MG/DL (8.5-10.1) Phosphorus Level 2.5 MG/DL (2.5-4.9) Magnesium Level 2.5 MG/DL (1.8-2.4) H Total Bilirubin 0.3 MG/DL (0.2-1.0) Aspartate Amino Transf (AST/SGOT) 44 U/L (15-37) H Alanine Aminotransferase (ALT/SGPT) 24 U/L (12-78) Alkaline Phosphatase 79 U/L (46-116) C-Reactive Protein, Quantitative 15.8 mg/dL (0.00-0.90) H Total Protein 6.0 G/DL (6.4-8.2) L Albumin 1.9 G/DL (3.4-5.0) L Globulin 4.1 g/dL Albumin/Globulin Ratio 0.5 (1.0-2.7) L Current Medications Medications (Trade) Dose Ordered Sig/Kristine Route PRN Reason Start Time Stop Time Status Last Admin Dose Admin Acetaminophen (Tylenol) 650 mg Q4H PRN ORAL Fever 09/09/19 22:30 10/09/19 22:29 09/18/19 21:19 Amlodipine Besylate (Norvasc) 10 mg DAILY ORAL 09/10/19 09:00 09/28/19 08:59 09/20/19 09:46 Apixaban (Eliquis) 2.5 mg BID@0900,2100 ORAL 09/09/19 21:00 12/06/19 08:59 09/20/19 09:46 Ascorbic Acid (Vitamin C) 250 mg DAILY ORAL 09/10/19 09:00 10/10/19 08:59 09/20/19 09:47 Bisacodyl (Dulcolax) 10 mg DAILYPRN PRN RECTAL Constipation 09/18/19 17:00 12/17/19 16:59 Calcitonin [place] (Miacalcin) 1 sprays DAILY NASAL 09/12/19 13:00 12/11/19 12:59 09/19/19 08:34 Famotidine (Pepcid) 20 mg DAILY ORAL 09/10/19 09:00 12/09/19 08:59 09/20/19 09:45 Finasteride (Proscar) 5 mg DAILY ORAL 09/10/19 09:00 11/05/19 15:44 09/20/19 09:47 Hydralazine HCl (Apresoline) 50 mg Q8HR ORAL 09/12/19 22:00 12/11/19 21:59 09/19/19 05:51 Isosorbide Mononitrate (Imdur) 30 mg DAILY ORAL 09/10/19 09:00 10/10/19 08:59 09/20/19 09:46 Multivitamins (Multivitamins) 1 tab DAILY ORAL 09/10/19 09:00 10/10/19 08:59 09/20/19 09:45 Tamsulosin HCl (Flomax) 0.4 mg BID ORAL 09/12/19 12:00 10/06/19 20:59 09/20/19 09:47 Valproic Acid (Depakene) 250 mg EVERY 12 HOURS NG 09/09/19 21:00 10/22/19 20:59 09/20/19 09:45 Gonzalez Stephens MD September 20, 2019 10:52
[2019-09-20 12:00] VITALS: BP 142/59
--- NOTE | 2019-09-20 12:22 | Urology Progress Note ---
Assessment/Plan Status: stable, progressing, not improved Assessment/Plan: 1. Gross hematuria hx, presumably secondary to Doshi trauma, resolved. 2. BPH. 3. Urinary retention. 4. Neurogenic bladder. 5. Pyuria?UTI/colonized. 6. Proteinuria. 7. Renal insufficiency, which appears to be acute on chronic. 8. Rule out urethral stricture. monitor clinically doshi out, voiding/incontinent on proscar and flomax s/p abx restraints PRN cysto at some point monitor PVR and reinsert doshi PRN renal imaging? COVID (+) hx Eliquis resumed monitor for bleeding Subjective Allergies: Coded Allergies: No Known Allergies (Unverified , 06/05/19) Subjective all noted, confused, doshi out, incontinent, condom cath Objective Last 24 Hour Vital Signs Date Time Temp Pulse Resp B/P (MAP) Pulse Ox O2 Delivery O2 Flow Rate FiO2 09/20/19 09:46 143/58 09/20/19 09:46 82 143/58 09/20/19 09:00 Room Air 09/20/19 08:00 98.7 82 18 143/58 (86) 97 09/20/19 04:00 98.0 75 20 143/54 (83) 97 09/20/19 00:00 98.3 84 20 131/62 (85) 95 09/19/19 21:00 Room Air 09/19/19 20:00 98.8 84 20 116/66 (83) 96 09/19/19 16:00 98.3 75 18 121/53 (75) 96 09/19/19 13:28 117/42 Intake and Output 09/19/19 09/20/19 19:00 07:00 Intake Total 1100 ml Output Total 400 ml 600 ml Balance 700 ml -600 ml Intake Oral 200 ml IV Total 900 ml Output Urine Total 400 ml 600 ml # Voids 2 Microbiology Date/Time Source Procedure Growth Status 09/18/19 16:15 Nasopharynx Coronavirus COVID-19 PCR ([facility]) - Final Complete 08/28/19 12:31 Indwelling Cath Urine Culture - Final Pseudomonas Aeruginosa Raoultella [place] Complete 08/06/19 04:45 Rectum VRE Culture - Final NO VANCOMYCIN RESISTANT ENTEROCOCCUS ... Complete Current Medications Medications (Trade) Dose Ordered Sig/Kristine Route PRN Reason Start Time Stop Time Status Last Admin Dose Admin Acetaminophen (Tylenol) 650 mg Q4H PRN ORAL Fever 09/09/19 22:30 10/09/19 22:29 09/18/19 21:19 Amlodipine Besylate (Norvasc) 10 mg DAILY ORAL 09/10/19 09:00 09/28/19 08:59 09/20/19 09:46 Apixaban (Eliquis) 2.5 mg BID@0900,2100 ORAL 09/09/19 21:00 12/06/19 08:59 09/20/19 09:46 Ascorbic Acid (Vitamin C) 250 mg DAILY ORAL 09/10/19 09:00 10/10/19 08:59 09/20/19 09:47 Bisacodyl (Dulcolax) 10 mg DAILYPRN PRN RECTAL Constipation 09/18/19 17:00 12/17/19 16:59 Calcitonin [place] (Miacalcin) 1 sprays DAILY NASAL 09/12/19 13:00 12/11/19 12:59 09/19/19 08:34 Famotidine (Pepcid) 20 mg DAILY ORAL 09/10/19 09:00 12/09/19 08:59 09/20/19 09:45 Finasteride (Proscar) 5 mg DAILY ORAL 09/10/19 09:00 11/05/19 15:44 09/20/19 09:47 Hydralazine HCl (Apresoline) 50 mg Q8HR ORAL 09/12/19 22:00 12/11/19 21:59 09/19/19 05:51 Isosorbide Mononitrate (Imdur) 30 mg DAILY ORAL 09/10/19 09:00 10/10/19 08:59 09/20/19 09:46 Multivitamins (Multivitamins) 1 tab DAILY ORAL 09/10/19 09:00 10/10/19 08:59 09/20/19 09:45 Tamsulosin HCl (Flomax) 0.4 mg BID ORAL 09/12/19 12:00 10/06/19 20:59 09/20/19 09:47 Valproic Acid (Depakene) 250 mg EVERY 12 HOURS NG 09/09/19 21:00 10/22/19 20:59 09/20/19 09:45 Laboratory Tests 09/20/19 04:20: White Blood Count 7.5, Red Blood Count 2.85L, Hemoglobin 8.3L, Hematocrit 24.5L , Mean Corpuscular Volume 86, Mean Corpuscular Hemoglobin 29.2, Mean Corpuscular Hemoglobin Concent 33.9, Red Cell Distribution Width 13.0, Platelet Count 256, Mean Platelet Volume 4.4L, Neutrophils (%) (Auto) 76.0H, Lymphocytes (%) (Auto) 11.7L, Monocytes (%) (Auto) 10.9H, Eosinophils (%) (Auto) 0.5, Basophils (%) (Auto) 0.9, Sodium Level 145, Potassium Level 3.9, Chloride Level 110H, Carbon Dioxide Level 27, Anion Gap 8, Blood Urea Nitrogen 36H, Creatinine 1.7H, Estimat Glomerular Filtration Rate 38.6, Glucose Level 73L, Uric Acid 6.3 , Calcium Level 9.7, Phosphorus Level 2.5, Magnesium Level 2.5H, Total Bilirubin 0.3, Aspartate Amino Transf (AST/SGOT) 44H, Alanine Aminotransferase ( ALT/SGPT) 24, Alkaline Phosphatase 79, C-Reactive Protein, Quantitative 15.8H, Total Protein 6.0L, Albumin 1.9L, Globulin 4.1, Albumin/Globulin Ratio 0.5L Height (Feet): 5 Height (Inches): 6.00 Weight (Pounds): 89 Objective exam stable abdomen soft urine grossly yellow Bamshad,Miki Perry MD September 20, 2019 12:22
[2019-09-20] MEDS: Acetaminophen 650mg/20.3ml ORAL PRN (12:41)
--- NOTE | 2019-09-20 13:22 | NUR ---
*-*INSURANCE*-* UPDATED CLINICALS AND REVIEWS HAVE BEEN FACXED TO: DEE ARAGON:GLENIS P: [phone] F: [phone] REF# [id number]
--- NOTE | 2019-09-20 13:49 | NUR ---
CASE MANAGEMENT:REVIEW 09/20/19 SI: UTI . COVID + . SMALL BILATERAL PLEURAL EFFUSION . ATELECTASIS . PNEUMONIA 100.1 96 20 142/59 97% ON RA H/H 8.3/24.5 BUN/CREAT 36/1.7 BG 73 MG 2.5 IS: PHOSPHA NEUTRAL PO X1 LEXAPRO PO QD DEPAKENE NG BID ELIQUIS PO BID FLOMAX PO BID NORVASC PO QD IMDUR PO QD HYDRALAZINE PO TID MIACALCIN NASAL QD PROSCAR PO QD PROTONIX PO QD : 4E MED SURG STATUS DCP: [facility] PLAN: COVID + 5/3 CONTROL FEVERS OBSERVE OFF IV ABX NEEDING ALTERNATIVE PLACEMENT DC BARRIER: PATIENT BEHAVIOR AND FACILITY NOT ACCEPTING PATIENT BACK UNTIL X2 NEGATIVE COVID-19
--- NOTE | 2019-09-20 13:54 | Nephrology Progress Note ---
Assessment/Plan Problem List: (1) Renal failure (ARF), acute on chronic Assessment: Serum creatinine stabilizing (2) Falls frequently (3) UTI (urinary tract infection) Assessment: and hematuria (4) Anemia (5) Dehydration (6) Encephalopathy due to metabolic factor or toxin (7) Hypercalcemia Assessment Frequent falls Acute renal failure with underlying dehydration Anemia, underlying etiology unclear UTI (urinary tract infection) Toxic metabolic encephalopathy Plan Serum creatinine is 1.7----same as yesterday 1 L of half-normal saline given as IV bolus yesterday 1 dose of Aredia for hypercalcemia was given before We will monitor calcium and phosphorus Previously Trial of 3% saline 250 cc for hyponatremia raised serum sodium from 129- to 134 Serum creatinine overall stable, it is 1.5 today Watch serum calcium, start calcitonin nasal spray for hypercalcemia Increase hydralazine dose for better blood pressure control Patient now COVID-19 positive Start D5W for hypernatremia as needed P.o. intake variable Oral potassium supplement as needed previously: Increase Flomax to twice daily Correct electrolytes as needed Transfusion as needed 2D echocardiogram ejection fraction 60% Kidney ultrasound pending results Monitor renal parameters Avoid nephrotoxics Antibiotics for UTI Continue per consultants Subjective ROS Limited/Unobtainable: No Constitutional: Reports: malaise, weakness Objective Objective Last 24 Hour Vital Signs Date Time Temp Pulse Resp B/P (MAP) Pulse Ox O2 Delivery O2 Flow Rate FiO2 09/20/19 13:32 142/59 09/20/19 12:00 100.1 96 20 142/59 (86) 97 09/20/19 09:46 143/58 09/20/19 09:46 82 143/58 09/20/19 09:00 Room Air 09/20/19 08:00 98.7 82 18 143/58 (86) 97 09/20/19 04:00 98.0 75 20 143/54 (83) 97 09/20/19 00:00 98.3 84 20 131/62 (85) 95 09/19/19 21:00 Room Air 09/19/19 20:00 98.8 84 20 116/66 (83) 96 09/19/19 16:00 98.3 75 18 121/53 (75) 96 Intake and Output 09/19/19 09/20/19 19:00 07:00 Intake Total 1100 ml Output Total 400 ml 600 ml Balance 700 ml -600 ml Intake Oral 200 ml IV Total 900 ml Output Urine Total 400 ml 600 ml # Voids 2 Laboratory Tests 09/20/19 04:20: White Blood Count 7.5, Red Blood Count 2.85L, Hemoglobin 8.3L, Hematocrit 24.5L , Mean Corpuscular Volume 86, Mean Corpuscular Hemoglobin 29.2, Mean Corpuscular Hemoglobin Concent 33.9, Red Cell Distribution Width 13.0, Platelet Count 256, Mean Platelet Volume 4.4L, Neutrophils (%) (Auto) 76.0H, Lymphocytes (%) (Auto) 11.7L, Monocytes (%) (Auto) 10.9H, Eosinophils (%) (Auto) 0.5, Basophils (%) (Auto) 0.9, Sodium Level 145, Potassium Level 3.9, Chloride Level 110H, Carbon Dioxide Level 27, Anion Gap 8, Blood Urea Nitrogen 36H, Creatinine 1.7H, Estimat Glomerular Filtration Rate 38.6, Glucose Level 73L, Uric Acid 6.3 , Calcium Level 9.7, Phosphorus Level 2.5, Magnesium Level 2.5H, Total Bilirubin 0.3, Aspartate Amino Transf (AST/SGOT) 44H, Alanine Aminotransferase ( ALT/SGPT) 24, Alkaline Phosphatase 79, C-Reactive Protein, Quantitative 15.8H, Total Protein 6.0L, Albumin 1.9L, Globulin 4.1, Albumin/Globulin Ratio 0.5L Height (Feet): 5 Height (Inches): 6.00 Weight (Pounds): 89 General Appearance: no apparent distress, lethargic Cardiovascular: tachycardia Respiratory/Chest: decreased breath sounds Abdomen: distended Objective No change Juan Jade MD September 20, 2019 13:54
[2019-09-20] MEDS ORDERED: Phospha 250 Neutral tab ORAL SCH (13:55)
--- NOTE | 2019-09-20 15:57 | General Progress Note ---
Assessment/Plan Problem List: (1) CHF (congestive heart failure) ICD Codes: I50.9 - Heart failure, unspecified SNOMED: 16202205 (2) Renal failure (ARF), acute on chronic ICD Codes: N17.9 - Acute kidney failure, unspecified; N18.9 - Chronic kidney disease, unspecified SNOMED: 947921918 (3) Encephalopathy due to metabolic factor or toxin SNOMED: 962357342 (4) Gross hematuria ICD Codes: R31.0 - Gross hematuria SNOMED: 190049022 (5) Falls frequently ICD Codes: R29.6 - Repeated falls SNOMED: 813056431 (6) Dehydration ICD Codes: E86.0 - Dehydration SNOMED: 39193843 (7) UTI (urinary tract infection) ICD Codes: N39.0 - Urinary tract infection, site not specified SNOMED: 13066647 (8) Anemia ICD Codes: D64.9 - Anemia, unspecified SNOMED: 388146622 Status: stable, progressing, not improved Assessment/Plan: o2 as needed. currently stable on room air. fall precautions. monitor cxr Encourage pos. monitor labs. monitor bmp and lytes Anxiolytics as needed. Continue blood pressure treatment. DVT and stress ulcer prophylaxis. tylenol for fevers ID follow up [facility]charge planning to [facility] facility [facility] for now. will need 2 neg covid tests. Subjective ROS Limited/Unobtainable: No Constitutional: Reports: fever, malaise, weakness HEENT: Reports: no symptoms Cardiovascular: Reports: no symptoms Respiratory: Reports: no symptoms Gastrointestinal/Abdominal: Reports: no symptoms Genitourinary: Reports: no symptoms Neurologic/Psychiatric: Reports: anxiety, emotional problems, pre-existing deficit Endocrine: Reports: no symptoms Hematologic/Lymphatic: Reports: anemia Allergies: Coded Allergies: No Known Allergies (Unverified , 06/05/19) All Systems: reviewed and negative except above Subjective No overnight events. Remains confused and agitated at times. COVID-19 PCR positive on 09/17. Patient is noted to have low-grade temperature of 100.1. No reports of cough dysuria or diarrhea. Chest x-ray shows persistent infiltrates. UA was clear yesterday Objective Last 24 Hour Vital Signs Date Time Temp Pulse Resp B/P (MAP) Pulse Ox O2 Delivery O2 Flow Rate FiO2 09/20/19 13:32 142/59 09/20/19 13:11 100.1 09/20/19 12:00 100.1 96 20 142/59 (86) 97 09/20/19 09:46 143/58 09/20/19 09:46 82 143/58 09/20/19 09:00 Room Air 09/20/19 08:00 98.7 82 18 143/58 (86) 97 09/20/19 04:00 98.0 75 20 143/54 (83) 97 09/20/19 00:00 98.3 84 20 131/62 (85) 95 09/19/19 21:00 Room Air 09/19/19 20:00 98.8 84 20 116/66 (83) 96 09/19/19 16:00 98.3 75 18 121/53 (75) 96 Intake and Output 09/19/19 09/20/19 19:00 07:00 Intake Total 1100 ml Output Total 400 ml 600 ml Balance 700 ml -600 ml Intake Oral 200 ml IV Total 900 ml Output Urine Total 400 ml 600 ml # Voids 2 Laboratory Tests 09/20/19 04:20: White Blood Count 7.5, Red Blood Count 2.85L, Hemoglobin 8.3L, Hematocrit 24.5L , Mean Corpuscular Volume 86, Mean Corpuscular Hemoglobin 29.2, Mean Corpuscular Hemoglobin Concent 33.9, Red Cell Distribution Width 13.0, Platelet Count 256, Mean Platelet Volume 4.4L, Neutrophils (%) (Auto) 76.0H, Lymphocytes (%) (Auto) 11.7L, Monocytes (%) (Auto) 10.9H, Eosinophils (%) (Auto) 0.5, Basophils (%) (Auto) 0.9, Sodium Level 145, Potassium Level 3.9, Chloride Level 110H, Carbon Dioxide Level 27, Anion Gap 8, Blood Urea Nitrogen 36H, Creatinine 1.7H, Estimat Glomerular Filtration Rate 38.6, Glucose Level 73L, Uric Acid 6.3 , Calcium Level 9.7, Phosphorus Level 2.5, Magnesium Level 2.5H, Total Bilirubin 0.3, Aspartate Amino Transf (AST/SGOT) 44H, Alanine Aminotransferase ( ALT/SGPT) 24, Alkaline Phosphatase 79, C-Reactive Protein, Quantitative 15.8H, Total Protein 6.0L, Albumin 1.9L, Globulin 4.1, Albumin/Globulin Ratio 0.5L Height (Feet): 5 Height (Inches): 6.00 Weight (Pounds): 89 Objective General Appearance: WD/WN, alert, confused Neck: supple Cardiovascular: regular rhythm Respiratory/Chest: rhonchi - bilaterally Abdomen: normal bowel sounds, non tender, soft, no organomegaly, no mass Edema: no edema noted Arm (L), no edema noted Arm (R), no edema noted Leg (L), no edema noted Leg (R), no edema noted Pedal (L), no edema noted Pedal (R), no edema noted Generalized Neurologic: office support associate II-XII grossly normal, alert, responsive Iggy Echavarria MD September 20, 2019 15:57
[2019-09-20 16:00] VITALS: BP 152/59
--- NOTE | 2019-09-20 16:16 | Surgery Progress Note ---
Surgery Progress Note Subjective Symptoms: improved, tolerating diet, voiding well, passing flatus Objective Last 24 Hour Vital Signs Date Time Temp Pulse Resp B/P (MAP) Pulse Ox O2 Delivery O2 Flow Rate FiO2 09/20/19 13:32 142/59 09/20/19 13:11 100.1 09/20/19 12:00 100.1 96 20 142/59 (86) 97 09/20/19 09:46 143/58 09/20/19 09:46 82 143/58 09/20/19 09:00 Room Air 09/20/19 08:00 98.7 82 18 143/58 (86) 97 09/20/19 04:00 98.0 75 20 143/54 (83) 97 09/20/19 00:00 98.3 84 20 131/62 (85) 95 09/19/19 21:00 Room Air 09/19/19 20:00 98.8 84 20 116/66 (83) 96 I&O Intake and Output 09/19/19 09/20/19 19:00 07:00 Intake Total 1100 ml Output Total 400 ml 600 ml Balance 700 ml -600 ml Intake Oral 200 ml IV Total 900 ml Output Urine Total 400 ml 600 ml # Voids 2 Dressing: saturated Wound: other Drains: other Cardiovascular: RSR Respiratory: decreased breath sounds Abdomen: soft, non-tender, present bowel sounds Extremities: no tenderness, no cyanosis Laboratory Tests Test 09/20/19 04:20 White Blood Count 7.5 K/UL (4.8-10.8) Red Blood Count 2.85 M/UL (4.70-6.10) L Hemoglobin 8.3 G/DL (14.2-18.0) L Hematocrit 24.5 % (42.0-52.0) L Mean Corpuscular Volume 86 FL (80-99) Mean Corpuscular Hemoglobin 29.2 PG (27.0-31.0) Mean Corpuscular Hemoglobin Concent 33.9 G/DL (32.0-36.0) Red Cell Distribution Width 13.0 % (11.6-14.8) Platelet Count 256 K/UL (150-450) Mean Platelet Volume 4.4 FL (6.5-10.1) L Neutrophils (%) (Auto) 76.0 % (45.0-75.0) H Lymphocytes (%) (Auto) 11.7 % (20.0-45.0) L Monocytes (%) (Auto) 10.9 % (1.0-10.0) H Eosinophils (%) (Auto) 0.5 % (0.0-3.0) Basophils (%) (Auto) 0.9 % (0.0-2.0) Sodium Level 145 MMOL/L (136-145) Potassium Level 3.9 MMOL/L (3.5-5.1) Chloride Level 110 MMOL/L (98-107) H Carbon Dioxide Level 27 MMOL/L (21-32) Anion Gap 8 mmol/L (5-15) Blood Urea Nitrogen 36 mg/dL (7-18) H Creatinine 1.7 MG/DL (0.55-1.30) H Estimat Glomerular Filtration Rate 38.6 mL/min (>60) Glucose Level 73 MG/DL (74-106) L Uric Acid 6.3 MG/DL (2.6-7.2) Calcium Level 9.7 MG/DL (8.5-10.1) Phosphorus Level 2.5 MG/DL (2.5-4.9) Magnesium Level 2.5 MG/DL (1.8-2.4) H Total Bilirubin 0.3 MG/DL (0.2-1.0) Aspartate Amino Transf (AST/SGOT) 44 U/L (15-37) H Alanine Aminotransferase (ALT/SGPT) 24 U/L (12-78) Alkaline Phosphatase 79 U/L (46-116) C-Reactive Protein, Quantitative 15.8 mg/dL (0.00-0.90) H Total Protein 6.0 G/DL (6.4-8.2) L Albumin 1.9 G/DL (3.4-5.0) L Globulin 4.1 g/dL Albumin/Globulin Ratio 0.5 (1.0-2.7) L Plan Problems: (1) Dehydration (2) Anemia (3) UTI (urinary tract infection) (4) Falls frequently (5) Renal failure (ARF), acute on chronic (6) Encephalopathy due to metabolic factor or toxin (7) CHF (congestive heart failure) (8) Gross hematuria (9) Deep tissue injury Assessment & Plan: Pt presented on admission with multiple pressure injuries which were resolving. 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 Base of injury is purple with maroon borders . Surrounding non-blanching erythema to R and Gluteal cheeks. Scrotum is erythematous. R and L heels are boggy but each area blanchable. Tx.Plan: Apply Moisture Barrier Paste to Sacrum. Cover with Optifoam drsg. Change every 3 days and prn. Apply Moisture Barrier Paste to bilat groin and scrotum with each incontinence care. Apply Cavilon Skin Barrier to both heels. Cover each heel with Optifoam drsg. Change every 7 days and prn. Reposition at least every 2hours or as tolerated. Off-load heels with pillow. APM/MEI Mattress overlay. (10) Malnutrition Assessment & Plan: DAILY ESTIMATED NEEDS: Needs based on Wound, 66.8kg 28-33 kcals/kg 9634-8048 total kcals 1.25-1.5 g protein/kg 84-100 g total protein 25-30 mL/kg 8920-9334 total fluid mLs NUTRITION DIAGNOSIS: Swallowing difficulty r/t dysphagia and ams as evidenced by s/p ECONOMICS TEACHER eval, poor cognition, pt on liquify puree texture diet w/ HTL, now with improved intake. CURRENT DIET: Liquify puree HTL Regular PO DIET RECOMMENDATIONS: Maintain Regular diet, texture per ECONOMICS TEACHER ADDITIONAL RECOMMENDATIONS: 1) Ensure Enlive TID w/ meals (350kcal/20g prot per bottle) 2) Maintain calibrated bed scale wts EMR wt: 160# vs Bed scale wt: 147#-> bed now reads 109.8# 3) Consider D5 IVF (vs 1/2 NS running currently)- Na elevated to prevent hypoglycemia given poor/variable PO 4) Wound care: MVI 1 tab QD + Vit C 250mg QD+ Jacob BID 5) Monitor lytes, replete as needed (11) Severe protein-calorie malnutrition Sai Aaron September 20, 2019 16:16
--- NOTE | 2019-09-20 16:56 | Pulmonology Progress Note ---
Assessment/Plan Assessment/Plan IMPRESSION: 1. Pleural effusions, small bilateral. 2. Atelectasis. 3. Pulmonary edema, questionable. 4. Hypertension. 5. Hyperlipidemia. 6. positive COVID 19 7. 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 No new recommendations Kimani Hahn M.D. Subjective ROS Limited/Unobtainable: No Interval Events: None new reported Constitutional: Reports: fever, anorexia, other - T=100.1 HEENT: Repors: no symptoms Respiratory: Reports: no symptoms Cardiovascular: Reports: no symptoms Gastrointestinal/Abdominal: Denies: nausea, vomiting, diarrhea Genitourinary: Reports: no symptoms; Denies: dysuria, hematuria, frequency, nocturia, urgency, other Neurologic: Reports: no symptoms Musculoskeletal: Denies: no symptoms, pain, swelling, stiffness, other Allergies: Coded Allergies: No Known Allergies (Unverified , 06/05/19) All Systems: reviewed and negative except above Objective Last 24 Hour Vital Signs Date Time Temp Pulse Resp B/P (MAP) Pulse Ox O2 Delivery O2 Flow Rate FiO2 09/20/19 13:32 142/59 09/20/19 13:11 100.1 09/20/19 12:00 100.1 96 20 142/59 (86) 97 09/20/19 09:46 143/58 09/20/19 09:46 82 143/58 09/20/19 09:00 Room Air 09/20/19 08:00 98.7 82 18 143/58 (86) 97 09/20/19 04:00 98.0 75 20 143/54 (83) 97 09/20/19 00:00 98.3 84 20 131/62 (85) 95 09/19/19 21:00 Room Air 09/19/19 20:00 98.8 84 20 116/66 (83) 96 Intake and Output 09/19/19 09/20/19 19:00 07:00 Intake Total 1100 ml Output Total 400 ml 600 ml Balance 700 ml -600 ml Intake Oral 200 ml IV Total 900 ml Output Urine Total 400 ml 600 ml # Voids 2 General Appearance: cachetic HEENT: mucous membranes moist Respiratory/Chest: chest wall non-tender, lungs clear Cardiovascular: normal peripheral pulses Abdomen: soft, non tender Extremities: no edema Neurologic/Psychiatric: disoriented Microbiology Date/Time Source Procedure Growth Status 09/18/19 16:15 Nasopharynx Coronavirus COVID-19 PCR ([facility]) - Final Complete Laboratory Tests 09/20/19 04:20: White Blood Count 7.5, Red Blood Count 2.85L, Hemoglobin 8.3L, Hematocrit 24.5L , Mean Corpuscular Volume 86, Mean Corpuscular Hemoglobin 29.2, Mean Corpuscular Hemoglobin Concent 33.9, Red Cell Distribution Width 13.0, Platelet Count 256, Mean Platelet Volume 4.4L, Neutrophils (%) (Auto) 76.0H, Lymphocytes (%) (Auto) 11.7L, Monocytes (%) (Auto) 10.9H, Eosinophils (%) (Auto) 0.5, Basophils (%) (Auto) 0.9, Sodium Level 145, Potassium Level 3.9, Chloride Level 110H, Carbon Dioxide Level 27, Anion Gap 8, Blood Urea Nitrogen 36H, Creatinine 1.7H, Estimat Glomerular Filtration Rate 38.6, Glucose Level 73L, Uric Acid 6.3 , Calcium Level 9.7, Phosphorus Level 2.5, Magnesium Level 2.5H, Total Bilirubin 0.3, Aspartate Amino Transf (AST/SGOT) 44H, Alanine Aminotransferase ( ALT/SGPT) 24, Alkaline Phosphatase 79, C-Reactive Protein, Quantitative 15.8H, Total Protein 6.0L, Albumin 1.9L, Globulin 4.1, Albumin/Globulin Ratio 0.5L Current Medications Medications (Trade) Dose Ordered Sig/Kristine Route PRN Reason Start Time Stop Time Status Last Admin Dose Admin Acetaminophen (Tylenol) 650 mg Q4H PRN ORAL Fever 09/09/19 22:30 10/09/19 22:29 09/20/19 12:41 Amlodipine Besylate (Norvasc) 10 mg DAILY ORAL 09/10/19 09:00 09/28/19 08:59 09/20/19 09:46 Apixaban (Eliquis) 2.5 mg BID@0900,2100 ORAL 09/09/19 21:00 12/06/19 08:59 09/20/19 09:46 Ascorbic Acid (Vitamin C) 250 mg DAILY ORAL 09/10/19 09:00 10/10/19 08:59 09/20/19 09:47 Bisacodyl (Dulcolax) 10 mg DAILYPRN PRN RECTAL Constipation 09/18/19 17:00 12/17/19 16:59 Calcitonin [place] (Miacalcin) 1 sprays DAILY NASAL 09/12/19 13:00 12/11/19 12:59 09/20/19 09:00 Famotidine (Pepcid) 20 mg DAILY ORAL 09/10/19 09:00 12/09/19 08:59 09/20/19 09:45 Finasteride (Proscar) 5 mg DAILY ORAL 09/10/19 09:00 11/05/19 15:44 09/20/19 09:47 Hydralazine HCl (Apresoline) 50 mg Q8HR ORAL 09/12/19 22:00 12/11/19 21:59 09/20/19 13:32 Isosorbide Mononitrate (Imdur) 30 mg DAILY ORAL 09/10/19 09:00 10/10/19 08:59 09/20/19 09:46 Multivitamins (Multivitamins) 1 tab DAILY ORAL 09/10/19 09:00 10/10/19 08:59 09/20/19 09:45 Tamsulosin HCl (Flomax) 0.4 mg BID ORAL 09/12/19 12:00 10/06/19 20:59 09/20/19 09:47 Valproic Acid (Depakene) 250 mg EVERY 12 HOURS NG 09/09/19 21:00 10/22/19 20:59 09/20/19 09:45 Kimani Hahn MD September 20, 2019 16:56
--- NOTE | 2019-09-20 19:15 | NUR ---
HAND-OFF: Report given to Rigoberto GOULD.
--- NOTE | 2019-09-20 19:30 | NUR ---
NURSE NOTES: Patient in bed, confused, on room air. No SOB noted. IV access of the right upper arm. Safety measures applied. Will continue plan of care.
[2019-09-20 20:00] VITALS: BP 98/59
--- NOTE | 2019-09-20 22:29 | Progress Note ---
DATE: 09/20/2019 SUBJECTIVE: The patient remains with COVID-19 positive PCR swabs. He remains with low-grade temperatures. Chest x-ray reveals persistent although slightly improved infiltrates bilaterally. PHYSICAL EXAMINATION: VITAL SIGNS: Blood pressure 142/59, heart rate 96, respiratory rate 20, temperature 100.1. LUNGS: Coarse breath sounds, rhonchi. CARDIAC: Irregularly irregular rhythm. Normal S1, S2. A 1/6 systolic murmur at apex. ABDOMEN: Soft. EXTREMITIES: There is no edema. LABORATORY AND DIAGNOSTIC DATA: White count 7.5, hemoglobin 8.3. Potassium 3.9, BUN 36, creatinine 1.7. Magnesium 2.5. Albumin 1.9. CRP remains elevated at 15.8. IMPRESSION: 1. COVID-19 pneumonia persistent. 2. Hypoxia, resolved 3. Recurrent fevers. 4. Severe protein-calorie malnutrition. 5. Acute and chronic diastolic congestive heart failure. 6. Hypertensive heart disease. 7. Valvular cardiomyopathy. 8. Mitral regurgitation. 9. Pulmonary hypertension. 10. Anemia of chronic disease. 11. Chronic kidney disease. RECOMMENDATIONS: 1. Isolation. 2. Respiratory hygiene. 3. No additional hydroxychloroquine. PLAN: Monitor volume status and cardiorenal function, adjust anti-failure regimen including diuresis based on these findings on a daily basis. Gamaliel Salas M.D. DR: MAXIMINO JOB#: [id number] CC:
--- NOTE | 2019-09-20 23:06 | Psych Consult Progress Note ---
Psychiatry Progress Note Psychiatry Progress Note Medications Current Medications Medications (Trade) Dose Ordered Sig/Kristine Route PRN Reason Start Time Stop Time Status Last Admin Dose Admin Acetaminophen (Tylenol) 650 mg Q4H PRN ORAL Fever 09/09/19 22:30 10/09/19 22:29 09/20/19 12:41 Amlodipine Besylate (Norvasc) 10 mg DAILY ORAL 09/10/19 09:00 09/28/19 08:59 09/20/19 09:46 Apixaban (Eliquis) 2.5 mg BID@0900,2100 ORAL 09/09/19 21:00 12/06/19 08:59 09/20/19 21:01 Ascorbic Acid (Vitamin C) 250 mg DAILY ORAL 09/10/19 09:00 10/10/19 08:59 09/20/19 09:47 Bisacodyl (Dulcolax) 10 mg DAILYPRN PRN RECTAL Constipation 09/18/19 17:00 12/17/19 16:59 Calcitonin [place] (Miacalcin) 1 sprays DAILY NASAL 09/12/19 13:00 12/11/19 12:59 09/20/19 09:00 Famotidine (Pepcid) 20 mg DAILY ORAL 09/10/19 09:00 12/09/19 08:59 09/20/19 09:45 Finasteride (Proscar) 5 mg DAILY ORAL 09/10/19 09:00 11/05/19 15:44 09/20/19 09:47 Hydralazine HCl (Apresoline) 50 mg Q8HR ORAL 09/12/19 22:00 12/11/19 21:59 09/20/19 13:32 Isosorbide Mononitrate (Imdur) 60 mg DAILY ORAL 09/21/19 09:00 10/21/19 08:59 Multivitamins (Multivitamins) 1 tab DAILY ORAL 09/10/19 09:00 10/10/19 08:59 09/20/19 09:45 Tamsulosin HCl (Flomax) 0.4 mg BID ORAL 09/12/19 12:00 10/06/19 20:59 09/20/19 18:02 Valproic Acid (Depakene) 250 mg EVERY 12 HOURS NG 09/09/19 21:00 10/22/19 20:59 09/20/19 21:01 Neurological/Psychiatric: Reports: anxiety, depressed Allergies: Coded Allergies: No Known Allergies (Unverified , 06/05/19) Objective Data Height (Feet): 5 Height (Inches): 6.00 Weight (Pounds): 89 General Appearance: WD/WN, no apparent distress, alert, confused Additional Comments: disoriented. Mood is neutral. Affect is flat. Thought process is concrete. Thought content, no suicidal or homicidal ideation. Cognition is impaired. Insight and judgment, impaired. Assessment/Plan Problem List: (1) Encephalopathy due to metabolic factor or toxin Assessment & Plan: 2. Psychotic disorder. SNOMED: 871720224 Status: stable, progressing, not improved Assessment/Plan: Dementia with behavior disturbance. PLAN: DC the citalopram, Depakote 250 mg b.i.d., continue trazodone. Continue to follow and readjust the medications. Loco Luu MD September 20, 2019 23:06
[2019-09-20 23:30] LABS: APPEARANCE,URINE SLIGHTLY CLOUDY; BILIRUBIN, URINE NEGATIVE (NEGATIVE); GLUCOSE, URINE (UA) NEGATIVE (NEGATIVE); KETONES,URINE 2+ (NEGATIVE); LEUKOCYTE ESTERASE ,URINE 1+ (NEGATIVE); NITRITE,URINE NEGATIVE (NEGATIVE); PH,URINE 7 (4.5-8.0); PROTEIN,URINE 3+ (NEGATIVE); UROBILINOGEN,URINE 1 MG/DL (0.0-1.0)
[2019-09-20 23:54] LABS: COLOR,URINE YELLOW
[2019-09-21] VITALS: BP 144/60
[2019-09-21 04:00] VITALS: BP 141/62
[2019-09-21] MEDS: HydrALAZINE 50mg tab ORAL SCH ×3 (05:44→21:27)
--- NOTE | 2019-09-21 06:56 | NUR ---
NURSE NOTES: Dr. Echavarria made aware of patient desaturating to 87% on room air. Put pt on nasal cannula @ 3LPM, saturating up to 94%.
--- NOTE | 2019-09-21 07:22 | NUR ---
HAND-OFF: Report given to LUIS FERNANDO Hall.
[2019-09-21 08:00] VITALS: BP 140/56
--- NOTE | 2019-09-21 08:00 | NUR ---
NURSE NOTES: Patient awake and alert to name,respirations unlabored.patient on 2L N/C. Condom catheter is in place and draining yellow urine.Optiform dressings on heels and sacral area.IV saline lock to the upper right arm intact.Bed alarm on,call light within reach.
[2019-09-21] MEDS: Eliquis 2.5mg tablet ORAL SCH ×2 (10:04→20:35)
[2019-09-21] MEDS: Imdur 30mg tab ORAL SCH (10:05)
[2019-09-21] MEDS: Tamsulosin 0.4mg cap ORAL SCH ×2 (10:06→18:59)
[2019-09-21] MEDS: Ascorbic Acid 500mg tab ORAL SCH (10:07)
[2019-09-21] MEDS: Valproic Acid 250mg/5ml Liquid NG SCH ×2 (10:17→20:35)
--- NOTE | 2019-09-21 10:53 | Infectious Diseases Prog Note ---
Assessment/Plan Assessment/Plan antibiotics : none A 1. COVID 19 pneumonia test + on 4.14.20, 4.16.20, 4.22.20, 4.27.20, 5.3.20 test negative 4.29.20 2. Pseudomonas and Raoultella urinary tract infection s/p rx 3. Renal failure. 4. hypertension 5. cardiomyopathy P 1. observe off antibiotics 2. will follow up cultures 3. Continue isolation Subjective ROS Limited/Unobtainable: Yes Allergies: Coded Allergies: No Known Allergies (Unverified , 06/05/19) Objective Vital Signs Last 24 Hour Vital Signs Date Time Temp Pulse Resp B/P (MAP) Pulse Ox O2 Delivery O2 Flow Rate FiO2 09/21/19 10:06 87 141/64 09/21/19 10:05 141/64 09/21/19 08:00 98.9 84 21 140/56 (84) 93 09/21/19 05:44 141/62 09/21/19 04:00 98.9 95 20 141/62 (88) 93 09/21/19 00:00 99.5 97 20 144/60 (88) 94 09/20/19 21:00 Room Air 09/20/19 20:00 98.6 102 22 98/59 (72) 93 09/20/19 16:00 100.6 100 20 152/59 (90) 95 09/20/19 13:32 142/59 09/20/19 13:11 100.1 09/20/19 12:00 100.1 96 20 142/59 (86) 97 Height (Feet): 5 Height (Inches): 6.00 Weight (Pounds): 91 Microbiology Date/Time Source Procedure Growth Status 09/18/19 16:15 Nasopharynx Coronavirus COVID-19 PCR ([facility]) - Final Complete Laboratory Tests Test 09/20/19 18:31 Urine Color Yellow Urine Appearance Slightly cloudy Urine pH 7 (4.5-8.0) Urine Specific [place] 1.010 (1.005-1.035) Urine Protein 3+ (NEGATIVE) H Urine Glucose (UA) Negative (NEGATIVE) Urine Ketones 2+ (NEGATIVE) H Urine Blood Negative (NEGATIVE) Urine Nitrite Negative (NEGATIVE) Urine Bilirubin Negative (NEGATIVE) Urine Urobilinogen 1 MG/DL (0.0-1.0) H Urine Leukocyte Esterase 1+ (NEGATIVE) H Urine RBC 0 /HPF (0 - 0) Urine WBC 0-2 /HPF (0 - 0) Urine Squamous Epithelial Cells None /LPF (NONE/OCC) Urine Bacteria Many /HPF (NONE) H Current Medications Medications (Trade) Dose Ordered Sig/Kristine Route PRN Reason Start Time Stop Time Status Last Admin Dose Admin Acetaminophen (Tylenol) 650 mg Q4H PRN ORAL Fever 09/09/19 22:30 10/09/19 22:29 09/20/19 12:41 Amlodipine Besylate (Norvasc) 10 mg DAILY ORAL 09/10/19 09:00 09/28/19 08:59 09/21/19 10:06 Apixaban (Eliquis) 2.5 mg BID@0900,2100 ORAL 09/09/19 21:00 12/06/19 08:59 09/21/19 10:04 Ascorbic Acid (Vitamin C) 250 mg DAILY ORAL 09/10/19 09:00 10/10/19 08:59 09/21/19 10:07 Bisacodyl (Dulcolax) 10 mg DAILYPRN PRN RECTAL Constipation 09/18/19 17:00 12/17/19 16:59 Calcitonin [place] (Miacalcin) 1 sprays DAILY NASAL 09/12/19 13:00 12/11/19 12:59 09/20/19 09:00 Famotidine (Pepcid) 20 mg DAILY ORAL 09/10/19 09:00 12/09/19 08:59 09/21/19 10:04 Finasteride (Proscar) 5 mg DAILY ORAL 09/10/19 09:00 11/05/19 15:44 09/21/19 10:05 Hydralazine HCl (Apresoline) 50 mg Q8HR ORAL 09/12/19 22:00 12/11/19 21:59 09/21/19 05:44 Isosorbide Mononitrate (Imdur) 60 mg DAILY ORAL 09/21/19 09:00 10/21/19 08:59 09/21/19 10:05 Multivitamins (Multivitamins) 1 tab DAILY ORAL 09/10/19 09:00 10/10/19 08:59 09/21/19 10:05 Tamsulosin HCl (Flomax) 0.4 mg BID ORAL 09/12/19 12:00 10/06/19 20:59 09/21/19 10:06 Valproic Acid (Depakene) 250 mg EVERY 12 HOURS NG 09/09/19 21:00 10/22/19 20:59 09/21/19 10:17 Gonzalez Stephens MD September 21, 2019 10:53
--- NOTE | 2019-09-21 11:08 | Pulmonology Progress Note ---
Assessment/Plan Assessment/Plan IMPRESSION: 1. Pleural effusions, small bilateral. 2. Atelectasis. 3. Pulmonary edema, questionable. 4. Hypertension. 5. Hyperlipidemia. 6. positive COVID 19 7. 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 No new recommendations Kimani Hahn M.D. Subjective ROS Limited/Unobtainable: Yes Interval Events: None new reported Constitutional: Reports: fever, anorexia, other - T=100.1 HEENT: Repors: no symptoms Respiratory: Reports: no symptoms Cardiovascular: Reports: no symptoms Gastrointestinal/Abdominal: Denies: nausea, vomiting, diarrhea Genitourinary: Reports: no symptoms; Denies: dysuria, hematuria, frequency, nocturia, urgency, other Neurologic: Reports: no symptoms Musculoskeletal: Denies: no symptoms, pain, swelling, stiffness, other Allergies: Coded Allergies: No Known Allergies (Unverified , 06/05/19) All Systems: reviewed and negative except above Objective Last 24 Hour Vital Signs Date Time Temp Pulse Resp B/P (MAP) Pulse Ox O2 Delivery O2 Flow Rate FiO2 09/21/19 10:06 87 141/64 09/21/19 10:05 141/64 09/21/19 08:00 98.9 84 21 140/56 (84) 93 09/21/19 05:44 141/62 09/21/19 04:00 98.9 95 20 141/62 (88) 93 09/21/19 00:00 99.5 97 20 144/60 (88) 94 09/20/19 21:00 Room Air 09/20/19 20:00 98.6 102 22 98/59 (72) 93 09/20/19 16:00 100.6 100 20 152/59 (90) 95 09/20/19 13:32 142/59 09/20/19 13:11 100.1 09/20/19 12:00 100.1 96 20 142/59 (86) 97 Intake and Output 09/20/19 09/21/19 19:00 07:00 Intake Total 300 ml Output Total 280 ml 400 ml Balance 20 ml -400 ml Other 300 ml Output Urine Total 280 ml 400 ml # Bowel Movements 1 General Appearance: cachetic HEENT: mucous membranes moist Respiratory/Chest: chest wall non-tender, lungs clear Cardiovascular: normal peripheral pulses Abdomen: soft, non tender Extremities: no edema Neurologic/Psychiatric: disoriented Microbiology Date/Time Source Procedure Growth Status 09/18/19 16:15 Nasopharynx Coronavirus COVID-19 PCR ([facility]) - Final Complete Laboratory Tests 09/20/19 18:31: Urine Color Yellow, Urine Appearance Slightly cloudy, Urine pH 7, Urine Specific [place] 1.010, Urine Protein 3+H, Urine Glucose (UA) Negative, Urine Ketones 2+H, Urine Blood Negative, Urine Nitrite Negative, Urine Bilirubin Negative, Urine Urobilinogen 1H, Urine Leukocyte Esterase 1+H, Urine RBC 0, Urine WBC 0-2, Urine Squamous Epithelial Cells None, Urine Bacteria ManyH Current Medications Medications (Trade) Dose Ordered Sig/Kristine Route PRN Reason Start Time Stop Time Status Last Admin Dose Admin Acetaminophen (Tylenol) 650 mg Q4H PRN ORAL Fever 09/09/19 22:30 10/09/19 22:29 09/20/19 12:41 Amlodipine Besylate (Norvasc) 10 mg DAILY ORAL 09/10/19 09:00 09/28/19 08:59 09/21/19 10:06 Apixaban (Eliquis) 2.5 mg BID@0900,2100 ORAL 09/09/19 21:00 12/06/19 08:59 09/21/19 10:04 Ascorbic Acid (Vitamin C) 250 mg DAILY ORAL 09/10/19 09:00 10/10/19 08:59 09/21/19 10:07 Bisacodyl (Dulcolax) 10 mg DAILYPRN PRN RECTAL Constipation 09/18/19 17:00 12/17/19 16:59 Calcitonin [place] (Miacalcin) 1 sprays DAILY NASAL 09/12/19 13:00 12/11/19 12:59 09/20/19 09:00 Famotidine (Pepcid) 20 mg DAILY ORAL 09/10/19 09:00 12/09/19 08:59 09/21/19 10:04 Finasteride (Proscar) 5 mg DAILY ORAL 09/10/19 09:00 11/05/19 15:44 5/6/20 10:05 Hydralazine HCl (Apresoline) 50 mg Q8HR ORAL 09/12/19 22:00 12/11/19 21:59 09/21/19 05:44 Isosorbide Mononitrate (Imdur) 60 mg DAILY ORAL 09/21/19 09:00 10/21/19 08:59 09/21/19 10:05 Multivitamins (Multivitamins) 1 tab DAILY ORAL 09/10/19 09:00 10/10/19 08:59 09/21/19 10:05 Tamsulosin HCl (Flomax) 0.4 mg BID ORAL 09/12/19 12:00 10/06/19 20:59 09/21/19 10:06 Valproic Acid (Depakene) 250 mg EVERY 12 HOURS NG 09/09/19 21:00 10/22/19 20:59 09/21/19 10:17 Kimani Hahn MD September 21, 2019 11:08
--- NOTE | 2019-09-21 11:46 | NUR ---
CASE MANAGEMENT:REVIEW 09/21/19 SI: UTI . COVID ++++-+ . SMALL BILATERAL PLEURAL EFFUSION . ATELECTASIS . PNEUMONIA 99.5 97 20 144/60 94% ON RA IS: IMDUR PO QD LEXAPRO PO QD DEPAKENE NG BID ELIQUIS PO BID FLOMAX PO BID NORVASC PO QD IMDUR PO QD HYDRALAZINE PO TID MIACALCIN NASAL QD PROSCAR PO QD PROTONIX PO QD \: 4E MED SURG STATUS DCP: [facility] PLAN: CONTROL FEVERS OBSERVE OFF IV ABX MAY NEED ALTERNATIVE PLACEMENT DC BARRIER: PATIENT BEHAVIOR AND FACILITY NOT ACCEPTING PATIENT BACK UNTIL X2 NEGATIVE COVID-19
[2019-09-21 12:00] VITALS: BP 135/62
--- NOTE | 2019-09-21 12:17 | General Progress Note ---
Assessment/Plan Problem List: (1) CHF (congestive heart failure) ICD Codes: I50.9 - Heart failure, unspecified SNOMED: 64966849 (2) Renal failure (ARF), acute on chronic ICD Codes: N17.9 - Acute kidney failure, unspecified; N18.9 - Chronic kidney disease, unspecified SNOMED: 410315112 (3) Encephalopathy due to metabolic factor or toxin SNOMED: 203463873 (4) Gross hematuria ICD Codes: R31.0 - Gross hematuria SNOMED: 579903594 (5) Falls frequently ICD Codes: R29.6 - Repeated falls SNOMED: 379417125 (6) Dehydration ICD Codes: E86.0 - Dehydration SNOMED: 10450729 (7) UTI (urinary tract infection) ICD Codes: N39.0 - Urinary tract infection, site not specified SNOMED: 03975339 (8) Anemia ICD Codes: D64.9 - Anemia, unspecified SNOMED: 095011508 Status: stable, progressing, not improved Assessment/Plan: o2 as needed. titrate to keep sats >92 fall precautions. repeat cxr Encourage pos. monitor labs. monitor bmp and lytes Anxiolytics as needed. Continue blood pressure treatment. DVT and stress ulcer prophylaxis. tylenol for fevers ID follow up Discharge planning to longterm facility on hold for now. will need 2 neg covid tests. Subjective ROS Limited/Unobtainable: No Constitutional: Reports: malaise, weakness HEENT: Reports: no symptoms Cardiovascular: Reports: no symptoms Respiratory: Reports: cough, orthopnea Gastrointestinal/Abdominal: Reports: no symptoms Genitourinary: Reports: no symptoms Neurologic/Psychiatric: Reports: anxiety, emotional problems Endocrine: Reports: no symptoms Hematologic/Lymphatic: Reports: anemia Allergies: Coded Allergies: No Known Allergies (Unverified , 06/05/19) All Systems: reviewed and negative except above Subjective d/w night rn. more sob. desaturating on room air last night. placed on 3L nasal cannula. no fevers. remains anxious and confused. Objective Last 24 Hour Vital Signs Date Time Temp Pulse Resp B/P (MAP) Pulse Ox O2 Delivery O2 Flow Rate FiO2 09/21/19 10:06 87 141/64 09/21/19 10:05 141/64 09/21/19 09:00 Room Air 09/21/19 08:00 98.9 84 21 140/56 (84) 93 09/21/19 05:44 141/62 09/21/19 04:00 98.9 95 20 141/62 (88) 93 09/21/19 00:00 99.5 97 20 144/60 (88) 94 09/20/19 21:00 Room Air 09/20/19 20:00 98.6 102 22 98/59 (72) 93 09/20/19 16:00 100.6 100 20 152/59 (90) 95 09/20/19 13:32 142/59 09/20/19 13:11 100.1 Intake and Output 09/20/19 09/21/19 19:00 07:00 Intake Total 300 ml Output Total 280 ml 400 ml Balance 20 ml -400 ml Other 300 ml Output Urine Total 280 ml 400 ml # Bowel Movements 1 Laboratory Tests 09/20/19 18:31: Urine Color Yellow, Urine Appearance Slightly cloudy, Urine pH 7, Urine Specific [place] 1.010, Urine Protein 3+H, Urine Glucose (UA) Negative, Urine Ketones 2+H, Urine Blood Negative, Urine Nitrite Negative, Urine Bilirubin Negative, Urine Urobilinogen 1H, Urine Leukocyte Esterase 1+H, Urine RBC 0, Urine WBC 0-2, Urine Squamous Epithelial Cells None, Urine Bacteria ManyH Height (Feet): 5 Height (Inches): 6.00 Weight (Pounds): 91 Objective General Appearance: WD/WN, alert, confused Neck: supple Cardiovascular: regular rhythm Respiratory/Chest: rhonchi - bilaterally Abdomen: normal bowel sounds, non tender, soft, no organomegaly, no mass Edema: no edema noted Arm (L), no edema noted Arm (R), no edema noted Leg (L), no edema noted Leg (R), no edema noted Pedal (L), no edema noted Pedal (R), no edema noted Generalized Neurologic: doctor assistant II-XII grossly normal, alert, responsive Iggy Echavarria MD September 21, 2019 12:17
--- NOTE | 2019-09-21 13:02 | Nephrology Progress Note ---
Assessment/Plan Problem List: (1) Renal failure (ARF), acute on chronic Assessment: Serum creatinine stabilizing (2) Falls frequently (3) UTI (urinary tract infection) Assessment: and hematuria (4) Anemia (5) Dehydration (6) Encephalopathy due to metabolic factor or toxin (7) Hypercalcemia Assessment Frequent falls Acute renal failure with underlying dehydration Anemia, underlying etiology unclear UTI (urinary tract infection) Toxic metabolic encephalopathy Plan No chemistry panel for today September 20 serum creatinine is 1.7----same as yesterday Fluid challenge to be for and repeat as needed 1 dose of Aredia for hypercalcemia was given before We will monitor calcium and phosphorus Previously Trial of 3% saline 250 cc for hyponatremia raised serum sodium from 129- to 134 Serum creatinine overall stable, it is 1.5 today Watch serum calcium, start calcitonin nasal spray for hypercalcemia Increase hydralazine dose for better blood pressure control Patient now COVID-19 positive Start D5W for hypernatremia as needed P.o. intake variable Oral potassium supplement as needed previously: Increase Flomax to twice daily Correct electrolytes as needed Transfusion as needed 2D echocardiogram ejection fraction 60% Kidney ultrasound pending results Monitor renal parameters Avoid nephrotoxics Antibiotics for UTI Continue per consultants Subjective ROS Limited/Unobtainable: No Constitutional: Reports: malaise, weakness Objective Objective Last 24 Hour Vital Signs Date Time Temp Pulse Resp B/P (MAP) Pulse Ox O2 Delivery O2 Flow Rate FiO2 09/21/19 12:00 97.5 94 21 135/62 (86) 93 09/21/19 10:06 87 141/64 09/21/19 10:05 141/64 09/21/19 09:00 Room Air 09/21/19 08:00 98.9 84 21 140/56 (84) 93 09/21/19 05:44 141/62 09/21/19 04:00 98.9 95 20 141/62 (88) 93 09/21/19 00:00 99.5 97 20 144/60 (88) 94 09/20/19 21:00 Room Air 09/20/19 20:00 98.6 102 22 98/59 (72) 93 09/20/19 16:00 100.6 100 20 152/59 (90) 95 09/20/19 13:32 142/59 09/20/19 13:11 100.1 Intake and Output 09/20/19 09/21/19 19:00 07:00 Intake Total 300 ml Output Total 280 ml 400 ml Balance 20 ml -400 ml Other 300 ml Output Urine Total 280 ml 400 ml # Bowel Movements 1 Laboratory Tests 09/20/19 18:31: Urine Color Yellow, Urine Appearance Slightly cloudy, Urine pH 7, Urine Specific [place] 1.010, Urine Protein 3+H, Urine Glucose (UA) Negative, Urine Ketones 2+H, Urine Blood Negative, Urine Nitrite Negative, Urine Bilirubin Negative, Urine Urobilinogen 1H, Urine Leukocyte Esterase 1+H, Urine RBC 0, Urine WBC 0-2, Urine Squamous Epithelial Cells None, Urine Bacteria ManyH Height (Feet): 5 Height (Inches): 6.00 Weight (Pounds): 91 General Appearance: no apparent distress, lethargic Cardiovascular: tachycardia Respiratory/Chest: decreased breath sounds Abdomen: soft Objective No change Juan Jade MD September 21, 2019 13:02
--- NOTE | 2019-09-21 14:06 | Diagnostic Imaging Report ---
Indication: Shortness of breath Technique: One view of the chest Comparison: 09/19/2019 Findings: There is increasing retrocardiac infiltrate and possibly increasing hazy infiltrate in the left midlung periphery. Infrahilar reticular opacities appear similar. The heart size is normal. Impression: Worsening consolidation in the left retrocardiac region, likely pneumonia, since prior exam of 2 days earlier
--- NOTE | 2019-09-21 14:36 | NUR ---
CHARGE NURSE NOTE: was notified regarding abnormal chest X-ray result, (worsening, pos.pneumonia). Pt is not on antibiotics.
[2019-09-21] MEDS ORDERED: Piperacillin/Tazobactam 2.25 GM in D5W 55 ML IVPB SCH (14:45)
--- NOTE | 2019-09-21 15:08 | Surgery Progress Note ---
Surgery Progress Note Subjective Additional Comments no acute events comfortable labs reviewed imaging noted Objective Last 24 Hour Vital Signs Date Time Temp Pulse Resp B/P (MAP) Pulse Ox O2 Delivery O2 Flow Rate FiO2 09/21/19 13:50 140/60 09/21/19 12:00 97.5 94 21 135/62 (86) 93 09/21/19 10:06 87 141/64 09/21/19 10:05 141/64 09/21/19 09:00 Room Air 09/21/19 08:00 98.9 84 21 140/56 (84) 93 09/21/19 05:44 141/62 09/21/19 04:00 98.9 95 20 141/62 (88) 93 09/21/19 00:00 99.5 97 20 144/60 (88) 94 09/20/19 21:00 Room Air 09/20/19 20:00 98.6 102 22 98/59 (72) 93 09/20/19 16:00 100.6 100 20 152/59 (90) 95 I&O Intake and Output 09/20/19 09/21/19 19:00 07:00 Intake Total 300 ml Output Total 280 ml 400 ml Balance 20 ml -400 ml Other 300 ml Output Urine Total 280 ml 400 ml # Bowel Movements 1 Dressing: other Wound: other Drains: other Cardiovascular: RSR Respiratory: decreased breath sounds Abdomen: soft, present bowel sounds Extremities: no cyanosis Laboratory Tests Test 09/20/19 18:31 Urine Color Yellow Urine Appearance Slightly cloudy Urine pH 7 (4.5-8.0) Urine Specific [place] 1.010 (1.005-1.035) Urine Protein 3+ (NEGATIVE) H Urine Glucose (UA) Negative (NEGATIVE) Urine Ketones 2+ (NEGATIVE) H Urine Blood Negative (NEGATIVE) Urine Nitrite Negative (NEGATIVE) Urine Bilirubin Negative (NEGATIVE) Urine Urobilinogen 1 MG/DL (0.0-1.0) H Urine Leukocyte Esterase 1+ (NEGATIVE) H Urine RBC 0 /HPF (0 - 0) Urine WBC 0-2 /HPF (0 - 0) Urine Squamous Epithelial Cells None /LPF (NONE/OCC) Urine Bacteria Many /HPF (NONE) H Plan Problems: (1) Dehydration (2) Anemia (3) UTI (urinary tract infection) (4) Falls frequently (5) Renal failure (ARF), acute on chronic (6) Encephalopathy due to metabolic factor or toxin (7) CHF (congestive heart failure) (8) Gross hematuria (9) Deep tissue injury Assessment & Plan: Pt presented on admission with multiple pressure injuries which were resolving. 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 Base of injury is purple with maroon borders . Surrounding non-blanching erythema to R and Gluteal cheeks. Scrotum is erythematous. R and L heels are boggy but each area blanchable. Tx.Plan: Apply Moisture Barrier Paste to Sacrum. Cover with Optifoam drsg. Change every 3 days and prn. Apply Moisture Barrier Paste to bilat groin and scrotum with each incontinence care. Apply Cavilon Skin Barrier to both heels. Cover each heel with Optifoam drsg. Change every 7 days and prn. Reposition at least every 2hours or as tolerated. Off-load heels with pillow. APM/MEI Mattress overlay. (10) Malnutrition Assessment & Plan: DAILY ESTIMATED NEEDS: Needs based on Wound, 66.8kg 28-33 kcals/kg 1487-6119 total kcals 1.25-1.5 g protein/kg 84-100 g total protein 25-30 mL/kg 5624-7148 total fluid mLs NUTRITION DIAGNOSIS: Swallowing difficulty r/t dysphagia and ams as evidenced by s/p BOOKING PRIZER eval, poor cognition, pt on liquify puree texture diet w/ HTL, now with improved intake. CURRENT DIET: Liquify puree HTL Regular PO DIET RECOMMENDATIONS: Maintain Regular diet, texture per BOOKING PRIZER ADDITIONAL RECOMMENDATIONS: 1) Ensure Enlive TID w/ meals (350kcal/20g prot per bottle) 2) Maintain calibrated bed scale wts EMR wt: 160# vs Bed scale wt: 147#-> bed now reads 109.8# 3) Consider D5 IVF (vs 1/2 NS running currently)- Na elevated to prevent hypoglycemia given poor/variable PO 4) Wound care: MVI 1 tab QD + Vit C 250mg QD+ Jacob BID 5) Monitor lytes, replete as needed (11) Severe protein-calorie malnutrition Sai Aaron September 21, 2019 15:08
[2019-09-21 16:00] VITALS: BP_SYST 135; BP_SYST 137; BP_DIAS 61; BP_DIAS 62
--- NOTE | 2019-09-21 17:51 | Urology Progress Note ---
Assessment/Plan Status: stable, progressing, not improved Assessment/Plan: 1. Gross hematuria hx, presumably secondary to Doshi trauma, resolved. 2. BPH. 3. Urinary retention. 4. Neurogenic bladder. 5. Pyuria?UTI/colonized. 6. Proteinuria. 7. Renal insufficiency, which appears to be acute on chronic. 8. Rule out urethral stricture. monitor clinically doshi out, voiding/incontinent on proscar and flomax back on abx restraints PRN cysto at some point monitor PVR and reinsert doshi PRN renal imaging? COVID (+) hx Eliquis resumed monitor for bleeding recheck urine cx Subjective Allergies: Coded Allergies: No Known Allergies (Unverified , 06/05/19) Subjective all noted, confused, doshi out, incontinent, condom cath Objective Last 24 Hour Vital Signs Date Time Temp Pulse Resp B/P (MAP) Pulse Ox O2 Delivery O2 Flow Rate FiO2 09/21/19 16:00 97.5 94 21 135/62 (86) 93 09/21/19 16:00 100.9 92 21 137/61 (86) 93 09/21/19 13:50 140/60 09/21/19 12:00 97.5 94 21 135/62 (86) 93 09/21/19 10:06 87 141/64 09/21/19 10:05 141/64 09/21/19 09:00 Room Air 09/21/19 08:00 98.9 84 21 140/56 (84) 93 09/21/19 05:44 141/62 09/21/19 04:00 98.9 95 20 141/62 (88) 93 09/21/19 00:00 99.5 97 20 144/60 (88) 94 09/20/19 21:00 Room Air 09/20/19 20:00 98.6 102 22 98/59 (72) 93 Intake and Output 09/20/19 09/21/19 19:00 07:00 Intake Total 300 ml Output Total 280 ml 400 ml Balance 20 ml -400 ml Other 300 ml Output Urine Total 280 ml 400 ml # Bowel Movements 1 Microbiology Date/Time Source Procedure Growth Status 09/18/19 16:15 Nasopharynx Coronavirus COVID-19 PCR ([facility]OS[facility]) - Final Complete 08/28/19 12:31 Indwelling Cath Urine Culture - Final Pseudomonas Aeruginosa Raoultella [place] Complete 08/06/19 04:45 Rectum VRE Culture - Final NO VANCOMYCIN RESISTANT ENTEROCOCCUS ... Complete Current Medications Medications (Trade) Dose Ordered Sig/Kristine Route PRN Reason Start Time Stop Time Status Last Admin Dose Admin Acetaminophen (Tylenol) 650 mg Q4H PRN ORAL Fever 09/09/19 22:30 10/09/19 22:29 09/20/19 12:41 Amlodipine Besylate (Norvasc) 10 mg DAILY ORAL 09/10/19 09:00 09/28/19 08:59 09/21/19 10:06 Apixaban (Eliquis) 2.5 mg BID@0900,2100 ORAL 09/09/19 21:00 12/06/19 08:59 09/21/19 10:04 Ascorbic Acid (Vitamin C) 250 mg DAILY ORAL 09/10/19 09:00 10/10/19 08:59 09/21/19 10:07 Bisacodyl (Dulcolax) 10 mg DAILYPRN PRN RECTAL Constipation 09/18/19 17:00 12/17/19 16:59 Calcitonin [place] (Miacalcin) 1 sprays DAILY NASAL 09/12/19 13:00 12/11/19 12:59 09/21/19 13:04 Famotidine (Pepcid) 20 mg DAILY ORAL 09/10/19 09:00 12/09/19 08:59 09/21/19 10:04 Finasteride (Proscar) 5 mg DAILY ORAL 09/10/19 09:00 11/05/19 15:44 09/21/19 10:05 Hydralazine HCl (Apresoline) 50 mg Q8HR ORAL 09/12/19 22:00 12/11/19 21:59 09/21/19 13:50 Isosorbide Mononitrate (Imdur) 60 mg DAILY ORAL 09/21/19 09:00 10/21/19 08:59 09/21/19 10:05 Multivitamins (Multivitamins) 1 tab DAILY ORAL 09/10/19 09:00 10/10/19 08:59 09/21/19 10:05 Piperacillin Sod/ Tazobactam Sod 3.375 gm/Sodium Chloride 110 ml @ 27.5 mls/hr Q12H IVPB 09/21/19 18:00 09/28/19 17:59 Tamsulosin HCl (Flomax) 0.4 mg BID ORAL 09/12/19 12:00 10/06/19 20:59 09/21/19 10:06 Valproic Acid (Depakene) 250 mg EVERY 12 HOURS NG 09/09/19 21:00 10/22/19 20:59 09/21/19 10:17 Laboratory Tests 09/20/19 18:31: Urine Color Yellow, Urine Appearance Slightly cloudy, Urine pH 7, Urine Specific [place] 1.010, Urine Protein 3+H, Urine Glucose (UA) Negative, Urine Ketones 2+H, Urine Blood Negative, Urine Nitrite Negative, Urine Bilirubin Negative, Urine Urobilinogen 1H, Urine Leukocyte Esterase 1+H, Urine RBC 0, Urine WBC 0-2, Urine Squamous Epithelial Cells None, Urine Bacteria ManyH Height (Feet): 5 Height (Inches): 6.00 Weight (Pounds): 91 Objective exam stable abdomen soft urine grossly yellow Elsi,Miki Perry MD September 21, 2019 17:51
[2019-09-21] MEDS: Zosyn 3.375gm in NS 110ml IVPB SCH (18:54)
[2019-09-21] MEDS: Acetaminophen 650mg/20.3ml ORAL PRN (18:58)
--- NOTE | 2019-09-21 19:00 | NUR ---
NURSE NOTES: Temp axillary 101.8,tylenol given as orderd for temp.will endorse to reasses temp.
--- NOTE | 2019-09-21 19:21 | NUR ---
HAND-OFF: Report given to Rigoberto GOULD aware of fall risk..
--- NOTE | 2019-09-21 19:30 | NUR ---
NURSE NOTES: Patient in bed, with O2 @ 3LPM via nasal cannula. Safety measures applied. Will continue plan of care.
[2019-09-21 20:00] VITALS: BP 129/59
--- NOTE | 2019-09-21 21:37 | NUR ---
NURSE NOTES: Cooling measures done.
[2019-09-22] VITALS: BP 124/63
[2019-09-22 04:00] VITALS: BP 147/53
[2019-09-22] MEDS: HydrALAZINE 50mg tab ORAL SCH ×3 (05:13→21:14)
[2019-09-22] MEDS: Zosyn 3.375gm in NS 110ml IVPB SCH ×2 (05:15→18:00)
[2019-09-22] MEDS: Acetaminophen 650mg/20.3ml ORAL PRN (05:16)
[2019-09-22 07:17] LABS: HEMATOCRIT 26.8 % (42.0-52.0); HEMOGLOBIN 8.9 G/DL (14.2-18.0); MEAN CORPUSCULAR VOLUME 87 FL (80-99); PLATELET COUNT 302 K/UL (150-450); RED BLOOD COUNT 3.09 M/UL (4.70-6.10); RED CELL DISTRIBUTION WIDTH 13.1 % (11.6-14.8); WHITE BLOOD COUNT 15.9 K/UL (4.8-10.8)
--- NOTE | 2019-09-22 07:20 | NUR ---
NURSE NOTES: Dr. Echavarria made aware of patient's fever. No new orders at this time.
--- NOTE | 2019-09-22 07:26 | NUR ---
HAND-OFF: Report given to LUIS FERNANDO Hall.
--- NOTE | 2019-09-22 07:54 | NUR ---
NURSE NOTES: Patient alert to name,respirations unlabored.02 on at 2L.Patient has condom catheter in place.Will assist patient with breakfast.Bed alarm is on.
[2019-09-22 08:35] LABS: ALANINE AMINOTRANSFERASE 32 U/L (12-78); ALBUMIN 1.8 G/DL (3.4-5.0); ALBUMIN/GLOBULIN RATIO 0.4 (1.0-2.7); ALKALINE PHOSPHATASE 89 U/L (46-116); ANION GAP 12 mmol/L (5-15); ASPARTATE AMINO TRANSFERASE 49 U/L (15-37); BILIRUBIN,TOTAL 0.3 MG/DL (0.2-1.0); BLOOD UREA NITROGEN 54 mg/dL (7-18); CALCIUM 9.4 MG/DL (8.5-10.1); CARBON DIOXIDE 27 MMOL/L (21-32); CHLORIDE 118 MMOL/L (98-107); CREATININE 2.1 MG/DL (0.55-1.30); POTASSIUM 3.6 MMOL/L (3.5-5.1); SODIUM 157 MMOL/L (136-145)
[2019-09-22 08:57] VITALS: BP 122/54
[2019-09-22] MEDS: Eliquis 2.5mg tablet ORAL SCH (09:00)
[2019-09-22] MEDS: Tamsulosin 0.4mg cap ORAL SCH ×2 (09:00→18:00)
[2019-09-22] MEDS: Valproic Acid 250mg/5ml Liquid NG SCH ×2 (09:00→21:15)
[2019-09-22] MEDS: Ascorbic Acid 500mg tab ORAL SCH (09:00)
[2019-09-22] MEDS: Imdur 30mg tab ORAL SCH (09:00)
--- NOTE | 2019-09-22 09:27 | NUR ---
NURSE NOTES: Patient 02 saturation 89-90%, patient is on 02 patient temperature 101.8 ,will notify DR Echavarria regarding patient tylenol order to ask for change from by mouth to suppository. Patient not able to take medication ,attempt to give 1/2 teaspoon of thicken liquid,patient not not swallowing,oral care given .HOB is elevated.
[2019-09-22] MEDS ORDERED: D5 1/2NS 1,000 ML IV SCH (09:45)
[2019-09-22] MEDS: Acetaminophen 650 MG SUPP RECTAL PRN ×2 (10:35→16:21)
[2019-09-22] MEDS: Enoxaparin 30mg Inj SUBQ SCH (10:37)
--- NOTE | 2019-09-22 11:05 | Nephrology Progress Note ---
Assessment/Plan Problem List: (1) Renal failure (ARF), acute on chronic Assessment: Serum creatinine stabilizing (2) Falls frequently (3) UTI (urinary tract infection) Assessment: and hematuria (4) Anemia (5) Dehydration (6) Encephalopathy due to metabolic factor or toxin (7) Hypercalcemia Assessment Frequent falls Acute renal failure with underlying dehydration Anemia, underlying etiology unclear UTI (urinary tract infection) Toxic metabolic encephalopathy Plan Serum creatinine up to 2.1 Will start D5W 1 L only IV fluid Monitor renal parameters and serum sodium Fluid challenge to be for and repeat as needed 1 dose of Aredia for hypercalcemia was given before We will monitor calcium and phosphorus Previously Trial of 3% saline 250 cc for hyponatremia raised serum sodium from 129- to 134 Serum creatinine overall stable, it is 1.5 today Watch serum calcium, start calcitonin nasal spray for hypercalcemia Increase hydralazine dose for better blood pressure control Patient now COVID-19 positive Start D5W for hypernatremia as needed P.o. intake variable Oral potassium supplement as needed previously: Increase Flomax to twice daily Correct electrolytes as needed Transfusion as needed 2D echocardiogram ejection fraction 60% Kidney ultrasound pending results Monitor renal parameters Avoid nephrotoxics Antibiotics for UTI Continue per consultants Subjective ROS Limited/Unobtainable: No Constitutional: Reports: malaise, weakness Objective Objective Last 24 Hour Vital Signs Date Time Temp Pulse Resp B/P (MAP) Pulse Ox O2 Delivery O2 Flow Rate FiO2 09/22/19 09:30 Room Air 09/22/19 09:00 122/54 09/22/19 09:00 100 122/54 09/22/19 08:57 101.8 94 24 122/54 (76) 90 09/22/19 05:46 100.9 09/22/19 05:13 147/53 09/22/19 04:00 101.3 94 18 147/53 (84) 94 09/22/19 00:00 99.4 92 17 124/63 (83) 96 09/21/19 21:00 Room Air 09/21/19 20:00 100.7 97 129/59 (82) 09/21/19 16:00 97.5 94 21 135/62 (86) 93 09/21/19 16:00 100.9 92 21 137/61 (86) 93 09/21/19 13:50 140/60 09/21/19 12:00 97.5 94 21 135/62 (86) 93 Intake and Output 09/21/19 09/22/19 19:00 07:00 Intake Total 300 ml 100 ml Output Total 400 ml 250 ml Balance -100 ml -150 ml Intake Oral 300 ml 100 ml Output Urine Total 400 ml 250 ml # Bowel Movements 1 Laboratory Tests 09/22/19 05:30: Phosphorus Level 2.1L, Troponin I 0.093H 09/22/19 05:40: White Blood Count 15.9H, Red Blood Count 3.09L, Hemoglobin 8.9L, Hematocrit 26.8L, Mean Corpuscular Volume 87, Mean Corpuscular Hemoglobin 28.7, Mean Corpuscular Hemoglobin Concent 33.1, Red Cell Distribution Width 13.1, Platelet Count 302, Mean Platelet Volume 5.5L, Neutrophils (%) (Auto) , Lymphocytes (%) ( Auto) , Monocytes (%) (Auto) , Eosinophils (%) (Auto) , Basophils (%) (Auto) , Differential Total Cells Counted 100, Neutrophils % (Manual) 87H, Lymphocytes % (Manual) 7L, Monocytes % (Manual) 3, Eosinophils % (Manual) 0, Basophils % ( Manual) 0, Band Neutrophils 3, Platelet Estimate Adequate, Platelet Morphology Normal, Hypochromasia 2+, Anisocytosis 1+, Sodium Level 157H, Potassium Level 3.6, Chloride Level 118H, Carbon Dioxide Level 27, Anion Gap 12, Blood Urea Nitrogen 54H, Creatinine 2.1H, Estimat Glomerular Filtration Rate 30.2, Glucose Level 99, Calcium Level 9.4, Total Bilirubin 0.3, Aspartate Amino Transf (AST/ SGOT) 49H, Alanine Aminotransferase (ALT/SGPT) 32, Alkaline Phosphatase 89, Pro- B-Type Natriuretic Peptide 7137H, Total Protein 6.6, Albumin 1.8L, Globulin 4.8 , Albumin/Globulin Ratio 0.4L Height (Feet): 5 Height (Inches): 6.00 Weight (Pounds): 91 General Appearance: no apparent distress, lethargic, other - Febrile Cardiovascular: tachycardia Respiratory/Chest: decreased breath sounds Abdomen: distended Objective No change Juan Jade MD September 22, 2019 11:05
[2019-09-22] MEDS ORDERED: Phospha 250 Neutral tab ORAL SCH (11:15)
--- NOTE | 2019-09-22 11:18 | Pulmonology Progress Note ---
Subjective ROS Limited/Unobtainable: No Interval Events: None new reported Constitutional: Reports: fever, anorexia, other - T=100.1 HEENT: Repors: no symptoms Respiratory: Reports: no symptoms Cardiovascular: Reports: no symptoms Gastrointestinal/Abdominal: Denies: nausea, vomiting, diarrhea Genitourinary: Reports: no symptoms; Denies: dysuria, hematuria, frequency, nocturia, urgency, other Neurologic: Reports: no symptoms Musculoskeletal: Denies: no symptoms, pain, swelling, stiffness, other Allergies: Coded Allergies: No Known Allergies (Unverified , 06/05/19) All Systems: reviewed and negative except above Objective Last 24 Hour Vital Signs Date Time Temp Pulse Resp B/P (MAP) Pulse Ox O2 Delivery O2 Flow Rate FiO2 09/22/19 09:30 Room Air 09/22/19 09:00 122/54 09/22/19 09:00 100 122/54 09/22/19 08:57 101.8 94 24 122/54 (76) 90 09/22/19 05:46 100.9 09/22/19 05:13 147/53 09/22/19 04:00 101.3 94 18 147/53 (84) 94 09/22/19 00:00 99.4 92 17 124/63 (83) 96 09/21/19 21:00 Room Air 09/21/19 20:00 100.7 97 129/59 (82) 09/21/19 16:00 97.5 94 21 135/62 (86) 93 09/21/19 16:00 100.9 92 21 137/61 (86) 93 09/21/19 13:50 140/60 09/21/19 12:00 97.5 94 21 135/62 (86) 93 Intake and Output 09/21/19 09/22/19 19:00 07:00 Intake Total 300 ml 100 ml Output Total 400 ml 250 ml Balance -100 ml -150 ml Intake Oral 300 ml 100 ml Output Urine Total 400 ml 250 ml # Bowel Movements 1 General Appearance: cachetic HEENT: mucous membranes moist Respiratory/Chest: chest wall non-tender, lungs clear Cardiovascular: normal peripheral pulses Abdomen: soft, non tender Extremities: no edema Neurologic/Psychiatric: disoriented Microbiology Date/Time Source Procedure Growth Status 09/20/19 18:31 Urine,Clean Catch Urine Culture - Preliminary Gram Negative Bacillus 1 Resulted Laboratory Tests 5/7/20 05:30: Phosphorus Level 2.1L, Troponin I 0.093H 09/22/19 05:40: White Blood Count 15.9H, Red Blood Count 3.09L, Hemoglobin 8.9L, Hematocrit 26.8L, Mean Corpuscular Volume 87, Mean Corpuscular Hemoglobin 28.7, Mean Corpuscular Hemoglobin Concent 33.1, Red Cell Distribution Width 13.1, Platelet Count 302, Mean Platelet Volume 5.5L, Neutrophils (%) (Auto) , Lymphocytes (%) ( Auto) , Monocytes (%) (Auto) , Eosinophils (%) (Auto) , Basophils (%) (Auto) , Differential Total Cells Counted 100, Neutrophils % (Manual) 87H, Lymphocytes % (Manual) 7L, Monocytes % (Manual) 3, Eosinophils % (Manual) 0, Basophils % ( Manual) 0, Band Neutrophils 3, Platelet Estimate Adequate, Platelet Morphology Normal, Hypochromasia 2+, Anisocytosis 1+, Sodium Level 157H, Potassium Level 3.6, Chloride Level 118H, Carbon Dioxide Level 27, Anion Gap 12, Blood Urea Nitrogen 54H, Creatinine 2.1H, Estimat Glomerular Filtration Rate 30.2, Glucose Level 99, Calcium Level 9.4, Total Bilirubin 0.3, Aspartate Amino Transf (AST/ SGOT) 49H, Alanine Aminotransferase (ALT/SGPT) 32, Alkaline Phosphatase 89, Pro- B-Type Natriuretic Peptide 7137H, Total Protein 6.6, Albumin 1.8L, Globulin 4.8 , Albumin/Globulin Ratio 0.4L Current Medications Medications (Trade) Dose Ordered Sig/Kristine Route PRN Reason Start Time Stop Time Status Last Admin Dose Admin Acetaminophen (Tylenol) 650 mg Q4H PRN ORAL Fever 09/09/19 22:30 10/09/19 22:29 09/22/19 05:16 Acetaminophen (Tylenol) 650 mg Q4H PRN RECTAL Mild Pain (Pain Scale 1-3) 09/22/19 09:45 10/22/19 09:44 09/22/19 10:35 Amlodipine Besylate (Norvasc) 10 mg DAILY ORAL 09/10/19 09:00 09/28/19 08:59 09/21/19 10:06 Ascorbic Acid (Vitamin C) 250 mg DAILY ORAL 09/10/19 09:00 10/10/19 08:59 09/21/19 10:07 Bisacodyl (Dulcolax) 10 mg DAILYPRN PRN RECTAL Constipation 09/18/19 17:00 12/17/19 16:59 Calcitonin [place] (Miacalcin) 1 sprays DAILY NASAL 09/12/19 13:00 12/11/19 12:59 09/22/19 10:21 Dextrose 1,000 ml @ 100 mls/hr Q10H ONCE IV 09/22/19 11:15 09/22/19 21:14 Enoxaparin Sodium (Lovenox) 30 mg DAILY SUBQ 09/22/19 11:00 12/21/19 10:59 09/22/19 10:37 Famotidine (Pepcid) 20 mg DAILY ORAL 09/10/19 09:00 12/09/19 08:59 09/21/19 10:04 Finasteride (Proscar) 5 mg DAILY ORAL 09/10/19 09:00 11/05/19 15:44 09/21/19 10:05 Hydralazine HCl (Apresoline) 50 mg Q8HR ORAL 09/12/19 22:00 12/11/19 21:59 09/22/19 05:13 Isosorbide Mononitrate (Imdur) 60 mg DAILY ORAL 09/21/19 09:00 10/21/19 08:59 09/21/19 10:05 Multivitamins (Multivitamins) 1 tab DAILY ORAL 09/10/19 09:00 10/10/19 08:59 09/21/19 10:05 Phosphorus (Phospha 250 Neutral) 500 mg ONCE ORAL 09/22/19 11:15 09/22/19 12:15 Piperacillin Sod/ Tazobactam Sod 3.375 gm/Sodium Chloride 110 ml @ 27.5 mls/hr Q12H IVPB 09/21/19 18:00 09/28/19 17:59 09/22/19 05:15 Tamsulosin HCl (Flomax) 0.4 mg BID ORAL 09/12/19 12:00 10/06/19 20:59 09/21/19 18:59 Valproic Acid (Depakene) 250 mg EVERY 12 HOURS NG 09/09/19 21:00 10/22/19 20:59 09/21/19 20:35 Assessment/Plan Assessment/Plan IMPRESSION: 1. Pleural effusions, small bilateral. 2. Atelectasis. 3. Pulmonary edema, questionable. 4. Hypertension. 5. Hyperlipidemia. 6. positive COVID 19 7. 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 No new recommendations Kimani Hahn M.D. Kimani Hahn MD September 22, 2019 11:18
[2019-09-22 12:00] VITALS: BP 98/50
--- NOTE | 2019-09-22 12:04 | Infectious Diseases Prog Note ---
Assessment/Plan Assessment/Plan A 1. COVID 19 pneumonia Positive on 4.14.20, 4.16.20, 09/06, 09/11, 5/3 Negative on 09/13 2. New gram negative urinary tract infection 3. Renal failure. 4. hypertension 5. cardiomyopathy P 1. Continue Zosyn 2. will follow up COVID test 3. Continue isolation Subjective ROS Limited/Unobtainable: Yes Constitutional: Reports: fever, other Allergies: Coded Allergies: No Known Allergies (Unverified , 06/05/19) Objective Vital Signs Last 24 Hour Vital Signs Date Time Temp Pulse Resp B/P (MAP) Pulse Ox O2 Delivery O2 Flow Rate FiO2 09/22/19 09:30 Room Air 09/22/19 09:00 122/54 09/22/19 09:00 100 122/54 09/22/19 08:57 101.8 94 24 122/54 (76) 90 09/22/19 05:46 100.9 09/22/19 05:13 147/53 09/22/19 04:00 101.3 94 18 147/53 (84) 94 09/22/19 00:00 99.4 92 17 124/63 (83) 96 09/21/19 21:00 Room Air 09/21/19 20:00 100.7 97 129/59 (82) 09/21/19 16:00 97.5 94 21 135/62 (86) 93 09/21/19 16:00 100.9 92 21 137/61 (86) 93 09/21/19 13:50 140/60 Height (Feet): 5 Height (Inches): 6.00 Weight (Pounds): 91 HEENT: mucous membranes moist Respiratory/Chest: other - oxygen by nasal cannula Cardiovascular: tachycardia Abdomen: soft, non tender Neurologic/Psychiatric: aphasia Microbiology Date/Time Source Procedure Growth Status 09/20/19 18:31 Urine,Clean Catch Urine Culture - Preliminary Gram Negative Bacillus 1 Resulted Laboratory Tests Test 09/22/19 05:30 09/22/19 05:40 Phosphorus Level 2.1 MG/DL (2.5-4.9) L Troponin I 0.093 ng/mL (0.000-0.056) White Blood Count 15.9 K/UL (4.8-10.8) H Red Blood Count 3.09 M/UL (4.70-6.10) L Hemoglobin 8.9 G/DL (14.2-18.0) L Hematocrit 26.8 % (42.0-52.0) L Mean Corpuscular Volume 87 FL (80-99) Mean Corpuscular Hemoglobin 28.7 PG (27.0-31.0) Mean Corpuscular Hemoglobin Concent 33.1 G/DL (32.0-36.0) Red Cell Distribution Width 13.1 % (11.6-14.8) Platelet Count 302 K/UL (150-450) Mean Platelet Volume 5.5 FL (6.5-10.1) L Neutrophils (%) (Auto) % (45.0-75.0) Lymphocytes (%) (Auto) % (20.0-45.0) Monocytes (%) (Auto) % (1.0-10.0) Eosinophils (%) (Auto) % (0.0-3.0) Basophils (%) (Auto) % (0.0-2.0) Differential Total Cells Counted 100 Neutrophils % (Manual) 87 % (45-75) H Lymphocytes % (Manual) 7 % (20-45) L Monocytes % (Manual) 3 % (1-10) Eosinophils % (Manual) 0 % (0-3) Basophils % (Manual) 0 % (0-2) Band Neutrophils 3 % (0-8) Platelet Estimate Adequate Platelet Morphology Normal Hypochromasia 2+ Anisocytosis 1+ Sodium Level 157 MMOL/L (136-145) H Potassium Level 3.6 MMOL/L (3.5-5.1) Chloride Level 118 MMOL/L (98-107) H Carbon Dioxide Level 27 MMOL/L (21-32) Anion Gap 12 mmol/L (5-15) Blood Urea Nitrogen 54 mg/dL (7-18) H Creatinine 2.1 MG/DL (0.55-1.30) H Estimat Glomerular Filtration Rate 30.2 mL/min (>60) Glucose Level 99 MG/DL (74-106) Calcium Level 9.4 MG/DL (8.5-10.1) Total Bilirubin 0.3 MG/DL (0.2-1.0) Aspartate Amino Transf (AST/SGOT) 49 U/L (15-37) H Alanine Aminotransferase (ALT/SGPT) 32 U/L (12-78) Alkaline Phosphatase 89 U/L (46-116) Pro-B-Type Natriuretic Peptide 7137 pg/mL (0-125) H Total Protein 6.6 G/DL (6.4-8.2) Albumin 1.8 G/DL (3.4-5.0) L Globulin 4.8 g/dL Albumin/Globulin Ratio 0.4 (1.0-2.7) L Current Medications Medications (Trade) Dose Ordered Sig/Kristine Route PRN Reason Start Time Stop Time Status Last Admin Dose Admin Acetaminophen (Tylenol) 650 mg Q4H PRN ORAL Fever 09/09/19 22:30 10/09/19 22:29 09/22/19 05:16 Acetaminophen (Tylenol) 650 mg Q4H PRN RECTAL Mild Pain (Pain Scale 1-3) 09/22/19 09:45 10/22/19 09:44 09/22/19 10:35 Amlodipine Besylate (Norvasc) 10 mg DAILY ORAL 09/10/19 09:00 09/28/19 08:59 09/21/19 10:06 Ascorbic Acid (Vitamin C) 250 mg DAILY ORAL 09/10/19 09:00 10/10/19 08:59 09/21/19 10:07 Bisacodyl (Dulcolax) 10 mg DAILYPRN PRN RECTAL Constipation 09/18/19 17:00 12/17/19 16:59 Calcitonin [place] (Miacalcin) 1 sprays DAILY NASAL 09/12/19 13:00 12/11/19 12:59 09/22/19 10:21 Dextrose 1,000 ml @ 100 mls/hr Q10H ONCE IV 09/22/19 11:15 09/22/19 21:14 09/22/19 11:46 Enoxaparin Sodium (Lovenox) 30 mg DAILY SUBQ 09/22/19 11:00 12/21/19 10:59 09/22/19 10:37 Famotidine (Pepcid) 20 mg DAILY ORAL 09/10/19 09:00 12/09/19 08:59 09/21/19 10:04 Finasteride (Proscar) 5 mg DAILY ORAL 09/10/19 09:00 11/05/19 15:44 09/21/19 10:05 Hydralazine HCl (Apresoline) 50 mg Q8HR ORAL 09/12/19 22:00 12/11/19 21:59 09/22/19 05:13 Isosorbide Mononitrate (Imdur) 60 mg DAILY ORAL 09/21/19 09:00 10/21/19 08:59 09/21/19 10:05 Multivitamins (Multivitamins) 1 tab DAILY ORAL 09/10/19 09:00 10/10/19 08:59 09/21/19 10:05 Phosphorus (Phospha 250 Neutral) 500 mg ONCE ORAL 09/22/19 11:15 09/22/19 12:15 Piperacillin Sod/ Tazobactam Sod 3.375 gm/Sodium Chloride 110 ml @ 27.5 mls/hr Q12H IVPB 09/21/19 18:00 09/28/19 17:59 09/22/19 05:15 Tamsulosin HCl (Flomax) 0.4 mg BID ORAL 09/12/19 12:00 10/06/19 20:59 09/21/19 18:59 Valproic Acid (Depakene) 250 mg EVERY 12 HOURS NG 09/09/19 21:00 10/22/19 20:59 09/21/19 20:35 Cr Mauro MD September 22, 2019 12:04
--- NOTE | 2019-09-22 14:53 | General Progress Note ---
Assessment/Plan Problem List: (1) CHF (congestive heart failure) ICD Codes: I50.9 - Heart failure, unspecified SNOMED: 82646921 (2) Renal failure (ARF), acute on chronic ICD Codes: N17.9 - Acute kidney failure, unspecified; N18.9 - Chronic kidney disease, unspecified SNOMED: 683899059 (3) Encephalopathy due to metabolic factor or toxin SNOMED: 127515484 (4) Gross hematuria ICD Codes: R31.0 - Gross hematuria SNOMED: 639079165 (5) Falls frequently ICD Codes: R29.6 - Repeated falls SNOMED: 877685365 (6) Dehydration ICD Codes: E86.0 - Dehydration SNOMED: 35990532 (7) UTI (urinary tract infection) ICD Codes: N39.0 - Urinary tract infection, site not specified SNOMED: 44333551 (8) Anemia ICD Codes: D64.9 - Anemia, unspecified SNOMED: 904278177 Status: stable, progressing, not improved Assessment/Plan: o2 as needed. titrate to keep sats >92 fall precautions. monitor cxr follow up cultures swallow eval monitor bmp and lytes Anxiolytics as needed. Continue blood pressure treatment. DVT and stress ulcer prophylaxis. tylenol for fevers ID follow up Subjective ROS Limited/Unobtainable: No Constitutional: Reports: fever, malaise, weakness HEENT: Reports: no symptoms Cardiovascular: Reports: no symptoms Respiratory: Reports: cough, shortness of breath Gastrointestinal/Abdominal: Reports: no symptoms Genitourinary: Reports: no symptoms Neurologic/Psychiatric: Reports: depressed, pre-existing deficit Endocrine: Reports: no symptoms Hematologic/Lymphatic: Reports: anemia Allergies: Coded Allergies: No Known Allergies (Unverified , 06/05/19) All Systems: reviewed and negative except above Subjective febrile today. increased sob. on o2. elevated Na noted. confused. cxr with increased left sided infiltrate Objective Last 24 Hour Vital Signs Date Time Temp Pulse Resp B/P (MAP) Pulse Ox O2 Delivery O2 Flow Rate FiO2 09/22/19 12:18 101.0 09/22/19 12:00 101.0 94 24 98/50 (66) 90 09/22/19 09:30 Room Air 09/22/19 09:00 122/54 09/22/19 09:00 100 122/54 09/22/19 08:57 101.8 94 24 122/54 (76) 90 09/22/19 05:46 100.9 09/22/19 05:13 147/53 09/22/19 04:00 101.3 94 18 147/53 (84) 94 09/22/19 00:00 99.4 92 17 124/63 (83) 96 09/21/19 21:00 Room Air 09/21/19 20:00 100.7 97 129/59 (82) 09/21/19 16:00 97.5 94 21 135/62 (86) 93 09/21/19 16:00 100.9 92 21 137/61 (86) 93 Intake and Output 09/21/19 09/22/19 19:00 07:00 Intake Total 300 ml 100 ml Output Total 400 ml 250 ml Balance -100 ml -150 ml Intake Oral 300 ml 100 ml Output Urine Total 400 ml 250 ml # Bowel Movements 1 Laboratory Tests 09/22/19 05:30: Phosphorus Level 2.1L, Troponin I 0.093H 09/22/19 05:40: White Blood Count 15.9H, Red Blood Count 3.09L, Hemoglobin 8.9L, Hematocrit 26.8L, Mean Corpuscular Volume 87, Mean Corpuscular Hemoglobin 28.7, Mean Corpuscular Hemoglobin Concent 33.1, Red Cell Distribution Width 13.1, Platelet Count 302, Mean Platelet Volume 5.5L, Neutrophils (%) (Auto) , Lymphocytes (%) ( Auto) , Monocytes (%) (Auto) , Eosinophils (%) (Auto) , Basophils (%) (Auto) , Differential Total Cells Counted 100, Neutrophils % (Manual) 87H, Lymphocytes % (Manual) 7L, Monocytes % (Manual) 3, Eosinophils % (Manual) 0, Basophils % ( Manual) 0, Band Neutrophils 3, Platelet Estimate Adequate, Platelet Morphology Normal, Hypochromasia 2+, Anisocytosis 1+, Sodium Level 157H, Potassium Level 3.6, Chloride Level 118H, Carbon Dioxide Level 27, Anion Gap 12, Blood Urea Nitrogen 54H, Creatinine 2.1H, Estimat Glomerular Filtration Rate 30.2, Glucose Level 99, Calcium Level 9.4, Total Bilirubin 0.3, Aspartate Amino Transf (AST/ SGOT) 49H, Alanine Aminotransferase (ALT/SGPT) 32, Alkaline Phosphatase 89, Pro- B-Type Natriuretic Peptide 7137H, Total Protein 6.6, Albumin 1.8L, Globulin 4.8 , Albumin/Globulin Ratio 0.4L Height (Feet): 5 Height (Inches): 6.00 Weight (Pounds): 91 Objective General Appearance: WD/WN, alert, confused Neck: supple Cardiovascular: regular rhythm Respiratory/Chest: rhonchi - bilaterally Abdomen: normal bowel sounds, non tender, soft, no organomegaly, no mass Edema: no edema noted Arm (L), no edema noted Arm (R), no edema noted Leg (L), no edema noted Leg (R), no edema noted Pedal (L), no edema noted Pedal (R), no edema noted Generalized Neurologic: production checker II-XII grossly normal, alert, responsive Iggy Echavarria MD September 22, 2019 14:53
--- NOTE | 2019-09-22 15:04 | NUR ---
NURSE NOTES: DR Jade was notified by Charge Nurse Bee that patient unable to take po medication.Order noted by DR Munguia for swallow eval.
--- NOTE | 2019-09-22 15:12 | NUR ---
*-* DISCHARGE PLANNING *-* PATIENT HAS BEEN REFERRED TO: [facility] P: [phone] F: [phone] [facility] P: [phone] F: [phone] [facility] RJ P: [phone] F: [phone] EFAX: [phone] [facility] PRABHA P: [phone] F: [phone] EFAX: [phone] Addendum: 09/23/19 at 1642 by MARCUS OBRIEN LVN CM TO F/U ON THURSDAY PATIENT CONTINUES TO SPIKE FEVERS NOT STABLE FOR DISCHARGE
--- NOTE | 2019-09-22 15:15 | NUR ---
*-*INSURANCE*-* UPDATED CLINICALS AND REVIEWS HAVE BEEN FACXED TO: [facility] P: [phone] F: [phone] REF# [id number]
[2019-09-22 16:00] VITALS: BP 124/71
--- NOTE | 2019-09-22 17:38 | Urology Progress Note ---
Assessment/Plan Status: stable, progressing, not improved Assessment/Plan: 1. Gross hematuria hx, presumably secondary to Doshi trauma, resolved. 2. BPH. 3. Urinary retention. 4. Neurogenic bladder. 5. Pyuria?UTI/colonized. 6. Proteinuria. 7. Renal insufficiency, which appears to be acute on chronic. 8. Rule out urethral stricture. monitor clinically doshi out, voiding/incontinent on proscar and flomax back on abx restraints PRN cysto at some point monitor PVR and reinsert doshi PRN renal imaging? COVID (+) hx Eliquis resumed monitor for bleeding recheck urine cx Subjective Allergies: Coded Allergies: No Known Allergies (Unverified , 06/05/19) Subjective all noted, confused, doshi out, incontinent, condom cath Objective Last 24 Hour Vital Signs Date Time Temp Pulse Resp B/P (MAP) Pulse Ox O2 Delivery O2 Flow Rate FiO2 09/22/19 16:00 102.1 100 23 124/71 (88) 96 09/22/19 12:18 101.0 09/22/19 12:00 101.0 94 24 98/50 (66) 90 09/22/19 09:30 Room Air 09/22/19 09:00 122/54 09/22/19 09:00 100 122/54 09/22/19 08:57 101.8 94 24 122/54 (76) 90 09/22/19 05:46 100.9 09/22/19 05:13 147/53 09/22/19 04:00 101.3 94 18 147/53 (84) 94 09/22/19 00:00 99.4 92 17 124/63 (83) 96 09/21/19 21:00 Room Air 09/21/19 20:00 100.7 97 129/59 (82) Intake and Output 09/21/19 09/22/19 19:00 07:00 Intake Total 300 ml 100 ml Output Total 400 ml 250 ml Balance -100 ml -150 ml Intake Oral 300 ml 100 ml Output Urine Total 400 ml 250 ml # Bowel Movements 1 Microbiology Date/Time Source Procedure Growth Status 09/18/19 16:15 Nasopharynx Coronavirus COVID-19 PCR (JOSÉ LUIS) - Final Complete 09/20/19 18:31 Urine,Clean Catch Urine Culture - Preliminary Gram Negative Bacillus 1 Resulted 08/06/19 04:45 Rectum VRE Culture - Final NO VANCOMYCIN RESISTANT ENTEROCOCCUS ... Complete Current Medications Medications (Trade) Dose Ordered Sig/Kristine Route PRN Reason Start Time Stop Time Status Last Admin Dose Admin Acetaminophen (Tylenol) 650 mg Q4H PRN ORAL Fever 09/09/19 22:30 10/09/19 22:29 09/22/19 05:16 Acetaminophen (Tylenol) 650 mg Q4H PRN RECTAL Mild Pain (Pain Scale 1-3) 09/22/19 09:45 10/22/19 09:44 09/22/19 16:21 Amlodipine Besylate (Norvasc) 10 mg DAILY ORAL 09/10/19 09:00 09/28/19 08:59 09/21/19 10:06 Ascorbic Acid (Vitamin C) 250 mg DAILY ORAL 09/10/19 09:00 10/10/19 08:59 09/21/19 10:07 Bisacodyl (Dulcolax) 10 mg DAILYPRN PRN RECTAL Constipation 09/18/19 17:00 12/17/19 16:59 Calcitonin [place] (Miacalcin) 1 sprays DAILY NASAL 09/12/19 13:00 12/11/19 12:59 09/22/19 10:21 Dextrose 1,000 ml @ 100 mls/hr Q10H ONCE IV 09/22/19 11:15 09/22/19 21:14 09/22/19 11:46 Enoxaparin Sodium (Lovenox) 30 mg DAILY SUBQ 09/22/19 11:00 12/21/19 10:59 09/22/19 10:37 Famotidine (Pepcid) 20 mg DAILY ORAL 09/10/19 09:00 12/09/19 08:59 09/21/19 10:04 Finasteride (Proscar) 5 mg DAILY ORAL 09/10/19 09:00 11/05/19 15:44 09/21/19 10:05 Hydralazine HCl (Apresoline) 50 mg Q8HR ORAL 09/12/19 22:00 12/11/19 21:59 09/22/19 05:13 Isosorbide Mononitrate (Imdur) 60 mg DAILY ORAL 09/21/19 09:00 10/21/19 08:59 09/21/19 10:05 Multivitamins (Multivitamins) 1 tab DAILY ORAL 09/10/19 09:00 10/10/19 08:59 09/21/19 10:05 Piperacillin Sod/ Tazobactam Sod 3.375 gm/Sodium Chloride 110 ml @ 27.5 mls/hr Q12H IVPB 09/21/19 18:00 09/28/19 17:59 09/22/19 05:15 Tamsulosin HCl (Flomax) 0.4 mg BID ORAL 09/12/19 12:00 10/06/19 20:59 09/21/19 18:59 Valproic Acid (Depakene) 250 mg EVERY 12 HOURS NG 09/09/19 21:00 10/22/19 20:59 09/21/19 20:35 Laboratory Tests 09/22/19 05:30: Phosphorus Level 2.1L, Troponin I 0.093H 09/22/19 05:40: White Blood Count 15.9H, Red Blood Count 3.09L, Hemoglobin 8.9L, Hematocrit 26.8L, Mean Corpuscular Volume 87, Mean Corpuscular Hemoglobin 28.7, Mean Corpuscular Hemoglobin Concent 33.1, Red Cell Distribution Width 13.1, Platelet Count 302, Mean Platelet Volume 5.5L, Neutrophils (%) (Auto) , Lymphocytes (%) ( Auto) , Monocytes (%) (Auto) , Eosinophils (%) (Auto) , Basophils (%) (Auto) , Differential Total Cells Counted 100, Neutrophils % (Manual) 87H, Lymphocytes % (Manual) 7L, Monocytes % (Manual) 3, Eosinophils % (Manual) 0, Basophils % ( Manual) 0, Band Neutrophils 3, Platelet Estimate Adequate, Platelet Morphology Normal, Hypochromasia 2+, Anisocytosis 1+, Sodium Level 157H, Potassium Level 3.6, Chloride Level 118H, Carbon Dioxide Level 27, Anion Gap 12, Blood Urea Nitrogen 54H, Creatinine 2.1H, Estimat Glomerular Filtration Rate 30.2, Glucose Level 99, Calcium Level 9.4, Total Bilirubin 0.3, Aspartate Amino Transf (AST/ SGOT) 49H, Alanine Aminotransferase (ALT/SGPT) 32, Alkaline Phosphatase 89, Pro- B-Type Natriuretic Peptide 7137H, Total Protein 6.6, Albumin 1.8L, Globulin 4.8 , Albumin/Globulin Ratio 0.4L Height (Feet): 5 Height (Inches): 6.00 Weight (Pounds): 91 Objective exam stable abdomen soft urine grossly yellow Bamshad,Miki Perry MD September 22, 2019 17:38
--- NOTE | 2019-09-22 18:20 | Surgery Progress Note ---
Surgery Progress Note Subjective Additional Comments no acute events comfortable respiratory stable Objective Last 24 Hour Vital Signs Date Time Temp Pulse Resp B/P (MAP) Pulse Ox O2 Delivery O2 Flow Rate FiO2 09/22/19 16:00 102.1 100 23 124/71 (88) 96 09/22/19 12:18 101.0 09/22/19 12:00 101.0 94 24 98/50 (66) 90 09/22/19 09:30 Room Air 09/22/19 09:00 122/54 09/22/19 09:00 100 122/54 09/22/19 08:57 101.8 94 24 122/54 (76) 90 09/22/19 05:46 100.9 09/22/19 05:13 147/53 09/22/19 04:00 101.3 94 18 147/53 (84) 94 09/22/19 00:00 99.4 92 17 124/63 (83) 96 09/21/19 21:00 Room Air 09/21/19 20:00 100.7 97 129/59 (82) I&O Intake and Output 09/21/19 09/22/19 19:00 07:00 Intake Total 300 ml 100 ml Output Total 400 ml 250 ml Balance -100 ml -150 ml Intake Oral 300 ml 100 ml Output Urine Total 400 ml 250 ml # Bowel Movements 1 Dressing: saturated Wound: clean Cardiovascular: RSR Respiratory: clear, decreased breath sounds Abdomen: soft, non-tender, present bowel sounds Extremities: no cyanosis Laboratory Tests Test 09/22/19 05:30 09/22/19 05:40 Phosphorus Level 2.1 MG/DL (2.5-4.9) L Troponin I 0.093 ng/mL (0.000-0.056) White Blood Count 15.9 K/UL (4.8-10.8) H Red Blood Count 3.09 M/UL (4.70-6.10) L Hemoglobin 8.9 G/DL (14.2-18.0) L Hematocrit 26.8 % (42.0-52.0) L Mean Corpuscular Volume 87 FL (80-99) Mean Corpuscular Hemoglobin 28.7 PG (27.0-31.0) Mean Corpuscular Hemoglobin Concent 33.1 G/DL (32.0-36.0) Red Cell Distribution Width 13.1 % (11.6-14.8) Platelet Count 302 K/UL (150-450) Mean Platelet Volume 5.5 FL (6.5-10.1) L Neutrophils (%) (Auto) % (45.0-75.0) Lymphocytes (%) (Auto) % (20.0-45.0) Monocytes (%) (Auto) % (1.0-10.0) Eosinophils (%) (Auto) % (0.0-3.0) Basophils (%) (Auto) % (0.0-2.0) Differential Total Cells Counted 100 Neutrophils % (Manual) 87 % (45-75) H Lymphocytes % (Manual) 7 % (20-45) L Monocytes % (Manual) 3 % (1-10) Eosinophils % (Manual) 0 % (0-3) Basophils % (Manual) 0 % (0-2) Band Neutrophils 3 % (0-8) Platelet Estimate Adequate Platelet Morphology Normal Hypochromasia 2+ Anisocytosis 1+ Sodium Level 157 MMOL/L (136-145) H Potassium Level 3.6 MMOL/L (3.5-5.1) Chloride Level 118 MMOL/L (98-107) H Carbon Dioxide Level 27 MMOL/L (21-32) Anion Gap 12 mmol/L (5-15) Blood Urea Nitrogen 54 mg/dL (7-18) H Creatinine 2.1 MG/DL (0.55-1.30) H Estimat Glomerular Filtration Rate 30.2 mL/min (>60) Glucose Level 99 MG/DL (74-106) Calcium Level 9.4 MG/DL (8.5-10.1) Total Bilirubin 0.3 MG/DL (0.2-1.0) Aspartate Amino Transf (AST/SGOT) 49 U/L (15-37) H Alanine Aminotransferase (ALT/SGPT) 32 U/L (12-78) Alkaline Phosphatase 89 U/L (46-116) Pro-B-Type Natriuretic Peptide 7137 pg/mL (0-125) H Total Protein 6.6 G/DL (6.4-8.2) Albumin 1.8 G/DL (3.4-5.0) L Globulin 4.8 g/dL Albumin/Globulin Ratio 0.4 (1.0-2.7) L Plan Problems: (1) Dehydration (2) Anemia (3) UTI (urinary tract infection) (4) Falls frequently (5) Renal failure (ARF), acute on chronic (6) Encephalopathy due to metabolic factor or toxin (7) CHF (congestive heart failure) (8) Gross hematuria (9) Deep tissue injury Assessment & Plan: Pt presented on admission with multiple pressure injuries which were resolving. 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 Base of injury is purple with maroon borders . Surrounding non-blanching erythema to R and Gluteal cheeks. Scrotum is erythematous. R and L heels are boggy but each area blanchable. Tx.Plan: Apply Moisture Barrier Paste to Sacrum. Cover with Optifoam drsg. Change every 3 days and prn. Apply Moisture Barrier Paste to bilat groin and scrotum with each incontinence care. Apply Cavilon Skin Barrier to both heels. Cover each heel with Optifoam drsg. Change every 7 days and prn. Reposition at least every 2hours or as tolerated. Off-load heels with pillow. APM/MEI Mattress overlay. (10) Malnutrition Assessment & Plan: DAILY ESTIMATED NEEDS: Needs based on Wound, 66.8kg 28-33 kcals/kg 9386-3208 total kcals 1.25-1.5 g protein/kg 84-100 g total protein 25-30 mL/kg 4150-1228 total fluid mLs NUTRITION DIAGNOSIS: Swallowing difficulty r/t dysphagia and ams as evidenced by s/p [employer] eval, poor cognition, pt on liquify puree texture diet w/ HTL, now with improved intake. CURRENT DIET: Liquify puree HTL Regular PO DIET RECOMMENDATIONS: Maintain Regular diet, texture per [employer] ADDITIONAL RECOMMENDATIONS: 1) Ensure Enlive TID w/ meals (350kcal/20g prot per bottle) 2) Maintain calibrated bed scale wts EMR wt: 160# vs Bed scale wt: 147#-> bed now reads 109.8# 3) Consider D5 IVF (vs 1/2 NS running currently)- Na elevated to prevent hypoglycemia given poor/variable PO 4) Wound care: MVI 1 tab QD + Vit C 250mg QD+ Jacob BID 5) Monitor lytes, replete as needed (11) Severe protein-calorie malnutrition Sai Aaron September 22, 2019 18:20
--- NOTE | 2019-09-22 18:45 | NUR ---
NURSE NOTES: Temp now 101.6,tylenol suppository was given at 1621,cooling measures given.patient Iv not working,attempt to restart IV .Will endorse.
--- NOTE | 2019-09-22 19:35 | NUR ---
HAND-OFF: Report given to Idalmis GOULD.
--- NOTE | 2019-09-22 19:47 | NUR ---
NURSE NOTES: Received patient in bed, patient is confused and disoriented, Russian speaking only, on oxygen 3/4 liters via NC, patient has no IV at this time, numerous attempts were made , patient is unable to swallow, MD is aware, ST eval is pending. Call light is within reach, bed is lowered, locked, alarm is on, will continue to monitor for comfort and safety.
[2019-09-22 20:00] VITALS: BP 135/74
[2019-09-22 21:09] LABS: ANION GAP 9 mmol/L (5-15); BLOOD UREA NITROGEN 64 mg/dL (7-18); CALCIUM 9.2 MG/DL (8.5-10.1); CARBON DIOXIDE 28 MMOL/L (21-32); CHLORIDE 119 MMOL/L (98-107); CREATININE 2.5 MG/DL (0.55-1.30); POTASSIUM 3.5 MMOL/L (3.5-5.1); SODIUM 156 MMOL/L (136-145)
[2019-09-23] VITALS: BP 117/74
--- NOTE | 2019-09-23 | Progress Note ---
DATE: 09/22/2019 SUBJECTIVE: The patient is stable, awaiting placement. No behavior issues noted. Decreased agitation. Stable at baseline. MENTAL STATUS EXAMINATION: Alert, confused. Mood is neutral. Affect is flat. Thought process is concrete. Thought content, no suicidal or homicidal ideations. ASSESSMENT: Dementia with behavior disturbance. PLAN: 1. Continue Depakote. 2. Discussed with the nurse. Loco Luu M.D. DR: Ingrid JOB#: [id number] CC:
[2019-09-23 04:00] VITALS: BP 109/76
--- NOTE | 2019-09-23 05:00 | Progress Note ---
DATE: 09/22/2019 SUBJECTIVE: The patient remains increasingly febrile to 102.1 this afternoon, blood pressure 124/71, heart rate 100, and respiratory rate 23. The patient is saturating adequately on room air. No complaints of chest pain. Still with poor oral intake. OBJECTIVE: LUNGS: Bilateral breath sounds. Rhonchi. HEART: Irregularly irregular rhythm. Normal S1, S2. No change in murmur. ABDOMEN: Soft. EXTREMITIES: No edema. LABORATORY DATA: White count 15.9, hemoglobin 8.9. Sodium 156, potassium 3.5, bicarb 28, BUN 64, creatinine 3.5. IMPRESSION: 1. Dehydration. 2. Hyponatremia. 3. Hyperchloremia. 4. Acute kidney injury. 5. Healthcare acquired pneumonia. 6. Sepsis. 7. Decreased blood pressure trend. 8. COVID-19 pneumonia. 9. Valvular cardiomyopathy. PLAN: 1. Hold parameters for antihypertensives. 2. Full anticoagulation for cardioembolic prophylaxis if no signs of bleeding. 3. Antimicrobials. 4. Respiratory hygiene. 5. Hypotonic IV fluid hydration. 6. Remains serious with guarded prognosis. Gamaliel Salas M.D. DR: MAXIMINO JOB#: [id number] CC:
--- NOTE | 2019-09-23 05:00 | Progress Note ---
DATE: 09/21/2019 CARDIOLOGY PROGRESS NOTE SUBJECTIVE: The patient was seen and evaluated. Case was discussed with Dr. Jade and Dr. Echavarria. The patient has not improved. In fact, he was increasingly short of breath last evening with hypoxia noted and increasing oxygen required. PHYSICAL EXAMINATION: VITALS SIGNS: Blood pressure 141/64, heart rate 87, respiratory rate 21, and temperature max 100.6. LUNGS: Bilateral breath sounds with rhonchi. CARDIAC: Irregularly irregular rhythm. Normal S1, S2. No murmur. ABDOMEN: Soft. EXTREMITIES: No edema. LABORATORY DATA: Chest x-ray today revealed worsening consolidation in the left side retrocardiac region. IMPRESSION: 1. Healthcare-acquired pneumonia. 2. COVID-19 pneumonia. 3. Respiratory insufficiency. 4. Hypoxia. 5. Atrial fibrillation. 6. Valvular cardiomyopathy. 7. Pulmonary hypertension. 8. Mitral regurgitation. PLAN: 1. Respiratory hygiene. 2. Oxygen support. 3. Antimicrobials per Infectious Disease student union consultant. 4. Continue and maintain current cardiovascular regimen. 5. Titrate anti-failure and antihypertensive drugs based on clinical parameters. 6. Continue full anticoagulation for cardioembolic prophylaxis. Gamaliel Salas M.D. DR: KELLY JOB#: [id number] CC:
[2019-09-23 05:47] LABS: HEMOGLOBIN 8.9 G/DL (14.2-18.0); MEAN CORPUSCULAR VOLUME 87 FL (80-99); PLATELET COUNT 283 K/UL (150-450); RED BLOOD COUNT 3.12 M/UL (4.70-6.10); RED CELL DISTRIBUTION WIDTH 13.3 % (11.6-14.8); WHITE BLOOD COUNT 19.6 K/UL (4.8-10.8)
[2019-09-23] MEDS: HydrALAZINE 50mg tab ORAL SCH ×3 (05:53→21:11)
[2019-09-23] MEDS: Zosyn 3.375gm in NS 110ml IVPB SCH ×2 (05:54→17:37)
[2019-09-23 06:32] LABS: ALANINE AMINOTRANSFERASE 42 U/L (12-78); ALBUMIN 1.6 G/DL (3.4-5.0); ALBUMIN/GLOBULIN RATIO 0.3 (1.0-2.7); ALKALINE PHOSPHATASE 90 U/L (46-116); ANION GAP 14 mmol/L (5-15); ASPARTATE AMINO TRANSFERASE 66 U/L (15-37); BILIRUBIN,TOTAL 0.4 MG/DL (0.2-1.0); BLOOD UREA NITROGEN 65 mg/dL (7-18); CARBON DIOXIDE 26 MMOL/L (21-32); CHLORIDE 121 MMOL/L (98-107); CREATININE 2.6 MG/DL (0.55-1.30); PHOSPHORUS 2.7 MG/DL (2.5-4.9); POTASSIUM 3.2 MMOL/L (3.5-5.1); SODIUM 160 MMOL/L (136-145)
--- NOTE | 2019-09-23 07:30 | NUR ---
NURSE NOTES: Received patient in bed, patient is non responsive,confused and disoriented, on oxygen 4 liters via NC,IVF infusing well,call light is within reach, bed is lowered, locked, alarm is on, will continue to monitor for comfort and safety chas restrepo
[2019-09-23] MEDS: Enoxaparin 30mg Inj SUBQ SCH (09:00)
[2019-09-23] MEDS: Ascorbic Acid 500mg tab ORAL SCH (09:00)
[2019-09-23 09:20] VITALS: BP 117/67
--- NOTE | 2019-09-23 09:30 | NUR ---
nurse notes tried to give all medications,aspiration precaution observed, patient took some of his medication, some meds just stay in his mouth , patient pockecting his med thru his mouth, patient on swallow marsha restrepo rnl
[2019-09-23] MEDS: Imdur 30mg tab ORAL SCH (09:33)
[2019-09-23] MEDS: Tamsulosin 0.4mg cap ORAL SCH ×2 (09:33→17:38)
[2019-09-23] MEDS: Valproic Acid 250mg/5ml Liquid NG SCH ×2 (09:33→21:19)
[2019-09-23] MEDS: Acetaminophen 650 MG SUPP RECTAL PRN ×3 (09:34→16:58)
--- NOTE | 2019-09-23 10:54 | Infectious Diseases Prog Note ---
Assessment/Plan Assessment/Plan antibiotics : zosyn A 1. COVID 19 pneumonia test + on 4.14.20, 4.16.20, 4.22.20, 4.27.20, 5.3.20 test negative 4.29.20 2. morganella, streptococcus urinary tract infection 3. Renal failure. 4. hypertension 5. cardiomyopathy 6. leucocytosis increased 7. fever P 1. continue zosyn 2. will follow up cultures 3. Continue isolation Subjective ROS Limited/Unobtainable: Yes Allergies: Coded Allergies: No Known Allergies (Unverified , 06/05/19) Objective Vital Signs Last 24 Hour Vital Signs Date Time Temp Pulse Resp B/P (MAP) Pulse Ox O2 Delivery O2 Flow Rate FiO2 09/23/19 10:04 99.9 09/23/19 09:33 117/67 09/23/19 09:33 102 117/67 09/23/19 09:20 102.6 102 44 117/67 (84) 97 09/23/19 09:00 Room Air 09/23/19 04:00 98.6 100 20 109/76 (87) 97 09/23/19 00:00 98.9 100 20 117/74 (88) 95 09/22/19 22:50 Room Air 09/22/19 21:14 133/78 09/22/19 20:00 98.6 100 18 135/74 (94) 95 09/22/19 16:00 102.1 100 23 124/71 (88) 96 09/22/19 12:00 101.0 94 24 98/50 (66) 96 Height (Feet): 5 Height (Inches): 6.00 Weight (Pounds): 91 Microbiology Date/Time Source Procedure Growth Status 09/20/19 18:31 Urine,Clean Catch Urine Culture - Preliminary Morganella Morg Spp Morganii Strep Species, Gamma-Hemolytic Mixed Urogenital Contaminants Resulted Laboratory Tests Test 09/22/19 20:36 09/23/19 04:30 Sodium Level 156 MMOL/L (136-145) H 160 MMOL/L (136-145) H Potassium Level 3.5 MMOL/L (3.5-5.1) 3.2 MMOL/L (3.5-5.1) L Chloride Level 119 MMOL/L (98-107) H 121 MMOL/L (98-107) H Carbon Dioxide Level 28 MMOL/L (21-32) 26 MMOL/L (21-32) Anion Gap 9 mmol/L (5-15) 14 mmol/L (5-15) Blood Urea Nitrogen 64 mg/dL (7-18) H 65 mg/dL (7-18) H Creatinine 2.5 MG/DL (0.55-1.30) H 2.6 MG/DL (0.55-1.30) H Estimat Glomerular Filtration Rate 24.7 mL/min (>60) 23.6 mL/min (>60) Glucose Level 97 MG/DL (74-106) 72 MG/DL (74-106) L Calcium Level 9.2 MG/DL (8.5-10.1) 9.0 MG/DL (8.5-10.1) White Blood Count 19.6 K/UL (4.8-10.8) H Red Blood Count 3.12 M/UL (4.70-6.10) L Hemoglobin 8.9 G/DL (14.2-18.0) L Hematocrit 27.0 % (42.0-52.0) L Mean Corpuscular Volume 87 FL (80-99) Mean Corpuscular Hemoglobin 28.5 PG (27.0-31.0) Mean Corpuscular Hemoglobin Concent 32.9 G/DL (32.0-36.0) Red Cell Distribution Width 13.3 % (11.6-14.8) Platelet Count 283 K/UL (150-450) Mean Platelet Volume 5.8 FL (6.5-10.1) L Neutrophils (%) (Auto) % (45.0-75.0) Lymphocytes (%) (Auto) % (20.0-45.0) Monocytes (%) (Auto) % (1.0-10.0) Eosinophils (%) (Auto) % (0.0-3.0) Basophils (%) (Auto) % (0.0-2.0) Differential Total Cells Counted 100 Neutrophils % (Manual) 95 % (45-75) H Lymphocytes % (Manual) 3 % (20-45) L Monocytes % (Manual) 2 % (1-10) Eosinophils % (Manual) 0 % (0-3) Basophils % (Manual) 0 % (0-2) Band Neutrophils 0 % (0-8) Platelet Estimate Adequate Platelet Morphology Normal Hypochromasia 2+ Anisocytosis 1+ Uric Acid 8.6 MG/DL (2.6-7.2) H Phosphorus Level 2.7 MG/DL (2.5-4.9) Magnesium Level 3.2 MG/DL (1.8-2.4) H Total Bilirubin 0.4 MG/DL (0.2-1.0) Aspartate Amino Transf (AST/SGOT) 66 U/L (15-37) H Alanine Aminotransferase (ALT/SGPT) 42 U/L (12-78) Alkaline Phosphatase 90 U/L (46-116) C-Reactive Protein, Quantitative Pending Pro-B-Type Natriuretic Peptide 45482 pg/mL (0-125) H Total Protein 6.7 G/DL (6.4-8.2) Albumin 1.6 G/DL (3.4-5.0) L Globulin 5.1 g/dL Albumin/Globulin Ratio 0.3 (1.0-2.7) L Current Medications Medications (Trade) Dose Ordered Sig/Kristine Route PRN Reason Start Time Stop Time Status Last Admin Dose Admin Acetaminophen (Tylenol) 650 mg Q4H PRN ORAL Fever 09/09/19 22:30 10/09/19 22:29 09/22/19 05:16 Acetaminophen (Tylenol) 650 mg Q4H PRN RECTAL Mild Pain (Pain Scale 1-3) 09/22/19 09:45 10/22/19 09:44 09/23/19 09:34 Amlodipine Besylate (Norvasc) 10 mg DAILY ORAL 09/10/19 09:00 09/28/19 08:59 09/23/19 09:33 Ascorbic Acid (Vitamin C) 250 mg DAILY ORAL 09/10/19 09:00 10/10/19 08:59 09/21/19 10:07 Bisacodyl (Dulcolax) 10 mg DAILYPRN PRN RECTAL Constipation 09/18/19 17:00 12/17/19 16:59 Calcitonin [place] (Miacalcin) 1 sprays DAILY NASAL 09/12/19 13:00 12/11/19 12:59 09/23/19 09:33 Dextrose 1,000 ml @ 100 mls/hr Q10H IV 09/23/19 09:30 10/23/19 09:29 09/23/19 09:49 Enoxaparin Sodium (Lovenox) 30 mg DAILY SUBQ 09/22/19 11:00 12/21/19 10:59 09/23/19 09:00 Famotidine (Pepcid) 20 mg DAILY ORAL 09/10/19 09:00 12/09/19 08:59 09/23/19 09:33 Finasteride (Proscar) 5 mg DAILY ORAL 09/10/19 09:00 11/05/19 15:44 09/21/19 10:05 Hydralazine HCl (Apresoline) 50 mg Q8HR ORAL 09/12/19 22:00 12/11/19 21:59 09/22/19 21:14 Isosorbide Mononitrate (Imdur) 60 mg DAILY ORAL 09/21/19 09:00 10/21/19 08:59 09/23/19 09:33 Multivitamins (Multivitamins) 1 tab DAILY ORAL 09/10/19 09:00 10/10/19 08:59 09/23/19 09:34 Piperacillin Sod/ Tazobactam Sod 3.375 gm/Sodium Chloride 110 ml @ 27.5 mls/hr Q12H IVPB 09/21/19 18:00 09/28/19 17:59 09/23/19 05:54 Potassium Chloride 100 ml @ 100 mls/hr Q1HR IVPB 09/23/19 10:00 09/23/19 11:59 09/23/19 10:46 Tamsulosin HCl (Flomax) 0.4 mg BID ORAL 09/12/19 12:00 10/06/19 20:59 09/23/19 09:33 Valproic Acid (Depakene) 250 mg EVERY 12 HOURS NG 09/09/19 21:00 10/22/19 20:59 09/23/19 09:33 Gonzalez Stephens MD September 23, 2019 10:54
--- NOTE | 2019-09-23 11:06 | NUR ---
BEDSIDE SWALLOW EVALUATION (#2) (Please see care activity section for complete report) REFERRED FOR SWALLOWING EVALUATION BY DR HUDSON DYSPHAGIA RISK FACTORS FOR THIS 83 Y.O.CITIZEN [place] M[place]: ACUTE ISSUES: S/P FALL MULTIPLE TRAUMA, AMS (ENCEPHALOPATHY CONFUSED), HAS ABRASION TOP OF SCALP HEAD INJURY CT HEAD NEGATIVE BUT OLD CVA, DEHYDRATION, UTI, Acute on Chronic RENAL FAILURE, ANEMIA, Encephalopathy due to metabolic factor or toxin, Gross hematuria. 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 ALBUTEROL (SOB). PROTONIX (GERD). POLST: NO TUBE FEEDINGS AND DNR PER PATIENT. PER HIS COMMUNITY HEALTH ADVOCATE FRIEND, COMMUNITY HEALTH ADVOCATE CANNOT MAKE DECISIONS FOR HIM. HE SAID HIS PARTNER LATE LAST YEAR AND HE HAS BEEN AGITATED FOR 3 MONTHS (TAKING DIFFERENT PSYCH MEDS).Pt being seen by PSYCHIATRIST. PLOF: Previously lived at [facility] and consumed regular texture diet and thin liquids w/ no swallowing difficulties per carbon coater machine operator. VITALS on 4 L/min via nasal cannula HR: 102 bpmRR: 44 bpmTemp: 102.6SP02: 97% Pt w/ ongoing poor PO intake of current diet Liquified Puree ([place]-Like Soup) with [place] Thick Liquids. 20B: 50%L: 50% D: 50% 20B: 50%L: 50% D: 0% 09/22/19B: 10%L: 10% D: 0% RN reports when attempting to administer Pt meds crushed w/ apple sauce in AM, Pt's swallow appeared incomplete and poor, w/ remaining meds+apple sauce mixture remaining throughout oral cavity. Speech/Language: Pt did not respond to simple yes/no questions, unable to state name. Pt did moan intermittently and observed producing canonical babbling of "Momma." Pt is unable to independently communicate wants and needs and is 100% dependent on caregivers for communication. Pt has intact dentition, however, oral hygiene is severely poor and requires oral care TID. Pt unable to complete oral motor ROM/coordination tasks, blade of tongue appears dry and cracked. WOODWORKING MACHINE OFFBEARER removed moderate amount of apple sauce + medications from Pt's oral cavity, provided Pt oral hygiene. INITIAL IMPRESSIONS: Moderate to severe oral and pharyngeal phase dysphagia compounded by poor alertness (given Ativan for agitation) WITH DECREASED LINGUAL AND LABIAL ROM/STRENGTH, PT W/ NO ATTEMPT AT A-P TRANSIT TO BOT, NO ATTEMPT AT PHARYNGEAL SWALLOW PER PALPATIONS W/ ALL OF MEDS+APPLE SAUCE REMAINING THROUGHOUT ORAL CAVITY OR FALLING OUT OF MOUTH DUE TO POOR (LEFT SIDED) LABIAL SEAL/POSITIONING. HIGH RISK FOR SILENT ASPIRATION GIVEN H/O CVA, DEMENTIA, AND HIGH RESPIRATORY RATE (44) HIGH RISK FOR POOR PO INTAKE DUE TO REDUCED ALERTNESS AND SIGNIFICANT BEHAVIOR DEFICITS. PT GIVEN THIN LIQUIDS VIA TEASPOON W/ ALL OF TRIAL FALLING ANTERIORLY OUT OF PT'S MOUTH. GIVEN NECTAR THICK LIQUIDS VIA TEASPOON, NO ATTEMPT AT A-P TRANSIT, NO LARYNGEAL ELEVATION PER PALPATIONS. GIVEN PT'S POLST STATES NO ALTERNATIVE NUTRITION/HYDRATION, PT REQUIRES MEANS OF NUTRITION/HYDRATION AND MEDICATION MANAGEMENT. WOODWORKING MACHINE OFFBEARER EDUCATED DR HUDSON ON THE RESULTS OF THE EVALUATION, IMPRESSIONS, AND RECOMMENDATIONS. DR. HUDSON STATES PLAN TO CALL PT'S CONSERVATOR/NEXT OF KIN TO DETERMINE GOALS OF CARE, DESPITE PT'S SWALLOW FUNCTION BEING MODERATELY TO SEVERELY IMPAIRED, FOR ORAL COMFORT AND ORAL GRATIFICATION, PT WOULD BENEFIT FROM STRICT AND THOROUGH ORAL CARE W/ SUCTION AND TOOTHBRUSH (FOR TONGUE) AND TEASPOONS OF THIN LIQUIDS VIA CAREFUL HANDFEEDING UPON PT'S REQUEST. RECOMMENDATIONS: 1. Pt is not safe for Po intake of nutrition/hydration or for meds, defer to conservator/MD for goals of care. 2. STRICT ORAL CARE W/ SUCTION AND TOOTHBRUSH (FOR TONGUE) TID 3. WOODWORKING MACHINE OFFBEARER PLANS TO F/U W/ PT FOR DYSPHAGIA MANAGEMENT, CAREGIVER AND PT TRAINING, AND EDUCATION ON STRATEGIES TO OPTIMIZE PT'S SAFETY W/ PO INTAKE (IF CONTINUES) EDUCATED AND TRAINED RN IN POSTED ORAL CARE AND ASPIRATION PRECAUTIONS.
--- NOTE | 2019-09-23 11:36 | NUR ---
RD ASSESSMENT & RECOMMENDATIONS SEE CARE ACTIVITY FOR COMPLETE ASSESSMENT DAILY ESTIMATED NEEDS: Needs based on Wound, 66.8kg 28-33 kcals/kg 0241-0113 total kcals 1.25-1.5 g protein/kg 84-100 g total protein 25-30 mL/kg 6147-7326 total fluid mLs NUTRITION DIAGNOSIS: Swallowing difficulty r/t dysphagia and ams as evidenced by s/p RAILROAD CONSTRUCTION DIRECTOR eval, poor cognition, pt on liquify puree texture diet w/ HTL, now with poor/variable intake, high aspiration risk. CURRENT DIET: Liquify puree HTL Regular PO DIET RECOMMENDATIONS: Maintain Regular diet, texture per RAILROAD CONSTRUCTION DIRECTOR ENTERAL NUTRITION RECOMMENDATIONS: CONSULT RD IF NON ORAL FEEDS ARE PART OF PLAN OF CARE ADDITIONAL RECOMMENDATIONS: 1) Ensure Enlive TID w/ meals (350kcal/20g prot per bottle) 2) RECALIBRATE BEDSCALE WT: BIG DISCREPANCY IN WTS initial EMR wt: 160# vs Bed scale wt: 147#-> EMR wt now reads 88.8# 3) CONSIDER APPETITE STIMULANT- prolonged poor PO; NGT feeds if part POC 4) Rec daily bowel regimen: now w/ bm 09/18 4) Wound care: MVI 1 tab QD + Vit C 250mg QD+ Jacob BID 5) Monitor lytes, hydration status, replete as needed-> on replacement + D5
--- NOTE | 2019-09-23 11:38 | Pulmonology Progress Note ---
Subjective ROS Limited/Unobtainable: Yes Interval Events: None new reported Constitutional: Reports: fever, other HEENT: Repors: no symptoms Respiratory: Reports: no symptoms Cardiovascular: Reports: no symptoms Gastrointestinal/Abdominal: Denies: nausea, vomiting, diarrhea Genitourinary: Reports: no symptoms; Denies: dysuria, hematuria, frequency, nocturia, urgency, other Neurologic: Reports: no symptoms Musculoskeletal: Denies: no symptoms, pain, swelling, stiffness, other Allergies: Coded Allergies: No Known Allergies (Unverified , 06/05/19) All Systems: reviewed and negative except above Objective Last 24 Hour Vital Signs Date Time Temp Pulse Resp B/P (MAP) Pulse Ox O2 Delivery O2 Flow Rate FiO2 09/23/19 10:04 99.9 09/23/19 09:33 117/67 09/23/19 09:33 102 117/67 09/23/19 09:20 102.6 102 44 117/67 (84) 97 09/23/19 09:00 Room Air 09/23/19 04:00 98.6 100 20 109/76 (87) 97 09/23/19 00:00 98.9 100 20 117/74 (88) 95 09/22/19 22:50 Room Air 09/22/19 21:14 133/78 09/22/19 20:00 98.6 100 18 135/74 (94) 95 09/22/19 16:00 102.1 100 23 124/71 (88) 96 09/22/19 12:00 101.0 94 24 98/50 (66) 96 Intake and Output 09/22/19 09/23/19 19:00 07:00 Intake Total 520 ml Balance 520 ml Intake Oral 120 ml IV Total 400 ml # Voids 2 General Appearance: cachetic HEENT: mucous membranes moist Respiratory/Chest: chest wall non-tender, lungs clear Cardiovascular: normal peripheral pulses Abdomen: soft, non tender Extremities: no edema Neurologic/Psychiatric: aphasia Microbiology Date/Time Source Procedure Growth Status 09/20/19 18:31 Urine,Clean Catch Urine Culture - Preliminary Morganella Morg Spp Morganii Strep Species, Gamma-Hemolytic Mixed Urogenital Contaminants Resulted Laboratory Tests 09/22/19 20:36: Sodium Level 156H, Potassium Level 3.5, Chloride Level 119H, Carbon Dioxide Level 28, Anion Gap 9, Blood Urea Nitrogen 64H, Creatinine 2.5H, Estimat Glomerular Filtration Rate 24.7, Glucose Level 97, Calcium Level 9.2 09/23/19 04:30: Sodium Level 160H, Potassium Level 3.2L, Chloride Level 121H, Carbon Dioxide Level 26, Anion Gap 14, Blood Urea Nitrogen 65H, Creatinine 2.6H, Estimat Glomerular Filtration Rate 23.6, Glucose Level 72L, Calcium Level 9.0, White Blood Count 19.6H, Red Blood Count 3.12L, Hemoglobin 8.9L, Hematocrit 27.0L, Mean Corpuscular Volume 87, Mean Corpuscular Hemoglobin 28.5, Mean Corpuscular Hemoglobin Concent 32.9, Red Cell Distribution Width 13.3, Platelet Count 283, Mean Platelet Volume 5.8L, Neutrophils (%) (Auto) , Lymphocytes (%) (Auto) , Monocytes (%) (Auto) , Eosinophils (%) (Auto) , Basophils (%) (Auto) , Differential Total Cells Counted 100, Neutrophils % (Manual) 95H, Lymphocytes % (Manual) 3L, Monocytes % (Manual) 2, Eosinophils % (Manual) 0, Basophils % ( Manual) 0, Band Neutrophils 0, Platelet Estimate Adequate, Platelet Morphology Normal, Hypochromasia 2+, Anisocytosis 1+, Uric Acid 8.6H, Phosphorus Level 2.7 , Magnesium Level 3.2H, Total Bilirubin 0.4, Aspartate Amino Transf (AST/SGOT) 66H, Alanine Aminotransferase (ALT/SGPT) 42, Alkaline Phosphatase 90, C- Reactive Protein, Quantitative [Pending], Pro-B-Type Natriuretic Peptide 29806T , Total Protein 6.7, Albumin 1.6L, Globulin 5.1, Albumin/Globulin Ratio 0.3L Current Medications Medications (Trade) Dose Ordered Sig/Kristine Route PRN Reason Start Time Stop Time Status Last Admin Dose Admin Acetaminophen (Tylenol) 650 mg Q4H PRN ORAL Fever 09/09/19 22:30 10/09/19 22:29 09/22/19 05:16 Acetaminophen (Tylenol) 650 mg Q4H PRN RECTAL Mild Pain (Pain Scale 1-3) 09/22/19 09:45 10/22/19 09:44 09/23/19 09:34 Amlodipine Besylate (Norvasc) 10 mg DAILY ORAL 09/10/19 09:00 09/28/19 08:59 09/23/19 09:33 Ascorbic Acid (Vitamin C) 250 mg DAILY ORAL 09/10/19 09:00 10/10/19 08:59 09/21/19 10:07 Bisacodyl (Dulcolax) 10 mg DAILYPRN PRN RECTAL Constipation 09/18/19 17:00 12/17/19 16:59 Calcitonin [place] (Miacalcin) 1 sprays DAILY NASAL 09/12/19 13:00 12/11/19 12:59 09/23/19 09:33 Dextrose 1,000 ml @ 100 mls/hr Q10H IV 09/23/19 09:30 10/23/19 09:29 09/23/19 09:49 Enoxaparin Sodium (Lovenox) 30 mg DAILY SUBQ 09/22/19 11:00 12/21/19 10:59 09/23/19 09:00 Famotidine (Pepcid) 20 mg DAILY ORAL 09/10/19 09:00 12/09/19 08:59 09/23/19 09:33 Finasteride (Proscar) 5 mg DAILY ORAL 09/10/19 09:00 11/05/19 15:44 09/21/19 10:05 Hydralazine HCl (Apresoline) 50 mg Q8HR ORAL 09/12/19 22:00 12/11/19 21:59 09/22/19 21:14 Isosorbide Mononitrate (Imdur) 60 mg DAILY ORAL 09/21/19 09:00 10/21/19 08:59 09/23/19 09:33 Multivitamins (Multivitamins) 1 tab DAILY ORAL 09/10/19 09:00 10/10/19 08:59 09/23/19 09:34 Piperacillin Sod/ Tazobactam Sod 3.375 gm/Sodium Chloride 110 ml @ 27.5 mls/hr Q12H IVPB 09/21/19 18:00 09/28/19 17:59 09/23/19 05:54 Potassium Chloride 100 ml @ 100 mls/hr Q1HR IVPB 09/23/19 10:00 09/23/19 11:59 09/23/19 10:46 Tamsulosin HCl (Flomax) 0.4 mg BID ORAL 09/12/19 12:00 10/06/19 20:59 09/23/19 09:33 Valproic Acid (Depakene) 250 mg EVERY 12 HOURS NG 09/09/19 21:00 10/22/19 20:59 09/23/19 09:33 Assessment/Plan Assessment/Plan IMPRESSION: 1. Pleural effusions, small bilateral. 2. Atelectasis. 3. Pulmonary edema, questionable. 4. Hypertension. 5. Hyperlipidemia. 6. positive COVID 19 7. UTI DISCUSSION: The patient is saturating well on room air CXR clear I will follow as commercial credit head. No new recommendations Rodrigo Nazario Omar Syed MD September 23, 2019 11:38
[2019-09-23 12:00] VITALS: BP 127/69
--- NOTE | 2019-09-23 12:41 | Nephrology Progress Note ---
Assessment/Plan Problem List: (1) Renal failure (ARF), acute on chronic Assessment: Serum creatinine stabilizing (2) Falls frequently (3) UTI (urinary tract infection) Assessment: and hematuria (4) Anemia (5) Dehydration (6) Encephalopathy due to metabolic factor or toxin (7) Hypercalcemia Assessment Frequent falls Acute renal failure with underlying dehydration Anemia, underlying etiology unclear UTI (urinary tract infection) Toxic metabolic encephalopathy Plan Serum creatinine rising Will start D5W IV fluid Monitor renal parameters and serum sodium Continue per ID Leukocytosis worsening 1 dose of Aredia for hypercalcemia was given before We will monitor calcium and phosphorus Previously Trial of 3% saline 250 cc for hyponatremia raised serum sodium from 129- to 134 Serum creatinine overall stable, it is 1.5 today Watch serum calcium, start calcitonin nasal spray for hypercalcemia Increase hydralazine dose for better blood pressure control Patient now COVID-19 positive Start D5W for hypernatremia as needed P.o. intake variable Oral potassium supplement as needed previously: Increase Flomax to twice daily Correct electrolytes as needed Transfusion as needed 2D echocardiogram ejection fraction 60% Kidney ultrasound pending results Monitor renal parameters Avoid nephrotoxics Antibiotics for UTI Continue per consultants Subjective ROS Limited/Unobtainable: No Constitutional: Reports: malaise, weakness Objective Objective Last 24 Hour Vital Signs Date Time Temp Pulse Resp B/P (MAP) Pulse Ox O2 Delivery O2 Flow Rate FiO2 09/23/19 12:00 101.8 102 40 127/69 (88) 97 09/23/19 10:04 99.9 09/23/19 09:33 117/67 09/23/19 09:33 102 117/67 09/23/19 09:20 102.6 102 44 117/67 (84) 97 09/23/19 09:00 Room Air 09/23/19 04:00 98.6 100 20 109/76 (87) 97 09/23/19 00:00 98.9 100 20 117/74 (88) 95 09/22/19 22:50 Room Air 09/22/19 21:14 133/78 09/22/19 20:00 98.6 100 18 135/74 (94) 95 09/22/19 16:00 102.1 100 23 124/71 (88) 96 Intake and Output 09/22/19 09/23/19 19:00 07:00 Intake Total 520 ml Balance 520 ml Intake Oral 120 ml IV Total 400 ml # Voids 2 Laboratory Tests 09/22/19 20:36: Sodium Level 156H, Potassium Level 3.5, Chloride Level 119H, Carbon Dioxide Level 28, Anion Gap 9, Blood Urea Nitrogen 64H, Creatinine 2.5H, Estimat Glomerular Filtration Rate 24.7, Glucose Level 97, Calcium Level 9.2 09/23/19 04:30: Sodium Level 160H, Potassium Level 3.2L, Chloride Level 121H, Carbon Dioxide Level 26, Anion Gap 14, Blood Urea Nitrogen 65H, Creatinine 2.6H, Estimat Glomerular Filtration Rate 23.6, Glucose Level 72L, Calcium Level 9.0, White Blood Count 19.6H, Red Blood Count 3.12L, Hemoglobin 8.9L, Hematocrit 27.0L, Mean Corpuscular Volume 87, Mean Corpuscular Hemoglobin 28.5, Mean Corpuscular Hemoglobin Concent 32.9, Red Cell Distribution Width 13.3, Platelet Count 283, Mean Platelet Volume 5.8L, Neutrophils (%) (Auto) , Lymphocytes (%) (Auto) , Monocytes (%) (Auto) , Eosinophils (%) (Auto) , Basophils (%) (Auto) , Differential Total Cells Counted 100, Neutrophils % (Manual) 95H, Lymphocytes % (Manual) 3L, Monocytes % (Manual) 2, Eosinophils % (Manual) 0, Basophils % ( Manual) 0, Band Neutrophils 0, Platelet Estimate Adequate, Platelet Morphology Normal, Hypochromasia 2+, Anisocytosis 1+, Uric Acid 8.6H, Phosphorus Level 2.7 , Magnesium Level 3.2H, Total Bilirubin 0.4, Aspartate Amino Transf (AST/SGOT) 66H, Alanine Aminotransferase (ALT/SGPT) 42, Alkaline Phosphatase 90, C- Reactive Protein, Quantitative 45.0H, Pro-B-Type Natriuretic Peptide 42429C, Total Protein 6.7, Albumin 1.6L, Globulin 5.1, Albumin/Globulin Ratio 0.3L Height (Feet): 5 Height (Inches): 6.00 Weight (Pounds): 91 General Appearance: no apparent distress, lethargic, other - Febrile Cardiovascular: tachycardia Respiratory/Chest: decreased breath sounds Abdomen: distended Objective No change Juan Jade MD September 23, 2019 12:41
--- NOTE | 2019-09-23 13:06 | NUR ---
CASE MANAGEMENT:REVIEW 09/23/19 SI: UTI . COVID ++++-+ . SMALL BILATERAL PLEURAL EFFUSION . ATELECTASIS . PNEUMONIA 102.1 100 23 124/71 96% ON RA URIN CX (+) TROP (+) 5/7= 0.093 WBC 19.6 H/H 8.9/27 NA+ 160 K+ 3.2 CL- 112 BUN 65 CREAT 2.6 BG 72 URIC ACID 8.6 BNP 26085 ALBUMIN 1.6 C-REC PROTEIN 45.0 IS: IV KCL X1 IV D5 BOLUS X1 IV ZOSYN BID IV D5@100ML/HR LOVENOX SQ QD IMDUR PO QD LEXAPRO PO QD DEPAKENE NG BID ELIQUIS PO BID FLOMAX PO BID NORVASC PO QD IMDUR PO QD HYDRALAZINE PO TID MIACALCIN NASAL QD PROSCAR PO QD PROTONIX PO QD TYLENOL SC Q4HR/PRN \: 4E MED SURG STATUS DCP: [facility] SNF PLAN: CONTROL FEVERS START ON IV ABX HYDRATE WBC INCREASE
--- NOTE | 2019-09-23 13:16 | NUR ---
CASE MANAGEMENT:REVIEW 09/22/19 SI: UTI . COVID ++++-+ . SMALL BILATERAL PLEURAL EFFUSION . ATELECTASIS . PNEUMONIA 102.1 100 23 124/71 96% ON RA URIN CX (+) TROP (+) 0.093 WBC 15.9 H/H 8.9/26.8 NA+ 157 CL- 119 BUN/CRET 64/2.5 BNP 7137 ALBUMIN 1.8 IS: IV ZOSYN BID IV D5@100ML/HR LOVENOX SQ QD IMDUR PO QD LEXAPRO PO QD DEPAKENE NG BID ELIQUIS PO BID FLOMAX PO BID NORVASC PO QD IMDUR PO QD HYDRALAZINE PO TID MIACALCIN NASAL QD PROSCAR PO QD PROTONIX PO QD TYLENOL [place] Q4HR/PRN \: 4E MED SURG STATUS DCP: [facility] PLAN: CONTROL FEVERS CONT IV ABX HYDRATE WBC INCREASE CASE MANAGEMENT:REVIEW 09/23/19 SI: UTI . COVID ++++-+ . SMALL BILATERAL PLEURAL EFFUSION . ATELECTASIS . PNEUMONIA 102.6 102 44 117/67 97% ON RA WBC 19.6 H/H 8.9/27 NA+ 160 K+ 3.2 CL- 112 BUN 65 CREAT 2.6 BG 72 URIC ACID 8.6 BNP 22104 ALBUMIN 1.6 C-REC PROTEIN 45.0 IS: IV KCL X1 IV D5 BOLUS X1 IV ZOSYN BID IV D5@100ML/HR LOVENOX SQ QD IMDUR PO QD LEXAPRO PO QD DEPAKENE NG BID ELIQUIS PO BID FLOMAX PO BID NORVASC PO QD IMDUR PO QD HYDRALAZINE PO TID MIACALCIN NASAL QD PROSCAR PO QD PROTONIX PO QD TYLENOL [place] Q4HR/PRN \: 4E MED SURG STATUS DCP: [facility] PLAN: CONTROL FEVERS CONT IV ABX HYDRATE WBC INCREASE
--- NOTE | 2019-09-23 13:17 | Urology Progress Note ---
Assessment/Plan Status: stable, progressing, not improved Assessment/Plan: 1. Gross hematuria hx, presumably secondary to Doshi trauma, resolved. 2. BPH. 3. Urinary retention. 4. Neurogenic bladder. 5. Pyuria?UTI/colonized. 6. Proteinuria. 7. Renal insufficiency, which appears to be acute on chronic. 8. Rule out urethral stricture. monitor clinically doshi out, voiding/incontinent on proscar and flomax back on abx restraints PRN cysto at some point monitor PVR and reinsert doshi PRN renal imaging? COVID (+) hx Eliquis resumed monitor for bleeding f/u on urine cx Subjective Allergies: Coded Allergies: No Known Allergies (Unverified , 06/05/19) Subjective all noted, confused, doshi out, incontinent some resp diff reported Objective Last 24 Hour Vital Signs Date Time Temp Pulse Resp B/P (MAP) Pulse Ox O2 Delivery O2 Flow Rate FiO2 09/23/19 12:00 101.8 102 40 127/69 (88) 97 09/23/19 10:04 99.9 09/23/19 09:33 117/67 09/23/19 09:33 102 117/67 09/23/19 09:20 102.6 102 44 117/67 (84) 97 09/23/19 09:00 Room Air 09/23/19 04:00 98.6 100 20 109/76 (87) 97 09/23/19 00:00 98.9 100 20 117/74 (88) 95 09/22/19 22:50 Room Air 09/22/19 21:14 133/78 09/22/19 20:00 98.6 100 18 135/74 (94) 95 09/22/19 16:00 102.1 100 23 124/71 (88) 96 Intake and Output 09/22/19 09/23/19 19:00 07:00 Intake Total 520 ml Balance 520 ml Intake Oral 120 ml IV Total 400 ml # Voids 2 Microbiology Date/Time Source Procedure Growth Status 09/18/19 16:15 Nasopharynx Coronavirus COVID-19 PCR (JOSÉ LUIS) - Final Complete 09/20/19 18:31 Urine,Clean Catch Urine Culture - Preliminary Morganella Morg Spp Morganii Strep Species, Gamma-Hemolytic Mixed Urogenital Contaminants Resulted 08/06/19 04:45 Rectum VRE Culture - Final NO VANCOMYCIN RESISTANT ENTEROCOCCUS ... Complete Current Medications Medications (Trade) Dose Ordered Sig/Kristine Route PRN Reason Start Time Stop Time Status Last Admin Dose Admin Acetaminophen (Tylenol) 650 mg Q4H PRN ORAL Fever 09/09/19 22:30 10/09/19 22:29 09/22/19 05:16 Acetaminophen (Tylenol) 650 mg Q4H PRN RECTAL Mild Pain (Pain Scale 1-3) 09/22/19 09:45 10/22/19 09:44 09/23/19 12:45 Amlodipine Besylate (Norvasc) 10 mg DAILY ORAL 09/10/19 09:00 09/28/19 08:59 09/23/19 09:33 Ascorbic Acid (Vitamin C) 250 mg DAILY ORAL 09/10/19 09:00 10/10/19 08:59 09/21/19 10:07 Bisacodyl (Dulcolax) 10 mg DAILYPRN PRN RECTAL Constipation 09/18/19 17:00 12/17/19 16:59 Calcitonin Dana (Miacalcin) 1 sprays DAILY NASAL 09/12/19 13:00 12/11/19 12:59 09/23/19 09:33 Dextrose 1,000 ml @ 100 mls/hr Q10H IV 09/23/19 09:30 10/23/19 09:29 09/23/19 09:49 Enoxaparin Sodium (Lovenox) 30 mg DAILY SUBQ 09/22/19 11:00 12/21/19 10:59 09/23/19 09:00 Famotidine (Pepcid) 20 mg DAILY ORAL 09/10/19 09:00 12/09/19 08:59 09/23/19 09:33 Finasteride (Proscar) 5 mg DAILY ORAL 09/10/19 09:00 11/05/19 15:44 09/21/19 10:05 Hydralazine HCl (Apresoline) 50 mg Q8HR ORAL 09/12/19 22:00 12/11/19 21:59 09/22/19 21:14 Isosorbide Mononitrate (Imdur) 60 mg DAILY ORAL 09/21/19 09:00 10/21/19 08:59 09/23/19 09:33 Multivitamins (Multivitamins) 1 tab DAILY ORAL 09/10/19 09:00 10/10/19 08:59 09/23/19 09:34 Piperacillin Sod/ Tazobactam Sod 3.375 gm/Sodium Chloride 110 ml @ 27.5 mls/hr Q12H IVPB 09/21/19 18:00 09/28/19 17:59 09/23/19 05:54 Tamsulosin HCl (Flomax) 0.4 mg BID ORAL 09/12/19 12:00 10/06/19 20:59 09/23/19 09:33 Valproic Acid (Depakene) 250 mg EVERY 12 HOURS NG 09/09/19 21:00 10/22/19 20:59 09/23/19 09:33 Laboratory Tests 09/22/19 20:36: Sodium Level 156H, Potassium Level 3.5, Chloride Level 119H, Carbon Dioxide Level 28, Anion Gap 9, Blood Urea Nitrogen 64H, Creatinine 2.5H, Estimat Glomerular Filtration Rate 24.7, Glucose Level 97, Calcium Level 9.2 09/23/19 04:30: Sodium Level 160H, Potassium Level 3.2L, Chloride Level 121H, Carbon Dioxide Level 26, Anion Gap 14, Blood Urea Nitrogen 65H, Creatinine 2.6H, Estimat Glomerular Filtration Rate 23.6, Glucose Level 72L, Calcium Level 9.0, White Blood Count 19.6H, Red Blood Count 3.12L, Hemoglobin 8.9L, Hematocrit 27.0L, Mean Corpuscular Volume 87, Mean Corpuscular Hemoglobin 28.5, Mean Corpuscular Hemoglobin Concent 32.9, Red Cell Distribution Width 13.3, Platelet Count 283, Mean Platelet Volume 5.8L, Neutrophils (%) (Auto) , Lymphocytes (%) (Auto) , Monocytes (%) (Auto) , Eosinophils (%) (Auto) , Basophils (%) (Auto) , Differential Total Cells Counted 100, Neutrophils % (Manual) 95H, Lymphocytes % (Manual) 3L, Monocytes % (Manual) 2, Eosinophils % (Manual) 0, Basophils % ( Manual) 0, Band Neutrophils 0, Platelet Estimate Adequate, Platelet Morphology Normal, Hypochromasia 2+, Anisocytosis 1+, Uric Acid 8.6H, Phosphorus Level 2.7 , Magnesium Level 3.2H, Total Bilirubin 0.4, Aspartate Amino Transf (AST/SGOT) 66H, Alanine Aminotransferase (ALT/SGPT) 42, Alkaline Phosphatase 90, C- Reactive Protein, Quantitative 45.0H, Pro-B-Type Natriuretic Peptide 62545W, Total Protein 6.7, Albumin 1.6L, Globulin 5.1, Albumin/Globulin Ratio 0.3L Height (Feet): 5 Height (Inches): 6.00 Weight (Pounds): 91 Objective exam stable abdomen soft urine grossly yellow Bamshad,Miki Perry MD September 23, 2019 13:17
--- NOTE | 2019-09-23 14:16 | Surgery Progress Note ---
Surgery Progress Note Subjective Additional Comments comfortable no complaints no n/v/f/c labs noted Objective Last 24 Hour Vital Signs Date Time Temp Pulse Resp B/P (MAP) Pulse Ox O2 Delivery O2 Flow Rate FiO2 09/23/19 13:42 127/69 09/23/19 13:15 99.4 09/23/19 12:00 101.8 102 40 127/69 (88) 97 09/23/19 09:33 117/67 09/23/19 09:33 102 117/67 09/23/19 09:20 102.6 102 44 117/67 (84) 97 09/23/19 09:00 Room Air 09/23/19 04:00 98.6 100 20 109/76 (87) 97 09/23/19 00:00 98.9 100 20 117/74 (88) 95 09/22/19 22:50 Room Air 09/22/19 21:14 133/78 09/22/19 20:00 98.6 100 18 135/74 (94) 95 09/22/19 16:00 102.1 100 23 124/71 (88) 96 I&O Intake and Output 09/22/19 09/23/19 19:00 07:00 Intake Total 520 ml Balance 520 ml Intake Oral 120 ml IV Total 400 ml # Voids 2 Dressing: saturated Wound: other Drains: other Cardiovascular: RSR Respiratory: decreased breath sounds Abdomen: soft, non-tender, present bowel sounds Extremities: no cyanosis Laboratory Tests Test 09/22/19 20:36 09/23/19 04:30 Sodium Level 156 MMOL/L (136-145) H 160 MMOL/L (136-145) H Potassium Level 3.5 MMOL/L (3.5-5.1) 3.2 MMOL/L (3.5-5.1) L Chloride Level 119 MMOL/L (98-107) H 121 MMOL/L (98-107) H Carbon Dioxide Level 28 MMOL/L (21-32) 26 MMOL/L (21-32) Anion Gap 9 mmol/L (5-15) 14 mmol/L (5-15) Blood Urea Nitrogen 64 mg/dL (7-18) H 65 mg/dL (7-18) H Creatinine 2.5 MG/DL (0.55-1.30) H 2.6 MG/DL (0.55-1.30) H Estimat Glomerular Filtration Rate 24.7 mL/min (>60) 23.6 mL/min (>60) Glucose Level 97 MG/DL (74-106) 72 MG/DL (74-106) L Calcium Level 9.2 MG/DL (8.5-10.1) 9.0 MG/DL (8.5-10.1) White Blood Count 19.6 K/UL (4.8-10.8) H Red Blood Count 3.12 M/UL (4.70-6.10) L Hemoglobin 8.9 G/DL (14.2-18.0) L Hematocrit 27.0 % (42.0-52.0) L Mean Corpuscular Volume 87 FL (80-99) Mean Corpuscular Hemoglobin 28.5 PG (27.0-31.0) Mean Corpuscular Hemoglobin Concent 32.9 G/DL (32.0-36.0) Red Cell Distribution Width 13.3 % (11.6-14.8) Platelet Count 283 K/UL (150-450) Mean Platelet Volume 5.8 FL (6.5-10.1) L Neutrophils (%) (Auto) % (45.0-75.0) Lymphocytes (%) (Auto) % (20.0-45.0) Monocytes (%) (Auto) % (1.0-10.0) Eosinophils (%) (Auto) % (0.0-3.0) Basophils (%) (Auto) % (0.0-2.0) Differential Total Cells Counted 100 Neutrophils % (Manual) 95 % (45-75) H Lymphocytes % (Manual) 3 % (20-45) L Monocytes % (Manual) 2 % (1-10) Eosinophils % (Manual) 0 % (0-3) Basophils % (Manual) 0 % (0-2) Band Neutrophils 0 % (0-8) Platelet Estimate Adequate Platelet Morphology Normal Hypochromasia 2+ Anisocytosis 1+ Uric Acid 8.6 MG/DL (2.6-7.2) H Phosphorus Level 2.7 MG/DL (2.5-4.9) Magnesium Level 3.2 MG/DL (1.8-2.4) H Total Bilirubin 0.4 MG/DL (0.2-1.0) Aspartate Amino Transf (AST/SGOT) 66 U/L (15-37) H Alanine Aminotransferase (ALT/SGPT) 42 U/L (12-78) Alkaline Phosphatase 90 U/L (46-116) C-Reactive Protein, Quantitative 45.0 mg/dL (0.00-0.90) H Pro-B-Type Natriuretic Peptide 99538 pg/mL (0-125) H Total Protein 6.7 G/DL (6.4-8.2) Albumin 1.6 G/DL (3.4-5.0) L Globulin 5.1 g/dL Albumin/Globulin Ratio 0.3 (1.0-2.7) L Plan Problems: (1) Dehydration (2) Anemia (3) UTI (urinary tract infection) (4) Falls frequently (5) Renal failure (ARF), acute on chronic (6) Encephalopathy due to metabolic factor or toxin (7) CHF (congestive heart failure) (8) Gross hematuria (9) Deep tissue injury Assessment & Plan: Pt presented on admission with multiple pressure injuries which were resolving. 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 Base of injury is purple with maroon borders . Surrounding non-blanching erythema to R and Gluteal cheeks. Scrotum is erythematous. R and L heels are boggy but each area blanchable. Tx.Plan: Apply Moisture Barrier Paste to Sacrum. Cover with Optifoam drsg. Change every 3 days and prn. Apply Moisture Barrier Paste to bilat groin and scrotum with each incontinence care. Apply Cavilon Skin Barrier to both heels. Cover each heel with Optifoam drsg. Change every 7 days and prn. Reposition at least every 2hours or as tolerated. Off-load heels with pillow. APM/MEI Mattress overlay. (10) Malnutrition Assessment & Plan: DAILY ESTIMATED NEEDS: Needs based on Wound, 66.8kg 28-33 kcals/kg 5148-5415 total kcals 1.25-1.5 g protein/kg 84-100 g total protein 25-30 mL/kg 3204-5804 total fluid mLs NUTRITION DIAGNOSIS: Swallowing difficulty r/t dysphagia and ams as evidenced by s/p QUALITY ASSURANCE MONITOR CHASSIS eval, poor cognition, pt on liquify puree texture diet w/ HTL, now with poor/variable intake, high aspiration risk. CURRENT DIET: Liquify puree HTL Regular PO DIET RECOMMENDATIONS: Maintain Regular diet, texture per QUALITY ASSURANCE MONITOR CHASSIS ENTERAL NUTRITION RECOMMENDATIONS: CONSULT RD IF NON ORAL FEEDS ARE PART OF PLAN OF CARE ADDITIONAL RECOMMENDATIONS: 1) Ensure Enlive TID w/ meals (350kcal/20g prot per bottle) 2) RECALIBRATE BEDSCALE WT: BIG DISCREPANCY IN WTS initial EMR wt: 160# vs Bed scale wt: 147#-> EMR wt now reads 88.8# 3) CONSIDER APPETITE STIMULANT- prolonged poor PO; NGT feeds if part POC 4) Rec daily bowel regimen: now w/ bm 09/18 4) Wound care: MVI 1 tab QD + Vit C 250mg QD+ Jacob BID 5) Monitor lytes, hydration status, replete as needed-> on replacement + D5 POLST: NO TUBE FEEDINGS AND DNR PER PATIENT. PER HIS PERL DEVELOPER FRIEND, PERL DEVELOPER CANNOT MAKE DECISIONS FOR HIM. HE SAID HIS PARTNER LATE LAST YEAR AND HE HAS BEEN AGITATED FOR 3 MONTHS (TAKING DIFFERENT PSYCH MEDS).Pt being seen by PSYCHIATRIST. PLOF: Previously lived at [facility] and consumed regular texture diet and thin liquids w/ no swallowing difficulties per pantograph ii engraver. VITALS on 4 L/min via nasal cannula HR: 102 bpm RR: 44 bpm Temp: 102.6 SP02: 97% Pt w/ ongoing poor PO intake of current diet Liquified Puree ([place]-Like Soup) with [place] Thick Liquids. 09/20/19 B: 50% L: 50% D: 50% 09/21/19 B: 50% L: 50% D: 0% 09/22/19 B: 10% L: 10% D: 0% RN reports when attempting to administer Pt meds crushed w/ apple sauce in AM, Pt's swallow appeared incomplete and poor, w/ remaining meds+apple sauce mixture remaining throughout oral cavity. (11) Severe protein-calorie malnutrition Sai Aaron September 23, 2019 14:16
--- NOTE | 2019-09-23 14:31 | General Progress Note ---
Assessment/Plan Problem List: (1) CHF (congestive heart failure) ICD Codes: I50.9 - Heart failure, unspecified SNOMED: 78505887 (2) Renal failure (ARF), acute on chronic ICD Codes: N17.9 - Acute kidney failure, unspecified; N18.9 - Chronic kidney disease, unspecified SNOMED: 820059036 (3) Encephalopathy due to metabolic factor or toxin SNOMED: 041369484 (4) Gross hematuria ICD Codes: R31.0 - Gross hematuria SNOMED: 025697410 (5) Falls frequently ICD Codes: R29.6 - Repeated falls SNOMED: 163195781 (6) Dehydration ICD Codes: E86.0 - Dehydration SNOMED: 99442109 (7) UTI (urinary tract infection) ICD Codes: N39.0 - Urinary tract infection, site not specified SNOMED: 53146402 (8) Anemia ICD Codes: D64.9 - Anemia, unspecified SNOMED: 065604775 Status: stable, progressing, not improved Assessment/Plan: o2 as needed. titrate to keep sats >92 fall precautions. monitor cxr follow up cultures monitor bmp and lytes hypotonic ivf Anxiolytics as needed. Continue blood pressure treatment. DVT and stress ulcer prophylaxis. tylenol for fevers ID follow up POA is going to check pts advanced directed regarding feeding tubes Subjective ROS Limited/Unobtainable: No Constitutional: Reports: fever, malaise, weakness HEENT: Reports: no symptoms Cardiovascular: Reports: no symptoms Respiratory: Reports: cough, shortness of breath Gastrointestinal/Abdominal: Reports: difficulty swallowing Genitourinary: Reports: no symptoms Neurologic/Psychiatric: Reports: anxiety, emotional problems Endocrine: Reports: no symptoms Hematologic/Lymphatic: Reports: no symptoms Allergies: Coded Allergies: No Known Allergies (Unverified , 06/05/19) All Systems: reviewed and negative except above Subjective still with fever. pocketting food. increased sob. on o2. elevated Na noted. on hypotonic ivf. confused. cxr with increased left sided infiltrate Objective Last 24 Hour Vital Signs Date Time Temp Pulse Resp B/P (MAP) Pulse Ox O2 Delivery O2 Flow Rate FiO2 09/23/19 13:42 127/69 09/23/19 13:15 99.4 09/23/19 12:00 101.8 102 40 127/69 (88) 97 09/23/19 09:33 117/67 09/23/19 09:33 102 117/67 09/23/19 09:20 102.6 102 44 117/67 (84) 97 09/23/19 09:00 Room Air 09/23/19 04:00 98.6 100 20 109/76 (87) 97 09/23/19 00:00 98.9 100 20 117/74 (88) 95 09/22/19 22:50 Room Air 09/22/19 21:14 133/78 09/22/19 20:00 98.6 100 18 135/74 (94) 95 09/22/19 16:00 102.1 100 23 124/71 (88) 96 Intake and Output 09/22/19 09/23/19 19:00 07:00 Intake Total 520 ml Balance 520 ml Intake Oral 120 ml IV Total 400 ml # Voids 2 Laboratory Tests 09/22/19 20:36: Sodium Level 156H, Potassium Level 3.5, Chloride Level 119H, Carbon Dioxide Level 28, Anion Gap 9, Blood Urea Nitrogen 64H, Creatinine 2.5H, Estimat Glomerular Filtration Rate 24.7, Glucose Level 97, Calcium Level 9.2 09/23/19 04:30: Sodium Level 160H, Potassium Level 3.2L, Chloride Level 121H, Carbon Dioxide Level 26, Anion Gap 14, Blood Urea Nitrogen 65H, Creatinine 2.6H, Estimat Glomerular Filtration Rate 23.6, Glucose Level 72L, Calcium Level 9.0, White Blood Count 19.6H, Red Blood Count 3.12L, Hemoglobin 8.9L, Hematocrit 27.0L, Mean Corpuscular Volume 87, Mean Corpuscular Hemoglobin 28.5, Mean Corpuscular Hemoglobin Concent 32.9, Red Cell Distribution Width 13.3, Platelet Count 283, Mean Platelet Volume 5.8L, Neutrophils (%) (Auto) , Lymphocytes (%) (Auto) , Monocytes (%) (Auto) , Eosinophils (%) (Auto) , Basophils (%) (Auto) , Differential Total Cells Counted 100, Neutrophils % (Manual) 95H, Lymphocytes % (Manual) 3L, Monocytes % (Manual) 2, Eosinophils % (Manual) 0, Basophils % ( Manual) 0, Band Neutrophils 0, Platelet Estimate Adequate, Platelet Morphology Normal, Hypochromasia 2+, Anisocytosis 1+, Uric Acid 8.6H, Phosphorus Level 2.7 , Magnesium Level 3.2H, Total Bilirubin 0.4, Aspartate Amino Transf (AST/SGOT) 66H, Alanine Aminotransferase (ALT/SGPT) 42, Alkaline Phosphatase 90, C- Reactive Protein, Quantitative 45.0H, Pro-B-Type Natriuretic Peptide 18398J, Total Protein 6.7, Albumin 1.6L, Globulin 5.1, Albumin/Globulin Ratio 0.3L Height (Feet): 5 Height (Inches): 6.00 Weight (Pounds): 91 Objective General Appearance: WD/WN, alert, confused Neck: supple Cardiovascular: regular rhythm Respiratory/Chest: rhonchi - bilaterally Abdomen: normal bowel sounds, non tender, soft, no organomegaly, no mass Edema: no edema noted Arm (L), no edema noted Arm (R), no edema noted Leg (L), no edema noted Leg (R), no edema noted Pedal (L), no edema noted Pedal (R), no edema noted Generalized Neurologic: fishing tool supervisor II-XII grossly normal, alert, responsive Iggy Echavarria MD September 23, 2019 14:31
--- NOTE | 2019-09-23 14:45 | NUR ---
*-*INSURANCE*-* UPDATED CLINICALS AND REVIEWS HAVE BEEN FACXED TO: DEE ARAGON:GLENIS P: [phone] F: [phone] REF# [id number]
--- NOTE | 2019-09-23 15:41 | Diagnostic Imaging Report ---
Indication: Shortness of breath Technique: One view of the chest Comparison: 09/21/2019 Findings: Again demonstrated is left lower lobe infiltrate, appearing unchanged. There may be some patchy opacity at the right lung base as well. There may be some pleural fluid on the left. The heart size is normal. There are median sternotomy sutures. Impression: Unchanged left lower lobe infiltrate Possible developing right basilar patchy infiltrate
--- NOTE | 2019-09-23 15:49 | NUR ---
NURSE NOTES PLS CALL LIFELINE TEL [phone] NO IF PATIENT WILL BE DISCHARGE TO [facility] TODAY MARLENA Addendum: 09/23/19 at 1817 by MARCIAL GONZALEZ RN RN wrong patient
[2019-09-23 16:37] VITALS: BP 124/51
--- NOTE | 2019-09-23 19:20 | NUR ---
NURSE NOTES HAND-OFF: Report given to Ms PETERS patient resting comfortably chas restrepo.
--- NOTE | 2019-09-23 19:30 | NUR ---
NURSE NOTES: RECEIVED PATIENT FROM LUIS FERNANDO CEJA. PATIENT IS AWAKE, AAOX1, ON NC 4L, O2 SAT 94%, NO ACUTE DISTRESS NOTED. PIV ON RIGHT FA INTACT AND PATENT. WOUND DRESSINGS INTACT AND DRY. BED IS LOCKED AND LOW, BED ALARMS ACTIVE, SIDE RAILS UP X2 AND CALL LIGHT IS WITHIN REACH. WILL CONTINUE TO MONITOR.
[2019-09-23 20:00] VITALS: BP 110/61
[2019-09-24] VITALS (7 sets, daily range): BP systolic 98–129; BP diastolic 46–76
--- NOTE | 2019-09-24 01:00 | Progress Note ---
DATE: 09/23/2019 CARDIOLOGY PROGRESS NOTE SUBJECTIVE: The patient is congested. Short of breath. Pocketing food. Oxygen saturations remain adequate on room air however. The patient is on IV fluids due to abnormal laboratory studies. He continues to have increasing heart rates noted. PHYSICAL EXAMINATION: VITAL SIGNS: He is febrile to 101.8, blood pressure 127/69, heart rate 102, respiratory rate 40. LUNGS: Coarse breath sounds. Rhonchi and rales. CARDIAC: Irregularly irregular rhythm. Normal S1, S2 with a 1/6 systolic apical murmur. ABDOMEN: Soft. EXTREMITIES: There is trace edema. DIAGNOSTIC AND LABORATORY DATA: Chest x-ray today revealed developing patchy infiltrate on the right and persisting left lower lobe infiltrate. White count 19.6, hemoglobin 8.9. Sodium 160, potassium 3.2, bicarb 26, BUN 65, creatinine 2.6. Pro natriuretic peptide 12,000. Urine culture with multiple pathogens. IMPRESSION: 1. Critical and guarded. 2. Sepsis. 3. Aspiration pneumonia. 4. Healthcare-acquired pneumonia. 5. COVID-19 pneumonia. 6. Acute on chronic diastolic congestive heart failure. 7. Valvular cardiomyopathy with mitral regurgitation. 8. Atrial fibrillation with increasing ventricular rates. 9. Dehydration. 10. Hypernatremia. 11. Hyperchloremia. PLAN: 1. Hypotonic IV fluids. 2. Antimicrobials. 3. Respiratory hygiene. 4. Maximizing anti-failure regimen. 5. Hold diuresis until free water deficit is corrected. 6. Continue cardiac monitoring and cardioembolic prophylaxis. Gamaliel Salas M.D. DR: LUISA JOB#: [id number] CC:
[2019-09-24] MEDS: HydrALAZINE 50mg tab ORAL SCH ×3 (06:00→20:54)
[2019-09-24] MEDS: Zosyn 3.375gm in NS 110ml IVPB SCH ×2 (06:36→17:07)
--- NOTE | 2019-09-24 07:32 | NUR ---
HAND-OFF: Report given to LUIS FERNANDO Zaidi.
--- NOTE | 2019-09-24 07:32 | NUR ---
NURSE NOTES: Patient non-verbal; on Nasal Cannula 4 Liters, no sing of distress and shortness of breath; no sing of chest pain; IV Right For-Arm fluid running; side rails up x2, breaks engaged, bed alarm on, bed at lowest position; will keep monitoring.
[2019-09-24] MEDS: Imdur 30mg tab ORAL SCH (08:21)
[2019-09-24] MEDS: Ascorbic Acid 500mg tab ORAL SCH (08:21)
[2019-09-24] MEDS: Valproic Acid 250mg/5ml Liquid NG SCH ×2 (08:21→20:54)
[2019-09-24] MEDS: Tamsulosin 0.4mg cap ORAL SCH ×2 (08:22→17:07)
[2019-09-24] MEDS: Enoxaparin 60mg Inj SUBQ SCH (08:23)
--- NOTE | 2019-09-24 09:52 | Urology Progress Note ---
Assessment/Plan Status: stable, progressing, not improved Assessment/Plan: 1. Gross hematuria hx, presumably secondary to Doshi trauma, resolved. 2. BPH. 3. Urinary retention. 4. Neurogenic bladder. 5. Pyuria?UTI/colonized. 6. Proteinuria. 7. Renal insufficiency, which appears to be acute on chronic. 8. Rule out urethral stricture. monitor clinically on proscar and flomax back on abx restraints PRN cysto at some point renal imaging? COVID (+) hx I removed existing doshi urethra gently dilated and I passed 20f coude cath return of denia urine monitor for bleeding on lovenox, hold PRN voiding trial later Subjective Allergies: Coded Allergies: No Known Allergies (Unverified , 06/05/19) Subjective all noted, confused some resp diff reported pt seen later, nurse had placed a doshi but not in correct position (pt with hx of diff cath) Objective Last 24 Hour Vital Signs Date Time Temp Pulse Resp B/P (MAP) Pulse Ox O2 Delivery O2 Flow Rate FiO2 09/24/19 09:00 Room Air 09/24/19 08:22 80 115/76 09/24/19 08:21 115/76 09/24/19 08:00 97.9 76 22 129/54 (79) 95 09/24/19 06:00 115/76 09/24/19 04:00 98.3 80 22 115/76 (89) 97 09/24/19 00:00 98.9 91 24 103/46 (65) 97 09/23/19 21:11 110/61 09/23/19 21:00 Room Air 09/23/19 20:00 98.6 100 22 110/61 (77) 93 09/23/19 17:28 99.8 09/23/19 16:37 102.2 98 36 124/51 (75) 97 09/23/19 13:42 127/69 09/23/19 12:00 101.8 102 40 127/69 (88) 97 Intake and Output 09/23/19 09/24/19 19:00 07:00 Intake Total 1147.5 ml 1350 ml Balance 1147.5 ml 1350 ml Intake Oral 20 ml IV Total 1127.5 ml 1350 ml # Voids 3 2 # Bowel Movements 1 1 Microbiology Date/Time Source Procedure Growth Status 09/18/19 16:15 Nasopharynx Coronavirus COVID-19 PCR (JOSÉ LUIS) - Final Complete 09/20/19 18:31 Urine,Clean Catch Urine Culture - Final Morganella Morg Spp Morganii Enterococcus Faecalis - Vre Mixed Urogenital Contaminants Complete 08/06/19 04:45 Rectum VRE Culture - Final NO VANCOMYCIN RESISTANT ENTEROCOCCUS ... Complete Current Medications Medications (Trade) Dose Ordered Sig/Kristine Route PRN Reason Start Time Stop Time Status Last Admin Dose Admin Acetaminophen (Tylenol) 650 mg Q4H PRN ORAL Fever 09/09/19 22:30 10/09/19 22:29 09/22/19 05:16 Acetaminophen (Tylenol) 650 mg Q4H PRN RECTAL Mild Pain (Pain Scale 1-3) 09/22/19 09:45 10/22/19 09:44 09/23/19 16:58 Amlodipine Besylate (Norvasc) 10 mg DAILY ORAL 09/10/19 09:00 09/28/19 08:59 09/24/19 08:22 Ascorbic Acid (Vitamin C) 250 mg DAILY ORAL 09/10/19 09:00 10/10/19 08:59 09/24/19 08:21 Bisacodyl (Dulcolax) 10 mg DAILYPRN PRN RECTAL Constipation 09/18/19 17:00 12/17/19 16:59 Calcitonin Buckner (Miacalcin) 1 sprays DAILY NASAL 09/12/19 13:00 12/11/19 12:59 09/24/19 08:23 Dextrose 1,000 ml @ 150 mls/hr Q6H40M IV 09/23/19 18:19 10/23/19 18:18 09/24/19 07:39 Enoxaparin Sodium (Lovenox) 60 mg DAILY SUBQ 09/24/19 09:00 12/23/19 08:59 09/24/19 08:23 Famotidine (Pepcid) 20 mg DAILY ORAL 09/10/19 09:00 12/09/19 08:59 09/24/19 08:21 Finasteride (Proscar) 5 mg DAILY ORAL 09/10/19 09:00 11/05/19 15:44 09/24/19 08:22 Hydralazine HCl (Apresoline) 50 mg Q8HR ORAL 09/12/19 22:00 12/11/19 21:59 09/22/19 21:14 Isosorbide Mononitrate (Imdur) 60 mg DAILY ORAL 09/21/19 09:00 10/21/19 08:59 09/24/19 08:21 Multivitamins (Multivitamins) 1 tab DAILY ORAL 09/10/19 09:00 10/10/19 08:59 09/24/19 08:22 Piperacillin Sod/ Tazobactam Sod 3.375 gm/Sodium Chloride 110 ml @ 27.5 mls/hr Q12H IVPB 09/21/19 18:00 09/28/19 17:59 09/24/19 06:36 Tamsulosin HCl (Flomax) 0.4 mg BID ORAL 09/12/19 12:00 10/06/19 20:59 09/24/19 08:22 Valproic Acid (Depakene) 250 mg EVERY 12 HOURS NG 09/09/19 21:00 10/22/19 20:59 09/24/19 08:21 Height (Feet): 5 Height (Inches): 6.00 Weight (Pounds): 91 Objective exam stable abdomen soft doshi in place Miki Calzada MD September 24, 2019 09:52
--- NOTE | 2019-09-24 10:57 | Pulmonology Progress Note ---
Subjective ROS Limited/Unobtainable: No Interval Events: None new reported Constitutional: Reports: fever, other HEENT: Repors: no symptoms Respiratory: Reports: no symptoms Cardiovascular: Reports: no symptoms Gastrointestinal/Abdominal: Denies: nausea, vomiting, diarrhea Genitourinary: Reports: no symptoms; Denies: dysuria, hematuria, frequency, nocturia, urgency, other Neurologic: Reports: no symptoms Musculoskeletal: Denies: no symptoms, pain, swelling, stiffness, other Allergies: Coded Allergies: No Known Allergies (Unverified , 06/05/19) All Systems: reviewed and negative except above Objective Last 24 Hour Vital Signs Date Time Temp Pulse Resp B/P (MAP) Pulse Ox O2 Delivery O2 Flow Rate FiO2 09/24/19 09:00 Room Air 09/24/19 08:22 80 115/76 09/24/19 08:21 115/76 09/24/19 08:00 97.9 76 22 129/54 (79) 95 09/24/19 06:00 115/76 09/24/19 04:00 98.3 80 22 115/76 (89) 97 09/24/19 00:00 98.9 91 24 103/46 (65) 97 09/23/19 21:11 110/61 09/23/19 21:00 Room Air 09/23/19 20:00 98.6 100 22 110/61 (77) 93 09/23/19 17:28 99.8 09/23/19 16:37 102.2 98 36 124/51 (75) 97 09/23/19 13:42 127/69 09/23/19 12:00 101.8 102 40 127/69 (88) 97 Intake and Output 09/23/19 09/24/19 19:00 07:00 Intake Total 1147.5 ml 1350 ml Balance 1147.5 ml 1350 ml Intake Oral 20 ml IV Total 1127.5 ml 1350 ml # Voids 3 2 # Bowel Movements 1 1 General Appearance: cachetic HEENT: mucous membranes moist Respiratory/Chest: chest wall non-tender, lungs clear Cardiovascular: normal peripheral pulses Abdomen: soft, non tender Extremities: no edema Neurologic/Psychiatric: aphasia Current Medications Medications (Trade) Dose Ordered Sig/Kristine Route PRN Reason Start Time Stop Time Status Last Admin Dose Admin Acetaminophen (Tylenol) 650 mg Q4H PRN ORAL Fever 09/09/19 22:30 10/09/19 22:29 09/22/19 05:16 Acetaminophen (Tylenol) 650 mg Q4H PRN RECTAL Mild Pain (Pain Scale 1-3) 09/22/19 09:45 10/22/19 09:44 09/23/19 16:58 Amlodipine Besylate (Norvasc) 10 mg DAILY ORAL 09/10/19 09:00 09/28/19 08:59 09/24/19 08:22 Ascorbic Acid (Vitamin C) 250 mg DAILY ORAL 09/10/19 09:00 10/10/19 08:59 09/24/19 08:21 Bisacodyl (Dulcolax) 10 mg DAILYPRN PRN RECTAL Constipation 09/18/19 17:00 12/17/19 16:59 Calcitonin [place] (Miacalcin) 1 sprays DAILY NASAL 09/12/19 13:00 12/11/19 12:59 09/24/19 08:23 Dextrose 1,000 ml @ 150 mls/hr Q6H40M IV 09/23/19 18:19 10/23/19 18:18 09/24/19 07:39 Enoxaparin Sodium (Lovenox) 60 mg DAILY SUBQ 09/24/19 09:00 12/23/19 08:59 09/24/19 08:23 Famotidine (Pepcid) 20 mg DAILY ORAL 09/10/19 09:00 12/09/19 08:59 09/24/19 08:21 Finasteride (Proscar) 5 mg DAILY ORAL 09/10/19 09:00 11/05/19 15:44 09/24/19 08:22 Hydralazine HCl (Apresoline) 50 mg Q8HR ORAL 09/12/19 22:00 12/11/19 21:59 09/22/19 21:14 Isosorbide Mononitrate (Imdur) 60 mg DAILY ORAL 09/21/19 09:00 10/21/19 08:59 09/24/19 08:21 Multivitamins (Multivitamins) 1 tab DAILY ORAL 09/10/19 09:00 10/10/19 08:59 09/24/19 08:22 Piperacillin Sod/ Tazobactam Sod 3.375 gm/Sodium Chloride 110 ml @ 27.5 mls/hr Q12H IVPB 09/21/19 18:00 09/28/19 17:59 09/24/19 06:36 Tamsulosin HCl (Flomax) 0.4 mg BID ORAL 09/12/19 12:00 10/06/19 20:59 09/24/19 08:22 Valproic Acid (Depakene) 250 mg EVERY 12 HOURS NG 09/09/19 21:00 10/22/19 20:59 09/24/19 08:21 Assessment/Plan Assessment/Plan IMPRESSION: 1. Pleural effusions, small bilateral. 2. Atelectasis. 3. Pulmonary edema, questionable. 4. Hypertension. 5. Hyperlipidemia. 6. positive COVID 19 7. 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 No new recommendations Rodrigo Nazario Omar Syed MD September 24, 2019 10:57
--- NOTE | 2019-09-24 11:25 | Infectious Diseases Prog Note ---
Assessment/Plan Assessment/Plan antibiotics : zosyn A 1. COVID 19 pneumonia test + on 4.14.20, 4.16.20, 4.22.20, 4.27.20, 5.3.20 test negative 4.29.20 2. morganella, streptococcus urinary tract infection 3. Renal failure. 4. hypertension 5. cardiomyopathy 6. leucocytosis increased 7. fever P 1. continue zosyn 2. 1 dose ivermectin today, unable to get consent 3. will follow up cultures 4. Continue isolation Subjective ROS Limited/Unobtainable: Yes Allergies: Coded Allergies: No Known Allergies (Unverified , 06/05/19) Objective Vital Signs Last 24 Hour Vital Signs Date Time Temp Pulse Resp B/P (MAP) Pulse Ox O2 Delivery O2 Flow Rate FiO2 09/24/19 09:00 Room Air 09/24/19 08:22 80 115/76 09/24/19 08:21 115/76 09/24/19 08:00 97.9 76 22 129/54 (79) 95 09/24/19 06:00 115/76 09/24/19 04:00 98.3 80 22 115/76 (89) 97 09/24/19 00:00 98.9 91 24 103/46 (65) 97 09/23/19 21:11 110/61 09/23/19 21:00 Room Air 09/23/19 20:00 98.6 100 22 110/61 (77) 93 09/23/19 17:28 99.8 09/23/19 16:37 102.2 98 36 124/51 (75) 97 09/23/19 13:42 127/69 09/23/19 12:00 101.8 102 40 127/69 (88) 97 Height (Feet): 5 Height (Inches): 6.00 Weight (Pounds): 91 Current Medications Medications (Trade) Dose Ordered Sig/Kristine Route PRN Reason Start Time Stop Time Status Last Admin Dose Admin Acetaminophen (Tylenol) 650 mg Q4H PRN ORAL Fever 09/09/19 22:30 10/09/19 22:29 09/22/19 05:16 Acetaminophen (Tylenol) 650 mg Q4H PRN RECTAL Mild Pain (Pain Scale 1-3) 09/22/19 09:45 10/22/19 09:44 09/23/19 16:58 Amlodipine Besylate (Norvasc) 10 mg DAILY ORAL 09/10/19 09:00 09/28/19 08:59 09/24/19 08:22 Ascorbic Acid (Vitamin C) 250 mg DAILY ORAL 09/10/19 09:00 10/10/19 08:59 09/24/19 08:21 Bisacodyl (Dulcolax) 10 mg DAILYPRN PRN RECTAL Constipation 09/18/19 17:00 12/17/19 16:59 Calcitonin [place] (Miacalcin) 1 sprays DAILY NASAL 09/12/19 13:00 12/11/19 12:59 09/24/19 08:23 Dextrose 1,000 ml @ 150 mls/hr Q6H40M IV 09/23/19 18:19 10/23/19 18:18 09/24/19 07:39 Enoxaparin Sodium (Lovenox) 60 mg DAILY SUBQ 09/24/19 09:00 12/23/19 08:59 09/24/19 08:23 Famotidine (Pepcid) 20 mg DAILY ORAL 09/10/19 09:00 12/09/19 08:59 09/24/19 08:21 Finasteride (Proscar) 5 mg DAILY ORAL 09/10/19 09:00 11/05/19 15:44 09/24/19 08:22 Hydralazine HCl (Apresoline) 50 mg Q8HR ORAL 09/12/19 22:00 12/11/19 21:59 09/22/19 21:14 Isosorbide Mononitrate (Imdur) 60 mg DAILY ORAL 09/21/19 09:00 10/21/19 08:59 09/24/19 08:21 Multivitamins (Multivitamins) 1 tab DAILY ORAL 09/10/19 09:00 10/10/19 08:59 09/24/19 08:22 Piperacillin Sod/ Tazobactam Sod 3.375 gm/Sodium Chloride 110 ml @ 27.5 mls/hr Q12H IVPB 09/21/19 18:00 09/28/19 17:59 09/24/19 06:36 Tamsulosin HCl (Flomax) 0.4 mg BID ORAL 09/12/19 12:00 5/21/20 20:59 09/24/19 08:22 Valproic Acid (Depakene) 250 mg EVERY 12 HOURS NG 09/09/19 21:00 10/22/19 20:59 09/24/19 08:21 Gonzalez Stephens MD September 24, 2019 11:24
--- NOTE | 2019-09-24 12:39 | Nephrology Progress Note ---
Assessment/Plan Problem List: (1) Renal failure (ARF), acute on chronic Assessment: Serum creatinine stabilizing (2) Falls frequently (3) UTI (urinary tract infection) Assessment: and hematuria (4) Anemia (5) Dehydration (6) Encephalopathy due to metabolic factor or toxin (7) Hypercalcemia Assessment Frequent falls Acute renal failure with underlying dehydration Anemia, underlying etiology unclear UTI (urinary tract infection) Toxic metabolic encephalopathy Plan September 23: Serum creatinine rising On D5W IV fluid Will place Trevino catheter again Monitor renal parameters and serum sodium Continue per ID Leukocytosis worsening Will adjust blood pressure medication with proper parameters Previously: 1 dose of [place] for hypercalcemia was given before We will monitor calcium and phosphorus Previously Trial of 3% saline 250 cc for hyponatremia raised serum sodium from 129- to 134 Serum creatinine overall stable, it is 1.5 today Watch serum calcium, start calcitonin nasal spray for hypercalcemia Increase hydralazine dose for better blood pressure control Patient now COVID-19 positive Start D5W for hypernatremia as needed P.o. intake variable Oral potassium supplement as needed previously: Increase Flomax to twice daily Correct electrolytes as needed Transfusion as needed 2D echocardiogram ejection fraction 60% Kidney ultrasound pending results Monitor renal parameters Avoid nephrotoxics Antibiotics for UTI Continue per consultants Objective Objective Last 24 Hour Vital Signs Date Time Temp Pulse Resp B/P (MAP) Pulse Ox O2 Delivery O2 Flow Rate FiO2 09/24/19 09:00 Room Air 09/24/19 08:22 80 115/76 09/24/19 08:21 115/76 09/24/19 08:00 97.9 76 22 129/54 (79) 95 09/24/19 06:00 115/76 09/24/19 04:00 98.3 80 22 115/76 (89) 97 09/24/19 00:00 98.9 91 24 103/46 (65) 97 09/23/19 21:11 110/61 09/23/19 21:00 Room Air 09/23/19 20:00 98.6 100 22 110/61 (77) 93 09/23/19 17:28 99.8 09/23/19 16:37 102.2 98 36 124/51 (75) 97 09/23/19 13:42 127/69 Intake and Output 09/23/19 09/24/19 19:00 07:00 Intake Total 1147.5 ml 1350 ml Balance 1147.5 ml 1350 ml Intake Oral 20 ml IV Total 1127.5 ml 1350 ml # Voids 3 2 # Bowel Movements 1 1 Height (Feet): 5 Height (Inches): 6.00 Weight (Pounds): 91 Objective No change Juan Jade MD September 24, 2019 12:39
--- NOTE | 2019-09-24 14:04 | NUR ---
NURSE NOTES: Urine analysis collected and taken to the lab; waiting for result;
[2019-09-24] MEDS ORDERED: Potassium Phosphate 15mm/250ml 250 ML IVPB SCH (14:15)
[2019-09-24 14:48] LABS: APPEARANCE,URINE CLEAR; BILIRUBIN, URINE NEGATIVE (NEGATIVE); COLOR,URINE PALE YELLOW; GLUCOSE, URINE (UA) NEGATIVE (NEGATIVE); KETONES,URINE NEGATIVE (NEGATIVE); LEUKOCYTE ESTERASE ,URINE NEGATIVE (NEGATIVE); NITRITE,URINE NEGATIVE (NEGATIVE); PH,URINE 5 (4.5-8.0); PROTEIN,URINE 2+ (NEGATIVE); UROBILINOGEN,URINE NORMAL MG/DL (0.0-1.0)
--- NOTE | 2019-09-24 20:00 | NUR ---
NURSE NOTES: Received patient awake, confused, resting in bed on high back rest, no SOB noted.
--- NOTE | 2019-09-24 20:31 | Surgery Progress Note ---
Surgery Progress Note Subjective Additional Comments no acute events Objective Last 24 Hour Vital Signs Date Time Temp Pulse Resp B/P (MAP) Pulse Ox O2 Delivery O2 Flow Rate FiO2 09/24/19 20:19 96.3 64 20 100/59 (73) 95 09/24/19 20:04 Room Air 09/24/19 16:00 96.3 78 18 111/53 (72) 94 09/24/19 15:56 Room Air 09/24/19 13:25 98/46 09/24/19 12:00 96.3 73 18 98/46 (63) 93 09/24/19 09:00 Room Air 09/24/19 08:22 80 115/76 09/24/19 08:21 115/76 09/24/19 08:00 97.9 76 22 129/54 (79) 95 09/24/19 06:00 115/76 09/24/19 04:00 98.3 80 22 115/76 (89) 97 09/24/19 00:00 98.9 91 24 103/46 (65) 97 09/23/19 21:11 110/61 09/23/19 21:00 Room Air I&O Intake and Output 09/23/19 09/24/19 19:00 07:00 Intake Total 1147.5 ml 1350 ml Balance 1147.5 ml 1350 ml Intake Oral 20 ml IV Total 1127.5 ml 1350 ml # Voids 3 2 # Bowel Movements 1 1 Dressing: saturated Wound: clean Cardiovascular: RSR Respiratory: decreased breath sounds Abdomen: soft, non-tender, present bowel sounds Extremities: no cyanosis Laboratory Tests Test 09/24/19 13:50 Urine Color Pale yellow Urine Appearance Clear Urine pH 5 (4.5-8.0) Urine Specific [place] 1.010 (1.005-1.035) Urine Protein 2+ (NEGATIVE) H Urine Glucose (UA) Negative (NEGATIVE) Urine Ketones Negative (NEGATIVE) Urine Blood 1+ (NEGATIVE) H Urine Nitrite Negative (NEGATIVE) Urine Bilirubin Negative (NEGATIVE) Urine Urobilinogen Normal MG/DL (0.0-1.0) Urine Leukocyte Esterase Negative (NEGATIVE) Urine RBC 0-2 /HPF (0 - 0) H Urine WBC 0 /HPF (0 - 0) Urine Squamous Epithelial Cells None /LPF (NONE/OCC) Urine Bacteria Few /HPF (NONE) Plan Problems: (1) Dehydration (2) Anemia (3) UTI (urinary tract infection) (4) Falls frequently (5) Renal failure (ARF), acute on chronic (6) Encephalopathy due to metabolic factor or toxin (7) CHF (congestive heart failure) (8) Gross hematuria (9) Deep tissue injury Assessment & Plan: Pt presented on admission with multiple pressure injuries which were resolving. 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 Base of injury is purple with maroon borders . Surrounding non-blanching erythema to R and Gluteal cheeks. Scrotum is erythematous. R and L heels are boggy but each area blanchable. Tx.Plan: Apply Moisture Barrier Paste to Sacrum. Cover with Optifoam drsg. Change every 3 days and prn. Apply Moisture Barrier Paste to bilat groin and scrotum with each incontinence care. Apply Cavilon Skin Barrier to both heels. Cover each heel with Optifoam drsg. Change every 7 days and prn. Reposition at least every 2hours or as tolerated. Off-load heels with pillow. APM/MEI Mattress overlay. (10) Malnutrition Assessment & Plan: DAILY ESTIMATED NEEDS: Needs based on Wound, 66.8kg 28-33 kcals/kg 0253-7763 total kcals 1.25-1.5 g protein/kg 84-100 g total protein 25-30 mL/kg 7083-8395 total fluid mLs NUTRITION DIAGNOSIS: Swallowing difficulty r/t dysphagia and ams as evidenced by s/p FUNERAL LOCATION MANAGER eval, poor cognition, pt on liquify puree texture diet w/ HTL, now with poor/variable intake, high aspiration risk. CURRENT DIET: Liquify puree HTL Regular PO DIET RECOMMENDATIONS: Maintain Regular diet, texture per FUNERAL LOCATION MANAGER ENTERAL NUTRITION RECOMMENDATIONS: CONSULT RD IF NON ORAL FEEDS ARE PART OF PLAN OF CARE ADDITIONAL RECOMMENDATIONS: 1) Ensure Enlive TID w/ meals (350kcal/20g prot per bottle) 2) RECALIBRATE BEDSCALE WT: BIG DISCREPANCY IN WTS initial EMR wt: 160# vs Bed scale wt: 147#-> EMR wt now reads 88.8# 3) CONSIDER APPETITE STIMULANT- prolonged poor PO; NGT feeds if part POC 4) Rec daily bowel regimen: now w/ bm 5/4 4) Wound care: MVI 1 tab QD + Vit C 250mg QD+ Jacob BID 5) Monitor lytes, hydration status, replete as needed-> on replacement + D5 POLST: NO TUBE FEEDINGS AND DNR PER PATIENT. PER HIS MOBILE UI DEVELOPER FRIEND, MOBILE UI DEVELOPER CANNOT MAKE DECISIONS FOR HIM. HE SAID HIS PARTNER LATE LAST YEAR AND HE HAS BEEN AGITATED FOR 3 MONTHS (TAKING DIFFERENT PSYCH MEDS).Pt being seen by PSYCHIATRIST. PLOF: Previously lived at [facility] and consumed regular texture diet and thin liquids w/ no swallowing difficulties per tariff clerk. VITALS on 4 L/min via nasal cannula HR: 102 bpm RR: 44 bpm Temp: 102.6 SP02: 97% Pt w/ ongoing poor PO intake of current diet Liquified Puree (White Clay-Like Soup) with White Clay Thick Liquids. 09/20/19 B: 50% L: 50% D: 50% 09/21/19 B: 50% L: 50% D: 0% 09/22/19 B: 10% L: 10% D: 0% RN reports when attempting to administer Pt meds crushed w/ apple sauce in AM, Pt's swallow appeared incomplete and poor, w/ remaining meds+apple sauce mixture remaining throughout oral cavity. (11) Severe protein-calorie malnutrition Sai Aaron September 24, 2019 20:31
[2019-09-24] MEDS ORDERED: 1/2 NS 1000ml IV ONE (21:25)
--- NOTE | 2019-09-24 21:59 | NUR ---
NURSE NOTES: Sacral wound/pressure ulcer cleansed, picture taken, dressing changed.
--- NOTE | 2019-09-24 22:47 | Psych Consult Progress Note ---
Psychiatry Progress Note Psychiatry Progress Note Medications Current Medications Medications (Trade) Dose Ordered Sig/Kristine Route PRN Reason Start Time Stop Time Status Last Admin Dose Admin Acetaminophen (Tylenol) 650 mg Q4H PRN ORAL Fever 09/09/19 22:30 10/09/19 22:29 09/22/19 05:16 Acetaminophen (Tylenol) 650 mg Q4H PRN RECTAL Mild Pain (Pain Scale 1-3) 09/22/19 09:45 10/22/19 09:44 09/23/19 16:58 Amlodipine Besylate (Norvasc) 5 mg DAILY ORAL 09/25/19 09:00 10/25/19 08:59 Ascorbic Acid (Vitamin C) 250 mg DAILY ORAL 09/10/19 09:00 10/10/19 08:59 09/24/19 08:21 Bisacodyl (Dulcolax) 10 mg DAILYPRN PRN RECTAL Constipation 09/18/19 17:00 12/17/19 16:59 Calcitonin [place] (Miacalcin) 1 sprays DAILY NASAL 09/12/19 13:00 12/11/19 12:59 09/24/19 08:23 Dextrose 1,000 ml @ 150 mls/hr Q6H40M IV 09/23/19 18:19 10/23/19 18:18 09/24/19 17:07 Enoxaparin Sodium (Lovenox) 60 mg DAILY SUBQ 09/24/19 09:00 12/23/19 08:59 09/24/19 08:23 Famotidine (Pepcid) 20 mg DAILY ORAL 09/10/19 09:00 12/09/19 08:59 09/24/19 08:21 Finasteride (Proscar) 5 mg DAILY ORAL 09/10/19 09:00 11/05/19 15:44 09/24/19 08:22 Hydralazine HCl (Apresoline) 25 mg Q8HR ORAL 09/24/19 14:00 12/11/19 21:59 Isosorbide Mononitrate (Imdur) 60 mg DAILY ORAL 09/21/19 09:00 10/21/19 08:59 09/24/19 08:21 Multivitamins (Multivitamins) 1 tab DAILY ORAL 09/10/19 09:00 10/10/19 08:59 09/24/19 08:22 Piperacillin Sod/ Tazobactam Sod 3.375 gm/Sodium Chloride 110 ml @ 27.5 mls/hr Q12H IVPB 09/21/19 18:00 09/28/19 17:59 09/24/19 17:07 Tamsulosin HCl (Flomax) 0.4 mg BID ORAL 09/12/19 12:00 10/06/19 20:59 09/24/19 17:07 Valproic Acid (Depakene) 250 mg EVERY 12 HOURS NG 09/09/19 21:00 10/22/19 20:59 09/24/19 20:54 Neurological/Psychiatric: Reports: anxiety, depressed Allergies: Coded Allergies: No Known Allergies (Unverified , 06/05/19) Objective Data Height (Feet): 5 Height (Inches): 6.00 Weight (Pounds): 91 Additional Comments: Alert, confused. Mood is neutral. Affect is flat. Thought process is concrete. Thought content, no suicidal or homicidal ideations. Assessment/Plan Problem List: (1) Encephalopathy due to metabolic factor or toxin Assessment & Plan: 2. Psychotic disorder. SNOMED: [id number] Status: stable, progressing, not improved Assessment/Plan: Dementia with behavior disturbance. PLAN: DC the citalopram, Depakote 250 mg b.i.d., continue trazodone. Continue to follow and readjust the medications. Loco Luu MD September 24, 2019 22:47
--- NOTE | 2019-09-25 01:00 | Progress Note ---
DATE: 09/24/2019 CARDIOLOGY PROGRESS NOTE SUBJECTIVE: The patient remains with episodes of agitation and confusion. No respiratory distress. He is off registered nurse cardiac telemetry. PHYSICAL EXAMINATION: VITAL SIGNS: Blood pressure low normal range 98/46 to 115/76, heart rate 73 to 80, he is afebrile, oxygen saturation room air 93% to 94%. LUNGS: Few rhonchi. CARDIAC: Irregularly irregular rhythm. Normal S1, S2. ABDOMEN: Soft. EXTREMITIES: No edema. LABORATORY DATA: No new labs today. IMPRESSION: 1. Dehydration. 2. Hypernatremia. 3. Hypokalemia. 4. Hyperchloremia. 5. Acute renal failure. 6. COVID-19 pneumonia. 7. Valvular cardiomyopathy. 8. Mitral regurgitation. 9. Acute on chronic diastolic congestive heart failure. 10. Pulmonary hypertension. 11. Severe protein-calorie malnutrition, remains serious and guarded. PLAN: Recheck laboratory studies. Continue current medical regimen. IV fluid hydration and oxygenation with isolation. Decrease antihypertensive in view of low range blood pressure parameters. Gamaliel Salas M.D. DR: SONJA JOB#: [id number] CC:
[2019-09-25 04:40] VITALS: BP 114/53
[2019-09-25] MEDS: Zosyn 3.375gm in NS 110ml IVPB SCH ×2 (05:10→17:26)
[2019-09-25] MEDS: HydrALAZINE 50mg tab ORAL SCH ×4 (05:11→20:47)
--- NOTE | 2019-09-25 07:07 | NUR ---
HAND-OFF: Report given to Dyan Green RN.
--- NOTE | 2019-09-25 07:34 | NUR ---
NURSE NOTES: Patient awake, confused; on Nasal Cannula 4 liters, no sings of distress and shortness of breath; no sing of chest pain; IV Right For-Arm Zosyn running; Trevino in place, drains yellow urine; upper and lower extremities contracted; side rails up x2, breaks engaged, bed at lowest position, bed alarm on; call light within reach; will keep monitoring.
[2019-09-25 08:00] VITALS: BP 118/69
[2019-09-25] MEDS: Imdur 30mg tab ORAL SCH (09:08)
[2019-09-25] MEDS: Tamsulosin 0.4mg cap ORAL SCH ×2 (09:08→17:24)
[2019-09-25] MEDS: Valproic Acid 250mg/5ml Liquid NG SCH ×2 (09:08→20:46)
[2019-09-25] MEDS: Ascorbic Acid 500mg tab ORAL SCH (09:08)
[2019-09-25] MEDS: Enoxaparin 60mg Inj SUBQ SCH (09:10)
--- NOTE | 2019-09-25 09:15 | Pulmonology Progress Note ---
Subjective ROS Limited/Unobtainable: Yes Interval Events: None new reported Constitutional: Reports: fever, other HEENT: Repors: no symptoms Respiratory: Reports: no symptoms Cardiovascular: Reports: no symptoms Gastrointestinal/Abdominal: Denies: nausea, vomiting, diarrhea Genitourinary: Reports: no symptoms; Denies: dysuria, hematuria, frequency, nocturia, urgency, other Neurologic: Reports: no symptoms Musculoskeletal: Denies: no symptoms, pain, swelling, stiffness, other Allergies: Coded Allergies: No Known Allergies (Unverified , 06/05/19) All Systems: reviewed and negative except above Objective Last 24 Hour Vital Signs Date Time Temp Pulse Resp B/P (MAP) Pulse Ox O2 Delivery O2 Flow Rate FiO2 09/25/19 09:08 64 118/69 09/25/19 09:08 118/69 09/25/19 08:00 97.8 64 19 118/69 (85) 94 09/25/19 05:11 114/53 09/25/19 04:40 98.0 68 20 114/53 (73) 97 09/24/19 23:59 98.0 78 20 105/60 (75) 97 09/24/19 20:54 100/59 09/24/19 20:19 96.3 64 20 100/59 (73) 95 09/24/19 20:04 Room Air 09/24/19 16:00 96.3 78 18 111/53 (72) 94 09/24/19 15:56 Room Air 09/24/19 13:25 98/46 09/24/19 12:00 96.3 73 18 98/46 (63) 93 Intake and Output 09/24/19 09/25/19 19:00 07:00 Intake Total 1427.5 ml 1335.0 ml Output Total 300 ml 400 ml Balance 1127.5 ml 935.0 ml IV Total 1427.5 ml 1335.0 ml Output Urine Total 300 ml 400 ml # Voids 1 General Appearance: cachetic HEENT: mucous membranes moist Respiratory/Chest: chest wall non-tender, lungs clear Cardiovascular: normal peripheral pulses Abdomen: soft, non tender Extremities: no edema Neurologic/Psychiatric: aphasia Laboratory Tests 09/24/19 13:50: Urine Color Pale yellow, Urine Appearance Clear, Urine pH 5, Urine Specific [place] 1.010, Urine Protein 2+H, Urine Glucose (UA) Negative, Urine Ketones Negative, Urine Blood 1+H, Urine Nitrite Negative, Urine Bilirubin Negative, Urine Urobilinogen Normal, Urine Leukocyte Esterase Negative, Urine RBC 0-2H, Urine WBC 0, Urine Squamous Epithelial Cells None, Urine Bacteria Few 09/25/19 07:50: White Blood Count [Pending], Red Blood Count [Pending], Hemoglobin [Pending], Hematocrit [Pending], Mean Corpuscular Volume [Pending], Mean Corpuscular Hemoglobin [Pending], Mean Corpuscular Hemoglobin Concent [Pending], Red Cell Distribution Width [Pending], Platelet Count [Pending], Mean Platelet Volume [ Pending], Neutrophils (%) (Auto) [Pending], Lymphocytes (%) (Auto) [Pending], Monocytes (%) (Auto) [Pending], Eosinophils (%) (Auto) [Pending], Basophils (%) (Auto) [Pending], Sodium Level [Pending], Potassium Level [Pending], Chloride Level [Pending], Carbon Dioxide Level [Pending], Blood Urea Nitrogen [Pending], Creatinine [Pending], Estimat Glomerular Filtration Rate [Pending], Glucose Level [Pending], Uric Acid [Pending], Calcium Level [Pending], Phosphorus Level [Pending], Magnesium Level [Pending], Total Bilirubin [Pending], Aspartate Amino Transf (AST/SGOT) [Pending], Alanine Aminotransferase (ALT/SGPT) [Pending] , Alkaline Phosphatase [Pending], C-Reactive Protein, Quantitative [Pending], Pro-B-Type Natriuretic Peptide [Pending], Total Protein [Pending], Albumin [ Pending], Globulin [Pending] Current Medications Medications (Trade) Dose Ordered Sig/Kristine Route PRN Reason Start Time Stop Time Status Last Admin Dose Admin Acetaminophen (Tylenol) 650 mg Q4H PRN ORAL Fever 09/09/19 22:30 10/09/19 22:29 09/22/19 05:16 Acetaminophen (Tylenol) 650 mg Q4H PRN RECTAL Mild Pain (Pain Scale 1-3) 09/22/19 09:45 10/22/19 09:44 09/23/19 16:58 Amlodipine Besylate (Norvasc) 5 mg DAILY ORAL 09/25/19 09:00 10/25/19 08:59 09/25/19 09:08 Ascorbic Acid (Vitamin C) 250 mg DAILY ORAL 09/10/19 09:00 10/10/19 08:59 09/25/19 09:08 Bisacodyl (Dulcolax) 10 mg DAILYPRN PRN RECTAL Constipation 09/18/19 17:00 12/17/19 16:59 Calcitonin [place] (Miacalcin) 1 sprays DAILY NASAL 09/12/19 13:00 12/11/19 12:59 09/25/19 09:08 Dextrose 1,000 ml @ 150 mls/hr Q6H40M IV 09/23/19 18:19 10/23/19 18:18 09/25/19 09:12 Enoxaparin Sodium (Lovenox) 60 mg DAILY SUBQ 09/24/19 09:00 12/23/19 08:59 09/25/19 09:10 Famotidine (Pepcid) 20 mg DAILY ORAL 09/10/19 09:00 12/09/19 08:59 09/25/19 09:08 Finasteride (Proscar) 5 mg DAILY ORAL 09/10/19 09:00 11/05/19 15:44 09/25/19 09:08 Hydralazine HCl (Apresoline) 25 mg Q8HR ORAL 09/24/19 14:00 12/11/19 21:59 Isosorbide Mononitrate (Imdur) 60 mg DAILY ORAL 09/21/19 09:00 10/21/19 08:59 09/25/19 09:08 Multivitamins (Multivitamins) 1 tab DAILY ORAL 09/10/19 09:00 10/10/19 08:59 09/25/19 09:08 Piperacillin Sod/ Tazobactam Sod 3.375 gm/Sodium Chloride 110 ml @ 27.5 mls/hr Q12H IVPB 09/21/19 18:00 09/28/19 17:59 09/25/19 05:10 Tamsulosin HCl (Flomax) 0.4 mg BID ORAL 09/12/19 12:00 10/06/19 20:59 09/25/19 09:08 Valproic Acid (Depakene) 250 mg EVERY 12 HOURS NG 09/09/19 21:00 10/22/19 20:59 09/25/19 09:08 Assessment/Plan Assessment/Plan IMPRESSION: 1. Pleural effusions, small bilateral. 2. Atelectasis. 3. Pulmonary edema, questionable. 4. Hypertension. 5. Hyperlipidemia. 6. positive COVID 19 7. 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 No new recommendations Rodrigo Nazario Omar Syed MD September 25, 2019 09:15
[2019-09-25 09:28] LABS: HEMOGLOBIN 8.8 G/DL (14.2-18.0); MEAN CORPUSCULAR VOLUME 85 FL (80-99); PLATELET COUNT 244 K/UL (150-450); RED BLOOD COUNT 3.05 M/UL (4.70-6.10); RED CELL DISTRIBUTION WIDTH 12.9 % (11.6-14.8); WHITE BLOOD COUNT 17.6 K/UL (4.8-10.8)
[2019-09-25 10:01] LABS: ALANINE AMINOTRANSFERASE 38 U/L (12-78); ALBUMIN 1.4 G/DL (3.4-5.0); ALBUMIN/GLOBULIN RATIO 0.3 (1.0-2.7); ALKALINE PHOSPHATASE 104 U/L (46-116); ANION GAP 12 mmol/L (5-15); ASPARTATE AMINO TRANSFERASE 57 U/L (15-37); BILIRUBIN,TOTAL 0.3 MG/DL (0.2-1.0); BLOOD UREA NITROGEN 79 mg/dL (7-18); CALCIUM 7.4 MG/DL (8.5-10.1); CARBON DIOXIDE 24 MMOL/L (21-32); CHLORIDE 104 MMOL/L (98-107); CREATININE 2.7 MG/DL (0.55-1.30); POTASSIUM 3.4 MMOL/L (3.5-5.1); SODIUM 140 MMOL/L (136-145)
--- NOTE | 2019-09-25 10:07 | Nephrology Progress Note ---
Assessment/Plan Problem List: (1) Renal failure (ARF), acute on chronic Assessment: Serum creatinine stabilizing (2) Falls frequently (3) UTI (urinary tract infection) Assessment: and hematuria (4) Anemia (5) Dehydration (6) Encephalopathy due to metabolic factor or toxin (7) Hypercalcemia Assessment Frequent falls Acute renal failure with underlying dehydration Anemia, underlying etiology unclear UTI (urinary tract infection) Toxic metabolic encephalopathy Plan September 24: Today's chemistries pending Other data reviewed Continue as is September 23: Serum creatinine rising On D5W IV fluid Will place Trevino catheter again Monitor renal parameters and serum sodium Continue per ID Leukocytosis worsening Will adjust blood pressure medication with proper parameters Previously: 1 dose of Aredia for hypercalcemia was given before We will monitor calcium and phosphorus Previously Trial of 3% saline 250 cc for hyponatremia raised serum sodium from 129- to 134 Serum creatinine overall stable, it is 1.5 today Watch serum calcium, start calcitonin nasal spray for hypercalcemia Increase hydralazine dose for better blood pressure control Patient now COVID-19 positive Start D5W for hypernatremia as needed P.o. intake variable Oral potassium supplement as needed previously: Increase Flomax to twice daily Correct electrolytes as needed Transfusion as needed 2D echocardiogram ejection fraction 60% Kidney ultrasound pending results Monitor renal parameters Avoid nephrotoxics Antibiotics for UTI Continue per consultants Subjective ROS Limited/Unobtainable: No Objective Objective Last 24 Hour Vital Signs Date Time Temp Pulse Resp B/P (MAP) Pulse Ox O2 Delivery O2 Flow Rate FiO2 09/25/19 09:08 64 118/69 09/25/19 09:08 118/69 09/25/19 08:00 97.8 64 19 118/69 (85) 94 09/25/19 05:11 114/53 09/25/19 04:40 98.0 68 20 114/53 (73) 97 09/24/19 23:59 98.0 78 20 105/60 (75) 97 09/24/19 20:54 100/59 09/24/19 20:19 96.3 64 20 100/59 (73) 95 09/24/19 20:04 Room Air 09/24/19 16:00 96.3 78 18 111/53 (72) 94 09/24/19 15:56 Room Air 09/24/19 13:25 98/46 09/24/19 12:00 96.3 73 18 98/46 (63) 93 Intake and Output 09/24/19 09/25/19 19:00 07:00 Intake Total 1427.5 ml 1335.0 ml Output Total 300 ml 400 ml Balance 1127.5 ml 935.0 ml IV Total 1427.5 ml 1335.0 ml Output Urine Total 300 ml 400 ml # Voids 1 Laboratory Tests 09/24/19 13:50: Urine Color Pale yellow, Urine Appearance Clear, Urine pH 5, Urine Specific [place] 1.010, Urine Protein 2+H, Urine Glucose (UA) Negative, Urine Ketones Negative, Urine Blood 1+H, Urine Nitrite Negative, Urine Bilirubin Negative, Urine Urobilinogen Normal, Urine Leukocyte Esterase Negative, Urine RBC 0-2H, Urine WBC 0, Urine Squamous Epithelial Cells None, Urine Bacteria Few 09/25/19 07:50: White Blood Count 17.6H, Red Blood Count 3.05L, Hemoglobin 8.8L, Hematocrit 26.0L, Mean Corpuscular Volume 85, Mean Corpuscular Hemoglobin 28.8, Mean Corpuscular Hemoglobin Concent 33.8, Red Cell Distribution Width 12.9, Platelet Count 244, Mean Platelet Volume 6.4L, Neutrophils (%) (Auto) , Lymphocytes (%) ( Auto) , Monocytes (%) (Auto) , Eosinophils (%) (Auto) , Basophils (%) (Auto) , Neutrophils % (Manual) [Pending], Lymphocytes % (Manual) [Pending], Platelet Estimate [Pending], Platelet Morphology [Pending], Sodium Level [Pending], Potassium Level [Pending], Chloride Level [Pending], Carbon Dioxide Level [ Pending], Blood Urea Nitrogen [Pending], Creatinine [Pending], Estimat Glomerular Filtration Rate [Pending], Glucose Level [Pending], Uric Acid [ Pending], Calcium Level [Pending], Phosphorus Level [Pending], Magnesium Level [ Pending], Total Bilirubin [Pending], Aspartate Amino Transf (AST/SGOT) [Pending] , Alanine Aminotransferase (ALT/SGPT) [Pending], Alkaline Phosphatase [Pending] , C-Reactive Protein, Quantitative [Pending], Pro-B-Type Natriuretic Peptide [ Pending], Total Protein [Pending], Albumin [Pending], Globulin [Pending] Height (Feet): 5 Height (Inches): 6.00 Weight (Pounds): 91 General Appearance: no apparent distress Cardiovascular: normal rate Respiratory/Chest: decreased breath sounds Objective No change Juan Jade MD September 25, 2019 10:07
[2019-09-25 10:22] LABS: PHOSPHORUS 3.3 MG/DL (2.5-4.9)
--- NOTE | 2019-09-25 10:37 | General Progress Note ---
Assessment/Plan Problem List: (1) CHF (congestive heart failure) ICD Codes: I50.9 - Heart failure, unspecified SNOMED: 61061154 (2) Renal failure (ARF), acute on chronic ICD Codes: N17.9 - Acute kidney failure, unspecified; N18.9 - Chronic kidney disease, unspecified SNOMED: 234185038 (3) Encephalopathy due to metabolic factor or toxin SNOMED: 918071685 (4) Gross hematuria ICD Codes: R31.0 - Gross hematuria SNOMED: 874936290 (5) Falls frequently ICD Codes: R29.6 - Repeated falls SNOMED: 518538319 (6) Dehydration ICD Codes: E86.0 - Dehydration SNOMED: 84682656 (7) UTI (urinary tract infection) ICD Codes: N39.0 - Urinary tract infection, site not specified SNOMED: 32086221 (8) Anemia ICD Codes: D64.9 - Anemia, unspecified SNOMED: 896910283 Status: stable, progressing, not improved Assessment/Plan: o2 as needed. titrate to keep sats >92 fall precautions. monitor cxr follow up cultures monitor bmp and lytes hypotonic ivf Anxiolytics as needed. Continue blood pressure treatment. DVT and stress ulcer prophylaxis. tylenol for fevers ID follow up POA is going to check pts advanced directed regarding feeding tubes Subjective ROS Limited/Unobtainable: Yes Constitutional: Reports: malaise, weakness HEENT: Reports: no symptoms Cardiovascular: Reports: no symptoms Respiratory: Reports: cough Gastrointestinal/Abdominal: Reports: difficulty swallowing, poor appetite, poor fluid intake Genitourinary: Reports: no symptoms Neurologic/Psychiatric: Reports: anxiety, emotional problems Endocrine: Reports: no symptoms Hematologic/Lymphatic: Reports: no symptoms Allergies: Coded Allergies: No Known Allergies (Unverified , 06/05/19) All Systems: reviewed and negative except above Subjective fever better. per staff eating better. no sob. elevated wbc. on hypotonic ivf. confused. cxr with increased left sided infiltrate Objective Last 24 Hour Vital Signs Date Time Temp Pulse Resp B/P (MAP) Pulse Ox O2 Delivery O2 Flow Rate FiO2 09/25/19 09:08 64 118/69 09/25/19 09:08 118/69 09/25/19 08:00 97.8 64 19 118/69 (85) 94 09/25/19 05:11 114/53 5/10/20 04:40 98.0 68 20 114/53 (73) 97 09/24/19 23:59 98.0 78 20 105/60 (75) 97 09/24/19 20:54 100/59 09/24/19 20:19 96.3 64 20 100/59 (73) 95 09/24/19 20:04 Room Air 09/24/19 16:00 96.3 78 18 111/53 (72) 94 09/24/19 15:56 Room Air 09/24/19 13:25 98/46 09/24/19 12:00 96.3 73 18 98/46 (63) 93 Intake and Output 09/24/19 09/25/19 19:00 07:00 Intake Total 1427.5 ml 1335.0 ml Output Total 300 ml 400 ml Balance 1127.5 ml 935.0 ml IV Total 1427.5 ml 1335.0 ml Output Urine Total 300 ml 400 ml # Voids 1 Laboratory Tests 09/24/19 13:50: Urine Color Pale yellow, Urine Appearance Clear, Urine pH 5, Urine Specific [place] 1.010, Urine Protein 2+H, Urine Glucose (UA) Negative, Urine Ketones Negative, Urine Blood 1+H, Urine Nitrite Negative, Urine Bilirubin Negative, Urine Urobilinogen Normal, Urine Leukocyte Esterase Negative, Urine RBC 0-2H, Urine WBC 0, Urine Squamous Epithelial Cells None, Urine Bacteria Few 09/25/19 07:50: White Blood Count 17.6H, Red Blood Count 3.05L, Hemoglobin 8.8L, Hematocrit 26.0L, Mean Corpuscular Volume 85, Mean Corpuscular Hemoglobin 28.8, Mean Corpuscular Hemoglobin Concent 33.8, Red Cell Distribution Width 12.9, Platelet Count 244, Mean Platelet Volume 6.4L, Neutrophils (%) (Auto) , Lymphocytes (%) ( Auto) , Monocytes (%) (Auto) , Eosinophils (%) (Auto) , Basophils (%) (Auto) , Neutrophils % (Manual) [Pending], Lymphocytes % (Manual) [Pending], Platelet Estimate [Pending], Platelet Morphology [Pending], Sodium Level 140, Potassium Level 3.4L, Chloride Level 104, Carbon Dioxide Level 24, Anion Gap 12, Blood Urea Nitrogen 79H, Creatinine 2.7H, Estimat Glomerular Filtration Rate 22.6, Glucose Level 103, Uric Acid 7.5H, Calcium Level 7.4L, Phosphorus Level 3.3, Magnesium Level 2.5H, Total Bilirubin 0.3, Aspartate Amino Transf (AST/SGOT) 57H , Alanine Aminotransferase (ALT/SGPT) 38, Alkaline Phosphatase 104, C-Reactive Protein, Quantitative 21.1H, Pro-B-Type Natriuretic Peptide 7819H, Total Protein 6.1L, Albumin 1.4L, Globulin 4.7, Albumin/Globulin Ratio 0.3L Height (Feet): 5 Height (Inches): 6.00 Weight (Pounds): 91 Objective General Appearance: WD/WN, alert, confused Neck: supple Cardiovascular: regular rhythm Respiratory/Chest: rhonchi - bilaterally Abdomen: normal bowel sounds, non tender, soft, no organomegaly, no mass Edema: no edema noted Arm (L), no edema noted Arm (R), no edema noted Leg (L), no edema noted Leg (R), no edema noted Pedal (L), no edema noted Pedal (R), no edema noted Generalized 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
[2019-09-25] MEDS: D5NS 1,000 ML IV SCH (11:48)
[2019-09-25 12:00] VITALS: BP 115/67
--- NOTE | 2019-09-25 12:17 | Urology Progress Note ---
Assessment/Plan Status: stable, progressing, not improved Assessment/Plan: 1. Gross hematuria hx, presumably secondary to Doshi trauma, resolved. 2. BPH. 3. Urinary retention. 4. Neurogenic bladder. 5. Pyuria?UTI/colonized. 6. Proteinuria. 7. Renal insufficiency, which appears to be acute on chronic. 8. Rule out urethral stricture. monitor clinically on proscar and flomax back on abx restraints PRN cysto at some point renal imaging? COVID (+) hx doshi back indwelling, placed 09/23 hand irrigated and do PRN monitor for bleeding on lovenox, hold PRN voiding trial later Subjective Allergies: Coded Allergies: No Known Allergies (Unverified , 06/05/19) Subjective all noted, appears more alert doshi draining well Objective Last 24 Hour Vital Signs Date Time Temp Pulse Resp B/P (MAP) Pulse Ox O2 Delivery O2 Flow Rate FiO2 09/25/19 09:08 64 118/69 09/25/19 09:08 118/69 09/25/19 09:00 Room Air 09/25/19 08:00 97.8 64 19 118/69 (85) 94 09/25/19 05:11 114/53 09/25/19 04:40 98.0 68 20 114/53 (73) 97 09/24/19 23:59 98.0 78 20 105/60 (75) 97 09/24/19 20:54 100/59 09/24/19 20:19 96.3 64 20 100/59 (73) 95 09/24/19 20:04 Room Air 09/24/19 16:00 96.3 78 18 111/53 (72) 94 09/24/19 15:56 Room Air 09/24/19 13:25 98/46 Intake and Output 09/24/19 09/25/19 19:00 07:00 Intake Total 1427.5 ml 1335.0 ml Output Total 300 ml 400 ml Balance 1127.5 ml 935.0 ml IV Total 1427.5 ml 1335.0 ml Output Urine Total 300 ml 400 ml # Voids 1 Microbiology Date/Time Source Procedure Growth Status 09/18/19 16:15 Nasopharynx Coronavirus COVID-19 PCR ([facility]) - Final Complete 09/20/19 18:31 Urine,Clean Catch Urine Culture - Final Morganella Morg Spp Morganii Enterococcus Faecalis - Vre Mixed Urogenital Contaminants Complete 08/06/19 04:45 Rectum VRE Culture - Final NO VANCOMYCIN RESISTANT ENTEROCOCCUS ... Complete Current Medications Medications (Trade) Dose Ordered Sig/Kristine Route PRN Reason Start Time Stop Time Status Last Admin Dose Admin Acetaminophen (Tylenol) 650 mg Q4H PRN ORAL Fever 09/09/19 22:30 10/09/19 22:29 09/22/19 05:16 Acetaminophen (Tylenol) 650 mg Q4H PRN RECTAL Mild Pain (Pain Scale 1-3) 09/22/19 09:45 10/22/19 09:44 09/23/19 16:58 Amlodipine Besylate (Norvasc) 5 mg DAILY ORAL 09/25/19 09:00 10/25/19 08:59 09/25/19 09:08 Ascorbic Acid (Vitamin C) 250 mg DAILY ORAL 09/10/19 09:00 10/10/19 08:59 09/25/19 09:08 Bisacodyl (Dulcolax) 10 mg DAILYPRN PRN RECTAL Constipation 09/18/19 17:00 12/17/19 16:59 Calcitonin [place] (Miacalcin) 1 sprays DAILY NASAL 09/12/19 13:00 12/11/19 12:59 09/25/19 09:08 Dextrose/Sodium Chloride 1,000 ml @ 75 mls/hr [id number] IV 09/25/19 10:45 10/25/19 10:44 09/25/19 11:48 Enoxaparin Sodium (Lovenox) 60 mg DAILY SUBQ 09/24/19 09:00 12/23/19 08:59 09/25/19 09:10 Famotidine (Pepcid) 20 mg DAILY ORAL 09/10/19 09:00 12/09/19 08:59 09/25/19 09:08 Finasteride (Proscar) 5 mg DAILY ORAL 09/10/19 09:00 11/05/19 15:44 09/25/19 09:08 Hydralazine HCl (Apresoline) 25 mg Q8HR ORAL 09/24/19 14:00 12/11/19 21:59 Isosorbide Mononitrate (Imdur) 60 mg DAILY ORAL 09/21/19 09:00 10/21/19 08:59 09/25/19 09:08 Multivitamins (Multivitamins) 1 tab DAILY ORAL 09/10/19 09:00 10/10/19 08:59 09/25/19 09:08 Piperacillin Sod/ Tazobactam Sod 3.375 gm/Sodium Chloride 110 ml @ 27.5 mls/hr Q12H IVPB 09/21/19 18:00 09/28/19 17:59 09/25/19 05:10 Tamsulosin HCl (Flomax) 0.4 mg BID ORAL 09/12/19 12:00 10/06/19 20:59 09/25/19 09:08 Valproic Acid (Depakene) 250 mg EVERY 12 HOURS NG 09/09/19 21:00 10/22/19 20:59 09/25/19 09:08 Laboratory Tests 09/24/19 13:50: Urine Color Pale yellow, Urine Appearance Clear, Urine pH 5, Urine Specific [place] 1.010, Urine Protein 2+H, Urine Glucose (UA) Negative, Urine Ketones Negative, Urine Blood 1+H, Urine Nitrite Negative, Urine Bilirubin Negative, Urine Urobilinogen Normal, Urine Leukocyte Esterase Negative, Urine RBC 0-2H, Urine WBC 0, Urine Squamous Epithelial Cells None, Urine Bacteria Few 09/25/19 07:50: White Blood Count 17.6H, Red Blood Count 3.05L, Hemoglobin 8.8L, Hematocrit 26.0L, Mean Corpuscular Volume 85, Mean Corpuscular Hemoglobin 28.8, Mean Corpuscular Hemoglobin Concent 33.8, Red Cell Distribution Width 12.9, Platelet Count 244, Mean Platelet Volume 6.4L, Neutrophils (%) (Auto) , Lymphocytes (%) ( Auto) , Monocytes (%) (Auto) , Eosinophils (%) (Auto) , Basophils (%) (Auto) , Differential Total Cells Counted 100, Neutrophils % (Manual) 93H, Lymphocytes % (Manual) 4L, Monocytes % (Manual) 2, Eosinophils % (Manual) 0, Basophils % ( Manual) 0, Band Neutrophils 1, Platelet Estimate Adequate, Platelet Morphology Normal, Hypochromasia 1+, Sodium Level 140, Potassium Level 3.4L, Chloride Level 104, Carbon Dioxide Level 24, Anion Gap 12, Blood Urea Nitrogen 79H, Creatinine 2.7H, Estimat Glomerular Filtration Rate 22.6, Glucose Level 103, Uric Acid 7.5H, Calcium Level 7.4L, Phosphorus Level 3.3, Magnesium Level 2.5H, Total Bilirubin 0.3, Aspartate Amino Transf (AST/SGOT) 57H, Alanine Aminotransferase (ALT/SGPT) 38, Alkaline Phosphatase 104, C-Reactive Protein, Quantitative 21.1H, Pro-B-Type Natriuretic Peptide 7819H, Total Protein 6.1L, Albumin 1.4L, Globulin 4.7, Albumin/Globulin Ratio 0.3L Height (Feet): 5 Height (Inches): 6.00 Weight (Pounds): 91 Objective exam stable abdomen soft doshi in place Miki Calzada MD September 25, 2019 12:17
--- NOTE | 2019-09-25 15:44 | Infectious Diseases Prog Note ---
Assessment/Plan Assessment/Plan A 1. COVID 19 pneumonia Positive on 4.14.20, 4.16.20, 09/06, 09/11, 5/3 Negative on 09/13 2. New gram negative urinary tract infection 3. Renal failure. 4. hypertension 5. cardiomyopathy P 1. Continue Zosyn 2. will follow up COVID test 3. Continue isolation Subjective ROS Limited/Unobtainable: Yes Allergies: Coded Allergies: No Known Allergies (Unverified , 06/05/19) Objective Vital Signs Last 24 Hour Vital Signs Date Time Temp Pulse Resp B/P (MAP) Pulse Ox O2 Delivery O2 Flow Rate FiO2 09/25/19 13:14 115/67 09/25/19 12:00 97.9 68 18 115/67 (83) 99 09/25/19 09:08 64 118/69 09/25/19 09:08 118/69 09/25/19 09:00 Room Air 09/25/19 08:00 97.8 64 19 118/69 (85) 94 09/25/19 05:11 114/53 09/25/19 04:40 98.0 68 20 114/53 (73) 97 09/24/19 23:59 98.0 78 20 105/60 (75) 97 09/24/19 20:54 100/59 09/24/19 20:19 96.3 64 20 100/59 (73) 95 09/24/19 20:04 Room Air 09/24/19 16:00 96.3 78 18 111/53 (72) 94 09/24/19 15:56 Room Air Height (Feet): 5 Height (Inches): 6.00 Weight (Pounds): 91 General Appearance: no acute distress HEENT: mucous membranes moist Cardiovascular: normal rate Abdomen: soft, non tender Extremities: no edema Neurologic/Psychiatric: alert, disoriented Laboratory Tests Test 09/25/19 07:50 White Blood Count 17.6 K/UL (4.8-10.8) H Red Blood Count 3.05 M/UL (4.70-6.10) L Hemoglobin 8.8 G/DL (14.2-18.0) L Hematocrit 26.0 % (42.0-52.0) L Mean Corpuscular Volume 85 FL (80-99) Mean Corpuscular Hemoglobin 28.8 PG (27.0-31.0) Mean Corpuscular Hemoglobin Concent 33.8 G/DL (32.0-36.0) Red Cell Distribution Width 12.9 % (11.6-14.8) Platelet Count 244 K/UL (150-450) Mean Platelet Volume 6.4 FL (6.5-10.1) L Neutrophils (%) (Auto) % (45.0-75.0) Lymphocytes (%) (Auto) % (20.0-45.0) Monocytes (%) (Auto) % (1.0-10.0) Eosinophils (%) (Auto) % (0.0-3.0) Basophils (%) (Auto) % (0.0-2.0) Differential Total Cells Counted 100 Neutrophils % (Manual) 93 % (45-75) H Lymphocytes % (Manual) 4 % (20-45) L Monocytes % (Manual) 2 % (1-10) Eosinophils % (Manual) 0 % (0-3) Basophils % (Manual) 0 % (0-2) Band Neutrophils 1 % (0-8) Platelet Estimate Adequate Platelet Morphology Normal Hypochromasia 1+ Sodium Level 140 MMOL/L (136-145) Potassium Level 3.4 MMOL/L (3.5-5.1) L Chloride Level 104 MMOL/L (98-107) Carbon Dioxide Level 24 MMOL/L (21-32) Anion Gap 12 mmol/L (5-15) Blood Urea Nitrogen 79 mg/dL (7-18) H Creatinine 2.7 MG/DL (0.55-1.30) H Estimat Glomerular Filtration Rate 22.6 mL/min (>60) Glucose Level 103 MG/DL (74-106) Uric Acid 7.5 MG/DL (2.6-7.2) H Calcium Level 7.4 MG/DL (8.5-10.1) L Phosphorus Level 3.3 MG/DL (2.5-4.9) Magnesium Level 2.5 MG/DL (1.8-2.4) H Total Bilirubin 0.3 MG/DL (0.2-1.0) Aspartate Amino Transf (AST/SGOT) 57 U/L (15-37) H Alanine Aminotransferase (ALT/SGPT) 38 U/L (12-78) Alkaline Phosphatase 104 U/L (46-116) C-Reactive Protein, Quantitative 21.1 mg/dL (0.00-0.90) H Pro-B-Type Natriuretic Peptide 7819 pg/mL (0-125) H Total Protein 6.1 G/DL (6.4-8.2) L Albumin 1.4 G/DL (3.4-5.0) L Globulin 4.7 g/dL Albumin/Globulin Ratio 0.3 (1.0-2.7) L Current Medications Medications (Trade) Dose Ordered Sig/Kristine Route PRN Reason Start Time Stop Time Status Last Admin Dose Admin Acetaminophen (Tylenol) 650 mg Q4H PRN ORAL Fever 09/09/19 22:30 10/09/19 22:29 09/22/19 05:16 Acetaminophen (Tylenol) 650 mg Q4H PRN RECTAL Mild Pain (Pain Scale 1-3) 09/22/19 09:45 10/22/19 09:44 09/23/19 16:58 Amlodipine Besylate (Norvasc) 5 mg DAILY ORAL 09/25/19 09:00 10/25/19 08:59 09/25/19 09:08 Ascorbic Acid (Vitamin C) 250 mg DAILY ORAL 09/10/19 09:00 10/10/19 08:59 09/25/19 09:08 Bisacodyl (Dulcolax) 10 mg DAILYPRN PRN RECTAL Constipation 09/18/19 17:00 12/17/19 16:59 Calcitonin [place] (Miacalcin) 1 sprays DAILY NASAL 09/12/19 13:00 12/11/19 12:59 09/25/19 09:08 Dextrose/Sodium Chloride 1,000 ml @ 75 mls/hr [id number] IV 09/25/19 10:45 10/25/19 10:44 09/25/19 11:48 Enoxaparin Sodium (Lovenox) 60 mg DAILY SUBQ 09/24/19 09:00 12/23/19 08:59 09/25/19 09:10 Famotidine (Pepcid) 20 mg DAILY ORAL 09/10/19 09:00 12/09/19 08:59 09/25/19 09:08 Finasteride (Proscar) 5 mg DAILY ORAL 09/10/19 09:00 11/05/19 15:44 09/25/19 09:08 Hydralazine HCl (Apresoline) 25 mg Q8HR ORAL 09/24/19 14:00 12/11/19 21:59 Isosorbide Mononitrate (Imdur) 60 mg DAILY ORAL 09/21/19 09:00 10/21/19 08:59 09/25/19 09:08 Multivitamins (Multivitamins) 1 tab DAILY ORAL 09/10/19 09:00 10/10/19 08:59 09/25/19 09:08 Piperacillin Sod/ Tazobactam Sod 3.375 gm/Sodium Chloride 110 ml @ 27.5 mls/hr Q12H IVPB 09/21/19 18:00 09/28/19 17:59 09/25/19 05:10 Tamsulosin HCl (Flomax) 0.4 mg BID ORAL 09/12/19 12:00 10/06/19 20:59 09/25/19 09:08 Valproic Acid (Depakene) 250 mg EVERY 12 HOURS NG 09/09/19 21:00 10/22/19 20:59 09/25/19 09:08 Cr Mauro MD September 25, 2019 15:44
[2019-09-25 16:00] VITALS: BP 121/72
--- NOTE | 2019-09-25 17:12 | Surgery Progress Note ---
Surgery Progress Note Subjective Additional Comments no acute events ill appearing labs noted exam unchanged Objective Last 24 Hour Vital Signs Date Time Temp Pulse Resp B/P (MAP) Pulse Ox O2 Delivery O2 Flow Rate FiO2 09/25/19 16:00 98.0 64 19 121/72 (88) 97 09/25/19 13:14 115/67 09/25/19 12:00 97.9 68 18 115/67 (83) 99 09/25/19 09:08 64 118/69 09/25/19 09:08 118/69 09/25/19 09:00 Room Air 09/25/19 08:00 97.8 64 19 118/69 (85) 94 09/25/19 05:11 114/53 09/25/19 04:40 98.0 68 20 114/53 (73) 97 09/24/19 23:59 98.0 78 20 105/60 (75) 97 09/24/19 20:54 100/59 09/24/19 20:19 96.3 64 20 100/59 (73) 95 09/24/19 20:04 Room Air I&O Intake and Output 09/24/19 09/25/19 19:00 07:00 Intake Total 1427.5 ml 1335.0 ml Output Total 300 ml 400 ml Balance 1127.5 ml 935.0 ml IV Total 1427.5 ml 1335.0 ml Output Urine Total 300 ml 400 ml # Voids 1 Dressing: other Wound: other Drains: other Cardiovascular: RSR Respiratory: decreased breath sounds Abdomen: soft, non-tender, present bowel sounds Extremities: no cyanosis Laboratory Tests Test 09/25/19 07:50 White Blood Count 17.6 K/UL (4.8-10.8) H Red Blood Count 3.05 M/UL (4.70-6.10) L Hemoglobin 8.8 G/DL (14.2-18.0) L Hematocrit 26.0 % (42.0-52.0) L Mean Corpuscular Volume 85 FL (80-99) Mean Corpuscular Hemoglobin 28.8 PG (27.0-31.0) Mean Corpuscular Hemoglobin Concent 33.8 G/DL (32.0-36.0) Red Cell Distribution Width 12.9 % (11.6-14.8) Platelet Count 244 K/UL (150-450) Mean Platelet Volume 6.4 FL (6.5-10.1) L Neutrophils (%) (Auto) % (45.0-75.0) Lymphocytes (%) (Auto) % (20.0-45.0) Monocytes (%) (Auto) % (1.0-10.0) Eosinophils (%) (Auto) % (0.0-3.0) Basophils (%) (Auto) % (0.0-2.0) Differential Total Cells Counted 100 Neutrophils % (Manual) 93 % (45-75) H Lymphocytes % (Manual) 4 % (20-45) L Monocytes % (Manual) 2 % (1-10) Eosinophils % (Manual) 0 % (0-3) Basophils % (Manual) 0 % (0-2) Band Neutrophils 1 % (0-8) Platelet Estimate Adequate Platelet Morphology Normal Hypochromasia 1+ Sodium Level 140 MMOL/L (136-145) Potassium Level 3.4 MMOL/L (3.5-5.1) L Chloride Level 104 MMOL/L (98-107) Carbon Dioxide Level 24 MMOL/L (21-32) Anion Gap 12 mmol/L (5-15) Blood Urea Nitrogen 79 mg/dL (7-18) H Creatinine 2.7 MG/DL (0.55-1.30) H Estimat Glomerular Filtration Rate 22.6 mL/min (>60) Glucose Level 103 MG/DL (74-106) Uric Acid 7.5 MG/DL (2.6-7.2) H Calcium Level 7.4 MG/DL (8.5-10.1) L Phosphorus Level 3.3 MG/DL (2.5-4.9) Magnesium Level 2.5 MG/DL (1.8-2.4) H Total Bilirubin 0.3 MG/DL (0.2-1.0) Aspartate Amino Transf (AST/SGOT) 57 U/L (15-37) H Alanine Aminotransferase (ALT/SGPT) 38 U/L (12-78) Alkaline Phosphatase 104 U/L (46-116) C-Reactive Protein, Quantitative 21.1 mg/dL (0.00-0.90) H Pro-B-Type Natriuretic Peptide 7819 pg/mL (0-125) H Total Protein 6.1 G/DL (6.4-8.2) L Albumin 1.4 G/DL (3.4-5.0) L Globulin 4.7 g/dL Albumin/Globulin Ratio 0.3 (1.0-2.7) L Plan Problems: (1) Dehydration (2) Anemia (3) UTI (urinary tract infection) (4) Falls frequently (5) Renal failure (ARF), acute on chronic (6) Encephalopathy due to metabolic factor or toxin (7) CHF (congestive heart failure) (8) Gross hematuria (9) Deep tissue injury Assessment & Plan: Pt presented on admission with multiple pressure injuries which were resolving. 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 Base of injury is purple with maroon borders . Surrounding non-blanching erythema to R and Gluteal cheeks. Scrotum is erythematous. R and L heels are boggy but each area blanchable. stable [facility] nursing care will cont to follow and adjust care plan Tx.Plan: Apply Moisture Barrier Paste to Sacrum. Cover with Optifoam drsg. Change every 3 days and prn. Apply Moisture Barrier Paste to bilat groin and scrotum with each incontinence care. Apply Cavilon Skin Barrier to both heels. Cover each heel with Optifoam drsg. Change every 7 days and prn. Reposition at least every 2hours or as tolerated. Off-load heels with pillow. APM/MEI Mattress overlay. (10) Malnutrition Assessment & Plan: DAILY ESTIMATED NEEDS: Needs based on Wound, 66.8kg 28-33 kcals/kg 4614-9513 total kcals 1.25-1.5 g protein/kg 84-100 g total protein 25-30 mL/kg 7659-2697 total fluid mLs NUTRITION DIAGNOSIS: Swallowing difficulty r/t dysphagia and ams as evidenced by s/p MANAGER SMALL BUSINESS eval, poor cognition, pt on liquify puree texture diet w/ HTL, now with poor/variable intake, high aspiration risk. CURRENT DIET: Liquify puree HTL Regular PO DIET RECOMMENDATIONS: Maintain Regular diet, texture per MANAGER SMALL BUSINESS ENTERAL NUTRITION RECOMMENDATIONS: CONSULT RD IF NON ORAL FEEDS ARE PART OF PLAN OF CARE ADDITIONAL RECOMMENDATIONS: 1) Ensure Enlive TID w/ meals (350kcal/20g prot per bottle) 2) RECALIBRATE BEDSCALE WT: BIG DISCREPANCY IN WTS initial EMR wt: 160# vs Bed scale wt: 147#-> EMR wt now reads 88.8# 3) CONSIDER APPETITE STIMULANT- prolonged poor PO; NGT feeds if part POC 4) Rec daily bowel regimen: now w/ bm 09/18 4) Wound care: MVI 1 tab QD + Vit C 250mg QD+ Jacob BID 5) Monitor lytes, hydration status, replete as needed-> on replacement + D5 POLST: NO TUBE FEEDINGS AND DNR PER PATIENT. PER HIS BOTTOM STAINER FRIEND, BOTTOM STAINER CANNOT MAKE DECISIONS FOR HIM. HE SAID HIS PARTNER LATE LAST YEAR AND HE HAS BEEN AGITATED FOR 3 MONTHS (TAKING DIFFERENT PSYCH MEDS).Pt being seen by PSYCHIATRIST. PLOF: Previously lived at [facility] and consumed regular texture diet and thin liquids w/ no swallowing difficulties per fire investigation lieutenant. VITALS on 4 L/min via nasal cannula HR: 102 bpm RR: 44 bpm Temp: 102.6 SP02: 97% Pt w/ ongoing poor PO intake of current diet Liquified Puree ([place]-Like Soup) with [place] Thick Liquids. 09/20/19 B: 50% L: 50% D: 50% 09/21/19 B: 50% L: 50% D: 0% 09/22/19 B: 10% L: 10% D: 0% RN reports when attempting to administer Pt meds crushed w/ apple sauce in AM, Pt's swallow appeared incomplete and poor, w/ remaining meds+apple sauce mixture remaining throughout oral cavity. (11) Severe protein-calorie malnutrition Sai Aaron September 25, 2019 17:12
--- NOTE | 2019-09-25 17:51 | NUR ---
NURSE NOTES: COVID-19 swap done;waiting for results.
--- NOTE | 2019-09-25 19:08 | NUR ---
HAND-OFF: Report given to LUIS FERNANDO Allen.
--- NOTE | 2019-09-25 19:25 | NUR ---
NURSE NOTES: Received patient awake, confused, follows simple command. No shortness of breath noted. Kept clean and dry.
[2019-09-25 20:32] VITALS: BP 137/57
--- NOTE | 2019-09-25 23:59 | Progress Note ---
DATE: 09/25/2019 CARDIOLOGY PROGRESS NOTE SUBJECTIVE: Intake fair. Remains on hypotonic IV fluids. Still with cough and congestion. Frequent infusions. PHYSICAL EXAMINATION: VITAL SIGNS: Blood pressure 118/69, heart rate 64, respiratory rate 19, and afebrile. LUNGS: Bilateral breath sounds with rhonchi. CARDIAC: Irregularly irregular rhythm. Normal S1 and S2. No new murmur. ABDOMEN: Soft. EXTREMITIES: No edema. LABORATORY DATA: White count 17.6 and hemoglobin 8.8. Sodium 140, potassium 3.4, bicarb 24, BUN 79, and creatinine 2.7. Magnesium 2.5. Pro-natriuretic peptide 7800. IMPRESSION: 1. Atrial fibrillation, rate controlled. 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 3. Metabolic encephalopathy. 4. Valvular cardiomyopathy. 5. Mitral regurgitation, status post repair. 6. Dysphagia. 7. Severe protein-calorie malnutrition. 8. COVID-19 pneumonia. 9. Metabolic encephalopathy. 10. Toxic encephalopathy. PLAN: 1. Continue hydration and electrolyte replacement as needed. 2. Antiviral and antimicrobials as needed. 3. Maintain current cardiovascular regimen with titration of antihypertensives based on clinical parameters. 4. Decision for ____ supplemental hydration and nutrition is being addressed. 5. We will follow. Gamaliel Salas M.D. DR: Meagan JOB#: [id number] CC:
[2019-09-26] MEDS: D5NS 1,000 ML IV SCH ×2 (00:05→04:00)
[2019-09-26 00:14] VITALS: BP 127/55
[2019-09-26 04:00] VITALS: BP 117/46
[2019-09-26] MEDS: Zosyn 3.375gm in NS 110ml IVPB SCH ×2 (04:00→17:27)
[2019-09-26] MEDS: HydrALAZINE 50mg tab ORAL SCH ×2 (06:00→13:06)
--- NOTE | 2019-09-26 07:14 | NUR ---
HAND-OFF: Report given to Dyan Green RN.
--- NOTE | 2019-09-26 07:16 | NUR ---
NURSE NOTES: Patient awake, confused, non-verbal; on nasal cannula 4 Liters, no sing of distress and shortness of breath; no sing of chest pain; Trevino in place, drains yellow urine; side rails up x2, breaks engaged, bed at lowest position, bed alarm on; call light within reach; will keep monitoring.
[2019-09-26 07:38] LABS: ANION GAP 17 mmol/L (5-15); BLOOD UREA NITROGEN 83 mg/dL (7-18); CALCIUM 7.1 MG/DL (8.5-10.1); CARBON DIOXIDE 19 MMOL/L (21-32); CHLORIDE 104 MMOL/L (98-107); CREATININE 2.6 MG/DL (0.55-1.30); POTASSIUM 3.3 MMOL/L (3.5-5.1); SODIUM 140 MMOL/L (136-145)
[2019-09-26 08:00] VITALS: BP 90/54
[2019-09-26] MEDS: Ascorbic Acid 500mg tab ORAL SCH (08:49)
[2019-09-26] MEDS: Tamsulosin 0.4mg cap ORAL SCH ×2 (08:49→17:27)
[2019-09-26] MEDS: Imdur 30mg tab ORAL SCH (08:49)
[2019-09-26] MEDS: Valproic Acid 250mg/5ml Liquid NG SCH (08:49)
[2019-09-26] MEDS: Enoxaparin 60mg Inj SUBQ SCH (08:51)
--- NOTE | 2019-09-26 09:03 | Urology Progress Note ---
Assessment/Plan Status: stable, progressing, not improved Assessment/Plan: 1. Gross hematuria hx, presumably secondary to Doshi trauma, resolved. 2. BPH. 3. Urinary retention. 4. Neurogenic bladder. 5. Pyuria?UTI/colonized. 6. Proteinuria. 7. Renal insufficiency, which appears to be acute on chronic. 8. Rule out urethral stricture. monitor clinically on proscar and flomax back on abx restraints PRN cysto at some point renal imaging? COVID (+) hx doshi back indwelling, placed 09/23 hand irrigated and do PRN monitor for bleeding on lovenox, hold PRN voiding trial later Subjective Allergies: Coded Allergies: No Known Allergies (Unverified , 06/05/19) Subjective all noted, appears more alert doshi draining well Objective Last 24 Hour Vital Signs Date Time Temp Pulse Resp B/P (MAP) Pulse Ox O2 Delivery O2 Flow Rate FiO2 09/26/19 08:49 90/54 09/26/19 08:00 97.0 71 20 90/54 (66) 92 09/26/19 06:00 117/46 09/26/19 04:00 97.1 72 26 117/46 (69) 90 09/26/19 00:14 96.9 84 30 127/55 (79) 91 09/25/19 20:47 137/57 09/25/19 20:32 96.9 84 28 137/57 (83) 90 09/25/19 20:07 Room Air 09/25/19 16:00 98.0 64 19 121/72 (88) 97 09/25/19 13:14 115/67 09/25/19 12:00 97.9 68 18 115/67 (83) 99 09/25/19 09:08 64 118/69 09/25/19 09:08 118/69 Intake and Output 09/25/19 09/26/19 19:00 07:00 Intake Total 457.5 ml 465.0 ml Output Total 1400 ml 300 ml Balance -942.5 ml 165.0 ml IV Total 457.5 ml 465.0 ml Output Urine Total 1400 ml 300 ml # Bowel Movements 1 Microbiology Date/Time Source Procedure Growth Status 09/18/19 16:15 Nasopharynx Coronavirus COVID-19 PCR (JOSÉ LUIS) - Final Complete 09/20/19 18:31 Urine,Clean Catch Urine Culture - Final Morganella Morg Spp Morganii Enterococcus Faecalis - Vre Mixed Urogenital Contaminants Complete 08/06/19 04:45 Rectum VRE Culture - Final NO VANCOMYCIN RESISTANT ENTEROCOCCUS ... Complete Current Medications Medications (Trade) Dose Ordered Sig/Kristine Route PRN Reason Start Time Stop Time Status Last Admin Dose Admin Acetaminophen (Tylenol) 650 mg Q4H PRN ORAL Fever 09/09/19 22:30 10/09/19 22:29 09/22/19 05:16 Acetaminophen (Tylenol) 650 mg Q4H PRN RECTAL Mild Pain (Pain Scale 1-3) 09/22/19 09:45 10/22/19 09:44 09/23/19 16:58 Amlodipine Besylate (Norvasc) 5 mg DAILY ORAL 09/25/19 09:00 10/25/19 08:59 09/25/19 09:08 Ascorbic Acid (Vitamin C) 250 mg DAILY ORAL 09/10/19 09:00 10/10/19 08:59 09/26/19 08:49 Bisacodyl (Dulcolax) 10 mg DAILYPRN PRN RECTAL Constipation 09/18/19 17:00 12/17/19 16:59 Calcit[address] [place] (Miacalcin) 1 sprays DAILY NASAL 09/12/19 13:00 12/11/19 12:59 09/26/19 08:50 Dextrose/Sodium Chloride 1,000 ml @ 75 mls/hr [id number] IV 09/25/19 10:45 10/25/19 10:44 09/26/19 04:00 Enoxaparin Sodium (Lovenox) 60 mg DAILY SUBQ 09/24/19 09:00 12/23/19 08:59 09/26/19 08:51 Famotidine (Pepcid) 20 mg DAILY ORAL 09/10/19 09:00 12/09/19 08:59 09/26/19 08:49 Finasteride (Proscar) 5 mg DAILY ORAL 09/10/19 09:00 11/05/19 15:44 09/26/19 08:50 Hydralazine HCl (Apresoline) 25 mg Q8HR ORAL 09/24/19 14:00 12/11/19 21:59 09/25/19 20:47 Isosorbide Mononitrate (Imdur) 60 mg DAILY ORAL 09/21/19 09:00 10/21/19 08:59 09/26/19 08:49 Multivitamins (Multivitamins) 1 tab DAILY ORAL 09/10/19 09:00 10/10/19 08:59 09/26/19 08:50 Piperacillin Sod/ Tazobactam Sod 3.375 gm/Sodium Chloride 110 ml @ 27.5 mls/hr Q12H IVPB 09/21/19 18:00 09/28/19 17:59 09/26/19 04:00 Tamsulosin HCl (Flomax) 0.4 mg BID ORAL 09/12/19 12:00 10/06/19 20:59 09/26/19 08:49 Valproic Acid (Depakene) 250 mg EVERY 12 HOURS NG 09/09/19 21:00 10/22/19 20:59 09/26/19 08:49 Laboratory Tests 09/26/19 06:20: Sodium Level 140, Potassium Level 3.3L, Chloride Level 104, Carbon Dioxide Level 19L, Anion Gap 17H, Blood Urea Nitrogen 83H, Creatinine 2.6H, Estimat Glomerular Filtration Rate 23.6, Glucose Level 93, Calcium Level 7.1L Height (Feet): 5 Height (Inches): 6.00 Weight (Pounds): 91 Objective exam stable abdomen soft doshi in place Miki Calzada MD September 26, 2019 09:03
--- NOTE | 2019-09-26 09:49 | NUR ---
NURSE NOTES: I called [facility] to send me Mitten for patient's hand; waiting for mitten.
--- NOTE | 2019-09-26 11:36 | Infectious Diseases Prog Note ---
Assessment/Plan Assessment/Plan antibiotics : zosyn A 1. COVID 19 pneumonia s/p ivermectin 5.9.20 test + on 4.14.20, 4.16.20, 4.22.20, 4.27.20, 5.3.20 test negative 4.29.20 2. morganella, streptococcus urinary tract infection 3. Renal failure. 4. hypertension 5. cardiomyopathy 6. leucocytosis improving 7. fever improving P 1. continue zosyn 1 more day 2. will follow up cultures 3. Continue isolation Subjective ROS Limited/Unobtainable: Yes Allergies: Coded Allergies: No Known Allergies (Unverified , 06/05/19) Objective Vital Signs Last 24 Hour Vital Signs Date Time Temp Pulse Resp B/P (MAP) Pulse Ox O2 Delivery O2 Flow Rate FiO2 09/26/19 09:00 Room Air 09/26/19 08:49 90/54 09/26/19 08:00 97.0 71 20 90/54 (66) 92 09/26/19 06:00 117/46 09/26/19 04:00 97.1 72 26 117/46 (69) 90 09/26/19 00:14 96.9 84 30 127/55 (79) 91 09/25/19 20:47 137/57 09/25/19 20:32 96.9 84 28 137/57 (83) 90 09/25/19 20:07 Room Air 09/25/19 16:00 98.0 64 19 121/72 (88) 97 09/25/19 13:14 115/67 09/25/19 12:00 97.9 68 18 115/67 (83) 99 Height (Feet): 5 Height (Inches): 6.00 Weight (Pounds): 91 Laboratory Tests Test 09/26/19 06:20 Sodium Level 140 MMOL/L (136-145) Potassium Level 3.3 MMOL/L (3.5-5.1) L Chloride Level 104 MMOL/L (98-107) Carbon Dioxide Level 19 MMOL/L (21-32) L Anion Gap 17 mmol/L (5-15) H Blood Urea Nitrogen 83 mg/dL (7-18) H Creatinine 2.6 MG/DL (0.55-1.30) H Estimat Glomerular Filtration Rate 23.6 mL/min (>60) Glucose Level 93 MG/DL (74-106) Calcium Level 7.1 MG/DL (8.5-10.1) L Current Medications Medications (Trade) Dose Ordered Sig/Kristine Route PRN Reason Start Time Stop Time Status Last Admin Dose Admin Acetaminophen (Tylenol) 650 mg Q4H PRN ORAL Fever 09/09/19 22:30 10/09/19 22:29 09/22/19 05:16 Acetaminophen (Tylenol) 650 mg Q4H PRN RECTAL Mild Pain (Pain Scale 1-3) 09/22/19 09:45 10/22/19 09:44 09/23/19 16:58 Amlodipine Besylate (Norvasc) 5 mg DAILY ORAL 09/25/19 09:00 10/25/19 08:59 09/25/19 09:08 Ascorbic Acid (Vitamin C) 250 mg DAILY ORAL 09/10/19 09:00 10/10/19 08:59 09/26/19 08:49 Bisacodyl (Dulcolax) 10 mg DAILYPRN PRN RECTAL Constipation 09/18/19 17:00 12/17/19 16:59 Calcitonin [place] (Miacalcin) 1 sprays DAILY NASAL 09/12/19 13:00 12/11/19 12:59 09/26/19 08:50 Dextrose/Sodium Chloride 1,000 ml @ 75 mls/hr [id number] IV 09/25/19 10:45 10/25/19 10:44 09/26/19 04:00 Enoxaparin Sodium (Lovenox) 60 mg DAILY SUBQ 09/24/19 09:00 12/23/19 08:59 09/26/19 08:51 Famotidine (Pepcid) 20 mg DAILY ORAL 09/10/19 09:00 12/09/19 08:59 09/26/19 08:49 Finasteride (Proscar) 5 mg DAILY ORAL 09/10/19 09:00 11/05/19 15:44 09/26/19 08:50 Hydralazine HCl (Apresoline) 25 mg Q8HR ORAL 09/24/19 14:00 12/11/19 21:59 09/25/19 20:47 Isosorbide Mononitrate (Imdur) 60 mg DAILY ORAL 09/21/19 09:00 10/21/19 08:59 09/26/19 08:49 Multivitamins (Multivitamins) 1 tab DAILY ORAL 09/10/19 09:00 10/10/19 08:59 09/26/19 08:50 Piperacillin Sod/ Tazobactam Sod 3.375 gm/Sodium Chloride 110 ml @ 27.5 mls/hr Q12H IVPB 09/21/19 18:00 09/28/19 17:59 09/26/19 04:00 Tamsulosin HCl (Flomax) 0.4 mg BID ORAL 09/12/19 12:00 10/06/19 20:59 09/26/19 08:49 Valproic Acid (Depakene) 250 mg EVERY 12 HOURS NG 09/09/19 21:00 10/22/19 20:59 09/26/19 08:49 Gonzalez Stephens MD September 26, 2019 11:36
[2019-09-26 12:00] VITALS: BP 126/71
--- NOTE | 2019-09-26 12:15 | Nephrology Progress Note ---
Assessment/Plan Problem List: (1) Renal failure (ARF), acute on chronic Assessment: Serum creatinine stabilizing (2) Falls frequently (3) UTI (urinary tract infection) Assessment: and hematuria (4) Anemia (5) Dehydration (6) Encephalopathy due to metabolic factor or toxin (7) Hypercalcemia Assessment Frequent falls Acute renal failure with underlying dehydration Anemia, underlying etiology unclear UTI (urinary tract infection) Toxic metabolic encephalopathy Plan Status unchanged Creatinine 2.6 K supplements p.o. September 24: Today's chemistries pending Other data reviewed Continue as is September 23: Serum creatinine rising On D5W IV fluid Will place Trevino catheter again Monitor renal parameters and serum sodium Continue per ID Leukocytosis worsening Will adjust blood pressure medication with proper parameters Previously: 1 dose of Aredia for hypercalcemia was given before We will monitor calcium and phosphorus Previously Trial of 3% saline 250 cc for hyponatremia raised serum sodium from 129- to 134 Serum creatinine overall stable, it is 1.5 today Watch serum calcium, start calcitonin nasal spray for hypercalcemia Increase hydralazine dose for better blood pressure control Patient now COVID-19 positive Start D5W for hypernatremia as needed P.o. intake variable Oral potassium supplement as needed previously: Increase Flomax to twice daily Correct electrolytes as needed Transfusion as needed 2D echocardiogram ejection fraction 60% Kidney ultrasound pending results Monitor renal parameters Avoid nephrotoxics Antibiotics for UTI Continue per consultants Subjective ROS Limited/Unobtainable: No Constitutional: Reports: malaise Objective Objective Last 24 Hour Vital Signs Date Time Temp Pulse Resp B/P (MAP) Pulse Ox O2 Delivery O2 Flow Rate FiO2 09/26/19 09:00 Room Air 09/26/19 08:49 90/54 09/26/19 08:00 97.0 71 20 90/54 (66) 92 09/26/19 06:00 117/46 09/26/19 04:00 97.1 72 26 117/46 (69) 90 09/26/19 00:14 96.9 84 30 127/55 (79) 91 09/25/19 20:47 137/57 09/25/19 20:32 96.9 84 28 137/57 (83) 90 09/25/19 20:07 Room Air 09/25/19 16:00 98.0 64 19 121/72 (88) 97 09/25/19 13:14 115/67 Intake and Output 09/25/19 09/26/19 19:00 07:00 Intake Total 457.5 ml 465.0 ml Output Total 1400 ml 300 ml Balance -942.5 ml 165.0 ml IV Total 457.5 ml 465.0 ml Output Urine Total 1400 ml 300 ml # Bowel Movements 1 Laboratory Tests 09/26/19 06:20: Sodium Level 140, Potassium Level 3.3L, Chloride Level 104, Carbon Dioxide Level 19L, Anion Gap 17H, Blood Urea Nitrogen 83H, Creatinine 2.6H, Estimat Glomerular Filtration Rate 23.6, Glucose Level 93, Calcium Level 7.1L Height (Feet): 5 Height (Inches): 6.00 Weight (Pounds): 91 General Appearance: no apparent distress, lethargic Cardiovascular: normal rate Respiratory/Chest: decreased breath sounds Abdomen: soft Objective No change Juan Jade MD September 26, 2019 12:15
--- NOTE | 2019-09-26 13:34 | Surgery Progress Note ---
Surgery Progress Note Subjective Additional Comments no acute events electrolytes being replaced dressings changed nutritional status noted pending decision for feeding tube Objective Last 24 Hour Vital Signs Date Time Temp Pulse Resp B/P (MAP) Pulse Ox O2 Delivery O2 Flow Rate FiO2 09/26/19 12:00 97.0 89 20 126/71 (89) 92 09/26/19 09:00 Room Air 09/26/19 08:49 90/54 09/26/19 08:00 97.0 71 20 90/54 (66) 92 09/26/19 06:00 117/46 09/26/19 04:00 97.1 72 26 117/46 (69) 90 09/26/19 00:14 96.9 84 30 127/55 (79) 91 09/25/19 20:47 137/57 09/25/19 20:32 96.9 84 28 137/57 (83) 90 09/25/19 20:07 Room Air 09/25/19 16:00 98.0 64 19 121/72 (88) 97 I&O Intake and Output 09/25/19 09/26/19 19:00 07:00 Intake Total 457.5 ml 465.0 ml Output Total 1400 ml 300 ml Balance -942.5 ml 165.0 ml IV Total 457.5 ml 465.0 ml Output Urine Total 1400 ml 300 ml # Bowel Movements 1 Dressing: dry Wound: clean Cardiovascular: RSR Respiratory: decreased breath sounds Abdomen: soft, non-tender, present bowel sounds Extremities: no cyanosis, other Laboratory Tests Test 09/26/19 06:20 Sodium Level 140 MMOL/L (136-145) Potassium Level 3.3 MMOL/L (3.5-5.1) L Chloride Level 104 MMOL/L (98-107) Carbon Dioxide Level 19 MMOL/L (21-32) L Anion Gap 17 mmol/L (5-15) H Blood Urea Nitrogen 83 mg/dL (7-18) H Creatinine 2.6 MG/DL (0.55-1.30) H Estimat Glomerular Filtration Rate 23.6 mL/min (>60) Glucose Level 93 MG/DL (74-106) Calcium Level 7.1 MG/DL (8.5-10.1) L Plan Problems: (1) Dehydration (2) Anemia (3) UTI (urinary tract infection) (4) Falls frequently (5) Renal failure (ARF), acute on chronic (6) Encephalopathy due to metabolic factor or toxin (7) CHF (congestive heart failure) (8) Gross hematuria (9) Deep tissue injury Assessment & Plan: Pt presented on admission with multiple pressure injuries which were resolving. 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 Base of injury is purple with maroon borders . Surrounding non-blanching erythema to R and Gluteal cheeks. Scrotum is erythematous. R and L heels are boggy but each area blanchable. stable [facility] nursing care will cont to follow and adjust care plan Tx.Plan: Apply Moisture Barrier Paste to Sacrum. Cover with Optifoam drsg. Change every 3 days and prn. Apply Moisture Barrier Paste to bilat groin and scrotum with each incontinence care. Apply Cavilon Skin Barrier to both heels. Cover each heel with Optifoam drsg. Change every 7 days and prn. Reposition at least every 2hours or as tolerated. Off-load heels with pillow. APM/MEI Mattress overlay. (10) Malnutrition Assessment & Plan: DAILY ESTIMATED NEEDS: Needs based on Wound, 66.8kg 28-33 kcals/kg 5878-4776 total kcals 1.25-1.5 g protein/kg 84-100 g total protein 25-30 mL/kg 9008-6508 total fluid mLs NUTRITION DIAGNOSIS: Swallowing difficulty r/t dysphagia and ams as evidenced by s/p BRAKE LINING FINISHER eval, poor cognition, pt on liquify puree texture diet w/ HTL, now with poor/variable intake, high aspiration risk. CURRENT DIET: Liquify puree HTL Regular PO DIET RECOMMENDATIONS: Maintain Regular diet, texture per BRAKE LINING FINISHER ENTERAL NUTRITION RECOMMENDATIONS: CONSULT RD IF NON ORAL FEEDS ARE PART OF PLAN OF CARE ADDITIONAL RECOMMENDATIONS: 1) Ensure Enlive TID w/ meals (350kcal/20g prot per bottle) 2) RECALIBRATE BEDSCALE WT: BIG DISCREPANCY IN WTS initial EMR wt: 160# vs Bed scale wt: 147#-> EMR wt now reads 88.8# 3) CONSIDER APPETITE STIMULANT- prolonged poor PO; NGT feeds if part POC 4) Rec daily bowel regimen: now w/ bm 09/18 4) Wound care: MVI 1 tab QD + Vit C 250mg QD+ Jacob BID 5) Monitor lytes, hydration status, replete as needed-> on replacement + D5 POLST: NO TUBE FEEDINGS AND DNR PER PATIENT. PER HIS HARVESTING CONTRACTOR FRIEND, HARVESTING CONTRACTOR CANNOT MAKE DECISIONS FOR HIM. HE SAID HIS PARTNER LATE LAST YEAR AND HE HAS BEEN AGITATED FOR 3 MONTHS (TAKING DIFFERENT PSYCH MEDS).Pt being seen by PSYCHIATRIST. PLOF: Previously lived at [facility] and consumed regular texture diet and thin liquids w/ no swallowing difficulties per welding teacher. VITALS on 4 L/min via nasal cannula HR: 102 bpm RR: 44 bpm Temp: 102.6 SP02: 97% Pt w/ ongoing poor PO intake of current diet Liquified Puree ([place]-Like Soup) with [place] Thick Liquids. 09/20/19 B: 50% L: 50% D: 50% 09/21/19 B: 50% L: 50% D: 0% 09/22/19 B: 10% L: 10% D: 0% RN reports when attempting to administer Pt meds crushed w/ apple sauce in AM, Pt's swallow appeared incomplete and poor, w/ remaining meds+apple sauce mixture remaining throughout oral cavity. (11) Severe protein-calorie malnutrition Sai Aaron September 26, 2019 13:34
--- NOTE | 2019-09-26 14:47 | NUR ---
CASE MANAGEMENT:REVIEW 09/24/19 SI: UTI . COVID ++++-+ . SMALL BILATERAL PLEURAL EFFUSION . ATELECTASIS . PNEUMONIA 96.3 73 18 98/46 93% ON RA IS: IV ZOSYN BID IV D5@ 75ML/HR LOVENOX SQ QD IMDUR PO QD DEPAKENE NG BID FLOMAX PO BID MIACALCIN NASAL QD PROSCAR PO QD TYLENOL VA Q4HR/PRN \: 4E MED SURG STATUS DCP: [facility] PLAN: CONTROL FEVERS CONT IV ABX HYDRATE CASE MANAGEMENT:REVIEW 09/25/19 SI: UTI . COVID ++++-+ . SMALL BILATERAL PLEURAL EFFUSION . ATELECTASIS . PNEUMONIA 96.9 84 28 137/57 90% ON RA WBC 17.6 H/H 8.8/26 K+ 3.4 BUN/CREAT 79/2.7 URIC ACID 7.5 CA+ 7.4 MG 2.5 AST 57 BNP 7819 ALB 1.4 IS: IV ZOSYN BID IV D5@ 75ML/HR LOVENOX SQ QD IMDUR PO QD DEPAKENE NG BID FLOMAX PO BID MIACALCIN NASAL QD PROSCAR PO QD TYLENOL VA Q4HR/PRN \: 4E MED SURG STATUS DCP: [facility] PLAN: CONT IV ABX HYDRATE WBC INCREASE CASE MANAGEMENT:REVIEW 09/26/19 SI: UTI . COVID ++++-+ . SMALL BILATERAL PLEURAL EFFUSION . ATELECTASIS . PNEUMONIA 97.0 89 20 126/71 92% ON RA K+ 3.3 CO2 19 ANION GAP 176 BUN/CREAT 83/2.6 CA+7.1 IS: IV ZOSYN BID IV D5@ 75ML/HR LOVENOX SQ QD IMDUR PO QD DEPAKENE NG BID FLOMAX PO BID MIACALCIN NASAL QD PROSCAR PO QD TYLENOL VA Q4HR/PRN \: 4E MED SURG STATUS DCP: [facility]
--- NOTE | 2019-09-26 15:00 | NUR ---
*-*INSURANCE*-* UPDATED CLINICALS AND REVIEWS HAVE BEEN FACXED TO: DEE ARAGON:GLENIS P: [phone] F: [phone] REF# [id number]
[2019-09-26 16:00] VITALS: BP 130/72
--- NOTE | 2019-09-26 16:27 | Pulmonology Progress Note ---
Subjective ROS Limited/Unobtainable: No Interval Events: None new reported Constitutional: Reports: fever, other HEENT: Repors: no symptoms Respiratory: Reports: no symptoms Cardiovascular: Reports: no symptoms Gastrointestinal/Abdominal: Denies: nausea, vomiting, diarrhea Genitourinary: Reports: no symptoms; Denies: dysuria, hematuria, frequency, nocturia, urgency, other Neurologic: Reports: no symptoms Musculoskeletal: Denies: no symptoms, pain, swelling, stiffness, other Allergies: Coded Allergies: No Known Allergies (Unverified , 06/05/19) All Systems: reviewed and negative except above Objective Last 24 Hour Vital Signs Date Time Temp Pulse Resp B/P (MAP) Pulse Ox O2 Delivery O2 Flow Rate FiO2 09/26/19 12:00 97.0 89 20 126/71 (89) 92 09/26/19 09:00 Room Air 09/26/19 08:49 90/54 09/26/19 08:00 97.0 71 20 90/54 (66) 92 09/26/19 06:00 117/46 09/26/19 04:00 97.1 72 26 117/46 (69) 90 09/26/19 00:14 96.9 84 30 127/55 (79) 91 09/25/19 20:47 137/57 09/25/19 20:32 96.9 84 28 137/57 (83) 90 09/25/19 20:07 Room Air Intake and Output 09/25/19 09/26/19 19:00 07:00 Intake Total 457.5 ml 465.0 ml Output Total 1400 ml 300 ml Balance -942.5 ml 165.0 ml IV Total 457.5 ml 465.0 ml Output Urine Total 1400 ml 300 ml # Bowel Movements 1 General Appearance: no acute distress HEENT: mucous membranes moist Respiratory/Chest: chest wall non-tender, lungs clear Cardiovascular: normal peripheral pulses Abdomen: soft, non tender Extremities: no edema Neurologic/Psychiatric: alert, disoriented Laboratory Tests 09/26/19 06:20: Sodium Level 140, Potassium Level 3.3L, Chloride Level 104, Carbon Dioxide Level 19L, Anion Gap 17H, Blood Urea Nitrogen 83H, Creatinine 2.6H, Estimat Glomerular Filtration Rate 23.6, Glucose Level 93, Calcium Level 7.1L Current Medications Medications (Trade) Dose Ordered Sig/Kristine Route PRN Reason Start Time Stop Time Status Last Admin Dose Admin Acetaminophen (Tylenol) 650 mg Q4H PRN ORAL Fever 09/09/19 22:30 10/09/19 22:29 09/22/19 05:16 Acetaminophen (Tylenol) 650 mg Q4H PRN RECTAL Mild Pain (Pain Scale 1-3) 09/22/19 09:45 10/22/19 09:44 09/23/19 16:58 Amlodipine Besylate (Norvasc) 5 mg DAILY ORAL 09/25/19 09:00 10/25/19 08:59 09/25/19 09:08 Ascorbic Acid (Vitamin C) 250 mg DAILY ORAL 09/10/19 09:00 10/10/19 08:59 09/26/19 08:49 Bisacodyl (Dulcolax) 10 mg DAILYPRN PRN RECTAL Constipation 09/18/19 17:00 12/17/19 16:59 Calcitonin [place] (Miacalcin) 1 sprays DAILY NASAL 09/12/19 13:00 12/11/19 12:59 09/26/19 08:50 Dextrose/Sodium Chloride 1,000 ml @ 75 mls/hr [id number] IV 09/25/19 10:45 10/25/19 10:44 09/26/19 04:00 Enoxaparin Sodium (Lovenox) 60 mg DAILY SUBQ 09/24/19 09:00 12/23/19 08:59 09/26/19 08:51 Famotidine (Pepcid) 20 mg DAILY ORAL 09/10/19 09:00 12/09/19 08:59 09/26/19 08:49 Finasteride (Proscar) 5 mg DAILY ORAL 09/10/19 09:00 11/05/19 15:44 09/26/19 08:50 Hydralazine HCl (Apresoline) 25 mg Q8HR ORAL 09/24/19 14:00 12/11/19 21:59 09/25/19 20:47 Isosorbide Mononitrate (Imdur) 60 mg DAILY ORAL 09/21/19 09:00 10/21/19 08:59 09/26/19 08:49 Multivitamins (Multivitamins) 1 tab DAILY ORAL 09/10/19 09:00 10/10/19 08:59 09/26/19 08:50 Piperacillin Sod/ Tazobactam Sod 3.375 gm/Sodium Chloride 110 ml @ 27.5 mls/hr Q12H IVPB 09/21/19 18:00 09/28/19 17:59 09/26/19 04:00 Potassium Chloride (K-Dur) 20 meq TWICE A DAY ORAL 09/26/19 12:15 09/27/19 12:14 09/26/19 13:06 Tamsulosin HCl (Flomax) 0.4 mg BID ORAL 09/12/19 12:00 10/06/19 20:59 09/26/19 08:49 Valproic Acid (Depakene) 250 mg EVERY 12 HOURS NG 09/09/19 21:00 10/22/19 20:59 09/26/19 08:49 Assessment/Plan Assessment/Plan IMPRESSION: 1. Pleural effusions, small bilateral. 2. Atelectasis. 3. Pulmonary edema, questionable. 4. Hypertension. 5. Hyperlipidemia. 6. positive COVID 19 7. 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 No new recommendations Rodrigo Nazario Omar Syed MD September 26, 2019 16:27
--- NOTE | 2019-09-26 18:02 | General Progress Note ---
Assessment/Plan Problem List: (1) CHF (congestive heart failure) ICD Codes: I50.9 - Heart failure, unspecified SNOMED: 84340071 (2) Renal failure (ARF), acute on chronic ICD Codes: N17.9 - Acute kidney failure, unspecified; N18.9 - Chronic kidney disease, unspecified SNOMED: 633001270 (3) Encephalopathy due to metabolic factor or toxin SNOMED: 175754869 (4) Gross hematuria ICD Codes: R31.0 - Gross hematuria SNOMED: 235258925 (5) Falls frequently ICD Codes: R29.6 - Repeated falls SNOMED: 697231839 (6) Dehydration ICD Codes: E86.0 - Dehydration SNOMED: 44739056 (7) UTI (urinary tract infection) ICD Codes: N39.0 - Urinary tract infection, site not specified SNOMED: 94583617 (8) Anemia ICD Codes: D64.9 - Anemia, unspecified SNOMED: 121256042 Status: stable, progressing, not improved Assessment/Plan: o2 as needed. titrate to keep sats >92 fall precautions. monitor cxr follow up cultures monitor bmp and lytes ivf increased replace k Anxiolytics as needed. Continue blood pressure treatment. DVT and stress ulcer prophylaxis. tylenol for fevers ID follow up repeat cxr POA is going to check pts advanced directed regarding feeding tubes Subjective ROS Limited/Unobtainable: No Constitutional: Reports: malaise, weakness HEENT: Reports: no symptoms Cardiovascular: Reports: no symptoms Respiratory: Reports: cough Gastrointestinal/Abdominal: Reports: difficulty swallowing, poor fluid intake Genitourinary: Reports: no symptoms Neurologic/Psychiatric: Reports: anxiety, emotional problems, pre-existing deficit Endocrine: Reports: no symptoms Hematologic/Lymphatic: Reports: anemia Allergies: Coded Allergies: No Known Allergies (Unverified , 06/05/19) All Systems: reviewed and negative except above Subjective no events. stable on room air. taking pos. labs noted. worsening azotemia. on ivf, Na better. on abx. Objective Last 24 Hour Vital Signs Date Time Temp Pulse Resp B/P (MAP) Pulse Ox O2 Delivery O2 Flow Rate FiO2 09/26/19 16:00 98.0 88 20 130/72 (91) 99 09/26/19 12:00 97.0 89 20 126/71 (89) 92 09/26/19 09:00 Room Air 09/26/19 08:49 90/54 09/26/19 08:00 97.0 71 20 90/54 (66) 92 09/26/19 06:00 117/46 09/26/19 04:00 97.1 72 26 117/46 (69) 90 09/26/19 00:14 96.9 84 30 127/55 (79) 91 09/25/19 20:47 137/57 09/25/19 20:32 96.9 84 28 137/57 (83) 90 09/25/19 20:07 Room Air Intake and Output 09/25/19 09/26/19 19:00 07:00 Intake Total 457.5 ml 465.0 ml Output Total 1400 ml 300 ml Balance -942.5 ml 165.0 ml IV Total 457.5 ml 465.0 ml Output Urine Total 1400 ml 300 ml # Bowel Movements 1 Laboratory Tests 09/26/19 06:20: Sodium Level 140, Potassium Level 3.3L, Chloride Level 104, Carbon Dioxide Level 19L, Anion Gap 17H, Blood Urea Nitrogen 83H, Creatinine 2.6H, Estimat Glomerular Filtration Rate 23.6, Glucose Level 93, Calcium Level 7.1L Height (Feet): 5 Height (Inches): 6.00 Weight (Pounds): 91 Objective General Appearance: WD/WN, alert, confused Neck: supple Cardiovascular: regular rhythm Respiratory/Chest: rhonchi - bilaterally Abdomen: normal bowel sounds, non tender, soft, no organomegaly, no mass Edema: no edema noted Arm (L), no edema noted Arm (R), no edema noted Leg (L), no edema noted Leg (R), no edema noted Pedal (L), no edema noted Pedal (R), no edema noted Generalized Neurologic: relationship assoc II-XII grossly normal, alert, responsive Iggy Echavarria MD September 26, 2019 18:02
[2019-09-26] MEDS ORDERED: D5NS 1,000 ML IV SCH (19:00)
--- NOTE | 2019-09-26 19:35 | NUR ---
NURSE NOTES: Receive pt in the bed. Pt is sleeping, breathing and comfortable. pt has Trevino catheter and Iv on his right hand both asymptomatic. bed is in the lower position, locked ,and alarm on. Call light within reach. we will keep monitoring.
--- NOTE | 2019-09-26 19:48 | NUR ---
HAND-OFF: Report given to LUIS FERNANDO Pineda.
--- NOTE | 2019-09-26 20:15 | NUR ---
PRONOUNCEMENT: No Code. Called to pronounce patient. Absence of spontaneous respirations, no cardiac or breath sounds on auscultation. Pupils fixed and dilated. No carotid pulse or chest movement. Patient at 2014.Per LUIS FERNANDO Pineda, was notified @ 2054 about the expiration. [facility] Airport Manager Vitor Munguia was notified at 2109.
--- NOTE | 2019-09-26 20:15 | NUR ---
KIM went to pt room to take a vital sign and she notice the pt is not breathing. She notified me and the charge nurse, we both went to the pt room after applying PPE. We checked his pulse and auscultate his lung sound but pt has no pulse and he is not breathing. Pt pronounced at 09/26/2019 20:15. Addendum: 09/26/19 at 2236 by LA IRVING RN discard the note above
--- NOTE | 2019-09-26 20:15 | NUR ---
NURSE NOTES: SENIOR BI DEVELOPER went to pt room to take a vital sign and she notice the pt is not breathing. She notified me and the charge nurse, we both went to the pt room after applying PPE. We checked his pulse and auscultate his lung sound but pt has no pulse and he is not breathing. Pt pronounced at 09/26/2019 20:15.
--- NOTE | 2019-09-26 21:30 | NUR ---
NURSE NOTES: After the pt pronounced , I Notified the doctor and the doctor called the pt journeyman painter Vitor Munguia. After the doctor talked the journeyman painter, i called the journeyman painter to ask him the plan for the body. The journeyman painter told me to send the body to [facility] and he will call [facility] tomorrow to case picker the body. I called [facility] and talked to Lilia; the pt is cleared from [facility] and they gave me DNN number [id number].
--- NOTE | 2019-09-26 23:19 | NUR ---
Security came and we took the body to the mortuary. Pt belonging is with the body.
--- NOTE | 2019-09-27 06:15 | Progress Note ---
DATE: 09/26/2019 SUBJECTIVE: The patient remains on room air in no respiratory distress. Oral intake is fair but inadequate. Durable power of employment law attorney is determining whether feeding tube placement would be consistent with the patient's wishes. PHYSICAL EXAMINATION: VITAL SIGNS: Blood pressure 126/71, pulse 89, respiratory rate 20, afebrile, room air oxygen saturation is 90% to 92%. LUNGS: Few rhonchi. No wheezing. CARDIAC: Irregularly irregular rhythm. Normal S1, S2. A 1/6 systolic apical murmur. ABDOMEN: Soft. EXTREMITIES: No edema. Sodium 140, potassium 3.3, bicarb 19, BUN 83, and creatinine 2.6. IMPRESSION: 1. COVID-19 pneumonia. 2. Acute on chronic diastolic congestive heart failure. 3. Chronic atrial fibrillation. 4. Conduction system disease. 5. Valvular heart disease with mitral regurgitation. 6. Severe pulmonary hypertension. 7. Acute on chronic renal failure. PLAN: 1. Additional IV hydration, potassium replacement. 2. Follow up magnesium level. 3. Encourage oral intake. 4. Respiratory hygiene. Titrating anti-failure regimen based on clinical parameters. 5. Remains high risk. Gamaliel Salas M.D. DR: MAXIMINO JOB#: [id number] CC:
--- NOTE | 2019-09-27 15:48 | NUR ---
*-*INSURANCE*-* UPDATED CLINICALS AND REVIEWS HAVE BEEN FACXED TO: DEE ARAGON:GLENIS P: [phone] F: [phone] REF# [id number] Addendum: 09/27/19 at 1548 by CHERYL FITZGERALD CM NO DISCHARGE SUMMARY IN THE SYSTEM UNABLE TO FAX
--- NOTE | 2019-09-27 22:12 | Discharge Summary ---
Discharge Summary Discharge Summary _ SUMMARY DATE OF ADMISSION: 08/06/2019 DATE OF EXPIRATION: 09/26/2019 REASON FOR ADMISSION: [] 83 years old male, with past medical history of CVA, coronary artery disease , atrial fibrillation, hyperlipidemia, status post mitral valve repair, hypertension, hypercholesterolemia, dementia, presented from assisted living after he sustained a fall. Upon evaluation CT of the head revealed no evidence of acute intracranial bleeding or mass-effect. Chest x-ray revealed incipient congestive heart failure. Laboratory work-up revealed leukocytosis WBC 15.3, anemia hemoglobin 8.6 hematocrit 25.1 lymphopenia. Chemistry showed evidence of renal failure with a BUN 54, creatinine 2.8. Glucose 115. Urinalysis revealed gross hematuria, borderline pyuria and occasional bacteria. EKG revealed atrial fibrillation with controlled ventricular response. Patient is a DNR status with limited intervention. Vital signs were stable. Patient admitted for further work-up and management. CONSULTANTS: seed laboratory technician Nursing Informatics Analyst gambreler Dr. Reyes neurologist pulmonary Dr. simon seen ID specialist Dr. Stephens Urologist Dr. Calzada projection printer Dr. Jade rotary drum dyer/oncologist surgery Dr. Aaron psychiatrist [facility] COURSE: Patient admitted and started IV hydration volume were closely monitored. Patient started on empiric antibiotic for possible pneumonia. Venous duplex bilateral lower extremity revealed no evidence of acute DVT. Supplemental oxygen provided and titrated to keep pulse oximetry above 92%. Pulmonary toilet provided. Patient required nasal cannula patient was follow- up with a chest x-ray echocardiogram demonstrated preserved ejection fraction of 60 to 65%. No evidence of wall motion abnormality to the extent visualized. Elevated left atrial pressure. Moderate to severe tricuspid regurgitation. Right ventricular systolic pressure of 93 consistent with severe pulmonary hypertension. Urologist seen patient for gross hematuria most likely secondary to Trevino trauma. Existing Trevino catheter was apparently not in the bladder. Urologist attempted to irrigate it was unsuccessful the catheter was removed urethra was gently dilated and urologist was able to pass a 20 Indonesian chordee catheter into the bladder with return of blood-tinged urine. Subsequently the catheter was sent irrigated with normal saline and urine was slowly clear with minimal clots. No active bleeding. Advertising Analyst recommended hand irrigate every few hours initially and as needed. Patient continued the Flomax. Anticoagulation which patient was initially was hold. Proscar also added to medication regimen. Influenza swab was negative. Urine culture revealed Pseudomonas and Raoultella. Antibiotic regimen optimized as per ID specialist recommendation patient was tested for far for COVID-19. Sciatic cough 2 by PCR on 414 came back detected patient was in isolation kept in isolation repeated cycles 2 by PCR on 416 was negative. 422 was positive for 27+. Status post 2 by PCR on 429 with nondetected and detected back on 09/18/2019. Patient continued to be on isolation. Patient completed treatment for UTI. Repeated UTI showed Morganella enterococcus VRE and mixed urogenital contaminants. Patient continued to have initial leukocytosis leukocytosis initially resolved patient had leukopenia but and started to have leukocytosis. Antibiotic continued as per ID specialist recommendation. Renal parameters electrolytes were closely monitored. Electrolytes corrected as needed nephrotoxic's were avoided. Per projection printer acute renal failure was likely due to dehydration. Creatinine initially improved but started to trend up again. Hemoglobin hematocrit were closely monitored with goal to keep hemoglobin above 7 patient received 1 unit of packed red blood cells while in the hospital. Patient noted to have minimally elevated troponin 0 0.093. Telemetry showed junctional cardiac return paroxysmal atrial fibrillation patient also noted to have bifascicular heart block and tachybradycardia syndrome. Cardiology electrophysiology consult was requested for a possible indication of pacemaker in view of advanced conduction system disease and recurrent falls. Antihypertensive further titrated. Orthostatics were closely monitored. Tight blood pressure control was avoided. Cardiac rhythm appeared to be junctional time in sinus rhythm with a first- degree AV block at times. No bradycardia noted. Media Liaison Officer recommended continue telemetry monitoring. No need for pacemaker at this time. Cardiac gambreler recommended prolonged total patient rate management. Cardiovascular regimen was titrated as per seed laboratory technician. Patient undergone bedside swallow evaluation and video swallow evaluation. The later revealed high silent aspiration risk. Diet provided as per speech therapist recommendation diet texture provided as per speech therapist recommendation with strict aspiration precaution and one-to-one feeding. Protein supplements implemented and plan of care as per registered dietitian recommendation. Psychiatric medication regimen was optimized as per psychiatrist. Patient was slowly deteriorating. Patient was pronounced at 2014 511. Cause of :cardiopulmonary arres1 FINAL DIAGNOSES: Confirmed COVID-19 infection COVID-19 pneumonia Urinary tract infection Renal failure, acute on chronic Hypertension Leukocytosis Frequent falls Anemia Dehydration and hypovolemia Valvular cardiomyopathy Acute on chronic diastolic congestive heart failure Hypertensive heart disease Mitral valve regurgitation ,status post repair Severe pulmonary hypertension Paroxysmal atrial fibrillation Conduction system disease Junctional cardiac rhythm Conduction system disease Toxic metabolic encephalopathy Gross hematuria ,presumably secondary to Trevino trauma BPH Neurogenic bladder Severe protein calorie malnutrition. Urinary retention Dementia with behavioral disturbances Psychotic disorder I have been assigned to dictate discharge summary for this account. I was not involved in the patient's management. Yesy Pratt NP September 27, 2019 22:12
== END 2019-09-26 20:15 | disposition expired | DRG 682 ==
LOC: EDBD 01:50 → EMR 02:01 → 2E 03:38 → EDBEDREQ 03:51 → EDBEDREQSVC 03:59 → EDBEDREQ 05:53 → 4E 08-15 22:53 → 3E 08-21 16:50 → 2E 08-28 18:05 → 4E 09-09 12:59
PROC: 0T7D7ZZ Dilation of Urethra, Via Natural or Artificial Opening (ICD-10-PCS; principal; 2019-08-07)
DX: N17.9 Acute kidney failure, unspecified (principal); G92 Toxic encephalopathy; I50.33 Acute on chronic diastolic (congestive) heart failure; U07.1 COVID-19; J12.89 Other viral pneumonia; E43 Unspecified severe protein-calorie malnutrition; N39.0 Urinary tract infection, site not specified; I13.0 Hypertensive heart and chronic kidney disease with heart failure and stage 1 through stage 4 chronic kidney disease, or unspecified chronic kidney disease; F03.91 Unspecified dementia, unspecified severity, with behavioral disturbance; J98.11 Atelectasis; S37.39XA Other injury of urethra, initial encounter; Z68.1 Body mass index [BMI] 19.9 or less, adult; I42.8 Other cardiomyopathies; E87.0 Hyperosmolality and hypernatremia; E86.0 Dehydration; N18.9 Chronic kidney disease, unspecified; D64.9 Anemia, unspecified; B96.5 Pseudomonas (aeruginosa) (mallei) (pseudomallei) as the cause of diseases classified elsewhere; Z66 Do not resuscitate; S00.01XA Abrasion of scalp, initial encounter; W19.XXXA Unspecified fall, initial encounter; Z91.81 History of falling; Y92.129 Unspecified place in nursing home as the place of occurrence of the external cause; E78.5 Hyperlipidemia, unspecified; Z86.73 Personal history of transient ischemic attack (TIA), and cerebral infarction without residual deficits; I25.10 Atherosclerotic heart disease of native coronary artery without angina pectoris; R31.0 Gross hematuria; X50.9XXA Other and unspecified overexertion or strenuous movements or postures, initial encounter; N40.1 Benign prostatic hyperplasia with lower urinary tract symptoms; R33.8 Other retention of urine; N31.9 Neuromuscular dysfunction of bladder, unspecified; I48.0 Paroxysmal atrial fibrillation; F32.9 Major depressive disorder, single episode, unspecified; L89.156 Pressure-induced deep tissue damage of sacral region; I34.0 Nonrheumatic mitral (valve) insufficiency; E83.52 Hypercalcemia; R09.02 Hypoxemia; E87.6 Hypokalemia; E87.8 Other disorders of electrolyte and fluid balance, not elsewhere classified
CPT/HCPCS: 36415; 36600; 70450; 71045; 74230; 80048; 80053; 80061; 80076; 81001; 81003; 82330; 82550; 82607; 82728; 82746; 82803; 82962; 82977; 83036; 83540; 83550; 83615; 83735; 83880; 84100; 84300; 84443; 84484; 84550; 85007; 85025; 85379; 86140; 86710; 86850; 86900; 86901; 86920; 87081; 87086; 87181; 87635; 90689; 90732; 92610; 93005; 93306; 93970; 94664; 96361; 96365; 96375; 99285; C9399; J2430; J7030; J8499